=== PATIENT | female | born 1990 | race Caucasian/White ===

== ENCOUNTER 2023-12-26 17:11 | Emergency (ER) | payer MEDICAID, SELFPAY ==
[2023-12-26 17:19] VITALS: BP 150/82; PULSE 100; TEMP 36.8; O2SAT 99; BMI 43.2
[2023-12-26 17:49] VITALS: BP 153/97; PULSE 92; O2SAT 99
--- NOTE | 2023-12-26 18:03 | CT_ITS ---
The [address] [address] Patient Name: TRINY SAMUELS MRN: [id number] date: 1990 Sex: F Assigned Patient Location: ER Current Patient Location: ER Accession/Order Number: [id number] Exam Date: 12/26/2023 18:46 Report Date: 12/26/2023 20:22 At the request of: TISH FAIR Procedure: CT abdomen pelvis w con EXAM: CT abdomen pelvis w con HISTORY: Left flank/hip pain for 3 weeks. COMPARISON: 10/22/2012. TECHNIQUE: Enhanced helical acquisition obtained through the abdomen and the pelvis. FINDINGS: The visualized lung bases and the pleural spaces are clear. Prior cholecystectomy. No significant biliary ductal dilatation. The liver, spleen, pancreas, adrenal glands and the right kidney are unremarkable. 3 mm nonobstructing calculus within the superior left kidney. No enlarged lymph nodes within the abdomen or the pelvis. Small volume of free fluid within the pelvis. Normal appendix. Complex cystic structure within the left adnexa which maximally measures approximately 3.5 cm with configuration suggesting either fluid-filled dilated fallopian tube versus multiloculated cyst. CT/CT abdomen pelvis w con IMPRESSION: 1. A 3.5 cm complex left adnexal cystic structure is present. This may be secondary to multiloculated left ovarian cyst versus dilated fluid-filled fallopian tube. Follow-up assessment with ultrasonography of the pelvis is recommended. 2. Small volume of free fluid within the pelvis. 3. Subcentimeter nonobstructing left renal calculus. Electronically authenticated by: VAMSHI HUNG Date: 12/26/2023 20:22
--- NOTE | 2023-12-26 18:04 | ED_ITS ---
HPI HPI - General Adult General Chief complaint: Abdominal Pain Stated complaint: LEFT ABDOMINAL PAIN/SWELLING Time Seen by Provider: 12/26/23 17:55 Source: patient Mode of arrival: walk-in Limitations: no limitations History of Present Illness HPI narrative: This patient is a 33-year-old female who presents to the emergency department with 2 family members for evaluation of left hip and flank pain. She states symptoms have been present for the last 3 weeks. She has not been evaluated by her primary care provider. She states she has not sought care anywhere else. She denies any mechanism of injury or trauma. She initially reported abdominal pain to the triage nurse but on directly questioning, she points to pain over the left lateral hip and left posterior hip. Pain is significantly worse with movement. She has been using [id number] medications without improvement. She denies a possibility of . She has no abdominal pain, urinary symptoms, vomiting or diarrhea at this time. Related Data Previous Rx's ?Medication ?Instructions ?Recorded ciprofloxacin HCl 500 mg tablet 500 mg PO Q12H #14 tabs 12/26/23 ketorolac 10 mg tablet 10 mg PO TID PRN pain #10 tabs 12/26/23 ondansetron 4 mg disintegrating 4 mg PO Q6H PRN nausea and 12/26/23 tablet vomiting #12 tabs oxycodone-acetaminophen 5 mg-325 1 tab PO Q6H PRN pain 3 days #15 12/26/23 mg tablet (Percocet) tabs Allergies Allergy/AdvReac Type Severity Reaction Status Date / Time No Known Drug Allergies Allergy Verified 12/26/23 17:18 Opioid HPI Opioid Management Most Recent Opioid Data: Last Pain Scale 10 12/26/23 20:26 12/26/23 Review of Systems ROS Constitutional Denies: fever or chills Ears, nose, mouth, and throat Denies: throat pain or nasal congestion Cardiovascular Denies: chest pain Respiratory Denies: shortness of breath Gastrointestinal Denies: abdominal pain, nausea, vomiting or diarrhea Genitourinary Denies: painful urination Musculoskeletal Reports: joint pain; Denies: back pain, neck pain or extremity pain Integumentary/Breast Denies: rash Neurological Denies: numbness in extremities or weakness in extremities Hematologic/Lymphatic Denies: easy bruising or easy bleeding PFSH PFSH Social History (Reviewed 12/26/23 @ 18:06 by MELECIO Cabello Little interest or pleasure in doing things: not at all Feeling down, depressed, or hopeless: not at all Exam Narrative Exam Narrative: Gen.: Awake, alert, in no distress Head: Normocephalic, atraumatic ENT: Moist mucous membranes Respiratory: No respiratory distress Gastrointestinal: Abdomen is soft, nondistended and nontender to palpation; no guarding or rebound Back: No bony tenderness of the T-spine or L-spine with diffuse tenderness of the left lateral hip and left posterior hip. Pain with hip flexion of the left lower extremity. No bony point tenderness or obvious deformity. Pelvis is stable. Extremities: Moves extremities equally, pain with flexion and extension at the left lower extremity Psych: Normal mood and affect Neuro: No focal neuro deficit Skin: Warm, dry, intact Constitutional Vital Signs, click to edit/add: Last Vital Signs Temp 98.3 F 12/26/23 17:19 Pulse 86 12/26/23 20:32 Resp 18 12/26/23 20:32 BP 128/96 H 12/26/23 20:32 Pulse Ox 99 12/26/23 20:32 O2 Del Method Room Air 12/26/23 20:32 Course Vital Signs Vital signs: Vital Signs Temperature 98.3 F 12/26/23 17:19 Pulse Rate 100 H 12/26/23 17:19 Respiratory Rate 18 12/26/23 17:19 Blood Pressure 150/82 H 12/26/23 17:19 Pulse Oximetry 99 12/26/23 17:19 Oxygen Delivery Method Room Air 12/26/23 17:19 Temperature 98.3 F 12/26/23 17:19 Pulse Rate 86 12/26/23 20:32 Respiratory Rate 18 12/26/23 20:32 Blood Pressure 128/96 H 12/26/23 20:32 Pulse Oximetry 99 12/26/23 20:32 Oxygen Delivery Method Room Air 12/26/23 20:32 Medical Decision Making MDM Narrative Medical decision making narrative: Laboratory studies reviewed and noted showing the patient has a contaminated urinary tract infection, mild leukocytosis with no other acute process. CT of the abdomen and pelvis shows the patient has a 3.5 cm adnexal cystic mass, ultrasound was performed while we were waiting for the CT to result, this shows a 3.5 cm multiloculated ovarian cyst with no evidence of fluid in the fallopian tube. Patient has essentially no abdominal pain in the ER but does continue to complain of left hip pain and posterior pelvic pain. Cyst may be hemorrhagic. Although there is no evidence of active bleeding at this time. She was treated for pain, remedicated for pain and treated for urinary tract infection in the ER. She will be discharged home with pain medication, antibiotics, nausea medication and anti-inflammatories to follow-up with her [employer]. Return to the ER if symptoms change or worsen. Hemodynamically stable at time of discharge. SUPERVISED APC VISIT, PHYSICIAN ATTESTATION: Based on the medical record the care appears appropriate. ? Medical Records Medical records reviewed: Yes I reviewed the patient's medical records Lab Data Lab results reviewed: Yes I reviewed the patient's lab results Labs: Lab Results 12/26/23 12/26/23 Range/Units 18:11 18:12 WBC 13.5 H (4.0-11.0) 10^3/uL RBC 4.25 (4.20-5.40) 10^6/uL Hgb 12.9 (12.0-16.0) g/dL Hct 38.6 (36.0-48.0) % MCV 90.8 (81.0-99.0) fL MCH 30.4 (26.7-34.0) pg MCHC 33.4 (29.9-35.2) g/dL RDW 12.5 (11.0-15.0) % Plt Count 235 (150-450) 10^3/uL MPV 9.1 L (9.5-13.5) fL Neut % (Auto) 64.1 (43.0-75.0) % Lymph % (Auto) 27.4 (20.5-60.0) % [place] % (Auto) 6.2 (1.7-12.0) % Eos % (Auto) 1.4 (0.9-7.0) % Baso % (Auto) 0.4 (0.2-2.0) % Neut # (Auto) 8.7 H (1.4-6.5) 10^3/uL Lymph # (Auto) 3.7 (1.2-3.8) 10^3/uL [place] # (Auto) 0.8 (0.3-0.8) 10^3/uL Eos # (Auto) 0.2 (0.0-0.7) 10^3/uL Baso # (Auto) 0.1 (0.0-0.1) 10^3/uL Abs Immat Gran (auto) 0.07 H (0.00-0.03) 10^3/uL Imm/Tot Granulo (auto) 0.5 (0.0-0.5) % Sodium 140 (136-145) mmol/L Potassium 3.6 (3.5-5.1) mmol/L Chloride 102 (98-107) mmol/L Carbon Dioxide 24.2 (21.0-32.0) mmol/L Anion Gap 17.4 BUN 15.0 (7.0-18.0) mg/dL Creatinine 0.87 (0.55-1.02) mg/dL Est GFR ( Amer) >60 (>=60 mL/min/1.73m^2) Est GFR (Non-Af Amer) >60 (>=60 mL/min/1.73m^2) BUN/Creatinine Ratio 17.2 Glucose 112 H (74-106) mg/dL Lactate 0.8 (0.4-2.0) mmol/L Calcium 8.4 L (8.5-10.1) mg/dL Total Bilirubin 0.4 (0.2-1.0) mg/dL AST 19 (15-37) U/L ALT 27 (14-59) U/L Alkaline Phosphatase 142 H (46-116) U/L Total Protein 7.6 (6.4-8.2) g/dL Albumin 3.3 L (3.4-5.0) g/dL Globulin 4.3 g/dL Albumin/Globulin Ratio 0.8 Serum HCG, Qual Negative (NEGATIVE) Urine Color Lt. yellow (YELLOW) Urine Clarity Sl cloudy (CLEAR) Urine pH 6.5 (5.0-9.0) Ur Specific [place] 1.025 (1.005-1.025) Urine Protein Negative (NEG/TRACE) mg/dL Urine Glucose (UA) Negative (NEGATIVE) mg/dL Urine Ketones Negative (NEGATIVE) mg/dL Urine Occult Blood Small A (NEGATIVE) Urine Nitrite Negative (NEGATIVE) Urine Bilirubin Negative (NEGATIVE) Urine Urobilinogen 0.2 (0.2-1.0) EU/dL Ur Leukocyte Esterase Small A (NEGATIVE) Urine RBC 2-5 A (0-2) #/HPF Urine WBC 20-50 A (NONE SEEN) #/HPF Ur Squamous Epith Cells Many A (NONE/RARE) #/LPF Urine Crystals None seen (None Seen) #/HPF Urine Bacteria Moderate A (NONE SEEN) #/HPF Urine Casts None seen (NONE SEEN) #/LPF Urine Mucus Small A (NONE SEEN) Ur Culture Indicated? Yes Imaging Data CT scan - abdomen: Attestation: I have reviewed the pertinent imaging results. Radiologist's impression: ITS Impressions Abdomen/Pelvis CT 12/26/23 18:03 IMPRESSION: 1. A 3.5 cm complex left adnexal cystic structure is present. This may be secondary to multiloculated left ovarian cyst versus dilated fluid-filled fallopian tube. Follow-up assessment with ultrasonography of the pelvis is recommended. 2. Small volume of free fluid within the pelvis. 3. Subcentimeter nonobstructing left renal calculus. Electronically authenticated by: VAMHSI HUNG Date: 12/26/2023 20:22 Transvaginal US 12/26/23 19:31 IMPRESSION: 1. No acute sonographic abnormalities in the pelvis. 2. Left adnexal complex cyst. These may represent hemorrhagic cysts. Recommend follow-up ultrasound in 2-3 months to ensure resolution. Electronically authenticated by: DEVORAH LAZARO Date: 12/26/2023 21:24 Discharge Plan Discharge Chief Complaint: Abdominal Pain Clinical Impression: Complex cyst of left ovary, UTI (urinary tract infection) Patient Disposition: Home, Self-Care Time of Disposition Decision: 20:19 Condition: Good Prescriptions / Home Meds: New ciprofloxacin HCl 500 mg tablet 500 mg PO Q12H Qty: 14 0RF ketorolac 10 mg tablet 10 mg PO TID PRN (Reason: pain) Qty: 10 0RF oxycodone-acetaminophen [Percocet] 5-325 mg tablet 1 tab PO Q6H PRN (Reason: pain) 3 Days Qty: 15 0RF Rx Instructions: DX: N83.20 ondansetron 4 mg tablet,disintegrating 4 mg PO Q6H PRN (Reason: nausea and vomiting) Qty: 12 0RF Print Language: Lao Instructions: Ovarian Cyst (ED), Urinary Tract Infection in Women (ED) Referrals: Physician,Non-Staff, MD [Primary Care Provider] - 1 week Discharge Date/Time: 12/26/23 20:38
[2023-12-26 18:18] LABS: Basophils Absolute Auto 0.1 10^3/uL (0.0-0.1); Basophils Percent Auto 0.4 % (0.2-2.0); Eosinophils Absolute Auto 0.2 10^3/uL (0.0-0.7); Eosinophils Percent Auto 1.4 % (0.9-7.0); Hematocrit 38.6 % (36.0-48.0); Hemoglobin 12.9 g/dL (12.0-16.0); Immature Granulocytes Abs Auto 0.07 10^3/uL (0.00-0.03); Immature Granulocytes Pct Auto 0.5 % (0.0-0.5); Lymphocytes Absolute Auto 3.7 10^3/uL (1.2-3.8); Lymphocytes Percent Auto 27.4 % (20.5-60.0); Mean Corpuscular HGB Conc 33.4 g/dL (29.9-35.2); Mean Corpuscular Hemoglobin 30.4 pg (26.7-34.0); Mean Corpuscular Volume 90.8 fL (81.0-99.0); Mean Platelet Volume 9.1 fL (9.5-13.5); Monocytes Absolute Auto 0.8 10^3/uL (0.3-0.8); Monocytes Percent Auto 6.2 % (1.7-12.0); Neutrophils Absolute Auto 8.7 10^3/uL (1.4-6.5); Neutrophils Percent Auto 64.1 % (43.0-75.0); Platelet Count 235 10^3/uL (150-450); Red Blood Count 4.25 10^6/uL (4.20-5.40); Red Cell Distribution Width 12.5 % (11.0-15.0); White Blood Count 13.5 10^3/uL (4.0-11.0)
[2023-12-26 18:19] LABS: Bilirubin Urine NEGATIVE (NEGATIVE); Blood Urine SMALL (NEGATIVE); Clarity Urine SL CLOUDY (CLEAR); Color Urine LT. YELLOW (YELLOW); Glucose Urine UA NEGATIVE (NEGATIVE); Ketones Urine NEGATIVE (NEGATIVE); Leukocyte Esterase Urine SMALL (NEGATIVE); Nitrite Urine NEGATIVE (NEGATIVE); Protein Urine NEGATIVE (NEG/TRACE); Specific Gravity Urine 1.025 (1.005-1.025); Urobilinogen Urine 0.2 EU/dL (0.2-1.0); pH Urine 6.5 (5.0-9.0)
[2023-12-26 18:20] LABS: Urine Microscopic Indicated YES
[2023-12-26 18:26] LABS: Bacteria Urine MODERATE #/HPF (NONE SEEN); Cast Seen? NONE SEEN #/LPF (NONE SEEN); Crystals Seen? None Seen #/HPF (None Seen); Mucus Urine SMALL (NONE SEEN); Squamous Epithelial Cell Urine MANY #/LPF (NONE/RARE); Urine Culture Indicated YES; WBC Urine 20-50 #/HPF (NONE SEEN)
[2023-12-26 18:32] LABS: HCG Qualitative NEGATIVE (NEGATIVE); Internal Control Within Normal Limits
[2023-12-26 18:33] LABS: Alanine Aminotransferase 27 U/L (14-59); Albumin Globulin Ratio 0.8; Albumin Level 3.3 g/dL (3.4-5.0); Alkaline Phosphatase 142 U/L (46-116); Anion Gap 17.4; Aspartate Amino Transferase 19 U/L (15-37); BUN Creatinine Ratio 17.2; Bilirubin Total 0.4 mg/dL (0.2-1.0); Calcium 8.4 mg/dL (8.5-10.1); Carbon Dioxide 24.2 mmol/L (21.0-32.0); Chloride 102 mmol/L (98-107); Estimated GFR (African America >60 (>=60 mL/min/1.73m^2); Estimated GFR (Non-African Ame >60 (>=60 mL/min/1.73m^2); Globulin 4.3 g/dL; Glucose 112 mg/dL (74-106); Potassium 3.6 mmol/L (3.5-5.1); Sodium 140 mmol/L (136-145); Total Protein 7.6 g/dL (6.4-8.2)
[2023-12-26 18:38] LABS: Lactate/Lactic Acid 0.8 mmol/L (0.4-2.0)
[2023-12-26] MEDS: KETOROLAC TROMETHAMINE 30 MG/ML VIAL IVP (18:38)
[2023-12-26] MEDS: ORPHENADRINE 60 MG/ 2 ML VIAL IV (18:39)
[2023-12-26] MEDS: MORPHINE SULFATE 4 MG/ML VIAL IV (18:39)
--- NOTE | 2023-12-26 19:31 | US_ITS ---
The [address] [address] Patient Name: TRINY SAMUELS MRN: [id number] date: 1990 Sex: F Assigned Patient Location: ER Current Patient Location: Accession/Order Number: [id number] Exam Date: 12/26/2023 19:48 Report Date: 12/26/2023 21:24 At the request of: TISH FAIR Procedure: US pelvis transvaginal EXAM: Pelvic ultrasound ultrasound CLINICAL INDICATION: ovarian cyst/ left pelvic pain. COMPARISON: CT scan from today TECHNIQUE: Transvaginal pelvic ultrasound was performed with grayscale and color Doppler images were obtained. FINDINGS: Uterus: Uterus measures 8.2 x 4.1 x 4.4 cm. No abnormal uterine masses. Endometrium measures 12 mm thickness. Nabothian cysts. Right ovary was unable to be visualized due to overlying bowel gas. Left ovary: Measures 3.8 x 3.7 x 3.6 cm. Normal color flow and Doppler arterial and venous waveforms. No ovarian masses. Left ovarian cystic lesions, largest of these measures up to 3.1 x 2.0 x 3.0 cm and has heterogenous internal echoes. No internal vascularity evident within the cystic lesions on the provided images. Small amount of free fluid in the pelvis. US/US pelvis transvaginal IMPRESSION: 1. No acute sonographic abnormalities in the pelvis. 2. Left adnexal complex cyst. These may represent hemorrhagic cysts. Recommend follow-up ultrasound in 2-3 months to ensure resolution. Electronically authenticated by: DEVORAH LAZARO Date: 12/26/2023 21:24
[2023-12-26] MEDS: HYDROMORPHONE HCL 0.5 MG/0.5 ML SYRINGE IV (20:26)
[2023-12-26] MEDS: CIPROFLOXACIN HCL 500 MG TABLET PO (20:27)
[2023-12-26 20:32] VITALS: BP 128/96; PULSE 86; O2SAT 99
== END 2023-12-26 20:38 | disposition home or self-care (01) ==
PROVIDERS: Physician Assistant; Emergency Provider Emergency Medicine Emergency Medical Services
DX: N39.0 Urinary tract infection, site not specified (principal); N83.292 Other ovarian cyst, left side; M25.552 Pain in left hip
CPT/HCPCS: 36415; 74177; 76830; 80053; 81001; 83605; 84703; 85025; 87086; 96374; 96375; 99285; J1171; J1885; J2270; J2360; Q9967

== ENCOUNTER 2024-01-06 11:17 | Emergency (ER) | payer MEDICAID, MEDICARE, SELFPAY ==
[2024-01-06 11:23] VITALS: BP 161/90; PULSE 95; TEMP 36.8; O2SAT 99; BMI 38.8
--- OUTSIDE RECORDS SUMMARY | 2024-01-06 11:27 | XMS_ITS | CCD ---
Author Organization [facility] Care Team Providers Care Tree Trimming Supervisor Name Role Phone Katlin Fernandez Primary Care Provider [phone] KATLIN FERNANDEZ Primary Care Unavailable DALE MONTOYA Attending Unavailable Katlin Fernandez Primary Care Provider KATLIN FERNANDEZ Primary Care Physician Aleena Ryder Unavailable Katlin Fernandez Unavailable Claudia Rowe Unavailable DO Katlin Fernandez Primary Care Provider [phone] DO Katlin Fernandez Attending Provider [phone] DO Katlin Fernandez Primary Care Provider GINA Medina Emergency Provider DO Katlin Fernandez Primary Care Provider NELSON Raygoza-TAMIR Pricilla E Emergency Provider Katlin Fernandez MD Primary Care Provider [phone] DO Katlin Fernandez Primary Care Provider [phone] LIZET Raygoza Pricilla E Emergency Provider [phone] JANNET Myles Emergency Provider DO Tate Marcial Emergency Provider [phone] DO Anthony Huang Attending Provider [phone] DO Brianna Fernandeze Vida Primary Care Provider Idalmis CLEANER WALL-TAMIR Pricilla E Emergency Provider DO Jason Benton Emergency Provider [phone] Fernandez, DO Katlin B Primary Care Provider MD Roya German Emergency Provider NO FAMILY, PHYSICIAN Primary Care Provider Unava ilMD Kanu Yanez Emergency Provider [phone] MAE COLIN Attending Unavailable FERNANDEZ, KATLIN Primary Care Physician FERNANDEZ, KATLIN Primary Care Unavailable Jass Meek Attending Unavailable Juan Antonio Hooper Attending Unavailable FERNANDEZ, KATLIN Primary Care Unavailable FERNANDEZ, KATLIN Primary Care Unavailable Jass Meek. Attending Unavailable FERNANDEZ, KATLIN Primary Care Unavailable Jorge Oliva Attending Unavailable DokkenDO Patel A Attending Unavailable FERNANDEZ, KATLIN Primary Care Unavailable FERNANDEZ, KATLIN Primary Care Unavailable DO Jorge Oliva A Attending Unavailable DoDO Jorge florez A Attending Unavailable FERNANDEZ, KATLIN Primary Care Unavailable Fernandez, DO Katlin B Primary Care Provider DO Amaury Galindo Emergency Provider Unavai tiffany FERNANDEZ, KATLIN B Primary Care Unavailable JAELYN RENAE Attending Unavailable Kanu Brush Admitting Unavailable Kanu Brush Attending Unavailable NO FAMILY, PHYSICIAN Primary Care Unavailable Fernandez, Katlin B Primary Care Unavailable Amaury Galindo Admitting Unavailable Amaury Galindo Attending Unavailable Fernandez, Katlin B Primary Care Unavailable Amaury Galindo Admitting Unavailable Amaury Galindo Attending Unavailable Fernandez, Katlin B Primary Care Unavailable Carol, Ar Admitting Unavailable Carol, Ar Attending Unavailable Fernandez, Katlin B Primary Care Unavailable Bullimore, Pricilla E Admitting Unavailable Bullimore, Pricilla E Attending Unavailable Bullimore, Pricilla E Admitting Unavailable Bullimore, Pricilla E Attending Unavailable Fernandez, Katlin B Primary Care Unavailable Fernandez, Katlin B Primary Care Unavailable Elpidio Myles Admitting Unavailable Elpidio Myles Attending Unavailable Tate Marcial Admitting Unavailable Tate Marcial Attending Unavailable Fernandez, Katlin B Primary Care Unavailable Tate Marcial Attending Unavailable Katlin Fernandez Primary Care Unavailable Tate Marcial Admitting Unavailable Reina, Anthony Attending Unavailable Katlin Fernandez Primary Care Unavailable Reina, Anthony Admitting Unavailable Katlin Fernandez Primary Care Unavailable Jason Benton Admitting Unavailable Jason Benton Attending Unavailable Katlin Fernandez Primary Care Unavailable Roya German Admitting Unavailable Roya German Attending Unavailable Katlin Fernandez MD Primary Care Provider [phone] HILLS, KAYLEEN D Attending Unavailable HILLS, KAYLEEN D Referring Unavailable HILLS, KAYLEEN D Referring Unavailable HILLS, KAYLEEN D Referring Unavailable HILLS, KYALEEN D Attending Unavailable DAJOMAR MCGEE Attending Unavail able HILLS, KAYLEEN D Referring Unavailable DEPJEFF TREVINO Attending Unavailable HILLS, KAYLEEN D Referring Unavailable WENGERDYARIEL Attending Unavailable HILLS, KAYLEEN D Referring Unavailable HILLS, KAYLEEN D Attending Unavailable HILLS, KAYLEEN D Referring Unavailable HILLS, KAYLEEN D Referring Unavailable VISCI, ANTHONY A Attending Unavailable VISCI, ANTHONY A Referring Unavailable HILLS, KAYLEEN D Attending Unavailable HILLS, KAYLEEN D Referring Unavailable HILLS, KAYLEEN D Attending Unavailable VISCI, ANTHONY A Attending Unavailable VISCI, ANTHONY A Referring Unavailable VISCI, ANTHONY A Attending Unavailable Allergies Allergy Classification Reported Allergen(s) Allergy Type Date of Onset Reaction(s) Facility (20 sources) cyclobenzaprine; Translations: [cyclobenzaprine] Drug Allergy 02-03-20 15 Other, GI intolerance [place], [place] (8 sources) Naproxen Drug Allergy 03-07-19 16 [place] (20 sources) QUEtiapine; Translations: [quetiapine] Drug Allergy 11-25-19 11 anaphylaxis [place], [place] (20 sources) Valproate; Translations: [DIVALPROEX SODIUM] Drug Allergy 11-25-19 11 Swelling [place] (1 source) Acetaminophen / HYDROcodone Drug Allergy 03-09-19 21 Swelling [place] (20 sources) Acetaminophen; Translations: [acetaminophen] Drug Allergy 04-24-19 20 Pharyngeal swelling (finding) [facility] (20 sources) Acetaminophen / HYDROcodone; Translations: [acetaminophen-hyd rocodone] Drug Allergy [facility] (20 sources) Amoxicillin; Translations: [amoxicillin] Drug Allergy 04-24-19 20 Facial swelling (finding) [facility] Other (20 sources) Cephalexin; Translations: [cephalexin] Drug Allergy 07-27-19 23 hives, Other [facility] Other (20 sources) Doxycycline; Translations: [doxycycline] Drug Allergy hives [facility] (20 sources) drospirenone / Ethinyl Estradiol; Translations: [drospirenone-ethi nyl estradiol] Drug Allergy [facility] (20 sources) Egg; Translations: [Eggs] Drug allergy [facility] (20 sources) Fish - dietary; Translations: [Fish] Drug allergy [facility] (20 sources) Ketorolac; Translations: [ketorolac] Drug Allergy Eruption of skin (disorder) [facility] (20 sources) predniSONE; Translations: [prednisone] Drug Allergy 04-05-19 16 hives (medrol ok) [facility] Other Comment on above: Hives Hives (20 sources) Valproate; Translations: [divalproex sodium] Drug Allergy anaphylaxis [facility] Other (20 sources) Milk Products; Translations: [Milk Products] Drug allergy [facility] (20 sources) casein allergenic extract Drug Allergy anaphylaxis [facility] Other (20 sources) Codeine / guaiFENesin Drug Allergy itching [facility] Other (20 sources) cyclobenzaprine; Translations: [Flexeril] Drug Allergy hives [facility] (20 sources) gabapentin Drug Allergy 07-27-19 23 hives, Unknown [facility] (20 sources) Lactose; Translations: [lactose] Drug Allergy 04-06-19 24 vomiting [facility] (20 sources) shrimp allergenic extract Drug Allergy hives [facility] Other (20 sources) Bee Sting Drug allergy anaphylaxis [facility] Other (15 sources) Caseins; Translations: [CASEIN] Drug Allergy 02-03-20 Swelling of Lip/Tongue/Thr oat [facility] (17 sources) HYDROcodone; Translations: [hydrocodone] Drug Allergy 04-24-19 Vomiting [facility] (14 sources) Ibuprofen; Translations: [ibuprofen] Drug Allergy 04-24-19 Unknown Reaction [facility] (14 sources) QUEtiapine; Translations: [quetiapine] Drug Allergy 04-24-19 Swelling of Lip/Tongue/Thr oat, Swelling of Lip/Tongue/Thr oat, anaphylaxis, anaphylaxis [facility] (1 source) Caseins Drug Allergy 07-04-19 anaphylaxis [facility] (14 sources) Codeine; Translations: [codeine] Drug Allergy 04-06-19 itching, Swelling of Lip/Tongue/Thr oat [facility] (15 sources) guaiFENesin; Translations: [guaifenesin] Drug Allergy 04-06-19 itching [facility] (12 sources) Shrimp product; Translations: [shrimp] Allergy to substance 04-06-19 [facility] (12 sources) Valproate; Translations: [valproic acid] Drug Allergy 04-06-19 anaphylaxis [facility] (12 sources) bee venom protein (honey bee); Translations: [bee venom protein (honey bee)] Allergy to substance 04-06-19 anaphylaxis [facility] (3 sources) Acetaminophen / Codeine Drug Allergy 07-27-19 [facility] (7 sources) Penicillins; Translations: [PENICILLINS] Drug Intolerance 02-03-20 15 Other, GI intolerance [facility] (6 sources) Fish-Derived Products Drug Allergy 07-27-19 Other [facility] (6 sources) Milk-Related Compounds Drug Allergy 02-03-20 Swelling, Other [facility] (1 source) cyclobenzaprine; Translations: [CYCLOBENZAPRINE HCL] Drug Allergy 02-03-20 [facility] (1 source) Fish derivative; Translations: [FISH DERIVED] Propensity to adverse reactions to drug (disorder) 05-02-19 [facility] (1 source) Milk; Translations: [MILK] Propensity to adverse reactions to food (disorder) 05-02-19 [facility] (2 sources) QUEtiapine; Translations: [SEROquel] Drug Allergy [facility] (1 source) Acetaminophen Drug Allergy 10-03-19 [facility] (1 source) Amoxicillin Drug Allergy 10-03-19 [facility] (1 source) Cephalexin Drug Allergy 10-03-19 [facility] (1 source) cyclobenzaprine Drug Allergy 10-03-19 [facility] (1 source) gabapentin Drug Allergy 10-03-19 [facility] (1 source) predniSONE Drug Allergy 10-03-19 [facility] (1 source) Valproate Drug Allergy 10-03-19 [facility] (3 sources) Acetaminophen Drug Allergy 05-12-19 [facility] Medications Current Medications Medication Drug Class(es) Dates Sig (Normalized) Sig (Original) Acetaminophen (17 sources) Start: 12-14-2019 acetaminophen (TYLENOL) tablet 650 mg Start: 12-13-2019 End: 12-13-2019 acetaminophen (TYLENOL) tabl et 1,000 mg Start: 10-29-2019 End: 10-29-2019 acetaminophen (TYLENOL) tabl et 1,000 mg Start: 01-10-2019 acetaminophen (TYLENOL) tablet 650 mg Start: 07-10-2017 End: 07-17-2017 take 500-1000 mg by mouth three times daily Acetaminophen (Tylenol Extra Strength) 500 mg Tablet Discontinued 500 - 1000 MG PO Three times daily July 10, 2017 12:00am July 17, 2017 9:11pm acetaminophen 325 mg / oxyCODONE hydrochloride 5 mg oral tablet (20 sources) Opioid Agonist Start: 09-20-2023 take 1 tablet by mouth every four to six hours Oxycodone-Acetaminophen (Percocet) 5-325 mg tablet Active 1 TAB PO EVERY 4-6 HOURS 4 1 September 20, 2023 Start: 06-22-2022 End: 09-05-2023 take 1 tablet by mouth every six hours as needed for pain oxyCODONE-acetaminophen (Percocet) 5-325 MG tablet TAKE 1 TABLET BY MOUTH EVERY 6 HOURS NEEDED FOR PAIN FOR 3 DAYS 05/22/2023 Active Start: 09-13-2021 End: 09-16-2021 Percocet 5 mg-325 mg oral ta blet 1 tab(s), Oral, q6hr for 3 day(s), 12 tab(s), Refill(s) 0 Start Date: 09/13/21 Stop Date: 09/16/21 Status: Ordered Start: 12-14-2019 End: 12-17-2019 oxyCODONE-acetaminophen (PER COCET) 5-325 MG per tablet 1 tablet Start: 01-09-2019 End: 01-10-2019 take 1 tablet by mouth every four hours as needed for pain 1 tablet, Oral, EVERY 4 HOURS PRN, Pain Severe (7-10), Starting [facility] 01/09/19 at 0325 Maximum dose of acetaminophen is 4000 mg from all sources in 24 hours. Start: 01-09-2019 End: 01-09-2019 oxyCODONE-acetaminophen (PER COCET) 5-325 MG per tablet 1 tablet Start: 12-19-2018 End: 12-24-2018 take 1-2 tablets by mouth every six hours as needed for pain oxyCODONE-acetaminophen (PERCOCET) 5-325 MG per tablet Indications: Pyelonephritis , Cyst of left ovary Take 1-2 tablets by mouth every 6 hours as needed for Pain for up to 5 days. 6 tablet 0 12/19/2018 12/24/2018 Active Start: 01-21-2018 End: 01-25-2018 take 1 tablet by mouth every six hours Oxycodone-Acetaminophen (Percocet) 5-325 mg tablet Discontinued 1 TAB PO Q6H 15 4 January 21, 2018 January 25, 2018 1:02am [id number] 200 actuat albuterol 0.09 mg/actuat metered dose inhaler (20 sources) beta2-Adrenergic Agonist Start: 05-22-2023 Albut rayne Sulfate Active 2.5 MG INHALATION As Directed May 22, 2023 12:00am Start: 05-22-2023 Albuterol Sulf ate Active 2 PUFF INHALATION As Directed May 22, 2023 12:00am Start: 05-16-2023 End: 05-22-2023 Albuterol Sulfate Discontinu ed 2.5 MG INHALATION every 6 to 8 hours May 16, 2023 12:00am May 22, 2023 11:54am Start: 12-24-2020 take 2.5 mg by inhal ation every six hours albuterol 0.083% Inh Claire 3 mL UD 2.5 mg = 3 mL, Inhalation, q6hr, # 25 EA, Refills(s) 0, Pharmacy: [id number], 150, cm, 12/24/20 11:53:00 EDT, Height/Length Dosing, 74, kg, 12/24/20 11:53:00 EDT, Weight Dosing Start Date: 12/24/20 Status: Ordered Start: 04-24-2019 End: 05-22-2023 take 1 puff(s) by inhalation every six hours Albuterol Sulfate Discontinued 2 PUFF INHALATION Q6H 18 April 24, 2019 1:00am May 22, 2023 11:54am Start: 01-09-2019 albuterol sulf ate HFA 108 (90 Base) MCG/ACT inhaler 2 puff Start: 01-09-2019 2.5 mg, Nebuli zation, EVERY 4 HOURS PRN, Shortness of Breath, Starting Suzan 01/09/19 at 0325 Start: 10-27-2018 End: 05-22-2023 take 2.5 mg by inhalation every four to six hours Albuterol Sulfate Discontinued 2.5 MG INHALATION EVERY 4-6 HOURS 6 October 27, 2018 12:00am May 22, 2023 11:51am dispense 2 to go Start: 09-29-2018 End: 05-22-2023 Albuterol Sulfate (Ventolin Hfa) 90 mcg/actuation HFA aerosol inhaler Discontinued 2 INH INHALATION EVERY 4-6 HOURS 6.7 September 29, 2018 12:00am May 22, 2023 11:52am Start: 02-02-2017 take 2.5 mg by inhal ation every six hours albuterol 0.083% Inh Claire 3 mL 2.5 mg, 3 mL, NEB, q6hr Shortness of breath or wheezing, Refill(s) 0 Start Date: 02/02/17 Status: Ordered Start: 02-02-2017 take 2.5 mg by inhal ation every six hours albuterol 0.083% Inh Claire 3 mL 2.5 mg, 3 mL, NEB, q6hr Shortness of breath or wheezing, Refill(s) 0 Start Date: 02/02/17 Status: Ordered Start: 02-02-2017 take 2 puff(s) by in halation four times daily ProAir HFA 90 mcg/inh inhalation aerosol 2 puff(s), Inhalation, QID Shortness of breath or wheezing, Refill(s) 0 Start Date: 02/02/17 Status: Ordered Start: 11-26-2016 End: 03-25-2019 Albuterol Sulfate Discontinu ed 1 INH INHALATION Four times daily November 26, 2016 12:00am March 26, 2019 12:32am Start: 05-17-2015 Albuterol Sulf ate (2.5 MG/3ML) 0.083% 3 ml Inhalation Three times a day for 30 days Apr, Active Start: 05-17-2015 Albuterol Sulf ate (2.5 MG/3ML) 0.083% 3 ml Inhalation Three times a day for 30 days Apr, Active Start: 05-17-2015 albuterol (2.5 M G/3ML) 0.083% nebulizer solution Take 2.5 mg by nebulization as needed. Active albuterol HFA 90 mcg/act inhaler Inhale 2 puffs if needed Active take 2 puff(s) by in halation every four hours as needed Albuterol Sulfate HFA 2 puffs as needed Inhalation q4h PRN for 30 days Not-Taking take 2 puff(s) by in halation every four hours as needed Albuterol Sulfate HFA 2 puffs as needed Inhalation q4h PRN for 30 days Active albuterol (PROVE NTIL;VENTOLIN) 90 MCG/ACT inhaler Inhale 2 puffs into the lungs as needed. 0 Active albuterol sulfate HFA 108 (90 Base) MCG/ACT inhaler 2 puff (1 source) Start: 12-14-2019 2 puff, Inhala tion, PRN, Shortness of Breath, Starting 12/14/19 at 0331 azithromycin 250 mg oral tablet (20 sources) Macrolide Antimicrobial Start: 04-11-2022 Azithromycin 250 MG 2 tablets on the first day, then 1 tablet daily for 4 days Orally Once a day for 5 day(s) Mar, Active Start: 01-09-2022 End: 01-14-2022 Zithromax Z-Juan 250 mg oral tablet = 1 packet(s), Oral, As Directed, as directed on package labeling, X 5 day(s), # 6 tab(s), Refills(s) 0, Pharmacy: [facility] #[id number], 150, cm, 01/09/22 18:47:00 EST, Height/Length Dosing, 141, kg, 01/09/22 18:47:00 EST, Weight Dosing Start Date: 01/09/22 Stop Date: 01/14/22 Status: Ordered Start: 01-21-2018 End: 02-04-2018 take 1 tablet by mouth once daily Azithromycin (Zithromax) 250 mg tablet Discontinued 250 MG PO daily 4 January 21, 2018 1:00am February 04, 2018 12:19pm First dose given in ED Breo Ellipta 200-25 MCG/INH (20 sources) Start: 10-11-2018 take 1 puff(s) by inhalation once daily Breo Ellipta 200-25 MCG/INH 1 puff Inhalation Once a day for 30 days Sep, Not-Taking Start: 10-11-2018 take 1 puff(s) by in halation once daily Breo Ellipta 200-25 MCG/INH 1 puff Inhalation Once a day for 30 days Sep, Active cefTRIAXone (ROCEPHIN) 2 g I VPB in D5W 50ml minibag (2 sources) Start: 12-15-2019 cefTRIAXone (R OCEPHIN) 2 g IVPB in D5W 50ml minibag Start: 01-09-2019 End: 01-10-2019 cefTRIAXone (ROCEPHIN) 2 g I VPB in D5W 50ml minibag cephalexin 500 mg oral capsule (15 sources) Cephalosporin Antibacterial Start: 12-18-2019 End: 12-28-2019 take 1 capsule by mouth four times daily cephALEXin (KEFLEX) 500 MG capsule Take 1 capsule by mouth 4 times daily for 10 days 40 capsule 0 12/18/2019 12/28/2019 Active Start: 12-19-2018 End: 12-26-2018 take 1 capsule by mouth four times daily cephALEXin (KEFLEX) 500 MG capsule Take 1 capsule by mouth 4 times daily for 7 days 28 capsule 0 12/19/2018 12/26/2018 Active Start: 03-01-2018 End: 05-07-2018 take 1 capsule by mouth four times daily Cephalexin (Keflex) 500 mg capsule Discontinued 500 MG PO Four times daily 40 March 01, 2018 1:00am May 07, 2018 11:24pm cetirizine hydrochloride 10 mg chewable tablet (6 sources) Histamine-1 Receptor Antagonist cetirizine (ZyrTEC) 10 MG chewable tablet Chew Daily. Active ciprofloxacin 500 mg oral tablet (2 sources) Quinolone Antimicrobial Start: 10-04-19 take 1 tablet by mouth every two hours Ciprofloxacin Hcl (Cipro) 500 mg tablet Active 500 MG PO Twice daily 08 09October 04, 2023 12:00am administer dose at least 2 hrs before/6 hrs after dairy products, calcium, zinc, and/or iron-containing products Start: 01-09-2019 End: 01-10-2019 ciprofloxacin (CIPRO) IVPB 4 00 mg clindamycin 300 mg oral capsule (15 sources) Lincosamide Antibacterial Start: 07-21-2021 End: 07-31-2021 take 1 capsule by mouth every eight hours clindamycin 300 mg oral cap 300 mg = 1 cap(s), Oral, q8hr, X 10 day(s), # 30 cap(s), Refills(s) 0, [facility], 150, cm, 07/20/21 23:23:00 EDT, Height/Length Dosing, 70, kg, 07/20/21 23:23:00 EDT, Weight Dosing Start Date: 07/21/21 Stop Date: 07/31/21 Status: Ordered Start: 03-26-2019 End: 04-24-2019 take 300 mg by mouth four times daily Clindamycin Hcl Discontinued 300 MG PO Four times daily 40 March 26, 2019 1:00am April 24, 2019 12:24pm dicyclomine hydrochloride 10 mg oral capsule (20 sources) Anticholinergic Start: 08-27-2023 End: 09-03-2023 take 1 capsule by mouth four times daily Bentyl 10 mg Cap 10 mg = 1 cap(s), Oral, QID, X 7 day(s), # 28 cap(s), Refills(s) 0, Pharmacy: [facility] #[id number], 150, cm, 08/27/23 19:10:00 EDT, Height/Length Dosing, 95.7, kg, 08/27/23 19:10:00 EDT, Weight Dosing Start Date: 08/27/23 Stop Date: 09/03/23 Status: Ordered Start: 07-21-2023 End: 09-20-2023 take 20 mg by mouth twice daily Dicyclomine Discontinu ed 20 MG PO Twice daily 2 July 21, 2023 12:00am September 20, 2023 12:46am Start: 04-06-2021 take 2 capsules by m outh four times daily Bentyl 10 mg Cap 20 mg = 2 cap(s), Oral, QID, # 20 cap(s), Refills(s) 0, [facility], 149, cm, 04/06/21 9:58:00 EST, Height/Length Dosing, 85, kg, 04/06/21 9:58:00 EST, Weight Dosing Start Date: 04/06/21 Status: Ordered Start: 07-19-2017 End: 08-18-2017 take 20 mg by mouth four times daily Dicyclomine Discontinued 20 MG PO Four times daily 120 July 19, 2017 12:00am August 18, 2017 12:02am docusate sodium 100 mg oral capsule (1 source) Start: 01-10-2019 docusate sodiu m (COLACE) capsule 100 mg 0.4 ml enoxaparin sodium 100 mg/ml prefilled syringe (2 sources) Low Molecular Weight Heparin Start: 12-14-2019 inject 40 mg by subcutaneous injection once daily 40 mg, Subcutaneous, DAILY, First dose on 12/14/19 at 0900 Start: 01-09-2019 inject 40 mg by subc utaneous injection once daily 40 mg, Subcutaneous, DAILY, First dose on Suzan 01/09/19 at 0900 [id number] 0.3 ml EPINEPHrine 1 mg/ml auto-injector (20 sources) alpha-Adrenergic Agonist, beta-Adrenergic Agonist, Catecholamine Start: 11-24-2020 EpiPen 2-Juan 0.3 MG/0.3ML as directed Injection as needed for anaphylactic reaction for 30 days Oct, Active ergocalciferol 98303 unt oral capsule (4 sources) Provitamin D2 Compound Start: 12-22-2019 take 1 capsule by mouth every week vitamin D (ERGOCALCIFEROL) 1.25 MG (12881 UT) CAPS capsule Take 1 capsule by mouth once a week 8 capsule 0 12/22/2019 Active Start: 12-22-2019 take 1 capsule by mo uth every week vitamin D (ERGOCALCIFEROL) 1.25 MG (66188 UT) CAPS capsule Take 1 capsule by mouth once a week 8 capsule 0 12/22/2019 Active Start: 12-15-2019 vitamin D (ERG OCALCIFEROL) capsule 50,000 Units ethinyl estradiol 0.035 mg / norgestimate 0.25 mg oral tablet (2 sources) Progestin, Estrogen Start: 01-02-2024 End: 01-01-2025 take 1 tablet by mouth once daily norgestimate-ethinyl estradiol (Sprintec 28) 0.25-35 MG-MCG tablet Indications: Menometrorrhagia Take 1 tablet by mouth Daily Continuous active pills only 112 tablet 4 01/02/2024 01/01/2025 Active 30 actuat fluticasone furoate 0.2 mg/actuat / vilanterol 0.025 mg/actuat dry powder inhaler (15 sources) Corticosteroid, beta2-Adrenergi c Agonist Start: 10-11-2018 take 1 puff(s) by inhalation once daily Breo Ellipta 200-25 MCG/INH 1 puff Inhalation Once a day for 30 days Sep, Active Start: 10-11-2018 Indomethacin (20 sources) Nonsteroidal Anti-inflammatory Drug Start: 02-14-2019 indomethacin Refills(s) 0 Start Date: 02/14/19 Status: Ordered levocetirizine dihydrochloride 5 mg oral tablet (20 sources) Histamine-1 Receptor Antagonist Start: 03-02-2022 take 2 tablets by mouth every twenty-four hours Xyzal 5 MG 2 tablets Orally Once a day for 90 days Feb, Active meloxicam 15 mg oral tablet (20 sources) Nonsteroidal Anti-inflammatory Drug Start: 05-11-2021 take 1 tablet by mouth once daily meloxicam 15 mg oral tablet 15 mg = 1 tab(s), Oral, Daily, # 30 tab(s), Refills(s) 0 Start Date: 09/13/21 Status: Ordered metFORMIN hydrochloride 500 mg oral tablet (20 sources) Biguanide Start: 02-13-2019 metformin 500 mg oral tablet 500 mg = 1 tab(s), Oral, As Directed, Refills(s) 0 Start Date: 02/13/19 Status: Ordered METFORMIN HCL PO Take by mouth 0 Active methylPREDNISolone 4 mg oral tablet (8 sources) Corticosteroid Start: 04-11-2022 Medrol (Juan) 4 MG as directed Orally for 6 days Mar, Active Miralax 3350 17 gram packet (5 sources) Start: 07-26-2018 Miralax 3350 1 7 gram packet 17 gram, Oral, Daily, # 12 EA, Refills(s) 0 Start Date: 07/26/18 Status: Ordered mupirocin 0.02 mg/mg topical ointment (20 sources) RNA Synthetase Inhibitor Antibacterial Start: 05-23-2018 mupirocin Top 2% Oint 1 arely, Topical, TID, 15 gram, Refill(s) 0 Start Date: 05/23/18 Status: Ordered Start: 05-23-2018 mupirocin Top 2% Oint 1 arely, Topical, TID, 15 gram, Refill(s) 0 Start Date: 05/23/18 Status: Ordered naproxen 500 mg oral tablet (20 sources) Nonsteroidal Anti-inflammatory Drug Start: 06-22-2022 take 1 tablet by mouth every twelve hours naproxen 375 mg Tab 375 mg = 1 tab(s), Oral, q12hr, # 14 tab(s), Refills(s) 0, [facility]: [id number], 149, cm, 06/22/22 11:45:00 EDT, Height/Length Dosing, 70, kg, 06/22/22 11:45:00 EDT, Weight Dosing Start Date: 06/22/22 Status: Ordered Start: 03-26-2019 End: 04-06-2023 take 1 tablet by mouth twice daily Naproxen (Naprosyn) 500 mg tablet Discontinued 500 MG PO Twice daily April 24, 2019 1:21pm April 06, 2023 2:52pm Start: 07-21-2018 End: 09-29-2018 take 500 mg by mouth twice daily Naproxen Discontinued 500 MG PO Twice daily August 19, 2018 12:00am September 29, 2018 7:03am Start: 07-01-2018 End: 08-19-2018 take 1 tablet by mouth every twelve hours at mealtime Naproxen (Naprosyn) 500 mg Tablet Discontinued 500 MG PO Q12H July 01, 2018 12:00am August 19, 2018 9:41am administer with food or milk omeprazole 40 mg delayed release oral capsule (20 sources) Proton Pump Inhibitor Start: 07-03-2022 Omeprazole 40 MG 1 capsule 30 minutes before morning meal Orally each morning on empty stomach for 90 days Stop pantoprazole, start omeprazole June, Active Start: 11-03-2018 End: 12-15-2018 take 1 tablet by mouth once daily Omeprazole Magnesium (Prilosec Otc) 20 mg tablet,delayed release (DR/EC) Discontinued 20 MG PO Daily November 03, 2018 12:00am December 15, 2018 9:52am Start: 06-05-2017 End: 05-26-2018 take 40 mg by mouth twice daily Omeprazole Discontinued 40 MG PO Twice daily June 05, 2017 12:00am May 26, 2018 9:45pm Start: 12-21-2014 End: 01-09-2019 take 1 capsule by mouth twice daily omeprazole (PRILOSEC) 20 MG capsule Take 1 capsule by mouth 2 times daily 30 capsule 1 12/21/2014 01/09/2019 Discontinued (Therapy completed) omeprazole 40 mg Cap-DR (4 sources) Start: 06-15-2021 End: 09-13-2021 take 1 capsule by mouth once daily omeprazole 40 mg Cap-DR 40 mg = 1 cap(s), Oral, Daily, X 90 day(s), # 90 cap(s), Refills(s) 0, [facility], 149, cm, 06/15/21 12:17:00 EDT, Height/Length Dosing, 97.9, kg, 06/15/21 12:17:00 EDT, Weight Dosing Start Date: 06/15/21 Stop Date: 09/13/21 Status: Ordered pantoprazole 40 mg delayed release oral tablet (20 sources) Proton Pump Inhibitor Start: 09-01-2020 take 1 tablet by mouth once daily pantoprazole 40 mg Oral EC Tab 40 mg = 1 tab(s), Oral, Daily, # 30 tab(s), Refills(s) 0, [facility] [place] [id number] [facility], 149, cm, 08/31/20 23:13:00 EDT, Height/Length Dosing, 73.1, kg, 08/31/20 23:13:00 EDT, Weight Dosing Start Date: 09/01/20 Status: Ordered Start: 06-10-2020 [address]opraz[address] Tab Refills(s) 0 Start Date: 10/24/21 Status: Ordered Start: 06-10-2020 take 1 tablet by wes th every twenty-four hours Pantoprazole Sodium 40 MG 1 tablet Orally Once a day for 30 day(s) May, Active Start: 12-17-2019 End: 01-16-2020 take 1 tablet by mouth once daily before breakfast pantoprazole (PROTONIX) 40 MG tablet Take 1 tablet by mouth every morning (before breakfast) 30 tablet 0 12/17/2019 Active Start: 02-14-2019 Protonix Refil ls(s) 0 Start Date: 02/14/19 Status: Ordered pantoprazole (PROTONIX) injection 40 mg (1 source) Start: 12-15-2019 pantoprazole (PROTONIX) injection 40 mg phenazopyridine hydrochloride 200 mg oral tablet (2 sources) Start: 09-20-2023 take 1 tablet by mouth three times daily Phenazopyridine (Pyridium) 200 mg tablet Active 200 MG PO Three times daily September 20, 2023 12:00am administer with a full glass of water with each meal polyethylene glycol 3350 51536 mg powder for oral solution (20 sources) Osmotic Laxative Start: 07-26-2018 take 17 g by mouth once daily Miralax 3350 17 gram packet 17 gm, Oral, Daily, # 24 EA, Refills(s) 0 Start Date: 09/03/23 Status: Ordered polyethylene glycol 3350 with electrolytes Oral Pwdr for Claire 4000 mL (NuLytely) (20 sources) Start: 06-15-2021 take 1 dose by mouth once polyethylene glycol 3350 with electrolytes Oral Pwdr for Claire 4000 mL (NuLytely) See Instructions, 1 EA, Refill(s) 0, PER PHYSICIAN INSTRUCTIONS. PRIOR TO COLONOSCOPY., [facility], 149, cm, 06/15/21 12:17:00 EDT, Height/Length Dosing, 97.9, kg, 06/15/21 12:17:00 EDT, Weight Dosing Start Date: 06/15/21 Status: Ordered predniSONE 20 mg oral tablet (20 sources) Start: 01-25-2022 End: 01-30-2022 take 2 tablets by mouth once daily predniSONE 20 mg Tab 40 mg = 2 tab(s), Oral, Daily, X 5 day(s), # 10 tab(s), Refills(s) 0, [facility]: [facility] #[id number], 150, cm, 01/25/22 0:07:00 EST, Height/Length Dosing, 96, kg, 01/25/22 0:07:00 EST, Weight Dosing Start Date: 01/25/22 Stop Date: 01/30/22 Status: Ordered Start: 04-24-2019 End: 04-06-2023 take 60 mg by mouth once daily Prednisone Discontinued 60 MG PO Daily April 24, 2019 1:00am April 06, 2023 2:52pm Start: 10-27-2018 End: 12-15-2018 take 50 mg by mouth once daily Prednisone Discontinued 50 MG PO Daily 06 30October 27, 2018 12:00am December 15, 2018 9:51am Start: 08-19-2018 End: 09-29-2018 take 60 mg by mouth once daily Prednisone Discontinued 60 MG PO Daily August 19, 2018 12:00am September 29, 2018 7:03am Start: 01-21-2018 End: 02-04-2018 take 40 mg by mouth once daily in the morning Prednisone Discontinued 40 MG PO Every morning 11 30January 21, 2018 1:00am February 04, 2018 12:19pm administer with food or milk Start: 12-05-2015 End: 01-09-2019 take 3 tablets by mouth once daily predniSONE (DELTASONE) 20 MG tablet Take 3 tablets by mouth once daily for 5 days 15 tablet 0 12/05/2015 01/09/2019 Discontinued (Therapy completed) ProAir HFA 90 mcg/inh inhalation aerosol (17 sources) Start: 02-02-2017 take 2 puff(s) by inhalation four times daily ProAir HFA 90 mcg/inh inhalation aerosol 2 puff(s), Inhalation, QID Shortness of breath or wheezing, Refill(s) 0 Start Date: 02/02/17 Status: Ordered Propranolol (8 sources) beta-Adrenergic Chen Propranolol HCl (INDERAL PO) Take by mouth. Verify dosage. 0 Active sertraline 50 mg oral tablet (20 sources) Serotonin Reuptake Inhibitor Start: 03-17-2022 take 1 tablet by mouth every twenty-four hours Zoloft 50 MG 1 tablet Orally Once a day for 90 days Feb, Active sulfamethoxazole 800 mg / trimethoprim 160 mg oral tablet (20 sources) Dihydrofolate Reductase Inhibitor Antibacterial, Sulfonamide Antimicrobial Start: 09-20-2023 take 1 tablet by mouth twice daily Sulfamethoxazole -Trimethoprim (Bactrim Ds) 800-160 mg tablet Active 1 TAB PO Twice daily September 20, 2023 12:00am Start: 12-01-2021 take 1 tablet by wes th every twelve hours Bactrim DS 800-160 MG 1 tablet Orally Twice a day for 7 days Nov, Active Start: 11-08-2021 End: 11-13-2021 Bactrim 400 mg-80 mg Tab 2 t ab(s), Oral, BID for 5 day(s), 20 tab(s), Refill(s) 0, [facility] #[id number], 150, cm, 11/08/21 6:49:00 EDT, Height/Length Dosing, 75, kg, 11/08/21 6:49:00 EDT, Weight Dosing Start Date: 11/08/21 Stop Date: 11/13/21 Status: Ordered Start: 02-04-2018 End: 02-07-2018 take 1 tablet by mouth twice daily Sulfamethoxazole-Trimethoprim (Bactrim Ds) 800-160 mg tablet Discontinued 1 TAB PO Twice daily 6 3 February 04, 2018 1:00am February 07, 2018 1:02am Start: 01-01-2018 End: 01-08-2018 take 1 tablet by mouth twice daily Sulfamethoxazole-Trimethoprim (Bactrim Ds) 800-160 mg tablet Discontinued 1 TAB PO Twice daily 08 09January 01, 2018 1:00am January 08, 2018 1:01am Start: 06-17-2017 End: 06-27-2017 take 1 tablet by mouth twice daily Sulfamethoxazole-Trimethoprim (Bactrim Ds) 800-160 mg tablet Discontinued 1 TAB PO Twice daily 15 12June 17, 2017 12:00am June 27, 2017 12:01am tamsulosin hydrochloride 0.4 mg oral capsule (1 source) alpha-Adrenergic Chen Start: 09-03-2023 take 1 capsule by mouth once daily Flomax 0.4 mg Cap 0.4 mg = 1 cap(s), Oral, Daily, # 10 cap(s), Refills(s) 0 Start Date: 09/03/23 Status: Ordered tiZANidine 4 mg oral tablet (20 sources) Central alpha-2 Adrenergic Agonist Start: 04-17-2023 End: 05-22-2023 tiZANidine (Zanaflex) 4 MG tablet Three times daily 04/17/2023 Active Start: 04-06-2023 End: 06-13-2023 take 4 mg by mouth three times daily Tizanidine Discontinued 4 MG PO Three times daily April 06, 2023 1:00am June 13, 2023 11:35am traMADol hydrochloride 50 mg oral tablet (20 sources) Opioid Agonist Start: 12-17-2019 End: 12-20-2019 take 0.5 tablet by mouth every six hours as needed for pain traMADol (ULTRAM) 50 MG tablet Indications: Acute pyelonephritis Take 0.5 tablets by mouth every 6 hours as needed for Pain for up to 3 days. 6 tablet 0 12/17/2019 12/20/2019 Active Start: 07-30-2019 take 1 tablet by wes th every six hours as needed for pain traMADOL 50 mg Tab 50 mg = 1 tab(s), Oral, q6hr, PRN Pain, # 7 tab(s), Refills(s) 0, Pharmacy: [id number], 149, cm, 11/20/20 20:58:00 EDT, Height/Length Dosing, 76, kg, 11/20/20 20:58:00 EDT, Weight Dosing Start Date: 11/21/20 Status: Ordered Start: 07-30-2019 take 1 tablet by wes th once daily at bedtime as needed traMADol HCl 50 MG 1 tablet as needed Orally Once a day at bedtime for 10 days Jul, Not-Taking traZODone hydrochloride 100 mg oral tablet (20 sources) Serotonin Reuptake Inhibitor Start: 12-01-2021 traZODone (Desyrel) 100 MG tablet 07/19/2022 Active Start: 12-01-2021 take 1 tablet by wes th every twenty-four hours traZODone HCl 50 MG 1 tablet at bedtime as needed Orally Once a day for 30 day(s) Nov, Active Zofran ODT 4 mg Tab-Dis (20 sources) Start: 09-03-2023 take 1 tablet by mouth every eight hours Zofran ODT 4 mg Tab-Dis 4 mg = 1 tab(s), Oral, q8hr, # 12 tab(s), Refills(s) 0 Start Date: 09/03/23 Status: Ordered Start: 08-27-2023 take 1 tablet by wes th every eight hours as needed for nausea Zofran ODT 4 mg Tab-Dis 4 mg = 1 tab(s), Oral, q8hr, PRN Nausea/Vomiting, # 12 tab(s), Refills(s) 0, Pharmacy: [facility] #[id number], 150, cm, 08/27/23 19:10:00 EDT, Height/Length Dosing, 95.7, kg, 08/27/23 19:10:00 EDT, Weight Dosing Start Date: 08/27/23 Status: Ordered Start: 08-25-2022 take 1 tablet by wes th every eight hours as needed for nausea Zofran ODT 4 mg Tab-Dis 4 mg = 1 tab(s), Oral, q8hr, PRN Nausea/Vomiting, # 20 tab(s), Refills(s) 0, [facility]: [facility] #[id number], 149, cm, 08/25/22 17:36:00 EDT, Height/Length Dosing, 70, kg, 08/25/22 17:36:00 EDT, Weight Dosing Start Date: 08/25/22 Status: Ordered Start: 08-30-2020 take 1 tablet by wes th three times daily Zofran ODT 4 mg Tab-Dis 4 mg = 1 tab(s), Oral, TID, # 15 tab(s), Refills(s) 0, [facility]acy: [facility], 150, cm, 08/04/20 21:26:00 EDT, Height/Length Dosing, 72.3, kg, 08/04/20 21:26:00 EDT, Weight Dosing Start Date: 08/30/20 Status: Ordered Completed/Discontinued Medications Medication Drug Class(es) Dates Sig (Normalized) Sig (Original) acetaminophen 325 mg / HYDROcodone bitartrate 5 mg oral tablet (14 sources) Opioid Agonist Start: 06-13-2023 End: 07-14-2023 take 1 tablet by mouth every four to six hours Hydrocodone-Acetami nophen Discontinued 1 TAB PO EVERY 4-6 HOURS 10 June 13, 2023 July 14, 2023 4:15pm Start: 05-16-2023 End: 05-22-2023 take 1 tablet by mouth every four to six hours Hydrocodone-Acetaminophen Discontinued 1 TAB PO EVERY 4-6 HOURS 10 May 16, 2023 May 22, 2023 11:53am aluminum hydroxide 40 mg/ml / magnesium hydroxide 40 mg/ml / simethicone 4 mg/ml oral suspension (1 source) Start: 01-11-2019 End: 01-11-2019 aluminum & magnesium hydroxide-simethicone (MAALOX) 200-200-20 MG/5ML suspension 30 mL ARIPiprazole 30 mg oral tablet (2 sources) Atypical Antipsychotic End: 01-09-2019 take 1 tablet by mouth once daily aripiprazole (ABILIFY) 30 MG tablet Take 30 mg by mouth daily. 0 01/09/2019 Discontinued (Therapy completed) benzocaine 15 mg / menthol 3.6 mg oral lozenge (2 sources) Standardized Chemical Allergen Start: 01-06-2016 End: 01-09-2019 benzocaine-menthol (CEPACOL SORE THROAT) 15-3.6 MG lozenge Take 1 lozenge by mouth every 2 hours as needed for Sore Throat 20 lozenge 0 01/06/2016 01/09/2019 Discontinued (Therapy completed) benzonatate 100 mg oral capsule (2 sources) Non-narcotic Antitussive Start: 01-06-2016 End: 01-09-2019 take 1 capsule by mouth three times daily as needed for cough benzonatate (TESSALON PERLES) 100 MG capsule Take 1 capsule by mouth 3 times daily as needed for Cough 8 capsule 0 01/06/2016 01/09/2019 Discontinued (Therapy completed) calcium chloride 0.0014 meq/ml / potassium chloride 0.004 meq/ml / sodium chloride 0.103 meq/ml / sodium lactate 0.028 meq/ml injectable solution (1 source) Start: 12-15-2019 End: 12-17-2019 lactated ringers infusion cefTRIAXone (ROCEPHIN) 1 g IVPB in 50 mL D5W minibag (4 sources) Start: 12-14-2019 End: 12-15-2019 1 g, Intravenous, EVERY 24 HOURS, First dose on 12/14/19 at 2100, Until Discontinued Start: 12-13-2019 End: 12-13-2019 cefTRIAXone (ROCEPHIN) 1 g I VPB in 50 mL D5W minibag Start: 01-08-2019 End: 01-08-2019 cefTRIAXone (ROCEPHIN) 1 g I VPB in 50 mL D5W minibag Start: 12-19-2018 End: 12-19-2018 cefTRIAXone (ROCEPHIN) 1 g I VPB in 50 mL D5W minibag 1 ml diphenhydrAMINE hydrochloride 50 mg/ml cartridge (1 source) Histamine-1 Receptor Antagonist Start: 01-08-2019 End: 01-08-2019 diphenhydrAMINE (BENADRYL) injection 25 mg famotidine 20 mg oral tablet (20 sources) Histamine-2 Receptor Antagonist Start: 12-15-2018 End: 09-20-2023 take 1 tablet by mouth twice daily Famotidine (Pepcid) 20 mg Tablet Discontinued 20 MG PO Twice daily December 15, 2018 12:00am September 20, 2023 12:47am FLUoxetine (2 sources) Serotonin Reuptake Inhibitor End: 01-09-2019 FLUOXETINE HCL PO Take by mouth. Verify dosage. 0 01/09/2019 Discontinued (Therapy completed) FLUOXETINE HCL P O Take by mouth. Verify dosage. 0 Active Fluticasone Propion-Salmeterol (13 sources) Corticosteroid, beta2-Adrenergic Agonist Start: 11-26-2016 End: 10-27-2018 Fluticasone Propion-Salmeterol (Advair Diskus) 500-50 mcg/dose Blister With Device Discontinued 1 INH INHALATION Twice daily November 25, 2016 11:00pm October 27, 2018 9:17am Start: 11-26-2016 End: 10-27-2018 Fluticasone Propion-Salmeter ol (Advair Diskus) 500-50 mcg/dose Blister With Device Discontinued 1 INH INHALATION Twice daily November 26, 2016 12:00am October 27, 2018 10:17am Fluticasone Furoate-Vilanter ol (7 sources) Start: 05-22-2023 End: 06-13-2023 Fluticasone Furoate-Vilanter ol (Breo Ellipta) 50-25 mcg/dose blister with device Discontinued 1 INH INHALATION Daily May 22, 2023 12:00am June 13, 2023 11:35am Start: 05-22-2023 Fluticasone Fu roate-Vilanterol (Breo Ellipta) 50-25 mcg/dose blister with device Active 1 INH INHALATION Daily May 22, 2023 12:00am 1 ml HYDROmorphone hydrochloride 1 mg/ml cartridge (3 sources) Opioid Agonist Start: 12-17-2019 End: 12-17-2019 HYDROmorphone (DILAUDID) injection 0.5 mg Start: 12-14-2019 End: 12-17-2019 HYDROmorphone (DILAUDID) inj ection 1 mg Start: 12-19-2018 End: 12-19-2018 HYDROmorphone (DILAUDID) inj ection 1 mg ibuprofen 400 mg oral tablet (20 sources) Nonsteroidal Anti-inflammatory Drug Start: 10-29-2019 End: 10-29-2019 ibuprofen (ADVIL;MOTRIN) tablet 600 mg Start: 01-21-2018 End: 03-01-2018 take 800 mg by mouth three times daily Ibuprofen Discontinued 800 MG PO Three times daily January 21, 2018 1:00am March 01, 2018 11:30am Start: 03-07-2015 take 1 tablet by wes th every six hours as needed for pain ibuprofen (ADVIL;MOTRIN) 800 MG tablet Take 1 tablet by mouth every 6 hours as needed for Pain 50 tablet 0 03/07/2015 Active ibuprofen 200 MG tablet Take by mouth 0 Active Iohexol (2 sources) Radiographic Contrast Agent Start: 01-10-2019 End: 01-10-2019 iohexol (OMNIPAQUE 350) solution 75 mL Start: 12-19-2018 End: 12-19-2018 iohexol (OMNIPAQUE 350) solu tion 75 mL ketorolac tromethamine 10 mg oral tablet (20 sources) Nonsteroidal Anti-inflammatory Drug, Cyclooxygenase Inhibitor Start: 04-06-2023 End: 05-22-2023 take 10 mg by mouth every six hours Ketorolac Discontinued 10 MG PO Q6H April 17, 2023 1:00am May 22, 2023 11:53am Start: 11-06-2022 End: 04-06-2023 take 10 mg by mouth three times daily Ketorolac Discontinued 10 MG PO Three times daily 11 28November 06, 2022 12:00am April 06, 2023 2:52pm Start: 03-10-2020 take 1 tablet by wes th every six hours as needed for pain ketorolac (TORADOL) 10 MG tablet Take 1 tablet by mouth every 6 hours as needed for Pain 20 tablet 0 03/10/2020 Active Start: 03-10-2020 ketorolac (TOR ADOL) injection 15 mg Start: 12-13-2019 End: 12-13-2019 ketorolac (TORADOL) injectio n 30 mg Start: 01-14-2019 End: 01-14-2019 ketorolac (TORADOL) injectio n 15 mg Start: 12-19-2018 End: 12-19-2018 ketorolac (TORADOL) injectio n 15 mg Ketorolac Tromethamin (13 sources) Start: 05-30-2022 Ketorolac Tromethamin May, 60 mg levoFLOXacin 500 mg oral tablet (17 sources) Quinolone Antimicrobial Start: 01-13-2019 End: 01-12-2019 take 1 tablet by mouth once daily levofloxacin (LEVAQUIN) 500 MG tablet Take 1 tablet by mouth daily for 2 days 2 tablet 0 01/13/2019 01/12/2019 Discontinued Start: 01-11-2019 End: 01-15-2019 take 1 tablet by mouth once daily levofloxacin (LEVAQUIN) 500 MG tablet Take 1 tablet by mouth daily for 2 days 2 tablet 0 01/13/2019 01/15/2019 Active Start: 07-19-2018 End: 08-19-2018 take 1 tablet by mouth once daily Levofloxacin (Levaquin) 750 mg tablet Discontinued 750 MG PO Daily 6 July 19, 2018 12:00am August 19, 2018 9:41am lidocaine 0.05 mg/mg medicated patch (20 sources) Antiarrhythmic, Amide Local Anesthetic Start: 12-27-2021 End: 05-16-2023 apply 1 dose topically once daily Lidocaine Discontinued 1 PATCH TOPICAL Daily April 06, 2023 1:00am May 16, 2023 11:40am leave on most painful area for up to 12 hrs Start: 12-13-2019 lidocaine 4 % external patch 1 patch lurasidone hydrochloride 40 mg oral tablet (2 sources) Atypical Antipsychotic End: 01-09-2019 lurasidone (LATUDA) 40 MG TABS tablet Take 60 mg by mouth daily 0 01/09/2019 Discontinued (Therapy completed) metroNIDAZOLE 500 mg oral tablet (4 sources) Nitroimidazole Antimicrobial Start: 01-08-2019 End: 01-15-2019 take 1 tablet by mouth every twelve hours metroNIDAZOLE (FLAGYL) 500 MG tablet Take 1 tablet by mouth every 12 hours for 2 days 4 tablet 0 01/12/2019 01/12/2019 Discontinued 1 ml morphine sulfate 2 mg/ml injection (11 sources) Opioid Agonist Start: 12-14-2019 End: 12-14-2019 morphine 2 MG/ML injection Start: 12-14-2019 End: 12-14-2019 take 2 mg by mouth every four hours as needed for pain 2 mg, Intravenous, EVERY 4 HOURS PRN, Pain Moderate (4-6), Pain Severe (7-10), Starting 12/14/19 at 0331 If oral and IV narcotics ordered, use oral first and only use IV if oral is ineffective or cannot take oral. Do Not give oral and IV within 1 hour of each other unless specifically ordered. Start: 12-14-2019 End: 12-14-2019 morphine injection 2 mg Start: 12-13-2019 End: 12-13-2019 morphine injection 4 mg Start: 01-09-2019 End: 01-09-2019 morphine injection 2 mg Start: 01-09-2019 End: 01-09-2019 morphine injection 2 mg Start: 01-08-2019 End: 01-11-2019 morphine injection 4 mg Start: 12-19-2018 End: 12-19-2018 morphine injection 4 mg Start: 12-19-2018 End: 12-19-2018 morphine injection 4 mg ondansetron 8 mg disintegrating oral tablet (20 sources) Serotonin-3 Receptor Antagonist Start: 07-14-2023 End: 09-20-2023 take 8 mg by mouth once daily Ondansetron Discontinued 8 MG PO Daily 11 29July 14, 2023 12:00am September 20, 2023 12:47am Start: 05-12-2023 End: 06-13-2023 take 4 mg by mouth four times daily Ondansetron Discontinued 4 MG PO Four times daily May 12, 2023 12:00am June 13, 2023 11:35am Start: 04-29-2021 take 1 tablet by wes th three times daily as needed Ondansetron 4 MG 1 tablet on the tongue and allow to dissolve Orally TID PRN for 10 days Apr, Active Start: 09-01-2020 End: 09-20-2023 Ondansetron Hcl Discontinued 4 MG PO every 6 to 8 hours June 13, 2023 12:00am September 20, 2023 12:47am Start: 03-10-2020 End: 03-10-2020 ondansetron (ZOFRAN) injecti on 4 mg Start: 12-13-2019 End: 12-13-2019 ondansetron (ZOFRAN-ODT) disintegrating tablet 4 mg Start: 12-13-2019 End: 12-13-2019 ondansetron (ZOFRAN-ODT) disintegrating tablet 4 mg Start: 01-14-2019 End: 01-14-2019 ondansetron (ZOFRAN) injecti on 4 mg Start: 01-11-2019 End: 01-11-2019 ondansetron (ZOFRAN) injecti on 4 mg Start: 01-08-2019 End: 01-11-2019 ondansetron (ZOFRAN) injecti on 4 mg Start: 12-19-2018 End: 01-01-2020 take 1 tablet by mouth every eight hours as needed for nausea ondansetron (ZOFRAN ODT) 4 MG disintegrating tablet Take 1 tablet by mouth every 8 hours as needed for Nausea or Vomiting 45 tablet 0 12/17/2019 01/01/2020 Active Start: 12-19-2018 End: 12-19-2018 ondansetron (ZOFRAN) injecti on 8 mg Start: 11-03-2018 End: 12-15-2018 take 4 mg by mouth every six hours Ondansetron Discontinued 4 MG PO Q6H November 03, 2018 12:00am December 15, 2018 9:51am Start: 07-21-2018 End: 08-19-2018 take 4 mg by mouth three times daily Ondansetron Discontinued 4 MG PO Three times daily 10 July 21, 2018 12:00am August 19, 2018 9:41am Start: 05-08-2018 End: 05-12-2018 take 8 mg by mouth every eight hours Ondansetron Discontinued 8 MG PO Q8H 10 May 08, 2018 12:00am May 12, 2018 12:02am Start: 11-24-2017 End: 11-25-2017 take 1 tablet by mouth three times daily Ondansetron Hcl (Zofran) 4 mg tablet Discontinued 4 MG PO Three times daily 15 November 24, 2017 12:00am November 25, 2017 7:16pm Start: 08-06-2017 End: 11-22-2017 take 1 tablet by mouth every four hours Ondansetron (Zofran Odt) 4 mg Tablet,Disintegrating Discontinued 4 MG PO Q4H August 06, 2017 12:00am November 22, 2017 11:02am administer first dose 30 minutes before start of emetogenic chemotherapy 24 hr OXcarbazepine 300 mg extended release oral tablet (20 sources) Anti-epileptic Agent take 1 tablet by mouth once daily at bedtime Oxtellar XR 300 MG 1 Tablet Orally qhs for 30 day(s) Not-Taking/PRN oxyCODONE hydrochloride 5 mg oral tablet (2 sources) Opioid Agonist Start: 01-13-20 End: 01-13-20 take 1 tablet by mouth every six hours as needed for pain, then take 5 tablets by mouth as needed for pain oxyCODONE (ROXICODONE) 5 MG immediate release tablet Indications: Pyelonephritis Take 1 tablet by mouth every 6 hours as needed for Pain for up to 5 doses. Intended supply: 5 days. Take lowest dose possible to manage pain 5 tablet 0 01/12/2019 01/12/2019 Discontinued (Stop Taking at Discharge) Start: 01-10-2019 oxyCODONE (CARINA ICODONE) immediate release tablet 5 mg microencapsulated potassium chloride 20 meq extended release oral tablet (1 source) Start: 12-15-2019 End: 12-15-2019 potassium chloride (KLOR-CON M) extended release tablet 40 mEq promethazine hydrochloride 25 mg rectal suppository (20 sources) Phenothiazine Start: 07-06-2023 End: 09-20-2023 Promethazine Discontinued 25 MG MS Q6H July 06, 2023 12:00am September 20, 2023 12:47am Start: 07-22-2021 take 12.5 mg rectal route every eight hours as needed for nausea Phenergan 12.5 mg Supp 12.5 mg = 1 supp, Rectal, q8hr, PRN as needed for nausea/vomiting, second line, # 6 EA, Refills(s) 0, [facility]acy: [facility] #[id number], 149, cm, 08/25/22 17:36:00 EDT, Height/Length Dosing, 70, kg, 08/25/22 17:36:00 EDT, Weight Dosing Start Date: 08/25/22 Status: Ordered Start: 04-06-2021 take 1 tablet by wes th every six hours as needed for nausea promethazine 25 mg Tab 25 mg = 1 tab(s), Oral, q6hr, PRN as needed for nausea/vomiting, # 12 tab(s), Refills(s) 0, [facility]acy: [facility] #[id number], 150, cm, 01/25/22 0:07:00 EST, Height/Length Dosing, 96, kg, 01/25/22 0:07:00 EST, Weight Dosing Start Date: 01/25/22 Status: Ordered Start: 12-14-2019 promethazine ( PHENERGAN) tablet 12.5 mg Start: 03-31-2019 PROMETHAZINE ( Phenergan) up to 50 mg Mar, 25 mg Start: 11-25-2017 End: 03-01-2018 Promethazine Discontinued 50 MG MS Q6H November 25, 2017 12:00am March 01, 2018 11:30am Start: 09-20-2017 End: 11-24-2017 take 25 mg by mouth every six hours Promethazine Discontinued 25 MG PO Q6H September 20, 2017 12:00am November 24, 2017 8:47pm 50 ml sodium chloride 9 mg/m l injection (11 sources) Start: 03-10-2020 End: 03-10-2020 0.9 % sodium chloride bolus Start: 12-14-2019 10 mL, Intrave nous, EVERY 12 HOURS SCHEDULED (2 times per day), First dose on 12/14/19 at 0900 Start: 12-14-2019 take 10 mL intraveno us route once as needed 10 mL, Intravenous, PRN, Line Care, After every IV line use, Starting Parker 12/14/19 at 0331 Start: 12-14-2019 End: 12-15-2019 Intravenous, at 125 mL/hr, CONTINUOUS, Starting Parker 12/14/19 at 0345 Start: 12-13-2019 End: 12-14-2019 0.9 % sodium chloride bolus Start: 01-14-2019 End: 01-14-2019 0.9 % sodium chloride bolus Start: 01-10-2019 0.9 % sodium c hloride infusion Start: 01-09-2019 10 mL, Intrave nous, EVERY 12 HOURS SCHEDULED (2 times per day), First dose on Suzan 01/09/19 at 0900 Start: 01-09-2019 take 10 mL intraveno us route once as needed 10 mL, Intravenous, PRN, Line Care, After every IV line use, Starting [facility] 01/09/19 at 0325 Start: 12-19-2018 End: 12-19-2018 0.9 % sodium chloride bolus sucralfate 1000 mg oral tablet (20 sources) Aluminum Complex Start: 11-10-2018 End: 12-15-2018 take 1 tablet by mouth at bedtime Sucralfate (Carafate) 1 gram tablet Discontinued 1 GM PO Before meals and at bedtime 60 November 10, 2018 12:00am December 15, 2018 9:51am Start: 06-05-2017 End: 07-17-2017 take 1 g by mouth once daily Sucralfate Discontinued 1 GM PO Daily June 05, 2017 12:00am July 17, 2017 9:12pm Start: 01-15-2015 End: 01-09-2019 take 1 tablet by mouth four times daily 1 hour(s) before bedtime Sucralfate (Carafate) 1 gram tablet Discontinued 1 GM PO Four times daily 60 July 11, 2017 12:00am November 22, 2017 11:02am administer 1 hour before meals and at bedtime topiramate (2 sources) End: 01-09-2019 Topiramate (TOPAMAX PO) Take by mouth daily. Verify dosage. 0 01/09/2019 Discontinued (Therapy completed) Topiramate (TOPA MAX PO) Take by mouth daily. Verify dosage. 0 Active Problems Active Problems Problem Classification Problem Date Documented Da te Episodic/Chronic Abdominal pain (20 sources) Flank pain; Translations: [Abdominal pain] Onset: 2 05-11-2021 Episodic Acute bronchitis (1 source) Acute bronchitis, unspecified Episodic Allergic reactions (20 sources) Allergy to bee venom; Translations: [Bee allergy status] Episodic Anxiety disorders (20 sources) Mixed anxiety and depressive disorder; Translations: [Other specified anxiety disorders] Chronic Asthma (20 sources) Asthma; Translations: [Unspecified asthma, uncomplicated] Onset: 1 Resolved: 1 11-24-2010 Chronic Attention-deficit conduct and disruptive behavior disorders (8 sources) Adult attention deficit hyperactivity disorder ; Translations: [Adult ADHD] 11-24-2010 Chronic Attention-deficit, conduct, and disruptive behavior disorders (20 sources) Attention deficit hyperactivity disorder 01-04-2015 Chronic Calculus of urinary tract (17 sources) Kidney stone; Translations: [Calculus of kidney] Onset: 4 11-08-2021 Episodic Cardiac dysrhythmias (20 sources) Irregular heart beat; Translations: [Cardiac arrhythmia, unspecified] Chronic Chronic obstructive pulmonary disease and bronchiectasis (20 sources) Bronchitis; Translations: [Bronchitis, not specified as acute or chronic] 03-26-2019 Episodic Diabetes mellitus without complication (20 sources) Diabetes mellitus 02-14-2019 Chronic Diseases of white blood cells (13 sources) Leukocytosis; Translations: [Elevated white blood cell count, unspecified] 07-18-2017 Chronic Diseases of white blood cells (8 sources) Band neutrophil count above reference range; Translations: [Bandemia] 01-10-2019 Episodic Disorders of teeth and jaw (13 sources) Dental caries; Translations: [Dental caries, unspecified] 03-26-2019 Episodic E Codes: Fall (20 sources) Fall; Translations: [Unspecified fall, initial encounter] Onset: 2 Episodic Epilepsy; convulsions (20 sources) Seizure disorder; Translations: [Epilepsy, unspecified, not intractable, without status epilepticus] Chronic Epilepsy; convulsions (20 sources) Seizure; Translations: [Seizures] 11-24-2010 Episodic Esophageal disorders (20 sources) Gastroesophageal reflux disease; Translations: [Gastro-esophageal reflux disease without esophagitis] Chronic Fluid and electrolyte disorders (13 sources) Hyponatremia; Translations: [Hypo-osmolality and hyponatremia] 07-18-2017 Episodic Gastritis and duodenitis (20 sources) Chronic gastritis; Translations: [Unspecified chronic gastritis without bleeding] Onset: 2 Chronic Gastritis and duodenitis (13 sources) Gastritis; Translations: [Gastritis, unspecified, without bleeding] 12-15-2018 Episodic Gastroduodenal ulcer (except hemorrhage) (20 sources) Antral ulcer; Translations: [Gastric ulcer] 02-14-2019 Chronic Gastroduodenal ulcer (except hemorrhage) (13 sources) H/O: gastric ulcer; Translations: [Personal history of peptic ulcer disease] 07-18-2017 Episodic Gastrointestinal hemorrhage (13 sources) Hematemesis; Translations: [Hematemesis] 11-10-2018 Episodic Genitourinary symptoms and ill-defined conditions (2 sources) Blood in urine; Translations: [Hematuria, unspecified] Onset: 2 Episodic Headache; including migraine (20 sources) Migraine; Translations: [Migraine, unspecified, not intractable, without status migrainosus] Onset: 4 11-24-2010 Chronic Headache; including migraine (13 sources) Headache; Translations: [Headache] 09-29-2018 Episodic Inflammatory diseases of female pelvic organs (17 sources) Acute vaginitis; Translations: [Bacterial vaginosis] 01-10-2019 Episodic Malaise and fatigue (13 sources) Fatigue; Translations: [Other fatigue] 11-26-2016 Episodic Menstrual disorders (4 sources) Menometrorrhagia; Translations: [Excessive and frequent menstruation with irregular cycle] 01-02-2024 Chronic Mood disorders (20 sources) Bipolar disorder; Translations: [Affective psychosis] 11-24-2010 Chronic Nonspecific chest pain (13 sources) Atypical chest pain; Translations: [Other chest pain] 09-07-2018 Episodic Nutritional deficiencies (4 sources) Vitamin D deficiency; Translations: [Vitamin D deficiency] Onset: 0 12-15-2019 Chronic Other circulatory disease (13 sources) Pulmonary congestion ; Translations: [Other specified symptoms and signs involving the circulatory and respiratory systems] 09-29-2018 Episodic Other connective tissue disease (1 source) Pain in right arm; Translations: [Right arm pain] Episodic Other connective tissue disease (2 sources) Hand pain; Translations: [Pain in unspecified hand] Onset: 2 Episodic Other connective tissue disease (12 sources) Pain in lower limb; Translations: [Pain in left leg] 11-06-2022 Episodic Other diseases of kidney and ureters (20 sources) Kidney disease; Translations: [Other specified disorders of kidney and ureter] Chronic Other female genital disorders (2 sources) Pain in female genitalia on intercourse; Translations: [Unspecified dyspareunia] 01-02-2024 Chronic Other gastrointestinal disorders (2 sources) Abnormal feces; Translations: [Other fecal abnormalities] Onset: 2 Episodic Other gastrointestinal disorders (20 sources) Loose stool 06-15-2021 Episodic Other gastrointestinal disorders (1 source) Constipation, unspecified; Translations: [Constipation, unspecified] Onset: 4 Episodic Other nervous system disorders (20 sources) Carpal tunnel syndrome; Translations: [Carpal tunnel syndrome, unspecified upper limb] Chronic Other nervous system disorders (1 source) Carpal tunnel syndrome, unspecified upper limb; Translations: [Carpal tunnel syndrome G56.00] Onset: 1 Resolved: 1 Chronic Other nervous system disorders (1 source) Bilateral carpal tunnel syndrome; Translations: [Carpal tunnel syndrome, bilateral upper limbs] Onset: 2 Chronic Other nervous system disorders (13 sources) Paresthesia of right upper limb; Translations: [Paresthesia of skin] 06-17-2017 Episodic Other nervous system disorders (7 sources) Acute postoperative pain; Translations: [Other acute postprocedural pain] 05-22-2023 Episodic Other non-traumatic joint disorders (2 sources) Pain of right shoulder joint; Translations: [Pain in right shoulder] Onset: 3 Episodic Other nutritional; endocrine; and metabolic disorders (9 sources) Obesity; Translations: [Obesity] 11-24-2010 Chronic Other nutritional; endocrine; and metabolic disorders (20 sources) Morbid obesity 10-30-2013 Chronic Other nutritional; endocrine; and metabolic disorders (1 source) Obese class I; Translations: [Body mass index (BMI) 31.0-31.9, adult] Onset: 2 Chronic Other nutritional; endocrine; and metabolic disorders (1 source) Body mass index 40+ - severely obese; Translations: [Body mass index (BMI) 60.0-69.9, adult] Onset: 2 Chronic Other nutritional; endocrine; and metabolic disorders (20 sources) H/O: diabetes mellitus; Translations: [Personal history of other endocrine, nutritional and metabolic disease] Episodic Other nutritional; endocrine; and metabolic disorders (1 source) Personal history of other endocrine, nutritional and metabolic disease Episodic Other upper respiratory infections (1 source) Chronic sinusitis; Translations: [Chronic sinusitis, unspecified] Onset: 2 Chronic Other upper respiratory infections (16 sources) Streptococcal sore throat; Translations: [Streptococcal pharyngitis] Onset: 2 Episodic Ovarian cyst (20 sources) Hemorrhagic cyst of ovary; Translations: [Unspecified ovarian cyst, unspecified side] Onset: 4 05-12-2023 Episodic Ovarian cyst (1 source) Cyst of left ovary; Translations: [Cyst of left ovary] Residual codes; unclassified (20 sources) Edema of lower extremity; Translations: [Localized edema] Episodic Residual codes; unclassified (20 sources) Insomnia; Translations: [Insomnia, unspecified] Episodic Residual codes; unclassified (2 sources) Insomnia, unspecified Episodic Residual codes; unclassified (1 source) General finding of observation of patient; Translations: [Other general symptoms and signs] Onset: 2 Episodic Residual codes; unclassified (13 sources) Noncompliance with treatment; Translations: [Noncompliance] Episodic Septicemia (except in labor) (8 sources) Sepsis; Translations: [Sepsis] 01-10-2019 Episodic Spondylosis; intervertebral disc disorders; other back problems (6 sources) Displacement of lumbar intervertebral disc without myelopathy; Translations: [Other intervertebral disc displacement, lumbar region] Onset: 3 07-27-2022 Chronic Substance-related disorders (20 sources) Smoker 02-14-2019 Chronic Comment on above: Added secondary to d ocumentation in Social History. Added secondary to d ocumentation in Social History. Suicide and intentional self-inflicted injury (1 source) Suicidal thoughts; Translations: [Suicidal ideations] Onset: 3 Episodic Superficial injury; contusion (13 sources) Contusion of hip; Translations: [Contusion of left hip, initial encounter] Onset: 2 Episodic Unclassified (20 sources) Bipolar (qualifier value) 02-14-2019 Urinary tract infections (20 sources) Pyelonephritis; Translations: [Urinary tract infectious disease] Onset: 9 01-10-2019 Episodic Past or Other Problems Problem Classification Problem Date Documented Date Episodic/Chronic Fracture of lower limb (1 source) Unspecified fracture of left toe(s), initial encounter for closed fracture; Translations: [Toe fracture, left S92.912A] Onset: 11-24-2020 Resolved: 11-24-2020 Episodic Influenza (1 source) Influenza due to other identified influenza virus with other respiratory manifestations Onset: 06-15-2021 Resolved: 06-15-2021 Episodic Nausea and vomiting (20 sources) Intractable nausea and vomiting; Translations: [Uncontrollable vomiting] Onset: 01-14-2019 01-14-2019 Episodic Other connective tissue disease (7 sources) Radicular pain; Translations: [Neuralgia and neuritis, unspecified] Onset: 03-28-2023 03-28-2023 Episodic Other connective tissue disease (1 source) Pain in left lower leg; Translations: [Pain in left lower leg] Onset: 11-06-2022 Episodic Other injuries and conditions due to external causes (1 source) Unspecified injury of unspecified ankle, initial encounter; Translations: [Unspecified injury of unspecified ankle, initial encounter] Onset: 04-17-2023 Episodic Other nervous system disorders (1 source) Other acute postprocedural pain; Translations: [Other acute postprocedural pain] Onset: 06-13-2023 Episodic Other non-traumatic joint disorders (7 sources) Pain in right shoulder; Translations: [Pain in joint, shoulder region] Onset: 03-28-2023 03-28-2023 Episodic Poisoning by nonmedicinal substances (1 source) Toxic effect of venom of bees, accidental (unintentional), initial encounter; Translations: [Anaphylactic reaction to bee sting T63.441A] Onset: 11-24-2020 Resolved: 11-24-2020 Episodic Spondylosis; intervertebral disc disorders; other back problems (20 sources) Backache; Translations: [Dorsalgia, unspecified] Onset: 07-26-2022 08-19-2018 Episodic Sprains and strains (20 sources) Sprain of ligament of finger; Translations: [Unspecified sprain of unspecified finger, initial encounter] Onset: 09-20-2021 Episodic Unclassified (3 sources) Cough R05.9 Onset: 03-02-2021 Resolved: 06-15-2021 Unclassified (1 source) Exposure to 2019 novel coronavirus; Translations: [Contact with and (suspected) exposure to COVID19] Unclassified (1 source) Noncompliance Z91.199 Results Test Name Value Interpretation Reference Range Facility Cult,Urineon 10-28-2023 Cult,Urine Specimen Description .CLEAN CATCH URINE Special Requests Site: Urine Culture UROGENITAL ANNA 10 to 50,000 CFU/ML STREPTOCOCCI, BETA HEMOLYTIC GROUP B 10 to 50,000 CFU/ML INCLUDED IN THE ABOVE Report Status FINAL 10/28/2023 Normal [facility] Comment on above: Performed By: #### U RC #### [facility] [address] [place] [address] [id number] Blood Or Blood Bank Technician: Enrico Henry MD Basic Metabolic Profon 10-26 Anion gap [Moles/Vol] 10 mmol/L Normal 9-16 [facility] Comment on above: Performed By: #### C DP, HCG, BMP #### [facility] [address] [place] [address] Blood Or Blood Bank Technician: Enrico Henry MD Calcium [Mass/Vol] 8.8 mg/dL Normal 8.6-10.4 [facility] Comment on above: Performed By: #### C DP, HCG, BMP #### [facility] [address] [place] [id number] Blood Or Blood Bank Technician: Enrico Henry MD Chloride [Moles/Vol] 107 mmol/L Normal 98-107 [facility] Comment on above: Performed By: #### C DP, HCG, BMP #### [facility] [address] [place] [address] Blood Or Blood Bank Technician: Enrico Henry MD CO2 [Moles/Vol] 22 mmol/L Normal 20-31 [facility] Comment on above: Performed By: #### C DP, HCG, BMP #### [facility] [address] [place] [address] Blood Or Blood Bank Technician: Enrico Henry MD Creatinine [Mass/Vol] 0.8 mg/dL Normal 0.50-0.90 [facility] Comment on above: Performed By: #### C DP, HCG, BMP #### [address] [address] Blood Or Blood Bank Technician: Enrico Henry MD GFR/1.73 sq M.predicted among non-blacks MDRD (S/P/Bld) [Vol rate/Area] mL/min/{1.73_m2} Normal >60 [facility] Comment on above: Result Comment: These results are not intended for use in patients <18 years of age. eGFR results are calculated without a race factor using the 2020 CKD-EPI equation. Careful clinical correlation is recommended, particularly when comparing to results calculated using previous equations. The CKD-EPI equation is less accurate in patients with extremes of muscle mass, extra-renal metabolism of creatine, excessive creatine ingestion, or following therapy that affects renal tubular secretion. Performed By: #### C DP, HCG, BMP #### [facility] [address] [place] [phone] Blood Or Blood Bank Technician: Enrico Henry MD Glucose [Mass/Vol] 95 mg/dL Normal 74-99 [facility] Comment on above: Performed By: #### C DP, HCG, BMP #### [facility] [address] [place] [address] Blood Or Blood Bank Technician: Enrico Henry MD Potassium [Moles/Vol] 4.0 mmol/L Normal 3.7-5.3 [facility] Comment on above: Performed By: #### C DP, HCG, BMP #### [address] [address] Blood Or Blood Bank Technician: Enrico Henry MD Sodium [Moles/Vol] 139 mmol/L Normal 136-145 [facility] Comment on above: Performed By: #### C DP, HCG, BMP #### [facility] [address] [place] [address] Blood Or Blood Bank Technician: Enrioc Henry MD Urea nitrogen [Mass/Vol] 15 mg/dL Normal 6-20 [facility] Comment on above: Performed By: #### C DP, HCG, BMP #### [address] [address] Blood Or Blood Bank Technician: Enrico Henry MD CBC with Diffon 10-27-2023 Abs. Basophil 0.06 k/uL Normal 0.00-0.20 [facility] Comment on above: Performed By: #### C DP, HCG, BMP #### [facility] [address] [place] [address] Blood Or Blood Bank Technician: Enrico Henry MD Abs.Imm.Granulocyte 0.07 k/uL Normal 0.00-0.30 [facility] Comment on above: Performed By: #### C DP, HCG, BMP #### [facility] [address] [place] [address] Blood Or Blood Bank Technician: Enrico Henry MD Abs.Neutrophil (Seg) 8.46 k/uL High 1.50-8.10 [facility] Comment on above: Performed By: #### C DP, HCG, BMP #### [facility] [address] [place] [address] Blood Or Blood Bank Technician: Enrico Henry MD Basophils/100 WBC (Bld) 1 % Normal 0-2 [facility] Comment on above: Performed By: #### C DP, HCG, BMP #### [address] [address] Blood Or Blood Bank Technician: Enrico Henry MD Eosinophils (Bld) [#/Vol] 0.14 10*3/uL Normal 0.00-0.44 [facility] Comment on above: Performed By: #### C DP, HCG, BMP #### [address] [address] Blood Or Blood Bank Technician: Enrico Henry MD Eosinophils/100 WBC (Bld) 1 % Normal 1-4 [facility] Comment on above: Performed By: #### C DP, HCG, BMP #### [address] [address] Blood Or Blood Bank Technician: Enrico Henry MD Erythrocyte distribution width (RBC) [Ratio] 13.1 % Normal 11.8-14.4 [facility] Comment on above: Performed By: #### C DP, HCG, BMP #### [address] [address] Blood Or Blood Bank Technician: Enrico Henry MD Hematocrit (Bld) [Volume fraction] 40.6 % Normal 36.3-47.1 [facility] Comment on above: Performed By: #### C DP, HCG, BMP #### [address] [address] Blood Or Blood Bank Technician: Enrico Henry MD Hemoglobin (Bld) [Mass/Vol] 13.0 g/dL Normal 11.9-15.1 [facility] Comment on above: Performed By: #### C DP, HCG, BMP #### [facility] [address] [place] [address] Blood Or Blood Bank Technician: Enrico Henry MD Immature granulocytes/100 WBC (Bld) 1 % High 0 [facility] Comment on above: Performed By: #### C DP, HCG, BMP #### [address] [address] Blood Or Blood Bank Technician: Enrico Henry MD Lymphocytes (Bld) [#/Vol] 3.30 10*3/uL Normal 1.10-3.70 [facility] Comment on above: Performed By: #### C DP, HCG, BMP #### [place] [address] Blood Or Blood Bank Technician: Enrico Henry MD Lymphocytes/100 WBC (Bld) 26 % Normal 24-43 [facility] Comment on above: Performed By: #### C DP, HCG, BMP #### [place] [address] Blood Or Blood Bank Technician: Enrico Henry MD MCH (RBC) [Entitic mass] 29.7 pg Normal 25.2-33.5 [facility] Comment on above: Performed By: #### C DP, HCG, BMP #### [place] [address] Blood Or Blood Bank Technician: Enrico Henry MD MCHC (RBC) [Mass/Vol] 32.0 g/dL Normal 28.4-34.8 [facility] Comment on above: Performed By: #### C DP, HCG, BMP #### [place] [address] Blood Or Blood Bank Technician: Enrico Henry MD MCV (RBC) [Entitic vol] 92.7 fL Normal 82.6-102.9 [facility] Comment on above: Performed By: #### C DP, HCG, BMP #### [address] [address] Blood Or Blood Bank Technician: Enrico Henry MD Monocytes (Bld) [#/Vol] 0.73 10*3/uL Normal 0.10-1.20 [facility] Comment on above: Performed By: #### C DP, HCG, BMP #### [facility] [address] [place] [address] Blood Or Blood Bank Technician: Enrico Henry MD Monocytes/100 WBC (Bld) 6 % Normal 3-12 [facility] Comment on above: Performed By: #### C DP, HCG, BMP #### [facility] [address] [place] [address] Blood Or Blood Bank Technician: Enrico Henry MD Neutrophil (Seg) 65 % Normal 36-65 [facility] Comment on above: Performed By: #### C DP, HCG, BMP #### [facility] [address] [place] [address] Blood Or Blood Bank Technician: Enrico Henry MD NRBC Automated 0.0 per 100 WBC Normal 0.0 [facility] Comment on above: Performed By: #### C DP, HCG, BMP #### [facility] [address] [place] [address] Blood Or Blood Bank Technician: Enrico Henry MD Platelet mean volume (Bld) [Entitic vol] 9.0 fL Normal 8.1-13.5 [facility] Comment on above: Performed By: #### C DP, HCG, BMP #### [facility] [address] [place] [address] Blood Or Blood Bank Technician: Enrico Henry MD Platelets (Bld) [#/Vol] 251 10*3/uL Normal 138-453 [facility] Comment on above: Performed By: #### C DP, HCG, BMP #### [facility] [address] [place] [address] Blood Or Blood Bank Technician: Enrico Henry MD RBC (Bld) [#/Vol] 4.38 10*6/uL Normal 3.95-5.11 [facility] Comment on above: Performed By: #### C DP, HCG, BMP #### [facility] [address] [place] [address] Blood Or Blood Bank Technician: Enrico Henry MD WBC (Bld) [#/Vol] 12.8 10*3/uL High 3.5-11.3 [facility] Comment on above: Performed By: #### C DP, HCG, BMP #### [facility] [address] [place] [address] Blood Or Blood Bank Technician: Enrico Henry MD CT ABDOMEN PELVIS W IV CONTR Rajwinder 10-27-2023 CT ABDOMEN PELVIS W IV CONTRAST EXAMINATION: CT OF THE ABDOMEN AND PELVIS WITH CONTRAST 10/27/2023 1:40 pm TECHNIQUE: CT of the abdomen and pelvis was performed with the administration of intravenous contrast. Multiplanar reformatted images are provided for review. Automated exposure control, iterative reconstruction, and/or weight based adjustment of the mA/kV was utilized to reduce the radiation dose to as low as reasonably achievable. COMPARISON: 03/10/2020. HISTORY: ORDERING SYSTEM PROVIDED HISTORY: LLQ, Left flank pain TECHNOLOGIST PROVIDED HISTORY: LLQ, Left flank pain Decision Support Exception - unselect if not a suspected or confirmed emergency medical condition->Emergency Medical Condition (MA) Reason for Exam: LLQ, Left flank pain FINDINGS: Lower Chest: No acute infiltrate at the lung bases. Organs: The liver, spleen, pancreas and adrenal glands are unremarkable. Status post cholecystectomy with no biliary dilatation. Both kidneys enhance normally. No mass or significant hydronephrosis. GI/Bowel: The stomach and duodenal sweep are unremarkable. No small bowel distension. No evidence of appendicitis. No pericolonic inflammatory changes. Pelvis: Small quantity of free pelvic fluid. The uterus and adnexal structures are unremarkable. The bladder is contracted. Peritoneum/Retroperitoneu m: The abdominal aorta is normal in caliber. No pathologic retroperitoneal adenopathy or upper abdominal ascites. Bones/Soft Tissues: No acute osseous or soft tissue abnormality. IMPRESSION: 1. No acute findings within the abdomen or pelvis. No acute bowel pathology. 2. Small quantity of free pelvic fluid, likely physiologic. Interpreted by: Jaelyn Alejandra MD Signed by: Jaelyn Alejandra MD 10/27/23 Final result Normal [facility] HCG Screen, Bloodon 10-27-19 24 HCG Screen, Blood Negative Normal [facility] Comment on above: Result Comment: Spec imens with hCG levels near the threshold of the test (25 mIU/mL) may give a negative or indeterminate result. In such cases, another test should be performed with a new specimen in 48-72 hours. If early is suspected clinically in this setting, correlation with quantitative serum b-hCG level is suggested. [facility] has confirmed the use of plasma for this test. This has not been cleared or approved by the [place]. Food and Drug Administration. The FDA has determined that such clearance is not necessary. Performed By: #### C DP, HCG, BMP #### [facility] [address] [phone] Blood Or Blood Bank Technician: Enrico Henry MD DUP ABD PEL RETRO SCROT L IMITEDon 10-27-2023 US DUP ABD PEL RETRO SCROT LIMITED EXAMINATION: PELVIC ULTRASOUND 10/27/2023 TECHNIQUE: Transabdominal and transvaginal pelvic duplex ultrasound using B-mode/jiménez scaled imaging, Doppler spectral analysis and color flow Doppler was obtained. COMPARISON: None HISTORY: ORDERING SYSTEM PROVIDED HISTORY: L ovarian cyst TECHNOLOGIST PROVIDED HISTORY: L ovarian cyst FINDINGS: Measurements: Uterus: 8.2 x 3.2 x 4.0 cm. Endometrial stripe: 0.5 cm. Right Ovary: Not measured. Left Ovary: 3.1 x 1.9 x 2.6 cm. Ultrasound Findings: Uterus: Uterus demonstrates normal myometrial echotexture. Endometrial stripe: Endometrial stripe is within normal limits. Right Ovary: The right ovary is not visualized. No right adnexal mass. Left Ovary: Normal stroma and follicles are noted. Color Doppler flow was noted in the ovary with arterial and venous waveforms. Free Fluid: No free pelvic fluid. IMPRESSION: 1. Nonvisualization of the right ovary. No right adnexal mass. 2. Normal appearance of the uterus and left ovary. Interpreted by: Ar Velasco MD Signed by: Ar Velasco MD 10/27/23 Final result Normal [facility] US NON OB TRANSVAGINALon US NON OB TRANSVAGINAL EXAMINATION: PELVIC ULTRASOUND 10/27/2023 TECHNIQUE: Transabdominal and transvaginal pelvic duplex ultrasound using B-mode/jiménez scaled imaging, Doppler spectral analysis and color flow Doppler was obtained. COMPARISON: None HISTORY: ORDERING SYSTEM PROVIDED HISTORY: L ovarian cyst TECHNOLOGIST PROVIDED HISTORY: L ovarian cyst FINDINGS: Measurements: Uterus: 8.2 x 3.2 x 4.0 cm. Endometrial stripe: 0.5 cm. Right Ovary: Not measured. Left Ovary: 3.1 x 1.9 x 2.6 cm. Ultrasound Findings: Uterus: Uterus demonstrates normal myometrial echotexture. Endometrial stripe: Endometrial stripe is within normal limits. Right Ovary: The right ovary is not visualized. No right adnexal mass. Left Ovary: Normal stroma and follicles are noted. Color Doppler flow was noted in the ovary with arterial and venous waveforms. Free Fluid: No free pelvic fluid. IMPRESSION: 1. Nonvisualization of the right ovary. No right adnexal mass. 2. Normal appearance of the uterus and left ovary. Interpreted by: Ar Velasco MD Signed by: Ar Velasco MD 10/27/23 Final result Normal [facility] US PELVIS COMPLETEon 024 US PELVIS COMPLETE EXAMINATION: PELVIC ULTRASOUND 10/27/2023 TECHNIQUE: Transabdominal and transvaginal pelvic duplex ultrasound using B-mode/jiménez scaled imaging, Doppler spectral analysis and color flow Doppler was obtained. COMPARISON: None HISTORY: ORDERING SYSTEM PROVIDED HISTORY: L ovarian cyst TECHNOLOGIST PROVIDED HISTORY: L ovarian cyst FINDINGS: Measurements: Uterus: 8.2 x 3.2 x 4.0 cm. Endometrial stripe: 0.5 cm. Right Ovary:Not measured. Left Ovary: 3.1 x 1.9 x 2.6 cm. Ultrasound Findings: Uterus: Uterus demonstrates normal myometrial echotexture. Endometrial stripe: Endometrial stripe is within normal limits. Right Ovary: The right ovary is not visualized. No right adnexal mass. Left Ovary: Normal stroma and follicles are noted. Color Doppler flow was noted in the ovary with arterial and venous waveforms. Free Fluid: No free pelvic fluid. IMPRESSION: 1. Nonvisualization of the right ovary. No right adnexal mass. 2. Normal appearance of the uterus and left ovary. Interpreted by: Ar Velasco MD Signed by: Ar Velasco MD 10/27/23 Final result Normal [facility] Urinalysis w/ Microon 2023 Bacteria None Normal NONE [facility] Comment on above: Performed By: #### U AMIC #### [address] [address] Blood Or Blood Bank Technician: Enrico Henry MD Bilirubin, SemiQt,Ur Negative Normal NEG [facility] Comment on above: Performed By: #### U AMIC #### [address] [address] Blood Or Blood Bank Technician: Enrico Henry MD Blood, Urine MODERATE Abnormal NEG [facility] Comment on above: Performed By: #### U AMIC #### [address] [address] Blood Or Blood Bank Technician: Enrico Henry MD Casts 10 TO 20 HYALINE Normal 0-8 [facility] Comment on above: Result Comment: Refe rence range defined for non-centrifuged specimen. Performed By: #### U AMIC #### [address] [address] Blood Or Blood Bank Technician: Enrico Henry MD Clarity (U) Cloudy Abnormal CLEAR [facility] Comment on above: Performed By: #### U AMIC #### [address] [address] Blood Or Blood Bank Technician: Enrico Henry MD Color (U) Yellow Normal YEL [facility] Comment on above: Performed By: #### U AMIC #### [address] [address] Blood Or Blood Bank Technician: Enrico Henry MD Epithelial cells LM Ql (Urine sed) 5 TO 10 Normal 0-5 [facility] Comment on above: Performed By: #### U AMIC #### [address] [address] Blood Or Blood Bank Technician: Enrico Henry MD Glucose Ql (U) Negative Normal NEG [facility] Comment on above: Performed By: #### U AMIC #### [address] [address] Blood Or Blood Bank Technician: Enrico Henry MD Ketones Ql (U) Negative Normal NEG [facility] Comment on above: Performed By: #### U AMIC #### [address] [address] Blood Or Blood Bank Technician: Enrico Henry MD Leukocyte esterase Test strip Ql (U) SMALL Abnormal NEG [facility] Comment on above: Performed By: #### U AMIC #### [address] [address] Blood Or Blood Bank Technician: Enrico Henry MD Nitrite,Ur Negative Normal NEG [facility] Comment on above: Performed By: #### U AMIC #### [address] [address] Blood Or Blood Bank Technician: Enrico Henry MD PH,Ur 5.0 Normal 5.0-8.0 [facility] Comment on above: Performed By: #### U AMIC #### [address] [address] Blood Or Blood Bank Technician: Enrico Henry MD Protein Ql (U) Negative Normal NEG [facility] Comment on above: Performed By: #### U AMIC #### [address] [address] Blood Or Blood Bank Technician: Enrico Henry MD Spec. [place],Ur 1.033 High 1.005-1.03 0 [facility] Comment on above: Performed By: #### U AMIC #### [address] [address] Blood Or Blood Bank Technician: Enrico Henry MD Urine RBC's 2 TO 5 Normal 0-4 [facility] Comment on above: Result Comment: Refe rence range defined for non-centrifuged specimen. Performed By: #### U AMIC #### [facility] [place], [place] [address] Blood Or Blood Bank Technician: Enrico Henry MD Urine WBC's 20 TO 50 Normal 0-5 [facility] Comment on above: Performed By: #### U AMIC #### [address] [id number] Blood Or Blood Bank Technician: Enrico Henry MD Urobilinogen,Ur Normal Normal 0.0-1.0 [facility] Comment on above: Performed By: #### U AMIC #### [address] [id number] Blood Or Blood Bank Technician: Enrico Henry MD Automated basophil %Ordered By: Amaury Galindo on 10-04-2023 Basophils/100 WBC (Bld) 0.5 % Normal . [facility] Comment on above: Performed By: #### A DDONUALEEANN, [facility] #### [address] Automated basophil countOrde red By: Amaury Galindo on 10-04-2023 Basophils (Bld) [#/Vol] 0.1 10*3/uL Normal 0.0-0.2 [facility] Comment on above: Result Comment: PERF ORMED BY: [place] [address] PATHOLOGIST [employer] JL PERKINS M.D. Performed By: #### A DDONUAPLUS, [facility] #### [address] Automated blood monocyte cou ntOrdered By: Amaury Galindo on 10-04-2023 Monocytes (Bld) [#/Vol] 1.0 10*3/uL High 0.0-0.8 [facility] Comment on above: Performed By: #### A DDONUAPLUS, [facility] #### [address] Automated eosinophil %Ordere d By: Amaury Galindo on 10-04-2023 Eosinophils/100 WBC (Bld) 1.7 % Normal . [facility] Comment on above: Performed By: #### A ELAINE [facility] #### [address] Automated eosinophil countOr dered By: Amaury Galindo on 10-04-2023 Eosinophils (Bld) [#/Vol] 0.3 10*3/uL Normal 0.0-0.45 [facility] Comment on above: Performed By: #### A ELAINE [facility] #### [address] Automated monocyte %Ordered By: Amaury Galindo on 10-04-2023 Monocytes/100 WBC (Bld) 6.4 % Normal . [facility] Comment on above: Performed By: #### A ELAINE [facility] #### [address] Automated neutrophil %Ordere d By: Amaury Galindo on 10-04-2023 Neutrophils/100 WBC (Bld) 60.2 % Normal . [facility] Comment on above: Performed By: #### A ELAINE [facility] #### [address] Bacteria [Presence] in Urine by AutomatedOrdered By: Amaury Galindo on 10-04-2023 Bacteria Auto Ql (U) 2+ [HPF] High None Seen [facility] Basic Metabolic Panelon Creatinine Clr Calc Pharmacy 97.19 Normal [facility] Comment on above: Result Comment: PERF ORMED BY: [place] [address] PATHOLOGIST [employer] JL PERKINS M.D. Performed By: #### A ELAINE [facility] #### [address] GFR/1.73 sq M.predicted MDRD (S/P/Bld) [Vol rate/Area] mL/min/{1.73_m2} Normal [facility] Comment on above: Performed By: #### A ELAINE [facility] #### [address] [address] [facility] Bilirubin Test strip Ql (U)O rdered By: Amaury Galindo on 10-04-2023 Bilirubin Ql (U) Negative Negative [facility] CT abdomen pelvis wo conon 0 10-04-2023 CT abdomen pelvis wo con [facility] [address] [place] [address] [place] [address] CT Scan Report Signed Patient: Tracie Samuels MR#: [id number] : 1990 Acct:[id number] Age/Sex: 33 / F ADM Date: 10/03/23 Loc: ER Room: Type: [facility] ER Attending Dr: Copies to: Amaury Galindo DO Ordering Provider: Amaury Galindo DO Date of Service: 10/04/23 CT/CT abdomen pelvis wo con: r/o obstructing stone CT ABDOMEN AND PELVIS WITHOUT CONTRAST COMPARISON: 09/20/2023 CLINICAL DATA: Pain radiating from the left abdomen to the arm. Spiral images were obtained through the abdomen and pelvis without contrast. This CT exam was performed using one or more following dose reduction techniques: Automated exposure control, adjustment of the mA and/or kV according to patient size, or use of iterative reconstruction technique. Limited cuts through the lung bases show no contributory findings. Assessment of the intra-abdominal organs is slightly limited by the absence of contrast. The gallbladder is surgically absent. No common duct stones are noted. The liver, spleen, pancreas and adrenal glands show no acute findings. A small stone is again visualized at the upper pole of the left kidney. No hydronephrosis is seen. There is no ureteral dilatation or calculi. The abdominal aorta is normal caliber. Tiny abdominal lymph nodes are visualized. No ascites is seen. There is food debris within the stomach. There are nondistended small bowel loops. There is colonic stool, greater on the right. There is a tiny umbilical hernia containing fat. Slight levoscoliotic curvature is visualized at the spine. Images through the pelvis show no no dilated small bowel. No appendiceal inflammation is present though there are continued small surrounding lymph nodes. There is a small amount of distal colonic stool. No diverticular disease is seen. There is a left ovarian cyst cyst measuring approximately 2.5 cm in size. There is a small amount of free fluid at posterior cul-de-sac. This might be physiologic. There are no bladder abnormalities for the degree of distention. CT/CT abdomen pelvis wo con IMPRESSION: CONTINUED LEFT NEPHROLITHIASIS. NO BOWEL OR URINARY TRACT OBSTRUCTION. SMALL LEFT OVARIAN CYST. NO OTHER ACUTE FINDINGS. Impression dictated by: Taylor Wiley M.D.10/04/2023 9:37 AM Dictation Location: [place] [address] Transcribed By: [facility] 10/04/23936 Dictated By: Taylor Wiley MD 10/04/2330 Signed By: 10/04/23936 Normal [facility] Calcium [Mass/volume] in Ser um or PlasmaOrdered By: Amaury Galindo on 10-04-2023 Calcium [Mass/Vol] 8.9 mg/dL Normal 8.6-10.[address] [facility] Comment on above: Performed By: #### A ELAINE [facility] #### [facility] [address] Carbon dioxide, total [Moles /volume] in Serum or PlasmaOrdered By: Amaury Galindo on 10-04-2023 CO2 [Moles/Vol] 24.5 mmol/L Normal 21.0-31.0 [facility] Comment on above: Performed By: #### A ELAINE [facility] #### [facility] [address] [place] [id number] [place] Chloride [Moles/volume] in S phoebe or PlasmaOrdered By: Amaury Galindo on 10-04-2023 Chloride [Moles/Vol] 104 mmol/L Normal 98-107 [facility] Comment on above: Performed By: #### A ELAINE [facility] #### [facility] [address] [place] [id number] [place] Color of Urine by AutoOrdere d By: Amaury Galindo on 10-04-2023 Color (U) Light-yellow Normal Yellow [facility] Comment on above: Order Comment: Name Collection Type:: Clean-Voided Midstream Performed By: #### B MP, LIPASE, CBC, PT, PTT, HEPATIC #### [address] Complete Blood Count Auto Di ffon 10-04-2023 Mean Corpuscular HGB Conc 33.3 g/dL Normal 32.0-35.0 [facility] Comment on above: Performed By: #### A DDONUAPLUS [facility] #### [address] Monocytes/100 WBC (Bld) 18.44 % Normal 0.00-20.00 [facility] Comment on above: Performed By: #### A DDONUALEEANN [facility] #### [address] NRBC% 0.1 /100{WBC} Normal 0-0.5 [facility] Comment on above: Performed By: #### A DDONUALEEANN [facility] #### [address] Creatinine [Mass/volume] in Serum or PlasmaOrdered By: Amaury Galindo on 10-04-2023 Creatinine [Mass/Vol] 0.84 mg/dL Normal 0.60-1.20 [facility] Comment on above: Performed By: #### A DDONUAPLUS [facility] #### [place] [address] [place] Dipstick and Microscopicon 0 10-04-2023 Bacteria,Urine 2+ High None Seen [facility] Comment on above: Order Comment: Name Collection Type:: Clean-Voided Midstream Performed By: #### B MP, LIPASE, CBC, PT, PTT, HEPATIC #### [address] Bilirubin,Urine Negative Normal Negative [facility] Comment on above: Order Comment: Name Collection Type:: Clean-Voided Midstream Performed By: #### B MP, LIPASE, CBC, PT, PTT, HEPATIC #### [facility] [address] [place] [id number] [facility] Glucose Ql (U) Normal Normal Normal [facility] Comment on above: Order Comment: Name Collection Type:: Clean-Voided Midstream Performed By: #### B MP, LIPASE, CBC, PT, PTT, HEPATIC #### [facility] [address] Hyaline Casts,Urine None Normal 0-8 [facility] Comment on above: Order Comment: Name Collection Type:: Clean-Voided Midstream Performed By: #### B MP, LIPASE, CBC, PT, PTT, HEPATIC #### [facility] [address] Mucus,Urine 1+ Critically abnormal [facility] Comment on above: Order Comment: Name Collection Type:: Clean-Voided Midstream Performed By: #### B MP, LIPASE, CBC, PT, PTT, HEPATIC #### [facility] [address] Nitrite,Urine Negative Normal Negative [facility] Comment on above: Order Comment: Name Collection Type:: Clean-Voided Midstream Performed By: #### B MP, LIPASE, CBC, PT, PTT, HEPATIC #### [facility] [address] [place] [id number] [facility] Occult Blood,Urine 1+ High Negative [facility] Comment on above: Order Comment: Name Collection Type:: Clean-Voided Midstream Performed By: #### B MP, LIPASE, CBC, PT, PTT, HEPATIC #### [facility] [address] [place] [phone] [place] Protein,Urine Negative Normal Negative [facility] Comment on above: Order Comment: Name Collection Type:: Clean-Voided Midstream Performed By: #### B MP, LIPASE, CBC, PT, PTT, HEPATIC #### [facility] [address] [place] [phone] [place] RBC,Urine 5-9 High 0-4 [facility] Comment on above: Order Comment: Name Collection Type:: Clean-Voided Midstream Performed By: #### B MP, LIPASE, CBC, PT, PTT, HEPATIC #### [address] Specificy [place],Urine 1.026 Normal 1.001-1.03 0 [facility] Comment on above: Order Comment: Name Collection Type:: Clean-Voided Midstream Performed By: #### B MP, LIPASE, CBC, PT, PTT, HEPATIC #### [address] Squamous Epithelial Cell,Urine 20-49 High 0-2 [facility] Comment on above: Order Comment: Name Collection Type:: Clean-Voided Midstream Performed By: #### B MP, LIPASE, CBC, PT, PTT, HEPATIC #### [address] Urobilinogen,Urine Normal Normal Normal [facility] Comment on above: Order Comment: Name Collection Type:: Clean-Voided Midstream Performed By: #### B MP, LIPASE, CBC, PT, PTT, HEPATIC #### [address] WBC CLUMP, Urine Few High None Seen [facility] Comment on above: Order Comment: Name Collection Type:: Clean-Voided Midstream Performed By: #### B MP, LIPASE, CBC, PT, PTT, HEPATIC #### [address] WBC,Urine 20-49 High 0-4 [facility] Comment on above: Order Comment: Name Collection Type:: Clean-Voided Midstream Performed By: #### B MP, LIPASE, CBC, PT, PTT, HEPATIC #### [address] Epithelial cells.squamous [# /area] in Urine sediment by Automated countOrdered By: Amaury Galindo on 10-04-2023 Epithelial cells.squamous Auto (Urine sed) [#/Area] 20-49 [HPF] High 0-2 [facility] Erythrocyte distribution wid th [Ratio] by Automated countOrdered By: Amaury Galindo on 10-04-2023 Erythrocyte distribution width (RBC) [Ratio] 13.2 % Normal 11.9-15.3 [facility] Comment on above: Performed By: #### A ADANUALEEANN [facility] #### [facility] [address] [place] [id number] [facility] Erythrocytes [#/area] in Uri ne sediment by Automated countOrdered By: Amaury Galindo on 10-04-2023 RBC Auto (Urine sed) [#/Area] 5-9 [HPF] High 0-4 [facility] Erythrocytes [#/volume] in B lood by Automated countOrdered By: Amaury Galindo on 10-04-2023 RBC (Bld) [#/Vol] 4.40 10*6/uL Normal 3.60-5.00 [facility] Comment on above: Performed By: #### A DDONUALEEANN, [facility] #### [facility] [address] [place] [id number] [place] Glucose [Mass/volume] in Ser um or PlasmaOrdered By: Amaury Galindo on 10-04-2023 Glucose [Mass/Vol] 98 mg/dL Normal 70-[address] [facility] Comment on above: ADA recommended refe rence rangeRandom Glucose Reference Range is dependent on time and content of last meal. Glucose of more than 200 mg/dL in a nonstressed, ambulatory subject supports the diagnosis of Diabetes Mellitus. Result Comment: [place] om Glucose Reference Range is dependent on time and content of last meal. Glucose of more than 200 mg/dL in a nonstressed, ambulatory subject supports the diagnosis of Diabetes Mellitus. ADA recommended reference range Performed By: #### A DDONUAPLUS, [facility] #### [facility] [address] [place] [address] [place] Glucose [Mass/volume] in Uri ne by Test stripOrdered By: Amaury Galindo on 10-04-2023 Glucose Test strip (U) [Mass/Vol] Normal mg/dL Normal [facility] HCG ( test) IA.rapi d Ql (U)Ordered By: Amaury Galindo on 10-04-2023 HCG ( test) Ql (U) Negative [facility] HCG,Urineon 10-04-2023 Beta HCG ( test) Ql (U) Negative Normal [facility] Comment on above: Order Comment: Name Collection Type:: Clean-Voided Midstream Result Comment: PERF ORMED BY: [place] [address] PATHOLOGIST [employer] JL PERKINS M.D. Performed By: #### B MP, LIPASE, CBC, PT, PTT, HEPATIC #### [address] Hematocrit [Volume Fraction] of Blood by Automated countOrdered By: Amaury Galindo on 10-04-2023 Hematocrit (Bld) [Volume fraction] 39.0 % Normal 34.0-46.4 [facility] Comment on above: Performed By: #### A DDONUAPLUS, [facility] #### [address] Hemoglobin Test strip Ql (U) Ordered By: Amaury Galindo on 10-04-2023 Hemoglobin Ql (U) 1+ High Negative [facility] Hemoglobin [Mass/volume] in BloodOrdered By: Amaury Galindo on 10-04-2023 Hemoglobin (Bld) [Mass/Vol] 13.0 g/dL Normal 11.8-15.4 [facility] Comment on above: Performed By: #### A DDONUAPLUS, [facility] #### [address] Hyaline casts [#/area] in Ur ine sediment by Automated countOrdered By: Amaury Galindo on 10-04-2023 Hyaline casts Auto (Urine sed) [#/Area] None [LPF] 0-8 [facility] Ketones [Presence] in Urine by Test stripOrdered By: Amaury Galindo on 10-04-2023 Ketones Ql (U) Negative Normal Negative [facility] Comment on above: Order Comment: Name Collection Type:: Clean-Voided Midstream Performed By: #### B MP, LIPASE, CBC, PT, PTT, HEPATIC #### [address] Leukocyte clumps [Presence] in Urine by AutomatedOrdered By: Amaury Galindo on 10-04-2023 Leukocyte clumps Auto Ql (U) Few [LPF] High None Seen [facility] Leukocyte esterase [Presence ] in Urine by Test stripOrdered By: Amaury Galindo on 10-04-2023 Leukocyte esterase Test strip Ql (U) 2+ High Negative [facility] Comment on above: Order Comment: Name Collection Type:: Clean-Voided Midstream Performed By: #### B MP, LIPASE, CBC, PT, PTT, HEPATIC #### [facility] [address] [place] [address] [place] Leukocytes [#/area] in Urine sediment by Automated countOrdered By: Amaury Galindo on 10-04-2023 WBC Auto (Urine sed) [#/Area] 20-49 [HPF] High 0-4 [facility] Leukocytes [#/volume] correc rachelle for nucleated erythrocytes in Blood by Automated counOrdered By: Amaury Galindo on 10-04-2023 WBC corrected for nucl RBC Auto (Bld) [#/Vol] 15.4 10*3/uL High 3.8-11.6 [facility] Leukocytes [#/volume] in Blo od by Automated countOrdered By: Amaury Galindo on 10-04-2023 WBC (Bld) [#/Vol] 15.4 10*3/uL High 3.8-11.6 [facility] Comment on above: Performed By: #### A ELAINE [facility] #### [facility] [address] [place] [address] [place] Lymphocytes [#/volume] in Bl ood by Automated countOrdered By: Amaury Galindo on 10-04-2023 Lymphocytes (Bld) [#/Vol] 4.8 10*3/uL Normal 1.00-4.8 [facility] Comment on above: Performed By: #### A ELAINE [facility] #### [facility] [address] [place] [address] [place] Lymphocytes/100 leukocytes i n Blood by Automated countOrdered By: Amaury Galindo on 10-04-2023 Lymphocytes/100 WBC (Bld) 31.2 % Normal . [facility] Comment on above: Performed By: #### A JEFF HENRY #### [address] MCH [Entitic mass] by Automa rachelle countOrdered By: Amaury Galindo on 10-04-2023 MCH (RBC) [Entitic mass] 29.5 pg Normal 24.7-34.3 [facility] Comment on above: Performed By: #### A ELAINE MARIBEL #### [address] MCHC Auto (RBC) [Mass/Vol]Or dered By: Amaury Galindo on 10-04-2023 MCHC (RBC) [Mass/Vol] 33.3 g/dL 32.0-35.0 [facility] MCV [Entitic volume] by Auto mated countOrdered By: Amaury Galindo on 10-04-2023 MCV (RBC) [Entitic vol] 88.7 fL Normal 80-100 [facility] Comment on above: Performed By: #### A ELAINE [facility] #### [address] Monocyte distribution width [Entitic volume] in Blood by AutomatedOrdered By: Amaury Galindo on 10-04-2023 Monocyte distribution width Auto (Bld) [Entitic vol] 18.44 % 0.00-20.00 [facility] Mucus [Presence] in Urine by AutomatedOrdered By: Amaury Galindo on 10-04-2023 Mucus Auto Ql (U) 1+ [LPF] Abnormal [facility] Neutrophils [#/volume] in Bl ood by Automated countOrdered By: Amaury Galindo on 10-04-2023 Neutrophils (Bld) [#/Vol] 9.2 10*3/uL High 1.8-7.7 [facility] Comment on above: Performed By: #### A ELAINE MARIBEL #### [address] Nitrite Test strip Ql (U)Ord ered By: Amaury Galindo on 10-04-2023 Nitrite Ql (U) Negative Negative [facility] No Panel InformationOrdered By: Amaury Galindo on 10-04-2023 Estimated GFR (CKD-EPI) > 60.0 mL/Min [facility] Creatinine Clearance (Chem 97.19 [facility] Nucleated erythrocytes [Pres ence] in Blood by Automated countOrdered By: Amaury Galindo on 10-04-2023 Nucleated RBC Auto Ql (Bld) 0.1 /100{WBC} 0-0.5 [facility] Platelet mean volume [Entiti c volume] in Blood by Automated countOrdered By: Amaury Galindo on 10-04-2023 Platelet mean volume (Bld) [Entitic vol] 7.3 fL Normal 6.3-10.7 [facility] Comment on above: Performed By: #### A ELAINE [facility] #### [facility] [address] Platelets [#/volume] in Bloo d by Automated countOrdered By: Amaury Galindo on 10-04-2023 Platelets (Bld) [#/Vol] 260 10*3/uL Normal 150-450 [facility] Comment on above: Performed By: #### A ELAINE [facility] #### [facility] [address] [place] [address] Potassium [Moles/volume] in Serum or PlasmaOrdered By: Amaury Galindo on 10-04-2023 Potassium [Moles/Vol] 3.6 mmol/L Normal 3.5-5.1 [facility] Comment on above: Performed By: #### A ELAINE [facility] #### [facility] [address] Protein Test strip (U) [Mass /Vol]Ordered By: Amaury Galindo on 10-04-2023 Protein (U) [Mass/Vol] Negative Negative [facility] Serum or plasma anion gap de terminationOrdered By: Amaury Galindo on 10-04-2023 Anion gap [Moles/Vol] 10.1 mmol/L Normal 6.0-15.0 [facility] Comment on above: Performed By: #### A JEFF HENRY #### [address] Sodium [Moles/volume] in Ser um or PlasmaOrdered By: Amaury Galindo on 10-04-2023 Sodium [Moles/Vol] 135 mmol/L Low 136-[address] [facility] Comment on above: Performed By: #### A ELAINE [facility] #### [address] Specific gravity Test strip (U) [Rel density]Ordered By: Amaury Galindo on 10-04-2023 Specific gravity (U) [Rel density] 1.026 1.001-1.03 0 [facility] Urea nitrogen [Mass/volume] in Serum or PlasmaOrdered By: Amaury Galindo on 10-04-2023 Urea nitrogen [Mass/Vol] 14 mg/dL Normal 7-25 [facility] Comment on above: Performed By: #### A ELAINE [facility] #### [address] Urine Cultureon 10-04-2023 Bacteria identified Cx Nom (U) >100,000 colonies/ml mixed bacterial skin contaminants 2 Days PERFORMED BY: [place] [address] PATHOLOGIST [employer] JL PERKINS M.D. Normal [facility] Comment on above: Performed By: #### B MP, LIPASE, CBC, PT, PTT, HEPATIC #### [address] Urine appearanceOrdered By: Amaury Galindo on 10-04-2023 Appearance (U) Cloudy Critically abnormal Clear [facility] Comment on above: Order Comment: Name Collection Type:: Clean-Voided Midstream Performed By: #### B MP, LIPASE, CBC, PT, PTT, HEPATIC #### [address] Urobilinogen Test strip (U) [Mass/Vol]Ordered By: Amaury Galindo on 10-04-2023 Urobilinogen (U) [Mass/Vol] Normal mg/dL Normal [facility] pH of Urine by Test stripOrd ered By: Amaury Galindo on 10-04-2023 pH (U) 6.0 [pH] Normal 5.0-9.0 [facility] Comment on above: Order Comment: Name Collection Type:: Clean-Voided Midstream Performed By: #### B MP, LIPASE, CBC, PT, PTT, HEPATIC #### [address] Alanine aminotransferase [En zymatic activity/volume] in Serum or PlasmaOrdered By: Amaury Galindo on 09-20-2023 ALT [Catalytic activity/Vol] 13 U/L Normal 7-52 [facility] Comment on above: Performed By: #### A COLLEENONBELINDA [facility] #### [place] [address] [place] Albumin [Mass/volume] in Ser um or Plasma by Bromocresol green (BCG) dye binding methoOrdered By: Amaury Galindo on 09-20-2023 Albumin BCG dye [Mass/Vol] 4.1 g/dL 3.5-5.7 [facility] Alkaline phosphatase [Enzyma tic activity/volume] in Serum or PlasmaOrdered By: Amaury Galindo on 09-20-2023 ALP [Catalytic activity/Vol] 107 U/L High 34-104 [facility] Comment on above: Performed By: #### A [facility]INE [facility] #### [address] Aspartate aminotransferase [ Enzymatic activity/volume] in Serum or PlasmaOrdered By: Amaury Galindo on 09-20-2023 AST [Catalytic activity/Vol] 15 U/L Normal 13-39 [facility] Comment on above: Performed By: #### [facility] #### [address] Automated basophil %Ordered By: Amaury Galindo on 09-20-2023 Basophils/100 WBC (Bld) 0.6 % Normal . [facility] Comment on above: Performed By: #### A ELAINE [facility] #### [address] Automated basophil countOrde red By: Amaury Galindo on 09-20-2023 Basophils (Bld) [#/Vol] 0.1 10*3/uL Normal 0.0-0.2 [facility] Comment on above: Result Comment: PERF ORMED BY: [place] [address] PATHOLOGIST [employer] JL PERKINS M.D. Performed By: #### A ELAINE [facility] #### [address] Automated blood monocyte cou ntOrdered By: Amaury Galindo on 09-20-2023 Monocytes (Bld) [#/Vol] 0.5 10*3/uL Normal 0.0-0.8 [facility] Comment on above: Performed By: #### A ELAINE [facility] #### [address] Automated eosinophil %Ordere d By: Amaury Galindo on 09-20-2023 Eosinophils/100 WBC (Bld) 2.1 % Normal . [facility] Comment on above: Performed By: #### A ELAINE [facility] #### [address] Automated eosinophil countOr dered By: Amaury Galindo on 09-20-2023 Eosinophils (Bld) [#/Vol] 0.3 10*3/uL Normal 0.0-0.45 [facility] Comment on above: Performed By: #### A ELAINE [facility] #### [address] Automated monocyte %Ordered By: Amaury Galindo on 09-20-2023 Monocytes/100 WBC (Bld) 4.3 % Normal . [facility] Comment on above: Performed By: #### A ELAINE [facility] #### [address] Automated neutrophil %Ordere d By: Amaury Galindo on 09-20-2023 Neutrophils/100 WBC (Bld) 52.5 % Normal . [facility] Comment on above: Performed By: #### A ELAINE [facility] #### [address] Bacteria [Presence] in Urine by AutomatedOrdered By: Amaury Galindo on 09-20-2023 Bacteria Auto Ql (U) None seen [HPF] None Seen [facility] Basic Metabolic Panelon 08-27 Creatinine Clr Calc Pharmacy 92.60 Normal [facility] Comment on above: Performed By: #### A ELAINE [facility] #### [address] GFR/1.73 sq M.predicted MDRD (S/P/Bld) [Vol rate/Area] mL/min/{1.73_m2} Normal [facility] Comment on above: Performed By: #### A ELAINE [facility] #### [address] Bilirubin Test strip Ql (U)O rdered By: Amaury Galindo on 09-20-2023 Bilirubin Ql (U) Negative Negative [facility] Bilirubin.direct [Mass/volum e] in Serum or PlasmaOrdered By: Amaury Galindo on 09-20-2023 Bilirubin.direct [Mass/Vol] 0.00 mg/dL Low 0.03-0.18 [facility] Comment on above: If the DBIL is less than 0.1, IBIL is not able to becalculated. Bilirubin.total [Mass/volume ] in Serum or PlasmaOrdered By: Amaury Galindo on 09-20-2023 Bilirubin [Mass/Vol] 0.3 mg/dL Normal 0.3-1.0 [facility] Comment on above: Performed By: #### A DDHECTORUALEEANN [facility] #### [facility] [address] [place] [id number] [facility] CT abdomen pelvis wo conon 0 09-20-2023 CT abdomen pelvis wo con [facility] [place] [id number] Scan Report Signed Patient: Tracie Samuels MR#: [id number] : 1990 Acct:[id number] Age/Sex: 33 / F ADM Date: 09/20/23 Loc: ER Room: Type: [facility] ER Attending Dr: Copies to: Jose Miguel Soria DO, RES Matthew M McCarthy, DO Ordering Provider: Jose Miguel Soria DO, RES Date of Service: 09/20/23 CT/CT abdomen pelvis wo con: flank/abd pain CT ABDOMEN AND PELVIS WITHOUT INTRAVENOUS CONTRAST: CLINICAL HISTORY: Left flank pain radiating into left upper quadrant with nausea and urinary frequency for 2 days. COMPARISON: CT abdomen and pelvis 07/14/2023 TECHNIQUE: Spiral images were obtained through the abdomen and pelvis without intravenous contrast. This CT exam was performed using one or more following dose reduction techniques: Automated exposure control, adjustment of the mA and/or kV according to patient size, or use of iterative reconstruction technique. FINDINGS: Lung Bases: [No acute findings.] Organs:Suboptimal evaluation due to lack of IV contrast. Gallbladder has been removed. Liver spleen pancreas and adrenal glands all appear unremarkable. Kidneys demonstrate 3 mm stone left kidney. Right kidney appears unremarkable. Abdominal appears normal in caliber.[ GI: Stomach is grossly unremarkable. Small bowel appears nondilated. Appendix is normal. No acute colonic abnormality.[ Pelvis:[Urinary bladder is grossly unremarkable. Uterus is grossly unremarkable. No adnexal mass.] Peritoneum/Retroperitoneu m:No free air, free fluid or lymphadenopathy.[ Abd wall/Bones:Abdominal wall demonstrates no acute findings. Osseous structures demonstrate degenerative change.[ CT/CT abdomen pelvis wo con IMPRESSION: Left nephrolithiasis. No obstructive uropathy. Impression dictated by: Dale Huerta Jr., D.OCheryl09/20/2023 8:52 AM Dictation Location: RADIO-PC-12 Transcribed By: OCTAVIANO 09/20/2352 Dictated By: Dale Huerta Jr, DO 09/20/23 0846 Signed By: 09/20/23 08 Normal [facility] Calcium [Mass/volume] in Ser um or PlasmaOrdered By: Amaury Galindo on 09-20-2023 Calcium [Mass/Vol] 9.0 mg/dL Normal 8.6-10.[address] [facility] Comment on above: Performed By: #### A ELAINE CG #### [address] Carbon dioxide, total [Moles /volume] in Serum or PlasmaOrdered By: Amaury Galindo on 09-20-2023 CO2 [Moles/Vol] 23.3 mmol/L Normal 21.0-31.0 [facility] Comment on above: Performed By: #### A ELAINE AnnG #### [address] Chloride [Moles/volume] in S phoebe or PlasmaOrdered By: Amaury Galindo on 09-20-2023 Chloride [Moles/Vol] 106 mmol/L Normal 98-107 [facility] Comment on above: Performed By: #### A E[facility]INE [facility] #### [address] Color of Urine by AutoOrdere d By: Amaury Galindo on 09-20-2023 Color (U) Light-orange Critically abnormal Yellow [facility] Comment on above: Order Comment: Name Collection Type:: Clean-Voided Midstream Performed By: #### B MP, LIPASE, CBC, PT, PTT, HEPATIC #### [address] Complete Blood Count Auto Di ffon 09-20-2023 Mean Corpuscular HGB Conc 33.7 g/dL Normal 32.0-35.0 [facility] Comment on above: Performed By: #### A ELAINE CG #### [address] Monocytes/100 WBC (Bld) 17.54 % Normal 0.00-20.00 [facility] Comment on above: Performed By: #### A DDONUAPLUS [facility] #### [facility] [address] NRBC% 0.1 /100{WBC} Normal 0-0.5 [facility] Comment on above: Performed By: #### A DDONUAPLUS, [facility] #### [address] Creatinine [Mass/volume] in Serum or PlasmaOrdered By: Amaury Galindo on 09-20-2023 Creatinine [Mass/Vol] 0.88 mg/dL Normal 0.60-1.20 [facility] Comment on above: Performed By: #### A DDONUAPLUS [facility] #### [address] Dipstick and Microscopicon 0 09-20-2023 Bacteria,Urine None Seen Normal None Seen [facility] Comment on above: Order Comment: Name Collection Type:: Clean-Voided Midstream Performed By: #### B MP, LIPASE, CBC, PT, PTT, HEPATIC #### [address] Bilirubin,Urine Negative Normal Negative [facility] Comment on above: Order Comment: Name Collection Type:: Clean-Voided Midstream Performed By: #### B MP, LIPASE, CBC, PT, PTT, HEPATIC #### [address] Glucose Ql (U) Normal Normal Normal [facility] Comment on above: Order Comment: Name Collection Type:: Clean-Voided Midstream Performed By: #### B MP, LIPASE, CBC, PT, PTT, HEPATIC #### [address] Mucus,Urine 2+ Critically abnormal [facility] Comment on above: Order Comment: Name Collection Type:: Clean-Voided Midstream Performed By: #### B MP, LIPASE, CBC, PT, PTT, HEPATIC #### [facility] [address] [place] [address] [place] Nitrite,Urine Negative Normal Negative [facility] Comment on above: Order Comment: Name Collection Type:: Clean-Voided Midstream Performed By: #### B MP, LIPASE, CBC, PT, PTT, HEPATIC #### [address] Occult Blood,Urine Trace High Negative [facility] Comment on above: Order Comment: Name Collection Type:: Clean-Voided Midstream Performed By: #### B MP, LIPASE, CBC, PT, PTT, HEPATIC #### [place] [address] [place] RBC,Urine 5-9 High 0-4 [facility] Comment on above: Order Comment: Name Collection Type:: Clean-Voided Midstream Performed By: #### B MP, LIPASE, CBC, PT, PTT, HEPATIC #### [address] Specificy [place],Urine 1.033 High 1.001-1.03 0 [facility] Comment on above: Order Comment: Name Collection Type:: Clean-Voided Midstream Performed By: #### B MP, LIPASE, CBC, PT, PTT, HEPATIC #### [address] Squamous Epithelial Cell,Urine 3-4 High 0-2 [facility] Comment on above: Order Comment: Name Collection Type:: Clean-Voided Midstream Performed By: #### B MP, LIPASE, CBC, PT, PTT, HEPATIC #### [place] [address] [place] Urobilinogen,Urine Normal Normal Normal [facility] Comment on above: Order Comment: Name Collection Type:: Clean-Voided Midstream Performed By: #### B MP, LIPASE, CBC, PT, PTT, HEPATIC #### [place] [address] [place] WBC,Urine 5-9 High 0-4 [facility] Comment on above: Order Comment: Name Collection Type:: Clean-Voided Midstream Performed By: #### B MP, LIPASE, CBC, PT, PTT, HEPATIC #### [facility] [address] Epithelial cells.squamous [# /area] in Urine sediment by Automated countOrdered By: Amaury Galindo on 09-20-2023 Epithelial cells.squamous Auto (Urine sed) [#/Area] 3-4 [HPF] High 0-2 [facility] Erythrocyte distribution wid th [Ratio] by Automated countOrdered By: Amaury Galindo on 09-20-2023 Erythrocyte distribution width (RBC) [Ratio] 12.7 % Normal 11.9-15.3 [facility] Comment on above: Performed By: #### A ELAINE, [facility] #### [address] Erythrocytes [#/area] in Uri ne sediment by Automated countOrdered By: Amaury Galindo on 09-20-2023 RBC Auto (Urine sed) [#/Area] 5-9 [HPF] High 0-4 [facility] Erythrocytes [#/volume] in B lood by Automated countOrdered By: Amaury Galindo on 09-20-2023 RBC (Bld) [#/Vol] 4.28 10*6/uL Normal 3.60-5.00 [facility] Comment on above: Performed By: #### A DDONUALEEANN [facility] #### [address] Glucose [Mass/volume] in Ser um or PlasmaOrdered By: Amaury Galindo on 09-20-2023 Glucose [Mass/Vol] 115 mg/dL High 70-[address] [facility] Comment on above: ADA recommended refe rence rangeRandom Glucose Reference Range is dependent on time and content of last meal. Glucose of more than 200 mg/dL in a nonstressed, ambulatory subject supports the diagnosis of Diabetes Mellitus. Result Comment: [place] om Glucose Reference Range is dependent on time and content of last meal. Glucose of more than 200 mg/dL in a nonstressed, ambulatory subject supports the diagnosis of Diabetes Mellitus. ADA recommended reference range Performed By: #### A ADANUALAKHWINDER BRADSHAWCG #### [address] Glucose [Mass/volume] in Uri ne by Test stripOrdered By: Amaury Galindo on 09-20-2023 Glucose Test strip (U) [Mass/Vol] Normal mg/dL Normal [facility] HCG ( test) IA.rapi d Ql (U)Ordered By: Amaury Galindo on 09-20-2023 HCG ( test) Ql (U) Negative [facility] HCG,Urineon 09-20-2023 Beta HCG ( test) Ql (U) Negative Normal [facility] Comment on above: Order Comment: Name Collection Type:: Clean-Voided Midstream Result Comment: PERF ORMED BY: [place] [address] PATHOLOGIST [employer] JL PERKINS M.D. Performed By: #### B MP, LIPASE, CBC, PT, PTT, HEPATIC #### [address] Hematocrit [Volume Fraction] of Blood by Automated countOrdered By: Amaury Galindo on 09-20-2023 Hematocrit (Bld) [Volume fraction] 37.9 % Normal 34.0-46.4 [facility] Comment on above: Performed By: #### A ELAINE [facility] #### [address] Hemoglobin Test strip Ql (U) Ordered By: Amaury Galindo on 09-20-2023 Hemoglobin Ql (U) Trace High Negative [facility] Hemoglobin [Mass/volume] in BloodOrdered By: Amaury Galindo on 09-20-2023 Hemoglobin (Bld) [Mass/Vol] 12.8 g/dL Normal 11.8-15.4 [facility] Comment on above: Performed By: #### A COLLEENONUALEEANN U[facility]CG #### [address] Hepatic Panelon 09-20-2023 Albumin [Mass/Vol] 4.1 g/dL Normal 3.5-5.7 [facility] Comment on above: Performed By: #### A DDONUAPLUS, CG #### [address] Bilirubin,Indirect 0.3 mg/dL Normal [facility] Comment on above: Performed By: #### A DDONUAPLUS, CG #### [address] Bilirubin.indirect [Mass/Vol] 0.00 mg/dL Low 0.03-0.18 [facility] Comment on above: Result Comment: If t he DBIL is less than 0.1, IBIL is not able to be calculated. Performed By: #### A DDONUAPLUS CG #### [address] Ketones [Presence] in Urine by Test stripOrdered By: Amaury Galindo on 09-20-2023 Ketones Ql (U) Negative Normal Negative [facility] Comment on above: Order Comment: Name Collection Type:: Clean-Voided Midstream Performed By: #### B MP, LIPASE, CBC, PT, PTT, HEPATIC #### [address] Leukocyte esterase [Presence ] in Urine by Test stripOrdered By: Amaury Galindo on 09-20-2023 Leukocyte esterase Test strip Ql (U) 3+ High Negative [facility] Comment on above: Order Comment: Name Collection Type:: Clean-Voided Midstream Performed By: #### B MP, LIPASE, CBC, PT, PTT, HEPATIC #### [place] [address] [place] Leukocytes [#/area] in Urine sediment by Automated countOrdered By: Amaury Galindo on 09-20-2023 WBC Auto (Urine sed) [#/Area] 5-9 [HPF] High 0-4 [facility] Leukocytes [#/volume] correc rachelle for nucleated erythrocytes in Blood by Automated counOrdered By: Amaury Galindo on 07-25-2024 WBC corrected for nucl RBC Auto (Bld) [#/Vol] 12.4 10*3/uL High 3.8-11.6 [facility] Leukocytes [#/volume] in Blo od by Automated countOrdered By: Amaury Galindo on 09-20-2023 WBC (Bld) [#/Vol] 12.4 10*3/uL High 3.8-11.6 [facility] Comment on above: Performed By: #### A ELAINE [facility] #### [address] Lipase [Enzymatic activity/v olume] in Serum or PlasmaOrdered By: Amaury Galindo on 09-20-2023 Lipase [Catalytic activity/Vol] 36.0 U/L Normal 11.0-82.0 [facility] Comment on above: Result Comment: PERF ORMED BY: [address] [place] [address] PATHOLOGIST [employer] JL PERKINS M.D. Performed By: #### A ELAINE [facility] #### [place] [address] [place] Lymphocytes [#/volume] in Bl ood by Automated countOrdered By: Amaury Galindo on 09-20-2023 Lymphocytes (Bld) [#/Vol] 5.0 10*3/uL High 1.00-4.8 [facility] Comment on above: Performed By: #### A ELAINE [facility] #### [place] [address] [place] Lymphocytes/100 leukocytes i n Blood by Automated countOrdered By: Amaury Galindo on 09-20-2023 Lymphocytes/100 WBC (Bld) 40.5 % Normal . [facility] Comment on above: Performed By: #### A ELAINE [facility] #### [place] [address] [place] MCH [Entitic mass] by Automa rachelle countOrdered By: Amaury Galindo on 09-20-2023 MCH (RBC) [Entitic mass] 29.8 pg Normal 24.7-34.3 [facility] Comment on above: Performed By: #### A ELAINE [facility] #### [facility] [address] MCHC Auto (RBC) [Mass/Vol]Or dered By: Amaury Galindo on 09-20-2023 MCHC (RBC) [Mass/Vol] 33.7 g/dL 32.0-35.0 [facility] MCV [Entitic volume] by Auto mated countOrdered By: Amaury Galindo on 09-20-2023 MCV (RBC) [Entitic vol] 88.6 fL Normal 80-100 [facility] Comment on above: Performed By: #### A ELAINE [facility] #### [address] Monocyte distribution width [Entitic volume] in Blood by AutomatedOrdered By: Amaury Galindo on 09-20-2023 Monocyte distribution width Auto (Bld) [Entitic vol] 17.54 % 0.00-20.00 [facility] Mucus [Presence] in Urine by AutomatedOrdered By: Amaury Galindo on 09-20-2023 Mucus Auto Ql (U) 2+ [LPF] Abnormal [facility] Neutrophils [#/volume] in Bl ood by Automated countOrdered By: Amaury Galindo on 09-20-2023 Neutrophils (Bld) [#/Vol] 6.5 10*3/uL Normal 1.8-7.7 [facility] Comment on above: Performed By: #### A ELAINE [facility] #### [address] Nitrite Test strip Ql (U)Ord ered By: Amaury Galindo on 09-20-2023 Nitrite Ql (U) Negative Negative [facility] No Panel InformationOrdered By: Amaury Galindo on 09-20-2023 Estimated GFR (CKD-EPI) > 60.0 mL/Min [facility] Creatinine Clearance (Chem 92.60 [facility] Nucleated erythrocytes [Pres ence] in Blood by Automated countOrdered By: Amaury Galindo on 09-20-2023 Nucleated RBC Auto Ql (Bld) 0.1 /100{WBC} 0-0.5 [facility] Platelet mean volume [Entiti c volume] in Blood by Automated countOrdered By: Amaury Galindo on 09-20-2023 Platelet mean volume (Bld) [Entitic vol] 8.0 fL Normal 6.3-10.7 [facility] Comment on above: Performed By: #### A ELAINE [facility] #### [place] [address] [place] Platelets [#/volume] in Bloo d by Automated countOrdered By: Amaury Galindo on 09-20-2023 Platelets (Bld) [#/Vol] 241 10*3/uL Normal 150-450 [facility] Comment on above: Performed By: #### A ELAINE [facility] #### [place] [address] [place] Potassium [Moles/volume] in Serum or PlasmaOrdered By: Amaury Galindo on 09-20-2023 Potassium [Moles/Vol] 3.9 mmol/L Normal 3.5-5.1 [facility] Comment on above: Performed By: #### A ELAINE [facility] #### [place] [address] [place] Protein [Mass/volume] in Ser um or PlasmaOrdered By: Amaury Galindo on 09-20-2023 Protein [Mass/Vol] 7.6 g/dL Normal 6.4-8.[address] [facility] Comment on above: Performed By: #### A ELAINE [facility] #### [place] [id number] [place] Protein [Mass/volume] in Uri ne by Test stripOrdered By: Amaury Galindo on 09-20-2023 Protein (U) [Mass/Vol] 30 mg/dL High Negative [facility] Comment on above: Order Comment: Name Collection Type:: Clean-Voided Midstream Performed By: #### B MP, LIPASE, CBC, PT, PTT, HEPATIC #### [address] Serum globulin measurement b y calculation (mass/volume)Ordered By: Amaury Galindo on 09-20-2023 Globulin (S) [Mass/Vol] 3.5 g/dL [facility] Comment on above: Performed By: #### A ELAINE [facility] #### [address] Serum or plasma albumin/glob ulin mass ratioOrdered By: Amauyr Galindo on 09-20-2023 Albumin/Globulin [Mass ratio] 1.2 {ratio} [facility] Comment on above: Performed By: #### A ELAINE [facility] #### [address] Serum or plasma anion gap de terminationOrdered By: Amaury Galindo on 09-20-2023 Anion gap [Moles/Vol] 12.6 mmol/L Normal 6.0-15.0 [facility] Comment on above: Performed By: #### A [facility] [place] [facility] #### [address] Serum or plasma non-glucuron idated bilirubin measurement (mass/volume)Ordered By: Amaury Galindo on 09-20-2023 Bilirubin.indirect [Mass/Vol] 0.3 mg/dL [facility] Sodium [Moles/volume] in Ser um or PlasmaOrdered By: Amaury Galindo on 09-20-2023 Sodium [Moles/Vol] 138 mmol/L Normal 136-[address] [facility] Comment on above: Performed By: #### A [facility] [place] #### [address] Specific gravity Test strip (U) [Rel density]Ordered By: Amaury Galindo on 09-20-2023 Specific gravity (U) [Rel density] 1.033 High 1.001-1.03 0 [facility] Urea nitrogen [Mass/volume] in Serum or PlasmaOrdered By: Amaury Galindo on 09-20-2023 Urea nitrogen [Mass/Vol] 20 mg/dL Normal 09-19 [facility] Comment on above: Performed By: #### A DDONUAPLUS, UHCG #### [facility] [address] [place] [address] Urine Cultureon 09-20-2023 Bacteria identified Cx Nom (U) >100,000 colonies/ml mixed bacterial skin contaminants 2 Days PERFORMED BY: [place] [address] PATHOLOGIST [employer] JL PERKINS M.D. Normal [facility] Comment on above: Performed By: #### B MP, LIPASE, CBC, PT, PTT, HEPATIC #### [address] Urine appearanceOrdered By: Amaury Galindo on 09-20-2023 Appearance (U) Turbid Critically abnormal Clear [facility] Comment on above: Order Comment: Name Collection Type:: Clean-Voided Midstream Performed By: #### B MP, LIPASE, CBC, PT, PTT, HEPATIC #### [facility] [address] [place] [address] Urine culture routineOrdered By: Amaury Galindo on 09-20-2023 Bacteria identified Cx Nom (U) 2 Days [facility] Urobilinogen Test strip (U) [Mass/Vol]Ordered By: Amaury Galindo on 09-20-2023 Urobilinogen (U) [Mass/Vol] Normal mg/dL Normal [facility] pH of Urine by Test stripOrd ered By: Amaury Galindo on 09-20-2023 pH (U) 7.0 [pH] Normal 5.0-9.0 [facility] Comment on above: Order Comment: Name Collection Type:: Clean-Voided Midstream Performed By: #### B MP, LIPASE, CBC, PT, PTT, HEPATIC #### [facility] [address] [place] [address] XR Abdomen 1 Viewon 09-04-19 24 XR Abdomen 1 View Exam Date/Time: 09/03/2023 21:17 EDT Reason for Exam: Kidney stone Report IMPRESSION: NONOBSTRUCTIVE BOWEL GAS PATTERN. EXAMINATION: XR Abdomen 1 View HISTORY: Left-sided flank pain. Nausea and vomiting. TECHNIQUE: Supine frontal view of the abdomen and pelvis COMPARISON: CT abdomen pelvis 08/27/2023 FINDINGS: Tiny nonobstructing calculus of the left kidney seen on recent CT is not identified by radiography. Nonobstructive bowel gas pattern. No evidence of free air. No acute osseous abnormality. Ordering Provider: Jorge Oliva FINAL REPORT Dictated: 09/04/2023 9:29 am Harvey Francis DO Signed (Electronic Signature): 09/04/2023 9:29 am Signed by: Harvey Francis DO Transcribed by: FATIMAH Technologist: ADRIA Technical Comments Radiation Dose: Ka,r in mGy = n/a DAP = n/a Normal [facility] BMPon 09-03-2023 Anion gap [Moles/Vol] 12 mmol/L Normal 6-16 [facility] Comment on above: Performed By: #### 2 [id number] #### [facility] [address] [place] [address] Calcium [Mass/Vol] 8.9 mg/dL Normal 8.9-11.1 [facility] Comment on above: Performed By: #### 2 [id number] #### [facility] [address] [place] [address] Chloride [Moles/Vol] 105 mmol/L Normal 101-111 [facility] Comment on above: Performed By: #### 2 [id number] #### [facility] [address] [place] [address] CO2 [Moles/Vol] 25 mmol/L Normal 21-31 [facility] Comment on above: Performed By: #### 2 [id number] #### [facility] [address] [facility] [place] [address] Creatinine [Mass/Vol] 0.9 mg/dL Normal 0.5-1.3 [facility] Comment on above: Performed By: #### 2 [id number] #### [facility] [address] [place] [address] Glucose [Mass/Vol] 89 mg/dL Normal 55-199 [facility] Comment on above: Performed By: #### 2 [id number] #### [facility] [address] [place] [address] Potassium [Moles/Vol] 3.9 mmol/L Normal 3.5-5.3 [facility] Comment on above: Performed By: #### 2 [id number] #### [facility] [address] [place] [address] Sodium [Moles/Vol] 138 mmol/L Normal 135-145 [facility] Comment on above: Performed By: #### 2 [id number] #### [facility] [address] [place] [address] Urea nitrogen [Mass/Vol] 19 mg/dL Normal 5-21 [facility] Comment on above: Performed By: #### 2 [id number] #### [facility] [address] [place] [address] Urea nitrogen/Creatinine [Mass ratio] 21 No Units High 10-20 [facility] Comment on above: Performed By: #### 2 [id number] #### [facility] [address] [place] [address] BhCG Quanton 09-03-2023 HCG.beta subunit Qn m[IU]/mL Normal 1-3 [facility] Comment on above: Result Comment: 'F N ON < 1 - 3' ' 0.2 - 1 WEEK = 5 TO 50' ' 1 - 2 WEEKS = 50 - 500' ' 2 - 3 WEEKS = 100 - 5000' ' 3 - 4 WEEKS = 500 - 23681' ' 4 - 5 WEEKS = 1000 - 97846' ' 5 - 6 WEEKS = 32266 - 249006' ' 6 - 8 WEEKS = 42068 - 876282' ' 8 - 12 WEEKS = 58036 - 348719' Performed By: #### 2 [id number] #### [facility] [address] [place] [address] CBC w/ Auto Diffon 4 Basophils/100 WBC (Bld) 0.8 % Normal 0.0-2.0 [facility] Comment on above: Performed By: #### 2 [id number] #### [facility] [address] [place] [address] Basophils/Leukocytes Auto (Bld) [Pure # fraction] 0.1 E9/L Normal 0.0-0.2 [facility] Comment on above: Performed By: #### 2 [id number] #### [facility] [address] [place] [address] Eosinophils (Bld) [#/Vol] 0.2 E9/L Normal 0.0-0.5 [facility] Comment on above: Performed By: #### 2 [id number] #### [facility] [address] [place] [address] Eosinophils/100 WBC (Bld) 2.0 % Normal 0.0-8.0 [facility] Comment on above: Performed By: #### 2 191352 #### [facility] [address] [place] [address] Erythrocyte distribution width (RBC) [Ratio] 13.1 % Normal 10.9-14.2 [facility] Comment on above: Performed By: #### 2 [id number] #### [facility] [address] [place] [address] Hematocrit (Bld) [Volume fraction] 37.6 % Normal 34.0-46.0 [facility] Comment on above: Performed By: #### 2 185306 #### [facility] [address] [place] [address] Hemoglobin (Bld) [Mass/Vol] 12.5 g/dL Normal 12.0-16.0 [facility] Comment on above: Performed By: #### 2 [id number] #### [facility] [address] [place] [address] Lymphocytes (Bld) [#/Vol] 4.4 E9/L High 1.0-4.0 [facility] Comment on above: Performed By: #### 2 [id number] #### [facility] [address] [place] [address] Lymphocytes/100 WBC (Bld) 37.3 % Normal 14.0-50.0 [facility] Comment on above: Performed By: #### 2 [id number] #### [facility] [address] [place] [address] MCH (RBC) [Entitic mass] 29.7 pg Normal 27.0-34.0 [facility] Comment on above: Performed By: #### 2 [id number] #### [facility] [address] [place] [address] MCHC (RBC) [Mass/Vol] 33.2 g/dL Normal 31.4-36.0 [facility] Comment on above: Performed By: #### 2 029357 #### [facility] [address] [place] [address] MCV (RBC) [Entitic vol] 89.4 fL Normal 80.0-100.0 [facility] Comment on above: Performed By: #### 2 [id number] #### [facility] [address] [place] [address] Monocytes (Bld) [#/Vol] 0.7 E9/L Normal 0.2-1.0 [facility] Comment on above: Performed By: #### 2 195089 #### [facility] [address] [place] [address] Neutrophils (Bld) [#/Vol] 6.4 E9/L Normal 2.0-7.5 [facility] Comment on above: Performed By: #### 2 985138 #### [facility] [address] [place] [address] Neutrophils/100 WBC (Bld) 53.9 % Normal 36.0-75.0 [facility] Comment on above: Performed By: #### 2 [id number] #### [facility] [address] [place] [address] Platelet mean volume (Bld) [Entitic vol] 7.6 fL Normal 6.4-10.8 [facility] Comment on above: Performed By: #### 2 083144 #### [facility] [address] [place] [address] Platelets (Bld) [#/Vol] 233.0 E9/L Normal 150.0-500. 0 [facility] Comment on above: Performed By: #### 2 [id number] #### [facility] [address] [place] [address] RBC (Bld) [#/Vol] 4.2 E12/L Low 4.3-5.9 [facility] Comment on above: Performed By: #### 2 [id number] #### [facility] [address] [place] [address] WBC corrected for nucl RBC Auto (Bld) [#/Vol] 11.9 E9/L High 4.0-11.0 [facility] Comment on above: Performed By: #### 2 [id number] #### [facility] [address] [place] [address] CHEMISTRYOrdered By: SYSTEM SYSTEM on 09-03-2023 Anion gap [Moles/Vol] 12 mmol/L Normal 6 - 16 mEq/L [facility] Calcium [Mass/Vol] 8.9 mg/dL Normal 8.9 - 11. 1 mg/dL [facility] Chloride [Moles/Vol] 105 mmol/L Normal 101 - 1 11 mmol/L [facility] CO2 [Moles/Vol] 25 mmol/L Normal 21 - 31 mmol/L [facility] Creatinine [Mass/Vol] 0.9 mg/dL Normal 0.5 - 1.3 mg/dL [facility] eGFR 85 mL/min/1.73 m2 Normal >=59mL/min /1.73 m2 [facility] Glucose [Mass/Vol] 89 mg/dL Normal 55 - 199 mg/dL [facility] HCG.beta subunit Qn mIU/mL Normal 1 - 3 mIU/mL [facility] Comment on above: Result Comment: 'F N ON < 1 - 3' ' 0.2 - 1 WEEK = 5 TO 50' ' 1 - 2 WEEKS = 50 - 500' ' 2 - 3 WEEKS = 100 - 5000' ' 3 - 4 WEEKS = 500 - 77619' ' 4 - 5 WEEKS = 1000 - 20755' ' 5 - 6 WEEKS = 95948 - 202284' ' 6 - 8 WEEKS = 33557 - 086353' ' 8 - 12 WEEKS = 78143 - 671235' Potassium [Moles/Vol] 3.9 mmol/L Normal 3.5 - 5.3 mmol/L [facility] Sodium [Moles/Vol] 138 mmol/L Normal 135 - 145 mmol/L [facility] Urea nitrogen [Mass/Vol] 19 mg/dL Normal 5 - 21 mg/dL [facility] Urea nitrogen/Creatinine [Mass ratio] 21 mg/mg High 10 - 20 [facility] ED Clinical Summaryon 2023 ED Clinical Summary ED Clinical Summary [place] [address] ED Clinical Summary Person Information Name: TRACIE SAMUELS [facility] Age: 33 Years : 1990 Sex: Female Language: Swazi PCP: KATLIN FERNANDEZ DO Marital Status: Single Visit Id: Visit Reason: Urinary frequency; Vomiting; Nausea; Abdominal pain; Flank pain; POS. KIDNEY STONE Speciality: Acuity: 3 Enc Type: Emergency Med Service: Emergency Arrival: 09/03/2023 20:39:54 Discharge: 09/03/2023 22:12:30 LOS: 000 01:33 Checkin: 09/03/2023 20:39:54 Checkout: 09/03/2023 22:12:30 Dispo Type: Home (Routine DC) EVENTS: Event Name Event Status Request Date/Time Start Date/Time Complete Date/Time Arrive Complete 09/03/2023 20:39:54 09/03/2023 20:39:54 09/03/2023 20:39:54 Document Home Meds Request 09/03/2023 20:39:54 Triage Complete 09/03/2023 20:39:54 09/03/2023 20:48:04 09/03/2023 20:48:04 Bed Assign Complete 09/03/2023 20:42:44 09/03/2023 20:42:44 09/03/2023 20:42:44 Dr Exam Complete 09/03/2023 20:42:44 09/03/2023 20:43:41 09/03/2023 20:43:41 RN Exam Complete 09/03/2023 20:42:44 09/03/2023 21:09:34 09/03/2023 21:09:34 Registration Complete 09/03/2023 20:43:41 09/03/2023 20:44:34 09/03/2023 20:44:34 Reg Complete Request 09/03/2023 20:44:34 Reg Bed Request Complete 09/03/2023 20:44:34 09/03/2023 20:44:34 09/03/2023 20:44:34 Pending Labs Complete 09/03/2023 20:51:37 09/03/2023 21:45:56 Lab Complete 09/03/2023 20:51:37 09/03/2023 21:45:56 Pending Labs Complete 09/03/2023 20:51:56 09/03/2023 21:40:11 Lab Complete 09/03/2023 20:51:56 09/03/2023 21:40:11 Meds Admin Request 09/03/2023 20:56:08 X-Ray Complete 09/03/2023 21:00:48 09/03/2023 21:07:15 09/03/2023 21:17:57 Pending Labs Complete 09/03/2023 21:03:40 09/03/2023 21:03:40 09/03/2023 21:45:56 Lab Complete 09/03/2023 21:03:40 09/03/2023 21:03:40 09/03/2023 21:45:56 Wet Read Request 09/03/2023 21:17:57 Pending Labs Complete 09/03/2023 21:35:07 09/03/2023 21:35:07 09/03/2023 21:35:07 Meds Admin Complete 09/03/2023 21:54:05 09/03/2023 22:02:29 Discharge Complete 09/03/2023 21:57:34 09/03/2023 22:12:36 09/03/2023 22:12:36 Transfer Complete 09/03/2023 22:12:36 09/03/2023 22:12:36 09/03/2023 22:12:36 ADDRESS: [address] [place] [address] [address] [facility] [id number] PHYS DOC NOTES: MEDICAL INFORMATION: Prescriptions Given: New Medications Printed Prescriptions tamsulosin (Flomax 0.4 mg Cap) 1 Capsules By Mouth every day. Refills: 0. Medications to Continue Taking That Have Changed Printed Prescriptions START: acetaminophen-oxycodone (Percocet 5 mg-325 mg oral tablet) 1 Tablets By Mouth every 6 hours for 2 Days. Refills: 0. START: ondansetron (Zofran ODT 4 mg Tab-Dis) 1 Tablets By Mouth every 8 hours. Refills: 0. START: polyethylene glycol 3350 (Miralax 3350 17 gram packet) 17 Gram By Mouth every day. Refills: 0. Other Medications START: acetaminophen-oxycodone (Percocet 5 mg-325 mg oral tablet) 1 Tablets By Mouth every 6 hours as needed as needed for pain. Refills: 0. START: acetaminophen-oxycodone (Percocet 5 mg-325 mg oral tablet) 1 Tablets By Mouth every 6 hours. Refills: 0. START: ondansetron (Zofran ODT 4 mg Tab) 1 Tablets By Mouth every 6 hours as needed Nausea/Vomiting. Refills: 0. START: ondansetron (Zofran ODT 4 mg Tab) 1 Tablets By Mouth every 6 hours as needed Nausea/Vomiting. Refills: 0. START: ondansetron (Zofran ODT 4 mg Tab-Dis) 1 Tablets By Mouth 3 times a day. Refills: 0. START: ondansetron (Zofran ODT 4 mg Tab-Dis) 1 Tablets By Mouth every 8 hours as needed Nausea/Vomiting. Refills: 0. START: ondansetron (Zofran ODT 4 mg Tab-Dis) 1 Tablets By Mouth every 8 hours as needed Nausea/Vomiting. Refills: 0. START: polyethylene glycol 3350 (Miralax 3350 17 gram packet) 17 Gram By Mouth every day. Refills: 0. Medications to Continue with No Changes Other Medications albuterol (albuterol 0.083% Inh Claire 3 mL UD) 3 Milliliter Inhalation every 6 hours. Refills: 0. albuterol (albuterol 0.083% Inh Claire 3 mL) 3 Milliliter Nebulized inhalation (aerosol) every 6 hours as needed Shortness of breath or wheezing. albuterol (ProAir HFA 90 mcg/inh inhalation aerosol) 2 Puffs Inhalation 4 times a day as needed Shortness of breath or wheezing. dicyclomine (Bentyl 10 mg Cap) 2 Capsules By Mouth 4 times a day. Refills: 0. dicyclomine (Bentyl 10 mg Cap) 1 Capsules By Mouth 4 times a day for 7 Days. Refills: 0. famotidine (Pepcid 20 mg Tab) 1 Tablets By Mouth 2 times a day. Refills: 0. indomethacin lidocaine topical (lidocaine Top 5% film Patch) 1 Patches Topical every day. apply 12 hours on and 12 hours off daily. Refills: 0. meloxicam (meloxicam 15 mg oral tablet) By Mouth every day. meloxicam (meloxicam 15 mg oral tablet) 1 Tablets By Mouth every day. Refills: 0. metformin (metformin 500 mg oral tablet) 1 Tablets By Mouth As Directed. mupirocin topical (mupirocin Top 2% Oint) 1 Application Topical 3 times a day. Refills: 0. naproxen (Naprosyn 500 mg Tab) (more content not included)... Normal [facility] ED Note-Nursingon 09-03-2023 ED Note-Nursing ED Note-Nursing Physician at bedside to review results with pt. took x5 to arouse pt awake. Pt says pain is 8/10. Normal [facility] ED Note-Physicianon 09-03-19 ED Note-Physician ED Note-Physician Basic Information Time Seen: Jorge Oliva DO 09/03/2023 20:43 Chief Complaint Pt arrives to ed with c/o left sided flank pain,n/v, and urinary pain/frequency that started approx a week ago. Pt was seen here and dx with kidney stone and pain never resided. History of Present Illness Patient is a 33-year-old female with past medical history of bipolar disorder, diabetes, kidney stone, seizures presenting to the ED for evaluation of left flank pain nausea and vomiting. Patient states symptoms started approximately week ago was seen here was diagnosed with a kidney stone. Patient states the pain has been unresolved since that time. Patient denies any fevers, chills, dizziness or lightheadedness. Does note nausea and vomiting and inability to keep anything down. Has not scheduled an appointment with urology. Review of Systems A 10 point review of systems is negative except as noted above. Medical and Surgical History: Reviewed and noted Social history: Lives at home Tobacco: Denies Physical Exam Vitals & Measurements T: 36.6 ?C(Oral) HR: 89(Peripheral) RR: 20 BP: 134/89 SpO2: 98% HT: 149.86 cm WT: 97.7 kg BMI: 43.5 General: Well developed, non toxic appearing, no acute distress HEENT: Head atraumatic, Mucosa moist, hearing grossly normal Neck: No JVD, tracheal deviation Cardiac: Regular rate, rhythm, no murmurs, or gallops, 2+ radial pulses Respiratory: Lungs clear to auscultation B/L, normal respiratory effort Abdomen: Soft, left CVA tenderness on examination no rebound or guarding, no peritoneal signs Extremities: No edema noted in the LE B/L, no tenderness to palpation Neurologic: Alert and oriented, speech clear Skin: No rashes or lesions Psych: Appropriate mood and behavior Medical Decision Making MEDICAL DECISION MAKING Number and Complexity of Problems Differential Diagnosis: [] [facility] Data External documents reviewed: [] My EKG interpretation: [] My CT interpretation: [] My X-ray interpretation: [] My Ultrasound interpretation: [] Decision rules/scores evaluated: [] Discussed with: [] Treatment and Disposition ED Course: Patient is a 33-year-old female presenting to the ED for evaluation of left flank pain. Patient nontoxic and on arrival, no acute distress. Patient complaining of kidney stone pain. Was seen here on the first had a CAT scan showing a 2 mm stone in the kidney. Laboratory evaluation is obtained, abdominal x-ray is ordered. Patient's laboratory evaluation shows slight leukocytosis of 11.9 otherwise laboratory evaluations unremarkable. X-ray shows moderate stool burden no obvious kidney stone. On reevaluation patient is sleeping requires multiple attempts to wake her up however when she awakened she states that her pain is severe. Explained to the patient she was just sleeping. Patient is given a to go pack of pain medication. She is also started on Flomax, Zofran and MiraLAX. She is to follow-up with her primary care doctor for further evaluation management. She is to return to the ED for any new or worsening symptoms. Shared decision making: [] Code status: [] Assessment/Plan Constipation (K59.00: Constipation, unspecified) Flank pain (R10.9: Unspecified abdominal pain) Renal colic (N23: Unspecified renal colic) Orders: acetaminophen-oxycodone, 1 EA, Tab, Oral, Once, Stop date 09/03/23 21:53:00 EDT, STAT, Start date 09/03/23 21:53:00 EDT acetaminophen-oxycodone, 1 tab(s), Oral, q6hr for 2 day(s), 7 tab(s), Refill(s) 0 ketorolac, 30 mg = 1 mL, Injection, IV Push, Once, Stop date 09/03/23 20:55:00 EDT, STAT, Start date 09/03/23 20:55:00 EDT, 09/03/23 20:55:00 EDT ondansetron, 4 mg = 2 mL, Injection, IV Push, Once, Stop date 09/03/23 20:55:00 EDT, STAT, Start date 09/03/23 20:55:00 EDT, 09/03/23 20:55:00 EDT ondansetron, 4 mg = 1 tab(s), Oral, q8hr, # 12 tab(s), Refills(s) 0 ondansetron, 4 mg = 1 tab(s), Tab-Dis, Oral, Once, Stop date 09/03/23 21:53:00 EDT, STAT, Start date 09/03/23 21:53:00 EDT, 09/03/23 21:53:00 EDT polyethylene glycol 3350, 17 gm, Oral, Daily, # 24 EA, Refills(s) 0 Sodium Chloride 0.9% intravenous solution 1,000 mL, 1,000 mL, IV, 983.61 mL/hr, for 30 day(s), Stop date 10/03/23 20:54:00 EDT, STAT, Start date 09/03/23 20:55:00 EDT, 61 minute(s), Total volume (mL): 1,000, 97.7 kg, 2.02, m2 tamsulosin, 0.4 mg = 1 cap(s), Oral, Daily, # 10 cap(s), Refills(s) 0 Basic Metabolic Panel Beta hCG Quantitative CBC w/ Auto Diff eGFR Extra Blue Tube Extra SST Tube UA with Cult Rflx XR Abdomen 1 View Medications Administered Given Sodium Chloride 0.9% IV Claire 1000 mL 1,000 mL, 1000 mL, IV ketorolac 30 mg/mL Inj 1 mL, 30 mg, IV Push Zofran 4 mg/2 mL Injection, 4 mg, IV Push Disposition Plan Discharge Prescription List Prescriptions Flomax 0.4 mg Cap, 0.4 mg= 1 cap(s), Oral, Daily Miralax 3350 17 gram packet, 17 gm, Oral, Daily Percocet 5 mg-325 mg oral tablet, 1 tab(s), Oral, q6hr (more content not included)... Normal [facility] Comment on above: Result Comment: Elec tronically Signed By: Jorge Oliva DO\.br\Date and Time Signed: 09/03/23 22:28 EDT ED Patient Summaryon 024 ED Patient Summary ED Patient Summary [place] [id number] Patient Discharge Instructions Person Information Name: TRACIE SAMUELS Age: 33 Years Arrival Date: 09/03/2023 20:39:54 Discharge Diagnosis: Constipation; Flank pain; Renal colic Primary Care Physician: KATLIN FERNANDEZ DO Provider Information Primary Provider: Jorge Oliva DO Advanced Meter Reader Chief:None The exam and treatment you received in the Emergency Department were for an urgent problem and are not intended as complete care. It is important that you follow up with a doctor, nurse practitioner, or physician?s drug safety assistant for ongoing care. If your symptoms become worse or you do not improve as expected and you are unable to reach your usual health care provider, you should return to the Emergency Department. We are available 24 hours a day. TRACIE SAMUELS has been given the following list of patient education materials, prescriptions and follow-up instructions: Follow-up Instructions: With: Address: When: Yanick Bolivar [address] [place] [address] In 3 days 09/06/2023 With: Address: When: KATLIN FERNANDEZ [address] [place], [place] [id number] [facility] In 3 days 09/06/2023 Comments: Take the Flomax once daily until you have completed the course. Take the MiraLAX once daily until you are having regular bowel movements. You can use the pain medication, nausea medication as prescribed as needed for pain and nausea. Please follow-up with your primary care doctor next 2 to 3 days. Please return to the ED for any new or worsening symptoms. In the event that this physician does not participate in your insurance network, please consult with your insurance company to find a nearby participating provider. Patient Education Materials: Constipation, Adult, Upqb-bs-Jyrz A MESSAGE TO ALL PATIENTS REGARDING OPIOIDS PRESCRIPTION OPIOIDS: WHAT YOU NEED TO KNOW Prescription opioids can be used to help relieve kiobjniy-rx-spyicv pain and are often prescribed following a surgery or injury, or for certain health conditions. These medications can be an important part of the treatment but also come with serious risks. It is important to work with your healthcare provider to make sure you are getting the safest, most effective care. WHAT ARE THE RISKS AND SIDE EFFECTS OF OPIOID USE? Prescription opioids carry serious risks of addiction and overdose, especially with prolonged use. An opioid overdose, often marked by slowed breathing, can cause sudden . The use of prescription opioids can have a number of side effects as well, even when taken as directed: ? Tolerance?meaning you might need to take more of the medication for the same pain relief ? Physical dependence?meaning you have symptoms of withdrawal when a medication is stopped ? Increased sensitivity to pain ? Constipation ? Nausea, vomiting, and dry mouth ? Sleepiness and dizziness ? Confusion ? Depression ? Low levels of testosterone that can result in lower sex drive, energy, and strength ? Itching and sweating RISKS ARE GREATER WITH: ? History of drug misuse, substance use disorder, or overdose ? Mental health conditions (such as depression or anxiety) ? Sleep apnea ? Older age (65 years and older) ? Avoid alcohol while taking prescription opioids. Also, unless specifically advised by your health care provider, medications to avoid include: ? Benzodiazepines (such as Xanax or Valium) ? Muscle relaxants (such as Soma or Flexeril) ? Hypnotics (such as Ambien or Lunesta) ? Other prescription opioids KNOW YOUR OPTIONS Talk to your health care provider about ways to manage your pain that don?t involve prescription opioids. Some of these options may actually work better and have fewer risks and side effects. Options may include: ? Pain relievers such as acetaminophen, ibuprofen, and naproxen ? Some medication that are also used for depression or seizures ? Physical therapy and exercise ? Cognitive behavioral therapy, a psychological, goal-directed approach, in which patients learn how to modify physical, behavioral, and emotional triggers of pain and stress. IF YOU ARE PRESCRIBED OPIOIDS FOR PAIN: ? Never take opioids in greater amounts or more often than prescribed. ? Follow up with your primary health care provider. o Work together to create a plan on how to manage your pain. o Talk about ways to help manage your pain that don?t involve prescription opioids. o Talk about any and all concerns and side effects. ? Help prevent misuse and abuse o Never sell or share prescription opioids. o Never use another person?s prescription opioids. ? Store prescription opioids in a secure place and out of reach of others (this may include visitors, children, friends, and family). ? Safely dispose of unused presc (more content not included)... Normal [facility] HEMATOLOGYOrdered By: SYSTEM SYSTEM on 09-03-2023 Basophils/100 WBC (Bld) 0.8 % Normal 0.0 - 2.0 % Remisol Heme Basophils/Leukocytes Auto (Bld) [Pure # fraction] 0.1 E9/L Normal 0.0 - 0.2 E9/L Remisol Heme Eosinophils (Bld) [#/Vol] 0.2 E9/L Normal 0.0 - 0.5 E9/L Rem[facility] Heme Eosinophils/100 WBC (Bld) 2.0 % Normal 0.0 - 8.0 % Remisol Heme Erythrocyte distribution width (RBC) [Ratio] 13.1 % Normal 10.9 - 14.2 % Rem[facility]e Hematocrit (Bld) [Volume fraction] 37.6 % Normal 34.0 - 46.0 % Remisol Heme Hemoglobin (Bld) [Mass/Vol] 12.5 g/dL Normal 12.0 - 16.0 gm/dL [facility]e Lymphocytes (Bld) [#/Vol] 4.4 E9/L High 1.0 - 4.0 E9/L [facility]e Lymphocytes/100 WBC (Bld) 37.3 % Normal 14.0 - 50.0 % Rem[facility] Heme MCH (RBC) [Entitic mass] 29.7 pg Normal 27.0 - 34.0 pg Remisol Heme MCHC (RBC) [Mass/Vol] 33.2 g/dL Normal 31.4 - 36.0 gm/dL [facility]e MCV (RBC) [Entitic vol] 89.4 fL Normal 80.0 - 100.0 fL [facility] Heme Monocytes (Bld) [#/Vol] 0.7 E9/L Normal 0.2 - 1.0 E9/L [facility]e Monocytes/100 WBC (Bld) 6.0 % Normal 4.0 - 14.0 % Rem[facility] Heme Neutrophils (Bld) [#/Vol] 6.4 E9/L Normal 2.0 - 7.5 E9/L [facility]e Neutrophils/100 WBC (Bld) 53.9 % Normal 36.0 - 75.0 % [facility] Heme Platelet mean volume (Bld) [Entitic vol] 7.6 fL Normal 6.4 - 10.8 fL [facility]e Platelets (Bld) [#/Vol] 233.0 E9/L Normal 150.0 - 500.0 E9/L [facility]e RBC (Bld) [#/Vol] 4.2 E12/L Low 4.3 - 5.9 E12/L [facility] WBC corrected for nucl RBC Auto (Bld) [#/Vol] 11.9 E9/L High 4.0 - 11.0 E9/L [facility] UA with Cult Rflxon 09-03-19 24 Bilirubin Ql (U) Negative Normal Negative Herb Curiel [facility] Comment on above: Performed By: #### 4 [id number] #### Herb [facility] [address] [place] [address] Clarity (U) Clear Normal Clear [facility] Comment on above: Performed By: #### 4 [id number] #### [facility] [address] [place] [address] Color (U) Light-Yellow Normal Yellow [facility] Comment on above: Result Comment: Micr oscopic readings are only performed on those samples that meet specific criteria set forth by [facility]. Performed By: #### 4 [id number] #### [facility] [address] [place] [address] Epithelial cells.squamous Auto (Urine sed) [#/Area] 5-[address] [facility] Comment on above: Performed By: #### 4 [id number] #### [facility] [address] [place] [address] Glucose Ql (U) Negative Normal Negative [facility] Comment on above: Performed By: #### 4 [id number] #### [facility] [address] [place] [address] Hemoglobin Auto test strip (U) [Mass/Vol] 1+ mg/dL Abnormal Negative [facility] Comment on above: Performed By: #### 4 [id number] #### [facility] [address] [place] [address] Ketones Auto test strip Ql (U) Negative Normal Negative [facility] Comment on above: Performed By: #### 4 [id number] #### [facility] [address] [place] [address] Leukocyte esterase Auto test strip Ql (U) Negative Normal Negative [facility] Comment on above: Performed By: #### 4 [id number] #### [facility] [address] [place] [address] Mucus Auto Ql (U) Trace Normal Negative [facility] Comment on above: Performed By: #### 4 [id number] #### [facility] [address] [place] [address] Nitrite Auto test strip Ql (U) Negative Normal Negative [facility] Comment on above: Performed By: #### 4 [id number] #### [facility] [address] [place] [address] pH (U) 6.5 [pH] Invalid Interpretation Code 5.0-9.0 [facility] Comment on above: Performed By: #### 4 [id number] #### [facility] [address] [place] [address] Protein Ql (U) Negative Normal Negative [facility] Comment on above: Performed By: #### 4 [id number] #### [facility] [address] [place] [address] RBC Ql (U) 4-20 Abnormal 0-3 [facility] Comment on above: Performed By: #### 4 [id number] #### [facility] [address] [place] [address] Specific gravity (U) [Rel density] 1.028 Invalid Interpretation Code 1.005-1.[address] [facility] Comment on above: Performed By: #### 4 [id number] #### [facility] [address] [place] [address] Urobilinogen (U) [Mass/Vol] Negative Normal Negative [facility] Comment on above: Performed By: #### 4 [id number] #### [facility] [address] [place] [address] WBC Auto (Urine sed) [#/Area] 0-5 Normal 0-5 [facility] Comment on above: Performed By: #### 4 [id number] #### [facility] [address] [place] [address] Type of Urine collection method Clean Catch Normal [facility] Comment on above: Performed By: #### 4 [id number] #### [facility] [address] [place] [address] URINALYSISOrdered By: SYSTEM SYSTEM on 09-03-2023 Bilirubin Ql (U) Negative Normal Negativemg /dL [facility] UA Auto SS Clarity (U) Clear (09/03/23 9:06 PM) Normal Clear [facility] UA Auto SS Color (U) Light-Yellow 1 (09/03/23 9:06 PM) Normal Yellow [facility] Auto SS Comment on above: Interpretive Data: M icroscopic readings are only performed on those samples that meet specific criteria set forth by [facility]. Epithelial cells.squamous Auto (Urine sed) [#/Area] 5-8 graded/HPF Invalid Interpretation Code [facility] UA Auto SS Glucose Ql (U) Negative Normal Negativemg /dL [facility] Auto SS Hemoglobin Auto test strip (U) [Mass/Vol] 1+ mg/dL Invalid Interpretation Code Negativemg /dL [facility] UA Auto SS Ketones Auto test strip Ql (U) Negative Normal Negativemg /dL [facility] UA Auto SS Leukocyte esterase Auto test strip Ql (U) Negative Normal NegativeLe u/uL [facility] UA Auto SS Mucus Auto Ql (U) Trace graded/LPF Normal Negati vegr aded/LPF [facility] UA Auto SS Nitrite Auto test strip Ql (U) Negative Normal Negativemg /dL [facility] UA Auto SS pH (U) 6.5 *NA* (09/03/23 9:06 PM) Invalid Interpretation Code 5.0 - 9.0 [facility] UA Auto SS Protein Ql (U) Negative Normal Negativemg /dL [facility] Auto SS RBC Ql (U) 4-20 graded/HPF Invalid Interpretation Code 0-3graded/ HPF [facility] UA Auto SS Specific gravity (U) [Rel density] 1.028 *NA* (09/03/23 9:06 PM) Invalid Interpretation Code 1.005 - 1.030 [facility] UA Auto SS Urobilinogen (U) [Mass/Vol] Negative Normal Negativemg /dL [facility] UA Auto SS WBC Auto (Urine sed) [#/Area] 0-5 graded/HPF Normal 0-5graded/ HPF [facility] UA Auto SS URINALYSISOrdered By: Riddhi Oliva on 09-03-2023 UA Spec Desc Clean Catch (09/03/23 9:06 PM) Normal [facility] UA Auto SS eGFRon 09-03-2023 eGFR 85 mL/min/1.73 m2 Normal >=59 [facility] Comment on above: Order Comment: Order added by Discern Expert. Performed By: #### 1 [id number] #### [facility] [address] [place] [address] CT Abdomen/Pelvis w/o Garcia friedman 08-28-2023 CT Abdomen/Pelvis w/o Contrast Exam Date/Time: 08/27/2023 20:19 EDT Reason for Exam: ABDOMINAL PAIN, ACUTE, NONLOCALIZED;Other (please specify) Report IMPRESSION: NO EVIDENCE OF OBSTRUCTIVE UROPATHY. NO EVIDENCE OF ACUTE ABDOMINAL OR PELVIC PATHOLOGY. LEFT OVARIAN CYST. CLINICAL HISTORY: ABDOMINAL PAIN, ACUTE, NONLOCALIZED. Left-sided pain. COMPARISON: 12/27/2021. COMMENT: Unenhanced images were obtained. There is a 0.2 cm nonobstructing calculus in the left kidney superiorly. No calculus is noted in the right kidney. No calculus is noted in either ureter. The renal collecting systems are not dilated. The kidneys otherwise appear unremarkable, within the limits of this unenhanced study. There are surgical clips at the gallbladder fossa, from prior cholecystectomy. Extrahepatic bile ducts are within normal limits postcholecystectomy. The liver, spleen, pancreas, and adrenal glands are unremarkable. There are small nonspecific retroperitoneal and mesenteric lymph nodes. No prominently enlarged retroperitoneal or mesenteric lymph nodes are noted. The abdominal aorta is normal in diameter. No aneurysm is evident. Evaluation of bowel is limited on this study. The bowel loops are not dilated. There is no evidence of bowel obstruction. The appendix is normal. The colon is relatively collapsed. There is no evidence of diverticulitis. No abdominal inflammatory complex, no free air, nor free fluid is noted. The uterus is anteverted. There is a left ovarian cyst that measures 2.3 x 2.6 x 2.4 cm. Small right and left adnexal metallic densities that were present on the prior CT scan (presumably tubal ligation clips) are not delineated on the current study. No pelvic lymphadenopathy is evident. There is not much fluid in the lumen of the urinary bladder, and lack of full distention limits evaluation of the urinary bladder. No bladder calculus is evident. There are minimal hypertrophic degenerative changes of some of the lumbar and visualized lower thoracic vertebral bodies. No significant bony abnormality is evident. All CT scans at this facility use dose modulation, iterative reconstruction, and/or weight based dosing when appropriate to reduce radiation dose to as low as reasonably achievable. Unless otherwise stated, incidental findings identified in this report do not require routine follow-up imaging. Report Ordering Provider: Peter Lopez FINAL REPORT Dictated: 08/28/2023 9:43 am Osmel Marino M.D. Signed (Electronic Signature): 08/28/2023 9:43 am Signed by: Osmel Marino M.D. Transcribed by: FATIMAH Technologist: ENRIQUE Technical Comments Rectal Contrast Given? No Oral contrast amount in ml's: 0 Normal [facility] ED Note-Physicianon 08-28-19 ED Note-Physician ED Note-Physician Basic Information Time Seen: Peter Lopez PA-C 08/27/2023 19:29 Chief Complaint pt arrives for c/o left sided abd pain since sunday. pt states she was seen in the ed yesterday and dx with migraine. History of Present Illness 33-year-old female reports to the emerged part with chief complaint of left-sided abdominal pain. Reports been gone since Sunday. States that she was seen yesterday in ED and diagnosed with migraine. Reports pain in her entire left side of her upper chest down to her abdomen. Denies any fevers or chills. Denies any nausea or vomiting with this. States that she is in a lot of pain. Reports multiple allergies. Denies any cardiac history. Review of Systems No other aggravating or relieving factors no other associated symptoms no other prior treatments or complaints. Family: Reviewed and noncontributory Social: lives at home Review of systems negative unless otherwise specified in the HPI. Physical Exam Vitals & Measurements T: 36.5 ?C(Oral) HR: 76(Monitored) RR: 18 BP: 131/104 SpO2: 97% HT: 150 cm WT: 95.7 kg BMI: 42.53 General: The patient appears well and in no apparent distress. Patient is resting comfortably on bed. Afebrile Skin: Warm, dry, no pallor noted. Head: Normocephalic, atraumatic Neck: No JVD Eye: PERRLA, EOMI ENT: Moist mucus membranes Cardiovascular: Regular rate normal peripheral perfusion. Radial pulses +2 bilaterally Respiratory: No respiratory distress no accessory muscle use no obvious audible wheezing. Lung sounds clear Chest Wall: no deformity Musculoskeletal: normal ROM, no deformity, no swelling GI: No obvious distention soft, with tenderness noted in left flank. No rebound tenderness or guarding. Neurological: A&O moves all extremities equal strength and symmetry Psychiatric: Cooperative and appropriate Medical Decision Making MEDICAL DECISION MAKING Number and Complexity of Problems Differential Diagnosis: [] [facility] Data External documents reviewed: [] My EKG interpretation: Reviewed My CT interpretation: Reviewed My X-ray interpretation: reviewed My Ultrasound interpretation: [] Decision rules/scores evaluated: [] Discussed with: [] Treatment and Disposition ED Course: 33-year-old female reports to the emergency department with chief complaint of left-sided flank pain. Reports that is, extending anterior trunk as well. Denies any fevers or chills. Reports was here yesterday and diagnosed with migraine. Reports having pain in her left side of her body now. Exam the patient is rather benign. She does have left-sided flank pain, no other acute findings. Due to concerns we did give pain medicine as well as a full workup. Lab work reviewed noted. No acute changes seen. Negative troponin. Does not appear to be cardiac cause. No signs of UTI. We did do chest x-ray and EKG that was normal. We did do a CT that did show a 2 mm nonobstructing left renal calculus. There is also a benign dominant 2.5 x 1.8 cm left ovarian follicle. No other acute findings. Discussed could be more musculoskeletal pain. Discussed that she does have a stone in her kidney. She is nontoxic-appearing. No acute distress. Will be discharged home with pain medications and follow-up with PCP. Follow-up with your primary care provider in 3 to 5 days. If symptoms worsen, do not improve, or new symptoms arise please report back to emergency department for further evaluation. The patient was understanding and agreeable to plan moving forward. Shared decision making: [] Code status: [] Assessment/Plan Left flank pain (R10.9: Unspecified abdominal pain) Stone in kidney (N20.0: Calculus of kidney) Orders: acetaminophen-oxycodone, 1 EA, Tab, Oral, Once, Stop date 08/27/23 22:55:00 EDT, STAT, Start date 08/27/23 22:55:00 EDT dicyclomine, 10 mg = 1 cap(s), Oral, QID, X 7 day(s), # 28 cap(s), Refills(s) 0, Pharmacy: [id number], 150, cm, 08/27/23 19:10:00 EDT, Height/Length Dosing, 95.7, kg, 08/27/23 19:10:00 EDT, Weight Dosing ketorolac, 30 mg = 1 mL, Injection, IV Push, Once, Stop date 08/27/23 22:54:00 EDT, STAT, Start date 08/27/23 22:54:00 EDT, 08/27/23 22:54:00 EDT morphine, 4 mg = 1 mL, Injection, IV Push, Once, Stop date 08/27/23 19:45:00 EDT, STAT, Start date 08/27/23 19:45:00 EDT, 08/27/23 19:45:00 EDT ondansetron, 4 mg = 1 tab(s), Oral, q8hr, PRN Nausea/Vomiting, # 12 tab(s), Refills(s) 0, Pharmacy: [facility], 150, cm, 08/27/23 19:10:00 EDT, Height/Length Dosing, 95.7, kg, 08/27/23 19:10:00 EDT, Weight Dosing ondansetron, 12 mg = 3 tab(s), Tab-Dis, Oral, Once, Stop date 08/27/23 22:55:00 EDT, STAT, Start date 08/27/23 22:55:00 EDT, 08/27/23 22:55:00 EDT promethazine 25 mg + Sodium Chloride 0.9% intravenous solution 50 mL, Injection, IV Piggyback, Once, Stop date 08/27/23 19:45:00 EDT, STAT, Start date 08/27/23 19:45:00 EDT, 153 mL/hr, Infuse over 20 minute(s) Sodium Chloride 0.9% intravenous solution, 1,000 mL, (more content not included)... Normal [facility] Comment on above: Result Comment: Elec tronically Signed By: John POWER, Peter Gupta\.br\Date and Time Signed: 08/27/23 23:25 EDT\.br\Electronically Co-Signed By: Jorge Oliva DO\.br\Date and Time Co-Signed: 08/28/23 06:39 EDT XR Chest 2 Viewson XR Chest 2 Views Exam Date/Time: 08/27/2023 20:31 EDT Reason for Exam: Abdominal pain;Other (please specify) Report IMPRESSION: NO EVIDENCE OF ACTIVE CHEST DISEASE. CLINICAL HISTORY: Abdominal pain. Left-sided pain. COMPARISON: 05/02/2022. COMMENT: The heart is normal in size. The mediastinum is unremarkable. The lungs appear clear. No infiltration nor pleural effusion is evident. No significant change is noted when compared to the prior exam. Ordering Provider: Peter Lopez FINAL REPORT Dictated: 08/28/2023 7:44 am Osmel Marino M.D. Signed (Electronic Signature): 08/28/2023 7:44 am Signed by: Osmel Marino M.D. Transcribed by: FATIMAH Technologist: ADRIA Technical Comments Radiation Dose: Ka,r in mGy = n/a DAP = n/a Normal [facility] B hCG [place] 08-27-2023 Beta HCG ( test) Ql Negative Normal [facility] Comment on above: Performed By: #### 2 [id number] #### [facility] [address] [place] [address] BMPon 08-27-2023 Anion gap [Moles/Vol] 10 mmol/L Normal 6-16 [facility] Comment on above: Performed By: #### 2 [id number] #### [facility] [address] [place] [address] Calcium [Mass/Vol] 8.7 mg/dL Low 8.9-11.1 [facility] Comment on above: Performed By: #### 2 [id number] #### [facility] [address] [place] [address] Chloride [Moles/Vol] 106 mmol/L Normal 101-[address] [facility] Comment on above: Performed By: #### 2 [id number] #### [facility] [address] [place] [address] CO2 [Moles/Vol] 27 mmol/L Normal 21-31 [facility] Comment on above: Performed By: #### 2 [id number] #### [facility] [address] [place] [address] Creatinine [Mass/Vol] 0.7 mg/dL Normal 0.5-1.3 [facility] Comment on above: Performed By: #### 2 [id number] #### [facility] [address] [place] [address] Glucose [Mass/Vol] 88 mg/dL Normal 55-199 [facility] Comment on above: Performed By: #### 2 [id number] #### [facility] [address] [place] [address] Potassium [Moles/Vol] 3.9 mmol/L Normal 3.5-5.3 [facility] Comment on above: Performed By: #### 2 [id number] #### [facility] [address] [place] [address] Sodium [Moles/Vol] 139 mmol/L Normal 135-145 [facility] Comment on above: Performed By: #### 2 [id number] #### [facility] [address] [place] [address] Urea nitrogen [Mass/Vol] 9 mg/dL Normal 5-21 [facility] Comment on above: Performed By: #### 2 [id number] #### [facility] [address] [place] [address] Urea nitrogen/Creatinine [Mass ratio] 13 No Units Normal 10-20 [facility] Comment on above: Performed By: #### 2 [id number] #### [facility] [address] [place] [address] CBC w/ Auto Diffon 4 Basophils/100 WBC (Bld) 0.6 % Normal 0.0-2.0 [facility] Comment on above: Performed By: #### 2 [id number] #### [facility] [address] [place] [address] Basophils/Leukocytes Auto (Bld) [Pure # fraction] 0.1 E9/L Normal 0.0-0.2 [facility] Comment on above: Performed By: #### 2 [id number] #### [facility] [address] [place] [address] Eosinophils (Bld) [#/Vol] 0.1 E9/L Normal 0.0-0.5 [facility] Comment on above: Performed By: #### 2 [id number] #### [facility] [address] [place] [address] Eosinophils/100 WBC (Bld) 1.0 % Normal 0.0-8.0 [facility] Comment on above: Performed By: #### 2 [id number] #### [facility] [address] [place] [address] Erythrocyte distribution width (RBC) [Ratio] 13.4 % Normal 10.9-14.2 [facility] Comment on above: Performed By: #### 2 [id number] #### [facility] [address] [place] [address] Hematocrit (Bld) [Volume fraction] 38.4 % Normal 34.0-46.0 [facility] Comment on above: Performed By: #### 2 [id number] #### [facility] [address] [place] [address] Hemoglobin (Bld) [Mass/Vol] 12.6 g/dL Normal 12.0-16.0 [facility] Comment on above: Performed By: #### 2 [id number] #### [facility] [address] [place] [address] Lymphocytes (Bld) [#/Vol] 3.9 E9/L Normal 1.0-4.0 [facility] Comment on above: Performed By: #### 2 [id number] #### [facility] [address] [place] [address] Lymphocytes/100 WBC (Bld) 34.3 % Normal 14.0-50.0 [facility] Comment on above: Performed By: #### 2 [id number] #### [facility] [address] [place] [address] MCH (RBC) [Entitic mass] 29.4 pg Normal 27.0-34.0 [facility] Comment on above: Performed By: #### 2 [id number] #### [facility] [address] [place] [address] MCHC (RBC) [Mass/Vol] 32.9 g/dL Normal 31.4-36.0 [facility] Comment on above: Performed By: #### 2 [id number] #### [facility] [address] [place] [address] MCV (RBC) [Entitic vol] 89.4 fL Normal 80.0-100.0 [facility] Comment on above: Performed By: #### 2 [id number] #### [facility] [address] [place] [address] Monocytes (Bld) [#/Vol] 0.7 E9/L Normal 0.2-1.0 [facility] Comment on above: Performed By: #### 2 [id number] #### [facility] [address] [place] [address] Neutrophils (Bld) [#/Vol] 6.6 E9/L Normal 2.0-7.5 [facility] Comment on above: Performed By: #### 2 [id number] #### [facility] [address] [place] [address] Neutrophils/100 WBC (Bld) 57.9 % Normal 36.0-75.0 [facility] Comment on above: Performed By: #### 2 [id number] #### [facility] [address] [place] [address] Platelet mean volume (Bld) [Entitic vol] 7.5 fL Normal 6.4-10.8 [facility] Comment on above: Performed By: #### 2 [id number] #### [facility] [address] [place] [address] Platelets (Bld) [#/Vol] 241.0 E9/L Normal 150.0-500. 0 [facility] Comment on above: Performed By: #### 2 [id number] #### [facility] [address] [place] [address] RBC (Bld) [#/Vol] 4.3 E12/L Normal 4.3-5.9 [facility] Comment on above: Performed By: #### 2 [id number] #### [facility] [address] [place] [address] WBC corrected for nucl RBC Auto (Bld) [#/Vol] 11.5 E9/L High 4.0-11.0 [facility] Comment on above: Performed By: #### 2 [id number] #### [facility] [address] [place] [address] CHEMISTRYOrdered By: SYSTEM SYSTEM on 08-27-2023 Albumin [Mass/Vol] 4.0 g/dL Normal 3.3 - 5.0 gm/dL [facility] Albumin/Globulin [Mass ratio] 1.3 {ratio} Normal 1.1 - 2.2 [facility] ALP [Catalytic activity/Vol] 90 [iU]/d Normal 21 - 98 Int._Unit/ L [facility] ALT No additional P-5'-P [Catalytic activity/Vol] 13 [iU]/d Normal 6 - 46 Int._Unit/ L [facility] Anion gap [Moles/Vol] 10 mmol/L Normal 6 - 16 mEq/L [facility] AST [Catalytic activity/Vol] 16 [iU]/d Normal 5 - 43 Int._Unit/ L [facility] Bilirubin [Mass/Vol] 0.5 mg/dL Normal 0.0 - 1 .1 mg/dL [facility] Bilirubin.direct [Mass/Vol] 0.1 mg/dL Normal 0.0 - 0.4 mg/dL [facility] Bilirubin.indirect [Mass or moles/Vol] 0.4 mg/dL Normal 0.1 - 0.9 mg/dL [facility] Calcium [Mass/Vol] 8.7 mg/dL Low 8.9 - 11. 1 mg/dL [facility] Chloride [Moles/Vol] 106 mmol/L Normal 101 - 1 11 mmol/L [facility] CO2 [Moles/Vol] 27 mmol/L Normal 21 - 31 mmol/L [facility] Creatinine [Mass/Vol] 0.7 mg/dL Normal 0.5 - 1.3 mg/dL [facility] eGFR 115 mL/min/1.73 m2 Normal >=59mL/mi n /1.73 m2 [facility] Globulin (S) [Mass/Vol] 3.0 g/dL Normal 1.4 - 4.0 gm/dL [facility] Glucose [Mass/Vol] 88 mg/dL Normal 55 - 199 mg/dL [facility] Lipase [Catalytic activity/Vol] 11 U/L Low 13 - 58 unit/L [facility] Potassium [Moles/Vol] 3.9 mmol/L Normal 3.5 - 5.3 mmol/L [facility] Protein [Mass/Vol] 7.0 g/dL Normal 6.0 - 7.8 gm/dL [facility] Sodium [Moles/Vol] 139 mmol/L Normal 135 - 145 mmol/L Remisol Chem Troponin HS 2.90 pg/mL Low 10.10 - 27.10 pg/mL [facility] Comment on above: Interpretive Data: T he 95% CI (Confidence Interval) PPV (Positive Predictive Value) for myocardial infarction in females is 38 pg/mL, in males 51 pg/mL. The results should be used in conjunction with clinical conditions of myocardial infarction. (Access High Sensitivity Troponin I Instructions For Use, Sharon [place], September 2017) Urea nitrogen [Mass/Vol] 9 mg/dL Normal 5 - 21 mg/dL Rem[facility] Chem Urea nitrogen/Creatinine [Mass ratio] 13 mg/mg Normal 10 - 20 [facility] Chem COAGULATIONOrdered By: Rufino Gandhi on 08-27-2023 aPTT Coag (PPP) [Time] 28.5 s Normal 25.1 - 36.5 second(s) [facility] Auto Coag Comment on above: Interpretive Data: Catarina siegel 15 days - 4 weeks 1 - 5 months 6 - 11 months 1 - 5 years 6 - 10 years 11 - 17 years PTT Mean: 35.4 (27.6-45.6) Mean: 33.5 (24.8-40.7) Mean: 32.4 (25.1-40.7) Mean: 31.6 (24.0-39.2) Mean: 31.6 (26.9-38.7) Mean: 31.0 (24.6-38.4) Pediatric Reference ranges were obtained from a study by rickey Marshall alCheryl prepared from 1437 samples obtained at 7 different centers using the same coagulation reagent and instrumentation as [facility]. Currently there are no coagulation studies available worldwide for children to 14 days, and no normal ranges. Heparin therapeutic range (represented by Anti-Factor Xa activity of 0.2 - 0.4 U/mL) corresponds to PTT of 56.6 - 109.0 sec. INR Coag (PPP) [Relative time] 1.07 {INR} Invalid Interpretation Code [facility] Auto Coag Comment on above: Interpretive Data: I NR results are specifically intended to assess patients stabilized on long-term Anticoagulation therapy suggested INR s Less Intensive Anticoagulation 2.0 3.0 Conventional Range 3.0 4.5 PT Coag (PPP) [Time] 12.0 s Normal 9.4 - 1 2.5 second(s) [facility] Auto Coag Comment on above: Interpretive Data: 1 5 days - 4 weeks 1 - 5 months 6 -11 months 1 5 years 6 10 years 11 -17 years Mean: 11.2 (9.5 12.6) Mean: 11.0 (9.7 12.8) Mean: 11.0 (9.8 13.0) Mean: 11.3 (9.9 13.4) Mean: 11.7 (10.0 14.6) Mean: 11.8 (10.0 - 14.1) Pediatric Reference ranges were obtained from a study by rickey Marshall al. prepared from 1437 samples obtained at 7 different centers using the same coagulation reagent and instrumentation as [facility]. Currently there are no coagulation studies available worldwide for children to 14 days, and no normal ranges. ED Clinical Summaryon 2023 ED Clinical Summary ED Clinical Summary [address] [address] ED Clinical Summary Person Information Name: TRACIE SAMUELS [place] Age: 33 Years : 1990 Sex: Female Language: Swazi PCP: KATLIN FERNANDEZ DO Marital Status: Single Visit Id: Visit Reason: Nausea and vomiting; Abdominal pain; ABD PAIN, VOMITING Speciality: Acuity: 3 Enc Type: Emergency Med Service: Emergency Arrival: 08/27/2023 19:03:58 Discharge: 08/27/2023 23:21:58 LOS: 000 04:18 Checkin: 08/27/2023 19:03:58 Checkout: 08/27/2023 23:21:58 Dispo Type: Home (Routine DC) EVENTS: Event Name Event Status Request Date/Time Start Date/Time Complete Date/Time Arrive Complete 08/27/2023 19:03:58 08/27/2023 19:03:58 08/27/2023 19:03:58 Document Home Meds Request 08/27/2023 19:03:58 Triage Complete 08/27/2023 19:03:58 08/27/2023 19:10:39 08/27/2023 19:10:39 Registration Complete 08/27/2023 19:08:23 08/27/2023 19:08:23 08/27/2023 19:08:23 Reg Complete Request 08/27/2023 19:08:23 Reg Bed Request Complete 08/27/2023 19:08:23 08/27/2023 19:08:23 08/27/2023 19:08:23 Bed Assign Complete 08/27/2023 19:25:37 08/27/2023 19:25:37 08/27/2023 19:25:37 Dr Exam Complete 08/27/2023 19:25:37 08/27/2023 19:29:30 08/27/2023 19:29:30 RN Exam Complete 08/27/2023 19:25:37 08/27/2023 20:13:15 08/27/2023 20:13:15 Registration Request 08/27/2023 19:29:30 Dr Exam Complete 08/27/2023 19:30:20 08/27/2023 19:30:20 08/27/2023 19:30:20 EKG Complete 08/27/2023 19:45:20 08/27/2023 19:57:54 X-Ray Complete 08/27/2023 19:45:20 08/27/2023 20:09:29 08/27/2023 20:31:54 CT Complete 08/27/2023 19:45:20 08/27/2023 19:54:45 08/27/2023 20:19:01 Meds Admin Complete 08/27/2023 19:45:20 08/27/2023 20:01:16 Pending Labs Complete 08/27/2023 19:45:20 08/27/2023 21:15:25 Lab Complete 08/27/2023 19:45:20 08/27/2023 20:42:22 Pending Labs Complete 08/27/2023 20:18:49 08/27/2023 20:18:49 08/27/2023 20:42:22 Lab Complete 08/27/2023 20:18:49 08/27/2023 20:18:49 08/27/2023 20:42:22 Wet Read Request 08/27/2023 20:31:54 EKG Complete 08/27/2023 20:40:17 08/27/2023 20:44:24 Meds Admin Complete 08/27/2023 22:14:12 08/27/2023 22:24:29 Meds Admin Complete 08/27/2023 22:55:08 08/27/2023 23:17:51 Meds Admin Complete 08/27/2023 22:55:43 08/27/2023 23:17:52 Discharge Complete 08/27/2023 22:59:08 08/27/2023 23:24:04 08/27/2023 23:24:04 Transfer Complete 08/27/2023 23:24:04 08/27/2023 23:24:04 08/27/2023 23:24:04 ADDRESS: [address] [place] [address] [address] [facility] [id number] PHYS DOC NOTES: MEDICAL INFORMATION: Prescriptions Given: Medications to Continue Taking That Have Changed [facility], [address] [place], [place] [id number], [phone] START: dicyclomine (Bentyl 10 mg Cap) 1 Capsules By Mouth 4 times a day for 7 Days. Refills: 0. START: ondansetron (Zofran ODT 4 mg Tab-Dis) 1 Tablets By Mouth every 8 hours as needed Nausea/Vomiting. Refills: 0. Other Medications START: dicyclomine (Bentyl 10 mg Cap) 2 Capsules By Mouth 4 times a day. Refills: 0. START: ondansetron (Zofran ODT 4 mg Tab) 1 Tablets By Mouth every 6 hours as needed Nausea/Vomiting. Refills: 0. START: ondansetron (Zofran ODT 4 mg Tab) 1 Tablets By Mouth every 6 hours as needed Nausea/Vomiting. Refills: 0. START: ondansetron (Zofran ODT 4 mg Tab-Dis) 1 Tablets By Mouth 3 times a day. Refills: 0. START: ondansetron (Zofran ODT 4 mg Tab-Dis) 1 Tablets By Mouth every 8 hours as needed Nausea/Vomiting. Refills: 0. Medications to Continue with No Changes Other Medications acetaminophen-oxycodone (Percocet 5 mg-325 mg oral tablet) 1 Tablets By Mouth every 6 hours as needed as needed for pain. Refills: 0. acetaminophen-oxycodone (Percocet 5 mg-325 mg oral tablet) 1 Tablets By Mouth every 6 hours. Refills: 0. albuterol (albuterol 0.083% Inh Claire 3 mL UD) 3 Milliliter Inhalation every 6 hours. Refills: 0. albuterol (albuterol 0.083% Inh Claire 3 mL) 3 Milliliter Nebulized inhalation (aerosol) every 6 hours as needed Shortness of breath or wheezing. albuterol (ProAir HFA 90 mcg/inh inhalation aerosol) 2 Puffs Inhalation 4 times a day as needed Shortness of breath or wheezing. famotidine (Pepcid 20 mg Tab) 1 Tablets By Mouth 2 times a day. Refills: 0. indomethacin lidocaine topical (lidocaine Top 5% film Patch) 1 Patches Topical every day. apply 12 hours on and 12 hours off daily. Refills: 0. meloxicam (meloxicam 15 mg oral tablet) By Mouth every day. meloxicam (meloxicam 15 mg oral tablet) 1 Tablets By Mouth every day. Refills: 0. metformin (metformin 500 mg oral tablet) 1 Tablets By Mouth As Directed. mupirocin topical (mupirocin Top 2% Oint) 1 Application Topical 3 times a day. Refills: 0. naproxen (Naprosyn 500 mg Tab) 1 Tablets By Mouth 2 times a day as needed for pain. Refills: 0. naproxen (Naprosyn 500 mg Tab) 1 Tablets By Mouth 2 times a day. Refills: 0. naproxen (naproxen 375 mg Tab) 1 Tablets By Mouth every 12 hours. Refills: 0. pantoprazole (Pantoprazole [address] Tab) polyethy (more content not included)... Normal [facility] ED Note-Nursingon 08-27-2023 ED Note-Nursing ED Note-Nursing Patient sent home with a urine strainer and specimen cups. Patient given directions on how to strain her urine each time, states an understanding. Normal [facility] ED Patient Summaryon 024 ED Patient Summary ED Patient Summary [address] [address] Patient Discharge Instructions Person Information Name: TRACIE SAMUELS Age: 33 Years Arrival Date: 08/27/2023 19:03:58 Discharge Diagnosis: Left flank pain; Stone in kidney Primary Care Physician: KATLIN FERNANDEZ DO Provider Information Primary Provider: Jorge Oliva DO Advanced Meter Reader Chief:None The exam and treatment you received in the Emergency Department were for an urgent problem and are not intended as complete care. It is important that you follow up with a doctor, nurse practitioner, or physician?s drug safety assistant for ongoing care. If your symptoms become worse or you do not improve as expected and you are unable to reach your usual health care provider, you should return to the Emergency Department. We are available 24 hours a day. ARVIND TRACIE Brown has been given the following list of patient education materials, prescriptions and follow-up instructions: Follow-up Instructions: With: Address: When: KATLIN FERNANDEZ [address] [place] [id number] [facility] (1) In 3 days 08/30/2023 Comments: Call Dr for diagnosis based follow up In the event that this physician does not participate in your insurance network, please consult with your insurance company to find a nearby participating provider. Patient Education Materials: Flank Pain, Adult A MESSAGE TO ALL PATIENTS REGARDING OPIOIDS PRESCRIPTION OPIOIDS: WHAT YOU NEED TO KNOW Prescription opioids can be used to help relieve uiqivvix-nt-hovhyy pain and are often prescribed following a surgery or injury, or for certain health conditions. These medications can be an important part of the treatment but also come with serious risks. It is important to work with your healthcare provider to make sure you are getting the safest, most effective care. WHAT ARE THE RISKS AND SIDE EFFECTS OF OPIOID USE? Prescription opioids carry serious risks of addiction and overdose, especially with prolonged use. An opioid overdose, often marked by slowed breathing, can cause sudden . The use of prescription opioids can have a number of side effects as well, even when taken as directed: ? Tolerance?meaning you might need to take more of the medication for the same pain relief ? Physical dependence?meaning you have symptoms of withdrawal when a medication is stopped ? Increased sensitivity to pain ? Constipation ? Nausea, vomiting, and dry mouth ? Sleepiness and dizziness ? Confusion ? Depression ? Low levels of testosterone that can result in lower sex drive, energy, and strength ? Itching and sweating RISKS ARE GREATER WITH: ? History of drug misuse, substance use disorder, or overdose ? Mental health conditions (such as depression or anxiety) ? Sleep apnea ? Older age (65 years and older) ? Avoid alcohol while taking prescription opioids. Also, unless specifically advised by your health care provider, medications to avoid include: ? Benzodiazepines (such as Xanax or Valium) ? Muscle relaxants (such as Soma or Flexeril) ? Hypnotics (such as Ambien or Lunesta) ? Other prescription opioids KNOW YOUR OPTIONS Talk to your health care provider about ways to manage your pain that don?t involve prescription opioids. Some of these options may actually work better and have fewer risks and side effects. Options may include: ? Pain relievers such as acetaminophen, ibuprofen, and naproxen ? Some medication that are also used for depression or seizures ? Physical therapy and exercise ? Cognitive behavioral therapy, a psychological, goal-directed approach, in which patients learn how to modify physical, behavioral, and emotional triggers of pain and stress. IF YOU ARE PRESCRIBED OPIOIDS FOR PAIN: ? Never take opioids in greater amounts or more often than prescribed. ? Follow up with your primary health care provider. o Work together to create a plan on how to manage your pain. o Talk about ways to help manage your pain that don?t involve prescription opioids. o Talk about any and all concerns and side effects. ? Help prevent misuse and abuse o Never sell or share prescription opioids. o Never use another person?s prescription opioids. ? Store prescription opioids in a secure place and out of reach of others (this may include visitors, children, friends, and family). ? Safely dispose of unused prescription opioids: Find your community drug take-back program or your pharmacy mail-back program, or flush them down the toilet, following guidance from the Food and Drug Administration (www.fda.gov/Drugs/Resour cesForYou). ? Visit www.cdc.gov/drugoverdose to learn about the risks of opioids abuse and overdose. ? If you believe you may be struggling with addiction, tell your health technical healthcare consultant and ask for guidance or call [facility] (more content not included)... Normal [facility] HEMATOLOGYOrdered By: SYSTEM SYSTEM on 08-27-2023 Basophils/100 WBC (Bld) 0.6 % Normal 0.0 - 2.0 % Remisol Heme Basophils/Leukocytes Auto (Bld) [Pure # fraction] 0.1 E9/L Normal 0.0 - 0.2 E9/L Rem[facility] Heme Eosinophils (Bld) [#/Vol] 0.1 E9/L Normal 0.0 - 0.5 E9/L Rem[facility] Heme Eosinophils/100 WBC (Bld) 1.0 % Normal 0.0 - 8.0 % Rem[facility] Heme Erythrocyte distribution width (RBC) [Ratio] 13.4 % Normal 10.9 - 14.2 % Rem[facility] Heme Hematocrit (Bld) [Volume fraction] 38.4 % Normal 34.0 - 46.0 % Rem[facility] Heme Hemoglobin (Bld) [Mass/Vol] 12.6 g/dL Normal 12.0 - 16.0 gm/dL [facility] Heme Lymphocytes (Bld) [#/Vol] 3.9 E9/L Normal 1.0 - 4.0 E9/L [facility] Heme Lymphocytes/100 WBC (Bld) 34.3 % Normal 14.0 - 50.0 % Rem[facility] Heme MCH (RBC) [Entitic mass] 29.4 pg Normal 27.0 - 34.0 pg Remisol Heme MCHC (RBC) [Mass/Vol] 32.9 g/dL Normal 31.4 - 36.0 gm/dL [facility] Heme MCV (RBC) [Entitic vol] 89.4 fL Normal 80.0 - 100.0 fL [facility]e Monocytes (Bld) [#/Vol] 0.7 E9/L Normal 0.2 - 1.0 E9/L [facility] Heme Monocytes/100 WBC (Bld) 6.2 % Normal 4.0 - 14.0 % [facility] Heme Neutrophils (Bld) [#/Vol] 6.6 E9/L Normal 2.0 - 7.5 E9/L [facility]e Neutrophils/100 WBC (Bld) 57.9 % Normal 36.0 - 75.0 % [facility] Platelet mean volume (Bld) [Entitic vol] 7.5 fL Normal 6.4 - 10.8 fL [facility]e Platelets (Bld) [#/Vol] 241.0 E9/L Normal 150.0 - 500.0 E9/L [facility]e RBC (Bld) [#/Vol] 4.3 E12/L Normal 4.3 - 5.9 E12/L [facility] WBC corrected for nucl RBC Auto (Bld) [#/Vol] 11.5 E9/L High 4.0 - 11.0 E9/L [facility] Hep Func Panelon 08-27-2023 Albumin [Mass/Vol] 4.0 g/dL Normal 3.3-5.0 [facility] Comment on above: Performed By: #### 2 [id number] #### [facility] [address] [place] [address] Albumin/Globulin (S) [Mass conc ratio] 1.3 Normal 1.1-2.2 [facility] Comment on above: Performed By: #### 2 [id number] #### [facility] [address] [place] [address] ALP [Catalytic activity/Vol] 90 Int._Unit/L Normal 21-98 [facility] Comment on above: Performed By: #### 2 [id number] #### [facility] [address] [place] [address] ALT No additional P-5'-P [Catalytic activity/Vol] 13 Int._Unit/L Normal 6-46 [facility] Comment on above: Performed By: #### 2 [id number] #### [facility] [address] [place] [address] AST [Catalytic activity/Vol] 16 Int._Unit/L Normal 5-43 [facility] Comment on above: Performed By: #### 2 [id number] #### [facility] [address] [place] [address] Bilirubin [Mass/Vol] 0.5 mg/dL Normal 0.0-1.1 [facility] Comment on above: Performed By: #### 2 [id number] #### [facility] [address] [place] [address] Bilirubin.direct [Mass/Vol] 0.1 mg/dL Normal 0.0-0.4 [facility] Comment on above: Performed By: #### 2 [id number] #### [facility] [address] [place] [address] Bilirubin.indirect [Mass or moles/Vol] 0.4 mg/dL Normal 0.1-0.9 [facility] Comment on above: Performed By: #### 2 [id number] #### [facility] [address] [place] [address] Globulin (S) [Mass/Vol] 3.0 g/dL Normal 1.4-4.0 [facility] Comment on above: Performed By: #### 2 [id number] #### [facility] [address] [place] [address] Protein [Mass/Vol] 7.0 g/dL Normal 6.0-7.8 [facility] Comment on above: Performed By: #### 2 [id number] #### [facility] [address] [place] [address] Lipase Levelon 08-27-2023 Lipase [Catalytic activity/Vol] 11 U/L Low 13-58 [facility] Comment on above: Performed By: #### 2 [id number] #### [facility] [address] [place] [address] PT & PTTon 08-27-2023 aPTT Coag (PPP) [Time] 28.5 second(s) Normal 25.1-36.5 [facility] Comment on above: Result Comment: Para meter 15 days - 4 weeks 1 - 5 months 6 - 11 months 1 - 5 years 6 - 10 years 11 - 17 years PTT Mean: 35.4 (27.6-45.6) Mean: 33.5 (24.8-40.7) Mean: 32.4 (25.1-40.7) Mean: 31.6 (24.0-39.2) Mean: 31.6 (26.9-38.7) Mean: 31.0 (24.6-38.4) Pediatric Reference ranges were obtained from a study by Blaine Tolbert et al. prepared from 1437 samples obtained at 7 different centers using the same coagulation reagent and instrumentation as [facility]. Currently there are no coagulation studies available worldwide for children to 14 days, and no normal ranges. Heparin therapeutic range (represented by Anti-Factor Xa activity of 0.2 - 0.4 U/mL) corresponds to PTT of 56.6 - 109.0 sec. Performed By: #### 1 [id number] #### [facility] [address] [place] [address] INR Coag (PPP) [Relative time] 1.07 {INR} Invalid Interpretation Code [facility] Comment on above: Result Comment: INR results are specifically intended to assess patients stabilized on long-term Anticoagulation therapy suggested INR?s ?Less Intensive Anticoagulation? 2.0 ? 3.0 Conventional Range 3.0 ? 4.5 Performed By: #### 1 [id number] #### [facility] [address] [place] [address] PT Coag (PPP) [Time] 12.0 second(s) Normal 9.4-12.5 [facility] Comment on above: Result Comment: 15 d ays - 4 weeks 1 - 5 months 6 -11 months 1 ? 5 years 6 ? 10 years 11 -17 years Mean: 11.2 (9.5 ? 12.6) Mean: 11.0 (9.7 ? 12.8) Mean: 11.0 (9.8 ? 13.0) Mean: 11.3 (9.9 ? 13.4) Mean: 11.7 (10.0 ? 14.6) Mean: 11.8 (10.0 - 14.1) Pediatric Reference ranges were obtained from a study by Blaine Tolbert et al. prepared from 1437 samples obtained at 7 different centers using the same coagulation reagent and instrumentation as [facility]. Currently there are no coagulation studies available worldwide for children to 14 days, and no normal ranges. Performed By: #### 1 [id number] #### [facility] [address] [place] [address] SEROLOGYOrdered By: Tamica Chowdhury on 08-27-2023 Beta HCG ( test) Ql Negative (08/27/23 7:55 PM) Normal [facility] Man Sero Troponin 0 Hr.on 08-27-2023 Troponin HS 2.90 pg/mL Low 10.10-27.[address] [facility] Comment on above: Result Comment: The 95% CI (Confidence Interval) PPV (Positive Predictive Value) for myocardial infarction in females is 38 pg/mL, in males 51 pg/mL. The results should be used in conjunction with clinical conditions of myocardial infarction. (Access High Sensitivity Troponin I Instructions For Use, Sharon [employer], September 2017) Performed By: #### 1 [id number] #### [facility] [address] [place] [address] UA with Cult Rflxon 08-27-19 24 Bilirubin Ql (U) Negative Normal Negative [facility] Comment on above: Performed By: #### 4 [id number] #### [facility] [address] [place] [address] Clarity (U) Turbid Abnormal Clear [facility] Comment on above: Performed By: #### 4 [id number] #### [facility] [address] [place] [address] Color (U) Light-Yellow Normal Yellow [facility] Comment on above: Result Comment: Micr oscopic readings are only performed on those samples that meet specific criteria set forth by [facility]. Performed By: #### 4 [id number] #### [facility] [address] [place] [address] Epithelial cells.squamous Auto (Urine sed) [#/Area] 9-[address] [facility] Comment on above: Performed By: #### 4 [id number] #### [facility] [address] [place] [address] Glucose Ql (U) Negative Normal Negative [facility] Comment on above: Performed By: #### 4 [id number] #### [facility] [address] [place] [address] Hemoglobin Auto test strip (U) [Mass/Vol] 1+ mg/dL Abnormal Negative [facility] Comment on above: Performed By: #### 4 [id number] #### [facility] [address] [place] [address] Ketones Auto test strip Ql (U) Negative Normal Negative [facility] Comment on above: Performed By: #### 4 [id number] #### [facility] [address] [place] [address] Leukocyte esterase Auto test strip Ql (U) Negative Normal Negative [facility] Comment on above: Performed By: #### 4 [id number] #### [facility] [address] [place] [address] Mucus Auto Ql (U) Trace Normal Negative [facility] Comment on above: Performed By: #### 4 [id number] #### [facility] [address] [place] [address] Nitrite Auto test strip Ql (U) Negative Normal Negative [facility] Comment on above: Performed By: #### 4 [id number] #### [facility] [address] [place] [address] pH (U) 5.5 [pH] Invalid Interpretation Code 5.0-9.0 [facility] Comment on above: Performed By: #### 4 [id number] #### [facility] [address] [place] [address] Protein Ql (U) Negative Normal Negative [facility] Comment on above: Performed By: #### 4 [id number] #### [facility] [address] [place] [address] RBC Ql (U) 0-3 Normal 0-3 [facility] Comment on above: Performed By: #### 4 [id number] #### [facility] [address] [place] [address] Specific gravity (U) [Rel density] 1.018 Invalid Interpretation Code 1.005-1.[address] [facility] Comment on above: Performed By: #### 4 [id number] #### [facility] [address] [place] [address] Urobilinogen (U) [Mass/Vol] Negative Normal Negative [facility] Comment on above: Performed By: #### 4 [id number] #### [facility] [address] [place] [address] WBC Auto (Urine sed) [#/Area] 0-5 Normal 0-5 [facility] Comment on above: Performed By: #### 4 [id number] #### [facility] [address] [place] [address] Type of Urine collection method Clean Catch Normal [facility] Comment on above: Performed By: #### 4 [id number] #### [facility] [address] [place] [address] URINALYSISOrdered By: SYSTEM SYSTEM on 08-27-2023 Bilirubin Ql (U) Negative Normal Negativemg /dL [facility] UA Auto SS Clarity (U) Turbid *ABN* (08/27/23 8:52 PM) Invalid Interpretation Code Clear [facility] UA Auto SS Color (U) Light-Yellow 1 (08/27/23 8:52 PM) Normal Yellow [facility] UA Auto SS Comment on above: Interpretive Data: M icroscopic readings are only performed on those samples that meet specific criteria set forth by [facility]. Epithelial cells.squamous Auto (Urine sed) [#/Area] 9-10 graded/HPF Invalid Interpretation Code [facility] UA Auto SS Glucose Ql (U) Negative Normal Negativemg /dL [facility] UA Auto SS Hemoglobin Auto test strip (U) [Mass/Vol] 1+ mg/dL Invalid Interpretation Code Negativemg /dL [facility] UA Auto SS Ketones Auto test strip Ql (U) Negative Normal Negativemg /dL [facility] UA Auto SS Leukocyte esterase Auto test strip Ql (U) Negative Normal NegativeLe u/uL [facility] UA Auto SS Mucus Auto Ql (U) Trace graded/LPF Normal Negati vegr aded/LPF [facility] UA Auto SS Nitrite Auto test strip Ql (U) Negative Normal Negativemg /dL [facility] UA Auto SS pH (U) 5.5 *NA* (08/27/23 8:52 PM) Invalid Interpretation Code 5.0 - 9.0 [facility] UA Auto SS Protein Ql (U) Negative Normal Negativemg /dL [facility] UA Auto SS RBC Ql (U) 0-3 graded/HPF Normal 0-3graded/ HPF [facility] UA Auto SS Specific gravity (U) [Rel density] 1.018 *NA* (08/27/23 8:52 PM) Invalid Interpretation Code 1.005 - 1.030 [facility] UA Auto SS Urobilinogen (U) [Mass/Vol] Negative Normal Negativemg /dL [facility] UA Auto SS WBC Auto (Urine sed) [#/Area] 0-5 graded/HPF Normal 0-5graded/ HPF [facility] UA Auto SS URINALYSISOrdered By: Peter fierro on 08-27-2023 UA Spec Desc Clean Catch (08/27/23 8:52 PM) Normal [facility] UA Auto SS eGFRon 08-27-2023 eGFR 115 mL/min/1.73 m2 Normal >=59 [facility] Comment on above: Order Comment: Order added by Discern Expert. Performed By: #### 1 [id number] #### [facility] [address] [place] [address] ED Clinical Summaryon 2023 ED Clinical Summary ED Clinical Summary [address] [address] ED Clinical Summary Person Information Name: TRACIE SAMUELS [facility]ita/[facility] Age: 33 Years : 1990 Sex: Female Language: Swazi PCP: KATLIN FERNANDEZ DO Marital Status: Single Visit Id: Visit Reason: Vision changes; Flank pain; Headache; HEADACHE, NAUSEA, LEFT SIDE PAIN, DIZZINESS Speciality: Acuity: 3 Enc Type: Emergency Med Service: Emergency Arrival: 08/26/2023 09:11:14 Discharge: 08/26/2023 11:11:01 LOS: 000 02:00 Checkin: 08/26/2023 09:11:14 Checkout: 08/26/2023 11:11:01 Dispo Type: Home (Routine DC) EVENTS: Event Name Event Status Request Date/Time Start Date/Time Complete Date/Time Arrive Complete 08/26/2023 09:11:14 08/26/2023 09:11:14 08/26/2023 09:11:14 Document Home Meds Request 08/26/2023 09:11:14 Triage Complete 08/26/2023 09:11:14 08/26/2023 09:20:16 08/26/2023 09:20:16 Registration Complete 08/26/2023 09:15:19 08/26/2023 09:15:19 08/26/2023 09:15:19 Reg Complete Request 08/26/2023 09:15:19 Reg Bed Request Complete 08/26/2023 09:15:19 08/26/2023 09:15:19 08/26/2023 09:15:19 Bed Assign Complete 08/26/2023 09:15:53 08/26/2023 09:15:53 08/26/2023 09:15:53 Dr Exam Complete 08/26/2023 09:15:53 08/26/2023 09:18:00 08/26/2023 09:18:00 RN Exam Complete 08/26/2023 09:15:53 08/26/2023 10:36:23 08/26/2023 10:36:23 Registration Request 08/26/2023 09:18:00 Dr Exam Complete 08/26/2023 09:18:26 08/26/2023 09:18:26 08/26/2023 09:18:26 Meds Admin Complete 08/26/2023 09:29:15 08/26/2023 09:39:59 Discharge Complete 08/26/2023 11:03:54 08/26/2023 11:11:08 08/26/2023 11:11:08 Transfer Complete 08/26/2023 11:11:08 08/26/2023 11:11:08 08/26/2023 11:11:08 ADDRESS: [address] [place] [address] [address] [facility] [id number] PHYS DOC NOTES: MEDICAL INFORMATION: Prescriptions Given: Medications to Continue with No Changes Other Medications acetaminophen-oxycodone (Percocet 5 mg-325 mg oral tablet) 1 Tablets By Mouth every 6 hours as needed as needed for pain. Refills: 0. acetaminophen-oxycodone (Percocet 5 mg-325 mg oral tablet) 1 Tablets By Mouth every 6 hours. Refills: 0. albuterol (albuterol 0.083% Inh Claire 3 mL UD) 3 Milliliter Inhalation every 6 hours. Refills: 0. albuterol (albuterol 0.083% Inh Claire 3 mL) 3 Milliliter Nebulized inhalation (aerosol) every 6 hours as needed Shortness of breath or wheezing. albuterol (ProAir HFA 90 mcg/inh inhalation aerosol) 2 Puffs Inhalation 4 times a day as needed Shortness of breath or wheezing. dicyclomine (Bentyl 10 mg Cap) 2 Capsules By Mouth 4 times a day. Refills: 0. famotidine (Pepcid 20 mg Tab) 1 Tablets By Mouth 2 times a day. Refills: 0. indomethacin lidocaine topical (lidocaine Top 5% film Patch) 1 Patches Topical every day. apply 12 hours on and 12 hours off daily. Refills: 0. meloxicam (meloxicam 15 mg oral tablet) By Mouth every day. meloxicam (meloxicam 15 mg oral tablet) 1 Tablets By Mouth every day. Refills: 0. metformin (metformin 500 mg oral tablet) 1 Tablets By Mouth As Directed. mupirocin topical (mupirocin Top 2% Oint) 1 Application Topical 3 times a day. Refills: 0. naproxen (Naprosyn 500 mg Tab) 1 Tablets By Mouth 2 times a day as needed for pain. Refills: 0. naproxen (Naprosyn 500 mg Tab) 1 Tablets By Mouth 2 times a day. Refills: 0. naproxen (naproxen 375 mg Tab) 1 Tablets By Mouth every 12 hours. Refills: 0. ondansetron (Zofran ODT 4 mg Tab) 1 Tablets By Mouth every 6 hours as needed Nausea/Vomiting. Refills: 0. ondansetron (Zofran ODT 4 mg Tab) 1 Tablets By Mouth every 6 hours as needed Nausea/Vomiting. Refills: 0. ondansetron (Zofran ODT 4 mg Tab-Dis) 1 Tablets By Mouth 3 times a day. Refills: 0. ondansetron (Zofran ODT 4 mg Tab-Dis) 1 Tablets By Mouth every 8 hours as needed Nausea/Vomiting. Refills: 0. pantoprazole (Pantoprazole [address] Tab) polyethylene glycol 3350 (Miralax 3350 17 gram packet) 17 Gram By Mouth every day. Refills: 0. polyethylene glycol 3350 with electrolytes (polyethylene glycol 3350 with electrolytes Oral Pwdr for Claire 4000 mL (NuLytely)) PER PHYSICIAN INSTRUCTIONS. PRIOR TO COLONOSCOPY.. Refills: 0. promethazine (Phenergan 12.5 mg Supp) 1 Suppositories By rectum every 8 hours as needed as needed for nausea/vomiting. second line. Refills: 0. promethazine (Phenergan 12.5 mg Supp) 1 Suppositories By rectum every 8 hours. Refills: 0. promethazine (promethazine 25 mg Tab) 1 Tablets By Mouth every 6 hours as needed as needed for nausea/vomiting. Refills: 0. promethazine (promethazine 25 mg Tab) 1 Tablets By Mouth every 6 hours as needed as needed for nausea/vomiting. Refills: 0. tramadol (traMADOL 50 mg Tab) 1 Tablets By Mouth every 6 hours as needed Pain. Refills: 0. PATIENT EDUCATION INFORMATION: Instructions: Chronic Migraine Headache Follow up: With: Address: When: KATLIN FERNANDEZ [address] [place], [place] [id number] [employer] (more content not included)... Normal [facility] ED Note-Physicianon 08-26-19 ED Note-Physician ED Note-Physician Basic Information Time Seen: Jax Lassiter PA-C 08/26/2023 09:18 Chief Complaint left side pain. headache blurry vision for 2 days. nausea headache worse with light. hx of migraines History of Present Illness 33-year-old female comes to the ED for evaluation of headache. She is a history of migraines. Over the last few days she had a left-sided headache. Nausea but no vomiting. Does have photophobia. She been taking dcna-sng-cisahik Aleve without relief. No precipitating trauma. She is awake and alert. Headache has been progressive, not of sudden onset. Not the worst headache of her life. No concerns of . No other complaints or concerns. Review of Systems A 10 point review of systems is negative except as noted above. Medical and Surgical History: Reviewed and noted Social history: Lives at home Tobacco: Denies Physical Exam Vitals & Measurements T: 37 ?C(Oral) HR: 95(Peripheral) RR: 18 BP: 156/117 SpO2: 99% HT: 150 cm WT: 95.7 kg BMI: 42.53 Nurses notes and vital signs reviewed and patient is not hypoxic. General: The patient appears well and in no significant distress Patient is resting comfortably on the exam bed. Skin: Warm, dry, no pallor noted. Head: Atraumatic. No temporal tenderness. Neck: No JVD. Full range of motion with no evidence of meningismus. Eye: Normal conjunctiva. Pupils measure 4 mm bilaterally. Equal and briskly reactive. Extraocular motions are intact. No nystagmus. No evidence of papilledema. Ears, Nose, Mouth, and Throat: Moist mucous members. Cardiovascular: Strong distal pulses. Chest wall: Respiratory: Respirations are nonlabored. Back: Normal range of motion. Musculoskeletal: Normal ROM with no gross deformity. Gastrointestinal: Urological: Neurological: Awake and alert. No focal deficits. Follows commands. GCS 15. Psychiatric: Cooperative. Medical Decision Making Patient resents acute on chronic headache. She was medicated here with improvement. No history of trauma. No evidence of meningismus. No altered mentation. Discharged home with PCP follow-up. Patient was encouraged to return to the ED if symptoms worsen or change. Assessment/Plan Migraine headache (G43.909: Migraine, unspecified, not intractable, without status migrainosus) Orders: diphenhydrAMINE, 25 mg = 0.5 mL, Injection, IntraMuscular, Once, Stop date 08/26/23 9:28:00 EDT, STAT, Start date 08/26/23 9:28:00 EDT, 08/26/23 9:28:00 EDT ketorolac, 60 mg = 2 mL, Injection, IntraMuscular, Once, Stop date 08/26/23 9:28:00 EDT, STAT, Start date 08/26/23 9:28:00 EDT, 08/26/23 9:28:00 EDT metoclopramide, 10 mg = 2 mL, Injection, IntraMuscular, Once, Stop date 08/26/23 9:29:00 EDT, STAT, Start date 08/26/23 9:29:00 EDT, 08/26/23 9:29:00 EDT Medications Administered Given diphenhydrAMINE 50 mg/mL Inj, 25 mg, IntraMuscular ketorolac 60 mg/2 mL Injection, 60 mg, IntraMuscular metoclopramide 5 mg/mL Inj, 10 mg, IntraMuscular Disposition Plan Patient Discharge Condition Disposition: Discharged home Condition: Improved and stable Counseled: Patient and/or family were counseled to workup, results, treatment plan and follow-up recommendations Discharge Prescription List Prescriptions No active prescription medications Follow-up With When Contact Information KATLIN FERNANDEZ In 3 days 08/29/[address] [place], [place] [id number] Business (1) Additional Instructions: Patient Education Chronic Migraine Headache Attestation I performed a substantive part of the MDM during the patient?s E/M visit. I personally made or approved the documented management plan and acknowledge its risk of complications. (Independent Interpretation) My (EKG/X-Ray/US/CT) interpretation as above. (Discussion) Management/test interpretation discussed with APC. This report was transcribed using voice recognition software. Every effort was made to ensure accuracy, however, inadvertently computerized visitor services technician mistakes may be present. Appropriate healthcare PPE was used in evaluating this patient. Problem List/Past Medical History Ongoing Abdominal pain Bipolar Chronic gastritis Diabetes mellitus Extreme obesity 28-AUG-2013 12:48:08<$> Loose stools Lower abdominal pain Smoker Vomiting Historical ADHD (attention deficit hyperactivity disorder) Antral ulcer Asthma Kidney stone Seizure Procedure/Surgical History section, Cholecystectomy, EGD (esophagogastroduodenosco py) gastric outlet reduction, Tubal ligation. Medications Inpatient No active inpatient medications Home albuterol 0.083% Inh Claire 3 mL, 2.5 mg= 3 mL, NEB, q6hr, PRN albuterol 0.083% Inh Claire 3 mL UD, 2.5 mg= 3 mL, Inhalation, q6hr Bentyl 10 mg Cap, 20 mg= 2 cap(s), Oral, QID indomethacin lidocaine Top 5% film Patch, 1 patch(es), Topical, Daily meloxicam 15 mg oral tablet, 15 mg= 1 tab(s), Oral, Daily meloxicam 15 mg oral tablet, Oral, Daily metformin 500 mg (more content not included)... Normal [facility] Comment on above: Result Comment: Elec tronically Signed By: Jax Lassiter PA-C\.br\Date and Time Signed: 08/26/23 11:35 EDT\.br\Electronically Co-Signed By: Jass Meek DO\.br\Date and Time Co-Signed: 08/26/23 15:01 EDT ED Patient Summaryon 024 ED Patient Summary ED Patient Summary [place] [id number] Patient Discharge Instructions Person Information Name: TRACIE SAMUELS Age: 33 Years Arrival Date: 08/26/2023 09:11:14 Discharge Diagnosis: Migraine headache Primary Care Physician: KATLIN FERNANDEZ DO Provider Information Primary Provider: Jass Meek DO Advanced Meter Reader Chief:Jax Lassiter PA-C The exam and treatment you received in the Emergency Department were for an urgent problem and are not intended as complete care. It is important that you follow up with a doctor, nurse practitioner, or physician?s drug safety assistant for ongoing care. If your symptoms become worse or you do not improve as expected and you are unable to reach your usual health care provider, you should return to the Emergency Department. We are available 24 hours a day. TRACIE SAMUELS has been given the following list of patient education materials, prescriptions and follow-up instructions: Follow-up Instructions: With: Address: When: KATLIN FERNANDEZ [address] [place] [id number] Business (1) In 3 days 08/29/2023 In the event that this physician does not participate in your insurance network, please consult with your insurance company to find a nearby participating provider. Patient Education Materials: Chronic Migraine Headache A MESSAGE TO ALL PATIENTS REGARDING OPIOIDS PRESCRIPTION OPIOIDS: WHAT YOU NEED TO KNOW Prescription opioids can be used to help relieve fyynatnh-uy-dapnup pain and are often prescribed following a surgery or injury, or for certain health conditions. These medications can be an important part of the treatment but also come with serious risks. It is important to work with your healthcare provider to make sure you are getting the safest, most effective care. WHAT ARE THE RISKS AND SIDE EFFECTS OF OPIOID USE? Prescription opioids carry serious risks of addiction and overdose, especially with prolonged use. An opioid overdose, often marked by slowed breathing, can cause sudden . The use of prescription opioids can have a number of side effects as well, even when taken as directed: ? Tolerance?meaning you might need to take more of the medication for the same pain relief ? Physical dependence?meaning you have symptoms of withdrawal when a medication is stopped ? Increased sensitivity to pain ? Constipation ? Nausea, vomiting, and dry mouth ? Sleepiness and dizziness ? Confusion ? Depression ? Low levels of testosterone that can result in lower sex drive, energy, and strength ? Itching and sweating RISKS ARE GREATER WITH: ? History of drug misuse, substance use disorder, or overdose ? Mental health conditions (such as depression or anxiety) ? Sleep apnea ? Older age (65 years and older) ? Avoid alcohol while taking prescription opioids. Also, unless specifically advised by your health care provider, medications to avoid include: ? Benzodiazepines (such as Xanax or Valium) ? Muscle relaxants (such as Soma or Flexeril) ? Hypnotics (such as Ambien or Lunesta) ? Other prescription opioids KNOW YOUR OPTIONS Talk to your health care provider about ways to manage your pain that don?t involve prescription opioids. Some of these options may actually work better and have fewer risks and side effects. Options may include: ? Pain relievers such as acetaminophen, ibuprofen, and naproxen ? Some medication that are also used for depression or seizures ? Physical therapy and exercise ? Cognitive behavioral therapy, a psychological, goal-directed approach, in which patients learn how to modify physical, behavioral, and emotional triggers of pain and stress. IF YOU ARE PRESCRIBED OPIOIDS FOR PAIN: ? Never take opioids in greater amounts or more often than prescribed. ? Follow up with your primary health care provider. o Work together to create a plan on how to manage your pain. o Talk about ways to help manage your pain that don?t involve prescription opioids. o Talk about any and all concerns and side effects. ? Help prevent misuse and abuse o Never sell or share prescription opioids. o Never use another person?s prescription opioids. ? Store prescription opioids in a secure place and out of reach of others (this may include visitors, children, friends, and family). ? Safely dispose of unused prescription opioids: Find your community drug take-back program or your pharmacy mail-back program, or flush them down the toilet, following guidance from the Food and Drug Administration (www.fda.gov/Drugs/Resour cesForYou). ? Visit www.cdc.gov/drugoverdose to learn about the risks of opioids abuse and overdose. ? If you believe you may be struggling with addiction, tell your health technical healthcare consultant and ask for guidance or call [facility]?S National Helpline at 7-957-336-SGMD. (more content not included)... Normal [facility] Alanine aminotransferase [En zymatic activity/volume] in Serum or PlasmaOrdered By: Kanu Brush on 07-21-2023 ALT [Catalytic activity/Vol] 18 U/L Normal 7-52 [facility] Comment on above: Performed By: #### B MP, LIPASE, CBC, PT, PTT, HEPATIC #### [facility] [address] [place] [address] [place] Albumin [Mass/volume] in Ser um or Plasma by Bromocresol green (BCG) dye binding methoOrdered By: Kanu Brush on 07-21-2023 Albumin BCG dye [Mass/Vol] 3.9 g/dL 3.5-5.7 [facility] Alkaline phosphatase [Enzyma tic activity/volume] in Serum or PlasmaOrdered By: Kanu Brush on 07-21-2023 ALP [Catalytic activity/Vol] 109 U/L High 34-104 [facility] Comment on above: Performed By: #### B MP, LIPASE, CBC, PT, PTT, HEPATIC #### [facility] [address] [place] [id number] [place] Aspartate aminotransferase [ Enzymatic activity/volume] in Serum or PlasmaOrdered By: Kanu Brush on 07-21-2023 AST [Catalytic activity/Vol] 16 U/L Normal 13-39 [facility] Comment on above: Performed By: #### B MP, LIPASE, CBC, PT, PTT, HEPATIC #### [address] Automated basophil %Ordered By: Kanu Brush on 07-21-2023 Basophils/100 WBC (Bld) 0.7 % Normal . [facility] Comment on above: Performed By: #### [facility] #### [address] Automated basophil countOrde red By: Kanu Brush on 07-21-2023 Basophils (Bld) [#/Vol] 0.1 10*3/uL Normal 0.0-0.2 [facility] Comment on above: Result Comment: PERF ORMED BY: [place] [address] PATHOLOGIST GROUNDS FOREMAN JL PERKINS M.D. Performed By: #### A [facility] #### [address] Automated blood monocyte cou ntOrdered By: Kanu Brush on 07-21-2023 Monocytes (Bld) [#/Vol] 0.6 10*3/uL Normal 0.0-0.8 [facility] Comment on above: Performed By: #### A [facility] #### [address] Automated eosinophil %Ordere d By: Kanu Brush on 07-21-2023 Eosinophils/100 WBC (Bld) 2.4 % Normal . [facility] Comment on above: Performed By: #### A [facility] #### [address] Automated eosinophil countOr dered By: Kanu Brush on 07-21-2023 Eosinophils (Bld) [#/Vol] 0.2 10*3/uL Normal 0.0-0.45 [facility] Comment on above: Performed By: #### A [facility] #### [address] Automated epithelial cells c ount in urine sediment (number/area)Ordered By: Kanu Brush on 07-21-2023 Epithelial cells Auto (Urine sed) [#/Area] 1-2 [HPF] 0-2 [facility] Automated monocyte %Ordered By: Kanu Brush on 07-21-2023 Monocytes/100 WBC (Bld) 5.7 % Normal . [facility] Comment on above: Performed By: #### A [facility] #### [address] Automated neutrophil %Ordere d By: Kanu Brush on 07-21-2023 Neutrophils/100 WBC (Bld) 55.4 % Normal . [facility] Comment on above: Performed By: #### A [facility] #### [address] Bacteria [Presence] in Urine by AutomatedOrdered By: Kanu Brush on 07-21-2023 Bacteria Auto Ql (U) None seen [HPF] None Seen [facility] Basic Metabolic Panelon 06-27 Creatinine Clr Calc Pharmacy 89.28 Normal [facility] Comment on above: Performed By: #### B MP, LIPASE, CBC, PT, PTT, HEPATIC #### [address] GFR/1.73 sq M.predicted MDRD (S/P/Bld) [Vol rate/Area] mL/min/{1.73_m2} Normal [facility] Comment on above: Performed By: #### B MP, LIPASE, CBC, PT, PTT, HEPATIC #### [address] Bilirubin Test strip Ql (U)O rdered By: Kanu Brush on 07-21-2023 Bilirubin Ql (U) Negative Negative [facility] Bilirubin.direct [Mass/volum e] in Serum or PlasmaOrdered By: Kanu Brush on 07-21-2023 Bilirubin.direct [Mass/Vol] 0.10 mg/dL 0.03-0.18 [facility] Bilirubin.total [Mass/volume ] in Serum or PlasmaOrdered By: Kanu Bursh on 07-21-2023 Bilirubin [Mass/Vol] 0.3 mg/dL Normal 0.3-1.0 [facility] Comment on above: Performed By: #### B MP, LIPASE, CBC, PT, PTT, HEPATIC #### [facility] [address] Calcium [Mass/volume] in Ser um or PlasmaOrdered By: Kanu Brush on 07-21-2023 Calcium [Mass/Vol] 8.8 mg/dL Normal 8.6-10.[address] [facility] Comment on above: Performed By: #### B MP, LIPASE, CBC, PT, PTT, HEPATIC #### [address] Carbon dioxide, total [Moles /volume] in Serum or PlasmaOrdered By: Kanu Brush on 07-21-2023 CO2 [Moles/Vol] 25.4 mmol/L Normal 21.0-31.0 [facility] Comment on above: Performed By: #### B MP, LIPASE, CBC, PT, PTT, HEPATIC #### [address] Chloride [Moles/volume] in S phoebe or PlasmaOrdered By: Kanu Brush on 07-21-2023 Chloride [Moles/Vol] 107 mmol/L Normal 98-107 [facility] Comment on above: Performed By: #### B MP, LIPASE, CBC, PT, PTT, HEPATIC #### [facility] [address] [place] [address] [place] Color of Urine by AutoOrdere d By: Kanu Brush on 07-21-2023 Color (U) Yellow Normal Yellow [facility] Comment on above: Order Comment: Name Collection Type:: Straight Catheter Performed By: #### A DDONUAPLUS, UHCG #### [facility] [address] [place] [address] [place] Complete Blood Count Auto Di ffon 07-21-2023 Mean Corpuscular HGB Conc 33.8 g/dL Normal 32.0-35.0 [facility] Comment on above: Performed By: #### A JEFF HENRY #### [address] Monocytes/100 WBC (Bld) 19.26 % Normal 0.00-20.00 [facility] Comment on above: Performed By: #### A MARYBEL HENRYG #### [address] NRBC% 0.1 /100{WBC} Normal 0-0.5 [facility] Comment on above: Performed By: #### A JEFF HENRY #### [address] Creatinine [Mass/volume] in Serum or PlasmaOrdered By: Kanu Brush on 07-21-2023 Creatinine [Mass/Vol] 0.89 mg/dL Normal 0.60-1.20 [facility] Comment on above: Performed By: #### B MP, LIPASE, CBC, PT, PTT, HEPATIC #### [place] [address] [place] Dipstick and Microscopicon 0 07-21-2023 Appearance (U) Clear Normal Clear [facility] Comment on above: Order Comment: Name Collection Type:: Straight Catheter Performed By: #### A JEFF HENRY #### [place] [address] [place] Bacteria,Urine None Seen Normal None Seen [facility] Comment on above: Order Comment: Name Collection Type:: Straight Catheter Performed By: #### A MARYBEL HENRYG #### [place] [address] [place] Bilirubin,Urine Negative Normal Negative [facility] Comment on above: Order Comment: Name Collection Type:: Straight Catheter Performed By: #### A JEFF HENRY #### [address] Glucose Ql (U) Normal Normal Normal [facility] Comment on above: Order Comment: Name Collection Type:: Straight Catheter Performed By: #### A DDONUAPLUS, UHCG #### [facility] [address] [place] [id number] [place] Hyaline Casts,Urine 0-8 Normal 0-8 [facility] Comment on above: Order Comment: Name Collection Type:: Straight Catheter Performed By: #### A DDONUAPLUS, UHCG #### [address] Ketones Ql (U) Negative Normal Negative [facility] Comment on above: Order Comment: Name Collection Type:: Straight Catheter Performed By: #### A DDONUAPLUS, UHCG #### [address] Leukocyte esterase Test strip Ql (U) 2+ High Negative [facility] Comment on above: Order Comment: Name Collection Type:: Straight Catheter Performed By: #### A DDONUAPLUS, UHCG #### [place] [address] [place] Nitrite,Urine Negative Normal Negative [facility] Comment on above: Order Comment: Name Collection Type:: Straight Catheter Performed By: #### A DDONUAPLUS, UHCG #### [place] [id number] [place] Occult Blood,Urine Trace High Negative [facility] Comment on above: Order Comment: Name Collection Type:: Straight Catheter Performed By: #### A DDONUAPLUS, UHCG #### [place] [address] [place] Protein,Urine Negative Normal Negative [facility] Comment on above: Order Comment: Name Collection Type:: Straight Catheter Performed By: #### A DDONUAPLUS, UHCG #### [place] [id number] [place] RBC,Urine 5-9 High 0-4 [facility] Comment on above: Order Comment: Name Collection Type:: Straight Catheter Performed By: #### A DDONUAPLUS, UHCG #### [address] Specificy [place],Urine 1.015 Normal 1.001-1.03 0 [facility] Comment on above: Order Comment: Name Collection Type:: Straight Catheter Performed By: #### A DDONUAPLUS, UHCG #### [address] Squamous Epithelial Cell,Urine 1-2 Normal 0-2 [facility] Comment on above: Order Comment: Name Collection Type:: Straight Catheter Performed By: #### A DDONUAPLUS, UHCG #### [address] Urobilinogen,Urine Normal Normal Normal [facility] Comment on above: Order Comment: Name Collection Type:: Straight Catheter Performed By: #### A DDONUAPLUS, UHCG #### [address] WBC,Urine 3-4 Normal 0-4 [facility] Comment on above: Order Comment: Name Collection Type:: Straight Catheter Performed By: #### A DDONUAPLUS, UHCG #### [address] Erythrocyte distribution wid th [Ratio] by Automated countOrdered By: Kanu Brush on 07-21-2023 Erythrocyte distribution width (RBC) [Ratio] 13.3 % Normal 11.9-15.3 [facility] Comment on above: Performed By: #### A DDONUAPLUS, UHCG #### [address] Erythrocytes [#/area] in Uri ne sediment by Automated countOrdered By: Kanu Brush on 07-21-2023 RBC Auto (Urine sed) [#/Area] 5-9 [HPF] High 0-4 [facility] Erythrocytes [#/volume] in B lood by Automated countOrdered By: Kanu Brush on 07-21-2023 RBC (Bld) [#/Vol] 3.99 10*6/uL Normal 3.60-5.00 [facility] Comment on above: Performed By: #### A [facility] #### [address] Glucose [Mass/volume] in Ser um or PlasmaOrdered By: Kanu Brush on 07-21-2023 Glucose [Mass/Vol] 98 mg/dL Normal 70-[address] [facility] Comment on above: ADA recommended refe rence rangeRandom Glucose Reference Range is dependent on time and content of last meal. Glucose of more than 200 mg/dL in a nonstressed, ambulatory subject supports the diagnosis of Diabetes Mellitus. Result Comment: [place] Glucose Reference Range is dependent on time and content of last meal. Glucose of more than 200 mg/dL in a nonstressed, ambulatory subject supports the diagnosis of Diabetes Mellitus. ADA recommended reference range Performed By: #### B MP, LIPASE, CBC, PT, PTT, HEPATIC #### [address] HCG ( test) IA.rapi d Ql (U)Ordered By: Kanu Brush on 07-21-2023 HCG ( test) Ql (U) Negative [facility] HCG,Urineon 07-21-2023 Beta HCG ( test) Ql (U) Negative Normal [facility] Comment on above: Order Comment: Name Collection Type:: Straight Catheter Result Comment: PERF ORMED BY: [place] [address] PATHOLOGIST [employer] JL PERKISN M.D. Performed By: #### A [facility] #### [address] Hematocrit [Volume Fraction] of Blood by Automated countOrdered By: Kanu Brush on 07-21-2023 Hematocrit (Bld) [Volume fraction] 35.5 % Normal 34.0-46.4 [facility] Comment on above: Performed By: #### A [facility] #### [place] [id number] [facility] Hemoglobin [Mass/volume] in BloodOrdered By: Kanu Brush on 07-21-2023 Hemoglobin (Bld) [Mass/Vol] 12.0 g/dL Normal 11.8-15.4 [facility] Comment on above: Performed By: #### A DDONUALEEANN, CG #### [facility] [address] Hepatic Panelon 07-21-2023 Albumin [Mass/Vol] 3.9 g/dL Normal 3.5-5.7 [facility] Comment on above: Performed By: #### B MP, LIPASE, CBC, PT, PTT, HEPATIC #### [facility] [address] Bilirubin,Indirect 0.2 mg/dL Normal [facility] Comment on above: Performed By: #### B MP, LIPASE, CBC, PT, PTT, HEPATIC #### [facility] [address] Bilirubin.indirect [Mass/Vol] 0.10 mg/dL Normal 0.03-0.18 [facility] Comment on above: Performed By: #### B MP, LIPASE, CBC, PT, PTT, HEPATIC #### [facility] [address] Ketones Auto test strip (U) [Mass/Vol]Ordered By: Kanu Brush on 07-21-2023 Ketones (U) [Mass/Vol] Negative Negative [facility] - UrinalysisOrder ed By: Kanu Brush on 07-21-2023 Hyaline casts LM Ql (Urine sed) 0-8 [LPF] 0-8 [facility] Leukocytes [#/area] in Urine sediment by Automated countOrdered By: Kanu Brush on 07-21-2023 WBC Auto (Urine sed) [#/Area] 3-4 [HPF] 0-4 [facility] Leukocytes [#/volume] correc rachelle for nucleated erythrocytes in Blood by Automated counOrdered By: Kanu Brush on 07-21-2023 WBC corrected for nucl RBC Auto (Bld) [#/Vol] 10.2 10*3/uL 3.8-11.6 [facility] Leukocytes [#/volume] in Blo od by Automated countOrdered By: Kanu Brush on 07-21-2023 WBC (Bld) [#/Vol] 10.2 10*3/uL Normal 3.8-11.6 [facility] Comment on above: Performed By: #### A [facility] #### [address] Lipase [Enzymatic activity/v olume] in Serum or PlasmaOrdered By: Kanu Brush on 07-21-2023 Lipase [Catalytic activity/Vol] 20.0 U/L Normal 11.0-82.0 [facility] Comment on above: Result Comment: PERF ORMED BY: [place] [address] PATHOLOGIST [employer] JL PERKINS M.D. Performed By: #### B MP, LIPASE, CBC, PT, PTT, HEPATIC #### [address] Lymphocytes [#/volume] in Bl ood by Automated countOrdered By: Kanu Brush on 07-21-2023 Lymphocytes (Bld) [#/Vol] 3.6 10*3/uL Normal 1.00-4.8 [facility] Comment on above: Performed By: #### A [facility] #### [address] Lymphocytes/100 leukocytes i n Blood by Automated countOrdered By: Kanu Brush on 07-21-2023 Lymphocytes/100 WBC (Bld) 35.8 % Normal . [facility] Comment on above: Performed By: #### A [facility] #### [place] [address] [place] MCH [Entitic mass] by Automa rachelle countOrdered By: Kanu Brush on 07-21-2023 MCH (RBC) [Entitic mass] 30.0 pg Normal 24.7-34.3 [facility] Comment on above: Performed By: #### A [facility] #### [address] MCHC Auto (RBC) [Mass/Vol]Or dered By: Kanu Brush on 07-21-2023 MCHC (RBC) [Mass/Vol] 33.8 g/dL 32.0-35.0 [facility] MCV [Entitic volume] by Auto mated countOrdered By: Kanu Brush on 07-21-2023 MCV (RBC) [Entitic vol] 88.9 fL Normal 80-100 [facility] Comment on above: Performed By: #### A [facility] #### [facility] [address] Monocyte distribution width [Entitic volume] in Blood by AutomatedOrdered By: Kanu Brush on 07-21-2023 Monocyte distribution width Auto (Bld) [Entitic vol] 19.26 % 0.00-20.00 [facility] Neutrophils [#/volume] in Bl ood by Automated countOrdered By: Kanu Brush on 07-21-2023 Neutrophils (Bld) [#/Vol] 5.6 10*3/uL Normal 1.8-7.7 [facility] Comment on above: Performed By: #### A [facility] #### [facility] [address] [place] [address] Nitrite Test strip Ql (U)Ord ered By: Kanu Brush on 07-21-2023 Nitrite Ql (U) Negative Negative [facility] No Panel InformationOrdered By: Kanu Brush on 07-21-2023 Estimated GFR (CKD-EPI) > 60.0 mL/Min [facility] Creatinine Clearance (Chem 89.28 [facility] Nucleated erythrocytes [Pres ence] in Blood by Automated countOrdered By: Kanu Brush on 07-21-2023 Nucleated RBC Auto Ql (Bld) 0.1 /100{WBC} 0-0.5 [facility] Platelet mean volume [Entiti c volume] in Blood by Automated countOrdered By: Knau Brush on 07-21-2023 Platelet mean volume (Bld) [Entitic vol] 7.3 fL Normal 6.3-10.7 [facility] Comment on above: Performed By: #### A [facility] #### [address] Platelets [#/volume] in Bloo d by Automated countOrdered By: Kanu Brush on 07-21-2023 Platelets (Bld) [#/Vol] 262 10*3/uL Normal 150-450 [facility] Comment on above: Performed By: #### A DDONUAPLUS, [facility] #### [address] Potassium [Moles/volume] in Serum or PlasmaOrdered By: Kanu Brush on 07-21-2023 Potassium [Moles/Vol] 3.8 mmol/L Normal 3.5-5.1 [facility] Comment on above: Performed By: #### B MP, LIPASE, CBC, PT, PTT, HEPATIC #### [address] Protein Auto test strip (U) [Mass/Vol]Ordered By: Kanu Brush on 07-21-2023 Protein (U) [Mass/Vol] Negative Negative [facility] Protein [Mass/volume] in Ser um or PlasmaOrdered By: Kanu Brush on 07-21-2023 Protein [Mass/Vol] 7.3 g/dL Normal 6.4-8.[address] [facility] Comment on above: Performed By: #### B MP, LIPASE, CBC, PT, PTT, HEPATIC #### [address] Serum globulin measurement b y calculation (mass/volume)Ordered By: Kanu Brush on 07-21-2023 Globulin (S) [Mass/Vol] 3.4 g/dL Normal [facility] Comment on above: Performed By: #### B MP, LIPASE, CBC, PT, PTT, HEPATIC #### [address] Serum or plasma albumin/glob ulin mass ratioOrdered By: Kanu Brush on 07-21-2023 Albumin/Globulin [Mass ratio] 1.1 {ratio} [facility] Comment on above: Performed By: #### B MP, LIPASE, CBC, PT, PTT, HEPATIC #### [address] Serum or plasma anion gap de terminationOrdered By: Kanu Brush on 07-21-2023 Anion gap [Moles/Vol] 9.4 mmol/L Normal 6.0-15.0 [facility] Comment on above: Performed By: #### B MP, LIPASE, CBC, PT, PTT, HEPATIC #### [facility] [address] [place] [address] Serum or plasma non-glucuron idated bilirubin measurement (mass/volume)Ordered By: Kanu Brush on 07-21-2023 Bilirubin.indirect [Mass/Vol] 0.2 mg/dL [facility] Sodium [Moles/volume] in Ser um or PlasmaOrdered By: Kanu Brush on 07-21-2023 Sodium [Moles/Vol] 138 mmol/L Normal 136-[address] [facility] Comment on above: Performed By: #### B MP, LIPASE, CBC, PT, PTT, HEPATIC #### [address] Specific gravity Auto test s trip (U) [Rel density]Ordered By: Kanu Brush on 07-21-2023 Specific gravity (U) [Rel density] 1.015 1.001-1.03 0 [facility] Urea nitrogen [Mass/volume] in Serum or PlasmaOrdered By: Kanu Brush on 07-21-2023 Urea nitrogen [Mass/Vol] 11 mg/dL Normal 7-25 [facility] Comment on above: Performed By: #### B MP, LIPASE, CBC, PT, PTT, HEPATIC #### [address] Urine clarity by refractomet ry automatedOrdered By: Kanu Brush on 07-21-2023 Clarity Refractometry automated (U) Clear Clear [facility] Urine glucose measurement by automated test strip (mass/volume)Ordered By: Kanu Brush on 07-21-2023 Glucose Auto test strip (U) [Mass/Vol] Normal mg/dL Normal [facility] Urine hemoglobin detection b y automated test stripOrdered By: Kanu Brush on 07-21-2023 Hemoglobin Auto test strip Ql (U) Trace High Negative [facility] Urine leukocyte esterase det ection by automated test stripOrdered By: Kanu Brush on 07-21-2023 Leukocyte esterase Auto test strip Ql (U) 2+ High Negative [facility] Urine pH measurement by auto mated test stripOrdered By: Kanu Brush on 07-21-2023 pH (U) 6.5 [pH] Normal 5.0-9.0 [facility] Comment on above: Order Comment: Name Collection Type:: Straight Catheter Performed By: #### A DDONUAPLUS, [facility] #### [address] Urobilinogen Auto test strip (U) [Mass/Vol]Ordered By: Kanu Brush on 07-21-2023 Urobilinogen (U) [Mass/Vol] Normal mg/dL Normal [facility] XR acute abdomen serieson XR acute abdomen series [facility] Main [place] [address] [place] [address] XRay Report Signed Patient: Tracie Samuels MR#: [id number] 640 : 1990 Acct:[id number] Age/Sex: 33 / F ADM Date: 07/21/23 Loc: ER Room: Type: [facility] ER Attending Dr: Copies to: Kanu Brush MD Ordering Provider: Kanu Brush MD Date of Service: 07/21/23 XR/XR acute abdomen series: Abdominal Pain ACUTE ABDOMEN SERIES WITH PA CHEST: CLINICAL HISTORY: Abdominal pain for several weeks on the left. Vomiting today. COMPARISON: CT 07/14/2023 The chest film shows no acute cardiopulmonary findings. Supine and upright views of the abdomen and pelvis show air within both small and large bowel. There are no disproportionately dilated loops. There is mild to moderate colonic stool, greater on the right. No free air or significant air-fluid levels are seen. There are no suspect radiopaque renal calculi. No soft tissue masses are identified. The osseous structures are intact. XR/XR acute abdomen series IMPRESSION: NONSPECIFIC BOWEL GAS PATTERN. Impression dictated by: Taylor Wiley M.D.07/21/2023 5:13 PM Dictation Location: [place] [address] Transcribed By: OCTAVIANO 07/21/231712 Dictated By: Taylor Wiley MD 07/21/231710 Signed By: 07/21/23 171 Normal [facility] Alanine aminotransferase [En zymatic activity/volume] in Serum or PlasmaOrdered By: Roya German on 07-14-2023 ALT [Catalytic activity/Vol] 17 U/L Normal 7-52 [facility] Comment on above: Performed By: #### B MP, LIPASE, CBC, PT, PTT, HEPATIC #### [facility] [address] Albumin [Mass/volume] in Ser um or Plasma by Bromocresol green (BCG) dye binding methoOrdered By: Roya German on 07-14-2023 Albumin BCG dye [Mass/Vol] 3.9 g/dL 3.5-5.7 [facility] Alkaline phosphatase [Enzyma tic activity/volume] in Serum or PlasmaOrdered By: Roya German on 07-14-2023 ALP [Catalytic activity/Vol] 98 U/L Normal 34-104 [facility] Comment on above: Performed By: #### B MP, LIPASE, CBC, PT, PTT, HEPATIC #### [address] Aspartate aminotransferase [ Enzymatic activity/volume] in Serum or PlasmaOrdered By: Roya German on 07-14-2023 AST [Catalytic activity/Vol] 13 U/L Normal 13-39 [facility] Comment on above: Performed By: #### B MP, LIPASE, CBC, PT, PTT, HEPATIC #### [address] Automated basophil %Ordered By: Roya German on 07-14-2023 Basophils/100 WBC (Bld) 0.6 % Normal . [facility] Comment on above: Performed By: #### B MP, LIPASE, CBC, PT, PTT, HEPATIC #### [address] Automated basophil countOrde red By: Roya German on 07-14-2023 Basophils (Bld) [#/Vol] 0.1 10*3/uL Normal 0.0-0.2 [facility] Comment on above: Result Comment: PERF ORMED BY: [place] [address] PATHOLOGIST [employer] JL PERKINS M.D. Performed By: #### B MP, LIPASE, CBC, PT, PTT, HEPATIC #### [address] Automated blood monocyte cou ntOrdered By: Roya German on 07-14-2023 Monocytes (Bld) [#/Vol] 0.7 10*3/uL Normal 0.0-0.8 [facility] Comment on above: Performed By: #### B MP, LIPASE, CBC, PT, PTT, HEPATIC #### [address] Automated eosinophil %Ordere d By: Roya German on 07-14-2023 Eosinophils/100 WBC (Bld) 2.0 % Normal . [facility] Comment on above: Performed By: #### B MP, LIPASE, CBC, PT, PTT, HEPATIC #### [address] Automated eosinophil countOr dered By: Roya German on 07-14-2023 Eosinophils (Bld) [#/Vol] 0.2 10*3/uL Normal 0.0-0.45 [facility] Comment on above: Performed By: #### B MP, LIPASE, CBC, PT, PTT, HEPATIC #### [address] Automated monocyte %Ordered By: Roya German on 07-14-2023 Monocytes/100 WBC (Bld) 7.9 % Normal . [facility] Comment on above: Performed By: #### B MP, LIPASE, CBC, PT, PTT, HEPATIC #### [address] Automated neutrophil %Ordere d By: Roya German on 07-14-2023 Neutrophils/100 WBC (Bld) 53.6 % Normal . [facility] Comment on above: Performed By: #### B MP, LIPASE, CBC, PT, PTT, HEPATIC #### [address] [place] [address] [place] Basic Metabolic Panelon 06-26 Creatinine Clr Calc Pharmacy 115.34 Normal [facility] Comment on above: Performed By: #### B MP, LIPASE, CBC, PT, PTT, HEPATIC #### [address] GFR/1.73 sq M.predicted MDRD (S/P/Bld) [Vol rate/Area] mL/min/{1.73_m2} Normal [facility] Comment on above: Performed By: #### B MP, LIPASE, CBC, PT, PTT, HEPATIC #### [address] Bilirubin Test strip Ql (U)O rdered By: Roya German on 07-14-2023 Bilirubin Ql (U) Negative Negative [facility] Bilirubin.direct [Mass/volum e] in Serum or PlasmaOrdered By: Roya German on 07-14-2023 Bilirubin.direct [Mass/Vol] 0.10 mg/dL 0.03-0.18 [facility] Bilirubin.total [Mass/volume ] in Serum or PlasmaOrdered By: Roya German on 07-14-2023 Bilirubin [Mass/Vol] 0.4 mg/dL Normal 0.3-1.0 [facility] Comment on above: Performed By: #### B MP, LIPASE, CBC, PT, PTT, HEPATIC #### [address] abdomen pelvis w conon CT abdomen pelvis w con [place] [address] CT Scan Report Signed Patient: Tracie Samuels MR#: [id number] 640 : 1990 Acct:[id number] Age/Sex: 33 / F ADM Date: 07/14/23 Loc: ER Room: Type: [facility] ER Attending Dr: Copies to: Roya German MD Ordering Provider: Roya German MD Date of Service: 07/14/23 CT/CT abdomen pelvis w con: Abdominal Pain CT ABDOMEN AND PELVIS WITH INTRAVENOUS CONTRAST: CLINICAL HISTORY: Abdominal pain. COMPARISON: CT abdomen and pelvis 06/13/2023 TECHNIQUE: Spiral images were obtained through the abdomen and pelvis following the administration of intravenous contrast. This CT exam was performed using one or more following dose reduction techniques: Automated exposure control, adjustment of the mA and/or kV according to patient size, or use of iterative reconstruction technique. FINDINGS: Lung Bases: [No acute findings.] Organs:Liver gallbladder pancreas spleen and adrenal glands appear unremarkable. Punctate stone left kidney. Right kidney appears unremarkable. Abdominal aorta appears normal in caliber.[ GI: Stomach is grossly unremarkable. Small bowel appears nondilated. Appendix is normal. No acute colonic abnormality.[ Pelvis:[Urinary bladder is grossly unremarkable. Uterus is grossly unremarkable. No adnexal mass.] Peritoneum/Retroperitoneu m:Trace free fluid seen within the pelvis. No free air. No lymphadenopathy.[ Abd wall/Bones:Abdominal wall demonstrates no acute findings. Osseous structures demonstrate degenerative change.[ CT/CT abdomen pelvis w con IMPRESSION: No acute findings. Left nephrolithiasis. Impression dictated by: Dale Huerta Jr., D.OCheryl07/14/2023 5:40 PM Dictation Location: [place] [address] Transcribed By: [facility] 07/14/23 174 Dictated By: Dale Huerta Jr, DO 07/14/23 1737 Signed By: 07/14/23 174 Normal [facility] Calcium [Mass/volume] in Ser um or PlasmaOrdered By: Roya German on 07-14-2023 Calcium [Mass/Vol] 8.9 mg/dL Normal 8.6-10.[address] [facility] Comment on above: Performed By: #### B MP, LIPASE, CBC, PT, PTT, HEPATIC #### [facility] [address] [place] [address] [place] Carbon dioxide, total [Moles /volume] in Serum or PlasmaOrdered By: Roya German on 07-14-2023 CO2 [Moles/Vol] 23.7 mmol/L Normal 21.0-31.0 [facility] Comment on above: Performed By: #### B MP, LIPASE, CBC, PT, PTT, HEPATIC #### [facility] [address] [place] [address] [place] Chloride [Moles/volume] in S phoebe or PlasmaOrdered By: Roya German on 07-14-2023 Chloride [Moles/Vol] 109 mmol/L High 98-107 [facility] Comment on above: Performed By: #### B MP, LIPASE, CBC, PT, PTT, HEPATIC #### [address] Color of Urine by AutoOrdere d By: Roya German on 07-14-2023 Color (U) Yellow Normal Yellow [facility] Comment on above: Order Comment: Name Collection Type:: Clean-Voided Midstream Performed By: #### B MP, LIPASE, CBC, PT, PTT, HEPATIC #### [address] Complete Blood Count Auto Di ffon 07-14-2023 Mean Corpuscular HGB Conc 33.6 g/dL Normal 32.0-35.0 [facility] Comment on above: Performed By: #### B MP, LIPASE, CBC, PT, PTT, HEPATIC #### [address] Monocytes/100 WBC (Bld) 19.10 % Normal 0.00-20.00 [facility] Comment on above: Performed By: #### B MP, LIPASE, CBC, PT, PTT, HEPATIC #### [address] NRBC% 0.0 /100{WBC} Normal 0-0.5 [facility] Comment on above: Performed By: #### B MP, LIPASE, CBC, PT, PTT, HEPATIC #### [address] Creatinine [Mass/volume] in Serum or PlasmaOrdered By: Roya German on 07-14-2023 Creatinine [Mass/Vol] 0.69 mg/dL Normal 0.60-1.20 [facility] Comment on above: Performed By: #### B MP, LIPASE, CBC, PT, PTT, HEPATIC #### [address] Erythrocyte distribution wid th [Ratio] by Automated countOrdered By: Roya German on 07-14-2023 Erythrocyte distribution width (RBC) [Ratio] 13.4 % Normal 11.9-15.3 [facility] Comment on above: Performed By: #### B MP, LIPASE, CBC, PT, PTT, HEPATIC #### [facility] [address] Erythrocytes [#/volume] in B lood by Automated countOrdered By: Roya German on 07-14-2023 RBC (Bld) [#/Vol] 4.10 10*6/uL Normal 3.60-5.00 [facility] Comment on above: Performed By: #### B MP, LIPASE, CBC, PT, PTT, HEPATIC #### [facility] [address] Glucose [Mass/volume] in Ser um or PlasmaOrdered By: Roya German on 07-14-2023 Glucose [Mass/Vol] 99 mg/dL Normal 70-[address] [facility] Comment on above: ADA recommended refe rence rangeRandom Glucose Reference Range is dependent on time and content of last meal. Glucose of more than 200 mg/dL in a nonstressed, ambulatory subject supports the diagnosis of Diabetes Mellitus. Result Comment: [place] om Glucose Reference Range is dependent on time and content of last meal. Glucose of more than 200 mg/dL in a nonstressed, ambulatory subject supports the diagnosis of Diabetes Mellitus. ADA recommended reference range Performed By: #### B MP, LIPASE, CBC, PT, PTT, HEPATIC #### [facility] [address] HCG ( test) IA.rapi d Ql (U)Ordered By: Roya German on 07-14-2023 HCG ( test) Ql (U) Negative [facility] HCG,Urineon 07-14-2023 Beta HCG ( test) Ql (U) Negative Normal [facility] Comment on above: Order Comment: Name Collection Type:: Clean-Voided Midstream Result Comment: PERF ORMED BY: [place] [address] PATHOLOGIST [employer] JIANLAN SUN M.D. Performed By: #### B MP, LIPASE, CBC, PT, PTT, HEPATIC #### [address] Hematocrit [Volume Fraction] of Blood by Automated countOrdered By: Roya German on 07-14-2023 Hematocrit (Bld) [Volume fraction] 36.1 % Normal 34.0-46.4 [facility] Comment on above: Performed By: #### B MP, LIPASE, CBC, PT, PTT, HEPATIC #### [address] Hemoglobin [Mass/volume] in BloodOrdered By: Roya German on 07-14-2023 Hemoglobin (Bld) [Mass/Vol] 12.1 g/dL Normal 11.8-15.4 [facility] Comment on above: Performed By: #### B MP, LIPASE, CBC, PT, PTT, HEPATIC #### [address] Hepatic Panelon 07-14-2023 Albumin [Mass/Vol] 3.9 g/dL Normal 3.5-5.7 [facility] Comment on above: Performed By: #### B MP, LIPASE, CBC, PT, PTT, HEPATIC #### [address] Bilirubin,Indirect 0.3 mg/dL Normal [facility] Comment on above: Performed By: #### B MP, LIPASE, CBC, PT, PTT, HEPATIC #### [address] Bilirubin.indirect [Mass/Vol] 0.10 mg/dL Normal 0.03-0.18 [facility] Comment on above: Performed By: #### B MP, LIPASE, CBC, PT, PTT, HEPATIC #### [address] Ketones Auto test strip (U) [Mass/Vol]Ordered By: Roya German on 07-14-2023 Ketones (U) [Mass/Vol] Negative Negative [facility] Leukocytes [#/volume] correc rachelle for nucleated erythrocytes in Blood by Automated counOrdered By: Roya German on 07-14-2023 WBC corrected for nucl RBC Auto (Bld) [#/Vol] 8.8 10*3/uL 3.8-11.6 [facility] Leukocytes [#/volume] in Blo od by Automated countOrdered By: Roya German on 07-14-2023 WBC (Bld) [#/Vol] 8.8 10*3/uL Normal 3.8-11.[address] [facility] Comment on above: Performed By: #### B MP, LIPASE, CBC, PT, PTT, HEPATIC #### [address] Lipase [Enzymatic activity/v olume] in Serum or PlasmaOrdered By: Roya German on 07-14-2023 Lipase [Catalytic activity/Vol] 20.0 U/L Normal 11.0-82.0 [facility] Comment on above: Result Comment: PERF ORMED BY: [place] [address] PATHOLOGIST [employer] JL PERKINS M.D. Performed By: #### B MP, LIPASE, CBC, PT, PTT, HEPATIC #### [place] [address] [place] Lymphocytes [#/volume] in Bl ood by Automated countOrdered By: Roya German on 07-14-2023 Lymphocytes (Bld) [#/Vol] 3.2 10*3/uL Normal 1.00-4.8 [facility] Comment on above: Performed By: #### B MP, LIPASE, CBC, PT, PTT, HEPATIC #### [place] [address] [place] Lymphocytes/100 leukocytes i n Blood by Automated countOrdered By: Roya German on 07-14-2023 Lymphocytes/100 WBC (Bld) 35.9 % Normal . [facility] Comment on above: Performed By: #### B MP, LIPASE, CBC, PT, PTT, HEPATIC #### [place] [address] [place] MCH [Entitic mass] by Automa rachelle countOrdered By: Roya German on 07-14-2023 MCH (RBC) [Entitic mass] 29.7 pg Normal 24.7-34.3 [facility] Comment on above: Performed By: #### B MP, LIPASE, CBC, PT, PTT, HEPATIC #### [facility] [address] [place] [address] MCHC Auto (RBC) [Mass/Vol]Or dered By: Roya German on 07-14-2023 MCHC (RBC) [Mass/Vol] 33.6 g/dL 32.0-35.0 [facility] MCV [Entitic volume] by Auto mated countOrdered By: Roya German on 07-14-2023 MCV (RBC) [Entitic vol] 88.2 fL Normal 80-100 [facility] Comment on above: Performed By: #### B MP, LIPASE, CBC, PT, PTT, HEPATIC #### [facility] [address] [place] [address] Monocyte distribution width [Entitic volume] in Blood by AutomatedOrdered By: Roya German on 07-14-2023 Monocyte distribution width Auto (Bld) [Entitic vol] 19.10 % 0.00-20.00 [facility] Neutrophils [#/volume] in Bl ood by Automated countOrdered By: Roya German on 07-14-2023 Neutrophils (Bld) [#/Vol] 4.7 10*3/uL Normal 1.8-7.7 [facility] Comment on above: Performed By: #### B MP, LIPASE, CBC, PT, PTT, HEPATIC #### [facility] [address] [place] [address] Nitrite Test strip Ql (U)Ord ered By: Roya German on 07-14-2023 Nitrite Ql (U) Negative Negative [facility] No Panel InformationOrdered By: Roya German on 07-14-2023 Estimated GFR (CKD-EPI) > 60.0 mL/Min [facility] Creatinine Clearance (Chem 115.34 [facility] Nucleated erythrocytes [Pres ence] in Blood by Automated countOrdered By: Roya German on 07-14-2023 Nucleated RBC Auto Ql (Bld) 0.0 /100{WBC} 0-0.5 [facility] Platelet mean volume [Entiti c volume] in Blood by Automated countOrdered By: Roya German on 07-14-2023 Platelet mean volume (Bld) [Entitic vol] 7.2 fL Normal 6.3-10.7 [facility] Comment on above: Performed By: #### B MP, LIPASE, CBC, PT, PTT, HEPATIC #### [facility] [address] Platelets [#/volume] in Bloo d by Automated countOrdered By: Roya German on 07-14-2023 Platelets (Bld) [#/Vol] 231 10*3/uL Normal 150-450 [facility] Comment on above: Performed By: #### B MP, LIPASE, CBC, PT, PTT, HEPATIC #### [address] Potassium [Moles/volume] in Serum or PlasmaOrdered By: Roya German on 07-14-2023 Potassium [Moles/Vol] 3.9 mmol/L Normal 3.5-5.1 [facility] Comment on above: Performed By: #### B MP, LIPASE, CBC, PT, PTT, HEPATIC #### [address] Protein Auto test strip (U) [Mass/Vol]Ordered By: Roya German on 07-14-2023 Protein (U) [Mass/Vol] Negative Negative [facility] Protein [Mass/volume] in Ser um or PlasmaOrdered By: Roya German on 07-14-2023 Protein [Mass/Vol] 7.1 g/dL Normal 6.4-8.[address] [facility] Comment on above: Performed By: #### B MP, LIPASE, CBC, PT, PTT, HEPATIC #### [address] Serum globulin measurement b y calculation (mass/volume)Ordered By: Roya German on 07-14-2023 Globulin (S) [Mass/Vol] 3.2 g/dL Normal [facility] Comment on above: Performed By: #### B MP, LIPASE, CBC, PT, PTT, HEPATIC #### [address] Serum or plasma albumin/glob ulin mass ratioOrdered By: Roya German on 07-14-2023 Albumin/Globulin [Mass ratio] 1.2 {ratio} Normal [facility] Comment on above: Performed By: #### B MP, LIPASE, CBC, PT, PTT, HEPATIC #### [address] Serum or plasma anion gap de terminationOrdered By: Roya German on 07-14-2023 Anion gap [Moles/Vol] 8.2 mmol/L Normal 6.0-15.0 [facility] Comment on above: Performed By: #### B MP, LIPASE, CBC, PT, PTT, HEPATIC #### [address] Serum or plasma non-glucuron idated bilirubin measurement (mass/volume)Ordered By: Roya German on 07-14-2023 Bilirubin.indirect [Mass/Vol] 0.3 mg/dL [facility] Sodium [Moles/volume] in Ser um or PlasmaOrdered By: Roya German on 07-14-2023 Sodium [Moles/Vol] 137 mmol/L Normal 136-[address] [facility] Comment on above: Performed By: #### B MP, LIPASE, CBC, PT, PTT, HEPATIC #### [address] Specific gravity Auto test s trip (U) [Rel density]Ordered By: Roya German on 07-14-2023 Specific gravity (U) [Rel density] 1.023 1.001-1.03 0 [facility] Urea nitrogen [Mass/volume] in Serum or PlasmaOrdered By: Roya German on 07-14-2023 Urea nitrogen [Mass/Vol] 10 mg/dL Normal 7-25 [facility] Comment on above: Performed By: #### B MP, LIPASE, CBC, PT, PTT, HEPATIC #### [address] Urinalysison 07-14-2023 Appearance (U) Clear Normal Clear [facility] Comment on above: Order Comment: Name Collection Type:: Clean-Voided Midstream Performed By: #### B MP, LIPASE, CBC, PT, PTT, HEPATIC #### [facility] [address] [place] [address] [place] Bilirubin,Urine Negative Normal Negative [facility] Comment on above: Order Comment: Name Collection Type:: Clean-Voided Midstream Performed By: #### B MP, LIPASE, CBC, PT, PTT, HEPATIC #### [facility] [address] [place] [address] [place] Glucose Ql (U) Normal Normal Normal [facility] Comment on above: Order Comment: Name Collection Type:: Clean-Voided Midstream Performed By: #### B MP, LIPASE, CBC, PT, PTT, HEPATIC #### [facility] [address] [place] [address] [place] Ketones Ql (U) Negative Normal Negative [facility] Comment on above: Order Comment: Name Collection Type:: Clean-Voided Midstream Performed By: #### B MP, LIPASE, CBC, PT, PTT, HEPATIC #### [facility] [address] [place] [address] [place] Leukocyte esterase Test strip Ql (U) Negative Normal Negative [facility] Comment on above: Order Comment: Name Collection Type:: Clean-Voided Midstream Performed By: #### B MP, LIPASE, CBC, PT, PTT, HEPATIC #### [facility] [address] [place] [id number] [place] Nitrite,Urine Negative Normal Negative [facility] Comment on above: Order Comment: Name Collection Type:: Clean-Voided Midstream Performed By: #### B MP, LIPASE, CBC, PT, PTT, HEPATIC #### [facility] [address] [place] [id number] [place] Occult Blood,Urine Negative Normal Negative [facility] Comment on above: Order Comment: Name Collection Type:: Clean-Voided Midstream Performed By: #### B MP, LIPASE, CBC, PT, PTT, HEPATIC #### [facility] [address] [place] [id number] [place] Protein,Urine Negative Normal Negative [facility] Comment on above: Order Comment: Name Collection Type:: Clean-Voided Midstream Performed By: #### B MP, LIPASE, CBC, PT, PTT, HEPATIC #### [address] Specificy [place],Urine 1.023 Normal 1.001-1.03 0 [facility] Comment on above: Order Comment: Name Collection Type:: Clean-Voided Midstream Performed By: #### B MP, LIPASE, CBC, PT, PTT, HEPATIC #### [facility] [address] Urobilinogen,Urine Normal Normal Normal [facility] Comment on above: Order Comment: Name Collection Type:: Clean-Voided Midstream Performed By: #### B MP, LIPASE, CBC, PT, PTT, HEPATIC #### [address] Urine clarity by refractomet ry automatedOrdered By: Roya German on 07-14-2023 Clarity Refractometry automated (U) Clear Clear [facility] Urine glucose measurement by automated test strip (mass/volume)Ordered By: Roya German on 07-14-2023 Glucose Auto test strip (U) [Mass/Vol] Normal mg/dL Normal [facility] Urine hemoglobin detection b y automated test stripOrdered By: Roya German on 07-14-2023 Hemoglobin Auto test strip Ql (U) Negative Negative [facility] Urine leukocyte esterase det ection by automated test stripOrdered By: Roya German on 07-14-2023 Leukocyte esterase Auto test strip Ql (U) Negative Negative [facility] Urine pH measurement by auto mated test stripOrdered By: Roya German on 07-14-2023 pH (U) 7.0 [pH] Normal 5.0-9.0 [facility] Comment on above: Order Comment: Name Collection Type:: Clean-Voided Midstream Performed By: #### B MP, LIPASE, CBC, PT, PTT, HEPATIC #### [address] Urobilinogen Auto test strip (U) [Mass/Vol]Ordered By: Roya German on 07-14-2023 Urobilinogen (U) [Mass/Vol] Normal mg/dL Normal [facility] Alanine aminotransferase [En zymatic activity/volume] in Serum or PlasmaOrdered By: Jason Benton on 07-06-2023 ALT [Catalytic activity/Vol] 27 U/L Normal 7-52 [facility] Comment on above: Performed By: #### B MP, LIPASE, CBC, PT, PTT, HEPATIC #### [facility] [address] Albumin [Mass/volume] in Ser um or Plasma by Bromocresol green (BCG) dye binding methoOrdered By: Jason Benton on 07-06-2023 Albumin BCG dye [Mass/Vol] 4.1 g/dL 3.5-5.7 [facility] Alkaline phosphatase [Enzyma tic activity/volume] in Serum or PlasmaOrdered By: Jason Benton on 07-06-2023 ALP [Catalytic activity/Vol] 113 U/L High 34-104 [facility] Comment on above: Performed By: #### B MP, LIPASE, CBC, PT, PTT, HEPATIC #### [facility] [address] Aspartate aminotransferase [ Enzymatic activity/volume] in Serum or PlasmaOrdered By: Jason Benton on 07-06-2023 AST [Catalytic activity/Vol] 17 U/L Normal 13-39 [facility] Comment on above: Performed By: #### B MP, LIPASE, CBC, PT, PTT, HEPATIC #### [facility] [address] [place] [address] Automated basophil %Ordered By: Jason Benton on 07-06-2023 Basophils/100 WBC (Bld) 0.7 % Normal . [facility] Comment on above: Performed By: #### B MP, LIPASE, CBC, PT, PTT, HEPATIC #### [facility] [address] [place] [address] Automated basophil countOrde red By: Jason Benton on 07-06-2023 Basophils (Bld) [#/Vol] 0.1 10*3/uL Normal 0.0-0.2 [facility] Comment on above: Result Comment: PERF ORMED BY: [place] [address] PATHOLOGIST [employer] JL PERKINS M.D. Performed By: #### B MP, LIPASE, CBC, PT, PTT, HEPATIC #### [address] Automated blood monocyte cou ntOrdered By: Jason Benton on 07-06-2023 Monocytes (Bld) [#/Vol] 0.6 10*3/uL Normal 0.0-0.8 [facility] Comment on above: Performed By: #### B MP, LIPASE, CBC, PT, PTT, HEPATIC #### [address] Automated eosinophil %Ordere d By: Jason Benton on 07-06-2023 Eosinophils/100 WBC (Bld) 2.7 % Normal . [facility] Comment on above: Performed By: #### B MP, LIPASE, CBC, PT, PTT, HEPATIC #### [address] Automated eosinophil countOr dered By: Jason Benton on 07-06-2023 Eosinophils (Bld) [#/Vol] 0.3 10*3/uL Normal 0.0-0.45 [facility] Comment on above: Performed By: #### B MP, LIPASE, CBC, PT, PTT, HEPATIC #### [address] Automated monocyte %Ordered By: Jason Benton on 07-06-2023 Monocytes/100 WBC (Bld) 4.8 % Normal . [facility] Comment on above: Performed By: #### B MP, LIPASE, CBC, PT, PTT, HEPATIC #### [address] Automated neutrophil %Ordere d By: Jason Benton on 07-06-2023 Neutrophils/100 WBC (Bld) 75.2 % Normal . [facility] Comment on above: Performed By: #### B MP, LIPASE, CBC, PT, PTT, HEPATIC #### [address] Bilirubin.total [Mass/volume ] in Serum or PlasmaOrdered By: Jason Benton on 07-06-2023 Bilirubin [Mass/Vol] 0.3 mg/dL Normal 0.3-1.0 [facility] Comment on above: Performed By: #### B MP, LIPASE, CBC, PT, PTT, HEPATIC #### [facility] [address] head/brain wo conon 07-05 CT head/brain wo con [facility] [place] [address] [place] [address] CT Scan Report Signed Patient: Tracie Samuels MR#: [id number] : 1990 Acct:[id number] Age/Sex: 33 / F ADM Date: 07/06/23 Loc: ER Room: Type: [facility] ER Attending Dr: Copies to: Jason Benton DO Ordering Provider: Jason Benton DO Date of Service: 07/06/23 CT/CT head/brain wo con: head inj, nv Unenhanced head CT TECHNIQUE: Contiguous axial imaging of the head. The CT exam was performed using one or more the following dose reduction techniques: Automated exposure control, adjustment of the MA and/or Kv according to patient size, or use of the iterative reconstruction technique. COMPARISON: None HISTORY: Vomiting for 3 days. FL. VENTRICLES: Within normal limits ATROPHY: None BRAIN PARENCHYMA: Adequate jiménez-white matter differentiation identified. HEMORRHAGE: None HERNIATION: No mass effect or herniation INFARCTION: No recent vascular distribution infarction is seen. EXTRA-AXIAL FLUID COLLECTIONS None MIDBRAIN: Unremarkable JANELLE: Unremarkable MEDULLA: Unremarkable SINUSES: Unremarkable ORBITS: Grossly unremarkable MASTOIDS: Unremarkable BONY STRUCTURES Intact ADDITIONAL FINDINGS: CT/CT head/brain wo con IMPRESSION: No acute findings. Impression dictated by: Quique Lai M.D.07/06/2023 8:06 AM Dictation Location: [place] [address] Transcribed By: [facility] 07/06/23805 Dictated By: Quique Lai DO 07/06/23 08 Signed By: 07/06/23 08 Normal [facility] Calcium [Mass/volume] in Ser um or PlasmaOrdered By: Jason Benton on 07-06-2023 Calcium [Mass/Vol] 8.8 mg/dL Normal 8.6-10.[address] [facility] Comment on above: Performed By: #### B MP, LIPASE, CBC, PT, PTT, HEPATIC #### [address] Carbon dioxide, total [Moles /volume] in Serum or PlasmaOrdered By: Jason Benton on 07-06-2023 CO2 [Moles/Vol] 25.2 mmol/L Normal 21.0-31.0 [facility] Comment on above: Performed By: #### B MP, LIPASE, CBC, PT, PTT, HEPATIC #### [address] Chloride [Moles/volume] in S [place] or PlasmaOrdered By: Jason Benton on 07-06-2023 Chloride [Moles/Vol] 106 mmol/L Normal 98-107 [facility] Comment on above: Performed By: #### B MP, LIPASE, CBC, PT, PTT, HEPATIC #### [address] Complete Blood Count Auto Di ffon 07-06-2023 Mean Corpuscular HGB Conc 33.5 g/dL Normal 32.0-35.0 [facility] Comment on above: Performed By: #### B MP, LIPASE, CBC, PT, PTT, HEPATIC #### [address] Monocytes/100 WBC (Bld) 21.15 % High 0.00-20.00 [facility] Comment on above: Result Comment: For adults in ED, MDW > 20.0 may be associated with a higher risk of sepsis during the first 12 hrs of hospital admission Performed By: #### B MP, LIPASE, CBC, PT, PTT, HEPATIC #### [address] NRBC% 0.0 /100{WBC} Normal 0-0.5 [facility] Comment on above: Performed By: #### B MP, LIPASE, CBC, PT, PTT, HEPATIC #### [facility] [address] Comprehensive Metabolic Pane lamonte 07-06-2023 Albumin [Mass/Vol] 4.1 g/dL Normal 3.5-5.7 [facility] Comment on above: Performed By: #### B MP, LIPASE, CBC, PT, PTT, HEPATIC #### [facility] [address] Creatinine Clr Calc Pharmacy 108.38 Normal [facility] Comment on above: Performed By: #### B MP, LIPASE, CBC, PT, PTT, HEPATIC #### [address] GFR/1.73 sq M.predicted MDRD (S/P/Bld) [Vol rate/Area] mL/min/{1.73_m2} Normal [facility] Comment on above: Performed By: #### B MP, LIPASE, CBC, PT, PTT, HEPATIC #### [address] Creatinine [Mass/volume] in Serum or PlasmaOrdered By: Jason Benton on 07-06-2023 Creatinine [Mass/Vol] 0.74 mg/dL Normal 0.60-1.20 [facility] Comment on above: Performed By: #### B MP, LIPASE, CBC, PT, PTT, HEPATIC #### [address] Erythrocyte distribution wid th [Ratio] by Automated countOrdered By: Jason Benton on 07-06-2023 Erythrocyte distribution width (RBC) [Ratio] 13.2 % Normal 11.9-15.3 [facility] Comment on above: Performed By: #### B MP, LIPASE, CBC, PT, PTT, HEPATIC #### [address] Erythrocytes [#/volume] in B lood by Automated countOrdered By: Jason Benton on 07-06-2023 RBC (Bld) [#/Vol] 4.15 10*6/uL Normal 3.60-5.00 [facility] Comment on above: Performed By: #### B MP, LIPASE, CBC, PT, PTT, HEPATIC #### [facility] [address] Glucose [Mass/volume] in Ser um or PlasmaOrdered By: Jason Benton on 07-06-2023 Glucose [Mass/Vol] 96 mg/dL Normal 70-[address] [facility] Comment on above: ADA recommended refe rence rangeRandom Glucose Reference Range is dependent on time and content of last meal. Glucose of more than 200 mg/dL in a nonstressed, ambulatory subject supports the diagnosis of Diabetes Mellitus. Result Comment: [place] om Glucose Reference Range is dependent on time and content of last meal. Glucose of more than 200 mg/dL in a nonstressed, ambulatory subject supports the diagnosis of Diabetes Mellitus. ADA recommended reference range Performed By: #### B MP, LIPASE, CBC, PT, PTT, HEPATIC #### [facility] [address] Hematocrit [Volume Fraction] of Blood by Automated countOrdered By: Jason Benton on 07-06-2023 Hematocrit (Bld) [Volume fraction] 36.8 % Normal 34.0-46.4 [facility] Comment on above: Performed By: #### B MP, LIPASE, CBC, PT, PTT, HEPATIC #### [facility] [address] Hemoglobin [Mass/volume] in BloodOrdered By: Jason Benton on 07-06-2023 Hemoglobin (Bld) [Mass/Vol] 12.3 g/dL Normal 11.8-15.4 [facility] Comment on above: Performed By: #### B MP, LIPASE, CBC, PT, PTT, HEPATIC #### [facility] [address] Leukocytes [#/volume] correc rachelle for nucleated erythrocytes in Blood by Automated counOrdered By: Jason Benton on 07-06-2023 WBC corrected for nucl RBC Auto (Bld) [#/Vol] 12.9 10*3/uL High 3.8-11.6 [facility] Leukocytes [#/volume] in Blo od by Automated countOrdered By: Jason Benton on 07-06-2023 WBC (Bld) [#/Vol] 12.9 10*3/uL High 3.8-11.6 [facility] Comment on above: Performed By: #### B MP, LIPASE, CBC, PT, PTT, HEPATIC #### [address] Lipase [Enzymatic activity/v olume] in Serum or PlasmaOrdered By: Jason Benotn on 07-06-2023 Lipase [Catalytic activity/Vol] 25.0 U/L Normal 11.0-82.0 [facility] Comment on above: Result Comment: PERF ORMED BY: [place] [address] PATHOLOGIST [employer] JL PERKINS M.D. Performed By: #### B MP, LIPASE, CBC, PT, PTT, HEPATIC #### [place] [address] [place] Lymphocytes [#/volume] in Bl ood by Automated countOrdered By: Jason Benton on 07-06-2023 Lymphocytes (Bld) [#/Vol] 2.1 10*3/uL Normal 1.00-4.8 [facility] Comment on above: Performed By: #### B MP, LIPASE, CBC, PT, PTT, HEPATIC #### [place] [address] [place] Lymphocytes/100 leukocytes i n Blood by Automated countOrdered By: Jason Benton on 07-06-2023 Lymphocytes/100 WBC (Bld) 16.6 % Normal . [facility] Comment on above: Performed By: #### B MP, LIPASE, CBC, PT, PTT, HEPATIC #### [place] [address] [place] MCH [Entitic mass] by Automa rachelle countOrdered By: Jason Benton on 07-06-2023 MCH (RBC) [Entitic mass] 29.6 pg Normal 24.7-34.3 [facility] Comment on above: Performed By: #### B MP, LIPASE, CBC, PT, PTT, HEPATIC #### [facility] [address] MCHC Auto (RBC) [Mass/Vol]Or dered By: Jason Benton on 07-06-2023 MCHC (RBC) [Mass/Vol] 33.5 g/dL 32.0-35.0 [facility] MCV [Entitic volume] by Auto mated countOrdered By: Jason Benton on 07-06-2023 MCV (RBC) [Entitic vol] 88.6 fL Normal 80-100 [facility] Comment on above: Performed By: #### B MP, LIPASE, CBC, PT, PTT, HEPATIC #### [facility] [address] [place] [address] Monocyte distribution width [Entitic volume] in Blood by AutomatedOrdered By: Jason Benton on 07-06-2023 Monocyte distribution width Auto (Bld) [Entitic vol] 21.15 % High 0.00-20.00 [facility] Comment on above: For adults in ED, MD W > 20.0 may be associated with a higher risk of sepsis during the first 12 hrs of hospital admission Neutrophils [#/volume] in Bl ood by Automated countOrdered By: Jason Benton on 07-06-2023 Neutrophils (Bld) [#/Vol] 9.7 10*3/uL High 1.8-7.7 [facility] Comment on above: Performed By: #### B MP, LIPASE, CBC, PT, PTT, HEPATIC #### [facility] [address] [place] [address] No Panel InformationOrdered By: Jason Benton on 07-06-2023 Estimated GFR (CKD-EPI) > 60.0 mL/Min [facility] Creatinine Clearance (Chem 108.38 [facility] Nucleated erythrocytes [Pres ence] in Blood by Automated countOrdered By: Jason Benton on 07-06-2023 Nucleated RBC Auto Ql (Bld) 0.0 /100{WBC} 0-0.5 [facility] Platelet mean volume [Entiti c volume] in Blood by Automated countOrdered By: Jason Benton on 07-06-2023 Platelet mean volume (Bld) [Entitic vol] 7.2 fL Normal 6.3-10.7 [facility] Comment on above: Performed By: #### B MP, LIPASE, CBC, PT, PTT, HEPATIC #### [address] Platelets [#/volume] in Bloo d by Automated countOrdered By: Jason Benton on 07-06-2023 Platelets (Bld) [#/Vol] 241 10*3/uL Normal 150-450 [facility] Comment on above: Performed By: #### B MP, LIPASE, CBC, PT, PTT, HEPATIC #### [address] Potassium [Moles/volume] in Serum or PlasmaOrdered By: Jason Benton on 07-06-2023 Potassium [Moles/Vol] 3.7 mmol/L Normal 3.5-5.1 [facility] Comment on above: Performed By: #### B MP, LIPASE, CBC, PT, PTT, HEPATIC #### [address] Protein [Mass/volume] in Ser um or PlasmaOrdered By: Jason Benton on 07-06-2023 Protein [Mass/Vol] 7.6 g/dL Normal 6.4-8.[address] [facility] Comment on above: Performed By: #### B MP, LIPASE, CBC, PT, PTT, HEPATIC #### [facility] [address] [place] [address] Serum globulin measurement b y calculation (mass/volume)Ordered By: Jason Benton on 07-06-2023 Globulin (S) [Mass/Vol] 3.5 g/dL [facility] Comment on above: Performed By: #### B MP, LIPASE, CBC, PT, PTT, HEPATIC #### [address] Serum or plasma albumin/glob ulin mass ratioOrdered By: Jason Benton on 07-06-2023 Albumin/Globulin [Mass ratio] 1.2 {ratio} [facility] Comment on above: Performed By: #### B MP, LIPASE, CBC, PT, PTT, HEPATIC #### [facility] [address] Serum or plasma anion gap de terminationOrdered By: Jason Benton on 07-06-2023 Anion gap [Moles/Vol] 8.5 mmol/L Normal 6.0-15.0 [facility] Comment on above: Performed By: #### B MP, LIPASE, CBC, PT, PTT, HEPATIC #### [facility] [address] Sodium [Moles/volume] in Ser um or PlasmaOrdered By: Jason Benton on 07-06-2023 Sodium [Moles/Vol] 136 mmol/L Normal 136-[address] [facility] Comment on above: Performed By: #### B MP, LIPASE, CBC, PT, PTT, HEPATIC #### [facility] [address] Urea nitrogen [Mass/volume] in Serum or PlasmaOrdered By: Jason Benton on 07-06-2023 Urea nitrogen [Mass/Vol] 10 mg/dL Normal 7-25 [facility] Comment on above: Performed By: #### B MP, LIPASE, CBC, PT, PTT, HEPATIC #### [facility] [address] Activated partial thrombopla stin time (aPTT) in platelet poor plasma by coagulation aOrdered By: Tate Marcial on 06-13-2023 aPTT Coag (PPP) [Time] 28.3 s 25.1-36.5 [facility] Comment on above: A hematocrit value g reater than 55% may lead to inaccurate results in coagulation testing. Patients having hematocrit values >55% require a special collection tube for coagulation studies. Please contact the laboratory at [phone] for redraw instructions. Alanine aminotransferase [En zymatic activity/volume] in Serum or PlasmaOrdered By: Tate Marcial on 06-13-2023 ALT [Catalytic activity/Vol] 11 U/L Normal 7-52 [facility] Comment on above: Performed By: #### B MP, LIPASE, CBC, PT, PTT, HEPATIC #### [facility] [address] Albumin [Mass/volume] in Ser um or Plasma by Bromocresol green (BCG) dye binding methoOrdered By: Tate Marcial on 06-13-2023 Albumin BCG dye [Mass/Vol] 3.8 g/dL 3.5-5.7 [facility] Alkaline phosphatase [Enzyma tic activity/volume] in Serum or PlasmaOrdered By: Tate Marcial on 06-13-2023 ALP [Catalytic activity/Vol] 101 U/L Normal 34-104 [facility] Comment on above: Performed By: #### B MP, LIPASE, CBC, PT, PTT, HEPATIC #### [address] Aspartate aminotransferase [ Enzymatic activity/volume] in Serum or PlasmaOrdered By: Tate Marcial on 06-13-2023 AST [Catalytic activity/Vol] 15 U/L Normal 13-39 [facility] Comment on above: Order Comment: Name Collection Type:: Straight Catheter Result Comment: PERF ORMED BY: [place] [address] PATHOLOGIST [employer] JL PERKINS M.D. Performed By: #### A [place], [facility] [place] #### [address] Automated basophil %Ordered By: Tate Marcial on 06-13-2023 Basophils/100 WBC (Bld) 0.9 % Normal . [facility] Comment on above: Performed By: #### B MP, LIPASE, CBC, PT, PTT, HEPATIC #### [address] Automated basophil countOrde red By: Tate Marcial on 06-13-2023 Basophils (Bld) [#/Vol] 0.1 10*3/uL Normal 0.0-0.2 [facility] Comment on above: Result Comment: PERF ORMED BY: [place] [address] PATHOLOGIST [employer] JL PERKINS M.D. Performed By: #### B MP, LIPASE, CBC, PT, PTT, HEPATIC #### [address] Automated blood monocyte cou ntOrdered By: Tate Marcial on 06-13-2023 Monocytes (Bld) [#/Vol] 0.6 10*3/uL Normal 0.0-0.8 [facility] Comment on above: Performed By: #### B MP, LIPASE, CBC, PT, PTT, HEPATIC #### [address] Automated eosinophil %Ordere d By: Tate Marcial on 06-13-2023 Eosinophils/100 WBC (Bld) 2.5 % Normal . [facility] Comment on above: Performed By: #### B MP, LIPASE, CBC, PT, PTT, HEPATIC #### [address] Automated eosinophil countOr dered By: Tate Marcial on 06-13-2023 Eosinophils (Bld) [#/Vol] 0.2 10*3/uL Normal 0.0-0.45 [facility] Comment on above: Performed By: #### B MP, LIPASE, CBC, PT, PTT, HEPATIC #### [address] Automated erythrocytes count in urine sediment (number/area)Ordered By: Tate Marcial on 06-13-2023 RBC Auto (Urine sed) [#/Area] 0-1 [HPF] 0-4 [facility] Automated leukocytes count i n urine sediment (number/area)Ordered By: Tate Marcial on 06-13-2023 WBC Auto (Urine sed) [#/Area] 5-9 [HPF] 0-4 [facility] Automated monocyte %Ordered By: Tate Marcial on 06-13-2023 Monocytes/100 WBC (Bld) 7.2 % Normal . [facility] Comment on above: Performed By: #### B MP, LIPASE, CBC, PT, PTT, HEPATIC #### [address] Automated neutrophil %Ordere d By: Tate Marcial on 06-13-2023 Neutrophils/100 WBC (Bld) 56.4 % Normal . [facility] Comment on above: Performed By: #### B MP, LIPASE, CBC, PT, PTT, HEPATIC #### [address] Automated urine color determ inationOrdered By: Tate Marcial on 06-13-2023 Color (U) Yellow Normal Yellow [facility] Comment on above: Order Comment: Name Collection Type:: Clean-Voided Midstream Performed By: #### B MP, LIPASE, CBC, PT, PTT, HEPATIC #### [address] Basic Metabolic Panelon 05-27 Anion gap [Moles/Vol] Not performed Normal 6.0-15.0 [facility] Comment on above: Performed By: #### B MP, LIPASE, CBC, PT, PTT, HEPATIC #### [address] Creatinine Clr Calc Pharmacy 118.47 Normal [facility] Comment on above: Performed By: #### B MP, LIPASE, CBC, PT, PTT, HEPATIC #### [address] GFR/1.73 sq M.predicted MDRD (S/P/Bld) [Vol rate/Area] mL/min/{1.73_m2} Normal [facility] Comment on above: Performed By: #### B MP, LIPASE, CBC, PT, PTT, HEPATIC #### [address] Potassium Normal 3.5-5.1 [facility] Comment on above: Result Comment: Spec imen hemolyzed, redraw requested Performed By: #### B MP, LIPASE, CBC, PT, PTT, HEPATIC #### [address] Bilirubin Test strip Ql (U)O rdered By: Tate Marcial on 06-13-2023 Bilirubin Ql (U) Negative Negative [facility] Bilirubin.direct [Mass/volum e] in Serum or PlasmaOrdered By: Tate Marcial on 06-13-2023 Bilirubin.direct [Mass/Vol] 0.10 mg/dL 0.03-0.18 [facility] Bilirubin.total [Mass/volume ] in Serum or PlasmaOrdered By: Tate Marcial on 06-13-2023 Bilirubin [Mass/Vol] 0.2 mg/dL Low 0.3-1.0 [facility] Comment on above: Performed By: #### B MP, LIPASE, CBC, PT, PTT, HEPATIC #### [facility] [address] abdomen pelvis w conon CT abdomen pelvis w con [facility] Main [place] [address] [place] [address] CT Scan Report Signed Patient: Tracie Samuels MR#: [id number] : 1990 Acct:[id number] Age/Sex: 33 / F ADM Date: 06/13/23 Loc: ER Room: Type: [facility] ER Attending Dr: Copies to: Tate Marcial DO Ordering Provider: Tate Marcial DO Date of Service: 06/13/23 CT/CT abdomen pelvis w con: Abdominal Pain CT abdomen pelvis w con 06/13/2023 11:09 AM SIGNS AND SYMPTOMS: Abdominal pain TECHNIQUE: Multidetector ct axial images of the abdomen and pelvis were obtained with IV contrast. Multiplanar reformats were performed and reviewed to further define anatomy and possible pathology. CT was performed with one or more of the following dose reduction techniques: Automated exposure control, adjustment of the mA and/or kV according to patient size, or use of iterative reconstruction technique. COMPARISON: 06/13/2023 FINDINGS: Lower Chest: Within normal limits. ABDOMEN: Liver: The liver is mildly hypoattenuating in respect to the spleen suggesting hepatic steatosis. Bile Ducts: Normal caliber. Gallbladder: Previously removed Pancreas: Within normal limits. Spleen: Within normal limits. Adrenals: Within normal limits. Kidneys: Within normal limits. Pelvis: Reproductive Organs: There is an enhancing cystic structure in the left adnexa with an irregular- appearing wall presumably representing an involuting follicle or cyst. The previous right adnexal cyst has resolved. Ureters: Within normal limits. Bladder: Within normal limits. Bowel: Normal caliber. There is a normal appendix in the right lower quadrant. Mesenteric Lymph Nodes: No enlarged mesenteric lymph nodes. Peritoneum: There is a small amount of free fluid in the pelvis which may be physiologic. Vessels: within normal limits Retroperitoneum: Within normal limits. Abdominal Wall: Within normal limits. Bones: Within normal limits. CT/CT abdomen pelvis w con IMPRESSION: No acute intra-abdominal pathology. No bowel obstruction or obstructive uropathy. The liver is mildly hypoattenuating in respect to the spleen suggesting hepatic steatosis. There is a small amount of free fluid in the pelvis which may be physiologic. There is an enhancing cystic structure in the left adnexa with an irregular-appearing wall presumably representing an involuting follicle or cyst. The previous right adnexal cyst has resolved. Impression dictated by: Kristopher Sun M.D.06/13/2023 1:36 PM Dictation Location: [place] [address] Transcribed By: [facility] 06/13/23 1336 Dictated By: Kristopher Sun II, MD 06/13/23 1323 Signed By: 06/13/23 1336 Normal [facility] Calcium [Mass/volume] in Ser um or PlasmaOrdered By: Tate Marcial on 06-13-2023 Calcium [Mass/Vol] 8.7 mg/dL Normal 8.6-10.[address] [facility] Comment on above: Performed By: #### B MP, LIPASE, CBC, PT, PTT, HEPATIC #### [facility] [address] Carbon dioxide, total [Moles /volume] in Serum or PlasmaOrdered By: Tate Marcial on 06-13-2023 CO2 [Moles/Vol] 24.4 mmol/L Normal 21.0-31.0 [facility] Comment on above: Performed By: #### B MP, LIPASE, CBC, PT, PTT, HEPATIC #### [facility] [address] [place] [id number] [place] Chloride [Moles/volume] in S phoebe or PlasmaOrdered By: Tate Marcial on 06-13-2023 Chloride [Moles/Vol] 108 mmol/L High 98-107 [facility] Comment on above: Performed By: #### B MP, LIPASE, CBC, PT, PTT, HEPATIC #### [address] Complete Blood Count Auto Di ffon 06-13-2023 Mean Corpuscular HGB Conc 33.4 g/dL Normal 32.0-35.0 [facility] Comment on above: Performed By: #### B MP, LIPASE, CBC, PT, PTT, HEPATIC #### [address] Monocytes/100 WBC (Bld) 18.81 % Normal 0.00-20.00 [facility] Comment on above: Performed By: #### B MP, LIPASE, CBC, PT, PTT, HEPATIC #### [address] NRBC% 0.0 /100{WBC} Normal 0-0.5 [facility] Comment on above: Performed By: #### B MP, LIPASE, CBC, PT, PTT, HEPATIC #### [address] Creatinine [Mass/volume] in Serum or PlasmaOrdered By: Tate Marcial on 06-13-2023 Creatinine [Mass/Vol] 0.70 mg/dL Normal 0.60-1.20 [facility] Comment on above: Performed By: #### B MP, LIPASE, CBC, PT, PTT, HEPATIC #### [address] Dipstick and Microscopicon 0 06-13-2023 Appearance (U) Cloudy Critically abnormal Clear [facility] Comment on above: Order Comment: Name Collection Type:: Clean-Voided Midstream Performed By: #### B MP, LIPASE, CBC, PT, PTT, HEPATIC #### [address] Bacteria,Urine 1+ High None Seen [facility] Comment on above: Order Comment: Name Collection Type:: Clean-Voided Midstream Performed By: #### B MP, LIPASE, CBC, PT, PTT, HEPATIC #### [facility] [address] [place] [id number] [place] Bilirubin,Urine Negative Normal Negative [facility] Comment on above: Order Comment: Name Collection Type:: Clean-Voided Midstream Performed By: #### B MP, LIPASE, CBC, PT, PTT, HEPATIC #### [facility] [address] [place] [id number] [place] Glucose Ql (U) Normal Normal Normal [facility] Comment on above: Order Comment: Name Collection Type:: Clean-Voided Midstream Performed By: #### B MP, LIPASE, CBC, PT, PTT, HEPATIC #### [facility] [address] [place] [address] [place] Hyaline Casts,Urine None Seen Normal 0-8 [facility] Comment on above: Order Comment: Name Collection Type:: Clean-Voided Midstream Performed By: #### B MP, LIPASE, CBC, PT, PTT, HEPATIC #### [facility] [address] Ketones Ql (U) Negative Normal Negative [facility] Comment on above: Order Comment: Name Collection Type:: Clean-Voided Midstream Performed By: #### B MP, LIPASE, CBC, PT, PTT, HEPATIC #### [facility] [address] [place] [id number] [place] Leukocyte esterase Test strip Ql (U) 1+ High Negative [facility] Comment on above: Order Comment: Name Collection Type:: Clean-Voided Midstream Performed By: #### B MP, LIPASE, CBC, PT, PTT, HEPATIC #### [facility] [address] [place] [id number] [place] Nitrite,Urine Negative Normal Negative [facility] Comment on above: Order Comment: Name Collection Type:: Clean-Voided Midstream Performed By: #### B MP, LIPASE, CBC, PT, PTT, HEPATIC #### [facility] [address] [place] [id number] [place] Occult Blood,Urine 1+ High Negative [facility] Comment on above: Order Comment: Name Collection Type:: Clean-Voided Midstream Performed By: #### B MP, LIPASE, CBC, PT, PTT, HEPATIC #### [address] Protein,Urine Negative Normal Negative [facility] Comment on above: Order Comment: Name Collection Type:: Clean-Voided Midstream Performed By: #### B MP, LIPASE, CBC, PT, PTT, HEPATIC #### [address] RBC LM.HPF (Urine sed) [#/Area] 0 /[HPF] Normal 0-4 [facility] Comment on above: Order Comment: Name Collection Type:: Clean-Voided Midstream Performed By: #### B MP, LIPASE, CBC, PT, PTT, HEPATIC #### [address] Specificy [place],Urine 1.018 Normal 1.001-1.03 0 [facility] Comment on above: Order Comment: Name Collection Type:: Clean-Voided Midstream Performed By: #### B MP, LIPASE, CBC, PT, PTT, HEPATIC #### [address] Squamous Epithelial Cell,Urine 10-19 High 0-2 [facility] Comment on above: Order Comment: Name Collection Type:: Clean-Voided Midstream Performed By: #### B MP, LIPASE, CBC, PT, PTT, HEPATIC #### [address] Urobilinogen,Urine Normal Normal Normal [facility] Comment on above: Order Comment: Name Collection Type:: Clean-Voided Midstream Performed By: #### B MP, LIPASE, CBC, PT, PTT, HEPATIC #### [address] WBC,Urine 5-9 High 0-4 [facility] Comment on above: Order Comment: Name Collection Type:: Clean-Voided Midstream Performed By: #### B MP, LIPASE, CBC, PT, PTT, HEPATIC #### [address] Erythrocyte distribution wid th [Ratio] by Automated countOrdered By: Tate Marcial on 06-13-2023 Erythrocyte distribution width (RBC) [Ratio] 13.2 % Normal 11.9-15.3 [facility] Comment on above: Performed By: #### B MP, LIPASE, CBC, PT, PTT, HEPATIC #### [facility] [address] Erythrocytes [#/volume] in B lood by Automated countOrdered By: Tate Marcial on 06-13-2023 RBC (Bld) [#/Vol] 4.10 10*6/uL Normal 3.60-5.00 [facility] Comment on above: Performed By: #### B MP, LIPASE, CBC, PT, PTT, HEPATIC #### [facility] [address] Glucose [Mass/volume] in Ser um or PlasmaOrdered By: Tate Marcial on 06-13-2023 Glucose [Mass/Vol] 99 mg/dL Normal 70-[address] [facility] Comment on above: ADA recommended refe rence rangeRandom Glucose Reference Range is dependent on time and content of last meal. Glucose of more than 200 mg/dL in a nonstressed, ambulatory subject supports the diagnosis of Diabetes Mellitus. Result Comment: [place] om Glucose Reference Range is dependent on time and content of last meal. Glucose of more than 200 mg/dL in a nonstressed, ambulatory subject supports the diagnosis of Diabetes Mellitus. ADA recommended reference range Performed By: #### B MP, LIPASE, CBC, PT, PTT, HEPATIC #### [facility] [address] HCG ( test) IA.rapi d Ql (U)Ordered By: Tate Marcial on 06-13-2023 HCG ( test) Ql (U) Negative [facility] HCG,Urineon 06-13-2023 Beta HCG ( test) Ql (U) Negative Normal [facility] Comment on above: Order Comment: Name Collection Type:: Clean-Voided Midstream Result Comment: PERF ORMED BY: [facility] [address] [facility] [place] [address] PATHOLOGIST [employer] JL PERKINS M.D. Performed By: #### B MP, LIPASE, CBC, PT, PTT, HEPATIC #### [address] Hematocrit [Volume Fraction] of Blood by Automated countOrdered By: Tate Marcial on 06-13-2023 Hematocrit (Bld) [Volume fraction] 36.2 % Normal 34.0-46.4 [facility] Comment on above: Performed By: #### B MP, LIPASE, CBC, PT, PTT, HEPATIC #### [address] Hemoglobin [Mass/volume] in BloodOrdered By: Tate Marcial on 06-13-2023 Hemoglobin (Bld) [Mass/Vol] 12.1 g/dL Normal 11.8-15.4 [facility] Comment on above: Performed By: #### B MP, LIPASE, CBC, PT, PTT, HEPATIC #### [address] Hepatic Panelon 06-13-2023 Albumin [Mass/Vol] 3.8 g/dL Normal 3.5-5.7 [facility] Comment on above: Performed By: #### B MP, LIPASE, CBC, PT, PTT, HEPATIC #### [address] Aspartate Amino Transferase Normal 13-39 [facility] Comment on above: Result Comment: Spec imen hemolyzed, redraw requested Performed By: #### B MP, LIPASE, CBC, PT, PTT, HEPATIC #### [address] Bilirubin,Direct Normal 0.03-0.18 [facility] Comment on above: Result Comment: Spec imen hemolyzed, redraw requested Performed By: #### B MP, LIPASE, CBC, PT, PTT, HEPATIC #### [address] Bilirubin,Indirect Not performed Normal [facility] Comment on above: Performed By: #### B MP, LIPASE, CBC, PT, PTT, HEPATIC #### [facility] [address] [place] [address] [place] INR in Platelet poor plasma by Coagulation assayOrdered By: Tate Marcial on 06-13-2023 INR Coag (PPP) [Relative time] 0.9 {INR} Normal [facility] Comment on above: INR Therapeutic Rang e A) Pre- and Peroperative OAT started two weeks before surgery. NOT HIP SURGERY: 1.5 - 2.5 HIP SURGERY: 2 - 3B) Primary and secondary prevention of venous THROMBOSIS: 2 - 3C) Active venous thrombosis, pulmonary embolismand prevention of recurrent venous thrombosis: 2 - 3D) Prevention of arterial thromboembolismincluding patients with mechanical heart valves: 3 - 4.5 Result Comment: INR Therapeutic Range A) Pre- and Peroperative OAT started two weeks before surgery. NOT HIP SURGERY: 1.5 - 2.5 HIP SURGERY: 2 - 3 B) Primary and secondary prevention of venous THROMBOSIS: 2 - 3 C) Active venous thrombosis, pulmonary embolism and prevention of recurrent venous thrombosis: 2 - 3 D) Prevention of arterial thromboembolism including patients with mechanical heart valves: 3 - 4.5 Performed By: #### B MP, LIPASE, CBC, PT, PTT, HEPATIC #### [facility] [address] [place] [id number] [facility] Ketones Auto test strip (U) [Mass/Vol]Ordered By: Tate Marcial on 06-13-2023 Ketones (U) [Mass/Vol] Negative Negative [facility] - UrinalysisOrder ed By: Tate Marcial on 06-13-2023 Hyaline casts LM Ql (Urine sed) None seen [LPF] 0-8 [facility] Leukocytes [#/volume] correc rachelle for nucleated erythrocytes in Blood by Automated counOrdered By: Tate Marcial on 06-13-2023 WBC corrected for nucl RBC Auto (Bld) [#/Vol] 8.6 10*3/uL 3.8-11.6 [facility] Leukocytes [#/volume] in Blo od by Automated countOrdered By: Tate Marcial on 06-13-2023 WBC (Bld) [#/Vol] 8.6 10*3/uL Normal 3.8-11.[address] [facility] Comment on above: Performed By: #### B MP, LIPASE, CBC, PT, PTT, HEPATIC #### [facility] [address] [place] [address] Lipase [Enzymatic activity/v olume] in Serum or PlasmaOrdered By: Tate Marcial on 06-13-2023 Lipase [Catalytic activity/Vol] 24.0 U/L Normal 11.0-82.0 [facility] Comment on above: Result Comment: PERF ORMED BY: [place] [address] PATHOLOGIST [employer] JL PERKINS M.D. Performed By: #### B MP, LIPASE, CBC, PT, PTT, HEPATIC #### [address] Lymphocytes [#/volume] in Bl ood by Automated countOrdered By: Tate Marcial on 06-13-2023 Lymphocytes (Bld) [#/Vol] 2.8 10*3/uL Normal 1.00-4.8 [facility] Comment on above: Performed By: #### B MP, LIPASE, CBC, PT, PTT, HEPATIC #### [address] Lymphocytes/100 leukocytes i n Blood by Automated countOrdered By: Tate Marcial on 06-13-2023 Lymphocytes/100 WBC (Bld) 33.0 % Normal . [facility] Comment on above: Performed By: #### B MP, LIPASE, CBC, PT, PTT, HEPATIC #### [address] MCH [Entitic mass] by Automa rachelle countOrdered By: Tate Marcial on 06-13-2023 MCH (RBC) [Entitic mass] 29.5 pg Normal 24.7-34.3 [facility] Comment on above: Performed By: #### B MP, LIPASE, CBC, PT, PTT, HEPATIC #### [address] MCHC Auto (RBC) [Mass/Vol]Or dered By: Tate Marcial on 06-13-2023 MCHC (RBC) [Mass/Vol] 33.4 g/dL 32.0-35.0 [facility] MCV [Entitic volume] by Auto mated countOrdered By: Tate Marcial on 06-13-2023 MCV (RBC) [Entitic vol] 88.1 fL Normal 80-100 [facility] Comment on above: Performed By: #### B MP, LIPASE, CBC, PT, PTT, HEPATIC #### [facility] [address] Monocyte distribution width [Entitic volume] in Blood by AutomatedOrdered By: Tate Marcial on 06-13-2023 Monocyte distribution width Auto (Bld) [Entitic vol] 18.81 % 0.00-20.00 [facility] Neutrophils [#/volume] in Bl ood by Automated countOrdered By: Tate Marcial on 06-13-2023 Neutrophils (Bld) [#/Vol] 4.9 10*3/uL Normal 1.8-7.7 [facility] Comment on above: Performed By: #### B MP, LIPASE, CBC, PT, PTT, HEPATIC #### [facility] [address] Nitrite Test strip Ql (U)Ord ered By: Tate Marcial on 06-13-2023 Nitrite Ql (U) Negative Negative [facility] No Panel InformationOrdered By: Tate Marcial on 06-13-2023 Estimated GFR (CKD-EPI) > 60.0 mL/Min [facility] Creatinine Clearance (Chem 118.47 [facility] Nucleated erythrocytes [Pres ence] in Blood by Automated countOrdered By: Tate Marcial on 06-13-2023 Nucleated RBC Auto Ql (Bld) 0.0 /100{WBC} 0-0.5 [facility] Partial Thromboplastin Timeo n 06-13-2023 aPTT Coag (Bld) [Time] 28.3 s Normal 25.1-36.5 [facility] Comment on above: Result Comment: A he matocrit value greater than 55% may lead to inaccurate results in coagulation testing. Patients having hematocrit values >55% require a special collection tube for coagulation studies. Please contact the laboratory at [phone] for redraw instructions. PERFORMED BY: [place] [address] PATHOLOGIST [employer] JL PERKINS M.D. Performed By: #### B MP, LIPASE, CBC, PT, PTT, HEPATIC #### [address] Platelet mean volume [Entiti c volume] in Blood by Automated countOrdered By: Tate Marcial on 06-13-2023 Platelet mean volume (Bld) [Entitic vol] 7.2 fL Normal 6.3-10.7 [facility] Comment on above: Performed By: #### B MP, LIPASE, CBC, PT, PTT, HEPATIC #### [address] Platelets [#/volume] in Bloo d by Automated countOrdered By: Tate Marcial on 06-13-2023 Platelets (Bld) [#/Vol] 238 10*3/uL Normal 150-450 [facility] Comment on above: Performed By: #### B MP, LIPASE, CBC, PT, PTT, HEPATIC #### [facility] [address] [place] [address] Potassium [Moles/volume] in Serum or PlasmaOrdered By: Tate Marcial on 06-13-2023 Potassium [Moles/Vol] 4.4 mmol/L Normal 3.5-5.1 [facility] Comment on above: Order Comment: Pleas e send a phleb per Gill in ER. MLG Result Comment: PERF ORMED BY: [place] [address] PATHOLOGIST [employer] JL PERKINS M.D. Performed By: #### B MP, LIPASE, CBC, PT, PTT, HEPATIC #### [place] [address] [place] Potassium [Moles/Vol] See comment 3.5-5.1 [facility] Comment on above: Specimen hemolyzed, redraw requested Protein Auto test strip (U) [Mass/Vol]Ordered By: Tate Marcial on 06-13-2023 Protein (U) [Mass/Vol] Negative Negative [facility] Protein [Mass/volume] in Ser um or PlasmaOrdered By: Tate Marcial on 06-13-2023 Protein [Mass/Vol] 7.2 g/dL Normal 6.4-8.[address] [facility] Comment on above: Performed By: #### B MP, LIPASE, CBC, PT, PTT, HEPATIC #### [facility] [address] Prothrombin time (PT)Ordered By: Tate Marcial on 06-13-2023 PT Coag (PPP) [Time] 10.5 s Normal 9.0-12.9 [facility] Comment on above: A hematocrit value g reater than 55% may lead to inaccurate results in coagulation testing. Patients having hematocrit values >55% require a special collection tube for coagulation studies. Please contact the laboratory at [phone] for redraw instructions. Result Comment: A he matocrit value greater than 55% may lead to inaccurate results in coagulation testing. Patients having hematocrit values >55% require a special collection tube for coagulation studies. Please contact the laboratory at [phone] for redraw instructions. Performed By: #### B MP, LIPASE, CBC, PT, PTT, HEPATIC #### [address] Redraw Bilirubin,Directon Redraw Bilirubin,Direct 0.10 mg/dL Normal 0.03-0.18 [facility] Comment on above: Order Comment: BOTH TUBES HEMOLYZED. NOTIFIED VI Performed By: #### R EDRAW K, REDRAW DBILi, REDRAW AST #### [facility] [address] Redraw Potassiumon Redraw Potassium Normal 3.5-5.1 [facility] Comment on above: Order Comment: BOTH TUBES HEMOLYZED. NOTIFIED VI Result Comment: Spec imen hemolyzed, redraw requested Performed By: #### R EDRAW K, REDRAW DBILi, REDRAW AST #### [facility] [address] Serum globulin measurement b y calculation (mass/volume)Ordered By: Tate Marcial on 06-13-2023 Globulin (S) [Mass/Vol] 3.4 g/dL Normal [facility] Comment on above: Performed By: #### B MP, LIPASE, CBC, PT, PTT, HEPATIC #### [facility] [address] Serum or plasma albumin/glob ulin mass ratioOrdered By: Tate Marcial on 06-13-2023 Albumin/Globulin [Mass ratio] 1.1 {ratio} [facility] Comment on above: Performed By: #### B MP, LIPASE, CBC, PT, PTT, HEPATIC #### [address] Serum or plasma anion gap de terminationOrdered By: Tate Marcial on 06-13-2023 Anion gap [Moles/Vol] TNP [facility] Comment on above: Test not performed Serum or plasma non-glucuron idated bilirubin measurement (mass/volume)Ordered By: Tate Marcial on 06-13-2023 Bilirubin.indirect [Mass/Vol] [facility] on above: Test not performed Sodium [Moles/volume] in Ser um or PlasmaOrdered By: Tate Marcial on 06-13-2023 Sodium [Moles/Vol] 137 mmol/L Normal 136-[address] [facility] Comment on above: Performed By: #### B MP, LIPASE, CBC, PT, PTT, HEPATIC #### [facility] [address] Specific gravity Auto test s trip (U) [Rel density]Ordered By: Tate Marcial on 06-13-2023 Specific gravity (U) [Rel density] 1.018 1.001-1.03 0 [facility] Squamous epithelial cells de tection in urine sediment by light microscopyOrdered By: Tate Marcial on 06-13-2023 Epithelial cells.squamous LM Ql (Urine sed) 10-19 [HPF] 0-2 [facility] Urea nitrogen [Mass/volume] in Serum or PlasmaOrdered By: Tate Marcial on 06-13-2023 Urea nitrogen [Mass/Vol] 8 mg/dL Normal 7-25 [facility] Comment on above: Performed By: #### B MP, LIPASE, CBC, PT, PTT, HEPATIC #### [facility] [address] Urine Cultureon 06-13-2023 Bacteria identified Cx Nom (U) 30,000 colonies/ml mixed bacterial skin contaminants 2 Days PERFORMED BY: [place] [address] PATHOLOGIST [employer] JL PERKINS M.D. Normal [facility] Comment on above: Performed By: #### B MP, LIPASE, CBC, PT, PTT, HEPATIC #### [facility] [address] [place] [address] Urine bacteria detection by automated methodOrdered By: Tate Marcial on 06-13-2023 Bacteria Auto Ql (U) 1+ None Seen [facility] Urine clarity by refractomet ry automatedOrdered By: Tate Marcial on 06-13-2023 Clarity Refractometry automated (U) Cloudy Clear [facility] Urine culture routineOrdered By: Tate Marcial on 06-13-2023 Bacteria identified Cx Nom (U) 2 Days [facility] Urine glucose measurement by automated test strip (mass/volume)Ordered By: Tate Marcial on 06-13-2023 Glucose Auto test strip (U) [Mass/Vol] Normal mg/dL Normal [facility] Urine hemoglobin detection b y automated test stripOrdered By: Tate Marcial on 06-13-2023 Hemoglobin Auto test strip Ql (U) 1+ Negative [facility] Urine leukocyte esterase det ection by automated test stripOrdered By: Tate Marcial on 06-13-2023 Leukocyte esterase Auto test strip Ql (U) 1+ Negative [facility] Urine pH measurement by auto mated test stripOrdered By: Tate Marcial on 06-13-2023 pH (U) 6.0 [pH] Normal 5.0-9.0 [facility] Comment on above: Order Comment: Name Collection Type:: Clean-Voided Midstream Performed By: #### B MP, LIPASE, CBC, PT, PTT, HEPATIC #### [facility] [address] Urobilinogen Auto test strip (U) [Mass/Vol]Ordered By: Tate Marcial on 06-13-2023 Urobilinogen (U) [Mass/Vol] Normal mg/dL Normal [facility] HCG ( test) IA.rapi d Ql (U)Ordered By: JAELYN HARRINGTON on 05-22-2023 HCG ( test) Ql (U) Negative [facility] HCG,Urineon 05-22-2023 Beta HCG ( test) Ql (U) Negative Normal [facility] Comment on above: Result Comment: PERF ORMED BY: [place] [address] PATHOLOGIST [employer] JL PERKINS M.D. Performed By: #### B MP, LIPASE, CBC, PT, PTT, HEPATIC #### [address] [place] 05-22-2023 L Specimen: Received: 05/22/23 Status: RC Mcbride Num: [id number] Spec Type: Surgical Subm Dr: Anthony Huang DO Tissues: A Ovary W/ or W/O Fallopian Tube, Non-Neoplastic (LT/RT FT REMNANT/RT OVARY) Procedures: HE/4, Gross/Micro L4 Age/ Patient Sex Location Account Attending Physician Tracie Samuels 33/F [place] [id number] Anthony Huang DO SPEC NUM: [id number] RECD: 05/22/23 STATUS: RC MCBRIDE NUM: [id number] CHIO: 05/22/23- SUBM DR: Anthony Huang DO ENTERED: 05/22/[address]: SPEC TYPE: Surgical DEPT: S ORDERED: HE/4, Gross/Micro L4 ORDERED: HE/4, Gross/Micro L4 Pathological Diagnosis Left and right tubal remnants, right ovary, Resection: Hemorrhagic corpus luteal cyst. Clinical Information Right ovarian hemorrhagic cyst Gross Description Received in formalin labeled with the patient's name, date of and left and right tubal remnants, right ovary is a 1.1 x 0.6 x 0.4 cm jaquez-jiménez, rubbery tissue with an attached white plastic tubal ligation clip. Sectioning reveals a possible lumen. Additionally received is a 4.0 x 1.1 x 0.8 cm jaquez-red fimbriated fallopian tube with an attached white plastic tubal ligation clip. Sectioning reveals a patent lumen. Additionally received is a 5.8 x 3.8 x 2.4 cm rubbery, jaquez-pink to yellow-red, rubbery tissue with a rubbery, yellow-red cut surface. Certified Registered Nurse Anesthetist sections are submitted in 4 cassettes as follows: A1 - Smallest tissue in its entirety after removing ligation clip A2 - Sections of fimbriated fallopian tube A3-A4 - Certified Registered Nurse Anesthetist sections of third tissue Specimen: [id number] Received: 05/22/23 Status: RC Cali Num: [id number] Spec Type: Surgical Subm Dr: Anthony Huang DO Tissues: A Ovary W/ or W/O Fallopian Tube, Non-Neoplastic (LT/RT FT REMNANT/RT OVARY) Procedures: HE/4, Gross/Micro L4 Patient: Tracie Samuels [id number] (Continued) Specimen: Received: 05/22/23 (Continued) Signed (signature on file) Brenden Givens MD 05/23/23 1718 Specimen: Received: 05/22/23 Status: RC Mcbride Num: [id number] Spec Type: Surgical Subm Dr: Anthony Huang DO Tissues: A Ovary W/ or W/O Fallopian Tube, Non-Neoplastic (LT/RT FT REMNANT/RT OVARY) Procedures: HE/4, Gross/Micro L4 Patient: Tracie Samuels [id number] (Continued) Specimen: Received: 05/22/23 (Continued) CPT Codes 88604q2 Specimen: [id number] Received: 05/22/23 Status: RC Mcbride Num: [id number] Spec Type: Surgical Subm Dr: Anthony Huang DO Tissues: A Ovary W/ or W/O Fallopian Tube, Non-Neoplastic (LT/RT FT REMNANT/RT OVARY) Procedures: HE/Yamini, Gross/Micro L4 Patient: Tracie Samuels [id number] (Continued) Signed (signature on file) Brenden Givens MD 05/23/23 1718 Normal [facility] Alanine aminotransferase [En zymatic activity/volume] in Serum or PlasmaOrdered By: Tate Marcial on 05-16-2023 ALT [Catalytic activity/Vol] 11 U/L Normal 7-52 [facility] Comment on above: Performed By: #### B MP, LIPASE, CBC, PT, PTT, HEPATIC #### [facility] [address] [place] [address] [place] Albumin [Mass/volume] in Ser um or Plasma by Bromocresol green (BCG) dye binding methoOrdered By: Tate Marcial on 05-16-2023 Albumin BCG dye [Mass/Vol] 4.1 g/dL 3.5-5.7 [facility] Alkaline phosphatase [Enzyma tic activity/volume] in Serum or PlasmaOrdered By: Tate Marcial on 05-16-2023 ALP [Catalytic activity/Vol] 89 U/L Normal 34-104 [facility] Comment on above: Performed By: #### B MP, LIPASE, CBC, PT, PTT, HEPATIC #### [facility] [address] [place] [address] [place] Aspartate aminotransferase [ Enzymatic activity/volume] in Serum or PlasmaOrdered By: Tate Marcial on 05-16-2023 AST [Catalytic activity/Vol] 13 U/L Normal 13-39 [facility] Comment on above: Performed By: #### B MP, LIPASE, CBC, PT, PTT, HEPATIC #### [facility] [address] [place] [address] [place] Automated basophil %Ordered By: Tate Marcial on 05-16-2023 Basophils/100 WBC (Bld) 0.4 % Normal . [facility] Comment on above: Performed By: #### B MP, LIPASE, CBC, PT, PTT, HEPATIC #### [facility] [address] [place] [address] Automated basophil countOrde red By: Tate Marcial on 05-16-2023 Basophils (Bld) [#/Vol] 0.1 10*3/uL Normal 0.0-0.2 [facility] Comment on above: Result Comment: PERF ORMED BY: [place] [address] PATHOLOGIST [employer] JL PERKINS M.D. Performed By: #### B MP, LIPASE, CBC, PT, PTT, HEPATIC #### [address] Automated blood monocyte cou ntOrdered By: Tate Marcial on 05-16-2023 Monocytes (Bld) [#/Vol] 0.8 10*3/uL Normal 0.0-0.8 [facility] Comment on above: Performed By: #### B MP, LIPASE, CBC, PT, PTT, HEPATIC #### [address] Automated eosinophil %Ordere d By: Tate Marcial on 05-16-2023 Eosinophils/100 WBC (Bld) 3.3 % Normal . [facility] Comment on above: Performed By: #### B MP, LIPASE, CBC, PT, PTT, HEPATIC #### [address] Automated eosinophil countOr dered By: Tate Marcial on 05-16-2023 Eosinophils (Bld) [#/Vol] 0.4 10*3/uL Normal 0.0-0.45 [facility] Comment on above: Performed By: #### B MP, LIPASE, CBC, PT, PTT, HEPATIC #### [address] Automated erythrocytes count in urine sediment (number/area)Ordered By: Tate Marcial on 05-16-2023 RBC Auto (Urine sed) [#/Area] 5-9 [HPF] 0-4 [facility] Automated leukocytes count i n urine sediment (number/area)Ordered By: Tate Marcial on 05-16-2023 WBC Auto (Urine sed) [#/Area] 10-19 [HPF] 0-4 [facility] Automated monocyte %Ordered By: Tate Marcial on 05-16-2023 Monocytes/100 WBC (Bld) 6.0 % Normal . [facility] Comment on above: Performed By: #### B MP, LIPASE, CBC, PT, PTT, HEPATIC #### [facility] [address] Automated neutrophil %Ordere d By: Tate Marcial on 05-16-2023 Neutrophils/100 WBC (Bld) 76.2 % Normal . [facility] Comment on above: Performed By: #### B MP, LIPASE, CBC, PT, PTT, HEPATIC #### [address] Automated urine color determ inationOrdered By: Tate Marcial on 05-16-2023 Color (U) Yellow Normal Yellow [facility] Comment on above: Order Comment: Name Collection Type:: Straight Catheter Performed By: #### A DDONUAPLUS, CG #### [address] Basic Metabolic Panelon 04-27 Creatinine Clr Calc Pharmacy 119.04 Normal [facility] Comment on above: Performed By: #### B MP, LIPASE, CBC, PT, PTT, HEPATIC #### [address] GFR/1.73 sq M.predicted MDRD (S/P/Bld) [Vol rate/Area] mL/min/{1.73_m2} Normal [facility] Comment on above: Performed By: #### B MP, LIPASE, CBC, PT, PTT, HEPATIC #### [address] Bilirubin Test strip Ql (U)O rdered By: Tate Marcial on 05-16-2023 Bilirubin Ql (U) Negative Negative [facility] Bilirubin.direct [Mass/volum e] in Serum or PlasmaOrdered By: Tate Marcial on 05-16-2023 Bilirubin.direct [Mass/Vol] 0.10 mg/dL 0.03-0.18 [facility] Bilirubin.total [Mass/volume ] in Serum or PlasmaOrdered By: Tate Marcial on 05-16-2023 Bilirubin [Mass/Vol] 0.4 mg/dL Normal 0.3-1.0 [facility] Comment on above: Performed By: #### B MP, LIPASE, CBC, PT, PTT, HEPATIC #### [facility] [address] COVID CepheidOrdered By: Tevin Marcial on 05-16-2023 SARS-CoV-2 (COVID-19) Ab IA Ql Negative Negative [facility] Comment on above: This is a duplicate Cepheid Xpert Xpress CoV-2/Flu/RSV Plus RNA by RT-PCR result to be used for statistical tracking purpose only. SARS-CoV-2 (COVID-19) RNA JUANA+probe Ql (Unsp spec) [facility] COVID-19 / Flu A/B / RSV PCR on 05-16-2023 SARS-CoV-2 (COVID-19) RNA JUANA+probe Ql (Unsp spec) COVID-19 Cepheid Result Negative for SARS-CoV-2 RNA by RT-PCR Flu A Cepheid Result Negative for Flu A RNA by RT-PCR Flu B Cepheid Result Negative for Flu B RNA by RT-PCR RSV Cepheid Result Negative for RSV RNA by RT-PCR COVID19 Blank Space ---- Reference: Negative COVID19 Blank Space ---- Cepheid Disclaimer The Cepheid Xpert Xpress CoV-2/Flu/RSV Plus has Cepheid Disclaimer not been FDA cleared or approved; this test has Cepheid Disclaimer been authorized by FDA under an EUA for use by Cepheid Disclaimer authorized laboratories; this test has been Cepheid Disclaimer authorized only for the simultaneous qualitative Cepheid Disclaimer detection and differentiation of nucleic acids from Cepheid Disclaimer SARS-CoV-2, influenza A, influenza B, and Cepheid Disclaimer respiratory syncytial virus (RSV), and not for any Cepheid Disclaimer other viruses or pathogens; and this test is only Cepheid Disclaimer authorized for the duration of the declaration that Cepheid Disclaimer circumstances exist justifying the authorization of Cepheid Disclaimer emergency use of in vitro diagnostic tests for Cepheid Disclaimer detection and/or diagnosis of COVID-19 under Cepheid Disclaimer Section 564(b)(1) of the Act, 21 U.S.C. 360bbb- Cepheid Disclaimer 3(b)(1), unless the authorization is terminated or Cepheid Disclaimer revoked sooner. PERFORMED BY: [place] [address] PATHOLOGIST [employer] JL PERKINS M.D. Normal [facility] Comment on above: Performed By: #### B MP, LIPASE, CBC, PT, PTT, HEPATIC #### [address] abdomen pelvis w conon CT abdomen pelvis w con [facility] [place] [address] [place] [address] CT Scan Report Signed Patient: Tracie Samuels MR#: [id number] : 1990 Acct:[id number] Age/Sex: 33 / F ADM Date: 05/16/23 Loc: ER Room: Type: [facility] ER Attending Dr: Copies to: Tate Marcial DO Ordering Provider: Tate Marcial DO Date of Service: 05/16/23 CT/CT abdomen pelvis w con: Abdominal Pain CT abdomen pelvis w con 05/16/2023 12:07 PM SIGNS AND SYMPTOMS: History of ovarian cyst, worsening left lower quadrant pain with diarrhea TECHNIQUE: Multidetector ct axial images of the abdomen and pelvis were obtained with IV contrast. Multiplanar reformats were performed and reviewed to further define anatomy and possible pathology. CT was performed with one or more of the following dose reduction techniques: Automated exposure control, adjustment of the mA and/or kV according to patient size, or use of iterative reconstruction technique. COMPARISON: 05/12/2023 FINDINGS: Lower Chest: Within normal limits. ABDOMEN: Liver: Within normal limits. Bile Ducts: Normal caliber. Gallbladder: Previously removed Pancreas: Within normal limits. Spleen: Within normal limits. Adrenals: Within normal limits. Kidneys: Within normal limits. Pelvis: Reproductive Organs: There is a 4.8 cm cyst in the right adnexa with adjacent fat stranding. This was present on the prior exam and is only slightly larger. Ureters: Within normal limits. Bladder: Within normal limits. Bowel: There are uncomplicated colonic diverticula. There is a normal appendix in the right lower quadrant. There is no evidence of bowel obstruction. Mesenteric Lymph Nodes: No enlarged mesenteric lymph nodes. Peritoneum: There is a small amount of free fluid in the pelvis which may be physiologic. Vessels: within normal limits Retroperitoneum: Within normal limits. Abdominal Wall: Within normal limits. Bones: Within normal limits. CT/CT abdomen pelvis w con IMPRESSION: There is no bowel obstruction or obstructive uropathy. There is a 4.8 cm cyst in the right adnexa with adjacent fat stranding. This was present on the prior exam and is only slightly larger. There is a small amount of free fluid in the pelvis which may be physiologic. There are uncomplicated colonic diverticula. Impression dictated by: Kristopher Sun M.D.05/16/2023 12:26 PM Dictation Location: [place] [address] Transcribed By: [facility] 05/16/23 1226 Dictated By: Kristopher Sun II, MD 05/16/23 1209 Signed By: 05/16/23 1226 Normal [facility] Calcium [Mass/volume] in Ser um or PlasmaOrdered By: Tate Marcial on 05-16-2023 Calcium [Mass/Vol] 8.8 mg/dL Normal 8.6-10.[address] [facility] Comment on above: Performed By: #### B MP, LIPASE, CBC, PT, PTT, HEPATIC #### [facility] [address] Carbon dioxide, total [Moles /volume] in Serum or PlasmaOrdered By: Tate Marcial on 05-16-2023 CO2 [Moles/Vol] 23.7 mmol/L Normal 21.0-31.0 [facility] Comment on above: Performed By: #### B MP, LIPASE, CBC, PT, PTT, HEPATIC #### [address] Cepheid COVID PCR Negativeon 05-16-2023 SARS-CoV-2 (COVID-19) RNA JUANA+probe Ql (Unsp spec) Negative Normal Negative [facility] Comment on above: Result Comment: This is a duplicate Cepheid Xpert Xpress CoV-2/Flu/RSV Plus RNA by RT-PCR result to be used for statistical tracking purpose only. PERFORMED BY: [place] [address] PATHOLOGIST [employer] JL PERKINS M.D. Performed By: #### B MP, LIPASE, CBC, PT, PTT, HEPATIC #### [address] Chloride [Moles/volume] in S phoebe or PlasmaOrdered By: Tate Marcial on 05-16-2023 Chloride [Moles/Vol] 107 mmol/L Normal 98-107 [facility] Comment on above: Performed By: #### B MP, LIPASE, CBC, PT, PTT, HEPATIC #### [address] Complete Blood Count Auto Di ffon 05-16-2023 Mean Corpuscular HGB Conc 33.1 g/dL Normal 32.0-35.0 [facility] Comment on above: Performed By: #### B MP, LIPASE, CBC, PT, PTT, HEPATIC #### [address] Monocytes/100 WBC (Bld) 21.09 % High 0.00-20.00 [facility] Comment on above: Result Comment: For adults in ED, MDW > 20.0 may be associated with a higher risk of sepsis during the first 12 hrs of hospital admission Performed By: #### B MP, LIPASE, CBC, PT, PTT, HEPATIC #### [address] NRBC% 0.1 /100{WBC} Normal 0-0.5 [facility] Comment on above: Performed By: #### B MP, LIPASE, CBC, PT, PTT, HEPATIC #### [address] Creatinine [Mass/volume] in Serum or PlasmaOrdered By: Tate Marcial on 05-16-2023 Creatinine [Mass/Vol] 0.67 mg/dL Normal 0.60-1.20 [facility] Comment on above: Performed By: #### B MP, LIPASE, CBC, PT, PTT, HEPATIC #### [place] [address] [place] Dipstick and Microscopicon 0 05-16-2023 Appearance (U) Clear Normal Clear [facility] Comment on above: Order Comment: Name Collection Type:: Straight Catheter Performed By: #### A DDONUAPLUS UHCG #### [place] [address] [place] Bacteria,Urine None Seen Normal None Seen [facility] Comment on above: Order Comment: Name Collection Type:: Straight Catheter Performed By: #### A DDONUAPLUS, UHCG #### [place] [address] [place] Bilirubin,Urine Negative Normal Negative [facility] Comment on above: Order Comment: Name Collection Type:: Straight Catheter Performed By: #### A DDONUAPLUS UHCG #### [address] Glucose Ql (U) Normal Normal Normal [facility] Comment on above: Order Comment: Name Collection Type:: Straight Catheter Performed By: #### A DDONUAPLUS, UHCG #### [place] [address] [place] Hyaline Casts,Urine None Seen Normal 0-8 [facility] Comment on above: Order Comment: Name Collection Type:: Straight Catheter Performed By: #### A DDONUAPLUS, UHCG #### [place] [address] [place] Ketones Ql (U) Negative Normal Negative [facility] Comment on above: Order Comment: Name Collection Type:: Straight Catheter Performed By: #### A DDONUAPLUS, UHCG #### [address] Leukocyte esterase Test strip Ql (U) Negative Normal Negative [facility] Comment on above: Order Comment: Name Collection Type:: Straight Catheter Performed By: #### A DDONUAPLUS, UHCG #### [place] [address] [place] Nitrite,Urine Negative Normal Negative [facility] Comment on above: Order Comment: Name Collection Type:: Straight Catheter Performed By: #### A DDONUAPLUS, UHCG #### [address] Occult Blood,Urine 1+ High Negative [facility] Comment on above: Order Comment: Name Collection Type:: Straight Catheter Performed By: #### A DDONUAPLUS, UHCG #### [place] [address] [place] Protein,Urine Negative Normal Negative [facility] Comment on above: Order Comment: Name Collection Type:: Straight Catheter Performed By: #### A DDONUAPLUS, UHCG #### [place] [address] [place] RBC,Urine 5-9 High 0-4 [facility] Comment on above: Order Comment: Name Collection Type:: Straight Catheter Performed By: #### A DDONUAPLUS, UHCG #### [place] [address] [place] Specificy [place],Urine > 1.050 High 1.001-1.03 0 [facility] Comment on above: Order Comment: Name Collection Type:: Straight Catheter Performed By: #### A DDONUAPLUS, UHCG #### [place] [address] [place] Squamous Epithelial Cell,Urine 5-9 High 0-2 [facility] Comment on above: Order Comment: Name Collection Type:: Straight Catheter Performed By: #### A DDONUAPLUS, UHCG #### [address] Urobilinogen,Urine Normal Normal Normal [facility] Comment on above: Order Comment: Name Collection Type:: Straight Catheter Performed By: #### A DDONUAPLUS, CG #### [facility] [address] [address] WBC,Urine 10-19 High 0-4 [facility] Comment on above: Order Comment: Name Collection Type:: Straight Catheter Performed By: #### A DDONUAPLUS, CG #### [address] Erythrocyte distribution wid th [Ratio] by Automated countOrdered By: Tate Marcial on 05-16-2023 Erythrocyte distribution width (RBC) [Ratio] 12.4 % Normal 11.9-15.3 [facility] Comment on above: Performed By: #### B MP, LIPASE, CBC, PT, PTT, HEPATIC #### [address] Erythrocytes [#/volume] in B lood by Automated countOrdered By: Tate Marcial on 05-16-2023 RBC (Bld) [#/Vol] 4.24 10*6/uL Normal 3.60-5.00 [facility] Comment on above: Performed By: #### B MP, LIPASE, CBC, PT, PTT, HEPATIC #### [address] Glucose [Mass/volume] in Ser um or PlasmaOrdered By: Tate Marcial on 05-16-2023 Glucose [Mass/Vol] 114 mg/dL High 70-[address] [facility] Comment on above: ADA recommended refe rence rangeRandom Glucose Reference Range is dependent on time and content of last meal. Glucose of more than 200 mg/dL in a nonstressed, ambulatory subject supports the diagnosis of Diabetes Mellitus. Result Comment: [place] om Glucose Reference Range is dependent on time and content of last meal. Glucose of more than 200 mg/dL in a nonstressed, ambulatory subject supports the diagnosis of Diabetes Mellitus. ADA recommended reference range Performed By: #### B MP, LIPASE, CBC, PT, PTT, HEPATIC #### [address] HCG ( test) IA.rapi d Ql (U)Ordered By: Tate Marcial on 05-16-2023 HCG ( test) Ql (U) Negative [facility] HCG,Urineon 05-16-2023 Beta HCG ( test) Ql (U) Negative Normal [facility] Comment on above: Order Comment: Name Collection Type:: Straight Catheter Result Comment: PERF ORMED BY: [place] [address] PATHOLOGIST [employer] JL PERKINS M.D. Performed By: #### A DDONUAPLUS, [facility] #### [address] Hematocrit [Volume Fraction] of Blood by Automated countOrdered By: Tate Marcial on 05-16-2023 Hematocrit (Bld) [Volume fraction] 37.4 % Normal 34.0-46.4 [facility] Comment on above: Performed By: #### B MP, LIPASE, CBC, PT, PTT, HEPATIC #### [address] Hemoglobin [Mass/volume] in BloodOrdered By: Tate Marcial on 05-16-2023 Hemoglobin (Bld) [Mass/Vol] 12.4 g/dL Normal 11.8-15.4 [facility] Comment on above: Performed By: #### B MP, LIPASE, CBC, PT, PTT, HEPATIC #### [address] Hepatic Panelon 05-16-2023 Albumin [Mass/Vol] 4.1 g/dL Normal 3.5-5.7 [facility] Comment on above: Performed By: #### B MP, LIPASE, CBC, PT, PTT, HEPATIC #### [address] Bilirubin,Indirect 0.3 mg/dL Normal [facility] Comment on above: Performed By: #### B MP, LIPASE, CBC, PT, PTT, HEPATIC #### [address] Bilirubin.indirect [Mass/Vol] 0.10 mg/dL Normal 0.03-0.18 [facility] Comment on above: Performed By: #### B MP, LIPASE, CBC, PT, PTT, HEPATIC #### [address] Ketones Auto test strip (U) [Mass/Vol]Ordered By: Tate Marcial on 05-16-2023 Ketones (U) [Mass/Vol] Negative Negative [facility] - UrinalysisOrder ed By: Tate Marcial on 05-16-2023 Hyaline casts LM Ql (Urine sed) None seen [LPF] 0-8 [facility] Leukocytes [#/volume] correc rachelle for nucleated erythrocytes in Blood by Automated counOrdered By: Tate Marcial on 05-16-2023 WBC corrected for nucl RBC Auto (Bld) [#/Vol] 13.0 10*3/uL 3.8-11.6 [facility] Leukocytes [#/volume] in Blo od by Automated countOrdered By: Tate Marcial on 05-16-2023 WBC (Bld) [#/Vol] 13.0 10*3/uL High 3.8-11.6 [facility] Comment on above: Performed By: #### B MP, LIPASE, CBC, PT, PTT, HEPATIC #### [facility] [address] [place] [address] Lipase [Enzymatic activity/v olume] in Serum or PlasmaOrdered By: Tate Marcial on 05-16-2023 Lipase [Catalytic activity/Vol] 8.0 U/L Low 11.0-82.0 [facility] Comment on above: Result Comment: PERF ORMED BY: [place] [address] PATHOLOGIST [employer] JL PERKINS M.D. Performed By: #### B MP, LIPASE, CBC, PT, PTT, HEPATIC #### [address] Lymphocytes [#/volume] in Bl ood by Automated countOrdered By: Tate Marcial on 05-16-2023 Lymphocytes (Bld) [#/Vol] 1.8 10*3/uL Normal 1.00-4.8 [facility] Comment on above: Performed By: #### B MP, LIPASE, CBC, PT, PTT, HEPATIC #### [facility] [address] Lymphocytes/100 leukocytes i n Blood by Automated countOrdered By: Tate Marcial on 05-16-2023 Lymphocytes/100 WBC (Bld) 14.1 % Normal . [facility] Comment on above: Performed By: #### B MP, LIPASE, CBC, PT, PTT, HEPATIC #### [facility] [address] MCH [Entitic mass] by Automa rachelle countOrdered By: Tate Marcial on 05-16-2023 MCH (RBC) [Entitic mass] 29.2 pg Normal 24.7-34.3 [facility] Comment on above: Performed By: #### B MP, LIPASE, CBC, PT, PTT, HEPATIC #### [facility] [address] [place] [address] MCHC Auto (RBC) [Mass/Vol]Or dered By: Tate Marcial on 05-16-2023 MCHC (RBC) [Mass/Vol] 33.1 g/dL 32.0-35.0 [facility] MCV [Entitic volume] by Auto mated countOrdered By: Tate Marcial on 05-16-2023 MCV (RBC) [Entitic vol] 88.3 fL Normal 80-100 [facility] Comment on above: Performed By: #### B MP, LIPASE, CBC, PT, PTT, HEPATIC #### [facility] [address] [place] [address] Monocyte distribution width [Entitic volume] in Blood by AutomatedOrdered By: Tate Marcial on 05-16-2023 Monocyte distribution width Auto (Bld) [Entitic vol] 21.09 % 0.00-20.00 [facility] Comment on above: For adults in ED, MD W > 20.0 may be associated with a higher risk of sepsis during the first 12 hrs of hospital admission Neutrophils [#/volume] in Bl ood by Automated countOrdered By: Tate Marcial on 05-16-2023 Neutrophils (Bld) [#/Vol] 9.9 10*3/uL High 1.8-7.7 [facility] Comment on above: Performed By: #### B MP, LIPASE, CBC, PT, PTT, HEPATIC #### [facility] [address] Nitrite Test strip Ql (U)Ord ered By: Tate Marcial on 05-16-2023 Nitrite Ql (U) Negative Negative [facility] No Panel InformationOrdered By: Tate Marcial on 05-16-2023 Estimated GFR (CKD-EPI) > 60.0 mL/Min [facility] Creatinine Clearance (Chem 119.04 [facility] Nucleated erythrocytes [Pres ence] in Blood by Automated countOrdered By: Tate Marcial on 05-16-2023 Nucleated RBC Auto Ql (Bld) 0.1 /100{WBC} 0-0.5 [facility] Platelet mean volume [Entiti c volume] in Blood by Automated countOrdered By: Tate Marcial on 05-16-2023 Platelet mean volume (Bld) [Entitic vol] 7.3 fL Normal 6.3-10.7 [facility] Comment on above: Performed By: #### B MP, LIPASE, CBC, PT, PTT, HEPATIC #### [facility] [address] [place] [address] [place] Platelets [#/volume] in Bloo d by Automated countOrdered By: Tate Marcial on 05-16-2023 Platelets (Bld) [#/Vol] 249 10*3/uL Normal 150-450 [facility] Comment on above: Performed By: #### B MP, LIPASE, CBC, PT, PTT, HEPATIC #### [facility] [address] [place] [address] [place] Potassium [Moles/volume] in Serum or PlasmaOrdered By: Tate Marcial on 05-16-2023 Potassium [Moles/Vol] 3.7 mmol/L Normal 3.5-5.1 [facility] Comment on above: Performed By: #### B MP, LIPASE, CBC, PT, PTT, HEPATIC #### [address] Protein Auto test strip (U) [Mass/Vol]Ordered By: Tate Marcial on 05-16-2023 Protein (U) [Mass/Vol] Negative Negative [facility] Protein [Mass/volume] in Ser um or PlasmaOrdered By: Tate Marcial on 05-16-2023 Protein [Mass/Vol] 7.5 g/dL Normal 6.4-8.[address] [facility] Comment on above: Performed By: #### B MP, LIPASE, CBC, PT, PTT, HEPATIC #### [address] Serum globulin measurement b y calculation (mass/volume)Ordered By: Tate Marcial on 05-16-2023 Globulin (S) [Mass/Vol] 3.4 g/dL Normal [facility] Comment on above: Performed By: #### B MP, LIPASE, CBC, PT, PTT, HEPATIC #### [address] Serum or plasma albumin/glob ulin mass ratioOrdered By: Tate Marcial on 05-16-2023 Albumin/Globulin [Mass ratio] 1.2 {ratio} [facility] Comment on above: Performed By: #### B MP, LIPASE, CBC, PT, PTT, HEPATIC #### [address] Serum or plasma anion gap de terminationOrdered By: Tate Marcial on 05-16-2023 Anion gap [Moles/Vol] 12.0 mmol/L Normal 6.0-15.0 [facility] Comment on above: Performed By: #### B MP, LIPASE, CBC, PT, PTT, HEPATIC #### [address] Serum or plasma non-glucuron idated bilirubin measurement (mass/volume)Ordered By: Tate Marcial on 05-16-2023 Bilirubin.indirect [Mass/Vol] 0.3 mg/dL [facility] Sodium [Moles/volume] in Ser um or PlasmaOrdered By: Tate Marcial on 05-16-2023 Sodium [Moles/Vol] 139 mmol/L Normal 136-[address] [facility] Comment on above: Performed By: #### B MP, LIPASE, CBC, PT, PTT, HEPATIC #### [facility] [address] Specific gravity Auto test s trip (U) [Rel density]Ordered By: Tate Marcial on 05-16-2023 Specific gravity (U) [Rel density] > 1.050 1.001-1.03 0 [facility] Squamous epithelial cells de tection in urine sediment by light microscopyOrdered By: Tate Marcial on 05-16-2023 Epithelial cells.squamous LM Ql (Urine sed) 5-9 [HPF] 0-2 [facility] Urea nitrogen [Mass/volume] in Serum or PlasmaOrdered By: Tate Marcial on 05-16-2023 Urea nitrogen [Mass/Vol] 9 mg/dL Normal 7-25 [facility] Comment on above: Performed By: #### B MP, LIPASE, CBC, PT, PTT, HEPATIC #### [facility] [address] Urine bacteria detection by automated methodOrdered By: Tate Marcial on 05-16-2023 Bacteria Auto Ql (U) None seen None Seen [facility] Urine clarity by refractomet ry automatedOrdered By: Tate Marcial on 05-16-2023 Clarity Refractometry automated (U) Clear Clear [facility] Urine glucose measurement by automated test strip (mass/volume)Ordered By: Tate Marcial on 05-16-2023 Glucose Auto test strip (U) [Mass/Vol] Normal mg/dL Normal [facility] Urine hemoglobin detection b y automated test stripOrdered By: Tate Marcial on 05-16-2023 Hemoglobin Auto test strip Ql (U) 1+ Negative [facility] Urine leukocyte esterase det ection by automated test stripOrdered By: Tate Marcial on 05-16-2023 Leukocyte esterase Auto test strip Ql (U) Negative Negative [facility] Urine pH measurement by auto mated test stripOrdered By: Tate Marcial on 05-16-2023 pH (U) 6.5 [pH] Normal 5.0-9.0 [facility] Comment on above: Order Comment: Name Collection Type:: Straight Catheter Performed By: #### A DDHECTORBELINDA, [facility] #### [address] Urobilinogen Auto test strip (U) [Mass/Vol]Ordered By: Tate Marcial on 05-16-2023 Urobilinogen (U) [Mass/Vol] Normal mg/dL Normal [facility] Alanine aminotransferase [En zymatic activity/volume] in Serum or PlasmaOrdered By: Elpidio Myles on 05-12-2023 ALT [Catalytic activity/Vol] 11 U/L Normal 7-52 [facility] Comment on above: Performed By: #### B MP, LIPASE, CBC, PT, PTT, HEPATIC #### [place] [address] [place] Albumin [Mass/volume] in Ser um or Plasma by Bromocresol green (BCG) dye binding methoOrdered By: Elpidio Myles on 05-12-2023 Albumin BCG dye [Mass/Vol] 4.2 g/dL 3.5-5.7 [facility] Alkaline phosphatase [Enzyma tic activity/volume] in Serum or PlasmaOrdered By: Elpidio Myles on 05-12-2023 ALP [Catalytic activity/Vol] 99 U/L Normal 34-104 [facility] Comment on above: Performed By: #### B MP, LIPASE, CBC, PT, PTT, HEPATIC #### [facility] [address] [place] [address] Aspartate aminotransferase [ Enzymatic activity/volume] in Serum or PlasmaOrdered By: Elpidio Myles on 05-12-2023 AST [Catalytic activity/Vol] 12 U/L Low 13-39 [facility] Comment on above: Result Comment: PERF ORMED BY: [place] [address] PATHOLOGIST [employer] JL PERKINS M.D. Performed By: #### B MP, LIPASE, CBC, PT, PTT, HEPATIC #### [address] [place] [address] [place] Automated basophil %Ordered By: Elpidio Myles on 05-12-2023 Basophils/100 WBC (Bld) 0.6 % Normal . [facility] Comment on above: Performed By: #### B MP, LIPASE, CBC, PT, PTT, HEPATIC #### [address] Automated basophil countOrde red By: Elpidio Myles on 05-12-2023 Basophils (Bld) [#/Vol] 0.1 10*3/uL Normal 0.0-0.2 [facility] Comment on above: Result Comment: PERF ORMED BY: [place] [address] PATHOLOGIST [employer] JL PERKINS M.D. Performed By: #### B MP, LIPASE, CBC, PT, PTT, HEPATIC #### [address] Automated blood monocyte cou ntOrdered By: Elpidio Myles on 05-12-2023 Monocytes (Bld) [#/Vol] 0.8 10*3/uL Normal 0.0-0.8 [facility] Comment on above: Performed By: #### B MP, LIPASE, CBC, PT, PTT, HEPATIC #### [address] Automated eosinophil %Ordere d By: Elpidio Myles on 05-12-2023 Eosinophils/100 WBC (Bld) 1.7 % Normal . [facility] Comment on above: Performed By: #### B MP, LIPASE, CBC, PT, PTT, HEPATIC #### [address] Automated eosinophil countOr dered By: Elpidio Myles on 05-12-2023 Eosinophils (Bld) [#/Vol] 0.2 10*3/uL Normal 0.0-0.45 [facility] Comment on above: Performed By: #### B MP, LIPASE, CBC, PT, PTT, HEPATIC #### [address] Automated erythrocytes count in urine sediment (number/area)Ordered By: Elpidio Myles on 05-12-2023 RBC Auto (Urine sed) [#/Area] 5-9 [HPF] 0-4 [facility] Automated leukocytes count i n urine sediment (number/area)Ordered By: Elpidio Myles on 05-12-2023 WBC Auto (Urine sed) [#/Area] 5-9 [HPF] 0-4 [facility] Automated monocyte %Ordered By: Elpidio Myles on 05-12-2023 Monocytes/100 WBC (Bld) 6.1 % Normal . [facility] Comment on above: Performed By: #### B MP, LIPASE, CBC, PT, PTT, HEPATIC #### [facility] [address] Automated neutrophil %Ordere d By: Elpidio Myles on 05-12-2023 Neutrophils/100 WBC (Bld) 69.8 % Normal . [facility] Comment on above: Performed By: #### B MP, LIPASE, CBC, PT, PTT, HEPATIC #### [address] Automated urine color determ inationOrdered By: Elpidio Myles on 05-12-2023 Color (U) Yellow Normal Yellow [facility] Comment on above: Order Comment: Name Collection Type:: Clean-Voided Midstream Performed By: #### B MP, LIPASE, CBC, PT, PTT, HEPATIC #### [address] Basic Metabolic Panelon 04-26 Anion Gap Normal 6.0-15.0 [facility] Comment on above: Result Comment: Spec imen hemolyzed, redraw requested Performed By: #### B MP, LIPASE, CBC, PT, PTT, HEPATIC #### [facility] [address] [place] [address] [place] Creatinine Clr Calc Pharmacy 116.96 Normal [facility] Comment on above: Performed By: #### B MP, LIPASE, CBC, PT, PTT, HEPATIC #### [address] GFR/1.73 sq M.predicted MDRD (S/P/Bld) [Vol rate/Area] mL/min/{1.73_m2} Normal [facility] Comment on above: Performed By: #### B MP, LIPASE, CBC, PT, PTT, HEPATIC #### [facility] [address] [place] [address] Potassium Normal 3.5-5.1 [facility] Comment on above: Result Comment: Spec imen hemolyzed, redraw requested Performed By: #### B MP, LIPASE, CBC, PT, PTT, HEPATIC #### [address] Bilirubin Test strip Ql (U)O rdered By: Elpidio Myles on 05-12-2023 Bilirubin Ql (U) Negative Negative [facility] Bilirubin.direct [Mass/volum e] in Serum or PlasmaOrdered By: Elpidio Myles on 05-12-2023 Bilirubin.direct [Mass/Vol] 0.10 mg/dL 0.03-0.18 [facility] Bilirubin.total [Mass/volume ] in Serum or PlasmaOrdered By: Elpidio Myles on 05-12-2023 Bilirubin [Mass/Vol] 0.6 mg/dL Normal 0.3-1.0 [facility] Comment on above: Performed By: #### B MP, LIPASE, CBC, PT, PTT, HEPATIC #### [address] abdomen pelvis w conon CT abdomen pelvis w con [place] [address] CT Scan Report Signed Patient: Tracie Samuels MR#: [id number] : 1990 Acct:[id number] Age/Sex: 33 / F ADM Date: 05/12/23 Loc: ER Room: Type: [facility] ER Attending Dr: Copies to: Elpidio Myles PA-C Ordering Provider: Elpidio Myles PA-C Date of Service: 05/12/23 CT/CT abdomen pelvis w con: Abdominal Pain CT abdomen pelvis w con 05/12/2023 2:12 PM SIGNS AND SYMPTOMS: Nausea and vomiting, generalized abdominal pain TECHNIQUE: Multidetector ct axial images of the abdomen and pelvis were obtained with IV contrast. Multiplanar reformats were performed and reviewed to further define anatomy and possible pathology. CT was performed with one or more of the following dose reduction techniques: Automated exposure control, adjustment of the mA and/or kV according to patient size, or use of iterative reconstruction technique. COMPARISON: 07/19/2018 FINDINGS: Lower Chest: Within normal limits. ABDOMEN: Liver: Within normal limits. Bile Ducts: Normal caliber. Gallbladder: Previously removed Pancreas: Within normal limits. Spleen: Within normal limits. Adrenals: Within normal limits. Kidneys: There is a 1 to 2 mm nonobstructing stone in the left renal collecting system. No hydronephrosis. Pelvis: Reproductive Organs: There is a heterogeneous 4 cm presumably hemorrhagic cyst in the right adnexa. This is new compared to the prior exam. Ureters: Within normal limits. Bladder: Within normal limits. Bowel: Normal caliber. There is a normal appendix in the right lower quadrant. Mesenteric Lymph Nodes: No enlarged mesenteric lymph nodes. Peritoneum: No ascites or free air, no fluid collection. Vessels: within normal limits Retroperitoneum: Within normal limits. Abdominal Wall: Within normal limits. Bones: Within normal limits. CT/CT abdomen pelvis w con IMPRESSION: There is a heterogeneous 4 cm presumably hemorrhagic cyst in the right adnexa. This is new compared to the prior exam. There is a 1 to 2 mm nonobstructing stone in the left renal collecting system. No hydronephrosis. No bowel obstruction or obstructive uropathy. Impression dictated by: Kristopher Sun M.D.05/12/2023 5:44 PM Dictation Location: [place] [address] Transcribed By: [facility] 05/12/23 174 Dictated By: Kristopher Sun II, MD 05/12/23 1735 Signed By: 05/12/23 174 Normal [facility] Calcium [Mass/volume] in Ser um or PlasmaOrdered By: Elpidio Myles on 05-12-2023 Calcium [Mass/Vol] 9.0 mg/dL Normal 8.6-10.[address] [facility] Comment on above: Performed By: #### B MP, LIPASE, CBC, PT, PTT, HEPATIC #### [address] Carbon dioxide, total [Moles /volume] in Serum or PlasmaOrdered By: Elpidio Myles on 05-12-2023 CO2 [Moles/Vol] 26.7 mmol/L Normal 21.0-31.0 [facility] Comment on above: Performed By: #### B MP, LIPASE, CBC, PT, PTT, HEPATIC #### [address] Chloride [Moles/volume] in S phoebe or PlasmaOrdered By: Elpidio Myles on 05-12-2023 Chloride [Moles/Vol] 106 mmol/L Normal 98-107 [facility] Comment on above: Performed By: #### B MP, LIPASE, CBC, PT, PTT, HEPATIC #### [address] Complete Blood Count Auto Di ffon 05-12-2023 Mean Corpuscular HGB Conc 32.5 g/dL Normal 32.0-35.0 [facility] Comment on above: Performed By: #### B MP, LIPASE, CBC, PT, PTT, HEPATIC #### [address] Monocytes/100 WBC (Bld) 18.29 % Normal 0.00-20.00 [facility] Comment on above: Performed By: #### B MP, LIPASE, CBC, PT, PTT, HEPATIC #### [address] NRBC% 0.1 /100{WBC} Normal 0-0.5 [facility] Comment on above: Performed By: #### B MP, LIPASE, CBC, PT, PTT, HEPATIC #### [place] [address] [place] Creatinine [Mass/volume] in Serum or PlasmaOrdered By: Elpidio Myles on 05-12-2023 Creatinine [Mass/Vol] 0.68 mg/dL Normal 0.60-1.20 [facility] Comment on above: Performed By: #### B MP, LIPASE, CBC, PT, PTT, HEPATIC #### [facility] [address] [place] [address] [place] Dipstick and Microscopicon 0 05-12-2023 Appearance (U) Clear Normal Clear [facility] Comment on above: Order Comment: Name Collection Type:: Clean-Voided Midstream Performed By: #### B MP, LIPASE, CBC, PT, PTT, HEPATIC #### [facility] [address] Bacteria,Urine None Seen Normal None Seen [facility] Comment on above: Order Comment: Name Collection Type:: Clean-Voided Midstream Performed By: #### B MP, LIPASE, CBC, PT, PTT, HEPATIC #### [address] Bilirubin,Urine Negative Normal Negative [facility] Comment on above: Order Comment: Name Collection Type:: Clean-Voided Midstream Performed By: #### B MP, LIPASE, CBC, PT, PTT, HEPATIC #### [address] Glucose Ql (U) Normal Normal Normal [facility] Comment on above: Order Comment: Name Collection Type:: Clean-Voided Midstream Performed By: #### B MP, LIPASE, CBC, PT, PTT, HEPATIC #### [address] Hyaline Casts,Urine 0-8 Normal 0-8 [facility] Comment on above: Order Comment: Name Collection Type:: Clean-Voided Midstream Performed By: #### B MP, LIPASE, CBC, PT, PTT, HEPATIC #### [place] [id number] [facility] Ketones Ql (U) Negative Normal Negative [facility] Comment on above: Order Comment: Name Collection Type:: Clean-Voided Midstream Performed By: #### B MP, LIPASE, CBC, PT, PTT, HEPATIC #### [place] [id number] [facility] Leukocyte esterase Test strip Ql (U) 1+ High Negative [facility] Comment on above: Order Comment: Name Collection Type:: Clean-Voided Midstream Performed By: #### B MP, LIPASE, CBC, PT, PTT, HEPATIC #### [place] [address] [place] Nitrite,Urine Negative Normal Negative [facility] Comment on above: Order Comment: Name Collection Type:: Clean-Voided Midstream Performed By: #### B MP, LIPASE, CBC, PT, PTT, HEPATIC #### [place] [address] [place] Occult Blood,Urine Trace High Negative [facility] Comment on above: Order Comment: Name Collection Type:: Clean-Voided Midstream Performed By: #### B MP, LIPASE, CBC, PT, PTT, HEPATIC #### [place] [address] [place] Protein,Urine Negative Normal Negative [facility] Comment on above: Order Comment: Name Collection Type:: Clean-Voided Midstream Performed By: #### B MP, LIPASE, CBC, PT, PTT, HEPATIC #### [place] [address] [place] RBC,Urine 5-9 High 0-4 [facility] Comment on above: Order Comment: Name Collection Type:: Clean-Voided Midstream Performed By: #### B MP, LIPASE, CBC, PT, PTT, HEPATIC #### [address] Specificy [place],Urine 1.011 Normal 1.001-1.03 0 [facility] Comment on above: Order Comment: Name Collection Type:: Clean-Voided Midstream Performed By: #### B MP, LIPASE, CBC, PT, PTT, HEPATIC #### [place] [address] [place] Squamous Epithelial Cell,Urine 5-9 High 0-2 [facility] Comment on above: Order Comment: Name Collection Type:: Clean-Voided Midstream Performed By: #### B MP, LIPASE, CBC, PT, PTT, HEPATIC #### [place] [address] [place] Urobilinogen,Urine Normal Normal Normal [facility] Comment on above: Order Comment: Name Collection Type:: Clean-Voided Midstream Performed By: #### B MP, LIPASE, CBC, PT, PTT, HEPATIC #### [address] WBC,Urine 5-9 High 0-4 [facility] Comment on above: Order Comment: Name Collection Type:: Clean-Voided Midstream Performed By: #### B MP, LIPASE, CBC, PT, PTT, HEPATIC #### [address] Erythrocyte distribution wid th [Ratio] by Automated countOrdered By: Elpidio Myles on 05-12-2023 Erythrocyte distribution width (RBC) [Ratio] 12.5 % Normal 11.9-15.3 [facility] Comment on above: Performed By: #### B MP, LIPASE, CBC, PT, PTT, HEPATIC #### [address] Erythrocytes [#/volume] in B lood by Automated countOrdered By: Elpidio Myles on 05-12-2023 RBC (Bld) [#/Vol] 4.45 10*6/uL Normal 3.60-5.00 [facility] Comment on above: Performed By: #### B MP, LIPASE, CBC, PT, PTT, HEPATIC #### [address] Glucose [Mass/volume] in Ser um or PlasmaOrdered By: Elpidio Myles on 05-12-2023 Glucose [Mass/Vol] 86 mg/dL Normal 70-[address] [facility] Comment on above: ADA recommended refe rence rangeRandom Glucose Reference Range is dependent on time and content of last meal. Glucose of more than 200 mg/dL in a nonstressed, ambulatory subject supports the diagnosis of Diabetes Mellitus. Result Comment: [place] om Glucose Reference Range is dependent on time and content of last meal. Glucose of more than 200 mg/dL in a nonstressed, ambulatory subject supports the diagnosis of Diabetes Mellitus. ADA recommended reference range Performed By: #### B MP, LIPASE, CBC, PT, PTT, HEPATIC #### [address] HCG ( test) IA.rapi d Ql (U)Ordered By: Elpidio Myles on 05-12-2023 HCG ( test) Ql (U) Negative [facility] HCG,Urineon 05-12-2023 Beta HCG ( test) Ql (U) Negative Normal [facility] Comment on above: Order Comment: Name Collection Type:: Clean-Voided Midstream Result Comment: PERF ORMED BY: [place] [address] PATHOLOGIST [employer] JL PERKINS M.D. Performed By: #### B MP, LIPASE, CBC, PT, PTT, HEPATIC #### [address] Hematocrit [Volume Fraction] of Blood by Automated countOrdered By: Elpidio Myles on 05-12-2023 Hematocrit (Bld) [Volume fraction] 39.5 % Normal 34.0-46.4 [facility] Comment on above: Performed By: #### B MP, LIPASE, CBC, PT, PTT, HEPATIC #### [address] Hemoglobin [Mass/volume] in BloodOrdered By: Elpidio Myles on 05-12-2023 Hemoglobin (Bld) [Mass/Vol] 12.8 g/dL Normal 11.8-15.4 [facility] Comment on above: Performed By: #### B MP, LIPASE, CBC, PT, PTT, HEPATIC #### [address] Hepatic Panelon 05-12-2023 Albumin [Mass/Vol] 4.2 g/dL Normal 3.5-5.7 [facility] Comment on above: Performed By: #### B MP, LIPASE, CBC, PT, PTT, HEPATIC #### [address] Aspartate Amino Transferase Normal 13-39 [facility] Comment on above: Result Comment: Spec imen hemolyzed, redraw requested Performed By: #### B MP, LIPASE, CBC, PT, PTT, HEPATIC #### [facility] [address] Bilirubin,Direct Normal 0.03-0.18 [facility] Comment on above: Result Comment: Spec imen hemolyzed, redraw requested Performed By: #### B MP, LIPASE, CBC, PT, PTT, HEPATIC #### [facility] [address] Bilirubin,Indirect Normal [facility] Comment on above: Result Comment: Spec imen hemolyzed, redraw requested Performed By: #### B MP, LIPASE, CBC, PT, PTT, HEPATIC #### [facility] [address] Ketones Auto test strip (U) [Mass/Vol]Ordered By: Elpidio Myles on 05-12-2023 Ketones (U) [Mass/Vol] Negative Negative [facility] - UrinalysisOrder ed By: Elpidio Mylse on 05-12-2023 Hyaline casts LM Ql (Urine sed) 0-8 [LPF] 0-8 [facility] Leukocytes [#/volume] correc rachelle for nucleated erythrocytes in Blood by Automated counOrdered By: Elpidio Myles on 05-12-2023 WBC corrected for nucl RBC Auto (Bld) [#/Vol] 13.1 10*3/uL 3.8-11.6 [facility] Leukocytes [#/volume] in Blo od by Automated countOrdered By: Elpidio Myles on 05-12-2023 WBC (Bld) [#/Vol] 13.1 10*3/uL High 3.8-11.6 [facility] Comment on above: Performed By: #### B MP, LIPASE, CBC, PT, PTT, HEPATIC #### [facility] [address] [place] [address] [place] Lipase [Enzymatic activity/v olume] in Serum or PlasmaOrdered By: Elpidio Myles on 05-12-2023 Lipase [Catalytic activity/Vol] 10.0 U/L Low 11.0-82.0 [facility] Comment on above: Result Comment: PERF ORMED BY: [place] [address] PATHOLOGIST [employer] JL PERKINS M.D. Performed By: #### B MP, LIPASE, CBC, PT, PTT, HEPATIC #### [address] Lymphocytes [#/volume] in Bl ood by Automated countOrdered By: Elpidio Myles on 05-12-2023 Lymphocytes (Bld) [#/Vol] 2.9 10*3/uL Normal 1.00-4.8 [facility] Comment on above: Performed By: #### B MP, LIPASE, CBC, PT, PTT, HEPATIC #### [address] Lymphocytes/100 leukocytes i n Blood by Automated countOrdered By: Elpidio Myles on 05-12-2023 Lymphocytes/100 WBC (Bld) 21.8 % Normal . [facility] Comment on above: Performed By: #### B MP, LIPASE, CBC, PT, PTT, HEPATIC #### [address] MCH [Entitic mass] by Automa rachelle countOrdered By: Elpidio Myles on 05-12-2023 MCH (RBC) [Entitic mass] 28.9 pg Normal 24.7-34.3 [facility] Comment on above: Performed By: #### B MP, LIPASE, CBC, PT, PTT, HEPATIC #### [address] MCHC Auto (RBC) [Mass/Vol]Or dered By: Elpidio Myles on 05-12-2023 MCHC (RBC) [Mass/Vol] 32.5 g/dL 32.0-35.0 [facility] MCV [Entitic volume] by Auto mated countOrdered By: Elpidio Myles on 05-12-2023 MCV (RBC) [Entitic vol] 88.7 fL Normal 80-100 [facility] Comment on above: Performed By: #### B MP, LIPASE, CBC, PT, PTT, HEPATIC #### [address] Monocyte distribution width [Entitic volume] in Blood by AutomatedOrdered By: Elpidio Myles on 05-12-2023 Monocyte distribution width Auto (Bld) [Entitic vol] 18.29 % 0.00-20.00 [facility] Neutrophils [#/volume] in Bl ood by Automated countOrdered By: Elpidio Myles on 05-12-2023 Neutrophils (Bld) [#/Vol] 9.1 10*3/uL High 1.8-7.7 [facility] Comment on above: Performed By: #### B MP, LIPASE, CBC, PT, PTT, HEPATIC #### [facility] [address] Nitrite Test strip Ql (U)Ord ered By: Elpidio Myles on 05-12-2023 Nitrite Ql (U) Negative Negative [facility] No Panel InformationOrdered By: Elpidio Myles on 05-12-2023 Estimated GFR (CKD-EPI) > 60.0 mL/Min [facility] Creatinine Clearance (Chem 116.96 [facility] Nucleated erythrocytes [Pres ence] in Blood by Automated countOrdered By: Elpidio Myles on 05-12-2023 Nucleated RBC Auto Ql (Bld) 0.1 /100{WBC} 0-0.5 [facility] Platelet mean volume [Entiti c volume] in Blood by Automated countOrdered By: Elpidio Myles on 05-12-2023 Platelet mean volume (Bld) [Entitic vol] 7.4 fL Normal 6.3-10.7 [facility] Comment on above: Performed By: #### B MP, LIPASE, CBC, PT, PTT, HEPATIC #### [facility] [address] [place] [address] [place] Platelets [#/volume] in Bloo d by Automated countOrdered By: Elpidio Myles on 05-12-2023 Platelets (Bld) [#/Vol] 254 10*3/uL Normal 150-450 [facility] Comment on above: Performed By: #### B MP, LIPASE, CBC, PT, PTT, HEPATIC #### [facility] [address] [place] [address] [place] Potassium [Moles/volume] in Serum or PlasmaOrdered By: Elpidio Myles on 05-12-2023 Potassium [Moles/Vol] 4.2 mmol/L Normal 3.5-5.1 [facility] Comment on above: Performed By: #### B MP, LIPASE, CBC, PT, PTT, HEPATIC #### [facility] [address] [place] [address] Protein Auto test strip (U) [Mass/Vol]Ordered By: Elpidio Myles on 05-12-2023 Protein (U) [Mass/Vol] Negative Negative [facility] Protein [Mass/volume] in Ser um or PlasmaOrdered By: Elpidio Myles on 05-12-2023 Protein [Mass/Vol] 7.9 g/dL Normal 6.4-8.[address] [facility] Comment on above: Performed By: #### B MP, LIPASE, CBC, PT, PTT, HEPATIC #### [facility] [address] [place] [address] Redraw Bilirubin,Directon Redraw Bilirubin,Direct 0.10 mg/dL Normal 0.03-0.18 [facility] Comment on above: Performed By: #### B MP, LIPASE, CBC, PT, PTT, HEPATIC #### [facility] [address] [place] [address] Serum globulin measurement b y calculation (mass/volume)Ordered By: Elpidio Myles on 05-12-2023 Globulin (S) [Mass/Vol] 3.7 g/dL [facility] Comment on above: Performed By: #### B MP, LIPASE, CBC, PT, PTT, HEPATIC #### [facility] [address] [place] [address] Serum or plasma albumin/glob ulin mass ratioOrdered By: Elpidio Myles on 05-12-2023 Albumin/Globulin [Mass ratio] 1.1 {ratio} [facility] Comment on above: Performed By: #### B MP, LIPASE, CBC, PT, PTT, HEPATIC #### [facility] [address] [place] [address] Serum or plasma anion gap de terminationOrdered By: Elpidio Myles on 05-12-2023 Anion gap [Moles/Vol] See comment 6.0-15.0 [facility] Comment on above: Specimen hemolyzed, redraw requested Serum or plasma non-glucuron idated bilirubin measurement (mass/volume)Ordered By: Elpidio Myles on 05-12-2023 Bilirubin.indirect [Mass/Vol] See comment [facility] Comment on above: Specimen hemolyzed, redraw requested Sodium [Moles/volume] in Ser um or PlasmaOrdered By: Elpidio Myles on 05-12-2023 Sodium [Moles/Vol] 139 mmol/L Normal 136-[address] [facility] Comment on above: Performed By: #### B MP, LIPASE, CBC, PT, PTT, HEPATIC #### [address] Specific gravity Auto test s trip (U) [Rel density]Ordered By: Elpidio Myles on 05-12-2023 Specific gravity (U) [Rel density] 1.011 1.001-1.03 0 [facility] Squamous epithelial cells de tection in urine sediment by light microscopyOrdered By: Elpidio Myles on 05-12-2023 Epithelial cells.squamous LM Ql (Urine sed) 5-9 [HPF] 0-2 [facility] Urea nitrogen [Mass/volume] in Serum or PlasmaOrdered By: Elpidio Myles on 05-12-2023 Urea nitrogen [Mass/Vol] 12 mg/dL Normal 7-25 [facility] Comment on above: Performed By: #### B MP, LIPASE, CBC, PT, PTT, HEPATIC #### [facility] [address] [place] [address] Urine Cultureon 05-12-2023 Bacteria identified Cx Nom (U) >100,000 colonies/ml mixed bacterial skin contaminants 2 Days PERFORMED BY: [place] [address] PATHOLOGIST [employer] JL PERKINS M.D. Normal [facility] Comment on above: Performed By: #### B MP, LIPASE, CBC, PT, PTT, HEPATIC #### [address] Urine bacteria detection by automated methodOrdered By: Elpidio Myles on 05-12-2023 Bacteria Auto Ql (U) None seen None Seen [facility] Urine clarity by refractomet ry automatedOrdered By: Elpidio Myles on 05-12-2023 Clarity Refractometry automated (U) Clear Clear [facility] Urine culture routineOrdered By: Elpidio Myles on 05-12-2023 Bacteria identified Cx Nom (U) 2 Days [facility] Urine glucose measurement by automated test strip (mass/volume)Ordered By: Elpidio Myles on 05-12-2023 Glucose Auto test strip (U) [Mass/Vol] Normal mg/dL Normal [facility] Urine hemoglobin detection b y automated test stripOrdered By: Elpidio Myles on 05-12-2023 Hemoglobin Auto test strip Ql (U) Trace Negative [facility] Urine leukocyte esterase det ection by automated test stripOrdered By: Elpidio Myles on 05-12-2023 Leukocyte esterase Auto test strip Ql (U) 1+ Negative [facility] Urine pH measurement by auto mated test stripOrdered By: Elpidio Myles on 05-12-2023 pH (U) 7.5 [pH] Normal 5.0-9.0 [facility] Comment on above: Order Comment: Name Collection Type:: Clean-Voided Midstream Performed By: #### B MP, LIPASE, CBC, PT, PTT, HEPATIC #### [address] Urobilinogen Auto test strip (U) [Mass/Vol]Ordered By: Elpidio Myles on 05-12-2023 Urobilinogen (U) [Mass/Vol] Normal mg/dL Normal [facility] MR CERVICAL SPINE WO CONTRAS Ton 05-08-2023 MR CERVICAL SPINE WO CONTRAST EXAMINATION: MR CERVICAL SPINE WO CONTRAST HISTORY: Cervical radiculopathy. Continued neck and right shoulder pain. TECHNIQUE: Routine cervical spine MR protocol without gadolinium. COMPARISON: None. RESULT: Limitations from motion. Within these limits: CERVICAL: Counting reference: Craniocervical junction. Anatomic Variants: None. Alignment: Alignment is anatomic. Craniocervical junction: Craniocervical junction is normal. Cord: The cervical spinal cord is within normal limits of signal intensity and morphology. Bone marrow signal/fracture: No evidence for acute or chronic fracture. No pathologic marrow infiltration. Cervical soft tissues: The paraspinal soft tissues are unremarkable. C2-C3: No significant canal or foraminal narrowing. C3-C4: No significant canal or foraminal narrowing. C4-C5: No significant canal or foraminal narrowing. C5-C6: Broad-based disc bulge. Endplate osteophytes. Facet/uncovertebral degenerative changes. Mild canal narrowing with moderate bilateral foraminal narrowing. C6-C7: Tiny disc bulge. Endplate osteophytes. Facet degenerative changes. No significant canal or foraminal narrowing. C7-T1: No significant canal or foraminal narrowing. Upper thoracic spine: Visualized upper thoracic canal and foramina are without significant narrowing. IMPRESSION: Degenerative changes cervical spine especially involving C5-C6. ELECTRONICALLY SIGNED BY: Angel Nicholson MD Normal Not Available [facility] US LOWER EXTREMITY VENO US DUPLEX RIGHTon 05-01-2023 VASC US LOWER EXTREMITY VENOUS DUPLEX RIGHT EXAM: VASC US LOWER EXTREMITY VENOUS DUPLEX RIGHT TECHNIQUE: RIGHT lower extremity venous duplex exam was performed. HISTORY: Right leg swelling. FINDINGS: The common femoral, femoral, deep femoral, popliteal and calf veins were evaluated for deep venous thrombosis. The veins were evaluated with color Doppler imaging, compression and augmentation if possible. No sonographic evidence of deep venous thrombosis. IMPRESSION: No sonographic evidence of deep venous thrombosis of the right lower extremity. ELECTRONICALLY SIGNED BY: aHrvey Francis DO Normal Not Available XR ankle RT min 3V*on 2023 XR ankle RT min 3V* [facility] Main [place] [address] [place] [address] XRay Report Signed Patient: Tracie Samuels MR#: [id number] 640 : 1990 Acct:[id number] Age/Sex: 33 / F ADM Date: 04/17/23 Loc: ER Room: Type: [facility] ER Attending Dr: Copies to: CARLOS Sullivan Ordering Provider: CARLOS Sullivan Date of Service: 04/17/23 XR/XR ankle RT min 3V*: Extremity Injury, Lower XR ankle RT min 3V* 04/17/2023 11:22 AM SIGNS AND SYMPTOMS: Right ankle pain after fall PROTOCOL: Frontal, lateral, and oblique radiographs of the right ankle COMPARISON: 06/07/2016 FINDINGS: The ankle mortise is preserved. There is no acute displaced fracture. There is nonspecific diffuse soft tissue swelling. Mild plantar surface calcaneal spurring is noted. XR/XR ankle RT min 3V* IMPRESSION: No fracture or dislocation. Nonspecific diffuse soft tissue swelling is noted. Impression dictated by: Kristopher Sun M.D.04/17/2023 11:51 AM Dictation Location: [place] [address] Transcribed By: OCTAVIANO 04/17/23 1151 Dictated By: Kristopher Sun II, MD 04/17/23 1149 Signed By: 04/17/23 1151 Normal [facility] XR lumbar spine min 4V*on XR lumbar spine min 4V* [place] [address] XRay Report Signed Patient: Tracie Samuels MR#: [id number] 640 : 1990 Acct:[id number] Age/Sex: 33 / F ADM Date: 04/17/23 Loc: ER Room: Type: [facility] ER Attending Dr: Copies to: CARLOS Sullivan Ordering Provider: CARLOS Sullivan Date of Service: 04/17/23 XR/XR lumbar spine min 4V*: Extremity Injury, Lower XR lumbar spine min 4V* 04/17/2023 11:22 AM SIGNS AND SYMPTOMS: Fall, low back pain PROTOCOLS: Frontal, lateral, and oblique radiographs of the lumbar spine COMPARISON: 08/19/2018 FINDINGS: The alignment, development and bony structures are normal. There is no fracture or destructive lesion. The disk spaces are well-preserved. There is mild anterior osteophyte formation at L3-L4 and L4-L5. The sacrum and sacroiliac joints are normal. Surgical clips are noted in the right upper quadrant consistent with prior cholecystectomy. Calcifications are noted in the pelvis similar to the prior exam. XR/XR lumbar spine min 4V* IMPRESSION: No fracture or subluxation. Minimal degenerative changes are noted as above. Impression dictated by: Kristopher Sun M.D.04/17/2023 11:49 AM Dictation Location: [facility]-07 Transcribed By: OCTAVIANO 04/17/23 1149 Dictated By: Kristopher Sun II, MD 04/17/23 1146 Signed By: 04/17/23 1149 Normal [facility] XR shoulder RT min 2V*on XR shoulder RT min 2V* [facility] Main [address] [address] XRay Report Signed Patient: Tracie Samuels MR#: [id number] 640 : 1990 Acct:[id number] Age/Sex: 33 / F ADM Date: 04/17/23 Loc: ER Room: Type: [facility] ER Attending Dr: Copies to: CARLOS Sullivan Ordering Provider: CARLOS Sullivan Date of Service: 04/17/23 XR/XR shoulder RT min 2V*: Extremity Injury, Lower XR shoulder RT min 2V* 04/17/2023 11:22 AM SIGNS AND SYMPTOMS: Fall, right shoulder pain posteriorly PROTOCOL: Frontal, Grashey, and scapular Y views of the right shoulder COMPARISON: 04/06/2023 FINDINGS: There is mild narrowing of the glenohumeral joint. There is mild degenerative changes in the acromioclavicular joint. There is no fracture or dislocation. Visualized right hemithorax is grossly intact. XR/XR shoulder RT min 2V* IMPRESSION: No fracture or dislocation. Mild degenerative changes are noted, as above. This is similar to the prior exam. Impression dictated by: Kristopher Sun M.D.04/17/2023 11:51 AM Dictation Location: [facility]--07 Transcribed By: OCTAVIANO 04/17/23 1151 Dictated By: Kristopher Sun II, MD 04/17/23 1151 Signed By: 04/17/23 1151 Marleni [facility] XR thoracic spine 3V*on XR thoracic spine 3V* [address] [address] XRay Report Signed Patient: Tracie Samuels MR#: [id number] 640 : 1990 Acct:[id number] Age/Sex: 33 / F ADM Date: 04/06/23 Loc: ER Room: Type: [facility] ER Attending Dr: Copies to: CARLOS Sullivan Ordering Provider: CARLOS Sullivan Date of Service: 04/06/23 XR/XR thoracic spine 3V*: Fall ([id number]) XR/XR cervical spine 5V*: Fall ([id number]) XR/XR shoulder RT min 2V*: Fall CLINICAL DATA: Right-sided neck pain radiating to the shoulder and arm for the past 6 months. No reported injury. CERVICAL SPINE - 5 views: COMPARISON: CT 05/16/2018 TECHNIQUE: AP, lateral, both oblique and odontoid views were obtained. FINDINGS: There is continued reversal of the normal cervical lordosis. There is no evidence of compression fracture or displacement. The disc spaces are preserved. There is no significant degenerative change. The neuroforamen are patent. The atlantoaxial relationship is maintained. There is no prevertebral soft tissue swelling. XR/XR cervical spine 5V* IMPRESSION: LOSS OF NORMAL CERVICAL LORDOSIS. NO ACUTE BONY FINDINGS. THORACIC SPINE - 3 views: COMPARISON: 09/29/2018 AP, lateral and swimmer's views were obtained. There is subtle dextroscoliotic curvature. There is no evidence of compression fracture or displacement. The pedicles are intact. Tiny endplate spurs are seen. There are no paraspinal soft tissue abnormalities. IMPRESSION: NO ACUTE BONY FINDINGS. RIGHT SHOULDER - 3 views COMPARISON: None AP, Y and Grashey views were obtained. There is no evidence of fracture or dislocation. Minor degenerative change is present at the acromioclavicular joint and greater tuberosity. There are no significant soft tissue abnormalities. IMPRESSION: NO ACUTE BONY FINDINGS. Impression dictated by: Taylor Wiley M.D.04/06/2023 1:31 PM Dictation Location: [place] [address] Transcribed By: OCTAVIANO 04/06/23 1331 Dictated By: Taylor Wiley MD 04/06/23 1319 Signed By: 04/06/23 1331 Normal [facility] Consent for Treatmenton Consent for Treatment [id number] Normal [facility] Discharge Instructionson Discharge Instructions [id number] Normal [facility] ED Clinical Summaryon 2022 ED Clinical Summary (Inserted Image. Cristina ble to display) [address] [address] ED Clinical Summary Person Information Name: TRACIE SAMUELS [facility] Age: 32 Years : 1990 Sex: Female Language: Swazi PCP: KATLIN FERNANDEZ DO Marital Status: Single Visit Id: Visit Reason: Shoulder pain-swelling; SHOULDER PAIN Speciality: Acuity: 4 Enc Type: Emergency Med Service: Emergency Arrival: 01/26/2023 16:22:11 Discharge: 01/26/2023 17:23:08 LOS: 000 01:01 Checkin: 01/26/2023 16:22:11 Checkout: 01/26/2023 17:23:08 Dispo Type: Home (Routine DC) EVENTS: Event Name Event Status Request Date/Time Start Date/Time Complete Date/Time Arrive Complete 01/26/2023 16:22:11 01/26/2023 16:22:11 01/26/2023 16:22:11 Document Home Meds Request 01/26/2023 16:22:11 Triage Complete 01/26/2023 16:22:11 01/26/2023 16:27:51 01/26/2023 16:27:51 Bed Assign Complete 01/26/2023 16:23:58 01/26/2023 16:23:58 01/26/2023 16:23:58 Dr Exam Complete 01/26/2023 16:23:58 01/26/2023 16:25:58 01/26/2023 16:25:58 RN Exam Complete 01/26/2023 16:23:58 01/26/2023 16:29:08 01/26/2023 16:29:08 Registration Complete 01/26/2023 16:25:58 01/26/2023 16:33:35 01/26/2023 16:33:35 Dr Exam Complete 01/26/2023 16:27:32 01/26/2023 16:27:32 01/26/2023 16:27:32 Reg Complete Request 01/26/2023 16:33:35 Reg Bed Request Complete 01/26/2023 16:33:35 01/26/2023 16:33:35 01/26/2023 16:33:35 Meds Admin Complete 01/26/2023 16:43:17 01/26/2023 17:02:15 Discharge Complete 01/26/2023 16:50:05 01/26/2023 17:23:16 01/26/2023 17:23:16 Meds Admin Complete 01/26/2023 17:13:53 01/26/2023 17:19:04 Transfer Complete 01/26/2023 17:23:16 01/26/2023 17:23:16 01/26/2023 17:23:16 ADDRESS: [address] [place] [address] [address] [facility] [phone] PHYS DOC NOTES: MEDICAL INFORMATION: Prescriptions Given: Medications to Continue with No Changes Other Medications acetaminophen-oxycodone (Percocet 5 mg-325 mg oral tablet) 1 Tablets By Mouth every 6 hours as needed as needed for pain. Refills: 0. acetaminophen-oxycodone (Percocet 5 mg-325 mg oral tablet) 1 Tablets By Mouth every 6 hours. Refills: 0. albuterol (albuterol 0.083% Inh Claire 3 mL UD) 3 Milliliter Inhalation every 6 hours. Refills: 0. albuterol (albuterol 0.083% Inh Claire 3 mL) 3 Milliliter Nebulized inhalation (aerosol) every 6 hours as needed Shortness of breath or wheezing. albuterol (ProAir HFA 90 mcg/inh inhalation aerosol) 2 Puffs Inhalation 4 times a day as needed Shortness of breath or wheezing. dicyclomine (Bentyl 10 mg Cap) 2 Capsules By Mouth 4 times a day. Refills: 0. famotidine (Pepcid 20 mg Tab) 1 Tablets By Mouth 2 times a day. Refills: 0. indomethacin lidocaine topical (lidocaine Top 5% film Patch) 1 Patches Topical every day. apply 12 hours on and 12 hours off daily. Refills: 0. meloxicam (meloxicam 15 mg oral tablet) By Mouth every day. meloxicam (meloxicam 15 mg oral tablet) 1 Tablets By Mouth every day. Refills: 0. metformin (metformin 500 mg oral tablet) 1 Tablets By Mouth As Directed. mupirocin topical (mupirocin Top 2% Oint) 1 Application Topical 3 times a day. Refills: 0. naproxen (Naprosyn 500 mg Tab) 1 Tablets By Mouth 2 times a day as needed for pain. Refills: 0. naproxen (Naprosyn 500 mg Tab) 1 Tablets By Mouth 2 times a day. Refills: 0. naproxen (naproxen 375 mg Tab) 1 Tablets By Mouth every 12 hours. Refills: 0. ondansetron (Zofran ODT 4 mg Tab) 1 Tablets By Mouth every 6 hours as needed Nausea/Vomiting. Refills: 0. ondansetron (Zofran ODT 4 mg Tab) 1 Tablets By Mouth every 6 hours as needed Nausea/Vomiting. Refills: 0. ondansetron (Zofran ODT 4 mg Tab-Dis) 1 Tablets By Mouth 3 times a day. Refills: 0. ondansetron (Zofran ODT 4 mg Tab-Dis) 1 Tablets By Mouth every 8 hours as needed Nausea/Vomiting. Refills: 0. pantoprazole (Pantoprazole [address] Tab) polyethylene glycol 3350 (Miralax 3350 17 gram packet) 17 Gram By Mouth every day. Refills: 0. polyethylene glycol 3350 with electrolytes (polyethylene glycol 3350 with electrolytes Oral Pwdr for Claire 4000 mL (NuLytely)) PER PHYSICIAN INSTRUCTIONS. PRIOR TO COLONOSCOPY.. Refills: 0. promethazine (Phenergan 12.5 mg Supp) 1 Suppositories By rectum every 8 hours as needed as needed for nausea/vomiting. second line. Refills: 0. promethazine (Phenergan 12.5 mg Supp) 1 Suppositories By rectum every 8 hours. Refills: 0. promethazine (promethazine 25 mg Tab) 1 Tablets By Mouth every 6 hours as needed as needed for nausea/vomiting. Refills: 0. promethazine (promethazine 25 mg Tab) 1 Tablets By Mouth every 6 hours as needed as needed for nausea/vomiting. Refills: 0. tramadol (traMADOL 50 mg Tab) 1 Tablets By Mouth every 6 hours as needed Pain. Refills: 0. PATIENT EDUCATION INFORMATION: Instructions: Shoulder Pain Follow up: With: Address: When: [facility] [place] [employer] (1) In 3 days 01/29/2023 DIAGNOSIS: Right shoulder pain [facility] ED Note-Physicianon 01-27-20 ED Note-Physician Basic Information Time Seen: Jass Meek DO 01/26/2023 16:25 Chief Complaint Pt reports right shoulder pain for 2 weeks. unable to get into ortho. repots pain meds are not working. no new injury. History of Present Illness 32-year-old female comes to the ED for evaluation of right shoulder pain. Has been ongoing issue for last couple of weeks. She was seen in the ED and had negative x-rays. She was referred to orthopedics but does not have an appointment. She presents today requesting more pain medication. She was scribed Percocet previously. She states she has not taken lsfa-nvl-moteriv Motrin. No new injuries. No acute weakness or paresthesias. No chest pain or shortness of breath. Review of Systems A 10 point review of systems is negative except as noted above. Medical and Surgical History: Reviewed and noted Social history: Lives at home Tobacco: Denies Physical Exam Vitals & Measurements T: 36.5 ?C(Oral) HR: 74(Peripheral) RR: 16 BP: 130/83 SpO2: 99% HT: 150 cm WT: 91.7 kg BMI: 40.76 Nurses notes and vital signs reviewed and patient is not hypoxic. General: Cheerful Skin: Warm, dry. Head: Atraumatic. Neck: No JVD. Eye: Normal conjunctiva. Ears, Nose, Mouth, and Throat: Moist mucous membranes. Cardiovascular: Strong distal pulses. Chest wall: Respiratory: Respirations are nonlabored. Back: Normal range of motion. Musculoskeletal: Diffuse tenderness right shoulder with poor range of motion. Strong distal pulses Gastrointestinal: Urological: Neurological: Awake and alert. No focal deficits. Follows commands. Psychiatric: Cooperative. Medical Decision Making Patient presents with right shoulder pain but this has been ongoing issue for couple of weeks. She had negative x-rays. She is to follow-up with orthopedics. She is given Toradol and Percocet here. Educated rice therapy at home. Patient was encouraged to return to the ED if symptoms worsen or change. Assessment/Plan Right shoulder pain (M25.511: Pain in right shoulder) Orders: acetaminophen-oxycodone, 1 tab(s), Tab, Oral, Once, Stop date 01/26/23 17:13:00 EST, STAT, Start date 01/26/23 17:13:00 EST ketorolac, 60 mg = 2 mL, Injection, IntraMuscular, Once, Stop date 01/26/23 16:43:00 EST, STAT, Start date 01/26/23 16:43:00 EST, 01/26/23 16:43:00 EST Medications Administered Given ketorolac 60 mg/2 mL Injection, 60 mg, IntraMuscular Percocet 5 mg-325 mg oral tablet, 1 tab(s), Oral Disposition Plan Patient Discharge Condition Disposition: Discharged home Condition: Improved and stable Counseled: Patient and/or family were counseled to workup, results, treatment plan and follow-up recommendations Discharge Prescription List Prescriptions No active prescription medications Follow-up With When Contact Information KATLIN FERNANDEZ In 3 days 01/29/2023 [place], [place] Business (1) Additional Instructions: Patient Education Shoulder Pain Attestation Patient seen and evaluated by the physician drug safety assistant. Attending physician was present in the emergency department and supervised care. This visit was performed by both the physician and an APC. I performed all aspects of the MDM as documented. This report was transcribed using voice recognition software. Every effort was made to ensure accuracy, however, inadvertently computerized visitor services technician mistakes may be present. Appropriate healthcare PPE was used in evaluating this patient. The patient was placed in a mask. The healthcare provider was wearing mask, gloves, and utilizing proper hand hygiene. All equipment was properly cleansed. Problem List/Past Medical History Ongoing Abdominal pain Bipolar Chronic gastritis Diabetes mellitus Extreme obesity 28-AUG-2013 12:48:08<$> Loose stools Lower abdominal pain Smoker Vomiting Historical ADHD (attention deficit hyperactivity disorder) Antral ulcer Asthma Kidney stone Seizure Procedure/Surgical History section, Cholecystectomy, EGD (esophagogastroduodenosco py) gastric outlet reduction, Tubal ligation. Medications Inpatient No active inpatient medications Home albuterol 0.083% Inh Claire 3 mL, 2.5 mg= 3 mL, NEB, q6hr, PRN albuterol 0.083% Inh Claire 3 mL UD, 2.5 mg= 3 mL, Inhalation, q6hr Bentyl 10 mg Cap, 20 mg= 2 cap(s), Oral, QID indomethacin lidocaine Top 5% film Patch, 1 patch(es), Topical, Daily meloxicam 15 mg oral tablet, 15 mg= 1 tab(s), Oral, Daily meloxicam 15 mg oral tablet, Oral, Daily metformin 500 mg oral tablet, 500 mg= 1 tab(s), Oral, As Directed Miralax 3350 17 gram packet, 17 gm, Oral, Daily mupirocin Top 2% Oint, 1 arely, Topical, TID Naprosyn 500 mg Tab, 500 mg= 1 tab(s), Oral, BID, PRN Naprosyn 500 mg Tab, 500 mg= 1 tab(s), Oral, BID naproxen 375 mg Tab, 375 mg= 1 tab(s), Oral, q12hr Pantoprazole [address] Tab Pepcid 20 mg Tab, 20 mg= 1 tab(s), Oral, BID Percocet 5 mg-325 mg oral tablet, 1 tab(s), Oral, q6hr Percocet 5 mg-325 mg oral (more content not included)... [facility] Comment on above: Result Comment: Elec tronically Signed By: Jax Lassiter PA-C\.br\Date and Time Signed: 01/26/23 17:45 EST\.br\Electronically Co-Signed By: Jass Meek DO\.br\Date and Time Co-Signed: 01/26/23 18:19 EST ED Patient Education Noteon 01-26-2023 ED Patient Education Note Orthopedics Shoulder Pain Many things can cause shoulder pain, including: ? An injury to the shoulder. ? Overuse of the shoulder. ? Arthritis. The source of the pain can be: ? Inflammation. ? An injury to the shoulder joint. ? An injury to a tendon, ligament, or bone. Follow these instructions at home: Pay attention to changes in your symptoms. Let your health care provider know about them. Follow these instructions to relieve your pain. If you have a sling: ? Wear the sling as told by your health care provider. Remove it only as told by your health care provider. ? Loosen the sling if your fingers tingle, become numb, or turn cold and blue. ? Keep the sling clean. ? If the sling is not waterproof: ? Do not let it get wet. Remove it to shower or bathe. ? Move your arm as little as possible, but keep your hand moving to prevent swelling. Managing pain, stiffness, and swelling ? If directed, put ice on the painful area: ? Put ice in a plastic bag. ? Place a towel between your skin and the bag. ? Leave the ice on for 20 minutes, 2?3 times per day. Stop applying ice if it does not help with the pain. ? Squeeze a soft ball or a foam pad as much as possible. This helps to keep the shoulder from swelling. It also helps to strengthen the arm. General instructions ? Take nldo-fwx-priturp and prescription medicines only as told by your health care provider. ? Keep all follow-up visits as told by your health care provider. This is important. Contact a health care provider if: ? Your pain gets worse. ? Your pain is not relieved with medicines. ? New pain develops in your arm, hand, or fingers. Get help right away if: ? Your arm, hand, or fingers: ? Tingle. ? Become numb. ? Become swollen. ? Become painful. ? Turn white or blue. Summary ? Shoulder pain can be caused by an injury, overuse, or arthritis. ? Pay attention to changes in your symptoms. Let your health care provider know about them. ? This condition may be treated with a sling, ice, and pain medicines. ? Contact your health care provider if the pain gets worse or new pain develops. Get help right away if your arm, hand, or fingers tingle or become numb, swollen, or painful. ? Keep all follow-up visits as told by your health care provider. This is important. This information is not intended to replace advice given to you by your health care provider. Make sure you discuss any questions you have with your health care provider. Document Revised: 10/28/2021 Document Reviewed: 10/28/2021 Elsevier Patient Education ? 2022 [employer] [facility] ED Patient Summaryon 023 ED Patient Summary (Inserted Image. Cristina ble to display) [address] [address] Patient Discharge Instructions Person Information Name: TRACIE SAMUELS Age: 32 Years Arrival Date: 01/26/2023 16:22:11 Discharge Diagnosis: Right shoulder pain Primary Care Physician: KATLIN FERNANDEZ DO Provider Information Primary Provider: Jass Meek DO Advanced Meter Reader Chief:Jax Lassiter PA-C The exam and treatment you received in the Emergency Department were for an urgent problem and are not intended as complete care. It is important that you follow up with a doctor, nurse practitioner, or physician?s drug safety assistant for ongoing care. If your symptoms become worse or you do not improve as expected and you are unable to reach your usual health care provider, you should return to the Emergency Department. We are available 24 hours a day. TRACIE SAMUELS has been given the following list of patient education materials, prescriptions and follow-up instructions: Follow-up Instructions: With: Address: When: [facility] [place] [facility] (1) In 3 days 01/29/2023 In the event that this physician does not participate in your insurance network, please consult with your insurance company to find a nearby participating provider. Patient Education Materials: Shoulder Pain A MESSAGE TO ALL PATIENTS REGARDING OPIOIDS PRESCRIPTION OPIOIDS: WHAT YOU NEED TO KNOW Prescription opioids can be used to help relieve hvqekgxn-ch-fphgzq pain and are often prescribed following a surgery or injury, or for certain health conditions. These medications can be an important part of the treatment but also come with serious risks. It is important to work with your healthcare provider to make sure you are getting the safest, most effective care. WHAT ARE THE RISKS AND SIDE EFFECTS OF OPIOID USE? Prescription opioids carry serious risks of addiction and overdose, especially with prolonged use. An opioid overdose, often marked by slowed breathing, can cause sudden . The use of prescription opioids can have a number of side effects as well, even when taken as directed: ? Tolerance?meaning you might need to take more of the medication for the same pain relief ? Physical dependence?meaning you have symptoms of withdrawal when a medication is stopped ? Increased sensitivity to pain ? Constipation ? Nausea, vomiting, and dry mouth ? Sleepiness and dizziness ? Confusion ? Depression ? Low levels of testosterone that can result in lower sex drive, energy, and strength ? Itching and sweating RISKS ARE GREATER WITH: ? History of drug misuse, substance use disorder, or overdose ? Mental health conditions (such as depression or anxiety) ? Sleep apnea ? Older age (65 years and older) ? Avoid alcohol while taking prescription opioids. Also, unless specifically advised by your health care provider, medications to avoid include: ? Benzodiazepines (such as Xanax or Valium) ? Muscle relaxants (such as Soma or Flexeril) ? Hypnotics (such as Ambien or Lunesta) ? Other prescription opioids KNOW YOUR OPTIONS Talk to your health care provider about ways to manage your pain that don?t involve prescription opioids. Some of these options may actually work better and have fewer risks and side effects. Options may include: ? Pain relievers such as acetaminophen, ibuprofen, and naproxen ? Some medication that are also used for depression or seizures ? Physical therapy and exercise ? Cognitive behavioral therapy, a psychological, goal-directed approach, in which patients learn how to modify physical, behavioral, and emotional triggers of pain and stress. IF YOU ARE PRESCRIBED OPIOIDS FOR PAIN: ? Never take opioids in greater amounts or more often than prescribed. ? Follow up with your primary health care provider. o Work together to create a plan on how to manage your pain. o Talk about ways to help manage your pain that don?t involve prescription opioids. o Talk about any and all concerns and side effects. ? Help prevent misuse and abuse o Never sell or share prescription opioids. o Never use another person?s prescription opioids. ? Store prescription opioids in a secure place and out of reach of others (this may include visitors, children, friends, and family). ? Safely dispose of unused prescription opioids: Find your community drug take-back program or your pharmacy mail-back program, or flush them down the toilet, following guidance from the Food and Drug Administration (www.fda.gov/Drugs/Resour cesForYou). ? Visit www.cdc.gov/drugoverdose to learn about the risks of opioids abuse and overdose. ? If you believe you may be struggling with addiction, tell your health technical healthcare consultant and ask for guidance or call [facility] National Helpline at 1-725-845-AYHP. a Source: US Department of Health and Human Ser (more content not included)... [facility] ED Note-Physicianon 01-26-20 ED Note-Physician Basic Information Time Seen: Klaudia POWER, Sushila Mckenna 01/21/2023 15:49 Chief Complaint pt c\o R upper arm and shoulder pain x5 days after falling off step stool History of Present Illness Patient is a 32-year-old female with history of asthma, ADHD, T2DM, bipolar that presents to the ED with female family member for evaluation of right shoulder pain x5 days. Patient states that 5 days ago she was moving a TV and she stretched wrong causing right shoulder pain. She said 3 days ago she was trying to get chemicals off the top of her refrigerator and fell causing her to bump her right shoulder onto the corner of the counter. Since then pain is gotten progressively worse. She rates pain 10/10. It is aggravated by movement and touch. Localizes it to right shoulder over humeral head. She took 400 mg of ibuprofen at 10 AM. Took Tylenol last night. States nothing is helping. She denies any numbness or muscle weakness but does endorse tingling of the fingers. She denies any neck pain, head pain, chest pain, shortness of breath, heart racing. She is left-hand dominant. Review of Systems A 10 point review of systems is negative except as noted above. Medical and Surgical History: Reviewed and noted Social history: Lives at home with children. 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 Daily tobacco use. Physical Exam Vitals & Measurements T: 36.8 ?C(Oral) HR: 75(Peripheral) RR: 14 BP: 126/72 SpO2: 100% HT: 149 cm WT: 93.5 kg BMI: 42.12 R UE: Tenderness with palpation over humeral head. No ecchymosis, erythema nor edema. 5/5 trestle mechanic strength. No pain with isolated passive ROM of wrist or elbow. Will not allow me to attempt ROM of shoulder. Sensation intact. 2+ radial pulse. Normal cap refill. Appearance: Due to BMI. Appears uncomfortable. Alert and awake. Speaking in complete sentences. Calm. Cooperative. Vital signs reviewed, WNL Skin: Warm, dry, intact. NECK: Supple. Nml Inspection with good ROM Eyes: PERRL. Vision grossly intact. ENT: Buccal mucosa pink and moist. Hearing grossly normal Respiratory: LCTA b/l with normal bilateral excursion. No wheezes, rhonchi, rales. Cardiovascular: RRR, no murmurs. 2+ symmetrical radial and dorsalis pedis pulses. Normal cap refill. No LE edema. Neuro: Alert and awake, speech Clear, cranial nerves grossly intact. No focal neurological deficit observed. Normal sensation to light touch in all 4 extremities. Normal gait. Extremities: See RUE. Patient spontaneously moves all 4 extremities. Medical Decision Making Limitations to history: None Nursing Notes: Reviewed and utilized the nursing notes. Previous records reviewed: OARRS score 240 with no concerning findings. MDM: Patient is a 32-year-old female who presents to the ED for evaluation of right shoulder pain. Exam is limited by patient's pain and lack of allowing movement or range of motion testing. Imaging was obtained prior to the start of my shift and is negative for any acute pathology. I suspect rotator cuff pathology, sprain or strain, cervical radiculopathy. Patient to be given Percocet and ibuprofen in the ED. We will send her home with 1 day course of Percocet. Patient guarding her arm and requesting sling. Will place in sling but I have advised that she should move her shoulder every couple of hours to prevent adhesive capsulitis or further injury. She is agreeable. We will have patient follow-up with orthopedics. Encouraged her to return to nearest ER for any new or worsening symptoms Appropriate for: Patient management Assessment/Plan 1. Pain in right shoulder (M25.511: Pain in right shoulder) Ordered: acetaminophen-oxycodone, 1 tab(s), Oral, q6hr as needed for pain, 6 tab(s), Refill(s) 0, [employer] [facility], 149, cm, 01/21/23 13:50:00 EST, Height/Length Dosing, 93.5, kg, 01/21/23 13:50:00 EST, Weight Dosing Orders: acetaminophen-oxycodone, 1 EA, Oral, Once, Stop date 01/21/23 16:20:00 EST, STAT, Start date 01/21/23 16:20:00 EST ibuprofen, 600 mg = 1 tab(s), Tab, Oral, Once, Stop date 01/21/23 16:20:00 EST, STAT, Start date 01/21/23 16:20:00 EST, 01/21/23 16:20:00 EST Sling Apply Disposition Plan Patient Discharge Condition Stable Discharge Disposition Home Discharge Prescription List Prescriptions Percocet 5 mg-325 mg oral tablet, 1 tab(s), Oral, q6hr, PRN Follow-up With When Contact Information Roya Rosario DO, ORT In 3 days 01/24/2023 EST [address] [place] [address]- Additional Instructions: Additional Instructions: Call the office of your primary care doctor to arrange for follow-up within the above-stated timeframe. Follow-up with your primary care doctor about this ED visit. You should review your labs, imaging, and diagnoses from this ED visit with your primary care physician. If you were prescribed medications you should discuss possible side-effects and drug interactions with your pharmacist. Call 911 or go to the nearest Emergency Department if you develop (more content not included)... [facility] Comment on above: Result Comment: Elec tronically Signed By: Sushila Rudolph PA-C\.br\Date and Time Signed: 01/21/23 16:30 EST\.br\Electronically Co-Signed By: Juan Antonio Hooper MD\.br\Date and Time Co-Signed: 01/25/23 20:56 EST Consent for Treatmenton 12-28 Consent for Treatment [id number]#[id number] [facility] Discharge Instructionson Discharge Instructions [id number] [facility] ED Clinical Summaryon 2022 ED Clinical Summary (Inserted Image. Cristina ble to display) [facility] [address], [place] [address] ED Clinical Summary Person Information Name: TRACIE SAMUELS/[facility] Age: 32 Years : 1990 Sex: Female Language: Swazi PCP: KATLIN FERNANDEZ DO Marital Status: Single Visit Id: Visit Reason: Shoulder pain-swelling; Arm pain-swelling; RIGHT ARM PAIN Speciality: Acuity: 4 Enc Type: Emergency Med Service: Emergency Arrival: 01/21/2023 13:24:05 Discharge: 01/21/2023 16:41:12 LOS: 000 03:17 Checkin: 01/21/2023 13:24:05 Checkout: 01/21/2023 16:41:12 Dispo Type: Home (Routine DC) EVENTS: Event Name Event Status Request Date/Time Start Date/Time Complete Date/Time Arrive Complete 01/21/2023 13:24:05 01/21/2023 13:24:05 01/21/2023 13:24:05 Document Home Meds Request 01/21/2023 13:24:05 Triage Complete 01/21/2023 13:24:05 01/21/2023 13:50:42 01/21/2023 13:50:42 X-Ray Cancel 01/21/2023 13:51:17 01/21/2023 13:53:38 X-Ray Complete 01/21/2023 13:53:34 01/21/2023 13:57:13 01/21/2023 14:10:47 Wet Read Request 01/21/2023 14:10:47 Registration Complete 01/21/2023 14:29:08 01/21/2023 14:29:08 01/21/2023 14:29:08 Reg Complete Request 01/21/2023 14:29:08 Reg Bed Request Complete 01/21/2023 14:29:08 01/21/2023 14:29:08 01/21/2023 14:29:08 Bed Assign Complete 01/21/2023 15:20:31 01/21/2023 15:20:31 01/21/2023 15:20:31 Dr Exam Complete 01/21/2023 15:20:31 01/21/2023 15:49:26 01/21/2023 15:49:26 RN Exam Complete 01/21/2023 15:20:31 01/21/2023 15:26:43 01/21/2023 15:26:43 Registration Request 01/21/2023 15:49:26 Patient Care Request 01/21/2023 16:20:58 Meds Admin Complete 01/21/2023 16:20:58 01/21/2023 16:37:04 Discharge Complete 01/21/2023 16:30:50 01/21/2023 16:41:20 01/21/2023 16:41:20 Transfer Complete 01/21/2023 16:41:20 01/21/2023 16:41:20 01/21/2023 16:41:20 ADDRESS: [address] [place] [address] [address] [facility] [id number] PHYS DOC NOTES: MEDICAL INFORMATION: Prescriptions Given: Medications to Continue Taking That Have Changed [facility] [address], [address] [place], [place] [id number], [phone] START: acetaminophen-oxycodone (Percocet 5 mg-325 mg oral tablet) 1 Tablets By Mouth every 6 hours as needed as needed for pain. Refills: 0. Other Medications START: acetaminophen-oxycodone (Percocet 5 mg-325 mg oral tablet) 1 Tablets By Mouth every 6 hours. Refills: 0. Medications to Continue with No Changes Other Medications albuterol (albuterol 0.083% Inh Claire 3 mL UD) 3 Milliliter Inhalation every 6 hours. Refills: 0. albuterol (albuterol 0.083% Inh Claire 3 mL) 3 Milliliter Nebulized inhalation (aerosol) every 6 hours as needed Shortness of breath or wheezing. albuterol (ProAir HFA 90 mcg/inh inhalation aerosol) 2 Puffs Inhalation 4 times a day as needed Shortness of breath or wheezing. dicyclomine (Bentyl 10 mg Cap) 2 Capsules By Mouth 4 times a day. Refills: 0. famotidine (Pepcid 20 mg Tab) 1 Tablets By Mouth 2 times a day. Refills: 0. indomethacin lidocaine topical (lidocaine Top 5% film Patch) 1 Patches Topical every day. apply 12 hours on and 12 hours off daily. Refills: 0. meloxicam (meloxicam 15 mg oral tablet) By Mouth every day. meloxicam (meloxicam 15 mg oral tablet) 1 Tablets By Mouth every day. Refills: 0. metformin (metformin 500 mg oral tablet) 1 Tablets By Mouth As Directed. mupirocin topical (mupirocin Top 2% Oint) 1 Application Topical 3 times a day. Refills: 0. naproxen (Naprosyn 500 mg Tab) 1 Tablets By Mouth 2 times a day as needed for pain. Refills: 0. naproxen (Naprosyn 500 mg Tab) 1 Tablets By Mouth 2 times a day. Refills: 0. naproxen (naproxen 375 mg Tab) 1 Tablets By Mouth every 12 hours. Refills: 0. ondansetron (Zofran ODT 4 mg Tab) 1 Tablets By Mouth every 6 hours as needed Nausea/Vomiting. Refills: 0. ondansetron (Zofran ODT 4 mg Tab) 1 Tablets By Mouth every 6 hours as needed Nausea/Vomiting. Refills: 0. ondansetron (Zofran ODT 4 mg Tab-Dis) 1 Tablets By Mouth 3 times a day. Refills: 0. ondansetron (Zofran ODT 4 mg Tab-Dis) 1 Tablets By Mouth every 8 hours as needed Nausea/Vomiting. Refills: 0. pantoprazole (Pantoprazole [address] Tab) polyethylene glycol 3350 (Miralax 3350 17 gram packet) 17 Gram By Mouth every day. Refills: 0. polyethylene glycol 3350 with electrolytes (polyethylene glycol 3350 with electrolytes Oral Pwdr for Claire 4000 mL (NuLytely)) PER PHYSICIAN INSTRUCTIONS. PRIOR TO COLONOSCOPY.. Refills: 0. promethazine (Phenergan 12.5 mg Supp) 1 Suppositories By rectum every 8 hours as needed as needed for nausea/vomiting. second line. Refills: 0. promethazine (Phenergan 12.5 mg Supp) 1 Suppositories By rectum every 8 hours. Refills: 0. promethazine (promethazine 25 mg Tab) 1 Tablets By Mouth every 6 hours as needed as needed for nausea/vomiting. Refills: 0. promethazine (promethazine 25 mg Tab) 1 Tablets By Mouth every 6 hours as needed as needed for nausea/vomitin (more content not included)... Normal [facility] ED Patient Education Noteon 01-21-2023 ED Patient Education Note Orthopedics Shoulder Pain Many things can cause shoulder pain, including: ? An injury. ? Moving the shoulder in the same way again and again (overuse). ? Joint pain (arthritis). Pain can come from: ? Swelling and irritation (inflammation) of any part of the shoulder. ? An injury to the shoulder joint. ? An injury to: ? Tissues that connect muscle to bone (tendons). ? Tissues that connect bones to each other (ligaments). ? Bones. Follow these instructions at home: Watch for changes in your symptoms. Let your doctor know about them. Follow these instructions to help with your pain. If you have a sling: ? Wear the sling as told by your doctor. Remove it only as told by your doctor. ? Loosen the sling if your fingers: ? Tingle. ? Become numb. ? Turn cold and blue. ? Keep the sling clean. ? If the sling is not waterproof: ? Do not let it get wet. ? Take the sling off when you shower or bathe. Managing pain, stiffness, and swelling ? If told, put ice on the painful area: ? Put ice in a plastic bag. ? Place a towel between your skin and the bag. ? Leave the ice on for 20 minutes, 2?3 times a day. Stop putting ice on if it does not help with the pain. ? Squeeze a soft ball or a foam pad as much as possible. This prevents swelling in the shoulder. It also helps to strengthen the arm. General instructions ? Take qlvm-tjt-wzknbim and prescription medicines only as told by your doctor. ? Keep all follow-up visits as told by your doctor. This is important. Contact a doctor if: ? Your pain gets worse. ? Medicine does not help your pain. ? You have new pain in your arm, hand, or fingers. Get help right away if: ? Your arm, hand, or fingers: ? Tingle. ? Are numb. ? Are swollen. ? Are painful. ? Turn white or blue. Summary ? Shoulder pain can be caused by many things. These include injury, moving the shoulder in the same away again and again, and joint pain. ? Watch for changes in your symptoms. Let your doctor know about them. ? This condition may be treated with a sling, ice, and pain medicine. ? Contact your doctor if the pain gets worse or you have new pain. Get help right away if your arm, hand, or fingers tingle or get numb, swollen, or painful. ? Keep all follow-up visits as told by your doctor. This is important. This information is not intended to replace advice given to you by your health care provider. Make sure you discuss any questions you have with your health care provider. Document Revised: 10/28/2021 Document Reviewed: 10/28/2021 Elsevier Patient Education ? [address] [employer] [facility] ED Patient Summaryon 023 ED Patient Summary (Inserted Image. Cristina ble to display) [facility] [address], [place] [address] Patient Discharge Instructions Person Information Name: TRACIE SAMUELS Age: 32 Years Arrival Date: 01/21/2023 13:24:05 Discharge Diagnosis: 1:Pain in right shoulder Primary Care Physician: KATLIN FERNANDEZ DO Provider Information Primary Provider: Advanced Meter Reader Chief:Sushila Rudolph PA-C The exam and treatment you received in the Emergency Department were for an urgent problem and are not intended as complete care. It is important that you follow up with a doctor, nurse practitioner, or physician?s drug safety assistant for ongoing care. If your symptoms become worse or you do not improve as expected and you are unable to reach your usual health care provider, you should return to the Emergency Department. We are available 24 hours a day. TRACIE SAMUELS has been given the following list of patient education materials, prescriptions and follow-up instructions: Follow-up Instructions: With: Address: When: Roya Rosario DO, [address] [place] [address] In 3 days 01/24/2023 In the event that this physician does not participate in your insurance network, please consult with your insurance company to find a nearby participating provider. Patient Education Materials: Shoulder Pain, Miiz-ew-Dzfd A MESSAGE TO ALL PATIENTS REGARDING OPIOIDS PRESCRIPTION OPIOIDS: WHAT YOU NEED TO KNOW Prescription opioids can be used to help relieve tyfrcjnj-by-xvraqe pain and are often prescribed following a surgery or injury, or for certain health conditions. These medications can be an important part of the treatment but also come with serious risks. It is important to work with your healthcare provider to make sure you are getting the safest, most effective care. WHAT ARE THE RISKS AND SIDE EFFECTS OF OPIOID USE? Prescription opioids carry serious risks of addiction and overdose, especially with prolonged use. An opioid overdose, often marked by slowed breathing, can cause sudden . The use of prescription opioids can have a number of side effects as well, even when taken as directed: ? Tolerance?meaning you might need to take more of the medication for the same pain relief ? Physical dependence?meaning you have symptoms of withdrawal when a medication is stopped ? Increased sensitivity to pain ? Constipation ? Nausea, vomiting, and dry mouth ? Sleepiness and dizziness ? Confusion ? Depression ? Low levels of testosterone that can result in lower sex drive, energy, and strength ? Itching and sweating RISKS ARE GREATER WITH: ? History of drug misuse, substance use disorder, or overdose ? Mental health conditions (such as depression or anxiety) ? Sleep apnea ? Older age (65 years and older) ? Avoid alcohol while taking prescription opioids. Also, unless specifically advised by your health care provider, medications to avoid include: ? Benzodiazepines (such as Xanax or Valium) ? Muscle relaxants (such as Soma or Flexeril) ? Hypnotics (such as Ambien or Lunesta) ? Other prescription opioids KNOW YOUR OPTIONS Talk to your health care provider about ways to manage your pain that don?t involve prescription opioids. Some of these options may actually work better and have fewer risks and side effects. Options may include: ? Pain relievers such as acetaminophen, ibuprofen, and naproxen ? Some medication that are also used for depression or seizures ? Physical therapy and exercise ? Cognitive behavioral therapy, a psychological, goal-directed approach, in which patients learn how to modify physical, behavioral, and emotional triggers of pain and stress. IF YOU ARE PRESCRIBED OPIOIDS FOR PAIN: ? Never take opioids in greater amounts or more often than prescribed. ? Follow up with your primary health care provider. o Work together to create a plan on how to manage your pain. o Talk about ways to help manage your pain that don?t involve prescription opioids. o Talk about any and all concerns and side effects. ? Help prevent misuse and abuse o Never sell or share prescription opioids. o Never use another person?s prescription opioids. ? Store prescription opioids in a secure place and out of reach of others (this may include visitors, children, friends, and family). ? Safely dispose of unused prescription opioids: Find your community drug take-back program or your pharmacy mail-back program, or flush them down the toilet, following guidance from the Food and Drug Administration (www.fda.gov/Drugs/Resour cesForYou). ? Visit www.cdc.gov/drugoverdose to learn about the risks of opioids abuse and overdose. ? If you believe you may be struggling with addiction, tell your health technical healthcare consultant and ask for guidance or call [facility]?S National Helpline at 5-069-249-GKJB. d Source: [place] Department (more content not included)... [facility] Prescriptions/Work Noteson 1 03-23-2022 Prescriptions/Work Notes [id number] [facility] XR Shoulder Complete Righton 01-21-2023 XR Shoulder Complete Right Exam Date/Time: 01/21/2023 14:10 EST Reason for Exam: Joint pain Report IMPRESSION: NEGATIVE RIGHT SHOULDER. CLINICAL HISTORY: Joint pain COMPARISON: NONE FINDINGS: AP, internal, external rotation, Y and axillary views of the right shoulder demonstrate no evidence of a fracture, dislocation, bone or joint abnormality. Ordering Provider: Juan Antonio Hooper FINAL REPORT Dictated: 01/21/2023 2:39 pm Tong Worthington MD Signed (Electronic Signature): 01/21/2023 2:39 pm Signed by: Tong Worthington MD Transcribed by: FATIMAH Technologist: ISIDRA Technical Comments Radiation Dose: Ka,r in mGy = na DAP = na Normal [facility] US venous duplex LE LTon US venous duplex [facility] [place] [address] Ultrasound Report Signed Patient: Tracie Samuels MR#: [id number] : 1990 Acct:[id number] Age/Sex: 32 / F ADM Date: 11/06/22 Loc: ER Room: Type: [facility] ER Attending Dr: Ordering Provider: Ar Medina APRN Date of Service: 11/06/22 US/US venous duplex LE LT: swelling L lower extrem Copies to: Ar Medina APRN LEFT LOWER EXTREMITY VENOUS DUPLEX INDICATION: Left lower extremity edema, pain and tenderness. Unilateral left lower extremity venous duplex Doppler study was obtained utilizing B-mode, color- flow and spectral Doppler. FINDINGS: The left common femoral, femoral, and popliteal veins showed adequate compressibility, color-flow and augmentation. The left posterior tibial and peroneal veins were compressible, as well as proximal greater saphenous vein. The contralateral right common femoral vein was compressible with color-flow and augmentation. US/US venous duplex LE LT IMPRESSION: NO EVIDENCE OF DEEP VENOUS THROMBOSIS IN THE LEFT LOWER EXTREMITY. NO SUPERFICIAL THROMBOPHLEBITIS WAS NOTED. Impression dictated by: Amaury Wilder MD11/07/2022 9:14 AM Dictation Location: [place] [address] Tech: Margarita Valenzuela Transcribed By: OCTAVIANO 11/07/22913 Dictated By: Amaury Wilder MD 11/07/22913 Signed By: 11/07/22913 Normal [facility] CHEMISTRYOrdered By: SYSTEM SYSTEM on 08-25-2022 Albumin [Mass/Vol] 4.2 g/dL Normal 3.3 - 5.0 gm/dL [facility] Albumin/Globulin [Mass ratio] 1.0 {ratio} Low 1.1 - 2.2 [facility] ALP [Catalytic activity/Vol] 93 [iU]/d Normal 21 - 98 Int._Unit/ L [facility] ALT No additional P-5'-P [Catalytic activity/Vol] 25 [iU]/d Normal 6 - 46 Int._Unit/ L [facility] Anion gap [Moles/Vol] 16 mmol/L Normal 6 - 16 mEq/L [facility] AST [Catalytic activity/Vol] 24 [iU]/d Normal 5 - 43 Int._Unit/ L [facility] Bilirubin [Mass/Vol] 0.6 mg/dL Normal 0.0 - 1 .1 mg/dL [facility] Calcium [Mass/Vol] 9.2 mg/dL Normal 8.9 - 11. 1 mg/dL [facility] Chloride [Moles/Vol] 104 mmol/L Normal 101 - 1 11 mmol/L [facility] CO2 [Moles/Vol] 20 mmol/L Low 21 - 31 mmol/L [facility] Creatinine [Mass/Vol] 0.8 mg/dL Normal 0.5 - 1.3 mg/dL [facility] GFR/1.73 sq M.predicted among non-blacks MDRD (S/P/Bld) [Vol rate/Area] 99 mL/min/1.73 m2 Normal >=59mL/min /1.73 m2 [facility] S Globulin (S) [Mass/Vol] 4.2 g/dL High 1.4 - 4.0 gm/dL [facility] Glucose [Mass/Vol] 92 mg/dL Normal 55 - 199 mg/dL [facility] Lipase [Catalytic activity/Vol] 22 U/L Normal 13 - 58 unit/L [facility] Potassium [Moles/Vol] 3.4 mmol/L Low 3.5 - 5.3 mmol/L [facility] Protein [Mass/Vol] 8.4 g/dL High 6.0 - 7.8 gm/dL [facility] Sodium [Moles/Vol] 137 mmol/L Normal 135 - 145 mmol/L [facility] Urea nitrogen [Mass/Vol] 10 mg/dL Normal 5 - 21 mg/dL [facility] Urea nitrogen/Creatinine [Mass ratio] 12 mg/mg Normal 10 - 20 [facility] HEMATOLOGYOrdered By: SYSTEM SYSTEM on 08-25-2022 Basophils/100 WBC (Bld) 0.6 % Normal 0.0 - 2.0 % [facility] Basophils/Leukocytes Auto (Bld) [Pure # fraction] 0.0 E9/L Normal 0.0 - 0.2 E9/L [facility] Eosinophils/100 WBC (Bld) 0.3 % Normal 0.0 - 8.0 % [facility] Eosinophils/Leukocytes Auto (Bld) [Pure # fraction] 0.0 E9/L Normal 0.0 - 0.5 E9/L [facility] Lymphocytes/100 WBC (Bld) 24.7 % Normal 14.0 - 50.0 % [facility] Lymphocytes/Leukocytes Auto (Bld) [Pure # fraction] 1.5 E9/L Normal 1.0 - 4.0 E9/L [facility] Monocytes/100 WBC (Bld) 14.1 % High 4.0 - 14.0 % [facility] Monocytes/Leukocytes Auto (Bld) [Pure # fraction] 0.8 E9/L Normal 0.2 - 1.0 E9/L [facility] Neutrophils/100 WBC (Bld) 60.3 % Normal 36.0 - 75.0 % [facility] Neutrophils/Leukocytes Auto (Bld) [Pure # fraction] 3.6 E9/L Normal 2.0 - 7.5 E9/L [facility] HEMATOLOGYOrdered By: Sanju Escobedo on 08-25-2022 Erythrocyte distribution width (RBC) [Ratio] 13.0 % Normal 10.9 - 14.2 % [facility] Hematocrit (Bld) [Volume fraction] 39.5 % Normal 34.0 - 46.0 % [facility] Hemoglobin (Bld) [Mass/Vol] 13.3 g/dL Normal 12.0 - 16.0 gm/dL [facility] MCH (RBC) [Entitic mass] 29.2 pg Normal 27.0 - 34.0 pg [facility] MCHC (RBC) [Mass/Vol] 33.7 g/dL Normal 31.4 - 36.0 gm/dL [facility] MCV (RBC) [Entitic vol] 86.9 fL Normal 80.0 - 100.0 fL [facility] Platelet mean volume (Bld) [Entitic vol] 7.5 fL Normal 6.4 - 10.8 fL [facility] Platelets (Bld) [#/Vol] 229.0 E9/L Normal 150.0 - 500.0 E9/L [facility] RBC (Bld) [#/Vol] 4.6 E12/L Normal 4.3 - 5.9 E12/L [facility] WBC corrected for nucl RBC Auto (Bld) [#/Vol] 6.0 E9/L Normal 4.0 - 11.0 E9/L [facility] SEROLOGYOrdered By: Sanju rowe on 08-25-2022 Beta hCG Ql Negative (08/25/22 7:09 PM) Normal [facility] A1C HEMOGLOBINon 04-11-2022 HbA1c (Bld) [Mass fraction] 5.3 % [facility] Other COVID + FLU Quick Testingon 04-11-2022 SARS-CoV-2 (COVID-19) RNA JUANA+probe Ql (Unsp spec) Negative [facility] Other COVID + FLU Quick Testing Negative [facility] Other Quick Strepon 04-11-2022 S. pyogenes Org specific cx Ql (Throat) Negative [employer] Other Quick Strep [employer] Other CHEMISTRYOrdered By: SYSTEM SYSTEM on 03-10-2022 Acetaminophen [Mass/Vol] microgram/mL Low 15 - 30 mcg/mL [facility] Albumin [Mass/Vol] 4.2 g/dL Normal 3.3 - 5.0 gm/dL [facility] Albumin/Globulin [Mass ratio] 1.0 {ratio} Low 1.1 - 2.2 [facility] ALP [Catalytic activity/Vol] 111 [iU]/d High 21 - 98 Int._Unit/ L [facility] ALT No additional P-5'-P [Catalytic activity/Vol] 24 [iU]/d Normal 6 - 46 Int._Unit/ L [facility] Anion gap [Moles/Vol] 9 mmol/L Normal 6 - 16 mEq/L [facility] AST [Catalytic activity/Vol] 22 [iU]/d Normal 5 - 43 Int._Unit/ L [facility] Bilirubin [Mass/Vol] 0.6 mg/dL Normal 0.0 - 1 .1 mg/dL [facility] Calcium [Mass/Vol] 8.8 mg/dL Low 8.9 - 11. 1 mg/dL [facility] Chloride [Moles/Vol] 105 mmol/L Normal 101 - 1 11 mmol/L [facility] CO2 [Moles/Vol] 24 mmol/L Normal 21 - 31 mmol/L [facility] Creatinine [Mass/Vol] 0.8 mg/dL Normal 0.5 - 1.3 mg/dL [facility] Ethanol [Mass/Vol] mg/dL Normal <=7mg/dL [facility] em[facility] GFR/1.73 sq M.predicted among blacks MDRD (S/P/Bld) [Vol rate/Area] mL/min/1.73 m2 Normal >=59mL/min /1.73 m2 [facility] Chem S GFR/1.73 sq M.predicted among non-blacks MDRD (S/P/Bld) [Vol rate/Area] mL/min/1.73 m2 Normal >=59mL/min /1.73 m2 [facility] S Globulin (S) [Mass/Vol] 4.3 g/dL High 1.4 - 4.0 gm/dL [facility] Glucose [Mass/Vol] 106 mg/dL Normal 55 - 199 mg/dL [facility] Potassium [Moles/Vol] 3.6 mmol/L Normal 3.5 - 5.3 mmol/L [facility] Protein [Mass/Vol] 8.5 g/dL High 6.0 - 7.8 gm/dL [facility] Salicylates [Mass/Vol] mg/dL Low 6 - 2 9 mg/dL [facility] Sodium [Moles/Vol] 134 mmol/L Low 135 - 145 mmol/L [facility] Urea nitrogen [Mass/Vol] 12 mg/dL Normal 5 - 21 mg/dL [facility] Urea nitrogen/Creatinine [Mass ratio] 15 mg/mg Normal 10 - 20 [facility] Amphetamines Screen method >1000 ng/mL Ql (U) Negative (03/10/22 8:40 PM) Normal Negative [facility] Barbiturates Screen Ql (U) Negative (03/10/22 8:40 PM) Normal Negative [facility] Benzodiazepines Ql (U) Negative (03/10/22 8:40 PM) Normal Negative [facility] Cocaine Ql (U) Negative (03/10/22 8:40 PM) Normal Negative [facility] Opiates Screen Ql (U) Negative (03/10/22 8:40 PM) Normal Negative [facility] Phencyclidine Screen method >25 ng/mL Ql (U) Negative (03/10/22 8:40 PM) Normal Negative [facility] Tetrahydrocannabinol Screen method >50 ng/mL Ql (U) Positive 1 *ABN* (03/10/22 8:40 PM) Invalid Interpretation Code Negative [facility] Comment on above: Result Comment: Crit ical Result verified by repeat analysis\Critical Result UD_THC:POS Called to SAE MARTIN AT by ALETHEA ARANA And Read Back For Confirmation at: 03/10/2022 21:29:59 HEMATOLOGYOrdered By: SYSTEM SYSTEM on 03-10-2022 Basophils/100 WBC (Bld) 0.8 % Normal 0.0 - 2.0 % [facility] Basophils/Leukocytes Auto (Bld) [Pure # fraction] 0.1 E9/L Normal 0.0 - 0.2 E9/L [facility] Eosinophils/100 WBC (Bld) 0.6 % Normal 0.0 - 8.0 % [facility] Eosinophils/Leukocytes Auto (Bld) [Pure # fraction] 0.1 E9/L Normal 0.0 - 0.5 E9/L [facility] Lymphocytes/100 WBC (Bld) 16.0 % Normal 14.0 - 50.0 % [facility] Lymphocytes/Leukocytes Auto (Bld) [Pure # fraction] 2.2 E9/L Normal 1.0 - 4.0 E9/L [facility] Monocytes/100 WBC (Bld) 3.8 % Low 4.0 - 14.0 % [facility] Monocytes/Leukocytes Auto (Bld) [Pure # fraction] 0.5 E9/L Normal 0.2 - 1.0 E9/L [facility] Neutrophils/100 WBC (Bld) 78.8 % High 36.0 - 75.0 % [facility] Neutrophils/Leukocytes Auto (Bld) [Pure # fraction] 11.0 E9/L High 2.0 - 7.5 E9/L [facility] HEMATOLOGYOrdered By: Marjan Arana on 03-10-2022 Erythrocyte distribution width (RBC) [Ratio] 13.0 % Normal 10.9 - 14.2 % [facility] Hematocrit (Bld) [Volume fraction] 40.5 % Normal 34.0 - 46.0 % [facility] Hemoglobin (Bld) [Mass/Vol] 13.1 g/dL Normal 12.0 - 16.0 gm/dL [facility] MCH (RBC) [Entitic mass] 29.0 pg Normal 27.0 - 34.0 pg [facility] MCHC (RBC) [Mass/Vol] 32.4 g/dL Normal 31.4 - 36.0 gm/dL [facility] MCV (RBC) [Entitic vol] 89.6 fL Normal 80.0 - 100.0 fL [facility] Platelet mean volume (Bld) [Entitic vol] 7.2 fL Normal 6.4 - 10.8 fL [facility] Platelets (Bld) [#/Vol] 298.0 E9/L Normal 150.0 - 500.0 E9/L [facility] RBC (Bld) [#/Vol] 4.5 E12/L Normal 4.3 - 5.9 E12/L [facility] WBC corrected for nucl RBC Auto (Bld) [#/Vol] 13.9 E9/L High 4.0 - 11.0 E9/L [facility] SEROLOGYOrdered By: Pedro Pablo For ster on 03-10-2022 Beta hCG Ql Negative (03/10/22 9:06 PM) Normal [facility] CHEMISTRYOrdered By: SYSTEM SYSTEM on 01-25-2022 Albumin [Mass/Vol] 3.8 g/dL Normal 3.3 - 5.0 gm/dL [facility] Albumin/Globulin [Mass ratio] 1.1 {ratio} Normal 1.1 - 2.2 [facility] ALP [Catalytic activity/Vol] 101 [iU]/d High 21 - 98 Int._Unit/ L [facility] ALT No additional P-5'-P [Catalytic activity/Vol] 40 [iU]/d Normal 6 - 46 Int._Unit/ L [facility] Anion gap [Moles/Vol] 12 mmol/L Normal 6 - 16 mEq/L [facility] AST [Catalytic activity/Vol] 29 [iU]/d Normal 5 - 43 Int._Unit/ L [facility] Bilirubin [Mass/Vol] 0.3 mg/dL Normal 0.0 - 1 .1 mg/dL [facility] Bilirubin.direct [Mass/Vol] mg/dL Normal 0.1 - 0.4 mg/dL [facility] Bilirubin.indirect [Mass or moles/Vol] Unable to Calculate mg/dL Invalid Interpretation Code 0.1 - 0.9 mg/dL [facility] Calcium [Mass/Vol] 8.9 mg/dL Normal 8.9 - 11. 1 mg/dL [facility] Chloride [Moles/Vol] 105 mmol/L Normal 101 - 1 11 mmol/L [facility] CO2 [Moles/Vol] 24 mmol/L Normal 21 - 31 mmol/L [facility] Creatinine [Mass/Vol] 0.7 mg/dL Normal 0.5 - 1.3 mg/dL [facility] GFR/1.73 sq M.predicted among blacks MDRD (S/P/Bld) [Vol rate/Area] mL/min/1.73 m2 Normal >=59mL/min /1.73 m2 [facility] Chem S GFR/1.73 sq M.predicted among non-blacks MDRD (S/P/Bld) [Vol rate/Area] mL/min/1.73 m2 Normal >=59mL/min /1.73 m2 [facility] Chem S Globulin (S) [Mass/Vol] 3.6 g/dL Normal 1.4 - 4.0 gm/dL [facility] Glucose [Mass/Vol] 96 mg/dL Normal 55 - 199 mg/dL [facility] Lipase [Catalytic activity/Vol] 34 U/L Normal 13 - 58 unit/L [facility] Magnesium [Mass/Vol] 1.9 mg/dL Normal 1.3 - 2 .4 mg/dL [facility] Potassium [Moles/Vol] 3.6 mmol/L Normal 3.5 - 5.3 mmol/L [facility] Protein [Mass/Vol] 7.4 g/dL Normal 6.0 - 7.8 gm/dL [facility] Sodium [Moles/Vol] 137 mmol/L Normal 135 - 145 mmol/L [facility] Urea nitrogen [Mass/Vol] 13 mg/dL Normal 5 - 21 mg/dL [facility] Urea nitrogen/Creatinine [Mass ratio] 19 mg/mg Normal 10 - 20 [facility] HEMATOLOGYOrdered By: SYSTEM SYSTEM on 01-25-2022 Basophils/100 WBC (Bld) 1.0 % Normal 0.0 - 2.0 % [facility] Basophils/Leukocytes Auto (Bld) [Pure # fraction] 0.1 E9/L Normal 0.0 - 0.2 E9/L [facility] Eosinophils/100 WBC (Bld) 3.5 % Normal 0.0 - 8.0 % [facility] Eosinophils/Leukocytes Auto (Bld) [Pure # fraction] 0.3 E9/L Normal 0.0 - 0.5 E9/L [facility] Lymphocytes/100 WBC (Bld) 36.9 % Normal 14.0 - 50.0 % [facility] Lymphocytes/Leukocytes Auto (Bld) [Pure # fraction] 3.1 E9/L Normal 1.0 - 4.0 E9/L [facility] Monocytes/100 WBC (Bld) 8.1 % Normal 4.0 - 14.0 % [facility] Monocytes/Leukocytes Auto (Bld) [Pure # fraction] 0.7 E9/L Normal 0.2 - 1.0 E9/L [facility] Neutrophils/100 WBC (Bld) 50.5 % Normal 36.0 - 75.0 % [facility] Neutrophils/Leukocytes Auto (Bld) [Pure # fraction] 4.2 E9/L Normal 2.0 - 7.5 E9/L [facility] HEMATOLOGYOrdered By: Jada n Trenton on 01-25-2022 Erythrocyte distribution width (RBC) [Ratio] 12.8 % Normal 10.9 - 14.2 % [facility] Hematocrit (Bld) [Volume fraction] 36.0 % Normal 34.0 - 46.0 % [facility] Hemoglobin (Bld) [Mass/Vol] 12.4 g/dL Normal 12.0 - 16.0 gm/dL [facility] MCH (RBC) [Entitic mass] 29.5 pg Normal 27.0 - 34.0 pg [facility] MCHC (RBC) [Mass/Vol] 34.5 g/dL Normal 31.4 - 36.0 gm/dL [facility] MCV (RBC) [Entitic vol] 85.5 fL Normal 80.0 - 100.0 fL [facility] Platelet mean volume (Bld) [Entitic vol] 8.0 fL Normal 6.4 - 10.8 fL [facility] Platelets (Bld) [#/Vol] 225.0 E9/L Normal 150.0 - 500.0 E9/L [facility] RBC (Bld) [#/Vol] 4.2 E12/L Low 4.3 - 5.9 E12/L [facility] WBC corrected for nucl RBC Auto (Bld) [#/Vol] 8.3 E9/L Normal 4.0 - 11.0 E9/L [facility] SEROLOGYOrdered By: Tamica Chowdhury on 01-25-2022 Beta hCG Ql Negative (01/25/22 12:06 AM) Normal [facility] URINALYSISOrdered By: Jada Chowdhury on 01-25-2022 Bacteria LM Ql (Urine sed) Trace /HPF Normal Trace/HPF [facility] Auto SS Bilirubin Ql (U) Negative (01/25/22 12:54 AM) Normal Negative [facility] Auto SS Clarity (U) Cloudy *ABN* (01/25/22 12:54 AM) Invalid Interpretation Code Clear [facility] Color (U) Yellow (01/25/22 12:54 AM) Normal Yellow [facility] SS Crystals LM Ql (Urine sed) Present (01/25/22 12:54 AM) Normal [facility] Auto SS Epithelial cells.squamous LM.HPF (Urine sed) [#/Area] /[HPF] Normal 0-2/HPF [facility]A Aut o SS Glucose Test strip (U) [Mass/Vol] Negative (01/25/22 12:54 AM) Normal Negative [facility] Auto SS Hemoglobin Ql (U) 1+ *ABN* (01/25/22 12:54 AM) Invalid Interpretation Code Negative [facility] SS Ketones (U) [Mass/Vol] Negative (01/25/22 12:54 AM) Normal Negative [facility] UA Auto SS Abercrombie.plasma/Abercrombie .RBC (Bld) [Mass ratio] 4-20 /HPF Normal 0-3/HPF [facility] Nitrite Ql (U) Negative (01/25/22 12:54 AM) Normal Negative [facility] pH (U) 6.5 *NA* (01/25/22 12:54 AM) Invalid Interpretation Code 5.0 - 9.0 [facility] Protein (U) [Mass/Vol] Negative (01/25/22 12:54 AM) Normal Negative [facility] Auto SS Specific gravity (U) [Rel density] 1.025 *NA* (01/25/22 12:54 AM) Invalid Interpretation Code 1.005 - 1.030 [facility] UA Spec Desc Clean Catch (01/25/22 12:54 AM) Normal [facility] SS Urobilinogen Qn (U) [id number] {Ag'U}/dL Normal 0.0 - 1.0 EU/dL [facility] Auto SS WBC Auto Ql (U) Negative (01/25/22 12:54 AM) Normal Negative [facility]A Auto SS WBC LM.HPF (Urine sed) [#/Area] 0-5 /HPF Normal 0-5/HPF [facility] UA Auto SS CHEMISTRYOrdered By: SYSTEM SYSTEM on 12-27-2021 Albumin [Mass/Vol] 3.9 g/dL Normal 3.3 - 5.0 gm/dL [facility] Rem[facility] Albumin/Globulin [Mass ratio] 1.0 {ratio} Low 1.1 - 2.2 [facility] ALP [Catalytic activity/Vol] 123 [iU]/d High 21 - 98 Int._Unit/ L [facility] ALT No additional P-5'-P [Catalytic activity/Vol] 40 [iU]/d Normal 6 - 46 Int._Unit/ L [facility] Anion gap [Moles/Vol] 14 mmol/L Normal 6 - 16 mEq/L [facility] AST [Catalytic activity/Vol] 47 [iU]/d High 5 - 43 Int._Unit/ L [facility] Bilirubin [Mass/Vol] 0.5 mg/dL Normal 0.0 - 1 .1 mg/dL [facility] Bilirubin.direct [Mass/Vol] mg/dL Normal 0.1 - 0.4 mg/dL [facility] Bilirubin.indirect [Mass or moles/Vol] Unable to Calculate mg/dL Invalid Interpretation Code 0.1 - 0.9 mg/dL [facility] Calcium [Mass/Vol] 9.0 mg/dL Normal 8.9 - 11. 1 mg/dL [facility] Chloride [Moles/Vol] 103 mmol/L Normal 101 - 1 11 mmol/L [facility] CO2 [Moles/Vol] 23 mmol/L Normal 21 - 31 mmol/L [facility] Creatinine [Mass/Vol] 1.0 mg/dL Normal 0.5 - 1.3 mg/dL [facility] GFR/1.73 sq M.predicted among blacks MDRD (S/P/Bld) [Vol rate/Area] mL/min/1.73 m2 Normal >=59mL/min /1.73 m2 [facility] S GFR/1.73 sq M.predicted among non-blacks MDRD (S/P/Bld) [Vol rate/Area] mL/min/1.73 m2 Normal >=59mL/min /1.73 m2 [facility] Chem S Globulin (S) [Mass/Vol] 4.0 g/dL Normal 1.4 - 4.0 gm/dL [facility] Glucose [Mass/Vol] 110 mg/dL Normal 55 - 199 mg/dL [facility] Lipase [Catalytic activity/Vol] 31 U/L Normal 13 - 58 unit/L [facility] Potassium [Moles/Vol] 3.8 mmol/L Normal 3.5 - 5.3 mmol/L [facility] Protein [Mass/Vol] 7.9 g/dL High 6.0 - 7.8 gm/dL [facility] Sodium [Moles/Vol] 136 mmol/L Normal 135 - 145 mmol/L [facility] Urea nitrogen [Mass/Vol] 15 mg/dL Normal 5 - 21 mg/dL [facility] Urea nitrogen/Creatinine [Mass ratio] 15 mg/mg Normal 10 - 20 [facility] HEMATOLOGYOrdered By: SYSTEM SYSTEM on 12-27-2021 Basophils/100 WBC (Bld) 1.2 % Normal 0.0 - 2.0 % [facility]eAutoSS Basophils/Leukocytes Auto (Bld) [Pure # fraction] 0.1 E9/L Normal 0.0 - 0.2 E9/L [facility] Eosinophils/100 WBC (Bld) 1.8 % Normal 0.0 - 8.0 % [facility] Eosinophils/Leukocytes Auto (Bld) [Pure # fraction] 0.2 E9/L Normal 0.0 - 0.5 E9/L [facility] Lymphocytes/100 WBC (Bld) 31.5 % Normal 14.0 - 50.0 % [facility] Lymphocytes/Leukocytes Auto (Bld) [Pure # fraction] 3.9 E9/L Normal 1.0 - 4.0 E9/L [facility] Monocytes/100 WBC (Bld) 5.1 % Normal 4.0 - 14.0 % [facility] Monocytes/Leukocytes Auto (Bld) [Pure # fraction] 0.6 E9/L Normal 0.2 - 1.0 E9/L [facility] Neutrophils/100 WBC (Bld) 60.4 % Normal 36.0 - 75.0 % [facility] Neutrophils/Leukocytes Auto (Bld) [Pure # fraction] 7.5 E9/L Normal 2.0 - 7.5 E9/L [facility] HEMATOLOGYOrdered By: Marjan Arana on 12-27-2021 Erythrocyte distribution width (RBC) [Ratio] 12.3 % Normal 10.9 - 14.2 % [facility] Hematocrit (Bld) [Volume fraction] 37.9 % Normal 34.0 - 46.0 % [facility] Hemoglobin (Bld) [Mass/Vol] 12.6 g/dL Normal 12.0 - 16.0 gm/dL [facility] MCH (RBC) [Entitic mass] 29.1 pg Normal 27.0 - 34.0 pg [facility] MCHC (RBC) [Mass/Vol] 33.3 g/dL Normal 31.4 - 36.0 gm/dL [facility] MCV (RBC) [Entitic vol] 87.3 fL Normal 80.0 - 100.0 fL [facility] Platelet mean volume (Bld) [Entitic vol] 7.4 fL Normal 6.4 - 10.8 fL [facility] Platelets (Bld) [#/Vol] 241.0 E9/L Normal 150.0 - 500.0 E9/L [facility] RBC (Bld) [#/Vol] 4.3 E12/L Normal 4.3 - 5.9 E12/L [facility] WBC corrected for nucl RBC Auto (Bld) [#/Vol] 12.4 E9/L High 4.0 - 11.0 E9/L [facility] HemeAutoSS SEROLOGYOrdered By: Sanju rowe on 12-27-2021 HCG.beta subunit (U) [Moles/Vol] Negative Normal [facility] URINALYSISOrdered By: Sanju Escobedo on 12-27-2021 Bacteria LM Ql (Urine sed) Trace /HPF Normal Trace/HPF [facility] Auto SS Bilirubin Ql (U) Negative (12/27/21 8:55 PM) Normal Negative [facility] Auto SS Clarity (U) Clear (12/27/21 8:55 PM) Normal Clear [facility] Auto SS Color (U) Yellow (12/27/21 8:55 PM) Normal Yellow [facility] Auto SS Epithelial cells.squamous LM.HPF (Urine sed) [#/Area] 5-8 /HPF Normal 0-2/HPF [facility]A Aut o SS Glucose Test strip (U) [Mass/Vol] Negative (12/27/21 8:55 PM) Normal Negative [facility] Auto SS Hemoglobin Ql (U) 1+ *ABN* (12/27/21 8:55 PM) Invalid Interpretation Code Negative [facility] Auto SS Ketones (U) [Mass/Vol] Negative (12/27/21 8:55 PM) Normal Negative [facility]A Auto SS Abercrombie.plasma/Abercrombie .RBC (Bld) [Mass ratio] 0-3 /HPF Normal 0-3/HPF [facility] Auto SS Nitrite Ql (U) Negative (12/27/21 8:55 PM) Normal Negative [facility] Auto SS pH (U) 6.5 *NA* (12/27/21 8:55 PM) Invalid Interpretation Code 5.0 - 9.0 [facility] Auto SS Protein (U) [Mass/Vol] Negative (12/27/21 8:55 PM) Normal Negative [facility] Auto SS Specific gravity (U) [Rel density] 1.025 *NA* (12/27/21 8:55 PM) Invalid Interpretation Code 1.005 - 1.030 [facility] Auto SS UA Spec Desc Clean Catch (12/27/21 8:55 PM) Normal [facility] Auto SS Urobilinogen Qn (U) [id number] {Ag'U}/dL Normal 0.0 - 1.0 EU/dL [facility] UA Auto SS WBC Auto Ql (U) Negative (12/27/21 8:55 PM) Normal Negative [facility] UA Auto SS WBC LM.HPF (Urine sed) [#/Area] 0-5 /HPF Normal 0-5/HPF [facility] UA Auto SS Urinalysis - AUTOMATEDon Appearance (U) clear [employer] Other Bilirubin Ql (U) Negative [employer] Other Color (U) yellow [employer] Other Glucose Ql (U) Negative [employer] Other Hemoglobin Ql (U) 2+ [employer] Other Ketones Ql (U) Negative [employer] Other Leukocyte esterase Test strip Ql (U) trace [employer] Other Nitrite Ql (U) negtaive [employer] Other pH (U) 6.0 [pH] [employer] Other Protein Ql (U) Negative [employer] Other Specific gravity (U) [Rel density] >=1.030 [employer] Other Urobilinogen (U) [Mass/Vol] 0.2 mg/dL [employer] Other Urinalysis - AUTOMATED No rt [employer] Other CHEMISTRYOrdered By: SYSTEM SYSTEM on 11-08-2021 Anion gap [Moles/Vol] 10 mmol/L Normal 6 - 16 mEq/L [facility] Remisol Calcium [Mass/Vol] 8.5 mg/dL Low 8.9 - 11. 1 mg/dL [facility] Chloride [Moles/Vol] 108 mmol/L Normal 101 - 1 11 mmol/L [facility] CO2 [Moles/Vol] 24 mmol/L Normal 21 - 31 mmol/L [facility] Creatinine [Mass/Vol] 0.8 mg/dL Normal 0.5 - 1.3 mg/dL [facility] GFR/1.73 sq M.predicted among blacks MDRD (S/P/Bld) [Vol rate/Area] mL/min/1.73 m2 Normal >=59mL/min /1.73 m2 [facility] S GFR/1.73 sq M.predicted among non-blacks MDRD (S/P/Bld) [Vol rate/Area] mL/min/1.73 m2 Normal >=59mL/min /1.73 m2 [facility] Chem S Glucose [Mass/Vol] 106 mg/dL Normal 55 - 199 mg/dL [facility] Potassium [Moles/Vol] 3.8 mmol/L Normal 3.5 - 5.3 mmol/L [facility] Sodium [Moles/Vol] 138 mmol/L Normal 135 - 145 mmol/L [facility] Urea nitrogen [Mass/Vol] 13 mg/dL Normal 5 - 21 mg/dL [facility] Urea nitrogen/Creatinine [Mass ratio] 16 mg/mg Normal 10 - 20 [facility] HEMATOLOGYOrdered By: SYSTEM SYSTEM on 11-08-2021 Basophils/100 WBC (Bld) 0.3 % Normal 0.0 - 2.0 % [facility]eAutoSS Basophils/Leukocytes Auto (Bld) [Pure # fraction] 0.0 E9/L Normal 0.0 - 0.2 E9/L [facility] Eosinophils/100 WBC (Bld) 2.6 % Normal 0.0 - 8.0 % [facility] Eosinophils/Leukocytes Auto (Bld) [Pure # fraction] 0.3 E9/L Normal 0.0 - 0.5 E9/L [facility] Lymphocytes/100 WBC (Bld) 35.8 % Normal 14.0 - 50.0 % [facility] Lymphocytes/Leukocytes Auto (Bld) [Pure # fraction] 4.0 E9/L Normal 1.0 - 4.0 E9/L [facility] Monocytes/100 WBC (Bld) 6.2 % Normal 4.0 - 14.0 % [facility] Monocytes/Leukocytes Auto (Bld) [Pure # fraction] 0.7 E9/L Normal 0.2 - 1.0 E9/L [facility] Neutrophils/100 WBC (Bld) 55.1 % Normal 36.0 - 75.0 % [facility] Neutrophils/Leukocytes Auto (Bld) [Pure # fraction] 6.2 E9/L Normal 2.0 - 7.5 E9/L [facility] HEMATOLOGYOrdered By: Samina Mendes on 11-08-2021 Erythrocyte distribution width (RBC) [Ratio] 12.8 % Normal 10.9 - 14.2 % [facility] Hematocrit (Bld) [Volume fraction] 34.3 % Normal 34.0 - 46.0 % [facility] Hemoglobin (Bld) [Mass/Vol] 11.2 g/dL Low 12.0 - 16.0 gm/dL [facility] MCH (RBC) [Entitic mass] 28.9 pg Normal 27.0 - 34.0 pg [facility] MCHC (RBC) [Mass/Vol] 32.8 g/dL Normal 31.4 - 36.0 gm/dL [facility] MCV (RBC) [Entitic vol] 88.1 fL Normal 80.0 - 100.0 fL [facility] Platelet mean volume (Bld) [Entitic vol] 7.7 fL Normal 6.4 - 10.8 fL [facility] Platelets (Bld) [#/Vol] 250.0 E9/L Normal 150.0 - 500.0 E9/L [facility] RBC (Bld) [#/Vol] 3.9 E12/L Low 4.3 - 5.9 E12/L [facility] WBC corrected for nucl RBC Auto (Bld) [#/Vol] 11.2 E9/L High 4.0 - 11.0 E9/L [facility] SEROLOGYOrdered By: Sushila Jacobson on 11-08-2021 Beta hCG Ql Negative (11/08/21 6:40 AM) Normal [facility] Man [facility]ero URINALYSISOrdered By: Derick Jacobson on 11-08-2021 Bacteria LM Ql (Urine sed) Trace /HPF Normal Trace/HPF [facility] Auto SS Bilirubin Ql (U) Negative (11/08/21 7:34 AM) Normal Negative [facility]A Auto SS Clarity (U) Cloudy *ABN* (11/08/21 7:34 AM) Invalid Interpretation Code Clear [facility] Auto SS Color (U) Yellow (11/08/21 7:34 AM) Normal Yellow [facility]A Auto SS Epithelial cells.squamous LM.HPF (Urine sed) [#/Area] /[HPF] Normal 0-2/HPF [facility] UA Aut o SS Glucose Test strip (U) [Mass/Vol] Negative (11/08/21 7:34 AM) Normal Negative [facility]A Auto SS Hemoglobin Ql (U) 1+ *ABN* (11/08/21 7:34 AM) Invalid Interpretation Code Negative [facility] Auto SS Ketones (U) [Mass/Vol] Negative (11/08/21 7:34 AM) Normal Negative [facility] UA Auto SS Abercrombie.plasma/Abercrombie .RBC (Bld) [Mass ratio] 4-20 /HPF Normal 0-3/HPF [facility]A Auto SS Nitrite Ql (U) Negative (11/08/21 7:34 AM) Normal Negative [facility]A Auto SS pH (U) 6.0 *NA* (11/08/21 7:34 AM) Invalid Interpretation Code 5.0 - 9.0 [facility]A Auto SS Protein (U) [Mass/Vol] Negative (11/08/21 7:34 AM) Normal Negative [facility]A Auto SS Specific gravity (U) [Rel density] 1.025 *NA* (11/08/21 7:34 AM) Invalid Interpretation Code 1.005 - 1.030 [facility]A Auto SS Trichomonas sp LM.HPF (Urine sed) [#/Area] Present (11/08/21 7:34 AM) Normal [facility]A Auto SS UA Spec Desc Clean Catch (11/08/21 7:34 AM) Normal [facility]A Auto SS Urobilinogen Qn (U) 0.3545386 {Ag'U}/dL Normal 0.0 - 1.0 EU/dL [facility] Auto SS WBC Auto Ql (U) 1+ *ABN* (11/08/21 7:34 AM) Invalid Interpretation Code Negative [facility] Auto SS WBC LM.HPF (Urine sed) [#/Area] 6-15 /HPF Invalid Interpretation Code 0-5/HPF [facility] Auto SS SEROLOGYOrdered By: Tamica Chowdhury on 10-24-2021 HCG.beta subunit (U) [Moles/Vol] Negative Normal [facility] Man Sero URINALYSISOrdered By: Pedro Pablo ron on 10-24-2021 Bacteria LM Ql (Urine sed) 1+ /HPF Invalid Interpretation Code Trace/HPF [facility] Auto SS Bilirubin Ql (U) Negative (10/24/21 8:10 PM) Normal Negative [facility]A Auto SS Clarity (U) SL CLOUDY Invalid Interpretation Code [facility] Auto SS Color (U) Yellow (10/24/21 8:10 PM) Normal Yellow [facility]A Auto SS Crystals LM Ql (Urine sed) Present (10/24/21 8:10 PM) Normal [facility]A Auto SS Epithelial cells.squamous LM.HPF (Urine sed) [#/Area] /[HPF] Normal 0-2/HPF [facility] UA Aut o SS Glucose Test strip (U) [Mass/Vol] Negative (10/24/21 8:10 PM) Normal Negative [facility]A Auto SS Hemoglobin Ql (U) 1+ *ABN* (10/24/21 8:10 PM) Invalid Interpretation Code Negative [facility]A Auto SS Ketones (U) [Mass/Vol] Negative (10/24/21 8:10 PM) Normal Negative [facility] UA Auto SS Abercrombie.plasma/Abercrombie .RBC (Bld) [Mass ratio] 4-20 /HPF Normal 0-3/HPF [facility]A Auto SS Mucus Ql (Urine sed) 1+ (10/24/21 8:10 PM) Normal [facility]A Auto SS Nitrite Ql (U) Negative (10/24/21 8:10 PM) Normal Negative [facility]A Auto SS pH (U) 6.5 *NA* (10/24/21 8:10 PM) Invalid Interpretation Code 5.0 - 9.0 [facility]A Auto SS Protein (U) [Mass/Vol] Negative (10/24/21 8:10 PM) Normal Negative [facility] UA Auto SS Specific gravity (U) [Rel density] 1.025 *NA* (10/24/21 8:10 PM) Invalid Interpretation Code 1.005 - 1.030 [facility]A Auto SS Trichomonas sp LM.HPF (Urine sed) [#/Area] Present (10/24/21 8:10 PM) Normal [facility] UA Auto SS UA Spec Desc Clean Catch (10/24/21 8:10 PM) Normal [facility]A Auto SS Urobilinogen Qn (U) 0.6994636 {Ag'U}/dL Normal 0.0 - 1.0 EU/dL [facility] UA Auto SS WBC Auto Ql (U) Negative (10/24/21 8:10 PM) Normal Negative [facility] UA Auto SS WBC LM.HPF (Urine sed) [#/Area] 6-15 /HPF Invalid Interpretation Code 0-5/HPF [facility] UA Auto SS MICRO OTHER TESTSOrdered By: Eva Adames on 07-20-2021 Rapid COV Int NEG Ctl Pass (07/20/21 11:46 PM) Normal [facility] Man Sero Rapid COV Int POS Ctl Pass (07/20/21 11:46 PM) Normal [facility] Man Sero S. pyogenes Ag IA.rapid Ql (Throat) Positive *ABN* (07/20/21 11:46 PM) Invalid Interpretation Code Negative [facility] Man Sero SARS-CoV+SARS-CoV-2 (COVID-19) Ag IA.rapid Ql (Resp) Not Detected (07/20/21 11:46 PM) Normal Not Detected [facility] Man Sero COVID + FLU Quick Testingon 06-15-2021 SARS-CoV-2 (COVID-19) RNA JUANA+probe Ql (Unsp spec) Negative [employer] Other COVID + FLU Quick Testing Positive [employer] Other COVID + FLU Quick Testing Negative [employer] Other CBC Auto Differentialon 02-26 Basophils (Bld) [#/Vol] 0.04 10*3/uL [place] Basophils/100 WBC (Bld) 0 % 0 - 2 % [place] Differential Type NOT REPORTED [place] Eosinophils (Bld) [#/Vol] 0.29 10*3/uL [place] Eosinophils/100 WBC (Bld) 2 % 1 - 4 % [place] Erythrocyte distribution width (RBC) [Ratio] 12.7 % 11.8 - 14.4 % [place] Hematocrit (Bld) [Volume fraction] 38.0 % 36.3 - 47.1 % [place] Hemoglobin (Bld) [Mass/Vol] 12.7 g/dL 11.9 - 15.1 g/dL [place] Immature granulocytes (Bld) [#/Vol] 1 % High 0 [place] Immature granulocytes (Bld) [#/Vol] 0.07 10*3/uL [place] Interpretation and review of laboratory results Abnormal [place] Lymphocytes (Bld) [#/Vol] 4.16 10*3/uL [place] Lymphocytes/100 WBC (Bld) 35 % 24 - 43 % [place] MCH (RBC) [Entitic mass] 30.8 pg 25.2 - 33.5 pg [place] MCHC (RBC) [Mass/Vol] 33.4 g/dL 28.4 - 34.8 g/dL [place] MCV (RBC) [Entitic vol] 92.0 fL 82.6 - 102.9 fL [place] Monocytes (Bld) [#/Vol] 0.57 10*3/uL [place] Monocytes/100 WBC (Bld) 5 % 3 - 12 % [place] Platelet mean volume (Bld) [Entitic vol] 9.1 fL 8.1 - 13.5 fL [place] Platelets (Bld) [#/Vol] 262 10*3/uL [place] Platelets (Bld) [#/Vol] NOT REPORTED [place] RBC (Bld) [#/Vol] 4.13 10*6/uL 3.95 - 5.11 m/uL [place] RBC morphology finding Nom (Bld) NOT REPORTED [place] Segmented neutrophils/100 WBC (Bld) 57 % 36 - 65 % [place] Segs Absolute 6.80 [place], [place] WBC (Bld) [#/Vol] 11.9 10*3/uL [place] WBC (Bld) [#/Vol] 0.0 10*3/uL 0.0 per 100 WBC [place] WBC Morphology NOT REPORTED [facility], [place] CBC with Diffon 03-10-2020 Abs. Basophil 0.04 k/uL Normal 0.00-0.20 [facility] Comment on above: Performed By: #### L IP, CDP, CMPX #### [facility] [address] [facility] [place] [address] Blood Or Blood Bank Technician: Freedom Fong MD Abs.Imm.Granulocyte 0.07 k/uL Normal 0.00-0.30 [facility] Comment on above: Performed By: #### L IP, CDP, CMPX #### [facility] [address] [place] [address] Blood Or Blood Bank Technician: Freedom Fong MD Abs.Neutrophil (Seg) 6.80 k/uL Normal 1.50-8.10 [facility] Comment on above: Performed By: #### L IP, CDP, CMPX #### [facility] [address] [place] [address] Blood Or Blood Bank Technician: Freedom Fong MD Basophils/100 WBC (Bld) 0 % Normal 0-2 [facility] Comment on above: Performed By: #### L IP, CDP, CMPX #### [facility] [address] [place] [address] Blood Or Blood Bank Technician: Freedom Fong MD Eosinophils (Bld) [#/Vol] 0.29 10*3/uL Normal 0.00-0.44 [facility] Comment on above: Performed By: #### L IP, CDP, CMPX #### [facility] [address] [place] [phone] Blood Or Blood Bank Technician: Freedom Fong MD Eosinophils/100 WBC (Bld) 2 % Normal 1-4 [facility] Comment on above: Performed By: #### L IP, CDP, CMPX #### [facility] [address] [place] [address] Blood Or Blood Bank Technician: Freedom Fong MD Erythrocyte distribution width (RBC) [Ratio] 12.7 % Normal 11.8-14.4 [facility] Comment on above: Performed By: #### L IP, CDP, CMPX #### [facility] [address] [place] [phone] Blood Or Blood Bank Technician: Freedom Fong MD Hematocrit (Bld) [Volume fraction] 38.0 % Normal 36.3-47.1 [facility] Comment on above: Performed By: #### L IP, CDP, CMPX #### [facility] [address] [place] [address] Blood Or Blood Bank Technician: Freedom Fong MD Hemoglobin (Bld) [Mass/Vol] 12.7 g/dL Normal 11.9-15.1 [facility] Comment on above: Performed By: #### L IP, CDP, CMPX #### [facility] [address] [place] [address] Blood Or Blood Bank Technician: Freedom Fong MD Immature granulocytes (Bld) [#/Vol] 1 % High 0 [facility] Comment on above: Performed By: #### L IP, CDP, CMPX #### [facility] [address] [place] [address] Blood Or Blood Bank Technician: Freedom Fong MD Lymphocytes (Bld) [#/Vol] 4.16 10*3/uL High 1.10-3.70 [facility] Comment on above: Performed By: #### L IP, CDP, CMPX #### [facility] [address] [place] [address] Blood Or Blood Bank Technician: Freedom Fong MD Lymphocytes/100 WBC (Bld) 35 % Normal 24-43 [facility] Comment on above: Performed By: #### L IP, CDP, CMPX #### [facility] [address] [place] [address]. [place] [address] Blood Or Blood Bank Technician: Freedom Fong MD MCH (RBC) [Entitic mass] 30.8 pg Normal 25.2-33.5 [facility] Comment on above: Performed By: #### L IP, CDP, CMPX #### [facility] [address] [place] [address] Blood Or Blood Bank Technician: Freedom Fong MD MCHC (RBC) [Mass/Vol] 33.4 g/dL Normal 28.4-34.8 [facility] Comment on above: Performed By: #### L IP, CDP, CMPX #### [facility] [address] [place] [address] Blood Or Blood Bank Technician: Freedom Fong MD MCV (RBC) [Entitic vol] 92.0 fL Normal 82.6-102.9 [facility] Comment on above: Performed By: #### L IP, CDP, CMPX #### [facility] [address] [place] [address] Blood Or Blood Bank Technician: Freedom Fong MD Monocytes (Bld) [#/Vol] 0.57 10*3/uL Normal 0.10-1.20 [facility] Comment on above: Performed By: #### L IP, CDP, CMPX #### [facility] [address] [place] [address] Blood Or Blood Bank Technician: Freedom Fong MD Monocytes/100 WBC (Bld) 5 % Normal 3-12 [facility] Comment on above: Performed By: #### L IP, CDP, CMPX #### [facility] [address] [place] [address] Blood Or Blood Bank Technician: Freedom Fong MD Neutrophil (Seg) 57 % Normal 36-65 [facility] Comment on above: Performed By: #### L IP, CDP, CMPX #### [facility] [address] [place] [address] Blood Or Blood Bank Technician: Freedom Fong MD NRBC Automated 0.0 per 100 WBC Normal 0.0 [facility] Comment on above: Performed By: #### L IP, CDP, CMPX #### [facility] [address] [place] [address] Blood Or Blood Bank Technician: Freedom Fong MD Platelet mean volume (Bld) [Entitic vol] 9.1 fL Normal 8.1-13.5 [facility] Comment on above: Performed By: #### L IP, CDP, CMPX #### [facility] [address] [place] [address] Blood Or Blood Bank Technician: Freedom Fong MD Platelets (Bld) [#/Vol] 262 10*3/uL Normal 138-453 [facility] Comment on above: Performed By: #### L IP, CDP, CMPX #### [facility] [address] [place] [address] Blood Or Blood Bank Technician: Freedom Fong MD RBC (Bld) [#/Vol] 4.13 10*6/uL Normal 3.95-5.11 [facility] Comment on above: Performed By: #### L IP, CDP, CMPX #### [facility] [address] [place] [address] Blood Or Blood Bank Technician: Freedom Fong MD WBC (Bld) [#/Vol] 11.9 10*3/uL High 3.5-11.3 [facility] Comment on above: Performed By: #### L IP, CDP, CMPX #### [facility] [address] [place] [address] Blood Or Blood Bank Technician: Freedom Fong MD Auto Diff Performed NOT REPORTED Normal [facility] Comment on above: Performed By: #### L IP, CDP, CMPX #### [facility] [address] [place] [address] Blood Or Blood Bank Technician: Freedom Fong MD Platelets (Bld) [#/Vol] NOT REPORTED Normal [facility] Comment on above: Performed By: #### L IP, CDP, CMPX #### [facility] [address] [facility] [place] [address] Blood Or Blood Bank Technician: Freedom Fong MD RBC morphology finding Nom (Bld) NOT REPORTED Normal [facility] Comment on above: Performed By: #### L IP, CDP, CMPX #### [facility] [address] [facility] [address] Blood Or Blood Bank Technician: Freedom Fong MD WBC Morphology NOT REPORTED Normal [facility] Comment on above: Performed By: #### L IP, CDP, CMPX #### [facility] [address] [place] [address] Blood Or Blood Bank Technician: Freedom Fong MD CT ABDOMEN PELVIS WO CONTRAS Ton 03-10-2020 CT ABDOMEN PELVIS WO CONTRAST EXAMINATION: CT OF THE ABDOMEN AND PELVIS WITHOUT CONTRAST 03/10/2020 12:53 am TECHNIQUE: CT of the abdomen and pelvis was performed without the administration of intravenous contrast. Multiplanar reformatted images are provided for review. Dose modulation, iterative reconstruction, and/or weight based adjustment of the mA/kV was utilized to reduce the radiation dose to as low as reasonably achievable. COMPARISON: 12/13/2019 HISTORY: ORDERING SYSTEM PROVIDED HISTORY: left flank pain TECHNOLOGIST PROVIDED HISTORY: left flank pain Is the patient ?->No Reason for Exam: Left flank pain, vomiting, nausea, Hx: diabetes, htn, asthma, tubal ligation, cholecystectomy Acuity: Acute Type of Exam: Initial FINDINGS: Lower Chest: Lung bases are clear. Organs: Gallbladder is absent. Otherwise noncontrast of the liver, spleen, adrenal glands, kidneys, and pancreas are grossly no nephrolithiasis. No hydronephrosis. No ureteral calculi. GI/Bowel: Retained stool throughout colon. No bowel obstruction. Mild scattered colonic diverticulosis. Appendix unremarkable Pelvis: Uterus unremarkable. No adnexal mass. Bladder is unremarkable. Peritoneum/Retroperitoneu m: Trace free fluid within the dependent pelvis. No free air. The aorta is unremarkable caliber. Bones/Soft Tissues: No suspicious osseous lesion. IMPRESSION: Negative nephrolithiasis or obstructive uropathy. Mild scattered colonic diverticulosis. Interpreted by: Giorgio Lucas MD Signed by: Giorgio Lucas MD 03/10/20 Final result Normal [facility] CT ABDOMEN PELVIS WO CONTRAS T Additional Contrast? Noneon 03-10-2020 Negative nephrolithi asis or obstructive uropathy. Mild scattered colonic diverticulosis. [facility]- [place], [place] Michael, Mhpn Incoming Radiant Results From [employer] - 03/10/2020 1:55 AM EST EXAMINATION: CT OF THE ABDOMEN AND PELVIS WITHOUT CONTRAST 03/10/2020 12:53 am TECHNIQUE: CT of the abdomen and pelvis was performed without the administration of intravenous contrast. Multiplanar reformatted images are provided for review. Dose modulation, iterative reconstruction, and/or weight based adjustment of the mA/kV was utilized to reduce the radiation dose to as low as reasonably achievable. COMPARISON: 12/13/2019 HISTORY: ORDERING SYSTEM PROVIDED HISTORY: left flank pain TECHNOLOGIST PROVIDED HISTORY: left flank pain Is the patient ?->No Reason for Exam: Left flank pain, vomiting, nausea, Hx: diabetes, htn, asthma, tubal ligation, cholecystectomy Acuity: Acute Type of Exam: Initial FINDINGS: Lower Chest: Lung bases are clear. Organs: Gallbladder is absent. Otherwise noncontrast of the liver, spleen, adrenal glands, kidneys, and pancreas are grossly no nephrolithiasis. No hydronephrosis. No ureteral calculi. GI/Bowel: Retained stool throughout colon. No bowel obstruction. Mild scattered colonic diverticulosis. Appendix unremarkable Pelvis: Uterus unremarkable. No adnexal mass. Bladder is unremarkable. Peritoneum/Retroperitoneu m: Trace free fluid within the dependent pelvis. No free air. The aorta is unremarkable caliber. Bones/Soft Tissues: No suspicious osseous lesion. IMPRESSION: Negative nephrolithiasis or obstructive uropathy. Mild scattered colonic diverticulosis. [place], [place] EXAMINATION: CT OF T HE ABDOMEN AND PELVIS WITHOUT CONTRAST 03/10/2020 12:53 am TECHNIQUE: CT of the abdomen and pelvis was performed without the administration of intravenous contrast. Multiplanar reformatted images are provided for review. Dose modulation, iterative reconstruction, and/or weight based adjustment of the mA/kV was utilized to reduce the radiation dose to as low as reasonably achievable. COMPARISON: 12/13/2019 HISTORY: ORDERING SYSTEM PROVIDED HISTORY: left flank pain TECHNOLOGIST PROVIDED HISTORY: left flank pain Is the patient ?->No Reason for Exam: Left flank pain, vomiting, nausea, Hx: diabetes, htn, asthma, tubal ligation, cholecystectomy Acuity: Acute Type of Exam: Initial FINDINGS: Lower Chest: Lung bases are clear. Organs: Gallbladder is absent. Otherwise noncontrast of the liver, spleen, adrenal glands, kidneys, and pancreas are grossly no nephrolithiasis. No hydronephrosis. No ureteral calculi. GI/Bowel: Retained stool throughout colon. No bowel obstruction. Mild scattered colonic diverticulosis. Appendix unremarkable Pelvis: Uterus unremarkable. No adnexal mass. Bladder is unremarkable. Peritoneum/Retroperitoneu m: Trace free fluid within the dependent pelvis. No free air. The aorta is unremarkable caliber. Bones/Soft Tissues: No suspicious osseous lesion. [place] Comp Metabolic Pr/rfx MGon 0 03-10-2020 (cont.) Normal [facility] Comment on above: Result Comment: Aver age GFR for 30-39 years old: 107 mL/min/1.73sq m Chronic Kidney Disease: <60 mL/min/1.73sq m Kidney failure: <15 mL/min/1.73sq m eGFR calculated using average adult body mass. Additional eGFR calculator available at: http://www.[employer]/multiple_crcl_2012.htm Performed By: #### L IP, CDP, CMPX #### [facility] [address] [place] [address] Blood Or Blood Bank Technician: Freedom Fong MD Albumin [Mass/Vol] 3.6 g/dL Normal 3.5-5.2 [facility] Comment on above: Performed By: #### L IP, CDP, CMPX #### [facility] [address] [place] [address] Blood Or Blood Bank Technician: Freedom Fong MD Alkaline Phos 140 U/L High 35-104 [facility] Comment on above: Performed By: #### L IP, CDP, CMPX #### [facility] [address] [place] [address] Blood Or Blood Bank Technician: Freedom Fong MD ALT [Catalytic activity/Vol] U/L Low 5-33 [facility] Comment on above: Performed By: #### L IP, CDP, CMPX #### [facility] [address] [place] [address] Blood Or Blood Bank Technician: Freedom Fong MD Anion gap [Moles/Vol] 11 mmol/L Normal 9-17 [facility] Comment on above: Performed By: #### L IP, CDP, CMPX #### [facility] [address] [place] [address] Blood Or Blood Bank Technician: Freedom Fong MD AST [Catalytic activity/Vol] U/L Normal <32 [facility] Comment on above: Performed By: #### L IP, CDP, CMPX #### [facility] [address] [place] [address] Blood Or Blood Bank Technician: Freedom Fong MD Bilirubin Ql (U) 0.11 mg/dL Low 0.3-1.2 [facility] Comment on above: Performed By: #### L IP, CDP, CMPX #### [facility] [address] [place] [address] Blood Or Blood Bank Technician: Freedom Fong MD BUN/CRE Ratio 21 High 9-20 [facility] Comment on above: Performed By: #### L IP, CDP, CMPX #### [facility] [address] [place] [address] Blood Or Blood Bank Technician: Freedom Fong MD Calcium [Mass/Vol] 8.6 mg/dL Normal 8.6-10.4 [facility] Comment on above: Performed By: #### L IP, CDP, CMPX #### [facility] [address] [facility] [address] Blood Or Blood Bank Technician: Freedom Fong MD Chloride [Moles/Vol] 102 mmol/L Normal 98-107 [facility] Comment on above: Performed By: #### L IP, CDP, CMPX #### [facility] [address] [place], [place] [address]ia [facility] [address] Blood Or Blood Bank Technician: Freedom Fong MD CO2 [Moles/Vol] 21 mmol/L Normal 20-31 [facility] Comment on above: Performed By: #### L IP, CDP, CMPX #### [facility] [place] [address] Blood Or Blood Bank Technician: Freedom Fong MD Creatinine [Mass/Vol] 0.61 mg/dL Normal 0.50-0.90 [facility] Comment on above: Performed By: #### L IP, CDP, CMPX #### [facility] [address] [facility] [place] [address] Blood Or Blood Bank Technician: Freedom Fong MD GFR, Amer >60 Normal >60 [facility] Comment on above: Performed By: #### L IP, CDP, CMPX #### [facility] [place] [address] Blood Or Blood Bank Technician: Freedom Fong MD GFR,non Amer >60 Normal >60 [facility] Comment on above: Performed By: #### L IP, CDP, CMPX #### [facility] [address] [place] [address] Blood Or Blood Bank Technician: Freedom Fong MD Glucose [Mass/Vol] 102 mg/dL High 70-99 [facility] Comment on above: Performed By: #### L IP, CDP, CMPX #### [facility] [address] [place] [address] Blood Or Blood Bank Technician: Freedom Fong MD Potassium [Moles/Vol] 3.9 mmol/L Normal 3.7-5.3 [facility] Comment on above: Performed By: #### L IP, CDP, CMPX #### [facility] [address] [place] [address] Blood Or Blood Bank Technician: Freedom Fong MD Protein [Mass/Vol] 7.2 g/dL Normal 6.4-8.3 [facility] Comment on above: Performed By: #### L IP, CDP, CMPX #### [facility] [address] [place] [address] Blood Or Blood Bank Technician: Freedom Fong MD Sodium [Moles/Vol] 134 mmol/L Low 135-144 [facility] Comment on above: Performed By: #### L IP, CDP, CMPX #### [facility] [address] [place] [address] Blood Or Blood Bank Technician: Freedom Fong MD Urea nitrogen [Mass/Vol] 13 mg/dL Normal 6-20 [facility] Comment on above: Performed By: #### L IP, CDP, CMPX #### [facility] [address] [place] [address] Blood Or Blood Bank Technician: Freedom Fong MD Albumin/Globulin [Mass ratio] NOT REPORTED Normal 1.0-2.5 [facility] Comment on above: Performed By: #### L IP, CDP, CMPX #### [facility] [address] [place], [place] [id number] Blood Or Blood Bank Technician: Freedom Fong MD Staging: NOT REPORTED Normal [facility] Comment on above: Performed By: #### L IP, CDP, CMPX #### [facility] [address] [place] [address] Blood Or Blood Bank Technician: Freedom Fong MD Comprehensive Metabolic Pane l w/ Reflex to [facility] 03-10-2020 Albumin [Mass/Vol] 3.6 g/dL 3.5 - 5.2 g/dL [place] Albumin/Globulin [Mass ratio] NOT REPORTED [place] ALP [Catalytic activity/Vol] 140 U/L High 35 - 104 U/L [place] ALT [Catalytic activity/Vol] U/L Low 5 - 33 U/L [place] Anion gap [Moles/Vol] 11 mmol/L 9 - 17 mmol/L [place] AST [Catalytic activity/Vol] U/L <32 U/L [place] Bilirubin Ql (U) 0.11 mg/dL Low 0.3 - 1.2 mg/dL [place] Bun/Cre Ratio 21 High [place] Calcium [Mass/Vol] 8.6 mg/dL 8.6 - 10. 4 mg/dL [place] Chloride [Moles/Vol] 102 mmol/L 98 - 10 7 mmol/L [place] CO2 [Moles/Vol] 21 mmol/L 20 - 31 mmol/L [place] Creatinine [Mass/Vol] 0.61 mg/dL 0.5 - 0.9 mg/dL [place] GFR >60 >60 mL/min [place] GFR Non- >60 >60 mL/min [place] GFR/1.73 sq M predicted among non-blacks MDRD (S/P/Bld) [Vol rate/Area] [place] Comment on above: Average GFR for 30-3 9 years old: 107 mL/min/1.73sq m Chronic Kidney Disease: <60 mL/min/1.73sq m Kidney failure: <15 mL/min/1.73sq m eGFR calculated using average adult body mass. Additional eGFR calculator available at: http://www.[employer]/multiple_crcl_2012.htm GFR/1.73 sq M predicted among non-blacks MDRD (S/P/Bld) [Vol rate/Area] NOT REPORTED [place] Glucose [Mass/Vol] 102 mg/dL High 70 - 99 mg/dL [place] Interpretation and review of laboratory results Abnormal [place] Potassium [Moles/Vol] 3.9 mmol/L 3.7 - 5.3 mmol/L [place] Protein [Mass/Vol] 7.2 g/dL 6.4 - 8.3 g/dL [place] Sodium [Moles/Vol] 134 mmol/L Low 135 - 144 mmol/L [place] Urea nitrogen [Mass/Vol] 13 mg/dL 6 - 20 mg/dL [place] Lipaseon 03-10-2020 Lipase [Catalytic activity/Vol] 25 U/L Normal 13-60 [facility] Comment on above: Performed By: #### L IP, CDP, CMPX #### [facility] [address] [place] [address] Blood Or Blood Bank Technician: Freedom Fong MD Lipase [Catalytic activity/Vol] 25 U/L 13 - 60 U/L [place] Microscopic Urinalysison Amorphous, UA NOT REPORTED None [place] Bacteria, UA MODERATE Abnormal None [place] Casts UA NOT REPORTED /LPF [place] Crystals, UA NOT REPORTED None /HPF [place] Epithelial Cells UA 2 TO 5 [place] Interpretation and review of laboratory results Abnormal [place] Mucus, UA NOT REPORTED None [place] Other Observations UA NOT REPORTED NOT REQ. M [place] RBC (U) [#/Vol] TOO NUMEROUS TO COUNT [place] Renal Epithelial, UA NOT REPORTED 0 /HPF [place] Trichomonas, UA NOT REPORTED None [place], [place] WBC, UA 5 TO 10 [place] Yeast, UA NOT REPORTED None [place] - [place] POCT Urine Pregnancyon 03-10 Interpretation and review of laboratory results Normal [place] Preg Test, Ur Negative [place], [place] QC OK? ok [place] UA w/Reflex Cultureon 2020 Acetoacetic Acid,Ur Negative Normal NEG [facility] Comment on above: Performed By: #### U AX, UMICAO #### [facility] [address] [facility] [place] [address] Blood Or Blood Bank Technician: Freedom Fong MD Bilirubin, SemiQt,Ur Negative Normal NEG [facility] Comment on above: Performed By: #### U AX, UMICAO #### [facility] [address] [facility] [place] [address] Blood Or Blood Bank Technician: Freedom Fong MD Color (U) RED Abnormal YEL [facility] Comment on above: Performed By: #### U AX, UMICAO #### [facility] [address] [facility] [address] Blood Or Blood Bank Technician: Freedom Fong MD Glucose Ql (U) Negative Normal NEG [facility] Comment on above: Performed By: #### U AX, UMICAO #### [facility] [address] [place] [address] Blood Or Blood Bank Technician: Freedom Fong MD Hemoglobin, Ur 3+ Abnormal NEG [facility] Comment on above: Performed By: #### U AXDAVIDO #### [facility] [address] [place] [address] Blood Or Blood Bank Technician: Freedom Fong MD Leukocyte esterase Test strip Ql (U) TRACE Abnormal NEG [facility] Comment on above: Performed By: #### U AXMILAGRO #### [facility] [address] [facility] [place] [address] Blood Or Blood Bank Technician: Freedom Fong MD Nitrite,Ur Negative Normal NEG [facility] Comment on above: Performed By: #### U MILAGRO WHITE #### [facility] [address] [place] [address]. [place] [address] Blood Or Blood Bank Technician: Freedom Fong MD pH (U) 6.0 [pH] Normal 5.0-8.0 [facility] Comment on above: Performed By: #### U MILAGRO WHITE #### [facility] [place] [address] Blood Or Blood Bank Technician: Freedom Fong MD Protein Ql (U) 1+ Abnormal NEG [facility] Comment on above: Performed By: #### U MILAGRO WHITE #### [facility] [address] [facility] [place] [address] Blood Or Blood Bank Technician: Freedom Fong MD Specific gravity (U) [Rel density] 1.029 Normal 1.005-1.03 0 [facility] Comment on above: Performed By: #### U AXDAVIDO #### [facility] [address] [facility] [place] [address] Blood Or Blood Bank Technician: Freedom Fong MD Turbidity CLOUDY Abnormal CLEAR [facility] Comment on above: Performed By: #### U AX, UMICAO #### [facility] [address] [facility] [place] [address] Blood Or Blood Bank Technician: Freedom Fong MD Urobilinogen,Ur Normal Normal NORM [facility] Comment on above: Performed By: #### U AX, UMICAO #### [facility] [address] [facility] [place] [address] Blood Or Blood Bank Technician: Freedom Fong MD Comment NOT REPORTED Normal [facility] Comment on above: Performed By: #### U AX, UMICAO #### [facility] [address] [facility] [place] [address] Blood Or Blood Bank Technician: Freedom Fong MD Urinalysis Reflex to Culture on 03-10-2020 Bilirubin Urine Negative NEGATIVE [place] Color, UA RED Abnormal YELLOW [place] Glucose, Ur Negative NEGATIVE [place] Interpretation and review of laboratory results Abnormal [place] Ketones Ql (U) Negative NEGATIVE [place] Leukocyte esterase Test strip Ql (U) TRACE Abnormal NEGATIVE [place] Nitrite, Urine Negative NEGATIVE [place] pH, UA 6.0 [place] Protein (U) [Mass/Vol] 1+ Abnormal NEGATIVE [place] Specific [place], UA 1.029 [place] Turbidity UA CLOUDY Abnormal CLEAR [place] Urinalysis Comments NOT REPORTED [place], [place] Urine Hgb 3+ Abnormal NEGATIVE [place] Urobilinogen, Urine Normal Normal [place] Urinalysis,Microon 1 ----- Normal [facility] Comment on above: Performed By: #### U AX, UMICAO #### [facility] [address] [facility] [place] [address] Blood Or Blood Bank Technician: Freedom Fong MD Bacteria LM.HPF (Urine sed) [#/Area] MODERATE Abnormal NONE [facility] Comment on above: Performed By: #### U AX, UMICAO #### [facility] [address] [place] [address] Blood Or Blood Bank Technician: Freedom Fong MD Epithelial cells LM.HPF (Urine sed) [#/Area] 2 TO 5 Normal 0-5 [facility] Comment on above: Performed By: #### U AX, UMICAO #### [facility] [address] [place] [address]. [place] [address] Blood Or Blood Bank Technician: Freedom Fong MD RBC (U) [#/Vol] TOO NUMEROUS TO COUNT Normal 0-2 [facility] Comment on above: Performed By: #### U AX, UMICAO #### [facility] [address] [place] [address]. [place] [address] Blood Or Blood Bank Technician: Freedom Fong MD WBC (U) [#/Vol] 5 TO 10 Normal 05 [facility] Comment on above: Performed By: #### U AX, UMICAO #### [facility] [address] [place] [address]. [place] [address] Blood Or Blood Bank Technician: Freedom Fong MD Amorphous sediment LM Ql (Urine sed) NOT REPORTED Normal NONE [facility] Comment on above: Performed By: #### U AX, UMICAO #### [facility] [facility] [address] Blood Or Blood Bank Technician: Freedom Fong MD Casts LM.LPF (Urine sed) [#/Area] NOT REPORTED Normal [facility] Comment on above: Performed By: #### U AX, UMICAO #### [facility] [address] [place], [place] [address]ia [facility] [place] [address] Blood Or Blood Bank Technician: Freedom Fnog MD Crystals LM Nom (Urine sed) NOT REPORTED Normal NONE [facility] Comment on above: Performed By: #### U AX, UMICAO #### [facility] [address] [place] [address] Blood Or Blood Bank Technician: Freedom Fong MD Epithelial, Renal NOT REPORTED Normal 0 [facility] Comment on above: Performed By: #### U AX, UMICAO #### [facility] [address] [place] [address] Blood Or Blood Bank Technician: Freedom Fong MD Mucus Strands NOT REPORTED Normal NONE [facility] Comment on above: Performed By: #### U AX, UMICAO #### [facility] [address] [place] [address] Blood Or Blood Bank Technician: Freedom Fong MD Other Observations NOT REPORTED Normal NREQ [facility] Comment on above: Performed By: #### U AX, UMICAO #### [facility] [address] [place] [address] Blood Or Blood Bank Technician: Freedom Fong MD Trichomonas NOT REPORTED Normal NONE [facility] Comment on above: Performed By: #### U AX, UMICAO #### [facility] [address] [place] [address] Blood Or Blood Bank Technician: Freedom Fong MD Yeast LM Ql (Urine sed) NOT REPORTED Normal NONE [facility] Comment on above: Performed By: #### U AX, UMICAO #### [facility] [address] [place] [address] Blood Or Blood Bank Technician: Freedom Fong MD Basic Metabolic Panelon 11-0 Anion gap [Moles/Vol] 11 mmol/L 9 - 17 mmol/L [facility], [place] Bun/Cre Ratio NOT REPORTED [place] Calcium [Mass/Vol] 8.9 mg/dL 8.6 - 10. 4 mg/dL [place] Chloride [Moles/Vol] 105 mmol/L 98 - 10 7 mmol/L [place] CO2 [Moles/Vol] 24 mmol/L 20 - 31 mmol/L [place] Creatinine [Mass/Vol] 0.67 mg/dL 0.5 - 0.9 mg/dL [place] GFR >60 >60 mL/min [place] GFR Non- >60 >60 mL/min [place] GFR/1.73 sq M predicted among non-blacks MDRD (S/P/Bld) [Vol rate/Area] [place] Comment on above: Average GFR for 30-3 9 years old: 107 mL/min/1.73sq m Chronic Kidney Disease: <60 mL/min/1.73sq m Kidney failure: <15 mL/min/1.73sq m eGFR calculated using average adult body mass. Additional eGFR calculator available at: http://www.[employer]/multiple_crcl_2012.htm GFR/1.73 sq M predicted among non-blacks MDRD (S/P/Bld) [Vol rate/Area] NOT REPORTED [place] Glucose [Mass/Vol] 110 mg/dL High 70 - 99 mg/dL [place] Interpretation and review of laboratory results Abnormal [place] Potassium [Moles/Vol] 3.9 mmol/L 3.7 - 5.3 mmol/L [place] Sodium [Moles/Vol] 140 mmol/L 135 - 144 mmol/L [place] Urea nitrogen [Mass/Vol] 12 mg/dL 6 - 20 mg/dL [place] CBC With Auto Differentialon 12-31-2019 Basophils (Bld) [#/Vol] 0.05 10*3/uL [place] Basophils/100 WBC (Bld) 1 % 0 - 2 % [place] Differential Type NOT REPORTED [place] Eosinophils (Bld) [#/Vol] 0.27 10*3/uL [place] Eosinophils/100 WBC (Bld) 3 % 1 - 4 % [place] Erythrocyte distribution width (RBC) [Ratio] 12.6 % 11.8 - 14.4 % [place] Hematocrit (Bld) [Volume fraction] 40.9 % 36.3 - 47.1 % [place] Hemoglobin (Bld) [Mass/Vol] 12.8 g/dL 11.9 - 15.1 g/dL [place] Immature granulocytes (Bld) [#/Vol] 0.04 10*3/uL [place] Immature granulocytes (Bld) [#/Vol] 0 % 0 [place] Lymphocytes (Bld) [#/Vol] 2.84 10*3/uL [place] Lymphocytes/100 WBC (Bld) 27 % 24 - 43 % [place] MCH (RBC) [Entitic mass] 29.0 pg 25.2 - 33.5 pg [place] MCHC (RBC) [Mass/Vol] 31.3 g/dL 28.4 - 34.8 g/dL [place] MCV (RBC) [Entitic vol] 92.5 fL 82.6 - 102.9 fL [place] Monocytes (Bld) [#/Vol] 0.75 10*3/uL [place] Monocytes/100 WBC (Bld) 7 % 3 - 12 % [place] Platelet mean volume (Bld) [Entitic vol] 9.1 fL 8.1 - 13.5 fL [place] Platelets (Bld) [#/Vol] 262 10*3/uL [place] Platelets (Bld) [#/Vol] NOT REPORTED [place] RBC (Bld) [#/Vol] 4.42 10*6/uL 3.95 - 5.11 m/uL [place] RBC morphology finding Nom (Bld) NOT REPORTED [place] Segmented neutrophils/100 WBC (Bld) 62 % 36 - 65 % [place] Segs Absolute 6.55 [place] WBC (Bld) [#/Vol] 0.0 10*3/uL 0.0 per 100 WBC [place] WBC (Bld) [#/Vol] 10.5 10*3/uL [place] WBC Morphology NOT REPORTED [place], [place] Microscopic Urinalysison Amorphous, UA NOT REPORTED None [place] Bacteria, UA NOT REPORTED None [place], [place] Casts UA 10 TO 20 HYALINE Reference range defined for non-centrifuged specimen. [place] Crystals, UA NOT REPORTED None /HPF [place] Epithelial Cells UA 5 TO 10 [place] Mucus, UA NOT REPORTED None [place] Other Observations UA NOT REPORTED NOT REQ. M [place] RBC (U) [#/Vol] 2 TO 5 [place] Comment on above: Reference range defi balaji for non-centrifuged specimen. Renal Epithelial, UA NOT REPORTED 0 /HPF [place] Trichomonas, UA NOT REPORTED None [place], [place] WBC, UA 20 TO 50 [place] Yeast, UA NOT REPORTED None [place] - [place] Urinalysis Reflex to Culture on 12-31-2019 Bilirubin Urine Negative NEGATIVE [place] Color, UA YELLOW YELLOW [place] Glucose, Ur Negative NEGATIVE [place] Interpretation and review of laboratory results Abnormal [place] Ketones Ql (U) Negative NEGATIVE [place] Leukocyte esterase Test strip Ql (U) TRACE Abnormal NEGATIVE [place] Nitrite, Urine Negative NEGATIVE [place], [place] pH, UA 5.0 [place], [place] Protein (U) [Mass/Vol] Negative NEGATIVE [place], [place] Specific [place], UA 1.034 [place] Turbidity UA CLOUDY Abnormal CLEAR [place] Urinalysis Comments NOT REPORTED [place], [place] Urine Hgb Negative NEGATIVE [place] Urobilinogen, Urine Normal Normal [place] Basic Metabolic Panel w/ Ref cheikh to MGon 12-17-2019 Anion gap [Moles/Vol] 10 mmol/L 9 - 17 mmol/L [place], [place] Bun/Cre Ratio NOT REPORTED [place] Calcium [Mass/Vol] 8.7 mg/dL 8.6 - 10. 4 mg/dL [place] Chloride [Moles/Vol] 105 mmol/L 98 - 10 7 mmol/L [place] CO2 [Moles/Vol] 24 mmol/L 20 - 31 mmol/L [place] Creatinine [Mass/Vol] 0.54 mg/dL 0.5 - 0.9 mg/dL [place] GFR >60 >60 mL/min [place] GFR Non- >60 >60 mL/min [place] GFR/1.73 sq M predicted among non-blacks MDRD (S/P/Bld) [Vol rate/Area] NOT REPORTED [place] GFR/1.73 sq M predicted among non-blacks MDRD (S/P/Bld) [Vol rate/Area] [place], [place] Comment on above: Average GFR for 30-3 9 years old: 107 mL/min/1.73sq m Chronic Kidney Disease: <60 mL/min/1.73sq m Kidney failure: <15 mL/min/1.73sq m eGFR calculated using average adult body mass. Additional eGFR calculator available at: http://www.iFrat Wars.ApptheGame/multiple_crcl_2011.htm Glucose [Mass/Vol] 85 mg/dL 70 - 99 mg/dL [place] Potassium [Moles/Vol] 3.8 mmol/L 3.7 - 5.3 mmol/L [place] Sodium [Moles/Vol] 139 mmol/L 135 - 144 mmol/L [place] Urea nitrogen [Mass/Vol] 7 mg/dL 6 - 20 mg/dL [place] CBC auto differentialon 11-27 Basophils (Bld) [#/Vol] 0.03 10*3/uL [place] Basophils/100 WBC (Bld) 0 % 0 - 2 % [place] Differential Type NOT REPORTED [place] Eosinophils (Bld) [#/Vol] 0.20 10*3/uL [place] Eosinophils/100 WBC (Bld) 2 % 1 - 4 % [place] Erythrocyte distribution width (RBC) [Ratio] 11.9 % 11.8 - 14.4 % [place] Hematocrit (Bld) [Volume fraction] 33.1 % Low 36.3 - 47.1 % [place] Hemoglobin (Bld) [Mass/Vol] 10.5 g/dL Low 11.9 - 15.1 g/dL [place] Immature granulocytes (Bld) [#/Vol] 0.04 10*3/uL [place] Immature granulocytes (Bld) [#/Vol] 0 % 0 [place] Interpretation and review of laboratory results Abnormal [place] Lymphocytes (Bld) [#/Vol] 3.58 10*3/uL [place] Lymphocytes/100 WBC (Bld) 35 % 24 - 43 % [place] MCH (RBC) [Entitic mass] 29.6 pg 25.2 - 33.5 pg [place] MCHC (RBC) [Mass/Vol] 31.7 g/dL 28.4 - 34.8 g/dL [place] MCV (RBC) [Entitic vol] 93.2 fL 82.6 - 102.9 fL [place] Monocytes (Bld) [#/Vol] 0.64 10*3/uL [place] Monocytes/100 WBC (Bld) 6 % 3 - 12 % [place] Platelet mean volume (Bld) [Entitic vol] 9.4 fL 8.1 - 13.5 fL [place] Platelets (Bld) [#/Vol] 195 10*3/uL [place] Platelets (Bld) [#/Vol] NOT REPORTED [place] RBC (Bld) [#/Vol] 3.55 10*6/uL Low 3.95 - 5.11 m/uL [place], [place] RBC morphology finding Nom (Bld) NOT REPORTED [place], [place] Segmented neutrophils/100 WBC (Bld) 57 % 36 - 65 % [place] Segs Absolute 5.63 [place], [place] WBC (Bld) [#/Vol] 0.0 10*3/uL 0.0 per 100 WBC [place] WBC (Bld) [#/Vol] 10.1 10*3/uL [place] WBC Morphology NOT REPORTED [place], [place] Basic Metabolic Panel w/ Ref cheikh to MGon 12-16-2019 Anion gap [Moles/Vol] 9 mmol/L 9 - 17 mmol/L [place] Bun/Cre Ratio NOT REPORTED [place] Calcium [Mass/Vol] 8.7 mg/dL 8.6 - 10. 4 mg/dL [place], [place] Chloride [Moles/Vol] 105 mmol/L 98 - 10 7 mmol/L [place] CO2 [Moles/Vol] 22 mmol/L 20 - 31 mmol/L [place] Creatinine [Mass/Vol] 0.63 mg/dL 0.5 - 0.9 mg/dL [place] GFR >60 >60 mL/min [place] GFR Non- >60 >60 mL/min [place] GFR/1.73 sq M predicted among non-blacks MDRD (S/P/Bld) [Vol rate/Area] [place], [place] Comment on above: Average GFR for 30-3 9 years old: 107 mL/min/1.73sq m Chronic Kidney Disease: <60 mL/min/1.73sq m Kidney failure: <15 mL/min/1.73sq m eGFR calculated using average adult body mass. Additional eGFR calculator available at: http://www.iFrat Wars.ApptheGame/multiple_crcl_2012.htm GFR/1.73 sq M predicted among non-blacks MDRD (S/P/Bld) [Vol rate/Area] NOT REPORTED [place], [place] Glucose [Mass/Vol] 87 mg/dL 70 - 99 mg/dL [place] Potassium [Moles/Vol] 4.1 mmol/L 3.7 - 5.3 mmol/L [place] Sodium [Moles/Vol] 136 mmol/L 135 - 144 mmol/L [place], [place] Urea nitrogen [Mass/Vol] 7 mg/dL 6 - 20 mg/dL [place] CBC auto differentialon 10-2 0-2020 Basophils (Bld) [#/Vol] 0.05 10*3/uL [place] Basophils/100 WBC (Bld) 1 % 0 - 2 % [place] Differential Type NOT REPORTED [place] Eosinophils (Bld) [#/Vol] 0.19 10*3/uL [place] Eosinophils/100 WBC (Bld) 2 % 1 - 4 % [place] Erythrocyte distribution width (RBC) [Ratio] 12.1 % 11.8 - 14.4 % [place] Hematocrit (Bld) [Volume fraction] 34.6 % Low 36.3 - 47.1 % [place] Hemoglobin (Bld) [Mass/Vol] 10.6 g/dL Low 11.9 - 15.1 g/dL [place], [place] Immature granulocytes (Bld) [#/Vol] 0 % 0 [place] Immature granulocytes (Bld) [#/Vol] 0.04 10*3/uL [place] Interpretation and review of laboratory results Abnormal [place] Lymphocytes (Bld) [#/Vol] 3.78 10*3/uL [place] Lymphocytes/100 WBC (Bld) 39 % 24 - 43 % [place] MCH (RBC) [Entitic mass] 29.2 pg 25.2 - 33.5 pg [place] MCHC (RBC) [Mass/Vol] 30.6 g/dL 28.4 - 34.8 g/dL [place] MCV (RBC) [Entitic vol] 95.3 fL 82.6 - 102.9 fL [place] Monocytes (Bld) [#/Vol] 0.64 10*3/uL [place] Monocytes/100 WBC (Bld) 7 % 3 - 12 % [place] Platelet mean volume (Bld) [Entitic vol] 9.2 fL 8.1 - 13.5 fL [place] Platelets (Bld) [#/Vol] NOT REPORTED [place] Platelets (Bld) [#/Vol] 199 10*3/uL [place] RBC (Bld) [#/Vol] 3.63 10*6/uL Low 3.95 - 5.11 m/uL [place], [place] RBC morphology finding Nom (Bld) NOT REPORTED [place] Segmented neutrophils/100 WBC (Bld) 51 % 36 - 65 % [place] Segs Absolute 5.05 [place] WBC (Bld) [#/Vol] 9.8 10*3/uL [place] WBC (Bld) [#/Vol] 0.0 10*3/uL 0.0 per 100 WBC [place] WBC Morphology NOT REPORTED [place] Basic Metabolic Panel w/ Ref cheikh to MGon 12-15-2019 Anion gap [Moles/Vol] 10 mmol/L 9 - 17 mmol/L [place] Bun/Cre Ratio NOT REPORTED [place] Calcium [Mass/Vol] 8.2 mg/dL Low 8.6 - 10. 4 mg/dL [place] Chloride [Moles/Vol] 105 mmol/L 98 - 10 7 mmol/L [place] CO2 [Moles/Vol] 22 mmol/L 20 - 31 mmol/L [place] Creatinine [Mass/Vol] 0.63 mg/dL 0.5 - 0.9 mg/dL [place] GFR >60 >60 mL/min [place] GFR Non- >60 >60 mL/min [place] GFR/1.73 sq M predicted among non-blacks MDRD (S/P/Bld) [Vol rate/Area] [place], [place] Comment on above: Average GFR for 30-3 9 years old: 107 mL/min/1.73sq m Chronic Kidney Disease: <60 mL/min/1.73sq m Kidney failure: <15 mL/min/1.73sq m eGFR calculated using average adult body mass. Additional eGFR calculator available at: http://www.Novacem/multiple_crcl_2012.htm GFR/1.73 sq M predicted among non-blacks MDRD (S/P/Bld) [Vol rate/Area] NOT REPORTED [place], [place] Glucose [Mass/Vol] 102 mg/dL High 70 - 99 mg/dL [place] Interpretation and review of laboratory results Abnormal [place] Potassium [Moles/Vol] 3.6 mmol/L Low 3.7 - 5.3 mmol/L [place], [place] Sodium [Moles/Vol] 137 mmol/L 135 - 144 mmol/L [place], [place] Urea nitrogen [Mass/Vol] 10 mg/dL 6 - 20 mg/dL [place] CBC auto differentialon 11-26 Basophils (Bld) [#/Vol] 0.05 10*3/uL [place] Basophils/100 WBC (Bld) 1 % 0 - 2 % [place] Differential Type NOT REPORTED [place] Eosinophils (Bld) [#/Vol] 0.24 10*3/uL [place] Eosinophils/100 WBC (Bld) 2 % 1 - 4 % [place] Erythrocyte distribution width (RBC) [Ratio] 12.7 % 11.8 - 14.4 % [place] Hematocrit (Bld) [Volume fraction] 33.6 % Low 36.3 - 47.1 % [place] Hemoglobin (Bld) [Mass/Vol] 10.2 g/dL Low 11.9 - 15.1 g/dL [place] Immature granulocytes (Bld) [#/Vol] 0 % 0 [place] Immature granulocytes (Bld) [#/Vol] 0.03 10*3/uL [place] Interpretation and review of laboratory results Abnormal [place] Lymphocytes (Bld) [#/Vol] 3.59 10*3/uL [place] Lymphocytes/100 WBC (Bld) 34 % 24 - 43 % [place] MCH (RBC) [Entitic mass] 29.4 pg 25.2 - 33.5 pg [place] MCHC (RBC) [Mass/Vol] 30.4 g/dL 28.4 - 34.8 g/dL [place] MCV (RBC) [Entitic vol] 96.8 fL 82.6 - 102.9 fL [place] Monocytes (Bld) [#/Vol] 0.54 10*3/uL [place] Monocytes/100 WBC (Bld) 5 % 3 - 12 % [place] Platelet mean volume (Bld) [Entitic vol] 9.1 fL 8.1 - 13.5 fL [place] Platelets (Bld) [#/Vol] 213 10*3/uL [place] Platelets (Bld) [#/Vol] NOT REPORTED [place] RBC (Bld) [#/Vol] 3.47 10*6/uL Low 3.95 - 5.11 m/uL [place] RBC morphology finding Nom (Bld) NOT REPORTED [place] Segmented neutrophils/100 WBC (Bld) 58 % 36 - 65 % [place] Segs Absolute 6.11 [place] WBC (Bld) [#/Vol] 0.0 10*3/uL 0.0 per 100 WBC [place] WBC (Bld) [#/Vol] 10.6 10*3/uL [place] WBC Morphology NOT REPORTED [place] Calcium, Random Urineon 11-26 Calcium, Ur 22.2 mg/dL [place] Comment on above: No normal range esta blished. EKG 12 leadon 12-15-2019 [facility] [place] [facility]val [facility] Duration 92 ms [facility] QTc Calculation (Bazett) 450 ms [facility] SAUL R [place] 66 degrees [facility] [place] 51 degrees [facility] Ventricular Rate 76 BPM [facility] [place] Normal sinus rhythm Normal ECG When compared with ECG of 20-NOV-2014 00:15, No significant change was found [facility] Michael, Mhpn Incoming E kg Results From [employer] - 12/15/2019 1:33 PM EDT Normal sinus rhythm Normal ECG When compared with ECG of 20-NOV-2014 00:15, No significant change was found [facility] Other[facility] 12-15-2019 Negative pelvic ultrasound. Normal Doppler flow within the ovaries. [facility] [place] Michael, Mhpn Incoming Radiant Results From [employer] - 12/15/2019 12:35 PM EDT EXAMINATION: PELVIC ULTRASOUND; DOPPLER EVALUATION 12/15/2019 TECHNIQUE: Transvaginal pelvic ultrasound was performed.; DOPPLER ULTRASOUND OF THE PELVIS Color Doppler evaluation was performed. COMPARISON: None HISTORY: ORDERING SYSTEM PROVIDED HISTORY: R/O OVARIAN CYST/torsion Pain FINDINGS: Measurements: Uterus: 9.1 x 3.8 x 4.6 cm Endometrial stripe: 7 mm Right Ovary: 2.5 x 1.7 x 1.3 cm Left Ovary: 3.0 x 2.0 x 2.2 cm Ultrasound Findings: Uterus: Uterus demonstrates normal myometrial echotexture. Endometrial stripe: Endometrial stripe is normal thickness. Trace fluid in the lower uterine segment endocervical canal. Right Ovary: Right ovary is within normal limits. There is normal arterial and venous doppler flow. Left Ovary: Left ovary is within normal limits. There is normal arterial and venous doppler flow. Free Fluid: Small amount of free fluid cul-de-sac likely physiologic in nature. IMPRESSION: Negative pelvic ultrasound. Normal Doppler flow within the ovaries. [facility] EXAMINATION: PELVIC ULTRASOUND; DOPPLER EVALUATION 12/15/2019 TECHNIQUE: Transvaginal pelvic ultrasound was performed.; DOPPLER ULTRASOUND OF THE PELVIS Color Doppler evaluation was performed. COMPARISON: None HISTORY: ORDERING SYSTEM PROVIDED HISTORY: R/O OVARIAN CYST/torsion Pain FINDINGS: Measurements: Uterus: 9.1 x 3.8 x 4.6 cm Endometrial stripe: 7 mm Right Ovary: 2.5 x 1.7 x 1.3 cm Left Ovary: 3.0 x 2.0 x 2.2 cm Ultrasound Findings: Uterus: Uterus demonstrates normal myometrial echotexture. Endometrial stripe: Endometrial stripe is normal thickness. Trace fluid in the lower uterine segment endocervical canal. Right Ovary: Right ovary is within normal limits. There is normal arterial and venous doppler flow. Left Ovary: Left ovary is within normal limits. There is normal arterial and venous doppler flow. Free Fluid: Small amount of free fluid cul-de-sac likely physiologic in nature. [place] RENAL COMPLETEon 12-15-19 EXAMINATION: RETROPERITONEAL ULTRASOUND OF THE KIDNEYS AND URINARY BLADDER 12/15/2019 COMPARISON: 12/13/2019 CT HISTORY: ORDERING SYSTEM PROVIDED HISTORY: follow up TECHNOLOGIST PROVIDED HISTORY: follow up FINDINGS: Kidneys: The right kidney measures 10.6 cm in length and the left kidney measures 10.9 cm in length. Kidneys demonstrate normal cortical echogenicity. No evidence of hydronephrosis or intrarenal stones. Bladder: Unremarkable appearance of the bladder. [place] Michael, Mhpn Incoming Radiant Results From [employer] - 12/15/2019 12:33 PM EDT EXAMINATION: RETROPERITONEAL ULTRASOUND OF THE KIDNEYS AND URINARY BLADDER 12/15/2019 COMPARISON: 12/13/2019 CT HISTORY: ORDERING SYSTEM PROVIDED HISTORY: follow up TECHNOLOGIST PROVIDED HISTORY: follow up FINDINGS: Kidneys: The right kidney measures 10.6 cm in length and the left kidney measures 10.9 cm in length. Kidneys demonstrate normal cortical echogenicity. No evidence of hydronephrosis or intrarenal stones. Bladder: Unremarkable appearance of the bladder. IMPRESSION: Unremarkable ultrasound of the kidneys and urinary bladder. [place] Unremarkable ultraso und of the kidneys and urinary bladder. [place] Basic Metabolic Panel w/ Ref cheikh to MGon 12-14-2019 Anion gap [Moles/Vol] 8 mmol/L Low 9 - 17 mmol/L [place] Bun/Cre Ratio NOT REPORTED [place] Calcium [Mass/Vol] 8.4 mg/dL Low 8.6 - 10. 4 mg/dL [place] Chloride [Moles/Vol] 106 mmol/L 98 - 10 7 mmol/L [place] CO2 [Moles/Vol] 24 mmol/L 20 - 31 mmol/L [place] Creatinine [Mass/Vol] 0.74 mg/dL 0.5 - 0.9 mg/dL [place] GFR >60 >60 mL/min [place] GFR Non- >60 >60 mL/min [place] GFR/1.73 sq M predicted among non-blacks MDRD (S/P/Bld) [Vol rate/Area] NOT REPORTED [place] GFR/1.73 sq M predicted among non-blacks MDRD (S/P/Bld) [Vol rate/Area] [place] Comment on above: Average GFR for 30-3 9 years old: 107 mL/min/1.73sq m Chronic Kidney Disease: <60 mL/min/1.73sq m Kidney failure: <15 mL/min/1.73sq m eGFR calculated using average adult body mass. Additional eGFR calculator available at: http://www.Novacem/multiple_crcl_2012.htm Glucose [Mass/Vol] 96 mg/dL 70 - 99 mg/dL [place] Interpretation and review of laboratory results Abnormal [place] Potassium [Moles/Vol] 3.8 mmol/L 3.7 - 5.3 mmol/L [place] Sodium [Moles/Vol] 138 mmol/L 135 - 144 mmol/L [place] Urea nitrogen [Mass/Vol] 15 mg/dL 6 - 20 mg/dL [place] CBC auto differentialon 11-26 Basophils (Bld) [#/Vol] 0.23 10*3/uL [place] Basophils/100 WBC (Bld) 2 % 0 - 2 % [place] Differential Type NOT REPORTED [place] Eosinophils (Bld) [#/Vol] 0.57 10*3/uL [place] Eosinophils/100 WBC (Bld) 5 % High 1 - 4 % [place] Erythrocyte distribution width (RBC) [Ratio] 12.6 % 11.8 - 14.4 % [place] Hematocrit (Bld) [Volume fraction] 37.2 % 36.3 - 47.1 % [place] Hemoglobin (Bld) [Mass/Vol] 11.5 g/dL Low 11.9 - 15.1 g/dL [place] Immature granulocytes (Bld) [#/Vol] 0.00 10*3/uL [place] Immature granulocytes (Bld) [#/Vol] 0 % 0 [place] Interpretation and review of laboratory results Abnormal [place] Lymphocytes (Bld) [#/Vol] 4.10 10*3/uL [place] Lymphocytes/100 WBC (Bld) 36 % 24 - 44 % [place] MCH (RBC) [Entitic mass] 29.3 pg 25.2 - 33.5 pg [place] MCHC (RBC) [Mass/Vol] 30.9 g/dL 28.4 - 34.8 g/dL [place] MCV (RBC) [Entitic vol] 94.7 fL 82.6 - 102.9 fL [place] Monocytes (Bld) [#/Vol] 0.80 10*3/uL [place] Monocytes/100 WBC (Bld) 7 % 1 - 7 % [place] Morphology Rudy (Bld) [Interp] Normal [place] Platelet mean volume (Bld) [Entitic vol] 9.2 fL 8.1 - 13.5 fL [place] Platelets (Bld) [#/Vol] 238 10*3/uL [place] Platelets (Bld) [#/Vol] NOT REPORTED [place] RBC (Bld) [#/Vol] 3.93 10*6/uL Low 3.95 - 5.11 m/uL [place] RBC morphology finding Nom (Bld) NOT REPORTED [place] Segmented neutrophils/100 WBC (Bld) 50 % 36 - 66 % [place] Segs Absolute 5.70 [facility] [place] WBC (Bld) [#/Vol] 11.4 10*3/uL [place] WBC (Bld) [#/Vol] 0.0 10*3/uL 0.0 per 100 WBC [place] WBC Morphology NOT REPORTED [place] ABDOMEN PELVIS WO CONTRAS Ton 12-14-2019 Michael, pn Incoming Radiant Results From [employer] - 12/14/2019 12:08 AM EDT EXAMINATION: CT OF THE ABDOMEN AND PELVIS WITHOUT CONTRAST 12/13/2019 10:32 pm TECHNIQUE: CT of the abdomen and pelvis was performed without the administration of intravenous contrast. Multiplanar reformatted images are provided for review. Dose modulation, iterative reconstruction, and/or weight based adjustment of the mA/kV was utilized to reduce the radiation dose to as low as reasonably achievable. COMPARISON: January 10, 2019 HISTORY: ORDERING SYSTEM PROVIDED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 Non-preg premeno <=5 Postmeno <=8 Male <=3 If HCG results do not concur with clinical observations, additional testing to confirm results is recommended. Elevated results not associated with may be found in patients with other diseases such as tumors of the germ cells (testis, ovaries, etc.), bladder, pancreas, stomach, lungs, and liver. Otheron 01-08-2019 Direct Exam Negative [place] EXAMINATION: PELVIC ULTRASOUND; DOPPLER EVALUATION 01/08/2019 TECHNIQUE: Transvaginal pelvic ultrasound was performed.; DOPPLER ULTRASOUND OF THE PELVIS Color Doppler evaluation was performed. COMPARISON: CT abdomen pelvis 12/20/2018 Pelvic ultrasound 07/10/2010 HISTORY: ORDERING SYSTEM PROVIDED HISTORY: Flank pain history of left ovary mass, reevaluate/rule out ovarian torsion FINDINGS: Measurements: Uterus: 8.8 x 4.0 x 3.3 cm Endometrial stripe: 7 mm Right Ovary: 3.8 x 1.7 x 2.2 cm Left Ovary: 2.2 x 1.3 x 1.4 cm Ultrasound Findings: Uterus: Uterus demonstrates normal myometrial echotexture. Endometrial stripe: Endometrial stripe is within normal limits. Right Ovary: Right ovary is within normal limits. There is normal arterial and venous doppler flow. Left Ovary: Left ovary is within normal limits with 9 mm dominant follicle, no follow-up imaging recommended per guidelines below. There is normal arterial and venous doppler flow. Free Fluid: Mild amount of free fluid in the cul-de-sac and right pelvis likely physiologic in nature. [place] Negative pelvic ultrasound. Normal Doppler flow within the ovaries. RECOMMENDATIONS: Subcentimeter simple ovarian cyst. No follow-up imaging is recommended. Reference: Radiology 2009;256(3):632-54 [place], [place] Elidia Rodriguez Incoming Radiant Results From [facility] - 01/08/2019 8:21 PM EST EXAMINATION: PELVIC ULTRASOUND; DOPPLER EVALUATION 01/08/2019 TECHNIQUE: Transvaginal pelvic ultrasound was performed.; DOPPLER ULTRASOUND OF THE PELVIS Color Doppler evaluation was performed. COMPARISON: CT abdomen pelvis 12/20/2018 Pelvic ultrasound 07/10/2010 HISTORY: ORDERING SYSTEM PROVIDED HISTORY: Flank pain history of left ovary mass, reevaluate/rule out ovarian torsion FINDINGS: Measurements: Uterus: 8.8 x 4.0 x 3.3 cm Endometrial stripe: 7 mm Right Ovary: 3.8 x 1.7 x 2.2 cm Left Ovary: 2.2 x 1.3 x 1.4 cm Ultrasound Findings: Uterus: Uterus demonstrates normal myometrial echotexture. Endometrial stripe: Endometrial stripe is within normal limits. Right Ovary: Right ovary is within normal limits. There is normal arterial and venous doppler flow. Left Ovary: Left ovary is within normal limits with 9 mm dominant follicle, no follow-up imaging recommended per guidelines below. There is normal arterial and venous doppler flow. Free Fluid: Mild amount of free fluid in the cul-de-sac and right pelvis likely physiologic in nature. IMPRESSION: Negative pelvic ultrasound. Normal Doppler flow within the ovaries. RECOMMENDATIONS: Subcentimeter simple ovarian cyst. No follow-up imaging is recommended. Reference: Radiology 2009;256(3):173-58 [place] , Urineon 9 Beta HCG ( test) Ql (U) Negative NEGATIVE [place] Comment on above: Specimens with hCG l evels near the threshold of the test (25 mIU/mL) may give a negative or indeterminate result. In such cases, another test should be performed with a new specimen in 48-72 hours. If early is suspected clinically in this setting, correlation with quantitative serum b-hCG level is suggested. Urinalysis with Microscopico n 01-08-2019 Amorphous, UA NOT REPORTED None [place] Bacteria, UA MANY Abnormal None [place] Bilirubin Urine Negative NEGATIVE [place] Casts UA None Reference range defined for non-centrifuged specimen. [place] Color, UA YELLOW YELLOW [place] Crystals UA NOT REPORTED None /HPF [place] Epithelial Cells UA 50 TO 100 [place] Glucose, Ur Negative NEGATIVE [place] Interpretation and review of laboratory results Abnormal [place] Ketones Ql (U) TRACE Abnormal NEGATIVE [place] Leukocyte esterase Test strip Ql (U) MODERATE Abnormal NEGATIVE [place] Mucus, UA NOT REPORTED [place] Nitrite, Urine Negative NEGATIVE [place] Other Observations UA NOT REPORTED NOT REQ. M [place] pH, UA 6.5 [place] Protein (U) [Mass/Vol] TRACE Abnormal NEGATIVE [place] RBC (U) [#/Vol] 2 TO 5 [place], [place] Comment on above: Reference range defi balaji for non-centrifuged specimen. Renal Epithelial, Urine NOT REPORTED 0 /HPF [place] Specific [place], UA 1.028 [place], [place] Trichomonas, UA NOT REPORTED None [place], [place] Turbidity UA TURBID Abnormal CLEAR [place] Urine Hgb TRACE Abnormal NEGATIVE [place] Urobilinogen, Urine Normal Normal [place] WBC, UA 50 TO 100 [place] Yeast, UA NOT REPORTED None [place] VAGINITIS DNA PROBEon 2018 Direct Exam Method of testing is a DNA probe intended for detection and identification of Judi species, Gardnerella vaginalis, and Trichomonas vaginalis nucleic acid in vaginal fluid specimens from patients with symptoms of vaginitis/vaginosis. [place] Direct Exam Positive Abnormal [place] Interpretation and review of laboratory results Abnormal [place] Special Requests NOT REPORTED [place] Specimen Description .VAGINA [place] CBC WITH AUTO DIFFERENTIALon 12-19-2018 Basophils (Bld) [#/Vol] 0.06 10*3/uL [place] Basophils/100 WBC (Bld) 0 % 0 - 2 % [place] Differential Type NOT REPORTED [place] Eosinophils (Bld) [#/Vol] 0.15 10*3/uL [place] Eosinophils/100 WBC (Bld) 1 % 1 - 4 % [place] Erythrocyte distribution width (RBC) [Ratio] 12.7 % 11.8 - 14.4 % [place] Hematocrit (Bld) [Volume fraction] 41.6 % 36.3 - 47.1 % [place] Hemoglobin (Bld) [Mass/Vol] 13.6 g/dL 11.9 - 15.1 g/dL [place] Immature granulocytes (Bld) [#/Vol] 0 % 0 [place] Immature granulocytes (Bld) [#/Vol] 0.06 10*3/uL [place] Interpretation and review of laboratory results Abnormal [place] Lymphocytes (Bld) [#/Vol] 2.73 10*3/uL [place] Lymphocytes/100 WBC (Bld) 16 % Low 24 - 43 % [place] MCH (RBC) [Entitic mass] 29.9 pg 25.2 - 33.5 pg [place] MCHC (RBC) [Mass/Vol] 32.7 g/dL 28.4 - 34.8 g/dL [place] MCV (RBC) [Entitic vol] 91.4 fL 82.6 - 102.9 fL [place] Monocytes (Bld) [#/Vol] 0.95 10*3/uL [place] Monocytes/100 WBC (Bld) 6 % 3 - 12 % [place] Platelet mean volume (Bld) [Entitic vol] 9.3 fL 8.1 - 13.5 fL [place] Platelets (Bld) [#/Vol] 288 10*3/uL [place] Platelets (Bld) [#/Vol] NOT REPORTED [place] RBC (Bld) [#/Vol] 4.55 10*6/uL 3.95 - 5.11 m/uL [place] RBC morphology finding Nom (Bld) NOT REPORTED [place] Segmented neutrophils/100 WBC (Bld) 77 % High 36 - 65 % [place] Segs Absolute 13.04 High [place], [place] WBC (Bld) [#/Vol] 0.0 10*3/uL 0.0 per 100 WBC [place] WBC (Bld) [#/Vol] 17.0 10*3/uL High [place] WBC Morphology NOT REPORTED [place], [place] Comprehensive Metabolic Pane lamonte 12-19-2018 Albumin [Mass/Vol] 3.9 g/dL 3.5 - 5.2 g/dL [place] Albumin/Globulin [Mass ratio] 0.9 {ratio} Low [place] ALP [Catalytic activity/Vol] 123 U/L High 35 - 104 U/L [place] ALT [Catalytic activity/Vol] 13 U/L 5 - 33 U/L [place] Anion gap [Moles/Vol] 12 mmol/L 9 - 17 mmol/L [place] AST [Catalytic activity/Vol] 13 U/L <32 [place] Bilirubin Ql (U) 0.62 mg/dL 0.3 - 1.2 mg/dL [place] Bun/Cre Ratio NOT REPORTED [place] Calcium [Mass/Vol] 9.4 mg/dL 8.6 - 10. 4 mg/dL [place], [place] Chloride [Moles/Vol] 104 mmol/L 98 - 10 7 mmol/L [place] CO2 [Moles/Vol] 19 mmol/L Low 20 - 31 mmol/L [place] Creatinine [Mass/Vol] 0.63 mg/dL 0.5 - 0.9 mg/dL [place] GFR >60 >60 mL/min [place] GFR Non- >60 >60 mL/min [place] GFR/1.73 sq M predicted among non-blacks MDRD (S/P/Bld) [Vol rate/Area] NOT REPORTED [place] GFR/1.73 sq M predicted among non-blacks MDRD (S/P/Bld) [Vol rate/Area] [place] Comment on above: Average GFR for 30-3 9 years old: 107 mL/min/1.73sq m Chronic Kidney Disease: <60 mL/min/1.73sq m Kidney failure: <15 mL/min/1.73sq m eGFR calculated using average adult body mass. Additional eGFR calculator available at: http://www.[employer]/Yunzhisheng_crcl_2012.htm Glucose [Mass/Vol] 115 mg/dL High 70 - 99 mg/dL [place] Interpretation and review of laboratory results Abnormal [place] Potassium [Moles/Vol] 4.2 mmol/L 3.7 - 5.3 mmol/L [place] Protein [Mass/Vol] 8.4 g/dL High 6.4 - 8.3 g/dL [place], [place] Sodium [Moles/Vol] 135 mmol/L 135 - 144 mmol/L [place] Urea nitrogen [Mass/Vol] 9 mg/dL 6 - 20 mg/dL [place] HCG Qualitative, Serumon hCG Qual Negative NEGATIVE [place] Comment on above: Specimens with hCG l evels near the threshold of the test (25 mIU/mL) may give a negative or indeterminate result. In such cases, another test should be performed with a new specimen in 48-72 hours. If early is suspected clinically in this setting, correlation with quantitative serum b-hCG level is suggested. [facility] plasma for this test. This has not been cleared or approved by the U.S. Food and Drug Administration. The FDA has determined that such clearance is not necessary. Microscopic Urinalysison Amorphous, UA NOT REPORTED None [facility] [place] Bacteria, UA MODERATE Abnormal None [place] Casts UA [place] Crystals UA NOT REPORTED None /HPF [place] Epithelial Cells UA 2 TO 5 [place] Interpretation and review of laboratory results Abnormal [place] Mucus, UA NOT REPORTED None [place] Other Observations UA NOT REPORTED NOT REQ. M [place] RBC (U) [#/Vol] 5 TO 10 [place] Comment on above: Reference range defi balaji for non-centrifuged specimen. Renal Epithelial, Urine NOT REPORTED 0 /HPF [place] Trichomonas, UA NOT REPORTED None [place] WBC, UA TOO NUMEROUS TO COUNT [place], [place] Yeast, UA NOT REPORTED None [place] Urinalysis Reflex to Culture on 12-19-2018 Bilirubin Urine Negative NEGATIVE [place] Color, UA YELLOW YELLOW [place] Glucose, Ur Negative NEGATIVE [place] Interpretation and review of laboratory results Abnormal [place] Ketones Ql (U) Negative NEGATIVE [place], [place] Leukocyte esterase Test strip Ql (U) MODERATE Abnormal NEGATIVE [place] Nitrite, Urine Positive Abnormal NEGATIVE [place] pH, UA 5.5 [place] Protein (U) [Mass/Vol] 3+ Abnormal NEGATIVE [place], [place] Specific [place], UA 1.017 [place] Turbidity UA TURBID Abnormal CLEAR [place] Urinalysis Comments NOT REPORTED [place] Urine Hgb LARGE Abnormal NEGATIVE [place] Urobilinogen, Urine Normal Normal [place] Vital Signs Date Time Vital Sign Value Performing Clinician Facility 01-02-2024 08:31-0500 Body mass index (BMI) [Ratio] 43.42 kg/m2 Anthony Reina LEE Work Phone: [facility] 01-02-2024 08:31-0500 Body weight 97.52 kg Anthony Huang DO Work Phone: [facility] 01-02-2024 08:31-0500 Diastolic blood pressure 80 mm[Hg] Anthony Visci DO Work Phone: [facility] 01-02-2024 08:31-0500 Systolic blood pressure 128 mm[Hg] Anthony Visci DO Work Phone: [facility] 10-04-2023 02:51-0400 Diastolic blood pressure 91 mm[Hg] DO Katlin Fernandez Work Phone: [facility] 10-04-2023 02:51-0400 Heart rate 82 /min DO Katlin Fernandez Work Phone: [facility] 10-04-2023 02:51-0400 Respiratory rate 16 /min DO Katlin Fernandez Work Phone: [facility] 10-04-2023 02:51-0400 SaO2% (BldA) [Mass fraction] 98 % DO Katlin Fernandez Work Phone: [facility] 10-04-2023 02:51-0400 Systolic blood pressure 141 mm[Hg] DO Katlin Fernandez Work Phone: [facility] 10-03-2023 22:46-0400 Body height 149.86 cm DO Katlin Fernandez Work Phone: [facility] 10-03-2023 22:46-0400 Body temperature 98.7 [degF] DO Katlin Fernandez Work Phone: [facility] 10-03-2023 22:46-0400 Body weight 96.4 kg DO Katlin Fernandez Work Phone: [facility] 09-20-2023 03:00-0400 Diastolic blood pressure 75 mm[Hg] DO Katlin Fernandez Work Phone: [facility] 09-20-2023 03:00-0400 Heart rate 77 /min DO Katlin Fernandez Work Phone: [facility] 09-20-2023 03:00-0400 Respiratory rate 14 /min DO Katlin Fernandez Work Phone: [facility] 09-20-2023 03:00-0400 SaO2% (BldA) [Mass fraction] 97 % DO Katlin Fernandez Work Phone: [facility] 09-20-2023 03:00-0400 Systolic blood pressure 117 mm[Hg] DO Katlin Fernandez Work Phone: [facility] 09-20-2023 00:21-0400 Body height 149.86 cm DO Katlin Fernandez Work Phone: [facility] 09-20-2023 00:21-0400 Body temperature 98 [degF] DO Katlin Fernandez Work Phone: [facility] 09-20-2023 00:21-0400 Body weight 96.1 kg DO Katlin Fernandez Work Phone: [facility] 09-03-2023 22:00-0400 Diastolic blood pressure 90 mm[Hg] Kaylinn [facility] 09-03-2023 22:00-0400 Heart rate 76 /min Kaylinn Dokken [facility] 09-03-2023 22:00-0400 Mean blood pressure 109 mm[Hg] Kaylinn D[facility] 09-03-2023 22:00-0400 Respiratory rate 18 /min Kaylinn Dok[facility] 09-03-2023 22:00-0400 SaO2% (BldA) [Mass fraction] 99 % Kaylinn D[facility] 09-03-2023 22:00-0400 Systolic blood pressure 146 mm[Hg] Kaylinn D[facility]ken [facility] 09-03-2023 21:30-0400 Diastolic blood pressure 121 mm[Hg] Kaylinn D[facility]ken [facility] 09-03-2023 21:30-0400 Heart rate 77 /min Kaylinn Dokken [facility] 09-03-2023 21:30-0400 Mean blood pressure 127 mm[Hg] Kaylinn D[facility] 09-03-2023 21:30-0400 Respiratory rate 20 /min Kaylinn Dokken [facility] 09-03-2023 21:30-0400 SaO2% (BldA) [Mass fraction] 100 % Kaylinn Dok[facility] 09-03-2023 21:30-0400 Systolic blood pressure 138 mm[Hg] Kaylinn D[facility] 09-03-2023 21:00-0400 Heart rate 82 /min Kaylinn Dok[facility] 09-03-2023 20:43-0400 Body temperature 97.88 [degF] Kaylinn [facility] 09-03-2023 20:43-0400 Diastolic blood pressure 89 mm[Hg] Kaylinn [facility] 09-03-2023 20:43-0400 Heart rate 89 /min Kaylinn D[facility] 09-03-2023 20:43-0400 Systolic blood pressure 134 mm[Hg] Kaylinn D[facility] 08-27-2023 23:12-0400 Diastolic blood pressure 104 mm[Hg] Kaylinn [facility] 08-27-2023 23:12-0400 Heart rate 76 /min Kaylinn Dok[facility] 08-27-2023 23:12-0400 Respiratory rate 18 /min Kaylinn Dok[facility] 08-27-2023 23:12-0400 SaO2% (BldA) [Mass fraction] 97 % Kaylinn D[facility] 08-27-2023 23:12-0400 Systolic blood pressure 131 mm[Hg] Kaylinn [facility] 08-27-2023 22:24-0400 Diastolic blood pressure 127 mm[Hg] Kaylinn [facility] 08-27-2023 22:24-0400 Heart rate 69 /min Kaylinn Dokken [facility] 08-27-2023 22:24-0400 Mean blood pressure 131 mm[Hg] Kaylinn D[facility] 08-27-2023 22:24-0400 Respiratory rate 17 /min Kaylinn Dokken [facility] 08-27-2023 22:24-0400 SaO2% (BldA) [Mass fraction] 99 % Kaylinn Dokken [facility] 08-27-2023 22:24-0400 Systolic blood pressure 139 mm[Hg] Kaylinn Dokken [facility] 08-27-2023 20:30-0400 Diastolic blood pressure 79 mm[Hg] Kaylinn Dokken [facility] 08-27-2023 20:30-0400 Heart rate 73 /min Kaylinn Dokken [facility] 08-27-2023 20:30-0400 Mean blood pressure 93 mm[Hg] Jackelynylinn Dokken [facility] 08-27-2023 20:30-0400 Respiratory rate 18 /min Madhaviinn Dokken [facility] 08-27-2023 20:30-0400 SaO2% (BldA) [Mass fraction] 98 % Riddhin D[facility] 08-27-2023 20:30-0400 Systolic blood pressure 120 mm[Hg] Madhaviinn Dokken [facility] 08-27-2023 19:05-0400 Body temperature 97.7 [degF] Riddhin [facility] 08-27-2023 19:05-0400 Heart rate 95 /min Riddhin kken [facility] 08-26-2023 09:17-0400 Body temperature 98.6 [degF] Jass [facility] 08-26-2023 09:17-0400 Diastolic blood pressure 117 mm[Hg] Jass Fantasma [facility] 08-26-2023 09:17-0400 Heart rate 95 /min Jass Fantasma [facility] 08-26-2023 09:17-0400 Respiratory rate 18 /min Jass Fantasma [facility] 08-26-2023 09:17-0400 SaO2% (BldA) [Mass fraction] 99 % Jass Fantasma [facility] 08-26-2023 09:17-0400 Systolic blood pressure 156 mm[Hg] Jass Meek [facility] 07-21-2023 08:04-0400 Body height 153.67 cm DO Katlin Fernandez Work Phone: [facility] 07-21-2023 08:04-0400 Body weight 92 kg DO Katlin Fernandez Work Phone: [facility] 07-21-2023 08:02-0400 Body temperature 98 [degF] DO Katlin Fernandez Work Phone: [facility] 07-21-2023 08:02-0400 Diastolic blood pressure 85 mm[Hg] DO Katlin Fernandez Work Phone: [facility] 07-21-2023 08:02-0400 Heart rate 72 /min DO Katlin Fernandez Work Phone: [facility] 07-21-2023 08:02-0400 Respiratory rate 18 /min DO Katlin Fernandez Work Phone: [facility] 07-21-2023 08:02-0400 SaO2% (BldA) [Mass fraction] 99 % DO Katlin Fernandez Work Phone: [facility] 07-21-2023 08:02-0400 Systolic blood pressure 125 mm[Hg] DO Katlin Fernandez Work Phone: [facility] 07-14-2023 18:13-0400 Diastolic blood pressure 72 mm[Hg] DO Katlin Fernandez Work Phone: [facility] 07-14-2023 18:13-0400 Heart rate 82 /min DO Katlin Fernandez Work Phone: [facility] 07-14-2023 18:13-0400 Respiratory rate 20 /min DO Katlin Fernandez Work Phone: [facility] 07-14-2023 18:13-0400 SaO2% (BldA) [Mass fraction] 98 % DO Katlin Fernandez Work Phone: [facility] 07-14-2023 18:13-0400 Systolic blood pressure 118 mm[Hg] DO Katlin Fernandez Work Phone: [facility] 07-14-2023 15:40-0400 Body height 149.86 cm DO Katlin Fernandez Work Phone: [facility] 07-14-2023 15:40-0400 Body temperature 98 [degF] DO Katlin Fernandez Work Phone: [facility] 07-14-2023 15:40-0400 Body weight 92.25 kg DO Katlin Fernandez Work Phone: [facility] 07-06-2023 02:57-0400 Diastolic blood pressure 74 mm[Hg] DO Katlin Fernandez Work Phone: [facility] 07-06-2023 02:57-0400 Heart rate 88 /min DO Katlin Fernandez Work Phone: [facility] 07-06-2023 02:57-0400 Respiratory rate 16 /min DO Katlin Fernandez Work Phone: [facility] 07-06-2023 02:57-0400 SaO2% (BldA) [Mass fraction] 98 % DO Katlin Fernandez Work Phone: [facility] 07-06-2023 02:57-0400 Systolic blood pressure 131 mm[Hg] DO Katlin Fernandez Work Phone: [facility] 07-06-2023 00:47-0400 Body height 149.86 cm DO Katlin Fernandez Work Phone: [facility] 07-06-2023 00:47-0400 Body temperature 98.6 [degF] DO Katlin Fernandez Work Phone: [facility] 07-06-2023 00:47-0400 Body weight 93.5 kg DO Katlin Fernandez Work Phone: [facility] 06-13-2023 13:03-0400 Diastolic blood pressure 82 mm[Hg] DO Katlin Fernandez Work Phone: [facility] 06-13-2023 13:03-0400 Heart rate 64 /min DO Katlin Fernandez Work Phone: [facility] 06-13-2023 13:03-0400 Respiratory rate 12 /min DO Katlin Fernandez Work Phone: [facility] 06-13-2023 13:03-0400 SaO2% (BldA) [Mass fraction] 99 % DO Katlin Fernandez Work Phone: [facility] 06-13-2023 13:03-0400 Systolic blood pressure 135 mm[Hg] DO Katlin Fernandez Work Phone: [facility] 06-13-2023 10:55-0400 Body height 149.86 cm DO Katlin Fernandez Work Phone: [facility] 06-13-2023 10:55-0400 Body temperature 98 [degF] DO Katlin Fernandez Work Phone: [facility] 06-13-2023 10:55-0400 Body weight 99 kg DO Katlin Fernandez Work Phone: [facility] 05-22-2023 16:30-0400 Diastolic blood pressure 71 mm[Hg] DO Katlin Fernandez Work Phone: [facility] 05-22-2023 16:30-0400 Heart rate 83 /min DO Katlin Fernandez Work Phone: [facility] 05-22-2023 16:30-0400 Respiratory rate 16 /min DO Katlin Fernandez Work Phone: [facility] 05-22-2023 16:30-0400 SaO2% (BldA) [Mass fraction] 94 % DO Katlin Fernandez Work Phone: [facility] 05-22-2023 16:30-0400 Systolic blood pressure 121 mm[Hg] DO Katlin Fernandez Work Phone: [facility] 05-22-2023 15:39-0400 Body temperature 98.4 [degF] DO Katlin Fernandez Work Phone: [facility] 05-22-2023 15:04-0400 Inhaled oxygen flow rate 8 L/min DO Katlin Fernandez Work Phone: [facility] 05-22-2023 13:30-0400 Body height 149.86 cm DO Katlin Fernandez Work Phone: [facility] 05-22-2023 13:30-0400 Body mass index (BMI) [Ratio] 40.4 kg/m2 DO Katlin Fernandez Work Phone: [facility] 05-22-2023 13:30-0400 Body weight 90.71 kg DO Katlin Fernandez Work Phone: [facility] 05-16-2023 13:00-0400 Body temperature 98.2 [degF] DO Katlin Fernandez Work Phone: [facility] 05-16-2023 13:00-0400 Diastolic blood pressure 58 mm[Hg] DO Katlin Fernandez Work Phone: [facility] 05-16-2023 13:00-0400 Heart rate 91 /min DO Katlin Fernandez Work Phone: [facility] 05-16-2023 13:00-0400 Respiratory rate 20 /min DO Katlin Fernandez Work Phone: [facility] 05-16-2023 13:00-0400 SaO2% (BldA) [Mass fraction] 96 % DO Katlin Fernandez Work Phone: [facility] 05-16-2023 13:00-0400 Systolic blood pressure 133 mm[Hg] DO Katlin Fernandez Work Phone: [facility] 05-16-2023 11:05-0400 Body height 149.86 cm DO Katlin Fernandez Work Phone: [facility] 05-16-2023 11:05-0400 Body weight 92.6 kg DO Katlin Fernandez Work Phone: [facility] 05-12-2023 17:30-0400 Diastolic blood pressure 74 mm[Hg] DO Katlin Fernandez Work Phone: [facility] 05-12-2023 17:30-0400 Heart rate 79 /min DO Katlin Fernandez Work Phone: [facility] 05-12-2023 17:30-0400 Respiratory rate 18 /min DO Katlin Fernandez Work Phone: [facility] 05-12-2023 17:30-0400 SaO2% (BldA) [Mass fraction] 97 % DO Katlin Fernandez Work Phone: [facility] 05-12-2023 17:30-0400 Systolic blood pressure 111 mm[Hg] DO Katlin Fernandez Work Phone: [facility] 05-12-2023 12:55-0400 Body height 149.86 cm DO Katlin Fernandez Work Phone: [facility] 05-12-2023 12:55-0400 Body temperature 97.6 [degF] DO Katlin Fernandez Work Phone: [facility] 05-12-2023 12:55-0400 Body weight 92.15 kg DO Katlin Fernandez Work Phone: [facility] 04-17-2023 10:54-0500 Body height 149.86 cm DO Katlin Fernandez Work Phone: [facility] 04-17-2023 10:54-0500 Body temperature 98.5 [degF] DO Katlin Fernandez Work Phone: [facility] 04-17-2023 10:54-0500 Body weight 93.7 kg DO Katlin Fernandez Work Phone: [facility] 04-17-2023 10:54-0500 Diastolic blood pressure 87 mm[Hg] DO Katlin Fernandez Work Phone: [facility] 04-17-2023 10:54-0500 Heart rate 80 /min DO Katlin Fernandez Work Phone: [facility] 04-17-2023 10:54-0500 Respiratory rate 16 /min DO Katlin Fernandez Work Phone: [facility] 04-17-2023 10:54-0500 SaO2% (BldA) [Mass fraction] 99 % DO Katlin Fernandez Work Phone: [facility] 04-17-2023 10:54-0500 Systolic blood pressure 135 mm[Hg] DO Katlin Fernandez Work Phone: [facility] 04-06-2023 11:51-0500 Body height 149.86 cm DO Katlin Fernandez Work Phone: [facility] 04-06-2023 11:51-0500 Body temperature 98.6 [degF] DO Katlin Fernandez Work Phone: [facility] 04-06-2023 11:51-0500 Body weight 92.55 kg DO Katlin Fernandez Work Phone: [facility] 04-06-2023 11:51-0500 Diastolic blood pressure 87 mm[Hg] DO Katlin Fernandez Work Phone: [facility] 04-06-2023 11:51-0500 Heart rate 77 /min DO Katlin Fernandez Work Phone: [facility] 04-06-2023 11:51-0500 Respiratory rate 20 /min DO Katlin Fernandez Work Phone: [facility] 04-06-2023 11:51-0500 SaO2% (BldA) [Mass fraction] 95 % DO Katlin Fernandez Work Phone: [facility] 04-06-2023 11:51-0500 Systolic blood pressure 143 mm[Hg] DO Katlin Fernandez Work Phone: [facility] 01-26-2023 16:24-0500 Body temperature 97.7 [degF] Jass Meek [facility] 01-26-2023 16:24-0500 Diastolic blood pressure 83 mm[Hg] Jass Meek [facility] 01-26-2023 16:24-0500 Heart rate 74 /min Jassjoleen Meek [facility] 01-26-2023 16:24-0500 Respiratory rate 16 /min Jassjoleen Meek [facility] 01-26-2023 16:24-0500 SaO2% (BldA) [Mass fraction] 99 % Jass Meek [facility] 01-26-2023 16:24-0500 Systolic blood pressure 130 mm[Hg] Jass Meek [facility] 01-21-2023 13:48-0500 Body temperature 98.24 [degF] Juan Antonio Hooper [facility] 01-21-2023 13:48-0500 Diastolic blood pressure 72 mm[Hg] Juan Antonio Rufus [facility] 01-21-2023 13:48-0500 Heart rate 75 /min Juan Antonio Rufus [facility] 01-21-2023 13:48-0500 Respiratory rate 14 /min Juan Antonio Rufus [facility] 01-21-2023 13:48-0500 SaO2% (BldA) [Mass fraction] 100 % Juan Antonio Hooper [facility] 01-21-2023 13:48-0500 Systolic blood pressure 126 mm[Hg] Juan Antonio Hooper [facility] 11-06-2022 16:31-0400 Body height 149.86 cm DO Katlin Fernandez Work Phone: [facility] 11-06-2022 16:31-0400 Body temperature 98.8 [degF] DO Katlin Fernandez Work Phone: [facility] 11-06-2022 16:31-0400 Body weight 92.9 kg DO Katlin Fernandez Work Phone: [facility] 11-06-2022 16:31-0400 Diastolic blood pressure 67 mm[Hg] DO Katlin Fernandez Work Phone: [facility] 11-06-2022 16:31-0400 Heart rate 84 /min DO Katlin Fernandez Work Phone: [facility] 11-06-2022 16:31-0400 Respiratory rate 16 /min DO Katlin Fernandez Work Phone: [facility] 11-06-2022 16:31-0400 SaO2% (BldA) [Mass fraction] 97 % DO Katlin Fernandez Work Phone: [facility] 11-06-2022 16:31-0400 Systolic blood pressure 125 mm[Hg] DO Katlin Fernandez Work Phone: [facility] 08-25-2022 22:11-0400 Diastolic blood pressure 96 mm[Hg] [facility] 08-25-2022 22:11-0400 Heart rate 88 /min [facility] 08-25-2022 22:11-0400 Mean blood pressure 107 mm[Hg] [facility] 08-25-2022 22:11-0400 Respiratory rate 15 /min [facility] 08-25-2022 22:11-0400 SaO2% (BldA) [Mass fraction] 97 % [facility] 08-25-2022 22:11-0400 Systolic blood pressure 129 mm[Hg] [facility] 08-25-2022 21:00-0400 Diastolic blood pressure 73 mm[Hg] [facility] 08-25-2022 21:00-0400 Heart rate 89 /min [facility] 08-25-2022 21:00-0400 Mean blood pressure 85 mm[Hg] [facility] 08-25-2022 21:00-0400 Respiratory rate 16 /min [facility] 08-25-2022 21:00-0400 Systolic blood pressure 108 mm[Hg] [facility] 08-25-2022 17:35-0400 Body temperature 98.6 [degF] [facility] 08-25-2022 17:35-0400 Diastolic blood pressure 75 mm[Hg] [facility] 08-25-2022 17:35-0400 Heart rate 93 /min [facility] 08-25-2022 17:35-0400 Respiratory rate 18 /min [facility] 08-25-2022 17:35-0400 SaO2% (BldA) [Mass fraction] 97 % [facility] 08-25-2022 17:35-0400 Systolic blood pressure 124 mm[Hg] [facility] 07-03-2022 13:00-0400 Body height 154.94 cm Katlin Fernandez Other [facility] Other 07-03-2022 13:00-0400 Body mass index (BMI) [Ratio] 39.41 kg/m2 Katlinaleena Fernandez Other [facility] Other 07-03-2022 13:00-0400 Body temperature 98.6 [degF] Katlin Fernandez Other [facility] Other 07-03-2022 13:00-0400 Body weight 94.62 kg Katlinaleena Fernandez Other [facility] Other 07-03-2022 13:00-0400 Diastolic blood pressure 76 mm[Hg] Katlin Fernandez Other [facility] Other 07-03-2022 13:00-0400 Respiratory rate 18 /min Katlinaleena Porterers Other [facility] Other 07-03-2022 13:00-0400 SaO2% (BldA) [Mass fraction] 98 % Katlin Fernandez Other [facility] Other 07-03-2022 13:00-0400 Systolic blood pressure 122 mm[Hg] Katlin Fernandez Other [facility] Other 06-28-2022 17:48-0400 Body temperature 98.06 [degF] Jass [facility] 06-28-2022 17:48-0400 Diastolic blood pressure 83 mm[Hg] Jass [facility] 06-28-2022 17:48-0400 Heart rate 103 /min Jass Me[facility] 06-28-2022 17:48-0400 Respiratory rate 16 /min Jass Me[facility] 06-28-2022 17:48-0400 SaO2% (BldA) [Mass fraction] 99 % Jass Meek [facility] 06-28-2022 17:48-0400 Systolic blood pressure 131 mm[Hg] Jass Me[facility] 06-22-2022 16:05-0400 Diastolic blood pressure 78 mm[Hg] Juan Antonio [facility] 06-22-2022 16:05-0400 Heart rate 77 /min Juan Antonio [facility] 06-22-2022 16:05-0400 Mean blood pressure 100 mm[Hg] Juan Antonio [facility] 06-22-2022 16:05-0400 Respiratory rate 16 /min Juan Antonio [facility] 06-22-2022 16:05-0400 SaO2% (BldA) [Mass fraction] 97 % Juan Antonio [facility] 06-22-2022 16:05-0400 Systolic blood pressure 143 mm[Hg] Juan Antonio [facility] 06-22-2022 13:00-0400 Diastolic blood pressure 99 mm[Hg] Juan Antonio [facility] 06-22-2022 13:00-0400 Heart rate 78 /min Juan Antonio Hooper [facility] 06-22-2022 13:00-0400 Mean blood pressure 111 mm[Hg] Juan Antonio Hooper [facility] 06-22-2022 13:00-0400 Respiratory rate 18 /min Juan Antonio [facility] 06-22-2022 13:00-0400 SaO2% (BldA) [Mass fraction] 95 % Juan Antonio [facility] 06-22-2022 13:00-0400 Systolic blood pressure 135 mm[Hg] Juan Antonio [facility]oper [facility] 06-22-2022 11:43-0400 Body temperature 98.42 [degF] Juan Antonio [facility] 06-22-2022 11:43-0400 Diastolic blood pressure 82 mm[Hg] Juan Antonio Hooper [facility] 06-22-2022 11:43-0400 Heart rate 88 /min Juan Antonio Hooper [facility] 06-22-2022 11:43-0400 Respiratory rate 20 /min Juan Antonio [facility]oper [facility] 06-22-2022 11:43-0400 SaO2% (BldA) [Mass fraction] 94 % Juan Antonio [facility]oper [facility] 06-22-2022 11:43-0400 Systolic blood pressure 133 mm[Hg] Juan Antonio [facility] 05-30-2022 10:30-0400 Body height 154.94 cm Katlin Fernandez Other [facility] Other 05-30-2022 10:30-0400 Body mass index (BMI) [Ratio] 40.05 kg/m2 Katlin Fernandez Other [facility] Other 05-30-2022 10:30-0400 Body temperature 98.3 [degF] Katlin Fernandez Other [facility] Other 05-30-2022 10:30-0400 Body weight 96.16 kg Katlin Porterers Other [facility] Other 05-30-2022 10:30-0400 Diastolic blood pressure 70 mm[Hg] Katlin Fernandez Other [facility] Other 05-30-2022 10:30-0400 Respiratory rate 20 /min Katlin Fernandez Other [facility] Other 05-30-2022 10:30-0400 SaO2% (BldA) [Mass fraction] 98 % Katlin Fernandez Other [facility] Other 05-30-2022 10:30-0400 Systolic blood pressure 116 mm[Hg] Katlin Fernandez Other [facility] Other 05-02-2022 11:09-0500 Body temperature 97.88 [degF] Kanu [facility] 05-02-2022 11:09-0500 Diastolic blood pressure 94 mm[Hg] Kanu Robin [facility] 05-02-2022 11:09-0500 Heart rate 91 /min Kanu [facility] 05-02-2022 11:09-0500 Respiratory rate 20 /min Kanu [facility] 05-02-2022 11:09-0500 SaO2% (BldA) [Mass fraction] 99 % Kanu Kelly [facility] 05-02-2022 11:09-0500 Systolic blood pressure 138 mm[Hg] Kanu [facility] 04-11-2022 10:15-0500 Body height 154.94 cm Katlin Fernandez Other [facility] Other 04-11-2022 10:15-0500 Body mass index (BMI) [Ratio] 40.05 kg/m2 Katlin Fernandez Other [facility] Other 04-11-2022 10:15-0500 Body temperature 97.7 [degF] Katlin Fernandez Other [facility] Other 04-11-2022 10:15-0500 Body weight 96.16 kg Katlin Fernandez Other [facility] Other 04-11-2022 10:15-0500 Diastolic blood pressure 80 mm[Hg] Katlin Porterers Other [facility] Other 04-11-2022 10:15-0500 Respiratory rate 22 /min Katlin Fernandez Other [facility] Other 04-11-2022 10:15-0500 SaO2% (BldA) [Mass fraction] 97 % Katlin Porterers Other [facility] Other 04-11-2022 10:15-0500 Systolic blood pressure 110 mm[Hg] Katlin Fernandez Other [facility] Other 03-11-2022 00:01-0500 Nursing Progress Note Reason Other: medicated for headache. lights dim. [facility] 23:06-0500 Diastolic blood pressure 97 mm[Hg] [facility] 03-10-2022 23:06-0500 Heart rate 94 /min [facility] 03-10-2022 23:06-0500 Nursing Progress Note Reason Other: care assumed at this time. pt medicated for anxiety and agitation. repeat vitals done. family at bedisde. [facility] 03-10-2022 23:06-0500 Respiratory rate 16 /min [facility] 03-10-2022 23:06-0500 SaO2% (BldA) [Mass fraction] 98 % [facility] 03-10-2022 23:06-0500 Systolic blood pressure 122 mm[Hg] [facility] 03-10-2022 23:00-0500 Hourly Rounding [facility] 03-10-2022 23:00-0500 Promise to Return [facility] 03-10-2022 22:00-0500 Hourly Rounding [facility] 03-10-2022 22:00-0500 Promise to Return [facility] 03-10-2022 21:00-0500 Hourly Rounding [facility] 03-10-2022 21:00-0500 Promise to Return [facility] 03-10-2022 18:23-0500 Body temperature 97.88 [degF] [facility] 03-10-2022 18:23-0500 Heart rate 89 /min [facility] 03-10-2022 18:23-0500 Respiratory rate 21 /min [facility] 03-10-2022 18:23-0500 SaO2% (BldA) [Mass fraction] 95 % [facility] 01-25-2022 14:00-0500 Diastolic blood pressure 75 mm[Hg] [facility] 01-25-2022 14:00-0500 Heart rate 92 /min [facility] 01-25-2022 14:00-0500 Hourly Rounding [facility] 01-25-2022 14:00-0500 Promise to Return [facility] 01-25-2022 14:00-0500 Respiratory rate 18 /min [facility] 01-25-2022 14:00-0500 SaO2% (BldA) [Mass fraction] 99 % [facility] 01-25-2022 14:00-0500 Systolic blood pressure 131 mm[Hg] [facility] 01-25-2022 01:00-0500 Diastolic blood pressure 76 mm[Hg] [facility] 01-25-2022 01:00-0500 Heart rate 99 /min [facility] 01-25-2022 01:00-0500 Hourly Rounding [facility] 01-25-2022 01:00-0500 Promise to Return [facility] 01-25-2022 01:00-0500 SaO2% (BldA) [Mass fraction] 100 % [facility] 01-25-2022 01:00-0500 Systolic blood pressure 132 mm[Hg] [facility] 01-25-2022 00:55-0500 Heart rate 95 /min [facility] 01-25-2022 00:55-0500 Respiratory rate 20 /min [facility] 01-25-2022 00:55-0500 SaO2% (BldA) [Mass fraction] 98 % [facility] 01-25-2022 00:03-0500 Body temperature 98.96 [degF] [facility] 01-25-2022 00:03-0500 Diastolic blood pressure 74 mm[Hg] [facility] 01-25-2022 00:03-0500 Heart rate 106 /min [facility] 01-25-2022 00:03-0500 Systolic blood pressure 134 mm[Hg] [facility] 01-09-2022 18:45-0500 Blood Pressure Location Olivia Cogar [facility] 01-09-2022 18:45-0500 Body temperature 98.24 [degF] Olivia Cogar [facility] 01-09-2022 18:45-0500 Diastolic blood pressure 72 mm[Hg] Olivia Cogar [facility] 01-09-2022 18:45-0500 Heart rate 83 /min Olivia Cogar [facility] 01-09-2022 18:45-0500 SaO2% (BldA) [Mass fraction] 97 % Olivia Cogar [facility] 01-09-2022 18:45-0500 Systolic blood pressure 118 mm[Hg] Olivia Cogar [facility] 12-27-2021 23:40-0400 Diastolic blood pressure 86 mm[Hg] [facility] 12-27-2021 23:40-0400 Heart rate 86 /min [facility] 12-27-2021 23:40-0400 Mean blood pressure 104 mm[Hg] [facility] 12-27-2021 23:40-0400 Respiratory rate 17 /min [facility] 12-27-2021 23:40-0400 SaO2% (BldA) [Mass fraction] 95 % [facility] 12-27-2021 23:40-0400 Systolic blood pressure 141 mm[Hg] [facility] 12-27-2021 21:15-0400 Diastolic blood pressure 89 mm[Hg] [facility] 12-27-2021 21:15-0400 Heart rate 90 /min Curt [facility] 12-27-2021 21:15-0400 Mean blood pressure 104 mm[Hg] [facility] 12-27-2021 21:15-0400 Respiratory rate 19 /min [facility] 12-27-2021 21:15-0400 SaO2% (BldA) [Mass fraction] 93 % [facility] 12-27-2021 21:15-0400 Systolic blood pressure 133 mm[Hg] [facility] 12-27-2021 20:31-0400 Body temperature 98.42 [degF] Curt [facility] 12-27-2021 20:31-0400 Diastolic blood pressure 89 mm[Hg] [facility] 12-27-2021 20:31-0400 Heart rate 83 /min Curt [facility] 12-27-2021 20:31-0400 Respiratory rate 18 /min [facility] 12-27-2021 20:31-0400 SaO2% (BldA) [Mass fraction] 98 % [facility] 12-27-2021 20:31-0400 Systolic blood pressure 141 mm[Hg] Curt Yanes [facility] 12-01-2021 10:30-0400 Body height 154.94 cm Katlin Fernandez Other [facility] Other 12-01-2021 10:30-0400 Body mass index (BMI) [Ratio] 39.94 kg/m2 Katlin Fernandez Other [facility] Other 12-01-2021 10:30-0400 Body temperature 97.9 [degF] Katlin Fernandez Other [facility] Other 12-01-2021 10:30-0400 Body weight 95.89 kg Katlin Fernandez Other [facility] Other 12-01-2021 10:30-0400 Diastolic blood pressure 78 mm[Hg] Katlin Fernandez Other [facility] Other 12-01-2021 10:30-0400 Respiratory rate 18 /min Katlni Fernandez Other [facility] Other 12-01-2021 10:30-0400 SaO2% (BldA) [Mass fraction] 98 % Katlin Fernandez Other [facility] Other 12-01-2021 10:30-0400 Systolic blood pressure 104 mm[Hg] Katlin Fernandez Other [facility] Other 11-08-2021 10:15-0400 Diastolic blood pressure 82 mm[Hg] Kanu Robin [facility] 11-08-2021 10:15-0400 Heart rate 76 /min Kanu Robin [facility] 11-08-2021 10:15-0400 Mean blood pressure 99 mm[Hg] Kanu Robin [facility] 11-08-2021 10:15-0400 Respiratory rate 16 /min Kanu Robin [facility] 11-08-2021 10:15-0400 SaO2% (BldA) [Mass fraction] 98 % Kanu Robin [facility] 11-08-2021 10:15-0400 Systolic blood pressure 133 mm[Hg] Kanu Robin [facility] 11-08-2021 09:30-0400 Diastolic blood pressure 67 mm[Hg] Kanu Robin [facility] 11-08-2021 09:30-0400 Heart rate 75 /min Kanu Robin [facility] 11-08-2021 09:30-0400 Hourly Rounding Kanu Robe [facility] 11-08-2021 09:30-0400 Promise to Return Kanu Robe [facility] 11-08-2021 09:30-0400 Respiratory rate 18 /min Kanu Robin [facility] 11-08-2021 09:30-0400 SaO2% (BldA) [Mass fraction] 100 % Kanu Robin [facility] 11-08-2021 09:30-0400 Systolic blood pressure 112 mm[Hg] Kanu Robin [facility] 11-08-2021 08:45-0400 SaO2% (BldA) [Mass fraction] 98 % Kanu Rob[facility] 11-08-2021 08:30-0400 Diastolic blood pressure 60 mm[Hg] Kanu Robin [facility] 11-08-2021 08:30-0400 Heart rate 80 /min Kanu Rob[facility] 11-08-2021 08:30-0400 Hourly Rounding [facility]u Rob[facility] 11-08-2021 08:30-0400 Mean blood pressure 82 mm[Hg] Kanu Robin [facility] 11-08-2021 08:30-0400 Promise to Return Kanu Rob[facility] 11-08-2021 08:30-0400 Respiratory rate 16 /min Kanu Rob[facility] 11-08-2021 08:30-0400 Systolic blood pressure 127 mm[Hg] Kanu Robin [facility] 11-08-2021 07:45-0400 Mean blood pressure 83 mm[Hg] Kanu Robe [facility] 11-08-2021 07:30-0400 Hourly Rounding Kanu Robe [facility] 11-08-2021 07:30-0400 Promise to Return Kanu Robe [facility] 11-08-2021 06:44-0400 Body temperature 98.06 [degF] Kanu Robin [facility] 10-24-2021 21:12-0400 Diastolic blood pressure 77 mm[Hg] Curt Jo[facility] 10-24-2021 21:12-0400 Heart rate 75 /min Curt Joaqu[facility] 10-24-2021 21:12-0400 Respiratory rate 17 /min Curt Jo[facility] 10-24-2021 21:12-0400 SaO2% (BldA) [Mass fraction] 99 % Curt [facility] 10-24-2021 21:12-0400 Systolic blood pressure 121 mm[Hg] [facility] 10-24-2021 19:05-0400 Body temperature 98.6 [degF] Curt [facility] 10-24-2021 19:05-0400 Diastolic blood pressure 80 mm[Hg] Curt [facility] 10-24-2021 19:05-0400 Heart rate 79 /min Curt Jo[facility] 10-24-2021 19:05-0400 Respiratory rate 16 /min [facility] 10-24-2021 19:05-0400 SaO2% (BldA) [Mass fraction] 97 % [facility] 10-24-2021 19:05-0400 Systolic blood pressure 125 mm[Hg] Curt [facility] 10-24-2021 18:20-0400 Blood Pressure Location Olivia Cogar [facility] 10-24-2021 18:20-0400 Body temperature 98.42 [degF] Olivia Cogar [facility] 10-24-2021 18:20-0400 Diastolic blood pressure 84 mm[Hg] Olivia Cogar [facility] 10-24-2021 18:20-0400 Heart rate 83 /min Olivia Cogar [facility] 10-24-2021 18:20-0400 SaO2% (BldA) [Mass fraction] 98 % Olivia Cogar [facility] 10-24-2021 18:20-0400 Systolic blood pressure 128 mm[Hg] Olivia Cogar [facility] 09-20-2021 09:06-0400 Body temperature 98.6 [degF] Kanu Kelly [facility] 09-20-2021 09:06-0400 Diastolic blood pressure 84 mm[Hg] Kanu Robe [facility] 09-20-2021 09:06-0400 Heart rate 76 /min Kanu Robe [facility] 09-20-2021 09:06-0400 Respiratory rate 18 /min Kanu Robe [facility] 09-20-2021 09:06-0400 SaO2% (BldA) [Mass fraction] 99 % Kanu Robin [facility] 09-20-2021 09:06-0400 Systolic blood pressure 141 mm[Hg] Kanu Robin [facility] 09-13-2021 10:04-0400 Body temperature 98.42 [degF] Kanu Robin [facility] 09-13-2021 10:04-0400 Diastolic blood pressure 83 mm[Hg] Kanu Roibn [facility] 09-13-2021 10:04-0400 Heart rate 75 /min Kanu Robe [facility] 09-13-2021 10:04-0400 Respiratory rate 16 /min Kanu Kelly [facility] 09-13-2021 10:04-0400 SaO2% (BldA) [Mass fraction] 98 % Kanu Kelly [facility] 09-13-2021 10:04-0400 Systolic blood pressure 129 mm[Hg] Kanu Kelly [facility] 07-22-2021 23:29-0400 Nursing Progress Note Reason Other: discharge instructions given. pt verbalized understanding. Curt Jo[facility] 07-22-2021 23:29-0400 SaO2% (BldA) [Mass fraction] 98 % Curt Joaqu[facility] 07-22-2021 23:28-0400 Diastolic blood pressure 78 mm[Hg] Curt Joaqu[facility] 07-22-2021 23:28-0400 Heart rate 81 /min Curt Joaqu[facility] 07-22-2021 23:28-0400 Respiratory rate 16 /min Curt Joaqu[facility] 07-22-2021 23:28-0400 SaO2% (BldA) [Mass fraction] 98 % Curt Joaqu[facility] 07-22-2021 23:28-0400 Systolic blood pressure 106 mm[Hg] Curt Joaqu[facility] 07-22-2021 22:39-0400 Diastolic blood pressure 72 mm[Hg] Curt Joaqu[facility] 07-22-2021 22:39-0400 Heart rate 112 /min Curt Joaquín [facility] 07-22-2021 22:39-0400 Mean blood pressure 89 mm[Hg] Curt Joaqu[facility] 07-22-2021 22:39-0400 Respiratory rate 18 /min Curt Joaqu[facility] 07-22-2021 22:39-0400 SaO2% (BldA) [Mass fraction] 99 % Curt Jo[facility] 07-22-2021 22:39-0400 Systolic blood pressure 123 mm[Hg] Curt Joaqu[facility] 07-22-2021 21:30-0400 Diastolic blood pressure 74 mm[Hg] Curt Joaquín [facility] 07-22-2021 21:30-0400 Heart rate 97 /min Curt Joaquín [facility] 07-22-2021 21:30-0400 Mean blood pressure 95 mm[Hg] Curt Joaquín [facility] 07-22-2021 21:30-0400 Respiratory rate 19 /min Curt Joaquín [facility] 07-22-2021 21:30-0400 Systolic blood pressure 136 mm[Hg] Curt Joaquín [facility] 07-22-2021 20:21-0400 Body temperature 97.7 [degF] Curt Joaqu[facility] 07-22-2021 20:21-0400 Mean blood pressure 100 mm[Hg] Curt Joaquín [facility] 07-21-2021 00:00-0400 Diastolic blood pressure 71 mm[Hg] Curt Joaquín [facility] 07-21-2021 00:00-0400 Heart rate 78 /min Curt Joaquín [facility] 07-21-2021 00:00-0400 Mean blood pressure 87 mm[Hg] Curt Joaquín [facility] 07-21-2021 00:00-0400 Respiratory rate 16 /min Curt Joaquín [facility] 07-21-2021 00:00-0400 SaO2% (BldA) [Mass fraction] 96 % Curt Joaquín [facility] 07-21-2021 00:00-0400 Systolic blood pressure 119 mm[Hg] Curt Joaquín [facility] 07-20-2021 23:15-0400 Body temperature 98.6 [degF] Curt Joaquín [facility] 07-20-2021 23:15-0400 Diastolic blood pressure 78 mm[Hg] Curt Joaquín [facility] 07-20-2021 23:15-0400 Heart rate 81 /min Curt Joaquín [facility] 07-20-2021 23:15-0400 Respiratory rate 20 /min Curt Joaquín [facility] 07-20-2021 23:15-0400 SaO2% (BldA) [Mass fraction] 94 % Curt Joaquín [facility] 07-20-2021 23:15-0400 Systolic blood pressure 130 mm[Hg] Curt Joaquín [facility] 06-15-2021 12:12-0400 Blood Pressure Location Diandra Lacey [facility] 06-15-2021 12:12-0400 Body temperature 97.88 [degF] Diandra Rahman [facility] 06-15-2021 12:12-0400 Diastolic blood pressure 88 mm[Hg] Diandra Rahman [facility] 06-15-2021 12:12-0400 Heart rate 86 /min Diandra Rahman [facility] 06-15-2021 12:12-0400 SaO2% (BldA) [Mass fraction] 95 % Diandra Rahman [facility] 06-15-2021 12:12-0400 Systolic blood pressure 120 mm[Hg] Diandra Rahman [facility] 06-15-2021 10:00-0400 Body height 154.94 cm Claudiara Rwoe Other [facility] Other 06-15-2021 10:00-0400 Body mass index (BMI) [Ratio] 40.43 kg/m2 Claudia Soledad Other [facility] Other 06-15-2021 10:00-0400 Body temperature 97.7 [degF] Claudia Soledad Other [facility] Other 06-15-2021 10:00-0400 Body weight 97.07 kg Claudia Soledad Other [facility] Other 06-15-2021 10:00-0400 Diastolic blood pressure 70 mm[Hg] Claudia Soledad Other [facility] Other 06-15-2021 10:00-0400 Respiratory rate 18 /min Claudia Soledad Other [facility] Other 06-15-2021 10:00-0400 SaO2% (BldA) [Mass fraction] 98 % Claudia Soledad Other [facility] Other 06-15-2021 10:00-0400 Systolic blood pressure 130 mm[Hg] Claudiara Rowe Other [facility] Other 11-24-2020 09:30-0400 Body height 154.94 cm Aleena Ryder Other [facility] Other 11-24-2020 09:30-0400 Body mass index (BMI) [Ratio] 39.3 kg/m2 Aleena Ryder Other [facility] Other 11-24-2020 09:30-0400 Body temperature 96.9 [degF] Aleena Ryder Other [facility] Other 11-24-2020 09:30-0400 Body weight 94.35 kg Aleena Ryder Other [facility] Other 11-24-2020 09:30-0400 Diastolic blood pressure 74 mm[Hg] Aleena Ryder Other [facility] Other 11-24-2020 09:30-0400 Respiratory rate 18 /min Aleena Ryder Other [facility] Other 11-24-2020 09:30-0400 SaO2% (BldA) [Mass fraction] 98 % Aleena Ryder Other [facility] Other 11-24-2020 09:30-0400 Systolic blood pressure 122 mm[Hg] Aleena Landaverdehn Other [facility] Other 10-12-2020 16:00-0400 Body height 154.94 cm Katlin Fernandez Other [facility] Other 10-12-2020 16:00-0400 Body mass index (BMI) [Ratio] 39.86 kg/m2 Katlin Fernandez Other [facility] Other 10-12-2020 16:00-0400 Body temperature 98 [degF] Katlin Fernandez Other [facility] Other 10-12-2020 16:00-0400 Body weight 95.71 kg Katlin Fernandez Other [facility] Other 10-12-2020 16:00-0400 Diastolic blood pressure 80 mm[Hg] Katlinedgardo Fernandez Other [facility] Other 10-12-2020 16:00-0400 Respiratory rate 18 /min Katlin Fernandez Other [facility] Other 10-12-2020 16:00-0400 SaO2% (BldA) [Mass fraction] 98 % Katlin Fernandez Other [facility] Other 10-12-2020 16:00-0400 Systolic blood pressure 132 mm[Hg] Katlin Fernandez Other [facility] Other 03-09-2020 23:21-0500 BP Diastolic 64 mm[Hg] [place], [place] 03-09-2020 23:21-0500 BP Systolic 119 mm[Hg] Dale Montoya [facility] , [place] 03-09-2020 23:13-0500 BMI (Body Mass Index) 39.39 kg/m2 Dale Montoya [facility], [place] 03-09-2020 23:13-0500 Body Temperature 98.91 [degF] Dale Montoya [facility], [place] 03-09-2020 23:13-0500 Body weight 88.45 kg Dale [facility] , [place] 03-09-2020 23:13-0500 Height 149.9 cm Dale [facility] , [place] 03-09-2020 23:13-0500 Pulse (Heart Rate) 87 /min Dale [facility], [place] 03-09-2020 23:13-0500 Pulse Oximetry 94 % Dale [facility] , [place] 03-09-2020 23:13-0500 Respiratory Rate 20 /min Dale [facility], [place] 12-17-2019 08:27-0400 Body Temperature 98.4 [degF] Alan [facility], [place] 12-17-2019 08:27-0400 BP Diastolic 67 mm[Hg] [facility] , [place] 12-17-2019 08:27-0400 BP Systolic 110 mm[Hg] [facility] , [place] 12-17-2019 08:27-0400 Pulse (Heart Rate) 76 /min [facility], [place] 12-17-2019 08:27-0400 Pulse Oximetry 96 % [facility] , [place] 12-17-2019 08:27-0400 Respiratory Rate 18 /min [facility], [place] 12-15-2019 06:15-0400 BMI (Body Mass Index) 44.35 kg/m2 [facility], [place] 12-15-2019 06:15-0400 Body weight 99.61 kg [facility] , [place] 12-13-2019 17:30-0400 Height 149.9 cm [facility] [place] 10-29-2019 17:52-0400 Body Temperature 98.1 [degF] Maximo Bland [facility], [place] 10-29-2019 17:49-0400 BMI (Body Mass Index) 36.36 kg/m2 Maximo Bland [facility], [place] 10-29-2019 17:49-0400 Body weight 81.65 kg Maximo Bland [facility] , [place] 10-29-2019 17:49-0400 BP Diastolic 89 mm[Hg] Maximo Bland [facility] , [place] 10-29-2019 17:49-0400 BP Systolic 132 mm[Hg] Maximo Bland [facility] , [place] 10-29-2019 17:49-0400 Height 149.9 cm Maximo Bland [facility] , [place] 10-29-2019 17:49-0400 Pulse (Heart Rate) 79 /min Maximo Bland [facility], [place] 10-29-2019 17:49-0400 Pulse Oximetry 98 % Maximo Bland [facility] , [place] 10-29-2019 17:49-0400 Respiratory Rate 16 /min [facility] [place] 10-28-2019 21:03-0400 Body Temperature 98.8 [degF] [facility] [place] 01-14-2019 09:14-0500 BMI (Body Mass Index) 36.15 kg/m2 Roya Bland [facility], [place] 01-14-2019 09:14-0500 Body Temperature 98.6 [degF] [facility] [place] 01-14-2019 09:14-0500 Body weight 81.19 kg Roya Bland [facility] , [place] 01-14-2019 09:14-0500 BP Diastolic 82 mm[Hg] [facility] [place] 01-14-2019 09:14-0500 BP Systolic 136 mm[Hg] Roya Waddell [facility] , [place] 01-14-2019 09:14-0500 Height 149.9 cm [facility] [place] 01-14-2019 09:14-0500 Pulse (Heart Rate) 76 /min [facility] [place] 01-14-2019 09:14-0500 Pulse Oximetry 95 % [facility] [place] 01-14-2019 09:14-0500 Respiratory Rate 16 /min Roya Waddell [facility], [place] 01-12-2019 07:47-0500 Body Temperature 98.8 [degF] Roya [facility], [place] 01-12-2019 07:47-0500 BP Diastolic 47 mm[Hg] [facility] , [place] 01-12-2019 07:47-0500 BP Systolic 117 mm[Hg] [facility] , [place] 01-12-2019 07:47-0500 Pulse (Heart Rate) 61 /min [facility], [place] 01-12-2019 07:47-0500 Pulse Oximetry 98 % Roya [facility] , [place] 01-12-2019 07:47-0500 Respiratory Rate 16 /min Roya [facility], [place] 01-09-2019 12:45-0500 Height 152.4 cm [facility] , [place] 01-08-2019 18:20-0500 BMI (Body Mass Index) 35.15 kg/m2 [facility], [place] 01-08-2019 18:20-0500 Body weight 81.65 kg [facility] , [place] 12-19-2018 10:32-0400 Pulse (Heart Rate) 94 /min [facility], [place] 12-19-2018 09:39-0400 BP Diastolic 72 mm[Hg] [facility] , [place] 12-19-2018 09:39-0400 BP Systolic 128 mm[Hg] [facility] , [place] 12-19-2018 09:37-0400 Pulse Oximetry 96 % [facility] , [place] 12-19-2018 09:37-0400 Respiratory Rate 20 /min [facility], [place] 12-19-2018 09:36-0400 BMI (Body Mass Index) 40.4 kg/m2 [facility], [place] 12-19-2018 09:36-0400 Body Temperature 97.5 [degF] [facility] [place] 12-19-2018 09:36-0400 Body weight 90.72 kg [facility] , [place] Encounters Encounter Date Encounter Type Care Provider Facility Start: 01-02-2024 End: 01-02-2024 Office outpatient visit 25 minutes Anthony Blanton Visci DO Work Phone: [facility] Comment on above: Pelvic pain in femal e; Menometrorrhagia; Dysmenorrhea; Dyspareunia, female; Left ovarian cyst Start: 01-02-2024 End: 01-02-2024 ambulatory ANTHONY A VISCI Not Available Start: 12-28-2023 End: 12-28-2023 Telephone encounter Anthony A Visci DO Work Phone: [facility] Start: 10-27-2023 End: 10-27-2023 Emergency department patient visit KATLIN FERNANDEZ [facility] Start: 10-03-2023 End: 10-04-2023 Emergency department patient visit DO Katlin Fernandez Work Phone: [facility] Work Phone: Start: 09-21-2023 Non-patient / Non-visit DO Carina Fernandez Work Phone: [facility] Work Phone: Start: 09-20-2023 End: 09-20-2023 Emergency department patient visit DO Katlin Fernandez Work Phone: [facility] Work Phone: Start: 09-04-2023 Non-patient / Non-visit DO Carina Fernandez Work Phone: [facility] Work Phone: Start: 09-03-2023 End: 09-03-2023 Emergency department patient visit Jorge Oliva [facility] Start: 08-29-2023 Non-patient / Non-visit DO Carina Fernandez Work Phone: [facility] Work Phone: Start: 08-28-2023 Non-patient / Non-visit DO Carina Fernandez Work Phone: [facility] Work Phone: Start: 08-27-2023 End: 08-27-2023 Emergency department patient visit Jorge Oliva [facility] Start: 08-26-2023 End: 08-26-2023 Emergency department patient visit Jass Meek [facility] Start: 07-21-2023 End: 07-21-2023 Emergency department patient visit DO Katlin Fernandez Work Phone: [facility] Work Phone: Start: 07-14-2023 End: 07-14-2023 Emergency department patient visit DO Katlin Fernandez Work Phone: [facility] Work Phone: Start: 07-09-2023 Non-patient / Non-visit DO Carina Fernandez Work Phone: [facility] Work Phone: Start: 07-06-2023 End: 07-06-2023 Emergency department patient visit DO Katlin Fernandez Work Phone: [facility] Work Phone: Start: 06-20-2023 End: 06-20-2023 ambulatory ANTHONY A VISCI Not Available Start: 06-13-2023 End: 06-13-2023 Emergency department patient visit DO Katlin Fernandez Work Phone: [facility] Work Phone: Start: 06-05-2023 End: 06-05-2023 ambulatory KAYLEEN D HILLS Not Available Start: 05-22-2023 End: 05-22-2023 Admission to same day surgery center DO Katlin Fernandez Work Phone: [facility] [place] Start: 05-22-2023 End: 05-22-2023 ambulatory DO Katlin Fernandez Work Phone: [facility] Work Phone: Start: 05-17-2023 End: 05-17-2023 ambulatory ANTHONY Blanton VISCI Not Available Start: 05-16-2023 End: 05-16-2023 Emergency department patient visit DO Katlin Fernandez Work Phone: [facility] Work Phone: Start: 05-12-2023 End: 05-12-2023 Emergency department patient visit DO Katlin Fernandez Work Phone: [facility] Work Phone: Start: 05-08-2023 End: 05-08-2023 ambulatory KAYLEEN D HILLS Not Available Start: 05-01-2023 End: 05-01-2023 ambulatory KAYLEEN D HILLS Not Available Start: 05-01-2023 End: 05-01-2023 ambulatory KAYLEEN D HILLS Not Available Start: 04-17-2023 End: 04-17-2023 Emergency department patient visit DO Katlin Fernandez Work Phone: [facility] Work Phone: Start: 04-12-2023 Chart abstracting Jomar Bettencourt PT Work Phone: [facility] Start: 04-10-2023 Bamboo flowsheet Yariel Kimberly erd [employer] [facility] Start: 04-10-2023 Bamboo flowsheet Yariel Kimberly erd [employer] [facility] Start: 04-10-2023 End: 04-10-2023 ambulatory Yariel Harrisgiancarlo [employer] [facility] Comment on above: Radicular pain of ri ght upper extremity (Primary Dx); Acute pain of right shoulder Start: 04-09-2023 End: 04-09-2023 ambulatory Katlin Fernandez Other [facility] Other Start: 04-09-2023 Telephone encounter Katlin Pretty [facility] Start: 04-06-2023 End: 04-06-2023 Emergency department patient visit DO Katlin Fernandez Work Phone: [facility] Work Phone: Start: 04-03-2023 End: 04-03-2023 ambulatory JEFF KOHLER Not Available Start: 03-28-2023 Telephone encounter Katlin Pretty [facility] Start: 03-28-2023 End: 03-28-2023 ambulatory JOMAR KHANREY [facility] Other Start: 03-22-2023 Non-patient / Non-visit DO Carina Fernandez Work Phone: [facility] [employer] Work Phone: Start: 03-21-2023 End: 03-21-2023 ambulatory KAYLEEN D HILLS Not Available Start: 02-21-2023 End: 02-21-2023 ambulatory KAYLEEN D HILLS Not Available Start: 01-31-2023 End: 01-31-2023 ambulatory KAYLEEN D HILLS Not Available Start: 01-26-2023 End: 01-26-2023 Emergency department patient visit Jass Meek [facility] Start: 01-21-2023 End: 01-21-2023 Emergency department patient visit Juan Antonio Hooper [facility] Start: 12-19-2022 End: 12-19-2022 ambulatory Katlin Fernandez Other [employer] Other Start: 12-19-2022 Telephone encounter Katlin Pretty [facility] Start: 11-10-2022 End: 11-10-2022 ambulatory Katlin Fernandez Other [employer] Other Start: 11-10-2022 Telephone encounter Katlin Fernandez F [facility] Start: 11-07-2022 End: 11-07-2022 ambulatory Katlin Fernandez Other [employer] Other Start: 11-07-2022 Telephone encounter Katlin Fernandez F [facility] Start: 11-06-2022 End: 11-06-2022 Emergency department patient visit DO Katlin Fernandez Work Phone: [facility] Work Phone: Start: 08-28-2022 End: 08-31-2022 Pre-admission assessment Kayleen Pinedo [facility] Start: 08-25-2022 End: 08-25-2022 Emergency department patient visit Curt SCheryl Yanes [facility] Start: 08-09-2022 End: 08-09-2022 ambulatory Claudia Rowe Other [employer] Other Start: 08-09-2022 Telephone encounter Claudia Soledad [facility] Start: 07-03-2022 End: 07-03-2022 ambulatory Katlin Fernandez Other [employer] Other Start: 07-03-2022 Office outpatient vi sit 25 minutes Katlin Fernandez [facility] Start: 06-30-2022 End: 06-30-2022 ambulatory Katlinaleena Fernandez Other [employer] Other Start: 06-30-2022 Telephone encounter Katlin Fernandez F [facility] Start: 06-28-2022 End: 06-28-2022 Emergency department patient visit Jass Meek [facility] Start: 06-26-2022 End: 06-26-2022 ambulatory Katlin Fernandez Other [employer] Other Start: 06-26-2022 Telephone encounter Katlin Fernandez F [facility] Start: 06-22-2022 End: 06-22-2022 Emergency department patient visit Juan Antonio Rufus [facility] Start: 06-15-2022 End: 06-15-2022 ambulatory Katlin Fernandez Other [employer] Other Start: 06-15-2022 Telephone encounter Katlin Fernandez F [facility] Start: 05-30-2022 End: 05-30-2022 ambulatory Katlin Fernandez Other [employer] Other Start: 05-30-2022 Office outpatient vi sit 25 minutes Katlin Fernandez [facility] Start: 05-03-2022 End: 05-03-2022 ambulatory Katlin Fernandez Other [employer] Other Start: 05-03-2022 Telephone encounter Katlin Fernandez F [facility] Start: 05-02-2022 End: 05-02-2022 ambulatory Katlin Fernandez Other [employer] Other Start: 05-02-2022 Telephone encounter Katlin Fernandez F [facility] Start: 05-02-2022 End: 05-02-2022 Emergency department patient visit Kanu Kelly [facility] [employer] [facility] Start: 04-11-2022 End: 04-11-2022 ambulatory Katlinaleena Fernandez Other [employer] Other Start: 04-11-2022 Office outpatient vi sit 25 minutes Katlin Fernandez [facility] Start: 04-05-2022 End: 04-05-2022 ambulatory Katlin Fernandez Other [employer] Other Start: 04-05-2022 Telephone encounter Katlin Fernandez [facility] Start: 03-14-2022 End: 03-14-2022 ambulatory Katlin Fernandez Other [employer] Other Start: 03-14-2022 Telephone encounter Katlin Fernandez F [facility] Start: 03-10-2022 End: 03-11-2022 [facility] Start: 03-02-2022 End: 03-02-2022 ambulatory Katlinaleena Fernandez Other [employer] Other Start: 03-02-2022 Telephone encounter Katlin Fernandez [facility] Start: 02-14-2022 End: 02-14-2022 ambulatory Katlin Fernandez Other [employer] Other Start: 02-14-2022 Telephone encounter Katlin Fernandez [facility] Start: 01-25-2022 End: 01-25-2022 ambulatory Katlin Fernandez Other [employer] Other Start: 01-25-2022 Telephone encounter Katlin Fernandez F [facility] Start: 01-25-2022 End: 01-25-2022 Emergency department patient visit Astrit H Hajdari [facility] Start: 01-09-2022 End: 01-09-2022 Patient encounter procedure Olivia Whittaker [facility] Start: 12-27-2021 End: 12-27-2021 Emergency department patient visit Curt Yanes [facility] Start: 12-01-2021 Office outpatient vi sit 25 minutes Katlin Fernandez [facility] Start: 12-01-2021 End: 12-01-2021 ambulatory DO Katlin Fernandez Work Phone: [employer] Other Start: 12-01-2021 End: 12-01-2021 Patient encounter procedure DO Katlin Fernandez Work Phone: [facility] Start: 11-08-2021 End: 11-08-2021 Emergency department patient visit Kanu Kelly [facility] Start: 10-25-2021 End: 10-25-2021 ambulatory Katlin Fernandez Other [employer] Other Start: 10-25-2021 Telephone encounter Katlin Pretty [employer] Start: 10-24-2021 End: 10-24-2021 Emergency department patient visit Curt Yanes [facility] Start: 10-24-2021 End: 10-24-2021 Patient encounter procedure Olivia Whittaker [facility] Start: 09-21-2021 End: 09-21-2021 Patient encounter procedure Brayden POPE [facility] Start: 09-20-2021 End: 09-20-2021 Emergency department patient visit Kanu Kelly [facility] Start: 09-14-2021 End: 09-14-2021 ambulatory Katlin Fernandez Other [employer] Other Start: 09-14-2021 Telephone encounter [facility] Start: 09-13-2021 End: 09-13-2021 Emergency department patient visit Kanu Kelly [facility] Start: 07-27-2021 End: 07-27-2021 ambulatory Katlin Fernandez Other [employer] Other Start: 07-27-2021 Telephone encounter Katlin Pretty [facility] Start: 07-22-2021 End: 07-22-2021 Emergency department patient visit Curthuang Naranjo Joaquín [facility] Start: 07-20-2021 End: 07-21-2021 Emergency department patient visit Curt Ruizner [facility] Start: 07-05-2021 End: 07-05-2021 Lab Drop off Brayden POPE [facility] Start: 06-15-2021 End: 06-15-2021 ambulatory Claudia Rowe Other [employer] Other Start: 06-15-2021 Office outpatient vi sit 15 minutes Claudia Rwoe [facility] Start: 06-15-2021 End: 09-27-2021 Recurring Owenkervin OROAM [facility] Start: 06-15-2021 End: 06-15-2021 Patient encounter procedure Diandra Rahman [facility] Start: 06-14-2021 End: 06-14-2021 Patient encounter procedure Diandra Rahman [facility] Start: 05-12-2021 End: 05-12-2021 ambulatory Katlin Fernandez Other [employer] Other Start: 05-12-2021 Telephone encounter Katlin Fernandez [facility] Start: 04-20-2021 End: 04-20-2021 ambulatory Katlin Fernandez Other [employer] Other Start: 04-20-2021 Telephone encounter Katlin Fernandez [facility] Start: 03-28-2021 End: 03-28-2021 ambulatory Katlin Fernandez Other [employer] Other Start: 03-28-2021 Telephone encounter Katlin Fernandez [facility] Start: 03-02-2021 End: 03-02-2021 ambulatory Katlin Fernandez Other [employer] Other Start: 03-02-2021 Telephone encounter Katlin Fernandez [facility] Start: 12-27-2020 End: 12-27-2020 ambulatory Katlin Fernandez Other [employer] Other Start: 12-27-2020 Telephone encounter Katlin Fernandez [facility] Start: 12-24-2020 Telephone encounter Katlin Fernandez [facility] Start: 12-01-2020 Telephone encounter Katlin Pretty [facility] Start: 11-24-2020 Office outpatient vi sit 25 minutes Aleena Ryder [facility] Start: 10-12-2020 Office outpatient vi sit 15 minutes Katlin Fernandez [facility] Start: 03-10-2020 End: 03-10-2020 Emergency department patient visit KATLIN Vida RICH [facility] Start: 03-10-2020 End: 03-10-2020 Emergency department patient visit Dale Montoya Work Phone: [facility] ED Comment on above: Undifferentiated abd ominal pain (Primary Dx) Start: 12-31-2019 End: 12-31-2019 Subsequent hospital visit by physician Katlin [facility] Comment on above: Acute pyelonephritis ; Complicated UTI (urinary tract infection) Start: 12-13-2019 End: 12-17-2019 Evaluation and management of inpatient Alan Read Work Phone: [id number] Onc/Med Surg Comment on above: Complicated UTI (uri nary tract infection) (Primary Dx); Acute pyelonephritis Start: 10-29-2019 End: 10-29-2019 Emergency department patient visit [facility] ED Comment on above: Right arm pain (Prim makayla Dx) Start: 10-28-2019 End: 10-28-2019 Emergency department patient visit [facility] Start: 01-14-2019 End: 01-14-2019 Evaluation and management of inpatient Roya Waddell Work Phone: [facility] ED Comment on above: Flank pain (Primary Dx); Intractable nausea and vomiting Start: 01-08-2019 End: 01-12-2019 Evaluation and management of inpatient Roya Paulson Work Phone: [id number] Ortho/Med Surg Comment on above: Pyelonephritis (Prim makayla Dx); BV (bacterial vaginosis) Start: 12-19-2018 End: 12-19-2018 Emergency department patient visit Lupe Davila Work Phone: [facility] ED Comment on above: Pyelonephritis (Prim makayla Dx); Cyst of left ovary Start: 03-21-2017 End: 03-28-2017 ambulatory WILLIAMVAISHALI CRISTI [facility] Procedures Date Procedure Procedure Detail Performing Clinician Start: 09-20-2023 Urine culture DO Katlin Fernandez Work Phone: Start: 09-20-2023 CT of abdomen and pelvis without contrast DO Katlin Fernandez Work Phone: Start: 07-21-2023 Diagnostic radiography of abdomen DO Carina Fernandez Work Phone: Start: 07-14-2023 Computed tomography of abdomen and pelvis with contrast DO Katlin Fernandez Work Phone: Start: 07-06-2023 CT of head without contrast DO Katlin paige Work Phone: Start: 06-13-2023 Urine culture DO Katlin Fernandez Work Phone: Start: 06-13-2023 Computed tomography of abdomen and pelvis with contrast DO Katlin Fernandez Work Phone: Start: 05-22-2023 Laparoscopic procedure DO Katlin Fernandez Work Phone: Start: 05-22-2023 Surgical procedure DO Katlin Fernandez Work Phone: Start: 05-16-2023 SARS-CoV-2, Influenza & RSV (PCR) DO Carina Fernandez Work Phone: Start: 05-16-2023 Computed tomography of abdomen and pelvis with contrast DO Katlin Fernandez Work Phone: Start: 05-12-2023 Computed tomography of abdomen and pelvis with contrast DO Katlin Fernandez Work Phone: Start: 05-12-2023 Urine culture DO Katlin Fernandez Work Phone: Start: 04-17-2023 Plain X-ray of right shoulder DO Katlin Fernandez Work Phone: Start: 04-17-2023 X-ray of lumbar spine, four or more views DO Katlin Fernandez Work Phone: Start: 04-17-2023 X-ray of right ankle DO Katlin Fernandez Work Phone: Start: 04-06-2023 Plain X-ray of right shoulder DO Katlin Fernandez Work Phone: Start: 04-06-2023 Radiography of thoracic spine DO Katlin Fernandez Work Phone: Start: 04-06-2023 X-ray of cervical spine DO Katlin Mccall s Work Phone: Start: 03-10-2020 Urine test visual color cmprsn meths Dale Montoya Work Phone: Start: 03-10-2020 Urinalysis microscopic only Dale Barrett Pal e Work Phone: Start: 03-10-2020 Urnls dip stick/tablet rgnt auto w/o microscopy Dale Barrett Pale Work Phone: Start: 03-10-2020 Ct abdomen & pelvis w/o contrast material Dale Montoya Work Phone: Start: 03-10-2020 Assay of lipase Dale Montoya Work Phone: Start: 03-10-2020 Blood count complete auto&auto difrntl wbc Dale Montoya Work Phone: Start: 12-31-2019 Urinalysis microscopic only Phi Mcleod Work Phone: Start: 12-31-2019 Urnls dip stick/tablet rgnt auto w/o microscopy Phi Mcleod Work Phone: Start: 12-31-2019 Basic metabolic panel calcium total Diamond Mcleod Work Phone: Start: 12-31-2019 Blood count complete auto&auto difrntl wbc Phi Mcleod Work Phone: Start: 12-17-2019 BASIC METABOLIC PANEL W/ REFLEX TO MG FOR LOW K Matthew Spivey Work Phone: Start: 12-17-2019 Blood count complete auto&auto difrntl wbc Matthew Spivey Work Phone: Start: 12-16-2019 BASIC METABOLIC PANEL W/ REFLEX TO MG FOR LOW K Matthew Spivey Work Phone: Start: 12-16-2019 Blood count complete auto&auto difrntl wbc Matthew Spivey Work Phone: Start: 12-15-2019 Dup-scan artl monique abdl/pel/scrot&/rpr orgn lmt Nicolasa Zee Work Phone: Start: 12-15-2019 Us transvaginal Nicolasa Zee Work Phone: Start: 12-15-2019 Us retroperitoneal real time w/image complete Matthew Spivey Work Phone: Start: 12-15-2019 BASIC METABOLIC PANEL W/ REFLEX TO MG FOR LOW K Matthew Spivey Work Phone: Start: 12-15-2019 Blood count complete auto&auto difrntl wbc Matthew Spivey Work Phone: Start: 12-14-2019 Glucose blood reagent strip Howard Kelley Work Phone: Start: 12-14-2019 25 hydroxy includes fractions if performed Matthew Spivey Work Phone: Start: 12-14-2019 Assay of parathormone Matthew Spivey Work Phone: Start: 12-14-2019 BASIC METABOLIC PANEL W/ REFLEX TO MG FOR LOW K Matthew Spivey Work Phone: Start: 12-14-2019 Blood count complete auto&auto difrntl wbc Matthew Spivey Work Phone: Start: 12-14-2019 Ecg routine ecg w/least 12 lds i&r only Matthew Spivey Work Phone: Start: 12-14-2019 EKG REPORT Hpf Scanning Start: 12-13-2019 Ct abdomen & pelvis w/o contrast material E Chin [facility] Work Phone: Start: 12-13-2019 Basic metabolic panel calcium total E Ch in [facility] Work Phone: Start: 12-13-2019 Blood count complete auto&auto difrntl wbc E Hayden Mattson Work Phone: Start: 12-13-2019 Gonadotropin chorionic qualitative E Chi n Srinivasan Work Phone: Start: 12-13-2019 Procalcitonin (pct) E Hayden Mattson Work Phone: Start: 12-13-2019 Calcium urine quantitative timed specimen E Hayden Mattson Work Phone: Start: 12-13-2019 Culture bacterial quanttative colony count urine Alan Kaci Read Work Phone: Start: 12-13-2019 Urinalysis microscopic only E Hayden Mattson Work Phone: Start: 12-13-2019 Urine test visual color cmprsn meths E Hayden Mattson Work Phone: Start: 12-13-2019 Urnls dip stick/tablet rgnt auto w/o microscopy E Hayden Mattson Work Phone: Start: 10-29-2019 Radex forearm 2 views Darrion Hooper Work Phone: Start: 10-29-2019 Radex humerus minimum 2 views Darrion Hooper Work Phone: Start: 10-29-2019 Radex wrist complete minimum 3 views Darrion Hooper Work Phone: Start: 01-14-2019 Urnls dip stick/tablet reagent auto microscopy Demetri Judge Work Phone: Start: 01-14-2019 Basic metabolic panel calcium total Demetri Nu Work Phone: Start: 01-14-2019 Blood count complete auto&auto difrntl wbc Demetrijooj Judge Work Phone: Start: 01-12-2019 Basic metabolic panel calcium total Humberto Bishop Work Phone: Start: 01-12-2019 Blood count complete auto&auto difrntl wbc Humberto Bishop Work Phone: Start: 01-12-2019 C-reactive protein Humberto Bishop Work Phone: Start: 01-10-2019 Ct abdomen & pelvis w/contrast material Misa Jojo Aouad Work Phone (unformatted): [phone] Start: 01-10-2019 C-reactive protein Misa T Aouad Work Phone (unformatted): [phone] Start: 01-09-2019 INFECTIOUS DISEASE INTERVENTION Misa T Aouad Work Phone (unformatted): [phone] Start: 01-08-2019 Iadna judi species direct probe tq Roya Paulson Work Phone: Start: 01-08-2019 Iadna multiple organisms amplified probe tq Roya Paulson Work Phone: Start: 01-08-2019 Dup-scan artl monique abdl/pel/scrot&/rpr orgn lmt Osmel Yung Work Phone: Start: 01-08-2019 Us transvaginal Osmel Yung Work Phone: Start: 01-08-2019 Blood count complete automated Roya Juarez Lorene Work Phone: Start: 01-08-2019 C-reactive protein Roya Juarez Shanelskye Work Phone: Start: 01-08-2019 Gonadotropin chorionic quantitative Douglas aejuan alberto Paulson Work Phone: Start: 01-08-2019 Hemoglobin glycosylated a1c Roya Juarez Alen bree Work Phone: Start: 01-08-2019 Culture bacterial quanttative colony count urine Osmel Yung Work Phone: Start: 01-08-2019 Urine test visual color cmprsn meths Osmel Yung Work Phone: Start: 01-08-2019 Urnls dip stick/tablet reagent auto microscopy Osmel Yung Work Phone: Start: 12-19-2018 Ct abdomen & pelvis w/contrast material Harvey Palacio Work Phone: Start: 12-19-2018 Urinalysis microscopic only Harvey monterroso Work Phone: Start: 12-19-2018 Urnls dip stick/tablet rgnt auto w/o microscopy Harvey Palacio Work Phone: Start: 12-19-2018 Blood count complete auto&auto difrntl wbc Harvey Palacio Work Phone: Start: 12-19-2018 Comprehensive metabolic panel Harvey quick Work Phone: Start: 12-19-2018 Gonadotropin chorionic qualitative Marcellokervin Palacio Work Phone: section Diandra White etz Cholecystectomy Diandra Anderson tz Esophagogastroduoden oscopy gastric outlet reduction Diandra Rahman Ligation of fallopian tube Vida Rahman Plan of Treatment Date Care Activity Detail Author Start: 03-01-2028 DTaP/Tdap/Td vaccine (3 - Td) DTaP/Tdap/Td vaccine (3 - Td) [place] Start: 2024 End: 2024 Patient encounter procedure 2024 10:15 AM EST Office Visit [facility] [address] [place] [phone] Anthony Huang, DO [address] [place] [address] [facility] Start: 2024 End: 2024 Professional / ancillary services management 2024 9:30 AM EST Ancillary Procedure [facility] [address] [place] [address] [facility] Start: 01-02-2024 End: 01-02-2024 Patient encounter procedure 01/02/2024 8:45 AM EST Office Visit [facility] [address] [place] [phone] Anthony Huang, DO [address] [place] [address] [facility] Start: 10-04-2023 Bacteria identified in Urine by Culture Urine Culture [facility] Start: 10-04-2023 CT Abdomen and Pelvi s WO contrast [facility] Start: 10-04-2023 CT of abdomen and pelvis without contrast CT abdomen pelvis wo con [facility] Start: 09-20-2023 Bacteria identified in Urine by Culture Urine Culture [facility] Start: 09-20-2023 CT Abdomen and Pelvi s WO contrast [facility] Start: 09-20-2023 CT of abdomen and pelvis without contrast CT abdomen pelvis wo [facility] Start: 07-21-2023 Diagnostic radiograp hy of abdomen XR acute abdomen series [facility] Start: 07-21-2023 XR Abdomen Views [facility] Start: 06-13-2023 Bacteria identified in Urine by Culture [facility] Start: 06-13-2023 [facility] Start: 05-22-2023 [facility] Start: 05-22-2023 [facility] Start: 05-12-2023 Bacteria identified in Urine by Culture Urine Culture [facility] Start: 05-01-2023 End: 05-01-2023 Patient encounter procedure 05/01/2023 11:00 AM EST Office Visit [facility] [address] [place] [phone] Kayleen Pinedo PA [address] [place] [address] [facility] Start: 04-27-2023 End: 04-27-2023 ambulatory 04/27/2023 12:00 PM EST Treatment [facility] [address] [place] [phone] Jomar Bettencourt, PT [address] [place] [address] [facility] Start: 04-24-2023 End: 04-24-2023 ambulatory 04/24/2023 12:30 PM EST Treatment [facility] [address] [place] [address] Mini Jeff, [employer] [address] [place] [address] [facility] Start: 04-20-2023 End: 04-20-2023 ambulatory 04/20/2023 12:00 PM EST Treatment [facility] [address] [place] [address] Jeff Kohler, [employer] [address] [place] [address] [facility] Start: 04-17-2023 End: 04-17-2023 ambulatory 04/17/2023 1:00 PM EST Treatment [facility] [address] [place] [address] Jomar Bettecnourt, PT [address] [place] [address] [facility] Start: 04-13-2023 End: 04-13-2023 ambulatory 04/13/2023 12:00 PM EST Treatment [facility] [address] [place] [address] Jomar Bettencourt, PT [address] [place] [address] [facility] Start: 04-10-2023 End: 04-10-2023 ambulatory 04/10/2023 12:00 PM EST Treatment [facility] [address] [place] [address] Yariel Elam, SOURAV Arrived [facility] Comment on above: Arrived Start: 11-06-2022 Duplex scan of lower limb veins US venous duplex LE LT [facility] Start: 11-06-2022 US Lower extremity v ein - left [facility] Start: 12-24-2019 End: 12-16-2020 Basic metabolic 2000 panel Basic Metabolic Panel Lab Routine Acute pyelonephritis Complicated UTI (urinary tract infection) Expected: 12/24/2019, Expires: 12/16/2020 [place] Comment on above: Expected: 12/24/2019 , Expires: 12/16/2020 Start: 12-24-2019 End: 12-16-2020 CBC With Auto Differential CBC With Auto Differential Lab Routine Acute pyelonephritis Complicated UTI (urinary tract infection) Expected: 12/24/2019, Expires: 12/16/2020 [place] Comment on above: Expected: 12/24/2019 , Expires: 12/16/2020 Start: 12-24-2019 End: 12-16-2020 Urinalysis Reflex to Culture Urinalysis Reflex to Culture Lab Routine Acute pyelonephritis Complicated UTI (urinary tract infection) Expected: 12/24/2019, Expires: 12/16/2020 [place] Comment on above: Expected: 12/24/2019 , Expires: 12/16/2020 Start: 10-28-2019 Influenza vaccination Flu vaccine (# 1) [place] Start: 10-27-2018 Influenza vaccination Flu vaccine (# 1) [place] Start: 08-18-2018 Annual Wellness Visi t (AWV) Annual Wellness Visit (AWV) [place] Start: 02-24-2009 Cervical cancer screen Cervical canc er screen [place] Start: 02-24-2009 Screening for malign ant neoplasm of cervix Cervical cancer [place] Start: 02-24-2007 DTaP/Tdap/Td vaccine (1 - Tdap) DTaP/Tdap/Td vaccine (1 - Tdap) [place] Start: 02-24-2003 [facility] [place] [place] Start: 02-24-2003 HIV screening [facility] [place] Start: 09-04-2001 Hepatitis B vaccine (3 of 3 - 3-dose primary series) Hepatitis B vaccine (3 of 3 - 3-dose primary series) [place] Start: 02-24-2001 Varicella Vaccine (1 of 2 - 13+ 2-dose series) Varicella Vaccine (1 of 2 - 13+ 2-dose series) [place] Start: 02-24-1994 Pneumococcal 0-64 ye ars Vaccine (1 of 1 - PPSV23) Pneumococcal 0-64 years Vaccine (1 of 1 - PPSV23) [place] Start: 02-24-1989 Varicella Vaccine (1 of 2 - 2-dose childhood series) Varicella Vaccine (1 of 2 - 2-dose childhood series) [place] Start: 1988 Hepatitis C screening Hepatitis C sc reen [place] End: 12-19-2018 Bacteria identified Cx Nom (U) Urine Culture Microbiology Routine Once for 1 Occurrences starting 12/19/2018 until 12/19/2018 [place] Comment on above: Once for 1 Occurrenc es starting 12/19/2018 until 12/19/2018 Bacteria identified Cx Nom (U) [facility] Bacteria identified in Urine by Culture [facility] Bacteria identified in Urine by Culture [facility] Basic Metabolic Pane l w/ Reflex to MG Basic Metabolic Panel w/ Reflex to MG Lab Routine Daily until discontinued starting 12/14/2019, 4 completed [place] Comment on above: Daily until disconti nued starting 12/14/2019, 4 completed End: 12-14-2019 C.trachomatis N.gonorrhoeae DNA C.trachomatis N.gonorrhoeae DNA Microbiology Routine One Time for 1 Occurrences starting 12/14/2019 until 12/14/2019 [place] Comment on above: One Time for 1 Occur rences starting 12/14/2019 until 12/14/2019 End: 12-14-2019 CALCIUM, RANDOM URINE CALCIUM, RANDOM URINE Lab Routine One Time for 1 Occurrences starting 12/14/2019 until 12/14/2019 [place] Comment on above: One Time for 1 Occur rences starting 12/14/2019 until 12/14/2019 CBC auto differential CBC auto d ifferential Lab Routine Daily until discontinued starting 12/14/2019, 4 completed [place] Comment on above: Daily until disconti nued starting 12/14/2019, [address] ABDOMEN PELVIS W IV CONTRAST Additional Contrast? None CT ABDOMEN PELVIS W IV CONTRAST Additional Contrast? None Imaging STAT 12/19/2018 10:50 AM EDT [facility] [place] End: 12-14-2019 Culture, Blood 1 Culture, Blood 1 Microbiology STAT One Time for 1 Occurrences starting 12/14/2019 until 12/14/2019 [facility] [place] Comment on above: One Time for 1 Occur rences starting 12/14/2019 until 12/14/2019 End: 12-31-2019 Culture, Urine Culture, Urine Microbiology Routine Once for 1 Occurrences starting 12/31/2019 until 12/31/2019 [facility] [place] Comment on above: Once for 1 Occurrenc es starting 12/31/2019 until 12/31/2019 End: 01-10-2019 Infectious Disease Intervention Infectious Disease Intervention Microbiology Routine One Time for 1 Occurrences starting 01/10/2019 until 01/10/2019 [place] Comment on above: One Time for 1 Occur rences starting 01/10/2019 until 01/10/2019 End: 12-14-2019 OCCULT BLOOD SCREEN OCCULT BLOOD SCREEN Lab Routine One Time for 1 Occurrences starting 12/14/2019 until 12/14/2019 [facility] [place] Comment on above: One Time for 1 Occur rences starting 12/14/2019 until 12/14/2019 Oxygen therapy [[facility] Data Set] Initiate Oxygen Therapy Protocol Respiratory Care Routine Daily until discontinued starting 12/14/2019 [facility] [place] Comment on above: Daily until disconti nued starting 12/14/2019 Patient Education [facility] Work Phone: Patient referral [facility] Work Phone: Immunizations Immunization Date Immunization Notes Care Provider Fa jo ann 03-31-2019 PROMETHAZINE (Phenergan) up to 50 mg Aleena Ryder Other [facility] Other 03-01-2018 tetanus toxoid, reduced diphtheria toxoid, and acellular pertussis vaccine, adsorbed Olivia Cogar [facility] 03-08-2017 influenza, seasonal, injectable Aleena Ryder Other [facility] Other 12-01-2016 tetanus toxoid, reduced diphtheria toxoid, and acellular pertussis vaccine, adsorbed; Translations: [Adacel (Tdap)] Diandra Rahman [facility] 07-10-2001 hepatitis B vaccine, pediatric or pediatric/adolescent dosage Olivia Cogar [facility] 01-21-2001 hepatitis B vaccine, pediatric or pediatric/adolescent dosage Olivia Cogar [facility] 01-21-2001 measles, mumps and rubella virus vaccine Olivia Cogar [facility] NEGATED: Highlighted row has not occurred!03-08-2017 influenza, seasonal, injectable Katlin Fernandez Other [facility] Other Payers Date Payer Category Payer Self-pay [id number] 2019 Medicaid [id number] 2018 Medicaid MEDICAID [facility] DEPT OF JOB xxxxxxxxxxxx 2018-Present [phone] [address] [place] [address] xxxxxxxxxxxx [id number]. [id number] 2015 Medicaid [id number] [id number]. [id number] 2014 Medicare MEDICARE MEDICAR E PART A AND B xxxxxxxxxxx 2014-Present [phone] [place] [address] xxxxxxxxxxx [id number]. [id number] 2008 Medicare [id number] 1.13.693.2. [id number] 2008 Medicare [id number] 1.2.840.816123.1.13.239.2. 7.3.211051.315 1988 Unknown [id number] 2.16.840.1.414894.3.579.2. 177 1988 Unknown [id number] 2.16.840.1.552890.3.579.2. 727 1988 Unknown [id number] 2.16.840.1.416185.3.579.2. 727 1988 Unknown [id number] 2.16.840.1.960325.3.579.2. 727 1988 Unknown [id number] 2.16.840.1.360276.3.579.2. 727 1988 Unknown [id number] 2.16.840.1.907731.3.579.2. 727 1988 Unknown [id number] 2.16.840.1.268083.3.579.2. 727 1988 Unknown [id number] 2.16.840.1.999962.3.579.2. 727 1988 Unknown [id number] 2.16.840.1.149689.3.579.2. 175 1988 Unknown [id number] 2.16.840.1.056416.3.579.2. 1259 1988 Unknown [id number] 2.16.840.1.960053.3.579.2. 1259 1988 Unknown [id number] 2.16.840.1.911598.3.579.2. 1259 1988 Unknown [id number] 2.16.840.1.705543.3.579.2. 1259 1988 Unknown [id number] 2.16.840.1.028032.3.579.2. 1259 1988 Unknown [id number] 2.16.840.1.616294.3.579.2. 9 1988 Unknown [id number] 2.16.840.1.962383.3.579.2. 9 1988 Unknown [id number] 2.16.840.1.120413.3.579.2. 1258 1988 Unknown [id number] 2.16.840.1.738441.3.579.2. 1258 1988 Unknown [id number] 2.16.840.1.152518.3.579.2. 1258 1988 Unknown [id number] 2.16.840.1.556020.3.579.2. 1258 1988 Unknown [id number] 2.16840.1.188475.3.579.2. 1258 1988 Unknown [id number] 2.16.840.1.510258.3.579.2. 9 1988 Unknown [id number] 2.16.840.1.089816.3.579.2. 1258 1988 Unknown [id number] 2.16.840.1.642072.3.579.2. 1258 1988 Unknown [id number] 2.16840.1.863153.3.579.2. 1258 1988 Unknown [id number] 2.16.840.1.074156.3.579.2. 1259 Medicare Medicare Nonpatient [id number] Unknown [id number] 2.16.840.1.222210.3.579.2. 531 Unknown [id number] 2.16.840.1.035666.3.579.2. 531 Unknown [id number] 2.16.840.1.117839.3.579.2. 531 Unknown [id number] 2.16.840.1.971751.3.579.2. 531 Unknown [id number] 2.16.840.1.047671.3.579.2. 531 Unknown [id number] 2.16.840.1.249242.3.579.2. 531 Unknown [id number] 2.16.840.1.789851.3.579.2. 531 Unknown [id number] 2.16.840.1.191471.3.579.2. 531 Unknown [id number] 2.16.840.1.772723.3.579.2. 531 Unknown [id number] 2.16.840.1.363787.3.579.2. 531 Unknown [id number] 2.16.840.1.969076.3.579.2. 531 Unknown [id number] 2.16.840.1.555272.3.579.2. 531 Worker's Compensation [id number] Social History Date Type Detail Facility Start: 12-19-2018 End: 11-07-2022 Tobacco smoking status [facility] Current every day smoker [facility] End: 02-24-2019 History of tobacco use Cigar [place] Start: 12-19-2018 End: 05-17-2023 Alcohol intake No [place] Start: 1990 Sex Assigned At Not on file M [place] Start: 12-19-2018 End: 01-14-2019 Alcohol intake Current non-drinker of alcohol (finding) [place] Start: 10-29-2019 End: 05-17-2023 Tobacco smoking status MAIS Former sm[place] Start: 11-06-2022 End: 10-04-2023 History of tobacco use Current [place] Start: 10-29-2019 End: 05-17-2023 Tobacco use and exposure Never used [place] Exposure to SARS-CoV-2 (event) Not sure [place] Start: 03-09-2020 End: 02-24-2019 Tobacco smoking status NHIS Current some day smoker [place] Start: 03-09-2020 End: 03-21-2023 Alcohol intake Current drinker of alcohol (finding) [place] Start: 03-09-2020 Alcohol Comment occ [facility] [place] Start: 06-15-2021 End: 11-08-2021 Tobacco smoking status Light tobacco smoker (finding) [facility] Tobacco smoking status Never [facility] Start: 10-24-2021 Tobacco smoking status Heavy tobacco smoker (finding) [facility] Start: 1990 Sex Assigned At Female F [facility] Tobacco Current vaping o r e-cigarette use Smokeless Tobacco Use:. [facility] Tobacco smoking status No Smoking Status Entered [facility] History of tobacco use Cigarette Smoker [facility] Start: 03-21-2023 End: 05-17-2023 History of Social function [facility] Start: 11-07-2022 Tobacco Comment Smokes 1-/19 cigarettes/day [facility] Start: 11-07-2022 Alcohol Comment caffeine 1-2 cups/day [facility] Start: 04-17-2023 Tobacco smoking status NHIS Never smoked tobacco (finding) [facility] Start: 06-19-2023 End: 01-02-2024 Alcoholic beverage intake Lifetime non-drinker (finding) [facility] How often to you hav e a drink containing alcohol? Never [facility] NEGATED: Highlighted row [facility] Goals Date Patient Goal Desired Activity /State Functional Status Date Assessment Result Facility 09-03-2023 Functional Status N/A [facility] 08-27-2023 Functional Status N/A [facility] 08-26-2023 Functional Status N/A [facility] 01-26-2023 Functional Status N/A [facility] 01-21-2023 Functional Status N/A [facility] 08-25-2022 Functional Status N/A [facility] 06-28-2022 Functional Status N/A [facility] 06-22-2022 Functional Status N/A [facility] 05-02-2022 Functional Status N/A [facility] 03-10-2022 Functional Status N/A [facility] 01-25-2022 Functional Status N/A [facility] 01-09-2022 Functional Status N/A [facility] 12-27-2021 Functional Status N/A [facility] 11-08-2021 N/A [facility] 10-24-2021 Functional Status N/A [facility] 09-20-2021 Functional Status N/A [facility] 09-13-2021 Functional Status N/A [facility] Clinical Notes 10-12-2020 to 01-02-2024 Anthony Huang, - 01/02/2024 8:45 AM [facility]Tele[facility] - 12/28/2023 9:44 AM EDTTelephone Encounter - [facility] - 12/28/2023 9:44 AM EDT Note Date & Type Note Facility 01-02-2024 History of Presen t illness Narrative Images from the original note were not included. Subjective Tracie Samuels is a 33 y.o. female Chief Complaint Patient presents with Gynecologic Exam Pt presents for left ovary cyst. Patient states she went to [facility] as well as [facility] in [place] both telling her nothing was wrong. Patient states she was in too much pain and went to [place] [facility] and that's when she found out about the cyst being swollen. Patient states her pain level is a 10. She's hoping to just get the surgery History of Present Illness Current Outpatient Medications: albuterol (2.5 MG/3ML) 0.083% nebulizer solution, Take 2.5 mg by nebulization as needed., Disp: , Rfl: albuterol HFA 90 mcg/act inhaler, Inhale 2 puffs if needed, Disp: , Rfl: cetirizine (ZyrTEC) 10 MG chewable tablet, Chew Daily., Disp: , Rfl: oxyCODONE-acetaminophen (Percocet) 5-325 MG tablet, TAKE 1 TABLET BY MOUTH EVERY 6 HOURS NEEDED FOR PAIN FOR 3 DAYS, Disp: , Rfl: tiZANidine (Zanaflex) 4 MG tablet, Three times daily, Disp: , Rfl: traZODone (Desyrel) 100 MG tablet, , Disp: , Rfl: Past Medical History: Diagnosis Date Depression (CMS/HCC) Diabetes (CMS/HCC) Endometriosis determined by laparoscopy Hypertension (CMS/HCC) Ovarian cyst Past Surgical History: Procedure Laterality Date SECTION, LOW TRANSVERSE 2007, 2009 EGD with biopsy OTHER SURGICAL HISTORY Right laparotomy with partial, right salpingectomy- endometriosis OTHER SURGICAL HISTORY 2013 tubes tied PELVIC LAPAROSCOPY 05/22/2023 op lap with lysis of pelvic adhesions, R oophorectomy and bilateral salpingectomies TONSILLECTOMY Family History Problem Relation Name Age of Onset Anemia Sister Hyperlipidemia Sister Migraines Sister OB History Para Term AB Living 2 1 0 0 1 1 SAB IAB Ectopic Multiple Live Births 1 0 0 0 1 # Outcome Date GA Lbr Luis/2nd Weight Sex Type Anes PTL Lv 2 SAB 1 Para Review of Systems All negative unless documented in treatment Objective Visit Vitals BP 128/80 (BP Location: Right arm) Wt 215 lb LMP 12/10/2023 (Exact Date) BMI 43.42 kg/m OB Status Having periods Smoking Status Former BSA 2.01 m Allergies Allergen Reactions Codeine Other Reaction(s): itching, Swelling of Lip/Tongue/Throat Acetaminophen Other Reaction(s): Unknown Reaction Cephalexin Other Cyclobenzaprine Other and GI intolerance Fish-Derived Products Other Gabapentin Unknown Guaifenesin Other Reaction(s): itching Hydrocodone Other Reaction(s): Vomiting Lactose Other Reaction(s): vomiting Milk-Related Compounds Swelling and Other Penicillins Other and GI intolerance Physical Exam Constitutional: Appearance: Normal appearance. Genitourinary: Vulva, bladder, rectum and urethral meatus normal. Right Labia: No rash, tenderness, lesions, skin changes or Bartholin's cyst. Left Labia: No tenderness, lesions, skin changes, Bartholin's cyst or rash. No vaginal discharge, erythema, tenderness or bleeding. No vaginal atrophy present. Right Adnexa: not tender and no mass present. Left Adnexa: not tender and no mass present. No cervical motion tenderness, discharge or lesion. No parametrium nodularity or thickening present. Uterus is not enlarged, fixed or tender. Uterus is anteverted. HENT: Head: Normocephalic and atraumatic. Cardiovascular: Rate and Rhythm: Normal rate and regular rhythm. Heart sounds: Normal heart sounds. Pulmonary: Effort: Pulmonary effort is normal. Breath sounds: Normal breath sounds. Abdominal: General: There is no distension. Palpations: Abdomen is soft. There is no mass. Tenderness: There is abdominal tenderness (left-sided abdominal tenderness). There is guarding (voluntary guarding). There is no right CVA tenderness, left CVA tenderness or rebound. Hernia: No hernia is present. Musculoskeletal: Right lower leg: No edema. Left lower leg: No edema. Neurological: Mental Status: She is alert and oriented to person, place, and time. Skin: General: Skin is warm and dry. Findings: No rash. Procedures ICD-10-CM 1. Pelvic pain in female R10.2 2. Menometrorrhagia N92.1 3. Dysmenorrhea N94.6 4. Dyspareunia, female N94.10 U/S 10/27/23: uterus normal, endometrium 0.5cm, R ovary not visualized, L ovary normal, no free fluid U/S 12/26/23: endometrium 12mm, R ovary not visualized, LOC 3.1x2.0x3.0cm, small amount of free fluid Patient states she is in severe pain and has a hard time walking, sleeping. She went to [place] and was advised no cause found for pain. She then went to [place] and was dx with LOC. She states she has been in severe pain for 3 months. She is adamant she would like cyst removed. Discussed starting medication to resolve cyst. LMP 1014- admits to severe cramping with menses and heavy flow for 4-5 days. C/o dyspareunia. She is very adamant she wants surgery to correct problem. She is 100% positive she does desire any more children. She had surgery 05/22/23- lap with lysis of pelvic adhesions, R oophorectomy and bilateral salpingectomies. She states pain is similar to when she had surgery. Discussed trying continuous OCP to see if cyst resolves and also help with dysmenorrhea and menorrhagia. Will schedule repeat U/S in 8 weeks and start Sprintec continuous pills now. Entered by Lluvia Mccarty LPN acting as scribe for Dr. Anthony Huang. Signature: Lluvia Mccarty LPN The documentation recorded by the scribe accurately reflects the service(s) I personally performed and the decisions I made. Signature: Anthony Huang DO Assessment & Plan documented in this encounter [facility] 12-28-2023 Telephone encounter Note Patient called stating she was seen at [facility] this past Sunday. The patient said that they had found a cyst on the left ovary. She is in a lot of pain. The Er gave her 500 mg of citromloxicin, nausea pills and tramadol. The paitent was told she had a bacteria infection as well. She would like the soonest apt with . [facility] 12-28-2023 Miscellaneous Notes Patient called stating she was seen at [facility] this past Sunday. The patient said that they had found a cyst on the left ovary. She is in a lot of pain. The Er gave her 500 mg of citromloxicin, nausea pills and tramadol. The paitent was told she had a bacteria infection as well. She would like the soonest apt with . documented in this encounter [facility] 09-04-2023 Hospital Discharg e instructions Patient Education 09/03/2023 22:12:36 Constipation, Adult, Qlxb-jn-Clin Constipation, Adult Constipation is when a person has trouble pooping (having a bowel movement). When you have this condition, you may poop fewer than 3 times a week. Your poop (stool) may also be dry, hard, or bigger than normal. Follow these instructions at home: Eating and drinking Eat foods that have a lot of fiber, such as: ?Fresh fruits and vegetables. ?Whole grains. ?Beans. Eat less of foods that are low in fiber and high in fat and sugar, such as: ?Liberian fries. ?Hamburgers. ?Cookies. ?Candy. ?Soda. Drink enough fluid to keep your pee (urine) pale yellow. General instructions Exercise regularly or as told by your doctor. Try to do 150 minutes of exercise each week. Go to the restroom when you feel like you need to poop. Do not hold it in. Take gdbb-lkq-olmavhj and prescription medicines only as told by your doctor. These include any fiber supplements. When you poop: ?Do deep breathing while relaxing your lower belly (abdomen). ?Relax your pelvic floor. The pelvic floor is a group of muscles that support the rectum, bladder, and intestines (as well as the uterus in women). Watch your condition for any changes. Tell your doctor if you notice any. Keep all follow-up visits as told by your doctor. This is important. Contact a doctor if: You have pain that gets worse. You have a fever. You have not pooped for 4 days. You vomit. You are not hungry. You lose weight. You are bleeding from the opening of the butt (anus). You have thin, pencil-like poop. Get help right away if: You have a fever, and your symptoms suddenly get worse. You leak poop or have blood in your poop. Your belly feels hard or bigger than normal (bloated). You have very bad belly pain. You feel dizzy or you faint. Summary Constipation is when a person poops fewer than 3 times a week, has trouble pooping, or has poop that is dry, hard, or bigger than normal. Eat foods that have a lot of fiber. Drink enough fluid to keep your pee (urine) pale yellow. Take ystu-wiz-sicnepp and prescription medicines only as told by your doctor. These include any fiber supplements. This information is not intended to replace advice given to you by your health care provider. Make sure you discuss any questions you have with your health care provider. Document Revised: 12/31/2019 Document Reviewed: 12/31/2019 [employer] Patient Education 2022 [facility] [facility]. Follow Up Care 09/03/2023 20:40:38 With:Yanick Bolivar Address: [address] [place] [address]- When:09/06/2023 21:57:30 With:KATLIN FERNANDEZ Address: [address] [place] [id number] Business (1) When:09/06/2023 21:56:58 Comments:Take the Flomax once daily until you have completed the course. Take the MiraLAX once daily until you are having regular bowel movements. You can use the pain medication, nausea medication as prescribed as needed for pain and nausea. Please follow-up with your primary care doctor next 2 to 3 days. Please return to the ED for any new or worsening symptoms. [facility] 09-03-2023 Note ED Patient Education Note Gastroenterology Constipation, Adult Constipation is when a person has trouble pooping (having a bowel movement). When you have this condition, you may poop fewer than 3 times a week. Your poop (stool) may also be dry, hard, or bigger than normal. Follow these instructions at home: Eating and drinking ? Eat foods that have a lot of fiber, such as: ? Fresh fruits and vegetables. ? Whole grains. ? Beans. ? Eat less of foods that are low in fiber and high in fat and sugar, such as: ? Liberian fries. ? Hamburgers. ? Cookies. ? Candy. ? Soda. ? Drink enough fluid to keep your pee (urine) pale yellow. General instructions ? Exercise regularly or as told by your doctor. Try to do 150 minutes of exercise each week. ? Go to the restroom when you feel like you need to poop. Do not hold it in. ? Take rwbc-tau-vxuscts and prescription medicines only as told by your doctor. These include any fiber supplements. ? When you poop: ? Do deep breathing while relaxing your lower belly (abdomen). ? Relax your pelvic floor. The pelvic floor is a group of muscles that support the rectum, bladder, and intestines (as well as the uterus in women). ? Watch your condition for any changes. Tell your doctor if you notice any. ? Keep all follow-up visits as told by your doctor. This is important. Contact a doctor if: ? You have pain that gets worse. ? You have a fever. ? You have not pooped for 4 days. ? You vomit. ? You are not hungry. ? You lose weight. ? You are bleeding from the opening of the butt (anus). ? You have thin, pencil-like poop. Get help right away if: ? You have a fever, and your symptoms suddenly get worse. ? You leak poop or have blood in your poop. ? Your belly feels hard or bigger than normal (bloated). ? You have very bad belly pain. ? You feel dizzy or you faint. Summary ? Constipation is when a person poops fewer than 3 times a week, has trouble pooping, or has poop that is dry, hard, or bigger than normal. ? Eat foods that have a lot of fiber. ? Drink enough fluid to keep your pee (urine) pale yellow. ? Take trzc-juv-pgwrzeu and prescription medicines only as told by your doctor. These include any fiber supplements. This information is not intended to replace advice given to you by your health care provider. Make sure you discuss any questions you have with your health care provider. Document Revised: 12/31/2019 Document Reviewed: 12/31/2019 [employer] Patient Education ? [address] [facility] [facility] 09-03-2023 Evaluation + Plan note Extrac rachelle from: Title:ED Note Author:Jorge Oliva DO Date :09/03/23 Constipation (K59.00: Consti pation, unspecified) Flank pain (R10.9: Unspecified abdominal pain) Renal colic (N23: Unspecified renal colic) Orders: acetaminophen-oxycodone, 1 EA, Tab, Oral, Once, Stop date 09/03/23 21:53:00 EDT, STAT, Start date 09/03/23 21:53:00 EDT acetaminophen-oxycodone, 1 tab(s), Oral, q6hr for 2 day(s), 7 tab(s), Refill(s) 0 ketorolac, 30 mg = 1 mL, Injection, IV Push, Once, Stop date 09/03/23 20:55:00 EDT, STAT, Start date 09/03/23 20:55:00 EDT, 09/03/23 20:55:00 EDT ondansetron, 4 mg = 2 mL, Injection, IV Push, Once, Stop date 09/03/23 20:55:00 EDT, STAT, Start date 09/03/23 20:55:00 EDT, 09/03/23 20:55:00 EDT ondansetron, 4 mg = 1 tab(s), Oral, q8hr, # 12 tab(s), Refills(s) 0 ondansetron, 4 mg = 1 tab(s), Tab-Dis, Oral, Once, Stop date 09/03/23 21:53:00 EDT, STAT, Start date 09/03/23 21:53:00 EDT, 09/03/23 21:53:00 EDT polyethylene glycol 3350, 17 gm, Oral, Daily, # 24 EA, Refills(s) 0 Sodium Chloride 0.9% intravenous solution 1,000 mL, 1,000 mL, IV, 983.61 mL/hr, for 30 day(s), Stop date 10/03/23 20:54:00 EDT, STAT, Start date 09/03/23 20:55:00 EDT, 61 minute(s), Total volume (mL): 1,000, 97.7 kg, 2.02, m2 tamsulosin, 0.4 mg = 1 cap(s), Oral, Daily, # 10 cap(s), Refills(s) 0 Basic Metabolic Panel Beta hCG Quantitative CBC w/ Auto Diff eGFR Extra Blue Tube Extra SST Tube UA with Cult Rflx XR Abdomen 1 View [facility]07-02-2024 Hospital Discharge instructions Patient Education 08/27/2023 23:24:04 Flank Pain, Adult Flank Pain, Adult Flank pain is pain that is located on the side of the body between the upper abdomen and the spine.This area is called the flank. The pain may occur over a short period of time (acute), or it may belong-term or recurring (chronic). It may be mild or severe. Flank pain can be caused by many things, including: Muscle soreness or injury. Kidney infection, kidney stones, or kidney disease. Stress. A disease of the spine (vertebral disk disease). A lung infection (pneumonia). Fluid around the lungs (pulmonary edema). A skin rash caused by the chickenpox virus (shingles). Tumors that affect the back of the abdomen. Gallbladder disease. Follow these instructions at home: Drink enough fluid to keep your urine pale yellow. Rest as told by your health care provider. Take keyf-ajn-tqnftvb and prescription medicines only as told by your health care provider. Keep a journal to track what has caused your flank pain and what has made it feel better. Keep all follow-up visits. This is important. Contact a health care provider if: Your pain is not controlled with medicine. You have new symptoms. Your pain gets worse. Your symptoms last longer than 2 3 days. You have trouble urinating or you are urinating very frequently. Get help right away if: You have trouble breathing or you are short of breath. Your abdomen hurts or it is swollen or red. You have nausea or vomiting. You feel faint, or you faint. You have blood in your urine. You have flank pain and a fever. These symptoms may represent a serious problem that is an emergency. Do not wait to see if the symptoms will go away. Get medical help right away. Call your local emergency services (911 in the [place] Do not drive yourself to the hospital. Summary Flank pain is pain that is located on the side of the body between the upper abdomen and the spine. The pain may occur over a short period of time (acute), or it may be long-term or recurring (chronic). It may be mild or severe. Flank pain can be caused by many things. Contact your health care provider if your symptoms get worse or last longer than 2 3 days. This information is not intended to replace advice given to you by your health care provider. Make sure you discuss any questions you have with your health care provider. Document Revised: 04/25/2021 Document Reviewed: 04/25/2021 [employer] Patient Education 2022 [facility] [facility]. Follow Up Care 08/27/2023 19:05:02 With:KATLIN FERNANDEZ Address: [address] [place], [place] [id number] [facility] (1) When:08/30/2023 Comments:Call for diagnosis based follow up [facility]07-01-2024 NoteED Patient Education Note Orthopedics Flank Pain, Adult Flank pain is pain that is located on the side of the body between the upper abdomen and the spine.This area is called the flank. The pain may occur over a short period of time (acute), or it may belong-term or recurring (chronic). It may be mild or severe. Flank pain can be caused by many things, including: ? Muscle soreness or injury. ? Kidney infection, kidney stones, or kidney disease. ? Stress. ? A disease of the spine (vertebral disk disease). ? A lung infection (pneumonia). ? Fluid around the lungs (pulmonary edema). ? A skin rash caused by the chickenpox virus (shingles). ? Tumors that affect the back of the abdomen. ? Gallbladder disease. Follow these instructions at home: ? Drink enough fluid to keep your urine pale yellow. ? Rest as told by your health care provider. ? Take pors-ljd-irqrhzz and prescription medicines only as told by your health care provider. ? Keep a journal to track what has caused your flank pain and what has made it feel better. ? Keep all follow-up visits. This is important. Contact a health care provider if: ? Your pain is not controlled with medicine. ? You have new symptoms. ? Your pain gets worse. ? Your symptoms last longer than 2?3 days. ? You have trouble urinating or you are urinating very frequently. Get help right away if: ? You have trouble breathing or you are short of breath. ? Your abdomen hurts or it is swollen or red. ? You have nausea or vomiting. ? You feel faint, or you faint. ? You have blood in your urine. ? You have flank pain and a fever. These symptoms may represent a serious problem that is an emergency. Do not wait to see if the symptoms will go away. Get medical help right away. Call your local emergency services (911 in the [place] Do not drive yourself to the hospital. Summary ? Flank pain is pain that is located on the side of the body between the upper abdomen and the spine. ? The pain may occur over a short period of time (acute), or it may be long-term or recurring (chronic). It may be mild or severe. ? Flank pain can be caused by many things. ? Contact your health care provider if your symptoms get worse or last longer than 2?3 days. This information is not intended to replace advice given to you by your health care provider. Make sure you discuss any questions you have with your health care provider. Document Revised: 04/25/2021 Document Reviewed: 04/25/2021 [employer] Patient Education ? 2022 [facility] 08-26-2023 Evaluation + Plan noteExtracted from: Title:ED Note Author:Jax Lassiter PA-C te:08/26/23 Migraine headache (G43.909: Migraine, unspecified, not intractable, without status migrainosus) Orders: diphenhydrAMINE, 25 mg = 0.5 mL, Injection, IntraMuscular, Once, Stop date 08/26/23 9:28:00 EDT, STAT, Start date 08/26/23 9:28:00 EDT, 08/26/23 9:28:00 EDT ketorolac, 60 mg = 2 mL, Injection, IntraMuscular, Once, Stop date 08/26/23 9:28:00 EDT, STAT, Start date 08/26/23 9:28:00 EDT, 08/26/23 9:28:00 EDT metoclopramide, 10 mg = 2 mL, Injection, IntraMuscular, Once, Stop date 08/26/23 9:29:00 EDT, STAT, Start date 08/26/23 9:29:00 EDT, 08/26/23 9:29:00 EDT [facility]06-30-2024 Hospital Discharge instructions Patient Education 08/26/2023 11:11:09 Chronic Migraine Headache Chronic Migraine Headache A migraine is a type of headache that is usually stronger and more sudden than other headaches. Migraines are characterized by an intense pulsing, throbbing pain that is usually only present on one side of the head. Migraine pain usually gets worse with activity. Migraines can cause nausea, vomiting, sensitivity to light and sound, and vision changes. Migrainesthat keep coming back are called recurrent migraines. A migraine is called a chronic migraine if ithappens at least 15 days in a month for more than 3 months. Talk with your health care provider about what things may bring on (trigger) your migraines. What are the causes? The exact cause of this condition is not known. However, a migraine may be caused when nerves in the brain become irritated and release chemicals that cause inflammation of blood vessels. The inflammation of the blood vessels causes pain. Migraines may be triggered or caused by: Smoking. Certain foods and drinks, such as: ?Aged cheese. ?Chocolate. ?Alcohol. ?Caffeine. ?Foods or drinks that contain nitrates, glutamate, aspartame, MSG, or tyramine. Medicines, such as control pills or some blood pressure medicines. Other things that may trigger a migraine include: Menstruation. Emotional stress. Lack of sleep or too much sleep. Tiredness (fatigue). Bright lights or loud noises. Odors. Weather changes and high altitude. What increases the risk? The following factors may make you more likely to experience chronic migraine: Having migraines or a family history of migraines. Having a mental health condition, such as depression or anxiety. Having to take a lot of pain medicine. Having sleep problems. Having heart disease, diabetes, or obesity. What are the signs or symptoms? Symptoms of a migraine vary for each person and may include: Pulsating or throbbing pain. Pain that is usually only present on one side of the head. In some cases, the pain may be on both sides of the head or around the head or neck. Severe pain that prevents you from doing daily activities. Pain that gets worse with physical activity. Nausea, vomiting, or both. Pain with exposure to bright lights, loud noises, or activity. General sensitivity to bright lights, loud noises, or smells. Dizziness. A sign that a migraine is becoming chronic is an increasing number of migraine episodes. It is considered chronic if the migraine happens at least 15 days in a month for more than 3 months. How is this diagnosed? This condition is often diagnosed based on: Your symptoms and medical history. A physical exam. You may also have tests, including: A CT scan or an MRI of your brain. These imaging tests cannot diagnose migraines, but they can helpto rule out other causes of headaches. Taking fluid from the spine (lumbar puncture) and analyzing it (cerebrospinal fluid analysis, or CSF analysis). Blood tests. How is this treated? This condition is treated with: Medicines. These help to: ?Lessen pain and nausea. ?Prevent migraines. Lifestyle changes, such as changes to your diet or sleeping patterns. Behavior therapy. This may include: ?Relaxation training. ?Biofeedback. This is a treatment that teaches you to relax and use your brain to lower your heart rate and control your breathing. ?Cognitive behavioral therapy (CBT). This is a form of talk therapy. This therapy helps you set goals and follow up on the changes that you make. Acupuncture. Using a device that provides electrical stimulation to your nerves, which can relieve pain (neuromodulation therapy). Surgery, if the other treatments are not working. Follow these instructions at home: Medicines Take iygo-uqs-vmsiwqq and prescription medicines only as told by your health care provider. Ask your health care provider if the medicine prescribed to you requires you to avoid driving or using machinery. Lifestyle Do not use any products that contain nicotine or tobacco, such as cigarettes, e- cigarettes, and chewing tobacco. If you need help quitting, ask your health care provider. Do not drink alcohol. Get 7 9 hours of sleep each night, or the amount of sleep recommended by your health care provider. Find ways to manage stress, such as meditation, deep breathing, or yoga. Maintain a healthy weight. If you need help losing weight, ask your health care provider. Exercise regularly. Aim for 150 minutes of moderate-intensity exercise, such as walking, biking, oryoga, or 75 minutes of vigorous exercise each week. Vigorous exercise includes running, circuit training, and swimming. General instructions Keep a journal to find out what triggers your migraines so you can avoid these triggers. For example, write down: ?What you eat and drink. ?How much sleep you get. ?Any change to your diet or medicines. Lie down in a dark, quiet room when you have a migraine. Try placing a cool towel over your head when you have a migraine. Keep lights dim, if bright lights bother you or make your migraines worse. Keep all follow-up visits as told by your health care provider. This is important. Where to find more information Coalition for Headache and Migraine Patients (CHAMP): headachemigraine.org [place] [employer]: americanmigrainefoundation.org National Headache Foundation: headaches.org Contact a health care provider if: Your pain does not improve, even with medicine. Your migraines continue to return, even with medicine. Get help right away if: Your migraine becomes severe and medicine does not help. You have a stiff neck and fever. You have a loss of vision. You have muscle weakness or loss of muscle control. You start losing your balance, or you have trouble walking. You feel like you may faint, or you faint. You start having sudden and unexpected, severe headaches. You have a seizure. Summary Migraine headaches are usually stronger and more sudden than other headaches. Migraines are characterized by an intense pulsing, throbbing pain that is usually only present on one side of the head. Migraines that keep coming back are called recurrent migraines. A migraine is called a chronic migraine if it happens 15 days in a month for more than 3 months. Certain things may trigger migraines, such as lack of sleep or too much sleep, smoking, certain foods, alcohol, stress, and certain medicines. Your treatment plan may include medicines, lifestyle changes, and behavior therapy. This information is not intended to replace advice given to you by your health care provider. Make sure you discuss any questions you have with your health care provider. Document Revised: 03/31/2020 Document Reviewed: 03/31/2020 [employer] Patient Education 2022 [facility]. Follow Up Care 08/26/2023 09:12:23 With:KATLIN FERNANDEZ Address: [address] [place], [place] [id number] [facility] (1) When:08/29/2023 11:03:51 [facility]06-30-2024 NoteED Patient Education Note Neurology Chronic Migraine Headache A migraine is a type of headache that is usually stronger and more sudden than other headaches. Migraines are characterized by an intense pulsing, throbbing pain that is usually only present on one side of the head. Migraine pain usually gets worse with activity. Migraines can cause nausea, vomiting, sensitivity to light and sound, and vision changes. Migrainesthat keep coming back are called recurrent migraines. A migraine is called a chronic migraine if ithappens at least 15 days in a month for more than 3 months. Talk with your health care provider about what things may bring on (trigger) your migraines. What are the causes? The exact cause of this condition is not known. However, a migraine may be caused when nerves in the brain become irritated and release chemicals that cause inflammation of blood vessels. The inflammation of the blood vessels causes pain. Migraines may be triggered or caused by: ? Smoking. ? Certain foods and drinks, such as: ? Aged cheese. ? Chocolate. ? Alcohol. ? Caffeine. ? Foods or drinks that contain nitrates, glutamate, aspartame, MSG, or tyramine. ? Medicines, such as control pills or some blood pressure medicines. Other things that may trigger a migraine include: ? Menstruation. ? Emotional stress. ? Lack of sleep or too much sleep. ? Tiredness (fatigue). ? Bright lights or loud noises. ? Odors. ? Weather changes and high altitude. What increases the risk? The following factors may make you more likely to experience chronic migraine: ? Having migraines or a family history of migraines. ? Having a mental health condition, such as depression or anxiety. ? Having to take a lot of pain medicine. ? Having sleep problems. ? Having heart disease, diabetes, or obesity. What are the signs or symptoms? Symptoms of a migraine vary for each person and may include: ? Pulsating or throbbing pain. ? Pain that is usually only present on one side of the head. In some cases, the pain may be on bothsides of the head or around the head or neck. ? Severe pain that prevents you from doing daily activities. ? Pain that gets worse with physical activity. ? Nausea, vomiting, or both. ? Pain with exposure to bright lights, loud noises, or activity. ? General sensitivity to bright lights, loud noises, or smells. ? Dizziness. A sign that a migraine is becoming chronic is an increasing number of migraine episodes. It is considered chronic if the migraine happens at least 15 days in a month for more than 3 months. How is this diagnosed? This condition is often diagnosed based on: ? Your symptoms and medical history. ? A physical exam. You may also have tests, including: ? A CT scan or an MRI of your brain. These imaging tests cannot diagnose migraines, but they can help to rule out other causes of headaches. ? Taking fluid from the spine (lumbar puncture) and analyzing it (cerebrospinal fluid analysis, or CSF analysis). ? Blood tests. How is this treated? This condition is treated with: ? Medicines. These help to: ? Lessen pain and nausea. ? Prevent migraines. ? Lifestyle changes, such as changes to your diet or sleeping patterns. ? Behavior therapy. This may include: ? Relaxation training. ? Biofeedback. This is a treatment that teaches you to relax and use your brain to lower your heartrate and control your breathing. ? Cognitive behavioral therapy (CBT). This is a form of talk therapy. This therapy helps you set goals and follow up on the changes that you make. ? Acupuncture. ? Using a device that provides electrical stimulation to your nerves, which can relieve pain (neuromodulation therapy). ? Surgery, if the other treatments are not working. Follow these instructions at home: Medicines ? Take dflq-bzu-oalbnkx and prescription medicines only as told by your health care provider. ? Ask your health care provider if the medicine prescribed to you requires you to avoid driving or using machinery. Lifestyle ? Do not use any products that contain nicotine or tobacco, such as cigarettes, e-cigarettes, and chewing tobacco. If you need help quitting, ask your health care provider. ? Do not drink alcohol. ? Get 7?9 hours of sleep each night, or the amount of sleep recommended by your health care provider. ? Find ways to manage stress, such as meditation, deep breathing, or yoga. ? Maintain a healthy weight. If you need help losing weight, ask your health care provider. ? Exercise regularly. Aim for 150 minutes of moderate-intensity exercise, such as walking, biking, or yoga, or 75 minutes of vigorous exercise each week. Vigorous exercise includes running, circuit training, and swimming. General instructions ? Keep a journal to find out what triggers your migraines so you can avoid these triggers. For example, write d (more content not included)...[facility]02-09-2024 Hospital Discharge instructions Additional Instructions Ice to sore areas Take the ketorolac every 6 hours for pain take with food You can still take pbmw-dgj-irvtyff Tylenol every 4 hours Take tizanidine 3 times a day as needed May apply 1-2 lidocaine patches over sorest areas daily Follow-up with your family doctor Return to the ER for worsening pain additional injuries or any other concerns [facility] Work Phone: [phone]) 175-469712-01-2023 Hospital Discharge instructions Patient Education 01/26/2023 17:23:16 Shoulder Pain Shoulder Pain Many things can cause shoulder pain, including: An injury to the shoulder. Overuse of the shoulder. Arthritis. The source of the pain can be: Inflammation. An injury to the shoulder joint. An injury to a tendon, ligament, or bone. Follow these instructions at home: Pay attention to changes in your symptoms. Let your health care provider know about them. Follow these instructions to relieve your pain. If you have a sling: Wear the sling as told by your health care provider. Remove it only as told by your health care provider. Loosen the sling if your fingers tingle, become numb, or turn cold and blue. Keep the sling clean. If the sling is not waterproof: ?Do not let it get wet. Remove it to shower or bathe. Move your arm as little as possible, but keep your hand moving to prevent swelling. Managing pain, stiffness, and swelling If directed, put ice on the painful area: ?Put ice in a plastic bag. ?Place a towel between your skin and the bag. ?Leave the ice on for 20 minutes, 2 3 times per day. Stop applying ice if it does not help with thepain. Squeeze a soft ball or a foam pad as much as possible. This helps to keep the shoulder from swelling. It also helps to strengthen the arm. General instructions Take ozpv-kek-wuqbsyk and prescription medicines only as told by your health care provider. Keep all follow-up visits as told by your health care provider. This is important. Contact a health care provider if: Your pain gets worse. Your pain is not relieved with medicines. New pain develops in your arm, hand, or fingers. Get help right away if: Your arm, hand, or fingers: ?Tingle. ?Become numb. ?Become swollen. ?Become painful. ?Turn white or blue. Summary Shoulder pain can be caused by an injury, overuse, or arthritis. Pay attention to changes in your symptoms. Let your health care provider know about them. This condition may be treated with a sling, ice, and pain medicines. Contact your health care provider if the pain gets worse or new pain develops. Get help right away if your arm, hand, or fingers tingle or become numb, swollen, or painful. Keep all follow-up visits as told by your health care provider. This is important. This information is not intended to replace advice given to you by your health care provider. Make sure you discuss any questions you have with your health care provider. Document Revised: 10/28/2021 Document Reviewed: 10/28/2021 [employer] Patient Education 2022 [facility]. Follow Up Care 01/26/2023 16:23:01 With:KATLIN FERNANDEZ Address: [place], [place] Business (1) When:01/29/2023 16:50:01 [facility]12-01-2023 Evaluation + Plan noteExtracted from: Title:ED Note Author:Jax Lassiter PA-C te:01/26/23 Right shoulder pain (M25.511 : Pain in right shoulder) Orders: acetaminophen-oxycodone, 1 tab(s), Tab, Oral, Once, Stop date 01/26/23 17:13:00 EST, STAT, Start date 01/26/23 17:13:00 EST ketorolac, 60 mg = 2 mL, Injection, IntraMuscular, Once, Stop date 01/26/23 16:43:00 EST, STAT, Start date 01/26/23 16:43:00 EST, 01/26/23 16:43:00 EST [facility]11-26-2023 Hospital Discharge instructions Patient Education 01/21/2023 16:21:41 Shoulder Pain, Unmn-bx-Hkwh Shoulder Pain Many things can cause shoulder pain, including: An injury. Moving the shoulder in the same way again and again (overuse). Joint pain (arthritis). Pain can come from: Swelling and irritation (inflammation) of any part of the shoulder. An injury to the shoulder joint. An injury to: ?Tissues that connect muscle to bone (tendons). ?Tissues that connect bones to each other (ligaments). ?Bones. Follow these instructions at home: Watch for changes in your symptoms. Let your doctor know about them. Follow these instructions to help with your pain. If you have a sling: Wear the sling as told by your doctor. Remove it only as told by your doctor. Loosen the sling if your fingers: ?Tingle. ?Become numb. ?Turn cold and blue. Keep the sling clean. If the sling is not waterproof: ?Do not let it get wet. ?Take the sling off when you shower or bathe. Managing pain, stiffness, and swelling If told, put ice on the painful area: ? Put ice in a plastic bag. ?Place a towel between your skin and the bag. ?Leave the ice on for 20 minutes, 2 3 times a day. Stop putting ice on if it does not help with thepain. Squeeze a soft ball or a foam pad as much as possible. This prevents swelling in the shoulder. It also helps to strengthen the arm. General instructions Take aspy-ohx-mdhwaeu and prescription medicines only as told by your doctor. Keep all follow-up visits as told by your doctor. This is important. Contact a doctor if: Your pain gets worse. Medicine does not help your pain. You have new pain in your arm, hand, or fingers. Get help right away if: Your arm, hand, or fingers: ?Tingle. ?Are numb. ?Are swollen. ?Are painful. ?Turn white or blue. Summary Shoulder pain can be caused by many things. These include injury, moving the shoulder in the same away again and again, and joint pain. Watch for changes in your symptoms. Let your doctor know about them. This condition may be treated with a sling, ice, and pain medicine. Contact your doctor if the pain gets worse or you have new pain. Get help right away if your arm, hand, or fingers tingle or get numb, swollen, or painful. Keep all follow-up visits as told by your doctor. This is important. This information is not intended to replace advice given to you by your health care provider. Make sure you discuss any questions you have with your health care provider. Document Revised: 10/28/2021 Document Reviewed: 10/28/2021 [employer] Patient Education 2022 [facility]. Follow Up Care 01/21/2023 13:25:00 With:Roya Rosario DO, ORT Address: [address] [place], [place] [id number]- When:01/24/2023 [facility]09-15-2023 Evaluation note* Encounter Date Diagnosis Assessment Notes Treatment Notes Treatment Clinical Notes Oct, Asthma exacerbation (ICD-10 - J45.901) Oct, Asthma (ICD-10 - J45.909) [facility] Other 07-01-2023 Hospital Discharge instructions Patient Education 08/25/2022 22:12:31 Nausea and Vomiting, Adult Nausea and Vomiting, Adult Nausea is the feeling that you have an upset stomach or that you are about to vomit. As nausea getsworse, it can lead to vomiting. Vomiting is when stomach contents forcefully come out of your mouthas a result of nausea. Vomiting can make you feel weak and cause you to become dehydrated. Dehydration can make you feel tired and thirsty, cause you to have a dry mouth, and decrease how often you urinate. Older adults and people with other diseases or a weak disease-fighting system (immune system) are at higher risk for dehydration. It is important to treat your nausea and vomiting as told by your health care provider. Follow these instructions at home: Watch your symptoms for any changes. Tell your health care provider about them. Eating and drinking Take an oral rehydration solution (ORS). This is a drink that is sold at pharmacies and retail stores. Drink clear fluids slowly and in small amounts as you are able. Clear fluids include water, ice chips, low-calorie sports drinks, and fruit juice that has water added (diluted fruit juice). Eat bland, bkcb-hg-anbyjq foods in small amounts as you are able. These foods include bananas, applesauce, rice, lean meats, toast, and crackers. Avoid fluids that contain a lot of sugar or caffeine, such as energy drinks, sports drinks, and soda. Avoid alcohol. Avoid spicy or fatty foods. General instructions Take dese-irg-fsbsrsq and prescription medicines only as told by your health care provider. Drink enough fluid to keep your urine pale yellow. Wash your hands often using soap and water for at least 20 seconds. If soap and water are not available, use hand refinery operator coking. Make sure that everyone in your household washes their hands well and often. Rest at home while you recover. Watch your condition for any changes. Take slow and deep breaths when you feel nauseous. Keep all follow-up visits. This is important. Contact a health care provider if: Your symptoms get worse. You have new symptoms. You have a fever. You cannot drink fluids without vomiting. Your nausea does not go away after 2 days. You feel light-headed or dizzy. You have a headache. You have muscle cramps. You have a rash. You have pain while urinating. Get help right away if: You have pain in your chest, neck, arm, or jaw. You feel extremely weak or you faint. You have persistent vomiting. You have vomit that is bright red or looks like black coffee grounds. You have bloody or black stools (feces) or stools that look like tar. You have a severe headache, a stiff neck, or both. You have severe pain, cramping, or bloating in your abdomen. You have difficulty breathing, or you are breathing very quickly. Your heart is beating very quickly. Your skin feels cold and clammy. You feel confused. You have signs of dehydration, such as: ?Dark urine, very little urine, or no urine. ?Cracked lips. ?Dry mouth. ?Sunken eyes. ?Sleepiness. ?Weakness. These symptoms may be an emergency. Get help right away. Call 911. Do not wait to see if the symptoms will go away. Do not drive yourself to the hospital. Summary Nausea is the feeling that you have an upset stomach or that you are about to vomit. As nausea getsworse, it can lead to vomiting. Vomiting can make you feel weak and cause you to become dehydrated. Follow instructions from your health care provider about eating and drinking to prevent dehydration. Take uxqm-hgx-lxscyux and prescription medicines only as told by your health care provider. Contact your health care provider if your symptoms get worse, or you have new symptoms. Keep all follow-up visits. This is important. This information is not intended to replace advice given to you by your health care provider. Make sure you discuss any questions you have with your health care provider. Document Revised: 08/19/2021 Document Reviewed: 08/19/2021 [employer] Patient Education 2022 [facility]. Follow Up Care 08/25/2022 17:16:58 With:KATLIN FERNANDEZ Address: [place], [place] Business (1) When:08/28/2022 21:41:55 [facility]06-30-2023 Evaluation + Plan noteExtracted from: Title:ED Note Author:Curt Yanes DO Date :08/25/22 N&V (nausea and vomiting) (R 11.2: Nausea with vomiting, unspecified) Orders: ketorolac, 15 mg = 1 mL, Injection, IV Push, Once, Stop date 08/25/22 21:17:00 EDT, STAT, Start date 08/25/22 21:17:00 EDT, 08/25/22 21:17:00 EDT Lactated Ringers Injection, 1,000 mL, Soln-IV, IV, Once, Stop date 08/25/22 20:04:00 EDT, STAT, Start date 08/25/22 20:04:00 EDT, mL/hr, Infuse over 61, minute(s) ondansetron, 4 mg = 1 tab(s), Oral, q8hr, PRN Nausea/Vomiting, # 20 tab(s), Refills(s) 0, Pharmacy: [facility] #[id number], 149, cm, 08/25/22 17:36:00 EDT, Height/Length Dosing, 70, kg, 08/25/22 17:36:00 EDT, Weight Dosing ondansetron, 4 mg = 2 mL, Injection, IV Push, Once, Stop date 08/25/22 20:04:00 EDT, STAT, Start date 08/25/22 20:04:00 EDT, 08/25/22 20:04:00 EDT promethazine, 12.5 mg = 0.5 mL, Injection, IV Push, Once, Stop date 08/25/22 21:02:00 EDT, STAT, Start date 08/25/22 21:02:00 EDT, 08/25/22 21:02:00 EDT promethazine, 12.5 mg = 1 supp, Rectal, q8hr, PRN as needed for nausea/vomiting, second line, # 6 EA, Refills(s) 0, Pharmacy: [id number], 149, cm, 08/25/22 17:36:00 EDT, Height/Length Dosing, 70, kg, 08/25/22 17:36:00 EDT, Weight Dosing Future Scheduled Tests Radiology* XR Hand 3+ Views Left 10/24/21 [facility]06-14-2023 Evaluation note* Encounter Date Diagnosis Assessment Notes Treatment Notes Treatment Clinical Notes Jul, Depression with anxiety (ICD-10 - F41.8) [facility] Other 05-08-2023 Evaluation note* Encounter Date Diagnosis Assessment Notes Treatment Notes Treatment Clinical Notes June, Gastroesophageal reflux disease, esophagitis presence not specified (ICD-10 - K21.9) Will switch PPI as above, patient believes she does better with omeprazole. We again had a lengthy conversation about her symptoms and suspicion of cannabinoid hyperemesis syndrome. She has cut back on marijuana slightly but is still using pretty consistently so unable to tell if this would help. She is going to try again to stop. She has already had workup with GI and is established with dr ponce. June, Other Patient to foll ow up with ortho as noted in HPI for orthopedic concerns. [facility] Other 05-03-2023 Hospital Discharge instructions Patient Education 06/28/2022 19:16:33 Knee Sprain, Adult Knee Sprain, Adult A knee sprain is a stretch or tear in a knee ligament. Knee ligaments are tissues that connect bones in the knee to each other. What are the causes? This condition often results from: A fall. An injury to the knee. What are the signs or symptoms? Symptoms of this condition include: Trouble straightening or bending the leg. Swelling in the knee. Bruising around the knee. Tenderness or pain in the knee. Muscle spasms around the knee. How is this diagnosed? This condition may be diagnosed based on: A physical exam. A history of what happened just before you started to have symptoms. Tests, including: ?An X-ray. This may be done to make sure no bones are broken. ?An MRI. This may be done to check if the ligament is torn. ?Stress testing of the knee. This may be done to check ligament damage. How is this treated? Treatment for this condition may involve: Keeping the knee still (immobilized) with a cast, brace, or splint. Applying ice to the knee. This helps with pain and swelling. Raising (elevating) the knee above the level of your heart when you are resting. This helps with pain and swelling. Taking medicine for pain. Doing exercises to prevent or limit permanent weakness or stiffness in your knee. Having surgery to reconnect the ligament to the bone or to reconstruct it. This may be needed if the ligament is completely torn. Follow these instructions at home: If you have a splint or brace: Wear it as told by your health care provider. Remove it only as told by your health care provider. Check the skin around it every day. Tell your health care provider about any concerns. Loosen it if your toes tingle, become numb, or turn cold and blue. Keep it clean and dry. If you have a cast: Do not stick anything inside it to scratch your skin. Doing that increases your risk of infection. Check the skin around it every day. Tell your health care provider about any concerns. You may put lotion on dry skin around the edges of the cast. Do not put lotion on the skin underneath the cast. Keep it clean and dry. Bathing If you have a splint, brace, or cast that is not waterproof: Do not let it get wet. Cover it with a watertight covering when you take a bath or a shower. Managing pain, stiffness, and swelling If directed, put ice on the injured area. To do this: ?If you have a removable splint or brace, remove it as told by your health care provider. ?Put ice in a plastic bag. ?Place a towel between your skin and the bag or between your cast and the bag. ?Leave the ice on for 20 minutes, 2 3 times a day. Move your toes often to reduce stiffness and swelling. Elevate the injured area above the level of your heart while you are sitting or lying down. General instructions Take ljgi-taa-piefzii and prescription medicines only as told by your health care provider. Do not use any products that contain nicotine or tobacco, such as cigarettes, e- cigarettes, and chewing tobacco. These can delay healing. If you need help quitting, ask your health care provider. Do exercises as told by your health care provider. Keep all follow-up visits as told by your health care provider. This is important. Contact a health care provider if: You have pain that gets worse. The cast, brace, or splint does not fit right. The cast, brace, or splint gets damaged. Get help right away if: You cannot use your injured knee to support any of your body weight (cannot bear weight). You cannot move the injured joint. You cannot walk more than a few steps without pain or without your knee buckling. You have significant pain, swelling, or numbness in the leg below the cast, brace, or splint. Your foot or toes are numb, cold, or blue after loosening your splint or brace. Summary A knee sprain is a stretch or tear in a knee ligament that usually occurs as the result of a fall or injury. Treatment may involve immobilizing the knee with a cast, splint, or brace and then doing exercises. If the ligament is completely torn, it may require surgery to repair or replace the injured ligament. This information is not intended to replace advice given to you by your health care provider. Make sure you discuss any questions you have with your health care provider. Document Revised: 01/02/2020 Document Reviewed: 01/02/2020 [employer] Patient Education 2022 [facility]. Follow Up Care 06/28/2022 17:33:35 With:KATLIN FERNANDEZ Address: [place] Business (1) When:07/01/2022 19:16:17 Comments:Call the office of your primary care doctor to arrange for follow-up within the above-stated timeframe. Follow-up with your primary care doctor about this ED visit. You should review your labs, imaging, and diagnoses from this ED visit with your primary care physician. If you were prescribed medications you should discuss possible side-effects and drug interactions with your pharmacist. Call 911 or go to the nearest Emergency Department if you develop any new or worsening symptoms. [facility]04-27-2023 Hospital Discharge instructions Patient Education 06/22/2022 15:58:39 Crutch Use, Adult, Jgku-tj-Hhzp Crutch Use, Adult Crutches are used to take weight off of one of your legs or feet when you stand or walk. You may need crutches to help you heal after an injury or procedure. It is important to use crutches that fit right. Your crutches fit right if: You can fit two or three fingers between your armpit and the crutch. You use your hands, not your armpits, to hold yourself up. It is important that a doctor has seen you use crutches the right way before you use them at home. What are the risks? Using crutches the wrong way can hurt your shoulders, arms, back, armpits, wrists, and hands. To avoid this: Make sure your crutches fit right. Do not put pressure on your armpits when using the crutches. While using crutches, you also have a higher risk of falling. To avoid this: Move objects away from the floor or area where you walk when possible. Get help as needed. Keep walkways well lit. Use a backpack to carry items. How to use your crutches How you use your crutches will depend on why you need them. Your doctor may tell you not to supportyour body weight (bear weight) on your hurt leg. Or your doctor may let you put some, but not all, of your weight on the hurt leg. Follow instructions from your doctor about putting weight on your leg. Do not put weight on your leg in an amount that causes pain. Walking 1.Stand on your good leg and lift both crutches at the same time. 2.Place the crutches one step-length in front of you. Keep your weight over the hand horse trader. 3.Bring the good leg forward to meet the crutches or to land a little bit ahead of them. 4.Repeat. Going up steps If there is no handrail: 1.Walk up to steps and put weight on hand horse trader to step up. 2.Step up with your good leg. 3.Step up with the crutches and your hurt leg. 4.Repeat. If there is a handrail: 1.Hold both crutches in one hand. 2.Place your other hand on the handrail. 3.Put your weight on your arms and lift your good leg up to the step. 4.Bring the crutches and the hurt leg up to that step. 5.Repeat. If you do not feel steady on steps, you can go up steps on your butt. 1.Sit on the lowest step. Have your hurt leg out in front. Hold both crutches flat on the stairs in one hand. 2.Scoot your butt up to the next step. Use your free hand and your good leg to help you do this. Going down steps If there is no handrail: 1.Step down with your hurt leg and crutches. Keep the crutch tips in the center of the step. Do notput crutch tips close to the edge of the step. 2.Step down with your good leg. 3.Repeat. If there is a handrail: 1.Place one hand on the handrail. 2.Hold both crutches with your free hand. 3.Lower your hurt leg and crutches to the step below you. Keep the crutch tips in the center of thestep. Do not put the crutch tips close to the edge of the step. 4.Lower your good leg to the next step. 5.Repeat. If you do not feel steady on steps, you can go down steps on your butt. 1.Sit on the highest step. Have your hurt leg out in front. Use your other hand to hold both crutches flat on the stairs. 2.Scoot your butt down to the next step. Use the free hand and your good leg to help you do this. Standing up Move to the edge of the seat. If there is an armrest: 1.Hold the hurt leg forward. 2.Grab the armrest with one hand. Use the other hand to grab the top of the crutches. 3.Use the armrest and your crutches to pull yourself up to stand. If there is no armrest: 1.Hold the hurt leg forward. 2.Hold on to the seat with one hand. Use the other hand to hold the top of the crutches. 3.Use the seat and your crutches to bring yourself up to stand. Sitting down Move back until your leg touches the edge of the seat. If there is an armrest: 1.Hold the hurt leg forward. 2.Grab the armrest with one hand. Use the other hand to grab the top of the crutches. 3.Slowly lower yourself to sit. If there is no armrest: 1.Hold the hurt leg forward. 2.Reach for and hold on to the seat with one hand. Use the other hand to hold on to the top of the crutches. 3.Slowly lower yourself to sit. Get help if: You feel unsteady using crutches. You have any new pain. You lose feeling (feel numb) or you have a tingling feeling. Your crutches do not fit. Get help right away if: You fall. Summary Crutches are used to take weight off of a leg or foot when you stand or walk. Make sure your crutches fit right, and do not put pressure on your armpits when using the crutches. Follow instructions from your doctor about putting weight on your hurt leg. This information is not intended to replace advice given to you by your health care provider. Make sure you discuss any questions you have with your health care provider. Document Revised: 09/03/2019 Document Reviewed: 09/03/2019 [employer] Patient Education 2022 [employer]. 06/22/2022 15:58:39 Contusion, Rnpt-wi-Eezp Contusion A contusion is a deep bruise. This is a result of an injury that causes bleeding under the skin. Symptoms of bruising include pain, swelling, and discolored skin. The skin may turn blue, purple, or yellow. Follow these instructions at home: Managing pain, stiffness, and swelling You may use RICE. This stands for: Resting. Icing. Compression, or putting pressure. Elevating, or raising the injured area. To follow this method, do these actions: Rest the injured area. If told, put ice on the injured area. ?Put ice in a plastic bag. ?Place a towel between your skin and the bag. ?Leave the ice on for 20 minutes, 2 3 times per day. If told, put light pressure (compression) on the injured area using an elastic bandage. Make sure the bandage is not too tight. If the area tingles or becomes numb, remove it and put it back on as told by your doctor. If possible, raise (elevate) the injured area above the level of your heart while you are sitting or lying down. General instructions Take gchy-wjk-zacnjst and prescription medicines only as told by your doctor. Keep all follow-up visits as told by your doctor. This is important. Contact a doctor if: Your symptoms do not get better after several days of treatment. Your symptoms get worse. You have trouble moving the injured area. Get help right away if: You have very bad pain. You have a loss of feeling (numbness) in a hand or foot. Your hand or foot turns pale or cold. Summary A contusion is a deep bruise. This is a result of an injury that causes bleeding under the skin. Symptoms of bruising include pain, swelling, and discolored skin. The skin may turn blue, purple, or yellow. This condition is treated with rest, ice, compression, and elevation. This is also called RICE. Youmay be given hjjh-iht-adoaytd medicines for pain. Contact a doctor if you do not feel better, or you feel worse. Get help right away if you have verybad pain, have lost feeling in a hand or foot, or the area turns pale or cold. This information is not intended to replace advice given to you by your health care provider. Make sure you discuss any questions you have with your health care provider. Document Revised: 12/08/2021 Document Reviewed: 12/08/2021 [employer] Patient Education 2022 [employer]. Follow Up Care 06/22/2022 11:39:29 With:KATLIN FERNANDEZ Address: [address] Business ([address]) When:06/25/2022 15:58:10 only if needed [facility]04-27-2023 Evaluation + Plan noteExtracted from: Title:ED Note Author:Juan Antonio Hooper MD Date: 1. Contusion of left lower e xtremity (S80.12XA: Contusion of left lower leg, initial encounter) Orders: acetaminophen, 650 mg = 2 tab(s), Tab, Oral, Once, Stop date 06/22/22 12:45:00 EDT, STAT, Start date 06/22/22 12:45:00 EDT, 06/22/22 12:45:00 EDT acetaminophen-oxycodone, 1 tab(s), Oral, q6hr, 7 tab(s), Refill(s) 0 naproxen, Tab, Misc, Once, Stop date 06/22/22 12:50:59 EDT, Physician Stop, 06/22/22 12:50:59 EDT naproxen, 375 mg = 1 tab(s), Oral, q12hr, # 14 tab(s), Refills(s) 0, [facility]acy: [id number], 149, cm, 06/22/22 11:45:00 EDT, Height/Length Dosing, 70, kg, 06/22/22 11:45:00 EDT, Weight Dosing tramadol, 50 mg = 1 tab(s), Tab, Oral, Once, Stop date 06/22/22 14:46:00 EDT, STAT, Start date 06/22/22 14:46:00 EDT, 06/22/22 14:46:00 EDT XR Femur Min 2 Views Left XR Foot 3+ Views Left XR Tib/Fib Left 2 View Future Scheduled Tests Radiology* XR Hand 3+ Views Left 10/24/21 [facility]04-04-2023 Evaluation note* Encounter Date Diagnosis Assessment Notes Treatment Notes Treatment Clinical Notes May, Depression with anxiety (ICD-10 - F41.8) Patient states the zoloft helps but she only remembers to take it sometimes. May, Musculoskeletal back pain (ICD-10 - M54.9) Patient to cont tylenol PRN, will give toradol injection in office today for antiinflammatory. Rest, gentle stretching. Recheck/consider xrays if not improving. No bruising noted on exam. May, Gastroesophageal reflux disease, esophagitis presence not specified (ICD-10 - K21.9) Patient complains of frequent nausea. Of note, she has not been taking her PPI. She also smokes marijuana daily for long period of time so possibly could be cannabinoid hyperemesis syndrome. She is not interested in stopping marijuana. Advised to resume her PPI. May, Noncompliance (ICD-1 0 - Z91.199) Lengthy discussion with patient in office today. She told nursing staff she was taking all her meds but on closer questioning she is really not taking anything consistently at all. 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 Care coord Marry will reach out to patient regarding starting pill pack to help. May, Seizure disorder (ICD-10 - G40.909) Patient states she only takes her oxtellar when she feels a seizure coming on. She is aware this is not the correct way to take it [facility] Other 03-07-2023 Hospital Discharge instructions Patient Education 05/02/2022 12:39:00 Rib Contusion Rib Contusion A rib contusion is a deep bruise on your rib area. Contusions are the result of a blunt trauma thatcauses bleeding and injury to the tissues under the skin. A rib contusion may involve bruising of the ribs and of the skin and muscles in the area. The skin over the contusion may turn blue, purple, or yellow. Minor injuries will give you a painless contusion. More severe contusions may stay painful and swollen for a few weeks. What are the causes? This condition is usually caused by a blow, trauma, or direct force to an area of the body. This often occurs while playing contact sports. What are the signs or symptoms? Symptoms of this condition include: Swelling and redness of the injured area. Discoloration of the injured area. Tenderness and soreness of the injured area. Pain with or without movement. How is this diagnosed? This condition may be diagnosed based on: Your symptoms and medical history. A physical exam. Imaging tests such as an X-ray, CT scan, or MRI to determine if there were internal injuries or broken bones (fractures). How is this treated? This condition may be treated with: Rest. This is often the best treatment for a rib contusion. Icing. This reduces swelling and inflammation. Deep-breathing exercises. These may be recommended to reduce the risk for lung collapse and pneumonia. Medicines. Oxfs-ygk-dgawfsn or prescription medicines may be given to control pain. Injection of a numbing medicine around the nerve near your injury (nerve block). Follow these instructions at home: Medicines Take tehy-dez-ciqldeu and prescription medicines only as told by your health care provider. Do not drive or use heavy machinery while taking prescription pain medicine. If you are taking prescription pain medicine, take actions to prevent or treat constipation. Your health care provider may recommend that you: ?Drink enough fluid to keep your urine pale yellow. ?Eat foods that are high in fiber, such as fresh fruits and vegetables, whole grains, and beans. ?Limit foods that are high in fat and processed sugars, such as fried or sweet foods. ?Take an ygvx-jvx-zorosve or prescription medicine for constipation. Managing pain, stiffness, and swelling If directed, put ice on the injured area: ?Put ice in a plastic bag. ?Place a towel between your skin and the bag. ?Leave the ice on for 20 minutes, 2 3 times a day. Rest the injured area. Avoid strenuous activity and any activities or movements that cause pain. Becareful during activities and avoid bumping the injured area. Do not lift anything that is heavier than 5 lb (2.3 kg), or the limit that you are told, until yourhealth care provider says that it is safe. General instructions Do not use any products that contain nicotine or tobacco, such as cigarettes and e-cigarettes. These can delay healing. If you need help quitting, ask your health care provider. Do deep-breathing exercises as told by your health care provider. If you were given an incentive spirometer, use it every 1 2 hours while you are awake, or as recommended by your health care provider. This device measures how well you are filling your lungs with each breath. Keep all follow-up visits as told by your health care provider. This is important. Contact a health care provider if you have: Increased bruising or swelling. Pain that is not controlled with treatment. A fever. Get help right away if you: Have difficulty breathing or shortness of breath. Develop a continual cough or you cough up thick or bloody sputum. Feel nauseous or you vomit. Have pain in your abdomen. Summary A rib contusion is a deep bruise on your rib area. Contusions are the result of a blunt trauma thatcauses bleeding and injury to the tissues under the skin. The skin overlying the contusion may turn blue, purple, or yellow. Minor injuries may give you a painless contusion. More severe contusions may stay painful and swollen for a few weeks. Rest the injured area. Avoid strenuous activity and any activities or movements that cause pain. This information is not intended to replace advice given to you by your health care provider. Make sure you discuss any questions you have with your health care provider. Document Released: 11/07/2001 Document Revised: 03/13/2018 Document Reviewed: 03/13/2018 [employer] Patient Education 2020 [employer]. Follow Up Care 05/02/2022 11:08:23 With:KATLIN FERNANDEZ Address: [place], [place] Business (1) When:05/05/2022 12:11:05 [facility]03-07-2023 Evaluation + Plan noteExtracted from: Title:ED Note Author:Jax Lassiter PA-C te:05/02/22 Fall from standing (W19.XXXA : Unspecified fall, initial encounter) Rib contusion (S20.219A: Contusion of unspecified front wall of thorax, initial encounter) Orders: acetaminophen-oxycodone, 1 tab(s), Tab, Oral, Once, Stop date 05/02/22 11:28:00 EST, STAT, Start date 05/02/22 11:28:00 EST XR Ribs Unilat 3 Views Left w/ PA Chest Future Scheduled Tests Laboratory* Fecal WBC Lactoferrin 06/15/21 * Giardia lamblia, Direct Detection EIA 06/15/21 * O & P Exam, Routine 06/15/21 * Clostridium difficile by PCR 06/15/21 * Enteric Panel by PCR 06/15/21 Radiology* XR Hand 3+ Views Left 10/24/21 [facility]02-14-2023 Evaluation note* Encounter Date Diagnosis Assessment Notes Treatment Notes Treatment Clinical Notes Mar, Depression with anxiety (ICD-10 - F41.8) Patient was hospitalized for 1 week in [place], she was started on zoloft and trazodone. She feels these are helping and would like to continue. She declined their recommendation to see psychiatrist for follow up, is not seeing counselor, declines referral. Will cont zoloft and see back in 3 months. Mar, Acute bronchitis (ICD-10 - J20.9) Mar, Sore throat (ICD-10 - J02.9) Mar, Cough (ICD-10 - R05.9) Mar, Asthma (ICD-10 - J45.909) Again reiterated to patient that she is to stay on her breo continuously to avoid flare ups/bronchitis. Mar, Insomnia (ICD-10 - G47.00) Discussed healthy sleep habits. Mar, History of diabetes mellitus (ICD-10 - Z86.39) Discussed with patient that she does not have diabetes or prediabetes based on her lab results here both today and in recent past. will cont to monitor. [facility] Other 01-13-2023 Evaluation + Plan noteExtracted from: Title:ED Note Author:Urban Verdin PA-C Pete e:03/10/22 Suicidal ideation (R45.851: Suicidal ideations) Orders: Automated Diff CBC w/ Auto Diff Communication Order Comprehensive Metabolic Panel Consult to Mental Health Drug Screen Urine ECG 12 Lead Adult eGFR Ethanol Level Future Scheduled Tests Laboratory* Fecal WBC Lactoferrin 06/15/21 * Giardia lamblia, Direct Detection EIA 06/15/21 * O & P Exam, Routine 06/15/21 * Clostridium difficile by PCR 06/15/21 * Enteric Panel by PCR 06/15/21 Radiology* XR Hand 3+ Views Left 10/24/21 [facility]11-30-2022 Evaluation + Plan noteExtracted from: Title:ED Note Author:Bret Eckert te:01/25/22 1. Nausea and vomiting (R11. 2: Nausea with vomiting, unspecified) 2. Acute asthma exacerbation (J45.901: Unspecified asthma with (acute) exacerbation) Orders: albuterol-ipratropium, 3 mL, Soln-Inh, Inhalation, Once, Stop date 01/25/22 0:51:00 EST, STAT, Start date 01/25/22 0:51:00 EST predniSONE, 40 mg = 2 tab(s), Oral, Daily, X 5 day(s), # 10 tab(s), Refills(s) 0, [facility]acy: [facility] #[id number], 150, cm, 01/25/22 0:07:00 EST, Height/Length Dosing, 96, kg, 01/25/22 0:07:00 EST, Weight Dosing promethazine, 12.5 mg = 0.5 mL, Injection, IV Push, Once, Stop date 01/25/22 0:51:00 EST, STAT, Start date 01/25/22 0:51:00 EST, 01/25/22 0:51:00 EST promethazine, 25 mg = 1 tab(s), Oral, q6hr, PRN as needed for nausea/vomiting, # 12 tab(s), Refills(s) 0, Pharmacy: [facility][id number], 150, cm, 01/25/22 0:07:00 EST, Height/Length Dosing, 96, kg, 01/25/22 0:07:00 EST, Weight Dosing Sodium Chloride 0.9% intravenous solution, 1,000 mL, Soln-IV, IV, Once, Stop date 01/25/22 0:51:00 EST, STAT, Start date 01/25/22 0:51:00 EST, mL/hr, Infuse over 61, minute(s) Sodium Chloride 0.9% intravenous solution, Soln-IV, Misc, Once, Stop date 01/25/22 0:59:36 EST, Physician Stop, 01/25/22 0:59:36 EST Automated Diff Basic Metabolic Panel Beta hCG Qual CBC w/ Auto Diff eGFR Hepatic Function Panel Lipase Level Magnesium Level UA With Cult Reflex XR Chest 2 Views Future Scheduled Tests Laboratory* Fecal WBC Lactoferrin 06/15/21 * Giardia lamblia, Direct Detection EIA 06/15/21 * O & P Exam, Routine 06/15/21 * Clostridium difficile by PCR 06/15/21 * Enteric Panel by PCR 06/15/21 Radiology* XR Hand 3+ Views Left 10/24/21 [facility]11-30-2022 Hospital Discharge instructions Patient Education 01/25/2022 02:47:12 Nausea and Vomiting, Adult Nausea and Vomiting, Adult Nausea is the feeling that you have an upset stomach or that you are about to vomit. Vomiting is when stomach contents are thrown up and out of the mouth as a result of nausea. Vomiting can make you feel weak and cause you to become dehydrated. Dehydration can make you feel tired and thirsty, cause you to have a dry mouth, and decrease how often you urinate. Older adults and people with other diseases or a weak disease-fighting system (immune system) are at higher risk for dehydration. It is important to treat your nausea and vomiting as told by your health care provider. Follow these instructions at home: Watch your symptoms for any changes. Tell your health care provider about them. Follow these instructions to care for yourself at home. Eating and drinking Take an oral rehydration solution (ORS). This is a drink that is sold at pharmacies and retail stores. Drink clear fluids slowly and in small amounts as you are able. Clear fluids include water, ice chips, low-calorie sports drinks, and fruit juice that has water added (diluted fruit juice). Eat bland, lkjo-lw-umparf foods in small amounts as you are able. These foods include bananas, applesauce, rice, lean meats, toast, and crackers. Avoid fluids that contain a lot of sugar or caffeine, such as energy drinks, sports drinks, and soda. Avoid alcohol. Avoid spicy or fatty foods. General instructions Take aodx-qjv-asnyrtv and prescription medicines only as told by your health care provider. Drink enough fluid to keep your urine pale yellow. Wash your hands often using soap and water. If soap and water are not available, use hand refinery operator coking. Make sure that all people in your household wash their hands well and often. Rest at home while you recover. Watch your condition for any changes. Breathe slowly and deeply when you feel nauseated. Keep all follow-up visits as told by your health care provider. This is important. Contact a health care provider if: Your symptoms get worse. You have new symptoms. You have a fever. You cannot drink fluids without vomiting. Your nausea does not go away after 2 days. You feel light-headed or dizzy. You have a headache. You have muscle cramps. You have a rash. You have pain while urinating. Get help right away if: You have pain in your chest, neck, arm, or jaw. You feel extremely weak or you faint. You have persistent vomiting. You have vomit that is bright red or looks like black coffee grounds. You have bloody or black stools or stools that look like tar. You have a severe headache, a stiff neck, or both. You have severe pain, cramping, or bloating in your abdomen. You have difficulty breathing, or you are breathing very quickly. Your heart is beating very quickly. Your skin feels cold and clammy. You feel confused. You have signs of dehydration, such as: ?Dark urine, very little urine, or no urine. ?Cracked lips. ?Dry mouth. ?Sunken eyes. ?Sleepiness. ?Weakness. These symptoms may represent a serious problem that is an emergency. Do not wait to see if the symptoms will go away. Get medical help right away. Call your local emergency services (911 in the [place] Do not drive yourself to the hospital. Summary Nausea is the feeling that you have an upset stomach or that you are about to vomit. As nausea getsworse, it can lead to vomiting. Vomiting can make you feel weak and cause you to become dehydrated. Follow instructions from your health care provider about eating and drinking to prevent dehydration. Take raom-ctk-kesizvv and prescription medicines only as told by your health care provider. Contact your health care provider if your symptoms get worse, or you have new symptoms. Keep all follow-up visits as told by your health care provider. This is important. This information is not intended to replace advice given to you by your health care provider. Make sure you discuss any questions you have with your health care provider. Document Released: 02/12/2006 Document Revised: 06/06/2019 Document Reviewed: 07/23/2018 [employer] Patient Education 2020 [employer]. 01/25/2022 02:47:12 Asthma Attack Asthma Attack Acute bronchospasm caused by asthma is also referred to as an asthma attack. Bronchospasm means that the air passages become narrowed or tight, which limits the amount of oxygen that can get into the lungs. The narrowing is caused by inflammation and tightening of the muscles in the air tubes (bronchi) in the lungs. Excessive mucus is also produced, which narrows the airways more. This can cause trouble breathing, coughing, and loud breathing (wheezing). What are the causes? Possible triggers include: Animal dander from the skin, hair, or feathers of animals. Dust mites contained in house dust. Cockroaches. Pollen from trees or grass. Mold. Cigarette or tobacco smoke. Air pollutants such as dust, household rn compliance, hair sprays, aerosol sprays, paint fumes, strong chemicals, or strong odors. Cold air or weather changes. Cold air may trigger inflammation. Winds increase molds and pollens inthe air. Strong emotions such as crying or laughing hard. Stress. Certain medicines, such as aspirin or beta-blockers. Sulfites in foods and drinks, such as dried fruits and wine. Infections or inflammatory conditions, such as a flu, a cold, pneumonia, or inflammation of the nasal membranes (rhinitis). Gastroesophageal reflux disease (GERD). GERD is a condition in which stomach acid backs up into your esophagus, which can irritate nearby airway structures. Exercise or activity that requires a lot of energy. What are the signs or symptoms? Symptoms of this condition include: Wheezing. This may sound like whistling while breathing. This may be more noticeable at night. Excessive coughing, particularly at night. Chest tightness or pain. Shortness of breath. Feeling like you cannot get enough air no matter how hard you try (air hunger). How is this diagnosed? This condition may be diagnosed based on: Your medical history. Your symptoms. A physical exam. Tests to check for other causes of your symptoms or other conditions that may have triggered your asthma attack. These tests may include: ?Chest X-ray. ?Blood tests. ?Specialized tests to assess lung function, such as breathing into a device that measures how much air you inhale and exhale (spirometry). How is this treated? The goal of treatment is to open the airways in your lungs and reduce inflammation. Most asthma attacks are treated with medicines that you inhale through a hand-held inhaler (metered dose inhaler, MDI) or a device that turns liquid medicine into a mist that you inhale (nebulizer). Medicines may include: Quick relief or rescue medicines that relax the muscles of the bronchi. These medicines include bronchodilators, such as albuterol. Controller medicines, such as inhaled corticosteroids. These are long-acting medicines that are used for daily asthma maintenance. If you have a moderate or severe asthma attack, you may be treated with steroid medicines by mouth or through an IV injection at the hospital. Steroid medicines reduce inflammation in your lungs. Depending on the severity of your attack, you may need oxygen therapy to help you breathe. If your asthma attack was caused by a bacterial infection, such as pneumonia, you will be given antibiotic medicines. Follow these instructions at home: Medicines Take pvjb-qki-uffqvha and prescription medicines only as told by your health care provider. Keep your medicines up-to-date and available. If you are more than 24 weeks and you are prescribed any new medicines, tell your flavoring maker about those medicines. If you were prescribed an antibiotic medicine, take it as told by your health care provider. Do notstop taking the antibiotic even if you start to feel better. Avoiding triggers Keep track of things that trigger your asthma attacks or cause you to have breathing problems, and avoid exposure to these triggers. Do not use any products that contain nicotine or tobacco, such as cigarettes and e-cigarettes. If you need help quitting, ask your health care provider. Avoid secondhand smoke. Avoid strong smells, such as perfumes, aerosols, and cleaning solvents. When pollen or air pollution is bad, keep windows closed and use an air conditioner or go to placeswith air conditioning. Asthma action plan Work with your health care provider to make a written plan for managing and treating your asthma attacks (asthma action plan). This plan should include: ?A list of your asthma triggers and how to avoid them. ?Information about when your medicines should be taken and when their dosage should be changed. ?Instructions about using a device called a peak flow meter to monitor your condition. A peak flow meter measures how well your lungs are working and measures how severe your asthma is at a given time. Your personal best is the highest peak flow rate you can reach when you feel good and have no asthma symptoms. General instructions Avoid excessive exercise or activity until your asthma attack resolves. Ask your health care provider what activities are safe for you and when you can return to your normal activities. Stay up to date on all vaccinations recommended by your health care provider, such as flu and pneumonia vaccines. Drink enough fluid to keep your urine clear or pale yellow. Staying hydrated helps keep mucus in your lungs thin so it can be coughed up easily. If you drink caffeine, do so in moderation. Do not use alcohol until you have recovered. Keep all follow-up visits as told by your health care provider. This is important. Asthma requires careful medical care, and you and your health care provider can work together to reduce the likelihood of future attacks. Contact a health care provider if: Your peak flow reading is still at 50 79% of your personal best after you have followed your actionplan for 1 hour. This is in the yellow zone, which means caution. You need to use a reliever medicine more than 2 3 times a week. Your medicines are causing side effects, such as: ?Rash. ?Itching. ?Swelling. ?Trouble breathing. Your symptoms do not improve after 48 hours. You cough up mucus (sputum) that is thicker than usual. You have a fever. You need to use your medicines much more frequently than normal. Get help right away if: Your peak flow reading is less than 50% of your personal best. This is in the red zone, which means danger. You have severe trouble breathing. You develop chest pain or discomfort. Your medicines no longer seem to be helping. You vomit. You cannot eat or drink without vomiting. You are coughing up yellow, green, brown, or bloody mucus. You have a fever and your symptoms suddenly get worse. You have trouble swallowing. You feel very tired, and breathing becomes tiring. Summary Acute bronchospasm caused by asthma is also referred to as an asthma attack. Bronchospasm is caused by narrowing or tightness in air passages, which causes shortness of breath,coughing, and loud breathing (wheezing). Many things can trigger an asthma attack, such as allergens, weather changes, exercise, smoke, and other fumes. Treatment for an asthma attack may include inhaled rescue medicines for immediate relief, as well as the use of maintenance therapy. Get help right away if you have worsening shortness of breath, chest pain, or fever, or if your home medicines are no longer helping with your symptoms. This information is not intended to replace advice given to you by your health care provider. Make sure you discuss any questions you have with your health care provider. Document Released: 05/30/2007 Document Revised: 06/03/2019 Document Reviewed: 03/16/2017 [employer] Patient Education 2019 [employer]. Follow Up Care 01/25/2022 00:01:17 With:KATLIN FERNANDEZ Address: [address] ([address]) When:01/28/2022 Comments:Return to the emergency room if your vomiting recurs, shortness of breath recurs or any new symptoms. [facility]11-14-2022 Hospital Discharge instructions Patient Education 01/09/2022 19:06:04 BMI for Adults BMI for Adults Body mass index (BMI) is a number that is calculated from a person's weight and height. BMI may help to estimate how much of a person's weight is composed of fat. BMI can help identify those who may be at higher risk for certain medical problems. How is BMI used with adults? BMI is used as a screening tool to identify possible weight problems. It is used to check whether aperson is obese, overweight, healthy weight, or underweight. How is BMI calculated? BMI measures your weight and compares it to your height. This can be done either in [place] or metric measurements. Note that charts are available to help you find your BMI quickly and easily without having to do these calculations yourself. To calculate your BMI in [place] measurements, your health care provider will: 1.Measure your weight in pounds (lb). 2.Multiply the number of pounds by 703. For example, for a person who weighs 180 lb, multiply that number by 703, which equals 126,540. 3.Measure your height in inches (in). Then multiply that number by itself to get a measurement called inches squared. For example, for a person who is 70 in tall, the inches squared measurement is 70 in x 70 in, which equals 4900 inches squared. 4.Divide the total from Step 2 (number of lb x 703) by the total from Step 3 (inches squared): 126,540 4900 = 25.8. This is your BMI. To calculate your BMI in metric measurements, your health care provider will: 1.Measure your weight in kilograms (kg). 2.Measure your height in meters (m). Then multiply that number by itself to get a measurement called meters squared. For example, for a person who is 1.75 m tall, the meters squared measurement is 1.75 m x 1.75 m, which is equal to 3.1 meters squared. 3.Divide the number of kilograms (your weight) by the meters squared number. In this example: 70 3.1 = 22.6. This is your BMI. How is BMI interpreted? To interpret your results, your health care provider will use BMI charts to identify whether you are underweight, normal weight, overweight, or obese. The following guidelines will be used: Underweight: BMI less than 18.5. Normal weight: BMI between 18.5 and 24.9. Overweight: BMI between 25 and 29.9. Obese: BMI of 30 and above. Please note: Weight includes both fat and muscle, so someone with a muscular build, such as an athlete, may havea BMI that is higher than 24.9. In cases like these, BMI is not an accurate measure of body fat. To determine if excess body fat is the cause of a BMI of 25 or higher, further assessments may needto be done by a health care provider. BMI is usually interpreted in the same way for men and women. Why is BMI a useful tool? BMI is useful in two ways: Identifying a weight problem that may be related to a medical condition, or that may increase the risk for medical problems. Promoting lifestyle and diet changes in order to reach a healthy weight. Summary Body mass index (BMI) is a number that is calculated from a person's weight and height. BMI may help to estimate how much of a person's weight is composed of fat. BMI can help identify those who may be at higher risk for certain medical problems. BMI can be measured using [place] measurements or metric measurements. To interpret your results, your health care provider will use BMI charts to identify whether you are underweight, normal weight, overweight, or obese. This information is not intended to replace advice given to you by your health care provider. Make sure you discuss any questions you have with your health care provider. Document Released: 10/24/2004 Document Revised: 01/25/2018 Document Reviewed: 12/26/2017 [employer] Patient Education 2020 [employer]. 01/09/2022 19:06:01 Sinusitis, Adult Sinusitis, Adult Sinusitis is inflammation of your sinuses. Sinuses are hollow spaces in the bones around your face.Your sinuses are located: Around your eyes. In the middle of your forehead. Behind your nose. In your cheekbones. Mucus normally drains out of your sinuses. When your nasal tissues become inflamed or swollen, mucus can become trapped or blocked. This allows bacteria, viruses, and fungi to grow, which leads to infection. Most infections of the sinuses are caused by a virus. Sinusitis can develop quickly. It can last for up to 4 weeks (acute) or for more than 12 weeks (chronic). Sinusitis often develops after a cold. What are the causes? This condition is caused by anything that creates swelling in the sinuses or stops mucus from draining. This includes: Allergies. Asthma. Infection from bacteria or viruses. Deformities or blockages in your nose or sinuses. Abnormal growths in the nose (nasal polyps). Pollutants, such as chemicals or irritants in the air. Infection from fungi (rare). What increases the risk? You are more likely to develop this condition if you: Have a weak body defense system (immune system). Do a lot of swimming or diving. Overuse nasal sprays. Smoke. What are the signs or symptoms? The main symptoms of this condition are pain and a feeling of pressure around the affected sinuses.Other symptoms include: Stuffy nose or congestion. Thick drainage from your nose. Swelling and warmth over the affected sinuses. Headache. Upper toothache. A cough that may get worse at night. Extra mucus that collects in the throat or the back of the nose (postnasal drip). Decreased sense of smell and taste. Fatigue. A fever. Sore throat. Bad breath. How is this diagnosed? This condition is diagnosed based on: Your symptoms. Your medical history. A physical exam. Tests to find out if your condition is acute or chronic. This may include: ?Checking your nose for nasal polyps. ?Viewing your sinuses using a device that has a light (endoscope). ?Testing for allergies or bacteria. ?Imaging tests, such as an MRI or CT scan. In rare cases, a bone biopsy may be done to rule out more serious types of fungal sinus disease. How is this treated? Treatment for sinusitis depends on the cause and whether your condition is chronic or acute. If caused by a virus, your symptoms should go away on their own within 10 days. You may be given medicines to relieve symptoms. They include: ?Medicines that shrink swollen nasal passages (topical intranasal decongestants). ?Medicines that treat allergies (antihistamines). ?A spray that eases inflammation of the nostrils (topical intranasal corticosteroids). ?Rinses that help get rid of thick mucus in your nose (nasal saline washes). If caused by bacteria, your health care provider may recommend waiting to see if your symptoms improve. Most bacterial infections will get better without antibiotic medicine. You may be given antibiotics if you have: ?A severe infection. ?A weak immune system. If caused by narrow nasal passages or nasal polyps, you may need to have surgery. Follow these instructions at home: Medicines Take, use, or apply mzzm-jev-nqastmn and prescription medicines only as told by your health care provider. These may include nasal sprays. If you were prescribed an antibiotic medicine, take it as told by your health care provider. Do notstop taking the antibiotic even if you start to feel better. Hydrate and humidify Drink enough fluid to keep your urine pale yellow. Staying hydrated will help to thin your mucus. Use a cool mist humidifier to keep the humidity level in your home above 50%. Inhale steam for 10 15 minutes, 3 4 times a day, or as told by your health care provider. You can do this in the bathroom while a hot shower is running. Limit your exposure to cool or dry air. Rest Rest as much as possible. Sleep with your head raised (elevated). Make sure you get enough sleep each night. General instructions Apply a warm, moist washcloth to your face 3 4 times a day or as told by your health care provider.This will help with discomfort. Wash your hands often with soap and water to reduce your exposure to germs. If soap and water are not available, use hand refinery operator coking. Do not smoke. Avoid being around people who are smoking (secondhand smoke). Keep all follow-up visits as told by your health care provider. This is important. Contact a health care provider if: You have a fever. Your symptoms get worse. Your symptoms do not improve within 10 days. Get help right away if: You have a severe headache. You have persistent vomiting. You have severe pain or swelling around your face or eyes. You have vision problems. You develop confusion. Your neck is stiff. You have trouble breathing. Summary Sinusitis is soreness and inflammation of your sinuses. Sinuses are hollow spaces in the bones around your face. This condition is caused by nasal tissues that become inflamed or swollen. The swelling traps or blocks the flow of mucus. This allows bacteria, viruses, and fungi to grow, which leads to infection. If you were prescribed an antibiotic medicine, take it as told by your health care provider. Do notstop taking the antibiotic even if you start to feel better. Keep all follow-up visits as told by your health care provider. This is important. This information is not intended to replace advice given to you by your health care provider. Make sure you discuss any questions you have with your health care provider. Document Released: 02/12/2006 Document Revised: 07/15/2018 Document Reviewed: 07/15/2018 [employer] Patient Education 2020 [employer] Follow Up Care 01/09/2022 16:53:22 With:KATLIN FERNANDEZ DO Address: [place], [place] When: Unknown [facility] 11-02-2022 Hospital Discharge instructions Patient Education 12/27/2021 23:41:51 Flank Pain, Adult Flank Pain, Adult Flank pain is pain that is located on the side of the body between the upper abdomen and the back. This area is called the flank. The pain may occur over a short period of time (acute), or it may be long-term or recurring (chronic). It may be mild or severe. Flank pain can be caused by many things,including: Muscle soreness or injury. Kidney stones or kidney disease. Stress. A disease of the spine (vertebral disk disease). A lung infection (pneumonia). Fluid around the lungs (pulmonary edema). A skin rash caused by the chickenpox virus (shingles). Tumors that affect the back of the abdomen. Gallbladder disease. Follow these instructions at home: Drink enough fluid to keep your urine clear or pale yellow. Rest as told by your health care provider. Take svii-bnl-ajtlrpq and prescription medicines only as told by your health care provider. Keep a journal to track what has caused your flank pain and what has made it feel better. Keep all follow-up visits as told by your health care provider. This is important. Contact a health care provider if: Your pain is not controlled with medicine. You have new symptoms. Your pain gets worse. You have a fever. Your symptoms last longer than 2 3 days. You have trouble urinating or you are urinating very frequently. Get help right away if: You have trouble breathing or you are short of breath. Your abdomen hurts or it is swollen or red. You have nausea or vomiting. You feel faint or you pass out. You have blood in your urine. Summary Flank pain is pain that is located on the side of the body between the upper abdomen and the back. The pain may occur over a short period of time (acute), or it may be long-term or recurring (chronic). It may be mild or severe. Flank pain can be caused by many things. Contact your health care provider if your symptoms get worse or they last longer than 2 3 days. This information is not intended to replace advice given to you by your health care provider. Make sure you discuss any questions you have with your health care provider. Document Released: 04/05/2006 Document Revised: 01/25/2018 Document Reviewed: 04/27/2017 [employer] Patient Education 2020 [employer]. Follow Up Care 12/27/2021 20:30:57 With:KATLIN FERNANDEZ Address: [place], [place] Business (1) When:Within 3 Day(s) [facility]11-01-2022 Evaluation + Plan noteExtracted from: Title:ED Note Author:Curt Yanes DO Date :12/27/21 Flank pain (R10.9: Unspecifi ed abdominal pain) Orders: lidocaine topical, 1 patch(es), Patch, TransDermal, Once, Stop date 12/27/21 23:25:00 EDT, STAT, Start date 12/27/21 23:25:00 EDT lidocaine topical, 1 patch(es), Topical, Daily, 7 patch(es), Refill(s) 0, apply 12 hours on and 12 hours off daily, [id number], 150, cm, 12/27/21 20:34:00 EDT, Height/Length Dosing, 75, kg, 12/27/21 20:34:00 EDT, Weight Dosing Sodium Chloride 0.9% intravenous solution, Soln-IV, Misc, Once, Stop date 12/27/21 20:49:53 EDT, Physician Stop, 12/27/21 20:49:53 EDT Sodium Chloride 0.9% intravenous solution, 1,000 mL, Soln-IV, IV, Once, Stop date 12/27/21 20:48:00 EDT, STAT, Start date 12/27/21 20:48:00 EDT, mL/hr, Infuse over 61, minute(s) Automated Diff Basic Metabolic Panel CBC w/ Auto Diff CT Abdomen/Pelvis w/o Contrast eGFR Extra Blue Tube Extra SST Tube Hepatic Function Panel Lipase Level U Beta Hcg Qual UA With Cult Reflex Future Scheduled Tests Laboratory* Fecal WBC Lactoferrin 06/15/21 * Giardia lamblia, Direct Detection EIA 06/15/21 * O & P Exam, Routine 06/15/21 * Clostridium difficile by PCR 06/15/21 * Enteric Panel by PCR 06/15/21 Radiology* XR Hand 3+ Views Left 10/24/21 [facility]10-06-2022 Evaluation note* Encounter Date Diagnosis Assessment Notes Treatment Notes Treatment Clinical Notes Nov, Dysuria (ICD-10 - R30.0) Nov, UTI (urinary tract infection) (ICD-10 - N39.0) Increase water intake. Will call with culture results. Nov, Insomnia (ICD-10 - G47.00) Reviewed proper sleep habits/schedule. [employer] Other 09-13-2022 Evaluation + Plan noteExtracted from: Title:ED Note Author:Velvet [employer]OWER, Urban Juarez Pete e:11/08/21 Urinary tract infection (N39 .0: Urinary tract infection, site not specified) Diagnostic Tests Pending * Urine Culture 11/08/21 Future Scheduled Tests Laboratory* Fecal WBC Lactoferrin 06/15/21 * Giardia lamblia, Direct Detection EIA 06/15/21 * O & P Exam, Routine 06/15/21 * Clostridium difficile by PCR 06/15/21 * Enteric Panel by PCR 06/15/21 Radiology* XR Hand 3+ Views Left 10/24/21 [facility]09-13-2022 Hospital Discharge instructions Patient Education 11/08/2021 10:07:24 Urinary Tract Infection, Adult Urinary Tract Infection, Adult A urinary tract infection (UTI) is an infection of any part of the urinary tract. The urinary tractincludes the kidneys, ureters, bladder, and urethra. These organs make, store, and get rid of urinein the body. Your health care provider may use other names to describe the infection. An upper UTI affects the ureters and kidneys (pyelonephritis). A lower UTI affects the bladder (cystitis) and urethra (urethritis). What are the causes? Most urinary tract infections are caused by bacteria in your genital area, around the entrance to your urinary tract (urethra). These bacteria grow and cause inflammation of your urinary tract. What increases the risk? You are more likely to develop this condition if: You have a urinary catheter that stays in place (indwelling). You are not able to control when you urinate or have a bowel movement (you have incontinence). You are female and you: ?Use a spermicide or diaphragm for control. ?Have low estrogen levels. ?Are . You have certain genes that increase your risk (genetics). You are sexually active. You take antibiotic medicines. You have a condition that causes your flow of urine to slow down, such as: ?An enlarged prostate, if you are male. ?Blockage in your urethra (stricture). ?A kidney stone. ?A nerve condition that affects your bladder control (neurogenic bladder). ?Not getting enough to drink, or not urinating often. You have certain medical conditions, such as: ?Diabetes. ?A weak disease-fighting system (immunesystem). ?Sickle cell disease. ?Gout. ?Spinal cord injury. What are the signs or symptoms? Symptoms of this condition include: Needing to urinate right away (urgently). Frequent urination or passing small amounts of urine frequently. Pain or burning with urination. Blood in the urine. Urine that smells bad or unusual. Trouble urinating. Cloudy urine. Vaginal discharge, if you are female. Pain in the abdomen or the lower back. You may also have: Vomiting or a decreased appetite. Confusion. Irritability or tiredness. A fever. Diarrhea. The first symptom in older adults may be confusion. In some cases, they may not have any symptoms until the infection has worsened. How is this diagnosed? This condition is diagnosed based on your medical history and a physical exam. You may also have other tests, including: Urine tests. Blood tests. Tests for sexually transmitted infections (STIs). If you have had more than one UTI, a cystoscopy or imaging studies may be done to determine the cause of the infections. How is this treated? Treatment for this condition includes: Antibiotic medicine. Wkpd-exg-bojpcts medicines to treat discomfort. Drinking enough water to stay hydrated. If you have frequent infections or have other conditions such as a kidney stone, you may need to see a health care provider who specializes in the urinary tract (urologist). In rare cases, urinary tract infections can cause sepsis. Sepsis is a life- threatening condition that occurs when the body responds to an infection. Sepsis is treated in the hospital with IV antibiotics, fluids, and other medicines. Follow these instructions at home: Medicines Take tedn-ngy-asbqjnq and prescription medicines only as told by your health care provider. If you were prescribed an antibiotic medicine, take it as told by your health care provider. Do notstop using the antibiotic even if you start to feel better. General instructions Make sure you: ?Empty your bladder often and completely. Do not hold urine for long periods of time. ?Empty your bladder after sex. ?Wipe from front to back after a bowel movement if you are female. Use each tissue one time when you wipe. Drink enough fluid to keep your urine pale yellow. Keep all follow-up visits as told by your health care provider. This is important. Contact a health care provider if: Your symptoms do not get better after 1 2 days. Your symptoms go away and then return. Get help right away if you have: Severe pain in your back or your lower abdomen. A fever. Nausea or vomiting. Summary A urinary tract infection (UTI) is an infection of any part of the urinary tract, which includes the kidneys, ureters, bladder, and urethra. Most urinary tract infections are caused by bacteria in your genital area, around the entrance to your urinary tract (urethra). Treatment for this condition often includes antibiotic medicines. If you were prescribed an antibiotic medicine, take it as told by your health care provider. Do notstop using the antibiotic even if you start to feel better. Keep all follow-up visits as told by your health care provider. This is important. This information is not intended to replace advice given to you by your health care provider. Make sure you discuss any questions you have with your health care provider. Document Released: 11/22/2005 Document Revised: 01/30/2019 Document Reviewed: 08/22/2018 [employer] Patient Education 2020 [employer] Follow Up Care 11/08/2021 06:44:01 With:KATLIN FERNANDEZ Address: [place], [place] [employer] (1) When:11/11/2021 10:07:12 [facility]08-29-2022 Hospital Discharge instructions Patient Education 10/24/2021 21:13:31 Hand Pain Hand Pain Many things can cause hand pain. Some common causes are: An injury. Repeating the same movement with your hand over and over (overuse). Osteoporosis. Arthritis. Lumps in the tendons or joints of the hand and wrist (ganglion cysts). Nerve compression syndromes (carpal tunnel syndrome). Inflammation of the tendons (tendinitis). Infection. Follow these instructions at home: Pay attention to any changes in your symptoms. Take these actions to help with your discomfort: Managing pain, stiffness, and swelling Take sjjf-ger-dtwxykx and prescription medicines only as told by your health care provider. Wear a hand splint or support as told by your health care provider. If directed, put ice on the affected area: ?Put ice in a plastic bag. ?Place a towel between your skin and the bag. ?Leave the ice on for 20 minutes, 2 3 times a day. Activity Take breaks from repetitive activity often. Avoid activities that make your pain worse. Minimize stress on your hands and wrists as much as possible. Do stretches or exercises as told by your health care provider. Do not do activities that make your pain worse. Contact a health care provider if: Your pain does not get better after a few days of self-care. Your pain gets worse. Your pain affects your ability to do your daily activities. Get help right away if: Your hand becomes warm, red, or swollen. Your hand is numb or tingling. Your hand is extremely swollen or deformed. Your hand or fingers turn white or blue. You cannot move your hand, wrist, or fingers. Summary Many things can cause hand pain. Contact your health care provider if your pain does not get better after a few days of self care. Minimize stress on your hands and wrists as much as possible. Do not do activities that make your pain worse. This information is not intended to replace advice given to you by your health care provider. Make sure you discuss any questions you have with your health care provider. Document Released: 03/10/2016 Document Revised: 11/08/2018 Document Reviewed: 11/08/2018 [employer] Patient Education 2020 [employer]. Follow Up Care 10/24/2021 18:59:06 With:Roya Rosario Address: [address] [place], [place] [id number] [employer] (1) When:10/27/2021 21:03:45 With:KATLIN FERNANDEZ Address: [place], [place] Business (1) When:Within 3 Day(s) [facility]08-29-2022 Hospital Discharge instructions Patient Education 10/24/2021 18:39:24 BMI for Adults BMI for Adults Body mass index (BMI) is a number that is calculated from a person's weight and height. BMI may help to estimate how much of a person's weight is composed of fat. BMI can help identify those who may be at higher risk for certain medical problems. How is BMI used with adults? BMI is used as a screening tool to identify possible weight problems. It is used to check whether aperson is obese, overweight, healthy weight, or underweight. How is BMI calculated? BMI measures your weight and compares it to your height. This can be done either in [place] ([place] or metric measurements. Note that charts are available to help you find your BMI quickly and easily without having to do these calculations yourself. To calculate your BMI in [place] ([place] measurements, your health care provider will: 1.Measure your weight in pounds (lb). 2.Multiply the number of pounds by 703. For example, for a person who weighs 180 lb, multiply that number by 703, which equals 126,540. 3.Measure your height in inches (in). Then multiply that number by itself to get a measurement called inches squared. For example, for a person who is 70 in tall, the inches squared measurement is 70 in x 70 in, which equals 4900 inches squared. 4.Divide the total from Step 2 (number of lb x 703) by the total from Step 3 (inches squared): 126,540 4900 = 25.8. This is your BMI. To calculate your BMI in metric measurements, your health care provider will: 1.Measure your weight in kilograms (kg). 2.Measure your height in meters (m). Then multiply that number by itself to get a measurement called meters squared. For example, for a person who is 1.75 m tall, the meters squared measurement is 1.75 m x 1.75 m, which is equal to 3.1 meters squared. 3.Divide the number of kilograms (your weight) by the meters squared number. In this example: 70 3.1 = 22.6. This is your BMI. How is BMI interpreted? To interpret your results, your health care provider will use BMI charts to identify whether you are underweight, normal weight, overweight, or obese. The following guidelines will be used: Underweight: BMI less than 18.5. Normal weight: BMI between 18.5 and 24.9. Overweight: BMI between 25 and 29.9. Obese: BMI of 30 and above. Please note: Weight includes both fat and muscle, so someone with a muscular build, such as an athlete, may havea BMI that is higher than 24.9. In cases like these, BMI is not an accurate measure of body fat. To determine if excess body fat is the cause of a BMI of 25 or higher, further assessments may needto be done by a health care provider. BMI is usually interpreted in the same way for men and women. Why is BMI a useful tool? BMI is useful in two ways: Identifying a weight problem that may be related to a medical condition, or that may increase the risk for medical problems. Promoting lifestyle and diet changes in order to reach a healthy weight. Summary Body mass index (BMI) is a number that is calculated from a person's weight and height. BMI may help to estimate how much of a person's weight is composed of fat. BMI can help identify those who may be at higher risk for certain medical problems. BMI can be measured using Swazi measurements or metric measurements. To interpret your results, your health care provider will use BMI charts to identify whether you are underweight, normal weight, overweight, or obese. This information is not intended to replace advice given to you by your health care provider. Make sure you discuss any questions you have with your health care provider. Document Released: 10/24/2004 Document Revised: 01/25/2018 Document Reviewed: 12/26/2017 [employer] Patient Education 2020 [employer]. 10/24/2021 18:39:22 Hand Pain Hand Pain Many things can cause hand pain. Some common causes are: An injury. Repeating the same movement with your hand over and over (overuse). Osteoporosis. Arthritis. Lumps in the tendons or joints of the hand and wrist (ganglion cysts). Nerve compression syndromes (carpal tunnel syndrome). Inflammation of the tendons (tendinitis). Infection. Follow these instructions at home: Pay attention to any changes in your symptoms. Take these actions to help with your discomfort: Managing pain, stiffness, and swelling Take jqkz-qjd-cmenkfb and prescription medicines only as told by your health care provider. Wear a hand splint or support as told by your health care provider. If directed, put ice on the affected area: ?Put ice in a plastic bag. ?Place a towel between your skin and the bag. ?Leave the ice on for 20 minutes, 2 3 times a day. Activity Take breaks from repetitive activity often. Avoid activities that make your pain worse. Minimize stress on your hands and wrists as much as possible. Do stretches or exercises as told by your health care provider. Do not do activities that make your pain worse. Contact a health care provider if: Your pain does not get better after a few days of self-care. Your pain gets worse. Your pain affects your ability to do your daily activities. Get help right away if: Your hand becomes warm, red, or swollen. Your hand is numb or tingling. Your hand is extremely swollen or deformed. Your hand or fingers turn white or blue. You cannot move your hand, wrist, or fingers. Summary Many things can cause hand pain. Contact your health care provider if your pain does not get better after a few days of self care. Minimize stress on your hands and wrists as much as possible. Do not do activities that make your pain worse. This information is not intended to replace advice given to you by your health care provider. Make sure you discuss any questions you have with your health care provider. Document Released: 03/10/2016 Document Revised: 11/08/2018 Document Reviewed: 11/08/2018 [employer] Patient Education 2020 [employer]. Follow Up Care 10/24/2021 18:06:06 With:KATLIN FERNANDEZ DO Address: [place], [place] When: Unknown [facility] 08-29-2022 Evaluation + Plan noteExtracted from: Title:ED Note Author:Curt Yanes DO Date :10/24/21 Hand pain (M79.643: Pain in unspecified hand) Hematuria (R31.9: Hematuria, unspecified) Orders: U Beta Hcg Qual UA With Cult Reflex Urine Culture Diagnostic Tests Pending * Urine Culture 10/24/21 Future Scheduled Tests Laboratory* Fecal WBC Lactoferrin 06/15/21 * Giardia lamblia, Direct Detection EIA 06/15/21 * O & P Exam, Routine 06/15/21 * Clostridium difficile by PCR 06/15/21 * Enteric Panel by PCR 06/15/21 Radiology* XR Hand 3+ Views Left 10/24/21 [facility]08-29-2022 Evaluation + Plan note Future Scheduled Tests Radiology* XR Hand 3+ Views Left 10/24/21 [facility]07-26-2022 Evaluation + Plan noteExtracted from: Title:ED Note Author:Maikol POWER, Jax Palafox te:09/20/21 Fall (W19.XXXA: Unspecified fall, initial encounter) Finger sprain (S63.619A: Unspecified sprain of unspecified finger, initial encounter) Orders: Finger Splint Application XR Hand 3+ Views Left Future Appointments Appointment Date:09/21/2021 09:30:00 AM Scheduled Provider:Brayden POPE MD Location:[facility] Dig[facility]ive Health Appointment Type:[facility] Follow Up Future Scheduled Tests Laboratory* Fecal WBC Lactoferrin 06/15/21 * Giardia lamblia, Direct Detection EIA 06/15/21 * O & P Exam, Routine 06/15/21 * Clostridium difficile by PCR 06/15/21 * Enteric Panel by PCR 06/15/21 [facility]07-26-2022 Hospital Discharge instructions Patient Education 09/20/2021 10:15:30 Finger Sprain, Adult Finger Sprain, Adult A finger sprain is a tear or stretch in a ligament in a finger. Ligaments are tissues that connect bones to each other. What are the causes? Finger sprains happen when something makes the bones in the hand move in an abnormal way. They are often caused by a fall or accident. What increases the risk? This condition is more likely to develop in people who: Participate in sports in which it is easy to fall, such as skiing. Play sports that involve catching an object, such as basketball. Have poor strength and flexibility. What are the signs or symptoms? Symptoms of this condition include: Pain or tenderness in the finger. Swelling in the finger. Bluish appearance to the finger. Bruising. Difficulty bending and flexing the finger. How is this diagnosed? This condition is diagnosed with an exam of your finger. Your health care provider may do an X-ray to see if any bones are broken or dislocated. How is this treated? Treatment for this condition depends on how severe the sprain is. It may involve: Preventing the finger from moving for a period of time. Your finger may be wrapped in a bandage (dressing), splint, or cast, or your finger may be taped to the fingers beside it (aparna taping). Keeping the hand raised (elevated) above the level of the heart during rest and sleep. Medicines for pain. Exercises to strengthen the finger. These may be recommended when the finger has healed. Surgery to reconnect the ligament to a bone. This may be done if the ligament was torn all the way. Follow these instructions at home: If you have a splint: Do not put pressure on any part of the splint until it is fully hardened. This may take several hours. Wear the splint as told by your health care provider. Remove it only as told by your health care provider. Loosen the splint if your fingers tingle, become numb, or turn cold and blue. Keep the splint clean. If the splint is not waterproof: ?Do not let it get wet. ?Cover it with a watertight covering when you take a bath or a shower. If you have a cast: Do not put pressure on any part of the cast until it is fully hardened. This may take several hours. Do not stick anything inside the cast to scratch your skin. Doing that increases your risk of infection. Check the skin around the cast every day. Tell your health care provider about any concerns. You may put lotion on dry skin around the edges of the cast. Do not put lotion on the skin underneath the cast. Keep the cast clean. If the cast is not waterproof: ?Do not let it get wet. ?Cover it with a watertight covering when you take a bath or shower. Managing pain, stiffness, and swelling If directed, put ice on the injured area: ?If you have a removable splint, remove it as told by your health care provider. ?Put ice in a plastic bag. ?Place a towel between your skin and the bag or between your cast and the bag. ?Leave the ice on for 20 minutes, 2 3 times a day. Gently move your fingers often to avoid stiffness and to lessen swelling. Elevate the injured area above the level of your heart while you are sitting or lying down. Medicines Take odku-qlo-jgtukxl and prescription medicines only as told by your health care provider. Do not drive or use heavy machinery while taking prescription pain medicine. General instructions Keep any dressings dry until your health care provider says they can be removed. Do exercises as told by your health care provider or physical therapist. Do not wear rings on your injured finger. Keep all follow-up visits as told by your health care provider. This is important. Get help right away if: Your pain is not controlled with medicine. Your bruising or swelling gets worse. Your splint or cast is damaged. Your finger is numb or blue. Your finger feels colder to the touch than normal. You develop a fever. Summary A finger sprain is a tear or stretch in a ligament in a finger. Ligaments are tissues that connect bones to each other. Finger sprains happen when something makes the bones in the hand move in an abnormal way. They are often caused by a fall or accident. This condition is diagnosed with an exam of your finger. Your health care provider may do an X-ray to see if any bones are broken or dislocated. Treatment for this condition depends on how severe the sprain is. Treatment may involve wearing a splint or cast. Surgery to reconnect the ligament to a bone may be needed if the ligament was torn all the way. This information is not intended to replace advice given to you by your health care provider. Make sure you discuss any questions you have with your health care provider. Document Released: 03/22/2005 Document Revised: 01/25/2018 Document Reviewed: 05/04/2017 [employer] Patient Education 2020 [employer]. Follow Up Care 09/20/2021 09:04:52 With:KATLIN FERNANDEZ Address: [place], [place] Business (1) When:09/23/2021 10:02:19 [facility]07-19-2022 Evaluation + Plan noteExtracted from: Title:ED Note Author:Kanu Kelly DO Date:08/26 11/17 Carpal tunnel syndrome, bila teral (G56.03: Carpal tunnel syndrome, bilateral upper limbs) Contusion of left hip (S70.02XA: Contusion of left hip, initial encounter) Ordered: acetaminophen-oxycodone, 1 tab(s), Oral, q6hr for 3 day(s), 12 tab(s), Refill(s) 0 Orders: meloxicam, 15 mg = 1 tab(s), Oral, Daily, # 30 tab(s), Refills(s) 0 Splint Application Wrist Splint Application Wrist XR Hip 2-3 Views Left + Pelvis Future Appointments Appointment Date:09/21/2021 09:30:00 AM Scheduled Provider:Brayden POPE MD Location:[facility] Digestive Health Appointment Type:[facility] Follow Up Future Scheduled Tests Laboratory* Fecal WBC Lactoferrin 06/15/21 * Giardia lamblia, Direct Detection EIA 06/15/21 * O & P Exam, Routine 06/15/21 * Clostridium difficile by PCR 06/15/21 * Enteric Panel by PCR 06/15/21 [facility]07-19-2022 Hospital Discharge instructions Follow Up Care 09/13/2021 10:02:01 With:Roya Rosario Address: [address] [place] [phone]- Business (1) When:09/16/2021 10:53:07 With:Lars Maldonado Address: [facility] [address] [place] [address] 1 Business (1) When:09/16/2021 10:53:03 [facility]05-28-2022 Hospital Discharge instructions Patient Education 07/22/2021 23:31:05 Nausea and Vomiting, Adult Nausea and Vomiting, Adult Nausea is the feeling that you have an upset stomach or that you are about to vomit. Vomiting is when stomach contents are thrown up and out of the mouth as a result of nausea. Vomiting can make you feel weak and cause you to become dehydrated. Dehydration can make you feel tired and thirsty, cause you to have a dry mouth, and decrease how often you urinate. Older adults and people with other diseases or a weak disease-fighting system (immune system) are at higher risk for dehydration. It is important to treat your nausea and vomiting as told by your health care provider. Follow these instructions at home: Watch your symptoms for any changes. Tell your health care provider about them. Follow these instructions to care for yourself at home. Eating and drinking Take an oral rehydration solution (ORS). This is a drink that is sold at pharmacies and retail stores. Drink clear fluids slowly and in small amounts as you are able. Clear fluids include water, ice chips, low-calorie sports drinks, and fruit juice that has water added (diluted fruit juice). Eat bland, jisc-nb-ivotgb foods in small amounts as you are able. These foods include bananas, applesauce, rice, lean meats, toast, and crackers. Avoid fluids that contain a lot of sugar or caffeine, such as energy drinks, sports drinks, and soda. Avoid alcohol. Avoid spicy or fatty foods. General instructions Take zkuy-qxn-ibgxspx and prescription medicines only as told by your health care provider. Drink enough fluid to keep your urine pale yellow. Wash your hands often using soap and water. If soap and water are not available, use hand refinery operator coking. Make sure that all people in your household wash their hands well and often. Rest at home while you recover. Watch your condition for any changes. Breathe slowly and deeply when you feel nauseated. Keep all follow-up visits as told by your health care provider. This is important. Contact a health care provider if: Your symptoms get worse. You have new symptoms. You have a fever. You cannot drink fluids without vomiting. Your nausea does not go away after 2 days. You feel light-headed or dizzy. You have a headache. You have muscle cramps. You have a rash. You have pain while urinating. Get help right away if: You have pain in your chest, neck, arm, or jaw. You feel extremely weak or you faint. You have persistent vomiting. You have vomit that is bright red or looks like black coffee grounds. You have bloody or black stools or stools that look like tar. You have a severe headache, a stiff neck, or both. You have severe pain, cramping, or bloating in your abdomen. You have difficulty breathing, or you are breathing very quickly. Your heart is beating very quickly. Your skin feels cold and clammy. You feel confused. You have signs of dehydration, such as: ?Dark urine, very little urine, or no urine. ?Cracked lips. ?Dry mouth. ?Sunken eyes. ?Sleepiness. ?Weakness. These symptoms may represent a serious problem that is an emergency. Do not wait to see if the symptoms will go away. Get medical help right away. Call your local emergency services (911 in the [place] Do not drive yourself to the hospital. Summary Nausea is the feeling that you have an upset stomach or that you are about to vomit. As nausea getsworse, it can lead to vomiting. Vomiting can make you feel weak and cause you to become dehydrated. Follow instructions from your health care provider about eating and drinking to prevent dehydration. Take bmnw-ahc-qoekowr and prescription medicines only as told by your health care provider. Contact your health care provider if your symptoms get worse, or you have new symptoms. Keep all follow-up visits as told by your health care provider. This is important. This information is not intended to replace advice given to you by your health care provider. Make sure you discuss any questions you have with your health care provider. Document Released: 02/12/2006 Document Revised: 06/06/2019 Document Reviewed: 07/23/2018 [employer] Patient Education 2020 [employer] Follow Up Care 07/22/2021 20:11:40 With:KATLIN FERNANDEZ Address: [place], [place] Business (1) When:Within 3 Day(s) [facility]05-27-2022 Evaluation + Plan noteExtracted from: Title:ED Note Author:Curt Yanes DOCheryl Date :07/22/21 Nausea and vomiting (R11.2: Nausea with vomiting, unspecified) Orders: Al hydroxide/Mg hydroxide/simethicone, 30 mL, Susp-Oral, Oral, Once, Stop date 07/22/21 22:22:00 EDT, STAT, Start date 07/22/21 22:22:00 EDT atropine/hyoscyamine/PB/scopolamine, 10 mL, Elixir, Oral, Once, Stop date 07/22/21 22:22:00 EDT, STAT, Start date 07/22/21 22:22:00 EDT famotidine, 20 mg = 1 tab(s), Oral, BID, # 60 tab(s), Refills(s) 0, Pharmacy: [facility], 150, cm, 07/22/21 20:23:00 EDT, Height/Length Dosing, 70, kg, 07/22/21 20:23:00 EDT, Weight Dosing lidocaine topical, 200 mg, 10 mL, Soln-Oral, Oral, Once, Stop date 07/22/21 22:22:00 EDT, STAT, Start date 07/22/21 22:22:00 EDT promethazine, 12.5 mg = 1 supp, Rectal, q8hr, # 6 EA, Refills(s) 0, Pharmacy: [facility], 150, cm, 07/22/21 20:23:00 EDT, Height/Length Dosing, 70, kg, 07/22/21 20:23:00 EDT, Weight Dosing promethazine, 25 mg = 1 supp, Supp, Rectal, Once, Stop date 07/22/21 21:10:00 EDT, STAT, Start date 07/22/21 21:10:00 EDT, 07/22/21 21:10:00 EDT Future Appointments Appointment Date:09/21/2021 09:30:00 AM Scheduled Provider:Brayden POPE MD Location:[facility] Digestive Health Appointment Type:[facility] Follow Up Future Scheduled Tests Laboratory* Fecal WBC Lactoferrin 06/15/21 * Giardia lamblia, Direct Detection EIA 06/15/21 * O & P Exam, Routine 06/15/21 * Clostridium difficile by PCR 06/15/21 * Enteric Panel by PCR 06/15/21 [facility]05-26-2022 Evaluation + Plan noteExtracted from: Title:ED Note Author:Danette Marcial PA-C Date :07/21/21 1. Strep throat (J02.0: Stre ptococcal pharyngitis) Ordered: clindamycin, 300 mg = 1 cap(s), Oral, q8hr, X 10 day(s), # 30 cap(s), Refills(s) 0, Pharmacy: [facility], 150, cm, 07/20/21 23:23:00 EDT, Height/Length Dosing, 70, kg, 07/20/21 23:23:00 EDT, Weight Dosing Orders: clindamycin, 300 mg = 2 cap(s), Cap, Oral, Once, Stop date 07/21/21 0:26:00 EDT, STAT, Start date 07/21/21 0:26:00 EDT, 07/21/21 0:26:00 EDT ondansetron, 4 mg = 1 tab(s), Tab-Dis, Oral, Once, Stop date 07/20/21 23:57:00 EDT, STAT, Start date 07/20/21 23:57:00 EDT, 07/20/21 23:57:00 EDT Future Appointments Appointment Date:09/21/2021 09:30:00 AM Scheduled Provider:Brayden POPE MD Location:[facility] Dig[facility] Appointment Type:[facility] Follow Up Future Scheduled Tests Laboratory* Fecal WBC Lactoferrin 06/15/21 * Giardia lamblia, Direct Detection EIA 06/15/21 * O & P Exam, Routine 06/15/21 * Clostridium difficile by PCR 06/15/21 * Enteric Panel by PCR 06/15/21 [facility]05-26-2022 Hospital Discharge instructions Patient Education 07/21/2021 00:21:20 Strep Throat, Adult Strep Throat, Adult Strep throat is an infection in the throat that is caused by bacteria. It is common during the coldmonths of the year. It mostly affects children who are 5 15 years old. However, people of all ages can get it at any time of the year. This infection spreads from person to person (is contagious) through coughing, sneezing, or having close contact. Your health care provider may use other names to describe the infection. It can be called tonsillitis (if there is swelling of the tonsils), or pharyngitis (if there is swelling at the back of the throat). What are the causes? This condition is caused by the Streptococcus pyogenes bacteria. What increases the risk? You are more likely to develop this condition if: You care for school-age children, or are around school-age children. Children are more likely to get strep throat and may spread it to others. You spend time in crowded places where the infection can spread easily. You have close contact with someone who has strep throat. What are the signs or symptoms? Symptoms of this condition include: Fever or chills. Redness, swelling, or pain in the tonsils or throat. Pain or difficulty when swallowing. White or yellow spots on the tonsils or throat. Tender glands in the neck and under the jaw. Bad smelling breath. Red rash all over the body. This is rare. How is this diagnosed? This condition is diagnosed by tests that check for the presence and the amount of bacteria that cause strep throat. They are: Rapid strep test. Your throat is swabbed and checked for the presence of bacteria. Results are usually ready in minutes. Throat culture test. Your throat is swabbed. The sample is placed in a cup that allows infections to grow. Results are usually ready in 1 or 2 days. How is this treated? This condition may be treated with: Medicines that kill germs (antibiotics). Medicines that relieve pain or fever. These include: ?Ibuprofen or acetaminophen. ?Aspirin, only for patients who are over the age of 18. ?Throat lozenges. ?Throat sprays. Follow these instructions at home: Medicines Take hgci-mpz-gfpavlt and prescription medicines only as told by your health care provider. Take your antibiotic medicine as told by your health care provider. Do not stop taking the antibiotic even if you start to feel better. Eating and drinking If you have trouble swallowing, try eating soft foods until your sore throat feels better. Drink enough fluid to keep your urine pale yellow. To help relieve pain, you may have: ?Warm fluids, such as soup and tea. ?Cold fluids, such as frozen desserts or popsicles. General instructions Gargle with a salt-water mixture 3 4 times a day or as needed. To make a salt- water mixture, completely dissolve 1 tsp (3 6 g) of salt in 1 cup (237 mL) of warm water. Get plenty of rest. Stay home from work or school until you have been taking antibiotics for 24 hours. Avoid smoking or being around people who smoke. Keep all follow-up visits as told by your health care provider. This is important. How is this prevented? Do not share food, drinking cups, or personal items that could cause the infection to spread to other people. Wash your hands well with soap and water, and make sure that all people in your house wash their hands well. Have family members tested if they have a sore throat or fever. They may need an antibiotic if theyhave strep throat. Contact a health care provider if: The glands in your neck continue to get bigger. You develop a rash, cough, or earache. You cough up a thick mucus that is green, yellow-brown, or bloody. You have pain or discomfort that does not get better with medicine. Your symptoms seem to be getting worse and not better. You have a fever. Get help right away if: You have new symptoms, such as vomiting, severe headache, stiff or painful neck, chest pain, or shortness of breath. You have severe throat pain, drooling, or changes in your voice. You have swelling of the neck, or the skin on the neck becomes red and tender. You have signs of dehydration, such as tiredness (fatigue), dry mouth, and decreased urination. You become increasingly sleepy, or you cannot wake up completely. Your joints become red or painful. Summary Strep throat is an infection in the throat that is caused by the Streptococcus pyogenes bacteria. This infection is spread from person to person (is contagious) through coughing, sneezing, or having close contact. Take your medicines, including antibiotics, as told by your health care provider. Do not stop taking the antibiotic even if you start to feel better. To prevent the spread of germs, wash your hands well with soap and water. Have others do the same. Do not share food, drinking cups, or personal items. Get help right away if you have new symptoms, such as vomiting, severe headache, stiff or painful neck, chest pain, or shortness of breath. This information is not intended to replace advice given to you by your health care provider. Make sure you discuss any questions you have with your health care provider. Document Released: 02/09/2001 Document Revised: 05/02/2019 Document Reviewed: 05/02/2019 [employer] Patient Education 2019 [employer] Follow Up Care 07/20/2021 22:26:00 With:KATLIN FERNANDEZ DO [facility] When:07/24/2021 [facility]04-20-2022 Hospital Discharge instructions Patient Education 06/15/2021 12:37:10 Gastritis, Adult Gastritis, Adult Gastritis is inflammation of the stomach. There are two kinds of gastritis: Acute gastritis. This kind develops suddenly. Chronic gastritis. This kind is much more common and lasts for a long time. Gastritis happens when the lining of the stomach becomes weak or gets damaged. Without treatment, gastritis can lead to stomach bleeding and ulcers. What are the causes? This condition may be caused by: An infection. Drinking too much alcohol. Certain medicines. These include steroids, antibiotics, and some zcqv-qvi-hkqfpgg medicines, such as aspirin or ibuprofen. Having too much acid in the stomach. A disease of the intestines or stomach. Stress. An allergic reaction. Crohn's disease. Some cancer treatments (radiation). Sometimes the cause of this condition is not known. What are the signs or symptoms? Symptoms of this condition include: Pain or a burning sensation in the upper abdomen. Nausea. Vomiting. An uncomfortable feeling of fullness after eating. Weight loss. Bad breath. Blood in your vomit or stools. In some cases, there are no symptoms. How is this diagnosed? This condition may be diagnosed with: Your medical history and a description of your symptoms. A physical exam. Tests. These can include: ?Blood tests. ?Stool tests. ?A test in which a thin, flexible instrument with a light and a camera is passed down the esophagusand into the stomach (upper endoscopy). ?A test in which a sample of tissue is taken for testing (biopsy). How is this treated? This condition may be treated with medicines. The medicines that are used vary depending on the cause of the gastritis: If the condition is caused by a bacterial infection, you may be given antibiotic medicines. If the condition is caused by too much acid in the stomach, you may be given medicines called H2 blockers, proton pump inhibitors, or antacids. Treatment may also involve stopping the use of certain medicines, such as aspirin, ibuprofen, or other NSAIDs. Follow these instructions at home: Medicines Take ymgg-xxx-ksutmrv and prescription medicines only as told by your health care provider. If you were prescribed an antibiotic medicine, take it as told by your health care provider. Do notstop taking the antibiotic even if you start to feel better. Eating and drinking Eat small, frequent meals instead of large meals. Avoid foods and drinks that make your symptoms worse. Drink enough fluid to keep your urine pale yellow. Alcohol use Do not drink alcohol if: ?Your health care provider tells you not to drink. ?You are , may be , or are planning to become . If you drink alcohol: ?Limit your use to: ?0 1 drink a day for women. ?0 2 drinks a day for men. ?Be aware of how much alcohol is in your drink. In the [place] one drink equals one 12 oz bottle of beer (355 mL), one 5 oz glass of wine (148 mL), or one 1 oz glass of hard liquor (44 mL). General instructions Talk with your health care provider about ways to manage stress, such as getting regular exercise or practicing deep breathing, meditation, or yoga. Do not use any products that contain nicotine or tobacco, such as cigarettes and e-cigarettes. If you need help quitting, ask your health care provider. Keep all follow-up visits as told by your health care provider. This is important. Contact a health care provider if: Your symptoms get worse. Your symptoms return after treatment. Get help right away if: You vomit blood or material that looks like coffee grounds. You have black or dark red stools. You are unable to keep fluids down. Your abdominal pain gets worse. You have a fever. You do not feel better after one week. Summary Gastritis is inflammation of the lining of the stomach that can occur suddenly (acute) or develop slowly over time (chronic). This condition is diagnosed with a medical history, a physical exam, or tests. This condition may be treated with medicines to treat infection or medicines to reduce the amount of acid in your stomach. Follow your health care provider's instructions about taking medicines, making changes to your diet, and knowing when to call for help. This information is not intended to replace advice given to you by your health care provider. Make sure you discuss any questions you have with your health care provider. Document Released: 02/06/2002 Document Revised: 07/02/2018 Document Reviewed: 07/02/2018 [employer] Patient Education 2020 [employer]. Follow Up Care 06/14/2021 12:44:31 With:TOSHIA BENTON, LORAINE Owen, [facility] Address: [address] [place] [address]. [address] [place] [address] When:3 months Comments:Elevated liver enzyme. [facility] 04-20-2022 Evaluation + Plan note Future Scheduled Tests Laboratory* Fecal WBC Lactoferrin 06/15/21 * Giardia lamblia, Direct Detection EIA 06/15/21 * O & P Exam, Routine 06/15/21 * Clostridium difficile by PCR 06/15/21 * Enteric Panel by PCR 06/15/21 [facility]04-20-2022 Evaluation + Plan note Future Scheduled Tests Laboratory* Fecal WBC Lactoferrin 06/15/21 * Giardia lamblia, Direct Detection EIA 06/15/21 * O & P Exam, Routine 06/15/21 * Clostridium difficile by PCR 06/15/21 * Enteric Panel by PCR 06/15/21 [facility] 04-20-2022 Evaluation + Plan note Future Scheduled Tests Laboratory* Fecal WBC Lactoferrin 06/15/21 * Giardia lamblia, Direct Detection EIA 06/15/21 * O & P Exam, Routine 06/15/21 * Clostridium difficile by PCR 06/15/21 * Enteric Panel by PCR 06/15/21 Radiology* XR Hand 3+ Views Left 10/24/21 [facility] 04-20-2022 Evaluation note* Encounter Date Diagnosis Assessment Notes Treatment Notes Treatment Clinical Notes May, Cough (ICD-10 - R05.9) May, Influenza A (ICD-10 - J10.1) She is positive for flu but outside treatment window for Tamiflu. She was educated on supportive care such as rest, increasing fluids, advancing diet as tolerated, good handwashing, OTC medication for symptoms relief. She was advised to continue to use albuterol as needed. She was educated worsening symptoms such as fever shortness of breath, she was advised to be evaluated if the symptoms were to develop. She will follow-up in the office if symptoms do not resolve. [employer] Other 01-05-2022 Evaluation note* Encounter Date Diagnosis Assessment Notes Treatment Notes Treatment Clinical Notes Feb, Cough (ICD-10 - R05.9) [employer] Other 09-29-2021 Evaluation note* Encounter Date Diagnosis Assessment Notes Treatment Notes Treatment Clinical Notes Oct, Toe fracture, left (ICD-10 - S92.912A) Foot fracture home care material was printed OARRS report checked. Opioid risk, SE and adverse reactions were discussed in detail with patient, up to cardiac and respiratory distress and addiction. Patient to use tramadol only as directed as needed for severe pain. Otherwise alternate between Tylenol and naproxen as directed. RICE therapy discussed. Continue using post-op shoe, but as she is still having pain with ambulaiton I recommended she contact ortho office and ask for pneumo boot, she states that she cannot use crutches. She was provided with work note for sit down duties only. She will be following-up with ortho. Oct, Anaphylactic reaction to bee sting (ICD-10 - T63.441A) Hx of bee anaphylaxis. Area is localized, no systemic sx or infection at this time, airway patent, breahting normal. Advised patient to have epi on hand in case of future stings. Follow-up if any future reactions occur. Oct, Asthma (ICD-10 - J45.909) Patient requesting refill of breo. Asthma remains well controlled on current regimen. [employer] Other 08-17-2021 Evaluation note* Encounter Date Diagnosis Assessment Notes Treatment Notes Treatment Clinical Notes Sep, Carpal tunnel syndrome (ICD-10 - G56.00) Rx given for cock up wrist splints to wear at night. Advised if not improving over next 2-4 W and would send to ortho for possible injections. [employer] Other Evaluation + Plan note Future Appointments Appointment Date:06/15/2021 12:20:00 PM Scheduled Provider:Diandra Rahman CNP Location:[facility] Digestive Health Appointment Type:BADH Follow Up [facility] Evaluation + Plan note Future Appointments Appointment Date:06/28/2021 11:00:00 AM Scheduled Provider: Location:[facility] Appointment Type:Surgery PAT COVID Testing Future Scheduled Tests Laboratory* Fecal WBC Lactoferrin 06/15/21 * Giardia lamblia, Direct Detection EIA 06/15/21 * O & P Exam, Routine 06/15/21 * Clostridium difficile by PCR 06/15/21 * Enteric Panel by PCR 06/15/21 Radiology* US Abdomen Complete 06/15/21 [facility] evaluxwgdu noteNo InformationNort [employer] Other evaluation noteNo assessment information available [facility] Work Phone: evaluation note* Diagnosis Radicular pain of right upper extremity- Primary Acute pain of right shoulder documented in this encounter [facility]* Diagnosis Pelvic pain in female Unspecified symptom associated with female genital organs Menometrorrhagia Excessive or frequent menstruation Dysmenorrhea Dyspareunia, female Left ovarian cyst Other and unspecified ovarian cyst documented in this encounter [facility] HealthcareHistory general Narrative - Reported* Type Description Date Medical History Ectopic Medical History asthma Medical History abdominal adhesions Medical History chronic stomach pain Medical History ADHD Medical History Bi-polar Surgical History expl lap, salpingectomy for rt ectopic Surgical History GALLBLADDER Surgical History TONSILLECTOMY Hospitalization History 2008 Hospitalization History SEE ABOVE Hospitalization History asthma, bronchitis Hospitalization History asthma, bronchitis [employer] Other History general Narrative - ReportedNoSolidmation Other Hiscsrb general Narrative - Reported* Type Description Date Medical History Ectopic Medical History asthma Medical History abdominal adhesions Medical History chronic stomach pain Medical History ADHD Medical History Bi-polar Medical History Seizures Surgical History expl lap, salpingectomy for rt ectopic Surgical History GALLBLADDER Surgical History TONSILLECTOMY Hospitalization History 2008 Hospitalization History SEE ABOVE Hospitalization History asthma, bronchitis Hospitalization History asthma, bronchitis [facility] Other History general Narrative - Reported* Type Description Date Medical History Ectopic Medical History asthma Medical History abdominal adhesions Medical History chronic stomach pain Medical History ADHD Medical History Bi-polar Medical History Seizures Medical History Depression Surgical History expl lap, salpingectomy for rt ectopic Surgical History GALLBLADDER Surgical History TONSILLECTOMY Hospitalization History 2007 Hospitalization History SEE ABOVE Hospitalization History asthma, bronchitis Hospitalization History asthma, bronchitis Hospitalization History Psyciatric-depression, s uicidal 03/17/22 [facility] Other Hospital course Narrative No data available for this section [facility] Hospital Discharge instructions No data available for this section [facility] Hospital Discharge instructions Additional Instructions Ice to sore areas Rest ice elevate your ankle Wear the Aircast for support stability Take the ketorolac every 6 hours for pain You can take the tizanidine muscle relaxer 3 times a day for pain Follow-up with family doctor for recheck Return to the ER for worsening pain additional injuries or any other concerns [facility] Work Phone: Hospital Discharge instructions Additional Instructions Follow up with your primary care doctor and OB-COILER Return to the ED if you develop worsening symptoms or [facility] Work Phone: Hospital Discharge instructions Additional Instructions DISCHARGE INSTRUCTIONS FOR OUTPATIENT LAPAROSCOPY Take it easy the rest of the day. You have received a general anesthetic and injections to help you relax during the procedure. They will not wear off for several hours. Do not drive a car for at least 12 hours and be sure all medications have worn off before you do. Avoid all alcohol and beer the day of your surgery. ACTIVITIES -There are no restrictions on your normal activities. You will receive a prescription for pain pills that you may take at home if needed. Generally, you may expect to go back to work in 3 - 7 days unless you have received other instructions. You should shower daily and practice good personal habits to offset the chance of infection. Avoid intercourse for 1 week after your surgery. You may notice some neck and shoulder discomfort for 24-48 hours after surgery. BLEEDING -Bleeding should be minimal after a laparoscopy. You may require the use of a light pad for a few days. You may use Tampax if you wish but be sure to change often. If you have any heavy vaginal bleeding, call the office. ABDOMINAL DRESSINGS -The sutures that have been put into the abdominal incisions will dissolve. They do not need to be removed. Bandaids or glue may be applied after surgery. Glue may be peeled off in 1 week if it has not come off on its own. Be sure to keep those areas clean and dry in order to prevent infection. Notify the office of any bleeding, redness or swelling at the incision sites. You may experience some mild discomfort for a few days. FOLLOW UP -If within the first 2 weeks you notice any chills, fever, worsening pain or change in the odor, or character of your drainage, you may be developing an infection and you should call the office. Call or go to the Emergency Room for shortness of breath, pain in your calfs, or unusual swelling in your legs. You should be seen in the office 2 weeks after your surgery. Please call [phone] from 9 A.M. to 4 P.M. for an appointment. [ ][facility] Work Phone: Hospital Discharge instructions Additional Instructions Follow-up with your primary care doctor Return to ED if develop worsening symptoms or concernsGen[facility] Work Phone: Hospital Discharge instructions Additional Instructions Take Bactrim as prescribed for your Kidney infection. Increase your intake of fluids and rest. Take Zofran as prescribed for nausea vomiting. Follow-up with PCP for recheck next few days.[facility] Work Phone: Hospital Discharge instructions Additional Instructions Take ciprofloxacin as prescribed for your kidney infection. Follow-up with your PCP for recheck in the next few days. Take Motrin Tylenol as needed for painGen[facility] Work Phone: Progress note No data available for this section [facility] NarrativeER f/u [facility], med refills, [facility] Other Discharge Instructions * Instructions* Harvey Palacio MD - 12/19/2018 Please feel free return to the hospital if your symptoms worsen or any new concerning symptoms develop. Follow-up with your primary care physician as needed for all other the concerns. Please take Tylenol Motrin for pain as well as your Keflex for your urinary tract infection. Pleasefollow-up with your primary care physician and/or your TEST DESK OPERATOR with regards to your ovarian cyst. Zofran as needed for nausea. If you are unable to tolerate oral intake please return to the emergency department. * Attachments The following attachments cannot be sent through Care Everywhere. * Ovarian Cyst: Ruptured (Swazi) * Pyelonephritis (Swazi) documented in this encounter* Instructions* Demetri Judge, - 01/14/2019 You are offered admission however you declined stating that he wanted to go home. Please continue taking her home medications as prescribed. Return to ER anytime should you change your mind. Contact your PCP to schedule follow-up appointment. Continue taking your home medications as prescribed. Contact your PCP to schedule follow-up appointment. PLEASE RETURN TO THE EMERGENCY DEPARTMENT IMMEDIATELY for worsening symptoms, or if you develop anyconcerning symptoms such as: high fever not relieved by acetaminophen (Tylenol) and/or ibuprofen (Motrin), chills, shortness of breath, chest pain, persistent nausea and/or vomiting, vomiting any blood, blood in your stool, numbness, weakness or tingling in the arms or legs or change in color of the extremities, changes in mental status, persistent headache, blurry vision. * Attachments The following attachments cannot be sent through Care Everywhere. * Nausea and Vomiting (Swazi) documented in this encounter* Instructions* Darrion Hooper, - 10/29/2019 THANK YOU!!! From [facility] Emergency Department On behalf of the Emergency Department staff at [facility]'s Emergency Department, I would like to thank you for giving [facility] the opportunity to address your health care needs and concerns. We hope that during your visit, our service was delivered in a professional and caring manner. Please keep Edwina Santoyo in mind as we walk with you down the path to your own personal wellness. Please expect an automated phone call from so we can ask a few questions about your health and progress. Based on your answers, a clinician may call you back to offer help and instructions. If you notice any concerning symptoms please return to the ED immediately. These can include but are not limited to: fevers, chills, shortness of breath, vomiting, weakness of the extremities, changes in your mental status, numbness, pale extremities, or chest pain. Your seen and evaluated the emergency department for right arm pain. X-rays of the right arm, shoulder, elbow and wrist were unremarkable for fracture. Recommend rest, ice, compression and elevation.You are given a sling to wear for comfort. Do not wear this longer than 24 to 48 hours as this could result in frozen shoulder. Please follow-up with the PCP in the next 3 to 4 days. Please call to schedule this appointment. Recommend alternate doses of Tylenol and Motrin as needed for pain. You may also try [id number] lidocaine patch. * Attachments The following attachments cannot be sent through Care Everywhere. * RICE: General Info (Swazi) documented in this encounter* Instructions* Phi Mcleod MD - 12/15/2019 Take your antibiotics twice daily for 10 days Take Zofran for nausea/vomiting as needed. Get you blood work done in 2 weeks Take Vitamin D every week for 8 weeks Follow up with PCP in 2 weeks Urology: Please call the office for follow up if needed. Continue antibiotics as prescribed. * Attachments The following attachments cannot be sent through Care Everywhere. * Kidney Stone (Swazi) documented in this encounter* Instructions* Dale Montoya MD - 03/10/2020 Return to this emergency room immediately if your symptoms persist, worsen or if new ones form. Make sure you follow-up with your primary care doctor within the next 1-2 business days. * Attachments The following attachments cannot be sent through Care Everywhere. 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 * Discharge Instr - Other Orders* Andrade Fleming DO - 01/12/2019 2:10 PM EST Emergency Department [place] [id number] 01/12/2019 Patient: Tracie Samuels Date of : [birth year]2019 To Whom It May Concern: Tracie Samuels was seen and treated in the hospital from 01/08/2019-01/12/2019. She may return to work on 01/13/2019. Thank you for your understanding, Signature: Andrade Fleming Jr., DO, MS, RD PGY-1 * Additional Instructions* Darrion Hooper DO - 01/12/2019 Please feel free return to the hospital if your symptoms worsen or any new concerning symptoms develop. Follow-up with your primary care physician as needed for all other the concerns. Kidney Infection: Care Instructions Your Care Instructions A kidney infection (pyelonephritis) is a type of urinary tract infection, or UTI. Most UTIs are bladder infections. Kidney infections tend to make people much sicker than bladder infections do. A kidney infection is also more serious because it can cause lasting damage if it is not treated quickly. Follow-up care is a mendoza part of your treatment and safety. Be sure to make and go to all appointments, and call your doctor if you are having problems. It's also a good idea to know your test resultsand keep a list of the medicines you take. How can you care for yourself at home? Take your antibiotics as directed. Do not stop taking them just because you feel better. You need to take the full course of antibiotics. Drink plenty of water, enough so that your urine is light yellow or clear like water. This may helpwash out bacteria that are causing the infection. If you have kidney, heart, or liver disease and have to limit fluids, talk with your doctor before you increase the amount of fluids you drink. Urinate often. Try to empty your bladder each time. To relieve pain, take a hot shower or lay a heating pad (set on low) over your lower belly. Never go to sleep with a heating pad in place. Put a thin cloth between the heating pad and your skin. To help prevent kidney infections Drink plenty of water each day. This helps you urinate often, which clears bacteria from your system. If you have kidney, heart, or liver disease and have to limit fluids, talk with your doctor before you increase the amount of fluids you drink. Urinate when you have the urge. Do not hold your urine for a long time. Urinate before you go to sleep. If you have symptoms of a bladder infection, such as burning when you urinate or having to urinate often, call your doctor so you can treat the problem before it gets worse. If you do not treat a bladder infection quickly, it can spread to the kidney. Men should keep the tip of the penis clean. If you are a woman, keep these ideas in mind: Urinate right after you have sex. Change sanitary pads often. Avoid douches, feminine hygiene sprays, and other feminine hygiene products that have deodorants. After going to the bathroom, wipe from front to back. When should you call for help? Call your doctor now or seek immediate medical care if: You have symptoms that a kidney infection is getting worse. These may include: ? Pain or burning when you urinate. ? A frequent need to urinate without being able to pass much urine. ? Pain in the flank, which is just below the rib cage and above the waist on either side of the back. ? Blood in the urine. ? A fever. You are vomiting or nauseated. Watch closely for changes in your health, and be sure to contact your doctor if: You do not get better as expected. Where can you learn more? Go to [email or web address] and sign in to your [employer] account. Enter E877 in the Search Health Information box to learn more about Kidney Infection: Care Instructions. If you do not have an account, please click on the Sign Up Now link. Current as of: December 26, 2017 Content Version: 12.1 8617-2751 [employer]. Care instructions adapted under license by [employer]. If youhave questions about a medical condition or this instruction, always ask your healthcare professional. [employer] disclaims any warranty or liability for your use of this information. * Attachments The following attachments cannot be sent through Care Everywhere. * Pyelonephritis (Swazi) * levofloxacin (oral) (Swazi) * metronidazole (Swazi) * acetaminophen and oxycodone (Swazi) documented in this encounter Assessments Diagnosis Pyelonephritis- Primary Pyelonephritis, unspecified Cyst of left ovary Other and unspecified ovarian cyst Diagnosis Flank pain- Primary Abdominal pain, unspecified site Intractable nausea and vomiting Persistent vomiting Intractable vomiting Persistent vomiting Diagnosis Right arm pain Pain in limb Diagnosis Acute pyelonephritis Acute pyelonephritis without lesion of renal medullary necrosis Complicated UTI (urinary tract infection) Urinary tract infection, site not specified Acute cystitis without hematuria Acute cystitis Intractable vomiting Persistent vomiting Obesity Obesity, unspecified Vitamin D deficiency Unspecified vitamin D deficiency Diagnosis Acute pyelonephritis Acute pyelonephritis without lesion of renal medullary necrosis Complicated UTI (urinary tract infection) Urinary tract infection, site not specified Diagnosis Undifferentiated abdominal pain- Primary Diagnosis Pyelonephritis- Primary Pyelonephritis, unspecified BV (bacterial vaginosis) Vaginitis and vulvovaginitis, unspecified Bandemia Bacterial vaginosis Vaginitis and vulvovaginitis, unspecified Complicated UTI (urinary tract infection) Urinary tract infection, site not specified Sepsis (HCC) Acute vaginitis Vaginitis and vulvovaginitis, unspecified Advance Directives Documents on File Type Date Recorded Patient Certified Registered Nurse Anesthetist Expl anation Advance Directives and Living Will Power of Printing Film Stripper Latest Code Status on File Code Status Date Activated Date Inactivated Comments Full Code 12/19/2014 8:30 PM 12/22/2014 9:35 AM Latest Code Status on File Code Status Date Activated Date Inactivated Comments Full Code 01/09/2019 3:25 AM 01/12/2019 5:55 PM Full Code 12/19/2014 8:30 PM 12/22/2014 9:35 AM Documents on File Type Date Recorded Patient Certified Registered Nurse Anesthetist Expl anation ACP-Advance Directive ACP-Power of Printing Film Stripper Latest Code Status on File Code Status Date Activated Date Inactivated Comments Full Code 12/14/2019 3:31 AM Full Code 01/09/2019 3:25 AM 01/12/2019 5:55 PM Latest Code Status on File Code Status Date Activated Date Inactivated Comments Full Code 12/14/2019 3:31 AM 12/17/2019 3:42 PM Latest Code Status on File Code Status Date Activated Date Inactivated Comments Full Code 01/09/2019 3:25 AM Advance Directive Response Recorded Date/ Time Advance Directives No November 26, 2016 12:32pm Advance Directive Response Recorded Date/ Time Advance Directives No November 26, 2016 11:32am Summary Purpose Family History Relationship Condition Age at Onset Recorded Date/T emilie family member Malignant neoplasm Unknown History of ovarian cancer Unknown family member Heart disease Unknown Family history of lung cancer Unknown father Diabetes mellitus Unknown Heart disease Unknown Malignant neoplasm Unknown grandparent Heart disease Unknown Diabetes mellitus Unknown grandparent Malignant neoplasm Unknown Malignant neoplasm of stomach Unknown grandparent Unknown grandparent Diabetes mellitus Unknown Unknown Not Specified Malignant neoplasm Unknown sister Malignant neoplasm Unknown Relationship Condition Age at Onset Recorded Date/T emilie Not Specified Malignant neoplasm Unknown family member History of ovarian cancer Unknown family member Heart disease Unknown family member Family history of lung cancer Unknown father Diabetes mellitus Unknown Heart disease Unknown grandparent Diabetes mellitus Unknown grandparent Malignant neoplasm of stomach Unknown sister History of ovarian cancer Unknown Relationship Condition Age at Onset Recorded Date/T emilie Not Specified Malignant neoplasm Unknown aunt History of ovarian cancer Unknown aunt Heart disease Unknown aunt Family history of lung cancer Unknown father Diabetes mellitus Unknown Heart disease Unknown grandparent Diabetes mellitus Unknown grandparent Malignant neoplasm of stomach Unknown sister History of ovarian cancer Unknown History of Present Illness * Jennifer Gaston RN - 12/17/2019 1:33 PM EDT Discharge order received. IV removed. ANGELINA Gonzalez went over discharge instructions with pt including follow up appointments and medications. Pt verbalized understanding. Pt ambulated off unit with all belongings. * Lisa Milian RN - 12/17/2019 9:16 AM EDT Pt requesting to see a different doctor than the one she spoke with this morning. She requested . She also stated she had never taken ultram before, but when we offered it about 15 min later, she said it doesn't work. Physician economics department chair notified via perfect serve. * Tracie Rausch RN - 12/17/2019 12:34 AM EDT Pt refusing telemetry, states that the telemetry patches are making her chest all itchy . Pt education provided. Internal med on-call resident notified via perfect serve. * Ryan Nielson MD - 12/16/2019 12:22 PM EDT [facility] [place] Internal Medicine Teaching Residency Program Inpatient Daily Progress Note Patient: Tracie Samuels Date of : 1990 Acct: [id number] Room: [facility]0/0440-01 Admit date: 12/13/2019 Today's date: 12/16/19 Number of days in the hospital: 2 SUBJECTIVE Admitting Diagnosis: Acute cystitis without hematuria CC: flank pain Pt examined at bedside. Chart & results reviewed. Patient still in pain on the left flank, she is starting to eat, nausea is improved ROS: Constitutional: negative for chills, fevers, sweats Respiratory: negative for cough, dyspnea on exertion, hemoptysis, shortness of breath, wheezing Cardiovascular: negative for chest pain, chest pressure/discomfort, lower extremity edema, palpitations Gastrointestinal: negative for abdominal pain, constipation, diarrhea, nausea, vomiting Neurological: negative for dizziness, headache BRIEF HISTORY 29-year-old female with past medical history as given, came in because of left flank pain. Patient has been having symptoms for the last few days. She was admitted few months ago for pyelonephritis and was given antibiotics at that time. We will give the patient on IV Rocephin and follow-up with culture and sensitivities OBJECTIVE Vital Signs: BP (!) 103/58 Pulse 62 Temp 98.4 F (36.9 C) (Oral) Resp 18 Ht 4' 11 (1.499 m) Wt 219 lb 9.6 oz (99.6 kg) SpO2 98% BMI 44.35 kg/m Temp (24hrs), Av.2 F (36.8 C), Min:98 F (36.7 C), Max:98.4 F (36.9 C) In: 1288 Out: 655 [Urine:655] Physical Exam: Constitutional: This is a well developed, well nourished, Greater than 40 - Morbid Obesity / Extreme Obesity / Grade III 29 y.o. year old female who is alert, oriented, cooperative and in no apparentdistress. Head:normocephalic and atraumatic. Respiratory: Chest was symmetrical without dullness to percussion. Breath sounds bilaterally were clear to auscultation. There were no wheezes, rhonchi or rales. There is no intercostal retraction oruse of accessory muscles. No egophony noted. Cardiovascular: Regular without murmur, clicks, gallops or rubs. Abdomen: Slightly rounded and soft without organomegaly. No rebound, rigidity or guarding was appreciated. Lymphatic: No lymphadenopathy. Musculoskeletal: Normal curvature of the spine. No gross muscle weakness. Extremities: No lower extremity edema, ulcerations, tenderness, varicosities or erythema. Muscle size, tone and strength are normal. No involuntary movements are noted. Skin: Warm and dry. Good color, turgor and pigmentation. No lesions or scars. No cyanosis or clubbing Medications: Scheduled Medications: cefTRIAXone (ROCEPHIN) IV 2 g Intravenous Q24H vitamin D 50,000 Units Oral Weekly pantoprazole 40 mg Intravenous BID And sodium chloride (PF) 10 mL Intravenous BID sodium chloride flush 10 mL Intravenous 2 times per day enoxaparin 40 mg Subcutaneous Daily lidocaine 1 patch Transdermal Daily Continuous Infusions: lactated ringers 100 mL/hr at 12/15/192115 PRN Medicationsalbuterol sulfate HFA, 2 puff, PRN ondansetron, 4 mg, Q8H PRN sodium chloride flush, 10 mL, PRN acetaminophen, 650 mg, Q6H PRN Or acetaminophen, 650 mg, Q6H PRN polyethylene glycol, 17 g, Daily PRN promethazine, 12.5 mg, Q6H PRN Or ondansetron, 4 mg, Q6H PRN HYDROmorphone, 1 mg, Q3H PRN oxyCODONE-acetaminophen, 1 tablet, Q4H PRN Diagnostic Labs: CBC: Recent Labs 12/14/1952012/15/19 0554 12/16/19 0616 WBC 11.4* 10.6 9.8 RBC 3.93* 3.47* 3.63* HGB 11.5* 10.2* 10.6* HCT 37.2 33.6* 34.6* MCV 94.7 96.8 95.3 RDW 12.6 12.7 12.1 PLT 238 213 199 BMP: Recent Labs 12/14/19 0512/15/19 0554 12/16/19 0616 NA 138 137 136 K 3.8 3.6* 4.1 CL 106 105 105 CO2 24 22 22 BUN 15 10 7 CREATININE 0.74 0.63 0.63 ASSESSMENT & PLAN 1. Complicated UTI (urinary tract infection). Continue Rocephin 1 g IV every 24 hours, Patient started on Zofran 4 mg p.o. every 8 as needed for nausea, pain management 2. Morbid Obesity. Counseled 3. Chronic anemia, possibly due to iron deficiency. Outpatient work up 4. Discharge planning - home tomorrow Attending Physician Statement I have discussed the case, including pertinent history and exam findings with the resident and the team. I have seen and examined the patient and the mendoza elements of the encounter have been performedby me. I agree with the assessment, plan and orders as documented by the resident. Ryan Nielson MD Attending Physician, Internal Medicine Residency Program 12/16/2019, 12:23 PM * Isaac Espinal, PT - 12/15/2019 2:31 PM EDT Physical Therapy Facility/Department: [address] ONC/MED SURG Initial Assessment NAME: Tracie Samuels : 1990 Date of Service: 12/15/2019 Chief Complaint Patient presents with Flank Pain left Discharge Recommendations: Further therapy recommended at discharge. PT Equipment Recommendations Other: Continue to assess; pt reports having no AD at home available Assessment Body structures, Functions, Activity limitations: Decreased functional mobility ;Decreased balance;Decreased strength;Decreased endurance Assessment: Pt ambulated 45' x2 with RW and CGA with chair follow. Pt required ~2 minute seated rest break half way d/t L flank pain and decreased endurance. Continued acute physical therapy is necessary to address deficits. Prognosis: Good Decision Making: Medium Complexity PT Education: General Safety;Gait Training;PT Role;Equipment;Functional Mobility Training REQUIRES PT FOLLOW UP: Yes Activity Tolerance Activity Tolerance: Patient Tolerated treatment well;Patient limited by pain;Patient limited by endurance;Patient limited by fatigue Patient Diagnosis(es): The encounter diagnosis was Acute pyelonephritis. has a past medical history of Adult ADHD, Asthma,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 last month was seen in the emergency room, was given a dose of ceftriaxone and about 7 to 10 days of Keflex p.o. she seems to have done well during that antibiotic course but over the last 3 4 days when she is off antibiotic, she developed that above pain. Sexually active-vaginal swab showed positive Gardnerella 01/08 Pelvic ultrasound is benign for the COILER tract Recent CT AP end of November 2018 Peripherally enhancing left adnexal structure likely a corpus luteum with some associated free pelvic fluid suspicious for ruptured cyst, potentially a source of left lower quadrant pain. Collapsed urinary bladder with bladder wall thickening. Cystitis not excluded. Correlation with urinalysis is advised. Imaging of the kidney this admission. CURRENT EVALUATION : 01/12/2019 Afebrile VS stable The patient seen and evaluated at bedside. Patient is better with no new acute issues or concerns today.Lt flank pain better. Patient does not have any fevers, chills, cough, shortness of breath, chest pains or palpitations. ID castle patient ready for discharge on po meds. Summary of relevant labs:01/12/2019 Labs: w 17 - crp 6 Micro: Urine analysis shows Gardnerella vaginalis POS cervix PCR chlamydia trachomatis U cx GBS Imaging: CT AP 01/10/19 1. Free fluid again seen in the pelvis is not significantly changed in volume. Previously noted left ovarian cyst is no longer present and may have ruptured. 2. Status post cholecystectomy 3. The appendix is of normal caliber and no inflammatory changes are seen surrounding the appendix. There is some fluid in the right pericolic gutter in the region of the tip of the appendix. 4. 2 cm right ovarian cyst. 5. No obstructive uropathy. No inflammatory changes seen surrounding the kidneys. The kidneys enhance normally. Pelvic US neg I have personally reviewed the past medical history, past surgical history, medications, social history, and family history, and I haveupdated the database accordingly. Past Medical History: Past Medical History: Diagnosis Date Adult ADHD Asthma Bipolar disorder (HCC) Diabetes mellitus (HCC) Hypertension Migraine Obesity Seizures (HCC) Past Surgical History: Past Surgical History: Procedure Laterality Date CHOLECYSTECTOMY LAPAROSCOPY TUBAL LIGATION Medications: acetaminophen 650 mg Oral Q4H docusate sodium 100 mg Oral Daily levofloxacin 500 mg Oral Daily sodium chloride flush 10 mL Intravenous 2 times per day enoxaparin 40 mg Subcutaneous Daily oxyCODONE-acetaminophen 1 tablet Oral Once metroNIDAZOLE 500 mg Oral 2 times per day Social History: Social History Socioeconomic History Marital status: Single Spouse name: Not on file Number of children: Not on file Years of education: Not on file Highest education level: Not on file Occupational History Not on file Social Needs Financial resource strain: Not on file Food insecurity: Worry: Not on file Inability: Not on file Transportation needs: Medical: Not on file Non-medical: Not on file Tobacco Use Smoking status: Current Every Day Smoker Types: Cigars Smokeless tobacco: Never Used Substance and Sexual Activity Alcohol use: No Drug use: No Sexual activity: Not on file Lifestyle Physical activity: Days per week: Not on file Minutes per session: Not on file Stress: Not on file Relationships Social connections: Talks on phone: Not on file Gets together: Not on file Attends hoahaoism service: Not on file Active member of club or organization: Not on file Attends meetings of clubs or organizations: Not on file Relationship status: Not on file Intimate partner violence: Fear of current or ex partner: Not on file Emotionally abused: Not on file Physically abused: Not on file Forced sexual activity: Not on file Other Topics Concern Not on file Social History Narrative Not on file Family History: No family history on file. Allergies: Depakote [divalproex sodium]; Flexeril [cyclobenzaprine]; Naproxen; and Seroquel [quetiapine fumarate] Review of Systems: Review of Systems Constitutional: Positive for activity change. Negative for appetite change and chills. HENT: Negative for congestion. Eyes: Negative for pain. Respiratory: Negative for choking and shortness of breath. Cardiovascular: Negative for leg swelling. Gastrointestinal: Negative for abdominal pain. Endocrine: Negative for polydipsia and polyphagia. Genitourinary: Negative for dysuria and urgency. Musculoskeletal: Negative for arthralgias. Skin: Negative for color change. Allergic/Immunologic: Negative for food allergies. Neurological: Negative for dizziness and headaches. Hematological: Negative for adenopathy. Psychiatric/Behavioral: Negative for confusion. Physical Examination : Patient Vitals for the past 8 hrs: BP Temp Temp src Pulse Resp SpO2 01/12/19 0747 (!) 117/47 98.8 F (37.1 C) Oral 61 16 98 % Physical Exam Constitutional: General: She is not in acute distress. Appearance: Normal appearance. She is not ill-appearing or diaphoretic. HENT: Head: Normocephalic and atraumatic. Nose: Nose normal. No congestion. Mouth/Throat: Mouth: Mucous membranes are dry. Eyes: General: No scleral icterus. Conjunctiva/sclera: Conjunctivae normal. Pupils: Pupils are equal, round, and reactive to light. Neck: Musculoskeletal: Neck supple. No neck rigidity or muscular tenderness. Cardiovascular: Rate and Rhythm: Normal rate and regular rhythm. Heart sounds: Normal heart sounds. No murmur. Pulmonary: Effort: Pulmonary effort is normal. Breath sounds: Normal breath sounds. Abdominal: General: Abdomen is flat. Bowel sounds are normal. There is no distension. Palpations: Abdomen is soft. There is no mass. Tenderness: There is tenderness. Genitourinary: Comments: Left CVA tender and left ant lower abd tender Has been vomiting Musculoskeletal: General: No swelling or tenderness. Skin: General: Skin is warm and dry. Neurological: General: No focal deficit present. Mental Status: She is alert and oriented to person, place, and time. Psychiatric: Mood and Affect: Mood normal. Behavior: Behavior normal. Comments: Seems in pain Medical Decision Making: I have independently reviewed/ordered the following labs: CBC with Differential: Recent Labs 01/12/19 0731 WBC 9.4 HGB 10.9* HCT 34.9* PLT 184 LYMPHOPCT 41 MONOPCT 7 BMP: Recent Labs 01/12/19 0731 NA 139 K 3.9 CL 108* CO2 21 BUN 7 CREATININE 0.64 Hepatic Function Panel: No results for input(s): PROT, LABALBU, BILIDIR, IBILI, BILITOT, ALKPHOS, ALT, AST in the last 72 hours. No results for input(s): RPR in the last 72 hours. No results for input(s): HIV in the last 72 hours. No results for input(s): BC in the last 72 hours. Lab Results Component Value Date CREATININE 0.64 01/12/2019 GLUCOSE 77 01/12/2019 GLUCOSE 116 04/18/2011 Detailed results: C. trachomatis DNA C.trachomatis N.gonorrhoeae DNA Collected: 01/08/192111 Resulting lab: [email or web address] Reference range: NEGATIVE Value: POSITIVE: CHLAMYDIA TRACHOMATIS DNA detected by nucleic acid amplification.Abnormal Comment: This test is intended for medical purposes only and is not valid for the evaluation of suspected sexual abuse or for other forensic purposes. In certain contexts, culture may be required to meet applicable laws and regulations for diagnosis of C. trachomatis and N. gonorrhoeae infections. Per 2014 CDC recommendations, this test does not include confirmation of positive results by an alternative nucleic acid target. Results reported to the appropriate Health Department Thank you for allowing us to participate in the care of this patient.Please call with questions. This note is created with the assistance of a speech recognition program. While intending to generate adocument that actually reflects the content of the visit, the document can still have some errors including those of syntax and sound a like substitutions which may escape proof reading. It such instances, actual meaningcan be extrapolated by contextual diversion. Ignacio Ward MD Office: Perfect serve / office [phone] * Gill Gaines RN - 01/12/2019 12:20 PM EST Pt tolerated toast and tomatoe soup no increase in pain or no nausea, pt wants to go home perfect served Dr Chacko to see if ok for dc from ID standpoint * Gill Gaines RN - 01/12/2019 10:31 AM EST pt had 2 bites of pudding and yogart. pt states it causes her stomach to burn Pt tolerating clear liquids juice water broth. pt states she wants to go home Dr ANTONIO rounded today and stated ok to go iftolerating liquids RUKHSANAV resident notified * Gill Gaines RN - 01/12/2019 9:21 AM EST Tolerated liquids and pudding and yoguart * Humberto Bishop MD - 01/12/2019 5:13 AM EST CDU Daily Progress Note Attending Physician Pt Name: Tracie Samuels Birthdate 1990 Date of evaluation: 01/12/19 I performed a history and physical examination of the patient and discussed management with the resident. I reviewed the resident s note and agree with the documented findings and plan of care. Any areas of disagreement are noted on the chart. I was personally present for the mendoza portions of any procedures. I have documented in the chart those procedures where I was not present during the mendoza portions. I have reviewed the emergency nurses triage note. I agree with the chief complaint, past medical history, past surgical history, allergies, medications, social and family history as documented unless otherwise noted below. Documentation of the HPI, Physical Exam and Medical Decision Making per formed by medical students or scribes is based on my personal performance of the HPI, PE and MDM. For Physician Coil Placer/ Nurse Practitioner cases/documentation I have personally evaluated this patient and have completed at least one if not all mendoza elements of the E/M (history, physical exam, and MDM). Additional findings are as noted. The Family History, Social History and Review of Systems are unchanged from the previous day. No significant events overnight. Was unable to take PO yesterday without vomiting and vomited up streaks of blood. Will get CBC, BMPand CRP today. She is feeling better today, plan for discharge on Levoquin if able to take PO. HUMBERTO BISHOP MD Attending Physician Critical Decision Unit * Ignacio Ward MD - 01/11/2019 5:34 PM EST [facility] - Progress Note admission date 01/08/2019 reason for consultation: Recurrent pyelonephritis Impression : Current: Bacterial vaginosis Left flank pain Leukocytosis UTI - GBS Chlamydia vaginitis Chills rigors Sepsis Recent left ovarian ruptured cyst-December 19, 2018 Discussion / summary of stay / plan of care Recent history of left flank pain treated as UTI in the ER with 1 dose of ceftriaxone and Keflex for about 7 days. Back with left flank and left lower abdominal pain stabbing and radiating to the back. Rigors associated, needed 3 days. No dysuria associated, but pyuria Recent history of abdominal pain with a ruptured ovarian cyst on CT 12/19 Pelvic ultrasound this admission is negative ? pyelonephritis or noninfectious process related of the ovaries CT AP no active disease 01/10 Pos chlamydia and pos urine GBS UTI Recommendations Levaquin 500 mg po q day , till 01/15/19 Keep Flagyl for BV - finish 5 day course - till 01/14 Pain control Infection Control Recommendations [place] Precautions Antimicrobial Stewardship Recommendations Simplification of therapy Targeted therapy Coordination ofOutpatient Care: Estimated Length of IV antimicrobials: Patient will need Midline / picc Catheter Insertion: Patient will need SNF: Patient will need outpatient wound care: History of Present Illness: Initial history: Tracie Samuels is a 28 y.o.-year-old female with left flank pain and abdominal pain ongoing for about 4 days, getting worse, stabbing. Nausea -vomiting at any pain or p.o. intake. Very miserable from the pain. She has no burning with the urine but she has a increase in the left flank pain when she urinates. The urine seems make yes she says Urine analysis upon admission shows 50-100 WBCs. Recent urine culture showed E. coli multi-sensitive to culture this time is pending Upon admission WBC was 17 but CRP is 6 She states have an episode of complicated UTI last month was seen in the emergency room, was given a dose of ceftriaxone and about 7 to 10 days of Keflex p.o. she seems to have done well during that antibiotic course but over the last 3 4 days when she is off antibiotic, she developed that above pain. Sexually active-vaginal swab showed positive Gardnerella 01/08 Pelvic ultrasound is benign for the COILER tract Recent CT AP end of November 2018 Peripherally enhancing left adnexal structure likely a corpus luteum with some associated free pelvic fluid suspicious for ruptured cyst, potentially a source of left lower quadrant pain. Collapsed urinary bladder with bladder wall thickening. Cystitis not excluded. Correlation with urinalysis is advised. Imaging of the kidney this admission. CURRENT EVALUATION : 01/11/2019 Afebrile VS stable The patient seen and evaluated at bedside. Patient is better with no new acute issues or concerns today.Lt flank pain better. Patient does not have any fevers, chills, cough, shortness of breath, chest pains or palpitations. Summary of relevant labs:01/11/2019 Labs: w 17 - 11 crp 6 Micro: Urine analysis shows Gardnerella vaginalis POS cervix PCR chlamydia trachomatis U cx GBS Imaging: CT AP 01/10/19 1. Free fluid again seen in the pelvis is not significantly changed in volume. Previously noted left ovarian cyst is no longer present and may have ruptured. 2. Status post cholecystectomy 3. The appendix is of normal caliber and no inflammatory changes are seen surrounding the appendix. There is some fluid in the right pericolic gutter in the region of the tip of the appendix. 4. 2 cm right ovarian cyst. 5. No obstructive uropathy. No inflammatory changes seen surrounding the kidneys. The kidneys enhance normally. Pelvic US neg I have personally reviewed the past medical history, past surgical history, medications, social history, and family history, and I haveupdated the database accordingly. Past Medical History: Past Medical History: Diagnosis Date Adult ADHD Asthma Bipolar disorder (HCC) Diabetes mellitus (HCC) Hypertension Migraine Obesity Seizures (HCC) Past Surgical History: Past Surgical History: Procedure Laterality Date CHOLECYSTECTOMY LAPAROSCOPY TUBAL LIGATION Medications: acetaminophen 650 mg Oral Q4H docusate sodium 100 mg Oral Daily levofloxacin 500 mg Oral Daily sodium chloride flush 10 mL Intravenous 2 times per day enoxaparin 40 mg Subcutaneous Daily oxyCODONE-acetaminophen 1 tablet Oral Once metroNIDAZOLE 500 mg Oral 2 times per day Social History: Social History Socioeconomic History Marital status: Single Spouse name: Not on file Number of children: Not on file Years of education: Not on file Highest education level: Not on file Occupational History Not on file Social Needs Financial resource strain: Not on file Food insecurity: Worry: Not on file Inability: Not on file Transportation needs: Medical: Not on file Non-medical: Not on file Tobacco Use Smoking status: Current Every Day Smoker Types: Cigars Smokeless tobacco: Never Used Substance and Sexual Activity Alcohol use: No Drug use: No Sexual activity: Not on file Lifestyle Physical activity: Days per week: Not on file Minutes per session: Not on file Stress: Not on file Relationships Social connections: Talks on phone: Not on file Gets together: Not on file Attends hoahaoism service: Not on file Active member of club or organization: Not on file Attends meetings of clubs or organizations: Not on file Relationship status: Not on file Intimate partner violence: Fear of current or ex partner: Not on file Emotionally abused: Not on file Physically abused: Not on file Forced sexual activity: Not on file Other Topics Concern Not on file Social History Narrative Not on file Family History: No family history on file. Allergies: Depakote [divalproex sodium]; Flexeril [cyclobenzaprine]; Naproxen; and Seroquel [quetiapine fumarate] Review of Systems: Review of Systems Constitutional: Positive for activity change. Negative for appetite change and chills. HENT: Negative for congestion. Eyes: Negative for pain. Respiratory: Negative for choking and shortness of breath. Cardiovascular: Negative for leg swelling. Gastrointestinal: Negative for abdominal pain. Endocrine: Negative for polydipsia and polyphagia. Genitourinary: Negative for dysuria and urgency. Musculoskeletal: Negative for arthralgias. Skin: Negative for color change. Allergic/Immunologic: Negative for food allergies. Neurological: Negative for dizziness and headaches. Hematological: Negative for adenopathy. Psychiatric/Behavioral: Negative for confusion. Physical Examination : No data found. Physical Exam Constitutional: General: She is not in acute distress. Appearance: Normal appearance. She is not ill-appearing or diaphoretic. HENT: Head: Normocephalic and atraumatic. Nose: Nose normal. No congestion. Mouth/Throat: Mouth: Mucous membranes are dry. Eyes: General: No scleral icterus. Conjunctiva/sclera: Conjunctivae normal. Pupils: Pupils are equal, round, and reactive to light. Neck: Musculoskeletal: Neck supple. No neck rigidity or muscular tenderness. Cardiovascular: Rate and Rhythm: Normal rate and regular rhythm. Heart sounds: Normal heart sounds. No murmur. Pulmonary: Effort: Pulmonary effort is normal. Breath sounds: Normal breath sounds. Abdominal: General: Abdomen is flat. Bowel sounds are normal. There is no distension. Palpations: Abdomen is soft. There is no mass. Tenderness: There is tenderness. Genitourinary: Comments: Left CVA tender and left ant lower abd tender Has been vomiting Musculoskeletal: General: No swelling or tenderness. Skin: General: Skin is warm and dry. Neurological: General: No focal deficit present. Mental Status: She is alert and oriented to person, place, and time. Psychiatric: Mood and Affect: Mood normal. Behavior: Behavior normal. Comments: Seems in pain Medical Decision Making: I have independently reviewed/ordered the following labs: CBC with Differential: Recent Labs 01/08/191907 WBC 11.6* HGB 12.2 HCT 38.2 PLT 247 BMP:No results for input(s): NA, K, CL, CO2, BUN, CREATININE, MG in the last 72 hours. Invalid input(s): CA Hepatic Function Panel: No results for input(s): PROT, LABALBU, BILIDIR, IBILI, BILITOT, ALKPHOS, ALT, AST in the last 72 hours. No results for input(s): RPR in the last 72 hours. No results for input(s): HIV in the last 72 hours. No results for input(s): BC in the last 72 hours. Lab Results Component Value Date CREATININE 0.63 12/19/2018 GLUCOSE 115 12/19/2018 GLUCOSE 116 04/18/2011 Detailed results: C. trachomatis DNA C.trachomatis N.gonorrhoeae DNA Collected: 01/08/192111 Resulting lab: [email or web address] Reference range: NEGATIVE Value: POSITIVE: CHLAMYDIA TRACHOMATIS DNA detected by nucleic acid amplification.Abnormal Comment: This test is intended for medical purposes only and is not valid for the evaluation of suspected sexual abuse or for other forensic purposes. In certain contexts, culture may be required to meet applicable laws and regulations for diagnosis of C. trachomatis and N. gonorrhoeae infections. Per 2014 CDC recommendations, this test does not include confirmation of positive results by an alternative nucleic acid target. Results reported to the appropriate Health Department Thank you for allowing us to participate in the care of this patient.Please call with questions. This note is created with the assistance of a speech recognition program. While intending to generate adocument that actually reflects the content of the visit, the document can still have some errors including those of syntax and sound a like substitutions which may escape proof reading. It such instances, actual meaningcan be extrapolated by contextual diversion. Ignacio Ward MD Office: [facility] / office [phone] * Gill Gaines RN - 01/11/2019 11:55 AM EST Pt threw up a little bite of egg like food with streak of red blood, pt states her stomach is burning and her throat is burning . Perfect served the resident * Gill Gaines RN - 01/11/2019 10:16 AM EST Pt ate 4 bites of eggs and food like emesis perfect served resident above orders received zofran given pt informed of clear liquids * Gill Gaines RN - 01/11/2019 8:49 AM EST Pt not nauseated tolerated liquid breakfast Dr ANTONIO rounded dc'd IV zofran and Morphine hopefully Dcthis afternoon * Humberto Bishop MD - 01/11/2019 5:13 AM EST CDU Daily Progress Note Attending Physician Pt Name: Tracie Samuels Birthdate 1990 Date of evaluation: 01/11/19 I performed a history and physical examination of the patient and discussed management with the resident. I reviewed the resident s note and agree with the documented findings and plan of care. Any areas of disagreement are noted on the chart. I was personally present for the mendoza portions of any procedures. I have documented in the chart those procedures where I was not present during the mendoza portions. I have reviewed the emergency nurses triage note. I agree with the chief complaint, past medical history, past surgical history, allergies, medications, social and family history as documented unless otherwise noted below. Documentation of the HPI, Physical Exam and Medical Decision Making per formed by medical students or scribes is based on my personal performance of the HPI, PE and MDM. For Physician Coil Placer/ Nurse Practitioner cases/documentation I have personally evaluated this patient and have completed at least one if not all mendoza elements of the E/M (history, physical exam, and MDM). Additional findings are as noted. The Family History, Social History and Review of Systems are unchanged from the previous day. No significant events overnight. CT abdomen pelvic fluid unchanged, L cyst no longer there. Bladder normal. Switched to Levoquin. Continue flagyl. ID following. Will take her off all IV meds and change to PO. If able to handle oral plan is to discharge if OK with ID. HUMBERTO BISHOP MD Attending Physician Critical Decision Unit * Darrion Hooper, - 01/11/2019 5:09 AM EST OBS/CDU RESIDENT NOTE Patients PCP is: Katlin Fernandez, SUBJECTIVE No acute events overnight. Has been able to tolerate a full diet without nausea or vomiting. Attempted breakfast this morning but was only able to take a few bites prior to vomiting. Some epigastric and esophegeal pain after vomiting. Given maalox and pepcid. Will try clear liquid diet for now and slowly advance diet. The patient is urinating on her own, having bowel movment and is passing flatus. Denies fever, chills, chest pain, shortness of breath, focal weakness, numbness, tingling, urinary/bowel symptoms, vision changes, visual hallucinations, or headache. PHYSICAL EXAM General: NAD, AO X 3 Heent: EMOI, PERRL Neck: SUPPLE, NO JVD Cardiovascular: RRR, S1S2 Pulmonary: CTAB, NO SOB Abdomen: mild epigastric pain and left flank tenderness, SOFT, ND, +BS Extremities: +2/4 PULSES DISTAL, NO SWELLING Neuro / Psych: NO NUMBNESS OR TINGLING, MENTATION AT BASELINE PERTINENT TEST /EXAMS I have reviewed all available laboratory results. MEDICATIONS CURRENT ondansetron (ZOFRAN) injection 4 mg, Q6H PRN 0.9 % sodium chloride infusion, Continuous acetaminophen (TYLENOL) tablet 650 mg, Q4H oxyCODONE (ROXICODONE) immediate release tablet 5 mg, Q4H PRN Or oxyCODONE (ROXICODONE) immediate release tablet 10 mg, Q4H PRN docusate sodium (COLACE) capsule 100 mg, Daily levofloxacin (LEVAQUIN) tablet 500 mg, Daily albuterol (PROVENTIL) nebulizer solution 2.5 mg, Q4H PRN ondansetron (ZOFRAN-ODT) disintegrating tablet 4 mg, Q8H PRN sodium chloride flush 0.9 % injection 10 mL, 2 times per day sodium chloride flush 0.9 % injection 10 mL, PRN enoxaparin (LOVENOX) injection 40 mg, Daily albuterol sulfate HFA 108 (90 Base) MCG/ACT inhaler 2 puff, Q4H PRN morphine injection 4 mg, Q4H PRN ondansetron (ZOFRAN) injection 4 mg, Q6H PRN oxyCODONE-acetaminophen (PERCOCET) 5-325 MG per tablet 1 tablet, Once metroNIDAZOLE (FLAGYL) tablet 500 mg, 2 times per day All medication charted and reviewed. CONSULTS IP CONSULT TO INFECTIOUS DISEASES IP CONSULT TO HOME CARE NEEDS ASSESSMENT/PLAN Tracie Samuels is a 28 y.o. female who presents with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 Active Start: April 06, 2023 End: April 06, 2023 Pricilla Raygoza [facility]- Emergency Provider Active Start: April 06, 2023 End: April 06, 2023 Tree Trimming Supervisor Relationship Specialty Start Date End Date Katlin Fernandez MD [address] [place] [address] PCP - General Family Medicine 01/31/23 Tree Trimming Supervisor Relationship Specialty Start Date End Date Katlin Fernandez MD [address] [place] [address] PCP - General Family Medicine 01/31/23 Tree Trimming Supervisor Relationship Specialty Start Date End Date Katlin Fernandez MD [address] [place] [address] PCP - General Family Medicine 01/31/23 Team Status: Inactive Member Role Status Dates Katlin Fernandez DO Primary Care Provider Active Start: April 17, 2023 End: April 17, 2023 Pricilla Raygoza [facility] Emergency Provider Active Start: April 17, 2023 End: April 17, 2023 Team Status: Inactive Member Role Status Dates Katlin Fernandez DO Primary Care Provider Active Start: May 12, 2023 End: May 12, 2023 Elpidio Myles PA-C Emergency Provider Active Start: May 12, 2023 End: May 12, 2023 Team Status: Inactive Member Role Status Dates Katlin B Fernandez , DO Primary Care Provider Active Start: May 16, 2023 End: May 16, 2023 Tate Marcial DO Emergency Provider Active Sta rt: May 16, 2023 End: May 16, 2023 Team Status: Inactive Member Role Status Dates Katlin Fernandez DO Primary Care Provider Active Start: May 22, 2023 End: May 22, 2023 Anthony Huang DO Attending Provider Active Sta rt: May 22, 2023 End: May 22, 2023 Team Status: Inactive Member Role Status Dates Katlin Fernandez DO Primary Care Provider Active Start: June 13, 2023 End: June 13, 2023 Tate Marcial , DO Emergency Provider Active Sta rt: June 13, 2023 End: June 13, 2023 Team Status: Inactive Member Role Status Felice Fernandez DO Primary Care Provider Active Start: July 06, 2023 End: July 06, 2023 Jason Benton DO Emergency Provider Active St art: July 06, 2023 End: July 06, 2023 Team Status: Active Member Role Status Felice Fernandez DO Primary Care Provderek hartmann, Attending Provider Active Start: July 09, 2023 Team Status: Inactive Member Role Status Felice Fernandez DO Primary Care Provider Active Start: July 14, 2023 End: July 14, 2023 Roya German MD Emergency Provider Active St art: July 14, 2023 End: July 14, 2023 Team Status: Active Member Role Status Dates Marry Kraus Set Up Mechanic Stamping Machines Active PHYSICIAN NO FAMILY Primary Care Provider Active Team Status: Inactive Member Role Status Dates PHYSICIAN NO FAMILY Primary Care Provider Active Start: July 21, 2023 End: July 21, 2023 Kanu Brush MD Emergency Provider Active Star t: July 21, 2023 End: July 21, 2023 Team Status: Active Member Role Status Dates PHYSICIAN NO FAMILY Primary Care Provider Active Start: August 28, 2023 Marry Kraus Attending Provider Active Start: Ju ly 2023 Team Status: Active Member Role Status Dates PHYSICIAN NO FAMILY Primary Care Provider Active Start: August 29, 2023 Marry Kraus Attending Provider Active Start: Ju ly 2023 Team Status: Active Member Role Status Dates PHYSICIAN NO FAMILY Primary Care Provider Active Start: September 04, 2023 Marry Kraus Attending Provider Active Start: Ju ly 2023 Team Status: Inactive Member Role Status Dates Katlin Fernandez , Primary Care Provider Active Start: September 20, 2023 End: September 20, 2023 Jose Miguel Soria DO RES Active Start: September 20, 2023 End: September 20, 2023 Amaury Galindo DO Emergency Provider Active Start: September 20, 2023 End: September 20, 2023 Team Status: Active Member Role Status Dates Katlin Fernandez DO Primary Care Provider Active Start: September 21, 2023 Marry Nayana Attending Provider Active Start: Ju ly 2023 Team Status: Inactive Member Role Status Dates Katlin Fernandez , Primary Care Provider Active Start: October 03, 2023 End: October 04, 2023 Amaury Galindo , Emergency Provider Active Start: October 03, 2023 End: October 04, 2023 Rita Dukes DO RES Active Start: October 03, 2023 End: October 04, 2023 Tree Trimming Supervisor Relationship Specialty Start Date End Date Katlin Fernandez MD [address] [place] [id number] PCP - General Family Medicine 01/31/23 Tree Trimming Supervisor Relationship Specialty Start Date End Date Katlin Fernandez MD [address] [place] [id number] PCP - General Family Medicine 01/31/23 Goals (unrecognized section and content) Goals may be documented in a n alternate section FOR RECORDS PERTAINING TO PATIENTS WHO ARE OR HAVE BEEN ENROLLED IN A CHEMICAL DEPENDENCY/SUBSTANCEABUSE PROGRAM, SOME INFORMATION MAY BE OMITTED. This clinical summary was aggregated from multiple sources. Caution should be exercised in using it in the provision of clinical care. This summary normalizes information from multiple sources, and as a consequence, information in this document may materially change the coding, format and clinical context of patient data. In addition, data may be omitted in some cases. CLINICAL DECISIONS SHOULD BE BASED ON THE PRIMARY CLINICAL RECORDS. [facility] provides no warranty or guarantee of the accuracy or completeness of information in this document.
[2024-01-06 12:14] LABS: Basophils Absolute Auto 0.1 10^3/uL (0.0-0.1); Basophils Percent Auto 0.5 % (0.2-2.0); Eosinophils Absolute Auto 0.3 10^3/uL (0.0-0.7); Eosinophils Percent Auto 2.9 % (0.9-7.0); Hematocrit 38.5 % (36.0-48.0); Hemoglobin 12.6 g/dL (12.0-16.0); Immature Granulocytes Abs Auto 0.04 10^3/uL (0.00-0.03); Immature Granulocytes Pct Auto 0.4 % (0.0-0.5); Lymphocytes Absolute Auto 3.3 10^3/uL (1.2-3.8); Lymphocytes Percent Auto 32.1 % (20.5-60.0); Mean Corpuscular HGB Conc 32.7 g/dL (29.9-35.2); Mean Corpuscular Hemoglobin 30.5 pg (26.7-34.0); Mean Corpuscular Volume 93.2 fL (81.0-99.0); Mean Platelet Volume 9.3 fL (9.5-13.5); Monocytes Absolute Auto 0.5 10^3/uL (0.3-0.8); Neutrophils Percent Auto 59.1 % (43.0-75.0); Platelet Count 259 10^3/uL (150-450); Red Blood Count 4.13 10^6/uL (4.20-5.40); Red Cell Distribution Width 12.4 % (11.0-15.0); White Blood Count 10.2 10^3/uL (4.0-11.0)
[2024-01-06] MEDS: MORPHINE SULFATE 4 MG/ML VIAL 3 MG IV (12:14)
[2024-01-06] MEDS: DICYCLOMINE HCL 20 MG/2 ML VIAL IM (12:15)
[2024-01-06] MEDS: KETOROLAC TROMETHAMINE 30 MG/ML VIAL IVP (12:15)
[2024-01-06 12:17] LABS: HCG Qualitative NEGATIVE (NEGATIVE); Internal Control Within Normal Limits
[2024-01-06 12:24] LABS: Alanine Aminotransferase 40 U/L (14-59); Albumin Globulin Ratio 0.8; Albumin Level 3.3 g/dL (3.4-5.0); Alkaline Phosphatase 119 U/L (46-116); Anion Gap 16.2; Aspartate Amino Transferase 29 U/L (15-37); BUN Creatinine Ratio 10.5; Bilirubin Total 0.3 mg/dL (0.2-1.0); Chloride 103 mmol/L (98-107); Estimated GFR (African America >60 (>=60 mL/min/1.73m^2); Estimated GFR (Non-African Ame >60 (>=60 mL/min/1.73m^2); Globulin 4.3 g/dL; Glucose 130 mg/dL (74-106); Potassium 4.2 mmol/L (3.5-5.1); Sodium 141 mmol/L (136-145); Total Protein 7.6 g/dL (6.4-8.2)
[2024-01-06 12:24] LABS: Bilirubin Urine NEGATIVE (NEGATIVE); Blood Urine LARGE (NEGATIVE); Clarity Urine CLEAR (CLEAR); Color Urine RED (YELLOW); Glucose Urine UA NEGATIVE (NEGATIVE); Ketones Urine NEGATIVE (NEGATIVE); Leukocyte Esterase Urine SMALL (NEGATIVE); Nitrite Urine NEGATIVE (NEGATIVE); Protein Urine 100 mg/dL (NEG/TRACE); Urine Microscopic Indicated YES; pH Urine 8.5 (5.0-9.0)
[2024-01-06 12:35] LABS: Bacteria Urine TRACE #/HPF (NONE SEEN); Cast Seen? NONE SEEN #/LPF (NONE SEEN); Crystals Seen? None Seen #/HPF (None Seen); Mucus Urine NONE SEEN (NONE SEEN); RBC Urine 50-75 #/HPF (0-2); Squamous Epithelial Cell Urine FEW #/LPF (NONE/RARE); Urine Culture Indicated YES
[2024-01-06 13:54] VITALS: BP 148/62
--- NOTE | 2024-01-06 14:33 | ED.ABDPAIN1 ---
HPI - Abdominal Pain General Chief Complaint: Abdominal Pain Stated Complaint: LOWER ABDOMINAL PAIN Time Seen by Provider: 01/06/24 11:46 Source: patient and family Mode of arrival: walk-in Limitations: no limitations History of Present Illness HPI narrative: The patient is coming to be evaluated for the same complaint that she had almost 10 days ago, left lower quadrant pain not radiating not associated any fever chills or any other complaint of nausea or vomiting, the patient mentioned that she ran out of her pain medication and she also mentioned that she has her menstruation just started The patient denies any other complaint and she is distress and pain saying that the 10 out of 10 Related Data Home Medications ?Medication ?Instructions ?Recorded ?Confirmed norgestimate 0.25 mg-ethinyl 1 tab PO DAILY 01/06/24 01/06/24 estradiol 35 mcg tablet ([place]) ondansetron HCl 4 mg tablet 8 mg PO Q6H PRN nausea and vomiting 01/06/24 01/06/24 Previous Rx's ?Medication ?Instructions ?Recorded ciprofloxacin HCl 500 mg tablet 500 mg PO Q12H #14 tabs 12/26/23 ondansetron 4 mg disintegrating 4 mg PO Q6H PRN nausea and 12/26/23 tablet vomiting #12 tabs ketorolac 10 mg tablet 10 mg PO Q6H PRN pain 5 days #20 01/06/24 tabs oxycodone-acetaminophen 5 mg-325 1 tab PO Q8H PRN pain #9 tabs 01/06/24 mg tablet (Percocet) Allergies Allergy/AdvReac Type Severity Reaction Status Date / Time No Known Drug Allergies Allergy Verified 12/26/23 17:18 Review of Systems ROS Status of ROS 10 or more systems reviewed and unremarkable except as noted in history and below [facility] Social History Little interest or pleasure in doing things: not at all Feeling down, depressed, or hopeless: not at all Exam Narrative Exam Narrative: Nurses notes and vital signs reviewed and patient is not hypoxic. General: Well-appearing and in no apparent distress. Skin: Warm, dry, no pallor noted. No rash. Head: Normocephalic, atraumatic. Neck: Supple, non-tender. Eye: Pupils are equal, round and EOMI. No scleral icterus. Ears, Nose, Mouth, and Throat: TM are clear, no nasal mucosal hypertrophy. Oral mucosa is moist, no posterior oropharynx erythema, uvula is mid-line Cardiovascular: Regular Rate and Rhythm without murmur, gallop or rub. Respiratory: No accessory muscle use or respiratory distress. Lungs are clear to auscultation, no wheezing, rales or rhonchi Chest Wall: no tenderness Back: No midline thoracic or lumbar vertebral tenderness. No CVA tenderness Musculoskeletal: normal ROM, no calf or popliteal tenderness, no lower extremity edema/swelling GI: Abdomen is soft, non-distended. Normal bowel sounds. No masses appreciated. Tenderness upon palpation of the left lower quadrant Neurological: A&O x4. No cranial nerve dysfunction observed. No truncal ataxia. Moves all extremities. Sensation intact. Psychiatric: Cooperative and interactive. Normal mood and affect. Constitutional Vital Signs, click to edit/add: Last Vital Signs Temp 98.2 F 01/06/24 11:23 Pulse 95 H 01/06/24 11:23 Resp 18 01/06/24 11:23 BP 148/62 H 01/06/24 13:54 Pulse Ox 99 01/06/24 11:23 O2 Del Method Room Air 01/06/24 11:23 Course Vital Signs Vital signs: Vital Signs Temperature 98.2 F 01/06/24 11:23 Pulse Rate 95 H 01/06/24 11:23 Respiratory Rate 18 01/06/24 11:23 Blood Pressure 161/90 H 01/06/24 11:23 Pulse Oximetry 99 01/06/24 11:23 Oxygen Delivery Method Room Air 01/06/24 11:23 Temperature 98.2 F 01/06/24 11:23 Pulse Rate 95 H 01/06/24 11:23 Respiratory Rate 18 01/06/24 11:23 Blood Pressure 148/62 H 01/06/24 13:54 Pulse Oximetry 99 01/06/24 11:23 Oxygen Delivery Method Room Air 01/06/24 11:23 MDM - Abdominal Pain MDM Narrative Medical decision making narrative: Initially the patient was distressed with pain she was provided the ER with Toradol and morphine also the patient had a blood workup shows improvement of her leukocytosis that she had before and her chemistry was within normal She really had a workup almost 10 days ago that showed that she have a hemorrhagic left ovarian cyst in addition to possibly of fluid in the fallopian tube I did discuss this case with Dr. Granados in [employer] and she agreed that the patient will need evaluation within the week she was referred to Dr. Esqueda as outpatient I explained to the patient right now that she need to be evaluated within the week for this and for possible surgery in case of continuous pain. The patient was discharged home with only 3 days of Percocet in addition to Toradol for pain The patient is to follow up with primary care physician in next 2-3 days or to return to the emergency department should any of the signs or symptoms worsen or new symptoms develop. The patient agrees with the following Diagnosis and Treatment plan and the patient will be discharged home. Lab Data Labs: Lab Results 01/06/24 01/06/24 Range/Units 11:35 11:55 WBC 10.2 (4.0-11.0) 10^3/uL RBC 4.13 L (4.20-5.40) 10^6/uL Hgb 12.6 (12.0-16.0) g/dL Hct 38.5 (36.0-48.0) % MCV 93.2 (81.0-99.0) fL MCH 30.5 (26.7-34.0) pg MCHC 32.7 (29.9-35.2) g/dL RDW 12.4 (11.0-15.0) % Plt Count 259 (150-450) 10^3/uL MPV 9.3 L (9.5-13.5) fL Neut % (Auto) 59.1 (43.0-75.0) % Lymph % (Auto) 32.1 (20.5-60.0) % [place] % (Auto) 5.0 (1.7-12.0) % Eos % (Auto) 2.9 (0.9-7.0) % Baso % (Auto) 0.5 (0.2-2.0) % Neut # (Auto) 6.0 (1.4-6.5) 10^3/uL Lymph # (Auto) 3.3 (1.2-3.8) 10^3/uL [place] # (Auto) 0.5 (0.3-0.8) 10^3/uL Eos # (Auto) 0.3 (0.0-0.7) 10^3/uL Baso # (Auto) 0.1 (0.0-0.1) 10^3/uL Abs Immat Gran (auto) 0.04 H (0.00-0.03) 10^3/uL Imm/Tot Granulo (auto) 0.4 (0.0-0.5) % Sodium 141 (136-145) mmol/L Potassium 4.2 (3.5-5.1) mmol/L Chloride 103 (98-107) mmol/L Carbon Dioxide 26.0 (21.0-32.0) mmol/L Anion Gap 16.2 BUN 10.0 (7.0-18.0) mg/dL Creatinine 0.95 (0.55-1.02) mg/dL Est GFR ( Amer) >60 (>=60 mL/min/1.73m^2) Est GFR (Non-Af Amer) >60 (>=60 mL/min/1.73m^2) BUN/Creatinine Ratio 10.5 Glucose 130 H (74-106) mg/dL Calcium 9.0 (8.5-10.1) mg/dL Total Bilirubin 0.3 (0.2-1.0) mg/dL AST 29 (15-37) U/L ALT 40 (14-59) U/L Alkaline Phosphatase 119 H (46-116) U/L Total Protein 7.6 (6.4-8.2) g/dL Albumin 3.3 L (3.4-5.0) g/dL Globulin 4.3 g/dL Albumin/Globulin Ratio 0.8 Serum HCG, Qual Negative (NEGATIVE) Urine Color Red A (YELLOW) Urine Clarity Clear (CLEAR) Urine pH 8.5 (5.0-9.0) Ur Specific [place] 1.020 (1.005-1.025) Urine Protein 100 A (NEG/TRACE) mg/dL Urine Glucose (UA) Negative (NEGATIVE) mg/dL Urine Ketones Negative (NEGATIVE) mg/dL Urine Occult Blood Large A (NEGATIVE) Urine Nitrite Negative (NEGATIVE) Urine Bilirubin Negative (NEGATIVE) Urine Urobilinogen 1.0 (0.2-1.0) EU/dL Ur Leukocyte Esterase Small A (NEGATIVE) Urine RBC 50-75 A (0-2) #/HPF Urine WBC 2-5 A (NONE SEEN) #/HPF Ur Squamous Epith Cells Few A (NONE/RARE) #/LPF Urine Crystals None seen (None Seen) #/HPF Urine Bacteria Trace A (NONE SEEN) #/HPF Urine Casts None seen (NONE SEEN) #/LPF Urine Mucus None seen (NONE SEEN) Ur Culture Indicated? Yes Discharge Plan Discharge Chief Complaint: Abdominal Pain Clinical Impression: Complex cyst of left ovary Patient Disposition: Home, Self-Care Time of Disposition Decision: 13:38 Condition: Good Mode of Transportation: Private Vehicle Prescriptions / Home Meds: New oxycodone-acetaminophen [Percocet] 5-325 mg tablet 1 tab PO Q8H PRN (Reason: pain) Qty: 9 0RF ketorolac 10 mg tablet 10 mg PO Q6H PRN (Reason: pain) 5 Days Qty: 20 0RF No Action ciprofloxacin HCl 500 mg tablet 500 mg PO Q12H Qty: 14 0RF ondansetron 4 mg tablet,disintegrating 4 mg PO Q6H PRN (Reason: nausea and vomiting) Qty: 12 0RF norgestimate-ethinyl estradiol [[place]] 0.25-35 mg-mcg tablet 1 tab PO DAILY ondansetron HCl 4 mg tablet 8 mg PO Q6H PRN (Reason: nausea and vomiting) Print Language: [place] Instructions: Ovarian Cyst (ED), Ovarian Cyst Removal (DC) Referrals: Jagdish Esqueda DO [Physician] - 1 week Physician,Non-Staff, MD [Primary Care Provider] - 1 week Discharge Date/Time: 01/06/24 13:54
== END 2024-01-06 13:54 | disposition home or self-care (01) ==
PROVIDERS: Emergency Provider Emergency Medicine
DX: N83.202 Unspecified ovarian cyst, left side (principal)
CPT/HCPCS: 36415; 80053; 81001; 84703; 85025; 87086; 96372; 96374; 96375; 99284; J0500; J1885; J2270

== ENCOUNTER 2024-12-04 10:23 | Emergency (ER) | payer MEDICARE, MEDICAID, SELFPAY ==
[2024-12-04 10:30] VITALS: BP 137/80; PULSE 79; TEMP 37.1; O2SAT 98; BMI 42.2
--- OUTSIDE RECORDS SUMMARY | 2024-12-04 10:46 | XMS_ITS | CCD ---
Author Organization [facility] Care Team Providers Care [employer] Civil Engineer Name Role Phone Katlin Fernandez Primary Care Provider [phone] KATLIN FERNANDEZ Primary Care Unavailable DALE MONTOYA Attending Unavailable Katlin Fernandez Primary Care Provider KATLIN FERNANDEZ Primary Care Physician Aleena Ryder Unavailable Katlin Fernandez Unavailable Claudia Rowe Unavailable DO Katlin Fernandez Primary Care Provider DO Katlin Fernandez Attending Provider [phone] DO Katlin Fernandez Primary Care Provider GINA Medina Emergency Provider [phone] DO Katlin Fernandez Primary Care Provider [facility] Emergency Provider [phone] Katlin Fernandez MD Primary Care Provider DO Katlin Fernandez Primary Care Provider Idalmis [facility] E Emergency Provider JANNET Myles Emergency Provider [phone] DO Tate Marcial Emergency Provider DO Anthony Lanier Attending Provider DO Jim Katlin B Primary Care Provider [place], [facility]- Pricilla Breen Emergency Provider [phone] DO Jason Benton Emergency Provider DO Jim Katlin B Primary Care Provider [phone] MD Roya German Emergency Provider NO FAMILY, PHYSICIAN Primary Care Provider Unava ilable MD Kanu Brush Emergency Provider [phone] MAE COLIN Attending Unavailable KATLIN FERNANDEZ Primary Care Physician KATLIN FERNANDEZ Primary Care Unavailable Jass Meek Attending Unavailable Juan Antonio Hooper Attending Unavailable FERNANDEZ, KATLIN Primary Care Unavailable FERNANDEZ, KATLIN Primary Care Unavailable Jass Meek Attending Unavailable CARINA FERNANDEZANNE Primary Care Unavailable Jorge Oliva Attending Unavailable DO Jorge Oliva Attending Unavailable JIM KATLIN Primary Care Unavailable FERNANDEZ, KATLIN Primary Care Unavailable DoDO Jorge florez Attending Unavailable DO Jim Katlin B Primary Care Provider DO Amaury Galindo Emergency Provider Unavai KATLIN Zhang Primary Care Unavailable JAELYN RENAE Attending Unavailable Katlin Fernandez MD Primary Care Provider HILLS, KAYLEEN D Attending Unavailable HILLS, KAYLEEN D Referring Unavailable HILLS, KAYLEEN D Referring Unavailable HILLS, KAYLEEN D Referring Unavailable HILLS, KAYLEEN D Attending Unavailable JESSICA STEVENSON Attending Unavail able HILLS, KAYLEEN D Referring Unavailable LIN KOHLER Attending Unavailable HILLS, KAYLEEN D Referring Unavailable WENGYARIEL HENDERSON Attending Unavailable HILLS, KAYLEEN D Referring Unavailable HILLS, KAYLEEN D Attending Unavailable HILLS, KAYLEEN D Referring Unavailable HILLS, KAYLEEN D Referring Unavailable VISCI, ANTHONY Blanton Attending Unavailable VISCI, ANTHONY A Referring Unavailable HILLS, KAYLEEN D Attending Unavailable HILLS, KAYLEEN D Referring Unavailable VISCI, ANTHONY A Attending Unavailable VISCI, ANTHONY A Referring Unavailable VISCI, ANTHONY Blanton Attending Unavailable VISCI, ANTHONY Blanton Attending Unavailable VISCI, ANTHONY Blanton Attending Unavailable Carina Fernandez DOanne B Primary Care Provider Fernandez DO, Katlin B Primary Care Provider [phone] Rebecca DOSergee L Attending Provider [phone] Fernandez, Katlin B Primary Care Unavailable Amaury Galindo Admitting Unavailable Amaury Galindo Attending Unavailable Ly, Olga L Admitting Unavailable Ly, Olga L Attending Unavailable Fernandez, Katlin B Primary Care Unavailable Ly, Olga L Admitting Unavailable Ly, Olga L Attending Unavailable Fernandez, Katlin B Primary Care Unavailable Saffle, Flores N Attending Unavailable Fernandez, Katlin B Primary Care Unavailable Saffle, Flores N Admitting Unavailable TupaJason Admitting Unavailable TupaJason Attending Unavailable Fernandez, Katlin B Primary Care Unavailable Fernandez, Katlin B Primary Care Unavailable Roya German Admitting Unavailable Ryoa German Attending Unavailable NO FAMILY, PHYSICIAN Primary Care Unavailable Kanu Brush Admitting Unavailable Kanu Brush Attending Unavailable Fernandez, Katlin B Primary Care Unavailable Amaury Galindo Admitting Unavailable Amaury Galindo Attending Unavailable Robin, John Attending Unavailable FERNANDEZ, KATLIN Primary Care Unavailable FERNANDEZ, KATLIN Primary Care Unavailable Jorge Oliva Attending Unavailable FERNANDEZ, KATLIN Primary Care Unavailable Robin, John Attending Unavailable Lois Lucas Attending Unavailable FERNANDEZ, KATLIN Primary Care Unavailable Kanu Kelly Attending Unavailable FERNANDEZ, KATLIN Primary Care Unavailable Kanu Kelly Attending Unavailable FERNANDEZ, KATLIN Primary Care Unavailable Robin, Kanu Attending Unavailable FERNANDEZ, KATLIN Primary Care Unavailable Jass Meek Attending Unavailable FERNANDEZ, KATLIN Primary Care Unavailable Robin, John Attending Unavailable FERNANDEZ, KATLIN Primary Care Unavailable Robin, Knau Attending Unavailable FERNANDEZ, KATLIN Primary Care Unavailable Allergies Allergy Classification Reported Allergen(s) Allergy Type Date of Onset Reaction(s) Facility (20 sources) cyclobenzaprine; Translations: [cyclobenzaprine] Drug Allergy 02-03-20 15 Other, GI intolerance [place], [place] (9 sources) Naproxen Drug Allergy 03-07-19 16 [place], [place] (20 sources) QUEtiapine; Translations: [quetiapine] Drug Allergy 11-25-19 11 anaphylaxis [place], [place] (20 sources) Valproate; Translations: [DIVALPROEX SODIUM] Drug Allergy 11-25-19 11 Swelling [place], [place] (2 sources) Acetaminophen / HYDROcodone Drug Allergy 03-09-19 21 Swelling [place] (20 sources) Acetaminophen; Translations: [acetaminophen] Drug Allergy 04-24-19 20 Pharyngeal swelling (finding) [facility] Comment on above: Not able to take d/t GI Ulcer (20 sources) Acetaminophen / HYDROcodone; Translations: [acetaminophen-hyd rocodone] Drug Allergy [facility] (20 sources) Amoxicillin; Translations: [amoxicillin] Drug Allergy 04-24-19 Facial swelling (finding) [facility] Other (20 sources) Cephalexin; Translations: [cephalexin] Drug Allergy 07-27-19 23 hives, Other [facility] Other (20 sources) Doxycycline; Translations: [doxycycline] Drug Allergy [facility] (20 sources) drospirenone / Ethinyl Estradiol; Translations: [drospirenone-ethi nyl estradiol] Drug Allergy [facility] (20 sources) Egg; Translations: [Eggs] Drug allergy [facility] (20 sources) Fish - dietary; Translations: [Fish] Drug allergy [facility] (20 sources) Ketorolac; Translations: [ketorolac] Drug Allergy Eruption of skin (disorder) [facility] (20 sources) predniSONE; Translations: [prednisone] Drug Allergy 04-05-19 16 hives (medrol ok) [facility] Other Comment on above: Hives Hives (20 sources) Valproate; Translations: [divalproex sodium] Drug Allergy anaphylaxis [facility] Other (20 sources) Milk Products; Translations: [Milk Products] Drug allergy [facility] (20 sources) casein allergenic extract Drug Allergy anaphylaxis [facility] Other (20 sources) Codeine / guaiFENesin Drug Allergy itching [facility] Other (20 sources) cyclobenzaprine; Translations: [Flexeril] Drug Allergy [facility] (20 sources) gabapentin Drug Allergy 07-27-19 hives, Unknown [facility] (20 sources) Lactose; Translations: [lactose] Drug Allergy 04-06-19 24 vomiting [facility] (20 sources) shrimp allergenic extract Drug Allergy [facility] Other (20 sources) Bee Sting Drug allergy anaphylaxis [facility] Other (18 sources) Caseins; Translations: [CASEIN] Drug Allergy 02-03-20 15 Swelling of Lip/Tongue/Thr oat [facility] (20 sources) HYDROcodone; Translations: [hydrocodone] Drug Allergy 04-24-19 20 Vomiting [facility] (17 sources) Ibuprofen; Translations: [ibuprofen] Drug Allergy 04-24-19 Unknown Reaction [facility] Comment on above: Not able to take d/t GI Ulcer (17 sources) QUEtiapine; Translations: [quetiapine] Drug Allergy 04-24-19 20 Swelling of Lip/Tongue/Thr oat, Swelling of Lip/Tongue/Thr oat, anaphylaxis, anaphylaxis [facility] (1 source) Caseins Drug Allergy 07-04-19 23 anaphylaxis [facility] (20 sources) Codeine; Translations: [codeine] Drug Allergy 04-06-19 24 itching, Swelling of Lip/Tongue/Thr oat [facility] (20 sources) guaiFENesin; Translations: [guaifenesin] Drug Allergy 04-06-19 24 itching [facility] (15 sources) Shrimp product; Translations: [shrimp] Allergy to substance 04-06-19 [facility] (15 sources) Valproate; Translations: [valproic acid] Drug Allergy 04-06-19 anaphylaxis [facility] (15 sources) bee venom protein (honey bee); Translations: [bee venom protein (honey bee)] Allergy to substance 04-06-19 anaphylaxis [facility] (3 sources) Acetaminophen / Codeine Drug Allergy 07-27-19 [facility] (12 sources) Penicillins; Translations: [PENICILLINS] Drug Intolerance 02-03-20 15 Other, GI intolerance [facility] (11 sources) Fish-Derived Products Drug Allergy 07-27-19 Other [facility] (11 sources) Milk-Related Compounds Drug Allergy 02-03-20 15 Swelling, Other [facility] (1 source) cyclobenzaprine; Translations: [CYCLOBENZAPRINE HCL] Drug Allergy 02-03-20 15 [facility] (1 source) Fish derivative; Translations: [FISH DERIVED] Propensity to adverse reactions to drug (disorder) 05-02-19 13 [facility] (1 source) Milk; Translations: [MILK] Propensity to adverse reactions to food (disorder) 05-02-19 13 [facility] (8 sources) QUEtiapine; Translations: [SEROquel] Drug Allergy [facility] (8 sources) Acetaminophen Drug Allergy 05-12-19 [facility] (1 source) Acetaminophen Drug Allergy 05-13-19 [facility] (1 source) Amoxicillin Drug Allergy 05-13-19 [facility] (1 source) Cephalexin Drug Allergy 05-13-19 25 [facility] (1 source) cyclobenzaprine Drug Allergy 05-13-19 25 [facility] (1 source) gabapentin Drug Allergy 05-13-19 25 [facility] (1 source) predniSONE Drug Allergy 05-13-19 25 [facility] (1 source) Valproate Drug Allergy 05-13-19 [facility] Medications Current Medications Medication Drug Class(es) Dates Sig (Normalized) Sig (Original) Acetaminophen (20 sources) Start: 12-14-2019 acetaminophen (TYLENOL) tablet 650 mg Start: 12-13-2019 End: 12-13-2019 acetaminophen (TYLENOL) tabl et 1,000 mg Start: 10-29-2019 End: 10-29-2019 acetaminophen (TYLENOL) tabl et 1,000 mg Start: 01-10-2019 acetaminophen (TYLENOL) tablet 650 mg Start: 07-10-2017 End: 07-17-2017 take 500-1000 mg by mouth three times daily as needed for pain Acetaminophen (Tylenol Extra Strength) 500 mg Tablet Discontinued 500 - 1000 MG PO Three times daily as needed for Pain July 10, 2017 12:00am July 17, 2017 9:11pm [id number] 200 actuat albuterol 0.09 mg/actuat metered dose inhaler (20 sources) beta2-Adrenergic Agonist Start: 05-22-2023 Albut rayne Sulfate 2.5 mg/0.5 mL solution for nebulization Active 2.5 MG INHALATION As Directed as needed for shortness of breath or wheezing May 22, 2023 12:00am Start: 05-22-2023 Albuterol Sulf ate 90 mcg/actuation HFA aerosol inhaler Active 2 PUFF INHALATION As Directed as needed for shortness of breath or wheezing May 22, 2023 12:00am Start: 05-16-2023 End: 05-22-2023 Albuterol Sulfate 2.5 mg/0.5 mL solution for nebulization Discontinued 2.5 MG INHALATION every 6 to 8 hours as needed for shortness of breath or wheezing May 16, 2023 12:00am May 22, 2023 11:54am Start: 12-24-2020 take 2.5 mg by inhal ation every six hours albuterol 0.083% Inh Claire 3 mL UD 2.5 mg = 3 mL, Inhalation, q6hr, # 25 EA, Refills(s) 0, Pharmacy: [facility], 150, cm, 12/24/20 11:53:00 EDT, Height/Length Dosing, 74, kg, 12/24/20 11:53:00 EDT, Weight Dosing Start Date: 12/24/20 Status: Ordered Quantity: 25.0 Unit: EA Repeat number: 1 Start: 12-24-2020 take 2.5 mg by inhal ation every six hours albuterol 0.083% Inh Claire 3 mL UD 2.5 mg = 3 mL, Inhalation, q6hr, # 25 EA, Refills(s) 0, Pharmacy: [facility] #[facility], 150, cm, 12/24/20 11:53:00 EDT, Height/Length Dosing, 74, kg, 12/24/20 11:53:00 EDT, Weight Dosing Start Date: 12/24/20 Status: Ordered Start: 04-24-2019 End: 05-22-2023 take 1 puff(s) by inhalation every six hours as needed for wheezing Albuterol Sulfate 90 mcg/actuation HFA aerosol inhaler Discontinued 2 PUFF INHALATION Q6H as needed for shortness of breath or wheezing 18 April 24, 2019 1:00am May 22, 2023 11:54am Start: 01-09-2019 albuterol sulf ate HFA 108 (90 Base) MCG/ACT inhaler 2 puff Start: 01-09-2019 2.5 mg, Nebuli zation, EVERY 4 HOURS PRN, Shortness of Breath, Starting [facility] 01/09/19 at 0325 Start: 10-27-2018 End: 05-22-2023 take 2.5 mg by inhalation every four to six hours as needed for wheezing Albuterol Sulfate 2.5 mg /3 mL (0.083 %) solution for nebulization Discontinued 2.5 MG INHALATION EVERY 4-6 HOURS as needed for shortness of breath or wheezing 6 October 27, 2018 12:00am May 22, 2023 11:51am dispense 2 to go Start: 09-29-2018 End: 05-22-2023 Albuterol Sulfate (Ventolin Hfa) 90 mcg/actuation HFA aerosol inhaler Discontinued 2 INH INHALATION EVERY 4-6 HOURS as needed for wheezing 6.7 September 29, 2018 12:00am May 22, 2023 11:52am Start: 02-02-2017 take 2.5 mg by inhal ation every six hours albuterol 0.083% Inh Claire 3 mL 2.5 mg, 3 mL, NEB, q6hr Shortness of breath or wheezing, Refill(s) 0 Start Date: 02/02/17 Status: Ordered Repeat number: 1 Start: 02-02-2017 take 2.5 mg by inhal [...] Ordered Start: 11-26-2016 End: 03-25-2019 Albuterol Sulfate 2.5 mg /3 mL (0.083 %) Solution For Nebulization Discontinued 1 INH INHALATION Four times daily November [...] inhaler Inhale 2 puffs if needed Active albuterol (PROVE NTIL;VENTOLIN) 90 MCG/ACT inhaler Inhale 2 puffs into the lungs as needed. Active take 2 puff(s) by in halation every four hours as needed Albuterol Sulfate HFA 2 puffs as needed Inhalation q4h PRN for 30 days Not-Taking take 2 puff(s) by in halation every four hours as needed Albuterol Sulfate HFA 2 puffs as needed Inhalation q4h PRN for 30 days Active albuterol sulfate HFA 108 (90 Base) MCG/ACT inhaler 2 puff (1 source) Start: 12-14-2019 2 puff, Inhala tion, PRN, Shortness of Breath, Starting 12/14/19 at 0331 [id number] Med-Rael-Jhm-Asb-C (3 sources) Osmotic Laxative, Vitamin C Start: 04-23-2024 take 1 dose by mouth once in the evening [id number] Fof-Uses-Zuw-Asb-C (Plenvu) 140-9-5.2 gram powder in packet, sequential Active 140 ML PO Once 1 April 23, 2024 1:00am at 4:00 pm take first dose followed by 16 oz glass of liquid take second dose at 11:00 pm followed by a 16 oz glass of liquid Start: 04-23-2024 take 1 dose by mouth once in the evening [id number] Try-Qofu-Sag-Asb-C (Plenvu) 140-9-5.2 gram powder in packet, sequential Active 140 ML PO Once 1 April 23, 2024 12:00am at 4:00 pm take first dose followed by 16 oz glass of liquid take second dose at 11:00 pm followed by a 16 oz glass of liquid azithromycin 250 mg oral tablet (20 sources) [...] day(s), # 6 tab(s), Refills(s) 0, Pharmacy: [id number], 150, cm, 01/09/22 18:47:00 EST, Height/Length Dosing, [...] 50ml minibag cephalexin 500 mg oral capsule (18 sources) Cephalosporin Antibacterial Start: 12-18-2019 End: 12-28-2019 [...] 500 MG PO Four times daily 40 10 March 01, 2018 1:00am May 07, 2018 11:24pm cetirizine hydrochloride 10 mg chewable tablet (11 sources) Histamine-1 Receptor Antagonist cetirizine (ZyrTEC) 10 MG chewable tablet Chew Daily. Active clindamycin 300 mg oral capsule (18 sources) Lincosamide Antibacterial Start: 07-22-19 End: 08-01-19 take 1 capsule by mouth every eight hours clindamycin 300 mg oral cap 300 mg = 1 cap(s), Oral, q8hr, X 10 day(s), # 30 cap(s), Refills(s) 0, [facility]: [facility], 150, cm, 07/20/21 23:23:00 EDT, Height/Length Dosing, 70, kg, 07/20/21 23:23:00 EDT, Weight Dosing Start Date: 07/21/21 Stop Date: 07/31/21 Status: Ordered Start: 03-26-2019 End: 04-24-2019 take 1 capsule by mouth four times daily Clindamycin Hcl 300 mg Capsule Discontinued 300 MG PO Four times daily 40 March 26, 2019 1:00am April 24, 2019 12:24pm dicyclomine hydrochloride 10 mg oral capsule (20 sources) Anticholinergic Start: 08-27-2023 End: 09-03-2023 take 1 capsule by mouth four times daily Bentyl 10 mg Cap 10 mg = 1 cap(s), Oral, QID, X 7 day(s), # 28 cap(s), Refills(s) 0, Pharmacy: [id number], 150, cm, 08/27/23 19:10:00 EDT, Height/Length Dosing, 95.7, kg, 08/27/23 19:10:00 EDT, Weight Dosing Start Date: 08/27/23 Stop Date: 09/03/23 Status: Ordered Start: 07-21-2023 End: 09-20-2023 take 1 tablet by mouth twice daily Dicyclomine 20 mg Tablet Discontinued 20 MG PO Twice daily 2 July 21, 2023 12:00am September 20, 2023 12:46am Start: 04-06-2021 take 2 capsules by m out four times daily Bentyl 10 mg Cap 20 mg = 2 cap(s), Oral, QID, # 20 cap(s), Refills(s) 0, Pharmacy: [address], 149, cm, 04/06/21 9:58:00 EST, Height/Length Dosing, 85, kg, 04/06/21 9:58:00 EST, Weight Dosing Start Date: 04/06/21 Status: Ordered Quantity: 20.0 Unit: cap(s) Repeat number: 1 Start: 07-19-2017 End: 08-18-2017 take 1 tablet by mouth four times daily Dicyclomine 20 mg tablet Discontinued 20 MG PO Four times daily 120 July 19, 2017 12:00am August 17, 2017 12:00am August 18, 2017 12:02am docusate [...] First dose on Suzan 01/09/19 at 0900 [id number] 0.3 ml EPINEPHrine 1 mg/ml auto-injector (20 sources) alpha-Adrenergic Agonist, beta-Adrenergic Agonist, Catecholamine Start: 11-24-2020 EpiPen 2-Juan 0.3 MG/0.3ML as directed Injection as needed for anaphylactic reaction for 30 days Oct, Active ergocalciferol 1.25 mg oral capsule (5 sources) Provitamin D2 Compound Start: 12-22-2019 take 1 capsule by mouth every week vitamin D (ERGOCALCIFEROL) 1.25 MG (77661 UT) CAPS capsule Take 1 capsule by mouth once a week 8 capsule 12/22/2019 Active Start: 12-22-2019 take 1 capsule by mo uth every week vitamin D (ERGOCALCIFEROL) 1.25 MG (67411 UT) CAPS capsule Take 1 capsule by mouth once a week 8 capsule 0 12/22/2019 Active Start: 12-15-2019 vitamin D (ERG OCALCIFEROL) capsule 50,000 Units ethinyl estradiol 0.035 mg / norgestimate 0.25 mg oral tablet (7 sources) Progestin, Estrogen Start: 01-02-2024 End: 01-01-2025 take 1 tablet by mouth once daily norgestimate-ethinyl estradiol (Sprintec 28) 0.25-35 MG-MCG tablet Indications: Menometrorrhagia Take 1 tablet by mouth Daily Continuous active pills only 112 tablet 4 01/02/2024 01/01/2025 Active famotidine 20 mg oral tablet (20 sources) Histamine-2 Receptor Antagonist Start: 12-15-2018 End: 09-20-2023 take 1 tablet by mouth twice daily Pepcid 20 mg Tab 20 mg = 1 tab(s), Oral, BID, # 60 tab(s), Refills(s) 0, [facility]acy: [facility], 150, cm, 05/27/22 20:23:00 EDT, Height/Length Dosing, 70, kg, 07/22/21 20:23:00 EDT, Weight Dosing Start Date: 07/22/21 Status: Ordered Quantity: 60.0 Unit: tab(s) Repeat number: 1 30 actuat fluticasone furoate 0.2 mg/actuat / vilanterol 0.025 mg/actuat dry powder inhaler (15 sources) Corticosteroid, beta2-Adrenergi c Agonist Start: 10-11-2018 take 1 puff(s) by inhalation once daily Breo Ellipta 200-25 MCG/INH 1 puff Inhalation Once a day for 30 days Sep, Active Start: 10-11-2018 Indomethacin (20 sources) Nonsteroidal Anti-inflammatory Drug Start: 02-14-2019 indomethacin Refills(s) 0 Start Date: 02/14/19 Status: Ordered Repeat number: 1 Start: 02-14-2019 indomethacin R efills(s) 0 Start Date: 02/14/19 Status: Ordered ketorolac tromethamine 10 mg oral tablet (20 sources) Nonsteroidal Anti-inflammatory Drug, Cyclooxygenase Inhibitor Start: 01-06-2024 take 1 tablet by mouth every six hours as needed for pain and pain ketorolac (Toradol) 10 MG tablet Take 10 mg by mouth every 6 (six) hours if needed for mild pain or moderate pain 01/06/2024 Active Start: 10-27-2023 30 mg, IntraVE Nous, ONCE, 1 dose, On 10/27/23 at 1245 Start: 11-06-2022 End: 04-06-2023 take 1 tablet by mouth three times daily as needed for pain Ketorolac 10 mg tablet Discontinued 10 MG PO Three times daily as needed for pain 11 28November 06, 2022 12:00am April 06, 2023 2:52pm Start: 03-10-2020 End: 05-22-2023 take 1 tablet by mouth every six hours as needed for pain Ketorolac 10 mg tablet Discontinued 10 MG PO Q6H as needed for pain April 06, 2023 1:00am May 22, 2023 11:53am Start: 03-10-2020 ketorolac (TOR ADOL) injection 15 mg Start: 12-13-2019 End: 12-13-2019 ketorolac (TORADOL) injectio n 30 mg Start: 01-14-2019 End: 01-14-2019 ketorolac (TORADOL) injectio n 15 mg Start: 12-19-2018 End: 12-19-2018 ketorolac (TORADOL) injectio n 15 mg levocetirizine dihydrochloride 5 mg oral tablet (20 sources) Histamine-1 Receptor Antagonist Start: 03-02-2022 take 2 tablets by mouth every twenty-four hours Xyzal 5 MG 2 tablets Orally Once a day for 90 days Feb, Active lidocaine 0.04 mg/mg medicated patch (20 sources) Antiarrhythmic, Amide Local Anesthetic Start: 10-27-2023 End: 11-26-2023 apply 1 dose transdermal route once daily lidocaine 4 % external patch Place 1 patch onto the skin daily 30 patch 10/27/2023 11/26/2023 Active Start: 12-27-2021 End: 05-16-2023 lidocaine Top 5% film Patch 1 patch(es), Topical, Daily, 7 patch(es), Refill(s) 0, apply 12 hours on and 12 hours off daily, [facility] #[id number], 150, cm, 12/27/21 20:34:00 EDT, Height/Length Dosing, 75, kg, 12/27/21 20:34:00 EDT, Weight Dosing Start Date: 12/27/21 Status: Ordered Quantity: 7.0 Unit: patch(es) Repeat number: 1 Start: 12-13-2019 lidocaine 4 % external patch 1 patch meloxicam 15 mg oral tablet (20 sources) Nonsteroidal Anti-inflammatory Drug Start: 05-11-2021 take 1 tablet by mouth once daily meloxicam 15 mg oral tablet 15 mg = 1 tab(s), Oral, Daily, # 30 tab(s), Refills(s) 0 Start Date: 09/13/21 Status: Ordered Quantity: 30.0 Unit: tab(s) Repeat number: 1 metFORMIN hydrochloride 500 mg oral tablet (20 sources) Biguanide Start: 02-13-2019 metformin 500 mg oral tablet 500 mg = 1 tab(s), Oral, As Directed, Refills(s) 0 Start Date: 02/13/19 Status: Ordered Repeat number: 1 METFORMIN HCL PO Take by mouth 0 Active methocarbamol 750 mg oral tablet (1 source) Muscle Relaxant Start: 10-27-2023 End: 11-06-2023 take 1 tablet by mouth four times daily methocarbamol (ROBAXIN-750) 750 MG tablet Take 1 tablet by mouth 4 times daily for 10 days 40 tablet 10/27/2023 11/06/2023 Active methylPREDNISolone 4 mg oral tablet (8 sources) Corticosteroid Start: 04-11-2022 Medrol (Juan) 4 MG as directed Orally for 6 days 14 Mar, 2022 Active Miralax 3350 17 gram packet (5 sources) Start: 07-26-2018 Miralax 3350 17 gram packet 17 gram, Oral, Daily, # 12 EA, Refills(s) 0 Start Date: 07/26/18 Status: Ordered mupirocin 0.02 mg/mg topical ointment (20 sources) RNA Synthetase Inhibitor Antibacterial Start: 05-23-2018 mupirocin Top 2% Oint 1 arely, Topical, TID, 15 gram, Refill(s) 0 Start Date: 05/23/18 Status: Ordered Quantity: 15.0 Unit: g Repeat number: 1 Start: 05-23-2018 mupirocin Top 2% Oint 1 arely, Topical, TID, 15 gram, Refill(s) 0 Start Date: 05/23/18 Status: Ordered naproxen 500 mg oral tablet (20 sources) Nonsteroidal Anti-inflammatory Drug Start: 06-22-2022 take 1 tablet by mouth every twelve hours naproxen 375 mg Tab 375 mg = 1 tab(s), Oral, q12hr, # 14 tab(s), Refills(s) 0, Pharmacy: [id number], 149, cm, 06/22/22 11:45:00 EDT, Height/Length Dosing, 70, kg, 06/22/22 11:45:00 EDT, Weight Dosing Start Date: 06/22/22 Status: Ordered Quantity: 14.0 Unit: tab(s) Repeat number: 1 Start: 03-26-2019 End: 04-06-2023 take 1 tablet by mouth twice daily Naprosyn 500 mg Tab 500 mg = 1 tab(s), Oral, BID, # 20 tab(s), Refills(s) 0, [facility]acy: [facility] #[id number], 149, cm, 06/28/22 17:51:00 EDT, Height/Length Dosing, 70, kg, 06/28/22 17:51:00 EDT, Weight Dosing Start Date: 06/28/22 Status: Ordered Quantity: 20.0 Unit: tab(s) Repeat number: 1 Start: 07-21-2018 End: 09-29-2018 take 1 tablet by mouth twice daily Naproxen 500 mg tablet Discontinued 500 MG PO Twice daily August [...] 2018 9:52am Start: 06-05-2017 End: 05-26-2018 take 2 capsules by mouth twice daily Omeprazole 20 mg capsule,delayed release(DR/EC) Discontinued 40 MG PO Twice daily June 05, 2017 12:00am May 26, 2018 9:45pm Start: 06-05-2017 End: 05-26-2018 take 40 mg by mouth twice daily Omeprazole Discontinue d 40 MG PO Twice daily June 05, [...] # 90 cap(s), Refills(s) 0, [facility]acy: [facility], 149, cm, 06/15/21 12:17:00 EDT, Height/Length Dosing, 97.9, kg, 06/15/21 12:17:00 EDT, Weight Dosing Start Date: 06/15/21 Stop Date: 09/13/21 Status: Ordered oxybutynin chloride 5 mg oral tablet (1 source) Cholinergic Muscarinic Antagonist Start: 08-11-2024 take 1 tablet by mouth three times daily as needed oxybutynin 5 mg Tab 5 mg = 1 tab(s), Oral, TID, PRN for urinary discomfort, # 30 tab(s), Refills(s) 0, Pharmacy: [facility] #37, 149, cm, 08/11/24 18:04:00 EDT, Height/Length Dosing, 102.5, kg, 08/11/24 18:04:00 EDT, Weight Dosing Start Date: 08/11/24 Status: Ordered Quantity: 30.0 Unit: tab(s) Repeat number: 1 pantoprazole 40 mg delayed release oral tablet (20 sources) Proton Pump Inhibitor Start: 10-24-[address] Tab Refills(s) 0 Start Date: 10/24/21 Status: Ordered Repeat number: 1 Start: 09-01-2020 take 1 tablet by wes once daily pantoprazole 40 mg Oral EC Tab 40 mg = 1 tab(s), Oral, Daily, # 30 tab(s), Refills(s) 0, [facility]acy: [facility], 149, cm, 08/31/20 23:13:00 EDT, Height/Length Dosing, 73.1, kg, 08/31/20 23:13:00 EDT, Weight Dosing Start Date: 09/01/20 Status: Ordered Start: 06-10-2020 Pantoprazole [address] Tab Refills(s) 0 Start Date: 10/24/21 Status: Ordered Start: 12-17-2019 End: 01-16-2020 take 1 tablet by mouth every twenty-four hours Pantoprazole Sodium 40 MG 1 tablet Orally Once a day for 30 day(s) May, Active Start: 02-14-2019 Protonix Refil ls(s) 0 Start Date: 02/14/19 Status: Ordered pantoprazole (PROTONIX) injection 40 mg (1 source) Start: 12-15-2019 pantoprazole (PROTONIX) injection 40 mg phenazopyridine hydrochloride 100 mg oral tablet (9 sources) Start: 08-11-2024 End: 08-14-2024 take 1 tablet by mouth three times daily Pyridium 100 mg Tab 100 mg = 1 tab(s), Oral, TID, X 3 day(s), # 9 tab(s), Refills(s) 0, Pharmacy: [facility] #37, 149, cm, 08/11/24 18:04:00 EDT, Height/Length Dosing, 102.5, kg, 08/11/24 18:04:00 EDT, Weight Dosing Start Date: 08/11/24 Stop Date: 08/14/24 Status: Ordered Quantity: 9.0 Unit: tab(s) Repeat number: 1 Start: 01-19-2024 End: 04-23-2024 take 1 tablet by mouth three times daily as needed for pain Phenazopyridine (Pyridium) 100 mg tablet Discontinued 100 MG PO Three times daily as needed for pain January 19, 2024 1:00am April 23, 2024 10:45am Start: 09-20-2023 End: 04-23-2024 take 1 tablet by mouth three times daily as needed for pain Phenazopyridine (Pyridium) 200 mg tablet Discontinued 200 MG PO Three times daily as needed for pain September 20, 2023 12:00am April 23, 2024 10:45am administer with a full glass of water with each meal polyethylene glycol 3350 23525 mg powder for oral solution (20 sources) Osmotic Laxative Start: 07-26-2018 take 17 [IU] by mouth once daily Miralax 3350 17 gram packet 17 gram, Oral, Daily, # 12 EA, Refills(s) 0 Start Date: 07/26/18 Status: Ordered Quantity: 12.0 Unit: EA Repeat number: 1 Start: 07-26-2018 take 17 g by mouth once daily Miralax 3350 17 gram packet 17 gm, Oral, Daily, # 24 EA, Refills(s) 0 Start Date: 09/03/23 Status: Ordered Quantity: 24.0 Unit: EA Repeat number: 1 polyethylene glycol 3350 with electrolytes Oral Pwdr for Claire 4000 mL (NuLytely) (20 sources) Start: 06-15-2021 take 1 dose by mouth once polyethylene glycol 3350 with electrolytes Oral Pwdr for Claire 4000 mL (NuLytely) See Instructions, 1 EA, Refill(s) 0, PER PHYSICIAN INSTRUCTIONS. PRIOR TO COLONOSCOPY., [facility], 149, cm, 06/15/21 12:17:00 EDT, Height/Length Dosing, 97.9, kg, 06/15/21 12:17:00 EDT, Weight Dosing Start Date: 06/15/21 Status: Ordered Quantity: 1.0 Unit: EA Repeat number: 1 Start: 06-15-2021 take 1 dose by mouth once poly ethylene glycol 3350 with electrolytes Oral Pwdr for Claire 4000 mL (NuLytely) See Instructions, 1 EA, Refill(s) 0, PER PHYSICIAN INSTRUCTIONS. PRIOR TO COLONOSCOPY., [facility], 149, cm, 06/15/21 12:17:00 EDT, Height/Length Dosing, 97.9, kg, 06/15/21 12:17:00 EDT, Weight Dosing Start Date: 06/15/21 Status: Ordered predniSONE 20 mg oral tablet (20 sources) Start: 01-25-2022 End: 01-30-2022 take 2 tablets by mouth once daily predniSONE 20 mg Tab 40 mg = 2 tab(s), Oral, Daily, X 5 day(s), # 10 tab(s), Refills(s) 0, Pharmacy: [facility] #[id number], 150, cm, 01/25/22 0:07:00 EST, Height/Length Dosing, 96, kg, 01/25/22 0:07:00 EST, Weight Dosing Start Date: 01/25/22 Stop Date: 01/30/22 Status: Ordered Start: 04-24-2019 End: 04-06-2023 take 3 tablets by mouth once daily Prednisone 20 mg tablet Discontinued 60 MG PO Daily April 24, 2019 1:00am April 06, 2023 2:52pm Start: 04-24-2019 End: 04-06-2023 take 60 mg by mouth once daily Prednisone Discontinued 60 MG PO Daily April 24, 2019 1:00am April 06, 2023 2:52pm Start: 10-27-2018 End: 12-15-2018 take 1 tablet by mouth once daily Prednisone 50 mg tablet Discontinued 50 MG PO Daily 06 30October 27, 2018 12:00am December 15, 2018 9:51am Start: 08-19-2018 End: 09-29-2018 take 60 mg by mouth once daily Prednisone Discontinued 60 MG PO Daily August 19, 2018 12:00am September 29, 2018 7:03am Start: 01-21-2018 End: 02-04-2018 take 2 tablets by mouth once daily in the morning Prednisone 20 mg tablet Discontinued 40 MG PO Every morning 11 30January 21, 2018 1:00am February 04, 2018 12:19pm administer with food or milk Start: 01-21-2018 End: 02-04-2018 take 40 mg by mouth once daily in the morning Prednisone Discontinued 40 MG PO Every morning 11 30January 21, 2018 1:00am February 04, 2018 12:19pm administer with food or milk Start: 12-05-2015 End: 01-09-2019 take 3 tablets by mouth once daily Prednisone 20 mg tablet Discontinued 60 MG PO Daily August 19, 2018 12:00am September 29, 2018 7:03am ProAir HFA 90 mcg/inh inhalation aerosol (20 sources) Start: 02-02-2017 take 2 puff(s) by inhalation four times daily ProAir HFA 90 mcg/inh inhalation aerosol 2 puff(s), Inhalation, QID Shortness of breath or wheezing, Refill(s) 0 Start Date: 02/02/17 Status: Ordered Repeat number: 1 Start: 02-02-2017 take 2 puff(s) by in halation four times daily ProAir HFA 90 mcg/inh inhalation aerosol 2 puff(s), Inhalation, QID Shortness of breath or wheezing, Refill(s) 0 Start Date: 02/02/17 Status: Ordered Propranolol (9 sources) beta-Adrenergic Chen Proprano lol HCl (INDERAL PO) Take by mouth. Verify dosage. Active Propranolol HCl (INDERAL PO) Take by mouth. Verify dosage. 0 Active sertraline 50 mg oral tablet (20 sources) Serotonin Reuptake Inhibitor Start: 03-17-2022 take 1 tablet by mouth every twenty-four hours Zoloft 50 MG 1 tablet Orally Once a day for 90 days Feb, Active sulfamethoxazole 800 mg / trimethoprim 160 mg oral tablet (20 sources) Dihydrofolate Reductase Inhibitor Antibacterial, Sulfonamide Antimicrobial Start: 08-11-2024 End: 08-18-2024 Bactrim D.S. 800 mg-160 mg Tab 1 tab(s), Oral, BID for 7 day(s), 14 tab(s), Refill(s) 0, [facility] #[facility], 149, cm, 08/11/24 18:04:00 EDT, Height/Length Dosing, 102.5, kg, 08/11/24 18:04:00 EDT, Weight Dosing Start Date: 08/11/24 Stop Date: 08/18/24 Status: Ordered Quantity: 14.0 Unit: tab(s) Repeat number: 1 Start: 07-22-2024 End: 07-27-2024 Bactrim D.S. 800 mg-160 mg T ab 1 tab(s), Oral, BID for 5 day(s), 10 tab(s), Refill(s) 0, [facility] #37, 149, cm, 07/22/24 17:18:00 EDT, Height/Length Dosing, 94.4, kg, 07/22/24 18:10:00 EDT, Weight Dosing Start Date: 07/22/24 Stop Date: 07/27/24 Status: Ordered Quantity: 10.0 Unit: tab(s) Repeat number: 1 Start: 09-20-2023 End: 04-23-2024 take 1 tablet by mouth twice daily Sulfamethoxazole-Trimethoprim (Bactrim Ds) 800-160 mg tablet Discontinued 1 TAB PO Twice daily September 20, 2023 12:00am April 23, 2024 10:45am Start: 12-01-2021 take 1 tablet by wes th every twelve hours Bactrim DS 800-160 MG 1 tablet Orally Twice a day for 7 days Nov, Active Start: 11-08-2021 End: 11-13-2021 Bactrim 400 mg-80 mg Tab 2 t ab(s), Oral, BID for 5 day(s), 20 tab(s), Refill(s) 0, [facility] #[id number], 150, cm, 11/08/21 6:49:00 EDT, Height/Length Dosing, 75, kg, 11/08/21 6:49:00 EDT, Weight Dosing Start Date: 11/08/21 Stop Date: 11/13/21 Status: Ordered Start: 02-04-2018 End: 02-07-2018 take 1 tablet by mouth twice daily Sulfamethoxazole-Trimethoprim (Bactrim Ds) 800-160 mg tablet Discontinued 1 TAB PO Twice daily 6 February 04, 2018 1:00am February 06, 2018 1:00am February 07, 2018 1:02am Start: 01-01-2018 End: 01-08-2018 take 1 tablet by mouth twice daily Sulfamethoxazole-Trimethoprim (Bactrim Ds) 800-160 mg tablet Discontinued 1 TAB PO Twice daily 14 January 01, 2018 1:00am January 07, 2018 1:00am January 08, 2018 1:01am Start: 06-17-2017 End: 06-27-2017 take 1 tablet by mouth twice daily Sulfamethoxazole-Trimethoprim (Bactrim Ds) 800-160 mg tablet Discontinued 1 TAB PO Twice daily 20 June 17, 2017 12:00am June 26, 2017 12:00am June 27, 2017 12:01am tamsulosin hydrochloride 0.4 mg oral capsule (7 sources) alpha-Adrenergic Chen Start: 09-03-2023 take 1 capsule by mouth once daily Flomax 0.4 mg Cap 0.4 mg = 1 cap(s), Oral, Daily, # 10 cap(s), Refills(s) 0, Pharmacy: [facility] #37, 149, cm, 07/22/24 17:18:00 EDT, Height/Length Dosing, 94.4, kg, 07/22/24 18:10:00 EDT, Weight Dosing Start Date: 07/22/24 Status: Ordered Quantity: 10.0 Unit: cap(s) Repeat number: 1 traMADol hydrochloride 50 mg oral tablet (20 [...] Pain, # 7 tab(s), Refills(s) 0, Pharmacy: [facility] #37, 149, cm, 11/20/20 20:58:00 EDT, Height/Length Dosing, 76, kg, 11/20/20 20:58:00 EDT, Weight Dosing Start Date: 11/21/20 Status: Ordered Quantity: 7.0 Unit: tab(s) Repeat number: 1 Indications: Pain, unspecified; Crushing injury of unspecified foot, initial encounter; Start: 07-30-2019 take 1 tablet by wes th once daily at bedtime as needed traMADol HCl 50 MG 1 tablet as needed Orally Once a day at bedtime for 10 days Jul, Not-Taking Zofran ODT 4 mg Tab-Dis (20 sources) Start: 08-11-2024 take 1 tablet by mouth every eight hours as needed for nausea Zofran ODT 4 mg Tab-Dis 4 mg = 1 tab(s), Oral, q8hr, PRN Nausea/Vomiting, # 20 tab(s), Refills(s) 0, Pharmacy: [facility] #37, 149, cm, 08/11/24 18:04:00 EDT, Height/Length Dosing, 102.5, kg, 08/11/24 18:04:00 EDT, Weight Dosing Start Date: 08/11/24 Status: Ordered Quantity: 20.0 Unit: tab(s) Repeat number: 1 Start: 09-03-2023 take 1 tablet by wes th every eight hours Zofran ODT 4 mg Tab-Dis 4 mg = 1 tab(s), Oral, q8hr, # 12 tab(s), Refills(s) 0 Start Date: 09/03/23 Status: Ordered Quantity: 12.0 Unit: tab(s) Repeat number: 1 Start: 09-03-2023 take 1 tablet by wes th every eight hours Zofran ODT 4 mg Tab-Dis 4 mg = 1 tab(s), Oral, q8hr, # 12 tab(s), Refills(s) 0 Start Date: 09/03/23 Status: Ordered Start: 08-27-2023 take 1 tablet by wes th every eight hours as needed for nausea Zofran ODT 4 mg Tab-Dis 4 mg = 1 tab(s), Oral, q8hr, PRN Nausea/Vomiting, # 12 tab(s), Refills(s) 0, Pharmacy: [facility] #37, 150, cm, 08/27/23 19:10:00 EDT, Height/Length Dosing, 95.7, kg, 08/27/23 19:10:00 EDT, Weight Dosing Start Date: 08/27/23 Status: Ordered Quantity: 12.0 Unit: tab(s) Repeat number: 1 Start: 08-27-2023 take 1 tablet by wes th every eight hours as needed for nausea Zofran ODT 4 mg Tab-Dis 4 mg = 1 tab(s), Oral, q8hr, PRN Nausea/Vomiting, # 12 tab(s), Refills(s) 0, Pharmacy: [facility] #37, 150, cm, 08/27/23 19:10:00 EDT, Height/Length Dosing, 95.7, kg, 08/27/23 19:10:00 EDT, Weight Dosing Start Date: 08/27/23 Status: Ordered Start: 08-25-2022 take 1 tablet by wes th every eight hours as needed for nausea Zofran ODT 4 mg Tab-Dis 4 mg = 1 tab(s), Oral, q8hr, PRN Nausea/Vomiting, # 20 tab(s), Refills(s) 0, Pharmacy: [facility] #[id number], 149, cm, 08/25/22 17:36:00 EDT, Height/Length Dosing, 70, kg, 08/25/22 17:36:00 EDT, Weight Dosing Start Date: 08/25/22 Status: Ordered Quantity: 20.0 Unit: tab(s) Repeat number: 1 Start: 08-25-2022 take 1 tablet by wes th every eight hours as needed for nausea Zofran ODT 4 mg Tab-Dis 4 mg = 1 tab(s), Oral, q8hr, PRN Nausea/Vomiting, # 20 tab(s), Refills(s) 0, Pharmacy: [facility] #[id number], 149, cm, 08/25/22 17:36:00 EDT, Height/Length Dosing, 70, kg, 08/25/22 17:36:00 EDT, Weight Dosing Start Date: 08/25/22 Status: Ordered Start: 08-30-2020 take 1 tablet by [facility] three times daily Zofran ODT 4 mg Tab-Dis 4 mg = 1 tab(s), Oral, TID, # 15 tab(s), Refills(s) 0, Pharmacy: [facility], 150, cm, 08/04/20 21:26:00 EDT, Height/Length Dosing, 72.3, kg, 08/04/20 21:26:00 EDT, Weight Dosing Start Date: 08/30/20 Status: Ordered Quantity: 15.0 Unit: tab(s) Repeat number: 1 Start: 08-30-2020 take 1 tablet by [facility] three times daily Zofran ODT 4 mg Tab-Dis 4 mg = 1 tab(s), Oral, TID, # 15 tab(s), Refills(s) 0, Pharmacy: [facility], 150, cm, 08/04/20 21:26:00 EDT, Height/Length Dosing, 72.3, kg, 08/04/20 21:26:00 EDT, Weight Dosing Start Date: 08/30/20 Status: Ordered Completed/Discontinued Medications Medication Drug Class(es) Dates Sig (Normalized) Sig (Original) acetaminophen 325 mg / HYDROcodone bitartrate 5 mg oral tablet (20 sources) Opioid Agonist Start: 06-13-2023 End: 07-14-2023 take 1 tablet by mouth every four to six hours as needed for pain Hydrocodone-Acetami nophen 5-325 mg tablet Discontinued 1 TAB PO EVERY 4-6 HOURS as needed for pain 10 June 13, 2023 July 14, 2023 4:15pm Start: 05-16-2023 End: 05-22-2023 take 1 tablet by mouth every four to six hours as needed for pain Hydrocodone-Acetaminophen 5-325 mg table t Discontinued 1 TAB PO EVERY 4-6 HOURS as needed for pain 10 May 16, 2023 May 22, 2023 11:53am acetaminophen 325 mg / oxyCODONE hydrochloride 5 mg oral tablet (20 sources) Opioid Agonist Start: 09-20-2023 End: 04-23-2024 take 1 tablet by mouth every four to six hours as needed for pain Oxycodone-Acetaminophen (Percocet) 5-325 mg tablet Discontinued 1 TAB PO EVERY 4-6 HOURS as needed for severe pain (scale score 7-10) 4 September 20, 2023 April 23, 2024 10:45am Start: 06-22-2022 End: 09-05-2023 Percocet 5 mg-325 mg oral ta blet 1 tab(s), Oral, q6hr as needed for pain, 6 tab(s), Refill(s) 0, [facility] #[facility], 149, cm, 01/21/23 13:50:00 EST, Height/Length Dosing, 93.5, kg, 01/21/23 13:50:00 EST, Weight Dosing Start Date: 01/21/23 Status: Ordered Quantity: 6.0 Unit: tab(s) Repeat number: 1 Indications: Pain in right shoulder; Start: 09-13-2021 End: 09-16-2021 Percocet 5 mg-325 [...] 4 HOURS PRN, Pain Severe (7-10), Starting [facility] 01/09/19 at 0325 Maximum dose of [...] every six hours as needed for pain Oxycodone-Acetaminophen (Percocet) 5-325 mg tablet Discontinued 1 TAB PO Q6H as needed for pain 15 4 January 21, 2018 January 24, 2018 1:00am January 25, 2018 1:02am aluminum hydroxide 40 mg/ml / magnesium hydroxide [...] I VPB in 50 mL D5W minibag ciprofloxacin 500 mg oral tablet (5 sources) Quinolone Antimicrobial Start: 10-04-2023 End: 04-23-2024 take 1 tablet by mouth every two hours Ciprofloxacin Hcl (Cipro) 500 mg tablet Discontinued 500 MG PO Twice daily 08 09October 04, 2023 12:00am April 23, 2024 10:44am administer dose at least 2 hrs before/6 hrs after dairy products, calcium, zinc, and/or iron-containing products Start: 01-09-2019 End: 01-10-2019 ciprofloxacin (CIPRO) IVPB 4 00 mg 1 ml diphenhydrAMINE hydrochloride 50 mg/ml cartridge (1 source) Histamine-1 Receptor Antagonist Start: 01-08-2019 End: 01-08-2019 diphenhydrAMINE (BENADRYL) injection 25 mg FLUoxetine (2 sources) Serotonin Reuptake Inhibitor End: 01-09-2019 FLUOXETINE HCL PO Take by mouth. Verify dosage. 0 01/09/2019 Discontinued (Therapy completed) FLUOXETINE HCL P O Take by mouth. Verify dosage. 0 Active Fluticasone Propion-Salmeterol (16 sources) Corticosteroid, beta2-Adrenergic Agonist Start: 11-26-2016 End: 10-27-2018 Fluticasone Propion-Salmeterol (Advair Diskus) 500-50 mcg/dose Blister With Device Discontinued 1 INH INHALATION Twice daily November 25, 2016 11:00pm October 27, 2018 9:17am Start: 11-26-2016 End: 10-27-2018 Fluticasone Propion-Salmeter ol (Advair Diskus) 500-50 mcg/dose Blister With Device Discontinued 1 INH INHALATION Twice daily November 26, 2016 12:00am October 27, 2018 10:17am Fluticasone Furoate-Vilanter ol (10 sources) Start: 05-22-2023 End: 06-13-2023 Fluticasone Furoate-Vilanter ol (Breo Ellipta) 50-25 mcg/dose blister with device Discontinued 1 INH INHALATION Daily May 21, 2023 11:00pm June 13, 2023 10:35am Start: 05-22-2023 End: 06-13-2023 Fluticasone Furoate-Vilanter ol [...] 600 mg Start: 01-21-2018 End: 03-01-2018 take 1 tablet by mouth three times daily as needed for pain Ibuprofen 800 mg tablet Discontinued 800 MG PO Three times daily as needed for pain January 21, 2018 1:00am March 01, 2018 11:30am Start: 03-07-2015 take 1 tablet by wes every six hours as needed for pain [...] iohexol (OMNIPAQUE 350) solu tion 75 mL iopamidol (ISOVUE-370) 76 % injection 75 mL (1 source) Start: 10-27-2023 End: 10-27-2023 take 1 dose intravenously once 75 mL, IntraVENous, IMG ONCE PRN, 1 dose, Starting on 10/27/23 at 1328, Until 10/27/23 at 1346, Other Ketorolac Tromethamin (13 sources) Start: 05-30-2022 Ketorolac Tromethamin May, 60 mg levoFLOXacin 500 mg oral tablet (20 sources) Quinolone Antimicrobial Start: 01-13-2019 End: 01-12-2019 [...] 19, 2018 12:00am August 19, 2018 9:41am lurasidone hydrochloride 40 mg oral tablet (2 [...] 12-19-2018 End: 12-19-2018 morphine injection 4 mg nitrofurantoin, macrocrystals 25 mg / nitrofurantoin, monohydrate 75 mg oral capsule (3 sources) Nitrofuran Antibacterial Start: 01-19-2024 End: 04-23-2024 take 1 capsule by mouth twice daily at mealtime Nitrofurantoin Monohyd/M-Cryst (Macrobid) 100 mg capsule Discontinued 100 MG PO Twice daily 14 January 19, 2024 1:00am April 23, 2024 10:44am must administer with a meal/food ondansetron 4 mg disintegrating oral tablet (20 sources) Serotonin-3 Receptor Antagonist Start: 01-19-2024 End: 04-23-2024 take 1 tablet by mouth three times daily Ondansetron 4 mg tablet,disintegrati ng Discontinued 4 MG PO Three times daily 9 January 19, 2024 1:00am April 23, 2024 10:45am Start: 12-26-2023 take 1 tablet by wes every eight hours as needed for nausea and vomiting ondansetron ODT (Zofran-ODT) 4 MG disintegrating tablet Take 4 mg by mouth every 8 (eight) hours if needed for nausea or vomiting 12/26/2023 Active Start: 10-27-2023 End: 10-27-2023 4 mg, IntraVENous, ONCE, 1 d ose, On 10/27/23 at 1245 Start: 07-14-2023 End: 09-20-2023 take 1 tablet by mouth once daily as needed for nausea and vomiting Ondansetron 8 mg tablet,disintegrating Discontinued 8 MG PO Daily as needed for nausea and vomiting 11 29July 14, 2023 12:00am September 20, 2023 12:47am Start: 05-12-2023 End: 06-13-2023 take 1 tablet by mouth four times daily as needed for nausea and vomiting Ondansetron 4 mg tablet,disintegrating Discontinued 4 MG PO Four times daily as needed for nausea and vomiting May 12, 2023 12:00am June 13, 2023 11:35am Start: 04-29-2021 take 1 tablet by wes th three times daily as needed Ondansetron 4 MG 1 tablet on the tongue and allow to dissolve Orally TID PRN for 10 days Apr, Active Start: 09-01-2020 End: 09-20-2023 take 1 tablet by mouth every six hours as needed for nausea Zofran ODT 4 mg Tab 4 mg = 1 tab(s), Oral, q6hr, PRN Nausea/Vomiting, # 12 tab(s), Refills(s) 0, Pharmacy: [address] [facility], 146, cm, 04/18/21 14:27:00 EST, Height/Length Dosing, 85, kg, 04/18/21 14:27:00 EST, Weight Dosing Start Date: 04/18/21 Status: Ordered Quantity: 12.0 Unit: tab(s) Repeat number: 1 Start: 03-10-2020 End: 03-10-2020 ondansetron (ZOFRAN) injecti [...] 8 mg Start: 11-03-2018 End: 12-15-2018 take 1 tablet by mouth every six hours as needed for nausea and vomiting Ondansetron 4 mg tablet,disintegrating Discontinued 4 MG PO Q6H as needed for nausea and vomiting November 03, 2018 12:00am December 15, 2018 9:51am Start: 07-21-2018 End: 08-19-2018 take 1 tablet by mouth three times daily as needed for nausea and vomiting Ondansetron 4 mg tablet,disintegrating Discontinued 4 MG PO Three times daily as needed for nausea and vomiting 10 July 21, 2018 12:00am August 19, 2018 9:41am Start: 05-08-2018 End: 05-12-2018 take 1 tablet by mouth every eight hours as needed for nausea and vomiting Ondansetron 8 mg tablet,disintegrating Discontinued 8 MG PO Q8H as needed for nausea and vomiting 10 May 08, 2018 12:00am May 11, 2018 12:00am May 12, 2018 12:02am Start: 11-24-2017 End: 11-25-2017 take 1 tablet by mouth three times daily Ondansetron Hcl (Zofran) 4 mg tablet Discontinued 4 MG PO Three times daily 15 November 24, 2017 12:00am November 28, 2017 12:00am November 25, 2017 7:16pm Start: 08-06-2017 End: 11-22-2017 take 1 tablet by mouth every four hours for nausea Ondansetron (Zofran Odt) 4 mg Tablet,Disintegrating Discontinued 4 MG PO Q4H as needed for Nausea August 06, 2017 12:00am November 22, 2017 [...] sources) Phenothiazine Start: 07-06-2023 End: 09-20-2023 Promethazine 25 mg suppository Discontinued 25 MG MA Q6H as needed for Nausea July 06, 2023 12:00am September 20, 2023 12:47am Start: 07-22-2021 take 12.5 mg rectal route every eight hours as needed for nausea Phenergan 12.5 mg Supp 12.5 mg = 1 supp, Rectal, q8hr, PRN as needed for nausea/vomiting, second line, # 6 EA, Refills(s) 0, Pharmacy: [facility] #[id number], 149, cm, 08/25/22 17:36:00 EDT, Height/Length Dosing, 70, kg, 08/25/22 17:36:00 EDT, Weight Dosing Start Date: 08/25/22 Status: Ordered Quantity: 6.0 Unit: EA Repeat number: 1 Start: 04-06-2021 take 1 tablet by wes th every six hours as needed for nausea promethazine 25 mg Tab 25 mg = 1 tab(s), Oral, q6hr, PRN as needed for nausea/vomiting, # 12 tab(s), Refills(s) 0, Pharmacy: [facility] #[id number], 150, cm, 01/25/22 0:07:00 EST, Height/Length Dosing, 96, kg, 01/25/22 0:07:00 EST, Weight Dosing Start Date: 01/25/22 Status: Ordered Quantity: 12.0 Unit: tab(s) Repeat number: 1 Start: 12-14-2019 promethazine ( PHENERGAN) tablet 12.5 mg Start: 03-31-2019 PROMETHAZINE ( Phenergan) up to 50 mg Mar, 25 mg Start: 11-25-2017 End: 03-01-2018 Promethazine 50 mg supposito ry Discontinued 50 MG MA Q6H as needed for nausea and vomiting November 25, 2017 12:00am March 01, 2018 11:30am Start: 09-20-2017 End: 11-24-2017 take 1 tablet by mouth every six hours as needed for nausea and vomiting Promethazine 25 mg tablet Discontinued 25 MG PO Q6H as needed for nausea and vomiting September 20, 2017 12:00am November 24, 2017 [...] Care, After every IV line use, Starting 12/14/19 at 0331 Start: 12-14-2019 End: 12-15-2019 Intravenous, at 125 mL/hr, CONTINUOUS, Starting 12/14/19 at 0345 Start: 12-13-2019 End: 12-14-2019 [...] Care, After every IV line use, Starting Suzan 01/09/19 at 0325 Start: 12-19-2018 End: 12-19-2018 0.9 % sodium chloride bolus sucralfate 1000 mg oral tablet (20 sources) Aluminum Complex Start: 11-10-2018 End: 12-15-2018 take 1 tablet by mouth at bedtime Sucralfate (Carafate) 1 gram tablet Discontinued 1 GM PO Before meals and at bedtime 60 November 10, 2018 12:00am December 15, 2018 9:51am Start: 06-05-2017 End: 07-17-2017 take 1 tablet by mouth once daily Sucralfate 1 gram tablet Discontinued 1 GM PO Daily June 05, 2017 12:00am July 17, 2017 9:12pm Start: 01-15-2015 End: 01-09-2019 take 1 tablet by mouth four times daily 1 hour(s) before bedtime Sucralfate (Carafate) 1 gram tablet Discontinued 1 GM PO Four times daily 60 July 11, 2017 12:00am November 22, 2017 11:02am administer 1 hour before meals and at bedtime tiZANidine 4 mg oral tablet (20 sources) Central alpha-2 Adrenergic Agonist Start: 04-17-2023 End: 05-22-2023 take 1 tablet by mouth three times daily as needed for pain Tizanidine 4 mg tablet Discontinued 4 MG PO Three times daily as needed for muscle pain April 17, 2023 1:00am May 22, 2023 11:53am Start: 04-06-2023 End: 06-13-2023 take 1 capsule by mouth three times daily as needed Tizanidine 4 mg capsule Discontinued 4 MG PO Three times daily as needed for muscle spasticity April 06, 2023 1:00am June 13, 2023 11:35am topiramate (2 sources) End: 01-09-2019 Topiramate (TOPAMAX PO) Take by mouth daily. Verify dosage. 0 01/09/2019 Discontinued (Therapy completed) Topiramate (TOPA MAX PO) Take by mouth daily. Verify dosage. 0 Active traZODone hydrochloride 100 mg oral tablet (20 sources) Serotonin Reuptake Inhibitor Start: 12-01-2021 take 1 tablet by mouth every twenty-four hours traZODone HCl 50 MG 1 tablet at bedtime as needed Orally Once a day for 30 day(s) Nov, Active Start: 12-01-2021 End: 01-10-2024 traZODone (Desyrel) 100 MG t ablet 07/19/2022 01/10/2024 Discontinued Problems Active Problems Problem Classification Problem Date [...] Chronic Attention-deficit conduct and disruptive behavior disorders (9 sources) Adult attention deficit hyperactivity disorder ; Translations: [Attention-deficit hyperactivity disorder, unspecified type] 11-24-2010 Chronic Attention-deficit, conduct, and disruptive behavior disorders (20 sources) Attention deficit hyperactivity disorder 01-04-2015 Chronic Calculus of urinary tract (20 sources) Kidney stone; Translations: [Calculus of kidney] Onset: 4 11-08-2021 Episodic Cardiac dysrhythmias (20 sources) Irregular heart beat; Translations: [Cardiac arrhythmia, unspecified] Chronic Chronic obstructive pulmonary disease and bronchiectasis (20 sources) Bronchitis; Translations: [Bronchitis, not specified as acute or chronic] 03-26-2019 Episodic Diabetes mellitus without complication (20 sources) Diabetes mellitus 02-14-2019 Chronic Diseases of white blood cells (17 sources) Leukocytosis; Translations: [Elevated white blood cell count, unspecified] 07-18-2017 Chronic Diseases of white blood cells (8 sources) Band neutrophil count above reference range; Translations: [Bandemia] 01-10-2019 Episodic Disorders of teeth and jaw (16 sources) Dental caries; Translations: [Dental caries, unspecified] 03-26-2019 Episodic E Codes: Fall (20 sources) Fall; Translations: [Unspecified fall, initial encounter] Onset: 2 Episodic Endometriosis (2 sources) Uterine adenomyosis; Translations: [Adenomyosis] 02-06-2024 Chronic Epilepsy; convulsions (20 sources) Seizure disorder; Translations: [Epilepsy, unspecified, not intractable, without status epilepticus] Chronic Epilepsy; convulsions (20 sources) Seizure; Translations: [Unspecified convulsions] 11-24-2010 Episodic Esophageal disorders (20 sources) Gastroesophageal reflux disease; Translations: [Gastro-esophageal reflux disease without esophagitis] Chronic Fluid and electrolyte disorders (16 sources) Hyponatremia; Translations: [Hypo-osmolality and hyponatremia] 07-18-2017 Episodic Gastritis and duodenitis (20 sources) Chronic gastritis; Translations: [Unspecified chronic gastritis without bleeding] Onset: 2 Chronic Gastritis and duodenitis (16 sources) Gastritis; Translations: [Gastritis, unspecified, without bleeding] 12-15-2018 Episodic Gastroduodenal ulcer (except hemorrhage) (20 sources) Antral ulcer; Translations: [Gastric ulcer] 02-14-2019 Chronic Gastroduodenal ulcer (except hemorrhage) (16 sources) H/O: gastric ulcer; Translations: [Personal history of peptic ulcer disease] 07-18-2017 Episodic Gastrointestinal hemorrhage (20 sources) Hematemesis; Translations: [Hematemesis] Onset: 5 11-10-2018 Episodic Genitourinary symptoms and ill-defined conditions (2 sources) Blood in urine; Translations: [Hematuria, unspecified] Onset: 2 Episodic Headache; including migraine (20 sources) Migraine; Translations: [Migraine, unspecified, not intractable, without status migrainosus] Onset: 4 11-24-2010 Chronic Headache; including migraine (16 sources) Headache; Translations: [Headache] 09-29-2018 Episodic Immunizations and screening for infectious disease (2 sources) Patient encounter status; Translations: [Encounter for screening for human papillomavirus (HPV)] 01-10-2024 Episodic Malaise and fatigue (16 sources) Fatigue; Translations: [Other fatigue] 11-26-2016 Episodic Menstrual disorders (12 sources) Menometrorrhagia; Translations: [Excessive and frequent menstruation with irregular cycle] 01-02-2024 Chronic Mood disorders (20 sources) Bipolar disorder; Translations: [Affective psychosis] 11-24-2010 Chronic Nausea and vomiting (20 sources) Intractable nausea and vomiting; Translations: [Uncontrollable vomiting] Onset: 9 01-14-2019 Episodic Nonspecific chest pain (16 sources) Atypical chest pain; Translations: [Other chest pain] 09-07-2018 Episodic Nutritional deficiencies (5 sources) Vitamin D deficiency; Translations: [Vitamin D deficiency, unspecified] Onset: 0 12-15-2019 Chronic Other circulatory disease (16 sources) Pulmonary congestion ; Translations: [Other specified symptoms and signs involving the circulatory and respiratory systems] 09-29-2018 Episodic Other connective tissue disease (1 source) Pain in right arm; Translations: [Right arm pain] Episodic Other connective tissue disease (2 sources) Hand pain; Translations: [Pain in unspecified hand] Onset: 2 Episodic Other connective tissue disease (15 sources) Pain in lower limb; Translations: [Pain in left leg] 11-06-2022 Episodic Other diseases of kidney and ureters (20 sources) Kidney disease; Translations: [Other specified disorders of kidney and ureter] Chronic Other female genital disorders (4 sources) Pain in female genitalia on intercourse; Translations: [Unspecified dyspareunia] 01-02-2024 Chronic Other gastrointestinal disorders (2 sources) Abnormal feces; Translations: [Other fecal abnormalities] Onset: 2 Episodic Other gastrointestinal disorders (20 sources) Loose stool 06-15-2021 Episodic Other gastrointestinal disorders (1 source) Constipation, unspecified; Translations: [Constipation, unspecified] Onset: 4 Episodic Other gastrointestinal disorders (3 sources) Diarrhea; Translations: [Diarrhea, unspecified] 04-23-2024 Episodic Other gastrointestinal disorders (4 sources) Diarrhea, unspecified; Translations: [Diarrhea] Onset: 5 04-23-2024 Episodic Other nervous system disorders (20 sources) [...] Onset: 2 Chronic Other nervous system disorders (16 sources) Paresthesia of right upper limb; Translations: [Paresthesia of skin] 06-17-2017 Episodic Other nervous system disorders (10 sources) Acute postoperative pain; Translations: [Other acute postprocedural pain] 05-22-2023 Episodic Other non-traumatic joint disorders (2 sources) Pain of right shoulder joint; Translations: [Pain in right shoulder] Onset: 3 Episodic Other non-traumatic joint disorders (1 source) Pain in right knee; Translations: [Pain of right knee joint] Onset: 5 Episodic Other nutritional; endocrine; and metabolic disorders (10 sources) Obesity; Translations: [Obesity, unspecified] 11-24-2010 Chronic Other nutritional; endocrine; and metabolic [...] endocrine, nutritional and metabolic disease Episodic Other screening for suspected conditions (not mental disorders or infectious disease) (2 sources) Cancer cervix screening status; Translations: [Encounter for screening for malignant neoplasm of cervix] 01-10-2024 Episodic Other upper respiratory infections (1 source) Chronic sinusitis; Translations: [Chronic sinusitis, unspecified] Onset: 2 Chronic Other upper respiratory infections (19 sources) Streptococcal sore throat; Translations: [Streptococcal pharyngitis] Onset: 2 Episodic Ovarian cyst (20 sources) Hemorrhagic cyst of ovary; Translations: [Unspecified ovarian cyst, unspecified side] 05-12-2023 Episodic Ovarian cyst (1 source) Cyst [...] sources) Noncompliance with treatment; Translations: [Noncompliance] Episodic Spondylosis; intervertebral disc disorders; other back problems (11 sources) Displacement of lumbar intervertebral disc without myelopathy; Translations: [Other intervertebral disc displacement, lumbar region] Onset: 3 07-27-2022 Chronic Spondylosis; intervertebral disc disorders; other back problems (20 sources) Backache; Translations: [Dorsalgia, unspecified] Onset: 3 08-19-2018 Episodic Sprains and strains (20 sources) Sprain of ligament of finger; Translations: [Unspecified sprain of unspecified finger, initial encounter] Onset: 2 Episodic Substance-related disorders (20 sources) Smoker 02-14-2019 Chronic Comment on above: Added secondary to d ocumentation in Social History. Added secondary to d ocumentation in Social History. Suicide and intentional self-inflicted injury (1 source) Suicidal thoughts; Translations: [Suicidal ideations] Onset: 3 Episodic Superficial injury; contusion (16 sources) Contusion of hip; Translations: [Contusion of [...] left S92.912A] Onset: 11-24-2020 Resolved: 11-24-2020 Episodic Inflammatory diseases of female pelvic organs (19 sources) Acute vaginitis; Translations: [Bacterial vaginosis] 01-10-2019 Episodic Influenza (1 source) Influenza due to other identified influenza virus with other respiratory manifestations Onset: 06-15-2021 Resolved: 06-15-2021 Episodic Other connective tissue disease (12 sources) Radicular pain; Translations: [Neuralgia and neuritis, unspecified] Onset: 03-28-2023 03-28-2023 Episodic Other non-traumatic joint disorders (12 sources) Pain in right shoulder; Translations: [Pain in joint, shoulder region] Onset: 03-28-2023 03-28-2023 Episodic Poisoning by nonmedicinal substances (1 source) Toxic effect of venom of bees, accidental (unintentional), initial encounter; Translations: [Anaphylactic reaction to bee sting T63.441A] Onset: 11-24-2020 Resolved: 11-24-2020 Episodic Septicemia (except in labor) (9 sources) Sepsis; Translations: [Sepsis, unspecified organism] 01-10-2019 Episodic Unclassified (3 sources) Cough R05.9 Onset: 03-02-2021 Resolved: 06-15-2021 Unclassified (1 source) Exposure to 2019 novel coronavirus; Translations: [Contact with and (suspected) exposure to COVID19] Unclassified (1 source) Noncompliance Z91.199 Results Test Name Value Interpretation Reference Range Facility C Urineon 10-22-2024 Bacteria identified Cx Nom (U) Microbiology PROCEDURE: Urine Culture [R1] SOURCE: U CleanCatch BODY SITE: COLLECTED DATE/TIME: 10/20/2024 10:40 EDT RECEIVED DATE/TIME: 10/20/2024 12:28 EDT START DATE/TIME: 10/20/2024 12:28 EDT FREE TEXT SOURCE: John POWER, Peter Lopez PA-C, Peter Sauceda. FINAL REPORTS Final Report [] Verified Date/Time: 10/22/2024 06:59 EDT 75,000 cfu/ml Streptococcus agalactiae (Group B) Presumptive isolated. Penicillin is the drug of choice for Beta Hemolytic Streptococci Isolates. Routine susceptibility testing on Beta Hemolytic Streptococcus isolates is no longer performed. Susceptibilities will continue to be performed on Isolates from sterile body fluids and serious wound infections. <10,000 cfu/ml Mixed skin contaminants Performing Locations R1: This test was performed at: [facility], [address] [place] [address], [phone]- , [place], Normal [facility] Comment on above: Performed By: #### 2 [id number] #### [facility] [address] [place] [id number] ED Note-Physicianon 10-23-19 ED Note-Physician ED Note-Physician Basic Information Time Seen: John POWER, Peter Gupta 10/20/2024 09:48 Chief Complaint patient presents with cough, body aches, chills, wheezing, nausea and vomiting x 2 weeks History of Present Illness 34-year-old female reports to the ED with cough congestion chills wheezing and nausea and vomiting. Reports been gone for 2 weeks. States that she has bodyaches now. Denies any fevers. Reports just feels unwell. 34-year-old female reports to the ED with cough congestion chills wheezing and nausea and vomiting. Reports been on for 2 weeks. States that she has bodyaches now. Denies any fevers. Reports just feels unwell. States that she has tried medications recently, with no improvement. Nausea medicines are not giving things out of her. Reports history of nausea and vomiting. She denies any abdominal pain. No chest pain or shortness of breath. She reports history of smoking. No history of COPD. Review of Systems no other aggravating or relieving factors no other associated symptoms no other prior treatments or complaints. Family: Reviewed and noncontributory Social: lives at home Review of systems negative unless otherwise specified in the HPI. Physical Exam Vitals & Measurements T: 36.8 ???C(Oral) HR: 73(Monitored) RR: 16 BP: 115/88 SpO2: 98% HT: 149.86 cm WT: 95.5 kg BMI: 42.52 General: The patient appears well and in no apparent distress. Patient is resting comfortably on bed. Afebrile Skin: Warm, dry, no pallor noted. Head: Normocephalic, atraumatic Neck: No JVD Eye: PERRLA, EOMI ENT: Moist mucus membranes Cardiovascular: Regular rate. normal peripheral perfusion. Radial pulses +2 bilaterally Respiratory: No respiratory distress. no accessory muscle use. no obvious audible wheezing. Mild wheezing heard bilaterally Chest Wall: no deformity Musculoskeletal: normal ROM, no deformity, no swelling GI: No obvious distention. Abdomen soft. No rebound tenderness or guarding noted Neurological: A&O. moves all extremities equal strength and symmetry Psychiatric: Cooperative and appropriate Medical Decision Making 34-year-old female reports to the emergency department with concerns of cough congestion wheezing nausea vomiting. Symptoms been going on for 2 weeks now. Exam the patient here is concerning for wheezing. No abdominal tenderness. No chest pain or shortness of breath. Due to concerns. Do lab work as well as a chest x-ray. Lab work reviewed noted. No acute changes seen with her labs. She is not ill-appearing. Did give patient breathing treatment as well as Zofran. Did state improve her symptoms. The patient did feel comfortable discharge home. Chest x-ray was negative. Discussed likely bronchitis. Will treat with Medrol Dosepak and as well as azithromycin. Discussed return precautions. Follow-up with your primary care provider in 3 to 5 days. If symptoms worsen, do not improve, or new symptoms arise please report back to emergency department for further evaluation. The patient was understanding and agreeable to plan moving forward. []The patient has acute bronchitis/bronchiolitis and antibiotics were not prescribed or dispensed today.[SATISFIES MIPS PERFORMANCE] [x] The patient has acute bronchitis/bronchiolitis. Antibiotics were prescribed or dispensed because the patient meets one of the following: [MIPS PERFORMANCE EXCEPTION/EXCLUSION] [x] Patient has a medical reason for prescribing or dispensing an antibiotic. That reason is based on length of symptoms, likely bacterial source of infection. (ex. COPD, bacterial infection, acute sinusitis, etc.). [] Patient is currently on antibiotics or has been in the last 30 days. [] Patient's visit resulted in an inpatient admission. []The patient has acute bronchitis/bronchiolitisa nd antibiotics were prescribed or dispensed today. [DOES NOT SATISFY MIPS PERFORMANCE] I, Peter John, PA-C had a [id number] interaction with the patient. I personally performed a physical exam and medical decision making. I have verified the documentation by the student as accurately representing the information obtained. Assessment/Plan Bronchitis (J40: Bronchitis, not specified as acute or chronic) Orders: albuterol-ipratropium, 3 mL, Soln-Inh, Inhalation, Once, Stop date 10/20/24 9:59:00 EDT, STAT, Start date 10/20/24 9:59:00 EDT azithromycin, 250 mg, Oral, As Directed, # 6 tab(s), Refills(s) 0, Pharmacy: [facility], 149.9, cm, 10/20/24 9:52:00 EDT, Height/Length Dosing, 95.5, kg, 10/20/24 9:52:00 EDT, Weight Dosing methylPREDNISolone, = 1 tab(s), Oral, As Directed, Take as directed on pack, # 1 EA, Refills(s) 0, Pharmacy: [facility], 149.9, cm, 10/20/24 9:52:00 EDT, Height/Length Dosing, 95.5, kg, 10/20/24 9:52:00 EDT, Weight Dosing ondansetron, 4 mg = 2 mL, Injection, IV Push, Once, Stop date 10/20/24 9:58:00 EDT, STAT, Start date 10/20/24 9:58:00 EDT, 10/20/24 9:58:00 EDT ondansetron, 4 mg = 1 tab(s), Oral, q8hr, PRN Nausea/Vomiting, # 12 ta (more content not included)... Normal [facility] Comment on above: Result Comment: Elec tronically Signed By: Peter Lopez PA-C\.br\Date and Time Signed: 10/20/24 16:36 EDT\.br\Electronically Co-Signed By: Kanu Kelly DO\.br\Date and Time Co-Signed: 10/22/24 00:34 EDT B hCG [place] 10-20-2024 Beta hCG Ql Negative Normal [facility] Comment on above: Performed By: #### [id number] #### [facility] [address] [place] [address] BMPon 10-20-2024 Anion gap [Moles/Vol] 10 mmol/L Normal 6-16 [facility] Comment on above: Performed By: #### 2 [id number] #### [facility] [address] [place] [address] BUN/Creat Ratio 10 No Units Normal 10-20 [facility] Comment on above: Performed By: #### 2 [id number] #### [facility] [address] [place] [address] Calcium [Mass/Vol] 8.8 mg/dL Low 8.9-11.1 [facility] Comment on above: Performed By: #### 2 [id number] #### [facility] [address] [place] [address] Chloride [Moles/Vol] 107 mmol/L Normal 101-111 [facility] Comment on above: Performed By: #### 2 [id number] #### [facility] [address] [place] [address] CO2 [Moles/Vol] 27 mmol/L Normal 21-31 [facility] Comment on above: Performed By: #### 2 [id number] #### [facility] [address] [place] [address] Creatinine [Mass/Vol] 0.8 mg/dL Normal 0.5-1.3 [facility] Comment on above: Performed By: #### 2 [id number] #### [facility] [address] [place] [address] Glucose [Mass/Vol] 93 mg/dL Normal 55-199 [facility] Comment on above: Performed By: #### 2 [id number] #### [facility] [address] [place] [address] Potassium [Moles/Vol] 3.9 mmol/L Normal 3.5-5.3 [facility] Comment on above: Performed By: #### 2 [id number] #### [facility] [address] [place] [address] Sodium [Moles/Vol] 140 mmol/L Normal 135-145 [facility] Comment on above: Performed By: #### 2 [id number] #### [facility] [address] [place] [address] Urea nitrogen [Mass/Vol] 8 mg/dL Normal 5-21 [facility] Comment on above: Performed By: #### 2 [id number] #### [facility] [address] [place] [address] CBC w/ Auto Diffon 5 Basophil Absolute 0.1 E9/L Normal 0.0-0.2 [facility] Comment on above: Performed By: #### 2 [id number] #### [facility] [address] [place] [address] Basophils/100 WBC (Bld) 0.8 % Normal 0.0-2.0 [facility] Comment on above: Performed By: #### 2 [id number] #### [facility] [address] [place] [address] Eos Absolute 0.2 E9/L Normal 0.0-0.5 [facility] Comment on above: Performed By: #### 2 [id number] #### [facility] [address] [place] [address] Eosinophils/100 WBC (Bld) 1.9 % Normal 0.0-8.0 [facility] Comment on above: Performed By: #### 2 [id number] #### [facility] [address] [place] [address] Erythrocyte distribution width (RBC) [Ratio] 12.4 % Normal 10.9-14.2 [facility] Comment on above: Performed By: #### 2 [id number] #### [facility] [address] [place] [address] Hematocrit (Bld) [Volume fraction] 36.8 % Normal 34.0-46.0 [facility] Comment on above: Performed By: #### 2 [id number] #### [facility] [address] [place] [address] Hemoglobin (Bld) [Mass/Vol] 12.6 g/dL Normal 12.0-16.0 [facility] Comment on above: Performed By: #### 2 [id number] #### [facility] [address] [place] [address] Lymph Absolute 2.8 E9/L Normal 1.0-4.0 [facility] Comment on above: Performed By: #### 2 [id number] #### [facility] [address] [place] [address] Lymphocytes/100 WBC (Bld) 32.0 % Normal 14.0-50.0 [facility] Comment on above: Performed By: #### 2 [id number] #### [facility] [address] [place] [address] MCH (RBC) [Entitic mass] 29.8 pg Normal 27.0-34.0 [facility] Comment on above: Performed By: #### 2 [id number] #### [facility] [address] [place] [address] MCHC (RBC) [Mass/Vol] 34.1 g/dL Normal 31.4-36.0 [facility] Comment on above: Performed By: #### 2 [id number] #### [facility] [address] [place] [address] MCV (RBC) [Entitic vol] 87.4 fL Normal 80.0-100.0 [facility] Comment on above: Performed By: #### 2 [id number] #### [facility] [address] [place] [address] [place] Absolute 0.6 E9/L Normal 0.2-1.0 [facility] Comment on above: Performed By: #### 2 [id number] #### [facility] [address] [place] [address] Monocytes/100 WBC (Bld) 7.0 % Normal 4.0-14.0 [facility] Comment on above: Performed By: #### 2 [id number] #### [facility] [address] [place] [address] Neutro Absolute 5.2 E9/L Normal 2.0-7.5 [facility] Comment on above: Performed By: #### 2 [id number] #### [facility] [address] [place] [address] Neutro Auto 58.3 % Normal 36.0-75.0 [facility] Comment on above: Performed By: #### 2 [id number] #### [facility] [address] [place] [address] Platelet 249.0 E9/L Normal 150.0-500. 0 [facility] Comment on above: Performed By: #### 2 [id number] #### [facility] [address] [place] [address] Platelet mean volume (Bld) [Entitic vol] 7.2 fL Normal 6.4-10.8 [facility] Comment on above: Performed By: #### 2 [id number] #### [facility] [address] [place] [address] RBC 4.2 E12/L Low 4.3-5.9 [facility] Comment on above: Performed By: #### 2 [id number] #### [facility] [address] [place] [address] WBC 8.9 E9/L Normal 4.0-11.0 [facility] Comment on above: Performed By: #### 2 [id number] #### [facility] [address] [place] [address] ED Clinical Summaryon 2024 ED Clinical Summary ED Clinical Summary [address] [address] ED Clinical Summary Person Information Name: TRACIE SAMUELS [place] Age: 34 Years : 1990 Sex: Female Language: Tuvaluan PCP: KATLIN FERNANDEZ DO Marital Status: Single Visit Id: Visit Reason: Vomiting; Wheezing; Cough; NAUSEA, D, V Speciality: Acuity: 3 Enc Type: Emergency Med Service: Emergency Arrival: 10/20/2024 09:43:32 Discharge: 10/20/2024 12:24:15 LOS: 000 02:41 Checkin: 10/20/2024 09:43:32 Checkout: 10/20/2024 12:24:15 Dispo Type: Home (Routine DC) EVENTS: Event Name Event Status Request Date/Time Start Date/Time Complete Date/Time Arrive Complete 10/20/2024 09:43:32 10/20/2024 09:43:32 10/20/2024 09:43:32 Document Home Meds Request 10/20/2024 09:43:32 Triage Complete 10/20/2024 09:43:32 10/20/2024 09:52:55 10/20/2024 09:52:55 Bed Assign Complete 10/20/2024 09:47:33 10/20/2024 09:47:33 10/20/2024 09:47:33 Dr Exam Complete 10/20/2024 09:47:33 10/20/2024 09:48:29 10/20/2024 09:48:29 RN Exam Complete 10/20/2024 09:47:34 10/20/2024 09:55:12 10/20/2024 09:55:12 Registration Complete 10/20/2024 09:48:29 10/20/2024 10:10:25 10/20/2024 10:10:25 Dr Exam Complete 10/20/2024 09:49:03 10/20/2024 09:49:03 10/20/2024 09:49:03 Dr Exam Complete 10/20/2024 09:54:31 10/20/2024 09:54:31 10/20/2024 09:54:31 Meds Admin Complete 10/20/2024 09:59:32 10/20/2024 10:07:11 Pending Labs Complete 10/20/2024 09:59:32 10/20/2024 11:48:50 Lab Complete 10/20/2024 09:59:32 10/20/2024 10:43:41 Patient Care Request 10/20/2024 09:59:32 X-Ray Complete 10/20/2024 09:59:32 10/20/2024 10:47:40 10/20/2024 11:03:35 RT Tx/ABG Request 10/20/2024 09:59:33 RT Tx/ABG Request 10/20/2024 09:59:33 Reg Complete Request 10/20/2024 10:10:25 Reg Bed Request Complete 10/20/2024 10:10:25 10/20/2024 10:10:25 10/20/2024 10:10:25 Pending Labs Complete 10/20/2024 10:18:24 10/20/2024 10:18:24 10/20/2024 10:43:41 Lab Complete 10/20/2024 10:18:24 10/20/2024 10:18:24 10/20/2024 10:43:41 Pending Labs Collected 10/20/2024 10:57:27 10/20/2024 10:57:27 Lab Collected 10/20/2024 10:57:27 10/20/2024 10:57:27 Pending Labs Complete 10/20/2024 10:59:38 10/20/2024 10:59:38 10/20/2024 10:59:39 Wet Read Request 10/20/2024 11:03:35 Discharge Complete 10/20/2024 12:04:02 10/20/2024 12:24:20 10/20/2024 12:24:20 Transfer Complete 10/20/2024 12:24:20 10/20/2024 12:24:20 10/20/2024 12:24:20 ADDRESS: [address] [place] [address] [address] [facility] [id number] PHYS DOC NOTES: MEDICAL INFORMATION: Prescriptions Given: New Medications [facility], [address] [place], [place] [id number], [phone] azithromycin (azithromycin 250 mg Tab) 250 Milligram By Mouth As Directed. Refills: 0. methylPREDNISolone (Medrol Dosepack 4 mg Tab) 1 Tablets By Mouth As Directed. Take as directed on pack. Refills: 0. Medications to Continue Taking That Have Changed [facility], [address] [facility] [place], [place] [id number], [phone] START: ondansetron (Zofran ODT 4 mg Tab-Dis) 1 Tablets By Mouth every 8 hours as needed Nausea/Vomiting. Refills: 0. Other Medications START: ondansetron (Zofran ODT 4 mg Tab) [...] Mouth every 8 hours. Refills: 0. START: ondansetron (Zofran ODT 4 mg Tab-Dis) 1 Tablets By Mouth every 8 hours as needed Nausea/Vomiting. Refills: 0. START: ondansetron (Zofran ODT 4 mg Tab-Dis) 1 Tablets By Mouth every 8 hours as needed Nausea/Vomiting. Refills: 0. START: ondansetron (Zofran ODT 4 mg Tab-Dis) 1 Tablets By Mouth every 8 hours. Refills: 0. Medications to Continue with [...] Mouth 2 times a day. Refills: 0. ibuprofen (ibuprofen 600 mg Tab) 1 Tablets By Mouth every 8 hours as needed Pain/Fever. Refil (more content not included)... Normal [facility] ED Patient Summaryon 025 ED Patient Summary ED Patient Summary [address] [address] Patient Discharge Instructions Person Information Name: TRACIE SAMUELS Age: 34 Years Arrival Date: 10/20/2024 09:43:32 Discharge Diagnosis: Bronchitis Primary Care Physician: KATLIN FERNANDEZ DO Provider Information Primary Provider: Kanu Kelly DO Advanced Assistant Therapy Aide:Peter Lopez PA-C The exam and treatment you received in the Emergency Department were for an urgent problem and are not intended as complete care. It is important that you follow up with a doctor, nurse practitioner, or physician???s assistant therapy aide for ongoing care. If your symptoms become worse or you do not improve as expected and you are unable to reach your usual health care provider, you should return to the Emergency Department. We are available 24 hours a day. TRACIE SAMUELS has been given the following list of patient education materials, prescriptions and follow-up instructions: Follow-up Instructions: With: Address: When: KATLIN FERNANDEZ [address] [place] [id number] [facility] ([facility] In 3 days 10/23/2024 Comments: Call Dr for diagnosis based follow up In the event that this physician does not participate in your insurance network, please consult with your insurance company to find a nearby participating provider. Patient Education Materials: Nausea and Vomiting, Adult, [id number]; Acute Bronchitis, Adult A MESSAGE TO ALL PATIENTS REGARDING OPIOIDS PRESCRIPTION OPIOIDS: WHAT YOU NEED TO KNOW Prescription opioids can be used to help relieve xnxpbars-ie-xglwsu pain and are often prescribed following a [...] as well, even when taken as directed: ??? Tolerance???meaning you might need to take more of the medication for the same pain relief ??? Physical dependence???meaning you have symptoms of withdrawal when a medication is stopped ??? Increased sensitivity to pain ??? Constipation ??? Nausea, vomiting, and dry mouth ??? Sleepiness and dizziness ??? Confusion ??? Depression ??? Low levels of testosterone that can result in lower sex drive, energy, and strength ??? Itching and sweating RISKS ARE GREATER WITH: ??? History of drug misuse, substance use disorder, or overdose ??? Mental health conditions (such as depression or anxiety) ??? Sleep apnea ??? Older age (65 years and older) ??? Avoid alcohol while taking prescription opioids. Also, unless specifically advised by your health care provider, medications to avoid include: ??? Benzodiazepines (such as Xanax or Valium) ??? Muscle relaxants (such as Soma or Flexeril) ??? Hypnotics (such as Ambien or Lunesta) ??? Other prescription opioids KNOW YOUR OPTIONS Talk to your health care provider about ways to manage your pain that don???t involve prescription opioids. Some of these options may actually work better and have fewer risks and side effects. Options may include: ??? Pain relievers such as acetaminophen, ibuprofen, and naproxen ??? Some medication that are also used for depression or seizures ??? Physical therapy and exercise ??? Cognitive behavioral therapy, a psychological, goal-directed approach, in which patients learn how to modify physical, behavioral, and emotional triggers of pain and stress. IF YOU ARE PRESCRIBED OPIOIDS FOR PAIN: ??? Never take opioids in greater amounts or more often than prescribed. ??? Follow up with your primary health care provider. o Work together to create a plan on how to manage your pain. o Talk about ways to help manage your pain that don???t involve prescription opioids. o Talk about any and all concerns and side effects. ??? Help prevent misuse and abuse o Never sell or share prescription opioids. o Never use another person???s prescription opioids. ??? Store prescription opioids in a secure place and out of reach of others (this may include visitors, children, friends, and family). ??? Safely dispose of unused prescription opioids: Find your community drug take-back program or your pharmacy mail-back program, or flush them down the toilet, following guidance from the Food and Drug Administration (www.fda.gov/Drugs/Resour cesForYou). ??? Visit www.cdc.gov/drugoverdose to learn about the risks of opioids abuse and overdose. ??? If you b (more content not included)... Normal [facility] Extra Blueon 10-20-2024 Tube Collected Plasma Yes Invalid Interpretation Code [facility] Comment on above: Performed By: #### 1 [id number] #### [facility] [address] [place] [address] Hep Func Panelon 10-20-2024 Albumin [Mass/Vol] 4.1 g/dL Normal 3.3-5.0 [facility] Comment on above: Performed By: #### 2 [id number] #### [facility] [address] [place] [address] Albumin/Globulin [Mass ratio] 1.2 {ratio} Normal 1.1-2.2 [facility] Comment on above: Performed By: #### 2 [id number] #### [facility] [address] [place] [address] Alk Phos 97 Int._Unit/L Normal 21-98 [facility] Comment on above: Performed By: #### 2 [id number] #### [facility] [address] [place] [address] ALT 12 Int._Unit/L Normal 6-46 [facility] Comment on above: Performed By: #### 2 [id number] #### [facility] [address] [place] [address] AST 14 Int._Unit/L Normal 5-43 [facility] Comment on above: Performed By: #### 2 [id number] #### [facility] [address] [place] [address] Bili Direct 0.0 mg/dL Normal 0.0-0.4 [facility] Comment on above: Performed By: #### 2 [id number] #### [facility] [address] [place] [address] Bili Indirect 0.4 mg/dL Normal 0.1-0.9 [facility] Comment on above: Performed By: #### 2 [id number] #### [facility] [address] [place] [address] Bili Total 0.4 mg/dL Normal 0.0-1.1 [facility] Comment on above: Performed By: #### 2 [id number] #### [facility] [address] [place] [address] Globulin (S) [Mass/Vol] 3.3 g/dL Normal 1.4-4.0 [facility] Comment on above: Performed By: #### 2 [id number] #### [facility] [address] [place] [address] Protein [Mass/Vol] 7.4 g/dL Normal 6.0-7.8 [facility] Comment on above: Performed By: #### 2 [id number] #### [facility] [address] [place] [address] Lipase Levelon 10-20-2024 Lipase Lvl 14 unit/L Normal 13-58 [facility] Comment on above: Performed By: #### 2 [id number] #### [facility] [address] [place] [address] UA with Cult Rflxon 10-21-19 25 Color (U) Light-Yellow Normal Yellow [facility] Comment on above: Result Comment: Micr oscopic readings are only performed on those samples that meet specific criteria set forth by [facility]. Performed By: #### 4 [id number] #### [facility] [address] [place] [address] Glucose (U) [Mass/Vol] Negative Normal Negative [facility] Comment on above: Performed By: #### 4 [id number] #### [facility] [address] [place] [address] Ketones Ql (U) Negative Normal Negative [facility] Comment on above: Performed By: #### 4 [id number] #### [facility] [address] [place] [address] UA Blood 3+ mg/dL Abnormal Negative [facility] Comment on above: Performed By: #### 4 [id number] #### [facility] [address] [place] [address] UA Clarity Turbid Abnormal Clear [facility] Comment on above: Performed By: #### 4 [id number] #### [facility] [address] [place] [address] UA Leuk Est 75 Po/uL Abnormal Negative [facility] Comment on above: Performed By: #### 4 [id number] #### [facility] [address] [place] [address] UA Mucous Trace Normal Negative [facility] Comment on above: Performed By: #### 4 [id number] #### [facility] [address] [place] [address] UA Nitrite Negative Normal Negative [facility] Comment on above: Performed By: #### 4 [id number] #### [facility] [address] [place] [address] UA pH 8.0 Invalid Interpretation Code 5.0-9.0 [facility] Comment on above: Performed By: #### 4 [id number] #### [facility] [address] [place] [address] UA Protein Trace Abnormal Negative [facility] Comment on above: Performed By: #### 4 [id number] #### [facility] [address] [place] [address] UA RBC 4-20 Abnormal 0-3 [facility] Comment on above: Performed By: #### 4 [id number] #### [facility] [address] [place] [address] UA Spec Grav 1.020 Invalid Interpretation Code 1.005-1.03 0 [facility] Comment on above: Performed By: #### 4 [id number] #### [facility] [address] [place] [address] UA Squam Epithelial >10 Invalid Interpretation Code [facility] Comment on above: Performed By: #### 4 [id number] #### [facility] [address] [place] [address] UA Urobilinogen Negative Normal Negative [facility] Comment on above: Performed By: #### 4 [id number] #### [facility] [address] [place] [address] UA WBC 0-5 Normal 0-5 [facility] Comment on above: Performed By: #### 4 [id number] #### [facility] [address] [place] [address] Urobilinogen (U) [Mass/Vol] Negative Normal Negative [facility] Comment on above: Performed By: #### 4 [id number] #### [facility] [address] [place] [address] UA Spec Desc Clean Catch Normal [facility] Comment on above: Performed By: #### 4 [id number] #### [facility] [address] [place] [address] XR Chest 2 Viewson XR Chest 2 Views Exam Date/Time: 10/20/2024 11:03 EDT Reason for Exam: Cough Report IMPRESSION: NO EVIDENCE OF ACTIVE CHEST DISEASE. CLINICAL HISTORY: Cough. COMPARISON: 08/27/2023. COMMENT: The heart is normal in size. The mediastinum is unremarkable. The lungs appear clear. No infiltration nor pleural effusion is evident. No significant change is noted when compared to the prior exam. Ordering Provider: Peter Lopez FINAL REPORT Dictated: 10/20/2024 11:13 am Osmel Marino M.D. Signed (Electronic Signature): 10/20/2024 11:13 am Signed by: Osmel Marino M.D. Transcribed by: FATIMAH Technologist: [facility] eGFRon 10-20-2024 eGFR 97 mL/min/1.73 m2 Normal >=59 [facility] Comment on above: Performed By: #### 1 [id number] #### [facility] [address] [place] [address] C Urineon 10-09-2024 Bacteria identified Cx Nom (U) Microbiology PROCEDURE: Urine Culture [R1] SOURCE: U CleanCatch BODY SITE: COLLECTED DATE/TIME: 10/07/2024 18:55 EDT RECEIVED DATE/TIME: 10/07/2024 19:56 EDT START DATE/TIME: 10/07/2024 19:56 EDT FREE TEXT SOURCE: Kanu Kelly DO, DO, Kanu FINAL REPORTS Final Report [] Verified Date/Time: 10/09/2024 11:29 EDT <10,000 cfu/ml Mixed skin contaminants Performing Locations R1: This test was performed at: [facility], [address] [place] [address], [phone] , , [facility] Comment on above: Performed By: #### 2 [id number] #### [facility] [address] [place] [address] B hCG Qualon 10-07-2024 Beta hCG Ql Negative [facility] Comment on above: Performed By: #### 2 [id number] #### [facility] [address] [place] [address] BMPon 10-07-2024 Anion gap [Moles/Vol] 9 mmol/L Normal 6-16 [facility] Comment on above: Performed By: #### 2 [id number] #### [facility] [address] [place] [address] BUN/Creat Ratio 16 No Units Normal 10-20 [facility] Comment on above: Performed By: #### 2 [id number] #### [facility] [address] [place] [address] Calcium [Mass/Vol] 8.7 mg/dL Low 8.9-11.1 [facility] Comment on above: Performed By: #### 2 [id number] #### [facility] [address] [place] [address] Chloride [Moles/Vol] 107 mmol/L Normal 101-111 [facility] Comment on above: Performed By: #### 2 [id number] #### [facility] [address] [place] [address] CO2 [Moles/Vol] 26 mmol/L Normal 21-31 [facility] Comment on above: Performed By: #### 2 [id number] #### [facility] [address] [place] [address] Creatinine [Mass/Vol] 0.8 mg/dL Normal 0.5-1.3 [facility] Comment on above: Performed By: #### 2 [id number] #### [facility] [address] [place] [address] Glucose [Mass/Vol] 104 mg/dL Normal 55-199 [facility] Comment on above: Performed By: #### 2 [id number] #### [facility] [address] [place] [address] Potassium [Moles/Vol] 3.7 mmol/L Normal 3.5-5.3 [facility] Comment on above: Performed By: #### 2 [id number] #### [facility] [address] [place] [address] Sodium [Moles/Vol] 138 mmol/L Normal 135-145 [facility] Comment on above: Performed By: #### 2 [id number] #### [facility] [address] [place] [address] Urea nitrogen [Mass/Vol] 13 mg/dL Normal 5-21 [facility] Comment on above: Performed By: #### 2 [id number] #### [facility] [address] [place] [address] CBC w/ Auto Diffon 5 Basophil Absolute 0.1 E9/L Normal 0.0-0.2 [facility] Comment on above: Performed By: #### 2 [id number] #### [facility] [address] [place] [address] Basophils/100 WBC (Bld) 1.1 % Normal 0.0-2.0 [facility] Comment on above: Performed By: #### 2 [id number] #### [facility] [address] [place] [address] Eos Absolute 0.2 E9/L Normal 0.0-0.5 [facility] Comment on above: Performed By: #### 2 [id number] #### [facility] [address] [place] [address] Eosinophils/100 WBC (Bld) 1.7 % Normal 0.0-8.0 [facility] Comment on above: Performed By: #### 2 [id number] #### [facility] [address] [place] [address] Erythrocyte distribution width (RBC) [Ratio] 12.2 % Normal 10.9-14.2 [facility] Comment on above: Performed By: #### 2 [id number] #### [facility] [address] [place] [address] Hematocrit (Bld) [Volume fraction] 35.2 % Normal 34.0-46.0 [facility] Comment on above: Performed By: #### 2 [id number] #### [facility] [address] [place] [address] Hemoglobin (Bld) [Mass/Vol] 12.2 g/dL Normal 12.0-16.0 [facility] Comment on above: Performed By: #### 2 [id number] #### [facility] [address] [place] [address] Lymph Absolute 3.6 E9/L Normal 1.0-4.0 [facility] Comment on above: Performed By: #### 2 [id number] #### [facility] [address] [place] [address] Lymphocytes/100 WBC (Bld) 34.2 % Normal 14.0-50.0 [facility] Comment on above: Performed By: #### 2 [id number] #### [facility] [address] [place] [address] MCH (RBC) [Entitic mass] 30.8 pg Normal 27.0-34.0 [facility] Comment on above: Performed By: #### 2 [id number] #### [facility] [address] [place] [address] MCHC (RBC) [Mass/Vol] 34.7 g/dL Normal 31.4-36.0 [facility] Comment on above: Performed By: #### 2 [id number] #### [facility] [address] [place] [address] MCV (RBC) [Entitic vol] 88.7 fL Normal 80.0-100.0 [facility] Comment on above: Performed By: #### 2 [id number] #### [facility] [address] [place] [address] [place] Absolute 0.5 E9/L Normal 0.2-1.0 [facility] Comment on above: Performed By: #### 2 [id number] #### [facility] [address] [place] [address] Monocytes/100 WBC (Bld) 5.3 % Normal 4.0-14.0 [facility] Comment on above: Performed By: #### 2 [id number] #### [facility] [address] [place] [address] Neutro Absolute 6.0 E9/L Normal 2.0-7.5 [facility] Comment on above: Performed By: #### 2 [id number] #### [facility] [address] [place] [address] Neutro Auto 57.7 % Normal 36.0-75.0 [facility] Comment on above: Performed By: #### 2 [id number] #### [facility] [address] [place] [address] Platelet 245.0 E9/L Normal 150.0-500. 0 [facility] Comment on above: Performed By: #### 2 [id number] #### [facility] [address] [place] [address] Platelet mean volume (Bld) [Entitic vol] 7.2 fL Normal 6.4-10.8 [facility] Comment on above: Performed By: #### 2 [id number] #### [facility] [address] [place] [address] RBC 4.0 E12/L Low 4.3-5.9 [facility] Comment on above: Performed By: #### 2 [id number] #### [facility] [address] [place] [address] WBC 10.4 E9/L Normal 4.0-11.0 [facility] Comment on above: Performed By: #### 2 [id number] #### [facility] [address] [place] [address] ED Clinical Summaryon 2024 ED Clinical Summary ED Clinical Summary [address] [address] ED Clinical Summary Person Information Name: TRACIE SAMUELS [place] Age: 34 Years : 1990 Sex: Female Language: Tuvaluan PCP: KATLIN FERNANDEZ DO Marital Status: Single Visit Id: Visit Reason: Vomiting; Nausea; Abdominal pain; ABD PAIN, SIDE PAIN, N/V Speciality: Acuity: 3 Enc Type: Emergency Med Service: Emergency Arrival: 10/07/2024 18:14:40 Discharge: 10/07/2024 21:12:34 LOS: 000 02:58 Checkin: 10/07/2024 18:14:40 Checkout: 10/07/2024 21:12:34 Dispo Type: Home (Routine DC) EVENTS: Event Name Event Status Request Date/Time Start Date/Time Complete Date/Time Arrive Complete 10/07/2024 18:14:40 10/07/2024 18:14:40 10/07/2024 18:14:40 Document Home Meds Request 10/07/2024 18:14:40 Triage Complete 10/07/2024 18:14:40 10/07/2024 18:26:17 10/07/2024 18:26:17 Registration Complete 10/07/2024 18:22:00 10/07/2024 18:22:00 10/07/2024 18:22:00 Reg Complete Request 10/07/2024 18:22:00 Reg Bed Request Complete 10/07/2024 18:22:00 10/07/2024 18:22:00 10/07/2024 18:22:00 Bed Assign Complete 10/07/2024 18:31:31 10/07/2024 18:31:31 10/07/2024 18:31:31 Dr Exam Complete 10/07/2024 18:31:31 10/07/2024 18:37:36 10/07/2024 18:37:36 RN Exam Complete 10/07/2024 18:31:31 10/07/2024 19:11:05 10/07/2024 19:11:05 Registration Complete 10/07/2024 18:37:36 10/07/2024 20:40:45 10/07/2024 20:40:45 Pending Labs Complete 10/07/2024 18:43:20 10/07/2024 19:51:12 Lab Complete 10/07/2024 18:43:20 10/07/2024 19:39:55 Meds Admin Complete 10/07/2024 18:43:20 10/07/2024 18:59:06 Patient Care Request 10/07/2024 18:43:20 Pending Labs Complete 10/07/2024 19:02:17 10/07/2024 19:02:17 10/07/2024 19:39:55 Lab Complete 10/07/2024 19:02:17 10/07/2024 19:02:17 10/07/2024 19:39:55 Pending Labs Inlab 10/07/2024 19:13:05 10/07/2024 19:13:05 Lab Inlab 10/07/2024 19:13:05 10/07/2024 19:13:05 Dr Exam Complete 10/07/2024 19:15:06 10/07/2024 19:15:06 10/07/2024 19:15:06 Pending Labs Complete 10/07/2024 20:24:40 10/07/2024 20:24:40 10/07/2024 20:24:41 Meds Admin Complete 10/07/2024 21:00:25 10/07/2024 21:07:57 Discharge Complete 10/07/2024 21:01:04 10/07/2024 21:12:38 10/07/2024 21:12:38 Transfer Complete 10/07/2024 21:12:39 10/07/2024 21:12:39 10/07/2024 21:12:39 ADDRESS: [address] [place] [address] [address] [facility] [id number] PHYS DOC NOTES: Addendum by Jass Meek DO on October 07, 2024 21:02:52 EDT MEDICAL INFORMATION: Prescriptions Given: New Medications [facility], [address], [place] [id number], [phone] ibuprofen (ibuprofen 600 mg Tab) 1 Tablets By Mouth every 8 hours as needed Pain/Fever. Refills: 0. nitrofurantoin (nitrofurantoin macrocrystals-monohydrate 100 mg Cap) 1 Capsules By Mouth 2 times a day for 3 Days. Refills: 0. Medications to Continue Taking That Have Changed [facility], [address], [place] [id number], [phone] START: ondansetron (Zofran ODT 4 mg Tab-Dis) 1 Tablets By Mouth every 8 hours. Refills: 0. START: promethazine (Phenergan 25 mg Supp) 1 Suppositories By rectum every 6 hours as needed Nausea/Vomiting. Refills: 0. Other Medications START: ondansetron (Zofran ODT 4 mg Tab) [...] Mouth every 8 hours. Refills: 0. START: ondansetron (Zofran ODT 4 mg Tab-Dis) 1 Tablets By Mouth every 8 hours as needed Nausea/Vomiting. Refills: 0. START: promethazine (Phenergan 12.5 mg Supp) 1 Suppositories By rectum every 8 hours. Refills: 0. START: promethazine (Phenergan 12.5 mg Supp) 1 Suppositories By rectum every 8 hours as needed as needed for nausea/vomiting. second line. Refills: 0. START: promethazine (promethazine 25 mg Tab) 1 Tablets By Mouth every 6 hours as needed as needed for nausea/vomiting. Refills: 0. START: promethazine (promethazine 25 mg Tab) 1 Tablets By Mouth every 6 hours as needed as needed for nausea/vomiting. Refills: 0. Medications to Continue with No [...] 6 hours. Refills: 0. albuterol (albuterol 0.083% (more content not included)... Normal [facility] ED Note-Physicianon 10-08-19 ED Note-Physician ED Note-Physician Basic Information Time Seen: Kanu Kelly DO 10/07/2024 18:37 Chief Complaint Pt. presents to the ed [facility] c/o abominal pain , nausea and vomiting that started about 4 days ago History of Present Illness 34 female presents emergency department left flank pain. Patient states has been ongoing for the last 3 to 4 days. She describes left flank pain with associated intractable nausea and vomiting. Patient has had prior cholecystectomy has also had extensive history of kidney stones states this feels like a kidney stone that she has had previously. She reports no dysuria or hematuria denies any chance of as well. She took no medications prior to arrival. No other aggravating or relieving factors no other associated symptoms no other prior treatments or complaints. No fevers with this. Family: Reviewed and noncontributory Social: lives at home Review of systems negative unless otherwise specified in the HPI. Physical Exam Vitals & Measurements T: 37.1 ???C(Oral) HR: 76(Peripheral) RR: 18 BP: 123/85 SpO2: 100% HT: 149.86 cm WT: 95.7 kg BMI: 42.61 General: The patient appears well and in no apparent distress. Patient is resting comfortably on cart. Skin: Warm, dry, no pallor noted. Head: Normocephalic, atraumatic Neck: No JVD Eye: PERRLA, EOMI ENT: Moist mucus membranes Cardiovascular: Regular rate normal peripheral perfusion Respiratory: No respiratory distress no accessory muscle use no obvious audible wheezing Chest Wall: no deformity Musculoskeletal: normal ROM, no deformity, no swelling GI: Soft no obvious distention. No rebound or rigidity. No guarding. No tenderness. Left-sided CVA tenderness noted. Neurological: A&O moves all extremities equal strength and symmetry. Cranial nerves grossly intact as tested Psychiatric: Cooperative and appropriate Medical Decision Making Workup in the ER has been ordered results are pending patient signed out to the oncoming physician for final disposition and treatment plan. Assessment/Plan Flank pain (R10.9: Unspecified abdominal pain) Vomiting (R11.10: Vomiting, unspecified) Orders: ketorolac, 30 mg = 1 mL, Injection, IV Push, Once, Stop date 10/07/24 18:42:00 EDT, STAT, Start date 10/07/24 18:42:00 EDT, 10/07/24 18:42:00 EDT ondansetron, 4 mg = 2 mL, Injection, IV Push, Once, Stop date 10/07/24 18:42:00 EDT, STAT, Start date 10/07/24 18:42:00 EDT, 10/07/24 18:42:00 EDT Basic Metabolic Panel Beta hCG Qual CBC w/ Auto Diff Hepatic Function Panel Lipase Level Saline Lock Insert UA with Cult Rflx Disposition Plan Discharge Prescription List Prescriptions No active prescription medications Follow-up No qualifying data available Problem List/Past Medical History Ongoing Abdominal pain Bipolar Chronic gastritis Diabetes mellitus Extreme obesity 28-AUG-2013 12:48:08<$> Loose stools Lower abdominal pain Smoker Vomiting Historical ADHD (attention deficit hyperactivity disorder) Antral ulcer Asthma Kidney stone Seizure Procedure/Surgical History section, Cholecystectomy, EGD (esophagogastroduodenosco py) gastric outlet reduction, Tubal ligation. Medications Inpatient ketorolac 30 mg/mL Inj 1 mL, 30 mg= 1 mL, IV Push, Once ondansetron 4 mg/2 mL Inj, 4 mg= 2 mL, IV Push, Once Home albuterol 0.083% Inh Claire 3 mL, 2.5 mg= 3 mL, NEB, q6hr, PRN albuterol 0.083% Inh Claire 3 mL UD, 2.5 mg= 3 mL, Inhalation, q6hr Bentyl 10 mg Cap, 20 mg= 2 cap(s), Oral, QID Flomax 0.4 mg Cap, 0.4 mg= 1 cap(s), Oral, Daily Flomax 0.4 mg Cap, 0.4 mg= 1 cap(s), Oral, Daily indomethacin lidocaine Top 5% film Patch, 1 patch(es), Topical, Daily meloxicam 15 mg oral tablet, 15 mg= 1 tab(s), Oral, Daily meloxicam 15 mg oral tablet, Oral, Daily metformin 500 mg oral tablet, 500 mg= 1 tab(s), Oral, As Directed Miralax 3350 17 gram packet, 17 gm, Oral, Daily Miralax 3350 17 gram packet, 17 gm, Oral, Daily mupirocin Top 2% Oint, 1 arely, Topical, TID Naprosyn 500 mg Tab, 500 mg= 1 tab(s), Oral, BID, PRN Naprosyn 500 mg Tab, 500 mg= 1 tab(s), Oral, BID naproxen 375 mg Tab, 375 mg= 1 tab(s), Oral, q12hr naproxen 500 mg Tab, 500 mg= 1 tab(s), Oral, BID, PRN naproxen 500 mg Tab, 500 mg= 1 tab(s), Oral, BID, PRN oxybutynin 5 mg Tab, 5 mg= 1 tab(s), Oral, TID, PRN Pantoprazole [address] Tab Pepcid 20 mg Tab, 20 mg= 1 tab(s), Oral, BID Percocet 5 mg-325 mg oral tablet, 1 tab(s), Oral, q6hr Percocet 5 mg-325 mg oral tablet, 1 tab(s), Oral, q6hr, PRN Phenergan 12.5 mg Supp, 12.5 mg= 1 supp, Rectal, q8hr, PRN Phenergan 12.5 mg Supp, 12.5 mg= 1 supp, Rectal, q8hr polyethylene glycol 3350 with electrolytes Oral Pwdr for Claire 4000 mL (NuLytely), See Instructions ProAir HFA 90 mcg/inh inhalation aerosol, 2 puff(s), Inhalation, QID, PRN promethazine 25 mg Tab, 25 mg= 1 tab(s), Oral, q6hr, PRN promethazine 25 mg Tab, 25 mg= 1 tab(s), Oral, q6hr, PRN traMADOL 50 mg Tab, 50 mg= 1 tab(s), Oral, q6hr, PRN Zof (more content not included)... Normal [facility] Comment on above: Result Comment: Elec tronically Signed By: Jass Meek DO\.br\Date and Time Signed: 10/07/24 21:03 EDT ED Note-Physician ED Note-Physician Basic Information Time Seen: Kanu Kelly DO 10/07/2024 18:37 Chief Complaint Pt. presents to the ed [facility] c/o abominal pain , nausea and vomiting that started about 4 days ago History of Present Illness 34 female presents emergency department left flank pain. Patient states has been ongoing for the last 3 to 4 days. She describes left flank pain with associated intractable nausea and vomiting. Patient has had prior cholecystectomy has also had extensive history of kidney stones states this feels like a kidney stone that she has had previously. She reports no dysuria or hematuria denies any chance of as well. She took no medications prior to arrival. No other aggravating or relieving factors no other associated symptoms no other prior treatments or complaints. No fevers with this. Family: Reviewed and noncontributory Social: lives at home Review of systems negative unless otherwise specified in the HPI. Physical Exam Vitals & Measurements T: 37.1 ???C(Oral) HR: 76(Peripheral) RR: 18 BP: 123/85 SpO2: 100% HT: 149.86 cm WT: 95.7 kg BMI: 42.61 General: The patient appears well and in no apparent distress. Patient is resting comfortably on cart. Skin: Warm, dry, no pallor noted. Head: Normocephalic, atraumatic Neck: No JVD Eye: PERRLA, EOMI ENT: Moist mucus membranes Cardiovascular: Regular rate normal peripheral perfusion Respiratory: No respiratory distress no accessory muscle use no obvious audible wheezing Chest Wall: no deformity Musculoskeletal: normal ROM, no deformity, no swelling GI: Soft no obvious distention. No rebound or rigidity. No guarding. No tenderness. Left-sided CVA tenderness noted. Neurological: A&O moves all extremities equal strength and symmetry. Cranial nerves grossly intact as tested Psychiatric: Cooperative and appropriate Medical Decision Making Workup in the ER has been ordered results are pending patient signed out to the oncoming physician for final disposition and treatment plan. Assessment/Plan Flank pain (R10.9: Unspecified abdominal pain) Vomiting (R11.10: Vomiting, unspecified) Orders: ketorolac, 30 mg = 1 mL, Injection, IV Push, Once, Stop date 10/07/24 18:42:00 EDT, STAT, Start date 10/07/24 18:42:00 EDT, 10/07/24 18:42:00 EDT ondansetron, 4 mg = 2 mL, Injection, IV Push, Once, Stop date 10/07/24 18:42:00 EDT, STAT, Start date 10/07/24 18:42:00 EDT, 10/07/24 18:42:00 EDT Basic Metabolic Panel Beta hCG Qual CBC w/ Auto Diff Hepatic Function Panel Lipase Level Saline Lock Insert UA with Cult Rflx Disposition Plan Discharge Prescription List Prescriptions No active prescription medications Follow-up No qualifying data available Problem List/Past Medical History Ongoing Abdominal pain Bipolar Chronic gastritis Diabetes mellitus Extreme obesity 28-AUG-2013 12:48:08<$> Loose stools Lower abdominal pain Smoker Vomiting Historical ADHD (attention deficit hyperactivity disorder) Antral ulcer Asthma Kidney stone Seizure Procedure/Surgical History section, Cholecystectomy, EGD (esophagogastroduodenosco py) gastric outlet reduction, Tubal ligation. Medications Inpatient ketorolac 30 mg/mL Inj 1 mL, 30 mg= 1 mL, IV Push, Once ondansetron 4 mg/2 mL Inj, 4 mg= 2 mL, IV Push, Once Home albuterol 0.083% Inh Claire 3 mL, 2.5 mg= 3 mL, NEB, q6hr, PRN albuterol 0.083% Inh Claire 3 mL UD, 2.5 mg= 3 mL, Inhalation, q6hr Bentyl 10 mg Cap, 20 mg= 2 cap(s), Oral, QID Flomax 0.4 mg Cap, 0.4 mg= 1 cap(s), Oral, Daily Flomax 0.4 mg Cap, 0.4 mg= 1 cap(s), Oral, Daily indomethacin lidocaine Top 5% film Patch, 1 patch(es), Topical, Daily meloxicam 15 mg oral tablet, 15 mg= 1 tab(s), Oral, Daily meloxicam 15 mg oral tablet, Oral, Daily metformin 500 mg oral tablet, 500 mg= 1 tab(s), Oral, As Directed Miralax 3350 17 gram packet, 17 gm, Oral, Daily Miralax 3350 17 gram packet, 17 gm, Oral, Daily mupirocin Top 2% Oint, 1 aerly, Topical, TID Naprosyn 500 mg Tab, 500 mg= 1 tab(s), Oral, BID, PRN Naprosyn 500 mg Tab, 500 mg= 1 tab(s), Oral, BID naproxen 375 mg Tab, 375 mg= 1 tab(s), Oral, q12hr naproxen 500 mg Tab, 500 mg= 1 tab(s), Oral, BID, PRN naproxen 500 mg Tab, 500 mg= 1 tab(s), Oral, BID, PRN oxybutynin 5 mg Tab, 5 mg= 1 tab(s), Oral, TID, PRN Pantoprazole [address] Tab Pepcid 20 mg Tab, 20 mg= 1 tab(s), Oral, BID Percocet 5 mg-325 mg oral tablet, 1 tab(s), Oral, q6hr Percocet 5 mg-325 mg oral tablet, 1 tab(s), Oral, q6hr, PRN Phenergan 12.5 mg Supp, 12.5 mg= 1 supp, Rectal, q8hr, PRN Phenergan 12.5 mg Supp, 12.5 mg= 1 supp, Rectal, q8hr polyethylene glycol 3350 with electrolytes Oral Pwdr for Claire 4000 mL (NuLytely), See Instructions ProAir HFA 90 mcg/inh inhalation aerosol, 2 puff(s), Inhalation, QID, PRN promethazine 25 mg Tab, 25 mg= 1 tab(s), Oral, q6hr, PRN promethazine 25 mg Tab, 25 mg= 1 tab(s), Oral, q6hr, PRN traMADOL 50 mg Tab, 50 mg= 1 tab(s), Oral, q6hr, PRN Zof (more content not included)... Normal [facility] Comment on above: Result Comment: Elec tronically Signed By: Kanu Kelly DO\.br\Date and Time Signed: 10/07/24 18:44 EDT ED Patient Summaryon 025 ED Patient Summary ED Patient Summary [place] [id number] Patient Discharge Instructions Person Information Name: TRACIE SAMUELS Age: 34 Years Arrival Date: 10/07/2024 18:14:40 Discharge Diagnosis: Flank pain; Vomiting Primary Care Physician: KATLIN FERNANDEZ DO Provider Information Primary Provider: Kanu Kelly DO Advanced Assistant Therapy Aide:None The exam and treatment you received in the Emergency Department were for an urgent problem and are not intended as complete care. It is important that you follow up with a doctor, nurse practitioner, or physician???s assistant therapy aide for ongoing care. If your symptoms become worse or you do not improve as expected and you are unable to reach your usual health care provider, you should return to the Emergency Department. We are available 24 hours a day. TRACIE SAMUELS has been given the following list of patient education materials, prescriptions and follow-up instructions: Follow-up Instructions: With: Address: When: KATLIN FERNANDEZ [address] [place], [place] [id number] Business (1) In 3 days 10/10/2024 Comments: Call the office of your primary care doctor to arrange for follow-up within the above-stated timeframe. Follow-up with your primary care doctor about this ED visit. You should review your labs, imaging, and diagnoses from this ED visit with your primary care physician. There are occasionally non-emergent findings that require additional follow-up after your ED visit. If you were prescribed medications you should discuss possible side-effects and drug interactions with your pharmacist. Call 911 or go to the nearest Emergency Department if you develop any new or worsening symptoms. Seek immediate medical attention if you develop: worsening abdominal pain, new or worsening nausea, new or worsening vomiting, new or worsening diarrhea, chest pain, shortness of breath, pain with urination, problems urinating, fever, chills, weakness, or any new or worsening symptoms. In the event that this physician does not participate in your insurance network, please consult with your insurance company to find a nearby participating provider. Patient Education Materials: Abdominal Pain, Adult A MESSAGE TO ALL PATIENTS REGARDING OPIOIDS PRESCRIPTION OPIOIDS: WHAT YOU NEED TO KNOW Prescription opioids can be used to help relieve btjqfoxd-io-[id number] pain and are often prescribed following a [...] as well, even when taken as directed: ??? Tolerance???meaning you might need to take more of the medication for the same pain relief ??? Physical dependence???meaning you have symptoms of withdrawal when a medication is stopped ??? Increased sensitivity to pain ??? Constipation ??? Nausea, vomiting, and dry mouth ??? Sleepiness and dizziness ??? Confusion ??? Depression ??? Low levels of testosterone that can result in lower sex drive, energy, and strength ??? Itching and sweating RISKS ARE GREATER WITH: ??? History of drug misuse, substance use disorder, or overdose ??? Mental health conditions (such as depression or anxiety) ??? Sleep apnea ??? Older age (65 years and older) ??? Avoid alcohol while taking prescription opioids. Also, unless specifically advised by your health care provider, medications to avoid include: ??? Benzodiazepines (such as Xanax or Valium) ??? Muscle relaxants (such as Soma or Flexeril) ??? Hypnotics (such as Ambien or Lunesta) ??? Other prescription opioids KNOW YOUR OPTIONS Talk to your health care provider about ways to manage your pain that don???t involve prescription opioids. Some of these options may actually work better and have fewer risks and side effects. Options may include: ??? Pain relievers such as acetaminophen, ibuprofen, and naproxen ??? Some medication that are also used for depression or seizures ??? Physical therapy and exercise ??? Cognitive behavioral therapy, a psychological, goal-directed approach, in which patients learn how to modify physical, behavioral, and emotional triggers of pain and stress. IF YOU ARE PRESCRIBED OPIOIDS FOR PAIN: ??? Never take opioids in greater amounts or more often than prescribed. ??? Follow up with your primary health care provider. o Work together to create a plan on how to manage (more content not included)... Normal [facility] Extra Blueon 10-07-2024 Tube Collected Plasma Yes Invalid Interpretation Code [facility] Comment on above: Performed By: #### 1 [id number] #### [facility] [address] [place] [address] Hep Func Panelon 10-07-2024 Albumin [Mass/Vol] 3.9 g/dL Normal 3.3-5.0 [facility] Comment on above: Performed By: #### 2 [id number] #### [facility] [address] [place] [address] Albumin/Globulin [Mass ratio] 1.3 {ratio} Normal 1.1-2.2 [facility] Comment on above: Performed By: #### 2 [id number] #### [facility] [address] [place] [address] Alk Phos 108 Int._Unit/L High 21-98 [facility] Comment on above: Performed By: #### 2 [id number] #### [facility] [address] [place] [address] ALT 10 Int._Unit/L Normal 6-46 [facility] Comment on above: Performed By: #### 2 [id number] #### [facility] [address] [place] [address] AST 12 Int._Unit/L Normal 5-43 [facility] Comment on above: Performed By: #### 2 [id number] #### [facility] [address] [place] [address] Bili Direct 0.0 mg/dL Normal 0.0-0.4 [facility] Comment on above: Performed By: #### 2 [id number] #### [facility] [address] [place] [address] Bili Indirect 0.3 mg/dL Normal 0.1-0.9 [facility] Comment on above: Performed By: #### 2 [id number] #### [facility] [address] [place] [address] Bili Total 0.3 mg/dL Normal 0.0-1.1 [facility] Comment on above: Performed By: #### 2 [id number] #### [facility] [address] [place] [address] Globulin (S) [Mass/Vol] 3.1 g/dL Normal 1.4-4.0 [facility] Comment on above: Performed By: #### 2 [id number] #### [facility] [address] [place] [address] Protein [Mass/Vol] 7.0 g/dL Normal 6.0-7.8 [facility] Comment on above: Performed By: #### 2 [id number] #### [facility] [address] [place] [address] Lipase Levelon 10-07-2024 Lipase Lvl 24 unit/L Normal 13-58 [facility] Comment on above: Performed By: #### 2 [id number] #### [facility] [address] [place] [address] UA with Cult Rflxon 10-08-19 25 Color (U) Light-Yellow Normal Yellow [facility] Comment on above: Result Comment: Micr oscopic readings are only performed on those samples that meet specific criteria set forth by [facility]. Performed By: #### 4 [id number] #### [facility] [address] [place] [address] Glucose (U) [Mass/Vol] Negative Normal Negative [facility] Comment on above: Performed By: #### 4 [id number] #### [facility] [address] [place] [address] Ketones Ql (U) Negative Normal Negative [facility] Comment on above: Performed By: #### 4 [id number] #### [facility] [address] [place] [address] UA Blood Trace Abnormal Negative [facility] Comment on above: Performed By: #### 4 [id number] #### [facility] [address] [place] [address] UA Bacteria Trace Normal Trace [facility] Comment on above: Performed By: #### 4 [id number] #### [facility] [address] [place] [address] UA Clarity Turbid Abnormal Clear [facility] Comment on above: Performed By: #### 4 [id number] #### [facility] [address] [place] [address] UA Leuk Est 25 Po/uL Normal Negative [facility] Comment on above: Performed By: #### 4 [id number] #### [facility] [address] [place] [address] UA Mucous Negative Normal Negative [facility] Comment on above: Performed By: #### 4 [id number] #### [facility] [address] [place] [address] UA Nitrite Negative Normal Negative [facility] Comment on above: Performed By: #### 4 [id number] #### [facility] [address] [place] [address] UA pH 7.0 Invalid Interpretation Code 5.0-9.0 [facility] Comment on above: Performed By: #### 4 [id number] #### [facility] [address] [place] [address] UA Protein Negative Normal Negative [facility] Comment on above: Performed By: #### 4 [id number] #### [facility] [address] [place] [address] UA RBC 4-20 Abnormal 0-3 [facility] Comment on above: Performed By: #### 4 [id number] #### [facility] [address] [place] [address] UA Spec Grav 1.023 Invalid Interpretation Code 1.005-1.03 0 [facility] Comment on above: Performed By: #### 4 [id number] #### [facility] [address] [place] [address] UA Squam Epithelial >10 Invalid Interpretation Code [facility] Comment on above: Performed By: #### 4 [id number] #### [facility] [address] [place] [address] UA Urobilinogen Negative Normal Negative [facility] Comment on above: Performed By: #### 4 [id number] #### [facility] [address] [place] [address] UA WBC 16-25 Abnormal 0-5 [facility] Comment on above: Performed By: #### 4 [id number] #### [facility] [address] [place] [address] Urobilinogen (U) [Mass/Vol] Negative Normal Negative [facility] Comment on above: Performed By: #### 4 [id number] #### [facility] [address] [place] [address] UA Spec Desc Clean Catch Normal [facility] Comment on above: Performed By: #### [id number] #### [facility] [address] [place] [address] eGFRon 10-07-2024 eGFR 97 mL/min/1.73 m2 Normal >=59 [facility] Comment on above: Performed By: #### 1 [id number] #### [facility] [address] [place] [address] ED Note-Physicianon 08-16-19 ED Note-Physician ED Note-Physician Basic Information Time Seen: Peter Lopez PA-C 08/11/2024 18:00 Chief Complaint pt to ER c/o L flank pain. Pt states recently diagnosed with a kidney stone, pain worsening yesterday. Pt also reports nausea/vomiting, deneis fever/chills. Pt also states blood when she wipes after urinating. History of Present Illness a 34-year-old female reports emerged department with concerns of left-sided flank pain. Reports that she was recently Dx with kidney stones. Reports the pain is worsening yesterday. Reports that she also feels nausea and a couple episodes of vomiting. She reports blood when she wipes after she urinates. She denies any fevers or chills. She denies any chest pain or shortness of breath. Reports not any blood thinners. Has not followed up with urology. Review of Systems No other aggravating or relieving factors no other associated symptoms no other prior treatments or complaints. Family: Reviewed and noncontributory Social: lives at home Review of systems negative unless otherwise specified in the HPI. Physical Exam Vitals & Measurements T: 36.9 ???C(Oral) HR: 70(Monitored) RR: 18 BP: 111/75 SpO2: 99% HT: 149 cm WT: 102.5 kg BMI: 46.17 General: The patient appears well and in no apparent distress. Patient is resting comfortably on bed. Afebrile Skin: Warm, dry, no pallor noted. Head: Normocephalic, atraumatic Neck: No JVD Eye: PERRLA, EOMI ENT: Moist mucus membranes Cardiovascular: Regular rate. normal peripheral perfusion Respiratory: No respiratory distress. no accessory muscle use. no obvious audible wheezing Chest Wall: no deformity Musculoskeletal: normal ROM, no deformity, no swelling GI: No obvious distention. Abdomen soft. No rebound tenderness or guarding noted. Positive left-sided flank CVA tenderness. Neurological: A&O. moves all extremities equal strength and symmetry Psychiatric: Cooperative and appropriate Medical Decision Making 34-year-old female reports emergency department with concerns of possible kidney stone. Reports that symptoms were gone for the last couple of days. Worsening pain yesterday. Exam patient here does reveal left-sided CVA tenderness. No fevers or chills. D concerns we do lab work as well as CT. Lab reviewed noted. No acute changes seen. She does have what appears to be a UTI. CT shows no evidence of a current ureteral stone. Discussed that she may have passed 1 previously. She was understanding with this. Due to her UTI, patient started on Bactrim for antibiotic coverage. She was started on oxybutynin and Pyridium for symptoms. Discussed return precautions. Follow-up with your primary care provider in 3 to 5 days. If symptoms worsen, do not improve, or new symptoms arise please report back to emergency department for further evaluation. The patient was understanding and agreeable to plan moving forward. Assessment/Plan UTI (urinary tract infection) (N39.0: Urinary tract infection, site not specified) Orders: ketorolac, 30 mg = 1 mL, Injection, IV Push, Once, Stop date 08/11/24 18:19:00 EDT, STAT, Start date 08/11/24 18:19:00 EDT, 08/11/24 18:19:00 EDT morphine, 4 mg = 1 mL, Injection, IV Push, Once, Stop date 08/11/24 19:57:00 EDT, STAT, Start date 08/11/24 19:57:00 EDT, 08/11/24 19:57:00 EDT naproxen, 500 mg = 1 tab(s), Oral, BID, PRN Pain, with food, # 20 tab(s), Refills(s) 0, Pharmacy: [facility], 149, cm, 08/11/24 18:04:00 EDT, Height/Length Dosing, 102.5, kg, 08/11/24 18:04:00 EDT, Weight Dosing ondansetron, 4 mg = 1 tab(s), Oral, q8hr, PRN Nausea/Vomiting, # 20 tab(s), Refills(s) 0, Pharmacy: [facility], 149, cm, 08/11/24 18:04:00 EDT, Height/Length Dosing, 102.5, kg, 08/11/24 18:04:00 EDT, Weight Dosing ondansetron, 4 mg = 2 mL, Injection, IV Push, Once, Stop date 08/11/24 18:19:00 EDT, STAT, Start date 08/11/24 18:19:00 EDT, 08/11/24 18:19:00 EDT oxybutynin, 5 mg = 1 tab(s), Oral, TID, PRN for urinary discomfort, # 30 tab(s), Refills(s) 0, Pharmacy: [facility], 149, cm, 08/11/24 18:04:00 EDT, Height/Length Dosing, 102.5, kg, 08/11/24 18:04:00 EDT, Weight Dosing phenazopyridine, 100 mg = 1 tab(s), Oral, TID, X 3 day(s), # 9 tab(s), Refills(s) 0, Pharmacy: [facility], 149, cm, 08/11/24 18:04:00 EDT, Height/Length Dosing, 102.5, kg, 08/11/24 18:04:00 EDT, Weight Dosing Sodium Chloride 0.9% intravenous solution, 1,000 mL, Soln-IV, IV, Once, Stop date 08/11/24 18:19:00 EDT, STAT, Start date 08/11/24 18:19:00 EDT, Infuse over 61, minute(s) sulfamethoxazole-trimetho prim, 1 tab(s), Oral, BID for 7 day(s), 14 tab(s), Refill(s) 0, [facility], 149, cm, 08/11/24 18:04:00 EDT, Height/Length Dosing, 102.5, kg, 08/11/24 18:04:00 EDT, Weight Dosing sulfamethoxazole-trimetho prim, 1 tab(s), Tab, Oral, Once, Stop date 08/11/24 20:23:00 EDT, STAT, Start date 08/11/24 20:23:00 EDT Basic Metabolic Panel Beta hCG Qual CBC w/ Auto Diff CT Abdomen/Pelvis w/o Contrast eGFR Extra B (more content not included)... Normal [facility] Comment on above: Result Comment: Elec tronically Signed By: Peter Lopez PA-C\.br\Date and Time Signed: 08/11/24 21:26 EDT\.br\Electronically Co-Signed By: Kanu Kelly DO\.br\Date and Time Co-Signed: 08/15/24 08:12 EDT C Urineon 08-13-2024 Bacteria identified Cx Nom (U) Microbiology PROCEDURE: Urine Culture [R1] SOURCE: U CleanCatch BODY SITE: COLLECTED DATE/TIME: 08/11/2024 19:00 EDT RECEIVED DATE/TIME: 08/11/2024 21:10 EDT START DATE/TIME: 08/11/2024 21:10 EDT FREE TEXT SOURCE: Peter Lopez PA-C. Peter Lopez PA-C. FINAL REPORTS Final Report [] Verified Date/Time: 08/13/2024 09:29 EDT 2,000 cfu/ml Mixed skin contaminants Performing Locations R1: This test was performed at: [facility], [address] [place] [address], [id number] , [place], [facility] Comment on above: Performed By: #### 2 [id number] #### [facility] [address] [place] [id number] Abdomen/Pelvis w/o Contra ston 08-12-2024 CT Abdomen/Pelvis w/o Contrast Exam Date/Time: 08/11/2024 19:29 EDT Reason for Exam: ABDOMINAL PAIN, ACUTE, NONLOCALIZED;Other (please specify) Report IMPRESSION: NO ACUTE ABDOMINOPELVIC PROCESS. TINY NONOBSTRUCTING LEFT RENAL CALCULUS. EXAM: CT Abdomen/Pelvis w/o Contrast History: Left flank pain. Kidney stone. Nausea and vomiting. Technique: Multiple contiguous axial images were obtained of the abdomen and pelvis from the level of the lung bases through the ischial tuberosities without contrast. Multiplanar reformats were obtained. Unless otherwise stated, incidental findings identified in this report do not require routine follow-up imaging. Comparison: CT abdomen pelvis 07/22/2024 Findings: Lung bases are clear. Lack of intravenous contrast precludes optimal evaluation of the abdominal and pelvic viscera. Postsurgical changes of cholecystectomy. The unenhanced liver, spleen, stomach, pancreas, and adrenal glands appear within normal limits. No contour deforming mass of either kidney. Tiny nonobstructing left renal calculus. No obstructing urinary tract calculi or hydronephrosis. Urinary bladder is poorly distended but otherwise unremarkable. The uterus is present. Trace free fluid in the pelvis is likely physiologic. Abdominal aorta is nonaneurysmal. No retroperitoneal or abdominal/pelvic lymphadenopathy. No small bowel obstruction. No overt colonic mass or pericolonic inflammation. Appendix is within normal limits. No free fluid or free air. No acute osseous abnormality. All CT scans at this facility use dose modulation, iterative reconstruction, and/or weight based dosing when appropriate to reduce radiation dose to as low as reasonably achievable. Report Technical Comments: Rectal Contrast Given? No Ordering Provider: Peter Lopez FINAL REPORT Dictated: 08/12/2024 8:23 am Harvey Francis DO Signed (Electronic Signature): 08/12/2024 8:23 am Signed by: Harvey Francis DO Transcribed by: FATIMAH Technologist: CML Normal [facility] B hCG [place] 08-11-2024 Beta hCG Ql Negative Normal [facility] Comment on above: Performed By: #### 2 [id number] #### [facility] [address] [place] [address] BMPon 08-11-2024 Anion gap [Moles/Vol] 9 mmol/L Normal 6-16 [facility] Comment on above: Performed By: #### 2 [id number] #### [facility] [address] [place] [address] BUN/Creat Ratio 16 No Units Normal 10-20 [facility] Comment on above: Performed By: #### 2 [id number] #### [facility] [address] [place] [address] Calcium [Mass/Vol] 8.7 mg/dL Low 8.9-11.1 [facility] Comment on above: Performed By: #### 2 [id number] #### [facility] [address] [place] [address] Chloride [Moles/Vol] 107 mmol/L Normal 101-111 [facility] Comment on above: Performed By: #### 2 [id number] #### [facility] [address] [place] [address] CO2 [Moles/Vol] 26 mmol/L Normal 21-31 [facility] Comment on above: Performed By: #### 2 [id number] #### [facility] [address] [place] [address] Creatinine [Mass/Vol] 1.0 mg/dL Normal 0.5-1.3 [facility] Comment on above: Performed By: #### 2 [id number] #### [facility] [address] [place] [address] Glucose [Mass/Vol] 102 mg/dL Normal 55-199 [facility] Comment on above: Performed By: #### 2 [id number] #### [facility] [address] [place] [address] Potassium [Moles/Vol] 3.6 mmol/L Normal 3.5-5.3 [facility] Comment on above: Performed By: #### 2 [id number] #### [facility] [address] [place] [address] Sodium [Moles/Vol] 138 mmol/L Normal 135-145 [facility] Comment on above: Performed By: #### 2 [id number] #### [facility] [address] [place] [address] Urea nitrogen [Mass/Vol] 16 mg/dL Normal 5-21 [facility] Comment on above: Performed By: #### 2 [id number] #### [facility] [address] [place] [address] CBC w/ Auto Diffon 5 Basophil Absolute 0.1 E9/L Normal 0.0-0.2 [facility] Comment on above: Performed By: #### 2 [id number] #### [facility] [address] [place] [address] Basophils/100 WBC (Bld) 0.5 % Normal 0.0-2.0 [facility] Comment on above: Performed By: #### 2 [id number] #### [facility] [address] [place] [address] Eos Absolute 0.2 E9/L Normal 0.0-0.5 [facility] Comment on above: Performed By: #### 2 [id number] #### [facility] [address] [place] [address] Eosinophils/100 WBC (Bld) 2.0 % Normal 0.0-8.0 [facility] Comment on above: Performed By: #### 2 [id number] #### [facility] [address] [place] [address] Erythrocyte distribution width (RBC) [Ratio] 13.2 % Normal 10.9-14.2 [facility] Comment on above: Performed By: #### 2 [id number] #### [facility] [address] [place] [address] Hematocrit (Bld) [Volume fraction] 35.7 % Normal 34.0-46.0 [facility] Comment on above: Performed By: #### 2 [id number] #### [facility] [address] [place] [address] Hemoglobin (Bld) [Mass/Vol] 12.1 g/dL Normal 12.0-16.0 [facility] Comment on above: Performed By: #### 2 [id number] #### [facility] [address] [place] [address] Lymph Absolute 3.5 E9/L Normal 1.0-4.0 [facility] Comment on above: Performed By: #### 2 [id number] #### [facility] [address] [place] [address] Lymphocytes/100 WBC (Bld) 31.1 % Normal 14.0-50.0 [facility] Comment on above: Performed By: #### 2 [id number] #### [facility] [address] [place] [address] MCH (RBC) [Entitic mass] 30.0 pg Normal 27.0-34.0 [facility] Comment on above: Performed By: #### 2 [id number] #### [facility] [address] [place] [address] MCHC (RBC) [Mass/Vol] 33.9 g/dL Normal 31.4-36.0 [facility] Comment on above: Performed By: #### 2 [id number] #### [facility] [address] [place] [address] MCV (RBC) [Entitic vol] 88.6 fL Normal 80.0-100.0 [facility] Comment on above: Performed By: #### 2 [id number] #### [facility] [address] [place] [address] Kingfisher Absolute 0.7 E9/L Normal 0.2-1.0 [facility] Comment on above: Performed By: #### 2 [id number] #### [facility] [address] [place] [address] Monocytes/100 WBC (Bld) 6.0 % Normal 4.0-14.0 [facility] Comment on above: Performed By: #### 2 [id number] #### [facility] [address] [place] [address] Neutro Absolute 6.7 E9/L Normal 2.0-7.5 [facility] Comment on above: Performed By: #### 2 [id number] #### [facility] [address] [place] [address] Neutro Auto 60.4 % Normal 36.0-75.0 [facility] Comment on above: Performed By: #### 2 [id number] #### [facility] [address] [place] [address] Platelet 248.0 E9/L Normal 150.0-500. 0 [facility] Comment on above: Performed By: #### 2 [id number] #### [facility] [address] [place] [address] Platelet mean volume (Bld) [Entitic vol] 7.5 fL Normal 6.4-10.8 [facility] Comment on above: Performed By: #### 2 [id number] #### [facility] [address] [place] [address] RBC 4.0 E12/L Low 4.3-5.9 [facility] Comment on above: Performed By: #### 2 [id number] #### [facility] [address] [place] [address] WBC 11.2 E9/L High 4.0-11.0 [facility] Comment on above: Performed By: #### 2 [id number] #### [facility] [address] [place] [address] CHEMISTRYOrdered By: SYSTEM SYSTEM on 08-11-2024 Albumin [Mass/Vol] 4.0 g/dL Normal 3.3 - 5.0 gm/dL [facility] Albumin/Globulin [Mass ratio] 1.3 {ratio} Normal 1.1 - 2.2 [facility] ALP [Catalytic activity/Vol] 114 [iU]/d High 21 - 98 Int._Unit/ L [facility] ALT No additional P-5'-P [Catalytic activity/Vol] 13 [iU]/d Normal 6 - 46 Int._Unit/ L [facility] Anion gap [Moles/Vol] 9 mmol/L Normal 6 - 16 mEq/L [facility] AST [Catalytic activity/Vol] 14 [iU]/d Normal 5 - 43 Int._Unit/ L [facility] Bilirubin [Mass/Vol] 0.3 mg/dL Normal 0.0 - 1 .1 mg/dL [facility] Bilirubin.direct [Mass/Vol] 0.0 mg/dL Normal 0.0 - 0.4 mg/dL [facility] Bilirubin.indirect [Mass or moles/Vol] 0.3 mg/dL Normal 0.1 - 0.9 mg/dL [facility] Calcium [Mass/Vol] 8.7 mg/dL Low 8.9 - 11. 1 mg/dL [facility] Chloride [Moles/Vol] 107 mmol/L Normal 101 - 1 11 mmol/L [facility] CO2 [Moles/Vol] 26 mmol/L Normal 21 - 31 mmol/L [facility] Creatinine [Mass/Vol] 1.0 mg/dL Normal 0.5 - 1.3 mg/dL [facility] GFR/1.73 sq M.predicted MDRD (S/P/Bld) [Vol rate/Area] 75 mL/min/1.73 m2 Normal >=59mL/min /1.73 m2 [facility] Globulin (S) [Mass/Vol] 3.1 g/dL Normal 1.4 - 4.0 gm/dL [facility] Glucose [Mass/Vol] 102 mg/dL Normal 55 - 199 mg/dL [facility] Lipase [Catalytic activity/Vol] 31 U/L Normal 13 - 58 unit/L [facility] Potassium [Moles/Vol] 3.6 mmol/L Normal 3.5 - 5.3 mmol/L [facility] Protein [Mass/Vol] 7.1 g/dL Normal 6.0 - 7.8 gm/dL [facility] Sodium [Moles/Vol] 138 mmol/L Normal 135 - 145 mmol/L [facility] Urea nitrogen [Mass/Vol] 16 mg/dL Normal 5 - 21 mg/dL [facility] Urea nitrogen/Creatinine [Mass ratio] 16 mg/mg Normal 10 - 20 [facility] ED Clinical Summaryon 2024 ED Clinical Summary ED Clinical Summary [place] [id number] ED Clinical Summary Person Information Name: [facility]AC[facility]EL[facility] Age[facility] 34 Years : 1990 Sex: Female Language: Tuvaluan PCP: KATLIN FERNANDEZ DO Marital Status: Single Visit Id: Visit Reason: Vomiting; Nausea; Flank pain; KIDNEY STONES, PAIN, N/V Speciality: Acuity: 3 Enc Type: Emergency Med Service: Emergency Arrival: 08/11/2024 17:51:07 Discharge: 08/11/2024 20:40:24 LOS: 000 02:49 Checkin: 08/11/2024 17:51:07 Checkout: 08/11/2024 20:40:24 Dispo Type: Home (Routine DC) EVENTS: Event Name Event Status Request Date/Time Start Date/Time Complete Date/Time Arrive Complete 08/11/2024 17:51:07 08/11/2024 17:51:07 08/11/2024 17:51:07 Document Home Meds Request 08/11/2024 17:51:07 Triage Complete 08/11/2024 17:51:07 08/11/2024 18:04:13 08/11/2024 18:04:13 Bed Assign Complete 08/11/2024 17:59:11 08/11/2024 17:59:11 08/11/2024 17:59:11 Dr Exam Complete 08/11/2024 17:59:11 08/11/2024 18:00:09 08/11/2024 18:00:09 RN Exam Complete 08/11/2024 17:59:11 08/11/2024 19:05:16 08/11/2024 19:05:16 Registration Complete 08/11/2024 18:00:09 08/11/2024 18:12:16 08/11/2024 18:12:16 Dr Exam Complete 08/11/2024 18:01:24 08/11/2024 18:01:24 08/11/2024 18:01:24 Reg Complete Request 08/11/2024 18:12:16 Reg Bed Request Complete 08/11/2024 18:12:16 08/11/2024 18:12:16 08/11/2024 18:12:16 CT Complete 08/11/2024 18:20:24 08/11/2024 19:13:29 08/11/2024 19:29:26 Meds Admin Complete 08/11/2024 18:20:24 08/11/2024 18:44:18 Pending Labs Complete 08/11/2024 18:20:24 08/11/2024 19:22:34 Lab Complete 08/11/2024 18:20:24 08/11/2024 19:08:24 Pending Labs Complete 08/11/2024 18:41:21 08/11/2024 18:41:21 08/11/2024 19:08:24 Lab Complete 08/11/2024 18:41:21 08/11/2024 18:41:21 08/11/2024 19:08:24 Pending Labs Complete 08/11/2024 18:42:07 08/11/2024 18:42:07 08/11/2024 18:42:07 Pending Labs Collected 08/11/2024 19:22:34 08/11/2024 19:22:34 Lab Collected 08/11/2024 19:22:34 08/11/2024 19:22:34 Meds Admin Complete 08/11/2024 19:57:58 08/11/2024 20:18:01 Meds Admin Request 08/11/2024 20:25:09 Discharge Complete 08/11/2024 20:27:03 08/11/2024 20:40:32 08/11/2024 20:40:32 Transfer Complete 08/11/2024 20:40:32 08/11/2024 20:40:32 08/11/2024 20:40:32 ADDRESS: [address] [place] [address] [address] [facility] [id number] PHYS DOC NOTES: MEDICAL INFORMATION: Prescriptions Given: New Medications [facility], [address], [place] [id number], [phone] oxybutynin (oxybutynin 5 mg Tab) 1 Tablets By Mouth 3 times a day as needed for urinary discomfort. Refills: 0. phenazopyridine (Pyridium 100 mg Tab) 1 Tablets By Mouth 3 times a day for 3 Days. Refills: 0. sulfamethoxazole-trimetho prim (Bactrim D.S. 800 mg-160 mg Tab) 1 Tablets By Mouth 2 times a day for 7 Days. Refills: 0. Medications to Continue Taking That Have Changed [facility], [address], [place] [id number], [phone] START: naproxen (naproxen 500 mg Tab) 1 Tablets By Mouth 2 times a day as needed Pain. with food. Refills: 0. START: ondansetron (Zofran ODT 4 mg Tab-Dis) 1 Tablets By Mouth every 8 hours as needed Nausea/Vomiting. Refills: 0. Other Medications START: naproxen (Naprosyn 500 mg Tab) 1 Tablets By Mouth 2 times a day as needed for pain. Refills: 0. START: naproxen (Naprosyn 500 mg Tab) 1 Tablets By Mouth 2 times a day. Refills: 0. START: naproxen (naproxen 375 mg Tab) 1 Tablets By Mouth every 12 hours. Refills: 0. START: naproxen (naproxen 500 mg Tab) 1 Tablets By Mouth 2 times a day as needed Pain. Refills: 0. START: ondansetron (Zofran ODT 4 mg Tab) 1 Tablets By Mouth every 6 hours as needed Nausea/Vomiting. Refills: 0. START: ondansetron (Zofran ODT 4 mg Tab) 1 Tablets By Mouth every 6 hours as needed Nausea/Vomiting. Refills: 0. START: ondansetron (Zofran ODT 4 mg Tab-Dis) 1 Tablets By Mouth every 8 hours. Refills: 0. START: ondansetron (Zofran ODT [...] Inhalation 4 times a day as needed Lisa (more content not included)... Normal [facility] ED Patient Summaryon 025 ED Patient Summary ED Patient Summary [address] [address] Patient Discharge Instructions Person Information Name: TRACIE SAMUELS Age: 34 Years Arrival Date: 08/11/2024 17:51:07 Discharge Diagnosis: UTI (urinary tract infection) Primary Care Physician: KATLIN FERNANDEZ DO Provider Information Primary Provider: Kanu Kelly DO Advanced Assistant Therapy Aide:Peter Lopez PA-C The exam and treatment you received in the Emergency Department were for an urgent problem and are not intended as complete care. It is important that you follow up with a doctor, nurse practitioner, or physician???s assistant therapy aide for ongoing care. If your symptoms become worse or you do not improve as expected and you are unable to reach your usual health care provider, you should return to the Emergency Department. We are available 24 hours a day. TRACIE SAMUELS has been given the following list of patient education materials, prescriptions and follow-up instructions: Follow-up Instructions: With: Address: When: KATLIN FERNANDEZ [address] [place] [id number] [facility] () In 3 days 08/14/2024 Comments: Call Dr for diagnosis based follow up In the event that this physician does not participate in your insurance network, please consult with your insurance company to find a nearby participating provider. Patient Education Materials: Flank Pain, Adult, Pazy-oy-Vbyi; Urinary Tract Infection, Adult, Apyj-qc-Hsyq; Nausea and Vomiting, Adult, Mzqk-[id number] A MESSAGE TO ALL PATIENTS REGARDING OPIOIDS PRESCRIPTION OPIOIDS: WHAT YOU NEED TO KNOW Prescription opioids can be used to help relieve sccgqbdd-rb-uwqqdq pain and are often prescribed following a [...] as well, even when taken as directed: ??? Tolerance???meaning you might need to take more of the medication for the same pain relief ??? Physical dependence???meaning you have symptoms of withdrawal when a medication is stopped ??? Increased sensitivity to pain ??? Constipation ??? Nausea, vomiting, and dry mouth ??? Sleepiness and dizziness ??? Confusion ??? Depression ??? Low levels of testosterone that can result in lower sex drive, energy, and strength ??? Itching and sweating RISKS ARE GREATER WITH: ??? History of drug misuse, substance use disorder, or overdose ??? Mental health conditions (such as depression or anxiety) ??? Sleep apnea ??? Older age (65 years and older) ??? Avoid alcohol while taking prescription opioids. Also, unless specifically advised by your health care provider, medications to avoid include: ??? Benzodiazepines (such as Xanax or Valium) ??? Muscle relaxants (such as Soma or Flexeril) ??? Hypnotics (such as Ambien or Lunesta) ??? Other prescription opioids KNOW YOUR OPTIONS Talk to your health care provider about ways to manage your pain that don???t involve prescription opioids. Some of these options may actually work better and have fewer risks and side effects. Options may include: ??? Pain relievers such as acetaminophen, ibuprofen, and naproxen ??? Some medication that are also used for depression or seizures ??? Physical therapy and exercise ??? Cognitive behavioral therapy, a psychological, goal-directed approach, in which patients learn how to modify physical, behavioral, and emotional triggers of pain and stress. IF YOU ARE PRESCRIBED OPIOIDS FOR PAIN: ??? Never take opioids in greater amounts or more often than prescribed. ??? Follow up with your primary health care provider. o Work together to create a plan on how to manage your pain. o Talk about ways to help manage your pain that don???t involve prescription opioids. o Talk about any and all concerns and side effects. ??? Help prevent misuse and abuse o Never sell or share prescription opioids. o Never use another person???s prescription opioids. ??? Store prescription opioids in a secure place and out of reach of others (this may include visitors, children, friends, and family). ??? Safely dispose of unused prescription opioids: Find your community drug take-back program or your pharmacy mail-back program, or flush them down the toilet, following guidance from the Food and Drug Administration (www.fda.gov/Drugs/Resour cesForYou). ??? Visit www.cdc.gov/drugoverdo (more content not included)... Normal [facility] Extra Blueon 08-11-2024 Tube Collected Plasma Yes Invalid Interpretation Code [facility] Comment on above: Performed By: #### 1 [id number] #### [facility] [address] [place] [address] HEMATOLOGYOrdered By: SYSTEM SYSTEM on 08-11-2024 Basophils/100 WBC (Bld) 0.5 % Normal 0.0 - 2.0 % Remisol Heme Basophils/Leukocytes Auto (Bld) [Pure # fraction] 0.1 E9/L Normal 0.0 - 0.2 E9/L Remisol Heme Eosinophils (Bld) [#/Vol] 0.2 E9/L Normal 0.0 - 0.5 E9/L Rem[facility] Heme Eosinophils/100 WBC (Bld) 2.0 % Normal 0.0 - 8.0 % Remisol Heme Erythrocyte distribution width (RBC) [Ratio] 13.2 % Normal 10.9 - 14.2 % [facility] Heme Hematocrit (Bld) [Volume fraction] 35.7 % Normal 34.0 - 46.0 % [facility] Heme Hemoglobin (Bld) [Mass/Vol] 12.1 g/dL Normal 12.0 - 16.0 gm/dL [facility] Heme Lymphocytes (Bld) [#/Vol] 3.5 E9/L Normal 1.0 - 4.0 E9/L [facility] Heme Lymphocytes/100 WBC (Bld) 31.1 % Normal 14.0 - 50.0 % Remisol Heme MCH (RBC) [Entitic mass] 30.0 pg Normal 27.0 - 34.0 pg Remisol Heme MCHC (RBC) [Mass/Vol] 33.9 g/dL Normal 31.4 - 36.0 gm/dL [facility]e MCV (RBC) [Entitic vol] 88.6 fL Normal 80.0 - 100.0 fL [facility] Monocytes (Bld) [#/Vol] 0.7 E9/L Normal 0.2 - 1.0 E9/L [facility] Monocytes/100 WBC (Bld) 6.0 % Normal 4.0 - 14.0 % [facility] Heme Neutrophils (Bld) [#/Vol] 6.7 E9/L Normal 2.0 - 7.5 E9/L [facility] Neutrophils/100 WBC (Bld) 60.4 % Normal 36.0 - 75.0 % [facility] Platelet mean volume (Bld) [Entitic vol] 7.5 fL Normal 6.4 - 10.8 fL [facility] Platelets (Bld) [#/Vol] 248.0 E9/L Normal 150.0 - 500.0 E9/L [facility] Heme RBC (Bld) [#/Vol] 4.0 E12/L Low 4.3 - 5.9 E12/L [facility] WBC corrected for nucl RBC Auto (Bld) [#/Vol] 11.2 E9/L High 4.0 - 11.0 E9/L [facility] Hem[facility] Hep Func Panelon 08-11-2024 Albumin [Mass/Vol] 4.0 g/dL Normal 3.3-5.0 [facility] Comment on above: Performed By: #### 2 [id number] #### [facility] [address] [place] [address] Albumin/Globulin [Mass ratio] 1.3 {ratio} Normal 1.1-2.2 [facility] Comment on above: Performed By: #### 2 [id number] #### [facility] [address] [place] [address] Alk Phos 114 Int._Unit/L High 21-98 [facility] Comment on above: Performed By: #### 2 [id number] #### [facility] [address] [place] [address] ALT 13 Int._Unit/L Normal 6-46 [facility] Comment on above: Performed By: #### 2 [id number] #### [facility] [address] [place] [address] AST 14 Int._Unit/L Normal 5-43 [facility] Comment on above: Performed By: #### 2 [id number] #### [facility] [address] [place] [address] Bili Direct 0.0 mg/dL Normal 0.0-0.4 [facility] Comment on above: Performed By: #### 2 [id number] #### [facility] [address] [place] [address] Bili Indirect 0.3 mg/dL Normal 0.1-0.9 [facility] Comment on above: Performed By: #### 2 [id number] #### [facility] [address] [place] [address] Bili Total 0.3 mg/dL Normal 0.0-1.1 [facility] Comment on above: Performed By: #### 2 [id number] #### [facility] [address] [place] [address] Globulin (S) [Mass/Vol] 3.1 g/dL Normal 1.4-4.0 [facility] Comment on above: Performed By: #### 2 [id number] #### [facility] [address] [place] [address] Protein [Mass/Vol] 7.1 g/dL Normal 6.0-7.8 [facility] Comment on above: Performed By: #### 2 [id number] #### [facility] [address] [place] [address] Lipase Levelon 08-11-2024 Lipase Lvl 31 unit/L Normal 13-58 [facility] Comment on above: Performed By: #### 2 [id number] #### [facility] [address] [place] [address] SEROLOGYOrdered By: Keke Gillespie on 08-11-2024 Beta HCG ( test) Ql Negative (08/11/24 6:35 PM) Normal [facility] Man Sero UA with Cult Rflxon 08-12-19 25 Color (U) Light-Yellow Normal Yellow [facility] Comment on above: Result Comment: Micr oscopic readings are only performed on those samples that meet specific criteria set forth by [facility]. Performed By: #### 4 [id number] #### [facility] [address] [place] [address] Glucose (U) [Mass/Vol] Negative Normal Negative [facility] Comment on above: Performed By: #### 4 [id number] #### [facility] [address] [place] [address] Ketones Ql (U) Negative Normal Negative [facility] Comment on above: Performed By: #### 4 [id number] #### [facility] [address] [place] [address] UA Blood 2+ mg/dL Abnormal Negative [facility] Comment on above: Performed By: #### 4 [id number] #### [facility] [address] [place] [address] UA Amorph Bertha Present Abnormal [facility] Comment on above: Performed By: #### 4 [id number] #### [facility] [address] [place] [address] UA Bacteria Trace Normal Trace [facility] Comment on above: Performed By: #### 4 [id number] #### [facility] [address] [place] [address] UA Clarity Turbid Abnormal Clear [facility] Comment on above: Performed By: #### 4 [id number] #### [facility] [address] [place] [address] UA Leuk Est 250 Po/uL Abnormal Negative [facility] Comment on above: Performed By: #### 4 [id number] #### [facility] [address] [place] [address] UA Mucous Trace Normal Negative [facility] Comment on above: Performed By: #### 4 [id number] #### [facility] [address] [place] [address] UA Nitrite Negative Normal Negative [facility] Comment on above: Performed By: #### 4 [id number] #### [facility] [address] [place] [address] UA pH 6.5 Invalid Interpretation Code 5.0-9.0 [facility] Comment on above: Performed By: #### 4 [id number] #### [facility] [address] [place] [address] UA Protein Negative Normal Negative [facility] Comment on above: Performed By: #### 4 [id number] #### [facility] [address] [place] [address] UA RBC 31-75 Abnormal 0-3 [facility] Comment on above: Performed By: #### 4 [id number] #### [facility] [address] [place] [address] UA Spec Grav 1.024 Invalid Interpretation Code 1.005-1.03 0 [facility] Comment on above: Performed By: #### 4 [id number] #### [facility] [address] [place] [address] UA Squam Epithelial 9-10 Invalid Interpretation Code [facility] Comment on above: Performed By: #### 4 [id number] #### [facility] [address] [place] [address] UA Urobilinogen Negative Normal Negative [facility] Comment on above: Performed By: #### 4 [id number] #### [facility] [address] [place] [address] UA WBC 16-25 Abnormal 0-5 [facility] Comment on above: Performed By: #### 4 [id number] #### [facility] [address] [place] [address] UA Spec Desc Clean Catch Normal [facility] Comment on above: Performed By: #### 4 [id number] #### [facility] [address] [place] [address] UA with Cult RflxOrdered By: SYSTEM SYSTEM on 08-11-2024 Urobilinogen (U) [Mass/Vol] Negative Normal Negative [facility] UA Auto SS Comment on above: Performed By: #### 4 [id number] #### [facility] [address] [place] [address] URINALYSISOrdered By: SYSTEM SYSTEM on 08-11-2024 Bacteria Auto Ql (U) Trace /HPF Normal Trace/HPF [facility] UA Auto SS Bilirubin Ql (U) Negative Normal Negativemg /dL [facility] UA Auto SS Clarity (U) Turbid *ABN* (08/11/24 7:00 PM) Invalid Interpretation Code Clear [facility] UA Auto SS Color (U) Light-Yellow 1 (08/11/24 7:00 PM) Normal Yellow [facility] UA Auto SS Comment on above: Interpretive Data: M icroscopic readings are only performed on those samples that meet specific criteria set forth by [facility]. Crystals.amorphous Computer assisted Ql (U) Present graded/HPF Invalid Interpretation Code [facility] UA Auto SS Epithelial cells.squamous Auto (Urine sed) [#/Area] 9-10 graded/HPF Invalid Interpretation Code [facility] UA Auto SS Glucose Ql (U) Negative Normal Negativemg /dL [facility] UA Auto SS Hemoglobin Auto test strip (U) [Mass/Vol] 2+ mg/dL Invalid Interpretation Code Negativemg /dL [facility] UA Auto SS Ketones Auto test strip Ql (U) Negative Normal Negativemg /dL [facility] UA Auto SS Leukocyte esterase Auto test strip Ql (U) 250 Po/uL Po/uL Invalid Interpretation Code NegativeLe u/uL [facility] UA Auto SS Mucus Auto Ql (U) Trace graded/LPF Normal Negati vegr aded/LPF [facility] UA Auto SS Nitrite Auto test strip Ql (U) Negative Normal Negativemg /dL [facility] UA Auto SS pH (U) 6.5 *NA* (08/11/24 7:00 PM) Invalid Interpretation Code 5.0 - 9.0 [facility] UA Auto SS Protein Ql (U) Negative Normal Negativemg /dL [facility] UA Auto SS RBC Ql (U) 31-75 graded/HPF Invalid Interpretation Code 0-3graded/ HPF [facility] UA Auto SS Specific gravity (U) [Rel density] 1.024 *NA* (08/11/24 7:00 PM) Invalid Interpretation Code 1.005 - 1.030 [facility] UA Auto SS WBC Auto (Urine sed) [#/Area] graded/HPF Invalid Interpretation Code 0-5graded/ HPF [facility] UA Auto SS URINALYSISOrdered By: Peter fierro on 08-11-2024 UA Spec Desc Clean Catch (08/11/24 7:00 PM) Normal [facility] UA Auto SS eGFRon 08-11-2024 eGFR 75 mL/min/1.73 m2 Normal >=59 [facility] Comment on above: Performed By: #### 1 [id number] #### [facility] [address] [place] [address] ED Note-Physicianon 07-26-19 ED Note-Physician ED Note-Physician Basic Information Time Seen: Vasile POWER, Treasure Whitmore 07/22/2024 17:21 Chief Complaint pt reports l kidney pain and l knee pain after a fall yesterday. has some diarrhea. History of Present Illness Patient is a 34 year old female who presents to the ED with right knee pain and left flank pain. Patient states she was walking on the steps, when she missed the last step, falling onto her right knee on cement denys that occurred yesterday. She notes pain is worsened with relation and improved with rest. She has used heat and Tylenol with minimal improvement of pain. Denies head trauma or LOC. Patient also complains of left flank pain that has persisted for a week. The pain is sharp and radiates to her left groin area. Denies injury or trauma to the area. She does have a history of kidney stones. Patient notes urinary frequency but denies dysuria or hematuria. She denies any known fevers or nausea/vomiting. Patient states she is experiencing some diarrhea today as well, but notes she frequently has fluctuations in bowel movements. Review of Systems A 10 point review of systems is negative except as noted above. Medical and Surgical History: Reviewed and noted Social history: Lives at home Family History: Reviewed. Tobacco: Use Physical Exam Vitals & Measurements T: 37.1 ???C(Oral) HR: 66(Monitored) RR: 18 BP: 114/70 SpO2: 97% HT: 149 cm WT: 97 kg BMI: 43.69 General: The patient appears well and in no apparent distress. Patient is resting comfortably on cart. Skin: Warm, dry, no pallor noted. Head: Normocephalic, atraumatic Neck: No JVD, full range of motion of the cervical spine without midline spinal tenderness Eye: PERRLA, EOMI ENT: Moist mucus membranes Cardiovascular: Regular rate normal peripheral perfusion Respiratory: No respiratory distress no accessory muscle use no obvious audible wheezing Chest Wall: no deformity Musculoskeletal: normal ROM, no deformity, no swelling, no focal bony tenderness to palpation of the left knee. No overlying erythema. Pain is reproducible with knee extension. Neurovascular intact. Mild left CVA tenderness to palpation GI: Soft no obvious distention. No rebound or rigidity. No guarding. No tenderness. Neurological: A&O moves all extremities equal strength and symmetry Psychiatric: Cooperative and appropriate Procedure Treasure Reed PA-C had a [id number] interaction with the patient. I personally performed a physical exam and medical decision making. I have verified the documentation by the student as accurately representing the information obtained. Medical Decision Making Patient is a 34 year old female who presents to the ED with right knee pain and left flank pain. Patient is hemodynamically stable and afebrile. She is given Toradol and Zofran. Knee x-ray interpreted myself does not show any acute osseous abnormalities. Lab work is reviewed. Alk phos of 116, increased from 90. Kidney function is normal. Urinalysis is concerning for infection. CT abdomen/pelvis is showing a stable, nonobstructing left upper pole renal stone. Normal right kidney and appendix. Patient was updated on the results. She noted continued pain and is given IM morphine and dicyclomine. Patient is prescribed Bactrim for her UTI and given the first dose prior to discharge. She was educated on symptomatic management. Patient will follow-up with urology. She is advised to return to the ED with any new or worsening symptoms. Patient is agreeable to plan and all questions were answered. Assessment/Plan Acute UTI (urinary tract infection) (N39.0: Urinary tract infection, site not specified) Knee pain, right (M25.561: Pain in right knee) Renal colic (N23: Unspecified renal colic) Orders: dicyclomine, 20 mg = 2 mL, Injection, IntraMuscular, Once, Stop date 07/22/24 19:45:00 EDT, STAT, Start date 07/22/24 19:45:00 EDT, 07/22/24 19:45:00 EDT ketorolac, 30 mg = 1 mL, Injection, IntraMuscular, Once, Stop date 07/22/24 18:20:00 EDT, STAT, Start date 07/22/24 18:20:00 EDT, 07/22/24 18:20:00 EDT morphine, 4 mg = 1 mL, Injection, IntraMuscular, Once, Stop date 07/22/24 21:43:00 EDT, STAT, Start date 07/22/24 21:43:00 EDT, 07/22/24 21:43:00 EDT naproxen, 500 mg = 1 tab(s), Oral, BID, PRN Pain, # 30 tab(s), Refills(s) 0, Pharmacy: [facility], 149, cm, 07/22/24 17:18:00 EDT, Height/Length Dosing, 94.4, kg, 07/22/24 18:10:00 EDT, Weight Dosing ondansetron, 4 mg = 1 tab(s), Tab-Dis, Oral, Once, Stop date 07/22/24 18:20:00 EDT, STAT, Start date 07/22/24 18:20:00 EDT, 07/22/24 18:20:00 EDT sulfamethoxazole-trimetho prim, 1 tab(s), Tab, Oral, Once, Stop date 07/22/24 21:42:00 EDT, STAT, Start date 07/22/24 21:42:00 EDT sulfamethoxazole-trimetho prim, 1 tab(s), Oral, BID for 5 day(s), 10 tab(s), Refill(s) 0, [facility], 149, cm, 07/22/24 17:18:00 EDT, Height/Length Dosing, 94.4, kg, 07/22/24 18:10:00 EDT, Weight Dosing tamsulosin, 0.4 mg = 1 cap(s), Oral, Daily, # 10 cap(s), R (more content not included)... Normal [facility] Comment on above: Result Comment: Elec tronically Signed By: Treasure Burnette PA-C\.br\Date and Time Signed: 07/22/24 23:58 EDT\.br\Electronically Co-Signed By: Treasure Burnette PA-C\.br\Date and Time Co-Signed: 07/22/24 23:58 EDT\.br\Electronically Co-Signed By: Kanu Kelly DO\.br\Date and Time Co-Signed: 07/25/24 07:18 EDT C Urineon 07-24-2024 Bacteria identified Cx Nom (U) Microbiology PROCEDURE: Urine Culture [R1] SOURCE: U CleanCatch BODY SITE: COLLECTED DATE/TIME: 07/22/2024 18:06 EDT RECEIVED DATE/TIME: 07/22/2024 18:56 EDT START DATE/TIME: 07/22/2024 18:56 EDT FREE TEXT SOURCE: Treasure Burnette PA-C, PA-C, Rachel L. FINAL REPORTS Final Report [] Verified Date/Time: 07/24/2024 10:30 EDT <10,000 cfu/ml Mixed skin contaminants Performing Locations R1: This test was performed at: [facility], [address] [place] [address], [facility]- , [place], [facility] Comment on above: Performed By: #### 2 [id number] #### [facility] [address] [place] [address] CT Abdomen/Pelvis w/o Contra ston 07-23-2024 CT Abdomen/Pelvis w/o Contrast Exam Date/Time: 07/22/2024 18:50 EDT Reason for Exam: Pain Report IMPRESSION: NONOBSTRUCTING LEFT RENAL CALCULUS. CHOLECYSTECTOMY. 2.9 X 2.3 CM LEFT ADNEXAL CYST, MOST LIKELY OVARIAN IN ETIOLOGY. CT OF THE ABDOMEN AND PELVIS WITHOUT INTRAVENOUS CONTRAST MEDIUM. HISTORY: PAIN. .C/O LT. KIDNEY PAIN, STATES SHE FELL RECENTLY ONTO RT. SIDE. HX. OF GASTRITIS, CARLIN. GASTRIC OUTLET SYNDROME, TUBAL. TECHNICAL FACTORS: CT imaging of the abdomen and pelvis were obtained and formatted as 5 mm contiguous axial images from the domes of the diaphragm to the symphysis pubis. Sagittal and coronal reconstructions were also obtained. Comparison: 08/27/2023. Findings: Lower chest: Cardiac size normal. No pericardial effusion. No coronary artery calcification bases clear. Liver: Normal in size, shape, and attenuation. Bile Ducts: Normal in caliber. Gallbladder: Gallbladder surgically absent. Pancreas: Normal without masses, cysts, ductal dilatation or calcification. Spleen: Normal in size without masses or calcifications. No splenules. Kidneys: Normal in size. No hydronephrosis, or masses. 3.5 mm calculus upper pole left kidney. Adrenals: Normal. Small bowel: Normal in caliber. Appendix: Normal. Colon: Normal in caliber. Peritoneum: No ascites, free air, or fluid collections. Report Vessels: Aorta normal in course and caliber. Lymph nodes: Retroperitoneal: No enlarged retroperitoneal lymph nodes. Mesenteric: No enlarged mesenteric lymph nodes. Pelvic: No enlarged pelvic lymph nodes. Ureters: Normal in course and caliber. No calcifications. Bladder: Decompressed. Reproductive organs: 2.9 x 2.3 cm left adnexal cyst. Abdominal Wall: No hernia identified. No diastasis of rectus musculature. No edema or masses. Bones: No bone lesions. No degenerative changes. No post operative changes. All CT scans at this facility use dose modulation, iterative reconstruction, and/or weight based dosing when appropriate to reduce radiation dose to as low as reasonably achievable. Technical Comments: Rectal Contrast Given? No Ordering Provider: Treasure Burnette FINAL REPORT Dictated: 07/23/2024 8:34 am Tong Worthington MD Signed (Electronic Signature): 07/23/2024 8:34 am Signed by: Tong Worthington MD Transcribed by: FATIMAH Technologist: LY Estevez [facility] XR Knee Complete 4+ Views Jessie noemi 07-23-2024 XR Knee Complete 4+ Views Right Exam Date/Time: 07/22/2024 18:01 EDT Reason for Exam: Fall Report IMPRESSION: NO ACUTE OSSEOUS ABNORMALITY. EXAM: XR Knee Complete 4+ Views Right HISTORY: Knee pain TECHNIQUE: AP, lateral and oblique views of the knee obtained. COMPARISON: None available FINDINGS: No acute fracture or dislocation. Joint spaces of the knee are maintained. No knee joint effusion. Soft tissues are within normal limits. Ordering Provider: Treasure Burnette FINAL REPORT Dictated: 07/23/2024 9:04 am Harvey Francis DO Signed (Electronic Signature): 07/23/2024 9:04 am Signed by: Harvey Francis DO Transcribed by: FATIMAH Technologist: KARLENE Yepez [facility] BMPon 07-22-2024 Anion gap [Moles/Vol] 9 mmol/L Normal 6-16 [facility] Comment on above: Performed By: #### 2 [id number] #### [facility] [address] [place] [address] Calcium [Mass/Vol] 8.8 mg/dL Low 8.9-11.1 [facility] Comment on above: Performed By: #### 2 [id number] #### [facility] [address] [place] [address] Chloride [Moles/Vol] 106 mmol/L Normal 101-111 [facility] Comment on above: Performed By: #### 2 [id number] #### [facility] [address] [place] [address] CO2 [Moles/Vol] 26 mmol/L Normal 21-31 [facility] Comment on above: Performed By: #### 2 [id number] #### [facility] [address] [place] [address] Creatinine [Mass/Vol] 0.8 mg/dL Normal 0.5-1.3 [facility] Comment on above: Performed By: #### 2 [id number] #### [facility] [address] [place] [address] Glucose [Mass/Vol] 105 mg/dL Normal 55-199 [facility] Comment on above: Performed By: #### 2 [id number] #### [facility] [address] [place] [address] Potassium [Moles/Vol] 3.7 mmol/L Normal 3.5-5.3 [facility] Comment on above: Performed By: #### 2 [id number] #### [facility] [address] [place] [address] Sodium [Moles/Vol] 137 mmol/L Normal 135-145 [facility] Comment on above: Performed By: #### 2 [id number] #### [facility] [address] [place] [address] Urea nitrogen [Mass/Vol] 15 mg/dL Normal 5-21 [facility] Comment on above: Performed By: #### 2 [id number] #### [facility] [address] [place] [address] Urea nitrogen/Creatinine [Mass ratio] 19 No Units Normal 10-20 [facility] Comment on above: Performed By: #### 2 [id number] #### [facility] [address] [place] [address] CBC w/ Auto Diffon 5 Basophils/100 WBC (Bld) 0.4 % Normal 0.0-2.0 [facility] Comment on above: Performed By: #### 2 [id number] #### [facility] [address] [place] [address] Basophils/Leukocytes Auto (Bld) [Pure # fraction] 0.0 E9/L Normal 0.0-0.2 [facility] Comment on above: Performed By: #### 2 [id number] #### [facility] [facility] [address] [place] [address] Eosinophils (Bld) [#/Vol] 0.2 E9/L Normal 0.0-0.5 [facility] Comment on above: Performed By: #### 2 [id number] #### [facility] [address] [place] [address] Eosinophils/100 WBC (Bld) 1.9 % Normal 0.0-8.0 [facility] Comment on above: Performed By: #### 2 [id number] #### [facility] [address] [place] [address] Erythrocyte distribution width (RBC) [Ratio] 13.2 % Normal 10.9-14.2 [facility] Comment on above: Performed By: #### 2 [id number] #### [facility] [address] [place] [address] Hematocrit (Bld) [Volume fraction] 35.5 % Normal 34.0-46.0 [facility] Comment on above: Performed By: #### 2 [id number] #### [facility] [address] [place] [address] Hemoglobin (Bld) [Mass/Vol] 12.6 g/dL Normal 12.0-16.0 [facility] Comment on above: Performed By: #### 2 [id number] #### [facility] [address] [place] [address] Lymphocytes (Bld) [#/Vol] 3.3 E9/L Normal 1.0-4.0 [facility] Comment on above: Performed By: #### 2 [id number] #### [facility] [address] [place] [address] Lymphocytes/100 WBC (Bld) 30.9 % Normal 14.0-50.0 [facility] Comment on above: Performed By: #### 2 [id number] #### [facility] [address] [place] [address] MCH (RBC) [Entitic mass] 31.3 pg Normal 27.0-34.0 [facility] Comment on above: Performed By: #### 2 [id number] #### [facility] [address] [place] [address] MCHC (RBC) [Mass/Vol] 35.4 g/dL Normal 31.4-36.0 [facility] Comment on above: Performed By: #### 2 [id number] #### [facility] [address] [place] [address] MCV (RBC) [Entitic vol] 88.3 fL Normal 80.0-100.0 [facility] Comment on above: Performed By: #### 2 [id number] #### [facility] [address] [place] [address] Monocytes (Bld) [#/Vol] 0.8 E9/L Normal 0.2-1.0 [facility] Comment on above: Performed By: #### 2 [id number] #### [facility] [address] [place] [address] Neutrophils (Bld) [#/Vol] 6.4 E9/L Normal 2.0-7.5 [facility] Comment on above: Performed By: #### 2 [id number] #### [facility] [address] [place] [address] Neutrophils/100 WBC (Bld) 59.8 % Normal 36.0-75.0 [facility] Comment on above: Performed By: #### 2 [id number] #### [facility] [address] [place] [address] Platelet 264.0 E9/L Normal 150.0-500. 0 [facility] Comment on above: Performed By: #### 2 [id number] #### [facility] [address] [place] [address] Platelet mean volume (Bld) [Entitic vol] 6.8 fL Normal 6.4-10.8 [facility] Comment on above: Performed By: #### 2 [id number] #### [facility] [address] [place] [address] RBC (Bld) [#/Vol] 4.0 E12/L Low 4.3-5.9 [facility] Comment on above: Performed By: #### 2 [id number] #### [facility] [address] [place] [address] WBC corrected for nucl RBC Auto (Bld) [#/Vol] 10.8 E9/L Normal 4.0-11.0 [facility] Comment on above: Performed By: #### 2 [id number] #### [facility] [address] [place] [address] CHEMISTRYOrdered By: SYSTEM SYSTEM on 07-22-2024 Albumin [Mass/Vol] 3.9 g/dL Normal 3.3 - 5.0 gm/dL [facility] Albumin/Globulin [Mass ratio] 1.1 {ratio} Normal 1.1 - 2.2 [facility] ALP [Catalytic activity/Vol] 116 [iU]/d High 21 - 98 Int._Unit/ L [facility] Chem ALT No additional P-5'-P [Catalytic activity/Vol] 13 [iU]/d Normal 6 - 46 Int._Unit/ L [facility] Anion gap [Moles/Vol] 9 mmol/L Normal 6 - 16 mEq/L [facility] AST [Catalytic activity/Vol] 13 [iU]/d Normal 5 - 43 Int._Unit/ L [facility] Bilirubin [Mass/Vol] 0.3 mg/dL Normal 0.0 - 1 .1 mg/dL [facility] Bilirubin.direct [Mass/Vol] 0.1 mg/dL Normal 0.0 - 0.4 mg/dL [facility] Bilirubin.indirect [Mass or moles/Vol] 0.2 mg/dL Normal 0.1 - 0.9 mg/dL [facility] Calcium [Mass/Vol] 8.8 mg/dL Low 8.9 - 11. 1 mg/dL [facility] Chloride [Moles/Vol] 106 mmol/L Normal 101 - 1 11 mmol/L [facility] CO2 [Moles/Vol] 26 mmol/L Normal 21 - 31 mmol/L [facility] Creatinine [Mass/Vol] 0.8 mg/dL Normal 0.5 - 1.3 mg/dL [facility] GFR/1.73 sq M.predicted MDRD (S/P/Bld) [Vol rate/Area] 98 mL/min/1.73 m2 Normal >=59mL/min /1.73 m2 [facility] Globulin (S) [Mass/Vol] 3.4 g/dL Normal 1.4 - 4.0 gm/dL [facility] Glucose [Mass/Vol] 105 mg/dL Normal 55 - 199 mg/dL [facility] Lipase [Catalytic activity/Vol] 29 U/L Normal 13 - 58 unit/L [facility] Potassium [Moles/Vol] 3.7 mmol/L Normal 3.5 - 5.3 mmol/L [facility] Protein [Mass/Vol] 7.3 g/dL Normal 6.0 - 7.8 gm/dL [facility] Sodium [Moles/Vol] 137 mmol/L Normal 135 - 145 mmol/L [facility] Urea nitrogen [Mass/Vol] 15 mg/dL Normal 5 - 21 mg/dL [facility] Urea nitrogen/Creatinine [Mass ratio] 19 mg/mg Normal 10 - 20 [facility] ED Clinical Summaryon 2024 ED Clinical Summary ED Clinical Summary [place] [id number] ED Clinical Summary Person Information Name: TRACIE SAMUELS [facility] Age: 34 Years : 1990 Sex: Female Language: Tuvaluan PCP: KATLIN FERNANDEZ DO Marital Status: Single Visit Id: Visit Reason: Knee pain-swelling; Fall; Diarrhea; L KIDNEY PAIN, KNEE PAIN Speciality: Acuity: 3 Enc Type: Emergency Med Service: Emergency Arrival: 07/22/2024 17:07:05 Discharge: 07/22/2024 22:20:36 LOS: 000 05:13 Checkin: 07/22/2024 17:07:05 Checkout: 07/22/2024 22:20:36 Dispo Type: Home (Routine DC) EVENTS: Event Name Event Status Request Date/Time Start Date/Time Complete Date/Time Arrive Complete 07/22/2024 17:07:05 07/22/2024 17:07:05 07/22/2024 17:07:05 Document Home Meds Request 07/22/2024 17:07:05 Triage Complete 07/22/2024 17:07:05 07/22/2024 17:18:03 07/22/2024 17:18:03 Registration Complete 07/22/2024 17:13:19 07/22/2024 17:13:19 07/22/2024 17:13:19 Reg Complete Request 07/22/2024 17:13:19 Reg Bed Request Complete 07/22/2024 17:13:19 07/22/2024 17:13:19 07/22/2024 17:13:19 Bed Assign Complete 07/22/2024 17:14:35 07/22/2024 17:14:35 07/22/2024 17:14:35 Dr Exam Complete 07/22/2024 17:14:35 07/22/2024 17:21:02 07/22/2024 17:21:02 RN Exam Complete 07/22/2024 17:14:35 07/22/2024 18:08:27 07/22/2024 18:08:27 Registration Request 07/22/2024 17:21:02 Dr Exam Complete 07/22/2024 17:21:36 07/22/2024 17:21:36 07/22/2024 17:21:36 Dr Exam Complete 07/22/2024 17:22:26 07/22/2024 17:22:26 07/22/2024 17:22:26 Pending Labs Complete 07/22/2024 17:35:58 07/22/2024 18:43:28 Lab Complete 07/22/2024 17:35:58 07/22/2024 18:27:52 Urine Collect Complete 07/22/2024 17:35:59 07/22/2024 18:27:52 X-Ray Complete 07/22/2024 17:35:59 07/22/2024 17:37:05 07/22/2024 18:01:03 Pending Labs Complete 07/22/2024 17:49:45 07/22/2024 17:49:45 07/22/2024 18:13:16 Lab Complete 07/22/2024 17:49:45 07/22/2024 17:49:45 07/22/2024 18:13:16 Wet Read Request 07/22/2024 18:01:03 CT Complete 07/22/2024 18:18:27 07/22/2024 18:47:04 07/22/2024 18:50:55 Meds Admin Cancel 07/22/2024 18:18:27 07/22/2024 18:20:35 Meds Admin Complete 07/22/2024 18:21:07 07/22/2024 18:37:38 Pending Labs Inlab 07/22/2024 18:43:28 07/22/2024 18:43:28 Lab Inlab 07/22/2024 18:43:28 07/22/2024 18:43:28 Pending Labs Complete 07/22/2024 18:57:57 07/22/2024 18:57:57 07/22/2024 18:58:00 Meds Admin Complete 07/22/2024 19:45:54 07/22/2024 20:00:12 Meds Admin Complete 07/22/2024 21:43:05 07/22/2024 21:53:03 Meds Admin Complete 07/22/2024 21:43:44 07/22/2024 21:53:03 Discharge Complete 07/22/2024 21:46:37 07/22/2024 22:20:41 07/22/2024 22:20:41 Transfer Complete 07/22/2024 22:20:41 07/22/2024 22:20:41 07/22/2024 22:20:41 ADDRESS: [address] [place] [address] [address] [facility] [id number] PHYS DOC NOTES: MEDICAL INFORMATION: Prescriptions Given: New Medications [facility], [address], [place] [id number], [phone] sulfamethoxazole-trimetho prim (Bactrim D.S. 800 mg-160 mg Tab) 1 Tablets By Mouth 2 times a day for 5 Days. Refills: 0. Medications to Continue Taking That Have Changed [facility], [address], [place] [id number], [phone] START: naproxen (naproxen 500 mg Tab) 1 Tablets By Mouth 2 times a day as needed Pain. Refills: 0. START: tamsulosin (Flomax 0.4 mg Cap) 1 Capsules By Mouth every day. Refills: 0. Other Medications START: naproxen (Naprosyn 500 mg Tab) 1 Tablets By Mouth 2 times a day. Refills: 0. START: naproxen (Naprosyn 500 mg Tab) 1 Tablets By Mouth 2 times a day as needed for pain. Refills: 0. START: naproxen (naproxen 375 mg Tab) 1 Tablets By Mouth every 12 hours. Refills: 0. START: tamsulosin (Flomax 0.4 mg Cap) 1 Capsules [...] By Mouth every day. Refills: 0. metformin (metfor (more content not included)... Normal [facility] ED Patient Summaryon 025 ED Patient Summary ED Patient Summary [place] [id number] Patient Discharge Instructions Person Information Name: TRACIE SAMUELS Age: 34 Years Arrival Date: 07/22/2024 17:07:05 Discharge Diagnosis: Acute UTI (urinary tract infection); Knee pain, right; Renal colic Primary Care Physician: KATLIN FERNANDEZ DO Provider Information Primary Provider: Kanu Kelly DO Advanced Assistant Therapy Aide:Treasure Burnette PA-C The exam and treatment you received in the Emergency Department were for an urgent problem and are not intended as complete care. It is important that you follow up with a doctor, nurse practitioner, or physician???s assistant therapy aide for ongoing care. If your symptoms become worse or you do not improve as expected and you are unable to reach your usual health care provider, you should return to the Emergency Department. We are available 24 hours a day. TRACIE SAMUELS has been given the following list of patient education materials, prescriptions and follow-up instructions: Follow-up Instructions: With: Address: When: Troy BOLIVAR [address] [place] [address], [address], [employer] [address] [address] Business (1) In 3 days 07/25/2024 Comments: Call to schedule a follow-up appointment with urology. Use the medications as prescribed. Return to the ED with any new or worsening symptoms. With: Address: When: KATLIN FERNANDEZ [address] [place] [id number] Business (1) In 3 days In the event that this physician does not participate in your insurance network, please consult with your insurance company to find a nearby participating provider. Patient Education Materials: Colic, [id number] A MESSAGE TO ALL PATIENTS REGARDING OPIOIDS PRESCRIPTION OPIOIDS: WHAT YOU NEED TO KNOW Prescription opioids can be used to help relieve hogwhazy-sl-[id number] pain and are often prescribed following a [...] as well, even when taken as directed: ??? Tolerance???meaning you might need to take more of the medication for the same pain relief ??? Physical dependence???meaning you have symptoms of withdrawal when a medication is stopped ??? Increased sensitivity to pain ??? Constipation ??? Nausea, vomiting, and dry mouth ??? Sleepiness and dizziness ??? Confusion ??? Depression ??? Low levels of testosterone that can result in lower sex drive, energy, and strength ??? Itching and sweating RISKS ARE GREATER WITH: ??? History of drug misuse, substance use disorder, or overdose ??? Mental health conditions (such as depression or anxiety) ??? Sleep apnea ??? Older age (65 years and older) ??? Avoid alcohol while taking prescription opioids. Also, unless specifically advised by your health care provider, medications to avoid include: ??? Benzodiazepines (such as Xanax or Valium) ??? Muscle relaxants (such as Soma or Flexeril) ??? Hypnotics (such as Ambien or Lunesta) ??? Other prescription opioids KNOW YOUR OPTIONS Talk to your health care provider about ways to manage your pain that don???t involve prescription opioids. Some of these options may actually work better and have fewer risks and side effects. Options may include: ??? Pain relievers such as acetaminophen, ibuprofen, and naproxen ??? Some medication that are also used for depression or seizures ??? Physical therapy and exercise ??? Cognitive behavioral therapy, a psychological, goal-directed approach, in which patients learn how to modify physical, behavioral, and emotional triggers of pain and stress. IF YOU ARE PRESCRIBED OPIOIDS FOR PAIN: ??? Never take opioids in greater amounts or more often than prescribed. ??? Follow up with your primary health care provider. o Work together to create a plan on how to manage your pain. o Talk about ways to help manage your pain that don???t involve prescription opioids. o Talk about any and all concerns and side effects. ??? Help prevent misuse and abuse o Never sell or share prescription opioids. o Never use another person???s prescription opioids. ??? Store prescription opioids in a secure place and out of reach of others (this may include visitors, children, friends, and family). ??? Safely dispose of unused prescription opioids: Find your community drug take-back program or your pharmacy (more content not included)... Normal [facility] Extra Blueon 07-22-2024 Tube Collected Plasma Yes Invalid Interpretation Code [facility] Comment on above: Performed By: #### 1 [id number] #### [facility] [address] [place] [address] HEMATOLOGYOrdered By: SYSTEM SYSTEM on 07-22-2024 Basophils/100 WBC (Bld) 0.4 % Normal 0.0 - 2.0 % [facility] Basophils/Leukocytes Auto (Bld) [Pure # fraction] 0.0 E9/L Normal 0.0 - 0.2 E9/L [facility] Eosinophils (Bld) [#/Vol] 0.2 E9/L Normal 0.0 - 0.5 E9/L [facility] Eosinophils/100 WBC (Bld) 1.9 % Normal 0.0 - 8.0 % [facility] Erythrocyte distribution width (RBC) [Ratio] 13.2 % Normal 10.9 - 14.2 % [facility] Hematocrit (Bld) [Volume fraction] 35.5 % Normal 34.0 - 46.0 % [facility] Hemoglobin (Bld) [Mass/Vol] 12.6 g/dL Normal 12.0 - 16.0 gm/dL [facility] Lymphocytes (Bld) [#/Vol] 3.3 E9/L Normal 1.0 - 4.0 E9/L [facility] Lymphocytes/100 WBC (Bld) 30.9 % Normal 14.0 - 50.0 % [facility] MCH (RBC) [Entitic mass] 31.3 pg Normal 27.0 - 34.0 pg [facility] MCHC (RBC) [Mass/Vol] 35.4 g/dL Normal 31.4 - 36.0 gm/dL [facility] MCV (RBC) [Entitic vol] 88.3 fL Normal 80.0 - 100.0 fL [facility] Monocytes (Bld) [#/Vol] 0.8 E9/L Normal 0.2 - 1.0 E9/L [facility] Monocytes/100 WBC (Bld) 7.0 % Normal 4.0 - 14.0 % [facility] Neutrophils (Bld) [#/Vol] 6.4 E9/L Normal 2.0 - 7.5 E9/L [facility] Neutrophils/100 WBC (Bld) 59.8 % Normal 36.0 - 75.0 % [facility] Platelet 264.0 E9/L Normal 150.0 - 500.0 E9/L [facility] Platelet mean volume (Bld) [Entitic vol] 6.8 fL Normal 6.4 - 10.8 fL [facility] RBC (Bld) [#/Vol] 4.0 E12/L Low 4.3 - 5.9 E12/L [facility] WBC corrected for nucl RBC Auto (Bld) [#/Vol] 10.8 E9/L Normal 4.0 - 11.0 E9/L [facility] Hep Func Panelon 07-22-2024 Albumin [Mass/Vol] 3.9 g/dL Normal 3.3-5.0 [facility] Comment on above: Performed By: #### 2 [id number] #### [facility] [address] [place] [address] Albumin/Globulin (S) [Mass conc ratio] 1.1 Normal 1.1-2.2 [facility] Comment on above: Performed By: #### 2 [id number] #### [facility] [address] [place] [address] ALP [Catalytic activity/Vol] 116 Int._Unit/L High 21-98 [facility] Comment on above: Performed By: #### 2 [id number] #### [facility] [address] [place] [address] ALT No additional P-5'-P [Catalytic activity/Vol] 13 Int._Unit/L Normal 6-46 [facility] Comment on above: Performed By: #### 2 [id number] #### [facility] [address] [place] [address] AST [Catalytic activity/Vol] 13 Int._Unit/L Normal 5-43 [facility] Comment on above: Performed By: #### 2 [id number] #### [facility] [address] [place] [address] Bilirubin [Mass/Vol] 0.3 mg/dL Normal 0.0-1.1 [facility] Comment on above: Performed By: #### 2 [id number] #### [facility] [address] [place] [address] Bilirubin.direct [Mass/Vol] 0.1 mg/dL Normal 0.0-0.4 [facility] Comment on above: Performed By: #### 2 [id number] #### [facility] [address] [place] [address] Bilirubin.indirect [Mass or moles/Vol] 0.2 mg/dL Normal 0.1-0.9 [facility] Comment on above: Performed By: #### 2 [id number] #### [facility] [address] [place] [address] Globulin (S) [Mass/Vol] 3.4 g/dL Normal 1.4-4.0 [facility] Comment on above: Performed By: #### 2 [id number] #### [facility] [address] [place] [address] Protein [Mass/Vol] 7.3 g/dL Normal 6.0-7.8 [facility] Comment on above: Performed By: #### 2 [id number] #### [facility] [address] [place] [address] Lipase Levelon 07-22-2024 Lipase [Catalytic activity/Vol] 29 U/L Normal 13-58 [facility] Comment on above: Performed By: #### 2 [id number] #### [facility] [address] [place] [address] SEROLOGYOrdered By: Tamica Chowdhury on 07-22-2024 HCG.beta subunit (U) [Moles/Vol] Negative Normal [facility] Sero U BetaHcg Qualon 07-22-2024 HCG.beta subunit (U) [Moles/Vol] Negative Normal [facility] Comment on above: Performed By: #### 2 [id number] #### [facility] [address] [place] [address] UA with Cult Rflxon 07-23-19 25 Bacteria Auto Ql (U) 1+ /HPF Abnormal Trace Fish [facility] Comment on above: Performed By: #### 4 [id number] #### [facility] [address] [place] [address] Bilirubin Ql (U) Negative Normal Negative [facility] Comment on above: Performed By: #### 4 [id number] #### [facility] [address] [place] [address] Clarity (U) Turbid Abnormal Clear [facility] Comment on above: Performed By: #### 4 [id number] #### [facility] [address] [place] [address] Color (U) Light-Yellow Normal Yellow [facility] Comment on above: Result Comment: Micr oscopic readings are only performed on those samples that meet specific criteria set forth by [facility]. Performed By: #### 4 [id number] #### [facility] [address] [place] [address] Epithelial cells.squamous Auto (Urine sed) [#/Area] >10 Invalid Interpretation Code [facility] Comment on above: Performed By: #### 4 [id number] #### [facility] [address] [place] [address] Glucose Ql (U) Negative Normal Negative [facility] Comment on above: Performed By: #### 4 [id number] #### [facility] [address] [place] [address] Hemoglobin Auto test strip (U) [Mass/Vol] 2+ mg/dL Abnormal Negative [facility] Comment on above: Performed By: #### 4 [id number] #### [facility] [address] [place] [address] Ketones Auto test strip Ql (U) Negative Normal Negative [facility] Comment on above: Performed By: #### 4 [id number] #### [facility] [address] [place] [address] Leukocyte esterase Auto test strip Ql (U) 250 Po/uL Abnormal Negative [facility] Comment on above: Performed By: #### 4 [id number] #### [facility] [address] [place] [address] Mucus Auto Ql (U) Trace Normal Negative [facility] Comment on above: Performed By: #### 4 [id number] #### [facility] [address] [place] [address] Nitrite Auto test strip Ql (U) Negative Normal Negative [facility] Comment on above: Performed By: #### 4 [id number] #### [facility] [address] [place] [address] pH (U) 5.5 [pH] Invalid Interpretation Code 5.0-9.0 [facility] Comment on above: Performed By: #### 4 [id number] #### [facility] [address] [place] [address] Protein Ql (U) Negative Normal Negative [facility] Comment on above: Performed By: #### 4 [id number] #### [facility] [address] [place] [address] RBC Ql (U) 4-20 Abnormal 0-3 [facility] Comment on above: Performed By: #### 4 [id number] #### [facility] [address] [place] [address] Specific gravity (U) [Rel density] 1.027 Invalid Interpretation Code 1.005-1.03 0 [facility] Comment on above: Performed By: #### 4 [id number] #### [facility] [address] [place] [address] Urobilinogen (U) [Mass/Vol] Negative Normal Negative [facility] Comment on above: Performed By: #### 4 [id number] #### [facility] [address] [place] [address] WBC Auto (Urine sed) [#/Area] >75 Abnormal 0-5 [facility] Comment on above: Performed By: #### 4 [id number] #### [facility] [address] [place] [address] Type of Urine collection method Clean Catch Normal [facility] Comment on above: Performed By: #### 4 [id number] #### [facility] [address] [place] [address] URINALYSISOrdered By: SYSTEM SYSTEM on 07-22-2024 Bacteria Auto Ql (U) 1+ /HPF Invalid Interpretation Code Trace/HPF [facility] UA Auto SS Bilirubin Ql (U) Negative Normal Negativemg /dL [facility] UA Auto SS Clarity (U) Turbid *ABN* (07/22/24 6:06 PM) Invalid Interpretation Code Clear [facility] UA Auto SS Color (U) Light-Yellow 1 (07/22/24 6:06 PM) Normal Yellow [facility] UA Auto SS Comment on above: Interpretive Data: M icroscopic readings are only performed on those samples that meet specific criteria set forth by [facility]. Epithelial cells.squamous Auto (Urine sed) [#/Area] >10 graded/HPF Invalid Interpretation Code [facility] UA Auto SS Glucose Ql (U) Negative Normal Negativemg /dL [facility] UA Auto SS Hemoglobin Auto test strip (U) [Mass/Vol] 2+ mg/dL Invalid Interpretation Code Negativemg /dL [facility] UA Auto SS Ketones Auto test strip Ql (U) Negative Normal Negativemg /dL [facility] UA Auto SS Leukocyte esterase Auto test strip Ql (U) 250 Po/uL Po/uL Invalid Interpretation Code NegativeLe u/uL [facility] UA Auto SS Mucus Auto Ql (U) Trace graded/LPF Normal Negati vegr aded/LPF [facility] UA Auto SS Nitrite Auto test strip Ql (U) Negative Normal Negativemg /dL [facility] UA Auto SS pH (U) 5.5 *NA* (07/22/24 6:06 PM) Invalid Interpretation Code 5.0 - 9.0 [facility] UA Auto SS Protein Ql (U) Negative Normal Negativemg /dL [facility] UA Auto SS RBC Ql (U) 4-20 graded/HPF Invalid Interpretation Code 0-3graded/ HPF [facility] UA Auto SS Specific gravity (U) [Rel density] 1.027 *NA* (07/22/24 6:06 PM) Invalid Interpretation Code 1.005 - 1.030 [facility] UA Auto SS Urobilinogen (U) [Mass/Vol] Negative Normal Negativemg /dL [facility] UA Auto SS WBC Auto (Urine sed) [#/Area] >75 graded/HPF Invalid Interpretation Code 0-5graded/ HPF [facility] UA Auto SS URINALYSISOrdered By: Treasure Burnette on 07-22-2024 UA Spec Desc Clean Catch (07/22/24 6:06 PM) Normal [facility] UA Auto SS eGFRon 07-22-2024 GFR/1.73 sq M.predicted MDRD (S/P/Bld) [Vol rate/Area] 98 mL/min/1.73 m2 Normal >=59 [facility] Comment on above: Performed By: #### 1 [id number] #### [facility] [address] [place] [address] HCG ( test) IA.rickyi d Ql (U)Ordered By: Olga Fernandez on 05-22-2024 HCG ( test) Ql (U) Urine human chorionic gonadotropin (hCG) detection by immunoassay [facility] HCG,Urineon 05-22-2024 Beta HCG ( test) Ql (U) Negative Normal [facility] Comment on above: Result Comment: PERF ORMED BY: [place] [address] PATHOLOGIST LICENSED MASSAGE PRACTITIONER JOSE ALEJANDRO WEEMS M.D. Performed By: #### C JUAN, [facility] [place], ADDONUAPLUS #### [address] 05-22-2024 L ----- Specimen: [id number] Received: 05/22/24 Status: RC Mcbride Num: [id number] Spec Type: Surgical Subm Dr: Olga Fernandez, DO Tissues: A Small Intestine - Biopsy/Polyp (SMALL BOWEL BX) B Gastric Biopsy (GASTRIC BX) C Esophagus Biopsy (ESOPHAGUS BX) D Esophagus Biopsy (ESOPHAGUS LESION AT 25) E Colon Biopsy (RIGHT COLON BX) F Colon Biopsy (LEFT COLON BX) Procedures: , Gross/Micro L4/6 Age/ Patient Sex Location Account Attending Physician Tracie Samuels 34/F [id number] Olga Fernandez DO SPEC NUM: [id number] RECD: 05/22/24-1200 STATUS: RC MCBRIDE NUM: [id number] CHIO: 05/22/24-[address] [facility] [address]: Olga Fernandez DO ENTERED: 05/22/24-1201 DR: JUAN TYPE: Surgical DEPT: S ENTERED BY: [id number] RECV BY: [id number] ORDERED: HE/12, Gross/Micro L4/6 ORDERED: HE/12, Gross/Micro L4/6 Pathological Diagnosis A. Small bowel, biopsy: - Small bowel mucosa with no significant histopathology. - No evidence of celiac disease identified. B. Stomach, biopsy: - Antral and oxyntic-type gastric mucosa with reactive gastropathy. - No Helicobacter pylori microorganisms identified with routine H E stain. C. Esophagus, biopsy: - Gastroesophageal junctional mucosa consistent with reflux esophagitis (1 eosinophil/HPF). - No evidence of intestinal metaplasia/Elizabeth's type mucosa identified. - See Comment. D. Esophagus, lesion, biopsy: - Squamous papilloma. - No evidence of dysplasia or malignancy identified. E. Colon, right, random biopsy: - Benign colonic mucosa with lymphoid aggregates. Specimen: [id number] Received: 05/22/24 Status: RC Mcbride Num: [id number] Spec Type: Surgical Subm Dr: Olga Fernandez, DO Tissues: A Small Intestine - Biopsy/Polyp (SMALL BOWEL BX) B Gastric Biopsy (GASTRIC BX) C Esophagus Biopsy (ESOPHAGUS BX) D Esophagus Biopsy (ESOPHAGUS LESION AT 25) E Colon Biopsy (RIGHT COLON BX) F Colon Biopsy (LEFT COLON BX) Procedures: /, Gross/Micro L4/6 Patient: Tracie Samuels [id number] (Continued) Specimen: [id number] Received: 05/22/24 (Continued) Pathological Diagnosis (Continued) Signed (signature on file) Ant Macias MD 05/23/24 1256 Specimen: [id number] Received: 05/22/24-1199 Status: RC Mcbride Num: [id number] Spec Type: Surgical Subm Dr: Olga Fernandez, Tissues: A Small Intestine - Biopsy/Polyp (SMALL BOWEL BX) B Gastric Biopsy (GASTRIC BX) C Esophagus Biopsy (ESOPHAGUS BX) D Esophagus Biopsy (ESOPHAGUS LESION AT 25) E Colon Biopsy (RIGHT COLON BX) F Colon Biopsy (LEFT COLON BX) Procedures: , Gross/Micro L4/6 Patient: Tracie Samuels [id number] (Continued) Specimen: [id number] Received: 05/22/24-1199 (Continued) Pathological Diagnosis (Continued) - No evidence of chronic, active or microscopic colitis identified. F. Colon, left, random biopsy: - Benign colonic mucosa with lymphoid aggregates. - No evidence of chronic, active or microscopic colitis identified. Comment: Recommend clinical, endoscopic and pathologic correlation, and proximal esophagus biopsy if clinically indicated. Clinical Information Vomiting, diarrhea. Part A rule out celiac disease, Part B rule out H. pylori, Part C check for esophagitis, Part E and Part F rule out microscopic colitis Gross Description Part A is received in formalin labeled with the patients name, date of , and small bowel BX's are two jaquez-jiménez, focally erythematous, friable, 0.3 cm each in greatest dimension tissue bits. The specimen is entirely submitted in a single cassette. (1, ns, [id number] A) JG Part B is received in formalin labeled with the patients name, date of , and gastric BX's are two jaquez-jiménez, focally erythematous, friable, 0.2 and 0.4 cm in greatest dimension tissue bits. The specimen is entirely submitted in a single cassette. (1, ns, [id number] B) JG Part C is received in formalin labeled with the patients name, date of , and esophagus BX is a pale jiménez, focally (more content not included)... Normal [facility] VT gastric emptying studyon 05-21-2024 VT gastric emptying study [facility] [place] [address] Nuclear Medicine Report Signed Patient: Tracie Samuels MR#: [id number] 640 : 1990 Acct:[id number] Age/Sex: 34 / F ADM Date: 05/21/24 Loc: [place] Room: Type: [facility] Attending Dr: Olga Fernandez DO Copies to: DO [place] Jeffrey S DO Ordering Provider: Olga Fernandez DO Date of Service: 05/21/24 VT/VT gastric emptying study: K92.0 - Hematemesis Nuclear medicine gastric emptying study TECHNIQUE: Patient ingested eggs containing 1.1 mCi of technetium 99m labeled sulfur colloid HISTORY: Hematemesis. Diarrhea. Stomach pain. Cholecystectomy. COMPARISON: None The 30 minute percent retention is 78%. The one-hour percent retention at 62%. The 2 hour percent retention is 56%. The three-hour percent retention is 25%. The 4% retention is 1%. VT/VT gastric emptying study IMPRESSION: Adequate gastric emptying. Impression dictated by: Quique Lai M.D.05/21/2024 3:21 PM Dictation Location: [place] [address] Transcribed By: [facility] 05/21/24 1521 Dictated By: Quique Lai DO 05/21/24 1515 Signed By: 05/21/24 1521 Normal [facility] CT abdomen pelvis w conon CT abdomen pelvis w con [facility] [place] [address] [place], [place] [id number] CT Scan Report Signed Patient: Tracie Samuels MR#: [id number] 640 : 1990 Acct:[id number] Age/Sex: 33 / F ADM Date: 01/19/24 Loc: ER Room: Type: [facility] ER Attending Dr: Copies to: Flores Rogers APRN Ordering Provider: Flores Rogers APRN Date of Service: 01/19/24 CT/CT abdomen pelvis w con: pain CT ABDOMEN AND PELVIS WITH INTRAVENOUS CONTRAST: CLINICAL HISTORY: Vomiting abdominal pain COMPARISON: CT abdomen and pelvis 10/04/2023 TECHNIQUE: Spiral images were obtained through the abdomen and pelvis following the administration of intravenous contrast. This CT exam was performed using one or more following dose reduction techniques: Automated exposure control, adjustment of the mA and/or kV according to patient size, or use of iterative reconstruction technique. FINDINGS: Lung Bases: [No acute findings.] Organs:Gallbladder has been removed. Liver portal vein spleen pancreas adrenal glands aorta and right kidney appears unremarkable. Punctate stone left kidney. GI: Stomach is grossly unremarkable. Small bowel appears nondilated. Appendix is normal. No acute colonic abnormality.[ Pelvis:[No adnexal mass. Uterus and urinary bladder appear unremarkable.] Peritoneum/Retroperitoneu m:No free air or free fluid or lymphadenopathy.[ Abd wall/Bones:Abdominal wall demonstrates no acute findings. Osseous structures demonstrate degenerative change.[ CT/CT abdomen pelvis w con IMPRESSION: No acute process. Punctate left nephrolithiasis. Impression dictated by: Dale Huerta Jr., D.O.01/19/2024 6:09 PM Dictation Location: [facility] Transcribed By: [facility] 01/19/241808 Dictated By: Dale Huerta Jr, DO 01/19/241800 Signed By: 01/19/241808 Normal [facility] Complete Blood Count Auto Di ffon 01-19-2024 Basophils (Bld) [#/Vol] 0.1 10*3/uL Normal 0.0-0.2 [facility] Comment on above: Result Comment: PERF ORMED BY: [place] [address] PATHOLOGIST LICENSED MASSAGE PRACTITIONER JOSE ALEJANDRO WEEMS M.D. Performed By: #### L IPASE, CMP, CBC #### [address] Basophils/100 WBC (Bld) 0.9 % Normal . [facility] Comment on above: Performed By: #### L IPASE, CMP, CBC #### [address] Eosinophils (Bld) [#/Vol] 0.1 10*3/uL Normal 0.0-0.45 [facility] Comment on above: Performed By: #### L IPASE, CMP, CBC #### [address] Eosinophils/100 WBC (Bld) 0.5 % Normal . [facility] Comment on above: Performed By: #### L IPASE, CMP, CBC #### [address] Erythrocyte distribution width (RBC) [Ratio] 12.5 % Normal 11.9-15.3 [facility] Comment on above: Performed By: #### L IPASE, CMP, CBC #### [address] Hematocrit (Bld) [Volume fraction] 39.9 % Normal 34.0-46.4 [facility] Comment on above: Performed By: #### L IPASE, CMP, CBC #### [address] Hemoglobin (Bld) [Mass/Vol] 13.2 g/dL Normal 11.8-15.4 [facility] Comment on above: Performed By: #### L IPASE, CMP, CBC #### [place] [address] [place] Lymphocytes (Bld) [#/Vol] 3.5 10*3/uL Normal 1.00-4.8 [facility] Comment on above: Performed By: #### L IPASE, CMP, CBC #### [address] Lymphocytes/100 WBC (Bld) 23.1 % Normal . [facility] Comment on above: Performed By: #### L IPASE, CMP, CBC #### [address] MCH (RBC) [Entitic mass] 29.9 pg Normal 24.7-34.3 [facility] Comment on above: Performed By: #### L IPASE, CMP, CBC #### [address] MCV (RBC) [Entitic vol] 90.2 fL Normal 80-100 [facility] Comment on above: Performed By: #### L IPASE, CMP, CBC #### [address] Mean Corpuscular HGB Conc 33.1 g/dL Normal 32.0-35.0 [facility] Comment on above: Performed By: #### L IPASE, CMP, CBC #### [address] Monocytes (Bld) [#/Vol] 0.8 10*3/uL Normal 0.0-0.8 [facility] Comment on above: Performed By: #### L IPASE, CMP, CBC #### [address] Monocytes/100 WBC (Bld) 15.60 % Normal 0.00-20.00 [facility] Comment on above: Performed By: #### L IPASE, CMP, CBC #### [address] Monocytes/100 WBC (Bld) 5.3 % Normal . [facility] Comment on above: Performed By: #### L IPASE, CMP, CBC #### [address] Neutrophils (Bld) [#/Vol] 10.6 10*3/uL High 1.8-7.7 [facility] Comment on above: Performed By: #### L IPASE, CMP, CBC #### [address] Neutrophils/100 WBC (Bld) 70.2 % Normal . [facility] Comment on above: Performed By: #### L IPASE, CMP, CBC #### [address] NRBC% 0.1 /100{WBC} Normal 0-0.5 [facility] Comment on above: Performed By: #### L IPASE, CMP, CBC #### [address] Platelet mean volume (Bld) [Entitic vol] 7.3 fL Normal 6.3-10.7 [facility] Comment on above: Performed By: #### L IPASE, CMP, CBC #### [address] Platelets (Bld) [#/Vol] 289 10*3/uL Normal 150-450 [facility] Comment on above: Performed By: #### L IPASE, CMP, CBC #### [address] RBC (Bld) [#/Vol] 4.42 10*6/uL Normal 3.60-5.00 [facility] Comment on above: Performed By: #### L IPASE, CMP, CBC #### [address] WBC (Bld) [#/Vol] 15.2 10*3/uL High 3.8-11.6 [facility] Comment on above: Performed By: #### L IPASE, CMP, CBC #### [address] Comprehensive Metabolic Pane isrrael 01-19-2024 Albumin [Mass/Vol] 4.2 g/dL Normal 3.5-5.7 [facility] Comment on above: Performed By: #### C UU, UHCG, ADDONUAPLUS #### [address] Albumin/Globulin [Mass ratio] 1.2 {ratio} Normal [facility] Comment on above: Performed By: #### C UU, UHCG, ADDONUAPLUS #### [address] ALP [Catalytic activity/Vol] 104 U/L Normal 34-104 [facility] Comment on above: Performed By: #### C UU, UHCG, ADDONUAPLUS #### [address] ALT [Catalytic activity/Vol] 19 U/L Normal 7-52 [facility] Comment on above: Performed By: #### C UU, UHCG, ADDONUAPLUS #### [address] Anion gap [Moles/Vol] 12.0 mmol/L Normal 6.0-15.0 [facility] Comment on above: Performed By: #### C UU, UHCG, ADDONUAPLUS #### [address] AST [Catalytic activity/Vol] 16 U/L Normal 13-39 [facility] Comment on above: Performed By: #### C UU, UHCG, ADDONUAPLUS #### [address] Bilirubin [Mass/Vol] 0.5 mg/dL Normal 0.3-1.0 [facility] Comment on above: Performed By: #### C UU, UHCG, ADDONUAPLUS #### [address] Calcium [Mass/Vol] 8.9 mg/dL Normal 8.6-10.3 [facility] Comment on above: Performed By: #### C UU, UHCG, ADDONUAPLUS #### [facility] [address] Chloride [Moles/Vol] 103 mmol/L Normal 98-107 [facility] Comment on above: Performed By: #### C UU, UHCG, ADDONUAPLUS #### [facility] [address] CO2 [Moles/Vol] 26.9 mmol/L Normal 21.0-31.0 [facility] Comment on above: Performed By: #### C UU, UHCG, ADDONUAPLUS #### [address] Creatinine [Mass/Vol] 0.70 mg/dL Normal 0.60-1.20 [facility] Comment on above: Performed By: #### C UU, UHCG, ADDONUAPLUS #### [place] [address] [place] Creatinine Clr Calc Pharmacy 117.05 Normal [facility] Comment on above: Performed By: #### C UU, UHCG, ADDONUAPLUS #### [place] [address] [place] GFR/1.73 sq M.predicted MDRD (S/P/Bld) [Vol rate/Area] mL/min/{1.73_m2} Normal [facility] Comment on above: Performed By: #### C UU, UHCG, ADDONUAPLUS #### [place] [address] [place] Globulin (S) [Mass/Vol] 3.6 g/dL Normal [facility] Comment on above: Performed By: #### C UU, UHCG, ADDONUAPLUS #### [place] [address] [place] Glucose [Mass/Vol] 97 mg/dL Normal 70-100 [facility] Comment on above: Result Comment: [place] Glucose Reference Range is dependent on time and content of last meal. Glucose of more than 200 mg/dL in a nonstressed, ambulatory subject supports the diagnosis of Diabetes Mellitus. ADA recommended reference range Performed By: #### C UU, UHCG, ADDONUAPLUS #### [address] Potassium [Moles/Vol] 3.9 mmol/L Normal 3.5-5.1 [facility] Comment on above: Performed By: #### C UU, UHCG, ADDONUAPLUS #### [address] Protein [Mass/Vol] 7.8 g/dL Normal 6.4-8.9 [facility] Comment on above: Performed By: #### C UU, UHCG, ADDONUAPLUS #### [address] Sodium [Moles/Vol] 138 mmol/L Normal 136-145 [facility] Comment on above: Performed By: #### C UU, UHCG, ADDONUAPLUS #### [address] Urea nitrogen [Mass/Vol] 13 mg/dL Normal 7-25 [facility] Comment on above: Performed By: #### C UU, UHCG, ADDONUAPLUS #### [address] Dipstick and Microscopicon 1 03-20-2023 Appearance (U) Cloudy Critically abnormal Clear [facility] Comment on above: Order Comment: Name Collection Type:: Clean-Voided Midstream Performed By: #### C UU, UHCG, ADDONUAPLUS #### [address] Bacteria,Urine Rare Normal None Seen [facility] Comment on above: Order Comment: Name Collection Type:: Clean-Voided Midstream Performed By: #### C UU, UHCG, ADDONUAPLUS #### [address] Bilirubin,Urine Negative Normal Negative [facility] Comment on above: Order Comment: Name Collection Type:: Clean-Voided Midstream Performed By: #### C UU, UHCG, ADDONUAPLUS #### [address] Color (U) Yellow Normal Yellow [facility] Comment on above: Order Comment: Name Collection Type:: Clean-Voided Midstream Performed By: #### C UU, UHCG, ADDONUAPLUS #### [address] Glucose Ql (U) Normal Normal Normal [facility] Comment on above: Order Comment: Name Collection Type:: Clean-Voided Midstream Performed By: #### C UU, UHCG, ADDONUAPLUS #### [place] [address] [place] Hyaline Casts,Urine None Normal 0-8 [facility] Comment on above: Order Comment: Name Collection Type:: Clean-Voided Midstream Performed By: #### C UU, UHCG, ADDONUAPLUS #### [address] Ketones Ql (U) Negative Normal Negative [facility] Comment on above: Order Comment: Name Collection Type:: Clean-Voided Midstream Performed By: #### C UU, UHCG, ADDONUAPLUS #### [address] Leukocyte esterase Test strip Ql (U) 2+ High Negative [facility] Comment on above: Order Comment: Name Collection Type:: Clean-Voided Midstream Performed By: #### C UU, UHCG, ADDONUAPLUS #### [place] [address] [place] Mucus,Urine 1+ Critically abnormal [facility] Comment on above: Order Comment: Name Collection Type:: Clean-Voided Midstream Performed By: #### C UU, UHCG, ADDONUAPLUS #### [place] [address] [place] Nitrite,Urine Negative Normal Negative [facility] Comment on above: Order Comment: Name Collection Type:: Clean-Voided Midstream Performed By: #### C UU, UHCG, ADDONUAPLUS #### [address] Occult Blood,Urine 1+ High Negative [facility] Comment on above: Order Comment: Name Collection Type:: Clean-Voided Midstream Performed By: #### C UU, UHCG, ADDONUAPLUS #### [address] pH (U) 7.0 [pH] Normal 5.0-9.0 [facility] Comment on above: Order Comment: Name Collection Type:: Clean-Voided Midstream Performed By: #### C UU, UHCG, ADDONUAPLUS #### [address] Protein (U) [Mass/Vol] 20 mg/dL High Negative [facility] Comment on above: Order Comment: Name Collection Type:: Clean-Voided Midstream Performed By: #### C UU, UHCG, ADDONUAPLUS #### [address] RBC,Urine 10 [HPF] High 0-4 [facility] Comment on above: Order Comment: Name Collection Type:: Clean-Voided Midstream Performed By: #### C UU, UHCG, ADDONUAPLUS #### [address] Specificy [place],Urine 1.026 Normal 1.001-1.03 0 [facility] Comment on above: Order Comment: Name Collection Type:: Clean-Voided Midstream Performed By: #### C UU, UHCG, ADDONUAPLUS #### [place] [address] [place] Squamous Epithelial Cell,Urine 10 [HPF] High 0-2 [facility] Comment on above: Order Comment: Name Collection Type:: Clean-Voided Midstream Performed By: #### C UU, UHCG, ADDONUAPLUS #### [address] [place] [address] [place] Urobilinogen,Urine Normal Normal Normal [facility] Comment on above: Order Comment: Name Collection Type:: Clean-Voided Midstream Performed By: #### C UU, UHCG, ADDONUAPLUS #### [address] WBC,Urine 20 [HPF] High 0-4 [facility] Comment on above: Order Comment: Name Collection Type:: Clean-Voided Midstream Performed By: #### C UU, UHCG, ADDONUAPLUS #### [address] HCG,Urineon 01-19-2024 Beta HCG ( test) Ql (U) Negative Normal [facility] Comment on above: Order Comment: Name Collection Type:: Clean-Voided Midstream Result Comment: PERF ORMED BY: [place] [address] PATHOLOGIST LICENSED MASSAGE PRACTITIONER JOSE ALEJANDRO WEEMS M.D. Performed By: #### A DDONUAPLUS, CUU, UHCG #### [address] Lipaseon 01-19-2024 Lipase [Catalytic activity/Vol] 15.0 U/L Normal 11.0-82.0 [facility] Comment on above: Result Comment: PERF ORMED BY: [place] [address] PATHOLOGIST LICENSED MASSAGE PRACTITIONER JOSE ALEJANDRO WEEMS M.D. Performed By: #### C UU, UHCG, ADDONUAPLUS #### [address] Urine Cultureon 01-19-2024 Bacteria identified Cx Nom (U) ORGANISM: Strep agalactiae - (group b) (O:STRAGA) [place] Count 25,000 PERFORMED BY: [place] [address] PATHOLOGIST LICENSED MASSAGE PRACTITIONER JOSE ALEJANDRO WEEMS M.D. Normal [facility] Comment on above: Performed By: #### A ELAINE, EZEQUIEL, [facility] [place] #### [facility] [address] Laboratory - Cytologyon 12-28 Hand Profiler Cyto stain Nom (Cvx/Vag) [ID] Comment [facility] Comment on above: Ceci Rice, Cyto technologist (ASCP) Cytology report Cyto stain Doc (Cvx/Vag) Comment [facility] Comment on above: NEGATIVE FOR INTRAEP ITHELIAL LESION OR MALIGNANCY. Cytology report Cyto stain.thin prep Doc (Cvx/Vag) Comment [facility] Comment on above: This liquid based Th inPrep(R) pap test was screened with the use of an image guided system. Statement of adequacy Cyto stain (Cvx/Vag) [Interp] Comment [facility] Comment on above: Satisfactory for jimmie luation. No endocervical component is identified. Laboratory - Microbiology an d Antimicrobial susceptibilityon 01-17-2024 HPV 16+18+31+33+35+39+45+5 1+52+56+58+59+66+68 DNA Probe+sig amp Ql (Cvx) Negative Negative [facility] Comment on above: This nucleic acid am plification test detects fourteen high- risk HPV types (16,18,31,33,35,39,45,51,52,56,58,59,66,68) without differentiation. Microscopic observation Other stain Nom (Unsp spec) . [facility] No Panel Informationon 01-16 Diagnosis ICD code [Identifier] Comment [facility] Comment on above: Z12.4 Z11.51 Note: Comment [facility] Comment on above: The Pap smear is a s creening test designed to aid in the detection of premalignant and malignant conditions of the uterine cervix. It is not a diagnostic procedure and should not be used as the sole means of detecting cervical cancer. Both false-positive and false-negative reports do occur. Performed at: - [address] [id number] Recapper: Genny Stockton MD, Phone: [phone] Performed at: - [address] [id number] Recapper: Genny Stockton MD, Phone: [phone] Specimen Comment: No. of containers..01 ThinPrep Vial [facility] Cult,Urineon 10-28-2023 Cult,Urine Specimen Description .CLEAN CATCH URINE Special Requests Site: Urine Culture UROGENITAL ANNA 10 to 50,000 CFU/ML STREPTOCOCCI, BETA HEMOLYTIC GROUP B 10 to 50,000 CFU/ML INCLUDED IN THE ABOVE Report Status FINAL 10/28/2023 Normal [facility] Comment on above: Performed By: #### U #### [facility] [address] [place] [address] Recapper: Enrico Henry MD BMPon 10-27-2023 Anion gap [Moles/Vol] 10 mmol/L 9 - 16 mmol/L [facility] [employer] Calcium [Mass/Vol] 8.8 mg/dL 8.6 - 10. 4 mg/dL [facility] Digital H2O [facility] Chloride [Moles/Vol] 107 mmol/L 98 - 10 7 mmol/L [facility] [employer] CO2 [Moles/Vol] 22 mmol/L 20 - 31 mmol/L [facility] Creatinine [Mass/Vol] 0.8 mg/dL 0.50 - 0.90 mg/dL [facility] Jayla [place] Rate - [facility] Comment on above: These results are not intended for use [...] following therapy that affects renal tubular secretion. Glucose [Mass/Vol] 95 mg/dL 74 - 99 mg/dL [facility] Potassium [Moles/Vol] 4.0 mmol/L 3.7 - 5.3 mmol/L [facility] Sodium [Moles/Vol] 139 mmol/L 136 - 145 mmol/L [facility] Urea nitrogen [Mass/Vol] 15 mg/dL 6 - 20 mg/dL [facility] Digital H2O [facility] Basic Metabolic Profon 10-26 Anion gap [Moles/Vol] 10 mmol/L Normal 9-16 [facility] Comment on above: Performed By: #### C DP, HCG, BMP #### [facility] [employer] [address] [place] [address] Recapper: Enrico Henry MD Calcium [Mass/Vol] 8.8 mg/dL Normal 8.6-10.4 [facility] Comment on above: Performed By: #### C DP, HCG, BMP #### [facility] [employer] [address] [place] [address] Recapper: Enrico Henry MD Chloride [Moles/Vol] 107 mmol/L Normal 98-107 [facility] Comment on above: Performed By: #### C DP, HCG, BMP #### [facility] [employer] [address] [place] [address] Recapper: Enrico Henry MD CO2 [Moles/Vol] 22 mmol/L Normal 20-31 [facility] Comment on above: Performed By: #### C DP, HCG, BMP #### [facility] [employer] [address] [place] [address] Recapper: Enrico Henry MD Creatinine [Mass/Vol] 0.8 mg/dL Normal 0.50-0.90 [facility] Comment on above: Performed By: #### C DP, HCG, BMP #### [facility] [employer] [address] [place] [address] Recapper: Enrico Henry MD GFR/1.73 sq M.predicted among non-blacks MDRD (S/P/Bld) [Vol rate/Area] mL/min/{1.73_m2} Normal >60 [facility] Comment on above: Result Comment: These results [...] By: #### C DP, HCG, BMP #### [facility] [address] [place] [address] Recapper: Enrico Henry MD Glucose [Mass/Vol] 95 mg/dL Normal 74-99 [facility] Comment on above: Performed By: #### C DP, HCG, BMP #### [facility] [address] [place] [address] Recapper: Enrico Henry MD Potassium [Moles/Vol] 4.0 mmol/L Normal 3.7-5.3 [facility] Comment on above: Performed By: #### C DP, HCG, BMP #### [facility] [address] [place] [address] Recapper: Enrico Henry MD Sodium [Moles/Vol] 139 mmol/L Normal 136-145 [facility] Comment on above: Performed By: #### C DP, HCG, BMP #### [facility] [address] [place] [address] Recapper: Enrico Henry MD Urea nitrogen [Mass/Vol] 15 mg/dL Normal 6-20 [facility] Comment on above: Performed By: #### C DP, HCG, BMP #### [employer] [address] [place] [address] Recapper: Enrico Henry MD CBC with Auto Differentialon 10-27-2023 Basophils (Bld) [#/Vol] 0.06 10*3/uL [facility] [employer] Basophils/100 WBC (Bld) 1 % 0 - 2 % [facility] Eosinophils (Bld) [#/Vol] 0.14 10*3/uL [facility] [employer] Eosinophils/100 WBC (Bld) 1 % 1 - 4 % [facility] Erythrocyte distribution width (RBC) [Ratio] 13.1 % 11.8 - 14.4 % [facility] Hematocrit (Bld) [Volume fraction] 40.6 % 36.3 - 47.1 % [facility] Hemoglobin (Bld) [Mass/Vol] 13.0 g/dL 11.9 - 15.1 g/dL [facility] Immature granulocytes (Bld) [#/Vol] 0.07 10*3/uL [facility] Immature granulocytes/100 WBC (Bld) 1 % High [address] [facility] Interpretation and review of laboratory results Abnormal [facility] Lymphocytes/100 WBC (Bld) 26 % 24 - 43 % [facility] Lymphocytes/100 WBC (Bld) 3.30 % [facility] MCH (RBC) [Entitic mass] 29.7 pg 25.2 - 33.[address] [facility] MCHC (RBC) [Mass/Vol] 32.0 g/dL 28.4 - 34.8 g/dL [facility] MCV (RBC) [Entitic vol] 92.7 fL 82.6 - 102.[address] [facility] Monocytes/100 WBC (Bld) 6 % 3 - 12 % [facility] Monocytes/100 WBC (Bld) 0.73 % [facility] Neutrophils/100 WBC (Bld) 65 % 36 - 65 % [facility] Nucleated RBC/100 WBC (Bld) [Ratio] 0.0 % 0.0 per [address] [facility] Platelet mean volume (Bld) [Entitic vol] 9.0 fL 8.1 - 13.[address] [facility] Platelets (Bld) [#/Vol] 251 10*3/uL [facility] RBC (Bld) [#/Vol] 4.38 10*6/uL 3.95 - 5.11 m/uL [facility] Segmented neutrophils/100 WBC (Bld) 8.46 % High [facility] WBC other (Bld) [#/Vol] 12.8 High [facility] CBC with Diffon 10-27-2023 Abs. Basophil 0.06 k/uL Normal 0.00-0.20 [facility] Comment on above: Performed By: #### C DP, HCG, BMP #### [place] [address] Recapper: Enrico Henry MD Abs.Imm.Granulocyte 0.07 k/uL Normal 0.00-0.30 [facility] Comment on above: Performed By: #### C DP, HCG, BMP #### [place] [address] Recapper: Enrico Henry MD Abs.Neutrophil (Seg) 8.46 k/uL High 1.50-8.10 [facility] Comment on above: Performed By: #### C DP, HCG, BMP #### [place] [address] Recapper: Enrico Henry MD Basophils/100 WBC (Bld) 1 % Normal 0-2 [facility] Comment on above: Performed By: #### C DP, HCG, BMP #### [place] [address] Recapper: Enrico Henry MD Eosinophils (Bld) [#/Vol] 0.14 10*3/uL Normal 0.00-0.44 [facility] Comment on above: Performed By: #### C DP, HCG, BMP #### [place] [address] Recapper: Enrico Henry MD Eosinophils/100 WBC (Bld) 1 % Normal 1-4 [facility] Comment on above: Performed By: #### C DP, HCG, BMP #### [place] [address] Recapper: Enrico Henry MD Erythrocyte distribution width (RBC) [Ratio] 13.1 % Normal 11.8-14.4 [facility] Comment on above: Performed By: #### C DP, HCG, BMP #### [facility] [employer] [address] [place] [address] Recapper: Enrico Henry MD Hematocrit (Bld) [Volume fraction] 40.6 % Normal 36.3-47.1 [facility] Comment on above: Performed By: #### C DP, HCG, BMP #### [facility] [employer] [address] [place] [address] Recapper: Enrico Henry MD Hemoglobin (Bld) [Mass/Vol] 13.0 g/dL Normal 11.9-15.1 [facility] Comment on above: Performed By: #### C DP, HCG, BMP #### [facility] [employer] [address] [place] [address] Recapper: Enrico Henry MD Immature granulocytes/100 WBC (Bld) 1 % High 0 [facility] Comment on above: Performed By: #### C DP, HCG, BMP #### [facility] [employer] [address] [place] [address] Recapper: Enrico Henry MD Lymphocytes (Bld) [#/Vol] 3.30 10*3/uL Normal 1.10-3.70 [facility] Comment on above: Performed By: #### C DP, HCG, BMP #### [facility] [employer] [address] [place] [address] Recapper: Enrico Henry MD Lymphocytes/100 WBC (Bld) 26 % Normal 24-43 [facility] Comment on above: Performed By: #### C DP, HCG, BMP #### [facility] [address] [place] [address] Recapper: Enrico Henry MD MCH (RBC) [Entitic mass] 29.7 pg Normal 25.2-33.5 [facility] Comment on above: Performed By: #### C DP, HCG, BMP #### [address] [address] Recapper: Enrico Henry MD MCHC (RBC) [Mass/Vol] 32.0 g/dL Normal 28.4-34.8 [facility] Comment on above: Performed By: #### C DP, HCG, BMP #### [address] [address] Recapper: Enrico Henry MD MCV (RBC) [Entitic vol] 92.7 fL Normal 82.6-102.9 [facility] Comment on above: Performed By: #### C DP, HCG, BMP #### [address] [address] Recapper: Enrico Henry MD Monocytes (Bld) [#/Vol] 0.73 10*3/uL Normal 0.10-1.20 [facility] Comment on above: Performed By: #### C DP, HCG, BMP #### [address] [address] Recapper: Enrico Henry MD Monocytes/100 WBC (Bld) 6 % Normal 3-12 [facility] Comment on above: Performed By: #### C DP, HCG, BMP #### [address] [address] Recapper: Enrico Henry MD Neutrophil (Seg) 65 % Normal 36-65 [facility] Comment on above: Performed By: #### C DP, HCG, BMP #### [address] [address] Recapper: Enrico Henry MD NRBC Automated 0.0 per 100 WBC Normal 0.0 [facility] Comment on above: Performed By: #### C DP, HCG, BMP #### [facility] [employer] [address] [place] [address] Recapper: Enrico Henry MD Platelet mean volume (Bld) [Entitic vol] 9.0 fL Normal 8.1-13.5 [facility] Comment on above: Performed By: #### C DP, HCG, BMP #### [facility] [employer] [address] [place] [address] Recapper: Enrico Henry MD Platelets (Bld) [#/Vol] 251 10*3/uL Normal 138-453 [facility] Comment on above: Performed By: #### C DP, HCG, BMP #### [facility] [employer] [facility] [place] [address] Recapper: Enrico Henry MD RBC (Bld) [#/Vol] 4.38 10*6/uL Normal 3.95-5.11 [facility] Comment on above: Performed By: #### C DP, HCG, BMP #### [facility] [employer] [address] [place] [address] Recapper: Enrico Henry MD WBC (Bld) [#/Vol] 12.8 10*3/uL High 3.5-11.3 [facility] Comment on above: Performed By: #### C DP, HCG, BMP #### [address] [address] Recapper: Enrico Henry MD CT ABDOMEN PELVIS W [...] Jaelyn Alejandra MD 10/27/23 Final result Normal [facility] CT Abdomen and Pelvis W cont rast Jennifer 10-27-2023 1. No acute findings within the abdomen or pelvis. No acute bowel pathology. 2. Small quantity of free pelvic fluid, likely physiologic. [facility] RIS CONSOLIDATED EXAMINATION: CT OF THE ABDOMEN AND PELVIS [...] No acute osseous or soft tissue abnormality. [facility] RIS [facility] Jaelyn Alejandra MD - 10/27/2023 EXAMINATION: CT OF THE ABDOMEN AND PELVIS [...] quantity of free pelvic fluid, likely physiologic. [facility] [employer] Radiology Study observation (narrative) [facility] [employer] CT Abdomen and Pelvis W cont rast IVOrdered By: Jaelyn Alejandra on 10-27-2023 [facility] [employer] [facility] Work Phone: HCG Qualitative, Serumon HCG ( test) Ql Negative NEGATIVE [facility] [employer] [facility] Comment on above: Specimens with hCG l evels near the threshold of the test (25 mIU/mL) may give a negative or indeterminate result. In such cases, another test should be performed with a new specimen in 48-72 hours. If early is suspected clinically in this setting, correlation with quantitative serum b-hCG level is suggested. [employer] has confirmed the use of plasma for this test. This has not been cleared or approved by the U.S. Food and Drug Administration. The FDA has determined that such clearance is not necessary. [facility] HCG Screen, Bloodon 10-27-19 24 HCG Screen, Blood Negative Normal [facility]G [facility] Comment on above: Result Comment: Spec imens with hCG levels near the threshold of the test (25 mIU/mL) may give a negative or indeterminate result. In such cases, another test should be performed with a new specimen in 48-72 hours. If early is suspected clinically in this setting, correlation with quantitative serum b-hCG level is suggested. [employer] has confirmed the use of plasma for this test. This has not been cleared or approved by the U.S. Food and Drug Administration. The FDA has determined that such clearance is not necessary. Performed By: #### C DP, HCG, BMP #### [employer] [address] [place] [address] Recapper: Enrico Henry MD DUP ABD PEL RETRO SCROT L IMITEDon 10-27-2023 DUP ABD PEL RETRO SCROT LIMITED EXAMINATION: [...] Ar Velasco MD 10/27/23 Final result Normal [facility] US NON OB TRANSVAGINALon US NON OB [...] Ar Velasco MD 10/27/23 Final result Normal [facility] US PELVIS COMPLETEon 024 US PELVIS COMPLETE [...] Ar Velasco MD 10/27/23 Final result Normal [facility] Urinalysis w/ Microon 2023 Bacteria None Normal NONE [facility] Comment on above: Performed By: #### U AMIC #### [address] [address] Recapper: Enrico Henry MD Bilirubin, SemiQt,Ur Negative Normal NEG [facility] Comment on above: Performed By: #### U AMIC #### [address] [address] Recapper: Enrico Henry MD Blood, Urine MODERATE Abnormal NEG [facility] Comment on above: Performed By: #### U AMIC #### [address] [address] Recapper: Enrico Henry MD Casts 10 TO 20 HYALINE Normal 0-8 [facility] Comment on above: Result Comment: Refe rence range defined for non-centrifuged specimen. Performed By: #### U AMIC #### [address] [address] Recapper: Enrico Henry MD Clarity (U) Cloudy Abnormal CLEAR [facility] Comment on above: Performed By: #### U AMIC #### [address] [address] Recapper: Enrico Henry MD Color (U) Yellow Normal YEL [facility] Comment on above: Performed By: #### U AMIC #### [address] [address] Recapper: Enrico Henry MD Epithelial cells LM Ql (Urine sed) 5 TO 10 Normal 0-5 [facility] Comment on above: Performed By: #### U AMIC #### [address] [address] Recapper: Enrico Henry MD Glucose Ql (U) Negative Normal NEG [facility] Comment on above: Performed By: #### U AMIC #### [address] [address] Recapper: Enrico Henry MD Ketones Ql (U) Negative Normal NEG [facility] Comment on above: Performed By: #### U AMIC #### [address] [address] Recapper: Enrico Henry MD Leukocyte esterase Test strip Ql (U) SMALL Abnormal NEG [facility] Comment on above: Performed By: #### U AMIC #### [address] [address] Recapper: Enrico Henry MD Nitrite,Ur Negative Normal NEG [facility] Comment on above: Performed By: #### U AMIC #### [address] [address] Recapper: Enrico Henry MD PH,Ur 5.0 Normal 5.0-8.0 [facility] Comment on above: Performed By: #### U AMIC #### [address] [address] Recapper: Enrico Henry MD Protein Ql (U) Negative Normal NEG [facility] Comment on above: Performed By: #### U AMIC #### [address] [address] Recapper: Enrico Henry MD Spec. [place],Ur 1.033 High 1.005-1.03 0 [facility] Comment on above: Performed By: #### U AMIC #### [facility] [place] [address] Recapper: Enrico Henry MD Urine RBC's 2 TO 5 Normal 0-4 [facility] Comment on above: Result Comment: Refe rence range defined for non-centrifuged specimen. Performed By: #### U AMIC #### [address] [address] Recapper: Enrico Henry MD Urine WBC's 20 TO 50 Normal 0-5 [facility] Comment on above: Performed By: #### U AMIC #### [address] [address] Recapper: Enrico Henry MD Urobilinogen,Ur Normal Normal 0.0-1.0 [facility] Comment on above: Performed By: #### U AMIC #### [address] [address] Recapper: Enrico Henry MD Urinalysis with Microscopico n 10-27-2023 Bacteria LM Ql (Urine sed) None None [facility] Bilirubin Ql (U) Negative NEGATIVE [facility] [employer] Casts LM.LPF (Urine sed) [#/Area] 10 TO 20 HYALINE Reference range defined for non-centrifuged specimen. [employer] Clarity (U) Cloudy Abnormal Clear [facility] Color (U) Yellow Yellow [facility] Epithelial cells LM.HPF (Urine sed) [#/Area] 5 TO 10 [facility] Glucose Test strip (U) [Mass/Vol] Negative NEGATIVE mg/dL [facility] Hemoglobin Auto test strip Ql (U) MODERATE Abnormal NEGATIVE [facility] Interpretation and review of laboratory results Abnormal [facility] Ketones (U) [Mass/Vol] Negative NEGAT MCKENZIE mg/dL [facility] Leukocyte esterase Test strip Ql (U) SMALL Abnormal NEGATIVE [facility] Nitrite Ql (U) Negative NEGATIVE [facility] pH (U) 5.0 [pH] 5.0 - 8.[address] [facility] Protein (U) [Mass/Vol] Negative NEGAT [place]CKENZIE mg/dL [facility] RBC LM.HPF (Urine sed) [#/Area] 2 TO [address] [facility] Comment on above: Reference range defi balaji for non-centrifuged specimen. Specific gravity (U) [Rel density] 1.033 High 1.005 - 1.[address] [facility] Urobilinogen Qn (U) Normal 0.0 - 1. 0 EU/dL [facility] WBC LM.HPF (Urine sed) [#/Area] 20 TO 50 [facility] Automated basophil %Ordered By: Amaury Galindo on 10-04-2023 Basophils/100 WBC (Bld) 0.5 % Normal . [facility] Comment on above: Performed By: #### A EZEQUIEL HENRY UHCG #### [facility] [address] [place] [address] Automated basophil countOrde red By: Amaury Galindo on 10-04-2023 Basophils (Bld) [#/Vol] 0.1 10*3/uL Normal 0.0-0.2 [facility] Comment on above: Result Comment: PERF ORMED BY: [place] [address] PATHOLOGIST LICENSED MASSAGE PRACTITIONER JL PERKINS M.D. Performed By: #### A EZEQUIEL HENRY Ann #### [facility] [address] [place] [address] Automated blood monocyte cou ntOrdered By: Amaury Galindo on 10-04-2023 Monocytes (Bld) [#/Vol] 1.0 10*3/uL High 0.0-0.8 [facility] Comment on above: Performed By: #### A EZEQUIEL HENRY, [facility] #### [address] Automated eosinophil %Ordere d By: Amaury Galindo on 10-04-2023 Eosinophils/100 WBC (Bld) 1.7 % Normal . [facility] Comment on above: Performed By: #### A EZEQUIEL HENRY, [facility] #### [address] Automated eosinophil countOr dered By: Amaury Galindo on 10-04-2023 Eosinophils (Bld) [#/Vol] 0.3 10*3/uL Normal 0.0-0.45 [facility] Comment on above: Performed By: #### A EZEQUIEL HENRY, [facility] #### [address] Automated monocyte %Ordered By: Amaury Galindo on 10-04-2023 Monocytes/100 WBC (Bld) 6.4 % Normal . [facility] Comment on above: Performed By: #### A EZEQUIEL HENRY, [facility] #### [address] Automated neutrophil %Ordere d By: Amaury Galindo on 10-04-2023 Neutrophils/100 WBC (Bld) 60.2 % Normal . [facility] Comment on above: Performed By: #### A EZEQUIEL HENRY, [facility] #### [address] Bacteria [Presence] in Urine by AutomatedOrdered By: Amaury Galindo on 10-04-2023 Bacteria Auto Ql (U) 2+ [HPF] High None Seen [facility] Basic Metabolic Panelon Creatinine Clr Calc Pharmacy 97.19 Normal [facility] Comment on above: Result Comment: PERF ORMED BY: [place] [address] PATHOLOGIST LICENSED MASSAGE PRACTITIONER JL PERKINS M.D. Performed By: #### A EZEQUIEL HENRY, [facility] #### [facility] [address] GFR/1.73 sq M.predicted MDRD (S/P/Bld) [Vol rate/Area] mL/min/{1.73_m2} Normal [facility] Comment on above: Performed By: #### A ADANUALEEANN, SULEMAU, [facility] #### [address] Bilirubin Test strip Ql (U)O rdered By: Amaury Galindo on 10-04-2023 Bilirubin Ql (U) Negative Negative [facility] CT abdomen pelvis wo conon 0 10-04-2023 CT abdomen pelvis wo con [facility] [place] [address] [place] [address] CT Scan Report Signed Patient: Tracie Samuels MR#: [id number] : 1990 Acct:[id number] Age/Sex: 33 / F ADM Date: 10/03/23 Loc: ER Room: Type: [facility] ER Attending Dr: Copies to: Amaury Galindo DO Ordering Provider: Amuary Galindo DO Date of Service: 10/04/23 CT/CT [...] Taylor Wiley M.D.10/04/2023 9:37 AM Dictation Location: [place] [address] Transcribed By: [facility] 10/04/2337 Dictated By: Taylor Wiley MD 10/04/23 0930 Signed By: 10/04/2337 Normal [facility] Calcium [Mass/volume] in Ser um or PlasmaOrdered By: Amaury Galindo on 10-04-2023 Calcium [Mass/Vol] 8.9 mg/dL Normal 8.6-10.3 [facility] Comment on above: Performed By: #### A EZEQUIEL HENRY UHCG #### [facility] [address] Carbon dioxide, total [Moles /volume] in Serum or PlasmaOrdered By: Amaury Galindo on 10-04-2023 CO2 [Moles/Vol] 24.5 mmol/L Normal 21.0-31.0 [facility] Comment on above: Performed By: #### A EZEQUIEL HENRY UHCG #### [facility] [address] [place] [id number] [place] Chloride [Moles/volume] in S phoebe or PlasmaOrdered By: Amaury Galindo on 10-04-2023 Chloride [Moles/Vol] 104 mmol/L Normal 98-107 [facility] Comment on above: Performed By: #### A DDONUAPLUS, CUU, UHCG #### [address] Color of Urine by AutoOrdere d By: Amaury Galindo on 10-04-2023 Color (U) Light-yellow Normal Yellow [facility] Comment on above: Order Comment: Name Collection Type:: Clean-Voided Midstream Performed By: #### C UU, UHCG, ADDONUAPLUS #### [address] Complete Blood Count Auto Di ffon 10-04-2023 Mean Corpuscular HGB Conc 33.3 g/dL Normal 32.0-35.0 [facility] Comment on above: Performed By: #### A DDONUAPLUS, CUU, UHCG #### [address] Monocytes/100 WBC (Bld) 18.44 % Normal 0.00-20.00 [facility] Comment on above: Performed By: #### A DDONUAPLUS, CUU, UHCG #### [address] NRBC% 0.1 /100{WBC} Normal 0-0.5 [facility] Comment on above: Performed By: #### A DDONUAPLUS, CUU, UHCG #### [address] Creatinine [Mass/volume] in Serum or PlasmaOrdered By: Amaury Galindo on 10-04-2023 Creatinine [Mass/Vol] 0.84 mg/dL Normal 0.60-1.20 [facility] Comment on above: Performed By: #### A DDONUAPLUS, CUU, UHCG #### [address] Dipstick and Microscopicon 0 10-04-2023 Bacteria,Urine 2+ High None Seen [facility] Comment on above: Order Comment: Name Collection Type:: Clean-Voided Midstream Performed By: #### C UU, UHCG, ADDONUAPLUS #### [facility] [address] [place] [address] [place] Bilirubin,Urine Negative Normal Negative [facility] Comment on above: Order Comment: Name Collection Type:: Clean-Voided Midstream Performed By: #### C UU, UHCG, ADDONUAPLUS #### [facility] [address] [place] [address] [place] Glucose Ql (U) Normal Normal Normal [facility] Comment on above: Order Comment: Name Collection Type:: Clean-Voided Midstream Performed By: #### C UU, UHCG, ADDONUAPLUS #### [place] [address] [place] Hyaline Casts,Urine None Normal 0-8 [facility] Comment on above: Order Comment: Name Collection Type:: Clean-Voided Midstream Performed By: #### C UU, UHCG, ADDONUAPLUS #### [place] [address] [place] Mucus,Urine 1+ Critically abnormal [facility] Comment on above: Order Comment: Name Collection Type:: Clean-Voided Midstream Performed By: #### C UU, UHCG, ADDONUAPLUS #### [place] [address] [place] Nitrite,Urine Negative Normal Negative [facility] Comment on above: Order Comment: Name Collection Type:: Clean-Voided Midstream Performed By: #### C UU, UHCG, ADDONUAPLUS #### [place] [id number] [place] Occult Blood,Urine 1+ High Negative [facility] Comment on above: Order Comment: Name Collection Type:: Clean-Voided Midstream Performed By: #### C UU, UHCG, ADDONUAPLUS #### [place] [address] [place] Protein,Urine Negative Normal Negative [facility] Comment on above: Order Comment: Name Collection Type:: Clean-Voided Midstream Performed By: #### C UU, UHCG, ADDONUAPLUS #### [place] [address] [place] RBC,Urine 5-9 High 0-4 [facility] Comment on above: Order Comment: Name Collection Type:: Clean-Voided Midstream Performed By: #### C UU, UHCG, ADDONUAPLUS #### [address] Specificy [place],Urine 1.026 Normal 1.001-1.03 0 [facility] Comment on above: Order Comment: Name Collection Type:: Clean-Voided Midstream Performed By: #### C UU, UHCG, ADDONUAPLUS #### [address] Squamous Epithelial Cell,Urine 20-49 High 0-2 [facility] Comment on above: Order Comment: Name Collection Type:: Clean-Voided Midstream Performed By: #### C UU, UHCG, ADDONUAPLUS #### [address] Urobilinogen,Urine Normal Normal Normal [facility] Comment on above: Order Comment: Name Collection Type:: Clean-Voided Midstream Performed By: #### C UU, UHCG, ADDONUAPLUS #### [place] [address] [place] WBC CLUMP, Urine Few High None Seen [facility] Comment on above: Order Comment: Name Collection Type:: Clean-Voided Midstream Performed By: #### C UU, UHCG, ADDONUAPLUS #### [place] [address] [place] WBC,Urine 20-49 High 0-4 [facility] Comment on above: Order Comment: Name Collection Type:: Clean-Voided Midstream Performed By: #### C UU, UHCG, ADDONUAPLUS #### [place] [address] [place] Epithelial cells.squamous [# /area] in Urine sediment by Automated countOrdered By: Amaury Galindo on 10-04-2023 Epithelial cells.squamous Auto (Urine sed) [#/Area] 20-49 [HPF] High 0-2 [facility] Erythrocyte distribution wid th [Ratio] by Automated countOrdered By: Amaury Galindo on 10-04-2023 Erythrocyte distribution width (RBC) [Ratio] 13.2 % Normal 11.9-15.3 [facility] Comment on above: Performed By: #### A EZEQUIEL HENRY, UHCG #### [facility] [address] [place] [id number] [place] Erythrocytes [#/area] in Uri ne sediment by Automated countOrdered By: Amaury Galindo on 10-04-2023 RBC Auto (Urine sed) [#/Area] 5-9 [HPF] High 0-4 [facility] Erythrocytes [#/volume] in B lood by Automated countOrdered By: Amaury Galindo on 10-04-2023 RBC (Bld) [#/Vol] 4.40 10*6/uL Normal 3.60-5.00 [facility] Comment on above: Performed By: #### A EZEQUIEL HENRY, UHCG #### [facility] [address] [place] [id number] [place] Glucose [Mass/volume] in Ser um or PlasmaOrdered By: Amaury Galindo on 10-04-2023 Glucose [Mass/Vol] 98 mg/dL Normal 70-100 [facility] Comment on above: ADA recommended refe rence rangeRandom Glucose Reference Range is dependent on time and content of last meal. Glucose of more than 200 mg/dL in a nonstressed, ambulatory subject supports the diagnosis of Diabetes Mellitus. Result Comment: [place] om Glucose Reference Range is dependent on time and content of last meal. Glucose of more than 200 mg/dL in a nonstressed, ambulatory subject supports the diagnosis of Diabetes Mellitus. ADA recommended reference range Performed By: #### A DDONUAPLUS CUU, UHCG #### [facility] [address] [place] [id number] [place] Glucose [Mass/volume] in Uri ne by Test stripOrdered By: Amaury Galindo on 10-04-2023 Glucose Test strip (U) [Mass/Vol] Normal mg/dL Normal [facility] HCG ( test) [place].rapi d Ql (U)Ordered By: Amaury Galindo on 10-04-2023 HCG ( test) Ql (U) Negative [facility] HCG,Urineon 10-04-2023 Beta HCG ( test) Ql (U) Negative Normal [facility] Comment on above: Order Comment: Name Collection Type:: Clean-Voided Midstream Result Comment: PERF ORMED BY: [place] [address] PATHOLOGIST LICENSED MASSAGE PRACTITIONER JL PERKINS M.D. Performed By: #### C JEFF MARTINEZ, ADDONUAPLUS #### [address] Hematocrit [Volume Fraction] of Blood by Automated countOrdered By: Amaury Galindo on 10-04-2023 Hematocrit (Bld) [Volume fraction] 39.0 % Normal 34.0-46.4 [facility] Comment on above: Performed By: #### A EZEQUIEL HENRY UHCG #### [address] Hemoglobin Test strip Ql (U) Ordered By: Amauyr Galindo on 10-04-2023 Hemoglobin Ql (U) 1+ High Negative [facility] Hemoglobin [Mass/volume] in BloodOrdered By: Amaury Galindo on 10-04-2023 Hemoglobin (Bld) [Mass/Vol] 13.0 g/dL Normal 11.8-15.4 [facility] Comment on above: Performed By: #### A EZEQUIEL HENRY UHCG #### [address] Hyaline casts [#/area] in Ur ine sediment by Automated countOrdered By: Amaury Galindo on 10-04-2023 Hyaline casts Auto (Urine sed) [#/Area] None [LPF] 0-8 [facility] Ketones [Presence] in Urine by Test stripOrdered By: Amaury Galindo on 10-04-2023 Ketones Ql (U) Negative Normal Negative [facility] Comment on above: Order Comment: Name Collection Type:: Clean-Voided Midstream Performed By: #### C UU, UHCG, ADDONUAPLUS #### [facility] [address] [place] [address] [place] Leukocyte clumps [Presence] in Urine by AutomatedOrdered By: Amaury Galindo on 10-04-2023 Leukocyte clumps Auto Ql (U) Few [LPF] High None Seen [facility] Leukocyte esterase [Presence ] in Urine by Test stripOrdered By: Amaury Galindo on 10-04-2023 Leukocyte esterase Test strip Ql (U) 2+ High Negative [facility] Comment on above: Order Comment: Name Collection Type:: Clean-Voided Midstream Performed By: #### C UU, UHCG, ADDONUAPLUS #### [facility] [address] [place] [address] [place] Leukocytes [#/area] in Urine sediment by Automated countOrdered By: Amaury Galindo on 10-04-2023 WBC Auto (Urine sed) [#/Area] 20-49 [HPF] High 0-4 [facility] Leukocytes [#/volume] correc rachelle for nucleated erythrocytes in Blood by Automated counOrdered By: Amaury Galindo on 10-04-2023 WBC corrected for nucl RBC Auto (Bld) [#/Vol] 15.4 10*3/uL High 3.8-11.6 [facility] Leukocytes [#/volume] in Blo od by Automated countOrdered By: Amaury Galindo on 10-04-2023 WBC (Bld) [#/Vol] 15.4 10*3/uL High 3.8-11.6 [facility] Comment on above: Performed By: #### A DDONUAPLUS, CUU, UHCG #### [facility] [address] [place] [address] [place] Lymphocytes [#/volume] in Bl ood by Automated countOrdered By: Amaury Galindo on 10-04-2023 Lymphocytes (Bld) [#/Vol] 4.8 10*3/uL Normal 1.00-4.8 [facility] Comment on above: Performed By: #### A EZEQUIEL HENRY [facility] #### [facility] [address] Lymphocytes/100 leukocytes i n Blood by Automated countOrdered By: Amaury Galindo on 10-04-2023 Lymphocytes/100 WBC (Bld) 31.2 % Normal . [facility] Comment on above: Performed By: #### A EZEQUIEL HENRY [facility] #### [address] MCH [Entitic mass] by Automa rachelle countOrdered By: Amaury Galindo on 10-04-2023 MCH (RBC) [Entitic mass] 29.5 pg Normal 24.7-34.3 [facility] Comment on above: Performed By: #### A EZEQUIEL HENRY [facility] #### [address] MCHC Auto (RBC) [Mass/Vol]Or dered By: Amaury Galindo on 10-04-2023 MCHC (RBC) [Mass/Vol] 33.3 g/dL 32.0-35.0 [facility] MCV [Entitic volume] by Auto mated countOrdered By: Amaury Galindo on 10-04-2023 MCV (RBC) [Entitic vol] 88.7 fL Normal 80-100 [facility] Comment on above: Performed By: #### A SULEMA HENRY, [facility] #### [facility] [address] [place] [address] Monocyte distribution width [Entitic volume] in Blood by AutomatedOrdered By: Amaury Galindo on 10-04-2023 Monocyte distribution width Auto (Bld) [Entitic vol] 18.44 % 0.00-20.00 [facility] Mucus [Presence] in Urine by AutomatedOrdered By: Amaury Galindo on 10-04-2023 Mucus Auto Ql (U) 1+ [LPF] Abnormal [facility] Neutrophils [#/volume] in Bl ood by Automated countOrdered By: Amaury Galindo on 10-04-2023 Neutrophils (Bld) [#/Vol] 9.2 10*3/uL High 1.8-7.7 [facility] Comment on above: Performed By: #### A EZEQUIEL HENRY [facility] #### [facility] [address] Nitrite Test strip Ql (U)Ord ered By: Amaury Galindo on 10-04-2023 Nitrite Ql (U) Negative Negative [facility] No Panel InformationOrdered By: Amaury Galindo on 10-04-2023 Estimated GFR (CKD-EPI) > 60.0 mL/Min [facility] Creatinine Clearance (Chem 97.19 [facility] Nucleated erythrocytes [Pres ence] in Blood by Automated countOrdered By: Amaury Galindo on 10-04-2023 Nucleated RBC Auto Ql (Bld) 0.1 /100{WBC} 0-0.5 [facility] Platelet mean volume [Entiti c volume] in Blood by Automated countOrdered By: Amaury Galindo on 10-04-2023 Platelet mean volume (Bld) [Entitic vol] 7.3 fL Normal 6.3-10.7 [facility] Comment on above: Performed By: #### A EZEQUIEL HENRY [facility] #### [facility] [address] [place] [address] [place] Platelets [#/volume] in Bloo d by Automated countOrdered By: Amaury Galindo on 10-04-2023 Platelets (Bld) [#/Vol] 260 10*3/uL Normal 150-450 [facility] Comment on above: Performed By: #### [facility] #### [facility] [address] Potassium [Moles/volume] in Serum or PlasmaOrdered By: Amaury Galindo on 10-04-2023 Potassium [Moles/Vol] 3.6 mmol/L Normal 3.5-5.1 [facility] Comment on above: Performed By: #### A EZEQUIEL HENRY AnnG #### [address] Protein Test strip (U) [Mass /Vol]Ordered By: Amaury Galindo on 10-04-2023 Protein (U) [Mass/Vol] Negative Negative [facility] Serum or plasma anion gap de terminationOrdered By: Amaury Galindo on 10-04-2023 Anion gap [Moles/Vol] 10.1 mmol/L Normal 6.0-15.0 [facility] Comment on above: Performed By: #### A EZEQUIEL HENRY CG #### [address] Sodium [Moles/volume] in Ser um or PlasmaOrdered By: Amaury Galindo on 10-04-2023 Sodium [Moles/Vol] 135 mmol/L Low 136-145 [facility] Comment on above: Performed By: #### A EZEQUIEL HENRY AnnG #### [address] Specific gravity Test strip (U) [Rel density]Ordered By: Amaury Galindo on 10-04-2023 Specific gravity (U) [Rel density] 1.026 1.001-1.03 0 [facility] Urea nitrogen [Mass/volume] in Serum or PlasmaOrdered By: Amaury Galindo on 10-04-2023 Urea nitrogen [Mass/Vol] 14 mg/dL Normal 7-25 [facility] Comment on above: Performed By: #### A EZEQUIEL HENRY CG #### [address] Urine Cultureon 10-04-2023 Bacteria identified Cx Nom (U) >100,000 colonies/ml mixed bacterial skin contaminants 2 Days PERFORMED BY: [address] [place] [address] PATHOLOGIST LICENSED MASSAGE PRACTITIONER JL EPRKINS M.D. Normal [facility] Comment on above: Performed By: #### C UU, UHCG, ADDONUAPLUS #### [facility] [address] [place] [address] Urine appearanceOrdered By: Amaury Galindo on 10-04-2023 Appearance (U) Cloudy Critically abnormal Clear [facility] Comment on above: Order Comment: Name Collection Type:: Clean-Voided Midstream Performed By: #### C UU, UHCG, ADDONUAPLUS #### [address] Urobilinogen Test strip (U) [Mass/Vol]Ordered By: Amaury Galindo on 10-04-2023 Urobilinogen (U) [Mass/Vol] Normal mg/dL Normal [facility] pH of Urine by Test stripOrd ered By: Amaury Galindo on 10-04-2023 pH (U) 6.0 [pH] Normal 5.0-9.0 [facility] Comment on above: Order Comment: Name Collection Type:: Clean-Voided Midstream Performed By: #### C UU, UHCG, ADDONUAPLUS #### [facility] [address] [place] [address] Alanine aminotransferase [En zymatic activity/volume] in Serum or PlasmaOrdered By: Amaury Galindo on 09-20-2023 ALT [Catalytic activity/Vol] 13 U/L Normal 7-52 [facility] Comment on above: Performed By: #### C UU, UHCG, ADDONUAPLUS #### [address] Albumin [Mass/volume] in Ser um or Plasma by Bromocresol green (BCG) dye binding methoOrdered By: Amaury Galindo on 09-20-2023 Albumin BCG dye [Mass/Vol] 4.1 g/dL 3.5-5.7 [facility] Alkaline phosphatase [Enzyma tic activity/volume] in Serum or PlasmaOrdered By: Amaury Galindo on 09-20-2023 ALP [Catalytic activity/Vol] 107 U/L High 34-104 [facility] Comment on above: Performed By: #### C UU, UHCG, ADDONUAPLUS #### [address] Aspartate aminotransferase [ Enzymatic activity/volume] in Serum or PlasmaOrdered By: Amaury Galindo on 09-20-2023 AST [Catalytic activity/Vol] 15 U/L Normal 13-39 [facility] Comment on above: Performed By: #### C UU, UHCG, ADDONUAPLUS #### [address] Automated basophil %Ordered By: Amaury Galindo on 09-20-2023 Basophils/100 WBC (Bld) 0.6 % Normal . [facility] Comment on above: Performed By: #### C UU, UHCG, ADDONUAPLUS #### [address] Automated basophil countOrde red By: Amaury Galindo on 09-20-2023 Basophils (Bld) [#/Vol] 0.1 10*3/uL Normal 0.0-0.2 [facility] Comment on above: Result Comment: PERF ORMED BY: [place] [address] PATHOLOGIST LICENSED MASSAGE PRACTITIONER JL PERKINS M.D. Performed By: #### C UU, UHCG, ADDONUAPLUS #### [address] Automated blood monocyte cou ntOrdered By: Amaury Galindo on 09-20-2023 Monocytes (Bld) [#/Vol] 0.5 10*3/uL Normal 0.0-0.8 [facility] Comment on above: Performed By: #### C UU, UHCG, ADDONUAPLUS #### [address] Automated eosinophil %Ordere d By: Amaury Galindo on 09-20-2023 Eosinophils/100 WBC (Bld) 2.1 % Normal . [facility] Comment on above: Performed By: #### C UU, UHCG, ADDONUAPLUS #### [address] Automated eosinophil countOr dered By: Amaury Galindo on 09-20-2023 Eosinophils (Bld) [#/Vol] 0.3 10*3/uL Normal 0.0-0.45 [facility] Comment on above: Performed By: #### C UU, UHCG, ADDONUAPLUS #### [address] Automated monocyte %Ordered By: Amaury Galindo on 09-20-2023 Monocytes/100 WBC (Bld) 4.3 % Normal . [facility] Comment on above: Performed By: #### C UU, UHCG, ADDONUAPLUS #### [address] Automated neutrophil %Ordere d By: Amaury Galindo on 09-20-2023 Neutrophils/100 WBC (Bld) 52.5 % Normal . [facility] Comment on above: Performed By: #### C UU, UHCG, ADDONUAPLUS #### [address] Bacteria [Presence] in Urine by AutomatedOrdered By: Amaury Galindo on 09-20-2023 Bacteria Auto Ql (U) None seen [HPF] None Seen [facility] Basic Metabolic Panelon 08-27 Creatinine Clr Calc Pharmacy 92.60 Normal [facility] Comment on above: Performed By: #### C UU, UHCG, ADDONUAPLUS #### [address] GFR/1.73 sq M.predicted MDRD (S/P/Bld) [Vol rate/Area] mL/min/{1.73_m2} Normal [facility] Comment on above: Performed By: #### C UU, UHCG, ADDONUAPLUS #### [address] Bilirubin Test strip Ql (U)O rdered By: Amaury Galindo on 09-20-2023 Bilirubin Ql (U) Negative Negative [facility] Bilirubin.direct [Mass/volum e] in Serum or PlasmaOrdered By: Amaury Galindo on 09-20-2023 Bilirubin.direct [Mass/Vol] 0.00 mg/dL Low 0.03-0.18 [facility] Comment on above: If the DBIL is less than 0.1, IBIL is not able to becalculated. Bilirubin.total [Mass/volume ] in Serum or PlasmaOrdered By: Amaury Galindo on 09-20-2023 Bilirubin [Mass/Vol] 0.3 mg/dL Normal 0.3-1.0 [facility] Comment on above: Performed By: #### C UU, CG, ADDONUAPLUS #### [address] abdomen pelvis wo conon 0 09-20-2023 CT abdomen pelvis wo con [facility] [place] [address] [place] [address] CT Scan Report Signed Patient: Tracie Samuels MR#: [id number] : 1990 Acct:[id number] Age/Sex: 33 / F ADM Date: 09/20/23 Loc: ER Room: Type: [facility] ER Attending Dr: Copies to: Jose Miguel Soria DO, CLIF Galindo DO Ordering Provider: Jose Miguel Soria DO, [...] Huerta Jr., D.OCheryl09/20/2023 8:52 AM Dictation Location: [place] [address] Transcribed By: [facility] 09/20/2352 Dictated By: Dale Huerta Jr, DO 09/20/23 0846 Signed By: 09/20/23851 Normal [facility] Calcium [Mass/volume] in Ser um or PlasmaOrdered By: Amaury Galindo on 09-20-2023 Calcium [Mass/Vol] 9.0 mg/dL Normal 8.6-10.3 [facility] Comment on above: Performed By: #### C UU, UHCG, ADDONUAPLUS #### [facility] [address] [place] [address] Carbon dioxide, total [Moles /volume] in Serum or PlasmaOrdered By: Amaury Galindo on 09-20-2023 CO2 [Moles/Vol] 23.3 mmol/L Normal 21.0-31.0 [facility] Comment on above: Performed By: #### C UU, UHCG, ADDONUAPLUS #### [facility] [address] [place] [address] [place] Chloride [Moles/volume] in S phoebe or PlasmaOrdered By: Amaury Galindo on 09-20-2023 Chloride [Moles/Vol] 106 mmol/L Normal 98-107 [facility] Comment on above: Performed By: #### C UU, UHCG, ADDONUAPLUS #### [facility] [address] [place] [address] [place] Color of Urine by AutoOrdere d By: Amaury Galindo on 09-20-2023 Color (U) Light-orange Critically abnormal Yellow [facility] Comment on above: Order Comment: Name Collection Type:: Clean-Voided Midstream Performed By: #### A DDONUAPLUS, CUU, UHCG #### [address] Complete Blood Count Auto Di ffon 09-20-2023 Mean Corpuscular HGB Conc 33.7 g/dL Normal 32.0-35.0 [facility] Comment on above: Performed By: #### C UU, UHCG, ADDONUAPLUS #### [place] [address] [place] Monocytes/100 WBC (Bld) 17.54 % Normal 0.00-20.00 [facility] Comment on above: Performed By: #### C UU, UHCG, ADDONUAPLUS #### [address] NRBC% 0.1 /100{WBC} Normal 0-0.5 [facility] Comment on above: Performed By: #### C UU, UHCG, ADDONUAPLUS #### [place] [address] [place] Creatinine [Mass/volume] in Serum or PlasmaOrdered By: Amaury Galindo on 09-20-2023 Creatinine [Mass/Vol] 0.88 mg/dL Normal 0.60-1.20 [facility] Comment on above: Performed By: #### C UU, UHCG, ADDONUAPLUS #### [place] [address] [place] Dipstick and Microscopicon 0 09-20-2023 Bacteria,Urine None Seen Normal None Seen [facility] Comment on above: Order Comment: Name Collection Type:: Clean-Voided Midstream Performed By: #### A DDONUAPLUS, CUU, UHCG #### [place] [address] [place] Bilirubin,Urine Negative Normal Negative [facility] Comment on above: Order Comment: Name Collection Type:: Clean-Voided Midstream Performed By: #### A DDONUAPLUS, CUU, UHCG #### [address] Glucose Ql (U) Normal Normal Normal [facility] Comment on above: Order Comment: Name Collection Type:: Clean-Voided Midstream Performed By: #### A DDONUAPLUS, CUU, UHCG #### [address] Mucus,Urine 2+ Critically abnormal [facility] Comment on above: Order Comment: Name Collection Type:: Clean-Voided Midstream Performed By: #### A DDONUAPLUS, CUU, UHCG #### [address] Nitrite,Urine Negative Normal Negative [facility] Comment on above: Order Comment: Name Collection Type:: Clean-Voided Midstream Performed By: #### A DDONUAPLUS, CUU, UHCG #### [place] [address] [place] Occult Blood,Urine Trace High Negative [facility] Comment on above: Order Comment: Name Collection Type:: Clean-Voided Midstream Performed By: #### A DDONUAPLUS, CUU, UHCG #### [place] [address] [place] RBC,Urine 5-9 High 0-4 [facility] Comment on above: Order Comment: Name Collection Type:: Clean-Voided Midstream Performed By: #### A DDONUAPLUS, CUU, UHCG #### [place] [address] [place] Specificy [place],Urine 1.033 High 1.001-1.03 0 [facility] Comment on above: Order Comment: Name Collection Type:: Clean-Voided Midstream Performed By: #### A DDONUAPLUS, CUU, UHCG #### [address] [place] [address] [place] Squamous Epithelial Cell,Urine 3-4 High 0-2 [facility] Comment on above: Order Comment: Name Collection Type:: Clean-Voided Midstream Performed By: #### A DDONUAPLUS, CUU, UHCG #### [facility] [address] Urobilinogen,Urine Normal Normal Normal [facility] Comment on above: Order Comment: Name Collection Type:: Clean-Voided Midstream Performed By: #### A DDONUAPLUS, CUU, UHCG #### [address] WBC,Urine 5-9 High 0-4 [facility] Comment on above: Order Comment: Name Collection Type:: Clean-Voided Midstream Performed By: #### A DDONUAPLUS, CUU, UHCG #### [address] Epithelial cells.squamous [# /area] in Urine sediment by Automated countOrdered By: Amaury Galindo on 09-20-2023 Epithelial cells.squamous Auto (Urine sed) [#/Area] 3-4 [HPF] High 0-2 [facility] Erythrocyte distribution wid th [Ratio] by Automated countOrdered By: Amaury Galindo on 09-20-2023 Erythrocyte distribution width (RBC) [Ratio] 12.7 % Normal 11.9-15.3 [facility] Comment on above: Performed By: #### C UU, UHCG, ADDONUAPLUS #### [facility] [address] [place] [address] Erythrocytes [#/area] in Uri ne sediment by Automated countOrdered By: Amaury Galindo on 09-20-2023 RBC Auto (Urine sed) [#/Area] 5-9 [HPF] High 0-4 [facility] Erythrocytes [#/volume] in B lood by Automated countOrdered By: Amaury Galinod on 09-20-2023 RBC (Bld) [#/Vol] 4.28 10*6/uL Normal 3.60-5.00 [facility] Comment on above: Performed By: #### C UU, UHCG, ADDONUAPLUS #### [facility] [address] [place] [address] [place] Glucose [Mass/volume] in Ser um or PlasmaOrdered By: Amaury Galindo on 09-20-2023 Glucose [Mass/Vol] 115 mg/dL High 70-100 [facility] Comment on above: ADA recommended refe rence rangeRandom Glucose Reference Range is dependent on time and content of last meal. Glucose of more than 200 mg/dL in a nonstressed, ambulatory subject supports the diagnosis of Diabetes Mellitus. Result Comment: [place] om Glucose Reference Range is dependent on time and content of last meal. Glucose of more than 200 mg/dL in a nonstressed, ambulatory subject supports the diagnosis of Diabetes Mellitus. ADA recommended reference range Performed By: #### C UU, UHCG, ADDONUAPLUS #### [facility] [address] [place] [address] [place] Glucose [Mass/volume] in Uri ne by Test stripOrdered By: Amaury Galindo on 09-20-2023 Glucose Test strip (U) [Mass/Vol] Normal mg/dL Normal [facility] HCG ( test) IA.rapi d Ql (U)Ordered By: Amaury Galindo on 09-20-2023 HCG ( test) Ql (U) Negative [facility] HCG,Urineon 09-20-2023 Beta HCG ( test) Ql (U) Negative Normal [facility] Comment on above: Order Comment: Name Collection Type:: Clean-Voided Midstream Result Comment: PERF ORMED BY: [place] [address] PATHOLOGIST LICENSED MASSAGE PRACTITIONER JL PERKINS M.D. Performed By: #### A DDONUAPLUS, SULEMAU, UHCG #### [place] [id number] [place] Hematocrit [Volume Fraction] of Blood by Automated countOrdered By: Amaury Galindo on 09-20-2023 Hematocrit (Bld) [Volume fraction] 37.9 % Normal 34.0-46.4 [facility] Comment on above: Performed By: #### C UU, UHCG, ADDONUAPLUS #### [address] Hemoglobin Test strip Ql (U) Ordered By: Amaury Galindo on 09-20-2023 Hemoglobin Ql (U) Trace High Negative [facility] Hemoglobin [Mass/volume] in BloodOrdered By: Amaury Galindo on 09-20-2023 Hemoglobin (Bld) [Mass/Vol] 12.8 g/dL Normal 11.8-15.4 [facility] Comment on above: Performed By: #### C UU, UHCG, ADDONUAPLUS #### [address] Hepatic Panelon 09-20-2023 Albumin [Mass/Vol] 4.1 g/dL Normal 3.5-5.7 [facility] Comment on above: Performed By: #### C UU, UHCG, ADDONUAPLUS #### [address] Bilirubin,Indirect 0.3 mg/dL Normal [facility] Comment on above: Performed By: #### C UU, UHCG, ADDONUAPLUS #### [address] Bilirubin.indirect [Mass/Vol] 0.00 mg/dL Low 0.03-0.18 [facility] Comment on above: Result Comment: If t he DBIL is less than 0.1, IBIL is not able to be calculated. Performed By: #### C UU, UHCG, ADDONUAPLUS #### [address] Ketones [Presence] in Urine by Test stripOrdered By: Amaury Galindo on 09-20-2023 Ketones Ql (U) Negative Normal Negative [facility] Comment on above: Order Comment: Name Collection Type:: Clean-Voided Midstream Performed By: #### A DDONUAPLUS, CUU, UHCG #### [facility] [address] [place] [address] [place] Leukocyte esterase [Presence ] in Urine by Test stripOrdered By: Amaury Galindo on 09-20-2023 Leukocyte esterase Test strip Ql (U) 3+ High Negative [facility] Comment on above: Order Comment: Name Collection Type:: Clean-Voided Midstream Performed By: #### A DDONUALEEANN, CUU, UHCG #### [facility] [address] [place] [address] [place] Leukocytes [#/area] in Urine sediment by Automated countOrdered By: Amaury Galindo on 09-20-2023 WBC Auto (Urine sed) [#/Area] 5-9 [HPF] High 0-4 [facility] Leukocytes [#/volume] correc rachelle for nucleated erythrocytes in Blood by Automated counOrdered By: Aamury Galindo on 09-20-2023 WBC corrected for nucl RBC Auto (Bld) [#/Vol] 12.4 10*3/uL High 3.8-11.6 [facility] Leukocytes [#/volume] in Blo od by Automated countOrdered By: Amaury Galindo on 09-20-2023 WBC (Bld) [#/Vol] 12.4 10*3/uL High 3.8-11.6 [facility] Comment on above: Performed By: #### C UU, UHCG, ADDONUAPLUS #### [facility] [address] [place] [address] [place] Lipase [Enzymatic activity/v olume] in Serum or PlasmaOrdered By: Amaury Galindo on 09-20-2023 Lipase [Catalytic activity/Vol] 36.0 U/L Normal 11.0-82.0 [facility] Comment on above: Result Comment: PERF ORMED BY: [place] [address] PATHOLOGIST LICENSED MASSAGE PRACTITIONER JL PERKINS M.D. Performed By: #### C UU, UHCG, ADDONUAPLUS #### [facility] [address] [place] [address] [place] Lymphocytes [#/volume] in Bl ood by Automated countOrdered By: Amaury Galindo on 09-20-2023 Lymphocytes (Bld) [#/Vol] 5.0 10*3/uL High 1.00-4.8 [facility] Comment on above: Performed By: #### C UU, UHCG, ADDONUAPLUS #### [facility] [address] [place] [address] Lymphocytes/100 leukocytes i n Blood by Automated countOrdered By: Amaury Galindo on 09-20-2023 Lymphocytes/100 WBC (Bld) 40.5 % Normal . [facility] Comment on above: Performed By: #### C UU, UHCG, ADDONUAPLUS #### [address] MCH [Entitic mass] by Automa rachelle countOrdered By: Amaury Galindo on 09-20-2023 MCH (RBC) [Entitic mass] 29.8 pg Normal 24.7-34.3 [facility] Comment on above: Performed By: #### C UU, UHCG, ADDONUAPLUS #### [address] MCHC Auto (RBC) [Mass/Vol]Or dered By: Amaury Galindo on 09-20-2023 MCHC (RBC) [Mass/Vol] 33.7 g/dL 32.0-35.0 [facility] MCV [Entitic volume] by Auto mated countOrdered By: Amaury Galindo on 09-20-2023 MCV (RBC) [Entitic vol] 88.6 fL Normal 80-100 [facility] Comment on above: Performed By: #### C UU, UHCG, ADDONUAPLUS #### [facility] [address] [place] [address] Monocyte distribution width [Entitic volume] in Blood by AutomatedOrdered By: Amaury Galindo on 09-20-2023 Monocyte distribution width Auto (Bld) [Entitic vol] 17.54 % 0.00-20.00 [facility] Mucus [Presence] in Urine by AutomatedOrdered By: Amaury Galindo on 09-20-2023 Mucus Auto Ql (U) 2+ [LPF] Abnormal [facility] Neutrophils [#/volume] in Bl ood by Automated countOrdered By: Amaury Galindo on 09-20-2023 Neutrophils (Bld) [#/Vol] 6.5 10*3/uL Normal 1.8-7.7 [facility] Comment on above: Performed By: #### C UU, UHCG, ADDONUAPLUS #### [facility] [address] Nitrite Test strip Ql (U)Ord ered By: Amaury Galindo on 09-20-2023 Nitrite Ql (U) Negative Negative [facility] No Panel InformationOrdered By: Amaury Galindo on 09-20-2023 Estimated GFR (CKD-EPI) > 60.0 mL/Min [facility] Creatinine Clearance (Chem 92.60 [facility] Nucleated erythrocytes [Pres ence] in Blood by Automated countOrdered By: Amaury Galindo on 09-20-2023 Nucleated RBC Auto Ql (Bld) 0.1 /100{WBC} 0-0.5 [facility] Platelet mean volume [Entiti c volume] in Blood by Automated countOrdered By: Amaury Galindo on 09-20-2023 Platelet mean volume (Bld) [Entitic vol] 8.0 fL Normal 6.3-10.7 [facility] Comment on above: Performed By: #### C UU, UHCG, ADDONUAPLUS #### [facility] [address] [place] [address] [place] Platelets [#/volume] in Bloo d by Automated countOrdered By: Amaury Galindo on 09-20-2023 Platelets (Bld) [#/Vol] 241 10*3/uL Normal 150-450 [facility] Comment on above: Performed By: #### C UU, UHCG, ADDONUAPLUS #### [facility] [address] [place] [address] [place] Potassium [Moles/volume] in Serum or PlasmaOrdered By: Amaury Galindo on 09-20-2023 Potassium [Moles/Vol] 3.9 mmol/L Normal 3.5-5.1 [facility] Comment on above: Performed By: #### C UU, UHCG, ADDONUAPLUS #### [address] Protein [Mass/volume] in Ser um or PlasmaOrdered By: Amaury Galindo on 09-20-2023 Protein [Mass/Vol] 7.6 g/dL Normal 6.4-8.9 [facility] Comment on above: Performed By: #### C UU, UHCG, ADDONUAPLUS #### [address] Protein [Mass/volume] in Uri ne by Test stripOrdered By: Amaury Galindo on 09-20-2023 Protein (U) [Mass/Vol] 30 mg/dL High Negative [facility] Comment on above: Order Comment: Name Collection Type:: Clean-Voided Midstream Performed By: #### A DDONUAPLUS, CUU, UHCG #### [address] Serum globulin measurement b y calculation (mass/volume)Ordered By: Amaury Galindo on 09-20-2023 Globulin (S) [Mass/Vol] 3.5 g/dL [facility] Comment on above: Performed By: #### C UU, UHCG, ADDONUAPLUS #### [address] Serum or plasma albumin/glob ulin mass ratioOrdered By: Amaury Galindo on 09-20-2023 Albumin/Globulin [Mass ratio] 1.2 {ratio} [facility] Comment on above: Performed By: #### C UU, UHCG, ADDONUAPLUS #### [address] Serum or plasma anion gap de terminationOrdered By: Amaury Galindo on 09-20-2023 Anion gap [Moles/Vol] 12.6 mmol/L Normal 6.0-15.0 [facility] Comment on above: Performed By: #### C UU, UHCG, ADDONUAPLUS #### [facility] [address] [place] [address] Serum or plasma non-glucuron idated bilirubin measurement (mass/volume)Ordered By: Amaury Galindo on 09-20-2023 Bilirubin.indirect [Mass/Vol] 0.3 mg/dL [facility] Sodium [Moles/volume] in Ser um or PlasmaOrdered By: Amaury Galindo on 09-20-2023 Sodium [Moles/Vol] 138 mmol/L Normal 136-145 [facility] Comment on above: Performed By: #### C UU, UHCG, ADDONUAPLUS #### [address] Specific gravity Test strip (U) [Rel density]Ordered By: Amaury Galindo on 09-20-2023 Specific gravity (U) [Rel density] 1.033 High 1.001-1.03 0 [facility] Urea nitrogen [Mass/volume] in Serum or PlasmaOrdered By: Amaury Galindo on 09-20-2023 Urea nitrogen [Mass/Vol] 20 mg/dL Normal 7-25 [facility] Comment on above: Performed By: #### C UU, UHCG, ADDONUAPLUS #### [facility] [address] [place] [address] Urine Cultureon 09-20-2023 Bacteria identified Cx Nom (U) >100,000 colonies/ml mixed bacterial skin contaminants 2 Days PERFORMED BY: [place] [address] PATHOLOGIST LICENSED MASSAGE PRACTITIONER JL PERKINS M.D. Normal [facility] Comment on above: Performed By: #### A DDONUAPLUS, CUU, UHCG #### [address] Urine appearanceOrdered By: Amaury Galindo on 09-20-2023 Appearance (U) Turbid Critically abnormal Clear [facility] Comment on above: Order Comment: Name Collection Type:: Clean-Voided Midstream Performed By: #### A DDONUAPLUS, CUU, UHCG #### [facility] [address] [place] [id number] [facility] Urine culture routineOrdered By: Amaury Galindo on 09-20-2023 Bacteria identified Cx Nom (U) 2 Days [facility] Urobilinogen Test strip (U) [Mass/Vol]Ordered By: Amaury Galindo on 09-20-2023 Urobilinogen (U) [Mass/Vol] Normal mg/dL Normal [facility] pH of Urine by Test stripOrd ered By: Amaury Galindo on 09-20-2023 pH (U) 7.0 [pH] Normal 5.0-9.0 [facility] Comment on above: Order Comment: Name Collection Type:: Clean-Voided Midstream Performed By: #### A DDONUAPLUS, CUU, UHCG #### [facility] [address] [place] [id number] [facility] XR Abdomen 1 Viewon 09-04-19 24 XR [...] mGy = n/a DAP = n/a Normal [facility] BMPon 09-03-2023 Anion gap [Moles/Vol] 12 mmol/L Normal 6-16 [facility] Comment on above: Performed By: #### 2 [id number] #### [facility] [address] [place] [address] Calcium [Mass/Vol] 8.9 mg/dL Normal 8.9-11.1 [facility] Comment on above: Performed By: #### 2 [id number] #### [facility] [address] [place] [address] Chloride [Moles/Vol] 105 mmol/L Normal 101-111 [facility] Comment on above: Performed By: #### 2 [id number] #### [facility] [address] [place] [address] CO2 [Moles/Vol] 25 mmol/L Normal 21-31 [facility] Comment on above: Performed By: #### 2 [id number] #### [facility] [address] [place] [address] Creatinine [Mass/Vol] 0.9 mg/dL Normal 0.5-1.3 [facility] Comment on above: Performed By: #### 2 [id number] #### [facility] [address] [place] [address] Glucose [Mass/Vol] 89 mg/dL Normal 55-199 [facility] Comment on above: Performed By: #### 2 [id number] #### [facility] [address] [place] [address] Potassium [Moles/Vol] 3.9 mmol/L Normal 3.5-5.3 [facility] Comment on above: Performed By: #### 2 [id number] #### [facility] [address] [place] [address] Sodium [Moles/Vol] 138 mmol/L Normal 135-145 [facility] Comment on above: Performed By: #### 2 [id number] #### [facility] [address] [place] [address] Urea nitrogen [Mass/Vol] 19 mg/dL Normal 5-21 [facility] Comment on above: Performed By: #### 2 [id number] #### [facility] [address] [place] [address] Urea nitrogen/Creatinine [Mass ratio] 21 No Units High 10-20 [facility] Comment on above: Performed By: #### 2 [id number] #### [facility] [address] [place] [address] BhCG Quanton 09-03-2023 HCG.beta subunit Qn m[IU]/mL Normal 1-3 [facility] Comment on above: Result Comment: 'F N ON < 1 - 3' ' 0.2 - 1 WEEK = 5 TO 50' ' 1 - 2 WEEKS = 50 - 500' ' 2 - 3 WEEKS = 100 - 5000' ' 3 - 4 WEEKS = 500 - 94937' ' 4 - 5 WEEKS = 1000 - 95504' ' 5 - 6 WEEKS = 05851 - 306655' ' 6 - 8 WEEKS = 99754 - 556178' ' 8 - 12 WEEKS = 83467 - 285586' Performed By: #### 2 [id number] #### [facility] [address] [place] [address] CBC w/ Auto Diffon 4 Basophils/100 WBC (Bld) 0.8 % Normal 0.0-2.0 [facility] Comment on above: Performed By: #### 2 [id number] #### [facility] [address] [place] [address] Basophils/Leukocytes Auto (Bld) [Pure # fraction] 0.1 E9/L Normal 0.0-0.2 [facility] Comment on above: Performed By: #### 2 [id number] #### [facility] [address] [place] [address] Eosinophils (Bld) [#/Vol] 0.2 E9/L Normal 0.0-0.5 [facility] Comment on above: Performed By: #### 2 [id number] #### [facility] [address] [place] [address] Eosinophils/100 WBC (Bld) 2.0 % Normal 0.0-8.0 [facility] Comment on above: Performed By: #### 2 [id number] #### [facility] [address] [place] [address] Erythrocyte distribution width (RBC) [Ratio] 13.1 % Normal 10.9-14.2 [facility] Comment on above: Performed By: #### 2 [id number] #### [facility] [address] [place] [address] Hematocrit (Bld) [Volume fraction] 37.6 % Normal 34.0-46.0 [facility] Comment on above: Performed By: #### 2 [id number] #### [facility] [address] [place] [address] Hemoglobin (Bld) [Mass/Vol] 12.5 g/dL Normal 12.0-16.0 [facility] Comment on above: Performed By: #### 2 [id number] #### [facility] [address] [place] [address] Lymphocytes (Bld) [#/Vol] 4.4 E9/L High 1.0-4.0 [facility] Comment on above: Performed By: #### 2 [id number] #### [facility] [address] [place] [address] Lymphocytes/100 WBC (Bld) 37.3 % Normal 14.0-50.0 [facility] Comment on above: Performed By: #### 2 [id number] #### [facility] [address] [place] [address] MCH (RBC) [Entitic mass] 29.7 pg Normal 27.0-34.0 [facility] Comment on above: Performed By: #### 2 [id number] #### [facility] [address] [place] [address] MCHC (RBC) [Mass/Vol] 33.2 g/dL Normal 31.4-36.0 [facility] Comment on above: Performed By: #### 2 [id number] #### [facility] [address] [place] [address] MCV (RBC) [Entitic vol] 89.4 fL Normal 80.0-100.0 [facility] Comment on above: Performed By: #### 2 [id number] #### [facility] [address] [place] [address] Monocytes (Bld) [#/Vol] 0.7 E9/L Normal 0.2-1.0 [facility] Comment on above: Performed By: #### 2 [id number] #### [facility] [address] [place] [address] Neutrophils (Bld) [#/Vol] 6.4 E9/L Normal 2.0-7.5 [facility] Comment on above: Performed By: #### 2 [id number] #### [facility] [address] [place] [address] Neutrophils/100 WBC (Bld) 53.9 % Normal 36.0-75.0 [facility] Comment on above: Performed By: #### 2 [id number] #### [facility] [address] [place] [address] Platelet mean volume (Bld) [Entitic vol] 7.6 fL Normal 6.4-10.8 [facility] Comment on above: Performed By: #### 2 [id number] #### [facility] [address] [place] [address] Platelets (Bld) [#/Vol] 233.0 E9/L Normal 150.0-500. 0 [facility] Comment on above: Performed By: #### 2 [id number] #### [facility] [address] [place] [address] RBC (Bld) [#/Vol] 4.2 E12/L Low 4.3-5.9 [facility] Comment on above: Performed By: #### 2 [id number] #### [facility] [address] [place] [address] WBC corrected for nucl RBC Auto (Bld) [#/Vol] 11.9 E9/L High 4.0-11.0 [facility] Comment on above: Performed By: #### 2 [id number] #### [facility] [address] [place] [address] CHEMISTRYOrdered By: SYSTEM SYSTEM on 09-03-2023 Anion [...] 3 - 4 WEEKS = 500 - 58236' ' 4 - 5 WEEKS = 1000 - 07193' ' 5 - 6 WEEKS = 97406 - 657354' ' 6 - 8 WEEKS = 99572 - 460191' ' 8 - 12 WEEKS = 46127 - 325451' Potassium [Moles/Vol] 3.9 mmol/L Normal 3.5 - 5.3 mmol/L [facility] Sodium [Moles/Vol] 138 mmol/L Normal 135 - 145 mmol/L [facility] Urea nitrogen [Mass/Vol] 19 mg/dL Normal 5 - 21 mg/dL [facility] Urea nitrogen/Creatinine [Mass ratio] 21 mg/mg High 10 - 20 [facility] ED Clinical Summaryon 2023 ED Clinical Summary ED Clinical Summary [address] [address] ED Clinical Summary Person Information Name: TRACIE SAMUELS [facility] Age: 33 Years : 1990 Sex: Female Language: Tuvaluan PCP: KATLIN FRENANDEZ DO Marital Status: Single Visit Id: Visit [...] 09/03/2023 22:12:36 09/03/2023 22:12:36 09/03/2023 22:12:36 ADDRESS: [address] [place] [address] [address] [facility] [id number] [facility] DOC NOTES: MEDICAL INFORMATION: Prescriptions Given: New [...] mg Tab) (more content not included)... Normal [facility] ED Note-Nursingon 09-03-2023 ED Note-Nursing ED Note-Nursing Physician at bedside to review results with pt. took x5 to arouse pt awake. Pt says pain is 8/10. Normal [facility] ED Note-Physicianon 09-03-19 ED Note-Physician ED [...] and Complexity of Problems Differential Diagnosis: [] [facility] Data External documents reviewed: [] My EKG [...] Oral, q6hr (more content not included)... Normal [facility] Comment on above: Result Comment: Elec tronically Signed By: Jorge Oliva DO\.br\Date and Time Signed: 09/03/23 22:28 EDT ED Patient Summaryon 024 ED Patient Summary ED Patient Summary [address] [address] Patient Discharge Instructions Person Information Name: TRACIE SAMUELS Age: 33 Years Arrival Date: 09/03/2023 20:39:54 Discharge Diagnosis: Constipation; Flank pain; Renal colic Primary Care Physician: KATLIN FERNANDEZ DO Provider Information Primary Provider: Jorge Oliva DO Advanced Assistant Therapy Aide:None The exam and treatment you received in the Emergency Department were for an urgent problem and are not intended as complete care. It is important that you follow up with a doctor, nurse practitioner, or physician?s assistant therapy aide for ongoing care. If your symptoms become worse or you do not improve as expected and you are unable to reach your usual health care provider, you should return to the Emergency Department. We are available 24 hours a day. TRACIE SAMUELS has been given the following list of patient education materials, prescriptions and follow-up instructions: Follow-up Instructions: With: Address: When: Yanick Bolivar [address] [place] [address] In 3 days 09/06/2023 With: Address: When: KATLIN FERNANDEZ [address] [place] [address] [facility] () In 3 days 09/06/2023 Comments: Take the [...] participating provider. Patient Education Materials: Constipation, Adult, Wy[place]-ll-Kccs A MESSAGE TO ALL PATIENTS REGARDING OPIOIDS PRESCRIPTION OPIOIDS: WHAT YOU NEED TO KNOW Prescription opioids can be used to help relieve rtowfqtf-ak-gifcts pain and are often prescribed following a [...] unused presc (more content not included)... Normal [facility] HEMATOLOGYOrdered By: SYSTEM SYSTEM on 09-03-2023 [...] 24 Bilirubin Ql (U) Negative Normal Negative [facility] Comment on above: Performed By: #### 4 [id number] #### [facility] [address] [place] [address] Clarity (U) Clear Normal Clear [facility] Comment on above: Performed By: #### 4 [id number] #### [facility] [address] [place] [address] Color (U) Light-Yellow Normal Yellow [facility] Comment on above: Result Comment: Micr oscopic readings are only performed on those samples that meet specific criteria set forth by [facility]. Performed By: #### 4 [id number] #### [facility] [address] [place] [address] Epithelial cells.squamous Auto (Urine sed) [#/Area] 5-8 Invalid Interpretation Code [facility] Comment on above: Performed By: #### 4 [id number] #### [facility] [address] [place] [address] Glucose Ql (U) Negative Normal Negative [facility] Comment on above: Performed By: #### 4 [id number] #### [facility] [address] [place] [address] Hemoglobin Auto test strip (U) [Mass/Vol] 1+ mg/dL Abnormal Negative [facility] Comment on above: Performed By: #### 4 [id number] #### [facility] [address] [place] [address] Ketones Auto test strip Ql (U) Negative Normal Negative [facility] Comment on above: Performed By: #### 4 [id number] #### [facility] [address] [place] [address] Leukocyte esterase Auto test strip Ql (U) Negative Normal Negative [facility] Comment on above: Performed By: #### 4 [id number] #### [facility] [address] [place] [address] Mucus Auto Ql (U) Trace Normal Negative [facility] Comment on above: Performed By: #### 4 [id number] #### [facility] [address] [place] [address] Nitrite Auto test strip Ql (U) Negative Normal Negative [facility] Comment on above: Performed By: #### 4 [id number] #### [facility] [address] [place] [address] pH (U) 6.5 [pH] Invalid Interpretation Code 5.0-9.0 [facility] Comment on above: Performed By: #### 4 [id number] #### [facility] [address] [place] [address] Protein Ql (U) Negative Normal Negative [facility] Comment on above: Performed By: #### 4 [id number] #### [facility] [address] [place] [address] RBC Ql (U) 4-20 Abnormal 0-3 [facility] Comment on above: Performed By: #### 4 [id number] #### [facility] [address] [place] [address] Specific gravity (U) [Rel density] 1.028 Invalid Interpretation Code 1.005-1.03 0 [facility] Comment on above: Performed By: #### 4 [id number] #### [facility] [address] [place] [address] Urobilinogen (U) [Mass/Vol] Negative Normal Negative [facility] Comment on above: Performed By: #### 4 [id number] #### [facility] [address] [place] [address] WBC Auto (Urine sed) [#/Area] 0-5 Normal 0-5 [facility] Comment on above: Performed By: #### 4 [id number] #### [facility] [address] [place] [address] Type of Urine collection method Clean Catch Normal [facility] Comment on above: Performed By: #### 4 [id number] #### [facility] [address] [place] [address] URINALYSISOrdered By: SYSTEM SYSTEM on 09-03-2023 Bilirubin Ql (U) Negative Normal Negativemg /dL [facility] UA Auto SS Clarity (U) Clear (09/03/23 9:06 PM) Normal Clear [facility] UA Auto SS Color (U) Light-Yellow 1 (09/03/23 9:06 PM) Normal Yellow [facility] UA Auto SS Comment on above: Interpretive Data: M icroscopic readings are only performed on those samples that meet specific criteria set forth by [facility]. Epithelial cells.squamous Auto (Urine sed) [#/Area] 5-8 graded/HPF Invalid Interpretation Code [facility] UA Auto SS Glucose Ql (U) Negative Normal Negativemg /dL [facility] UA Auto SS Hemoglobin Auto test strip (U) [Mass/Vol] 1+ mg/dL Invalid Interpretation Code Negativemg /dL [facility]A Auto SS Ketones Auto test strip Ql (U) Negative Normal Negativemg /dL [facility] UA Auto SS Leukocyte esterase Auto test strip Ql (U) Negative Normal NegativeLe u/uL [facility] UA Auto SS Mucus Auto Ql (U) Trace graded/LPF Normal Negati vegr aded/LPF [facility] UA Auto SS Nitrite Auto test strip Ql (U) Negative Normal Negativemg /dL [facility] UA Auto SS pH (U) 6.5 *NA* (09/03/23 9:06 PM) Invalid Interpretation Code 5.0 - 9.0 [facility] UA Auto SS Protein Ql (U) Negative Normal Negativemg /dL [facility] UA Auto SS RBC Ql (U) 4-20 graded/HPF Invalid Interpretation Code 0-3graded/ HPF [facility] UA Auto SS Specific gravity (U) [Rel density] 1.028 *NA* (09/03/23 9:06 PM) Invalid Interpretation Code 1.005 - 1.030 [facility] UA Auto SS Urobilinogen (U) [Mass/Vol] Negative Normal Negativemg /dL [facility] UA Auto SS WBC Auto (Urine sed) [#/Area] 0-5 graded/HPF Normal 0-5graded/ HPF [facility] UA Auto SS URINALYSISOrdered By: Riddhi Oliva on 09-03-2023 UA Spec Desc Clean Catch (09/03/23 9:06 PM) Normal [facility] UA Auto SS eGFRon 09-03-2023 eGFR 85 mL/min/1.73 m2 Normal >=59 [facility] Comment on above: Order Comment: Order added by Discern Expert. Performed By: #### 1 [id number] #### [facility] [address] [place] [address] CT Abdomen/Pelvis w/o Contra ston 08-28-2023 CT Abdomen/Pelvis w/o Contrast Exam Date/Time: [...] Oral contrast amount in ml's: 0 Normal [facility] ED Note-Physicianon 08-28-19 ED Note-Physician ED Note-Physician [...] and Complexity of Problems Differential Diagnosis: [] [facility] Data External documents reviewed: [] My EKG [...] day(s), # 28 cap(s), Refills(s) 0, Pharmacy: [facility], 150, cm, 08/27/23 19:10:00 EDT, Height/Length [...] Nausea/Vomiting, # 12 tab(s), Refills(s) 0, Pharmacy: [facility], 150, cm, 08/27/23 19:10:00 EDT, Height/Length [...] 1,000 mL, (more content not included)... Normal [facility] Comment on above: Result Comment: Elec tronically Signed By: Peter Lopez PA-C\.br\Date and Time Signed: 08/27/23 23:25 EDT\.br\Electronically Co-Signed [...] FATIMAH Technologist: ADRIA Technical Comments Radiation Dose: julito Hayden in mGy = n/a DAP = n/a Normal [facility] B hCG [place] 08-27-2023 Beta HCG ( test) Ql Negative Normal [facility] Comment on above: Performed By: #### 2 [id number] #### [facility] [address] [place] [address] BMPon 08-27-2023 Anion gap [Moles/Vol] 10 mmol/L Normal 6-16 [facility] Comment on above: Performed By: #### 2 [id number] #### [facility] [address] [facility] [address] Calcium [Mass/Vol] 8.7 mg/dL Low 8.9-11.1 [facility] Comment on above: Performed By: #### 2 [id number] #### [facility] [address] [place] [address] Chloride [Moles/Vol] 106 mmol/L Normal 101-111 [facility] Comment on above: Performed By: #### 2 [id number] #### [facility] [address] [place] [address] CO2 [Moles/Vol] 27 mmol/L Normal 21-31 [facility] Comment on above: Performed By: #### 2 [id number] #### [facility] [address] [place] [address] Creatinine [Mass/Vol] 0.7 mg/dL Normal 0.5-1.3 [facility] Comment on above: Performed By: #### 2 [id number] #### [facility] [address] [place] [address] Glucose [Mass/Vol] 88 mg/dL Normal 55-199 [facility] Comment on above: Performed By: #### 2 [id number] #### [facility] [address] [place] [address] Potassium [Moles/Vol] 3.9 mmol/L Normal 3.5-5.3 [facility] Comment on above: Performed By: #### 2 [id number] #### [facility] [address] [place] [address] Sodium [Moles/Vol] 139 mmol/L Normal 135-145 [facility] Comment on above: Performed By: #### 2 [id number] #### [facility] [address] [place] [address] Urea nitrogen [Mass/Vol] 9 mg/dL Normal 5-21 [facility] Comment on above: Performed By: #### 2 [id number] #### [facility] [address] [place] [address] Urea nitrogen/Creatinine [Mass ratio] 13 No Units Normal 10-20 [facility] Comment on above: Performed By: #### 2 [id number] #### [facility] [address] [place] [address] CBC w/ Auto Diffon 4 Basophils/100 WBC (Bld) 0.6 % Normal 0.0-2.0 [facility] Comment on above: Performed By: #### 2 [id number] #### [facility] [address] [place] [address] Basophils/Leukocytes Auto (Bld) [Pure # fraction] 0.1 E9/L Normal 0.0-0.2 [facility] Comment on above: Performed By: #### 2 [id number] #### [facility] [address] [place] [address] Eosinophils (Bld) [#/Vol] 0.1 E9/L Normal 0.0-0.5 [facility] Comment on above: Performed By: #### 2 [id number] #### [facility] [address] [place] [address] Eosinophils/100 WBC (Bld) 1.0 % Normal 0.0-8.0 [facility] Comment on above: Performed By: #### 2 [id number] #### [facility] [address] [place] [address] Erythrocyte distribution width (RBC) [Ratio] 13.4 % Normal 10.9-14.2 [facility] Comment on above: Performed By: #### 2 [id number] #### [facility] [address] [place] [address] Hematocrit (Bld) [Volume fraction] 38.4 % Normal 34.0-46.0 [facility] Comment on above: Performed By: #### 2 [id number] #### [facility] [address] [place] [address] Hemoglobin (Bld) [Mass/Vol] 12.6 g/dL Normal 12.0-16.0 [facility] Comment on above: Performed By: #### 2 [id number] #### [facility] [address] [place] [address] Lymphocytes (Bld) [#/Vol] 3.9 E9/L Normal 1.0-4.0 [facility] Comment on above: Performed By: #### 2 [id number] #### [facility] [address] [place] [address] Lymphocytes/100 WBC (Bld) 34.3 % Normal 14.0-50.0 [facility] Comment on above: Performed By: #### 2 [id number] #### [facility] [address] [place] [address] MCH (RBC) [Entitic mass] 29.4 pg Normal 27.0-34.0 [facility] Comment on above: Performed By: #### 2 [id number] #### [facility] [address] [place] [address] MCHC (RBC) [Mass/Vol] 32.9 g/dL Normal 31.4-36.0 [facility] Comment on above: Performed By: #### 2 [id number] #### [facility] [address] [place] [address] MCV (RBC) [Entitic vol] 89.4 fL Normal 80.0-100.0 [facility] Comment on above: Performed By: #### 2 [id number] #### [facility] [address] [place] [address] Monocytes (Bld) [#/Vol] 0.7 E9/L Normal 0.2-1.0 [facility] Comment on above: Performed By: #### 2 [id number] #### [facility] [address] [place] [address] Neutrophils (Bld) [#/Vol] 6.6 E9/L Normal 2.0-7.5 [facility] Comment on above: Performed By: #### 2 [id number] #### [facility] [address] [place] [address] Neutrophils/100 WBC (Bld) 57.9 % Normal 36.0-75.0 [facility] Comment on above: Performed By: #### 2 [id number] #### [facility] [address] [place] [address] Platelet mean volume (Bld) [Entitic vol] 7.5 fL Normal 6.4-10.8 [facility] Comment on above: Performed By: #### 2 [id number] #### [facility] [address] [place] [address] Platelets (Bld) [#/Vol] 241.0 E9/L Normal 150.0-500. 0 [facility] Comment on above: Performed By: #### 2 [id number] #### [facility] [address] [place] [address] RBC (Bld) [#/Vol] 4.3 E12/L Normal 4.3-5.9 [facility] Comment on above: Performed By: #### 2 [id number] #### [facility] [address] [place] [address] WBC corrected for nucl RBC Auto (Bld) [#/Vol] 11.5 E9/L High 4.0-11.0 [facility] Comment on above: Performed By: #### 2 [id number] #### [facility] [address] [place] [address] CHEMISTRYOrdered By: SYSTEM SYSTEM on 08-27-2023 Albumin [...] Sensitivity Troponin I Instructions For Use, Sharon Catherine, September 2017) Urea nitrogen [Mass/Vol] 9 mg/dL Normal 5 - 21 mg/dL [facility] Urea nitrogen/Creatinine [Mass ratio] 13 mg/mg Normal 10 - 20 [facility] COAGULATIONOrdered By: Rufino Gandhi on 08-27-2023 aPTT Coag (PPP) [Time] 28.5 s Normal 25.1 - 36.5 second(s) [facility] Auto Coag Comment on above: Interpretive Data: P arameter 15 days - 4 weeks 1 - [...] the same coagulation reagent and instrumentation as [facility]. Currently there are no coagulation studies available worldwide for children to 14 days, and no normal ranges. Heparin therapeutic range (represented by Anti-Factor Xa activity of 0.2 - 0.4 U/mL) corresponds to PTT of 56.6 - 109.0 sec. INR Coag (PPP) [Relative time] 1.07 {INR} Invalid Interpretation Code [facility] Coag Comment on above: Interpretive Data: I NR results are specifically intended to assess patients stabilized on long-term Anticoagulation therapy suggested INR s Less Intensive Anticoagulation 2.0 3.0 Conventional Range 3.0 4.5 PT Coag (PPP) [Time] 12.0 s Normal 9.4 - 1 2.5 second(s) [facility] Auto Coag Comment on above: Interpretive Data: [...] the same coagulation reagent and instrumentation as [facility]. Currently there are no coagulation studies available worldwide for children to 14 days, and no normal ranges. ED Clinical Summaryon 2023 ED Clinical Summary ED Clinical Summary [place] [id number] ED Clinical Summary Person Information Name: TRACIE SAMUELS [facility] Age: 33 Years : 1990 Sex: Female Language: Tuvaluan PCP: KATLIN FERNANDEZ DO Marital Status: Single [...] 08/27/2023 23:24:04 08/27/2023 23:24:04 08/27/2023 23:24:04 ADDRESS: [address] [place] [address] [address] [facility] [id number] PHYS DOC NOTES: MEDICAL INFORMATION: Prescriptions Given: Medications to Continue Taking That Have Changed [facility], [address], [place] [id number], [phone] START: dicyclomine (Bentyl 10 mg Cap) 1 [...] Tab) polyethy (more content not included)... Normal [facility] ED Note-Nursingon 08-27-2023 ED Note-Nursing ED Note-Nursing Patient sent home with a urine strainer and specimen cups. Patient given directions on how to strain her urine each time, states an understanding. Normal [facility] ED Patient Summaryon 024 ED Patient Summary ED Patient Summary [place] [id number] Patient Discharge Instructions Person Information Name: TRACIE SAMUELS Age: 33 Years Arrival Date: 08/27/2023 19:03:58 Discharge Diagnosis: Left flank pain; Stone in kidney Primary Care Physician: KATLIN FERNANDEZ DO Provider Information Primary Provider: Jorge Oliva DO Advanced Assistant Therapy Aide:None The exam and treatment you received in the Emergency Department were for an urgent problem and are not intended as complete care. It is important that you follow up with a doctor, nurse practitioner, or physician?s assistant therapy aide for ongoing care. If your symptoms become worse or you do not improve as expected and you are unable to reach your usual health care provider, you should return to the Emergency Department. We are available 24 hours a day. TRACIE SAMUELS has been given the following list of patient education materials, prescriptions and follow-up instructions: Follow-up Instructions: With: Address: When: KATLIN FERNANDEZ [address] [place] [address] [facility] () In 3 days 08/30/2023 Comments: Call Dr [...] opioids can be used to help relieve [id number] pain and are often prescribed following a [...] be struggling with addiction, tell your health primary care sales representative and ask for guidance or call [facility] (more content not included)... Normal [facility] HEMATOLOGYOrdered By: SYSTEM SYSTEM on 08-27-2023 [...] 08-27-2023 Albumin [Mass/Vol] 4.0 g/dL Normal 3.3-5.0 [facility] Comment on above: Performed By: #### 2 [id number] #### [facility] [address] [place] [address] Albumin/Globulin (S) [Mass conc ratio] 1.3 Normal 1.1-2.2 [facility] Comment on above: Performed By: #### 2 [id number] #### [facility] [address] [place] [address] ALP [Catalytic activity/Vol] 90 Int._Unit/L Normal 21-98 [facility] Comment on above: Performed By: #### 2 [id number] #### [facility] [address] [place] [address] ALT No additional P-5'-P [Catalytic activity/Vol] 13 Int._Unit/L Normal 6-46 [facility] Comment on above: Performed By: #### 2 [id number] #### [facility] [address] [place] [address] AST [Catalytic activity/Vol] 16 Int._Unit/L Normal 5-43 [facility] Comment on above: Performed By: #### 2 [id number] #### [facility] [address] [place] [address] Bilirubin [Mass/Vol] 0.5 mg/dL Normal 0.0-1.1 [facility] Comment on above: Performed By: #### 2 [id number] #### [facility] [address] [place] [address] Bilirubin.direct [Mass/Vol] 0.1 mg/dL Normal 0.0-0.4 [facility] Comment on above: Performed By: #### 2 [id number] #### [facility] [address] [place] [address] Bilirubin.indirect [Mass or moles/Vol] 0.4 mg/dL Normal 0.1-0.9 [facility] Comment on above: Performed By: #### 2 [id number] #### [facility] [address] [place] [address] Globulin (S) [Mass/Vol] 3.0 g/dL Normal 1.4-4.0 [facility] Comment on above: Performed By: #### 2 [id number] #### [facility] [address] [place] [address] Protein [Mass/Vol] 7.0 g/dL Normal 6.0-7.8 [facility] Comment on above: Performed By: #### 2 [id number] #### [facility] [address] [place] [address] Lipase Levelon 08-27-2023 Lipase [Catalytic activity/Vol] 11 U/L Low 13-58 [facility] Comment on above: Performed By: #### 2 [id number] #### [facility] [address] [place] [address] PT & PTTon 08-27-2023 aPTT Coag (PPP) [Time] 28.5 second(s) Normal 25.1-36.5 [facility] Comment on above: Result Comment: Para [...] the same coagulation reagent and instrumentation as [facility]. Currently there are no coagulation studies available worldwide for children to 14 days, and no normal ranges. Heparin therapeutic range (represented by Anti-Factor Xa activity of 0.2 - 0.4 U/mL) corresponds to PTT of 56.6 - 109.0 sec. Performed By: #### 1 [id number] #### [facility] [address] [place] [address] INR Coag (PPP) [Relative time] 1.07 {INR} Invalid Interpretation Code [facility] Comment on above: Result Comment: INR results are specifically intended to assess patients stabilized on long-term Anticoagulation therapy suggested INR?s ?Less Intensive Anticoagulation? 2.0 ? 3.0 Conventional Range 3.0 ? 4.5 Performed By: #### 1 [id number] #### [facility] [address] [place] [address] PT Coag (PPP) [Time] 12.0 second(s) Normal 9.4-12.5 [facility] Comment on above: Result Comment: 15 [...] the same coagulation reagent and instrumentation as [facility]. Currently there are no coagulation studies available worldwide for children to 14 days, and no normal ranges. Performed By: #### 1 [id number] #### [facility] [address] [place] [address] SEROLOGYOrdered By: Tamica Chowdhury on 08-27-2023 Beta HCG ( test) Ql Negative (08/27/23 7:55 PM) Normal [facility] Man Sero Troponin 0 Hr.on 08-27-2023 Troponin HS 2.90 pg/mL Low 10.10-27.1 0 [facility] Comment on above: Result Comment: The 95% CI (Confidence Interval) PPV (Positive Predictive Value) for myocardial infarction in females is 38 pg/mL, in males 51 pg/mL. The results should be used in conjunction with clinical conditions of myocardial infarction. (Access High Sensitivity Troponin I Instructions For Use, Sharon [employer], September 2017) Performed By: #### 1 [id number] #### [facility] [address] [place] [address] UA with Cult Rflxon 08-27-19 24 Bilirubin Ql (U) Negative Normal Negative [facility] Comment on above: Performed By: #### 4 [id number] #### [facility] [address] [place] [address] Clarity (U) Turbid Abnormal Clear [facility] Comment on above: Performed By: #### 4 [id number] #### [facility] [address] [place] [address] Color (U) Light-Yellow Normal Yellow [facility] Comment on above: Result Comment: Micr oscopic readings are only performed on those samples that meet specific criteria set forth by [facility]. Performed By: #### 4 [id number] #### [facility] [address] [place] [address] Epithelial cells.squamous Auto (Urine sed) [#/Area] 9-10 Invalid Interpretation Code [facility] Comment on above: Performed By: #### 4 [id number] #### [facility] [address] [place] [address] Glucose Ql (U) Negative Normal Negative [facility] Comment on above: Performed By: #### 4 [id number] #### [facility] [facility] [address] [place] [address] Hemoglobin Auto test strip (U) [Mass/Vol] 1+ mg/dL Abnormal Negative [facility] Comment on above: Performed By: #### 4 [id number] #### [facility] [address] [place] [address] Ketones Auto test strip Ql (U) Negative Normal Negative [facility] Comment on above: Performed By: #### 4 [id number] #### [facility] [address] [place] [address] Leukocyte esterase Auto test strip Ql (U) Negative Normal Negative [facility] Comment on above: Performed By: #### 4 [id number] #### [facility] [address] [place] [address] Mucus Auto Ql (U) Trace Normal Negative [facility] Comment on above: Performed By: #### 4 [id number] #### [facility] [address] [place] [address] Nitrite Auto test strip Ql (U) Negative Normal Negative [facility] Comment on above: Performed By: #### 4 [id number] #### [facility] [address] [place] [address] pH (U) 5.5 [pH] Invalid Interpretation Code 5.0-9.0 [facility] Comment on above: Performed By: #### 4 [id number] #### [facility] [address] [place] [address] Protein Ql (U) Negative Normal Negative [facility] Comment on above: Performed By: #### 4 [id number] #### [facility] [address] [place] [address] RBC Ql (U) 0-3 Normal 0-3 [facility] Comment on above: Performed By: #### 4 [id number] #### [facility] [address] [place] [address] Specific gravity (U) [Rel density] 1.018 Invalid Interpretation Code 1.005-1.03 0 [facility] Comment on above: Performed By: #### 4 [id number] #### [facility] [address] [place] [address] Urobilinogen (U) [Mass/Vol] Negative Normal Negative [facility] Comment on above: Performed By: #### 4 [id number] #### [facility] [address] [place] [address] WBC Auto (Urine sed) [#/Area] 0-5 Normal 0-5 [facility] Comment on above: Performed By: #### 4 [id number] #### [facility] [address] [place] [address] Type of Urine collection method Clean Catch Normal [facility] Comment on above: Performed By: #### 4 [id number] #### [facility] [address] [place] [address] URINALYSISOrdered By: SYSTEM SYSTEM on 08-27-2023 Bilirubin Ql (U) Negative Normal Negativemg /dL [facility] UA Auto SS Clarity (U) Turbid *ABN* (08/27/23 8:52 PM) Invalid Interpretation Code Clear [facility] UA Auto SS Color (U) Light-Yellow 1 (08/27/23 8:52 PM) Normal Yellow [facility] UA Auto SS Comment on above: Interpretive Data: M icroscopic readings are only performed on those samples that meet specific criteria set forth by [facility]. Epithelial cells.squamous Auto (Urine sed) [...] Urobilinogen (U) [Mass/Vol] Negative Normal Negativemg /dL [facility] UA Auto SS WBC Auto (Urine sed) [#/Area] 0-5 graded/HPF Normal 0-5graded/ HPF [facility] UA Auto SS URINALYSISOrdered By: Peter fierro on 08-27-2023 UA Spec Desc Clean Catch (08/27/23 8:52 PM) Normal [facility] UA Auto SS eGFRon 08-27-2023 eGFR 115 mL/min/1.73 m2 Normal >=59 [facility] Comment on above: Order Comment: Order added by Discern Expert. Performed By: #### 1 [id number] #### [facility] [address] [place] [address] ED Clinical Summaryon 2023 ED Clinical Summary ED Clinical Summary [address] [address] ED Clinical Summary Person Information Name: TRACIE SAMUELS [facility] Age: 33 Years : 1990 Sex: Female Language: Tuvaluan PCP: KATLIN FERNANDEZ DO Marital Status: Single [...] 08/26/2023 11:11:08 08/26/2023 11:11:08 08/26/2023 11:11:08 ADDRESS: [address] [place] [address] [address] [facility] [id number] [facility] DOC NOTES: MEDICAL INFORMATION: Prescriptions Given: Medications [...] Follow up: With: Address: When: KATLIN FERNANDEZ [address] [place] [id number] Topmission (more content not included)... Normal [facility] ED Note-Physicianon 08-26-19 ED Note-Physician ED [...] vomiting. Does have photophobia. She been taking tgvh-[id number] Aleve without relief. No precipitating trauma. She [...] KATLIN FERNANDEZ In 3 days 08/29/2023 EDT [address] [id number] [facility] (1) Additional Instructions: Patient Education Chronic Migraine [...] made to ensure accuracy, however, inadvertently computerized pharmacy tech customer service mistakes may be present. Appropriate healthcare PPE [...] 500 mg (more content not included)... Normal [facility] Comment on above: Result Comment: Elec tronically Signed By: Jax Lassiter PA-C\.br\Date and Time Signed: 08/26/23 11:35 EDT\.br\Electronically Co-Signed By: Jass Meek DO\.br\Date and Time Co-Signed: 08/26/23 15:01 EDT ED Patient Summaryon 024 ED Patient Summary ED Patient Summary [address] [address] Patient Discharge Instructions Person Information Name: TRACIE SAMUELS Age: 33 Years Arrival Date: 08/26/2023 09:11:14 Discharge Diagnosis: Migraine headache Primary Care Physician: KATLIN FERNANDEZ DO Provider Information Primary Provider: Jass Meek DO Advanced Assistant Therapy Aide:Jax Lassiter PA-C The exam and treatment you received in the Emergency Department were for an urgent problem and are not intended as complete care. It is important that you follow up with a doctor, nurse practitioner, or physician?s assistant therapy aide for ongoing care. If your symptoms become worse or you do not improve as expected and you are unable to reach your usual health care provider, you should return to the Emergency Department. We are available 24 hours a day. TRACIE SAMUELS has been given the following list of patient education materials, prescriptions and follow-up instructions: Follow-up Instructions: With: Address: When: KATLIN FERNANDEZ [address] [place] [phone] [facility] () In 3 days 08/29/2023 In the event that this physician does not participate in your insurance network, please consult with your insurance company to find a nearby participating provider. Patient Education Materials: Chronic Migraine Headache A MESSAGE TO ALL PATIENTS REGARDING OPIOIDS PRESCRIPTION OPIOIDS: WHAT YOU NEED TO KNOW Prescription opioids can be used to help relieve tnurzaaa-wp-wjwmwt pain and are often prescribed following a [...] be struggling with addiction, tell your health primary care sales representative and ask for guidance or call [employer]?S National Helpline at 4-705-577-HELP. (more content not included)... Normal [facility] Alanine aminotransferase [En zymatic activity/volume] in Serum or PlasmaOrdered By: Kanu Brush on 07-21-2023 ALT [Catalytic activity/Vol] 18 U/L Normal 7-52 [facility] Comment on above: Performed By: #### C UU, UHCG, ADDONUAPLUS #### [facility] [address] [place] [address] Albumin [Mass/volume] in Ser um or Plasma by Bromocresol green (BCG) dye binding methoOrdered By: Kanu Brush on 07-21-2023 Albumin BCG dye [Mass/Vol] 3.9 g/dL 3.5-5.7 [facility] Alkaline phosphatase [Enzyma tic activity/volume] in Serum or PlasmaOrdered By: Kanu Brush on 07-21-2023 ALP [Catalytic activity/Vol] 109 U/L High 34-104 [facility] Comment on above: Performed By: #### C UU, UHCG, ADDONUAPLUS #### [address] Aspartate aminotransferase [ Enzymatic activity/volume] in Serum or PlasmaOrdered By: Kanu Brush on 07-21-2023 AST [Catalytic activity/Vol] 16 U/L Normal 13-39 [facility] Comment on above: Performed By: #### C UU, UHCG, ADDONUAPLUS #### [address] Automated basophil %Ordered By: Kanu Brush on 07-21-2023 Basophils/100 WBC (Bld) 0.7 % Normal . [facility] Comment on above: Performed By: #### C UU, UHCG, ADDONUAPLUS #### [address] Automated basophil countOrde red By: Kanu Brush on 07-21-2023 Basophils (Bld) [#/Vol] 0.1 10*3/uL Normal 0.0-0.2 [facility] Comment on above: Result Comment: PERF ORMED BY: [place] [address] PATHOLOGIST LICENSED MASSAGE PRACTITIONER JL PERKINS M.D. Performed By: #### C UU, UHCG, ADDONUAPLUS #### [address] Automated blood monocyte cou ntOrdered By: Kanu Brush on 07-21-2023 Monocytes (Bld) [#/Vol] 0.6 10*3/uL Normal 0.0-0.8 [facility] Comment on above: Performed By: #### C UU, UHCG, ADDONUAPLUS #### [address] Automated eosinophil %Ordere d By: Kanu Brush on 07-21-2023 Eosinophils/100 WBC (Bld) 2.4 % Normal . [facility] Comment on above: Performed By: #### C UU, UHCG, ADDONUAPLUS #### [address] Automated eosinophil countOr dered By: Kanu Brush on 07-21-2023 Eosinophils (Bld) [#/Vol] 0.2 10*3/uL Normal 0.0-0.45 [facility] Comment on above: Performed By: #### C UU, UHCG, ADDONUAPLUS #### [address] Automated epithelial cells c ount in urine sediment (number/area)Ordered By: Kanu Brsuh on 07-21-2023 Epithelial cells Auto (Urine sed) [#/Area] 1-2 [HPF] 0-2 [facility] Automated monocyte %Ordered By: Kanu Brush on 07-21-2023 Monocytes/100 WBC (Bld) 5.7 % Normal . [facility] Comment on above: Performed By: #### C UU, UHCG, ADDONUAPLUS #### [address] Automated neutrophil %Ordere d By: Kanu Brush on 07-21-2023 Neutrophils/100 WBC (Bld) 55.4 % Normal . [facility] Comment on above: Performed By: #### C UU, UHCG, ADDONUAPLUS #### [facility] [address] Bacteria [Presence] in Urine by AutomatedOrdered By: Kanu Brush on 07-21-2023 Bacteria Auto Ql (U) None seen [HPF] None Seen [facility] Basic Metabolic Panelon 06-27 Creatinine Clr Calc Pharmacy 89.28 Normal [facility] Comment on above: Performed By: #### C UU, UHCG, ADDONUAPLUS #### [facility] [address] GFR/1.73 sq M.predicted MDRD (S/P/Bld) [Vol rate/Area] mL/min/{1.73_m2} Normal [facility] Comment on above: Performed By: #### C UU, UHCG, ADDONUAPLUS #### [facility] [address] [place] [address] Bilirubin Test strip Ql (U)O rdered By: Kanu Brush on 07-21-2023 Bilirubin Ql (U) Negative Negative [facility] Bilirubin.direct [Mass/volum e] in Serum or PlasmaOrdered By: Kanu Brush on 07-21-2023 Bilirubin.direct [Mass/Vol] 0.10 mg/dL 0.03-0.18 [facility] Bilirubin.total [Mass/volume ] in Serum or PlasmaOrdered By: Kanu Brush on 07-21-2023 Bilirubin [Mass/Vol] 0.3 mg/dL Normal 0.3-1.0 [facility] Comment on above: Performed By: #### C UU, UHCG, ADDONUAPLUS #### [facility] [address] [place] [address] [place] Calcium [Mass/volume] in Ser um or PlasmaOrdered By: Kanu Brush on 07-21-2023 Calcium [Mass/Vol] 8.8 mg/dL Normal 8.6-10.3 [facility] Comment on above: Performed By: #### C UU, UHCG, ADDONUAPLUS #### [facility] [address] [place] [address] Carbon dioxide, total [Moles /volume] in Serum or PlasmaOrdered By: Kanu Brush on 07-21-2023 CO2 [Moles/Vol] 25.4 mmol/L Normal 21.0-31.0 [facility] Comment on above: Performed By: #### C UU, UHCG, ADDONUAPLUS #### [address] Chloride [Moles/volume] in S phoebe or PlasmaOrdered By: Kanu Brush on 07-21-2023 Chloride [Moles/Vol] 107 mmol/L Normal 98-107 [facility] Comment on above: Performed By: #### C UU, UHCG, ADDONUAPLUS #### [address] Color of Urine by AutoOrdere d By: Kanu Brush on 07-21-2023 Color (U) Yellow Normal Yellow [facility] Comment on above: Order Comment: Name Collection Type:: Clean-Voided Midstream Performed By: #### C UU, UHCG, ADDONUAPLUS #### [address] Complete Blood Count Auto Di ffon 07-21-2023 Mean Corpuscular HGB Conc 33.8 g/dL Normal 32.0-35.0 [facility] Comment on above: Performed By: #### C UU, UHCG, ADDONUAPLUS #### [place] [address] [place] Monocytes/100 WBC (Bld) 19.26 % Normal 0.00-20.00 [facility] Comment on above: Performed By: #### C UU, UHCG, ADDONUAPLUS #### [place] [address] [place] NRBC% 0.1 /100{WBC} Normal 0-0.5 [facility] Comment on above: Performed By: #### C UU, UHCG, ADDONUAPLUS #### [place] [address] [place] Creatinine [Mass/volume] in Serum or PlasmaOrdered By: Kanu Brush on 07-21-2023 Creatinine [Mass/Vol] 0.89 mg/dL Normal 0.60-1.20 [facility] Comment on above: Performed By: #### C UU, UHCG, ADDONUAPLUS #### [place] [address] [place] Dipstick and Microscopicon 0 07-21-2023 Appearance (U) Clear Normal Clear [facility] Comment on above: Order Comment: Name Collection Type:: Clean-Voided Midstream Performed By: #### C UU, UHCG, ADDONUAPLUS #### [place] [address] [place] Bacteria,Urine None Seen Normal None Seen [facility] Comment on above: Order Comment: Name Collection Type:: Clean-Voided Midstream Performed By: #### C UU, UHCG, ADDONUAPLUS #### [address] Bilirubin,Urine Negative Normal Negative [facility] Comment on above: Order Comment: Name Collection Type:: Clean-Voided Midstream Performed By: #### C UU, UHCG, ADDONUAPLUS #### [address] Glucose Ql (U) Normal Normal Normal [facility] Comment on above: Order Comment: Name Collection Type:: Clean-Voided Midstream Performed By: #### C UU, UHCG, ADDONUAPLUS #### [place] [address] [place] Hyaline Casts,Urine 0-8 Normal 0-8 [facility] Comment on above: Order Comment: Name Collection Type:: Clean-Voided Midstream Performed By: #### C UU, UHCG, ADDONUAPLUS #### [address] Ketones Ql (U) Negative Normal Negative [facility] Comment on above: Order Comment: Name Collection Type:: Clean-Voided Midstream Performed By: #### C UU, UHCG, ADDONUAPLUS #### [address] Leukocyte esterase Test strip Ql (U) 2+ High Negative [facility] Comment on above: Order Comment: Name Collection Type:: Clean-Voided Midstream Performed By: #### C UU, UHCG, ADDONUAPLUS #### [place] [address] [place] Nitrite,Urine Negative Normal Negative [facility] Comment on above: Order Comment: Name Collection Type:: Clean-Voided Midstream Performed By: #### C UU, UHCG, ADDONUAPLUS #### [address] Occult Blood,Urine Trace High Negative [facility] Comment on above: Order Comment: Name Collection Type:: Clean-Voided Midstream Performed By: #### C UU, UHCG, ADDONUAPLUS #### [place] [address] [place] Protein,Urine Negative Normal Negative [facility] Comment on above: Order Comment: Name Collection Type:: Clean-Voided Midstream Performed By: #### C UU, UHCG, ADDONUAPLUS #### [address] RBC,Urine 5-9 High 0-4 [facility] Comment on above: Order Comment: Name Collection Type:: Clean-Voided Midstream Performed By: #### C UU, UHCG, ADDONUAPLUS #### [address] Specificy [place],Urine 1.015 Normal 1.001-1.03 0 [facility] Comment on above: Order Comment: Name Collection Type:: Clean-Voided Midstream Performed By: #### C UU, UHCG, ADDONUAPLUS #### [place] [address] [place] Squamous Epithelial Cell,Urine 1-2 Normal 0-2 [facility] Comment on above: Order Comment: Name Collection Type:: Clean-Voided Midstream Performed By: #### C UU, UHCG, ADDONUAPLUS #### [address] Urobilinogen,Urine Normal Normal Normal [facility] Comment on above: Order Comment: Name Collection Type:: Clean-Voided Midstream Performed By: #### C UU, UHCG, ADDONUAPLUS #### [address] WBC,Urine 3-4 Normal 0-4 [facility] Comment on above: Order Comment: Name Collection Type:: Clean-Voided Midstream Performed By: #### C UU, UHCG, ADDONUAPLUS #### [address] Erythrocyte distribution wid th [Ratio] by Automated countOrdered By: Kanu Brush on 07-21-2023 Erythrocyte distribution width (RBC) [Ratio] 13.3 % Normal 11.9-15.3 [facility] Comment on above: Performed By: #### C UU, UHCG, ADDONUAPLUS #### [address] Erythrocytes [#/area] in Uri ne sediment by Automated countOrdered By: Kanu Brush on 07-21-2023 RBC Auto (Urine sed) [#/Area] 5-9 [HPF] High 0-4 [facility] Erythrocytes [#/volume] in B lood by Automated countOrdered By: Kanu Brush on 07-21-2023 RBC (Bld) [#/Vol] 3.99 10*6/uL Normal 3.60-5.00 [facility] Comment on above: Performed By: #### C UU, UHCG, ADDONUAPLUS #### [address] Glucose [Mass/volume] in Ser um or PlasmaOrdered By: Kanu Brush on 07-21-2023 Glucose [Mass/Vol] 98 mg/dL Normal 70-100 [facility] Comment on above: ADA recommended refe rence rangeRandom Glucose Reference Range is dependent on time and content of last meal. Glucose of more than 200 mg/dL in a nonstressed, ambulatory subject supports the diagnosis of Diabetes Mellitus. Result Comment: [place] om Glucose Reference Range is dependent on time and content of last meal. Glucose of more than 200 mg/dL in a nonstressed, ambulatory subject supports the diagnosis of Diabetes Mellitus. ADA recommended reference range Performed By: #### C UU, UHCG, ADDONUAPLUS #### [address] HCG ( test) IA.rapi d Ql (U)Ordered By: Kanu Brush on 07-21-2023 HCG ( test) Ql (U) Negative [facility] HCG,Urineon 07-21-2023 Beta HCG ( test) Ql (U) Negative Normal [facility] Comment on above: Order Comment: Name Collection Type:: Clean-Voided Midstream Result Comment: PERF ORMED BY: [place] [address] PATHOLOGIST LICENSED MASSAGE PRACTITIONER JL PERKINS M.D. Performed By: #### C UU, UHCG, ADDONUAPLUS #### [address] Hematocrit [Volume Fraction] of Blood by Automated countOrdered By: Kanu Brush on 07-21-2023 Hematocrit (Bld) [Volume fraction] 35.5 % Normal 34.0-46.4 [facility] Comment on above: Performed By: #### C UU, UHCG, ADDONUAPLUS #### [address] Hemoglobin [Mass/volume] in BloodOrdered By: Kanu Brush on 07-21-2023 Hemoglobin (Bld) [Mass/Vol] 12.0 g/dL Normal 11.8-15.4 [facility] Comment on above: Performed By: #### C UU, UHCG, ADDONUAPLUS #### [address] Hepatic Panelon 07-21-2023 Albumin [Mass/Vol] 3.9 g/dL Normal 3.5-5.7 [facility] Comment on above: Performed By: #### C UU, UHCG, ADDONUAPLUS #### [facility] [address] Bilirubin,Indirect 0.2 mg/dL Normal [facility] Comment on above: Performed By: #### C UU, UHCG, ADDONUAPLUS #### [facility] [address] Bilirubin.indirect [Mass/Vol] 0.10 mg/dL Normal 0.03-0.18 [facility] Comment on above: Performed By: #### C UU, UHCG, ADDONUAPLUS #### [address] Ketones Auto test strip (U) [Mass/Vol]Ordered By: Kanu Brush on 07-21-2023 Ketones (U) [Mass/Vol] Negative Negative [facility] - UrinalysisOrder ed By: Kanu Brush on 07-21-2023 Hyaline casts LM Ql (Urine sed) 0-8 [LPF] 0-8 [facility] Leukocytes [#/area] in Urine sediment by Automated countOrdered By: Kanu Brush on 07-21-2023 WBC Auto (Urine sed) [#/Area] 3-4 [HPF] 0-4 [facility] Leukocytes [#/volume] correc rachelle for nucleated erythrocytes in Blood by Automated counOrdered By: Kanu Brush on 07-21-2023 WBC corrected for nucl RBC Auto (Bld) [#/Vol] 10.2 10*3/uL 3.8-11.6 [facility] Leukocytes [#/volume] in Blo od by Automated countOrdered By: Kanu Brush on 07-21-2023 WBC (Bld) [#/Vol] 10.2 10*3/uL Normal 3.8-11.6 [facility] Comment on above: Performed By: #### C UU, UHCG, ADDONUAPLUS #### [address] Lipase [Enzymatic activity/v olume] in Serum or PlasmaOrdered By: Kanu Brush on 07-21-2023 Lipase [Catalytic activity/Vol] 20.0 U/L Normal 11.0-82.0 [facility] Comment on above: Result Comment: PERF ORMED BY: [place] [address] PATHOLOGIST LICENSED MASSAGE PRACTITIONER JL PERKINS M.D. Performed By: #### C UU, UHCG, ADDONUAPLUS #### [address] Lymphocytes [#/volume] in Bl ood by Automated countOrdered By: Kanu Brush on 07-21-2023 Lymphocytes (Bld) [#/Vol] 3.6 10*3/uL Normal 1.00-4.8 [facility] Comment on above: Performed By: #### C UU, UHCG, ADDONUAPLUS #### [address] Lymphocytes/100 leukocytes i n Blood by Automated countOrdered By: Kanu Brush on 07-21-2023 Lymphocytes/100 WBC (Bld) 35.8 % Normal . [facility] Comment on above: Performed By: #### C UU, UHCG, ADDONUAPLUS #### [address] MCH [Entitic mass] by Automa rachelle countOrdered By: Kanu Brush on 07-21-2023 MCH (RBC) [Entitic mass] 30.0 pg Normal 24.7-34.3 [facility] Comment on above: Performed By: #### C UU, UHCG, ADDONUAPLUS #### [address] MCHC Auto (RBC) [Mass/Vol]Or dered By: Kanu Brush on 07-21-2023 MCHC (RBC) [Mass/Vol] 33.8 g/dL 32.0-35.0 [facility] MCV [Entitic volume] by Auto mated countOrdered By: Kanu Brush on 07-21-2023 MCV (RBC) [Entitic vol] 88.9 fL Normal 80-100 [facility] Comment on above: Performed By: #### C UU, LAKHWINDERCG, ADDONUAPLUS #### [facility] [address] [place] [address] Monocyte distribution width [Entitic volume] in Blood by AutomatedOrdered By: Kanu Brush on 07-21-2023 Monocyte distribution width Auto (Bld) [Entitic vol] 19.26 % 0.00-20.00 [facility] Neutrophils [#/volume] in Bl ood by Automated countOrdered By: Kanu Brush on 07-21-2023 Neutrophils (Bld) [#/Vol] 5.6 10*3/uL Normal 1.8-7.7 [facility] Comment on above: Performed By: #### C UAnastasia, JEFF, ADDONUAPLUS #### [facility] [address] [place] [address] Nitrite Test strip Ql (U)Ord ered By: Kanu Brush on 07-21-2023 Nitrite Ql (U) Negative Negative [facility] No Panel InformationOrdered By: Kanu Brush on 07-21-2023 Estimated GFR (CKD-EPI) > 60.0 mL/Min [facility] Creatinine Clearance (Chem 89.28 [facility] Nucleated erythrocytes [Pres ence] in Blood by Automated countOrdered By: Kanu Brush on 07-21-2023 Nucleated RBC Auto Ql (Bld) 0.1 /100{WBC} 0-0.5 [facility] Platelet mean volume [Entiti c volume] in Blood by Automated countOrdered By: Kanu Brush on 07-21-2023 Platelet mean volume (Bld) [Entitic vol] 7.3 fL Normal 6.3-10.7 [facility] Comment on above: Performed By: #### C UU, UHCG, ADDONUAPLUS #### [facility] [address] [place] [address] [place] Platelets [#/volume] in Bloo d by Automated countOrdered By: Kanu Brush on 07-21-2023 Platelets (Bld) [#/Vol] 262 10*3/uL Normal 150-450 [facility] Comment on above: Performed By: #### C UU, UHCG, ADDONUAPLUS #### [facility] [address] [place] [address] Potassium [Moles/volume] in Serum or PlasmaOrdered By: Kanu Brush on 07-21-2023 Potassium [Moles/Vol] 3.8 mmol/L Normal 3.5-5.1 [facility] Comment on above: Performed By: #### C UU, UHCG, ADDONUAPLUS #### [facility] [address] [place] [address] Protein Auto test strip (U) [Mass/Vol]Ordered By: Kanu Brush on 07-21-2023 Protein (U) [Mass/Vol] Negative Negative [facility] Protein [Mass/volume] in Ser um or PlasmaOrdered By: Kanu Brush on 07-21-2023 Protein [Mass/Vol] 7.3 g/dL Normal 6.4-8.9 [facility] Comment on above: Performed By: #### C UU, UHCG, ADDONUAPLUS #### [address] Serum globulin measurement b y calculation (mass/volume)Ordered By: Kanu Brush on 07-21-2023 Globulin (S) [Mass/Vol] 3.4 g/dL [facility] Comment on above: Performed By: #### C UU, UHCG, ADDONUAPLUS #### [facility] [address] [place] [address] Serum or plasma albumin/glob ulin mass ratioOrdered By: Kanu Brush on 07-21-2023 Albumin/Globulin [Mass ratio] 1.1 {ratio} [facility] Comment on above: Performed By: #### C UU, UHCG, ADDONUAPLUS #### [facility] [address] [place] [address] Serum or plasma anion gap de terminationOrdered By: Kanu Brush on 07-21-2023 Anion gap [Moles/Vol] 9.4 mmol/L Normal 6.0-15.0 [facility] Comment on above: Performed By: #### C UU, UHCG, ADDONUAPLUS #### [facility] [address] [place] [address] Serum or plasma non-glucuron idated bilirubin measurement (mass/volume)Ordered By: Kanu Brush on 07-21-2023 Bilirubin.indirect [Mass/Vol] 0.2 mg/dL [facility] Sodium [Moles/volume] in Ser um or PlasmaOrdered By: Kanu Brush on 07-21-2023 Sodium [Moles/Vol] 138 mmol/L Normal 136-145 [facility] Comment on above: Performed By: #### C UU, UHCG, ADDONUAPLUS #### [facility] [address] [place] [address] Specific gravity Auto test s trip (U) [Rel density]Ordered By: Kanu Brush on 07-21-2023 Specific gravity (U) [Rel density] 1.015 1.001-1.03 0 [facility] Urea nitrogen [Mass/volume] in Serum or PlasmaOrdered By: Kanu Brush on 07-21-2023 Urea nitrogen [Mass/Vol] 11 mg/dL Normal 7-25 [facility] Comment on above: Performed By: #### C UU, UHCG, ADDONUAPLUS #### [facility] [address] [place] [address] Urine clarity by refractomet ry automatedOrdered By: Kanu Brush on 07-21-2023 Clarity Refractometry automated (U) Clear Clear [facility] Urine glucose measurement by automated test strip (mass/volume)Ordered By: Kanu Brush on 07-21-2023 Glucose Auto test strip (U) [Mass/Vol] Normal mg/dL Normal [facility] Urine hemoglobin detection b y automated test stripOrdered By: Kanu Brush on 07-21-2023 Hemoglobin Auto test strip Ql (U) Trace High Negative [facility] Urine leukocyte esterase det ection by automated test stripOrdered By: Kanu Brush on 07-21-2023 Leukocyte esterase Auto test strip Ql (U) 2+ High Negative [facility] Urine pH measurement by auto mated test stripOrdered By: Kanu Brush on 07-21-2023 pH (U) 6.5 [pH] Normal 5.0-9.0 [facility] Comment on above: Order Comment: Name Collection Type:: Clean-Voided Midstream Performed By: #### C UU, UHCG, ADDONUAPLUS #### [address] Urobilinogen Auto test strip (U) [Mass/Vol]Ordered By: Kanu Brush on 07-21-2023 Urobilinogen (U) [Mass/Vol] Normal mg/dL Normal [facility] XR acute abdomen serieson XR acute abdomen series [facility] [place] [address] [place] [address] XRay Report Signed Patient: Tracie Samuels MR#: [id number] 640 : 1990 Acct:[id number] Age/Sex: 33 / F ADM Date: 07/21/23 Loc: ER Room: Type: [facility] ER Attending Dr: Copies to: Kanu Brush [...] Taylor Wiley M.D.07/21/2023 5:13 PM Dictation Location: [place] [address] Transcribed By: [facility] 07/21/231712 Dictated By: Taylor Wiley MD 07/21/231710 Signed By: 07/21/231712 Normal [facility] Alanine aminotransferase [En zymatic activity/volume] in Serum or PlasmaOrdered By: Roya German on 07-14-2023 ALT [Catalytic activity/Vol] 17 U/L Normal 7-52 [facility] Comment on above: Performed By: #### C UJEFF Oconnor, ADDONUAPLUS #### [address] Albumin [Mass/volume] in Ser um or Plasma by Bromocresol green (BCG) dye binding methoOrdered By: Roya German on 07-14-2023 Albumin BCG dye [Mass/Vol] 3.9 g/dL 3.5-5.7 [facility] Alkaline phosphatase [Enzyma tic activity/volume] in Serum or PlasmaOrdered By: Roya German on 07-14-2023 ALP [Catalytic activity/Vol] 98 U/L Normal 34-104 [facility] Comment on above: Performed By: #### C UJEFF [place]connor, ADDONUAPLUS #### [address] Aspartate aminotransferase [ Enzymatic activity/volume] in Serum or PlasmaOrdered By: Roya German on 07-14-2023 AST [Catalytic activity/Vol] 13 U/L Normal 13-39 [facility] Comment on above: Performed By: #### C JEFF MARTINEZ, ADDONUAPLUS #### [address] Automated basophil %Ordered By: Roya German on 07-14-2023 Basophils/100 WBC (Bld) 0.6 % Normal . [facility] Comment on above: Performed By: #### C UU, LAKHWINDERCZachery, ADDONUAPLUS #### [address] Automated basophil countOrde red By: Roya German on 07-14-2023 Basophils (Bld) [#/Vol] 0.1 10*3/uL Normal 0.0-0.2 [facility] Comment on above: Result Comment: PERF ORMED BY: [place] [address] PATHOLOGIST LICENSED MASSAGE PRACTITIONER JL PERKINS M.D. Performed By: #### C UU, UHCG, ADDONUAPLUS #### [address] Automated blood monocyte cou ntOrdered By: Roya Maxi on 07-14-2023 Monocytes (Bld) [#/Vol] 0.7 10*3/uL Normal 0.0-0.8 [facility] Comment on above: Performed By: #### C UU, UHCG, ADDONUAPLUS #### [address] Automated eosinophil %Ordere d By: Roya German on 07-14-2023 Eosinophils/100 WBC (Bld) 2.0 % Normal . [facility] Comment on above: Performed By: #### C UU, UHCG, ADDONUAPLUS #### [address] Automated eosinophil countOr dered By: Roya German on 07-14-2023 Eosinophils (Bld) [#/Vol] 0.2 10*3/uL Normal 0.0-0.45 [facility] Comment on above: Performed By: #### C UU, UHCG, ADDONUAPLUS #### [address] Automated monocyte %Ordered By: Roya German on 07-14-2023 Monocytes/100 WBC (Bld) 7.9 % Normal . [facility] Comment on above: Performed By: #### C UU, UHCG, ADDONUAPLUS #### [address] Automated neutrophil %Ordere d By: Roya German on 07-14-2023 Neutrophils/100 WBC (Bld) 53.6 % Normal . [facility] Comment on above: Performed By: #### C UU, UHCG, ADDONUAPLUS #### [address] Basic Metabolic Panelon 06-26 Creatinine Clr Calc Pharmacy 115.34 Normal [facility] Comment on above: Performed By: #### C UU, UHCG, ADDONUAPLUS #### [address] GFR/1.73 sq M.predicted MDRD (S/P/Bld) [Vol rate/Area] mL/min/{1.73_m2} Normal [facility] Comment on above: Performed By: #### C UU, UHCG, ADDONUAPLUS #### [address] Bilirubin Test strip Ql (U)O rdered By: Roya German on 07-14-2023 Bilirubin Ql (U) Negative Negative [facility] Bilirubin.direct [Mass/volum e] in Serum or PlasmaOrdered By: Roya German on 07-14-2023 Bilirubin.direct [Mass/Vol] 0.10 mg/dL 0.03-0.18 [facility] Bilirubin.total [Mass/volume ] in Serum or PlasmaOrdered By: Roya German on 07-14-2023 Bilirubin [Mass/Vol] 0.4 mg/dL Normal 0.3-1.0 [facility] Comment on above: Performed By: #### C UU, UHCG, ADDONUAPLUS #### [address] abdomen pelvis w conon CT abdomen pelvis w con [facility] [place] [address] CT Scan Report Signed Patient: Tracie Samuels MR#: [id number] 640 : 1990 Acct:[id number] Age/Sex: 33 / F ADM Date: 07/14/23 Loc: ER Room: Type: [facility] ER Attending Dr: Copies to: Roya [...] nephrolithiasis. Impression dictated by: Dale Huerta Jr., D.O.07/14/2023 5:40 PM Dictation Location: [place] [address] Transcribed By: [facility] 07/14/23 174 Dictated By: Dale Huerta Jr, DO 07/14/23 173 Signed By: 07/14/23 174 Normal [facility] Calcium [Mass/volume] in Ser um or PlasmaOrdered By: Roya German on 07-14-2023 Calcium [Mass/Vol] 8.9 mg/dL Normal 8.6-10.3 [facility] Comment on above: Performed By: #### C JEFF MARTINEZ, ADDONUAPLUS #### [facility] [address] Carbon dioxide, total [Moles /volume] in Serum or PlasmaOrdered By: Roya German on 07-14-2023 CO2 [Moles/Vol] 23.7 mmol/L Normal 21.0-31.0 [facility] Comment on above: Performed By: #### C JEFF MARTINEZ, ADDONUAPLUS #### [facility] [address] [place] [address] [place] Chloride [Moles/volume] in S phoebe or PlasmaOrdered By: Roya German on 07-14-2023 Chloride [Moles/Vol] 109 mmol/L High 98-107 [facility] Comment on above: Performed By: #### C UU, UHCG, ADDONUAPLUS #### [address] Color of Urine by AutoOrdere d By: Roya German on 07-14-2023 Color (U) Yellow Normal Yellow [facility] Comment on above: Order Comment: Name Collection Type:: Clean-Voided Midstream Performed By: #### C UU, UHCG, ADDONUAPLUS #### [address] Complete Blood Count Auto Di ffon 07-14-2023 Mean Corpuscular HGB Conc 33.6 g/dL Normal 32.0-35.0 [facility] Comment on above: Performed By: #### C UU, UHCG, ADDONUAPLUS #### [address] Monocytes/100 WBC (Bld) 19.10 % Normal 0.00-20.00 [facility] Comment on above: Performed By: #### C UU, UHCG, ADDONUAPLUS #### [address] NRBC% 0.0 /100{WBC} Normal 0-0.5 [facility] Comment on above: Performed By: #### C UU, UHCG, ADDONUAPLUS #### [address] Creatinine [Mass/volume] in Serum or PlasmaOrdered By: Roya German on 07-14-2023 Creatinine [Mass/Vol] 0.69 mg/dL Normal 0.60-1.20 [facility] Comment on above: Performed By: #### C UU, UHCG, ADDONUAPLUS #### [address] Erythrocyte distribution wid th [Ratio] by Automated countOrdered By: Roya German on 07-14-2023 Erythrocyte distribution width (RBC) [Ratio] 13.4 % Normal 11.9-15.3 [facility] Comment on above: Performed By: #### C UU, UHCG, ADDONUAPLUS #### [facility] [address] Erythrocytes [#/volume] in B lood by Automated countOrdered By: Roya German on 07-14-2023 RBC (Bld) [#/Vol] 4.10 10*6/uL Normal 3.60-5.00 [facility] Comment on above: Performed By: #### C UU, UHCG, ADDONUAPLUS #### [facility] [address] [place] [address] [place] Glucose [Mass/volume] in Ser um or PlasmaOrdered By: Roya German on 07-14-2023 Glucose [Mass/Vol] 99 mg/dL Normal 70-100 [facility] Comment on above: ADA recommended refe rence rangeRandom Glucose Reference Range is dependent on time and content of last meal. Glucose of more than 200 mg/dL in a nonstressed, ambulatory subject supports the diagnosis of Diabetes Mellitus. Result Comment: [place] om Glucose Reference Range is dependent on time and content of last meal. Glucose of more than 200 mg/dL in a nonstressed, ambulatory subject supports the diagnosis of Diabetes Mellitus. ADA recommended reference range Performed By: #### C UU, UHCG, ADDONUAPLUS #### [address] HCG ( test) IA.rapi d Ql (U)Ordered By: Roya German on 07-14-2023 HCG ( test) Ql (U) Negative [facility] HCG,Urineon 07-14-2023 Beta HCG ( test) Ql (U) Negative Normal [facility] Comment on above: Order Comment: Name Collection Type:: Clean-Voided Midstream Result Comment: PERF ORMED BY: [place] [address] PATHOLOGIST LICENSED MASSAGE PRACTITIONER JL PERKINS M.D. Performed By: #### C UU, UHCG, ADDONUAPLUS #### [address] Hematocrit [Volume Fraction] of Blood by Automated countOrdered By: Roya German on 07-14-2023 Hematocrit (Bld) [Volume fraction] 36.1 % Normal 34.0-46.4 [facility] Comment on above: Performed By: #### C UU, UHCG, ADDONUAPLUS #### [address] Hemoglobin [Mass/volume] in BloodOrdered By: Roya German on 07-14-2023 Hemoglobin (Bld) [Mass/Vol] 12.1 g/dL Normal 11.8-15.4 [facility] Comment on above: Performed By: #### C UU, UHCG, ADDONUAPLUS #### [address] Hepatic Panelon 07-14-2023 Albumin [Mass/Vol] 3.9 g/dL Normal 3.5-5.7 [facility] Comment on above: Performed By: #### C UU, UHCG, ADDONUAPLUS #### [address] Bilirubin,Indirect 0.3 mg/dL Normal [facility] Comment on above: Performed By: #### C UU, UHCG, ADDONUAPLUS #### [address] Bilirubin.indirect [Mass/Vol] 0.10 mg/dL Normal 0.03-0.18 [facility] Comment on above: Performed By: #### C UU, UHCG, ADDONUAPLUS #### [address] Ketones Auto test strip (U) [Mass/Vol]Ordered By: Roya German on 07-14-2023 Ketones (U) [Mass/Vol] Negative Negative [facility] Leukocytes [#/volume] correc rachelle for nucleated erythrocytes in Blood by Automated counOrdered By: Roya German on 07-14-2023 WBC corrected for nucl RBC Auto (Bld) [#/Vol] 8.8 10*3/uL 3.8-11.6 [facility] Leukocytes [#/volume] in Blo od by Automated countOrdered By: Roya German on 07-14-2023 WBC (Bld) [#/Vol] 8.8 10*3/uL Normal 3.8-11.6 [facility] Comment on above: Performed By: #### C UU, UHCG, ADDONUAPLUS #### [facility] [address] [place] [address] Lipase [Enzymatic activity/v olume] in Serum or PlasmaOrdered By: Roya German on 07-14-2023 Lipase [Catalytic activity/Vol] 20.0 U/L Normal 11.0-82.0 [facility] Comment on above: Result Comment: PERF ORMED BY: [place] [address] PATHOLOGIST LICENSED MASSAGE PRACTITIONER JL PERKINS M.D. Performed By: #### C UU, UHCG, ADDONUAPLUS #### [facility] [address] [place] [address] [place] Lymphocytes [#/volume] in Bl ood by Automated countOrdered By: Roya German on 07-14-2023 Lymphocytes (Bld) [#/Vol] 3.2 10*3/uL Normal 1.00-4.8 [facility] Comment on above: Performed By: #### C UU, UHCG, ADDONUAPLUS #### [place] [address] [place] Lymphocytes/100 leukocytes i n Blood by Automated countOrdered By: Roya German on 07-14-2023 Lymphocytes/100 WBC (Bld) 35.9 % Normal . [facility] Comment on above: Performed By: #### C UU, UHCG, ADDONUAPLUS #### [facility] [address] [place] [address] [place] MCH [Entitic mass] by Automa rachelle countOrdered By: Roya German on 07-14-2023 MCH (RBC) [Entitic mass] 29.7 pg Normal 24.7-34.3 [facility] Comment on above: Performed By: #### C UU, UHCG, ADDONUAPLUS #### [facility] [address] [place] [address] MCHC Auto (RBC) [Mass/Vol]Or dered By: Roya German on 07-14-2023 MCHC (RBC) [Mass/Vol] 33.6 g/dL 32.0-35.0 [facility] MCV [Entitic volume] by Auto mated countOrdered By: Roya German on 07-14-2023 MCV (RBC) [Entitic vol] 88.2 fL Normal 80-100 [facility] Comment on above: Performed By: #### C UU, AnnG, ADDONUAPLUS #### [facility] [address] [place] [address] Monocyte distribution width [Entitic volume] in Blood by AutomatedOrdered By: Roya German on 07-14-2023 Monocyte distribution width Auto (Bld) [Entitic vol] 19.10 % 0.00-20.00 [facility] Neutrophils [#/volume] in Bl ood by Automated countOrdered By: Roya German on 07-14-2023 Neutrophils (Bld) [#/Vol] 4.7 10*3/uL Normal 1.8-7.7 [facility] Comment on above: Performed By: #### C JUAN, JEFF, ADDONUAPLUS #### [facility] [address] [place] [address] Nitrite Test strip Ql (U)Ord ered By: Roya German on 07-14-2023 Nitrite Ql (U) Negative Negative [facility] No Panel InformationOrdered By: Roya German on 07-14-2023 Estimated GFR (CKD-EPI) > 60.0 mL/Min [facility] Creatinine Clearance (Chem 115.34 [facility] Nucleated erythrocytes [Pres ence] in Blood by Automated countOrdered By: Roya German on 07-14-2023 Nucleated RBC Auto Ql (Bld) 0.0 /100{WBC} 0-0.5 [facility] Platelet mean volume [Entiti c volume] in Blood by Automated countOrdered By: Roya German on 07-14-2023 Platelet mean volume (Bld) [Entitic vol] 7.2 fL Normal 6.3-10.7 [facility] Comment on above: Performed By: #### C UU, UHCG, ADDONUAPLUS #### [facility] [address] [place] [address] Platelets [#/volume] in Bloo d by Automated countOrdered By: Roya German on 07-14-2023 Platelets (Bld) [#/Vol] 231 10*3/uL Normal 150-450 [facility] Comment on above: Performed By: #### C UU, UHCG, ADDONUAPLUS #### [address] Potassium [Moles/volume] in Serum or PlasmaOrdered By: Roya German on 07-14-2023 Potassium [Moles/Vol] 3.9 mmol/L Normal 3.5-5.1 [facility] Comment on above: Performed By: #### C UU, UHCG, ADDONUAPLUS #### [address] Protein Auto test strip (U) [Mass/Vol]Ordered By: Roya German on 07-14-2023 Protein (U) [Mass/Vol] Negative Negative [facility] Protein [Mass/volume] in Ser um or PlasmaOrdered By: Roya German on 07-14-2023 Protein [Mass/Vol] 7.1 g/dL Normal 6.4-8.9 [facility] Comment on above: Performed By: #### C UU, UHCG, ADDONUAPLUS #### [facility] [address] [place] [address] Serum globulin measurement b y calculation (mass/volume)Ordered By: Roya German on 07-14-2023 Globulin (S) [Mass/Vol] 3.2 g/dL [facility] Comment on above: Performed By: #### C UU, UHCG, ADDONUAPLUS #### [address] Serum or plasma albumin/glob ulin mass ratioOrdered By: Roya German on 07-14-2023 Albumin/Globulin [Mass ratio] 1.2 {ratio} Normal [facility] Comment on above: Performed By: #### C UU, UHCG, ADDONUAPLUS #### [address] Serum or plasma anion gap de terminationOrdered By: Roya German on 07-14-2023 Anion gap [Moles/Vol] 8.2 mmol/L Normal 6.0-15.0 [facility] Comment on above: Performed By: #### C UU, UHCG, ADDONUAPLUS #### [address] Serum or plasma non-glucuron idated bilirubin measurement (mass/volume)Ordered By: Roya German on 07-14-2023 Bilirubin.indirect [Mass/Vol] 0.3 mg/dL [facility] Sodium [Moles/volume] in Ser um or PlasmaOrdered By: Roya German on 07-14-2023 Sodium [Moles/Vol] 137 mmol/L Normal 136-145 [facility] Comment on above: Performed By: #### C UU, UHCG, ADDONUAPLUS #### [address] Specific gravity Auto test s trip (U) [Rel density]Ordered By: Roya German on 07-14-2023 Specific gravity (U) [Rel density] 1.023 1.001-1.03 0 [facility] Urea nitrogen [Mass/volume] in Serum or PlasmaOrdered By: Roya German on 07-14-2023 Urea nitrogen [Mass/Vol] 10 mg/dL Normal 7-25 [facility] Comment on above: Performed By: #### C UU, UHCG, ADDONUAPLUS #### [address] Urinalysison 07-14-2023 Appearance (U) Clear Normal Clear [facility] Comment on above: Order Comment: Name Collection Type:: Clean-Voided Midstream Performed By: #### C UU, UHCG, ADDONUAPLUS #### [address] Bilirubin,Urine Negative Normal Negative [facility] Comment on above: Order Comment: Name Collection Type:: Clean-Voided Midstream Performed By: #### C UU, UHCG, ADDONUAPLUS #### [address] Glucose Ql (U) Normal Normal Normal [facility] Comment on above: Order Comment: Name Collection Type:: Clean-Voided Midstream Performed By: #### C UU, UHCG, ADDONUAPLUS #### [address] Ketones Ql (U) Negative Normal Negative [facility] Comment on above: Order Comment: Name Collection Type:: Clean-Voided Midstream Performed By: #### C UU, UHCG, ADDONUAPLUS #### [address] Leukocyte esterase Test strip Ql (U) Negative Normal Negative [facility] Comment on above: Order Comment: Name Collection Type:: Clean-Voided Midstream Performed By: #### C UU, UHCG, ADDONUAPLUS #### [place] [address] [place] Nitrite,Urine Negative Normal Negative [facility] Comment on above: Order Comment: Name Collection Type:: Clean-Voided Midstream Performed By: #### C UU, UHCG, ADDONUAPLUS #### [place] [address] [place] Occult Blood,Urine Negative Normal Negative [facility] Comment on above: Order Comment: Name Collection Type:: Clean-Voided Midstream Performed By: #### C UU, UHCG, ADDONUAPLUS #### [place] [address] [place] Protein,Urine Negative Normal Negative [facility] Comment on above: Order Comment: Name Collection Type:: Clean-Voided Midstream Performed By: #### C UU, UHCG, ADDONUAPLUS #### [place] [address] [place] Specificy [place],Urine 1.023 Normal 1.001-1.03 0 [facility] Comment on above: Order Comment: Name Collection Type:: Clean-Voided Midstream Performed By: #### C UU, UHCG, ADDONUAPLUS #### [facility] [address] Urobilinogen,Urine Normal Normal Normal [facility] Comment on above: Order Comment: Name Collection Type:: Clean-Voided Midstream Performed By: #### C UU, UHCG, ADDONUAPLUS #### [facility] [address] Urine clarity by refractomet ry automatedOrdered By: Roya German on 07-14-2023 Clarity Refractometry automated (U) Clear Clear [facility] Urine glucose measurement by automated test strip (mass/volume)Ordered By: Roya German on 07-14-2023 Glucose Auto test strip (U) [Mass/Vol] Normal mg/dL Normal [facility] Urine hemoglobin detection b y automated test stripOrdered By: Roya German on 07-14-2023 Hemoglobin Auto test strip Ql (U) Negative Negative [facility] Urine leukocyte esterase det ection by automated test stripOrdered By: Roya German on 07-14-2023 Leukocyte esterase Auto test strip Ql (U) Negative Negative [facility] Urine pH measurement by auto mated test stripOrdered By: Roya German on 07-14-2023 pH (U) 7.0 [pH] Normal 5.0-9.0 [facility] Comment on above: Order Comment: Name Collection Type:: Clean-Voided Midstream Performed By: #### C UU, UHCG, ADDONUAPLUS #### [facility] [address] Urobilinogen Auto test strip (U) [Mass/Vol]Ordered By: Roya German on 07-14-2023 Urobilinogen (U) [Mass/Vol] Normal mg/dL Normal [facility] Alanine aminotransferase [En zymatic activity/volume] in Serum or PlasmaOrdered By: Jason Benton on 07-06-2023 ALT [Catalytic activity/Vol] 27 U/L Normal 7-52 [facility] Comment on above: Performed By: #### L IPASE, CMP, CBC #### [address] Albumin [Mass/volume] in Ser um or Plasma by Bromocresol green (BCG) dye binding methoOrdered By: Jason Benton on 07-06-2023 Albumin BCG dye [Mass/Vol] 4.1 g/dL 3.5-5.7 [facility] Alkaline phosphatase [Enzyma tic activity/volume] in Serum or PlasmaOrdered By: Jason Benton on 07-06-2023 ALP [Catalytic activity/Vol] 113 U/L High 34-104 [facility] Comment on above: Performed By: #### L IPASE, CMP, CBC #### [address] Aspartate aminotransferase [ Enzymatic activity/volume] in Serum or PlasmaOrdered By: Jason Benton on 07-06-2023 AST [Catalytic activity/Vol] 17 U/L Normal 13-39 [facility] Comment on above: Performed By: #### L IPASE, CMP, CBC #### [address] Automated basophil %Ordered By: Jason Benton on 07-06-2023 Basophils/100 WBC (Bld) 0.7 % Normal . [facility] Comment on above: Performed By: #### L IPASE, CMP, CBC #### [address] Automated basophil countOrde red By: Jason Benton on 07-06-2023 Basophils (Bld) [#/Vol] 0.1 10*3/uL Normal 0.0-0.2 [facility] Comment on above: Result Comment: PERF ORMED BY: [place] [address] PATHOLOGIST LICENSED MASSAGE PRACTITIONER JL PERKINS M.D. Performed By: #### L IPASE, CMP, CBC #### [address] Automated blood monocyte cou ntOrdered By: Jason Benton on 07-06-2023 Monocytes (Bld) [#/Vol] 0.6 10*3/uL Normal 0.0-0.8 [facility] Comment on above: Performed By: #### L IPASE, CMP, CBC #### [address] Automated eosinophil %Ordere d By: Jason Benton on 07-06-2023 Eosinophils/100 WBC (Bld) 2.7 % Normal . [facility] Comment on above: Performed By: #### L IPASE, CMP, CBC #### [address] Automated eosinophil countOr dered By: Jason Benton on 07-06-2023 Eosinophils (Bld) [#/Vol] 0.3 10*3/uL Normal 0.0-0.45 [facility] Comment on above: Performed By: #### L IPASE, CMP, CBC #### [address] Automated monocyte %Ordered By: Jason Benton on 07-06-2023 Monocytes/100 WBC (Bld) 4.8 % Normal . [facility] Comment on above: Performed By: #### L IPASE, CMP, CBC #### [address] Automated neutrophil %Ordere d By: Jason Benton on 07-06-2023 Neutrophils/100 WBC (Bld) 75.2 % Normal . [facility] Comment on above: Performed By: #### L IPASE, CMP, CBC #### [address] Bilirubin.total [Mass/volume ] in Serum or PlasmaOrdered By: Jason Benton on 07-06-2023 Bilirubin [Mass/Vol] 0.3 mg/dL Normal 0.3-1.0 [facility] Comment on above: Performed By: #### L IPASE, CMP, CBC #### [address] head/brain wo conon 07-05 CT head/brain wo con [facility] Main [place] [address] [place] [id number] Scan Report Signed Patient: Tracie Samuels MR#: [id number] : 1990 Acct:[id number] Age/Sex: 33 / F ADM Date: 07/06/23 Loc: ER Room: Type: [facility] ER Attending Dr: Copies to: Jason Benton [...] Quique Lai M.D.07/06/2023 8:06 AM Dictation Location: [place] [address] Transcribed By: [facility] 07/06/23 08 Dictated By: Quique Lai DO 07/06/23 0804 Signed By: 07/06/23 08 Normal [facility] Calcium [Mass/volume] in Ser um or PlasmaOrdered By: Jason Benton on 07-06-2023 Calcium [Mass/Vol] 8.8 mg/dL Normal 8.6-10.3 [facility] Comment on above: Performed By: #### L IPASE, CMP, CBC #### [place] [id number] [facility] Carbon dioxide, total [Moles /volume] in Serum or PlasmaOrdered By: Jason Benton on 07-06-2023 CO2 [Moles/Vol] 25.2 mmol/L Normal 21.0-31.0 [facility] Comment on above: Performed By: #### L IPASE, CMP, CBC #### [address] Chloride [Moles/volume] in S phoebe or PlasmaOrdered By: Jason Serenity on 07-06-2023 Chloride [Moles/Vol] 106 mmol/L Normal 98-107 [facility] Comment on above: Performed By: #### L IPASE, CMP, CBC #### [address] Complete Blood Count Auto Di ffon 07-06-2023 Mean Corpuscular HGB Conc 33.5 g/dL Normal 32.0-35.0 [facility] Comment on above: Performed By: #### L IPASE, CMP, CBC #### [address] Monocytes/100 WBC (Bld) 21.15 % High 0.00-20.00 [facility] Comment on above: Result Comment: For adults in ED, MDW > 20.0 may be associated with a higher risk of sepsis during the first 12 hrs of hospital admission Performed By: #### L IPASE, CMP, CBC #### [address] NRBC% 0.0 /100{WBC} Normal 0-0.5 [facility] Comment on above: Performed By: #### L IPASE, CMP, CBC #### [address] Comprehensive Metabolic Pane isrrael 07-06-2023 Albumin [Mass/Vol] 4.1 g/dL Normal 3.5-5.7 [facility] Comment on above: Performed By: #### L IPASE, CMP, CBC #### [address] Creatinine Clr Calc Pharmacy 108.38 Normal [facility] Comment on above: Performed By: #### L IPASE, CMP, CBC #### [facility] [address] [place] [address] [place] GFR/1.73 sq M.predicted MDRD (S/P/Bld) [Vol rate/Area] mL/min/{1.73_m2} Normal [facility] Comment on above: Performed By: #### L IPASE, CMP, CBC #### [facility] [address] Creatinine [Mass/volume] in Serum or PlasmaOrdered By: Jaosn Benton on 07-06-2023 Creatinine [Mass/Vol] 0.74 mg/dL Normal 0.60-1.20 [facility] Comment on above: Performed By: #### L IPASE, CMP, CBC #### [address] Erythrocyte distribution wid th [Ratio] by Automated countOrdered By: Jason Benton on 07-06-2023 Erythrocyte distribution width (RBC) [Ratio] 13.2 % Normal 11.9-15.3 [facility] Comment on above: Performed By: #### L IPASE, CMP, CBC #### [place] [address] [place] Erythrocytes [#/volume] in B lood by Automated countOrdered By: Jason Benton on 07-06-2023 RBC (Bld) [#/Vol] 4.15 10*6/uL Normal 3.60-5.00 [facility] Comment on above: Performed By: #### L IPASE, CMP, CBC #### [place] [address] [place] Glucose [Mass/volume] in Ser um or PlasmaOrdered By: Jason Benton on 07-06-2023 Glucose [Mass/Vol] 96 mg/dL Normal 70-100 [facility] Comment on above: ADA recommended refe rence rangeRandom Glucose Reference Range is dependent on time and content of last meal. Glucose of more than 200 mg/dL in a nonstressed, ambulatory subject supports the diagnosis of Diabetes Mellitus. Result Comment: [place] om Glucose Reference Range is dependent on time and content of last meal. Glucose of more than 200 mg/dL in a nonstressed, ambulatory subject supports the diagnosis of Diabetes Mellitus. ADA recommended reference range Performed By: #### L IPASE CMP, CBC #### [address] Hematocrit [Volume Fraction] of Blood by Automated countOrdered By: Jason Benton on 07-06-2023 Hematocrit (Bld) [Volume fraction] 36.8 % Normal 34.0-46.4 [facility] Comment on above: Performed By: #### L IPASE, CMP, CBC #### [address] Hemoglobin [Mass/volume] in BloodOrdered By: Jason Benton on 07-06-2023 Hemoglobin (Bld) [Mass/Vol] 12.3 g/dL Normal 11.8-15.4 [facility] Comment on above: Performed By: #### L IPASE CMP, CBC #### [address] Leukocytes [#/volume] correc rachelle for nucleated erythrocytes in Blood by Automated counOrdered By: Jason Benton on 07-06-2023 WBC corrected for nucl RBC Auto (Bld) [#/Vol] 12.9 10*3/uL High 3.8-11.6 [facility] Leukocytes [#/volume] in Blo od by Automated countOrdered By: Jason Benton on 07-06-2023 WBC (Bld) [#/Vol] 12.9 10*3/uL High 3.8-11.6 [facility] Comment on above: Performed By: #### L IPASE, CMP, CBC #### [address] Lipase [Enzymatic activity/v olume] in Serum or PlasmaOrdered By: Jason Benton on 07-06-2023 Lipase [Catalytic activity/Vol] 25.0 U/L Normal 11.0-82.0 [facility] Comment on above: Result Comment: PERF ORMED BY: [place] [address] PATHOLOGIST LICENSED MASSAGE PRACTITIONER JL PERKINS M.D. Performed By: #### L IPASE, CMP, CBC #### [address] Lymphocytes [#/volume] in Bl ood by Automated countOrdered By: Jason Benton on 07-06-2023 Lymphocytes (Bld) [#/Vol] 2.1 10*3/uL Normal 1.00-4.8 [facility] Comment on above: Performed By: #### L IPASE, CMP, CBC #### [address] Lymphocytes/100 leukocytes i n Blood by Automated countOrdered By: Jason Benton on 07-06-2023 Lymphocytes/100 WBC (Bld) 16.6 % Normal . [facility] Comment on above: Performed By: #### L IPASE, CMP, CBC #### [address] MCH [Entitic mass] by Automa rachelle countOrdered By: Jason Benton on 07-06-2023 MCH (RBC) [Entitic mass] 29.6 pg Normal 24.7-34.3 [facility] Comment on above: Performed By: #### L IPASE, CMP, CBC #### [address] MCHC Auto (RBC) [Mass/Vol]Or dered By: Jason Benton on 07-06-2023 MCHC (RBC) [Mass/Vol] 33.5 g/dL 32.0-35.0 [facility] MCV [Entitic volume] by Auto mated countOrdered By: Jason Benton on 07-06-2023 MCV (RBC) [Entitic vol] 88.6 fL Normal 80-100 [facility] Comment on above: Performed By: #### L IPASE, CMP, CBC #### [place] [address] [place] Monocyte distribution width [Entitic volume] in Blood by AutomatedOrdered By: Jason Benton on 07-06-2023 Monocyte distribution width Auto (Bld) [Entitic vol] 21.15 % High 0.00-20.00 [facility] Comment on above: For adults in ED, MD W > 20.0 may be associated with a higher risk of sepsis during the first 12 hrs of hospital admission Neutrophils [#/volume] in Bl ood by Automated countOrdered By: Jason Benton on 07-06-2023 Neutrophils (Bld) [#/Vol] 9.7 10*3/uL High 1.8-7.7 [facility] Comment on above: Performed By: #### L IPASE, CMP, CBC #### [facility] [address] [place] [address] No Panel InformationOrdered By: Jason Benton on 07-06-2023 Estimated GFR (CKD-EPI) > 60.0 mL/Min [facility] Creatinine Clearance (Chem 108.38 [facility] Nucleated erythrocytes [Pres ence] in Blood by Automated countOrdered By: Jason Benton on 07-06-2023 Nucleated RBC Auto Ql (Bld) 0.0 /100{WBC} 0-0.5 [facility] Platelet mean volume [Entiti c volume] in Blood by Automated countOrdered By: Jason Benton on 07-06-2023 Platelet mean volume (Bld) [Entitic vol] 7.2 fL Normal 6.3-10.7 [facility] Comment on above: Performed By: #### L IPASE, CMP, CBC #### [facility] [address] [place] [address] Platelets [#/volume] in Bloo d by Automated countOrdered By: Jason Benton on 07-06-2023 Platelets (Bld) [#/Vol] 241 10*3/uL Normal 150-450 [facility] Comment on above: Performed By: #### L IPASE, CMP, CBC #### [facility] [address] [place] [address] Potassium [Moles/volume] in Serum or PlasmaOrdered By: Jason Benton on 07-06-2023 Potassium [Moles/Vol] 3.7 mmol/L Normal 3.5-5.1 [facility] Comment on above: Performed By: #### L IPASE CMP, CBC #### [address] Protein [Mass/volume] in Ser um or PlasmaOrdered By: Jason Benton on 07-06-2023 Protein [Mass/Vol] 7.6 g/dL Normal 6.4-8.9 [facility] Comment on above: Performed By: #### L IPASE CMP, CBC #### [address] Serum globulin measurement b y calculation (mass/volume)Ordered By: Jason Benton on 07-06-2023 Globulin (S) [Mass/Vol] 3.5 g/dL [facility] Comment on above: Performed By: #### L IPASE CMP, CBC #### [address] Serum or plasma albumin/glob ulin mass ratioOrdered By: Jason Benton on 07-06-2023 Albumin/Globulin [Mass ratio] 1.2 {ratio} [facility] Comment on above: Performed By: #### L IPASE CMP, CBC #### [address] Serum or plasma anion gap de terminationOrdered By: Jason Benton on 07-06-2023 Anion gap [Moles/Vol] 8.5 mmol/L Normal 6.0-15.0 [facility] Comment on above: Performed By: #### L IPASE CMP, CBC #### [address] Sodium [Moles/volume] in Ser um or PlasmaOrdered By: Jason Benton on 07-06-2023 Sodium [Moles/Vol] 136 mmol/L Normal 136-145 [facility] Comment on above: Performed By: #### L IPASE, CMP, CBC #### [address] Urea nitrogen [Mass/volume] in Serum or PlasmaOrdered By: Jason Benton on 07-06-2023 Urea nitrogen [Mass/Vol] 10 mg/dL Normal 7-25 [facility] Comment on above: Performed By: #### L IPASE, CMP, CBC #### [facility] [address] Activated partial thrombopla stin time (aPTT) in platelet poor plasma by coagulation aOrdered By: Tate Marcial on 06-13-2023 aPTT Coag (PPP) [Time] 28.3 s 25.1-36.5 [facility] Comment on above: A hematocrit value g reater than 55% may lead to inaccurate results in coagulation testing. Patients having hematocrit values >55% require a special collection tube for coagulation studies. Please contact the laboratory at [phone] for redraw instructions. Alanine aminotransferase [En zymatic activity/volume] in Serum or PlasmaOrdered By: Tate Marcial on 06-13-2023 ALT [Catalytic activity/Vol] 11 U/L 7-52 [facility] Albumin [Mass/volume] in Ser um or Plasma by Bromocresol green (BCG) dye binding methoOrdered By: Tate Marcial on 06-13-2023 Albumin BCG dye [Mass/Vol] 3.8 g/dL 3.5-5.7 [facility] Alkaline phosphatase [Enzyma tic activity/volume] in Serum or PlasmaOrdered By: Tate Marcial on 06-13-2023 ALP [Catalytic activity/Vol] 101 U/L 34-104 [facility] Aspartate aminotransferase [ Enzymatic activity/volume] in Serum or PlasmaOrdered By: Tate Marcial on 06-13-2023 AST [Catalytic activity/Vol] 15 U/L 13-39 [facility] Automated erythrocytes count in urine sediment (number/area)Ordered By: Tate Marcial on 06-13-2023 RBC Auto (Urine sed) [#/Area] 0-1 [HPF] 0-4 [facility] Automated leukocytes count i n urine sediment (number/area)Ordered By: Tate Marcial on 06-13-2023 WBC Auto (Urine sed) [#/Area] 5-9 [HPF] 0-4 [facility] Basophils Auto (Bld) [#/Vol] Ordered By: Tate Marcial on 06-13-2023 Basophils (Bld) [#/Vol] 0.1 10*3/uL 0.0-0.2 [facility] Basophils/100 WBC Auto (Bld) Ordered By: Tate Marcial on 06-13-2023 Basophils/100 WBC (Bld) 0.9 % . [facility] Bilirubin Test strip Ql (U)O rdered By: Tate Marcial on 06-13-2023 Bilirubin Ql (U) Negative Negative [facility] Bilirubin.direct [Mass/volum e] in Serum or PlasmaOrdered By: Tate Marcial on 06-13-2023 Bilirubin.direct [Mass/Vol] 0.10 mg/dL 0.03-0.18 [facility] Bilirubin.total [Mass/volume ] in Serum or PlasmaOrdered By: Tate Marcial on 06-13-2023 Bilirubin [Mass/Vol] 0.2 mg/dL 0.3-1.0 [facility] Calcium [Mass/volume] in Ser um or PlasmaOrdered By: Tate Marcial on 06-13-2023 Calcium [Mass/Vol] 8.7 mg/dL 8.6-10.3 [facility] Carbon dioxide, total [Moles /volume] in Serum or PlasmaOrdered By: Tate Marcial on 06-13-2023 CO2 [Moles/Vol] 24.4 mmol/L 21.0-31.0 [facility] Chloride [Moles/volume] in S phoebe or PlasmaOrdered By: Tate Marcial on 06-13-2023 Chloride [Moles/Vol] 108 mmol/L 98-107 [facility] Color Auto (U)Ordered By: Chito red Aggie on 06-13-2023 Color (U) Yellow Yellow [facility] Creatinine [Mass/volume] in Serum or PlasmaOrdered By: Tate Marcail on 06-13-2023 Creatinine [Mass/Vol] 0.70 mg/dL 0.60-1.20 [facility] Eosinophils Auto (Bld) [#/Vo l]Ordered By: Tate Marcial on 06-13-2023 Eosinophils (Bld) [#/Vol] 0.2 10*3/uL 0.0-0.45 [facility] Eosinophils/100 WBC Auto (Bl d)Ordered By: Tate Marcial on 06-13-2023 Eosinophils/100 WBC (Bld) 2.5 % . [facility] Erythrocyte distribution wid th Auto (RBC) [Ratio]Ordered By: Tate Marcial on 06-13-2023 Erythrocyte distribution width (RBC) [Ratio] 13.2 % 11.9-15.3 [facility] Globulin Calc (S) [Mass/Vol] Ordered By: Tate Marcial on 06-13-2023 Globulin (S) [Mass/Vol] 3.4 g/dL [facility] Glucose [Mass/volume] in Ser um or PlasmaOrdered By: Tate Marcial on 06-13-2023 Glucose [Mass/Vol] 99 mg/dL 70-100 [facility] Comment on above: ADA recommended refe rence rangeRandom Glucose Reference Range is dependent on time and content of last meal. Glucose of more than 200 mg/dL in a nonstressed, ambulatory subject supports the diagnosis of Diabetes Mellitus. HCG ( test) IA.rapi d Ql (U)Ordered By: Tate Marcial on 06-13-2023 HCG ( test) Ql (U) Negative [facility] Hematocrit Auto (Bld) [Volum e fraction]Ordered By: Tate Marcial on 06-13-2023 Hematocrit (Bld) [Volume fraction] 36.2 % 34.0-46.4 [facility] Hemoglobin [Mass/volume] in BloodOrdered By: Tate Marcial 06-13-2023 Hemoglobin (Bld) [Mass/Vol] 12.1 g/dL 11.8-15.4 [facility] INR in Platelet poor plasma by Coagulation assayOrdered By: Tate Marcial on 06-13-2023 INR Coag (PPP) [Relative time] 0.9 {INR} [facility] Comment on above: INR Therapeutic Rang e A) Pre- and Peroperative OAT started two weeks before surgery. NOT HIP SURGERY: 1.5 - 2.5 HIP SURGERY: 2 - 3B) Primary and secondary prevention of venous THROMBOSIS: 2 - 3C) Active venous thrombosis, pulmonary embolismand prevention of recurrent venous thrombosis: 2 - 3D) Prevention of arterial thromboembolismincluding patients with mechanical heart valves: 3 - 4.5 Ketones Auto test strip (U) [Mass/Vol]Ordered By: Tate Marcial on 06-13-2023 Ketones (U) [Mass/Vol] Negative Negative [facility] - UrinalysisOrder ed By: Tate Marcial on 06-13-2023 Hyaline casts LM Ql (Urine sed) None seen [LPF] 0-8 [facility] Leukocytes [#/volume] correc rachelle for nucleated erythrocytes in Blood by Automated counOrdered By: Tate Marcial on 06-13-2023 WBC corrected for nucl RBC Auto (Bld) [#/Vol] 8.6 10*3/uL 3.8-11.6 [facility] Lipase [Enzymatic activity/v olume] in Serum or PlasmaOrdered By: Tate Marcial on 06-13-2023 Lipase [Catalytic activity/Vol] 24.0 U/L 11.0-82.0 [facility] Lymphocytes Auto (Bld) [#/Vo l]Ordered By: Tate Marcial on 06-13-2023 Lymphocytes (Bld) [#/Vol] 2.8 10*3/uL 1.00-4.8 [facility] Lymphocytes/100 WBC Auto (Bl d)Ordered By: Tate Marcial on 06-13-2023 Lymphocytes/100 WBC (Bld) 33.0 % . [facility] MCH Auto (RBC) [Entitic mass ]Ordered By: Tate Marcial on 06-13-2023 MCH (RBC) [Entitic mass] 29.5 pg 24.7-34.3 [facility] MCHC Auto (RBC) [Mass/Vol]Or dered By: Tate Marcial on 06-13-2023 MCHC (RBC) [Mass/Vol] 33.4 g/dL 32.0-35.0 [facility] MCV Auto (RBC) [Entitic vol] Ordered By: Tate Marcial on 06-13-2023 MCV (RBC) [Entitic vol] 88.1 fL 80-100 [facility] Monocyte distribution width [Entitic volume] in Blood by AutomatedOrdered By: Tate Marcial on 06-13-2023 Monocyte distribution width Auto (Bld) [Entitic vol] 18.81 % 0.00-20.00 [facility] Monocytes Auto (Bld) [#/Vol] Ordered By: Tate Marcial on 06-13-2023 Monocytes (Bld) [#/Vol] 0.6 10*3/uL 0.0-0.8 [facility] Monocytes/100 WBC Auto (Bld) Ordered By: Tate Marcial on 06-13-2023 Monocytes/100 WBC (Bld) 7.2 % . [facility] Neutrophils Auto (Bld) [#/Vo l]Ordered By: Tate Marcial on 06-13-2023 Neutrophils (Bld) [#/Vol] 4.9 10*3/uL 1.8-7.7 [facility] Neutrophils/100 WBC Auto (Bl d)Ordered By: Tate Marcial on 06-13-2023 Neutrophils/100 WBC (Bld) 56.4 % . [facility] Nitrite Test strip Ql (U)Ord ered By: Tate Marcial on 06-13-2023 Nitrite Ql (U) Negative Negative [facility] No Panel InformationOrdered By: Ttae Marcial on 06-13-2023 Estimated GFR (CKD-EPI) > 60.0 mL/Min [facility] Creatinine Clearance (Chem 118.47 [facility] Nucleated erythrocytes [Pres ence] in Blood by Automated countOrdered By: Tate Marcial on 06-13-2023 Nucleated RBC Auto Ql (Bld) 0.0 /100{WBC} 0-0.5 [facility] Platelet mean volume Auto (B ld) [Entitic vol]Ordered By: Tate Marcial on 06-13-2023 Platelet mean volume (Bld) [Entitic vol] 7.2 fL 6.3-10.7 [facility] Platelets Auto (Bld) [#/Vol] Ordered By: Tate Marcial on 06-13-2023 Platelets (Bld) [#/Vol] 238 10*3/uL 150-450 [facility] Potassium [Moles/volume] in Serum or PlasmaOrdered By: Tate Marcial on 06-13-2023 Potassium [Moles/Vol] 4.4 mmol/L 3.5-5.1 [facility] Potassium [Moles/Vol] See comment 3.5-5.1 [facility] Comment on above: Specimen hemolyzed, redraw requested Protein Auto test strip (U) [Mass/Vol]Ordered By: Tate Marcial on 06-13-2023 Protein (U) [Mass/Vol] Negative Negative [facility] Protein [Mass/volume] in Ser um or PlasmaOrdered By: Tate Marcial on 06-13-2023 Protein [Mass/Vol] 7.2 g/dL 6.4-8.9 [facility] Prothrombin time (PT)Ordered By: Tate Marcial on 06-13-2023 PT Coag (PPP) [Time] 10.5 s 9.0-12.9 [facility] Comment on above: A hematocrit value g reater than 55% may lead to inaccurate results in coagulation testing. Patients having hematocrit values >55% require a special collection tube for coagulation studies. Please contact the laboratory at [phone] for redraw instructions. RBC Auto (Bld) [#/Vol]Ordere d By: Tate Marcial on 06-13-2023 RBC (Bld) [#/Vol] 4.10 10*6/uL 3.60-5.00 [facility] Serum or plasma albumin/glob ulin mass ratioOrdered By: Tate Marcial on 06-13-2023 Albumin/Globulin [Mass ratio] 1.1 {ratio} [facility] Serum or plasma anion gap de terminationOrdered By: Tate Marcial on 06-13-2023 Anion gap [Moles/Vol] TNP [facility] Comment on above: Test not performed Serum or plasma non-glucuron idated bilirubin measurement (mass/volume)Ordered By: Tate Marcial on 06-13-2023 Bilirubin.indirect [Mass/Vol] TNP [facility] Comment on above: Test not performed Sodium [Moles/volume] in Ser um or PlasmaOrdered By: Tate Marcial on 06-13-2023 Sodium [Moles/Vol] 137 mmol/L 136-145 [facility] Specific gravity Auto test s trip (U) [Rel density]Ordered By: Tate Marcial on 06-13-2023 Specific gravity (U) [Rel density] 1.018 1.001-1.03 0 [facility] Squamous epithelial cells de tection in urine sediment by light microscopyOrdered By: Tate Marcial on 06-13-2023 Epithelial cells.squamous LM Ql (Urine sed) 10-19 [HPF] 0-2 [facility] Urea nitrogen [Mass/volume] in Serum or PlasmaOrdered By: Tate Marcial on 06-13-2023 Urea nitrogen [Mass/Vol] 8 mg/dL 7-25 [facility] Urine bacteria detection by automated methodOrdered By: Tate Marcial on 06-13-2023 Bacteria Auto Ql (U) 1+ None Seen [facility] Urine clarity by refractomet ry automatedOrdered By: Tate Marcial on 06-13-2023 Clarity Refractometry automated (U) Cloudy Clear [facility] Urine culture routineOrdered By: Tate Marcial on 06-13-2023 Bacteria identified Cx Nom (U) 2 Days [facility] Urine glucose measurement by automated test strip (mass/volume)Ordered By: Tate Marcial on 06-13-2023 Glucose Auto test strip (U) [Mass/Vol] Normal mg/dL Normal [facility] Urine hemoglobin detection b y automated test stripOrdered By: Tate Marcial on 06-13-2023 Hemoglobin Auto test strip Ql (U) 1+ Negative [facility] Urine leukocyte esterase det ection by automated test stripOrdered By: Tate Marcial on 06-13-2023 Leukocyte esterase Auto test strip Ql (U) 1+ Negative [facility] Urobilinogen Auto test strip (U) [Mass/Vol]Ordered By: Tate Marcial on 06-13-2023 Urobilinogen (U) [Mass/Vol] Normal mg/dL Normal [facility] WBC Auto (Bld) [#/Vol]Ordere d By: Tate Marcial on 06-13-2023 WBC (Bld) [#/Vol] 8.6 10*3/uL 3.8-11.6 [facility] pH Auto test strip (U)Ordere d By: Tate Marcial on 06-13-2023 pH (U) 6.0 [pH] 5.0-9.0 [facility] HCG ( test) IAmigdalia d Ql (U)Ordered By: JAELYN HARRINGTON on 05-22-2023 HCG ( test) Ql (U) Negative [facility] Alanine aminotransferase [En zymatic activity/volume] in Serum or PlasmaOrdered By: Tate Marcial on 05-16-2023 ALT [Catalytic activity/Vol] 11 U/L 7-52 [facility] Albumin [Mass/volume] in Ser um or Plasma by Bromocresol green (BCG) dye binding methoOrdered By: Tate Marcial on 05-16-2023 Albumin BCG dye [Mass/Vol] 4.1 g/dL 3.5-5.7 [facility] Alkaline phosphatase [Enzyma tic activity/volume] in Serum or PlasmaOrdered By: Tate Marcial on 05-16-2023 ALP [Catalytic activity/Vol] 89 U/L 34-104 [facility] Aspartate aminotransferase [ Enzymatic activity/volume] in Serum or PlasmaOrdered By: Tate Marcial on 05-16-2023 AST [Catalytic activity/Vol] 13 U/L 13-39 [facility] Automated erythrocytes count in urine sediment (number/area)Ordered By: Tate Marcial on 05-16-2023 RBC Auto (Urine sed) [#/Area] 5-9 [HPF] 0-4 [facility] Automated leukocytes count i n urine sediment (number/area)Ordered By: Tate Marcial on 05-16-2023 WBC Auto (Urine sed) [#/Area] 10-19 [HPF] 0-4 [facility] Basophils Auto (Bld) [#/Vol] Ordered By: Tate Marcial on 05-16-2023 Basophils (Bld) [#/Vol] 0.1 10*3/uL 0.0-0.2 [facility] Basophils/100 WBC Auto (Bld) Ordered By: Tate Marcial on 05-16-2023 Basophils/100 WBC (Bld) 0.4 % . [facility] Bilirubin Test strip Ql (U)O rdered By: Tate Marcial on 05-16-2023 Bilirubin Ql (U) Negative Negative [facility] Bilirubin.direct [Mass/volum e] in Serum or PlasmaOrdered By: Tate Marcial on 05-16-2023 Bilirubin.direct [Mass/Vol] 0.10 mg/dL 0.03-0.18 [facility] Bilirubin.total [Mass/volume ] in Serum or PlasmaOrdered By: Tate Marcial on 05-16-2023 Bilirubin [Mass/Vol] 0.4 mg/dL 0.3-1.0 [facility] COVID CepheidOrdered By: Tevin Marcial on 05-16-2023 SARS-CoV-2 (COVID-19) Ab IA Ql Negative Negative [facility] Comment on above: This is a duplicate [employer] [place] Xpert Xpress CoV-2/Flu/RSV Plus RNA by RT-PCR result to be used for statistical tracking purpose only. SARS-CoV-2 (COVID-19) RNA JUANA+probe Ql (Unsp spec) [facility] Calcium [Mass/volume] in Ser um or PlasmaOrdered By: Tate Marcial on 05-16-2023 Calcium [Mass/Vol] 8.8 mg/dL 8.6-10.3 [facility] Carbon dioxide, total [Moles /volume] in Serum or PlasmaOrdered By: Tate Marcial on 05-16-2023 CO2 [Moles/Vol] 23.7 mmol/L 21.0-31.0 [facility] Chloride [Moles/volume] in S phoebe or PlasmaOrdered By: Tate Marcial on 05-16-2023 Chloride [Moles/Vol] 107 mmol/L 98-107 [facility] Color Auto (U)Ordered By: Chito red Aggie on 05-16-2023 Color (U) Yellow Yellow [facility] Creatinine [Mass/volume] in Serum or PlasmaOrdered By: Tate Marcial on 05-16-2023 Creatinine [Mass/Vol] 0.67 mg/dL 0.60-1.20 [facility] Eosinophils Auto (Bld) [#/Vo l]Ordered By: Tate Marcial on 05-16-2023 Eosinophils (Bld) [#/Vol] 0.4 10*3/uL 0.0-0.45 [facility] Eosinophils/100 WBC Auto (Bl d)Ordered By: Tate Marcial on 05-16-2023 Eosinophils/100 WBC (Bld) 3.3 % . [facility] Erythrocyte distribution wid th Auto (RBC) [Ratio]Ordered By: Tate Marcial on 05-16-2023 Erythrocyte distribution width (RBC) [Ratio] 12.4 % 11.9-15.3 [facility] Globulin Calc (S) [Mass/Vol] Ordered By: Tate Marcial on 05-16-2023 Globulin (S) [Mass/Vol] 3.4 g/dL [facility] Glucose [Mass/volume] in Ser um or PlasmaOrdered By: Tate Marcial on 05-16-2023 Glucose [Mass/Vol] 114 mg/dL 70-100 [facility] Comment on above: ADA recommended refe rence rangeRandom Glucose Reference Range is dependent on time and content of last meal. Glucose of more than 200 mg/dL in a nonstressed, ambulatory subject supports the diagnosis of Diabetes Mellitus. HCG ( test) IA.rapi d Ql (U)Ordered By: Tate Marcial on 05-16-2023 HCG ( test) Ql (U) Negative [facility] Hematocrit Auto (Bld) [Volum e fraction]Ordered By: Tate Marcial on 05-16-2023 Hematocrit (Bld) [Volume fraction] 37.4 % 34.0-46.4 [facility] Hemoglobin [Mass/volume] in BloodOrdered By: Tate Marcial on 05-16-2023 Hemoglobin (Bld) [Mass/Vol] 12.4 g/dL 11.8-15.4 [facility] Ketones Auto test strip (U) [Mass/Vol]Ordered By: Tate Marcial on 05-16-2023 Ketones (U) [Mass/Vol] Negative [facility] - UrinalysisOrder ed By: Tate Marcial on 05-16-2023 Hyaline casts LM Ql (Urine sed) None seen [LPF] 0-8 [facility] Leukocytes [#/volume] correc rachelle for nucleated erythrocytes in Blood by Automated counOrdered By: Tate Marcial on 05-16-2023 WBC corrected for nucl RBC Auto (Bld) [#/Vol] 13.0 10*3/uL 3.8-11.6 [facility] Lipase [Enzymatic activity/v olume] in Serum or PlasmaOrdered By: Tate Marcial on 05-16-2023 Lipase [Catalytic activity/Vol] 8.0 U/L 11.0-82.0 [facility] Lymphocytes Auto (Bld) [#/Vo l]Ordered By: Tate Marcial on 05-16-2023 Lymphocytes (Bld) [#/Vol] 1.8 10*3/uL 1.00-4.8 [facility] Lymphocytes/100 WBC Auto (Bl d)Ordered By: Tate Marcial on 05-16-2023 Lymphocytes/100 WBC (Bld) 14.1 % . [facility] MCH Auto (RBC) [Entitic mass ]Ordered By: Tate Marcial on 05-16-2023 MCH (RBC) [Entitic mass] 29.2 pg 24.7-34.3 [facility] MCHC Auto (RBC) [Mass/Vol]Or dered By: Tate Marcial on 05-16-2023 MCHC (RBC) [Mass/Vol] 33.1 g/dL 32.0-35.0 [facility] MCV Auto (RBC) [Entitic vol] Ordered By: Tate Marcial on 05-16-2023 MCV (RBC) [Entitic vol] 88.3 fL 80-100 [facility] Monocyte distribution width [Entitic volume] in Blood by AutomatedOrdered By: Tate Marcial on 05-16-2023 Monocyte distribution width Auto (Bld) [Entitic vol] 21.09 % 0.00-20.00 [facility] Comment on above: For adults in ED, MD W > 20.0 may be associated with a higher risk of sepsis during the first 12 hrs of hospital admission Monocytes Auto (Bld) [#/Vol] Ordered By: Tate Marcial on 05-16-2023 Monocytes (Bld) [#/Vol] 0.8 10*3/uL 0.0-0.8 [facility] Monocytes/100 WBC Auto (Bld) Ordered By: Tate Marcial on 05-16-2023 Monocytes/100 WBC (Bld) 6.0 % . [facility] Neutrophils Auto (Bld) [#/Vo l]Ordered By: Tate Marcial on 05-16-2023 Neutrophils (Bld) [#/Vol] 9.9 10*3/uL 1.8-7.7 [facility] Neutrophils/100 WBC Auto (Bl d)Ordered By: Tate Marcial on 05-16-2023 Neutrophils/100 WBC (Bld) 76.2 % . [facility] Nitrite Test strip Ql (U)Ord ered By: Tate Marcial on 05-16-2023 Nitrite Ql (U) Negative Negative [facility] No Panel InformationOrdered By: Tate Marcial on 05-16-2023 Estimated GFR (CKD-EPI) > 60.0 mL/Min [facility] Creatinine Clearance (Chem 119.04 [facility] Nucleated erythrocytes [Pres ence] in Blood by Automated countOrdered By: Tate Marcial on 05-16-2023 Nucleated RBC Auto Ql (Bld) 0.1 /100{WBC} 0-0.5 [facility] Platelet mean volume Auto (B ld) [Entitic vol]Ordered By: Tate Marcial on 05-16-2023 Platelet mean volume (Bld) [Entitic vol] 7.3 fL 6.3-10.7 [facility] Platelets Auto (Bld) [#/Vol] Ordered By: Tate Marcial on 05-16-2023 Platelets (Bld) [#/Vol] 249 10*3/uL 150-450 [facility] Potassium [Moles/volume] in Serum or PlasmaOrdered By: Tate Marcial on 05-16-2023 Potassium [Moles/Vol] 3.7 mmol/L 3.5-5.1 [facility] Protein Auto test strip (U) [Mass/Vol]Ordered By: Tate Marcial on 05-16-2023 Protein (U) [Mass/Vol] Negative Negative [facility] Protein [Mass/volume] in Ser um or PlasmaOrdered By: Tate Marcial on 05-16-2023 Protein [Mass/Vol] 7.5 g/dL 6.4-8.9 [facility] RBC Auto (Bld) [#/Vol]Ordere d By: Tate Marcial on 05-16-2023 RBC (Bld) [#/Vol] 4.24 10*6/uL 3.60-5.00 [facility] Serum or plasma albumin/glob ulin mass ratioOrdered By: Tate Marcial on 05-16-2023 Albumin/Globulin [Mass ratio] 1.2 {ratio} [facility] Serum or plasma anion gap de terminationOrdered By: Tate Marcail on 05-16-2023 Anion gap [Moles/Vol] 12.0 mmol/L 6.0-15.0 [facility] Serum or plasma non-glucuron idated bilirubin measurement (mass/volume)Ordered By: Tate Marcial on 05-16-2023 Bilirubin.indirect [Mass/Vol] 0.3 mg/dL [facility] Sodium [Moles/volume] in Ser um or PlasmaOrdered By: Tate Marcial on 05-16-2023 Sodium [Moles/Vol] 139 mmol/L 136-145 [facility] Specific gravity Auto test s trip (U) [Rel density]Ordered By: Tate Marcial on 05-16-2023 Specific gravity (U) [Rel density] > 1.050 1.001-1.03 0 [facility] Squamous epithelial cells de tection in urine sediment by light microscopyOrdered By: Tate Marcial on 05-16-2023 Epithelial cells.squamous LM Ql (Urine sed) 5-9 [HPF] 0-2 [facility] Urea nitrogen [Mass/volume] in Serum or PlasmaOrdered By: Tate Marcial on 05-16-2023 Urea nitrogen [Mass/Vol] 9 mg/dL 7-25 [facility] Urine bacteria detection by automated methodOrdered By: Tate Marcial on 05-16-2023 Bacteria Auto Ql (U) None seen None Seen [facility] Urine clarity by refractomet ry automatedOrdered By: Tate Marcial on 05-16-2023 Clarity Refractometry automated (U) Clear Clear [facility] Urine glucose measurement by automated test strip (mass/volume)Ordered By: Tate Marcial on 05-16-2023 Glucose Auto test strip (U) [Mass/Vol] Normal mg/dL Normal [facility] Urine hemoglobin detection b y automated test stripOrdered By: Tate Marcial on 05-16-2023 Hemoglobin Auto test strip Ql (U) 1+ Negative [facility] Urine leukocyte esterase det ection by automated test stripOrdered By: Tate Marcial on 05-16-2023 Leukocyte esterase Auto test strip Ql (U) Negative Negative [facility] Urobilinogen Auto test strip (U) [Mass/Vol]Ordered By: Tate Marcial on 05-16-2023 Urobilinogen (U) [Mass/Vol] Normal mg/dL Normal [facility] WBC Auto (Bld) [#/Vol]Ordere d By: Tate Marcial on 05-16-2023 WBC (Bld) [#/Vol] 13.0 10*3/uL 3.8-11.6 [facility] pH Auto test strip (U)Ordere d By: Tate Marcial on 05-16-2023 pH (U) 6.5 [pH] 5.0-9.0 [facility] Alanine aminotransferase [En zymatic activity/volume] in Serum or PlasmaOrdered By: Elpidio Myles on 05-12-2023 ALT [Catalytic activity/Vol] 11 U/L 7-52 [facility] Albumin [Mass/volume] in Ser um or Plasma by Bromocresol green (BCG) dye binding methoOrdered By: Elpidio Myles on 05-12-2023 Albumin BCG dye [Mass/Vol] 4.2 g/dL 3.5-5.7 [facility] Alkaline phosphatase [Enzyma tic activity/volume] in Serum or PlasmaOrdered By: Elpidio Myles on 05-12-2023 ALP [Catalytic activity/Vol] 99 U/L 34-104 [facility] Aspartate aminotransferase [ Enzymatic activity/volume] in Serum or PlasmaOrdered By: Elpidio Myles on 05-12-2023 AST [Catalytic activity/Vol] 12 U/L 13-39 [facility] Automated erythrocytes count in urine sediment (number/area)Ordered By: Elpidio Myles on 05-12-2023 RBC Auto (Urine sed) [#/Area] 5-9 [HPF] 0-4 [facility] Automated leukocytes count i n urine sediment (number/area)Ordered By: Elpidio Myles on 05-12-2023 WBC Auto (Urine sed) [#/Area] 5-9 [HPF] 0-4 [facility] Basophils Auto (Bld) [#/Vol] Ordered By: Elpidio Myles on 05-12-2023 Basophils (Bld) [#/Vol] 0.1 10*3/uL 0.0-0.2 [facility] Basophils/100 WBC Auto (Bld) Ordered By: Elpidio Myles on 05-12-2023 Basophils/100 WBC (Bld) 0.6 % . [facility] Bilirubin Test strip Ql (U)O rdered By: Elpidio Myles on 05-12-2023 Bilirubin Ql (U) Negative Negative [facility] Bilirubin.direct [Mass/volum e] in Serum or PlasmaOrdered By: Elpidio Myles on 05-12-2023 Bilirubin.direct [Mass/Vol] 0.10 mg/dL 0.03-0.18 [facility] Bilirubin.total [Mass/volume ] in Serum or PlasmaOrdered By: Elpidio Myles on 05-12-2023 Bilirubin [Mass/Vol] 0.6 mg/dL 0.3-1.0 [facility] Calcium [Mass/volume] in Ser um or PlasmaOrdered By: Elpidio Myles on 05-12-2023 Calcium [Mass/Vol] 9.0 mg/dL 8.6-10.3 [facility] Carbon dioxide, total [Moles /volume] in Serum or PlasmaOrdered By: Elpidio Myles on 05-12-2023 CO2 [Moles/Vol] 26.7 mmol/L 21.0-31.0 [facility] Chloride [Moles/volume] in S phoebe or PlasmaOrdered By: Elpidio Myles on 05-12-2023 Chloride [Moles/Vol] 106 mmol/L 98-107 [facility] Color Auto (U)Ordered By: Juan F Myles on 05-12-2023 Color (U) Yellow Yellow [facility] Creatinine [Mass/volume] in Serum or PlasmaOrdered By: Elpidio Myles on 05-12-2023 Creatinine [Mass/Vol] 0.68 mg/dL 0.60-1.20 [facility] Eosinophils Auto (Bld) [#/Vo l]Ordered By: Elpidio Myles on 05-12-2023 Eosinophils (Bld) [#/Vol] 0.2 10*3/uL 0.0-0.45 [facility] Eosinophils/100 WBC Auto (Bl d)Ordered By: Elpidio Myles on 05-12-2023 Eosinophils/100 WBC (Bld) 1.7 % . [facility] Erythrocyte distribution wid th Auto (RBC) [Ratio]Ordered By: Elpidio Myles on 05-12-2023 Erythrocyte distribution width (RBC) [Ratio] 12.5 % 11.9-15.3 [facility] Globulin Calc (S) [Mass/Vol] Ordered By: Elpidio Myles on 05-12-2023 Globulin (S) [Mass/Vol] 3.7 g/dL [facility] Glucose [Mass/volume] in Ser um or PlasmaOrdered By: Elpidio Myles on 05-12-2023 Glucose [Mass/Vol] 86 mg/dL 70-100 [facility] Comment on above: ADA recommended refe rence rangeRandom Glucose Reference Range is dependent on time and content of last meal. Glucose of more than 200 mg/dL in a nonstressed, ambulatory subject supports the diagnosis of Diabetes Mellitus. HCG ( test) IA.rapi d Ql (U)Ordered By: Elpidio Myles on 05-12-2023 HCG ( test) Ql (U) Negative [facility] Hematocrit Auto (Bld) [Volum e fraction]Ordered By: Elpidio Myles on 05-12-2023 Hematocrit (Bld) [Volume fraction] 39.5 % 34.0-46.4 [facility] Hemoglobin [Mass/volume] in BloodOrdered By: Elpidio Myles on 05-12-2023 Hemoglobin (Bld) [Mass/Vol] 12.8 g/dL 11.8-15.4 [facility] Ketones Auto test strip (U) [Mass/Vol]Ordered By: Elpidio Myles on 05-12-2023 Ketones (U) [Mass/Vol] Negative Negative [facility] Laboratory - UrinalysisOrder ed By: Elpidio Myles on 05-12-2023 Hyaline casts LM Ql (Urine sed) 0-8 [LPF] 0-8 [facility] Leukocytes [#/volume] correc rachelle for nucleated erythrocytes in Blood by Automated counOrdered By: Elpidio Myles on 05-12-2023 WBC corrected for nucl RBC Auto (Bld) [#/Vol] 13.1 10*3/uL 3.8-11.6 [facility] Lipase [Enzymatic activity/v olume] in Serum or PlasmaOrdered By: Elpidio Myles on 05-12-2023 Lipase [Catalytic activity/Vol] 10.0 U/L 11.0-82.0 [facility] Lymphocytes Auto (Bld) [#/Vo l]Ordered By: Elpidio Myles on 05-12-2023 Lymphocytes (Bld) [#/Vol] 2.9 10*3/uL 1.00-4.8 [facility] Lymphocytes/100 WBC Auto (Bl d)Ordered By: Elpidio Myles on 05-12-2023 Lymphocytes/100 WBC (Bld) 21.8 % . [facility] MCH Auto (RBC) [Entitic mass ]Ordered By: Elpidio Myles on 05-12-2023 MCH (RBC) [Entitic mass] 28.9 pg 24.7-34.3 [facility] MCHC Auto (RBC) [Mass/Vol]Or dered By: Elpidio Myles on 05-12-2023 MCHC (RBC) [Mass/Vol] 32.5 g/dL 32.0-35.0 [facility] MCV Auto (RBC) [Entitic vol] Ordered By: Elpidio Myles on 05-12-2023 MCV (RBC) [Entitic vol] 88.7 fL 80-100 [facility] Monocyte distribution width [Entitic volume] in Blood by AutomatedOrdered By: Elpidio Myles on 05-12-2023 Monocyte distribution width Auto (Bld) [Entitic vol] 18.29 % 0.00-20.00 [facility] Monocytes Auto (Bld) [#/Vol] Ordered By: Elpidio Myles on 05-12-2023 Monocytes (Bld) [#/Vol] 0.8 10*3/uL 0.0-0.8 [facility] Monocytes/100 WBC Auto (Bld) Ordered By: Elpidio Myles on 05-12-2023 Monocytes/100 WBC (Bld) 6.1 % . [facility] Neutrophils Auto (Bld) [#/Vo l]Ordered By: Elpidio Myles on 05-12-2023 Neutrophils (Bld) [#/Vol] 9.1 10*3/uL 1.8-7.7 [facility] Neutrophils/100 WBC Auto (Bl d)Ordered By: Elpidio Myles on 05-12-2023 Neutrophils/100 WBC (Bld) 69.8 % . [facility] Nitrite Test strip Ql (U)Ord ered By: Elpidio Myles on 05-12-2023 Nitrite Ql (U) Negative Negative [facility] No Panel InformationOrdered By: Elpidio Myles on 05-12-2023 Estimated GFR (CKD-EPI) > 60.0 mL/Min [facility] Creatinine Clearance (Chem 116.96 [facility] Nucleated erythrocytes [Pres ence] in Blood by Automated countOrdered By: Elpidio Myles on 05-12-2023 Nucleated RBC Auto Ql (Bld) 0.1 /100{WBC} 0-0.5 [facility] Platelet mean volume Auto (B ld) [Entitic vol]Ordered By: Elpidio Myles on 05-12-2023 Platelet mean volume (Bld) [Entitic vol] 7.4 fL 6.3-10.7 [facility] Platelets Auto (Bld) [#/Vol] Ordered By: Elpidio Myles on 05-12-2023 Platelets (Bld) [#/Vol] 254 10*3/uL 150-450 [facility] Potassium [Moles/volume] in Serum or PlasmaOrdered By: Elpidio Myles on 05-12-2023 Potassium [Moles/Vol] 4.2 mmol/L 3.5-5.1 [facility] Protein Auto test strip (U) [Mass/Vol]Ordered By: Elpidio Myles on 05-12-2023 Protein (U) [Mass/Vol] Negative Negative [facility] Protein [Mass/volume] in Ser um or PlasmaOrdered By: Elpidio Myles on 05-12-2023 Protein [Mass/Vol] 7.9 g/dL 6.4-8.9 [facility] RBC Auto (Bld) [#/Vol]Ordere d By: Elpidio Myles on 05-12-2023 RBC (Bld) [#/Vol] 4.45 10*6/uL 3.60-5.00 [facility] Serum or plasma albumin/glob ulin mass ratioOrdered By: Elpidio Myles on 05-12-2023 Albumin/Globulin [Mass ratio] 1.1 {ratio} [facility] Serum or plasma anion gap de terminationOrdered By: Elpidio Myles on 05-12-2023 Anion gap [Moles/Vol] See comment 6.0-15.0 [facility] Comment on above: Specimen hemolyzed, redraw requested Serum or plasma non-glucuron idated bilirubin measurement (mass/volume)Ordered By: Elpidio Myles on 05-12-2023 Bilirubin.indirect [Mass/Vol] See comment [facility] Comment on above: Specimen hemolyzed, redraw requested Sodium [Moles/volume] in Ser um or PlasmaOrdered By: Elpidio Myles on 05-12-2023 Sodium [Moles/Vol] 139 mmol/L 136-145 [facility] Specific gravity Auto test s trip (U) [Rel density]Ordered By: Elpidio Myles on 05-12-2023 Specific gravity (U) [Rel density] 1.011 1.001-1.03 0 [facility] Squamous epithelial cells de tection in urine sediment by light microscopyOrdered By: Elpidio Myles on 05-12-2023 Epithelial cells.squamous LM Ql (Urine sed) 5-9 [HPF] 0-2 [facility] Urea nitrogen [Mass/volume] in Serum or PlasmaOrdered By: Elpidio Myles on 05-12-2023 Urea nitrogen [Mass/Vol] 12 mg/dL 7-25 [facility] Urine bacteria detection by automated methodOrdered By: Elpidio Myles on 05-12-2023 Bacteria Auto Ql (U) None seen None Seen [facility] Urine clarity by refractomet ry automatedOrdered By: Elpidio Myles on 05-12-2023 Clarity Refractometry automated (U) Clear Clear [facility] Urine culture routineOrdered By: Elpidio Myles on 05-12-2023 Bacteria identified Cx Nom (U) 2 Days [facility] Urine glucose measurement by automated test strip (mass/volume)Ordered By: Elpidio Myles on 05-12-2023 Glucose Auto test strip (U) [Mass/Vol] Normal mg/dL Normal [facility] Urine hemoglobin detection b y automated test stripOrdered By: Elpidio Myles on 05-12-2023 Hemoglobin Auto test strip Ql (U) Trace Negative [facility] Urine leukocyte esterase det ection by automated test stripOrdered By: Elpidio Myles on 05-12-2023 Leukocyte esterase Auto test strip Ql (U) 1+ Negative [facility] Urobilinogen Auto test strip (U) [Mass/Vol]Ordered By: Elpidio Myles on 05-12-2023 Urobilinogen (U) [Mass/Vol] Normal mg/dL Normal [facility] WBC Auto (Bld) [#/Vol]Ordere d By: Elpidio Myles on 05-12-2023 WBC (Bld) [#/Vol] 13.1 10*3/uL 3.8-11.6 [facility] pH Auto test strip (U)Ordere d By: Elpidio Myles on 05-12-2023 pH (U) 7.5 [pH] 5.0-9.0 [facility] MR CERVICAL SPINE WO CONTRAS Ton 05-08-2023 [...] BY: Angel Nicholson MD Normal Not Available [facility] US LOWER EXTREMITY VENO US DUPLEX RIGHTon 05-01-2023 [facility] US LOWER EXTREMITY VENOUS DUPLEX RIGHT EXAM: [facility] US LOWER EXTREMITY VENOUS DUPLEX RIGHT TECHNIQUE: [...] the right lower extremity. ELECTRONICALLY SIGNED BY: Harvey Francis DO Normal Not Available Consent for Treatmenton Consent for Treatment [id number] Normal [facility] Discharge Instructionson Discharge Instructions [id number] Normal [facility] ED Clinical Summaryon 2022 ED Clinical Summary (Inserted Image. Cristina ble to display) [place] [id number] ED Clinical Summary Person Information Name: TRACIE SAMUELS [place] Age: 32 Years : 1990 Sex: Female Language: Tuvaluan PCP: KATLIN FERNANDEZ DO Marital Status: Single [...] 01/26/2023 17:23:16 01/26/2023 17:23:16 01/26/2023 17:23:16 ADDRESS: [address] [place] [address] [address] [facility] [id number] PHYS DOC NOTES: MEDICAL INFORMATION: Prescriptions Given: [...] Follow up: With: Address: When: KATLIN FERNANDEZ [place], [place] [facility] ([facility] In 3 days 01/29/2023 DIAGNOSIS: Right shoulder pain Normal [facility] ED Note-Physicianon 01-27-20 ED Note-Physician Basic [...] previously. She states she has not taken [id number] Motrin. No new injuries. No acute weakness [...] Information KATLIN FERNANDEZ In 3 days 01/29/2023 [place], [place] Business (1) Additional Instructions: Patient Education Shoulder Pain Attestation Patient seen and evaluated by the physician assistant therapy aide. Attending physician was present in the emergency department and supervised care. This visit was performed by both the physician and an APC. I performed all aspects of the MDM as documented. This report was transcribed using voice recognition software. Every effort was made to ensure accuracy, however, inadvertently computerized pharmacy tech customer service mistakes may be present. Appropriate healthcare PPE [...] mg oral (more content not included)... Normal [facility] Comment on above: Result Comment: Elec tronically [...] strengthen the arm. General instructions ? Take ewoe-dfi-owdywym and prescription medicines only as told by [...] provider. Document Revised: 10/28/2021 Document Reviewed: 10/28/2021 Act[employer] Learn Patient Education ? 2022 [employer]. Normal [facility] ED Patient Summaryon 023 ED Patient Summary (Inserted Image. Cristina ble to display) [place] [address] Patient Discharge Instructions Person Information Name: TRACIE SAMUELS Age: 32 Years Arrival Date: 01/26/2023 16:22:11 Discharge Diagnosis: Right shoulder pain Primary Care Physician: KATLIN FERNANDEZ DO Provider Information Primary Provider: Jass Meek DO Advanced Assistant Therapy Aide:Jax Lassiter PA-C The exam and treatment you received in the Emergency Department were for an urgent problem and are not intended as complete care. It is important that you follow up with a doctor, nurse practitioner, or physician?s assistant therapy aide for ongoing care. If your symptoms become worse or you do not improve as expected and you are unable to reach your usual health care provider, you should return to the Emergency Department. We are available 24 hours a day. TRACIE SAMUELS has been given the following list of patient education materials, prescriptions and follow-up instructions: Follow-up Instructions: With: Address: When: KATLIN WICK ID Business (1) In 3 days 01/29/2023 In the event that this physician does not participate in your insurance network, please consult with your insurance company to find a nearby participating provider. Patient Education Materials: Shoulder Pain A MESSAGE TO ALL PATIENTS REGARDING OPIOIDS PRESCRIPTION OPIOIDS: WHAT YOU NEED TO KNOW Prescription opioids can be used to help relieve xoizypui-lk-bhgrkg pain and are often prescribed following a [...] be struggling with addiction, tell your health primary care sales representative and ask for guidance or call [facility] National Helpline at 6-923-877-IUPI. Source: [place] Department of Health and Human Ser (more content not included)... Normal [facility] ED Note-Physicianon 01-26-20 ED Note-Physician Basic Information Time Seen: Sushila Rudolph PA-C 01/21/2023 15:49 Chief Complaint pt c\o R [...] head. No ecchymosis, erythema nor edema. 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 No pain with isolated passive ROM [...] needed for pain, 6 tab(s), Refill(s) 0, [facility], 149, cm, 01/21/23 13:50:00 EST, Height/Length [...] ORT In 3 days 01/24/2023 EST [address] [place] [address]- Additional Instructions: Additional Instructions: Call [...] if you develop (more content not included)... Normal [facility] Comment on above: Result Comment: Elec tronically Signed By: Sushila Rudolph PA-C\.br\Date and Time Signed: 01/21/23 16:30 EST\.br\Electronically Co-Signed By: Juan Antonio Hooper MD\.br\Date and Time Co-Signed: 01/25/23 20:56 EST Consent for Treatmenton 12-28 Consent for Treatment [id number] Normal [facility] Discharge Instructionson Discharge Instructions [id number] Normal [facility] ED Clinical Summaryon 2022 ED Clinical Summary (Inserted Image. Cristina ble to display) [address] [address] ED Clinical Summary Person Information Name: TRACIE SAMUELS [facility] Age: 32 Years : 1990 Sex: Female Language: Tuvaluan PCP: KATLIN FERNANDEZ DO Marital Status: Single [...] 01/21/2023 16:41:20 01/21/2023 16:41:20 01/21/2023 16:41:20 ADDRESS: [address] [place] [address] [address] [facility] [id number] PHYS DOC NOTES: MEDICAL INFORMATION: Prescriptions Given: Medications to Continue Taking That Have Changed [employer] [address], [address] [place] [id number], [phone] START: acetaminophen-oxycodone (Percocet 5 mg-325 mg oral [...] for nausea/vomitin (more content not included)... Normal [facility] ED Patient Education Noteon 01-21-2023 ED Patient [...] strengthen the arm. General instructions ? Take xtta-zmj-youizla and prescription medicines only as told by [...] provider. Document Revised: 10/28/2021 Document Reviewed: 10/28/2021 Actively Learn Patient Education ? 2022 [employer]. Normal [facility] ED Patient Summaryon 023 ED Patient Summary (Inserted Image. Cristina ble to display) [address] [address] Patient Discharge Instructions Person Information Name: TRACIE SAMUELS Age: 32 Years Arrival Date: 01/21/2023 13:24:05 Discharge Diagnosis: 1:Pain in right shoulder Primary Care Physician: KATLIN FERNANDEZ DO Provider Information Primary Provider: Advanced Assistant Therapy Aide:Klaudia POWER, Sushila Mckenna The exam and treatment you received in the Emergency Department were for an urgent problem and are not intended as complete care. It is important that you follow up with a doctor, nurse practitioner, or physician?s assistant therapy aide for ongoing care. If your symptoms become worse or you do not improve as expected and you are unable to reach your usual health care provider, you should return to the Emergency Department. We are available 24 hours a day. TRACIE SAMUELS has been given the following list of patient education materials, prescriptions and follow-up instructions: Follow-up Instructions: With: Address: When: Abraham DO, AKASH Crain [address] [place], [place] [id number] In 3 days 01/24/2023 In the event that this physician does not participate in your insurance network, please consult with your insurance company to find a nearby participating provider. Patient Education Materials: Shoulder Pain, Gpbi-ot-Bliy A MESSAGE TO ALL PATIENTS REGARDING OPIOIDS PRESCRIPTION OPIOIDS: WHAT YOU NEED TO KNOW Prescription opioids can be used to help relieve xoyurbby-jv-ekgeiz pain and are often prescribed following a [...] be struggling with addiction, tell your health primary care sales representative and ask for guidance or call [facility] National Helpline at 7-995-024-HELP. v Source: [place] Department (more content not included)... Normal [facility] Prescriptions/Work Noteson 1 03-23-2022 Prescriptions/Work Notes [id number]#[id number] [facility] XR Shoulder Complete Righton 01-21-2023 XR Shoulder [...] mGy = na DAP = na Normal [facility] CHEMISTRYOrdered By: SYSTEM SYSTEM on 08-25-2022 Albumin [...] 99 mL/min/1.73 m2 Normal >=59mL/min /1.73 m2 [facility] Chem S Globulin (S) [Mass/Vol] 4.2 g/dL [...] 3.6 E9/L Normal 2.0 - 7.5 E9/L FT HemeAutoSS HEMATOLOGYOrdered By: Sanju Escobedo on 08-25-2022 Erythrocyte distribution width (RBC) [Ratio] 13.0 % Normal 10.9 - 14.2 % [facility]eAutoSS Hematocrit (Bld) [Volume fraction] 39.5 % Normal 34.0 - 46.0 % [facility] Hemoglobin (Bld) [Mass/Vol] 13.3 g/dL Normal 12.0 - 16.0 gm/dL [facility] MCH (RBC) [Entitic mass] 29.2 pg Normal 27.0 - 34.0 pg [facility] MCHC (RBC) [Mass/Vol] 33.7 g/dL Normal 31.4 - 36.0 gm/dL [facility] MCV (RBC) [Entitic vol] 86.9 fL Normal 80.0 - 100.0 fL [facility] Platelet mean volume (Bld) [Entitic vol] 7.5 fL Normal 6.4 - 10.8 fL [facility] Platelets (Bld) [#/Vol] 229.0 E9/L Normal 150.0 - 500.0 E9/L [facility] RBC (Bld) [#/Vol] 4.6 E12/L Normal 4.3 - 5.9 E12/L [facility] WBC corrected for nucl RBC Auto (Bld) [#/Vol] 6.0 E9/L Normal 4.0 - 11.0 E9/L [facility] SEROLOGYOrdered By: Sanju rowe on 08-25-2022 Beta hCG Ql Negative (08/25/22 7:09 PM) Normal [facility] Man Sero A1C HEMOGLOBINon 04-11-2022 HbA1c (Bld) [Mass fraction] 5.3 % [facility] Other COVID + FLU Quick Testingon 04-11-2022 SARS-CoV-2 (COVID-19) RNA JUANA+probe Ql (Unsp spec) Negative [facility] Other COVID + FLU Quick Testing Negative [facility] Other Quick Strepon 02-14-2023 S. pyogenes Org specific cx Ql (Throat) Negative [facility] Other Quick Strep [facility] Other CHEMISTRYOrdered By: SYSTEM SYSTEM on 03-10-2022 [...] [facility] Remisol Ethanol [Mass/Vol] mg/dL Normal <=7mg/dL [facility] R emisol GFR/1.73 sq M.predicted among blacks MDRD (S/P/Bld) [Vol rate/Area] mL/min/1.73 m2 Normal >=59mL/min /1.73 m2 [facility] Chem S GFR/1.73 sq M.predicted among non-blacks MDRD (S/P/Bld) [Vol rate/Area] mL/min/1.73 m2 Normal >=59mL/min /1.73 m2 [facility] Chem S Globulin (S) [Mass/Vol] 4.3 g/dL [...] Result UD_THC:POS Called to SAE MARTIN AT ER by ALETHEA ARANA And Read Back For [...] hCG Ql Negative (03/10/22 9:06 PM) Normal [facility] Man [facility]ero CHEMISTRYOrdered By: SYSTEM SYSTEM on [...] 0.7 mg/dL Normal 0.5 - 1.3 mg/dL [facility] Remisol GFR/1.73 sq M.predicted among blacks MDRD (S/P/Bld) [Vol rate/Area] mL/min/1.73 m2 Normal >=59mL/min /1.73 m2 [facility] Chem S GFR/1.73 sq M.predicted among non-blacks MDRD (S/P/Bld) [Vol rate/Area] mL/min/1.73 m2 Normal >=59mL/min /1.73 m2 [facility] Chem S Globulin (S) [Mass/Vol] 3.6 g/dL Normal 1.4 - 4.0 gm/dL [facility] Remisol Glucose [Mass/Vol] 96 mg/dL Normal 55 - 199 mg/dL [facility] Lipase [Catalytic activity/Vol] 34 U/L Normal 13 - 58 unit/L [facility] Magnesium [Mass/Vol] 1.9 mg/dL Normal 1.3 [...] 7.5 E9/L [facility] HEMATOLOGYOrdered By: Jada Chowdhury on 01-25-2022 Erythrocyte distribution width (RBC) [Ratio] [...] AM) Normal Negative [facility] UA Auto SS [place].plasma/[place] .RBC (Bld) [Mass ratio] 4-20 /HPF Normal [...] [facility] UA Auto SS Urobilinogen Qn (U) 0.7201631 {Ag'U}/dL Normal 0.0 - 1.0 EU/dL [facility] UA Auto SS WBC Auto Ql (U) [...] m2 [facility] Chem S Globulin (S) [Mass/Vol] 4.0 g/dL Normal 1.4 - 4.0 gm/dL [facility] Remisol Glucose [Mass/Vol] 110 mg/dL Normal 55 - 199 mg/dL [facility] Remisol Lipase [Catalytic activity/Vol] 31 U/L Normal 13 - 58 unit/L [facility] Remisol Potassium [Moles/Vol] 3.8 mmol/L Normal 3.5 [...] 12.4 E9/L High 4.0 - 11.0 E9/L [facility]eAutoSS SEROLOGYOrdered By: Sanju rowe on 12-27-2021 [...] PM) Normal Negative [facility] UA Auto SS [place].plasma/[place] .RBC (Bld) [Mass ratio] 0-3 /HPF Normal [...] 1.005 - 1.030 [facility] UA Auto SS UA Spec Desc Clean Catch (12/27/21 8:55 PM) Normal [facility] UA Auto SS Urobilinogen Qn (U) 0.5095989 {Ag'U}/dL Normal 0.0 - 1.0 EU/dL [facility] UA Auto SS WBC Auto Ql (U) Negative (12/27/21 8:55 PM) Normal Negative [facility] UA Auto SS WBC LM.HPF (Urine sed) [#/Area] 0-5 /HPF Normal 0-5/HPF [facility] UA Auto SS Urinalysis - AUTOMATEDon Appearance (U) clear [facility] Other Bilirubin Ql (U) Negative [facility] Other Color (U) yellow [facility] Other Glucose Ql (U) Negative [facility] Other Hemoglobin Ql (U) 2+ [place] Other Ketones Ql (U) Negative [facility] Other Leukocyte esterase Test strip Ql (U) trace [facility] Other Nitrite Ql (U) negtaive [facility] Other pH (U) 6.0 [pH] [facility] Other Protein Ql (U) Negative [facility] Other Specific gravity (U) [Rel density] >=1.030 [facility] Other Urobilinogen (U) [Mass/Vol] 0.2 mg/dL [facility] Other Urinalysis - AUTOMATED No rt 480 [employer] Other CHEMISTRYOrdered By: SYSTEM SYSTEM on 11-08-2021 Anion gap [Moles/Vol] 10 mmol/L Normal 6 - 16 mEq/L [facility] Remisol Calcium [Mass/Vol] 8.5 mg/dL Low 8.9 - 11. 1 mg/dL [facility] Remisol Chloride [Moles/Vol] 108 mmol/L Normal 101 - 1 11 mmol/L [facility] CO2 [Moles/Vol] 24 mmol/L Normal 21 - 31 mmol/L [facility] Remisol Creatinine [Mass/Vol] 0.8 mg/dL Normal 0.5 - 1.3 mg/dL [facility] Remisol GFR/1.73 sq M.predicted among blacks MDRD (S/P/Bld) [Vol rate/Area] mL/min/1.73 m2 Normal >=59mL/min /1.73 m2 [facility] Chem S GFR/1.73 sq M.predicted among non-blacks MDRD (S/P/Bld) [Vol rate/Area] mL/min/1.73 m2 Normal >=59mL/min /1.73 m2 [facility] Chem S Glucose [Mass/Vol] 106 mg/dL Normal 55 - 199 mg/dL [facility] Remisol Potassium [Moles/Vol] 3.8 mmol/L Normal 3.5 - 5.3 mmol/L [facility] Remisol Sodium [Moles/Vol] 138 mmol/L Normal 135 - 145 mmol/L [facility] Remisol Urea nitrogen [Mass/Vol] 13 mg/dL Normal 5 - 21 mg/dL [facility] Remisol Urea nitrogen/Creatinine [Mass ratio] 16 mg/mg [...] hCG Ql Negative (11/08/21 6:40 AM) Normal [facility] URINALYSISOrdered By: Derick Jacobson on [...] AM) Normal Negative [facility] UA Auto SS [place].plasma/[place] .RBC (Bld) [Mass ratio] 4-20 /HPF Normal [...] [facility] UA Auto SS Urobilinogen Qn (U) 0.8348578 {Ag'U}/dL Normal 0.0 - 1.0 EU/dL [facility] UA Auto SS WBC Auto Ql (U) 1+ *ABN* (11/08/21 7:34 AM) Invalid Interpretation Code Negative [facility] UA Auto SS WBC LM.HPF (Urine sed) [#/Area] 6-15 /HPF Invalid Interpretation Code 0-5/HPF [facility] UA Auto SS SEROLOGYOrdered By: Tamica Chowdhury on 10-24-2021 HCG.beta subunit (U) [Moles/Vol] Negative Normal [facility] Man Sero URINALYSISOrdered By: Pedro Pablo ron [...] PM) Normal Negative [facility] UA Auto SS [place].plasma/[place] .RBC (Bld) [Mass ratio] 4-20 /HPF Normal [...] [facility] UA Auto SS Urobilinogen Qn (U) 0.7924770 {Ag'U}/dL Normal 0.0 - 1.0 EU/dL [facility] UA Auto SS WBC Auto Ql (U) Negative (10/24/21 8:10 PM) Normal Negative [facility] UA Auto SS WBC LM.HPF (Urine sed) [#/Area] 6-15 /HPF Invalid Interpretation Code 0-5/HPF [facility] UA Auto SS MICRO OTHER TESTSOrdered By: Eva Adames on 07-20-2021 Rapid COV Int NEG Ctl Pass (07/20/21 11:46 PM) Normal [facility] Man Sero Rapid COV Int POS Ctl Pass (07/20/21 11:46 PM) Normal [facility] Man Sero S. pyogenes Ag IA.rapid Ql (Throat) Positive *ABN* (07/20/21 11:46 PM) Invalid Interpretation Code Negative [facility] Man Sero SARS-CoV+SARS-CoV-2 (COVID-19) Ag IA.rapid Ql (Resp) Not Detected (07/20/21 11:46 PM) Normal Not Detected [facility] Man [facility]ero COVID + FLU Quick Testingon 06-15-2021 SARS-CoV-2 (COVID-19) RNA JUANA+probe Ql (Unsp spec) Negative [facility] Other COVID + FLU Quick Testing Positive [facility] Other COVID + FLU Quick Testing Negative [facility] Other CBC Auto Differentialon 02-26 Basophils (Bld) [#/Vol] 0.04 10*3/uL [place] Basophils/100 WBC (Bld) 0 % 0 - 2 % [place] Differential Type NOT REPORTED [place] Eosinophils (Bld) [#/Vol] 0.29 10*3/uL [place] Eosinophils/100 WBC (Bld) 2 % 1 - 4 % [place] Erythrocyte distribution width (RBC) [Ratio] 12.7 % 11.8 - 14.4 % [place] Hematocrit (Bld) [Volume fraction] 38.0 % 36.3 - 47.1 % [place] Hemoglobin (Bld) [Mass/Vol] 12.7 g/dL 11.9 - 15.1 g/dL [place] Immature granulocytes (Bld) [#/Vol] 1 % High 0 [place] Immature granulocytes (Bld) [#/Vol] 0.07 10*3/uL [place] Interpretation and review of laboratory results Abnormal [place] Lymphocytes (Bld) [#/Vol] 4.16 10*3/uL [place] Lymphocytes/100 WBC (Bld) 35 % 24 - 43 % [place] MCH (RBC) [Entitic mass] 30.8 pg 25.2 - 33.5 pg [place] MCHC (RBC) [Mass/Vol] 33.4 g/dL 28.4 - 34.8 g/dL [place] MCV (RBC) [Entitic vol] 92.0 fL 82.6 - 102.9 fL [place] Monocytes (Bld) [#/Vol] 0.57 10*3/uL [place] Monocytes/100 WBC (Bld) 5 % 3 - 12 % [place] Platelet mean volume (Bld) [Entitic vol] 9.1 fL 8.1 - 13.5 fL [place] Platelets (Bld) [#/Vol] 262 10*3/uL [place] Platelets (Bld) [#/Vol] NOT REPORTED [place] RBC (Bld) [#/Vol] 4.13 10*6/uL 3.95 - 5.11 m/uL [place] RBC morphology finding Nom (Bld) NOT REPORTED [place] Segmented neutrophils/100 WBC (Bld) 57 % 36 - 65 % [place] Segs Absolute 6.80 [place] WBC (Bld) [#/Vol] 11.9 10*3/uL [place] WBC (Bld) [#/Vol] 0.0 10*3/uL 0.0 per 100 WBC [place] WBC Morphology NOT REPORTED [place], [place] CBC with Diffon 03-10-2020 Abs. Basophil 0.04 k/uL Normal 0.00-0.20 [facility] Comment on above: Performed By: #### L IP, CDP, CMPX #### [facility] [address] [place] [address] Recapper: Freedom Fong MD Abs.Imm.Granulocyte 0.07 k/uL Normal 0.00-0.30 [facility] Comment on above: Performed By: #### L IP, CDP, CMPX #### [facility] [address] [place] [address]. [place] [address] Recapper: Freedom Fong MD Abs.Neutrophil (Seg) 6.80 k/uL Normal 1.50-8.10 [facility] Comment on above: Performed By: #### L IP, CDP, CMPX #### [facility] [address] [place] [address]. [place] [address] Recapper: Freedom Fong MD Basophils/100 WBC (Bld) 0 % Normal 0-2 [facility] Comment on above: Performed By: #### L IP, CDP, CMPX #### [facility] [address] [place] [address]. [place] [address] Recapper: Freedom Fong MD Eosinophils (Bld) [#/Vol] 0.29 10*3/uL Normal 0.00-0.44 [facility] Comment on above: Performed By: #### L IP, CDP, CMPX #### [facility] [address] [place] [address] Recapper: Freedom Fong MD Eosinophils/100 WBC (Bld) 2 % Normal 1-4 [facility] Comment on above: Performed By: #### L IP, CDP, CMPX #### [facility] [address] [place] [address]. [place] [address] Recapper: Freedom Fong MD Erythrocyte distribution width (RBC) [Ratio] 12.7 % Normal 11.8-14.4 [facility] Comment on above: Performed By: #### L IP, CDP, CMPX #### [facility] [address] [place] [address]. [place] [address] Recapper: Freedom Fong MD Hematocrit (Bld) [Volume fraction] 38.0 % Normal 36.3-47.1 [facility] Comment on above: Performed By: #### L IP, CDP, CMPX #### [facility] [place] [address] Recapper: Freedom Fong MD Hemoglobin (Bld) [Mass/Vol] 12.7 g/dL Normal 11.9-15.1 [facility] Comment on above: Performed By: #### L IP, CDP, CMPX #### [facility] [address] [place] [address]. [place] [address] Recapper: Freedom Fong MD Immature granulocytes (Bld) [#/Vol] 1 % High 0 [facility] Comment on above: Performed By: #### L IP, CDP, CMPX #### [facility] [address] [place] [address]. [place] [address] Recapper: Freedom Fong MD Lymphocytes (Bld) [#/Vol] 4.16 10*3/uL High 1.10-3.70 [facility] Comment on above: Performed By: #### L IP, CDP, CMPX #### [facility] [address] [place] [address]. [place] [address] Recapper: Freedom Fong MD Lymphocytes/100 WBC (Bld) 35 % Normal 24-43 [facility] Comment on above: Performed By: #### L IP, CDP, CMPX #### [facility] [address] [place] [address]. [place] [address] Recapper: Freedom Fong MD MCH (RBC) [Entitic mass] 30.8 pg Normal 25.2-33.5 [facility] Comment on above: Performed By: #### L IP, CDP, CMPX #### [facility] [address] [place] [address]. [place] [address] Recapper: Freedom Fong MD MCHC (RBC) [Mass/Vol] 33.4 g/dL Normal 28.4-34.8 [facility] Comment on above: Performed By: #### L IP, CDP, CMPX #### [facility] [address] [place] [address] Recapper: Freedom Fnog MD MCV (RBC) [Entitic vol] 92.0 fL Normal 82.6-102.9 [facility] Comment on above: Performed By: #### L IP, CDP, CMPX #### [facility] [address] [place] [address]. [place] [address] Recapper: Freedom Fong MD Monocytes (Bld) [#/Vol] 0.57 10*3/uL Normal 0.10-1.20 [facility] Comment on above: Performed By: #### L IP, CDP, CMPX #### [facility] [address] [place] [address]. [place] [address] Recapper: Freedom Fong MD Monocytes/100 WBC (Bld) 5 % Normal 3-12 [facility] Comment on above: Performed By: #### L IP, CDP, CMPX #### [facility] [address] [place] [address]. [place] [address] Recapper: Freedom Fong MD Neutrophil (Seg) 57 % Normal 36-65 [facility] Comment on above: Performed By: #### L IP, CDP, CMPX #### [facility] [address] [place] [address]. [place] [address] Recapper: Freedom Fong MD NRBC Automated 0.0 per 100 WBC Normal 0.0 [facility] Comment on above: Performed By: #### L IP, CDP, CMPX #### [facility] [address] [place] [address] Recapper: Freedom Fong MD Platelet mean volume (Bld) [Entitic vol] 9.1 fL Normal 8.1-13.5 [facility] Comment on above: Performed By: #### L IP, CDP, CMPX #### [facility] [place] [address] Recapper: Freedom Fong MD Platelets (Bld) [#/Vol] 262 10*3/uL Normal 138-453 [facility] Comment on above: Performed By: #### L IP, CDP, CMPX #### [facility] [place] [address] Recapper: Freedom Fong MD RBC (Bld) [#/Vol] 4.13 10*6/uL Normal 3.95-5.11 [facility] Comment on above: Performed By: #### L IP, CDP, CMPX #### [facility] [address] [place] [address]. [place] [address] Recapper: Freedom Fong MD WBC (Bld) [#/Vol] 11.9 10*3/uL High 3.5-11.3 [facility] Comment on above: Performed By: #### L IP, CDP, CMPX #### [facility] [address] [place] [address]. [place] [address] Recapper: Freedom Fong MD Auto Diff Performed NOT REPORTED Normal [facility] Comment on above: Performed By: #### L IP, CDP, CMPX #### [facility] [address] [place] [address]. [place] [address] Recapper: Freedom Fong MD Platelets (Bld) [#/Vol] NOT REPORTED Normal [facility] Comment on above: Performed By: #### L IP, CDP, CMPX #### [facility] [address] [place] [address] Recapper: Freedom Fong MD RBC morphology finding Nom (Bld) NOT REPORTED Normal [facility] Comment on above: Performed By: #### L IP, CDP, CMPX #### [facility] [address] [facility] [place] [address] Recapper: Freedom Fong MD WBC Morphology NOT REPORTED Normal [facility] Comment on above: Performed By: #### L IP, CDP, CMPX #### [facility] [address] [facility] [place] [address] Recapper: Freedom Fong MD CT ABDOMEN PELVIS WO [...] Giorgio Lucas MD 03/10/20 Final result Normal [facility] CT ABDOMEN PELVIS WO CONTRAS T Additional Contrast? Noneon 03-10-2020 Negative nephrolithi asis or obstructive uropathy. Mild scattered colonic diverticulosis. [facility] [place] Michael, [facility] Incoming Radiant Results From [employer] - 03/10/2020 1:55 AM EST EXAMINATION: CT [...] or obstructive uropathy. Mild scattered [facility]iculosis. [facility] OF T HE ABDOMEN AND [...] caliber. Bones/Soft Tissues: No suspicious osseous lesion. [facility] [place] Comp Metabolic Pr/rfx MGon 0 03-10-2020 (cont.) Normal [facility] Comment on above: Result Comment: Aver age GFR for 30-39 years old: 107 mL/min/1.73sq m Chronic Kidney Disease: <60 mL/min/1.73sq m Kidney failure: <15 mL/min/1.73sq m eGFR calculated using average adult body mass. Additional eGFR calculator available at: http://www.Envoimoinscher/multiple_crcl_2012.htm Performed By: #### L IP, CDP, CMPX #### [facility] [address] [place], [place] [id number] Recapper: Freedom Fong MD Albumin [Mass/Vol] 3.6 g/dL Normal 3.5-5.2 [facility] Comment on above: Performed By: #### L IP, CDP, CMPX #### [facility] [address] [place] [address] Recapper: Freedom Fong MD Alkaline Phos 140 U/L High 35-104 [facility] Comment on above: Performed By: #### L IP, CDP, CMPX #### [facility] [address] [place] [address] Recapper: Freedom Fong MD ALT [Catalytic activity/Vol] U/L Low 5-33 [facility] Comment on above: Performed By: #### L IP, CDP, CMPX #### [facility] [address] [place] [address] Recapper: Freedom Fong MD Anion gap [Moles/Vol] 11 mmol/L Normal 9-17 [facility] Comment on above: Performed By: #### L IP, CDP, CMPX #### [facility] [address] [place] [address]. [place] [address] Recapper: Freedom Fong MD AST [Catalytic activity/Vol] U/L Normal <32 [facility] Comment on above: Performed By: #### L IP, CDP, CMPX #### [facility] [address] [place] [address]. [place] [address] Recapper: Freedom Fong MD Bilirubin Ql (U) 0.11 mg/dL Low 0.3-1.2 [facility] Comment on above: Performed By: #### L IP, CDP, CMPX #### [facility] [address] [place] [address]. [place] [address] Recapper: Freedom Fong MD BUN/CRE Ratio 21 High 9-20 [facility] Comment on above: Performed By: #### L IP, CDP, CMPX #### [facility] [address] [place] [address]. [place] [address] Recapper: Freedom Fong MD Calcium [Mass/Vol] 8.6 mg/dL Normal 8.6-10.4 [facility] Comment on above: Performed By: #### L IP, CDP, CMPX #### [facility] [address] [place] [address] Recapper: Freedom Fong MD Chloride [Moles/Vol] 102 mmol/L Normal 98-107 [facility] Comment on above: Performed By: #### L IP, CDP, CMPX #### [facility] [address] [facility] [place] [address] Recapper: Freedom Fong MD CO2 [Moles/Vol] 21 mmol/L Normal 20-31 [facility] Comment on above: Performed By: #### L IP, CDP, CMPX #### [facility] [address] [place] [address]. [place] [address] Recapper: Freedom Fong MD Creatinine [Mass/Vol] 0.61 mg/dL Normal 0.50-0.90 [facility] Comment on above: Performed By: #### L IP, CDP, CMPX #### [facility] [address] [place] [address]. [place] [address] Recapper: Freedom Fong MD GFR, Amer >60 Normal >60 [facility] Comment on above: Performed By: #### L IP, CDP, CMPX #### [facility] [address] [place] [address]. [place] [address] Recapper: Freedom Fong MD GFR,non Amer >60 Normal >60 [facility] Comment on above: Performed By: #### L IP, CDP, CMPX #### [facility] [address] [place] [address]. [place] [address] Recapper: Freedom Fong MD Glucose [Mass/Vol] 102 mg/dL High 70-99 [facility] Comment on above: Performed By: #### L IP, CDP, CMPX #### [facility] [address] [place] [address] Recapper: Freedom Fong MD Potassium [Moles/Vol] 3.9 mmol/L Normal 3.7-5.3 [facility] Comment on above: Performed By: #### L IP, CDP, CMPX #### [facility] [place] [address] Recapper: Freedom Fong MD Protein [Mass/Vol] 7.2 g/dL Normal 6.4-8.3 [facility] Comment on above: Performed By: #### L IP, CDP, CMPX #### [facility] [address] [place] [address]. [place] [address] Recapper: Freedom Fong MD Sodium [Moles/Vol] 134 mmol/L Low 135-144 [facility] Comment on above: Performed By: #### L IP, CDP, CMPX #### [facility] [address] [place] [address]. [place] [address] Recapper: Freedom Fong MD Urea nitrogen [Mass/Vol] 13 mg/dL Normal 6-20 [facility] Comment on above: Performed By: #### L IP, CDP, CMPX #### [facility] [address] [place] [address]. [place] [address] Recapper: Freedom Fong MD Albumin/Globulin [Mass ratio] NOT REPORTED Normal 1.0-2.5 [facility] Comment on above: Performed By: #### L IP, CDP, CMPX #### [facility] [address] [place] [address]. [place] [address] Recapper: Freedom Fong MD Staging: NOT REPORTED Normal [facility] Comment on above: Performed By: #### L IP, CDP, CMPX #### [facility] [address] [place] [address] Recapper: Freedom Fong MD Comprehensive Metabolic Pane l w/ Reflex to [facility] 03-10-2020 Albumin [Mass/Vol] 3.6 g/dL 3.5 - 5.2 g/dL [place] Albumin/Globulin [Mass ratio] NOT REPORTED [place] ALP [Catalytic activity/Vol] 140 U/L High 35 - 104 U/L [place] ALT [Catalytic activity/Vol] U/L Low 5 - 33 U/L [place] Anion gap [Moles/Vol] 11 mmol/L 9 - 17 mmol/L [place] AST [Catalytic activity/Vol] U/L <32 U/L [place] Bilirubin Ql (U) 0.11 mg/dL Low 0.3 - 1.2 mg/dL [place] Bun/Cre Ratio 21 [place] Calcium [Mass/Vol] 8.6 mg/dL 8.6 - 10. 4 mg/dL [place] Chloride [Moles/Vol] 102 mmol/L 98 - 10 7 mmol/L [place] CO2 [Moles/Vol] 21 mmol/L 20 - 31 mmol/L [place] Creatinine [Mass/Vol] 0.61 mg/dL 0.5 - 0.9 mg/dL [place] GFR >60 >60 mL/min [place] GFR Non- >60 >60 mL/min [place] GFR/1.73 sq M predicted among non-blacks MDRD (S/P/Bld) [Vol rate/Area] [place], [place] Comment on above: Average GFR for 30-3 9 years old: 107 mL/min/1.73sq m Chronic Kidney Disease: <60 mL/min/1.73sq m Kidney failure: <15 mL/min/1.73sq m eGFR calculated using average adult body mass. Additional eGFR calculator available at: http://www.Capton.Asantae/multiple_crcl_2012.htm GFR/1.73 sq M predicted among non-blacks MDRD (S/P/Bld) [Vol rate/Area] NOT REPORTED [place], [place] Glucose [Mass/Vol] 102 mg/dL High 70 - 99 mg/dL [place] Interpretation and review of laboratory results Abnormal [place] Potassium [Moles/Vol] 3.9 mmol/L 3.7 - 5.3 mmol/L [place] Protein [Mass/Vol] 7.2 g/dL 6.4 - 8.3 g/dL [place] Sodium [Moles/Vol] 134 mmol/L Low 135 - 144 mmol/L [place] Urea nitrogen [Mass/Vol] 13 mg/dL 6 - 20 mg/dL [place] Lipaseon 03-10-2020 Lipase [Catalytic activity/Vol] 25 U/L Normal 13-60 [facility] Comment on above: Performed By: #### L IP, CDP, CMPX #### [facility] [address] [place], [place] [id number] Recapper: Freedom Fong MD Lipase [Catalytic activity/Vol] 25 U/L 13 - 60 U/L [place] Microscopic Urinalysison Amorphous, UA NOT REPORTED None [place], [place] Bacteria, UA MODERATE Abnormal None [place], [place] Casts UA NOT REPORTED /LPF [place] Crystals, UA NOT REPORTED None /HPF [place] Epithelial Cells UA 2 TO 5 [place] Interpretation and review of laboratory results Abnormal [place] Mucus, UA NOT REPORTED None [place] Other Observations UA NOT REPORTED NOT REQ. [place] RBC (U) [#/Vol] TOO NUMEROUS TO COUNT [place] Renal Epithelial, UA NOT REPORTED 0 /HPF [place] Trichomonas, UA NOT REPORTED None [facility] [place] WBC, UA 5 TO 10 [facility] [place] Yeast, UA NOT REPORTED None [facility], [place] - [facility] POCT Urine Pregnancyon 03-10 Interpretation and review of laboratory results Normal [facility], [place] Preg Test, Ur Negative [facility] h- [place] QC OK? ok [facility], [place] UA w/Reflex Cultureon 2020 Acetoacetic Acid,Ur Negative Normal NEG [facility] Comment on above: Performed By: #### U AX, UMICAO #### [facility] [address] [place] [address] Recapper: Freedom Fong MD Bilirubin, SemiQt,Ur Negative Normal NEG [facility] Comment on above: Performed By: #### U AX, UMICAO #### [facility] [address] [place] [address]. [place] [address] Recapper: Freedom Fong MD Color (U) RED Abnormal YEL [facility] Comment on above: Performed By: #### U AX, UMICAO #### [facility] [address] [place] [address] Recapper: Freedom Fong MD Glucose Ql (U) Negative Normal NEG [facility] Comment on above: Performed By: #### U AX, UMICAO #### [facility] [address] [place] [address]. [place] [address] Recapper: Freedom Fong MD Hemoglobin, Ur 3+ Abnormal NEG [facility] Comment on above: Performed By: #### U AX, UMICAO #### [facility] [address] [place] [address]. [place] [address] Recapper: Freedom Fong MD Leukocyte esterase Test strip Ql (U) TRACE Abnormal NEG [facility] Comment on above: Performed By: #### U AX, UMICAO #### [facility] [address] [place] [address] Recapper: Freedom Fong MD Nitrite,Ur Negative Normal NEG [facility] Comment on above: Performed By: #### U AX, UMICAO #### [facility] [address] [place] [address] Recapper: Freedom Fong MD pH (U) 6.0 [pH] Normal 5.0-8.0 [facility] Comment on above: Performed By: #### U AX, UMICAO #### [facility] [address] [place] [address] Recapper: Freedom Fong MD Protein Ql (U) 1+ Abnormal NEG [facility] Comment on above: Performed By: #### U AX, UMICAO #### [facility] [address] [place] [address] Recapper: Freedom Fong MD Specific gravity (U) [Rel density] 1.029 Normal 1.005-1.03 0 [facility] Comment on above: Performed By: #### U AX, UMICAO #### [facility] [place] [address] Recapper: Freedom Fong MD Turbidity CLOUDY Abnormal CLEAR [facility] Comment on above: Performed By: #### U AX UMICAO #### [facility] [address] [place] [address] Recapper: Freedom Fong MD Urobilinogen,Ur Normal Normal NORM [facility] Comment on above: Performed By: #### U AX, UMICAO #### [facility] [address] [place] [address] Recapper: Freedom Fong MD Comment NOT REPORTED Normal [facility] Comment on above: Performed By: #### U MILAGRO WHITE #### [facility] [address] [place] [address] Recapper: Freedom Fong MD Urinalysis Reflex to Culture on 03-10-2020 Bilirubin Urine Negative NEGATIVE [place], [place] Color, UA RED Abnormal YELLOW [place], [place] Glucose, Ur Negative NEGATIVE [place] Interpretation and review of laboratory results Abnormal [place] Ketones Ql (U) Negative NEGATIVE [place] Leukocyte esterase Test strip Ql (U) TRACE Abnormal NEGATIVE [place] Nitrite, Urine Negative NEGATIVE [place] pH, UA 6.0 [place], [place] Protein (U) [Mass/Vol] 1+ Abnormal NEGATIVE [place] Specific [place], UA 1.029 [place], [place] Turbidity UA CLOUDY Abnormal CLEAR [place], [place] Urinalysis Comments NOT REPORTED [place], [place] Urine Hgb 3+ Abnormal NEGATIVE [place] Urobilinogen, Urine Normal Normal [place] Urinalysis,Microon 1 ----- Normal [facility] Comment on above: Performed By: #### U MILAGRO WHITE #### [facility] [address] [place] [address] Recapper: Freedom Fong MD Bacteria LM.HPF (Urine sed) [#/Area] MODERATE Abnormal NONE [facility] Comment on above: Performed By: #### U MILAGRO WHITE #### [facility] [address] [place] [address] Recapper: Freedom Fong MD Epithelial cells LM.HPF (Urine sed) [#/Area] 2 TO 5 Normal 0-5 [facility] Comment on above: Performed By: #### U MILAGRO WHITE #### [facility] [address] [place] [address] Recapper: Freedom Fong MD RBC (U) [#/Vol] TOO NUMEROUS TO COUNT Normal 0-2 [facility] Comment on above: Performed By: #### U AX, UMICAO #### [facility] [address] [place] [address]. [place] [address] Recapper: Freedom Fong MD WBC (U) [#/Vol] 5 TO 10 Normal 0-5 [facility] Comment on above: Performed By: #### U AX, UMICAO #### [facility] [address] [place] [address]. [place] [address] Recapper: Freedom Fong MD Amorphous sediment LM Ql (Urine sed) NOT REPORTED Normal NONE [facility] Comment on above: Performed By: #### U AX, UMICAO #### [facility] [address] [place] [address]. [place] [address] Recapper: Freedom Fong MD Casts LM.LPF (Urine sed) [#/Area] NOT REPORTED Normal [facility] Comment on above: Performed By: #### U AX, UMICAO #### [facility] [address] [place] [address]. [place] [address] Recapper: Freedom Fong MD Crystals LM Nom (Urine sed) NOT REPORTED Normal NONE [facility] Comment on above: Performed By: #### U AX, UMICAO #### [facility] [address] [place] [address]. [place] [address] Recapper: Freedom Fong MD Epithelial, Renal NOT REPORTED Normal 0 [facility] Comment on above: Performed By: #### U AX, UMICAO #### [facility] [address] [place] [address] Recapper: Freedom Fong MD Mucus Strands NOT REPORTED Normal NONE [facility] Comment on above: Performed By: #### U AX, UMICAO #### [facility] [address] [place] [address] Recapper: Freedom Fong MD Other Observations NOT REPORTED Normal NREQ [facility] Comment on above: Performed By: #### U AX, UMICAO #### [facility] [facility] [place] [address] Recapper: Freedom Fong MD Trichomonas NOT REPORTED Normal [facility] Comment on above: Performed By: #### U AX, UMICAO #### [facility] [place] [address] Recapper: Freedom Fong MD Yeast LM Ql (Urine sed) NOT REPORTED Normal NONE [facility] Comment on above: Performed By: #### U AX, UMICAO #### [facility] [place] [address] Recapper: Freedom Fong MD Basic Metabolic Panelon 11-0 Anion gap [Moles/Vol] 11 mmol/L 9 - 17 mmol/L [place] Bun/Cre Ratio NOT REPORTED [place], [place] Calcium [Mass/Vol] 8.9 mg/dL 8.6 - 10. 4 mg/dL [place] Chloride [Moles/Vol] 105 mmol/L 98 - 10 7 mmol/L [place] CO2 [Moles/Vol] 24 mmol/L 20 - 31 mmol/L [place] Creatinine [Mass/Vol] 0.67 mg/dL 0.5 - 0.9 mg/dL [place] GFR >60 >60 mL/min [place] GFR Non- >60 >60 mL/min [place] GFR/1.73 sq M predicted among non-blacks MDRD (S/P/Bld) [Vol rate/Area] [place] Comment on above: Average GFR for 30-3 9 years old: 107 mL/min/1.73sq m Chronic Kidney Disease: <60 mL/min/1.73sq m Kidney failure: <15 mL/min/1.73sq m eGFR calculated using average adult body mass. Additional eGFR calculator available at: http://www.Envoimoinscher/multiple_crcl_2012.htm GFR/1.73 sq M predicted among non-blacks MDRD (S/P/Bld) [Vol rate/Area] NOT REPORTED [place], [place] Glucose [Mass/Vol] 110 mg/dL High 70 - 99 mg/dL [place] Interpretation and review of laboratory results Abnormal [place] Potassium [Moles/Vol] 3.9 mmol/L 3.7 - 5.3 mmol/L [place] Sodium [Moles/Vol] 140 mmol/L 135 - 144 mmol/L [place] Urea nitrogen [Mass/Vol] 12 mg/dL 6 - 20 mg/dL [place] CBC With Auto Differentialon 12-31-2019 Basophils (Bld) [#/Vol] 0.05 10*3/uL [place], [place] Basophils/100 WBC (Bld) 1 % 0 - 2 % [place] Differential Type NOT REPORTED [place] Eosinophils (Bld) [#/Vol] 0.27 10*3/uL [place] Eosinophils/100 WBC (Bld) 3 % 1 - 4 % [place] Erythrocyte distribution width (RBC) [Ratio] 12.6 % 11.8 - 14.4 % [place] Hematocrit (Bld) [Volume fraction] 40.9 % 36.3 - 47.1 % [place] Hemoglobin (Bld) [Mass/Vol] 12.8 g/dL 11.9 - 15.1 g/dL [place] Immature granulocytes (Bld) [#/Vol] 0.04 10*3/uL [place] Immature granulocytes (Bld) [#/Vol] 0 % 0 [place] Lymphocytes (Bld) [#/Vol] 2.84 10*3/uL [place] Lymphocytes/100 WBC (Bld) 27 % 24 - 43 % [place] MCH (RBC) [Entitic mass] 29.0 pg 25.2 - 33.5 pg [place] MCHC (RBC) [Mass/Vol] 31.3 g/dL 28.4 - 34.8 g/dL [place] MCV (RBC) [Entitic vol] 92.5 fL 82.6 - 102.9 fL [place], [place] Monocytes (Bld) [#/Vol] 0.75 10*3/uL [place] Monocytes/100 WBC (Bld) 7 % 3 - 12 % [place] Platelet mean volume (Bld) [Entitic vol] 9.1 fL 8.1 - 13.5 fL [place] Platelets (Bld) [#/Vol] 262 10*3/uL [place] Platelets (Bld) [#/Vol] NOT REPORTED [place] RBC (Bld) [#/Vol] 4.42 10*6/uL 3.95 - 5.11 m/uL [place], [place] RBC morphology finding Nom (Bld) NOT REPORTED [place], [place] Segmented neutrophils/100 WBC (Bld) 62 % 36 - 65 % [place] Segs Absolute 6.55 [place], [place] WBC (Bld) [#/Vol] 0.0 10*3/uL 0.0 per 100 WBC [place] WBC (Bld) [#/Vol] 10.5 10*3/uL [place] WBC Morphology NOT REPORTED [place], [place] Microscopic Urinalysison Amorphous, UA NOT REPORTED None [place], [place] Bacteria, UA NOT REPORTED None [place] Casts UA 10 TO 20 HYALINE Reference range defined for non-centrifuged specimen. [place] Crystals, UA NOT REPORTED None /HPF [place] Epithelial Cells UA 5 TO 10 [place] Mucus, UA NOT REPORTED None [place], [place] Other Observations UA NOT REPORTED NOT REQ. [place] RBC (U) [#/Vol] 2 TO 5 [place], [place] Comment on above: Reference range defi balaji for non-centrifuged specimen. Renal Epithelial, UA NOT REPORTED 0 /HPF [place] Trichomonas, UA NOT REPORTED None [place], [place] WBC, UA 20 TO 50 [place], [place] Yeast, UA NOT REPORTED None [place], [place] - [place] Urinalysis Reflex to Culture on 12-31-2019 Bilirubin Urine Negative NEGATIVE [place], [place] Color, UA YELLOW YELLOW [place], [place] Glucose, Ur Negative NEGATIVE [place] Interpretation and review of laboratory results Abnormal [place], [place] Ketones Ql (U) Negative NEGATIVE [place] Leukocyte esterase Test strip Ql (U) TRACE Abnormal NEGATIVE [place], [place] Nitrite, Urine Negative NEGATIVE [place] pH, UA 5.0 [place], [place] Protein (U) [Mass/Vol] Negative NEGATIVE [place] Specific [place], UA 1.034 [place], [place] Turbidity UA CLOUDY Abnormal CLEAR [place], [place] Urinalysis Comments NOT REPORTED [place], [place] Urine Hgb Negative NEGATIVE [place], [place] Urobilinogen, Urine Normal Normal [place] Basic Metabolic Panel w/ Ref cheikh to MGon 12-17-2019 Anion gap [Moles/Vol] 10 mmol/L 9 - 17 mmol/L [place], [place] Bun/Cre Ratio NOT REPORTED [place] Calcium [Mass/Vol] 8.7 mg/dL 8.6 - 10. 4 mg/dL [place] Chloride [Moles/Vol] 105 mmol/L 98 - 10 7 mmol/L [place] CO2 [Moles/Vol] 24 mmol/L 20 - 31 mmol/L [place] Creatinine [Mass/Vol] 0.54 mg/dL 0.5 - 0.9 mg/dL [place] GFR >60 >60 mL/min [place] GFR Non- >60 >60 mL/min [place] GFR/1.73 sq M predicted among non-blacks MDRD (S/P/Bld) [Vol rate/Area] NOT REPORTED [place] GFR/1.73 sq M predicted among non-blacks MDRD (S/P/Bld) [Vol rate/Area] [place], [place] Comment on above: Average GFR for 30-3 9 years old: 107 mL/min/1.73sq m Chronic Kidney Disease: <60 mL/min/1.73sq m Kidney failure: <15 mL/min/1.73sq m eGFR calculated using average adult body mass. Additional eGFR calculator available at: http://www.Envoimoinscher/multiple_crcl_2012.htm Glucose [Mass/Vol] 85 mg/dL 70 - 99 mg/dL [place] Potassium [Moles/Vol] 3.8 mmol/L 3.7 - 5.3 mmol/L [place] Sodium [Moles/Vol] 139 mmol/L 135 - 144 mmol/L [place] Urea nitrogen [Mass/Vol] 7 mg/dL 6 - 20 mg/dL [place] CBC auto differentialon -2 Basophils (Bld) [#/Vol] 0.03 10*3/uL [place] Basophils/100 WBC (Bld) 0 % 0 - 2 % [place] Differential Type NOT REPORTED [place] Eosinophils (Bld) [#/Vol] 0.20 10*3/uL [place] Eosinophils/100 WBC (Bld) 2 % 1 - 4 % [place] Erythrocyte distribution width (RBC) [Ratio] 11.9 % 11.8 - 14.4 % [place] Hematocrit (Bld) [Volume fraction] 33.1 % Low 36.3 - 47.1 % [place] Hemoglobin (Bld) [Mass/Vol] 10.5 g/dL Low 11.9 - 15.1 g/dL [place] Immature granulocytes (Bld) [#/Vol] 0.04 10*3/uL [place] Immature granulocytes (Bld) [#/Vol] 0 % 0 [place] Interpretation and review of laboratory results Abnormal [place] Lymphocytes (Bld) [#/Vol] 3.58 10*3/uL [place] Lymphocytes/100 WBC (Bld) 35 % 24 - 43 % [place] MCH (RBC) [Entitic mass] 29.6 pg 25.2 - 33.5 pg [place] MCHC (RBC) [Mass/Vol] 31.7 g/dL 28.4 - 34.8 g/dL [place] MCV (RBC) [Entitic vol] 93.2 fL 82.6 - 102.9 fL [place] Monocytes (Bld) [#/Vol] 0.64 10*3/uL [place] Monocytes/100 WBC (Bld) 6 % 3 - 12 % [place] Platelet mean volume (Bld) [Entitic vol] 9.4 fL 8.1 - 13.5 fL [place] Platelets (Bld) [#/Vol] 195 10*3/uL [place] Platelets (Bld) [#/Vol] NOT REPORTED [place] RBC (Bld) [#/Vol] 3.55 10*6/uL Low 3.95 - 5.11 m/uL [place] RBC morphology finding Nom (Bld) NOT REPORTED [place] Segmented neutrophils/100 WBC (Bld) 57 % 36 - 65 % [place] Segs Absolute 5.63 [place] WBC (Bld) [#/Vol] 0.0 10*3/uL 0.0 per 100 WBC [place] WBC (Bld) [#/Vol] 10.1 10*3/uL [place], [place] WBC Morphology NOT REPORTED [place] Basic Metabolic Panel w/ Ref cheikh to MGon 12-16-2019 Anion gap [Moles/Vol] 9 mmol/L 9 - 17 mmol/L [place] Bun/Cre Ratio NOT REPORTED [place] Calcium [Mass/Vol] 8.7 mg/dL 8.6 - 10. 4 mg/dL [place] Chloride [Moles/Vol] 105 mmol/L 98 - 10 7 mmol/L [place] CO2 [Moles/Vol] 22 mmol/L 20 - 31 mmol/L [place] Creatinine [Mass/Vol] 0.63 mg/dL 0.5 - 0.9 mg/dL [place] GFR >60 >60 mL/min [place] GFR Non- >60 >60 mL/min [place] GFR/1.73 sq M predicted among non-blacks MDRD (S/P/Bld) [Vol rate/Area] [place] Comment on above: Average GFR for 30-3 9 years old: 107 mL/min/1.73sq m Chronic Kidney Disease: <60 mL/min/1.73sq m Kidney failure: <15 mL/min/1.73sq m eGFR calculated using average adult body mass. Additional eGFR calculator available at: http://www.Capton.Asantae/multiple_crcl_2012.htm GFR/1.73 sq M predicted among non-blacks MDRD (S/P/Bld) [Vol rate/Area] NOT REPORTED [place] Glucose [Mass/Vol] 87 mg/dL 70 - 99 mg/dL [place] Potassium [Moles/Vol] 4.1 mmol/L 3.7 - 5.3 mmol/L [place] Sodium [Moles/Vol] 136 mmol/L 135 - 144 mmol/L [place] Urea nitrogen [Mass/Vol] 7 mg/dL 6 - 20 mg/dL [place] CBC auto differentialon 10-2 0-2020 Basophils (Bld) [#/Vol] 0.05 10*3/uL [place] Basophils/100 WBC (Bld) 1 % 0 - 2 % [place] Differential Type NOT REPORTED [place] Eosinophils (Bld) [#/Vol] 0.19 10*3/uL [place] Eosinophils/100 WBC (Bld) 2 % 1 - 4 % [place] Erythrocyte distribution width (RBC) [Ratio] 12.1 % 11.8 - 14.4 % [place] Hematocrit (Bld) [Volume fraction] 34.6 % Low 36.3 - 47.1 % [place] Hemoglobin (Bld) [Mass/Vol] 10.6 g/dL Low 11.9 - 15.1 g/dL [place] Immature granulocytes (Bld) [#/Vol] 0 % 0 [place] Immature granulocytes (Bld) [#/Vol] 0.04 10*3/uL [place] Interpretation and review of laboratory results Abnormal [place] Lymphocytes (Bld) [#/Vol] 3.78 10*3/uL [place] Lymphocytes/100 WBC (Bld) 39 % 24 - 43 % [place] MCH (RBC) [Entitic mass] 29.2 pg 25.2 - 33.5 pg [place] MCHC (RBC) [Mass/Vol] 30.6 g/dL 28.4 - 34.8 g/dL [place] MCV (RBC) [Entitic vol] 95.3 fL 82.6 - 102.9 fL [place] Monocytes (Bld) [#/Vol] 0.64 10*3/uL [place] Monocytes/100 WBC (Bld) 7 % 3 - 12 % [place] Platelet mean volume (Bld) [Entitic vol] 9.2 fL 8.1 - 13.5 fL [place] Platelets (Bld) [#/Vol] NOT REPORTED [place] Platelets (Bld) [#/Vol] 199 10*3/uL [place] RBC (Bld) [#/Vol] 3.63 10*6/uL Low 3.95 - 5.11 m/uL [place] RBC morphology finding Nom (Bld) NOT REPORTED [place] Segmented neutrophils/100 WBC (Bld) 51 % 36 - 65 % [place] Segs Absolute 5.05 [place] WBC (Bld) [#/Vol] 9.8 10*3/uL [place] WBC (Bld) [#/Vol] 0.0 10*3/uL 0.0 per 100 WBC [place] WBC Morphology NOT REPORTED [place] Basic Metabolic Panel w/ Ref cheikh to MGon 12-15-2019 Anion gap [Moles/Vol] 10 mmol/L 9 - 17 mmol/L [place] Bun/Cre Ratio NOT REPORTED [place], [place] Calcium [Mass/Vol] 8.2 mg/dL Low 8.6 - 10. 4 mg/dL [place] Chloride [Moles/Vol] 105 mmol/L 98 - 10 7 mmol/L [place] CO2 [Moles/Vol] 22 mmol/L 20 - 31 mmol/L [place] Creatinine [Mass/Vol] 0.63 mg/dL 0.5 - 0.9 mg/dL [place] GFR >60 >60 mL/min [place] GFR Non- >60 >60 mL/min [place] GFR/1.73 sq M predicted among non-blacks MDRD (S/P/Bld) [Vol rate/Area] [place], [place] Comment on above: Average GFR for 30-3 9 years old: 107 mL/min/1.73sq m Chronic Kidney Disease: <60 mL/min/1.73sq m Kidney failure: <15 mL/min/1.73sq m eGFR calculated using average adult body mass. Additional eGFR calculator available at: http://www.Capton.com/multiple_crcl_2012.htm GFR/1.73 sq M predicted among non-blacks MDRD (S/P/Bld) [Vol rate/Area] NOT REPORTED [place] Glucose [Mass/Vol] 102 mg/dL High 70 - 99 mg/dL [place] Interpretation and review of laboratory results Abnormal [place] Potassium [Moles/Vol] 3.6 mmol/L Low 3.7 - 5.3 mmol/L [place] Sodium [Moles/Vol] 137 mmol/L 135 - 144 mmol/L [place] Urea nitrogen [Mass/Vol] 10 mg/dL 6 - 20 mg/dL [place] CBC auto differentialon 11-26 Basophils (Bld) [#/Vol] 0.05 10*3/uL [place] Basophils/100 WBC (Bld) 1 % 0 - 2 % [place] Differential Type NOT REPORTED [place] Eosinophils (Bld) [#/Vol] 0.24 10*3/uL [place] Eosinophils/100 WBC (Bld) 2 % 1 - 4 % [place] Erythrocyte distribution width (RBC) [Ratio] 12.7 % 11.8 - 14.4 % [place] Hematocrit (Bld) [Volume fraction] 33.6 % Low 36.3 - 47.1 % [place] Hemoglobin (Bld) [Mass/Vol] 10.2 g/dL Low 11.9 - 15.1 g/dL [place] Immature granulocytes (Bld) [#/Vol] 0 % 0 [place] Immature granulocytes (Bld) [#/Vol] 0.03 10*3/uL [place] Interpretation and review of laboratory results Abnormal [place] Lymphocytes (Bld) [#/Vol] 3.59 10*3/uL [place] Lymphocytes/100 WBC (Bld) 34 % 24 - 43 % [place] MCH (RBC) [Entitic mass] 29.4 pg 25.2 - 33.5 pg [place] MCHC (RBC) [Mass/Vol] 30.4 g/dL 28.4 - 34.8 g/dL [place] MCV (RBC) [Entitic vol] 96.8 fL 82.6 - 102.9 fL [place] Monocytes (Bld) [#/Vol] 0.54 10*3/uL [place], [place] Monocytes/100 WBC (Bld) 5 % 3 - 12 % [place] Platelet mean volume (Bld) [Entitic vol] 9.1 fL 8.1 - 13.5 fL [place] Platelets (Bld) [#/Vol] 213 10*3/uL [place] Platelets (Bld) [#/Vol] NOT REPORTED [place] RBC (Bld) [#/Vol] 3.47 10*6/uL Low 3.95 - 5.11 m/uL [place], [place] RBC morphology finding Nom (Bld) NOT REPORTED [place] Segmented neutrophils/100 WBC (Bld) 58 % 36 - 65 % [place] Segs Absolute 6.11 [place] WBC (Bld) [#/Vol] 0.0 10*3/uL 0.0 per 100 WBC [place] WBC (Bld) [#/Vol] 10.6 10*3/uL [place] WBC Morphology NOT REPORTED [place] Calcium, Random Urineon 11-26 Calcium, Ur 22.2 mg/dL [place], [place] Comment on above: No normal range esta blished. EKG 12 leadon 12-15-2019 Atrial Rate 76 BPM [place], [place] P [place] 39 degrees [place], [place] P-R Interval 150 ms [place] Q-T Interval 400 ms [place] QRS Duration 92 ms [place] QTc Calculation (Bazett) 450 ms [place] R [place] 66 degrees [place], [place] T [place] 51 degrees [place] Ventricular Rate 76 BPM [place] Normal sinus rhythm Normal ECG When compared with ECG of 20-NOV-2014 00:15, No significant change was found [place], [place] Michael, Mhpn Incoming E kg Results From [facility] [employer] [employer] - 12/15/2019 1:33 PM EDT Normal sinus rhythm Normal ECG When compared with ECG of 20-NOV-2014 00:15, No significant change was found [place] Otheron 12-15-2019 Negative pelvic ultrasound. Normal Doppler flow within the ovaries. [place] Michael, Mhpn Incoming Radiant Results From [facility] - 12/15/2019 12:35 PM EDT EXAMINATION: PELVIC [...] ultrasound. Normal Doppler flow within the ovaries. [place] EXAMINATION: PELVIC ULTRASOUND; DOPPLER EVALUATION 12/15/2019 TECHNIQUE: [...] free fluid cul-de-sac likely physiologic in nature. [place] US RENAL COMPLETEon 12-15-19 EXAMINATION: RETROPERITONEAL [...] stones. Bladder: Unremarkable appearance of the bladder. [place] Michael, Mhpn Incoming Radiant Results From [facility] - 12/15/2019 12:33 PM EDT EXAMINATION: RETROPERITONEAL [...] ultrasound of the kidneys and urinary bladder. [place] Unremarkable ultraso und of the kidneys and urinary bladder. [place] Basic Metabolic Panel w/ Ref cheikh to MGon 12-14-2019 Anion gap [Moles/Vol] 8 mmol/L Low 9 - 17 mmol/L [place] Bun/Cre Ratio NOT REPORTED [place], [place] Calcium [Mass/Vol] 8.4 mg/dL Low 8.6 - 10. 4 mg/dL [place] Chloride [Moles/Vol] 106 mmol/L 98 - 10 7 mmol/L [place] CO2 [Moles/Vol] 24 mmol/L 20 - 31 mmol/L [place] Creatinine [Mass/Vol] 0.74 mg/dL 0.5 - 0.9 mg/dL [place] GFR >60 >60 mL/min [place] GFR Non- >60 >60 mL/min [place] GFR/1.73 sq M predicted among non-blacks MDRD (S/P/Bld) [Vol rate/Area] NOT REPORTED [place] GFR/1.73 sq M predicted among non-blacks MDRD (S/P/Bld) [Vol rate/Area] [place] Comment on above: Average GFR for 30-3 9 years old: 107 mL/min/1.73sq m Chronic Kidney Disease: <60 mL/min/1.73sq m Kidney failure: <15 mL/min/1.73sq m eGFR calculated using average adult body mass. Additional eGFR calculator available at: http://www.Envoimoinscher/multiple_crcl_2011.htm Glucose [Mass/Vol] 96 mg/dL 70 - 99 mg/dL [place] Interpretation and review of laboratory results Abnormal [place] Potassium [Moles/Vol] 3.8 mmol/L 3.7 - 5.3 mmol/L [place] Sodium [Moles/Vol] 138 mmol/L 135 - 144 mmol/L [place] Urea nitrogen [Mass/Vol] 15 mg/dL 6 - 20 mg/dL [place] CBC auto differentialon 11-26 Basophils (Bld) [#/Vol] 0.23 10*3/uL High [place] Basophils/100 WBC (Bld) 2 % 0 - 2 % [place] Differential Type NOT REPORTED [place] Eosinophils (Bld) [#/Vol] 0.57 10*3/uL [place] Eosinophils/100 WBC (Bld) 5 % High 1 - 4 % [place] Erythrocyte distribution width (RBC) [Ratio] 12.6 % 11.8 - 14.4 % [place] Hematocrit (Bld) [Volume fraction] 37.2 % 36.3 - 47.1 % [place] Hemoglobin (Bld) [Mass/Vol] 11.5 g/dL Low 11.9 - 15.1 g/dL [place] Immature granulocytes (Bld) [#/Vol] 0.00 10*3/uL [place] Immature granulocytes (Bld) [#/Vol] 0 % 0 [place] Interpretation and review of laboratory results Abnormal [place] Lymphocytes (Bld) [#/Vol] 4.10 10*3/uL [place] Lymphocytes/100 WBC (Bld) 36 % 24 - 44 % [place] MCH (RBC) [Entitic mass] 29.3 pg 25.2 - 33.5 pg [place] MCHC (RBC) [Mass/Vol] 30.9 g/dL 28.4 - 34.8 g/dL [place] MCV (RBC) [Entitic vol] 94.7 fL 82.6 - 102.9 fL [place] Monocytes (Bld) [#/Vol] 0.80 10*3/uL [place] Monocytes/100 WBC (Bld) 7 % 1 - 7 % [place] Morphology Rudy (Bld) [Interp] Normal [place] Platelet mean volume (Bld) [Entitic vol] 9.2 fL 8.1 - 13.5 fL [place] Platelets (Bld) [#/Vol] 238 10*3/uL [place] Platelets (Bld) [#/Vol] NOT REPORTED [place] RBC (Bld) [#/Vol] 3.93 10*6/uL Low 3.95 - 5.11 m/uL [place] RBC morphology finding Nom (Bld) NOT REPORTED [place] Segmented neutrophils/100 WBC (Bld) 50 % 36 - 66 % [place] Segs Absolute 5.70 [place], [place] WBC (Bld) [#/Vol] 11.4 10*3/uL [place] WBC (Bld) [#/Vol] 0.0 10*3/uL 0.0 per 100 WBC [place] WBC Morphology NOT REPORTED [place] CT ABDOMEN PELVIS WO MICHELE Ton 12-14-2019 Michael, Mhpn Incoming Radiant Results From [facility] - 12/14/2019 12:08 AM EDT EXAMINATION: CT [...] the cul-de-sac, likely physiologic 4. Normal appendix [place], [place] EXAMINATION: CT OF LOCATED WITHIN [facility] ABDOMEN AND PELVIS WITHOUT CONTRAST 12/13/2019 10:32 [...] Tissues: No acute osseous abnormality is present. [place] 1. Faint medullary calcinosis noted bilaterally, without discrete calculi or hydronephrosis 2. Prior cholecystectomy 3. Trace amount of free fluid seen within the cul-de-sac, likely physiologic 4. Normal appendix [place] Culture, Urineon 12-14-2019 Culture NO SIGNIFICANT GROWTH [place] Special Requests NOT REPORTED [place] Specimen Description .Random Urine [place] POC Glucose Fingerstickon Glucose [Mass/Vol] 110 mg/dL High 65 - 105 mg/dL [place] Interpretation and review of laboratory results Abnormal [place] PTH, Intacton 12-14-2019 Pth Intact 43.28 pg/mL 15 - 65 pg/mL [place] Comment on above: SAMPLES FROM PATIENT S ROUTINELY RECEIVING HIGH DOSE BIOTIN THERAPY MAY SHOW FALSELY DEPRESSED RESULTS. ADDITIONAL INFORMATION MAY BE REQUIRED FOR DIAGNOSIS. Procalcitoninon 12-14-2019 Procalcitonin 0.03 ng/mL <0.09 [place] Comment on above: Suspected Sepsis: <0.50 [...] entered into the Change in Procalcitonin Calculator (www.snqxhr-yix-rvdfhefkyr.Asantae) to determine the patient's Mortality Risk Prognosis In healthy neonates, plasma Procalcitonin (PCT) concentrations increase gradually after , reaching peak values at about 24 hours of age then decrease to normal values below 0.5 ng/mL by 48-72 hours of age. Vitamin D 25 Hydroxyon 12-13 Interpretation and review of laboratory results Abnormal [place] Vit D, 25-Hydroxy 10.7 ng/mL Low 30 - 100 ng/mL [place] Comment on above: Reference Range: Vitamin D status Range Deficiency <20 ng/mL Mild Deficiency 20-30 ng/mL Sufficiency 30-100 ng/mL Toxicity >100 ng/mL BASIC METABOLIC PANEL 11-26 Anion gap [Moles/Vol] 8 mmol/L Low 9 - 17 mmol/L [place] Bun/Cre Ratio NOT REPORTED [place], [place] Calcium [Mass/Vol] 8.7 mg/dL 8.6 - 10. 4 mg/dL [place] Chloride [Moles/Vol] 104 mmol/L 98 - 10 7 mmol/L [place] CO2 [Moles/Vol] 25 mmol/L 20 - 31 mmol/L [place] Creatinine [Mass/Vol] 0.62 mg/dL 0.5 - 0.9 mg/dL [place] GFR >60 >60 mL/min [place] GFR Non- >60 >60 mL/min [place] GFR/1.73 sq M predicted among non-blacks MDRD (S/P/Bld) [Vol rate/Area] NOT REPORTED [place] GFR/1.73 sq M predicted among non-blacks MDRD (S/P/Bld) [Vol rate/Area] [place], [place] Comment on above: Average GFR for 30-3 9 years old: 107 mL/min/1.73sq m Chronic Kidney Disease: <60 mL/min/1.73sq m Kidney failure: <15 mL/min/1.73sq m eGFR calculated using average adult body mass. Additional eGFR calculator available at: http://www.Envoimoinscher/multiple_crcl_2012.htm Glucose [Mass/Vol] 95 mg/dL 70 - 99 mg/dL [place] Interpretation and review of laboratory results Abnormal [place] Potassium [Moles/Vol] 4.0 mmol/L 3.7 - 5.3 mmol/L [place] Sodium [Moles/Vol] 137 mmol/L 135 - 144 mmol/L [place] Urea nitrogen [Mass/Vol] 13 mg/dL 6 - 20 mg/dL [place] CBC WITH AUTO DIFFERENTIALon 12-13-2019 Basophils (Bld) [#/Vol] 0.04 10*3/uL [place] Basophils/100 WBC (Bld) 0 % 0 - 2 % [place] Differential Type NOT REPORTED [place] Eosinophils (Bld) [#/Vol] 0.24 10*3/uL [place] Eosinophils/100 WBC (Bld) 2 % 1 - 4 % [place] Erythrocyte distribution width (RBC) [Ratio] 12.6 % 11.8 - 14.4 % [place] Hematocrit (Bld) [Volume fraction] 37.7 % 36.3 - 47.1 % [place] Hemoglobin (Bld) [Mass/Vol] 12.1 g/dL 11.9 - 15.1 g/dL [place] Immature granulocytes (Bld) [#/Vol] 0.05 10*3/uL [place] Immature granulocytes (Bld) [#/Vol] 0 % 0 [place] Interpretation and review of laboratory results Abnormal [place] Lymphocytes (Bld) [#/Vol] 4.14 10*3/uL High [place] Lymphocytes/100 WBC (Bld) 36 % 24 - 43 % [place] MCH (RBC) [Entitic mass] 29.7 pg 25.2 - 33.5 pg [place] MCHC (RBC) [Mass/Vol] 32.1 g/dL 28.4 - 34.8 g/dL [place] MCV (RBC) [Entitic vol] 92.6 fL 82.6 - 102.9 fL [place] Monocytes (Bld) [#/Vol] 0.70 10*3/uL [place] Monocytes/100 WBC (Bld) 6 % 3 - 12 % [place] Platelet mean volume (Bld) [Entitic vol] 9.1 fL 8.1 - 13.5 fL [place] Platelets (Bld) [#/Vol] NOT REPORTED [place] Platelets (Bld) [#/Vol] 261 10*3/uL [place] RBC (Bld) [#/Vol] 4.07 10*6/uL 3.95 - 5.11 m/uL [place] RBC morphology finding Nom (Bld) NOT REPORTED [place] Segmented neutrophils/100 WBC (Bld) 56 % 36 - 65 % [place] Segs Absolute 6.48 [place] WBC (Bld) [#/Vol] 11.7 10*3/uL [place] WBC (Bld) [#/Vol] 0.0 10*3/uL 0.0 per 100 WBC [place] WBC Morphology NOT REPORTED [place] HCG Qualitative, Serumon hCG Qual Negative NEGATIVE [place] Comment on above: Specimens with hCG l evels near the threshold of the test (25 mIU/mL) may give a negative or indeterminate result. In such cases, another test should be performed with a new specimen in 48-72 hours. If early is suspected clinically in this setting, correlation with quantitative serum b-hCG level is suggested. [facility] has confirmed the use of plasma for this test. This has not been cleared or approved by the U.S. Food and Drug Administration. The FDA has determined that such clearance is not necessary. Microscopic Urinalysison Amorphous, UA NOT REPORTED None [facility], [place] Bacteria, UA NOT REPORTED None [place] Casts UA NOT REPORTED [place] Crystals, UA FEW Abnormal None /HPF [place] Crystals, UA CALCIUM OXALATE Abnormal None /HPF [place] Epithelial Cells UA None [place] Interpretation and review of laboratory results Abnormal [place] Mucus, UA 1+ Abnormal None [place] Other Observations UA NOT REPORTED NOT REQ. [place] RBC (U) [#/Vol] 0 TO 2 [place], [place] Renal Epithelial, UA NOT REPORTED 0 /HPF [place] Trichomonas, UA NOT REPORTED None [place], [place] WBC, UA 10 TO 20 [place] Yeast, UA NOT REPORTED None [place], [place] - [place] , URINEon 0 Beta HCG ( test) Ql (U) Negative NEGATIVE [place] Comment on above: Specimens with hCG [...] Culture on 12-13-2019 Bilirubin Urine Negative NEGATIVE [place] Color, UA YELLOW YELLOW [place] Glucose, Ur Negative NEGATIVE [place] Interpretation and review of laboratory results Abnormal [place] Ketones Ql (U) Negative NEGATIVE [place] Leukocyte esterase Test strip Ql (U) TRACE Abnormal NEGATIVE [place] Nitrite, Urine Negative NEGATIVE [place] pH, UA 5.5 [place] Protein (U) [Mass/Vol] TRACE Abnormal NEGATIVE [place] Specific [place], UA 1.040 High [facility] [place] Turbidity UA CLOUDY Abnormal CLEAR [facility] Comments NOT RE[facility]ED [facility] Urine Hgb SMALL Abnormal NEGATIVE [facility] SAUL Urobilinogen, Urine Normal Normal [facility] Otheron 10-29-2019 No acute osseous abnormality of the right humerus. No acute osseous abnormality of the right forearm. [facility] SAUL EXAMINATION: TWO XRA Y VIEWS OF THE [...] as visualized. No focal soft tissue abnormality. [facility] Michael, Mhpn Incoming Radiant Results From [facility] - 10/29/2019 7:01 PM EDT EXAMINATION: TWO [...] acute osseous abnormality of the right forearm. [facility] X[facility] WRIST RIGHT (MIN 3 VIEWS) on 10-29-2019 No acute osseus abnormality of the wrist. [facility] EXAMINATION: 3 XRAY VIEWS OF THE RIGHT [...] unremarkable. No radiopaque foreign bodies are identified. [facility] Michael, Mhpn Incoming Radiant Results From [facility] - 10/29/2019 7:02 PM EDT EXAMINATION: 3 [...] No acute osseus abnormality of the wrist. [facility] HNO ID: [id number] Author: Uzair Bryan (Rt) Service: Radiology Author Type: Heel Molder Type: Allied Health Filed: 07/17/2019 12:23 AM [...] PERIPHERAL IV DATA: Inpatient - refer to [facility] documentation RADIOLOGY DEPARTMENT: CT; Exam(s) Completed: Brain and Spine SIGNATURE: RT Randi PATIENT NAME: Tracie Samuels DATE: July 17, 2019 TIME: 12:[address] [facility] Basic Metabolic Panlon 07-16 Anion gap [Moles/Vol] 14 mmol/L Normal 9-18 [facility] Calcium [Mass/Vol] 8.8 mg/dL Normal 8.5-10.2 [facility] Chloride [Moles/Vol] 102 mmol/L Normal 97-105 [facility] CO2 [Moles/Vol] 23 mmol/L Normal 22-30 [facility] Creatinine [Mass/Vol] 0.69 mg/dL Normal 0.58-0.96 [facility] eGFR- Amer. >60 Normal [facility] GFR/1.73 sq M predicted among non-blacks MDRD (S/P/Bld) [Vol rate/Area] mL/min/{1.73_m2} Normal [facility] Comment on above: Result Comment: eGFR [...] GFR. Glucose [Mass/Vol] 107 mg/dL High 74-99 [facility] Comment on above: Result Comment: The [place] Diabetes Association (ADA) provides guidance for cutoff [...] Standards of Medical Care in Diabetes 2016, [place] [employer] Association. Diabetes Care. 2016.39(Suppl 1). Potassium [Moles/Vol] 3.9 mmol/L Normal 3.7-5.1 [facility] Sodium [Moles/Vol] 139 mmol/L Normal 136-144 [facility]ital Urea nitrogen [Mass/Vol] 10 mg/dL Normal 7-21 [facility] CBCon 07-17-2019 Absolute nRBC <0.01 Normal <0.01 [facility]th[facility] distribution width (RBC) [Ratio] 12.1 % Normal 11.5-15.0 [facility] Hematocrit (Bld) [Volume fraction] 41.4 % Normal 36.0-46.0 [facility] Hemoglobin (Bld) [Mass/Vol] 13.4 g/dL Normal 11.5-15.5 [facility] MCH (RBC) [Entitic mass] 29.5 pG Normal 26.0-34.0 [facility] MCHC (RBC) [Mass/Vol] 32.4 g/dL Normal 30.5-36.0 [facility] MCV (RBC) [Entitic vol] 91.2 fL Normal 80.0-100.0 [facility] Platelet mean volume (Bld) [Entitic vol] 9.1 fL Normal 9.0-12.7 [facility] l Platelets (Bld) [#/Vol] 284 10*3/uL Normal 150-400 [facility] RBC (Bld) [#/Vol] 4.54 10*6/uL Normal 3.90-5.20 [facility] WBC (Bld) [#/Vol] 13.21 10*3/uL High 3.70-11.00 [facility] CKon 07-17-2019 CK [Catalytic activity/Vol] 92 U/L Normal 42-196 [facility] CT BRAIN WO IVCONon 07-17-[address] BRAIN WO IVCON * * *Final Report* * * DATE OF EXAM: Jul 17 2019 12:21AM [facility] 0504 - CT BRAIN WO IVCON [...] tissues are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 Body mass index (BMI) [Ratio] 43.42 kg/m2 Anthony Visci DO Work Phone: [facility] 01-10-2024 12:17-0500 Body weight 97.52 kg Anthony Visci DO Work Phone: [facility] 01-10-2024 12:17-0500 Diastolic blood pressure 80 mm[Hg] Anthony Visci DO Work Phone: [facility] 01-10-2024 12:17-0500 Systolic blood pressure 138 mm[Hg] Anthony Visci DO Work Phone: [facility] 01-02-2024 08:31-0500 Body mass index (BMI) [Ratio] 43.42 kg/m2 Anthony Visci DO Work Phone: [facility] 01-02-2024 08:31-0500 Body weight 97.52 kg Anthony Visci DO Work Phone: [facility] 01-02-2024 08:31-0500 Diastolic blood pressure 80 mm[Hg] Anthony Visci DO Work Phone: [facility] 01-02-2024 08:31-0500 Systolic blood pressure 128 mm[Hg] Anthony Visci DO Work Phone: [facility] 10-27-2023 12:00-0400 Body temperature 97.9 [degF] [facility] 10-27-2023 12:00-0400 Diastolic blood pressure 89 mm[Hg] [facility]ae MD [facility] 10-27-2023 12:00-0400 Heart rate 77 /min Jaelyn Renae MD [facility] 10-27-2023 12:00-0400 Respiratory rate 18 /min Jaelyn Renae MD [facility] 10-27-2023 12:00-0400 SaO2% (BldA) [Mass fraction] 96 % Jaelyn Renae MD Work Phone: [facility] [employer] 10-27-2023 12:00-0400 Systolic blood pressure 156 mm[Hg] Jaelyn Renae MD Work Phone: [facility] 10-04-2023 02:51-0400 Diastolic blood pressure 91 mm[Hg] DO Katlin Fernandez Work Phone: [facility] 10-04-2023 02:51-0400 Heart rate 82 /min DO Katlin Fernandez Work Phone: [facility] 10-04-2023 02:51-0400 Respiratory rate 16 /min DO Katlin Fernandez Work Phone: [facility] 10-04-2023 02:51-0400 SaO2% (BldA) [Mass fraction] 98 % DO Katlin Fernandez Work Phone: [facility] 10-04-2023 02:51-0400 Systolic blood pressure 141 mm[Hg] DO Katlin Fernandez Work Phone: [facility] 10-03-2023 22:46-0400 Body height 149.86 cm DO Katlin Fernandez Work Phone: [facility] 10-03-2023 22:46-0400 Body temperature 98.7 [degF] DO Katlin Fernandez Work Phone: [facility] 10-03-2023 22:46-0400 Body weight 96.4 kg DO Katlin Fernandez Work Phone: [facility] 09-20-2023 03:00-0400 Diastolic blood pressure 75 mm[Hg] DO Katlin Fernandez Work Phone: [facility] 09-20-2023 03:00-0400 Heart rate 77 /min DO Katlin Fernandez Work Phone: [facility] 09-20-2023 03:00-0400 Respiratory rate 14 /min DO Katlin Fernandez Work Phone: [facility] 09-20-2023 03:00-0400 SaO2% (BldA) [Mass fraction] 97 % DO Katlin Fernandez Work Phone: [facility] 09-20-2023 03:00-0400 Systolic blood pressure 117 mm[Hg] DO Katlin Fernandez Work Phone: [facility] 09-20-2023 00:21-0400 Body height 149.86 cm DO Katlin Fernandez Work Phone: [facility] 09-20-2023 00:21-0400 Body temperature 98 [degF] DO Katlin Fernandez Work Phone: [facility] 09-20-2023 00:21-0400 Body weight 96.1 kg DO Katlin Fernandez Work Phone: [facility] 09-03-2023 22:00-0400 Diastolic blood pressure 90 mm[Hg] Kaylinn Dokken [facility] 09-03-2023 22:00-0400 Heart rate 76 /min Kaylinn Dokken [facility] 09-03-2023 22:00-0400 Mean blood pressure 109 mm[Hg] Kaylinn Dokken [facility] 09-03-2023 22:00-0400 Respiratory rate 18 /min Kaylinn Dokken [facility] 09-03-2023 22:00-0400 SaO2% (BldA) [Mass fraction] 99 % Kaylinn Dokken [facility] 09-03-2023 22:00-0400 Systolic blood pressure 146 mm[Hg] Kaylinn Dokken [facility] 09-03-2023 21:30-0400 Diastolic blood pressure 121 mm[Hg] Kaylinn Dokken [facility] 09-03-2023 21:30-0400 Heart rate 77 /min Kaylinn Dokken [facility] 09-03-2023 21:30-0400 Mean blood pressure 127 mm[Hg] Kaylinn Dokken [facility] 09-03-2023 21:30-0400 Respiratory rate 20 /min Kaylinn Dokken [facility] 09-03-2023 21:30-0400 SaO2% (BldA) [Mass fraction] 100 % Kaylinn Dokken [facility] 09-03-2023 21:30-0400 Systolic blood pressure 138 mm[Hg] Kaylinn Dokken [facility] 09-03-2023 21:00-0400 Heart rate 82 /min Kaylinn Dokken [facility] 09-03-2023 20:43-0400 Body temperature 97.88 [degF] Kaylinn Dokken [facility] 09-03-2023 20:43-0400 Diastolic blood pressure 89 mm[Hg] Kaylinn Dokken [facility] 09-03-2023 20:43-0400 Heart rate 89 /min Kaylinn Dokken [facility] 09-03-2023 20:43-0400 Systolic blood pressure 134 mm[Hg] Kaylinn Dokken [facility] 08-27-2023 23:12-0400 Diastolic blood pressure 104 mm[Hg] Kaylinn Dokken [facility] 08-27-2023 23:12-0400 Heart rate 76 /min Kaylinn Dokken [facility] 08-27-2023 23:12-0400 Respiratory rate 18 /min Kaylinn Dokken [facility] 08-27-2023 23:12-0400 SaO2% (BldA) [Mass fraction] 97 % Kaylinn Dokken [facility] 08-27-2023 23:12-0400 Systolic blood pressure 131 mm[Hg] Kaylinn Dokken [facility] 08-27-2023 22:24-0400 Diastolic blood pressure 127 mm[Hg] Kaylinn Dokken [facility] 08-27-2023 22:24-0400 Heart rate 69 /min Kaylinn Dokken [facility] 08-27-2023 22:24-0400 Mean blood pressure 131 mm[Hg] Kaylinn Dokken [facility] 08-27-2023 22:24-0400 Respiratory rate 17 /min Kaylinn Dokken [facility] 08-27-2023 22:24-0400 SaO2% (BldA) [Mass fraction] 99 % Kaylinn Dokken [facility] 08-27-2023 22:24-0400 Systolic blood pressure 139 mm[Hg] Kaylinn Dokken [facility] 08-27-2023 20:30-0400 Diastolic blood pressure 79 mm[Hg] Kaylinn Dokken [facility] 08-27-2023 20:30-0400 Heart rate 73 /min Kaylinn Dokken [facility] 08-27-2023 20:30-0400 Mean blood pressure 93 mm[Hg] Madhaviinn Dokken [facility] 08-27-2023 20:30-0400 Respiratory rate 18 /min Jackelynylinn Dokken [facility] 08-27-2023 20:30-0400 SaO2% (BldA) [Mass fraction] 98 % Jackelynylinn Dokken [facility] 08-27-2023 20:30-0400 Systolic blood pressure 120 mm[Hg] Madhaviinn Dokken [facility] 08-27-2023 19:05-0400 Body temperature 97.7 [degF] Madhaviinn Dokken [facility] 08-27-2023 19:05-0400 Heart rate 95 /min Madhaviinn Dokken [facility] 08-26-2023 09:17-0400 Body temperature 98.6 [degF] Jass Fantasma [facility] 08-26-2023 09:17-0400 Diastolic blood pressure 117 mm[Hg] Jass Fantasma [facility] 08-26-2023 09:17-0400 Heart rate 95 /min Jass Fantasma [facility] 08-26-2023 09:17-0400 Respiratory rate 18 /min Jass Fantasma [facility] 08-26-2023 09:17-0400 SaO2% (BldA) [Mass fraction] 99 % Jass Fantasma [facility] 08-26-2023 09:17-0400 Systolic blood pressure 156 mm[Hg] Jass Fantasma [facility] 07-21-2023 08:04-0400 Body height 153.67 cm DO Katlin Fernandez Work Phone: [facility] 07-21-2023 08:04-0400 Body weight 92 kg DO Katlin Fernandez Work Phone: [facility] 07-21-2023 08:02-0400 Body temperature 98 [degF] DO Katlin Fernandez Work Phone: [facility] 07-21-2023 08:02-0400 Diastolic blood pressure 85 mm[Hg] DO Katlin Fernandez Work Phone: [facility] 07-21-2023 08:02-0400 Heart rate 72 /min DO Katlin Fernandez Work Phone: [facility] 07-21-2023 08:02-0400 Respiratory rate 18 /min DO Katlin Fernandez Work Phone: [facility] 07-21-2023 08:02-0400 SaO2% (BldA) [Mass fraction] 99 % DO Katlin Fernandez Work Phone: [facility] 07-21-2023 08:02-0400 Systolic blood pressure 125 mm[Hg] DO Katlin Fernandez Work Phone: [facility] 07-14-2023 18:13-0400 Diastolic blood pressure 72 mm[Hg] DO Katlin Fernandez Work Phone: [facility] 07-14-2023 18:13-0400 Heart rate 82 /min DO Katlin Fernandez Work Phone: [facility] 07-14-2023 18:13-0400 Respiratory rate 20 /min DO Katlin Fernandez Work Phone: [facility] 07-14-2023 18:13-0400 SaO2% (BldA) [Mass fraction] 98 % DO Katlin Fernandez Work Phone: [facility] 07-14-2023 18:13-0400 Systolic blood pressure 118 mm[Hg] DO Katlin Fernandez Work Phone: [facility] 07-14-2023 15:40-0400 Body height 149.86 cm DO Katlin Fernandez Work Phone: [facility] 07-14-2023 15:40-0400 Body temperature 98 [degF] DO Katlin Fernandez Work Phone: [facility] 07-14-2023 15:40-0400 Body weight 92.25 kg DO Katlin Fernandez Work Phone: [facility] 07-06-2023 02:57-0400 Diastolic blood pressure 74 mm[Hg] DO Katlin Fernandez Work Phone: [facility] 07-06-2023 02:57-0400 Heart rate 88 /min DO Katlin Fernanedz Work Phone: [facility] 07-06-2023 02:57-0400 Respiratory rate 16 /min DO Katlin Fernandez Work Phone: [facility] 07-06-2023 02:57-0400 SaO2% (BldA) [Mass fraction] 98 % DO Katlin Fernandez Work Phone: [facility] 07-06-2023 02:57-0400 Systolic blood pressure 131 mm[Hg] DO Katlin Fernandez Work Phone: [facility] 07-06-2023 00:47-0400 Body height 149.86 cm DO Katlin Fernandez Work Phone: [facility] 07-06-2023 00:47-0400 Body temperature 98.6 [degF] DO Katlin Fernandez Work Phone: [facility] 07-06-2023 00:47-0400 Body weight 93.5 kg DO Katlin Fernandez Work Phone: [facility] 06-13-2023 13:03-0400 Diastolic blood pressure 82 mm[Hg] DO Katlin Fernandez Work Phone: [facility] 06-13-2023 13:03-0400 Heart rate 64 /min DO Katlin Fernandez Work Phone: [facility] 06-13-2023 13:03-0400 Respiratory rate 12 /min DO Katlin Fernandez Work Phone: [facility] 06-13-2023 13:03-0400 SaO2% (BldA) [Mass fraction] 99 % DO Katlin Fernandez Work Phone: [facility] 06-13-2023 13:03-0400 Systolic blood pressure 135 mm[Hg] DO Katlin Fernandez Work Phone: [facility] 06-13-2023 10:55-0400 Body height 149.86 cm DO Katlin Fernandez Work Phone: [facility] 06-13-2023 10:55-0400 Body temperature 98 [degF] DO Katlin Fernandez Work Phone: [facility] 06-13-2023 10:55-0400 Body weight 99 kg DO Katlin Fernandez Work Phone: [facility] 05-22-2023 16:30-0400 Diastolic blood pressure 71 mm[Hg] DO Katlin Fernandez Work Phone: [facility] 05-22-2023 16:30-0400 Heart rate 83 /min DO Katlin Fernandez Work Phone: [facility] 05-22-2023 16:30-0400 Respiratory rate 16 /min DO Katlin Fernandez Work Phone: [facility] 05-22-2023 16:30-0400 SaO2% (BldA) [Mass fraction] 94 % DO Katlin Fernandez Work Phone: [facility] 05-22-2023 16:30-0400 Systolic blood pressure 121 mm[Hg] DO Katlin Fernandez Work Phone: [facility] 05-22-2023 15:39-0400 Body temperature 98.4 [degF] DO Katlin Fernandez Work Phone: [facility] 05-22-2023 15:04-0400 Inhaled oxygen flow rate 8 L/min DO Katlin Fernandez Work Phone: [facility] 05-22-2023 13:30-0400 Body height 149.86 cm DO Katlin Fernandez Work Phone: [facility] 05-22-2023 13:30-0400 Body mass index (BMI) [Ratio] 40.4 kg/m2 DO Katlin Fernandez Work Phone: [facility] 05-22-2023 13:30-0400 Body weight 90.71 kg DO Katlin Fernandez Work Phone: [facility] 05-16-2023 13:00-0400 Body temperature 98.2 [degF] DO Katlin Fernandez Work Phone: [facility] 05-16-2023 13:00-0400 Diastolic blood pressure 58 mm[Hg] DO Katlin Fernandez Work Phone: [facility] 05-16-2023 13:00-0400 Heart rate 91 /min DO Katlin Fernandez Work Phone: [facility] 05-16-2023 13:00-0400 Respiratory rate 20 /min DO Katlin Fernandez Work Phone: [facility] 05-16-2023 13:00-0400 SaO2% (BldA) [Mass fraction] 96 % DO Katlin Fernandez Work Phone: [facility] 05-16-2023 13:00-0400 Systolic blood pressure 133 mm[Hg] DO Katlin Fernandez Work Phone: [facility] 05-16-2023 11:05-0400 Body height 149.86 cm DO Katlin Fernandez Work Phone: [facility] 05-16-2023 11:05-0400 Body weight 92.6 kg DO Katlin Fernandez Work Phone: [facility] 05-12-2023 17:30-0400 Diastolic blood pressure 74 mm[Hg] DO Katlin Fernandez Work Phone: [facility] 05-12-2023 17:30-0400 Heart rate 79 /min DO Katlin Fernandez Work Phone: [facility] 05-12-2023 17:30-0400 Respiratory rate 18 /min DO Katlin Fernandez Work Phone: [facility] 05-12-2023 17:30-0400 SaO2% (BldA) [Mass fraction] 97 % DO Katlin Fernandez Work Phone: [facility] 05-12-2023 17:30-0400 Systolic blood pressure 111 mm[Hg] DO Katlin Fernandez Work Phone: [facility] 05-12-2023 12:55-0400 Body height 149.86 cm DO Katlin Fernandez Work Phone: [facility] 05-12-2023 12:55-0400 Body temperature 97.6 [degF] DO Katlin Fernandez Work Phone: [facility] 05-12-2023 12:55-0400 Body weight 92.15 kg DO Katlin Fernandez Work Phone: [facility] 04-17-2023 10:54-0500 Body height 149.86 cm DO Katlin Fernandez Work Phone: [facility] 04-17-2023 10:54-0500 Body temperature 98.5 [degF] DO Katlin Fernandez Work Phone: [facility] 04-17-2023 10:54-0500 Body weight 93.7 kg DO Katlin Fernandez Work Phone: [facility] 04-17-2023 10:54-0500 Diastolic blood pressure 87 mm[Hg] DO Katlin Fernandez Work Phone: [facility] 04-17-2023 10:54-0500 Heart rate 80 /min DO Katlin Fernandez Work Phone: [facility] 04-17-2023 10:54-0500 Respiratory rate 16 /min DO Katlin Fernandez Work Phone: [facility] 04-17-2023 10:54-0500 SaO2% (BldA) [Mass fraction] 99 % DO Katlin Fernandez Work Phone: [facility] 04-17-2023 10:54-0500 Systolic blood pressure 135 mm[Hg] DO Katlin Fernandez Work Phone: [facility] 04-06-2023 11:51-0500 Body height 149.86 cm DO Katlin Fernandez Work Phone: [facility] 04-06-2023 11:51-0500 Body temperature 98.6 [degF] DO Katlin Fernandez Work Phone: [facility] 04-06-2023 11:51-0500 Body weight 92.55 kg DO Katlin Fernandez Work Phone: [facility] 04-06-2023 11:51-0500 Diastolic blood pressure 87 mm[Hg] DO Katlin Fernandez Work Phone: [facility] 04-06-2023 11:51-0500 Heart rate 77 /min DO Katlin Fernandez Work Phone: [facility] 04-06-2023 11:51-0500 Respiratory rate 20 /min DO Katlin Fernandez Work Phone: [facility] 04-06-2023 11:51-0500 SaO2% (BldA) [Mass fraction] 95 % DO Katlin Fernandez Work Phone: [facility] 04-06-2023 11:51-0500 Systolic blood pressure 143 mm[Hg] DO Katlin Fernandez Work Phone: [facility] 01-26-2023 16:24-0500 Body temperature 97.7 [degF] Jass Meek [facility] 01-26-2023 16:24-0500 Diastolic blood pressure 83 mm[Hg] Jass Meek [facility] 01-26-2023 16:24-0500 Heart rate 74 /min Jass Meek [facility] 01-26-2023 16:24-0500 Respiratory rate 16 /min Jass Meek [facility] 01-26-2023 16:24-0500 SaO2% (BldA) [Mass fraction] 99 % Jass Meek [facility] 01-26-2023 16:24-0500 Systolic blood pressure 130 mm[Hg] Jass Meek [facility] 01-21-2023 13:48-0500 Body temperature 98.24 [degF] Juan Antonio Rufus [facility] 01-21-2023 13:48-0500 Diastolic blood pressure 72 mm[Hg] Juan Antonio Rufus [facility] 01-21-2023 13:48-0500 Heart rate 75 /min Juan Antonio Rufus [facility] 01-21-2023 13:48-0500 Respiratory rate 14 /min Juan Antonio Rufus [facility] 01-21-2023 13:48-0500 SaO2% (BldA) [Mass fraction] 100 % Juan Antonio Rufus [facility] 01-21-2023 13:48-0500 Systolic blood pressure 126 mm[Hg] Juan Antonio Rufus [facility] 11-06-2022 16:31-0400 Body height 149.86 cm DO Katlin Fernandez Work Phone: [facility] 11-06-2022 16:31-0400 Body temperature 98.8 [degF] DO Katlin Fernandez Work Phone: [facility] 11-06-2022 16:31-0400 Body weight 92.9 kg DO Katlin Fernandez Work Phone: [facility] 11-06-2022 16:31-0400 Diastolic blood pressure 67 mm[Hg] DO Katlin Fernandez Work Phone: [facility] 11-06-2022 16:31-0400 Heart rate 84 /min DO Katlin Fernandez Work Phone: [facility] 11-06-2022 16:31-0400 Respiratory rate 16 /min DO Katlin Fernandez Work Phone: [facility] 11-06-2022 16:31-0400 SaO2% (BldA) [Mass fraction] 97 % DO Katlin Fernandez Work Phone: [facility] 11-06-2022 16:31-0400 Systolic blood pressure 125 mm[Hg] DO Katlin Fernandez Work Phone: [facility] 08-25-2022 22:11-0400 Diastolic blood pressure 96 mm[Hg] Curt Joaquín [facility] 08-25-2022 22:11-0400 Heart rate 88 /min Curt Joauqín [facility] 08-25-2022 22:11-0400 Mean blood pressure 107 mm[Hg] Curt Joaquín [facility] 08-25-2022 22:11-0400 Respiratory rate 15 /min Curt Joaquín [facility] 08-25-2022 22:11-0400 SaO2% (BldA) [Mass fraction] 97 % Curt Joaquín [facility] 08-25-2022 22:11-0400 Systolic blood pressure 129 mm[Hg] Curt Joaquín [facility] 08-25-2022 21:00-0400 Diastolic blood pressure 73 mm[Hg] Curt Joaquín [facility] 08-25-2022 21:00-0400 Heart rate 89 /min Curt Joaquín [facility] 08-25-2022 21:00-0400 Mean blood pressure 85 mm[Hg] Curt Joaquín [facility] 08-25-2022 21:00-0400 Respiratory rate 16 /min Curt Joaquín [facility] 08-25-2022 21:00-0400 Systolic blood pressure 108 mm[Hg] Curt Joaquín [facility] 08-25-2022 17:35-0400 Body temperature 98.6 [degF] Curt Joaquín [facility] 08-25-2022 17:35-0400 Diastolic blood pressure 75 mm[Hg] Curt Joaquín [facility] 08-25-2022 17:35-0400 Heart rate 93 /min Curt Joaquín [facility] 08-25-2022 17:35-0400 Respiratory rate 18 /min Curt Joaquín [facility] 08-25-2022 17:35-0400 SaO2% (BldA) [Mass fraction] 97 % Curt Joaquín [facility] 08-25-2022 17:35-0400 Systolic blood pressure 124 mm[Hg] Curt Joaquín [facility] 07-03-2022 13:00-0400 Body height 154.94 cm Katlin Fernandez Other [facility] Other 07-03-2022 13:00-0400 Body mass index (BMI) [Ratio] 39.41 kg/m2 Katlin Fernandez Other [facility] Other 07-03-2022 13:00-0400 Body temperature 98.6 [degF] Katlin Fernandez Other [facility] 07-03-2022 13:00-0400 Body weight 94.62 kg Katlin Fernandez Other [facility] Other 07-03-2022 13:00-0400 Diastolic blood pressure 76 mm[Hg] Katlin Fernandez Other [facility] 07-03-2022 13:00-0400 Respiratory rate 18 /min Katlin Porterers Other [facility] Other 07-03-2022 13:00-0400 SaO2% (BldA) [Mass fraction] 98 % Katlin Fernandez Other [facility] Other 07-03-2022 13:00-0400 Systolic blood pressure 122 mm[Hg] Katlin Fernandez Other [facility] Other 06-28-2022 17:48-0400 Body temperature 98.06 [degF] Jassjoleen Meek [facility] 06-28-2022 17:48-0400 Diastolic blood pressure 83 mm[Hg] Jass Meek [facility] 06-28-2022 17:48-0400 Heart rate 103 /min Jass Meek [facility] 06-28-2022 17:48-0400 Respiratory rate 16 /min Jass Meek [facility] 06-28-2022 17:48-0400 SaO2% (BldA) [Mass fraction] 99 % Jass Meek [facility] 06-28-2022 17:48-0400 Systolic blood pressure 131 mm[Hg] Jass Meek [facility] 06-22-2022 16:05-0400 Diastolic blood pressure 78 mm[Hg] Juan Antonio Rufus [facility] 06-22-2022 16:05-0400 Heart rate 77 /min Juan Antonio Rufus [facility] 06-22-2022 16:05-0400 Mean blood pressure 100 mm[Hg] Juan Antonio Rufus [facility] 06-22-2022 16:05-0400 Respiratory rate 16 /min Juan Antonio Rufus [facility] 06-22-2022 16:05-0400 SaO2% (BldA) [Mass fraction] 97 % Juan Antonio Rufus [facility] 06-22-2022 16:05-0400 Systolic blood pressure 143 mm[Hg] Juan Antonio Rufus [facility] 06-22-2022 13:00-0400 Diastolic blood pressure 99 mm[Hg] Juan Antonio Rufus [facility] 06-22-2022 13:00-0400 Heart rate 78 /min Juan Antonio Rufus [facility] 06-22-2022 13:00-0400 Mean blood pressure 111 mm[Hg] Juan Antonio Hooper [facility] 06-22-2022 13:00-0400 Respiratory rate 18 /min Juan Antonio Rufus [facility] 06-22-2022 13:00-0400 SaO2% (BldA) [Mass fraction] 95 % Juan Antonio Rufus [facility] 06-22-2022 13:00-0400 Systolic blood pressure 135 mm[Hg] Juan Antonio Hooper [facility] 06-22-2022 11:43-0400 Body temperature 98.42 [degF] Juan Antonio Hooper [facility] 06-22-2022 11:43-0400 Diastolic blood pressure 82 mm[Hg] Juan Antonio Hooper [facility] 06-22-2022 11:43-0400 Heart rate 88 /min Juan Antonoi Hooper [facility] 06-22-2022 11:43-0400 Respiratory rate 20 /min Juan Antonio Hooper [facility] 06-22-2022 11:43-0400 SaO2% (BldA) [Mass fraction] 94 % Juan Antonio Rufus [facility] 06-22-2022 11:43-0400 Systolic blood pressure 133 mm[Hg] Juan Antonio Hooper [facility] 05-30-2022 10:30-0400 Body height 154.94 cm Katlin Fernandez Other [facility] 05-30-2022 10:30-0400 Body mass index (BMI) [Ratio] 40.05 kg/m2 Katlin Fernandez Other [facility] 05-30-2022 10:30-0400 Body temperature 98.3 [degF] Katlin Fernandez Other [facility] 05-30-2022 10:30-0400 Body weight 96.16 kg Katlin Fernandez Other [facility] 05-30-2022 10:30-0400 Diastolic blood pressure 70 mm[Hg] Katlin Fernandez Other [facility] 05-30-2022 10:30-0400 Respiratory rate 20 /min Katlin Fernandez Other [facility] 05-30-2022 10:30-0400 SaO2% (BldA) [Mass fraction] 98 % Katlin Fernandez Other [facility] 05-30-2022 10:30-0400 Systolic blood pressure 116 mm[Hg] Katlin Fernandez Other [facility] 05-02-2022 11:09-0500 Body temperature 97.88 [degF] Kanu Robe [facility] 05-02-2022 11:09-0500 Diastolic blood pressure 94 mm[Hg] Kanu Robin [facility] 05-02-2022 11:09-0500 Heart rate 91 /min Kanu Robin [facility] 05-02-2022 11:09-0500 Respiratory rate 20 /min Kanu Robin [facility] 05-02-2022 11:09-0500 SaO2% (BldA) [Mass fraction] 99 % Kanu Robin [facility] 05-02-2022 11:09-0500 Systolic blood pressure 138 mm[Hg] Kanu Kelly [facility] 04-11-2022 10:15-0500 Body height 154.94 cm Katlin Fernandez Other [facility] 04-11-2022 10:15-0500 Body mass index (BMI) [Ratio] 40.05 kg/m2 Katlin Fernandez Other [facility] 04-11-2022 10:15-0500 Body temperature 97.7 [degF] Katlin Fernandez Other [facility] 04-11-2022 10:15-0500 Body weight 96.16 kg Katlin Fernandez Other [facility] 04-11-2022 10:15-0500 Diastolic blood pressure 80 mm[Hg] Katlni Fernandez Other [facility] 04-11-2022 10:15-0500 Respiratory rate 22 /min Katlin Fernandez Other [facility] 04-11-2022 10:15-0500 SaO2% (BldA) [Mass fraction] 97 % Katlin Fernandez Other [facility] 04-11-2022 10:15-0500 Systolic blood pressure 110 mm[Hg] Katlin Fernandez Other [facility] 03-11-2022 00:01-0500 Nursing Progress Note Reason Other: medicated for headache. lights dim. in view of nurses Cande Wise [facility] 03-10-2022 23:06-0500 Diastolic blood pressure 97 mm[Hg] [facility] 03-10-2022 23:06-0500 Heart rate 94 /min [facility] 03-10-2022 23:06-0500 Nursing Progress Note Reason Other: care assumed at this time. pt medicated for anxiety and agitation. [facility] 03-10-2022 23:06-0500 Respiratory rate 16 /min [facility] 03-10-2022 23:06-0500 SaO2% (BldA) [Mass fraction] 98 % [facility] 03-10-2022 23:06-0500 Systolic blood pressure 122 mm[Hg] [facility] 03-10-2022 23:00-0500 Hourly Rounding [facility] 03-10-2022 23:00-0500 Promise to Return [facility] 03-10-2022 22:00-0500 Hourly Rounding [facility] 03-10-2022 22:00-0500 Promise to Return [facility] 03-10-2022 21:00-0500 Hourly Rounding [facility] 03-10-2022 21:00-0500 Promise to Return [facility] 03-10-2022 18:23-0500 Body temperature 97.88 [degF] [facility] 03-10-2022 18:23-0500 Heart rate 89 /min [facility] 03-10-2022 18:23-0500 Respiratory rate 21 /min [facility] 03-10-2022 18:23-0500 SaO2% (BldA) [Mass fraction] 95 % [facility] 01-25-2022 14:00-0500 Diastolic blood pressure 75 mm[Hg] [facility] 01-25-2022 14:00-0500 Heart rate 92 /min [facility] 01-25-2022 14:00-0500 Hourly Rounding [facility] 01-25-2022 14:00-0500 Promise to Return [facility] 01-25-2022 14:00-0500 Respiratory rate 18 /min [facility] 01-25-2022 14:00-0500 SaO2% (BldA) [Mass fraction] 99 % [facility] 01-25-2022 14:00-0500 Systolic blood pressure 131 mm[Hg] [facility] 01-25-2022 01:00-0500 Diastolic blood pressure 76 mm[Hg] [facility] 01-25-2022 01:00-0500 Heart rate 99 /min [facility] 01-25-2022 01:00-0500 Hourly Rounding [facility] 01-25-2022 01:00-0500 Promise to Return [facility] 01-25-2022 01:00-0500 SaO2% (BldA) [Mass fraction] 100 % [facility] 01-25-2022 01:00-0500 Systolic blood pressure 132 mm[Hg] [facility] 01-25-2022 00:55-0500 Heart rate 95 /min [facility] 01-25-2022 00:55-0500 Respiratory rate 20 /min [facility] 01-25-2022 00:55-0500 SaO2% (BldA) [Mass fraction] 98 % [facility] 01-25-2022 00:03-0500 Body temperature 98.96 [degF] [facility] 01-25-2022 00:03-0500 Diastolic blood pressure 74 mm[Hg] [facility] 01-25-2022 00:03-0500 Heart rate 106 /min [facility] 01-25-2022 00:03-0500 Systolic blood pressure 134 mm[Hg] [facility] 01-09-2022 18:45-0500 Blood Pressure Location Olivia Cogar [facility] 01-09-2022 18:45-0500 Body temperature 98.24 [degF] Olivia Cogar [facility] 01-09-2022 18:45-0500 Diastolic blood pressure 72 mm[Hg] Olivia Cogar [facility] 01-09-2022 18:45-0500 Heart rate 83 /min Olivia Cogar [facility] 01-09-2022 18:45-0500 SaO2% (BldA) [Mass fraction] 97 % Olivia Cogar [facility] 01-09-2022 18:45-0500 Systolic blood pressure 118 mm[Hg] Olivia Cogar [facility] 12-27-2021 23:40-0400 Diastolic blood pressure 86 mm[Hg] [facility] 12-27-2021 23:40-0400 Heart rate 86 /min [facility] 12-27-2021 23:40-0400 Mean blood pressure 104 mm[Hg] [facility] 12-27-2021 23:40-0400 Respiratory rate 17 /min Curt [facility] 12-27-2021 23:40-0400 SaO2% (BldA) [Mass fraction] 95 % [facility] 12-27-2021 23:40-0400 Systolic blood pressure 141 mm[Hg] [facility] 12-27-2021 21:15-0400 Diastolic blood pressure 89 mm[Hg] [facility] 12-27-2021 21:15-0400 Heart rate 90 /min [facility] 12-27-2021 21:15-0400 Mean blood pressure 104 mm[Hg] [facility] 12-27-2021 21:15-0400 Respiratory rate 19 /min [facility] 12-27-2021 21:15-0400 SaO2% (BldA) [Mass fraction] 93 % [facility] 12-27-2021 21:15-0400 Systolic blood pressure 133 mm[Hg] [facility] 12-27-2021 20:31-0400 Body temperature 98.42 [degF] [facility] 12-27-2021 20:31-0400 Diastolic blood pressure 89 mm[Hg] [facility] 12-27-2021 20:31-0400 Heart rate 83 /min [facility] 12-27-2021 20:31-0400 Respiratory rate 18 /min [facility] 12-27-2021 20:31-0400 SaO2% (BldA) [Mass fraction] 98 % [facility] 12-27-2021 20:31-0400 Systolic blood pressure 141 mm[Hg] [facility] 12-01-2021 10:30-0400 Body height 154.94 cm Katlin Fernandez Other [facility] Other 12-01-2021 10:30-0400 Body mass index (BMI) [Ratio] 39.94 kg/m2 Katlin Fernandez Other [facility] Other 12-01-2021 10:30-0400 Body temperature 97.9 [degF] Katlin Fernandez Other [facility] Other 12-01-2021 10:30-0400 Body weight 95.89 kg Katlin Fernandez Other [facility] Other 12-01-2021 10:30-0400 Diastolic blood pressure 78 mm[Hg] Katlinnuha Fernandez Other [facility] Other 12-01-2021 10:30-0400 Respiratory rate 18 /min Katlin Fernandez Other [facility] Other 12-01-2021 10:30-0400 SaO2% (BldA) [Mass fraction] 98 % Katlinaleena Fernandez Other [facility] Other 12-01-2021 10:30-0400 Systolic blood pressure 104 mm[Hg] Katlin Fernandez Other [facility] Other 11-08-2021 10:15-0400 Diastolic blood pressure 82 mm[Hg] Kanu Kelly [facility] 11-08-2021 10:15-0400 Heart rate 76 /min Kanu Robin [facility] 11-08-2021 10:15-0400 Mean blood pressure 99 mm[Hg] Kanu Robin [facility] 11-08-2021 10:15-0400 Respiratory rate 16 /min Kanu Robin [facility] 11-08-2021 10:15-0400 SaO2% (BldA) [Mass fraction] 98 % Kanu Robin [facility] 11-08-2021 10:15-0400 Systolic blood pressure 133 mm[Hg] Kanu Robin [facility] 11-08-2021 09:30-0400 Diastolic blood pressure 67 mm[Hg] Kanu Robin [facility] 11-08-2021 09:30-0400 Heart rate 75 /min Kanu Robin [facility] 11-08-2021 09:30-0400 Hourly Rounding Kanu Robe [facility] 11-08-2021 09:30-0400 Promise to Return Kanu Robin [facility] 11-08-2021 09:30-0400 Respiratory rate 18 /min Kanu Robin [facility] 11-08-2021 09:30-0400 SaO2% (BldA) [Mass fraction] 100 % Kanu Robin [facility] 11-08-2021 09:30-0400 Systolic blood pressure 112 mm[Hg] Kanu Robin [facility] 11-08-2021 08:45-0400 SaO2% (BldA) [Mass fraction] 98 % Kanu Robin [facility] 11-08-2021 08:30-0400 Diastolic blood pressure 60 mm[Hg] Kanu Robin [facility] 11-08-2021 08:30-0400 Heart rate 80 /min Kanu Robin [facility] 11-08-2021 08:30-0400 Hourly Rounding Kanu Robe [facility] 11-08-2021 08:30-0400 Mean blood pressure 82 mm[Hg] Kanu Robin [facility] 11-08-2021 08:30-0400 Promise to Return Kanu Robin [facility] 11-08-2021 08:30-0400 Respiratory rate 16 /min Kanu Robin [facility] 11-08-2021 08:30-0400 Systolic blood pressure 127 mm[Hg] Kanu Robin [facility] 11-08-2021 07:45-0400 Mean blood pressure 83 mm[Hg] Kanu Robin [facility] 11-08-2021 07:30-0400 Hourly Rounding Kanu Robe [facility] 11-08-2021 07:30-0400 Promise to Return Kanu Robe [facility] 11-08-2021 06:44-0400 Body temperature 98.06 [degF] Kanu Robin [facility] 10-24-2021 21:12-0400 Diastolic blood pressure 77 mm[Hg] Curt [facility] 10-24-2021 21:12-0400 Heart rate 75 /min Curt Jo[facility] 10-24-2021 21:12-0400 Respiratory rate 17 /min Curt Jo[facility] 10-24-2021 21:12-0400 SaO2% (BldA) [Mass fraction] 99 % Curt [facility] 10-24-2021 21:12-0400 Systolic blood pressure 121 mm[Hg] Curt [facility] 10-24-2021 19:05-0400 Body temperature 98.6 [degF] [facility] 10-24-2021 19:05-0400 Diastolic blood pressure 80 mm[Hg] Curt [facility] 10-24-2021 19:05-0400 Heart rate 79 /min Curt Joaqu[facility] 10-24-2021 19:05-0400 Respiratory rate 16 /min Curt Jo[facility] 10-24-2021 19:05-0400 SaO2% (BldA) [Mass fraction] 97 % Curt [facility] 10-24-2021 19:05-0400 Systolic blood pressure 125 mm[Hg] Curt [facility] 10-24-2021 18:20-0400 Blood Pressure Location Olivia Cogar [facility] 10-24-2021 18:20-0400 Body temperature 98.42 [degF] Olivia Cogar [facility] 10-24-2021 18:20-0400 Diastolic blood pressure 84 mm[Hg] Olivia Cogar [facility] 10-24-2021 18:20-0400 Heart rate 83 /min Olivia Chongar [facility] 10-24-2021 18:20-0400 SaO2% (BldA) [Mass fraction] 98 % Olivia Chongar [facility] 10-24-2021 18:20-0400 Systolic blood pressure 128 mm[Hg] Olivia Chongar [facility] 09-20-2021 09:06-0400 Body temperature 98.6 [degF] Kanu Robe [facility] 09-20-2021 09:06-0400 Diastolic blood pressure 84 mm[Hg] Kanu Robin [facility] 09-20-2021 09:06-0400 Heart rate 76 /min Kanu Robe [facility] 09-20-2021 09:06-0400 Respiratory rate 18 /min Kanu Robin [facility] 09-20-2021 09:06-0400 SaO2% (BldA) [Mass fraction] 99 % Kanu Robin [facility] 09-20-2021 09:06-0400 Systolic blood pressure 141 mm[Hg] Kanu Robin [facility] 09-13-2021 10:04-0400 Body temperature 98.42 [degF] Kanu Robin [facility] 09-13-2021 10:04-0400 Diastolic blood pressure 83 mm[Hg] Kanu Robin [facility] 09-13-2021 10:04-0400 Heart rate 75 /min Kanu Robin [facility] 09-13-2021 10:04-0400 Respiratory rate 16 /min Kanu Kelly [facility] 09-13-2021 10:04-0400 SaO2% (BldA) [Mass fraction] 98 % Kanu Kelly [facility] 09-13-2021 10:04-0400 Systolic blood pressure 129 mm[Hg] Kanu Kelly [facility] 07-22-2021 23:29-0400 Nursing Progress Note Reason Other: discharge instructions given. pt verbalized understanding. Curt Joaqu[facility] 07-22-2021 23:29-0400 SaO2% (BldA) [Mass fraction] 98 % Curt [facility] 07-22-2021 23:28-0400 Diastolic blood pressure 78 mm[Hg] Curt [facility] 07-22-2021 23:28-0400 Heart rate 81 /min Curt Joaqu[facility] 07-22-2021 23:28-0400 Respiratory rate 16 /min Curt Joaqu[facility] 07-22-2021 23:28-0400 SaO2% (BldA) [Mass fraction] 98 % Curt Joqau[facility] 07-22-2021 23:28-0400 Systolic blood pressure 106 mm[Hg] Curt [facility] 07-22-2021 22:39-0400 Diastolic blood pressure 72 mm[Hg] Curt [facility] 07-22-2021 22:39-0400 Heart rate 112 /min Curt Joaqu[facility] 07-22-2021 22:39-0400 Mean blood pressure 89 mm[Hg] Curt [facility] 07-22-2021 22:39-0400 Respiratory rate 18 /min Curt Jo[facility] 07-22-2021 22:39-0400 SaO2% (BldA) [Mass fraction] 99 % Curt Jo[facility] 07-22-2021 22:39-0400 Systolic blood pressure 123 mm[Hg] Curt Jo[facility] 07-22-2021 21:30-0400 Diastolic blood pressure 74 mm[Hg] Curt Jo[facility] 07-22-2021 21:30-0400 Heart rate 97 /min Curt Joaqu[facility] 07-22-2021 21:30-0400 Mean blood pressure 95 mm[Hg] Curt Jo[facility] 07-22-2021 21:30-0400 Respiratory rate 19 /min Curt Jo[facility] 07-22-2021 21:30-0400 Systolic blood pressure 136 mm[Hg] Curt Jo[facility] 07-22-2021 20:21-0400 Body temperature 97.7 [degF] Curt [facility] 07-22-2021 20:21-0400 Mean blood pressure 100 mm[Hg] Curt [facility] 07-21-2021 00:00-0400 Diastolic blood pressure 71 mm[Hg] [facility] 07-21-2021 00:00-0400 Heart rate 78 /min Curt [facility] 07-21-2021 00:00-0400 Mean blood pressure 87 mm[Hg] Curt [facility] 07-21-2021 00:00-0400 Respiratory rate 16 /min Curt Jo[facility] 07-21-2021 00:00-0400 SaO2% (BldA) [Mass fraction] 96 % Curt [facility] 07-21-2021 00:00-0400 Systolic blood pressure 119 mm[Hg] Curt [facility] 07-20-2021 23:15-0400 Body temperature 98.6 [degF] Curt [facility] 07-20-2021 23:15-0400 Diastolic blood pressure 78 mm[Hg] Curt [facility] 07-20-2021 23:15-0400 Heart rate 81 /min Curt Jo[facility] 07-20-2021 23:15-0400 Respiratory rate 20 /min Curt Jo[facility] 07-20-2021 23:15-0400 SaO2% (BldA) [Mass fraction] 94 % Curt [facility] 07-20-2021 23:15-0400 Systolic blood pressure 130 mm[Hg] Curt Jo[facility] 06-15-2021 12:12-0400 Blood Pressure Location Diandra Lundymetz [facility] 06-15-2021 12:12-0400 Body temperature 97.88 [degF] Diandra Rahman [facility] 06-15-2021 12:12-0400 Diastolic blood pressure 88 mm[Hg] Diandra Rahman [facility] 06-15-2021 12:12-0400 Heart rate 86 /min Diandra Rahman [facility] 06-15-2021 12:12-0400 SaO2% (BldA) [Mass fraction] 95 % Diandra Rahman [facility] 06-15-2021 12:12-0400 Systolic blood pressure 120 mm[Hg] Diandra Rahman [facility] 06-15-2021 10:00-0400 Body height 154.94 cm Claudia Soledad Other [facility] Other 06-15-2021 10:00-0400 Body mass index (BMI) [Ratio] 40.43 kg/m2 Claudia Soledad Other [facility] Other 06-15-2021 10:00-0400 Body temperature 97.7 [degF] Claudia Soledad Other [facility] Other 06-15-2021 10:00-0400 Body weight 97.07 kg Claudia Soledad Other [facility] Other 06-15-2021 10:00-0400 Diastolic blood pressure 70 mm[Hg] Claudia Soledad Other [facility] Other 06-15-2021 10:00-0400 Respiratory rate 18 /min Claudiara Krishnamurthyz Other [facility] Other 06-15-2021 10:00-0400 SaO2% (BldA) [Mass fraction] 98 % Claudia Soledad Other [facility] Other 06-15-2021 10:00-0400 Systolic blood pressure 130 mm[Hg] Claudia Soledad Other [facility] Other 11-24-2020 09:30-0400 Body height 154.94 cm Aleena Ryder Other [facility] Other 11-24-2020 09:30-0400 Body mass index (BMI) [Ratio] 39.3 kg/m2 Aleena Ryder Other [facility] Other 11-24-2020 09:30-0400 Body temperature 96.9 [degF] Aleena Ryder Other [facility] Other 11-24-2020 09:30-0400 Body weight 94.35 kg Aleena Ryder Other [facility] Other 11-24-2020 09:30-0400 Diastolic blood pressure 74 mm[Hg] Aleena Ryder Other [facility] Other 11-24-2020 09:30-0400 Respiratory rate 18 /min Aleena Ryder Other [facility] Other 11-24-2020 09:30-0400 SaO2% (BldA) [Mass fraction] 98 % Aleena Ryder Other [facility] Other 11-24-2020 09:30-0400 Systolic blood pressure 122 mm[Hg] Aleena Ryder Other [facility] Other 10-12-2020 16:00-0400 Body height 154.94 cm Katlin Fernandez Other [facility] Other 10-12-2020 16:00-0400 Body mass index (BMI) [Ratio] 39.86 kg/m2 Katlin Fernandez Other [facility] Other 10-12-2020 16:00-0400 Body temperature 98 [degF] Katlin Fernandez Other [facility] Other 10-12-2020 16:00-0400 Body weight 95.71 kg Katlin Fernandez Other [facility] Other 10-12-2020 16:00-0400 Diastolic blood pressure 80 mm[Hg] Katlin Fernandez Other [facility] Other 10-12-2020 16:00-0400 Respiratory rate 18 /min Katlin Fernandez Other [facility] Other 10-12-2020 16:00-0400 SaO2% (BldA) [Mass fraction] 98 % Katlin Fernandez Other [facility] Other 10-12-2020 16:00-0400 Systolic blood pressure 132 mm[Hg] Katlin Fernandez Other [facility] Other 03-09-2020 23:21-0500 BP Diastolic 64 mm[Hg] [facility] [place] 03-09-2020 23:21-0500 BP Systolic 119 mm[Hg] [facility] [place] 03-09-2020 23:13-0500 BMI (Body Mass Index) 39.39 kg/m2 Dale Montoya [facility], [place] 03-09-2020 23:13-0500 Body Temperature 98.91 [degF] Dale Montoya [facility], [place] 03-09-2020 23:13-0500 Body weight 88.45 kg Dale [facility] , [place] 03-09-2020 23:13-0500 Height 149.9 cm Dale [facility] , [place] 03-09-2020 23:13-0500 Pulse (Heart Rate) 87 /min [facility] 03-09-2020 23:13-0500 Pulse Oximetry 94 % Dale [facility] , [place] 03-09-2020 23:13-0500 Respiratory Rate 20 /min Dale [facility], [place] 12-17-2019 08:27-0400 Body Temperature 98.4 [degF] Alan [facility], [place] 12-17-2019 08:27-0400 BP Diastolic 67 mm[Hg] [facility] , [place] 12-17-2019 08:27-0400 BP Systolic 110 mm[Hg] [facility] [place] 12-17-2019 08:27-0400 Pulse (Heart Rate) 76 /min [facility] 12-17-2019 08:27-0400 Pulse Oximetry 96 % [facility] [place] 12-17-2019 08:27-0400 Respiratory Rate 18 /min [facility] 12-15-2019 06:15-0400 BMI (Body Mass Index) 44.35 kg/m2 [facility] 12-15-2019 06:15-0400 Body weight 99.61 kg [facility] [place] 12-13-2019 17:30-0400 Height 149.9 cm [facility] , [place] 10-29-2019 17:52-0400 Body Temperature 98.1 [degF] Maximo Winters [facility] 10-29-2019 17:49-0400 BMI (Body Mass Index) 36.36 kg/m2 Maximo Mccall [facility], [place] 10-29-2019 17:49-0400 Body weight 81.65 kg Maximo Mccall [facility] , [place] 10-29-2019 17:49-0400 BP Diastolic 89 mm[Hg] Maximo Mccall [facility] , [place] 10-29-2019 17:49-0400 BP Systolic 132 mm[Hg] [facility] [place] 10-29-2019 17:49-0400 Height 149.9 cm Maximo Winters [facility] , [place] 10-29-2019 17:49-0400 Pulse (Heart Rate) 79 /min Maximo Mccall [facility], [place] 10-29-2019 17:49-0400 Pulse Oximetry 98 % [facility] , [place] 10-29-2019 17:49-0400 Respiratory Rate 16 /min Maximo Mccall [facility], [place] 10-28-2019 21:03-0400 Body Temperature 98.8 [degF] Maximo Winters [facility] 01-14-2019 09:14-0500 BMI (Body Mass Index) 36.15 kg/m2 Roya Waddell [facility], [place] 01-14-2019 09:14-0500 Body Temperature 98.6 [degF] [facility] [place] 01-14-2019 09:14-0500 Body weight 81.19 kg [facility] [place] 01-14-2019 09:14-0500 BP Diastolic 82 mm[Hg] [facility] [place] 01-14-2019 09:14-0500 BP Systolic 136 mm[Hg] [facility] [place] 01-14-2019 09:14-0500 Height 149.9 cm Roya Waddell [facility] , [place] 01-14-2019 09:14-0500 Pulse (Heart Rate) 76 /min [facility] [place] 01-14-2019 09:14-0500 Pulse Oximetry 95 % Roya [facility] , [place] 01-14-2019 09:14-0500 Respiratory Rate 16 /min Roya Waddell [facility] 01-12-2019 07:47-0500 Body Temperature 98.8 [degF] Roya [facility] 01-12-2019 07:47-0500 BP Diastolic 47 mm[Hg] [facility] [place] 01-12-2019 07:47-0500 BP Systolic 117 mm[Hg] [facility] [place] 01-12-2019 07:47-0500 Pulse (Heart Rate) 61 /min [facility] 01-12-2019 07:47-0500 Pulse Oximetry 98 % Roya [facility] , [place] 01-12-2019 07:47-0500 Respiratory Rate 16 /min [facility] 01-09-2019 12:45-0500 Height 152.4 cm [facility] [place] 01-08-2019 18:20-0500 BMI (Body Mass Index) 35.15 kg/m2 [facility] 01-08-2019 18:20-0500 Body weight 81.65 kg [facility] [place] 12-19-2018 10:32-0400 Pulse (Heart Rate) 94 /min [facility] 12-19-2018 09:39-0400 BP Diastolic 72 mm[Hg] [facility] [place] 12-19-2018 09:39-0400 BP Systolic 128 mm[Hg] [facility] [place] 12-19-2018 09:37-0400 Pulse Oximetry 96 % [facility] [place] 12-19-2018 09:37-0400 Respiratory Rate 20 /min [facility] 12-19-2018 09:36-0400 BMI (Body Mass Index) 40.4 kg/m2 [facility] 12-19-2018 09:36-0400 Body Temperature 97.5 [degF] [facility] 12-19-2018 09:36-0400 Body weight 90.72 kg Lupefranny Davila [facility] , [place] Encounters Encounter Date Encounter Type Care Provider Facility Start: 10-20-2024 End: 10-20-2024 Emergency department patient visit Kanu Kelly Facility[facility] Start: 10-07-2024 End: 10-07-2024 Emergency department patient visit Kanu Kelly Facility:[facility] Start: 08-11-2024 End: 08-11-2024 Emergency department patient visit Kanu Kelly [facility] Start: 07-28-2024 End: 07-28-2024 ambulatory Lois Darbynuha Facility:[facility] Start: 07-28-2024 End: 07-28-2024 Patient encounter procedure Lois HusseinCheryl Darbynuha [facility] Start: 07-22-2024 End: 07-22-2024 Emergency department patient visit Kanu Kelly [facility] Start: 05-22-2024 Non-patient / Non-visit Brianna Fernandez DO Work Phone: [facility] Work Phone: Start: 05-22-2024 End: 05-22-2024 Admission to same day surgery center Katlin Fernandez DO Work Phone: [facility] Work Phone: Start: 05-22-2024 End: 05-22-2024 ambulatory Katlin Fernandez DO Work Phone: [facility] Work Phone: Start: 05-21-2024 End: 05-21-2024 Patient encounter procedure Katlin Fernandez DO Work Phone: [facility] [place] Work Phone: Start: 05-21-2024 End: 05-21-2024 ambulatory Katlin Fernandez DO Work Phone: [facility] Work Phone: Start: 04-23-2024 End: 04-23-[address] [facility] Work Phone: Start: 04-23-2024 End: 04-23-2024 Patient encounter procedure [facility] Work Phone: Start: 02-06-2024 End: 02-06-2024 Office outpatient visit 25 minutes Anthony A Visci DO Work Phone: [facility] Comment on above: Pelvic pain in femal e; Left ovarian cyst; Menometrorrhagia; Dysmenorrhea; Adenomyosis Start: 02-06-2024 End: 02-06-2024 ambulatory ANTHONY A VISCI Not Available Start: 01-29-2024 End: 01-29-2024 Patient encounter procedure [facility] Work Phone: Start: 01-19-2024 End: 01-19-2024 Emergency department patient visit Flores Rogers Facility:[facility] Start: 01-10-2024 End: 01-10-2024 Bamboo flowsheet Anthony A Visci DO Work Phone: [facility] Start: 01-10-2024 End: 01-10-2024 Bamboo flowsheet Anthony A Visci DO Work Phone: [facility] Start: 01-10-2024 End: 01-10-2024 Office outpatient visit 25 minutes Anthony A Visci DO Work Phone: [facility] Comment on above: Pelvic pain in femal e; Left ovarian cyst; Menometrorrhagia; Dysmenorrhea; Dyspareunia, female; Screening for malignant neoplasm of cervix; Screening for HPV (human papillomavirus) Start: 01-10-2024 End: 01-10-2024 ambulatory ANTHONY A VISCI Not Available Start: 01-02-2024 End: 01-02-2024 Office outpatient visit 25 minutes Anthony Lanier DO Work Phone: [facility] Comment on above: Pelvic pain in femal e; Menometrorrhagia; Dysmenorrhea; Dyspareunia, female; Left ovarian cyst Start: 01-02-2024 End: 01-02-2024 ambulatory ANTHONY LANIER Not Available Start: 12-28-2023 End: 12-28-2023 Telephone encounter Anthony Lanier DO Work Phone: [facility] Start: 10-27-2023 End: 10-27-2023 Emergency department patient visit KATLIN FERNANDEZ [facility] Comment on above: Left flank pain (Isabelle luciano Dx) Start: 10-03-2023 End: 10-04-2023 Emergency department patient visit DO Katiln Fernandez Work Phone: [facility] Work Phone: Start: 09-21-2023 Non-patient / Non-visit DO Carina Fernandez Work Phone: [facility]ly [facility] Work Phone: Start: 09-20-2023 End: 09-20-2023 Emergency department patient visit DO Katlin Fernandez Work Phone: [facility] Work Phone: Start: 09-04-2023 Non-patient / Non-visit DO Carina Fernandez Work Phone: [facility]ly [facility] Work Phone: Start: 09-03-2023 End: 09-03-2023 Emergency department patient visit Jorge Oliva [facility] Start: 08-29-2023 Non-patient / Non-visit DO Carina Fernandez Work Phone: [facility]ly [facility] Work Phone: Start: 08-28-2023 Non-patient / Non-visit DO Carina Fernandez Work Phone: [facility]ly [facility] Work Phone: Start: 08-27-2023 End: 08-27-2023 Emergency department patient visit Jorge Oliva [facility] Start: 08-26-2023 End: 08-26-2023 Emergency department patient visit Jass SavageCheryl Meek [facility] Start: 07-21-2023 End: 07-21-2023 Emergency department patient visit DO Katlin Fernandez Work Phone: [facility] Work Phone: Start: 07-14-2023 End: 07-14-2023 Emergency department patient visit DO Katlin Fernandez Work Phone: [facility] Work Phone: Start: 07-09-2023 Non-patient / Non-visit DO Carina Fernandez Work Phone: [facility]ly [facility] Work Phone: Start: 07-06-2023 End: 07-06-2023 Emergency department patient visit DO Katlin Fernandez Work Phone: [facility] Work Phone: Start: 06-20-2023 End: 06-20-2023 ambulatory ANTHONY A VISCI Not Available Start: 06-13-2023 End: 06-13-2023 Emergency department patient visit DO Katlin Fernandez Work Phone: [facility] Work Phone: Start: 06-05-2023 End: 06-05-2023 ambulatory KAYLEEN PINEDO Not Available Start: 05-22-2023 End: 05-22-2023 Admission to same day surgery center DO Katlin Fernandez Work Phone: [facility] [place] Start: 05-22-2023 End: 05-22-2023 ambulatory DO Katlin Fernandez Work Phone: [facility] Work Phone: Start: 05-17-2023 End: 05-17-2023 ambulatory ANTHONY Blanton VISCI Not Available Start: 05-16-2023 End: 05-16-2023 Emergency department patient visit DO Katlin Fernandez Work Phone: [facility] Work Phone: Start: 05-12-2023 End: 05-12-2023 Emergency department patient visit DO Katlin Fernandez Work Phone: [facility] Work Phone: Start: 05-08-2023 End: 05-08-2023 ambulatory KAYLEEN D HILLS Not Available Start: 05-01-2023 End: 05-01-2023 ambulatory KAYLEEN D HILLS Not Available Start: 05-01-2023 End: 05-01-2023 ambulatory KAYLEEN D HILLS Not Available Start: 04-17-2023 End: 04-17-2023 Emergency department patient visit DO Katlin Fernandez Work Phone: [facility] Work Phone: Start: 04-12-2023 Chart abstracting Jessica Stevenson PT Work Phone: [facility] Start: 04-10-2023 Bamboo flowsheet Yariel Kimberly erd ERP DEVELOPER [facility] Start: 04-10-2023 Bamboo flowsheet Yariel Kimberly erd ERP DEVELOPER [facility] Start: 04-10-2023 End: 04-10-2023 ambulatory Yariel Wengerd ERP DEVELOPER [facility] Comment on above: Radicular pain of ri ght upper extremity (Primary Dx); Acute pain of right shoulder Start: 04-09-2023 End: 04-09-2023 ambulatory Katlin Fernandez Other [facility] [employer] Other Start: 04-09-2023 Telephone encounter Katlin Pretty [facility] Start: 04-06-2023 End: 04-06-2023 Emergency department patient visit DO Katlin Fernandez Work Phone: [facility] Work Phone: Start: 04-03-2023 End: 04-03-2023 ambulatory LIN KOHLER Not Available Start: 03-28-2023 Telephone encounter Katlin Pretty [facility] Start: 03-28-2023 End: 03-28-2023 ambulatory JESSICA KHAN[facility] [employer] Other Start: 03-22-2023 Non-patient / Non-visit DO Carina Fernandez Work Phone: [facility] Work Phone: Start: 03-21-2023 End: 03-21-2023 ambulatory KAYLEEN D HILLS Not Available Start: 02-21-2023 End: 02-21-2023 ambulatory KAYLEEN D HILLS Not Available Start: 01-26-2023 End: 01-26-2023 Emergency department patient visit Jass Meek [facility] Start: 01-21-2023 End: 01-21-2023 Emergency department patient visit Juan Antonio Rufus [facility] Start: 12-19-2022 End: 12-19-2022 ambulatory Katlin Fernandez Other [employer] [employer] Other Start: 12-19-2022 Telephone encounter Katlin Pretty [facility] Start: 11-10-2022 End: 11-10-2022 ambulatory Katlin Fernandez Other [place] [employer] Other Start: 11-10-2022 Telephone encounter Katlin Fernandez F PG [facility] Start: 11-07-2022 End: 11-07-2022 ambulatory Katlin Fernandez Other [employer] Other Start: 11-07-2022 Telephone encounter Katlin Fernandez F PG [facility] Start: 11-06-2022 End: 11-06-2022 Emergency department patient visit DO Katlin Fernandez Work Phone: [facility] Work Phone: Start: 08-28-2022 End: 08-31-2022 Pre-admission assessment Kayleen Pinedo [facility] Start: 08-25-2022 End: 08-25-2022 Emergency department patient visit Curt Yanes [facility] Start: 08-09-2022 End: 08-09-2022 ambulatory Claudia Rowe Other [employer] Other Start: 08-09-2022 Telephone encounter Claudia Soledad [facility] Start: 07-03-2022 End: 07-03-2022 ambulatory Katlin Fernandez Other [employer] Other Start: 07-03-2022 Office outpatient vi sit 25 minutes Katlinaleena Fernandez [facility] Start: 06-30-2022 End: 06-30-2022 ambulatory Katlin Fernandez Other [employer] Other Start: 06-30-2022 Telephone encounter Katlin Fernandez F [facility] Start: 06-28-2022 End: 06-28-2022 Emergency department patient visit Jass Meek [facility] Start: 06-26-2022 End: 06-26-2022 ambulatory Katlin Fernandez Other [employer] Other Start: 06-26-2022 Telephone encounter Katlin Fernandez F PG [facility] Start: 06-22-2022 End: 06-22-2022 Emergency department patient visit Juan Antonio Hooper [facility] Start: 06-15-2022 End: 06-15-2022 ambulatory Katlin Fernandez Other [employer] Other Start: 06-15-2022 Telephone encounter Katlin Fernandez F PG [facility] Start: 05-30-2022 End: 05-30-2022 ambulatory Katlin Fernandez Other [employer] Other Start: 05-30-2022 Office outpatient vi sit 25 minutes Katlin Fernandez [facility] Start: 05-03-2022 End: 05-03-2022 ambulatory Katlin Fernandez Other [employer] Other Start: 05-03-2022 Telephone encounter Katlin Fernandez F [facility] Start: 05-02-2022 End: 05-02-2022 ambulatory Katlin Fernandez Other [employer] Other Start: 05-02-2022 Telephone encounter Katlin Fernandez F [facility] Start: 05-02-2022 End: 05-02-2022 Emergency department patient visit Kanu Kelly [facility] Start: 04-11-2022 End: 04-11-2022 ambulatory Katlin Fernandez Other [employer] Other Start: 04-11-2022 Office outpatient vi sit 25 minutes Katlin Fernandez [facility] Start: 04-05-2022 End: 04-05-2022 ambulatory Katlin Fernandez Other [employer] Other Start: 04-05-2022 Telephone encounter Katlinaleena Fernandez F [facility] Start: 03-14-2022 End: 03-14-2022 ambulatory Katlin Fernandez Other [employer] Other Start: 03-14-2022 Telephone encounter Katlinaleena Fernandez F PG [facility] Start: 03-10-2022 End: 03-11-2022 Emergency department patient visit [facility] Start: 03-02-2022 End: 03-02-2022 ambulatory Katlin Fernandez Other [employer] Other Start: 03-02-2022 Telephone encounter Katlin Fernandez F [facility] Start: 02-14-2022 End: 02-14-2022 ambulatory Katlinaleena Fernandez Other [employer] Other Start: 02-14-2022 Telephone encounter Katlinaleena Fernandez F [facility] Start: 01-25-2022 End: 01-25-2022 ambulatory Katlin Fernandez Other [employer] Other Start: 01-25-2022 Telephone encounter Katlin Jim F [facility] Start: 01-25-2022 End: 01-25-2022 Emergency department [facility] Start: 01-09-2022 End: 01-09-2022 Patient encounter procedure Olivia Whittaker [facility] Start: 12-27-2021 End: 12-27-2021 Emergency department patient visit Curt Yanes [facility] Start: 12-01-2021 Office outpatient vi sit 25 minutes Katlinaleena Fernandez [facility] Start: 12-01-2021 End: 12-01-2021 ambulatory DO Katlin Fernandez Work Phone: [employer] Other Start: 12-01-2021 End: 12-01-2021 Patient encounter procedure DO Katlin Fernandez Work Phone: [facility] [place] Start: 11-08-2021 End: 11-08-2021 Emergency department patient visit Kanu Kelly [facility] Start: 10-25-2021 End: 10-25-2021 ambulatory Katlin Fernandez Other [employer] Other Start: 10-25-2021 Telephone encounter Katlin Fernandez [facility] Start: 10-24-2021 End: 10-24-2021 Emergency department patient visit Curt Yanes [facility] Start: 10-24-2021 End: 10-24-2021 Patient encounter procedure Olivia Whittaker [facility] Start: 09-21-2021 End: 09-21-2021 Patient encounter procedure Brayden POPE [facility] Start: 09-20-2021 End: 09-20-2021 Emergency department patient visit Kanu Kelly [facility] Start: 09-14-2021 End: 09-14-2021 ambulatory Katlin Fernandez Other [employer] Other Start: 09-14-2021 Telephone encounter [facility] Start: 09-13-2021 End: 09-13-2021 Emergency department patient visit Kanu Kelly [facility] Start: 07-27-2021 End: 07-27-2021 ambulatory Katlin Fernandez Other [employer] Other Start: 07-27-2021 Telephone encounter [facility] Start: 07-22-2021 End: 07-22-2021 Emergency department patient visit Curt AnnaCheryl Yanes [facility] Start: 07-20-2021 End: 07-21-2021 Emergency department patient visit Curt AnnaCheryl Yanes [facility] Start: 07-05-2021 End: 07-05-2021 Lab Drop off Owen TOSHIA [facility] Start: 06-15-2021 End: 06-15-2021 ambulatory Claudia Rowe Other [employer] Other Start: 06-15-2021 Office outpatient vi sit 15 minutes Claudia Rowe [facility] Start: 06-15-2021 End: 09-27-2021 Recurring Brayden POPE [facility] Start: 06-15-2021 End: 06-15-2021 Patient encounter procedure Diandra Rahman [facility] Start: 06-14-2021 End: 06-14-2021 Patient encounter procedure Diandra Rahman [facility] Start: 05-12-2021 End: 05-12-2021 ambulatory Katlin Fernandez Other [employer] Other Start: 05-12-2021 Telephone encounter Katlin Fernandez [facility] Start: 04-20-2021 End: 04-20-2021 ambulatory Katlin Fernandez Other [employer] Other Start: 04-20-2021 Telephone encounter Katlin Fernandez F [facility] Start: 03-28-2021 End: 03-28-2021 ambulatory Katlin Fernandez Other [employer] Other Start: 03-28-2021 Telephone encounter Katlin Fernandez F [facility] Start: 03-02-2021 End: 03-02-2021 ambulatory Katlin Fernandez Other [employer] Other Start: 03-02-2021 Telephone encounter Katlin Fernandez [facility] Start: 12-27-2020 End: 12-27-2020 ambulatory Katlin Fernandez Other [employer] Other Start: 12-27-2020 Telephone encounter Katlin Fernandez F [facility] Start: 12-24-2020 Telephone encounter Katlin Fernandez F [facility] Start: 12-01-2020 Telephone encounter Katlin Fernandez [facility] Start: 11-24-2020 Office outpatient vi sit 25 minutes Aleena Ryder [facility] Start: 10-12-2020 Office outpatient vi sit 15 minutes Katlin Fernandez [facility] Start: 03-10-2020 End: 03-10-2020 Emergency department patient visit AKTLIN B FERNANDEZ [facility] Start: 03-10-2020 End: 03-10-2020 Emergency department patient visit Dale Montoya Work Phone: [facility] ED Comment on above: Undifferentiated abd ominal pain (Primary Dx) Start: 12-31-2019 End: 12-31-2019 Subsequent hospital visit by physician [facility]lin [facility] Comment on above: Acute pyelonephritis ; Complicated UTI (urinary tract infection) Start: 12-13-2019 End: 12-17-2019 Evaluation and management of inpatient Alan Read Work Phone: [id number] Onc/Med Surg Comment on above: Complicated UTI (uri nary tract infection) (Primary Dx); Acute pyelonephritis Start: 10-29-2019 End: 10-29-2019 Emergency department patient visit [facility] ED Comment on above: Right arm pain (Prim makayla Dx) Start: 10-28-2019 End: 10-28-2019 Emergency department patient visit [facility] ED Start: 01-14-2019 End: 01-14-2019 Evaluation and management of inpatient Roya Waddell Work Phone: [facility] ED Comment on above: Flank pain (Primary Dx); Intractable nausea and vomiting Start: 01-08-2019 End: 01-12-2019 Evaluation and management of inpatient Roya Paulson Work Phone: [facility] Ortho/Med Surg Comment on above: Pyelonephritis (Prim makayla Dx); BV (bacterial vaginosis) Start: 12-19-2018 End: 12-19-2018 Emergency department patient visit Lupe Davila Work Phone: [facility] ED Comment on above: Pyelonephritis (Prim makayla Dx); Cyst of left ovary Start: 03-21-2017 End: 03-28-2017 ambulatory MAE COLIN [facility] Procedures Date Procedure Procedure Detail Performing Clinician Start: 05-22-2024 Esophagogastroduodenoscopy Katlin michael DO Work Phone: Start: 05-21-2024 Radionuclide gastric emptying study Asad Fernandze DO Work Phone: Start: 01-10-2024 IGP, APT HPV,RFX 16/18,45 Anthony A Visc i DO Work Phone: Start: 10-27-2023 Ct abdomen & pelvis w/contrast material Sera Turner MD Work Phone: Start: 10-27-2023 Dup-scan artl monique abdl/pel/scrot&/rpr orgn lmt Sera Turner MD Work Phone: Start: 10-27-2023 Us transvaginal Sera Turner MD Work Phone: Start: 10-27-2023 Urnls dip stick/tablet reagent auto microscopy Sera Turner MD Work Phone: Start: 10-27-2023 Basic metabolic panel calcium total Tonya Turner MD Work Phone: Start: 09-20-2023 Urine culture DO Katlin Fernandez [...] 04-06-2023 X-ray of cervical spine DO Katlin michael Work Phone: Start: 03-10-2020 Urine test visual color cmprsn meths Dale Montoya Work Phone: Start: 03-10-2020 Urinalysis microscopic only Dale Barrett Pal e Work Phone: Start: 03-10-2020 Urnls dip stick/tablet rgnt auto w/o microscopy Dale Montoya Work Phone: Start: 03-10-2020 Ct abdomen & [...] Start: 12-31-2019 Basic metabolic panel calcium total Willyb jerry Mcleod Work Phone: Start: 12-31-2019 Blood count [...] Work Phone: Start: 12-15-2019 Us transvaginal Nicolasa Yayo Work Phone: Start: 12-15-2019 Us retroperitoneal real [...] abdomen & pelvis w/o contrast material E Hayden Mattson Work Phone: Start: 12-13-2019 Basic metabolic panel calcium total E Ch in Srinivasan Work Phone: Start: 12-13-2019 Blood count complete auto&auto difrntl wbc E Hayden Mattson Work Phone: Start: 12-13-2019 Gonadotropin chorionic qualitative E Chi n Srinivasan Work Phone: Start: 12-13-2019 Procalcitonin (pct) E Hayden Mattson Work Phone: Start: 12-13-2019 Calcium urine quantitative timed specimen Nuha Mattson Work Phone: Start: 12-13-2019 Culture bacterial quanttative colony count urine Alan H Jacek Work Phone: Start: 12-13-2019 Urinalysis microscopic only [...] 01-14-2019 Basic metabolic panel calcium total Demetri Judge Work Phone: Start: 01-14-2019 Blood count complete auto&auto difrntl wbc Demetri Judge Work Phone: Start: 01-12-2019 Basic metabolic panel calcium total Negro Bishop Work Phone: Start: 01-12-2019 Blood count complete auto&auto difrntl wbc Negro Bishop Work Phone: Start: 01-12-2019 C-reactive protein Negro Bishop Work Phone: Start: 01-10-2019 Ct abdomen & pelvis w/contrast material Misa T Aouad Work Phone (unformatted): [phone] Start: 01-10-2019 C-reactive protein Misa T Aouad Work Phone (unformatted): [phone] Start: 01-09-2019 INFECTIOUS DISEASE INTERVENTION Misa T Aouad Work Phone (unformatted): [phone] Start: 01-08-2019 Iadna judi species direct probe tq Roya Paulson Work Phone: Start: 01-08-2019 Iadna multiple organisms amplified probe tq Roya Paulson Work Phone: Start: 01-08-2019 Dup-scan artl monique abdl/pel/scrot&/rpr orgn lmt Osmel Yung Work Phone: Start: 01-08-2019 Us transvaginal Osmel Yung Work Phone: Start: 01-08-2019 Blood count complete automated Roya Paulson Work Phone: Start: 01-08-2019 C-reactive protein Roya Paulson Work Phone: Start: 01-08-2019 Gonadotropin chorionic quantitative Douglas ael Ann Pleskye Work Phone: Start: 01-08-2019 Hemoglobin glycosylated a1c Roya Lowry bree Work Phone: Start: 01-08-2019 Culture bacterial quanttative colony count urine Osmel Yung Work Phone: Start: 01-08-2019 Urine test visual color cmprsn meths Osmel Yung Work Phone: Start: 01-08-2019 Urnls dip stick/tablet reagent auto microscopy Osmel Yung Work Phone: Start: 12-19-2018 Ct abdomen & pelvis w/contrast material Harvey Palacio Work Phone: Start: 12-19-2018 Urinalysis microscopic only Harvey Moy kriss Work Phone: Start: 12-19-2018 Urnls dip stick/tablet rgnt auto w/o microscopy Harvey Pia Work Phone: Start: 12-19-2018 Blood count complete auto&auto difrntl wbc Harvey Palacio Work Phone: Start: 12-19-2018 Comprehensive metabolic panel Harvey Franklyn quick Work Phone: Start: 12-19-2018 Gonadotropin chorionic qualitative Marecllo Palacio Work Phone: section Diandra phelan Cholecystectomy Diandra kim Esophagogastroduoden oscopy gastric outlet reduction Diandra Rahman Ligation of fallopian tube Vida Rahman Plan of Treatment Date Care Activity Detail Author Start: 03-01-2028 DTaP/Tdap/Td vaccine (3 - Td or Tdap) DTaP/Tdap/Td vaccine (3 - Td or Tdap) [facility] Start: 03-01-2028 DTaP/Tdap/Td vaccine (3 - Td) DTaP/Tdap/Td vaccine (3 - Td) [facility] [place] Start: 05-22-2024 [facility] Start: 2024 End: 2024 Patient encounter procedure 2024 10:15 AM EST Office Visit [facility] [address] [place] [phone] ReinaAnthony, DO [address] [place] [address] [facility] Start: 2024 End: 2024 Professional / ancillary services management 2024 9:30 AM EST Ancillary Procedure [facility] [address] [place] [phone] [facility] Start: 02-06-2024 End: 02-06-2024 Patient encounter procedure 02/06/2024 1:15 PM EST Office Visit [facility] [address] [place] [phone] Anthony Lanier Franny, DO [address] [place] [address] [facility] Start: 02-06-2024 End: 02-06-2024 Professional / ancillary services management 02/06/2024 12:30 PM EST Ancillary Procedure [facility] [address] [place] [phone] [facility] Start: 01-30-[address] [facility] Work Phone: Start: 01-02-2024 End: 01-02-2024 Patient encounter procedure 01/02/2024 8:45 AM EST Office Visit [facility] [address] [place] [address] MontrellAnthony reed, DO [address] [place] [address] [facility] Start: 10-27-2023 Annual Wellness Visi t (Medicare) Annual Wellness Visit (Medicare) [facility] Start: 10-04-2023 Bacteria identified in Urine by Culture Urine Culture [facility] Start: 10-04-2023 CT Abdomen and Pelvi s WO contrast [facility] Start: 10-04-2023 CT of abdomen and pelvis without contrast CT abdomen pelvis wo con [facility] Start: 09-27-2023 Influenza vaccination Flu vaccine (# 1) [facility] Start: 09-20-2023 Bacteria identified in Urine by Culture Urine Culture [facility] Start: 09-20-2023 CT Abdomen and Pelvi s WO contrast [facility] Start: 09-20-2023 CT of abdomen and pelvis without contrast CT abdomen pelvis wo con [facility] Start: 07-21-2023 Diagnostic radiograp hy of abdomen XR acute abdomen series [facility] Start: 07-21-2023 XR Abdomen Views [facility] Start: 06-13-2023 Bacteria identified in Urine by Culture [facility] Start: 06-13-2023 [facility] Start: 05-22-2023 [facility] Start: 05-22-2023 [facility] Start: 05-12-2023 Bacteria identified in Urine by Culture Urine Culture [facility] Start: 05-01-2023 End: 05-01-2023 Patient encounter procedure 05/01/2023 11:00 AM EST Office Visit [facility] [address] [place] [phone] Kayleen Pinedo PA [address] [place] [address] [facility] Start: 04-27-2023 End: 04-27-2023 ambulatory 04/27/2023 12:00 PM EST Treatment [facility] [address] [place] [phone] Jessica Stevenson, PT [address] [place] [address] [facility] Start: 04-24-2023 End: 04-24-2023 ambulatory 04/24/2023 12:30 PM EST Treatment [facility] [address] [place] [address] Lin Kohler, ERP DEVELOPER [address] [place] [address] [facility] Start: 04-20-2023 End: 04-20-2023 ambulatory 04/20/2023 12:00 PM EST Treatment [facility] [address] [place] [address] Lin Kohler, ERP DEVELOPER [address] [place] [address] [facility] Start: 04-17-2023 End: 04-17-2023 ambulatory 04/17/2023 1:00 PM EST Treatment [facility] [address] [place] [address] Jessica Stevenson, PT [address] [place] [address] [facility] Start: 04-13-2023 End: 04-13-2023 ambulatory 04/13/2023 12:00 PM EST Treatment [facility] [address] [place] [address] Jessica Setvenson, PT [address] [place] [address] [facility] Start: 04-10-2023 End: 04-10-2023 ambulatory 04/10/2023 12:00 PM EST Treatment [facility] [address] [place] [phone] Yariel Elam, SOURAV Arrived [facility] Comment on above: Arrived Start: 11-06-2022 Duplex scan of lower limb veins US venous duplex LE LT [facility] Start: 11-06-2022 US Lower extremity v ein - left [facility] Start: 10-27-2022 COVID-19 Vaccine ( season) COVID-19 Vaccine ( season) [facility] Start: 12-24-2019 End: 12-16-2020 Basic metabolic 2000 panel Basic Metabolic Panel Lab Routine Acute pyelonephritis Complicated UTI (urinary tract infection) Expected: 12/24/2019, Expires: 12/16/2020 [place], [place] Comment on above: Expected: 12/24/2019 , Expires: 12/16/2020 Start: 12-24-2019 End: 12-16-2020 CBC With Auto Differential CBC With Auto Differential Lab Routine Acute pyelonephritis Complicated UTI (urinary tract infection) Expected: 12/24/2019, Expires: 12/16/2020 [place], [place] Comment on above: Expected: 12/24/2019 , Expires: 12/16/2020 Start: 12-24-2019 End: 12-16-2020 Urinalysis Reflex to Culture Urinalysis Reflex to Culture Lab Routine Acute pyelonephritis Complicated UTI (urinary tract infection) Expected: 12/24/2019, Expires: 12/16/2020 [place], [place] Comment on above: Expected: 12/24/2019 , Expires: 12/16/2020 Start: 10-28-2019 Influenza vaccination Flu vaccine (# 1) [place], [place] Start: 10-27-2018 Influenza vaccination Flu vaccine (# 1) [place] Start: 08-18-2018 Annual Wellness Visi t (AWV) Annual Wellness Visit (AWV) [place] Start: 02-24-2018 Screening for malign ant neoplasm of cervix [facility] Start: 02-24-2009 Cervical cancer screen Cervical canc er screen [place], [place] Start: 02-24-2009 Screening for malign ant neoplasm of cervix [facility] Start: 02-24-2007 DTaP/Tdap/Td vaccine (1 - Tdap) DTaP/Tdap/Td vaccine ( - Tdap) [place] Start: 02-24-2006 Hepatitis C screening Hepatitis C sc reen [facility] Start: 02-24-2003 HIV screen HIV screen [place], [place] Start: 02-24-2003 HIV screening HIV screen [facility] Start: 09-04-2001 Hepatitis B vaccine (3 of 3 - 3-dose primary series) Hepatitis B vaccine (3 of 3 - 3-dose primary series) [place] Start: 09-04-2001 Hepatitis B vaccine (3 of 3 - 3-dose series) Hepatitis B vaccine (3 of 3 - 3-dose series) [facility] Start: 02-24-2001 Varicella Vaccine (1 of 2 - 13+ 2-dose series) Varicella Vaccine (1 of 2 - 13+ 2-dose series) [facility] Start: 2000 Depression Monitoring Depression Mon itoring [facility] Start: 02-24-1994 Pneumococcal 0-64 ye ars Vaccine (1 of 1 - PPSV23) Pneumococcal 0-64 years Vaccine (1 of 1 - PPSV23) [place] Start: 02-24-1994 Pneumococcal 0-64 ye ars Vaccine (1 of 2 - PCV) Pneumococcal 0-64 years Vaccine (1 of 2 - PCV) [facility] Start: 02-24-1989 Varicella Vaccine (1 of 2 - 2-dose childhood series) Varicella Vaccine (1 of 2 - 2-dose childhood series) [place], [place] Start: 1988 Hepatitis C screening Hepatitis C sc [place]en [place] End: 12-19-2018 Bacteria identified Cx Nom (U) Urine Culture Microbiology Routine Once for 1 Occurrences starting 12/19/2018 until 12/19/2018 [place] Comment on above: Once for 1 Occurrenc es starting 12/19/2018 until 12/19/2018 Bacteria identified Cx Nom (U) [facility] Bacteria identified in Urine by Culture [facility] Bacteria identified in Urine by Culture [facility] Basic Metabolic Pane l w/ Reflex to MG Basic Metabolic Panel w/ Reflex to MG Lab Routine Daily until discontinued starting 12/14/2019, 4 completed [place] Comment on above: Daily until disconti nued starting 12/14/2019, 4 completed End: 12-14-2019 C.trachomatis N.gonorrhoeae DNA C.trachomatis N.gonorrhoeae DNA Microbiology Routine One Time for 1 Occurrences starting 12/14/2019 until 12/14/2019 [place] Comment on above: One Time for 1 Occur rences starting 12/14/2019 until 12/14/2019 End: 12-14-2019 CALCIUM, RANDOM URINE CALCIUM, RANDOM URINE Lab Routine One Time for 1 Occurrences starting 12/14/2019 until 12/14/[address] [facility] above: One Time for 1 Occur rences starting 12/14/2019 until 12/14/2019 CBC auto differential CBC auto d ifferential Lab Routine Daily until discontinued starting 12/14/2019, [address] [facility] Comment on above: Daily until disconti nued starting 12/14/2019, [address] ABDOMEN PELVIS W IV CONTRAST Additional Contrast? None CT ABDOMEN PELVIS W IV CONTRAST Additional Contrast? None Imaging STAT 12/19/2018 10:50 AM EDT [facility] [place] End: 12-14-2019 Culture, Blood 1 Culture, Blood 1 Microbiology STAT One Time for 1 Occurrences starting 12/14/2019 until 12/14/[address] [facility] Comment on above: One Time for 1 Occur rences starting 12/14/2019 until 12/14/2019 End: 12-31-2019 Culture, Urine Culture, Urine Microbiology Routine Once for 1 Occurrences starting 12/31/2019 until 12/31/[address] [facility] Comment on above: Once for 1 Occurrenc es starting 12/31/2019 until 12/31/2019 End: 10-27-2023 Culture, Urine [facility] Comment on above: One Time for 1 Occur rences starting 10/27/2023 until 10/27/2023 Dup-scan artl monique abdl/pel/scrot&/rpr orgn lmt US DUP ABD PEL RETRO SCROT LIMITED Imaging STAT 10/27/2023 1:17 PM EDT [facility] End: 01-10-2019 Infectious Disease Intervention Infectious Disease Intervention Microbiology Routine One Time for 1 Occurrences starting 01/10/2019 until 01/10/[address] [facility] Comment on above: One Time for 1 Occur rences starting 01/10/2019 until 01/10/2019 End: 12-14-2019 OCCULT BLOOD SCREEN OCCULT BLOOD SCREEN Lab Routine One Time for 1 Occurrences starting 12/14/2019 until 12/14/[address] [facility] Comment on above: One Time for 1 Occur rences starting 12/14/2019 until 12/14/2019 Oxygen therapy [[facility] Data Set] Initiate Oxygen Therapy Protocol Respiratory Care Routine Daily until discontinued starting 12/14/[address] [facility] Comment on above: Daily until disconti nued starting 12/14/2019 Patient Education [facility] Work Phone: Patient referral [facility] Work Phone: Radionuclide gastric emptying study [facility] US Pelvis US PELVIS COMPLE TE Imaging STAT 10/27/2023 1:17 PM EDT [facility] US Pelvis transvaginal US NON OB TRANSVAGINAL Imaging STAT 10/27/2023 1:17 PM EDT [facility] Immunizations Immunization Date Immunization Notes Care Provider Fa jo ann 03-31-2019 PROMETHAZINE (Phenergan) up to 50 mg Aleena Ryder Other [facility] Other 03-01-2018 tetanus toxoid, reduced diphtheria toxoid, and acellular pertussis vaccine, adsorbed Olivia Cogar [facility] 03-08-2017 influenza, seasonal, injectable Aleena Ryder Other [facility] Other 12-01-2016 tetanus toxoid, reduced diphtheria toxoid, and acellular pertussis vaccine, adsorbed [facility] 12-01-2016 tetanus toxoid, reduced diphtheria toxoid, and acellular pertussis vaccine, adsorbed; Translations: [Adacel (Tdap)] Diandra Rahman [facility] 07-10-2001 hepatitis B vaccine, pediatric or pediatric/adolescent dosage Olivia Cogar [facility] 01-21-2001 hepatitis B vaccine, pediatric or pediatric/adolescent dosage Olivia Cogar [facility] 01-21-2001 measles, mumps and rubella virus vaccine Olivia Whittaker [facility] NEGATED: Highlighted row has not occurred!03-08-2017 influenza, seasonal, injectable Katlin Fernandez Other [facility] Other Payers Date Payer Category Payer Self-pay [id number] 2019 Medicaid [id number] 2018 Medicaid MEDICAID [facility] DEPT OF JOB xxxxxxxxxxxx 2018-Present [phone] [address] [place] [address] xxxxxxxxxxxx [id number]. [id number] 2015 Medicaid [id number]. [id number] 2014 Medicare MEDICARE MEDICAR E PART A AND B xxxxxxxxxxx 2014-Present [phone] [place] [address] xxxxxxxxxxx [id number]. [id number] 2008 Medicare [id number]. [id number]. [id number] 2008 Medicare [id number] 1.2.840.241407.1.13.239.2. 7.3.844078.315 1988 Unknown [id number] 2.16.840.1.033079.3.579.2. 177 1988 Unknown [id number] 2.16.840.1.889370.3.579.2. 727 1988 Unknown [id number] 2.16.840.1.642430.3.579.2. 727 1988 Unknown [id number] 2.16.840.1.332683.3.579.2. 727 1988 Unknown [id number] 2.16.840.1.351499.3.579.2. 727 1988 Unknown [id number] 2.16.840.1.028440.3.579.2. 727 1988 Unknown [id number] 2.16.840.1.807083.3.579.2. 727 1988 Unknown [id number] 2.16.840.1.573813.3.579.2. 175 1988 Unknown [id number] 2.16.840.1.536763.3.579.2. 1259 1988 Unknown [id number] 2.16.840.1.942119.3.579.2. 9 1988 Unknown [id number] 2.16.840.1.024457.3.579.2. 1259 1988 Unknown [id number] 2.16.840.1.687763.3.579.2. 9 1988 Unknown [id number] 2.16.840.1.523622.3.579.2. 1259 1988 Unknown [id number] 2.16.840.1.435185.3.579.2. 1259 1988 Unknown [id number] 2.16.840.1.063002.3.579.2. 1259 1988 Unknown [id number] 2.16.840.1.764204.3.579.2. 9 1988 Unknown [id number] 2.16.840.1.168016.3.579.2. 1259 1988 Unknown [id number] 2.16.840.1.506165.3.579.2. 1259 1988 Unknown [id number] 2.16.840.1.417758.3.579.2. 1259 1988 Unknown [id number] 2.16.840.1.917781.3.579.2. 9 1988 Unknown [id number] 2.16.840.1.619088.3.579.2. 1259 1988 Unknown [id number] 2.16.840.1.116926.3.579.2. 9 1988 Unknown [id number] 2.16.840.1.327285.3.579.2. 9 1988 Unknown [id number] 2.16.840.1.479183.3.579.2. 1258 1988 Unknown [id number] 2.16.840.1.759665.3.579.2. 9 1988 Unknown [id number] 2.16.840.1.538292.3.579.2. 1258 1988 Unknown [id number] 2.16.840.1.749138.3.579.2. 1258 1988 Unknown [id number] 2.16.840.1.092363.3.579.2. 1988 Unknown [id number] 2.16.840.1.186897.3.579.2. 1988 Unknown [id number] 2.16.840.1.866498.3.579.2. 1988 Unknown [id number] 2.16.840.1.519124.3.579.2. 72 1988 Unknown [id number] 2.16.840.1.259308.3.579.2. 1988 Unknown [id number] 2.16.840.1.405571.3.579.2. 727 1988 Unknown [id number] 2.16.840.1.028602.3.579.2. 1988 Unknown [id number] 2.16.840.1.422353.3.579.2. 727 1988 Unknown [id number] 2.16.840.1.869878.3.579.2. 727 1988 Unknown [id number] 2.16.840.1.206029.3.579.2. 727 Medicare Medicare Nonpatient [id number] Unknown [id number] 2.16.840.1.086758.3.579.2. 531 Unknown [id number] 2.16.840.1.512484.3.579.2. 531 Unknown [id number] 2.16.840.1.190497.3.579.2. 531 Unknown [id number] 2.16.840.1.866787.3.579.2. 531 Unknown [id number] 2.16.840.1.959913.3.579.2. 531 Unknown [id number] 2.16.840.1.410516.3.579.2. 531 Unknown [id number] 2.16.840.1.224965.3.579.2. 531 Unknown [id number] 2.16.840.1.127496.3.579.2. 531 Worker's Compensation [id number] Social History Date Type Detail Facility Start: 12-19-2018 End: 11-07-2022 Tobacco smoking status MIIS Current every day smoker [facility] End: 02-24-2019 History of tobacco use Cigar [place] Start: 12-19-2018 End: 10-27-2023 Alcohol intake No [place], [place] Start: 1990 Sex Assigned At Not on file [place] Start: 12-19-2018 End: 01-14-2019 Alcohol intake Current non-drinker of alcohol (finding) [place] Start: 10-29-2019 End: 05-17-2023 Tobacco smoking status NHIS Former [place] Start: 11-06-2022 End: 05-22-2024 History of tobacco use Current [place] Start: 10-29-2019 End: 03-09-2020 Tobacco use and exposure Never used [place] Exposure to SARS-CoV-2 (event) Not sure [place] Start: 03-09-2020 End: 02-24-2019 Tobacco smoking status NHIS Current some day smoker [place] Start: 03-09-2020 End: 10-27-2023 Alcohol intake Current drinker of alcohol (finding) [place] Start: 03-09-2020 Alcohol Comment occ [place] Start: 06-15-2021 End: 11-08-2021 Tobacco smoking status Light tobacco smoker (finding) [facility] Tobacco smoking status Never [facility] Start: 10-24-2021 Tobacco smoking status Heavy tobacco smoker (finding) [facility] Start: 1990 Sex Assigned At Female F [facility] Tobacco Current vaping o r e-cigarette use Smokeless Tobacco Use:. [facility] Tobacco smoking status [facility] History of tobacco use Cigarette Smoker [facility] Start: 03-21-2023 End: 10-27-2023 History of Social function [facility] Start: 11-07-2022 Tobacco Comment Smokes 1-/19 cigarettes/day [facility] Start: 11-07-2022 Alcohol Comment caffeine 1-2 cups/day [facility] Start: 04-17-2023 Tobacco smoking status MIIS Never smoked tobacco (finding) [facility] Start: 06-19-2023 End: 02-06-2024 Alcoholic beverage intake Lifetime non-drinker (finding) [facility] How often to you hav e a drink containing alcohol? Never [facility] Start: 05-16-2018 End: 04-23-2024 Sex Female (finding) [facility] NEGATED: Highlighted row [facility] Goals Date Patient Goal Desired Activity /State Functional Status Date Assessment Result Facility 09-03-2023 Functional Status N/A [facility] 08-27-2023 Functional Status N/A [facility] 08-26-2023 Functional Status N/A [facility] 01-26-2023 Functional Status N/A [facility] 01-21-2023 Functional Status N/A [facility] 08-25-2022 Functional Status N/A [facility] 06-28-2022 Functional Status N/A [facility] 06-22-2022 Functional Status N/A [facility] 05-02-2022 Functional Status N/A [facility] 03-10-2022 Functional Status N/A [facility] 01-25-2022 Functional Status N/A [facility] 01-09-2022 Functional Status N/A [facility] 12-27-2021 Functional Status N/A [facility] 11-08-2021 N/A [facility] 10-24-2021 Functional Status N/A [facility] 09-20-2021 Functional Status N/A [facility] 09-13-2021 Functional Status N/A [facility] Clinical Notes 10-12-2020 to 10-20-2024 Note Date & Type Note Facility 10-20-2024 Note ED Patient Education Note Gastroenterology Nausea and Vomiting, Adult Nausea is feeling that you have an upset stomach and that you are about to vomit. Vomiting is when food in your stomach forcefully comes out of your mouth. Vomiting can make you feel weak. If you vomit, or if you are not able to drink enough fluids, you may not have enough water in your body (get dehydrated). If you do not have enough water in your body, you may: ??? Feel tired. ??? Feel thirsty. ??? Have a dry mouth. ??? Have cracked lips. ??? Pee (urinate) less often. Older adults and people with other diseases or a weak body defense system (immune system) are at higher risk for not having enough water in the body. If you feel like you may vomit or you vomit, it is important to follow instructions from your doctor about how to take care of yourself. Follow these instructions at home: Watch your symptoms for any changes. Tell your doctor about them. Eating and drinking ??? Take an ORS (oral rehydration solution). This is a drink that is sold at pharmacies and stores. ??? Drink clear fluids in small amounts as you are able, such as: ? Water. ? Ice chips. ? Fruit juice that has water added (diluted fruit juice). ? Low-calorie sports drinks. ??? Eat bland, scbs-sk-akrfin foods in small amounts as you are able, such as: ? Bananas. ? Applesauce. ? Rice. ? Low-fat (lean) meats. ? [place]. ? Crackers. ??? Avoid drinking fluids that have a lot of sugar or caffeine in them. This includes energy drinks, sports drinks, and soda. ??? Avoid alcohol. ??? Avoid spicy or fatty foods. General instructions ??? Take ojmh-dze-hdagguf and prescription medicines only as told by your doctor. ??? Drink enough fluid to keep your pee (urine) pale yellow. ??? Wash your hands often with soap and water for at least 20 seconds. If you cannot use soap and water, use hand tipple tender. ??? Make sure that everyone in your home washes their hands well and often. ??? Rest at home until you feel better. ??? Watch your condition for any changes. ??? Take slow and deep breaths when you feel like you may vomit. ??? Keep all follow-up visits. Contact a doctor if: ??? Your symptoms get worse. ??? You have new symptoms. ??? You have a fever. ??? You cannot drink fluids without vomiting. ??? You feel like you may vomit for more than 2 days. ??? You feel light-headed or dizzy. ??? You have a headache. ??? You have muscle cramps. ??? You have a rash. ??? You have pain while peeing. Get help right away if: ??? You have pain in your chest, neck, arm, or jaw. ??? You feel very weak or you faint. ??? You vomit again and again. ??? You have vomit that is bright red or looks like black coffee grounds. ??? You have bloody or black poop (stools) or poop that looks like tar. ??? You have a very bad headache, a stiff neck, or both. ??? You have very bad pain, cramping, or bloating in your belly (abdomen). ??? You have trouble breathing. ??? You are breathing very quickly. ??? Your heart is beating very quickly. ??? Your skin feels cold and clammy. ??? You feel confused. ??? You have signs of losing too much water in your body, such as: ? Dark pee, very little pee, or no pee. ? Cracked lips. ? Dry mouth. ? Sunken eyes. ? Sleepiness. ? Weakness. These symptoms may be an emergency. Get help right away. Call 911. ??? Do not wait to see if the symptoms will go away. ??? Do not drive yourself to the hospital. Summary ??? Nausea is feeling that you have an upset stomach and that you are about to vomit. Vomiting is when food in your stomach comes out of your mouth. ??? Follow instructions from your doctor about eating and drinking. ??? Take yona-kfe-pymxctr and prescription medicines only as told by your doctor. ??? Contact your doctor if your symptoms get worse or you have new symptoms. ??? Keep all follow-up visits. This information is not intended to replace advice given to you by your health care provider. Make sure you discuss any questions you have with your health care provider. Document Revised: 08/19/2021 Document Reviewed: 08/19/2021 [employer] Patient Education ? 2023 [employer] Pulmonary Medicine Acute Bronchitis, Adult Acute bronchitis is sudden inflammation of the main airways (bronchi) that come off the windpipe (trachea) in the lungs. The swelling causes the airways to get smaller and make more mucus than normal. This can make it hard to breathe and can cause coughing or noisy breathing (wheezing). Acute bronchitis may last several weeks. The cough may last longer. Allergies, asthma, and exposure to smoke may make the condition worse. What are the causes? This condition can be caused by germs and by substances that irritate the lungs, including: ??? Cold and flu viruses. The most common cause of this condit (more content not included)... [facility] 10-07-2024 Note ED Patient Education Note Gastroenterology Abdominal Pain, Adult Pain in the abdomen (abdominal pain) can be caused by many things. In most cases, it gets better with no treatment or by being treated at home. But in some cases, it can be serious. Your health care provider will ask questions about your medical history and do a physical exam to try to figure out what is causing your pain. Follow these instructions at home: Medicines ??? Take uvdp-rzt-sgbvygs and prescription medicines only as told by your provider. ??? Do not take medicines that help you poop (laxatives) unless told by your provider. General instructions ??? Watch your condition for any changes. ??? Drink enough fluid to keep your pee (urine) pale yellow. Contact a health care provider if: ??? Your pain changes, gets worse, or lasts longer than expected. ??? You have severe cramping or bloating in your abdomen, or you vomit. ??? Your pain gets worse with meals, after eating, or with certain foods. ??? You are constipated or have diarrhea for more than 2?3 days. ??? You are not hungry, or you lose weight without trying. ??? You have signs of dehydration. These may include: ? Dark pee, very little pee, or no pee. ? Cracked lips or dry mouth. ? Sleepiness or weakness. ??? You have pain when you pee (urinate) or poop. ??? Your abdominal pain wakes you up at night. ??? You have blood in your pee. ??? You have a fever. Get help right away if: ??? You cannot stop vomiting. ??? Your pain is only in one part of the abdomen. Pain on the right side could be caused by appendicitis. ??? You have bloody or black poop (stool), or poop that looks like tar. ??? You have trouble breathing. ??? You have chest pain. These symptoms may be an emergency. Get help right away. Call 911. ??? Do not wait to see if the symptoms will go away. ??? Do not drive yourself to the hospital. This information is not intended to replace advice given to you by your health care provider. Make sure you discuss any questions you have with your health care provider. Document Revised: 11/29/2022 Document Reviewed: 11/29/2022 [employer] Patient Education ? 2023 [employer]. [facility] 08-11-2024 Hospital Discharg e instructions Patient Education 08/11/2024 20:40:33 Flank Pain, Adult, Hubo-pc-Wkhs Flank Pain, Adult Flank pain is pain in your side. The flank is the area on your side between your upper belly (abdomen) and your spine. The pain may occur over a short time (acute), or it may be long-term or come back often (chronic). It may be mild or very bad. Pain in this area can be caused by many different things. Follow these instructions at home: Drink enough fluid to keep your pee (urine) pale yellow. Rest as told by your doctor. Take vigt-yyr-gxgkfxt and prescription medicines only as told by your doctor. Keep a journal to keep track of: ?What has caused your flank pain. ?What has made your flank pain feel better. Keep all follow-up visits. Contact a doctor if: Medicine does not help your pain. You have new symptoms. Your pain gets worse. Your symptoms last longer than 2 3 days. You have trouble peeing. You are peeing more often than normal. Get help right away if: You have trouble breathing. You are short of breath. Your belly hurts, or it is swollen or red. You feel like you may vomit (nauseous). You vomit. You feel faint, or you faint. You have blood in your pee. You have flank pain and a fever. These symptoms may be an emergency. Get help right away. Call your local emergency services (911 in the [place] Do not wait to see if the symptoms will go away. Do not drive yourself to the hospital. Summary Flank pain is pain in your side. The flank is the area of your side between your upper belly (abdomen) and your spine. Flank pain may occur over a short time (acute), or it may be long-term or come back often (chronic). It may be mild or very bad. Pain in this area can be caused by many different things. Contact your doctor if your symptoms get worse or last longer than 2 3 days. This information is not intended to replace advice given to you by your health care provider. Make sure you discuss any questions you have with your health care provider. Document Revised: 04/25/2021 Document Reviewed: 04/25/2021 [employer] Patient Education 2023 [employer]. 08/11/2024 20:40:33 Urinary Tract Infection, Adult, Imhl-ht-Kcpy Urinary Tract Infection, Adult A urinary tract infection (UTI) is an infection of any part of the urinary tract. The urinary tract includes: The kidneys. The ureters. The bladder. The urethra. These organs make, store, and get rid of pee (urine) in the body. What are the causes? This infection is caused by germs (bacteria) in your genital area. These germs grow and cause swelling (inflammation) of your urinary tract. What increases the risk? The following factors may make you more likely to develop this condition: Using a small, thin tube (catheter) to drain pee. Not being able to control when you pee or poop (incontinence). Being female. If you are female, these things can increase the risk: ?Using these methods to prevent : ?A medicine that kills sperm (spermicide). ?A device that blocks sperm (diaphragm). ?Having low levels of a female hormone (estrogen). ?Being . You are more likely to develop this condition if: You have genes that add to your risk. You are sexually active. You take antibiotic medicines. You have trouble peeing because of: ?A prostate that is bigger than normal, if you are male. ?A blockage in the part of your body that drains pee from the bladder. ?A kidney stone. ?A nerve condition that affects your bladder. ?Not getting enough to drink. ?Not peeing often enough. You have other conditions, such as: ?Diabetes. ?A weak disease-fighting system (immune system). ?Sickle cell disease. ?Gout. ?Injury of the spine. What are the signs or symptoms? Symptoms of this condition include: Needing to pee right away. Peeing small amounts often. Pain or burning when peeing. Blood in the pee. Pee that smells bad or not like normal. Trouble peeing. Pee that is cloudy. Fluid coming from the vagina, if you are female. Pain in the belly or lower back. Other symptoms include: Vomiting. Not feeling hungry. Feeling mixed up (confused). This may be the first symptom in older adults. Being tired and grouchy (irritable). A fever. Watery poop (diarrhea). How is this treated? Taking antibiotic medicine. Taking other medicines. Drinking enough water. In some cases, you may need to see a specialist. Follow these instructions at home: Medicines Take nicl-uju-egrprdv and prescription medicines only as told by your doctor. If you were prescribed an antibiotic medicine, take it as told by your doctor. Do not stop taking it even if you start to feel better. General instructions Make sure you: ?Pee until your bladder is empty. ?Do not hold pee for a long time. ?Empty your bladder after sex. ?Wipe from front to back after peeing or pooping if you are a female. Use each tissue one time when you wipe. Drink enough fluid to keep your pee pale yellow. Keep all follow-up visits. Contact a doctor if: You do not get better after 1 2 days. Your symptoms go away and then come back. Get help right away if: You have very bad back pain. You have very bad pain in your lower belly. You have a fever. You have chills. You feeling like you will vomit or you vomit. Summary A urinary tract infection (UTI) is an infection of any part of the urinary tract. This condition is caused by germs in your genital area. There are many risk factors for a UTI. Treatment includes antibiotic medicines. Drink enough fluid to keep your pee pale yellow. This information is not intended to replace advice given to you by your health care provider. Make sure you discuss any questions you have with your health care provider. Document Revised: 09/19/2020 Document Reviewed: 09/24/2020 [employer] Patient Education 2023 [employer]. 08/11/2024 20:40:33 Nausea and Vomiting, Adult, Xlhc-xo-Cysi Nausea and Vomiting, Adult Nausea is feeling that you have an upset stomach and that you are about to vomit. Vomiting is when food in your stomach forcefully comes out of your mouth. Vomiting can make you feel weak. If you vomit, or if you are not able to drink enough fluids, you may not have enough water in your body (get dehydrated). If you do not have enough water in your body, you may: Feel tired. Feel thirsty. Have a dry mouth. Have cracked lips. Pee (urinate) less often. Older adults and people with other diseases or a weak body defense system (immune system) are at higher risk for not having enough water in the body. If you feel like you may vomit or you vomit, it is important to follow instructions from your doctor about how to take care of yourself. Follow these instructions at home: Watch your symptoms for any changes. Tell your doctor about them. Eating and drinking Take an ORS (oral rehydration solution). This is a drink that is sold at pharmacies and stores. Drink clear fluids in small amounts as you are able, such as: ?Water. ?Ice chips. ?Fruit juice that has water added (diluted fruit juice). ?Low-calorie sports drinks. Eat bland, sqnz-fi-gvlilq foods in small amounts as you are able, such as: ?Bananas. ?Applesauce. ?Rice. ?Low-fat (lean) meats. ?Klamath. ?Crackers. Avoid drinking fluids that have a lot of sugar or caffeine in them. This includes energy drinks, sports drinks, and soda. Avoid alcohol. Avoid spicy or fatty foods. General instructions Take gfxo-cze-zowcdpr and prescription medicines only as told by your doctor. Drink enough fluid to keep your pee (urine) pale yellow. Wash your hands often with soap and water for at least 20 seconds. If you cannot use soap and water, use hand tipple tender. Make sure that everyone in your home washes their hands well and often. Rest at home until you feel better. Watch your condition for any changes. Take slow and deep breaths when you feel like you may vomit. Keep all follow-up visits. Contact a doctor if: Your symptoms get worse. You have new symptoms. You have a fever. You cannot drink fluids without vomiting. You feel like you may vomit for more than 2 days. You feel light-headed or dizzy. You have a headache. You have muscle cramps. You have a rash. You have pain while peeing. Get help right away if: You have pain in your chest, neck, arm, or jaw. You feel very weak or you faint. You vomit again and again. You have vomit that is bright red or looks like black coffee grounds. You have bloody or black poop (stools) or poop that looks like tar. You have a very bad headache, a stiff neck, or both. You have very bad pain, cramping, or bloating in your belly (abdomen). You have trouble breathing. You are breathing very quickly. Your heart is beating very quickly. Your skin feels cold and clammy. You feel confused. You have signs of losing too much water in your body, such as: ?Dark pee, very little pee, or no pee. ?Cracked lips. ?Dry mouth. ?Sunken eyes. ?Sleepiness. ?Weakness. These symptoms may be an emergency. Get help right away. Call 911. Do not wait to see if the symptoms will go away. Do not drive yourself to the hospital. Summary Nausea is feeling that you have an upset stomach and that you are about to vomit. Vomiting is when food in your stomach comes out of your mouth. Follow instructions from your doctor about eating and drinking. Take zhfq-kzq-qzjnyls and prescription medicines only as told by your doctor. Contact your doctor if your symptoms get worse or you have new symptoms. Keep all follow-up visits. This information is not intended to replace advice given to you by your health care provider. Make sure you discuss any questions you have with your health care provider. Document Revised: 08/19/2021 Document Reviewed: 08/19/2021 [employer] Patient Education 2023 [employer]. Follow Up Care 08/11/2024 17:52:32 With:KATLIN FERNANDEZ Address: [address] [place] [phone]- Business (1) When:08/14/2024 20:26:58 Comments:Call Dr for diagnosis based follow up [facility] 08-11-2024 Note ED Patient Education Note Gastroenterology Nausea and Vomiting, Adult Nausea is feeling that you have an upset stomach and that you are about to vomit. Vomiting is when food in your stomach forcefully comes out of your mouth. Vomiting can make you feel weak. If you vomit, or if you are not able to drink enough fluids, you may not have enough water in your body (get dehydrated). If you do not have enough water in your body, you may: ??? Feel tired. ??? Feel thirsty. ??? Have a dry mouth. ??? Have cracked lips. ??? Pee (urinate) less often. Older adults and people with other diseases or a weak body defense system (immune system) are at higher risk for not having enough water in the body. If you feel like you may vomit or you vomit, it is important to follow instructions from your doctor about how to take care of yourself. Follow these instructions at home: Watch your symptoms for any changes. Tell your doctor about them. Eating and drinking ??? Take an ORS (oral rehydration solution). This is a drink that is sold at pharmacies and stores. ??? Drink clear fluids in small amounts as you are able, such as: ? Water. ? Ice chips. ? Fruit juice that has water added (diluted fruit juice). ? Low-calorie sports drinks. ??? Eat bland, twey-gj-rwbjgq foods in small amounts as you are able, such as: ? Bananas. ? Applesauce. ? Rice. ? Low-fat (lean) meats. ? [place]. ? Crackers. ??? Avoid drinking fluids that have a lot of sugar or caffeine in them. This includes energy drinks, sports drinks, and soda. ??? Avoid alcohol. ??? Avoid spicy or fatty foods. General instructions ??? Take zrpd-dax-iotzzqb and prescription medicines only as told by your doctor. ??? Drink enough fluid to keep your pee (urine) pale yellow. ??? Wash your hands often with soap and water for at least 20 seconds. If you cannot use soap and water, use hand tipple tender. ??? Make sure that everyone in your home washes their hands well and often. ??? Rest at home until you feel better. ??? Watch your condition for any changes. ??? Take slow and deep breaths when you feel like you may vomit. ??? Keep all follow-up visits. Contact a doctor if: ??? Your symptoms get worse. ??? You have new symptoms. ??? You have a fever. ??? You cannot drink fluids without vomiting. ??? You feel like you may vomit for more than 2 days. ??? You feel light-headed or dizzy. ??? You have a headache. ??? You have muscle cramps. ??? You have a rash. ??? You have pain while peeing. Get help right away if: ??? You have pain in your chest, neck, arm, or jaw. ??? You feel very weak or you faint. ??? You vomit again and again. ??? You have vomit that is bright red or looks like black coffee grounds. ??? You have bloody or black poop (stools) or poop that looks like tar. ??? You have a very bad headache, a stiff neck, or both. ??? You have very bad pain, cramping, or bloating in your belly (abdomen). ??? You have trouble breathing. ??? You are breathing very quickly. ??? Your heart is beating very quickly. ??? Your skin feels cold and clammy. ??? You feel confused. ??? You have signs of losing too much water in your body, such as: ? Dark pee, very little pee, or no pee. ? Cracked lips. ? Dry mouth. ? Sunken eyes. ? Sleepiness. ? Weakness. These symptoms may be an emergency. Get help right away. Call 911. ??? Do not wait to see if the symptoms will go away. ??? Do not drive yourself to the hospital. Summary ??? Nausea is feeling that you have an upset stomach and that you are about to vomit. Vomiting is when food in your stomach comes out of your mouth. ??? Follow instructions from your doctor about eating and drinking. ??? Take xsbz-cnf-btsqzzk and prescription medicines only as told by your doctor. ??? Contact your doctor if your symptoms get worse or you have new symptoms. ??? Keep all follow-up visits. This information is not intended to replace advice given to you by your health care provider. Make sure you discuss any questions you have with your health care provider. Document Revised: 08/19/2021 Document Reviewed: 08/19/2021 [employer] Patient Education ? 2023 [employer]. Obstetrics and Gynecology Urinary Tract Infection, Adult A urinary tract infection (UTI) is an infection of any part of the urinary tract. The urinary tract includes: ??? The kidneys. ??? The ureters. ??? The bladder. ??? The urethra. These organs make, store, and get rid of pee (urine) in the body. What are the causes? This infection is caused by germs (bacteria) in your genital area. These germs grow and cause swelling (inflammation) of your urinary tract. What increases the risk? The following factors may make you more likely to develop this condition: ??? Using a small, thin tube (catheter) to drain pee. ??? Not being a (more content not included)... [facility] 08-11-2024 Evaluation + Plan note Diagnostic Tests PendingUrine Culture 08/11/24 [facility] 07-23-2024 [facility] Discharg e instructions Follow Up Care 07/23/2024 10:48:50 With:Lance BENTON, ZOEY Leyva, URO Address: When: Unknown [facility] 07-22-2024 Hospital Discharg e instructions Patient Education 07/22/2024 21:46:42 Colic, Tfuv-iy-Wmph Colic Colic refers to times when a baby cries for long periods of time for no reason. The crying usually starts in the afternoon or evening. Your baby may become fussy. He or she may also scream. Colic can last until your baby is 3 or 4 months old. What are the causes? The cause of colic is not known. What are the signs or symptoms? The baby cries a lot. The cry can be high-pitched and louder than normal crying. The baby makes faces that show pain. The baby draws his or her legs up to the belly. The baby makes his or her muscles stiff. The baby is very hard to comfort. How is this treated? This condition may be treated by: Trying different ways to soothe the baby. Try to understand what makes your baby calm. Changing the mother's food and drink, if the mother is . Changing your baby's formula. Preventing the baby from swallowing air during feeding. Ask your baby's doctor how to do this. Follow these instructions at home: Feeding your baby If you are , do not drink caffeine. Drinks that have caffeine include coffee, tea, and certain sodas. If you formula feed or bottle feed, burp your baby after every ounce of formula or breast milk. If you are , burp your baby every 5 minutes. Hold your baby upright during feeding. Keep your baby sitting up for at least 30 minutes after a feeding. Let your baby feed for at least 20 minutes. Always hold your baby while feeding. Do not feed your baby every time he or she cries. Wait at least 2 hours between feedings. If you bottle feed, change to a fast-flow bottle nipple. Comforting your baby When your baby fusses or cries, check to see if your baby: ?Is in an uncomfortable position. ?Is too hot or too cold. ?Has a wet or soiled diaper. ?Needs to be cuddled. Do a soothing, rhythmic activity with your baby. This could be rocking, putting him or her in a swing, or taking him or her for a car or stroller ride. ?Do not place a baby who is in a car seat on top of any rocking or moving surface. For example, do not place the baby on top of a washing machine that is running. ?If your baby is still crying after 20 minutes, let your baby cry until he or she falls asleep. If your baby is young, swaddle him or her as told by your baby's doctor. Play a sound that repeats over and over again. The sound could be from an electric fan, washing machine, or vacuum industrial cleaner. Think about giving your baby a pacifier. Managing stress If you feel stressed: Ask for help. Try to find time to leave the house for a little while. An adult you trust should watch your baby so you can do this. Put your baby in the crib where he or she will be safe. Then leave the room to take a break. General instructions Do not let your baby sleep for more than 3 hours at a time during the day. This helps your baby sleep better at night. Always put your baby on his or her back to sleep. Do not put your baby face down or on his or her stomach to sleep. Do not shake or hit your baby. Talk to your baby's doctor before giving your baby czbp-ixg-uuabnqn colic drops. If you are asked to change your diet, follow your doctor's instructions about what to eat and drink. Do not give your baby herbal tea. Keep all follow-up visits. Contact a doctor if: Your baby seems to be in pain. Your baby seems to be sick. Your baby has been crying for more than 3 hours. Get help right away if: You are scared that your stress will cause you to hurt your baby. You or someone else shook your baby. Your baby who is younger than 3 months has a temperature of 100.4 F (38 C) or higher. Your baby who is older than 3 months has a fever and other problems that do not go away. Your baby who is older than 3 months has a fever and problems that suddenly get worse. These symptoms may be an emergency. Do not wait to see if the symptoms will go away. Get help right away. Call your local emergency services (911 in the [place] Summary Colic is when a baby cries for a long time for no reason. If you formula feed or bottle feed, burp your baby after every ounce of formula or breast milk. If you are , burp your baby every 5 minutes. Do a soothing, rhythmic activity with your baby. This could be rocking, putting him or her in a swing, or taking him or her for a car or stroller ride. If you feel stressed, ask for help. Ask an adult you trust to watch your baby so you can leave the house for a little while. This information is not intended to replace advice given to you by your health care provider. Make sure you discuss any questions you have with your health care provider. Document Revised: 12/27/2020 Document Reviewed: 12/27/2020 [employer] Learn Patient Education 2023 [employer]. Follow Up Care 07/22/2024 17:09:14 With:Troy BOLIVAR Address: [address] [phone]- Business (1) When:07/25/2024 21:46:25 Comments:Call to schedule a follow-up appointment with urology. Use the medications as prescribed. Return to the ED with any new or worsening symptoms. With:KATLIN FERNANDEZ Address: [address] [place] [phone]- Business (1) When:Within 3 Day(s) [facility] 07-22-2024 Note ED Patient Education Note Pediatrics Colic Colic refers to times when a baby cries for long periods of time for no reason. The crying usually starts in the afternoon or evening. Your baby may become fussy. He or she may also scream. Colic can last until your baby is 3 or 4 months old. What are the causes? The cause of colic is not known. What are the signs or symptoms? The baby cries a lot. The cry can be high-pitched and louder than normal crying. ??? The baby makes faces that show pain. ??? The baby draws his or her legs up to the belly. ??? The baby makes his or her muscles stiff. ??? The baby is very hard to comfort. How is this treated? This condition may be treated by: ??? Trying different ways to soothe the baby. Try to understand what makes your baby calm. ??? Changing the mother's food and drink, if the mother is . ??? Changing your baby's formula. ??? Preventing the baby from swallowing air during feeding. Ask your baby's doctor how to do this. Follow these instructions at home: Feeding your baby ??? If you are , do not drink caffeine. Drinks that have caffeine include coffee, tea, and certain sodas. ??? If you formula feed or bottle feed, burp your baby after every ounce of formula or breast milk. If you are , burp your baby every 5 minutes. ??? Hold your baby upright during feeding. ??? Keep your baby sitting up for at least 30 minutes after a feeding. ??? Let your baby feed for at least 20 minutes. Always hold your baby while feeding. ??? Do not feed your baby every time he or she cries. Wait at least 2 hours between feedings. ??? If you bottle feed, change to a fast-flow bottle nipple. Comforting your baby ??? When your baby fusses or cries, check to see if your baby: ? Is in an uncomfortable position. ? Is too hot or too cold. ? Has a wet or soiled diaper. ? Needs to be cuddled. ??? Do a soothing, rhythmic activity with your baby. This could be rocking, putting him or her in a swing, or taking him or her for a car or stroller ride. ? Do not place a baby who is in a car seat on top of any rocking or moving surface. For example, do not place the baby on top of a washing machine that is running. ? If your baby is still crying after 20 minutes, let your baby cry until he or she falls asleep. ??? If your baby is young, swaddle him or her as told by your baby's doctor. ??? Play a sound that repeats over and over again. The sound could be from an electric fan, washing machine, or vacuum industrial cleaner. ??? Think about giving your baby a pacifier. Managing stress If you feel stressed: ??? Ask for help. ??? Try to find time to leave the house for a little while. An adult you trust should watch your baby so you can do this. ??? Put your baby in the crib where he or she will be safe. Then leave the room to take a break. General instructions ??? Do not let your baby sleep for more than 3 hours at a time during the day. This helps your baby sleep better at night. ??? Always put your baby on his or her back to sleep. Do not put your baby face down or on his or her stomach to sleep. ??? Do not shake or hit your baby. ??? Talk to your baby's doctor before giving your baby ihat-kur-jyvmsyj colic drops. ??? If you are asked to change your diet, follow your doctor's instructions about what to eat and drink. ??? Do not give your baby herbal tea. ??? Keep all follow-up visits. Contact a doctor if: ??? Your baby seems to be in pain. ??? Your baby seems to be sick. ??? Your baby has been crying for more than 3 hours. Get help right away if: ??? You are scared that your stress will cause you to hurt your baby. ??? You or someone else shook your baby. ??? Your baby who is younger than 3 months has a temperature of 100.4?F (38?C) or higher. ??? Your baby who is older than 3 months has a fever and other problems that do not go away. ??? Your baby who is older than 3 months has a fever and problems that suddenly get worse. These symptoms may be an emergency. Do not wait to see if the symptoms will go away. Get help right away. Call your local emergency services (911 in the [place] Summary ??? Colic is when a baby cries for a long time for no reason. ??? If you formula feed or bottle feed, burp your baby after every ounce of formula or breast milk. If you are , burp your baby every 5 minutes. ??? Do a soothing, rhythmic activity with your baby. This could be rocking, putting him or her in a swing, or taking him or her for a car or stroller ride. ??? If you feel stressed, ask for help. Ask an adult you trust to watch your baby so you can leave the house for a little while. This information is not intended to replace advice given to you by your health care provider. Make sure you discuss any questions you have with your health care provider. Document Revised: 12/27/2020 Document Reviewed: 12/27/2020 E (more content not included)... [facility] 07-22-2024 Evaluation + Plan note Diagnostic Tests PendingUrine Culture 07/22/24 [facility] 05-22-2024 Procedure note [facility] enter 05-22-2024 Procedure note [facility] enter 05-22-2024 History and physi sahil note [facility] enter 05-21-2024 Nuclear medicine Diagnostic study note [facility] [place] [address] Nuclear Medicine Report Signed Patient: Tracie Samuels MR#: [id number] : 1990 Acct:[id number] Age/Sex: 34 / F ADM Date: 5 Loc: [place] Room: Type: [facility] Attending Dr: Olga Fernandez DO Copies to: DO [place] Jeffrey S DO~ Ordering Provider: Olga Fernandez DO Date of Service: 05/21/24 NM/NM gastric emptying study: K92.0 - Hematemesis Nuclear medicine gastric emptying study TECHNIQUE: Patient ingested eggs containing 1.1 mCi of technetium 99m labeled sulfur colloid HISTORY: Hematemesis. Diarrhea. Stomach pain. Cholecystectomy. COMPARISON: None The 30 minute percent retention is 78%. The one-hour percent retention at 62%. The 2 hour percent retention is 56%. The three-hour percent retention is 25%. The 4% retention is 1%. [place]/NM gastric emptying study IMPRESSION: Adequate gastric emptying. Impression dictated by: Quique Lai M.D.05/21/2024 3:21 PM Dictation Location: [place] [address] Transcribed By: [facility] 05/21/24 1521 Dictated By: Quique Lai DO 05/21/24 1515 Signed By: 05/21/24 [facility] 04-23-2024 Evaluation note Diagnosis Onset Date Resolution Diarrhea acute April 23, 2024 9:40am Hematemesis acute March 9:40am Vomiting inactive April 23, 2024 9:40am [facility] Work Phone: [phone] 950-786312-11-2024 History of Present illness Narrative* Lluvia Mccarty LPN - 02/06/2024 1:15 PM EST Images from the original note were not included. Subjective Tracie Samuels is a 33 y.o. female Chief Complaint Patient presents with Pelvic Pain Pt presents for OV after US today. History of Present Illness Current Outpatient Medications: albuterol (2.5 MG/3ML) 0.083% nebulizer solution, Take 2.5 mg by nebulization as needed., Disp: , Rfl: albuterol HFA 90 mcg/act inhaler, Inhale 2 puffs if needed, Disp: , Rfl: cetirizine (ZyrTEC) 10 MG chewable tablet, Chew Daily., Disp: , Rfl: ketorolac (Toradol) 10 MG tablet, Take 10 mg by mouth every 6 (six) hours if needed for mild pain or moderate pain, Disp: , Rfl: norgestimate-ethinyl estradiol (Sprintec 28) 0.25-35 MG-MCG tablet, Take 1 tablet by mouth Daily Continuous active pills only, Disp: 112 tablet, Rfl: 4 ondansetron ODT (Zofran-ODT) 4 MG disintegrating tablet, Take 4 mg by mouth every 8 (eight) hours if needed for nausea or vomiting, Disp: , Rfl: oxyCODONE-acetaminophen (Percocet) 5-325 MG tablet, TAKE 1 TABLET BY MOUTH EVERY 6 HOURS NEEDED FOR PAIN FOR 3 DAYS, Disp: , Rfl: tiZANidine (Zanaflex) 4 MG tablet, Three times daily, Disp: , Rfl: Past Medical History: Diagnosis [...] 1 SAB IAB Ectopic Multiple Live Births 0 0 1 0 1 # Outcome Date GA Lbr Luis/2nd Weight Sex Type Anes PTL Lv 2 Ectopic 1 Para CS-LTranv CHRYSTAL Obstetric Comments Pap 01/10/24- Neg, HPV Neg Review of Systems All negative unless documented in treatment Objective Visit Vitals BP 124/84 Wt 215 lb LMP 02/05/2024 (Exact Date) BMI 43.42 kg/m OB Status [...] intolerance Physical Exam Constitutional: Appearance: Normal appearance. HENT: Head: Normocephalic and atraumatic. Cardiovascular: Rate and Rhythm: Normal rate and regular rhythm. Heart sounds: Normal heart sounds. Pulmonary: Effort: Pulmonary effort is normal. Breath sounds: Normal breath sounds. Musculoskeletal: Right lower leg: No edema. Left lower leg: No edema. Neurological: Mental Status: She is alert and oriented to person, place, and time. Skin: General: Skin is warm and dry. Findings: No rash. Exam conducted with a production floater present. Procedures ICD-10-CM 1. Pelvic pain in female R10.2 2. Left ovarian cyst N83.202 3. Menometrorrhagia N92.1 4. Dysmenorrhea N94.6 5. Adenomyosis N80.03 She was originally scheduled to return in January for repeat U/S and re- evaluate symptoms but her pain is persistent and she has gone back to [place] ER due to severity of pain. U/S 10/27/23: uterus normal, endometrium 0.5cm, R ovary not visualized, L ovary normal, no free fluid U/S 12/26/23: endometrium 12mm, R ovary not visualized, LOC 3.1x2.0x3.0cm, small amount of free fluid U/S 02/06/24- adenomyosis, endometrium 5.5mm, no polyps or fibroids, R ovary surgically absent, L ovary normal, no free fluid Reviewed U/S results- adenomyosis. She is adamant she would like ovary removed. Discussed starting BCPs to prevent cyst formation. LMP 10- admits to severe cramping with menses and heavy flow for 4-5 days. C/o pain after IC. She is very adamant she wants surgery to correct problem. She is 100% positive she does desire any more children. She had surgery 05/22/23- lap with lysis of pelvic adhesions, R oophorectomy and bilateral salpingectomies. Discussed hysterectomy vs L oophorectomy and HRT options. Due to severity of pain and adenomyosis she would like to proceed with hysterectomy. She will return for EMB when she is ready to proceed with hysterectomy. Entered by Lluvia Mccarty LPN acting as scribe for Dr. Anthony Lanier. Signature: Lluvia Mccarty LPN The documentation recorded by the scribe accurately reflects the service(s) I personally performed and the decisions I made. Signature: Anthony Lanier DO Assessment & Plan documented in this encounterSoutheast Missouri [id number] Evaluation note* Diagnosis Onset Date Resolution Status Admit Date Abdominal pain acute January 282023 2:43pm UTI (urinary tract infection) acute January 28 2:43pm GERD (gastroesophageal reflux disease) noneactive January 28 2:43pm Diarrhea acute April 23, 2024 9:40am Hematemesis acute March 9:40am Vomiting inactive April 23, 2024 9:40am [facility] Work Phone: 1(974) 925-972011-14-2024 History of Present illness Narrative* Anthony Lanier DO - 01/10/2024 12:00 PM EST Images from the original note were not included. Subjective Tracie Samuels is a 33 y.o. female Chief Complaint Patient presents with Gynecologic Exam Pt presents for cyst. patient stated she was seen @ the ER ([facility]). She was advised by the ER Doc to call our office [facility] to get seen, to possibly get cyst removed as he feels that's where her pain is coming from. Patient stated she started her Menses on 1110 and lasted one day. Started bc that same day her period started. Admits to nausea and vomiting. Left side pain. Pain is constant and going to her lower back area. Denies pain/burning with urinating. History of Present Illness Current Outpatient Medications: ketorolac (Toradol) 10 MG tablet, Take 10 mg by mouth every 6 (six) hours if needed for mild pain or moderate pain, Disp: , Rfl: ondansetron ODT (Zofran-ODT) 4 MG disintegrating tablet, Take 4 mg by mouth every 8 (eight) hours if needed for nausea or vomiting, Disp: , Rfl: albuterol (2.5 MG/3ML) 0.083% nebulizer solution, Take 2.5 mg by nebulization as needed., Disp: , Rfl: albuterol HFA 90 mcg/act inhaler, Inhale 2 puffs if needed, Disp: , Rfl: cetirizine (ZyrTEC) 10 MG chewable tablet, Chew Daily., Disp: , Rfl: norgestimate-ethinyl estradiol (Sprintec 28) 0.25-35 MG-MCG tablet, Take 1 tablet by mouth Daily Continuous active pills only, Disp: 112 tablet, Rfl: 4 oxyCODONE-acetaminophen (Percocet) 5-325 MG tablet, TAKE 1 TABLET BY MOUTH EVERY 6 HOURS NEEDED FOR PAIN FOR 3 DAYS, Disp: , Rfl: tiZANidine (Zanaflex) 4 MG tablet, Three times daily, Disp: , Rfl: Past Medical History: Diagnosis [...] documented in treatment Objective Visit Vitals BP 138/80 Wt 215 lb LMP 12/10/2023 (Exact Date) [...] 1. Pelvic pain in female R10.2 2. Left ovarian cyst N83.202 3. Menometrorrhagia N92.1 4. Dysmenorrhea N94.6 5. Dyspareunia, female N94.10 She was originally scheduled to return in January for repeat U/S and re- evaluate symptoms but her pain is persistent and she has gone back to [facility] due to severity of pain. Revisited U/S results. U/S 10/27/23: uterus normal, endometrium 0.5cm, R ovary not visualized, L ovary normal, no free fluid U/S 12/26/23: endometrium 12mm, R ovary not visualized, LOC 3.1x2.0x3.0cm, small amount of free fluid She is adamant she would like ovary removed. Discussed starting BCPs to prevent cyst formation. LMP10/14- admits to severe cramping with menses and heavy flow for 4-5 days. C/o pain after IC. She isvery adamant she wants surgery to correct problem. She is 100% positive she does desire any more children. She had surgery 05/22/23- lap with lysis of pelvic adhesions, R oophorectomy and bilateral teo pingectomies. Discussed hysterectomy vs L oophorectomy and HRT options. Will plan U/S in office to rule out adenomyosis- she will return after U/S to discuss results and decide on surgery. Entered by Lluvia Mccarty LPN acting as scribe for Dr. Anthony Lanier. Signature: Lluvia Mccarty LPN The documentation recorded by the scribe accurately reflects the service(s) I personally performed and the decisions I made. Signature: Anthony Lanier DO Assessment & Plan documented in this encounterSoutheast Missouri [id number] History of Present illness Narrative* Anthony Lanier DO - 01/02/2024 8:45 AM EST Images from the original note were not included. Subjective Tracie Samuels is a 33 y.o. female Chief Complaint Patient presents with Gynecologic Exam Pt presents for left ovary cyst. Patient states she went to [facility] as well as [facility] in [place] both telling her nothing was wrong. Patient states she was in too much pain and went to [place] ER and that's when she found out [...] hard time walking, sleeping. She went to [place] and was advised no cause found for pain. She then went to [place] and was dx with LOC. She states she has been in severe pain for 3 months. She is adamant she would like cyst removed. Discussed starting m edication to resolve cyst. LMP 1014- admits to [...] resolves and also help with dysmenorrhea and menorrhagia.Will schedule repeat U/S in 8 weeks and start Sprintec continuous pills now. Entered by Lluvia Mccarty LPN acting as scribe for Dr. Anthony Lanier. Signature: Lluvia Mccarty LPN The documentation recorded by the scribe accurately reflects the service(s) I personally performed and the decisions I made. Signature: Anthony Lanier DO Assessment & Plan documented in this [facility]11-01-2024 Telephone encounter Note* Telephone Encounter - Carey Steve - 12/28/2023 9:44 AM EDT Patient called stating she was seen at [facility] this past Sunday. The patient said that they had found a cyst on the left ovary. She is in a lot of pain. The Er gave her 500 mg of citromloxicin, nausea pills and tramadol. The paitent was told she had a bacteria infection as well. She would like the soonest apt with . [facility] [place] [id number] Miscellaneous Notes* Telephone Encounter - Carey Steve - 12/28/2023 9:44 AM EDT Patient called stating she was seen at [facility] this past Sunday. The patient said that they had found a cyst on the left ovary. She is in a lot of pain. The Er gave her 500 mg of citromloxicin, nausea pills and tramadol. The paitent was told she had a bacteria infection as well. She would like the soonest apt with . documented in this [facility]08-31-2024 Hospital Discharge instructions* Discharge Instructions* Sera Turner MD - 10/27/2023 2:55 PM EDT If given narcotics (opiates) during this Emergency Department visit, please do not drink, drive or operate any machinery for at least 4 - 6 hours. Avoid eating any spicy food, milk type products or drinks that have caffeine in it. Take all medications as prescribed. For pain use ibuprofen (Motrin) or acetaminophen (Tylenol), unless prescribed medications that have acetaminophen in it. You can take over the counter acetaminophen tablets (1 - 2tablets of the 500-mg strength every 6 hours) or ibuprofen tablets (2 tablets every 4 hours). PLEASE RETURN TO THE EMERGENCY DEPARTMENT IMMEDIATELY for worsening symptoms, or if you develop anyconcerning symptoms such as: high fever not relieved by acetaminophen (Tylenol) and/or ibuprofen (Motrin), chills, shortness of breath, chest pain, persistent nausea and/or vomiting, numbness, weakness or tingling in the arms or legs or change in color of the extremities, changes in mental status, persistent headache, blurry vision. Return within 8 - 12 hours if you have any of the following: worsening of pain in your abdomen, no food sounds good to you, you continue to vomit, pain goes to your back, have pain in the abdomen when going over a bump in the car or when you jump up and down, develop vaginal bleeding or discharge, inability to urinate, unable to follow up with your physician, or other any other care or concern. documented in [facility] Hospital Discharge instructions Patient Education 09/03/2023 22:12:36 Constipation, Adult, Xjip-zw-Xktp Constipation, Adult Constipation is when a person [...] high in fat and sugar, such as: ?Tajik fries. ?Hamburgers. ?Cookies. ?Candy. ?Soda. Drink enough fluid to keep your pee (urine) pale yellow. General instructions Exercise regularly or as told by your doctor. Try to do 150 minutes of exercise each week. Go to the restroom when you feel like you need to poop. Do not hold it in. Take vuqi-qmd-pwrzsks and prescription medicines only as told by [...] keep your pee (urine) pale yellow. Take jldq-hoh-beoujza and prescription medicines only as told by your doctor. These include any fiber supplements. This information is not intended to replace advice given to you by your health care provider. Make sure you discuss any questions you have with your health care provider. Document Revised: 12/31/2019 Document Reviewed: 12/31/2019 [employer] Learn Patient Education 2022 [employer]. Follow Up Care 09/03/2023 20:40:38 With:Yanick Bolivar Address: [address] [place] [address]- When:09/06/2023 21:57:30 With:KATLIN FERNANDEZ Address: [address] [place] [id number] [facility] (1) When:09/06/2023 21:56:58 Comments:Take the Flomax once [...] ED for any new or worsening symptoms. [facility]07-08-2024 NoteED Patient Education Note Gastroenterology Constipation, Adult Constipation [...] in fat and sugar, such as: ? Tajik fries. ? Hamburgers. ? Cookies. ? Candy. ? Soda. ? Drink enough fluid to keep your pee (urine) pale yellow. General instructions ? Exercise regularly or as told by your doctor. Try to do 150 minutes of exercise each week. ? Go to the restroom when you feel like you need to poop. Do not hold it in. ? Take crxv-qry-khxzdcd and prescription medicines only as told by your doctor. These include any fiber supplements. ? When you poop: ? Do deep breathing while relaxing your lower belly (abdomen). ? Relax your pelvic floor. The pelvic floor is a group of muscles that support the rectum, bladder,and intestines (as well as the uterus in [...] your pee (urine) pale yellow. ? Take fkmq-tqb-flsprnl and prescription medicines only as told by your doctor. These include any fiber supplements. This information is not intended to replace advice given to you by your health care provider. Make sure you discuss any questions you have with your health care provider. Document Revised: 12/31/2019 Document Reviewed: 12/31/2019 [employer] Learn Patient Education ? 2022 [employer].[facility] 09-03-2023 Evaluation + Plan noteExtracted from: Title:ED Note Author:Jorge Oliva DO Date [...] with Cult Rflx XR Abdomen 1 View [facility]07-02-2024 Hospital Discharge instructions Patient Education 08/27/2023 [...] told by your health care provider. Take ergr-oxh-besjspx and prescription medicines only as told by [...] provider. Document Revised: 04/25/2021 Document Reviewed: 04/25/2021 [employer] Learn Patient Education 2022 [employer]. Follow Up Care 08/27/2023 19:05:02 With:KATLIN FERNANDEZ Address: [address] [place] [address] [facility] (1) When:08/30/2023 Comments:Call Dr for diagnosis based follow up [facility]07-01-2024 NoteED Patient Education Note Orthopedics Flank [...] by your health care provider. ? Take emdh-dxq-xdzylsk and prescription medicines only as told by [...] provider. Document Revised: 04/25/2021 Document Reviewed: 04/25/2021 [employer] Learn Patient Education ? 2022 [employer].[facility] 08-26-2023 Evaluation + Plan noteExtracted from: Title:ED Note Author:Maikol POWER, Jax Palafox te:6/30/24 Migraine headache (G43.909: Migraine, unspecified, not intractable, [...] date 08/26/23 9:29:00 EDT, 08/26/23 9:29:00 EDT [facility]06-30-2024 Hospital Discharge instructions Patient Education 08/26/2023 [...] Follow these instructions at home: Medicines Take rxxp-rtv-eyyuwhb and prescription medicines only as told by [...] for Headache and Migraine Patients (CHAMP): headachemigraine.org [employer]: americanmigrainefoundation.org National Headache Foundation: headaches.org [...] provider. Document Revised: 03/31/2020 Document Reviewed: 03/31/2020 [employer] Learn Patient Education 2022 [employer]. Follow Up Care 08/26/2023 09:12:23 With:KATLIN FERNANDEZ Address: [address] [place], [place] [id number]- [facility] (1) When:08/29/2023 11:03:51 [facility]06-30-2024 NoteED Patient Education Note Neurology Chronic [...] these instructions at home: Medicines ? Take erfv-ufo-wququnp and prescription medicines only as told by [...] For example, write d (more content not included)...[facility]02-09-2024 Hospital Discharge instructions Additional Instructions Ice to sore areas Take the ketorolac every 6 hours for pain take with food You can still take jaxu-xjs-tieccag Tylenol every 4 hours Take tizanidine 3 times a day as needed May apply 1-2 lidocaine patches over sorest areas daily Follow-up with your family doctor Return to the ER for worsening pain additional injuries or any other concerns [facility] Work Phone: 1(687) 868-913712-01-2023 Hospital Discharge instructions Patient Education 01/26/2023 17:23:16 [...] to strengthen the arm. General instructions Take wjxb-ibw-kbkdvea and prescription medicines only as told by [...] provider. Document Revised: 10/28/2021 Document Reviewed: 10/28/2021 [employer] Learn Patient Education 2022 [employer]. Follow Up Care 01/26/2023 16:23:01 With:KATLIN FERNANDEZ Address: [place], [place] Business (1) When:01/29/2023 16:50:01 [facility]12-01-2023 Evaluation + Plan noteExtracted from: Title:ED Note Author:Jax Lassiter PA-C te:01/26/23 Right shoulder pain (M25.511 : Pain in right shoulder) Orders: acetaminophen-oxycodone, 1 tab(s), Tab, Oral, Once, Stop date 01/26/23 17:13:00 EST, STAT, Start date 01/26/23 17:13:00 EST ketorolac, 60 mg = 2 mL, Injection, IntraMuscular, Once, Stop date 01/26/23 16:43:00 EST, STAT, Start date 01/26/23 16:43:00 EST, 01/26/23 16:43:00 EST [facility]11-26-2023 Hospital Discharge instructions Patient Education 01/21/2023 16:21:41 Shoulder Pain, Hkpe-ur-Brgd Shoulder Pain Many things can cause shoulder [...] to strengthen the arm. General instructions Take deig-war-gatzlje and prescription medicines only as told by [...] provider. Document Revised: 10/28/2021 Document Reviewed: 10/28/2021 Actively Learn Patient Education 2022 [employer]. Follow Up Care 01/21/2023 13:25:00 With:Abraham LEE, AKASH Crain Address: [address] [place] [address] When:01/24/2023 [facility]09-15-2023 Evaluation note* Encounter Date Diagnosis Assessment Notes Treatment Notes Treatment Clinical Notes Oct, Asthma exacerbation (ICD-10 - J45.901) Oct, Asthma (ICD-10 - J45.909) [facility] Other 07-01-2023 Hospital Discharge instructions Patient Education [...] water added (diluted fruit juice). Eat bland, sggr-ae-cczxlz foods in small amounts as you are able. These foods include bananas, applesauce, rice, lean meats, toast, and crackers. Avoid fluids that contain a lot of sugar or caffeine, such as energy drinks, sports drinks, and soda. Avoid alcohol. Avoid spicy or fatty foods. General instructions Take mqtv-fuu-npsuegd and prescription medicines only as told by your health care provider. Drink enough fluid to keep your urine pale yellow. Wash your hands often using soap and water for at least 20 seconds. If soap and water are not available, use hand tipple tender. Make sure that everyone in your household [...] eating and drinking to prevent dehydration. Take xvdi-sge-wgicixo and prescription medicines only as told by [...] provider. Document Revised: 08/19/2021 Document Reviewed: 08/19/2021 [employer] Learn Patient Education 2022 [employer]. Follow Up Care 08/25/2022 17:16:58 With:KATLIN FERNANDEZ Address: [place], [place] Business (1) When:08/28/2022 21:41:55 [facility]06-30-2023 Evaluation + Plan noteExtracted from: Title:ED [...] 20 tab(s), Refills(s) 0, Pharmacy: [facility] #[id number], 149, cm, 08/25/22 17:36:00 EDT, Height/Length Dosing, [...] line, # 6 EA, Refills(s) 0, Pharmacy: [facility] #[id number], 149, cm, 08/25/22 17:36:00 EDT, Height/Length Dosing, 70, kg, 08/25/22 17:36:00 EDT, Weight Dosing Future Scheduled Tests Radiology* XR Hand 3+ Views Left 10/24/21 [facility]06-14-2023 Evaluation note* Encounter Date Diagnosis Assessment Notes Treatment Notes Treatment Clinical Notes Jul, Depression with anxiety (ICD-10 - F41.8) [facility] Other 05-08-2023 Evaluation note* Encounter Date Diagnosis [...] as noted in HPI for orthopedic concerns. [facility] Other 05-03-2023 Hospital Discharge instructions Patient Education [...] sitting or lying down. General instructions Take pdwn-xaj-vwnynwn and prescription medicines only as told by [...] provider. Document Revised: 01/02/2020 Document Reviewed: 01/02/2020 Actively Learn Patient Education 2022 [employer]. Follow Up Care 06/28/2022 17:33:35 With:KATLIN FERNANDEZ Address: [place], [place] [facility] (1) When:07/01/2022 19:16:17 Comments:Call the office of [...] you develop any new or worsening symptoms. [facility]04-27-2023 Hospital Discharge instructions Patient Education 06/22/2022 15:58:39 Crutch Use, Adult, Uant-kb-Ehmc Crutch Use, Adult Crutches are used to [...] you. Keep your weight over the hand grease press helper. 3.Bring the good leg forward to meet the crutches or to land a little bit ahead of them. 4.Repeat. Going up steps If there is no handrail: 1.Walk up to steps and put weight on hand grease press helper to step up. 2.Step up with your [...] provider. Document Revised: 09/03/2019 Document Reviewed: 09/03/2019 Actively Learn Patient Education 2022 [employer]. 06/22/2022 15:58:39 Contusion, Dosq-xo-Xyrk Contusion A contusion is a deep bruise. [...] sitting or lying down. General instructions Take kblf-iqw-gfnycbo and prescription medicines only as told by [...] is also called RICE. Youmay be given rpny-iwm-ulssgtm medicines for pain. Contact a doctor if [...] provider. Document Revised: 12/08/2021 Document Reviewed: 12/08/2021 Elsevier Patient Education 2022 [employer] Follow Up Care 06/22/2022 11:39:29 With:KATLIN FERNANDEZ Address: [place] Business (1) When:06/25/2022 15:58:10 only if needed [facility]04-27-2023 Evaluation + Plan noteExtracted from: Title:ED [...] q12hr, # 14 tab(s), Refills(s) 0, Pharmacy: [facility] 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 Care coord Marry will reach out to patient regarding starting pill pack to help. May, Seizure disorder (ICD-10 - G40.909) Patient states she only takes her oxtellar when she feels a seizure coming on. She is aware this is not the correct way to take it [facility] Other 03-07-2023 Hospital Discharge instructions Patient Education [...] risk for lung collapse and pneumonia. Medicines. Lbnt-kcf-yoixvps or prescription medicines may be given to control pain. Injection of a numbing medicine around the nerve near your injury (nerve block). Follow these instructions at home: Medicines Take viwm-iiu-eeauxlf and prescription medicines only as told by [...] as fried or sweet foods. ?Take an pnvb-bei-yhtdomh or prescription medicine for constipation. Managing pain, [...] 11/07/2001 Document Revised: 03/13/2018 Document Reviewed: 03/13/2018 Actively Learn Patient Education 2020 [employer]. Follow Up Care 05/02/2022 11:08:23 With:KATLIN FERNANDEZ Address: [place], [place] Business (1) When:05/05/2022 12:11:05 [facility]03-07-2023 Evaluation + Plan noteExtracted from: Title:ED [...] Radiology* XR Hand 3+ Views Left 10/24/21 [facility]02-14-2023 Evaluation note* Encounter Date Diagnosis Assessment Notes Treatment Notes Treatment Clinical Notes Mar, Depression with anxiety (ICD-10 - F41.8) Patient was hospitalized for 1 week in [place], she was started on zoloft and trazodone. She feels these are helping and would like to continue. She declined their recommendation to see psychiatrist for follow up, is not seeing counselor, declines referral. Will cont zoloft and see back in 3 months. 14 Mar, 2022 Acute bronchitis (ICD-10 - J20.9) Mar, Sore [...] in recent past. will cont to monitor. [facility] 01-13-2023 Evaluation + Plan noteExtracted from: [...] Radiology* XR Hand 3+ Views Left 10/24/21 [facility]11-30-2022 Evaluation + Plan noteExtracted from: Title:ED [...] day(s), # 10 tab(s), Refills(s) 0, Pharmacy: [facility] #[id number], 150, cm, 01/25/22 0:07:00 EST, Height/Length Dosing, 96, kg, 01/25/22 0:07:00 EST, Weight Dosing promethazine, 12.5 mg = 0.5 mL, Injection, IV Push, Once, Stop date 01/25/22 0:51:00 EST, STAT, Start date 01/25/22 0:51:00 EST, 01/25/22 0:51:00 EST promethazine, 25 mg = 1 tab(s), Oral, q6hr, PRN as needed for nausea/vomiting, # 12 tab(s), Refills(s) 0, Pharmacy: [facility] #[id number], 150, cm, 01/25/22 0:07:00 EST, Height/Length Dosing, [...] Radiology* XR Hand 3+ Views Left 10/24/21 [facility]11-30-2022 Hospital Discharge instructions Patient Education 01/25/2022 [...] water added (diluted fruit juice). Eat bland, gigs-mx-wujyrh foods in small amounts as you are able. These foods include bananas, applesauce, rice, lean meats, toast, and crackers. Avoid fluids that contain a lot of sugar or caffeine, such as energy drinks, sports drinks, and soda. Avoid alcohol. Avoid spicy or fatty foods. General instructions Take avrg-fog-covpyng and prescription medicines only as told by your health care provider. Drink enough fluid to keep your urine pale yellow. Wash your hands often using soap and water. If soap and water are not available, use hand tipple tender. Make sure that all people in your [...] eating and drinking to prevent dehydration. Take yltz-nrp-lywaimp and prescription medicines only as told by [...] 02/12/2006 Document Revised: 06/06/2019 Document Reviewed: 07/23/2018 [employer] Patient Education 2020 [employer]. 01/25/2022 02:47:12 Asthma Attack Asthma Attack Acute [...] smoke. Air pollutants such as dust, household supervisor wound, hair sprays, aerosol sprays, paint fumes, strong [...] Follow these instructions at home: Medicines Take gkeo-eju-cxchvza and prescription medicines only as told by your health care provider. Keep your medicines up-to-date and available. If you are more than 24 weeks and you are prescribed any new medicines, tell your risk control manager about those medicines. If you were prescribed [...] 05/30/2007 Document Revised: 06/03/2019 Document Reviewed: 03/16/2017 [employer] Learn Patient Education 2019 [employer]. Follow Up Care 01/25/2022 00:01:17 With:KATLIN FERNANDEZ Address: [address] [facility] (1) When:01/28/2022 Comments:Return to the emergency room if your vomiting recurs, shortness of breath recurs or any new symptoms. [facility]11-14-2022 Hospital Discharge instructions Patient Education 01/09/2022 [...] height. This can be done either in [place] or metric measurements. Note that charts are available to help you find your BMI quickly and easily without having to do these calculations yourself. To calculate your BMI in [place] measurements, your health care provider will: [...] medical problems. BMI can be measured using Tu[place] measurements or metric measurements. To interpret your [...] 10/24/2004 Document Revised: 01/25/2018 Document Reviewed: 12/26/2017 [employer] Patient Education 2020 [employer]. 01/09/2022 19:06:01 Sinusitis, Adult Sinusitis, Adult Sinusitis [...] at home: Medicines Take, use, or apply pzjr-qau-xwvjchy and prescription medicines only as told by [...] and water are not available, use hand tipple tender. Do not smoke. Avoid being around people [...] 02/12/2006 Document Revised: 07/15/2018 Document Reviewed: 07/15/2018 [employer] Patient Education 2020 [employer]. Follow Up Care 01/09/2022 16:53:22 With:KATLIN FERNANDEZ DO Address: [place], [place] When: Unknown [facility] 11-02-2022 Hospital Discharge instructions Patient [...] told by your health care provider. Take ttkb-wgg-elovxjp and prescription medicines only as told by [...] 04/05/2006 Document Revised: 01/25/2018 Document Reviewed: 04/27/2017 [employer] Patient Education [employer]. Follow Up Care 12/27/2021 20:30:57 With:KATLIN FERNANDEZ Address: [place], [place] Business (1) When:Within 3 Day(s) [facility]11-01-2022 Evaluation + Plan noteExtracted from: Title:ED Note Author:Curt Yanes DO Date :12/27/21 Flank pain (R10.9: Unspecifi ed abdominal pain) Orders: lidocaine topical, 1 patch(es), Patch, TransDermal, Once, Stop date 12/27/21 23:25:00 EDT, STAT, Start date 12/27/21 23:25:00 EDT lidocaine topical, 1 patch(es), Topical, Daily, 7 patch(es), Refill(s) 0, apply 12 hours on and 12 hours off daily, [id number], 150, cm, 12/27/21 20:34:00 EDT, Height/Length Dosing, [...] Radiology* XR Hand 3+ Views Left 10/24/21 [facility]10-06-2022 Evaluation note* Encounter Date Diagnosis Assessment Notes Treatment Notes Treatment Clinical Notes Nov, Dysuria (ICD-10 - R30.0) Nov, UTI (urinary tract infection) (ICD-10 - N39.0) Increase water intake. Will call with culture results. Nov, Insomnia (ICD-10 - G47.00) Reviewed proper sleep habits/schedule. [facility] Other 09-13-2022 Evaluation + Plan noteExtracted from: [...] Radiology* XR Hand 3+ Views Left 10/24/21 [facility]09-13-2022 Hospital Discharge instructions Patient Education 11/08/2021 [...] Treatment for this condition includes: Antibiotic medicine. Qsop-php-nbyyxnd medicines to treat discomfort. Drinking enough water [...] Follow these instructions at home: Medicines Take puwu-sut-pcuttou and prescription medicines only as told by [...] 11/22/2005 Document Revised: 01/30/2019 Document Reviewed: 08/22/2018 [employer] Learn Patient Education 2019 [employer]. Follow Up Care 11/08/2021 06:44:01 With:KATLIN FERNANDEZ Address: [place] [employer] [facility] When:11/11/2021 10:07:12 [facility]08-29-2022 Hospital Discharge instructions Patient Education 10/24/2021 [...] discomfort: Managing pain, stiffness, and swelling Take cwjk-mau-jhxxyjl and prescription medicines only as told by [...] 03/10/2016 Document Revised: 11/08/2018 Document Reviewed: 11/08/2018 [employer] Learn Patient Education 2020 [employer]. Follow Up Care 10/24/2021 18:59:06 With:Roya Rosario Address: [address] [place] [id number] Business (1) When:10/27/2021 21:03:45 With:KATLIN PORTERERS Address: [place], [place] Business (1) When:Within 3 Day(s) [facility]08-29-2022 Hospital Discharge instructions Patient Education 10/24/2021 [...] height. This can be done either in [place] ([place] or metric measurements. Note that charts are available to help you find your BMI quickly and easily without having to do these calculations yourself. To calculate your BMI in [place] ([place] measurements, your health care provider will: [...] medical problems. BMI can be measured using Tuvaluan measurements or metric measurements. To interpret your [...] 10/24/2004 Document Revised: 01/25/2018 Document Reviewed: 12/26/2017 Act[employer] Learn Patient Education 2020 [employer]. 10/24/2021 18:39:22 Hand Pain Hand Pain Many [...] discomfort: Managing pain, stiffness, and swelling Take utkk-tcy-tydvjbd and prescription medicines only as told by [...] 03/10/2016 Document Revised: 11/08/2018 Document Reviewed: 11/08/2018 [employer] Learn Patient Education 2020 [employer] Follow Up Care 10/24/2021 18:06:06 With:KATLIN FERNANDEZ DO Address: [place], [place] When: Unknown [facility] 08-29-2022 Evaluation + Plan noteExtracted [...] Radiology* XR Hand 3+ Views Left 10/24/21 [facility]08-29-2022 Evaluation + Plan note Future Scheduled Tests Radiology* XR Hand 3+ Views Left 10/24/21 [facility]07-26-2022 Evaluation + Plan noteExtracted from: Title:ED Note Author:Jax Lassiter PA-C te:09/20/21 Fall (W19.XXXA: Unspecified fall, initial encounter) Finger sprain (S63.619A: Unspecified sprain of unspecified finger, initial encounter) Orders: Finger Splint Application XR Hand 3+ Views Left Future Appointments Appointment Date:09/21/2021 09:30:00 AM Scheduled Provider:Brayden POPE MD Location:[facility] App[facility] Type:[facility] Follow Up Future Scheduled Tests Laboratory* Fecal WBC Lactoferrin 06/15/21 * Giardia lamblia, Direct Detection EIA 06/15/21 * O & P Exam, Routine 06/15/21 * Clostridium difficile by PCR 06/15/21 * Enteric Panel by PCR 06/15/21 [facility]07-26-2022 Hospital Discharge instructions Patient Education 09/20/2021 [...] are sitting or lying down. Medicines Take tdyl-eyi-uyqywyk and prescription medicines only as told by [...] 03/22/2005 Document Revised: 01/25/2018 Document Reviewed: 05/04/2017 Actively Learn Patient Education 2020 [employer]. Follow Up Care 09/20/2021 09:04:52 With:KATLIN FERNANDEZ Address: [place], [place] Business (1) When:09/23/2021 10:02:19 [facility]07-19-2022 Evaluation + Plan noteExtracted from: Title:ED Note Author:Robin LEE Kanu Date:08/26 11/17 Carpal tunnel syndrome, karia jessicaal (G56.03: Carpal tunnel syndrome, bilateral upper limbs) [...] Date:09/21/2021 09:30:00 AM Scheduled Provider:Brayden POPE MD Location:[facility] App[facility] Type:[facility] Follow Up Future Scheduled Tests Laboratory* Fecal WBC Lactoferrin 06/15/21 * Giardia lamblia, Direct Detection EIA 06/15/21 * O & P Exam, Routine 06/15/21 * Clostridium difficile by PCR 06/15/21 * Enteric Panel by PCR 06/15/21 [facility]07-19-2022 Hospital Discharge instructions Follow Up Care 09/13/2021 10:02:01 With:Roya Rosario Address: [address] [place] [id number]- Business (1) When:09/16/2021 10:53:07 With:Lars Maldonado Address: [facility] [address] [place] [address]- 0 Business (1) When:09/16/2021 10:53:03 [facility]05-28-2022 Hospital Discharge instructions Patient Education 07/22/2021 [...] water added (diluted fruit juice). Eat bland, biom-pk-wgdbak foods in small amounts as you are able. These foods include bananas, applesauce, rice, lean meats, toast, and crackers. Avoid fluids that contain a lot of sugar or caffeine, such as energy drinks, sports drinks, and soda. Avoid alcohol. Avoid spicy or fatty foods. General instructions Take zsjb-qdt-ovyewpu and prescription medicines only as told by your health care provider. Drink enough fluid to keep your urine pale yellow. Wash your hands often using soap and water. If soap and water are not available, use hand tipple tender. Make sure that all people in your [...] eating and drinking to prevent dehydration. Take gnqy-dgc-lkhwzzp and prescription medicines only as told by [...] 02/12/2006 Document Revised: 06/06/2019 Document Reviewed: 07/23/2018 Actively Learn Patient Education 2020 [employer]. Follow Up Care 07/22/2021 20:11:40 With:KATLIN FERNANDEZ Address: [place], [place] Business (1) When:Within 3 Day(s) [facility]05-27-2022 Evaluation + Plan noteExtracted from: Title:ED Note Author:Curt Yanes DO Date :07/22/21 Nausea and vomiting (R11.2: Nausea with vomiting, unspecified) Orders: Al hydroxide/Mg hydroxide/simethicone, 30 mL, Susp-Oral, Oral, Once, Stop date 07/22/21 22:22:00 EDT, STAT, Start date 07/22/21 22:22:00 EDT atropine/hyoscyamine/PB/scopolamine, 10 mL, Elixir, Oral, Once, Stop date 07/22/21 22:22:00 EDT, STAT, Start date 07/22/21 22:22:00 EDT famotidine, 20 mg = 1 tab(s), Oral, BID, # 60 tab(s), Refills(s) 0, Pharmacy: [facility], 150, cm, 07/22/21 20:23:00 EDT, Height/Length Dosing, 70, kg, 07/22/21 20:23:00 EDT, Weight Dosing lidocaine topical, 200 mg, 10 mL, Soln-Oral, Oral, Once, Stop date 07/22/21 22:22:00 EDT, STAT, Start date 07/22/21 22:22:00 EDT promethazine, 12.5 mg = 1 supp, Rectal, q8hr, # 6 EA, Refills(s) 0, Pharmacy: [facility], 150, cm, 07/22/21 20:23:00 EDT, Height/Length Dosing, 70, kg, 07/22/21 20:23:00 EDT, Weight Dosing promethazine, 25 mg = 1 supp, Supp, Rectal, Once, Stop date 07/22/21 21:10:00 EDT, STAT, Start date 07/22/21 21:10:00 EDT, 07/22/21 21:10:00 EDT Future Appointments Appointment Date:09/21/2021 09:30:00 AM Scheduled Provider:Brayden POPE MD Location:[facility] App[facility] Type:[facility] Follow Up Future Scheduled Tests Laboratory* Fecal WBC Lactoferrin 06/15/21 * Giardia lamblia, Direct Detection EIA 06/15/21 * O & P Exam, Routine 06/15/21 * Clostridium difficile by PCR 06/15/21 * Enteric Panel by PCR 06/15/21 [facility]05-26-2022 Evaluation + Plan noteExtracted from: Title:ED Note Author:Danette Marcial PA-C Date :07/21/21 1. Strep throat (J02.0: Stre ptococcal pharyngitis) Ordered: clindamycin, 300 mg = 1 cap(s), Oral, q8hr, X 10 day(s), # 30 cap(s), Refills(s) 0, [facility]: [facility], 150, cm, 07/20/21 23:23:00 EDT, Height/Length [...] Date:09/21/2021 09:30:00 AM Scheduled Provider:Brayden POPE MD Location:[facility] App[facility] Type:[facility] Follow Up Future Scheduled Tests Laboratory* Fecal WBC Lactoferrin 06/15/21 * Giardia lamblia, Direct Detection EIA 06/15/21 * O & P Exam, Routine 06/15/21 * Clostridium difficile by PCR 06/15/21 * Enteric Panel by PCR 06/15/21 [facility]05-26-2022 Hospital Discharge instructions Patient Education 07/21/2021 [...] Follow these instructions at home: Medicines Take jnzi-pmc-scttcci and prescription medicines only as told by [...] 02/09/2001 Document Revised: 05/02/2019 Document Reviewed: 05/02/2019 Actively Learn Patient Education 2020 [employer]. Follow Up Care 07/20/2021 22:26:00 With:KATLIN FERNANDEZ DO Address: [place], [place] When:07/24/2021 [facility]04-20-2022 Hospital Discharge instructions Patient Education 06/15/2021 [...] medicines. These include steroids, antibiotics, and some bnev-ysh-nldckkm medicines, such as aspirin or ibuprofen. Having [...] Follow these instructions at home: Medicines Take jrdx-uoj-ztqiwcg and prescription medicines only as told by [...] 02/06/2002 Document Revised: 07/02/2018 Document Reviewed: 07/02/2018 Actively Learn Patient Education 2020 [employer]. Follow Up Care 06/14/2021 12:44:31 With:TOSHIA BENTON, LORAINE Owen, [facility] Address: [address] [place] [address] When:3 months Comments:Elevated liver enzyme. [facility] 04-20-2022 Evaluation + Plan note Future Scheduled Tests Laboratory* Fecal WBC Lactoferrin 06/15/21 * Giardia lamblia, Direct Detection EIA 06/15/21 * O & P Exam, Routine 06/15/21 * Clostridium difficile by PCR 06/15/21 * Enteric Panel by PCR 06/15/21 [facility]04-20-2022 Evaluation + Plan note Future Scheduled Tests Laboratory* Fecal WBC Lactoferrin 06/15/21 * Giardia lamblia, Direct Detection EIA 06/15/21 * O & P Exam, Routine 06/15/21 * Clostridium difficile by PCR 06/15/21 * Enteric Panel by PCR 06/15/21 [facility] 04-20-2022 Evaluation + Plan note Future Scheduled Tests Laboratory* Fecal WBC Lactoferrin 06/15/21 * Giardia lamblia, Direct Detection EIA 06/15/21 * O & P Exam, Routine 06/15/21 * Clostridium difficile by PCR 06/15/21 * Enteric Panel by PCR 06/15/21 Radiology* XR Hand 3+ Views Left 10/24/21 [facility] 04-20-2022 Evaluation note* Encounter Date [...] the office if symptoms do not resolve. [facility] Other 01-05-2022 Evaluation note* Encounter Date Diagnosis Assessment Notes Treatment Notes Treatment Clinical Notes Feb, Cough (ICD-10 - R05.9) [facility] Other 09-29-2021 Evaluation note* Encounter Date Diagnosis [...] Asthma remains well controlled on current regimen. [facility] Other 08-17-2021 Evaluation note* Encounter Date Diagnosis Assessment Notes Treatment Notes Treatment Clinical Notes Sep, Carpal tunnel syndrome (ICD-10 - G56.00) Rx given for cock up wrist splints to wear at night. Advised if not improving over next 2-4 W and would send to ortho for possible injections. [facility] Other Evaluation + Plan note Future Appointments Appointment Date:06/15/2021 12:20:00 PM Scheduled Provider:Diandra Rahman CNP Location:[facility] App[facility]ment Type:[facility] Follow Up [facility] Evaluation + Plan note Future Appointments Appointment Date:06/28/2021 11:00:00 AM Scheduled Provider: Location:[facility] Appointment Type:Surgery PAT COVID Testing Future Scheduled Tests Laboratory* Fecal WBC Lactoferrin 06/15/21 * Giardia lamblia, Direct Detection EIA 06/15/21 * O & P Exam, Routine 06/15/21 * Clostridium difficile by PCR 06/15/21 * Enteric Panel by PCR 06/15/21 Radiology* US Abdomen Complete 06/15/21 [facility] evaluation noteNo InformationNort [employer] Other evaluation noteNo assessment information available [facility] Work Phone: evaluation note* Diagnosis Radicular pain of right upper extremity- Primary Acute pain of right shoulder documented in this encounter [facility]* Diagnosis Pelvic pain in female Unspecified symptom associated with female genital organs Menometrorrhagia Excessive or frequent menstruation Dysmenorrhea Dyspareunia, female Left ovarian cyst Other and unspecified ovarian cyst documented in this encounter [facility]* Diagnosis Pelvic pain in female Unspecified symptom associated with female genital organs Left ovarian cyst Other and unspecified ovarian cyst Menometrorrhagia Excessive or frequent menstruation Dysmenorrhea Dyspareunia, female Screening for malignant neoplasm of cervix Screening for malignant neoplasm of the cervix Screening for HPV (human papillomavirus) Special screening examination for human papillomavirus (HPV) documented in this encounter [facility] Healthcare[facility] note* Diagnosis Pelvic pain in female Unspecified symptom associated with female genital organs Left ovarian cyst Other and unspecified ovarian cyst Menometrorrhagia Excessive or frequent menstruation Dysmenorrhea Adenomyosis Endometriosis of uterus documented in this encounter [facility]* Diagnosis Left flank pain- Primary Abdominal pain, unspecified site documented in this encounter [facility] Author Olga Fernandez [facility] Note Date/Time May 22, 2024 10: 13am [facility] [address] [place] [address] Gastroenterology H&P Signed Patient: Tracie Samuels MR#: [id number] : 1990 Acct:[id number] Age/Sex: 34 / F Adm Date: 5 Loc: Room: Type: [facility] Attending Dr: Olga Fernandez DO Copies to: DO [place] DO~ Date of Service: 05/22/2024 HISTORY & PHYSICAL: Patient's history with special attention to the cardiovascular, pulmonary systems and the current problem was reviewed with the patient immediately prior to the procedure. Present medications and doses reviewed in the EMR. Allergies and pertinent laboratory tests were also reviewedat this time in the EMR. The physical examination, as below, was then performed. Indication, assessment and HPI: 34-year-old female who presents for EGD and colonoscopy for nausea, vomiting, hematemesis, history of peptic ulcer disease, diarrhea, abdominal pain. Last EGD in 2017 and last colonoscopy 5 years ago. Family history of GI malignancy? Gastric cancer in her maternal grandmother PHYSICAL EXAMINATION General appearance: cooperative, NAD Skin: No jaundice, no rash or lesions Head: NCAT Eyes: Anicteric Neck: Supple Lungs: Normal respiratory effort, no use of accessory muscles Abdomen: Soft, nondistended Neuro: No focal deficits, Ox3. REVIEW OF SYSTEMS Constitutional: Denies malaise, fevers Cardiovascular: Denies chest pain, palpitations Respiratory: Denies shortness of breath, wheezing Gastrointestinal: As per HPI Genitourinary: Denies dysuria, polyuria Musculoskeletal: Denies joint swelling, joint stiffness Neurological: Denies confusion, numbness, tingling Endocrine: Denies fatigue Written informed consent obtained from the patient. Risks (including but not limited to perforation, infection, bloating, bleeding, need for emergent surgeryand loss of life), benefits and alternatives explained and questions answered. The patient verbalized understanding. Based on history patient is an appropriate candidate for the procedure. Olga Fernandez DO Present medication and doses reviewed in the EMR Documented By: Olga Fernandez DO 05/22/24 1012 Signed By: <Electronically signed by Olga Fernandez DO> 05/22/[address] [facility] Work Phone: Hisdszl general Narrative - Reported* Type Description Date Medical History Ectopic Medical History asthma Medical History abdominal adhesions Medical History chronic stomach pain Medical History ADHD Medical History Bi-polar Surgical History expl lap, salpingectomy for rt ectopic Surgical History GALLBLADDER Surgical History TONSILLECTOMY Hospitalization History 2008 Hospitalization History SEE ABOVE Hospitalization History asthma, bronchitis 16 Hospitalization History asthma, bronchitis [facility] Other Hisxp[facility] general Narrative - ReportedNort [employer] Other Hisvkck general Narrative - Reported* Type Description Date Medical History Ectopic Medical History asthma Medical History abdominal adhesions Medical History chronic stomach pain Medical History ADHD Medical History Bi-polar Medical History Seizures Surgical History expl lap, salpingectomy for rt ectopic Surgical History GALLBLADDER Surgical History TONSILLECTOMY Hospitalization History 2008 Hospitalization History SEE ABOVE Hospitalization History asthma, bronchitis Hospitalization History asthma, bronchitis [facility] Other Hisywik general Narrative - Reported* Type Description Date [...] bronchitis Hospitalization History Psyciatric-depression, s uicidal 03/17/22 [facility] Other Hospital course Narrative No data available for this section [facility] Hospital Discharge instructions No data available for this section [facility] Hospital Discharge instructions Additional Instructions Ice to sore areas Rest ice elevate your ankle Wear the Aircast for support stability Take the ketorolac every 6 hours for pain You can take the tizanidine muscle relaxer 3 times a day for pain Follow-up with family doctor for recheck Return to the ER for worsening pain additional injuries or any other concerns [facility] Work Phone: Hospital Discharge instructions Additional Instructions Follow up with your primary care doctor and OB-PRODUCT SUPPORT CONSULTANT Return to the ED if you develop worsening symptoms [facility]: Hospital Discharge instructions Additional Instructions [...] 2 weeks after your surgery. Please call [phone] from 9 A.M. to 4 P.M. for an appointment. [ ][facility] Work Phone: Hospital Discharge instructions Additional Instructions Follow-up with your primary care doctor Return to ED if develop worsening symptoms or [facility]St[facility] Work Phone: Hospital Discharge instructions Additional Instructions Take Bactrim as prescribed for your Kidney infection. Increase your intake of fluids and rest. Take Zofran as prescribed for nausea vomiting. Follow-up with PCP for recheck next few days.[facility] Work Phone: Hospital Discharge instructions Additional Instructions Take ciprofloxacin as prescribed for your kidney infection. Follow-up with your PCP for recheck in the next few days. Take Motrin [facility]ylenol [facility] Work Phone: Hospital Discharge instructions Additional Instructions DISCHARGE INSTRUCTIONS FOR UPPER ENDOSCOPY WHAT TO EXPECT: - You may feel full, gassy or cramping after your procedure. In some cases, this may be from a few hours to a day. Walking may help relieve the discomfort. - Your throat may feel sore today from the scope that the doctor passed through your throat to visualize your stomach. Take a throat lozenge or suck on ice to ease the discomfort. - You may notice some streaks of blood in your sputum if the doctor has taken a biopsy. - You should begin to recover from anesthesia within 1 hour of the procedure, however may feel groggy for the next 24 hours. DO's AND DON'Ts: - Call your doctor right away if you have a hard abdomen, severe pain, vomiting or if you cough up large amounts of blood. - Call your doctor if you develop any rashes, hives or difficulty breathing. - If you take 81 mg aspirin for your heart it is safe to resume this medication. - If you take other blood thinner medications your doctor will instruct you when these can safely be resumed. - Do NOT drive for 24 hours. - Do NOT operate machinery such as power tools, Kaptan mowers, snow blowers, sewing machines, etc. for 24 hours. - Avoid alcoholic beverages and drugs for allergies, nerves, or sleep. - Do NOT stay alone. Do NOT leave your child unattended. - Do NOT make important personal or business decisions or sign any legal documents. - Eat solid foods and drink liquids in smaller amounts than usual until normal appetite returns. If you should experience an upset stomach, liquids high in sugar content (soda, Link-Aid, non-acid juices) are recommended. - Do NOT smoke. - Do take it easy today. You need not stay in bed, but avoid strenuous activities such as jogging or working out. DISCHARGE INSTRUCTIONS FOR COLONOSCOPY WHAT TO EXPECT: - You may feel full, gassy or cramping after your procedure. In some cases, this may be from a few hours to a day. Walking may help relieve the discomfort. - If you have polyp(s) removed you may note some minor bloody discharge after your first bowel movements. - You should begin to recover from anesthesia within 1 hour of the procedure, however may feel groggy for the next 24 hours. DO's AND DON'Ts: - Call your doctor right away if you have a hard abdomen, sever pain, are passing lots of bright red blood or clots. - Call your doctor if you develop any rashes, hives or difficulty breathing. - Let your doctor know if you have not had a bowel movement by 3 days after your procedure. - If you take 81 mg aspirin for your heart it is safe to resume this medication. - If you take other blood thinner medications your doctor will instruct you when these can safely be resumed. - Do NOT drive for 24 hours. - Do NOT operate machinery such as power tools, lawn mowers, snow blowers, sewing machines, etc. for 24 hours. - Avoid alcoholic beverages and drugs for allergies, nerves, or sleep. - Do NOT stay alone. Do NOT leave your child unattended. - Do NOT make important personal or business decisions or sign any legal documents. - Eat solid foods and drink liquids in smaller amounts than usual until normal appetite returns. If you should experience an upset stomach, liquids high in sugar content (soda, Link-Aid, non-acid juices) are recommended. - You can resume normal activities tomorrow. FOLLOW UP & RECOMMENDATIONS: -Please call the office and make a follow up appointment to see me in 3-4 months if you do not have an appointment scheduled. -Notify the doctor if you have any problems. -Repeat colonoscopy at 43 years for screening. -Follow up with PCP. - Office number [phone]. [facility] Work Phone: Progress note No data available for this section [facility] NarrativeER f/u [facility], med [place]ills, [place] [address] [facility] Other Discharge Instructions * Instructions* Harvey Palacio [...] with your primary care physician and/or your PATIENT ACCOUNTING REPRESENTATIVE with regards to your ovarian cyst. Zofran as needed for nausea. If you are unable to tolerate oral intake please return to the emergency department. * Attachments The following attachments cannot be sent through Care Everywhere. * Ovarian Cyst: Ruptured ([place]) * Pyelonephritis ([place]) documented in this encounter* Instructions* Demetri Judge, [...] through Care Everywhere. * Nausea and Vomiting ([place]) documented in this encounter* Instructions* Darrion Hooper, - 10/29/2019 THANK YOU!!! From [facility] Emergency Department On behalf of the Emergency Department staff at [facility]'s Emergency Department, I would like to thank you for giving [facility] the opportunity to address your health care needs and concerns. We hope that during your visit, our service was delivered in a professional and caring manner. Please keep [facility] in mind as we walk with you [...] needed for pain. You may also try [id number]-cspppsi lidocaine patch. * Attachments The following attachments cannot be sent through Care Everywhere. * RICE: General Info ([place]) documented in this encounter* Instructions* Phi Mcleod [...] sent through Care Everywhere. * Kidney Stone ([place]) documented in this encounter* Instructions* Dale Montoya MD - 03/10/2020 Return to this emergency room immediately if your symptoms persist, worsen or if new ones form. Make sure you follow-up with your primary care doctor within the next 1-2 business days. * Attachments The following attachments cannot be sent through Care Everywhere. * Abdominal Pain ([place]) documented in this encounter* Discharge Instr - Activity* Andrade Fleming DO - 01/12/2019 2:06 PM EST Dear Tracie Beltran Dionicio was excused from work secondary to hospitalization from 01/08/2019 through 01/12/2019. * Discharge Instr - Other Orders* Andrade Fleming DO - 01/12/2019 2:10 PM EST Emergency Department [place] [id number] [place] [id number] 01/12/2019 Patient: Tracie Samuels Date of : [...] Where can you learn more? Go to [email or web address] and sign in to your WakingApp account. Enter E877 in the Search Health Information box to learn more about Kidney Infection: Care Instructions. If you do not have an account, please click on the Sign Up Now link. Current as of: December 26, 2017 Content Version: [id number] [employer]. Care instructions adapted under license by [employer]. If youhave questions about a medical condition or this instruction, always ask your healthcare professional. [place] [place] disclaims any warranty or liability for your use of this information. * Attachments The following attachments cannot be sent through Care Everywhere. 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 Advance Directives and Living Will Power of Research Nurse Practitioner Latest Code Status on File Code Status Date Activated Date Inactivated Comments Full Code 12/19/2014 8:30 PM 12/22/2014 9:35 AM Latest Code Status on File Code Status Date Activated Date Inactivated Comments Full Code 01/09/2019 3:25 AM 01/12/2019 5:55 PM Full Code 12/19/2014 8:30 PM 12/22/2014 9:35 AM Documents on File Type Date Recorded Patient D[employer] Operator Expl anation ACP-Advance Directive ACP-Power of Research Nurse Practitioner Latest Code Status on File Code Status [...] Advance Directives No November 26, 2016 11:32am Date Activated Date Inactivated Comments 12/14/2019 3:31 AM 12/17/2019 3:42 PM Date Activated Date Inactivated Comments 01/09/2019 3:25 AM 01/12/2019 5:55 PM Date Activated Date Inactivated Comments 12/19/2014 8:30 PM 12/22/2014 9:35 AM Summary Purpose Family History No Family History Records Found Relationship Condition Age at Onset Recorded Date/T [...] Condition Age at Onset Recorded Date/T emilie aunt History of ovarian cancer Unknown aunt Heart disease Unknown aunt Family history of lung cancer Unknown father Diabetes mellitus Unknown Heart disease Unknown grandparent Diabetes mellitus Unknown grandparent Malignant neoplasm of stomach Unknown Diabetes mellitus Unknown sister History of ovarian cancer Unknown [...] later, she said it doesn't work. Physician information scientist notified via perfect serve. * Tracie Rausch RN - 12/17/2019 12:34 AM EDT Pt refusing telemetry, states that the telemetry patches are making her chest all itchy . Pt education provided. Internal med on-call resident notified via perfect serve. * Ryan Nielson MD - 12/16/2019 12:22 PM EDT [facility] Internal Medicine Teaching Residency Program Inpatient Daily Progress Note Patient: Tracie Samuels Date of : 1990 Acct: [id number] Room: 0440/0440-01 Admit date: 12/13/2019 Today's date: 12/16/19 Number [...] Continuous Infusions: lactated ringers 100 mL/hr at 12/15/196 PRN Medicationsalbuterol sulfate HFA, 2 puff, PRN [...] 238 213 199 BMP: Recent Labs 12/14/19 0521 12/15/19 0554 12/16/19 0616 NA 138 137 136 [...] 12/15/2019 2:31 PM EDT Physical Therapy Facility/Department: [address] ONC/MED SURG Initial Assessment NAME: Tracie [...] Assistance: Independent(no AD) Transfer Assistance: Independent Active Marine Steam Fitter: No Patient's Marine Steam Fitter Info: walk, bus Mode of Transportation: Car, Bus(pt reprots taking the bus to work and pts boss will drive pt home) 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 Son is being cared for by pts aunt. Pt visits son in [place] every other weekend Cognition Cognition Overall Cognitive [...] Standing - Dynamic: Fair;- Comments: Assessed at RW Plan Plan Times per week: 5-6x/week Current [...] Timed Code Treatment Minutes: 23 Minutes Suzan Loza This treatment/evaluation completed by signing SPT. Signing PT agrees with treatment and documentation. * Matthew Spivey MD - 12/15/2019 12:40 PM EDT [facility] Internal Medicine Teaching Residency Program Inpatient Daily Progress Note Patient: Tracie Samuels Date of : 1990 Acct: [id number] Room: [address] [place] [address] Admit date: 12/13/2019 Today's date: 12/15/19 Number [...] Matthew Spivey MD Internal Medicine Resident, PGY-2 [facility]; [place], [place] 12/15/2019, 1:41 PM Associated attestation - [...] Residency Program 12/15/2019, 2:13 PM * Rj Velazquez OT - 12/15/2019 12:00 PM EDT oOccupational [...] in reach. All needs met upon exit. CT SCAN TECHNICIAN in room upon exit. Performance deficits / Impairments: Decreased functional mobility ;Decreased endurance;Decreased ADL status;Decreased high-level IADLs Treatment Diagnosis: Pyelonephritis Prognosis: Good Decision Making: Low Complexity OT Education: OT Role;Plan of Care REQUIRES OT FOLLOW UP: Yes Safety Devices Safety Devices in place: Yes Type of devices: Call light within reach;Left in bed(CT SCAN TECHNICIAN in room upon exit) Restraints Initially in [...] Assistance: Independent(no AD) Transfer Assistance: Independent Active Marine Steam Fitter: No Patient's Marine Steam Fitter Info: walk, bus Mode of Transportation: Car, Bus(pt reprots taking the bus to work and pts boss will drive pt home) 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 Son is being cared for by pts aunt. Pt visits son in [place] every other weekend Objective Vision: Impaired(pt reports [...] Education & Training, Self-Care /ADL AM-PAC Score [facility] Inpatient Daily Activity Raw Score: 22 (12/15/191426) [facility] Inpatient ADL T-Scale Score : 47.1 (12/15/191426) ADL Inpatient [facility] 0-100% Score: 25.8 (12/15/191426) ADL Inpatient [facility] G-Code Modifier : CJ (12/15/191426) Goals Short [...] MD - 12/15/2019 8:42 AM EDT Xavi Al, Allie Kamara, Owen Kimball [facility] Progress Note Subjective: No acute events overnight. Currently on Rocephin. Urine culture 12/14/19 no growth. Patient Vitals for the past 24 hrs: BP Temp Temp src Pulse Resp SpO2 Weight 12/15/19 0615 219 lb 9.6 oz (99.6 kg) 12/14/19 1955 (!) 115/47 98.3 F (36.8 C) Oral [...] 96.8 PLT 261 238 213 Recent Labs 12/13/19211012/14/19 0521 12/15/19 0554 NA [...] EST CLINICAL PHARMACY NOTE: MEDS TO BEDS [facility] Select Patient?: No Total # [...] 1:54 PM EST [facility] - Progress Note admission date 01/08/2019 reason [...] till 01/14 Pain control Infection Control Recommendations [place] Precautions Antimicrobial Stewardship Recommendations Simplification of therapy [...] 01/08 Pelvic ultrasound is benign for the PRODUCT SUPPORT CONSULTANT tract Recent CT AP end of November [...] of relevant labs:01/12/2019 Labs: w 17 - 11 crp 6 [...] file Gets together: Not on file Attends orthodoxy service: Not on file Active member of [...] C.trachomatis N.gonorrhoeae DNA Collected: 01/08/192111 [facility] Reference range: NEGATIVE Value: POSITIVE: CHLAMYDIA TRACHOMATIS [...] Ward MD Office: Perfect serve / office [phone] * Gill Gaines RN - 01/12/2019 12:20 [...] Tolerated liquids and pudding and yoguart * Negro Bishop MD - 01/12/2019 5:13 AM EST [...] the HPI, PE and MDM. For Physician Entry Level Civil Engineer/ Nurse Practitioner cases/documentation I have personally evaluated [...] on Levoquin if able to take PO. NEGRO BISHOP MD Attending Physician Critical Decision Unit * Ignacio Ward MD - 01/11/2019 5:34 PM EST [facility] - Progress Note admission date 01/08/2019 reason [...] till 01/14 Pain control Infection Control Recommendations [place] Precautions Antimicrobial Stewardship Recommendations Simplification of therapy [...] 01/08 Pelvic ultrasound is benign for the PRODUCT SUPPORT CONSULTANT tract Recent CT AP end of November [...] file Gets together: Not on file Attends orthodoxy service: Not on file Active member of [...] C.trachomatis N.gonorrhoeae DNA Collected: 01/08/192111 [facility]ing [facility] Reference range: NEGATIVE Value: POSITIVE: CHLAMYDIA TRACHOMATIS [...] Ward MD Office: Perfect serve / office [phone] Gill Jamil RN - 01/11/2019 11:55 AM EST Pt threw up a little bite of egg like food with streak of red blood, pt states her stomach is burning and her throat is burning . Perfect served the resident Gill Jamil RN - 01/11/2019 10:16 AM EST Pt ate 4 bites of eggs and food like emesis perfect served resident above orders received zofran given pt informed of clear liquids Gill Jamil RN - 01/11/2019 8:49 AM EST Pt not nauseated tolerated liquid breakfast Dr ANTONIO rounded dc'd IV zofran and Morphine hopefully Dcthis afternoon * Negro Bishop MD - 01/11/2019 5:13 AM EST [...] the HPI, PE and MDM. For Physician Entry Level Civil Engineer/ Nurse Practitioner cases/documentation I have personally evaluated [...] is to discharge if OK with ID. NEGRO BISHOP MD Attending Physician Critical Decision Unit * Darrion Hooper DO - 01/11/2019 5:09 AM EST OBS/CDU RESIDENT NOTE Patients PCP is: Katlin Fernandez DO SUBJECTIVE No acute events overnight. Has been [...] accuracy, there may be errors in the pharmacy tech customer service that are not intended. * Misa Bach MD - 01/10/2019 5:39 PM EST [facility] - Infectious diseases evaluation admission date 01/08/2019 [...] control Follow with you Infection Control Recommendations [place] Precautions Antimicrobial Stewardship Recommendations Simplification of therapy [...] 01/08 Pelvic ultrasound is benign for the PRODUCT SUPPORT CONSULTANT tract Recent CT AP end of November [...] file Gets together: Not on file Attends orthodoxy service: Not on file Active member of [...] Bach MD Office: Perfect serve / office [phone] * Gill Gaines, ANGELINA - 01/10/2019 2:37 PM EST Pt requesting broth and chrystal mist pt informed she is NPO . Perfect Kitty chiang for clear liquid diet order * Gisselle [...] 5. Fluid Accumulation-No significant fluid accumulation, 6. Fruit Washer Strength-Not measured Nutrition Risk Level: Moderate Nutrient Needs: Estimated Daily Total Kcal: 30 kcal/wm=8547 kcal Estimated Daily Protein (g): 1.3g/kg=60 g protein Nutrition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
--- NOTE | 2024-12-04 11:12 | XR_ITS ---
The [address] [address] Patient Name: TRINY SAMUELS MRN: [id number] date: 1990 Sex: F Assigned Patient Location: ER Current Patient Location: ER Accession/Order Number: [id number] Exam Date: 12/04/2024 11:25 Report Date: 12/04/2024 12:06 At the request of: NATASHA GARCIA DO Procedure: XR ankle LT min 3V LEFT ANKLE - 3 views CLINICAL HISTORY: Fall 2 days ago. COMPARISON: None FINDINGS: Soft tissue swelling is noted. Ankle mortise appears intact. No acute bony process. XR/XR ankle LT min 3V IMPRESSION: NO ACUTE BONY PROCESS. Impression dictated by: Dale Huerta Jr. DCherylOCheryl 12/04/2024 12:06 PM Dictation Location: [place] [address] Electronically authenticated by: [id number] Y Date: 12/04/2024 12:06
[2024-12-04] MEDS: HYDROCODONE/ACET 5-325 MG TABLET 2 TAB PO (11:37)
[2024-12-04 11:41] VITALS: BP 118/78; PULSE 78; O2SAT 96
--- NOTE | 2024-12-04 18:37 | ED.GENADUL1 ---
HPI HPI - General Adult General Chief complaint: Dental/Oral Stated complaint: FACIAL SWELLING, ANKLE PAIN Time Seen by Provider: 12/04/24 10:30 Source: patient Mode of arrival: walk-in Limitations: no limitations History of Present Illness HPI narrative: Patient is a 34-year-old female presenting to the emergency department for evaluation of left ankle injury. Patient states that 3 days ago she tripped and fell into a hole . Since then, she has had worsening pain over the lateral aspect of the left ankle. Additionally, she think she may have chipped the left upper part of her tooth as her face/teeth have been painful and swollen. Otherwise, she denies any other injuries. She has been able to ambulate with a limp. She has been wearing an ankle brace. She denies hitting her head or losing consciousness. She is not on blood thinners. No prior surgeries to the lower extremity. Related Data Home Medications ?Medication ?Instructions ?Recorded ?Confirmed norgestimate 0.25 mg-ethinyl 1 tab PO DAILY 01/06/24 01/06/24 estradiol 0.035 mg tablet (Goshen-Linyah) ondansetron HCl 4 mg tablet 8 mg PO Q6H PRN nausea and vomiting 01/06/24 01/06/24 Previous Rx's ?Medication ?Instructions ?Recorded ciprofloxacin HCl 500 mg tablet 500 mg PO Q12H #14 tabs 12/26/23 ondansetron 4 mg disintegrating 4 mg PO Q6H PRN nausea and 12/26/23 tablet vomiting #12 tabs ketorolac 10 mg tablet 10 mg PO Q6H PRN pain 5 days #20 01/06/24 tabs oxycodone-acetaminophen 5 mg-325 1 tab PO Q8H PRN pain #9 tabs 01/06/24 mg tablet (Percocet) amoxicillin 500 mg capsule 500 mg PO Q8H 7 days #21 caps 12/04/24 oxycodone-acetaminophen 5 mg-325 1 tab PO Q8H PRN pain 3 days #7 12/04/24 mg tablet tabs Allergies Allergy/AdvReac Type Severity Reaction Status Date / Time No Known Drug Allergies Allergy Verified 12/04/24 10:29 Opioid HPI Opioid Management Most Recent Opioid Data: Last Pain Scale 10 Today, 11:37 Last MAR Pain Assessment Today, 11:37 Review of Systems ROS Status of ROS 10 or more systems reviewed and unremarkable except as noted in history and below [facility] Social History Little interest or pleasure in doing things: not at all Feeling down, depressed, or hopeless: not at all Exam Narrative Exam Narrative: CONSTITUTIONAL: Well-appearing, speaking with normal voice, answering questions and following commands appropriately SKIN: Was warm and dry, no abrasions or lacerations. EYES: Sclerae white. EARS, NOSE, THROAT: There are multiple missing and chipped teeth. In the left upper molar there is mild tenderness to percussion and multiple dental caries. There is no facial swelling. No lip swelling. No trismus. Moist oral mucosa. RESPIRATORY: Nonlabored respirations. CARDIOVASCULAR: Normal rate and regular rhythm. 2+ DP and PT pulses in the left foot GASTROINTESTINAL: Abdomen is nondistended. MUSCULOSKELETAL: There is tenderness to palpation over the left lateral malleoli. No significant soft tissue swelling. Limited range of motion with dorsi/plantarflexion secondary to pain. No tenderness at the knee joint. No tenderness about the foot. NEUROLOGIC: Patient is awake and alert. Good strength and sensation light touch in the left foot/ankle. Constitutional Vital Signs, click to edit/add: Last Vital Signs Temp 98.8 F 12/04/24 10:30 Pulse 78 12/04/24 11:41 Resp 18 12/04/24 11:41 BP 118/78 12/04/24 11:41 Pulse Ox 96 12/04/24 11:41 O2 Del Method Room Air 12/04/24 11:41 Course Vital Signs Vital signs: Vital Signs Temperature 98.8 F 12/04/24 10:30 Pulse Rate 79 12/04/24 10:30 Respiratory Rate 16 12/04/24 10:30 Blood Pressure 137/80 12/04/24 10:30 Pulse Oximetry 98 12/04/24 10:30 Oxygen Delivery Method Room Air 12/04/24 10:30 Temperature 98.8 F 12/04/24 10:30 Pulse Rate 78 12/04/24 11:41 Respiratory Rate 18 12/04/24 11:41 Blood Pressure 118/78 12/04/24 11:41 Pulse Oximetry 96 12/04/24 11:41 Oxygen Delivery Method Room Air 12/04/24 11:41 Medical Decision Making MDM Narrative Medical decision making narrative: Patient is a 34-year-old female presenting to the emergency department for evaluation of left ankle injury and left upper molar pain that began 3 days ago after she had a mechanical fall from a standing height. Vital signs arrival are within normal limits. She is afebrile and hemodynamically stable. Examination as noted above. Differential diagnose includes ankle sprain, fibular fracture, bernard-apical abscess, dental trauma. She was given oral [place] for pain. X-rays of the left ankle independently viewed interpreted by myself and radiology demonstrate no acute osseous abnormalities. I do believe the patient is stable for discharge. They were instructed to follow up with her dentist and her PCP for further care. She was placed in an ankle brace for support. Return precautions were given including any new or worsening symptoms. They were given a prescription for [place] and amoxicillin. Patient understands and agrees to the plan. FINAL IMPRESSION: #Acute left ankle sprain #Acute left upper molar pain, secondary to dental trauma versus dental infection DISPOSITION: Discharged home CONDITION: Good Imaging Data ankle xray: Attestation: I personally reviewed and interpreted this imaging study as follows: Radiologist's impression: ITS Impressions Ankle X-Ray 12/04/24 11:12 IMPRESSION: NO ACUTE BONY PROCESS. Impression dictated by: Carloz Jenkins Jr.OCheryl 12/04/2024 12:06 PM Dictation Location: [place] [address] Electronically authenticated by: [id number] Y Date: 12/04/2024 12:06 Discharge Plan Discharge Chief Complaint: Dental/Oral Clinical Impression: Ankle sprain Patient Disposition: Home, Self-Care Time of Disposition Decision: 12:13 Condition: Good Mode of Transportation: Private Vehicle Prescriptions / Home Meds: New oxycodone-acetaminophen 5-325 mg tablet 1 tab PO Q8H PRN (Reason: pain) 3 Days Qty: 7 0RF amoxicillin 500 mg capsule 500 mg PO Q8H 7 Days Qty: 21 0RF No Action ciprofloxacin HCl 500 mg tablet 500 mg PO Q12H Qty: 14 0RF ondansetron 4 mg tablet,disintegrating 4 mg PO Q6H PRN (Reason: nausea and vomiting) Qty: 12 0RF norgestimate-ethinyl estradiol [Goshen-Linyah] 0.25-35 mg-mcg tablet 1 tab PO DAILY ondansetron HCl 4 mg tablet 8 mg PO Q6H PRN (Reason: nausea and vomiting) oxycodone-acetaminophen [Percocet] 5-325 mg tablet 1 tab PO Q8H PRN (Reason: pain) Qty: 9 0RF ketorolac 10 mg tablet 10 mg PO Q6H PRN (Reason: pain) 5 Days Qty: 20 0RF Print Language: Icelandic Instructions: Ankle Sprain (ED) Referrals: Physician,Non-Staff, MD [Primary Care Provider] - 1 week Discharge Date/Time: 12/04/24 12:33
== END 2024-12-04 12:33 | disposition home or self-care (01) ==
PROVIDERS: Emergency Provider Student in an Organized Health Care Education/Training Program
DX: S93.402A Sprain of unspecified ligament of left ankle, initial encounter (principal); W01.0XXA Fall on same level from slipping, tripping and stumbling without subsequent striking against object, initial encounter; K08.89 Other specified disorders of teeth and supporting structures; K02.9 Dental caries, unspecified
CPT/HCPCS: 73610; 99283

== ENCOUNTER 2025-02-05 16:36 | Emergency (ER) | payer MEDICARE, MEDICAID, SELFPAY ==
[2025-02-05 17:28] VITALS: BP 131/100; PULSE 77; TEMP 37; O2SAT 98; BMI 42.0
--- NOTE | 2025-02-05 17:48 | XR_ITS ---
The [place] [id number] Patient Name: TRINY SAMUELS MRN: [facility]:[id number] date: 1990 Sex: F Assigned Patient Location: ED.MAIN Current Patient Location: ED.MAIN Accession/Order Number: [id number] Exam Date: 02/05/2025 18:30 Report Date: 02/05/2025 19:01 At the request of: FRANKLIN VANCE MD Procedure: XR lumbar spine 2-3V 2 views lumbar spine INDICATION: Fall COMPARISON: None FINDINGS: Lumbar vertebral heights and alignment preserved. Minimal disc space narrowing L5-S1. Mild facet arthropathy L5-S1. XR/XR lumbar spine 2-3V IMPRESSION: Mild lumbosacral degenerative changes. Negative for acute osseous abnormality identified. Impression dictated by: Giorgio Lucas M.D. 02/05/2025 7:01 PM Dictation Location: [place] [address] Electronically authenticated by: [id number] Y Date: 02/05/2025 19:01
--- NOTE | 2025-02-05 17:50 | ED_ITS ---
HPI HPI - General Adult General Chief complaint: Fall Stated complaint: FALL Time Seen by Provider: 02/05/25 17:45 Mode of arrival: walk-in Limitations: no limitations History of Present Illness HPI narrative: 34-year-old female presents for midline lower back pain. She slipped on ice and fell and landed on her lower back yesterday. Its been hurting since then. She did not sustain any other injuries, she did not hit her head. No dysuria or hematuria. The pain is moderate to severe. Related Data Previous Rx's ?Medication ?Instructions ?Recorded cephalexin 500 mg capsule 500 mg PO Q8H 7 days #21 cap s 02/05/25 ibuprofen 800 mg tablet 800 mg PO Q8H PRN pain #20 t abs 02/05/25 Allergies Allergy/AdvReac Type Severity Reaction Status Date / Time No Known Drug Allergies Allergy Verified 02/05/25 17:26 Opioid HPI Opioid Management Most Recent Opioid Data: Last Pain Scale 10 Today, 18:56 Last ED Pain Assessment Today, 18:56 Last MAR Pain Assessment Today, 18:11 Review of Systems ROS Narrative A ten point review of systems is negative except as noted above. PFSH PFSH Social History Little interest or pleasure in doing things: not at all Feeling down, depressed, or hopeless: not at all Exam Narrative Exam Narrative: Nurses note and vital signs reviewed General:The patient appears well and in no apparent distress.Patient is standing next to the cart. Skin:Warm, dry, no pallor noted.There is no rash noted. Head:Normocephalic, atraumatic Eye: Normal conjunctiva, no drainage Ears, Nose, Mouth, and Throat: oral mucosa is moist. Nares patent. Cardiovascular:Regular Rate and Rhythm, not tachycardic Respiratory:Patient is in no distress, no accessory muscle use, lungs are clear to auscultation, no wheezing, rales or rhonchi Back: There is tenderness present at the midline lower back. No abrasion or bruise present. Thoracic spine nontender GI: Soft and nontender Musculoskeletal: The knees are nontender Neurological:A&O, normal speech Psychiatric:Cooperative Constitutional Vital Signs, click to edit/add: Last Vital Signs Temp 98.6 F 02/05/25 17:28 Pulse 77 02/05/25 17:28 Resp 16 02/05/25 17:28 BP 131/100 H 02/05/25 17:28 Pulse Ox 98 02/05/25 17:28 O2 Del Method Room Air 02/05/25 17:28 Course Vital Signs Vital signs: Vital Signs Temperature 98.6 F 02/05/25 17:28 Pulse Rate 77 02/05/25 17:28 Respiratory Rate 16 02/05/25 17:28 Blood Pressure 131/100 H 02/05/25 17:28 Pulse Oximetry 98 02/05/25 17:28 Oxygen Delivery Method Room Air 02/05/25 17:28 Temperature 98.6 F 02/05/25 17:28 Pulse Rate 77 02/05/25 17:28 Respiratory Rate 16 02/05/25 17:28 Blood Pressure 131/100 H 02/05/25 17:28 Pulse Oximetry 98 02/05/25 17:28 Oxygen Delivery Method Room Air 02/05/25 17:28 Medical Decision Making MDM Narrative Medical decision making narrative: X-rays are negative. She has UTI and was prescribed Keflex and ibuprofen. Here she was given Tylenol 3 and Toradol. Treatment diagnosis and follow-up were discussed with the patient. Differential Diagnosis Differential Diagnosis: UTI, fracture, contusion Lab Data Lab results reviewed: Yes I reviewed the patient's lab results Labs: Lab Results 02/05/25 Range/Units 18:19 Urine Color Lt. yellow (YELLOW) Urine Clarity Cloudy A (CLEAR) Urine pH 6.0 (5.0-9.0) Ur Specific [place] >=1.030 A (1.005-1.025) Urine Protein Negative (NEG/TRACE) mg/dL Urine Glucose (UA) Negative (NEGATIVE) mg/dL Urine Ketones Negative (NEGATIVE) mg/dL Urine Occult Blood Moderate A (NEGATIVE) Urine Nitrite Negative (NEGATIVE) Urine Bilirubin Negative (NEGATIVE) Urine Urobilinogen 0.2 (0.2-1.0) EU/dL Ur Leukocyte Esterase Small A (NEGATIVE) Urine RBC 10-20 A (0-2) #/HPF Urine WBC 5-10 A (NONE SEEN) #/HPF Ur Squamous Epith Cells Many A (NONE/RARE) #/LPF Urine Crystals None seen (None Seen) #/HPF Urine Bacteria Large A (NONE SEEN) #/HPF Urine Casts None seen (NONE SEEN) #/LPF Urine Mucus Small A (NONE SEEN) Ur Culture Indicated? Yes-[facility] Imaging Data Lumbar x-rays: Radiologist's impression: ITS Impressions Lumbar Spine X-Ray 02/05/25 17:48 IMPRESSION: Mild lumbosacral degenerative changes. Negative for acute osseous abnormality identified. Impression dictated by: Giorgio Lucas M.D. 02/05/2025 7:01 PM Dictation Location: [place] [address] Electronically authenticated by: [id number] Y Date: 02/05/2025 19:01 Discharge Plan Discharge Chief Complaint: Fall Clinical Impression: Lumbar contusion, Urinary tract infection Patient Disposition: Home, Self-Care Time of Disposition Decision: 19:08 Condition: Good Mode of Transportation: Private Vehicle Prescriptions / Home Meds: New cephalexin 500 mg capsule 500 mg PO Q8H 7 Days Qty: 21 0RF ibuprofen 800 mg tablet 800 mg PO Q8H PRN (Reason: pain) Qty: 20 0RF Print Language: Belgian Instructions: Urinary Tract Infection in Women (ED), Contusion in Adults (ED) Referrals: Physician,Non-Staff, MD [Physician] - 1 week
--- OUTSIDE RECORDS SUMMARY | 2025-02-05 18:10 | XMS_ITS | CCD ---
Author Organization [facility] Care Team Providers Care Financial Systems Manager Name Role Phone Katlin Fernandez Primary Care Provider [phone] KATLIN FERNANDEZ Primary Care Unavailable DALE MONTOYA Attending Unavailable Katlin Fernandez Primary Care Provider KATLIN FERNANDEZ Primary Care Physician Aleena Ryder Unavailable Katlin Fernandez Unavailable Claudia Rowe Unavailable DO Katlin Fernandez Primary Care Provider DO Katlin Fernandez Attending Provider [phone] DO Katlin Fernandez Primary Care Provider GINA Medina Emergency Provider DO Katlin Fernandez Primary Care Provider [facility] Emergency Provider Katlin Fernandez MD Primary Care Provider DO Katlin Fernandez Primary Care Provider [phone] Idalmis [employer] Pleitez E Emergency Provider JANNET Myles Emergency Provider [phone] DO Tate Marcial Emergency Provider [phone] DO Anthony Huang Attending Provider [phone] Fernandez, DO Katlin B Primary Care Provider Idalmis, [facility]- Pricilla Nuha Emergency Provider [phone] DO Jason Benton Emergency Provider [phone] DO Carina Fernandezanne B Primary Care Provider MD Roya German Emergency Provider [phone] NO FAMILY, PHYSICIAN Primary Care Provider Unava ilable MD Kanu Brush Emergency Provider [phone] MAE COLIN Attending Unavailable KATLIN FERNANDEZ Primary Care Physician KATLIN FERNANDEZ Primary Care Unavailable Jass Meek. Attending Unavailable Juan Antonio Hooper Attending Unavailable FERNANDEZCARINA PADRONANNE Primary Care Unavailable FERNANDEZCARINA PADRONANNE Primary Care Unavailable Jass Meek Attending Unavailable CARINA FERNANDEZANNE Primary Care Unavailable Jorge Oliva Attending Unavailable DO Jorge Oliva Attending Unavailable FERNANDEZ, KATLIN Primary [...] Unavail able HILLS, KAYLEEN D Referring Unavailable DEPLIN TREVINO Attending Unavailable HILLS, KAYLEEN D Referring Unavailable WEYARIEL GREENE Attending Unavailable HILLS, KAYLEEN D Referring Unavailable HILLS, KAYLEEN D Attending Unavailable HILLS, KAYLEEN D Referring Unavailable HILLS, KAYLEEN D Referring Unavailable VISCI, ANTHONY A Attending Unavailable VISCI, ANTHONY A Referring Unavailable HILLS, KAYLEEN D Attending Unavailable HILLS, KAYLEEN D Referring Unavailable VISCI, ANTHONY A Attending Unavailable VISCI, ANTHONY A Referring Unavailable VISCI, ANTHONY A Attending Unavailable VISCI, ANTHONY Blanton Attending Unavailable VISCI, ANTHONY Blanton Attending Unavailable Carina Fernandez DOanne B Primary Care Provider [phone] Fernandez DO, Katlin B Primary Care Provider Ly DO, Olga L Attending Provider Fernandez, Katlin B Primary Care Unavailable Amaury [...] Flores N Admitting Unavailable TupaJason Admitting Unavailable Jason Benton Attending Unavailable Fernandez, Katlin B Primary Care Unavailable Fernandez, Katlin B Primary Care Unavailable Roya German Admitting Unavailable Roya German Attending Unavailable NO FAMILY, PHYSICIAN Primary Care Unavailable Kanu Brush Admitting Unavailable Kanu Brush Attending Unavailable Fernandez, Katlin B Primary Care Unavailable Amaury Galindo Admitting Unavailable Amaury Galindo Attending Unavailable Kanu Kelly Attending Unavailable FERNANDEZ, KATLIN Primary Care Unavailable FERNANDEZ, KATLIN Primary Care Unavailable Jorge Oliva Attending Unavailable FERNANDEZ, KATLIN Primary Care Unavailable Kanu Kelly Attending Unavailable Lois Lucas Attending Unavailable FERNANDEZ, [...] Care Unavailable FERNANDEZ, KATLIN Primary Care Unavailable Juan Antonio Hooper Attending Unavailable FERNANDEZ, KATLIN Primary Care Unavailable Amaury Galindo. Attending Unavailable Juan Antonio Hooper Attending Unavailable FERNANDEZ, KATLIN Primary Care Unavailable Amaury Galindo. Attending Unavailable FERNANDEZ, KATLIN Primary Care Unavailable FERNANDEZ, KATLIN Primary Care Unavailable Amaury Galindo Attending Unavailable Allergies Allergy ClassificationReported Allergen(s)Allergy TypeDate of OnsetReaction(s) Facility (20 sources)cyclobenzaprine; Translations: [cyclobenzaprine]Drug Allergy 90-58-9492Olizq, GI intoleranceHouse, [place] (9 sources)NaproxenDrug Hipqrqf80-87-0374[facility]- [place], [place] (20 sources)QUEtiapine; Translations: [quetiapine]Drug Gfhczwt73-07-6158 anaphylaxisHouse, [place] (20 sources)Valproate; Translations: [DIVALPROEX SODIUM]Drug Dbhvxux67-33-1376 SwellingHouse, [place] (2 sources)Acetaminophen / HYDROcodoneDrug Umqfrpg08-37-3562TcxtsjprSlrzr Health- [place], [place] (20 sources)Acetaminophen; Translations: [acetaminophen]Drug Dcsgrwt89-79-8541 Pharyngeal swelling (finding)[facility] Comment on above:Not able to take d/t GI Ulcer (20 sources)Acetaminophen / HYDROcodone; Translations: [acetaminophen-hydrocodone]Drug [facility]ergyB[facility] (20 sources)Amoxicillin; Translations: [amoxicillin]Drug Mzfysrk25-33-5434Lbjime swelling (finding)[facility] Other (20 sources)Cephalexin; Translations: [cephalexin]Drug Wjwnmnz71-83-4980czolr, [facility] Other (20 sources)Doxycycline; Translations: [doxycycline][facility]rug [facility] (20 sources)drospirenone / Ethinyl Estradiol; Translations: [drospirenone- ethinyl estradiol]Drug [facility] (20 sources)Egg; Translations: [Eggs]Drug [facility] (20 sources)Fish - dietary; Translations: [Fish]Drug [facility] (20 sources)Ketorolac; Translations: [ketorolac]Drug AllergyEruption of skin (disorder)[facility] (20 sources)predniSONE; Translations: [prednisone]Drug Lcregru42-89-0266eogvm (medrol ok)[facility] Other Comment on above:HivesHives (20 sources)Valproate; Translations: [divalproex sodium]Drug Allergyparrish medical centerxis [facility] Other (20 sources)Milk Products; Translations: [Milk Products]Drug allergyB[facility] (20 sources)casein allergenic extractDrug AllergyGainesville VA Medical Center [facility] Other (20 sources)Codeine / guaiFENesinDrug AllergyJohnson County Community Hospital [facility] Other (20 sources)cyclobenzaprine; Translations: [Flexeril]Drug [facility] (20 sources)gabapentinDrug Jsxvkip23-45-8920aogqbMercy Memorial Hospital (20 sources)Lactose; Translations: [lactose]Drug Lmpucic58-54-1108xigsveilKettering Health [facility]al [facility] Center (20 sources)shrimp allergenic extractDrug AllergyMagruder Hospital [facility] Other (20 sources)Bee StingDrug allergyGainesville VA Medical Center [facility] Other (18 sources)Caseins; Translations: [CASEIN]Drug Qddjjuz53-02-5783Iqdhizkd of Lip/Tongue/ThroatMemorial Health System (20 sources)HYDROcodone; Translations: [hydrocodone]Drug Etbdqoe16-44-9021 VomitingMemorial Health System (17 sources)Ibuprofen; Translations: [ibuprofen]Drug Fuedjyo80-54-8967Xoyvsdx ReactionMemorial Health SystemComment on above:Not able to take d/t GI Ulcer (17 sources)QUEtiapine; Translations: [quetiapine]Drug Lejwdid02-79-6834Kpeyszlv of Lip/Tongue/Throat, Swelling of Lip/Tongue/Throat, anaphylaxis, anaphylaxis [facility] (1 source)CaseinsDrug Uwdbyxk00-72-4316mfmpexixjijPkhnnvbdk [facility] (20 sources)Codeine; Translations: [codeine]Drug Aujiiwo00-33-5096luvnhia, Swelling of Lip/Tongue/ThroatMemorial Health System (20 sources)guaiFENesin; Translations: [guaifenesin]Drug Opjginy84-40-7309 itchingMemorial Health System (15 sources)Shrimp product; Translations: [shrimp]Allergy to hwxyfccmy98-08-8123 hivesMemorial Health System (15 sources)Valproate; Translations: [valproic acid]Drug Euoromv04-58-3932 anaphylaxisMemorial Health System (15 sources)bee venom protein (honey bee); Translations: [bee venom protein (honey bee)]Allergy to jzwzguvla87-57-5005vdqwtelkqxaFjwdyhitv [facility] (3 sources)Acetaminophen / CodeineDrug Hxdstvm64-01-5674OsuexFZGK Healthcare (12 sources)Penicillins; Translations: [PENICILLINS]Drug Byqsnkvjwxt04-06-8121 Other, GI intoleranceNOThree Rivers Healthcare (11 sources)Fish-Derived ProductsDrug Qtyrsdv47-65-0093NratdLKFG Healthcare (11 sources)Milk-Related CompoundsDrug Mzvzmfg26-34-1303Tpnrtjyn, OtherNOSD Healthcare (1 source)cyclobenzaprine; Translations: [CYCLOBENZAPRINE HCL]Drug Allergy 52-87-3511CobgmxnfkDoctors Hospital [facility] (1 source)Fish derivative; Translations: [FISH DERIVED]Propensity to adverse reactions to drug (disorder)37-69-6343BbzcypokmDoctors Hospital Repository (1 source)Milk; Translations: [MILK]Propensity to adverse reactions to food (disorder)58-44-5169MxjsmvblzDoctors Hospital Repository (10 sources)QUEtiapine; Translations: [SEROquel]Drug AllergyMagruder Hospital [facility] (8 sources)AcetaminophenDrug Mxhhxyr55-89-8942EZYA Healthcare (1 source)AcetaminophenDrug Hvisdtg81-75-3064MpvfpdzfmMemorial Health System Repository (1 source)AmoxicillinDrug Iscfspr28-31-1952VhavnepvtMemorial Health System Repository (1 source)CephalexinDrug Hswrbbr18-67-0332YtjmgeebqMemorial Health System Repository (1 source)cyclobenzaprineDrug Pxnfqyv98-93-2115LdbtgvdcoMemorial Health System Repository (1 source)gabapentinDrug Nkuwhhz31-34-1589SsuvllkytMemorial Health System Repository (1 source)predniSONEDrug Zdlvrey22-90-5040MxeeysnyjMemorial Health System Repository (1 source)ValproateDrug Xuzsusa54-10-8627HtbujleajMemorial Health System Repository Medications Current Medications MedicationDrug Class(es)DatesSig (Normalized)Sig (Original)Acetaminophen (20 sources)Start: 33-83-2757biqfvrposztco (TYLENOL) tablet 650 mgStart: 12-13-2019 End: 20-43-2672jsdphvgprbfwu (TYLENOL) tablet 1,000 mgStart: 10-29-2019 End: 65-18-7762exdwwmzjbfjba (TYLENOL) tablet 1,000 mgStart: 01-10-2019 acetaminophen (TYLENOL) tablet 650 mgStart: 07-10-2017 End: 41-03-1355terk 500-1000 mg by mouth three times daily as needed for pain Acetaminophen (Tylenol Extra Strength) 500 mg Tablet Discontinued 500 - 1000 MG PO Three times daily as needed for Pain July 10, 2017 12:00am July 17, 2017 9:[id number] 200 actuat albuterol 0.09 mg/actuat metered dose inhaler (20 sources)beta2-Adrenergic AgonistStart: 37-22-6301Rxnnqcmdx Sulfate 2.5 mg/0.5 mL solution for nebulization Active 2.5 MG INHALATION As Directed as ne eded for shortness of breath or wheezing May 22, 2023 12:00amStart: 56-88-9932Zwdraidzp Sulfate 90 mcg/actuation HFA aerosol inhaler Active 2 PUFF INHALATION As Directed as needed for shortness of breath or wheezing May 22, 2023 12:00amStart: 05-16-2023 End: 56-79-8312Esuiknpnw Sulfate 2.5 mg/0.5 mL solution for nebulization Discontinued 2.5 MG INHALATION every 6 to8 hours as needed for shortness of breath or wheezing May 16, 2023 12:00am May 22, 2023 11:54amStart: 78-06-0986rymt 2.5 mg by inhalation every six hoursalbuterol 0.083% Inh Claire 3 mL UD 2.5 mg = 3 mL, Inhalation, q6hr, # 25 EA, Refills(s) 0, Pharmacy: [id number], 150, cm, 12/24/20 11:53:00 EDT, Height/Length Dosing, 74, kg, 12/24/20 11:53:00 EDT, Weight Dosing Start Date: 12/24/20 Status: Ordered Quantity: 25.0 Unit: EA Repeat number: 1Start: 21-35-3735zqxk 2.5 mg by inhalation every six hoursalbuterol 0.083% Inh Claire 3 mL UD 2.5 mg = 3 mL, Inhalation, q6hr, # 25 EA, Refills(s) 0, Pharmacy: [id number], 150, cm, 12/24/20 11:53:00 EDT, Height/Length Dosing, 74, kg, 12/24/20 11:53:00 EDT, Weight Dosing Start Date: 12/24/20 Status: OrderedStart: 04-24-2019 End: 76-10-6724cmsl 1 puff(s) by inhalation every six hours as needed for wheezingAlbuterol Sulfate 90 mcg/actuation HFA aerosol inhaler Discontinued 2 PUFF INHALATION Q6H as neededfor shortness of breath or wheezing April 24, 2019 1:00am May 22, 2023 11:54amStart: 05-37-2028gvlzksgju sulfate HFA 108 (90 Base) MCG/ACT inhaler 2 puffStart: 01-09-20192.5 mg, Nebulization, EVERY 4 HOURS PRN, Shortness of Breath, Starting Suzan 01/09/19 at 0325Start: 10-27-2018 End: 84-25-6207nnvi 2.5 mg by inhalation every four to six hours as needed for wheezingAlbuterol Sulfate 2.5 mg /3 mL (0.083 %) solution for nebulization Discontinued 2.5 MG INHALATION EVERY 4-6 HOURS as needed for shortness of breath or wheezing October 27, 2018 12:00am May 22, 2023 11:51am dispense 2 to goStart: 09-29-2018 End: 80-01-1713Cytodnimu Sulfate (Ventolin Hfa) 90 mcg/actuation HFA aerosol inhaler Discontinued 2 INH INHALATIONEVERY 4-6 HOURS as needed for wheezing 6.7 September 29, 2018 12:00am May 22, 2023 11:52amStart: 89-32-1386knqg 2.5 mg by inhalation every six hoursalbuterol 0.083% Inh Claire 3 mL 2.5 mg, 3 mL, NEB, q6hr Shortness of breath or wheezing, Refill(s) 0 Start Date: 02/02/17 Status: Ordered Repeat number: 1Start: 56-31-8828aeoq 2.5 mg by inhalation every six hoursalbuterol 0.083% Inh Claire 3 mL 2.5 mg, 3 mL, NEB, q6hr Shortness of breath or wheezing, Refill(s) 0 Start Date: 02/02/17 Status: OrderedStart: 02-02-2017 take 2 puff(s) by inhalation four times dailyProAir HFA 90 mcg/inh inhalation aerosol 2 puff(s), Inhalation, QID Shortness of breath or wheezing, Refill(s) 0 Start Date: 02/02/17 Status: OrderedStart: 11-26-2016 End: 25-93-8203Karuirkuu Sulfate 2.5 mg /3 mL (0.083 %) Solution For Nebulization Discontinued 1 INH INHALATION Four times daily November 26, 2016 12:00am March 26, 2019 12:32amStart: 40-67-3120Ndozzjntk Sulfate (2.5 MG/3ML) 0.083% 3 ml Inhalation Three times a day for 30 days Apr, Active Start: 13-80-2543Jndsztdqy Sulfate (2.5 MG/3ML) 0.083% 3 ml Inhalation Three times a day for 30 days Apr, ActiveStart: 85-04-9652mzlsxvxyz (2.5 MG/3ML) 0.083% nebulizer solution Take 2.5 mg by nebulization as needed. Active albuterol HFA 90 mcg/act inhaler Inhale 2 puffs if needed Activealbuterol (PROVENTIL;VENTOLIN) 90 MCG/ACT inhaler Inhale 2 puffs into the lungs as needed. Activetake 2 puff(s) by inhalation every four hours as neededAlbuterol Sulfate HFA 2 puffs as needed Inhalation q4h PRN for 30 days Not-Takingtake 2 puff(s) by inhalation every four hours as neededAlbuterol Sulfate HFA 2 puffs as needed Inhalation q4h PRN for 30 days Activealbuterol sulfate HFA 108 (90 Base) MCG/ACT inhaler 2 puff (1 source)Start: puff, Inhalation, PRN, Shortness of Breath, Starting 12/14/19 at 2459Zdj7093-Cbi Wif-Yuzb-Foo-Asb-C (3 sources)Osmotic Laxative, Vitamin CStart: 62-53-4097mnmd 1 dose by mouth once in the ubblvenIlw9098-Bau Xvn-Qirh-Zbu-Asb-C (Plenvu) 140-9-5.2 gram powder in packet, sequential Active 140 ML PO Once 1 April 23, 2024 1:00am at 4:00 pm take first dose followed by 16 oz glass of liquid take second dose at 11:00 pm followed by a 16 oz glass of liquidStart: 05-52-3654bepu 1 dose by mouth once in the nifxgbhSbd8150-Dwi Fmb-Hzqe-Stj-Asb-C (Plenvu) 140-9-5.2 gram powder in packet, sequential Active 140 ML PO Once 1 April 23, 2024 12:00am at 4:00 pm take first dose followed by 16 oz glass of liquid take second dose at 11:00 pm followed by a 16 oz glass of liquidazithromycin 250 mg oral tablet (20 sources)Macrolide AntimicrobialStart: 43-75-7082Edmvcukqzryt 250 MG 2 tablets on the first day, then 1 tablet daily for 4 days Orally Once a day for 5 day(s) Mar, ActiveStart: 01-09-2022 End: 22-61-9555Drwpkovpm Z-Juan 250 mg oral tablet = 1 packet(s), Oral, As Directed, as directed on package labeling, X 5 day(s), # 6 tab(s), Refills(s) 0, [id number], 150, cm, 01/09/22 18:47:00 EST, Height/Length Dosing, 141, kg, 01/09/22 18:47:00 EST, Weight Dosing Start Date: 01/09/22 Stop Date: 01/14/22 Status: OrderedStart: 01-21-2018 End: 53-76-5045zurj 1 tablet by mouth once dailyAzithromycin (Zithromax) 250 mg tablet Discontinued 250 MG PO daily 4 January 21, 2018 1:00am February 04, 2018 12:19pm First dose given in EDBreo Ellipta 200-25 MCG/INH (20 sources)Start: 31-60-0057phdv 1 puff(s) by inhalation once dailyBreo Ellipta 200-25 MCG/INH 1 puff Inhalation Once a day for 30 days Sep, Not-Taking Start: 46-99-4756lmfp 1 puff(s) by inhalation once dailyBreo Ellipta 200-25 MCG/INH 1 puff Inhalation Once a day for 30 days Sep, ActivecefTRIAXone (ROCEPHIN) 2 g IVPB in D5W 50ml minibag (2 sources)Start: 05-86-0182ukvWDVNWpck (ROCEPHIN) 2 g IVPB in D5W 50ml minibag Start: 01-09-2019 End: 95-74-9662vvfLVOIUtuw (ROCEPHIN) 2 g IVPB in D5W 50ml minibagcephalexin 500 mg oral capsule (18 sources)Cephalosporin AntibacterialStart: 12-18-2019 End: 06-10-2452inqa 1 capsule by mouth four times dailycephALEXin (KEFLEX) 500 MG capsule Take 1 capsule by mouth 4 times daily for 10 days 40 capsule 0 12/28/2019 ActiveStart: 12-19-2018 End: 12-27-2802zhcj 1 capsule by mouth four times dailycephALEXin (KEFLEX) 500 MG capsule Take 1 capsule by mouth 4 times daily for 7 days 28 capsule 0 12/26/2018 ActiveStart: 03-01-2018 End: 37-05-6380wvkp 1 capsule by mouth four times dailyCephalexin (Keflex) 500 mg capsule Discontinued 500 MG PO Four times daily 40 March 01, 2018 1 :00am May 07, 2018 11:24pmcetirizine hydrochloride 10 mg chewable tablet (11 sources)Histamine-1 Receptor Antagonistcetirizine (ZyrTEC) 10 MG chewable tablet Chew Daily. Activeclindamycin 300 mg oral capsule (18 sources)Lincosamide AntibacterialStart: 07-21-2021 End: 41-00-6971pvfi 1 capsule by mouth every eight hoursclindamycin 300 mg oral cap 300 mg = 1 cap(s), Oral, q8hr, X 10 day(s), # 30 cap(s), Refills(s) 0, [facility], 150, cm, 07/20/21 23:23:00 EDT, Height/Length Dosing, 70, kg, 07/20/21 23:23:00 EDT, Weight Dosing Start Date: 07/21/21 Stop Date: 07/31/21 Status: OrderedStart: 03-26-2019 End: 91-16-6336pjfr 1 capsule by mouth four times dailyClindamycin Hcl 300 mg Capsule Discontinued 300 MG PO Four times daily 40 March 26, 2019 1:00am April 24, 2019 12:24pmdicyclomine hydrochloride 10 mg oral capsule (20 sources)AnticholinergicStart: 08-27-2023 End: 15-84-0092phih 1 capsule by mouth four times dailyBentyl 10 mg Cap 10 mg = 1 cap(s), Oral, QID, X 7 day(s), # 28 cap(s), Refills(s) 0, Pharmacy: [id number], 150, cm, 08/27/23 19:10:00 EDT, Height/Length Dosing, 95.7, kg, 08/27/23 19:10:00 EDT, Weight Dosing Start Date: 08/27/23 Stop Date: 09/03/23 Status: OrderedStart: 07-21-2023 End: 53-03-1413dflf 1 tablet by mouth twice dailyDicyclomine 20 mg Tablet Discontinued 20 MG PO Twice daily 2 July 21, 2023 12:00am September 20, 2023 12:46amStart: 51-21-2753ieio 2 capsules by mouth four times dailyBentyl 10 mg Cap 20 mg = 2 cap(s), Oral, QID, # 20 cap(s), Refills(s) 0, [facility], 149, cm, 04/06/21 9:58:00 EST, Height/Length Dosing, 85, kg, 04/06/21 9:58:00 EST, Weight Dosing Start Date: 04/06/21 Status: Ordered Quantity: 20.0 Unit: cap(s) Repeat number: 1Start: 07-19-2017 End: 27-53-0106xmug 1 tablet by mouth four times dailyDicyclomine 20 mg tablet Discontinued 20 MG PO Four times daily 120 30 July 19, 2017 12:00am August 17, 2017 12:00am August 18, 2017 12:02amdocusate sodium 100 mg oral capsule (1 source)Start: 41-92-1406wblstovf sodium (COLACE) capsule 100 mg0.4 ml enoxaparin sodium 100 mg/ml prefilled syringe (2 sources)Low Molecular Weight HeparinStart: 78-64-6452vfnome 40 mg by subcutaneous injection once daily40 mg, Subcutaneous, DAILY, First dose on 12/14/19 at 0900Start: 44-78-0956uwrrcu 40 mg by subcutaneous injection once daily40 mg, Subcutaneous, DAILY, First dose on Suzan 01/09/19 at [id number] 0.3 ml EPINEPHrine 1 mg/ml auto-injector (20 sources)alpha-Adrenergic Agonist, beta-Adrenergic Agonist, Catecholamine Start: 42-10-7535ArwWwl 2-Juan 0.3 MG/0.3ML as directed Injection as needed for anaphylactic reaction for 30 days Oct, Activeergocalciferol 1.25 mg oral capsule (5 sources)Provitamin D2 CompoundStart: 45-26-2908zgdh 1 capsule by mouth every weekvitamin D (ERGOCALCIFEROL) 1.25 MG (70576 UT) CAPS capsule Take 1 capsule by mouth once a week 8 capsule 12/22/2019 ActiveStart: 69-53-4101njpv 1 capsule by mouth every weekvitamin D (ERGOCALCIFEROL) 1.25 MG (50771 UT) CAPS capsule Take 1 capsule by mouth once a week 8 capsule 0 12/22/2019 ActiveStart: 12-15-2019 vitamin D (ERGOCALCIFEROL) capsule 50,000 Unitsethinyl estradiol 0.035 mg / norgestimate 0.25 mg oral tablet (7 sources)Progestin, EstrogenStart: 01-02-2024 End: 24-51-7627ndre 1 tablet by mouth once dailynorgestimate-ethinyl estradiol (Sprintec 28) 0.25-35 MG-MCG tablet Indications: Menometrorrhagia Take 1 tablet by mouth Daily Continuous active pills only 112 tablet 4 01/02/2024 01/01/2025 Activefamotidine 20 mg oral tablet (20 sources)Histamine-2 Receptor AntagonistStart: 12-15-2018 End: 95-89-6072hoad 1 tablet by mouth twice dailyPepcid 20 mg Tab 20 mg = 1 tab(s), Oral, BID, # 60 tab(s), Refills(s) 0, [facility], 150, cm, 07/22/21 20:23:00 EDT, Height/Length Dosing, 70, kg, 07/22/21 20:23:00 EDT, Weight Dosing Start Date: 07/22/21 Status: Ordered Quantity: 60.0 Unit: tab(s) Repeat number: 130 actuat fluticasone furoate 0.2 mg/actuat / vilanterol 0.025 mg/actuat dry powder inhaler (15 sources)Corticosteroid, beta2-Adrenergic AgonistStart: 51-37-2681icwn 1 puff(s) by inhalation once dailyBreo Ellipta 200-25 MCG/INH 1 puff Inhalation Once a day for 30 days Sep, ActiveStart: 66-95-5397Yogtvepqqbfs (20 sources)Nonsteroidal Anti-inflammatory DrugStart: 79-50-3920gsqqdtbnansr Refills(s) 0 Start Date: 02/14/19 Status: Ordered Repeat number: 1Start: 79-47-4641jvleojpmeodd Refills(s) 0 Start Date: 02/14/19 Status: Ordered ketorolac tromethamine 10 mg oral tablet (20 sources)Nonsteroidal Anti-inflammatory Drug, Cyclooxygenase InhibitorStart: 26-70-2763xgzc 1 tablet by mouth every six hours as needed for pain and pain ketorolac (Toradol) 10 MG tablet Take 10 mg by mouth every 6 (six) hours if needed for mild pain ormoderate pain 01/06/2024 ActiveStart: 44-06-639748 mg, IntraVENous, ONCE, 1 dose, On 10/27/23 at 1245Start: 11-06-2022 End: 82-64-3105ysua 1 tablet by mouth three times daily as needed for pain Ketorolac 10 mg tablet Discontinued 10 MG PO Three times daily as needed for pain 10 November 06, 2022 12:00am April 06, 2023 2:52pmStart: 03-10-2020 End: 83-03-3612xqzc 1 tablet by mouth every six hours as needed for pain Ketorolac 10 mg tablet Discontinued 10 MG PO Q6H as needed for pain April 06, 2023 1:00am May 22, 2023 11:53amStart: 57-31-6996aveogixxo (TORADOL) injection 15 mgStart: 12-13-2019 End: 94-65-6959cjhjikwqj (TORADOL) injection 30 mgStart: 01-14-2019 End: 99-83-7472rcdfaflim (TORADOL) injection 15 mgStart: 12-19-2018 End: 36-05-3598qyajgbidn (TORADOL) injection 15 mglevocetirizine dihydrochloride 5 mg oral tablet (20 sources)Histamine-1 Receptor AntagonistStart: 59-78-5644hflj 2 tablets by mouth every twenty-four hoursXyzal 5 MG 2 tablets Orally Once a day for 90 days Feb, Activelidocaine 0.04 mg/mg medicated patch (20 sources)Antiarrhythmic, Amide Local AnestheticStart: 10-27-2023 End: 58-22-6539vsigw 1 dose transdermal route once dailylidocaine 4 % external patch Place 1 patch onto the skin daily 30 patch 10/27/2023 11/26/2023 Active Start: 12-27-2021 End: 00-85-9325khtkemqbv Top 5% film Patch 1 patch(es), Topical, Daily, 7 patch(es), Refill(s) 0, apply 12 hours on and 12 hours off daily, [id number], 150, cm, 12/27/21 20:34:00 EDT, Height/Length Dosing, 75,kg, 12/27/21 20:34:00 EDT, Weight Dosing Start Date: 12/27/21 Status: Ordered Quantity: 7.0 Unit: patch(es) Repeat number: 1Start: 66-70-3342kxowgfcbv 4 % external patch 1 patchmeloxicam 15 mg oral tablet (20 sources)Nonsteroidal Anti-inflammatory DrugStart: 42-03-0747wnqq 1 tablet by mouth once dailymeloxicam 15 mg oral tablet 15 mg = 1 tab(s), Oral, Daily, # 30 tab(s), Refills(s) 0 Start Date: 09/13/21 Status: Ordered Quantity: 30.0 Unit: tab(s) Repeat number: 1metFORMIN hydrochloride 500 mg oral tablet (20 sources)BiguanideStart: 01-32-8523iucmmcjcg 500 mg oral tablet 500 mg = 1 tab(s), Oral, As Directed, Refills(s) 0 Start Date: 02/13/19 Status: Ordered Repeat number: 1METFORMIN HCL PO Take by mouth 0 Activemethocarbamol 750 mg oral tablet (1 source)Muscle RelaxantStart: 10-27-2023 End: 68-93-1927faks 1 tablet by mouth four times dailymethocarbamol (ROBAXIN- 750) 750 MG tablet Take 1 tablet by mouth 4 times daily for 10 days 40 tablet 10/27/2023 11/06/2023 ActivemethylPREDNISolone 4 mg oral tablet (8 sources)CorticosteroidStart: 35-89-3658Pusknx (Juan) 4 MG as directed Orally for 6 days 14 Mar, 2022 ActiveMiralax 3350 17 gram packet (5 sources)Start: 31-08-5500Bkwdgkd 3350 17 gram packet 17 gram, Oral, Daily, # 12 EA, Refills(s) 0 Start Date: 07/26/18 Status:Orderedmupirocin 0.02 mg/mg topical ointment (20 sources)RNA Synthetase Inhibitor AntibacterialStart: 60-80-9737zutpmufzb Top 2% Oint 1 arely, Topical, TID, 15 gram, Refill(s) 0 Start Date: 05/23/18 Status: OrderedQuantity: 15.0 Unit: g Repeat number: 1Start: 99-84-8001dufrjlebu Top 2% Oint 1 arely, Topical, TID, 15 gram, Refill(s) 0 Start Date: 05/23/18 Status: Orderednaproxen 500 mg oral tablet (20 sources)Nonsteroidal Anti-inflammatory DrugStart: 89-67-9024ralj 1 tablet by mouth every twelve hoursnaproxen 375 mg Tab 375 mg = 1 tab(s), Oral, q12hr, # 14 tab(s), Refills(s) 0, Pharmacy: [facility] #[id number], 149, cm, 06/22/22 11:45:00 EDT, Height/Length Dosing, 70, kg, 06/22/22 11:45:00 EDT, Weight Dosing Start Date: 06/22/22 Status: Ordered Quantity: 14.0 Unit: tab(s) Repeat number: 1Start: 03-26-2019 End: 00-26-7558zeut 1 tablet by mouth twice dailyNaprosyn 500 mg Tab 500 mg = 1 tab(s), Oral, BID, # 20 tab(s), Refills(s) 0, Pharmacy: [facility] #[id number], 149, cm, 06/28/22 17:51:00 EDT, Height/Length Dosing, 70, kg, 06/28/22 17:51:00 EDT, Weight Dosing Start Date: 06/28/22 Status: Ordered Quantity: 20.0 Unit: tab(s) Repeat number: 1Start: 07-21-2018 End: 79-84-6795nyei 1 tablet by mouth twice dailyNaproxen 500 mg tablet Discontinued 500 MG PO Twice daily August 19, 2018 12:00am September 29, 2018 7:03amStart: 07-01-2018 End: 37-65-7961xzdz 1 tablet by mouth every twelve hours at mealtimeNaproxen (Naprosyn) 500 mg Tablet Discontinued 500 MG PO Q12H July 01, 2018 12:00am August 19, 2018 9:41am administer with food or milkomeprazole 40 mg delayed release oral capsule (20 sources)Proton Pump InhibitorStart: 86-94-5352Nliqvnfqmb 40 MG 1 capsule 30 minutes before morning meal Orally each morning on empty stomach for 90 days Stop pantoprazole, start omeprazole June, ActiveStart: 11-03-2018 End: 39-98-9644jjmh 1 tablet by mouth once dailyOmeprazole Magnesium (Prilosec Otc) 20 mg tablet,delayed release (DR/EC) Discontinued 20 MG PO Daily November 03, 2018 12:00am December 15, 2018 9:52amStart: 06-05-2017 End: 79-10-5252lcpr 2 capsules by mouth twice dailyOmeprazole 20 mg capsule,delayed release(DR/EC) Discontinued 40 MG PO Twice daily June 05, 2017 12:00am May 26, 2018 9:45pmStart: 06-05-2017 End: 89-07-7156ufcr 40 mg by mouth twice dailyOmeprazole Discontinued 40 MG PO Twice daily June 05, 2017 12:00am May 26, 2018 9:45pmStart: 12-21-2014 End: 12-19-7884jgnk 1 capsule by mouth twice dailyomeprazole (PRILOSEC) 20 MG capsule Take 1 capsule by mouth 2 times daily 30 capsule 1 12/21/2014 01/09/2019 Discontinued (Therapy completed)omeprazole 40 mg Cap-DR (4 sources)Start: 06-15-2021 End: 33-45-7990kdlw 1 capsule by mouth once dailyomeprazole 40 mg Cap-DR 40 mg = 1 cap(s), Oral, Daily, X 90 day(s), # 90 cap(s), Refills(s) 0, [facility], 149, cm, 06/15/21 12:17:00 EDT, Height/Length Dosing, 97.9, kg, 06/15/21 12:17:00 EDT, Weight Dosing Start Date: 06/15/21 Stop Date: 09/13/21 Status: Orderedoxybutynin chloride 5 mg oral tablet (1 source)Cholinergic Muscarinic AntagonistStart: 41-66-4233kyoz 1 tablet by mouth three times daily as neededoxybutynin 5 mg Tab 5 mg = 1 tab(s), Oral, TID, PRN for urinary discomfort, # 30 tab(s), Refills(s)0, Pharmacy: [facility] #[id number], 149, cm, 08/11/24 18:04:00 EDT, Height/Length Dosing, 102.5, kg, 08/11/24 18:04:00 EDT, Weight Dosing Start Date: 08/11/24 Status: Ordered Quantity: 30.0 Unit:tab(s) Repeat number: 1pantoprazole 40 mg delayed release oral tablet (20 sources)Proton Pump InhibitorStart: 29-36-3564Vpwgjykopwwl [address] Tab Refills(s) 0 Start Date: 10/24/21 Status: Ordered Repeat number: 1Start: 40-52-9895qqpa 1 tablet by mouth once dailypantoprazole 40 mg Oral EC Tab 40 mg = 1 tab(s), Oral, Daily, # 30 tab(s), Refills(s) 0, [facility]: [facility], 149, cm, 08/31/20 23:13:00 EDT, Height/Length Dosing, 73.1, kg, 08/31/2122:13:00 EDT, Weight Dosing Start Date: 09/01/20 Status: OrderedStart: 75-83-8915Ufpyeitmktlo [address] Tab Refills(s) 0 Start Date: 10/24/21 Status: OrderedStart: 12-17-2019 End: 83-39-4110ogep 1 tablet by mouth every twenty-four hoursPantoprazole Sodium 40 MG 1 tablet Orally Once a day for 30 day(s) May, ActiveStart: 74-78-4240Bzpvolql Refills(s) 0 Start Date: 02/14/19 Status: Orderedpantoprazole (PROTONIX) injection 40 mg (1 source)Start: 17-35-8672uqnqtkssbqvi (PROTONIX) injection 40 mg phenazopyridine hydrochloride 100 mg oral tablet (9 sources)Start: 08-11-2024 End: 25-77-6536nkgx 1 tablet by mouth three times dailyPyridium 100 mg Tab 100 mg = 1 tab(s), Oral, TID, X 3 day(s), # 9 tab(s), Refills(s) 0, [id number], 149, cm, 08/11/24 18:04:00 EDT, Height/Length Dosing, 102.5, kg, 08/11/2517:04:00 EDT, Weight Dosing Start Date: 08/11/24 Stop Date: 08/14/24 Status: Ordered Quantity: 9.0 Unit: tab(s) Repeat number: 1Start: 01-19-2024 End: 55-29-0007cbvn 1 tablet by mouth three times daily as needed for pain Phenazopyridine (Pyridium) 100 mg tablet Discontinued 100 MG PO Three times daily as needed for pain January 19, 2024 1:00am April 23, 2024 10:45amStart: 09-20-2023 End: 72-63-1794acsu 1 tablet by mouth three times daily as needed for pain Phenazopyridine (Pyridium) 200 mg tablet Discontinued 200 MG PO Three times daily as needed for pain September 20, 2023 12:00am April 23, 2024 10:45am administer with a full glass of water with each mealpolyethylene glycol 3350 57153 mg powder for oral solution (20 sources)Osmotic LaxativeStart: 90-34-9087hlvk 17 [IU] by mouth once daily Miralax 3350 17 gram packet 17 gram, Oral, Daily, # 12 EA, Refills(s) 0 Start Date: 07/26/18 Status:Ordered Quantity: 12.0 Unit: EA Repeat number: 1Start: 59-45-2074futn 17 g by mouth once dailyMiralax 3350 17 gram packet 17 gm, Oral, Daily, # 24 EA, Refills(s) 0 Start Date: 09/03/23 Status: Ordered Quantity: 24.0 Unit: EA Repeat number: 1polyethylene glycol 3350 with electrolytes Oral Pwdr for Claire 4000 mL (NuLytely) (20 sources)Start: 54-09-9154fthq 1 dose by mouth oncepolyethylene glycol 3350 with electrolytes Oral Pwdr for Claire 4000 mL (NuLytely) See Instructions, 1EA, Refill(s) 0, PER PHYSICIAN INSTRUCTIONS. PRIOR TO COLONOSCOPY., [facility], 149, cm, 06/15/21 12:17:00 EDT, Height/Length Dosing, 97.9, kg, 06/15/21 12:17:00 EDT, Weight Dosing Start Date: 06/15/21 Status: Ordered Quantity: 1.0 Unit: EA Repeat number: 1Start: 76-28-5275dhlh 1 dose by mouth oncepolyethylene glycol 3350 with electrolytes Oral Pwdr for Claire 4000 mL (NuLytely) See Instructions, 1EA, Refill(s) 0, PER PHYSICIAN INSTRUCTIONS. PRIOR TO COLONOSCOPY., [facility], 149, cm, 06/15/21 12:17:00 EDT, Height/Length Dosing, 97.9, kg, 06/15/21 12:17:00 EDT, Weight Dosing Start Date: 06/15/21 Status: OrderedpredniSONE 20 mg oral tablet (20 sources)Start: 01-25-2022 End: 92-26-9828jvpn 2 tablets by mouth once dailypredniSONE 20 mg Tab 40 mg = 2 tab(s), Oral, Daily, X 5 day(s), # 10 tab(s), Refills(s) 0, [facility] #[id number], 150, cm, 01/25/22 0:07:00 EST, Height/Length Dosing, 96, kg, 01/25/22 0:07:00 EST, Weight Dosing Start Date: 01/25/22 Stop Date: 01/30/22 Status: OrderedStart: 04-24-2019 End: 60-56-5421nsfn 3 tablets by mouth once dailyPrednisone 20 mg tablet Discontinued 60 MG PO Daily April 24, 2019 1:00am April 06, 2023 2:52pmStart: 04-24-2019 End: 82-03-9831ljiu 60 mg by mouth once dailyPrednisone Discontinued 60 MG PO Daily April 24, 2019 1:00am April 06, 2023 2:52pmStart: 10-27-2018 End: 20-63-9471ncoi 1 tablet by mouth once dailyPrednisone 50 mg tablet Discontinued 50 MG PO Daily 06 30October 27, 2018 12:00am December 15, 2018 9:51amStart: 08-19-2018 End: 44-92-8452gtfd 60 mg by mouth once dailyPrednisone Discontinued 60 MG PO Daily August 19, 2018 12:00am September 29, 2018 7:03amStart: 01-21-2018 End: 73-62-0923xgdp 2 tablets by mouth once daily in the morningPrednisone 20 mg tablet Discontinued 40 MG PO Every morning 11 30January 21, 2018 1:00am February 04, 2018 12:19pm administer with food or milkStart: 01-21-2018 End: 45-34-4367rohc 40 mg by mouth once daily in the morningPrednisone Discontinued 40 MG PO Every morning 11 30January 21, 2018 1:00am February 04, 2018 12:19pm administer with food or milkStart: 12-05-2015 End: 09-80-9664wspt 3 tablets by mouth once dailyPrednisone 20 mg tablet Discontinued 60 MG PO Daily August 19, 2018 12:00am September 29, 2018 7:03am ProAir HFA 90 mcg/inh inhalation aerosol (20 sources)Start: 67-17-7121hqoh 2 puff(s) by inhalation four times dailyProAir HFA 90 mcg/inh inhalation aerosol 2 puff(s), Inhalation, QID Shortness of breath or wheezing, Refill(s) 0 Start Date: 02/02/17 Status: Ordered Repeat number: 1Start: 79-79-3935ipfz 2 puff(s) by inhalation four times dailyProAir HFA 90 mcg/inh inhalation aerosol 2 puff(s), Inhalation, QID Shortness of breath or wheezing, Refill(s) 0 Start Date: 02/02/17 Status: OrderedPropranolol (9 sources)beta-Adrenergic BlockerPropranolol HCl (INDERAL PO) Take by mouth. Verify dosage. ActivePropranolol HCl (INDERAL PO) Take by mouth. Verify dosage. 0 Activesertraline 50 mg oral tablet (20 sources)Serotonin Reuptake InhibitorStart: 24-59-1356cawz 1 tablet by mouth every twenty-four hoursZoloft 50 MG 1 tablet Orally Once a day for 90 days Feb, Activesulfamethoxazole 800 mg / trimethoprim 160 mg oral tablet (20 sources)Dihydrofolate Reductase Inhibitor Antibacterial, Sulfonamide AntimicrobialStart: 08-11-2024 End: 35-97-9964Ezdxhud D.S. 800 mg-160 mg Tab 1 tab(s), Oral, BID for 7 day(s), 14 tab(s), Refill(s) 0, [facility] #37, 149, cm, 08/11/24 18:04:00 EDT, Height/Length Dosing, 102.5, kg, 08/11/24 18:04:00EDT, Weight Dosing Start Date: 08/11/24 Stop Date: 08/18/24 Status: Ordered Quantity: 14.0 Unit: tab(s) Repeat number: 1Start: 07-22-2024 End: 57-57-2261Xwuhmaz D.S. 800 mg-160 mg Tab 1 tab(s), Oral, BID for 5 day(s), 10 tab(s), Refill(s) 0, [facility] #37, 149, cm, 07/22/24 17:18:00 EDT, Height/Length Dosing, 94.4, kg, 07/22/24 18:10:00 EDT, Weight Dosing Start Date: 07/22/24 Stop Date: 07/27/24 Status: Ordered Quantity: 10.0 Unit: tab(s) Repeat number: 1Start: 09-20-2023 End: 99-40-8867rqov 1 tablet by mouth twice dailySulfamethoxazole-Trimethoprim (Bactrim Ds) 800-160 mg tablet Discontinued 1 TAB PO Twice daily September 20, 2023 12:00am April 23, 2024 10:45amStart: 45-03-9749ddrp 1 tablet by mouth every twelve hoursBactrim DS 800-160 MG 1 tablet Orally Twice a day for 7 days Nov, ActiveStart: 11-08-2021 End: 75-67-8801Uqccheg 400 mg-80 mg Tab 2 tab(s), Oral, BID for 5 day(s), 20 tab(s), Refill(s) 0, [facility] #[id number],150, cm, 11/08/21 6:49:00 EDT, Height/Length Dosing, 75, kg, 11/08/21 6:49:00 EDT, Weight Dosing Start Date: 11/08/21 Stop Date: 11/13/21 Status: OrderedStart: 02-04-2018 End: 91-78-6731fwxv 1 tablet by mouth twice dailySulfamethoxazole-Trimethoprim (Bactrim Ds) 800-160 mg tablet Discontinued 1 TAB PO Twice daily 6 February 04, 2018 1:00am February 06, 2018 1:00am February 07, 2018 1:02amStart: 01-01-2018 End: 00-07-3014nkqb 1 tablet by mouth twice dailySulfamethoxazole-Trimethoprim (Bactrim Ds) 800-160 mg tablet Discontinued 1 TAB PO Twice daily 14 2017 1:00am January 07, 2018 1:00am January 08, 2018 1:01amStart: 06-17-2017 End: 09-77-4531xyzc 1 tablet by mouth twice dailySulfamethoxazole-Trimethoprim (Bactrim Ds) 800-160 mg tablet Discontinued 1 TAB PO Twice daily 20 June 17, 2017 12:00am June 26, 2017 12:00am June 27, 2017 12:01amtamsulosin hydrochloride 0.4 mg oral capsule (7 sources)alpha-Adrenergic BlockerStart: 97-38-3504aiec 1 capsule by mouth once dailyFlomax 0.4 mg Cap 0.4 mg = 1 cap(s), Oral, Daily, # 10 cap(s), Refills(s) 0, Pharmacy: [facility] #37, 149, cm, 07/22/24 17:18:00 EDT, Height/Length Dosing, 94.4, kg, 07/22/24 18:10:00 EDT, Weight Dosing Start Date: 07/22/24 Status: Ordered Quantity: 10.0 Unit: cap(s) Repeat number: 1traMADol hydrochloride 50 mg oral tablet (20 sources)Opioid AgonistStart: 12-17-2019 End: 37-20-6881wjqj 0.5 tablet by mouth every six hours as needed for pain traMADol (ULTRAM) 50 MG tablet Indications: Acute pyelonephritis Take 0.5 tablets by mouth every 6 hours as needed for Pain for up to 3 days. 6 tablet 0 12/17/2019 12/20/2019 ActiveStart: 77-11-2301qubi 1 tablet by mouth every six hours as needed for paintraMADOL 50 mg Tab 50 mg = 1 tab(s), Oral, q6hr, PRN Pain, # 7 tab(s), Refills(s) 0, Pharmacy: [facility] #37, 149, cm, 11/20/20 20:58:00 EDT, Height/Length Dosing, 76, kg, 11/20/20 20:58:00 EDT, Weight Dosing Start Date: 11/21/20 Status: Ordered Quantity: 7.0 Unit: tab(s) Repeat number:1 Indications: Pain, unspecified; Crushing injury of unspecified foot, initial encounter;Start: 01-27-4856qvma 1 tablet by mouth once daily at bedtime as neededtraMADol HCl 50 MG 1 tablet as needed Orally Once a day at bedtime for 10 days Jul, Not-TakingZofran ODT 4 mg Tab-Dis (20 sources)Start: 22-84-7177xmfw 1 tablet by mouth every eight hours as needed for nauseaZofran ODT 4 mg Tab-Dis 4 mg = 1 tab(s), Oral, q8hr, PRN Nausea/Vomiting, # 20 tab(s), Refills(s) 0, Pharmacy: [facility] #37, 149, cm, 08/11/24 18:04:00 EDT, Height/Length Dosing, 102.5,kg, 08/11/24 18:04:00 EDT, Weight Dosing Start Date: 08/11/24 Status: Ordered Quantity: 20.0 Unit: tab(s) Repeat number: 1Start: 57-51-9409pznl 1 tablet by mouth every eight hoursZofran ODT 4 mg Tab-Dis 4 mg = 1 tab(s), Oral, q8hr, # 12 tab(s), Refills(s) 0 Start Date: 09/03/23 Status: Ordered Quantity: 12.0 Unit: tab(s) Repeat number: 1Start: 61-45-1964xvqc 1 tablet by mouth every eight hoursZofran ODT 4 mg Tab-Dis 4 mg = 1 tab(s), Oral, q8hr, # 12 tab(s), Refills(s) 0 Start Date: 09/03/23 Status: OrderedStart: 51-62-8995vigi 1 tablet by mouth every eight hours as needed for nauseaZofran ODT 4 mg Tab-Dis 4 mg = 1 tab(s), Oral, q8hr, PRN Nausea/Vomiting, # 12 tab(s), Refills(s) 0, Pharmacy: [facility] #37, 150, cm, 08/27/23 19:10:00 EDT, Height/Length Dosing, 95.7, kg, 08/27/23 19:10:00 EDT, Weight Dosing Start Date: 08/27/23 Status: Ordered Quantity: 12.0 Unit: tab(s) Repeat number: 1Start: 58-20-6943dmla 1 tablet by mouth every eight hours as needed for nauseaZofran ODT 4 mg Tab-Dis 4 mg = 1 tab(s), Oral, q8hr, PRN Nausea/Vomiting, # 12 tab(s), Refills(s) 0, Pharmacy: [facility] #37, 150, cm, 08/27/23 19:10:00 EDT, Height/Length Dosing, 95.7, kg, 08/27/23 19:10:00 EDT, Weight Dosing Start Date: 08/27/23 Status: OrderedStart: 08-25-2022 take 1 tablet by mouth every eight hours as needed for nauseaZofran ODT 4 mg Tab-Dis 4 mg = 1 tab(s), Oral, q8hr, PRN Nausea/Vomiting, # 20 tab(s), Refills(s) 0, [facility]: [id number], 149, cm, 08/25/22 17:36:00 EDT, Height/Length Dosing, 70, kg, 08/25/22 17:36:00 EDT, Weight Dosing Start Date: 08/25/22 Status: Ordered Quantity: 20.0 Unit: tab(s) Repeat number: 1Start: 79-20-4400zhvr 1 tablet by mouth every eight hours as needed for nauseaZofran ODT 4 mg Tab-Dis 4 mg = 1 tab(s), Oral, q8hr, PRN Nausea/Vomiting, # 20 tab(s), Refills(s) 0, [facility]: [id number], 149, cm, 08/25/22 17:36:00 EDT, Height/Length Dosing, 70, kg, 08/25/22 17:36:00 EDT, Weight Dosing Start Date: 08/25/22 Status: OrderedStart: 69-07-7782ddgg 1 tablet by mouth three times daily Zofran ODT 4 mg Tab-Dis 4 mg = 1 tab(s), Oral, TID, # 15 tab(s), Refills(s) 0, Pharmacy: [facility] [address], 150, cm, 08/04/20 21:26:00 EDT, Height/Length Dosing, 72.3, kg, 08/04/20 21:26:00 EDT, Weight Dosing Start Date: 08/30/20 Status: Ordered Quantity: 15.0 Unit: tab(s) Repeat number: 1Start: 34-48-2062iiws 1 tablet by mouth three times dailyZofran ODT 4 mg Tab-Dis 4 mg = 1 tab(s), Oral, TID, # 15 tab(s), Refills(s) 0, [facility]: [facility], 150, cm, 08/04/20 21:26:00 EDT, Height/Length Dosing, 72.3, kg, 08/04/20 21:26:00 EDT, Weight Dosing Start Date: 08/30/20 Status: Ordered Completed/Discontinued Medications MedicationDrug Class(es)DatesSig (Normalized)Sig (Original)acetaminophen 325 mg / HYDROcodone bitartrate 5 mg oral tablet (20 sources)Opioid AgonistStart: 06-13-2023 End: 50-21-9870negj 1 tablet by mouth every four to six hours as needed for pain Hydrocodone-Acetaminophen 5-325 mg tablet Discontinued 1 TAB PO EVERY 4-6 HOURS as needed for pain 10 June 13, 2023 July 14, 2023 4:15pmStart: 05-16-2023 End: 18-29-1663isuv 1 tablet by mouth every four to six hours as needed for pain Hydrocodone-Acetaminophen 5-325 mg tablet Discontinued 1 TAB PO EVERY 4-6 HOURS as needed for pain 10 May 16, 2023 May 22, 2023 11:53amacetaminophen 325 mg / oxyCODONE hydrochloride 5 mg oral tablet (20 sources)Opioid AgonistStart: 09-20-2023 End: 52-29-9398lvzc 1 tablet by mouth every four to six hours as needed for pain Oxycodone-Acetaminophen (Percocet) 5-325 mg tablet Discontinued 1 TAB PO EVERY 4-6 HOURS as needed for severe pain (scale score 7-10) 4 September 20, 2023 April 23, 2024 10:45amStart: 06-22-2022 End: 11-26-2444Hxyxmauk 5 mg-325 mg oral tablet 1 tab(s), Oral, q6hr as needed for pain, 6 tab(s), Refill(s) 0, [facility] #37, 149, cm, 01/21/23 13:50:00 EST, Height/Length Dosing, 93.5, kg, 11/26/23 13:50:00 EST, Weight Dosing Start Date: 01/21/23 Status: Ordered Quantity: 6.0 Unit: tab(s) Repeat number: 1 Indications: Pain in right shoulder;Start: 09-13-2021 End: 25-83-2630Zeadjtxq 5 mg-325 mg oral tablet 1 tab(s), Oral, q6hr for 3 day(s), 12 tab(s), Refill(s) 0 Start Date: 09/13/21 Stop Date: 09/16/21 Status: OrderedStart: 12-14-2019 End: 57-31-7876sukKWCMBP-acetaminophen (PERCOCET) 5-325 MG per tablet 1 tablet Start: 01-09-2019 End: 08-22-7067klwh 1 tablet by mouth every four hours as needed for pain1 tablet, Oral, EVERY 4 HOURS PRN, Pain Severe (7-10), Starting Suzan 01/09/19 at 0325 Maximum dose of acetaminophen is 4000 mg from all sources in 24 hours. Start: 01-09-2019 End: 98-62-1500mszGGQXTG-acetaminophen (PERCOCET) 5-325 MG per tablet 1 tablet Start: 12-19-2018 End: 28-97-9576vnaf 1-2 tablets by mouth every six hours as needed for pain oxyCODONE-acetaminophen (PERCOCET) 5-325 MG per tablet Indications: Pyelonephritis , Cyst of left ovary Take 1-2 tablets by mouth every 6 hours as needed for Pain for up to 5 days. 6 tablet 0 12/19/2018 12/24/2018 ActiveStart: 01-21-2018 End: 55-69-3194ayby 1 tablet by mouth every six hours as needed for pain Oxycodone-Acetaminophen (Percocet) 5-325 mg tablet Discontinued 1 TAB PO Q6H as needed for pain 15 4 January 21, 2018 January 24, 2018 1:00am January 25, 2018 1:02amaluminum hydroxide 40 mg/ml / magnesium hydroxide 40 mg/ml / simethicone 4 mg/ml oral suspension (1 source)Start: 01-11-2019 End: 33-61-1763tftjxocf & magnesium hydroxide-simethicone (MAALOX) 200-200-20 MG/5ML suspension 30 mLARIPiprazole 30 mg oral tablet (2 sources)Atypical Antipsychotic End: 33-87-6340tozy 1 tablet by mouth once dailyaripiprazole (ABILIFY) 30 MG tablet Take 30 mg by mouth daily. 0 01/09/2019 Discontinued (Therapy completed) benzocaine 15 mg / menthol 3.6 mg oral lozenge (2 sources)Standardized Chemical AllergenStart: 01-06-2016 End: 98-67-1835fqktydfcvs-menthol (CEPACOL SORE THROAT) 15-3.6 MG lozenge Take 1 lozenge by mouth every 2 hours asneeded for Sore Throat 20 lozenge 0 01/06/2016 01/09/2019 Discontinued (Therapy completed)benzonatate 100 mg oral capsule (2 sources)Non-narcotic AntitussiveStart: 01-06-2016 End: 08-66-8909qufs 1 capsule by mouth three times daily as needed for cough benzonatate (TESSALON PERLES) 100 MG capsule Take 1 capsule by mouth 3 times daily as needed for Cough 8 capsule 0 01/06/2016 01/09/2019 Discontinued (Therapy completed)calcium chloride 0.0014 meq/ml / potassium chloride 0.004 meq/ml / sodium chloride 0.103 meq/ml / sodium lactate 0.028 meq/ml injectable solution (1 source)Start: 12-15-2019 End: 68-74-5254evwbifln ringers infusioncefTRIAXone (ROCEPHIN) 1 g IVPB in 50 mL D5W minibag (4 sources)Start: 12-14-2019 End: 12-15-20191 g, Intravenous, EVERY 24 HOURS, First dose on 12/14/19 at 2100, Until DiscontinuedStart: 12-13-2019 End: 47-42-4188zeeJFCLPkkz (ROCEPHIN) 1 g IVPB in 50 mL D5W minibagStart: 01-08-2019 End: 74-68-0224sfsLSGWBuxd (ROCEPHIN) 1 g IVPB in 50 mL D5W minibagStart: 12-19-2018 End: 73-72-7601eqbRARBAgtl (ROCEPHIN) 1 g IVPB in 50 mL D5W minibagciprofloxacin 500 mg oral tablet (5 sources)Quinolone AntimicrobialStart: 10-04-2023 End: 09-88-9186xkca 1 tablet by mouth every two hoursCiprofloxacin Hcl (Cipro) 500 mg tablet Discontinued 500 MG PO Twice daily 14 October 04, 2023 12:00am April 23, 2024 10:44am administer dose at least 2 hrs before/6 hrs after dairy products, calcium, zinc, and/or iron-containing productsStart: 01-09-2019 End: 04-59-9238kyttxmtjyeixn (CIPRO) IVPB 400 mg1 ml diphenhydrAMINE hydrochloride 50 mg/ml cartridge (1 source)Histamine-1 Receptor AntagonistStart: 01-08-2019 End: 92-56-0333dnsttestctPSERK (BENADRYL) injection 25 mgFLUoxetine (2 sources)Serotonin Reuptake Inhibitor End: 98-15-4603OVIITGKHRE HCL PO Take by mouth. Verify dosage. 0 01/09/2019 Discontinued (Therapy completed)FLUOXETINE HCL PO Take by mouth. Verify dosage. 0 ActiveFluticasone Propion-Salmeterol (16 sources)Corticosteroid, beta2-Adrenergic AgonistStart: 11-26-2016 End: 23-21-3417Jseripjnghu Propion-Salmeterol (Advair Diskus) 500-50 mcg/dose Blister With Device Discontinued 1 INH INHALATION Twice daily November 25, 2016 11:00pm October 27, 2018 9:17amStart: 11-26-2016 End: 76-15-4123Vxiozmihsmy Propion-Salmeterol (Advair Diskus) 500-50 mcg/dose Blister With Device Discontinued 1 INH INHALATION Twice daily November 26, 2016 12:00am October 27, 2018 10:17amFluticasone Furoate-Vilanterol (10 sources)Start: 05-22-2023 End: 33-61-9371Cvzsaywffmq Furoate-Vilanterol (Breo Ellipta) 50-25 mcg/dose blister with device Discontinued 1 INHINHALATION Daily May 21, 2023 11:00pm June 13, 2023 10:35amStart: 05-22-2023 End: 85-90-6252Xpwllomxgtn Furoate-Vilanterol (Breo Ellipta) 50-25 mcg/dose blister with device Discontinued 1 INHINHALATION Daily May 22, 2023 12:00am June 13, 2023 11:35amStart: 37-41-0224Fjwavzjovau Furoate-Vilanterol (Breo Ellipta) 50-25 mcg/dose blister with device Active 1 INH INHALATION Daily May 22, 2023 12:00am1 ml HYDROmorphone hydrochloride 1 mg/ml cartridge (3 sources)Opioid AgonistStart: 12-17-2019 End: 51-88-1247DUAWPowhyypbn (DILAUDID) injection 0.5 mgStart: 12-14-2019 End: 52-24-1086UABZDuyubedbm (DILAUDID) injection 1 mgStart: 12-19-2018 End: 66-70-9843MBONLkuhrxrxq (DILAUDID) injection 1 mgibuprofen 400 mg oral tablet (20 sources)Nonsteroidal Anti-inflammatory DrugStart: 10-29-2019 End: 63-00-3497khpmacpqd (ADVIL;MOTRIN) tablet 600 mgStart: 01-21-2018 End: 19-74-8702cfpu 1 tablet by mouth three times daily as needed for pain Ibuprofen 800 mg tablet Discontinued 800 MG PO Three times daily as needed for pain January 21, 2018 1:00am March 01, 2018 11:30amStart: 03-07-2015 take 1 tablet by mouth every six hours as needed for painibuprofen (ADVIL;MOTRIN) 800 MG tablet Take 1 tablet by mouth every 6 hours as needed for Pain 50 tablet 0 03/07/2015 Activeibuprofen 200 MG tablet Take by mouth 0 Active Iohexol (2 sources)Radiographic Contrast AgentStart: 01-10-2019 End: 89-31-8316uvqjhhg (OMNIPAQUE 350) solution 75 mLStart: 12-19-2018 End: 43-22-7619ehfcoed (OMNIPAQUE 350) solution 75 mLiopamidol (ISOVUE-370) 76 % injection 75 mL (1 source)Start: 10-27-2023 End: 93-35-0260sfhi 1 dose intravenously once75 mL, IntraVENous, IMG ONCE PRN, 1 dose, Starting on 10/27/23 at 1328, Until 10/27/23 at 1346, Other Ketorolac Tromethamin (13 sources)Start: 43-47-8992Gfbfosqdl Tromethamin May, 60 mg levoFLOXacin 500 mg oral tablet (20 sources)Quinolone AntimicrobialStart: 01-13-2019 End: 15-98-4050tqpo 1 tablet by mouth once dailylevofloxacin (LEVAQUIN) 500 MG tablet Take 1 tablet by mouth daily for 2 days 2 tablet 0 DiscontinuedStart: 01-11-2019 End: 97-54-8157bqij 1 tablet by mouth once dailylevofloxacin (LEVAQUIN) 500 MG tablet Take 1 tablet by mouth daily for 2 days 2 tablet 0 ActiveStart: 07-19-2018 End: 70-99-8603ihcq 1 tablet by mouth once dailyLevofloxacin (Levaquin) 750 mg tablet Discontinued 750 MG PO Daily 08 01July 19, 2018 12:00am August 19, 2018 9:41amlurasidone hydrochloride 40 mg oral tablet (2 sources)Atypical Antipsychotic End: 71-06-8759ufcoxvmoju (LATUDA) 40 MG TABS tablet Take 60 mg by mouth daily 0 01/09/2019 Discontinued (Therapy completed)metroNIDAZOLE 500 mg oral tablet (4 sources)Nitroimidazole AntimicrobialStart: 01-08-2019 End: 46-88-3509lnyw 1 tablet by mouth every twelve hoursmetroNIDAZOLE (FLAGYL) 500 MG tablet Take 1 tablet by mouth every 12 hours for 2 days 4 tablet 0 01/12/2019 Discontinued1 ml morphine sulfate 2 mg/ml injection (11 sources)Opioid AgonistStart: 12-14-2019 End: 68-94-7136uqzkjifl 2 MG/ML injectionStart: 12-14-2019 End: 83-78-2429jqkn 2 mg by mouth every four hours as needed for pain2 mg, Intravenous, EVERY 4 HOURS PRN, Pain Moderate (4-6), Pain Severe (7-10), Starting 12/14/19 at 0331 If oral and IV narcotics ordered, use oral first and only use IV if oral is ineffective orcannot take oral. Do Not give oral and IV within 1 hour of each other unless specifically ordered.Start: 12-14-2019 End: 89-53-4645gtzrkyyi injection 2 mgStart: 12-13-2019 End: 40-35-6957nyrdlptf injection 4 mgStart: 01-09-2019 End: 22-16-3277pehcmsmb injection 2 mgStart: 01-09-2019 End: 96-49-4283jwrkhepm injection 2 mgStart: 01-08-2019 End: 36-84-0416wtsmkbhw injection 4 mgStart: 12-19-2018 End: 66-83-1899doklbqjb injection 4 mgStart: 12-19-2018 End: 29-55-2284jwhshmta injection 4 mgnitrofurantoin, macrocrystals 25 mg / nitrofurantoin, monohydrate 75 mg oral capsule (3 sources)Nitrofuran AntibacterialStart: 01-19-2024 End: 16-67-6999pxvc 1 capsule by mouth twice daily at mealtimeNitrofurantoin Monohyd/M-Cryst (Macrobid) 100 mg capsule Discontinued 100 MG PO Twice daily 14 January 19, 2024 1:00am April 23, 2024 10:44am must administer with a meal/foodondansetron 4 mg disintegrating oral tablet (20 sources)Serotonin-3 Receptor AntagonistStart: 01-19-2024 End: 69-96-5348prbi 1 tablet by mouth three times dailyOndansetron 4 mg tablet,disintegrating Discontinued 4 MG PO Three times daily 9 January 19, 2024 1:00am April 23, 2024 10:45amStart: 01-44-6186efvu 1 tablet by mouth every eight hours as needed for nausea and vomitingondansetron ODT (Zofran-ODT) 4 MG disintegrating tablet Take 4 mg by mouth every 8 (eight) hours ifneeded for nausea or vomiting 12/26/2023 ActiveStart: 10-27-2023 End: mg, IntraVENous, ONCE, 1 dose, On 10/27/23 at 1245Start: 07-14-2023 End: 33-74-9268vsyp 1 tablet by mouth once daily as needed for nausea and vomitingOndansetron 8 mg tablet,disintegrating Discontinued 8 MG PO Daily as needed for nausea and ysdpjazt07 4 July 14, 2023 12:00am September 20, 2023 12:47amStart: 05-12-2023 End: 38-01-4317pqmd 1 tablet by mouth four times daily as needed for nausea and vomitingOndansetron 4 mg tablet,disintegrating Discontinued 4 MG PO Four times daily as needed for nausea and vomiting May 12, 2023 12:00am June 13, 2023 11:35amStart: 60-17-9645oevw 1 tablet by mouth three times daily as needed Ondansetron 4 MG 1 tablet on the tongue and allow to dissolve Orally TID PRN for 10 days Apr, ActiveStart: 09-01-2020 End: 32-47-3245sszr 1 tablet by mouth every six hours as needed for nauseaZofran ODT 4 mg Tab 4 mg = 1 tab(s), Oral, q6hr, PRN Nausea/Vomiting, # 12 tab(s), Refills(s) 0, [facility], 146, cm, 04/18/21 14:27:00 EST, Height/Length Dosing, 85, kg, 04/18/21 14:27:00 EST, Weight Dosing Start Date: 04/18/21 Status: Ordered Quantity: 12.0 Unit: tab(s) Repeat number: 1Start: 03-10-2020 End: 48-45-9472lbehhdgaytq (ZOFRAN) injection 4 mgStart: 12-13-2019 End: 47-27-5823tplhehjsgef (ZOFRAN-ODT) disintegrating tablet 4 mgStart: 12-13-2019 End: 85-57-6868oasrrpiakth (ZOFRAN-ODT) disintegrating tablet 4 mgStart: 01-14-2019 End: 24-89-0091retjqgidspt (ZOFRAN) injection 4 mgStart: 01-11-2019 End: 69-44-9313stuliomctvx (ZOFRAN) injection 4 mgStart: 01-08-2019 End: 53-99-0806fermrynpxig (ZOFRAN) injection 4 mgStart: 12-19-2018 End: 63-27-8392mreq 1 tablet by mouth every eight hours as needed for nausea ondansetron (ZOFRAN ODT) 4 MG disintegrating tablet Take 1 tablet by mouth every 8 hours as needed for Nausea or Vomiting 45 tablet 0 12/17/2019 01/01/2020 ActiveStart: 12-19-2018 End: 76-48-6241tyglkjqjdaj (ZOFRAN) injection 8 mgStart: 11-03-2018 End: 57-45-6408omqk 1 tablet by mouth every six hours as needed for nausea and vomitingOndansetron 4 mg tablet,disintegrating Discontinued 4 MG PO Q6H as needed for nausea and vomiting 7Sept2018 12:00am December 15, 2018 9:51amStart: 07-21-2018 End: 44-85-3668mmmx 1 tablet by mouth three times daily as needed for nausea and vomitingOndansetron 4 mg tablet,disintegrating Discontinued 4 MG PO Three times daily as needed for nausea and vomiting 10 July 21, 2018 12:00am August 19, 2018 9:41amStart: 05-08-2018 End: 91-41-3357vxrq 1 tablet by mouth every eight hours as needed for nausea and vomitingOndansetron 8 mg tablet,disintegrating Discontinued 8 MG PO Q8H as needed for nausea and vomiting 10 May 08, 2018 12:00am May 11, 2018 12:00am May 12, 2018 12:02amStart: 11-24-2017 End: 62-46-2391wqcc 1 tablet by mouth three times dailyOndansetron Hcl (Zofran) 4 mg tablet Discontinued 4 MG PO Three times daily 15 November 24, 2017 12:00am November 28, 2017 12:00am November 25, 2017 7:16pmStart: 08-06-2017 End: 11-36-3680ygdy 1 tablet by mouth every four hours for nauseaOndansetron (Zofran Odt) 4 mg Tablet,Disintegrating Discontinued 4 MG PO Q4H as needed for Nausea August 06, 2017 12:00am November 22, 2017 11:02am administer first dose 30 minutes before startof emetogenic umejgehfpjik20 hr OXcarbazepine 300 mg extended release oral tablet (20 sources)Anti-epileptic Agenttake 1 tablet by mouth once daily at bedtime Oxtellar XR 300 MG 1 Tablet Orally qhs for 30 day(s) Not-Taking/PRNoxyCODONE hydrochloride 5 mg oral tablet (2 sources)Opioid AgonistStart: 01-12-2019 End: 27-46-7621sjfo 1 tablet by mouth every six hours as needed for pain, then take 5 tablets by mouth as needed for painoxyCODONE (ROXICODONE) 5 MG immediate release tablet Indications: Pyelonephritis Take 1 tablet by mouth every 6 hours as needed for Pain for up to 5 doses. Intended supply: 5 days. Take lowest dose possible to manage pain 5 tablet 0 01/12/2019 01/12/2019 Discontinued (Stop Taking at Discharge)Start: 47-13-2655xcfPDZKFD (ROXICODONE) immediate release tablet 5 mgmicroencapsulated potassium chloride 20 meq extended release oral tablet (1 source)Start: 12-15-2019 End: 56-14-4089unkeoxton chloride (KLOR-CON M) extended release tablet 40 mEq promethazine hydrochloride 25 mg rectal suppository (20 sources)PhenothiazineStart: 07-06-2023 End: 97-38-1975Whslemwhnljq 25 mg suppository Discontinued 25 MG UT Q6H as needed for Nausea July 06, 2023 12:00am September 20, 2023 12:47amStart: 37-47-0135tafd 12.5 mg rectal route every eight hours as needed for nausea Phenergan 12.5 mg Supp 12.5 mg = 1 supp, Rectal, q8hr, PRN as needed for nausea/vomiting, second line, # 6 EA, Refills(s) 0, Pharmacy: [facility] #[id number], 149, cm, 08/25/22 17:36:00 EDT, Height/Length Dosing, 70, kg, 08/25/22 17:36:00 EDT, Weight Dosing Start Date: 08/25/22 Status: Ordered Quantity: 6.0 Unit: EA Repeat number: 1Start: 64-89-6559jdfh 1 tablet by mouth every six hours as needed for nauseapromethazine 25 mg Tab 25 mg = 1 tab(s), Oral, q6hr, PRN as needed for nausea/vomiting, # 12 tab(s), Refills(s) 0, Pharmacy: [facility] #[id number], 150, cm, 01/25/22 0:07:00 EST, Height/Length Dosing, 96, kg, 01/25/22 0:07:00 EST, Weight Dosing Start Date: 01/25/22 Status: Ordered Quantity: 12.0 Unit: tab(s) Repeat number: 1Start: 94-72-1101jaseqzoaczvo (PHENERGAN) tablet 12.5 mgStart: 61-80-5093YXYAQBXZNSBX (Phenergan) up to 50 mg Mar, 25 mg Start: 11-25-2017 End: 41-42-5378Lvdlfycqjhrp 50 mg suppository Discontinued 50 MG UT Q6H as needed for nausea and vomiting November 25, 2017 12:00am March 01, 2018 11:30amStart: 09-20-2017 End: 32-96-0171kwrw 1 tablet by mouth every six hours as needed for nausea and vomitingPromethazine 25 mg tablet Discontinued 25 MG PO Q6H as needed for nausea and vomiting August 12:00am November 24, 2017 8:47pm50 ml sodium chloride 9 mg/ml injection (11 sources)Start: 03-10-2020 End: .9 % sodium chloride bolusStart: 58-86-440362 mL, Intravenous, EVERY 12 HOURS SCHEDULED (2 times per day), First dose on [place] 12/14/19 at 0900 Start: 90-01-2858oymw 10 mL intravenous route once as abwqnd60 mL, Intravenous, PRN, Line Care, After every IV line use, Starting [place] 12/14/19 at 0331Start: 12-14-2019 End: 20-71-6399Rrjivpdlaaa, at 125 mL/hr, CONTINUOUS, Starting [place] 12/14/19 at 0345Start: 12-13-2019 End: 12-14-20190.9 % sodium chloride bolusStart: 01-14-2019 End: .9 % sodium chloride bolusStart: .9 % sodium chloride infusionStart: 03-87-795714 mL, Intravenous, EVERY 12 HOURS SCHEDULED (2 times per day), First dose on [place] 01/09/19 at 0900Start: 76-26-2254vsky 10 mL intravenous route once as mL, Intravenous, PRN, Line Care, After every IV line use, Starting [facility] 01/09/19 at 0325Start: 12-19-2018 End: .9 % sodium chloride bolussucralfate 1000 mg oral tablet (20 sources)Aluminum ComplexStart: 11-10-2018 End: 95-00-7262fdng 1 tablet by mouth at bedtimeSucralfate (Carafate) 1 gram tablet Discontinued 1 GM PO Before meals and at bedtime 60 November 10, 2018 12:00am December 15, 2018 9:51amStart: 06-05-2017 End: 60-56-8942rylz 1 tablet by mouth once dailySucralfate 1 gram tablet Discontinued 1 GM PO Daily June 05, 2017 12:00am July 17, 2017 9:12pmStart: 01-15-2015 End: 98-38-5731yzbz 1 tablet by mouth four times daily 1 hour(s) before bedtime Sucralfate (Carafate) 1 gram tablet Discontinued 1 GM PO Four times daily 60 July 11, 2017 12:00amSept2017 11:02am administer 1 hour before meals and at bedtimetiZANidine 4 mg oral tablet (20 sources)Central alpha-2 Adrenergic AgonistStart: 04-17-2023 End: 78-54-6744mygg 1 tablet by mouth three times daily as needed for pain Tizanidine 4 mg tablet Discontinued 4 MG PO Three times daily as needed for muscle pain 2023 1:00am May 22, 2023 11:53amStart: 04-06-2023 End: 85-20-5611vcfm 1 capsule by mouth three times daily as neededTizanidine 4 mg capsule Discontinued 4 MG PO Three times daily as needed for muscle spasticity April 06, 2023 1:00am June 13, 2023 11:35amtopiramate (2 sources) End: 31-14-3224Qltbytbnvf (TOPAMAX PO) Take by mouth daily. Verify dosage. 0 01/09/2019 Discontinued (Therapy completed)Topiramate (TOPAMAX PO) Take by mouth daily. Verify dosage. 0 ActivetraZODone hydrochloride 100 mg oral tablet (20 sources)Serotonin Reuptake InhibitorStart: 38-61-7476abru 1 tablet by mouth every twenty-four hourstraZODone HCl 50 MG 1 tablet at bedtime as needed Orally Once a day for 30 day(s) Nov, ActiveStart: 12-01-2021 End: 10-23-1740aatJZYtrc (Desyrel) 100 MG tablet 07/19/2022 01/10/2024 Discontinued Problems Active Problems Problem ClassificationProblemDateDocumented DateEpisodic/ChronicAbdominal pain (20 sources)Flank pain; Translations: [Abdominal pain]Onset: 06-15-2021 27-09-9260GwzirjhbZwxlq bronchitis (1 source)Acute bronchitis, unspecifiedEpisodicAllergic reactions (20 sources)Allergy to bee venom; Translations: [Bee allergy status]Episodic Anxiety disorders (20 sources)Mixed anxiety and depressive disorder; Translations: [Other specified anxiety disorders]ChronicAsthma (20 sources)Asthma; Translations: [Unspecified asthma, uncomplicated]Onset: 11-24-2020 Resolved: 031725-03-9804VwwvzheGoskpfzzi-yrjovmp conduct and disruptive behavior disorders (9 sources)Adult attention deficit hyperactivity disorder ; Translations: [Attention-deficit hyperactivity disorder, unspecified type]06-73-0446Pxyndtz Attention-deficit, conduct, and disruptive behavior disorders (20 sources)Attention deficit hyperactivity afkqjrpa30-74-6311PfxevmaKvwmjbtt of urinary tract (20 sources)Kidney stone; Translations: [Calculus of kidney]Onset: 08-27-2023 09-33-8801VwalojmmUqeohpx dysrhythmias (20 sources)Irregular heart beat; Translations: [Cardiac arrhythmia, unspecified]ChronicChronic obstructive pulmonary disease and bronchiectasis (20 sources)Bronchitis; Translations: [Bronchitis, not specified as acute or chronic]28-16-1906JagsnlqoAkznisjt mellitus without complication (20 sources)Diabetes cqybcjyq54-66-7415QdgyycyGunxiqad of white blood cells (17 sources)Leukocytosis; Translations: [Elevated white blood cell count, unspecified]19-43-5809CdkctqxPywrxgde of white blood cells (8 sources)Band neutrophil count above reference range; Translations: [Bandemia] 63-02-2229WhxgzkkrMtobtvyne of teeth and jaw (16 sources)Dental caries; Translations: [Dental caries, unspecified]03-26-2019 EpisodicE Codes: Fall (20 sources)Fall; Translations: [Unspecified fall, initial encounter]Onset: 22-57-7900YvmxcfemAeubdskiachuv (2 sources)Uterine adenomyosis; Translations: [Adenomyosis]00-59-7214Sgpvwaz Epilepsy; convulsions (20 sources)Seizure disorder; Translations: [Epilepsy, unspecified, not intractable, without status epilepticus]ChronicEpilepsy; convulsions (20 sources)Seizure; Translations: [Unspecified convulsions]18-98-6642Rdtusfnb Esophageal disorders (20 sources)Gastroesophageal reflux disease; Translations: [Gastro-esophageal reflux disease without esophagitis]ChronicFluid and electrolyte disorders (16 sources)Hyponatremia; Translations: [Hypo-osmolality and hyponatremia] 88-88-5644QnjwhmdwLbrtvmwma and duodenitis (20 sources)Chronic gastritis; Translations: [Unspecified chronic gastritis without bleeding]Onset: 46-68-1934UwkxgrsRppkpisbo and duodenitis (16 sources)Gastritis; Translations: [Gastritis, unspecified, without bleeding] 81-75-6264OqtujknlHusdjbroocfhyu ulcer (except hemorrhage) (20 sources)Antral ulcer; Translations: [Gastric ulcer]14-62-7818Nwycrlt Gastroduodenal ulcer (except hemorrhage) (16 sources)H/O: gastric ulcer; Translations: [Personal history of peptic ulcer disease]40-61-7410QyrzrqhsOwzfdygatrvrttco hemorrhage (20 sources)Hematemesis; Translations: [Hematemesis]Onset: EpisodicGenitourinary symptoms and ill-defined conditions (2 sources)Blood in urine; Translations: [Hematuria, unspecified]Onset: 59-54-2738KgyjliipKcemdkqm; including migraine (20 sources)Migraine; Translations: [Migraine, unspecified, not intractable, without status migrainosus]Onset: 078134-50-6812MorgvjjZuxsgics; including migraine (16 sources)Headache; Translations: [Headache]87-57-5525XoqayjloXjadnzdqpxiig and screening for infectious disease (2 sources)Patient encounter status; Translations: [Encounter for screening for human papillomavirus (HPV)]55-10-5578MkylfnbbEalpnjd and fatigue (16 sources)Fatigue; Translations: [Other fatigue]09-79-2927EmymerqhVyqfetjxt disorders (12 sources)Menometrorrhagia; Translations: [Excessive and frequent menstruation with irregular cycle]72-10-3247KvztceoUyfa disorders (20 sources)Bipolar disorder; Translations: [Affective psychosis]11-24-2010 ChronicNausea and vomiting (20 sources)Intractable nausea and vomiting; Translations: [Uncontrollable vomiting]Onset: 417394-68-2322PiauonslPcecvnytqsz chest pain (16 sources)Atypical chest pain; Translations: [Other chest pain]09-07-2018 EpisodicNutritional deficiencies (5 sources)Vitamin D deficiency; Translations: [Vitamin D deficiency, unspecified]Onset: 599336-75-8336BysscdeLcuqw circulatory disease (16 sources)Pulmonary congestion ; Translations: [Other specified symptoms and signs involving the circulatory and respiratory systems]41-72-1580UbovzljxUqlzy connective tissue disease (1 source)Pain in right arm; Translations: [Right arm pain]EpisodicOther connective tissue disease (2 sources)Hand pain; Translations: [Pain in unspecified hand]Onset: 10-24-2021 EpisodicOther connective tissue disease (15 sources)Pain in lower limb; Translations: [Pain in left leg]11-06-2022 EpisodicOther diseases of kidney and ureters (20 sources)Kidney disease; Translations: [Other specified disorders of kidney and ureter]ChronicOther female genital disorders (4 sources)Pain in female genitalia on intercourse; Translations: [Unspecified dyspareunia]86-23-9715FoulktvYkijz gastrointestinal disorders (2 sources)Abnormal feces; Translations: [Other fecal abnormalities]Onset: 54-82-8098FdwvztjiXqsiv gastrointestinal disorders (20 sources)Loose -85-1936EtrmonqlGdtyw gastrointestinal disorders (1 source)Constipation, unspecified; Translations: [Constipation, unspecified] Onset: 54-13-4303VykufciqCfkix gastrointestinal disorders (3 sources)Diarrhea; Translations: [Diarrhea, unspecified]26-81-0516Iedgkqfn Other gastrointestinal disorders (4 sources)Diarrhea, unspecified; Translations: [Diarrhea]Onset: 05-21-2024 55-46-0538LekmtvhmKrytf nervous system disorders (20 sources)Carpal tunnel syndrome; Translations: [Carpal tunnel syndrome, unspecified upper limb]ChronicOther nervous system disorders (1 source)Carpal tunnel syndrome, unspecified upper limb; Translations: [Carpal tunnel syndrome G56.00]Onset: 10-12-2020 Resolved: 69-16-7970VworzluAtvqx nervous system disorders (1 source)Bilateral carpal tunnel syndrome; Translations: [Carpal tunnel syndrome, bilateral upper limbs]Onset: 27-14-9347HrxicazBjkto nervous system disorders (16 sources)Paresthesia of right upper limb; Translations: [Paresthesia of skin] 73-25-6522UukbdkeoJepxc nervous system disorders (10 sources)Acute postoperative pain; Translations: [Other acute postprocedural pain]62-13-1252FkmvwpavOvyzd non-traumatic joint disorders (2 sources)Pain of right shoulder joint; Translations: [Pain in right shoulder] Onset: 76-46-5638GgmiclmfQamtw non-traumatic joint disorders (1 source)Pain in right knee; Translations: [Pain of right knee joint]Onset: 17-48-5772CvabhsuxDuzqy nutritional; endocrine; and metabolic disorders (10 sources)Obesity; Translations: [Obesity, unspecified]40-31-9795ZucnlthVnuih nutritional; endocrine; and metabolic disorders (20 sources)Morbid zetfsxf50-67-0767UapgimnZdcsn nutritional; endocrine; and metabolic disorders (1 source)Obese class I; Translations: [Body mass index (BMI) 31.0-31.9, adult] Onset: 28-78-1991FeqawacFpydw nutritional; endocrine; and metabolic disorders (1 source)Body mass index 40+ - severely obese; Translations: [Body mass index (BMI) 60.0-69.9, adult]Onset: 38-33-7704WeriydnXelax nutritional; endocrine; and metabolic disorders (20 sources)H/O: diabetes mellitus; Translations: [Personal history of other endocrine, nutritional and metabolic disease]EpisodicOther nutritional; endocrine; and metabolic disorders (1 source)Personal history of other endocrine, nutritional and metabolic disease EpisodicOther screening for suspected conditions (not mental disorders or infectious disease) (2 sources)Cancer cervix screening status; Translations: [Encounter for screening for malignant neoplasm of cervix]80-64-4808QycdbnqiZxzwm upper respiratory infections (1 source)Chronic sinusitis; Translations: [Chronic sinusitis, unspecified] Onset: 91-49-2627BltembtBongg upper respiratory infections (19 sources)Streptococcal sore throat; Translations: [Streptococcal pharyngitis] Onset: 64-06-4431YqbimkolAafhlyo cyst (20 sources)Hemorrhagic cyst of ovary; Translations: [Unspecified ovarian cyst, unspecified side]98-23-2469EgllherkKxfchok cyst (1 source)Cyst of left ovary; Translations: [Cyst of left ovary]Residual codes; unclassified (20 sources)Edema of lower extremity; Translations: [Localized edema]Episodic Residual codes; unclassified (20 sources)Insomnia; Translations: [Insomnia, unspecified]EpisodicResidual codes; unclassified (2 sources)Insomnia, unspecifiedEpisodicResidual codes; unclassified (1 source)General finding of observation of patient; Translations: [Other general symptoms and signs]Onset: 80-96-5820BcrfpuzkNtfevdua codes; unclassified (13 sources)Noncompliance with treatment; Translations: [Noncompliance]Episodic Spondylosis; intervertebral disc disorders; other back problems (11 sources)Displacement of lumbar intervertebral disc without myelopathy; Translations: [Other intervertebral disc displacement, lumbar region]Onset: 357408-74-6472JfbyxhpQagdjxzaned; intervertebral disc disorders; other back problems (20 sources)Backache; Translations: [Dorsalgia, unspecified]Onset: 07-26-2022 54-49-3065HoudhirmTopebvh and strains (20 sources)Sprain of ligament of finger; Translations: [Unspecified sprain of unspecified finger, initial encounter]Onset: 13-77-9554HcjwawmkTrssoihiu-related disorders (20 sources)Lmnpcp82-64-3996MthfhhmOwrcxss on above:Added secondary to documentation in Social History.Added secondary to documentation in Social History.Suicide and intentional self-inflicted injury (1 source)Suicidal thoughts; Translations: [Suicidal ideations]Onset: 03-10-2022 EpisodicSuperficial injury; contusion (16 sources)Contusion of hip; Translations: [Contusion of left hip, initial encounter]Onset: 98-17-6195JydfjunuRlaogelvhmmn (20 sources)Bipolar (qualifier value)43-24-6343Lxtlnyg tract infections (20 sources)Pyelonephritis; Translations: [Urinary tract infectious disease] Onset: 950378-83-7680Gsshwzkb Past or Other Problems Problem ClassificationProblemDateDocumented DateEpisodic/ChronicFracture of lower limb (1 source)Unspecified fracture of left toe(s), initial encounter for closed fracture; Translations: [Toe fracture, left S92.532A]Onset: 11-24-2020 Resolved: 35-64-9050DaqcpllbTdgutuqbmrsy diseases of female pelvic organs (19 sources)Acute vaginitis; Translations: [Bacterial vaginosis]01-10-2019 EpisodicInfluenza (1 source)Influenza due to other identified influenza virus with other respiratory manifestationsOnset: 06-15-2021 Resolved: 80-85-2851DjjdoqxoXwsky connective tissue disease (12 sources)Radicular pain; Translations: [Neuralgia and neuritis, unspecified] Onset: 116693-91-9200DpgjhgqtTuwnr non-traumatic joint disorders (12 sources)Pain in right shoulder; Translations: [Pain in joint, shoulder region]Onset: 473426-52-9265VucsmlozGtquuvofg by nonmedicinal substances (1 source)Toxic effect of venom of bees, accidental (unintentional), initial encounter; Translations: [Anaphylactic reaction to bee sting T63.441A]Onset: 11-24-2020 Resolved: 76-74-3676PkmlvabzHhntxmsyni (except in labor) (9 sources)Sepsis; Translations: [Sepsis, unspecified organism]01-10-2019 EpisodicUnclassified (3 sources)Cough R05.9Onset: 03-02-2021 Resolved: 43-40-8318Yzowbxkhvhjo (1 source)Exposure to 2019 novel coronavirus; Translations: [Contact with and (suspected) exposure to COVID19]Unclassified (1 source)Noncompliance Z91.199 Results Test NameValueInterpretationReference RangeFacilityED Note-Physicianon 23-52-2230DE Note-PhysicianED Note-Physician Basic Information Time Seen: Treasure Burnette PA-C 12/26/2024 14:47 Chief Complaint Pt presents to ED with complaints of cough xweeks History of Present Illness Patient is a 34-year-old female with a history of asthma and smoking who presents to the ED with cough that has been ongoing for the past 2 weeks. Patient denies any known sick contacts. She describes the cough as being dry. She notes it is mild during the day but worsened at night. Patient notes as sociated laryngitis but denies a sore throat. She notes she has been using her breathing treatmentsat home approximately 1-2 doses more than normal with improvement in symptoms. She has also been using cough drops. Patient denies a sore throat, difficulty swallowing, chest pain, shortness of breath, or fever/chills. Review of Systems A 10 point review of systems is negative except as noted above. Medical and Surgical History: Reviewed and noted Social history: Lives at home Family History: Reviewed. Tobacco: Use Physical Exam Vitals & Measurements T: 36.8 ???C(Oral) HR: 94(Peripheral) RR: 20 BP: 120/69 SpO2: 98% HT: 149 cm WT: 94.5 kg BMI: 42.57 General: The patient appears well and in no apparent distress. Patient is resting comfortably on cart. Skin: Warm, dry, no pallor noted. Head: Normocephalic, atraumatic Neck: No JVD Eye: PERRLA, EOMI ENT: Moist mucous membranes. Mild posterior pharyngeal erythema, no exudate, no tonsillar swelling or mass, no uvula shift. No trismus no stridor. Tympanic membranes without erythema, bulging, perforation, or pus. No otorrhea. Respiratory: Lungs clear to auscultation bilaterally. No respiratory distress no accessory muscle use no obvious audible wheezing Chest Wall: no deformity Musculoskeletal: normal ROM, no deformity, no swelling GI: Soft no obvious distention. No rebound or rigidity. No guarding. No tenderness. Neurological: A&O moves all extremities equal strength and symmetry Psychiatric: Cooperative and appropriate Procedure []The patient has acute bronchitis/bronchiolitis and antibiotics were not prescribed or dispensed today.[SATISFIES MIPS PERFORMANCE] [X] The patient has acute bronchitis/bronchiolitis. Antibiotics were prescribed or dispensed because the patient meets one of the following: [MIPS PERFORMANCE EXCEPTION/EXCLUSION] [X] Patient has a medical reason for prescribing or dispensing an antibiotic. That reason is asthma(ex. COPD, bacterial infection, acute sinusitis, etc.). [] Patient is currently on antibiotics or has been in the last 30 days. [] Patient's visit resulted in an inpatient admission. []The patient has acute bronchitis/bronchiolitis and antibiotics were prescribed or dispensed today. [DOES NOT SATISFY MIPS PERFORMANCE] Medical Decision Making Patient is a 34-year-old female with a history of asthma and smoking who presents to the ED with cough that has been ongoing for the past 2 weeks. Patient is hemodynamically stable and afebrile. She is nontoxic-appearing. Rapid strep swab is negative. Chest x-ray is without any acute cardiopulmonary abnormalities. Symptoms consistent with bronchitis. As patient has been experiencing symptoms for greater than 10 days and does have underlying history of asthma, I do feel antibiotic treatment is appropriate at this time. Patient is prescribed azithromycin and Solu-Medrol. She notes adequate amounts of breathing treatments at home and was educated on symptomatic care. Patient will follow-up with her primary care provider and was advised to return to the ED with any new or worsening symptoms. She is agreeable with the plan and all questions were answered. It should be noted that the Medrol Dosepak does not show up in the prescribed medications from today's visit, however the nurse did call the pharmacy and confirmed this was sent appropriately. Assessment/Plan Asthmatic bronchitis (J45.909: Unspecified asthma, uncomplicated) Orders: azithromycin, = 1 packet(s), Oral, As Directed, as directed on package labeling, X 5 day(s), # 6 tab(s), Refills(s) 0, Pharmacy: [facility], 149, cm, 12/26/24 14:36:00 EDT, Height/Length Dosing, 94.5, kg, 12/26/24 14:36:00 EDT, Weight Dosing methylPREDNISolone, = 1 packet(s), Oral, Once, as directed on package labeling, # 21 tab(s), Refills(s) 0, Pharmacy: [facility], 149, cm, 12/26/24 14:36:00 EDT, Height/Length Dosing, 94.5, kg, 12/26/24 14:36:00 EDT, Weight Dosing Group A Strep by PCR Rapid Strep w/rfx XR Chest 2 Views Disposition Plan Patient Discharge Condition Stable Discharge Disposition Home Discharge Prescription List Prescriptions azithromycin 250 mg Tab 5-day Dose Pack (Z-Juan), 1 packet(s), Oral, As Directed Follow-up With When Contact Information KATLIN FERNANDEZ In 3 days 12/29/2024 EST [address] [place] [address]- Business (1) Additional Instructions: Call to schedule a follow-up appointment with your primary care provide (more content not included)...Premier HealthComment on above:Result Comment: Electronically Signed By: Treasure Burnette PA-C\.br\Date and Time Signed: 12/26/2517:19 EDT\.br\Electronically Co- Signed By: Treasure Burnette PA-C\.br\Date and Time Co-Signed: 12/26/24 18:20 EDT\.br\Electronically Co-Signed By: Juan Antonio Hooper MD\.br\Date and Time Co-Signed: 01/04/2521:48 ESTC Urineon [id number] identified Cx Nom (U)Microbiology PROCEDURE: Urine Culture [R1] SOURCE: U CleanCatch BODY SITE: COLLECTED DATE/TIME: 12/29/2024 01:32 EST RECEIVED DATE/TIME: 12/29/2024 01:50 EST START DATE/TIME: 12/29/2024 03:35 EST FREE TEXT SOURCE: Amaury Galindo DO, DO, Matthew M. FINAL REPORTS Final Report [] Verified Date/Time: 12/31/2024 06:26 EST <10,000 cfu/ml Mixed skin contaminants Performing Locations R1: This test was performed at: [facility], [address] [place] [address], [address] , , CxrtjaOlblbyAccess Hospital DaytonComment on above:Performed By: #### [id number] #### [facility] [address] [place] [address]JQBcd 30-86-4334Vwcdy gap [Moles/Vol]14 mmol/LNormal6-16Magruder HospitalComment on above:Performed By: #### [id number] #### [facility] [address] [place] [address] 41965JBS/Creat Ratio21 No SgurkZfbl66-78CqngnfMagruder Hospital Comment on above:Performed By: #### [id number] #### [facility] [address], [place] [address]Esyhdfe [Mass/Vol]8.8 mg/dLLow8.9-11.1FGood Samaritan HospitalComment on above:Performed By: #### [id number] #### [facility] [address], [place] [address]Jsmfsnqh [Moles/Vol]104 mmol/XQllclh603-671MgllahMagruder HospitalComment on above:Performed By: #### [id number] #### [facility] [address], [place] [address]FH7 [Moles/Vol]22 mmol/ZMtzwbv01-89ZardbcMagruder Hospital Comment on above:Performed By: #### [id number] #### [facility] [address], [place] [address]Ebfzwxtlrv [Mass/Vol]0.7 mg/dLNormal0.5-1.3FGood Samaritan HospitalComment on above:Performed By: #### [id number] #### [facility] [address], [place] [address]Gkzvxwk [Mass/Vol]111 mg/eICtthrm28-095LeoahfMagruder HospitalComment on above:Performed By: #### [id number] #### [facility] [address], [place] [address]Gksgserqk [Moles/Vol]3.5 mmol/LNormal3.5-5.3FGood Samaritan HospitalComment on above:Performed By: #### [id number] #### [facility] [address], [place] [address]Sojsmg [Moles/Vol]136 mmol/FKybpqk589-058QhcadgMagruder HospitalComment on above:Performed By: #### [id number] #### [facility] [address], [place] [address]Hrqc nitrogen [Mass/Vol]15 mg/dLNormal5-21Magruder HospitalComment on above:Performed By: #### [id number] #### [facility] [address] [place] [address] 199[address]BVF w/ Auto Diffon 30-11-3653Qodaoydx Absolute0.1 E9/LNormal 0.0-0.2FGood Samaritan HospitalComment on above:Performed By: #### [id number] #### [facility] [address] [place] [address]Rfpnvupqy/100 WBC (Bld)0.5 %Normal0.0-2.0Magruder HospitalComment on above:Performed By: #### [id number] #### [facility] [address] [place] [address] 24[address]Kkc Absolute0.1 E9/LNormal0.0-0.5FGood Samaritan Hospital Comment on above:Performed By: #### [id number] #### [facility] [address] [place] [address]Rhhgltungec/100 WBC (Bld)0.6 %Normal0.0-8.0Magruder HospitalComment on above:Performed By: #### [id number] #### [facility] [address] [place] [address]Auvfjpnpjho distribution width (RBC) [Ratio]12.4 %Normal 10.9-14.2FGood Samaritan HospitalComment on above:Performed By: #### [id number] #### [facility] [address] [place] [address]Aicfqydlwn (Bld) [Volume fraction]37.8 %Xdpfyc85.0-46.0Magruder HospitalComment on above:Performed By: #### [id number] #### [facility] [address] [place] [address]Nyeygyvxlw (Bld) [Mass/Vol]12.8 g/xNYftmnj39.0-16.0Mag[facility]uder HospitalComment on above:Performed By: #### [id number] #### [facility] [address] [place] [address]29[address]Mlwjw Absolute1.2 E9/LNormal1.0-4.0[facility] Comment on above:Performed By: #### [id number] #### [facility] [address] [place] [address] 186[address]Tqguejhbqic/100 WBC (Bld)8.3 %Low14.0-50.0Magruder HospitalComment on above:Performed By: #### [id number] #### [facility] [address] [place] [address] 51162SSF (RBC) [Entitic mass]29.9 hiGlorzv41.0-34.0[facility]uder HospitalComment on above:Performed By: #### [id number] #### [facility] [address] [place] [address] 36[address]GZVL (RBC) [Mass/Vol]34.0 g/yPYmmuox13.4-36.0Mag[facility]uder HospitalComment on above:Performed By: #### [id number] #### [facility] [address] [place] [address] 100[address]JRD (RBC) [Entitic vol]87.8 iSWlwamz42.0-100.0Mag[facility]uder HospitalComment on above:Performed By: #### [id number] #### [facility] [address] [place] [address] 269[address]Nhfq Absolute0.5 E9/LNormal0.2-1.0[facility] Comment on above:Performed By: #### [id number] #### [facility] [address] [place] [address] 398[address]Pxassxkye/100 WBC (Bld)3.8 %Low4.0-14.0Magruder HospitalComment on above:Performed By: #### [id number] #### [facility] [address] [place] [address]Ehezku Psycepfz78.3 E9/LHigh2.0-7.5FGood Samaritan Hospital Comment on above:Performed By: #### [id number] #### [facility] [address] [place] [address] 085[address]Tyjkcy Auto86.8 %High36.0-75.0[facility] Comment on above:Performed By: #### [id number] #### [facility] [address], [place] [address]Xwbzbbjq987.0 E9/QChwonl693.0-500.0[facility] Comment on above:Performed By: #### [id number] #### [facility] [address] [place] [address] 19[address]Rdplxond mean volume (Bld) [Entitic vol]7.5 fLNormal6.4-10.8 [facility]uder HospitalComment on above:Performed By: #### [id number] #### [facility] [address] [place] [address] 63761DYB4.3 E12/LNormal4.3-5.9Mag[facility]uder HospitalComment on above:Performed By: #### [id number] #### [facility] [address] [place] [address] 68048IZV93.1 E9/LHigh4.0-11.0Magruder HospitalComment on above:Performed By: #### [id number] #### [facility] [address] [place] [address]48[address]QE Clinical Summaryon [id number] Clinical SummaryED Clinical Summary [address] [address] ED Clinical Summary Person Information Name: TRACIE SAMUELS Floresita/[facility] Age: 34 Years : 1990 Sex: Female Language: Bangladeshi PCP: KATLIN FERNANDEZ DO Marital Status: Single Visit Id: Visit Reason: Cough; Vomiting; Nausea; n/v diarrhea Speciality: Acuity: 3 Enc Type: Emergency Med Service: Emergency Arrival: 12/28/2024 23:10:14 Discharge: 12/29/2024 04:11:28 LOS: 000 05:01 Checkin: 12/28/2024 23:10:14 Checkout: 12/29/2024 04:11:28 Dispo Type: Home (Routine DC) EVENTS: Event Name Event Status Request Date/Time Start Date/Time Complete Date/Time Arrive Complete 12/28/2024 23:10:14 12/28/2024 23:10:14 12/28/2024 23:10:14 Document Home Meds Request 12/28/2024 23:10:14 Triage Complete 12/28/2024 23:10:14 12/28/2024 23:29:57 12/28/2024 23:29:57 Registration Complete 12/28/2024 23:14:15 12/28/2024 23:14:15 12/28/2024 23:14:15 Reg Complete Request 12/28/2024 23:14:15 Reg Bed Request Complete 12/28/2024 23:14:15 12/28/2024 23:14:15 12/28/2024 23:14:15 Bed Assign Complete 12/28/2024 23:23:16 12/28/2024 23:23:16 12/28/2024 23:23:16 Dr Exam Complete 12/28/2024 23:23:16 12/28/2024 23:25:12 12/28/2024 23:25:12 RN Exam Complete 12/28/2024 23:23:16 12/29/2024 00:34:47 12/29/2024 00:34:47 Registration Request 12/28/2024 23:25:12 Dr Exam Complete 12/28/2024 23:31:13 12/28/2024 23:31:13 12/28/2024 23:31:13 Pending Labs Complete 12/28/2024 23:32:32 12/29/2024 01:32:03 Lab Complete 12/28/2024 23:32:32 12/29/2024 01:32:03 Urine Collect Complete 12/28/2024 23:32:32 12/29/2024 01:32:03 Meds Admin Request 12/28/2024 23:32:32 Pending Labs Complete 12/28/2024 23:35:57 12/29/2024 01:50:36 Lab Complete 12/28/2024 23:35:57 12/29/2024 01:50:36 Urine Collect Complete 12/28/2024 23:35:57 12/29/2024 01:50:36 Pending Labs Complete 12/29/2024 00:32:34 12/29/2024 00:32:34 12/29/2024 00:46:38 Lab Complete 12/29/2024 00:32:34 12/29/2024 00:32:34 12/29/2024 00:46:38 Pending Labs Complete 12/29/2024 01:38:02 12/29/2024 01:38:02 12/29/2024 02:07:00 Lab Complete 12/29/2024 01:38:02 12/29/2024 01:38:02 12/29/2024 02:07:00 Urine Collect Complete 12/29/2024 01:38:02 12/29/2024 01:38:02 12/29/2024 02:07:00 Meds Admin Complete 12/29/2024 01:57:39 12/29/2024 02:06:58 Pending Labs Inlab 12/29/2024 02:07:00 12/29/2024 02:07:00 Lab Inlab 12/29/2024 02:07:00 12/29/2024 02:07:00 Discharge Complete 12/29/2024 04:03:41 12/29/2024 04:11:32 12/29/2024 04:11:32 Transfer Complete 12/29/2024 04:11:32 12/29/2024 04:11:32 12/29/2024 04:11:32 ADDRESS: [address] [place] [address] [address] [facility] [id number] PHYS DOC NOTES: MEDICAL INFORMATION: Prescriptions Given: New Medications Printed Prescriptions nitrofurantoin (Macrobid 100 mg Cap) 1 Capsules By Mouth 2 times a day for 7 Days. Refills: 0. prochlorperazine (Compazine 10 mg oral tablet) 1 Tablets By Mouth 3 times a day for 7 Days. Refills: 0. Medications to Continue with No [...] 3 Milliliter Nebulized inhalation (aerosol) every 6 hoursas needed Shortness of breath or wheezing. albuterol (ProAir HFA 90 mcg/inh inhalation aerosol) 2 Puffs Inhalation 4 times a day as needed Shortness of breath or wheezing. azithromycin (azithromycin 250 mg Tab 5-day Dose Pack (Z-Juan)) 1 Packets By Mouth As Directed for 5Days. as directed on package labeling. Refills: 0. azithromycin (azithromycin 250 mg Tab) 250 Milligram By Mouth As Directed. Refills: 0. baclofen (baclofen 10 mg Tab) 0.5 Tablets By Mouth 3 times a day as needed Pain. Refills: 0. dicyclomine (Bentyl 10 mg Cap) 2 Capsules By Mouth 4 times a day. Refills: 0. famotidine (Pepcid 20 mg Tab) 1 Tablets By Mouth 2 times a day. Refills: 0. ibuprofen (ibuprofen 600 mg Tab) 1 Tablets By Mouth every 8 hours as needed Pain/Fever. Refills: 0. indomethacin lidocaine topical (lidocaine Top 5% film Patch) 1 Patches Topical every day. apply 12 hours on and 12 hours off daily. Refills: 0. meloxicam (meloxicam 15 mg oral tablet) By Mouth every day. meloxicam (meloxicam 15 mg oral tablet) 1 Tablets By Mouth every day. Refills: 0. metformin (metformin 500 mg oral tablet) 1 Tablets By Mouth As Directed. methylPREDNISolone (Medrol Dosepack 4 mg Tab) 1 Tablets By Mouth As Directed. Take as directed on pack. Refills: 0. mupirocin topical (mupirocin Top 2% Oint) 1 Application Topical 3 times a day. Refills: 0. naproxen (Naprosyn 500 mg Tab) 1 Tablets By Mouth 2 times a day as needed for pain. Refills: 0. naproxen (Naprosyn 500 mg Tab (more content not included)...NormalFisher Wyatt Medical CenterED Note-Physicianon [id number] Note-PhysicianED Note-Physician Basic Information Time Seen: Amaury Galindo DO 12/28/2024 23:31 Chief Complaint Pt to ED for c/o N/V/D and cough starting this morning. States unable to keep anything down. History of Present Illness 34-year-old female presenting for evaluation of nausea and vomiting diarrhea started today. She smells heavily of marijuana and admits to using earlier today. She admits to upper abdominal pain with this. She denies any history of abdominal surgeries. Review of Systems Constitutional: no fever, no chills, no sweats, no weakness HEENT: no sore throat, ear pain, sinus congestion Respiratory: no SOB, no cough, no orthopnea, no wheezing Cardiovascular: no chest pain, no palpitations, no edema Abdomen: Positive abdominal pain nausea vomiting diarrhea Extremities: no swelling Neurological: no dizziness, confusion, headache Additional ROS info: Except as noted above in the above review of systems and in the history of present illness all other systems have been reviewed and are negative or noncontributory Physical Exam Vitals & Measurements T: 36.8 ???C(Oral) HR: 98(Peripheral) RR: 18 BP: 144/98 SpO2: 100% HT: 150 cm WT: 93 kg BMI: 41.33 Constitutional: Moderate acute distress nontoxic, non ill appearing Heart: Regular rate and rhythm without murmurs, gallops or rubs Lungs: clear to auscultation bilaterally without wheezes, rales or rhonchi Abdomen: soft, nontender, nondistended abdomen Extremities: warm and dry bilaterally without pitting edema Neurological: awake, alert answers questions appropriately Medical Decision Making Patient given Zofran for nausea and IV fluid bolus. Obtain lab work to evaluate further. Labs showing leukocytosis likely stress-induced, alkaline phosphatase is elevated at 107 otherwise LFTs unremarkable. Urinalysis shows signs of urinary tract infection with bacteria hematuria pyuria.Patient had multiple episodes of nausea and vomiting did require Compazine here and then was able to pass p.o. challenge and was feeling better. Prescribed Compazine for her nitrofurantoin for urinary tract infection. She can avoid marijuana increase her intake of fluids and rest follow-up with PCPfor recheck next few days. She was discharged home. Assessment/Plan 1. Cannabinoid hyperemesis syndrome (R11.16: Cannabis hyperemesis syndrome) 2. UTI (urinary tract infection) (N39.0: Urinary tract infection, site not specified) Orders: nitrofurantoin, 100 mg = 1 cap(s), Oral, BID, X 7 day(s), # 14 cap(s), Refills(s) 0 ondansetron, 4 mg = 2 mL, Injection, IV Push, Once, Stop date 12/28/24 23:31:00 EST, STAT, Start date 12/28/24 23:31:00 EST, 12/28/24 23:31:00 EST prochlorperazine, 5 mg = 1 mL, Injection, IV Push, Once, Stop date 12/29/24 1:57:00 EST, STAT, Start date 12/29/24 1:57:00 EST, 12/29/24 1:57:00 EST prochlorperazine, = 1 tab(s), Oral, TID, X 7 day(s), # 21 tab(s), Refills(s) 0 Sodium Chloride 0.9% intravenous solution 1,000 mL, 1,000 mL, IV, 1,000 mL/hr, STAT, Start date 12/28/24 23:32:00 EST, 1 hour(s), Total volume (mL): 1,000, 93 kg, 1.97, m2 Basic Metabolic Panel CBC w/ Auto Diff eGFR Hepatic Function Panel Lipase Level U Beta Hcg Qual UA with Cult Rflx UA with Cult Rflx SP Urine Culture Disposition Plan Discharge Prescription List Prescriptions No active prescription medications Follow-up No qualifying data available Problem List/Past Medical History Ongoing Abdominal pain Bipolar Chronic gastritis Diabetes mellitus Extreme obesity 28-AUG-2013 12:48:08<$> Loose stools Lower abdominal pain Smoker Vomiting Historical ADHD (attention deficit hyperactivity disorder) Antral ulcer Asthma Kidney stone Seizure Procedure/Surgical History section, Cholecystectomy, EGD (esophagogastroduodenoscopy) gastric outlet reduction, Tuballigation. Medications Inpatient ondansetron 4 mg/2 mL Inj, 4 mg= 2 mL, IV Push, Once Sodium Chloride 0.9% IV Claire 1000 mL 1,000 mL, 1000 mL, IV Home albuterol 0.083% Inh Claire 3 mL, 2.5 mg= 3 mL, NEB, q6hr, PRN albuterol 0.083% Inh Claire 3 mL UD, 2.5 mg= 3 mL, Inhalation, q6hr azithromycin 250 mg Tab, 250 mg, Oral, As Directed azithromycin 250 mg Tab 5-day Dose Pack (Z-Juan), 1 packet(s), Oral, As Directed baclofen 10 mg Tab, 5 mg= 0.5 tab(s), Oral, TID, PRN Bentyl 10 mg Cap, 20 mg= 2 cap(s), Oral, QID Flomax 0.4 mg Cap, 0.4 mg= 1 cap(s), Oral, Daily Flomax 0.4 mg Cap, 0.4 mg= 1 cap(s), Oral, Daily ibuprofen 600 mg Tab, 600 mg= 1 tab(s), Oral, q8hr, PRN indomethacin lidocaine Top 5% film Patch, 1 patch(es), Topical, Daily Medrol Dosepack 4 mg Tab, 1 tab(s), Oral, As Directed meloxicam 15 mg oral tablet, 15 mg= 1 tab(s), Oral, Daily meloxicam 15 mg oral tablet, Oral, Daily metformin 500 mg oral tablet, 500 mg= 1 tab(s), Oral, As Directed Miralax 3350 17 gram packet, 17 gm, Oral, Daily Miralax 3350 17 gram packet, 17 gm, Oral, Daily mupirocin Top 2% Oint, 1 arely, Topical, TID (more content not included)...Premier HealthComment on above: Result Comment: Electronically Signed By: Amaury Galindo DO.br\Date and Time Signed: 12/29/24 04:05 ESTED Patient Summaryon [id number] Patient Summary ED Patient Summary [place] [id number] Patient Discharge Instructions Person Information Name: TRACIE SAMUELS Age: 34 Years Arrival Date: 12/28/2024 23:10:14 Discharge Diagnosis: 1:Cannabinoid hyperemesis syndrome; 2:UTI (urinary tract infection) Primary Care Physician: KATLIN FERNANDEZ DO Provider Information Primary Provider: Amaury Galindo DO Advanced Sanding Line Operator:None The exam and treatment you received in the Emergency Department were for an urgent problem and are not intended as complete care. It is important that you follow up with a doctor, nurse practitioner,or physician???s religious assistant for ongoing care. If your symptoms become worse or you do not improve asexpected and you are unable to reach your usual health care provider, you should return to the Emergency Department. We are available 24 hours a day. TRACIE SAMUELS has been given the following list of patient education materials, prescriptions and follow-up instructions: Follow-up Instructions: With: Address: When: KATLIN FERNANDEZ [address] [place], [place] [id number] [facility] (1) In 3 days In the event that this physician does not participate in your insurance network, please consult with your insurance company to find a nearby participating provider. Patient Education Materials: Cannabinoid Hyperemesis Syndrome; Urinary Tract Infection, Adult; Abdominal Pain During A MESSAGE TO ALL PATIENTS REGARDING OPIOIDS PRESCRIPTION OPIOIDS: WHAT YOU NEED TO KNOW Prescription opioids can be used to help relieve ljwufoff-cz-ykeuad pain and are often prescribed following a [...] guidance from the Food and Drug Administration (www.fda.gov/Drugs/ResourcesForYou). ??? Visit www.cdc.gov/drugoverdose to learn about the risks of opioids abuse and overdose (more content not included)...[facility] Panelon [id number] [Mass/Vol]4.2 g/dLNormal3.3-5.0[facility]uder HospitalComment on above:Performed By: #### [id number] #### [facility] [address], [place] [address]Kvkaekd/Globulin [Mass ratio]1.2 {ratio}Normal1.1-2.2FGood Samaritan HospitalComment on above:Performed By: #### [id number] #### [facility] [address], [place] [address]Zsj Nymf515 Int._Unit/CXenk46-57JpaotoMagruder Hospital Comment on above:Performed By: #### [id number] #### [facility] [address], [place] [address]DTY96 Int._Unit/LNormal6-46[facility] HospitalComment on above:Performed By: #### [id number] #### [facility] [address], [place] [address]XGO94 Int._Unit/LNormal5-43[facility] HospitalComment on above:Performed By: #### [id number] #### [facility] [address], [place] [address]Vrwp Direct0.2 mg/dLNormal0.0-0.4FGood Samaritan Hospital Comment on above:Performed By: #### [id number] #### [facility] [address], [place] [address]Srwj Indirect0.8 mg/dLNormal0.1-0.9[facility] Comment on above:Performed By: #### [id number] #### [facility] [address], [place] [address]Dfee Total1.0 mg/dLNormal0.0-1.1FGood Samaritan Hospital Comment on above:Performed By: #### [id number] #### [facility] [address], [place] [address]Nkvaawaf (S) [Mass/Vol]3.4 g/dLNormal1.4-4.0[facility]uder HospitalComment on above:Performed By: #### [id number] #### [facility] [address], [place] [address]Qvdfbwk [Mass/Vol]7.6 g/dLNormal6.0-7.8[facility]uder HospitalComment on above:Performed By: #### [id number] #### [facility] [address], [place] [address]Laalmv Levelon 69-30-4479Abusbu Lvl9 unit/CRlu44-86AlqijcMagruder HospitalComment on above:Performed By: #### [id number] #### [facility] [address], [place] [address]L BetaHcg Qualon 12-29-2024U beta hCG QlNegativePremier HealthComment on above:Performed By: #### [id number] #### [facility] [address], [place] [address]DH with Cult Rflxon 12-06-5591Yritg (U)YellowNormalYellowMagruder HospitalComment on above:Order Comment: Added by Discern Expert Result Comment: Microscopic readings are only performed on those samples that meet specific criteria set forth by [facility]. Performed By: #### [id number] #### [facility] [address], [place] [address]Zqfuoet (U) [Mass/Vol]NegativeNormalNegativeMagruder HospitalComment on above:Order Comment: Added by Discern ExpertPerformed By: #### [id number] #### [facility] [address], [place] [address]Mwytklp Ql (U)NegativeNormalNegKettering Health Greene Memorial Comment on above:Order Comment: Added by Discern ExpertPerformed By: #### [id number] #### [facility] [address], [place] [address]DT Blood2+ mg/dLAbnormalNegKettering Health Greene Memorial Comment on above:Order Comment: Added by Niurka ExpertPerformed By: #### [id number] #### [facility] [address], [place] [address]OR Bacteria3+ /HPFAbnormalTraceMagruder Hospital Comment on above:Order Comment: Added by Discern ExpertPerformed By: #### [id number] #### [facility] [address], [place] [address]GO ClarityTurbidAbnormalClearFGood Samaritan HospitalComment on above:Order Comment: Added by Discern ExpertPerformed By: #### [id number] #### [facility] [address], [place] [address]UY Leuk Aly319 Po/uLAbnormalNegativeMagruder HospitalComment on above:Order Comment: Added by Niurka ExpertPerformed By: #### [id number] #### [facility] [address], [place] [address]UH Mucous3+ CD:[id number] [facility]itus Medical CenterComment on above:Order Comment: Added by Niurka ExpertPerformed By: #### [id number] #### [facility] [address], [place] [address]RX NitriteNegativeNormalNegKettering Health Greene Memorial Comment on above:Order Comment: Added by Niurka ExpertPerformed By: #### [id number] #### [facility] [address], [place] [address]WS pH6.0Invalid Interpretation Code5.0-9.0[facility] HospitalComment on above:Order Comment: Added by Niurka ExpertPerformed By: #### [id number] #### [facility] [address], [place] [address]ZM Protein1+ mg/dLAbnormalNegKettering Health [facility] Memorial Comment on above:Order Comment: Added by Niurka ExpertPerformed By: #### [id number] #### Estevez [facility] [address], [place] [address]EA JVZ89-71Wfvucrjx6-5RvhvpcGood Samaritan HospitalComment on above:Order Comment: Added by Discern ExpertPerformed By: #### [id number] #### [facility] [address], [place] [address]RG Spec Grav1.039Invalid Interpretation Code1.005-1.030[facility] HospitalComment on above:Order Comment: Added by Discern Expert Performed By: #### [id number] #### [facility] [address] [place], [place] [address]UA Squam Epithelial>10Invalid Interpretation CodeMagruder HospitalComment on above:Order Comment: Added by Discern ExpertPerformed By: #### [id number] #### [facility] [address] [place], [place] [address]UA UrobilinogenNegativeNormalNegativeMagruder HospitalComment on above:Order Comment: Added by Discern ExpertPerformed By: #### [id number] #### [facility] [address] [place] [address]DZ RKG2-43Fkgfsuix8-6MvmkgiGood Samaritan HospitalComment on above:Order Comment: Added by Discern ExpertPerformed By: #### [id number] #### [facility] [address] [place] [address]Avzuwcvjpkjs (U) [Mass/Vol]NegativeNormalNegativeMagruder HospitalComment on above:Order Comment: Added by Discern ExpertPerformed By: #### [id number] #### [facility] [address] [place] [address]uYHZwe [id number] mL/min/1.73 c4Adhzvl>=59Mag[facility] HospitalComment on above:Performed By: #### [id number] #### [facility] [address] [place], [place] [id number] with Cult Rflx SPon [id number] Spec DescClean CatchNormal [facility]ons Medical CenterComment on above:Performed By: #### [id number] #### [facility] [address], [place] [address]VO Clinical Summaryon [id number] Clinical SummaryED Clinical Summary [address] [address] ED Clinical Summary Person Information Name: TRACIE SAMUELS [place] Age: 34 Years : 1990 Sex: Female Language: Bangladeshi PCP: KATLIN FERNANDEZ DO Marital Status: Single Visit Id: Visit Reason: Cough; COUGH, WHEEZING Speciality: Acuity: 4 Enc Type: Emergency Med Service: Emergency Arrival: 12/26/2024 14:30:31 Discharge: 12/26/2024 16:31:37 LOS: 000 02:01 Checkin: 12/26/2024 14:30:31 Checkout: 12/26/2024 16:31:37 Dispo Type: Home (Routine DC) EVENTS: Event Name Event Status Request Date/Time Start Date/Time Complete Date/Time Arrive Complete 12/26/2024 14:30:31 12/26/2024 14:30:31 12/26/2024 14:30:31 Document Home Meds Request 12/26/2024 14:30:31 Triage Complete 12/26/2024 14:30:31 12/26/2024 14:36:28 12/26/2024 14:36:28 Registration Complete 12/26/2024 14:32:57 12/26/2024 14:32:57 12/26/2024 14:32:57 Reg Complete Request 12/26/2024 14:32:57 Reg Bed Request Complete 12/26/2024 14:32:57 12/26/2024 14:32:57 12/26/2024 14:32:57 Bed Assign Complete 12/26/2024 14:46:43 12/26/2024 14:46:43 12/26/2024 14:46:43 Dr Exam Complete 12/26/2024 14:46:43 12/26/2024 14:47:26 12/26/2024 14:47:26 RN Exam Complete 12/26/2024 14:46:43 12/26/2024 15:31:41 12/26/2024 15:31:41 Registration Request 12/26/2024 14:47:26 X-Ray Complete 12/26/2024 15:00:43 12/26/2024 15:04:12 12/26/2024 15:12:52 Pending Labs Complete 12/26/2024 15:00:43 12/26/2024 15:38:45 Wet Read Request 12/26/2024 15:12:52 Pending Labs Inlab 12/26/2024 15:38:45 12/26/2024 15:38:45 Discharge Complete 12/26/2024 16:16:44 12/26/2024 16:31:43 12/26/2024 16:31:43 Transfer Complete 12/26/2024 16:31:43 12/26/2024 16:31:43 12/26/2024 16:31:43 ADDRESS: [address] [place] [address] [address] [facility] [id number] PHYS DOC NOTES: MEDICAL INFORMATION: Prescriptions Given: Medications to Continue Taking That Have Changed [facility] [address], [place] [id number], [phone] START: azithromycin (azithromycin 250 mg Tab 5-day Dose Pack (Z-Juan)) 1 Packets By Mouth As Directed for 5 Days. as directed on package labeling. Refills: 0. Other Medications START: azithromycin (azithromycin 250 mg Tab) 250 Milligram By Mouth As Directed. Refills: 0. Medications to Continue with No [...] 3 Milliliter Nebulized inhalation (aerosol) every 6 hoursas needed Shortness of breath or wheezing. albuterol (ProAir HFA 90 mcg/inh inhalation aerosol) 2 Puffs Inhalation 4 times a day as needed Shortness of breath or wheezing. baclofen (baclofen 10 mg Tab) 0.5 Tablets By Mouth 3 times a day as needed Pain. Refills: 0. dicyclomine (Bentyl 10 mg Cap) 2 Capsules By Mouth 4 times a day. Refills: 0. famotidine (Pepcid 20 mg Tab) 1 Tablets By Mouth 2 times a day. Refills: 0. ibuprofen (ibuprofen 600 mg Tab) 1 Tablets By Mouth every 8 hours as needed Pain/Fever. Refills: 0. indomethacin lidocaine topical (lidocaine Top 5% film Patch) 1 Patches Topical every day. apply 12 hours on and 12 hours off daily. Refills: 0. meloxicam (meloxicam 15 mg oral tablet) By Mouth every day. meloxicam (meloxicam 15 mg oral tablet) 1 Tablets By Mouth every day. Refills: 0. metformin (metformin 500 mg oral tablet) 1 Tablets By Mouth As Directed. methylPREDNISolone (Medrol Dosepack 4 mg Tab) 1 Tablets By Mouth As Directed. Take as directed on pack. Refills: 0. mupirocin topical (mupirocin Top 2% Oint) 1 Application Topical 3 times a day. Refills: 0. naproxen (Naprosyn 500 mg Tab) 1 Tablets By Mouth 2 times a day as needed for pain. Refills: 0. naproxen (Naprosyn 500 mg Tab) 1 Tablets By Mouth 2 times a day. Refills: 0. naproxen (naproxen 375 mg Tab) 1 Tablets By Mouth every 12 hours. Refills: 0. naproxen (naproxen 500 mg Tab) 1 Tablets By Mouth 2 times a day as needed Pain. with food. Refills:0. naproxen (naproxen 500 mg Tab) 1 Tablets By Mouth 2 times a day as needed Pain. Refills: 0. naproxen (naproxen 500 mg Tab) 1 Tablets By Mouth 2 times a day as needed Pain. Refills: 0. ondansetron (Zofran ODT 4 mg Tab) 1 Tablets By Mouth every 6 hours as needed Nausea/Vomiting. Refills: 0. ondansetron (Zofran ODT 4 mg Tab) 1 Tablets By Mouth every 6 hours as needed Nausea/Vomiting. Refills: 0. ondansetron (Zofran ODT 4 mg Tab-Dis) 1 Tablets By Mouth every 8 hours as needed Nausea/Vomiting. Refills: 0. ondansetron (Zofran ODT 4 mg Tab-Dis) 1 Tablets By Mouth every 8 hours. Refills: 0. onda (more content not included)...[facility] Patient Summaryon [id number] Patient SummaryED Patient Summary [address] [address] Patient Discharge Instructions Person Information Name: TRACIE SAMUELS Age: 34 Years Arrival Date: 12/26/2024 14:30:31 Discharge Diagnosis: Asthmatic bronchitis Primary Care Physician: KATLIN FERNANDEZ DO Provider Information Primary Provider: Advanced Sanding Line Operator:Treasure Burnette PA-C. The exam and treatment you received in the Emergency Department were for an urgent problem and are not intended as complete care. It is important that you follow up with a doctor, nurse practitioner,or physician???s religious assistant for ongoing care. If your symptoms become worse or you do not improve asexpected and you are unable to reach your usual health care provider, you should return to the Emergency Department. We are available 24 hours a day. TRACIE SAMUELS has been given the following list of patient education materials, prescriptions and follow-up instructions: Follow-up Instructions: With: Address: When: KATLIN FERNANDEZ [address] [place], [place] [id number] [facility] (1Uploadcare In 3 days 12/29/2024 Comments: Call to schedule a follow-up appointment with your primary care provider. Take the Z-Juan and MedrolDosepak as prescribed. Continue to use your breathing treatments as needed. You may use a cool-misthumidifier and honey to help with coughing. Return to the ED with any new or worsening symptoms. In the event that this physician does not participate in your insurance network, please consult with your insurance company to find a nearby participating provider. Patient Education Materials: Bronchospasm, Adult, Woag-gq-Xdai A MESSAGE TO ALL PATIENTS REGARDING OPIOIDS PRESCRIPTION OPIOIDS: WHAT YOU NEED TO KNOW Prescription opioids can be used to help relieve vveqmfvf-py-vickmj pain and are often prescribed following a [...] your pharmacy mail-back program, or flush them (more content not included)...NormalMagruder HospitalGrp A Strp PCRon [id number] A StrepNegativeNoalNegKettering Health Greene MemorialComment on above:Order Comment: Order Added on by Discern Rule.Result Comment: Testing performed using DNA amplification.Performed By: #### [id number] #### [facility] [address], [place] [address]Nlf A Strp Intrl CtrlPassPremier Health Comment on above:Order Comment: Order Added on by Discern Rule.Performed By: #### [id number] #### [facility] [address], [place] [address]Ujwlz Strep w/rfxon 12-26-2024S. pyogenes Ag IA Ql (Unsp spec) NegativeNormalUK HealthcareComment on above:Performed By: #### [id number] #### [facility] [address], [place] [address]EM Chest 2 Viewson [id number] Chest 2 ViewsExam Date/Time: 12/26/2024 15:12 EDT Reason for Exam: Cough Report IMPRESSION: NO RADIOGRAPHIC EVIDENCE OF ACTIVE DISEASE IN THE CHEST. CLINICAL INFORMATION: Cough COMPARISON: 10/20/2024 FINDINGS: Two views of the chest were obtained. Heart and mediastinum appear normal. The lungs appear clear. Visualized bony thorax and remainder of the chest appears unremarkable. Ordering Provider: Treasure Burnette FINAL REPORT Dictated: 12/26/2024 3:22 pm Tong Worthington MD Signed (Electronic Signature): 12/26/2024 3:22 pm Signed by: Tong Worthington MD Transcribed by: FATIMAH Technologist: [facility] Clinical Summaryon [id number] Clinical SummaryED Clinical Summary [place] [id number] ED Clinical Summary Person Information Name: TRACIE SAMUELS Flores[place]/[facility] Age: 34 Years : 1990 Sex: Female Language: Bangladeshi PCP: KATLIN FERNANDEZ DO Marital Status: Single Visit Id: Visit Reason: Buttock Injury; Fall; Back pain; BACK PAIN, FALL Speciality: Acuity: 4 Enc Type: Emergency Med Service: Emergency Arrival: 12/14/2024 22:39:14 Discharge: 12/15/2024 01:23:05 LOS: 000 02:44 Checkin: 12/14/2024 22:39:14 Checkout: 12/15/2024 01:23:05 Dispo Type: Home (Routine DC) EVENTS: Event Name Event Status Request Date/Time Start Date/Time Complete Date/Time Arrive Complete 12/14/2024 22:39:14 12/14/2024 22:39:14 12/14/2024 22:39:14 Document Home Meds Request 12/14/2024 22:39:14 Triage Complete 12/14/2024 22:39:14 12/14/2024 22:54:12 12/14/2024 22:54:12 Registration Complete 12/14/2024 22:41:45 12/14/2024 22:41:45 12/14/2024 22:41:45 Reg Complete Request 12/14/2024 22:41:45 Reg Bed Request Complete 12/14/2024 22:41:45 12/14/2024 22:41:45 12/14/2024 22:41:45 Bed Assign Complete 12/14/2024 22:55:35 12/14/2024 22:55:35 12/14/2024 22:55:35 Dr Exam Complete 12/14/2024 22:55:35 12/14/2024 23:12:56 12/14/2024 23:12:56 RN Exam Request 12/14/2024 22:55:35 Registration Request 12/14/2024 23:12:56 X-Ray Complete 12/14/2024 23:33:19 12/14/2024 23:34:56 12/14/2024 23:57:45 Meds Admin Complete 12/14/2024 23:35:11 12/15/2024 00:06:21 Wet Read Request 12/14/2024 23:57:45 Meds Admin Complete 12/15/2024 00:48:20 12/15/2024 01:20:49 Discharge Complete 12/15/2024 01:12:35 12/15/2024 01:23:12 12/15/2024 01:23:12 Transfer Complete 12/15/2024 01:23:12 12/15/2024 01:23:12 12/15/2024 01:23:12 ADDRESS: [address] [place] [address] [address] [facility] [id number] PHYS DOC NOTES: MEDICAL INFORMATION: Prescriptions Given: New Medications [facility] [address], [place] [id number], [phone] baclofen (baclofen 10 mg Tab) 0.5 Tablets By Mouth 3 times a day as needed Pain. Refills: 0. Medications to Continue Taking That Have Changed [facility] [address], [place] [id number], [phone] START: naproxen (naproxen 500 mg Tab) 1 Tablets By Mouth 2 times a day as needed Pain. Refills: 0. Other Medications START: naproxen (Naprosyn 500 mg Tab) 1 Tablets By Mouth 2 times a day as needed for pain. Refills:0. START: naproxen (Naprosyn 500 mg Tab) 1 Tablets By Mouth 2 times a day. Refills: 0. START: naproxen (naproxen 375 mg Tab) 1 Tablets By Mouth every 12 hours. Refills: 0. START: naproxen (naproxen 500 mg Tab) 1 Tablets By Mouth 2 times a day as needed Pain. with food. Refills: 0. START: naproxen (naproxen 500 mg Tab) 1 Tablets By Mouth 2 times a day as needed Pain. Refills: 0. Medications to Continue with No [...] 3 Milliliter Nebulized inhalation (aerosol) every 6 hoursas needed Shortness of breath or wheezing. albuterol (ProAir HFA 90 mcg/inh inhalation aerosol) 2 Puffs Inhalation 4 times a day as needed Shortness of breath or wheezing. azithromycin (azithromycin 250 mg Tab) 250 Milligram By Mouth As Directed. Refills: 0. dicyclomine (Bentyl 10 mg Cap) 2 Capsules By Mouth 4 times a day. Refills: 0. famotidine (Pepcid 20 mg Tab) 1 Tablets By Mouth 2 times a day. Refills: 0. ibuprofen (ibuprofen 600 mg Tab) 1 Tablets By Mouth every 8 hours as needed Pain/Fever. Refills: 0. indomethacin lidocaine topical (lidocaine Top 5% film Patch) 1 Patches Topical every day. apply 12 hours on and 12 hours off daily. Refills: 0. meloxicam (meloxicam 15 mg oral tablet) By Mouth every day. meloxicam (meloxicam 15 mg oral tablet) 1 Tablets By Mouth every day. Refills: 0. metformin (metformin 500 mg oral tablet) 1 Tablets By Mouth As Directed. methylPREDNISolone (Medrol Dosepack 4 mg Tab) 1 Tablets By Mouth As Directed. Take as directed on pack. Refills: 0. mupirocin topical (mupirocin Top 2% Oint) 1 Application Topical 3 times a day. Refills: 0. ondansetron (Zofran ODT 4 mg Tab) 1 Tablets By Mouth every 6 hours as needed Nausea/Vomiting. Refills: 0. ondansetron (Zofran ODT 4 mg Tab) 1 Tablets By Mouth every 6 hours as needed Nausea/Vomiting. Refills: 0. ondansetron (Zofran ODT 4 mg Tab-Dis) 1 Tablets By Mouth every 8 hours as needed Nausea/Vomiting. Refills: 0. ondansetron (Zofran ODT 4 mg Tab-Dis) 1 Tablets By Mouth every 8 hours. Refills: 0. ondansetron (Zofran ODT 4 mg Tab-Dis) 1 (more content not included)...Normal [facility] Medical CenterED Note-Physicianon [id number] Note-PhysicianED Note-Physician Basic Information Time Seen: Vasile POWER, Treasure Whitmore 12/14/2024 23:12 Chief Complaint states fell yesterday at work. states fell on tailbone and back. no otc meds at home History of Present Illness Patient is a 34-year-old female who presents to the ED with coccyx pain following a mechanical fallyesterday. Patient states she was at work when she was stepping out of a cooler and slipped, landing on her coccyx. Patient denies hitting her head or loss of consciousness. She notes since then she has had increased pain to her lower back and coccyx. She notes pain is worsened with sitting and improved with standing. Patient denies any numbness/tingling, saddle anesthesia, change urination, or loss of bowel control. She denies use of any pain medication prior to arrival. Review of Systems A 10 point review of systems is negative except as noted above. Medical and Surgical History: Reviewed and noted Social history: Lives at home Family History: Reviewed. Tobacco: Use Physical Exam Vitals & Measurements T: 36.8 ???C(Oral) HR: 78(Peripheral) RR: 16 BP: 152/65 SpO2: 96% HT: 149 cm WT: 94.5 kg BMI: 42.57 Nurses note and vital signs reviewed and noted. General: The patient appears in no apparent distress. Patient is pacing around room.. GCS = 15. Skin: Warm, dry, no pallor noted. Head: Normocephalic, atraumatic Neck: Supple, trachea mid-line, No cervical spinal tenderness. The patient has no step-offs or crepitus noted Eyes: PERRLA, EOMI ENT: No hess sign, no raccoon eyes Cardiovascular: Regular Rate and Rhythm, normal peripheral perfusion Respiratory: no distress, no accessory muscle use, no obvious wheezing Chest Wall: no tenderness, no flail chest Back: Tenderness to palpation diffusely over the sacrum. No cervical, thoracic, or lumbar tenderness to palpation. No evidence of step-offs or crepitus noted. Musculoskeletal: normal ROM, no tenderness, no swelling. Neurovascular intact. GI: Soft, no tenderness to palpation, no masses appreciated. No rebound, guarding, or rigidity noted. Neurological: A&Ox4, Moves all four extremities in all modalities with 5/5 strength. Normal speech, normal coordination, normal motor, normal sensory. Psychiatric: Cooperative Medical Decision Making Patient is a 34-year-old female who presents to the ED with coccyx pain following a mechanical fallyesterday. Patient is hemodynamically stable and afebrile. No evidence of cauda equina syndrome. Patient is given Toradol. Preliminary lumbar x-ray is without evidence for fracture or malalignment. Pr eliminary sacrum/coccyx x-ray is without evidence of sacral fracture or SI joint diastasis. Patientis updated on the results. She noted continued pain and is given Norflex. Patient was prescribed baclofen and naproxen. She will follow-up with her primary care provider. Patient was advised to return to the ED with any new or worsening symptoms. She is agreeable with the plan and all questions were answered. Assessment/Plan Accidental fall (W19.XXXA: Unspecified fall, initial encounter) Lumbosacral pain (M54.50: Low back pain, unspecified) Orders: ketorolac, 30 mg = 1 mL, Injection, IntraMuscular, Once, Stop date 12/14/24 23:34:00 EDT, STAT, Start date 12/14/24 23:34:00 EDT, 12/14/24 23:34:00 EDT orphenadrine, 60 mg = 2 mL, Injection, IntraMuscular, Once, Stop date 12/15/24 0:48:00 EDT, STAT, Start date 12/15/24 0:48:00 EDT, 12/15/24 0:48:00 EDT XR Sacrum and Coccyx Min 2 Views XR Spine Lumbosacral 2 or 3 Views Medications Administered Given ketorolac 30 mg/mL Inj 1 mL, 30 mg, IntraMuscular Disposition Plan Patient Discharge Condition stable Discharge Disposition home Discharge Prescription List Prescriptions baclofen 10 mg Tab, 5 mg= 0.5 tab(s), Oral, TID, PRN naproxen 500 mg Tab, 500 mg= 1 tab(s), Oral, BID, PRN Follow-up With When Contact Information KATLIN FERNANDEZ In 3 days 12/18/2024 EDT [address] [place] [address] [facility] (1) Additional Instructions: Call to schedule a follow-up appointment with your primary care provider. Use baclofen as prescribed for pain management. Baclofen is a muscle relaxer and can make you tired,therefore do not drive or operate heavy machinery with use. Return to the ED with any new or worsening symptoms. Patient Education Nausea and Vomiting, Adult, Ztdp-bw-Nbep Attestation Patient seen and evaluated by the physician religious assistant. Attending physician was present in the emergency department and supervised care. This visit was performed by both the physician and an APC. I performed all aspects of the MDM as documented. This report was transcribed using voice recognition software. Every effort was made to ensure accuracy, however, inadvertently computerized veterinarian mistakes may be present. I performed a substantive part of the MDM during the patient???s E/M visit. I personally made or approved the documented management plan and acknowledge i (more content not included)...Premier HealthComment on above: Result Comment: Electronically Signed By: Treasure Burnette PA-C\.br\Date and Time Signed: 12/15/2500:13 EDT\.br\Electronically Co-Signed By: Amaury Galindo DO\.br\Date and Time Co-Signed: 12/15/24 02:47 EDTED Patient Summaryon [id number] Patient SummaryED Patient Summary [place] [id number] Patient Discharge Instructions Person Information Name: TRACIE SAMUELS Age: 34 Years Arrival Date: 12/14/2024 22:39:14 Discharge Diagnosis: Accidental fall; Lumbosacral pain Primary Care Physician: KATLIN FERNANDEZ DO Provider Information Primary Provider: Advanced Sanding Line Operator:Treasure Burnette PA-C The exam and treatment you received in the Emergency Department were for an urgent problem and are not intended as complete care. It is important that you follow up with a doctor, nurse practitioner,or physician???s religious assistant for ongoing care. If your symptoms become worse or you do not improve asexpected and you are unable to reach your usual health care provider, you should return to the Emergency Department. We are available 24 hours a day. TRACIE SAMUELS has been given the following list of patient education materials, prescriptions and follow-up instructions: Follow-up Instructions: With: Address: When: KATLIN FERNANDEZ [address] [place], [place] [phone] [facility] (1) In 3 days 12/18/2024 Comments: Call to schedule a follow-up appointment with your primary care provider. Use baclofen as prescribed for pain management. Baclofen is a muscle relaxer and can make you tired, therefore do not drive or operate heavy machinery with use. Return to the ED with any new or worsening symptoms. In the event that this physician does not participate in your insurance network, please consult with your insurance company to find a nearby participating provider. Patient Education Materials: Nausea and Vomiting, Adult, Abnz-km-Jlfe A MESSAGE TO ALL PATIENTS REGARDING OPIOIDS PRESCRIPTION OPIOIDS: WHAT YOU NEED TO KNOW Prescription opioids can be used to help relieve axrjdlvf-nm-fyymwx pain and are often prescribed following a [...] take-back program or your pharmacy mail-back program, o (more content not included)...Premier HealthXR Sacrum and Coccyx Min 2 Viewson [id number] Sacrum and Coccyx Min 2 ViewsExam Date/Time: 12/14/2024 23:57 EDT Reason for Exam: Fall Report IMPRESSION: NEGATIVE SACRUM AND COCCYX. CLINICAL HISTORY: Fall. COMMENT: 4 views. The sacrum and coccyx appear normal without evidence of fracture or other bony abnormality. The sacroiliac joints and symphysis pubis appear unremarkable. Ordering Provider: Treasure Burnette FINAL REPORT Dictated: 12/15/2024 7:07 am Osmel Marino M.D. Signed (Electronic Signature): 12/15/2024 7:07 am Signed by: Osmel Marino M.D. Transcribed by: FATIMAH Technologist: [facility] HospitalXR Spine Lumbosacral 2 or 3 Viewson [id number] Spine Lumbosacral 2 or 3 ViewsExam Date/Time: 12/14/2024 23:57 EDT Reason for Exam: Fall Report IMPRESSION: NO EVIDENCE OF LUMBOSACRAL SPINE FRACTURE. CLINICAL HISTORY: Fall. COMMENT: 3 views. No interspace narrowing is evident. There is mild anterior hypertrophic spurring of the L4 and L5 vertebral bodies. The lumbosacral spine is otherwise unremarkable. No fracture or subluxation is noted. There are surgical clips in the right upper quadrant. Ordering Provider: Treasure Burnette FINAL REPORT Dictated: 12/15/2024 7:06 am Osmel Marino M.D. Signed (Electronic Signature): 12/15/2024 7:06 am Signed by: Osmel Marino M.D. Transcribed by: FATIMAH Technologist: [facility]C Urineon [id number] identified Cx Nom (U)Microbiology PROCEDURE: Urine Culture [R1] SOURCE: U CleanCatch BODY SITE: COLLECTED DATE/TIME: 10/20/2024 10:40 EDT RECEIVED DATE/TIME: 10/20/2024 12:28 EDT START DATE/TIME: 10/20/2024 12:28 EDT FREE TEXT SOURCE: John OPWER, Peter Sauceda. John POWER, Peter Sauceda. FINAL REPORTS Final Report [] [...] Locations R1: This test was performed at: [facility], [address] [place] [address], [address] , [place], CedwmmLqnquwPremier HealthComment on above:Performed By: #### [id number] #### [facility] [address] [place] [address] [id number] Note-Physicianon [id number] Note-PhysicianED Note-Physician Basic Information Time Seen: Peter Lopez PA-C. 10/20/2024 09:48 Chief Complaint patient presents with cough, body aches, chills, wheezing, nausea and vomiting x 2 weeks History of Present Illness 34-year-old female reports to the ED with cough congestion chills wheezing and nausea and vomiting.Reports been gone for 2 weeks. States that [...] other associated symptoms no other prior treatments orcomplaints. Family: Reviewed and noncontributory Social: lives at [...] breath. Due to concerns. Do lab work aswell as a chest x-ray. Lab work reviewed [...] an inpatient admission. []The patient has acute bronchitis/bronchiolitisand antibiotics were prescribed or dispensed today.[DOES NOT SATISFY MIPS PERFORMANCE] I, Peter Lopez PA-C had a jknr-nv-shxn interaction with the patient. I personally performed [...] Directed, # 6 tab(s), Refills(s) 0, Pharmacy: [facility], 149.9, cm, 10/20/24 9:52:00 EDT, Height/Length Dosing, 95.5, kg, 10/20/24 9:52:00 EDT, Weight Dosing methylPREDNISolone, = 1 tab(s), Oral, As Directed, Take as directed on pack, # 1 EA, Refills(s) 0, Pharmacy: [facility], 149.9, cm, 10/20/24 9:52:00 EDT, Height/Length Dosing, 95.5, kg, 10/20/24 9:52:00 EDT, Weight Dosing ondansetron, 4 mg = 2 mL, Injection, IV Push, Once, Stop date 10/20/24 9:58:00 EDT, STAT, Start date 10/20/24 9:58:00 EDT, 10/20/24 9:58:00 EDT ondansetron, 4 mg = 1 tab(s), Oral, q8hr, PRN Nausea/Vomiting, # 12 ta (more content not included)...Premier HealthComment on above:Result Comment: Electronically Signed By: John POWER, Peter Gupta\.br\Date and Time Signed: 10/21/2515:36 EDT\.br\Electronically Co-Signed By: Kanu Kelly DO\.br\Date and Time Co-Signed: 10/22/24 00:34 EDTB hCG Qualon 34-83-2982Uiem hCG QlNegativeNormalMagruder HospitalComment on above:Performed By: #### [id number] #### [facility] [address], [place] [address]ZRUso 65-74-3179Wkblv gap [Moles/Vol]10 mmol/LNormal6-16Magruder HospitalComment on above:Performed By: #### [id number] #### [facility] [address], [place] [address]BLR/Creat Ratio10 No AydkpYssbdd47-14WsbbrbMagruder HospitalComment on above:Performed By: #### [id number] #### [facility] [address], [place] [address]Eusvqxf [Mass/Vol]8.8 mg/dLLow8.9-11.1FGood Samaritan HospitalComment on above:Performed By: #### [id number] #### [facility] [address], [place] [address]Vkabuphb [Moles/Vol]107 mmol/XBzcokv391-439DctsmsMagruder HospitalComment on above:Performed By: #### [id number] #### [facility] [address], [place] [address]SD7 [Moles/Vol]27 mmol/FOhsxyy48-68ZuxmqfMagruder Hospital Comment on above:Performed By: #### [id number] #### [facility] [address], [place] [address]Tdwdwhpvjk [Mass/Vol]0.8 mg/dLNormal0.5-1.3FGood Samaritan HospitalComment on above:Performed By: #### [id number] #### [facility] [address], [place] [address]Psggfzs [Mass/Vol]93 mg/aQKydkyu31-744WpedaoMagruder HospitalComment on above:Performed By: #### [id number] #### [facility] [address], [place] [address]Liknmdvfn [Moles/Vol]3.9 mmol/LNormal3.5-5.3FGood Samaritan HospitalComment on above:Performed By: #### [id number] #### [facility] [address], [place] [address]Hgsnfz [Moles/Vol]140 mmol/FFhrubx984-675ZdaswwMagruder HospitalComment on above:Performed By: #### [id number] #### [facility] [address] [place] [address]Xbpp nitrogen [Mass/Vol]8 mg/dLNormal5-21Magruder HospitalComment on above:Performed By: #### [id number] #### [facility] [address] [place] [address]CKB w/ Auto Diffon 71-90-9126Kvjklxsf Absolute0.1 E9/LNormal 0.0-0.2FGood Samaritan HospitalComment on above:Performed By: #### [id number] #### [facility] [address] [place] [address]Tebcvzofs/100 WBC (Bld)0.8 %Normal0.0-2.0Magruder HospitalComment on above:Performed By: #### [id number] #### [facility] [address] [place] [address]Ana Absolute0.2 E9/LNormal0.0-0.5FGood Samaritan Hospital Comment on above:Performed By: #### [id number] #### [facility] [address] [place] [address]Mdwessfrvev/100 WBC (Bld)1.9 %Normal0.0-8.0Magruder HospitalComment on above:Performed By: #### [id number] #### [facility] [address] [place] [address]Grgvbwhtgej distribution width (RBC) [Ratio]12.4 %Normal 10.9-14.2FGood Samaritan HospitalComment on above:Performed By: #### [id number] #### [facility] [address] [place] [address]Pknapheybf (Bld) [Volume fraction]36.8 %Gtcntv81.0-46.0Magruder HospitalComment on above:Performed By: #### [id number] #### [facility] [address], [place] [address]Cmflegcwnz (Bld) [Mass/Vol]12.6 g/tAZwiylo11.0-16.0Magruder HospitalComment on above:Performed By: #### [id number] #### [facility] [address], [place] [address]Gsbbv Absolute2.8 E9/LNormal1.0-4.0[facility] Comment on above:Performed By: #### [id number] #### [facility] [address], [place] [address]Slgogppwdsi/100 WBC (Bld)32.0 %Vunvss95.0-50.0Magruder HospitalComment on above:Performed By: #### [id number] #### [facility] [address], [place] [address]DAH (RBC) [Entitic mass]29.8 yuQdhuzb59.0-34.0Magruder HospitalComment on above:Performed By: #### [id number] #### [facility] [address] [place] [address]NTGZ (RBC) [Mass/Vol]34.1 g/jGIkujcw66.4-36.0Magruder HospitalComment on above:Performed By: #### [id number] #### [facility] [address], [place] [address]NWR (RBC) [Entitic vol]87.4 cVEnqmbp70.0-100.0Mag[facility]uder HospitalComment on above:Performed By: #### [id number] #### [facility] [address], [place] [address]Yvpd Absolute0.6 E9/LNormal0.2-1.0[facility] Comment on above:Performed By: #### [id number] #### [facility] [address], [place] [address]Obthqtfda/100 WBC (Bld)7.0 %Normal4.0-14.0Magruder HospitalComment on above:Performed By: #### [id number] #### [facility] [address], [place] [address]Nochyr Absolute5.2 E9/LNormal2.0-7.5FGood Samaritan Hospital Comment on above:Performed By: #### [id number] #### [facility] [address], [place] [address]Pcdcjk Auto58.3 %Fersxo24.0-75.0[facility] Comment on above:Performed By: #### [id number] #### [facility] [address], [place] [address]Sovcdomo335.0 E9/ETdjlyc179.0-500.0[facility] Comment on above:Performed By: #### [id number] #### [facility] [address], [place] [address]Pgvcbziq mean volume (Bld) [Entitic vol]7.2 fLNormal6.4-10.8 [facility] HospitalComment on above:Performed By: #### [id number] #### [facility] [address], [place] [address]MOH5.2 E12/LLow4.3-5.9Mag[facility]uder HospitalComment on above:Performed By: #### [id number] #### [facility] [address], [place] [address]AUM9.9 E9/LNormal4.0-11.0Mag[facility]uder HospitalComment on above:Performed By: #### [id number] #### [facility] [address], [place] [address]SM Clinical Summaryon [id number] Clinical SummaryED Clinical Summary [address], [place] [address] ED Clinical Summary Person Information Name: TRACIE SAMUELS [place] Age: 34 Years : 1990 Sex: Female Language: Bangladeshi PCP: KATLIN FERNANDEZ DO Marital Status: Single [...] 10/20/2024 12:24:20 10/20/2024 12:24:20 10/20/2024 12:24:20 ADDRESS: [address] [place] [address] [address] [facility] [id number] PHYS DOC NOTES: MEDICAL INFORMATION: Prescriptions Given: New Medications [facility], [address] [facility] [place], [place] [id number], [phone] azithromycin (azithromycin 250 mg Tab) 250 Milligram By Mouth As Directed. Refills: 0. methylPREDNISolone (Medrol Dosepack 4 mg Tab) 1 Tablets By Mouth As Directed. Take as directed on pack. Refills: 0. Medications to Continue Taking That Have [facility]anged [facility], [address] [place], [place] [id number], [phone] START: ondansetron (Zofran ODT 4 mg Tab-Dis) [...] 3 Milliliter Nebulized inhalation (aerosol) every 6 hoursas needed Shortness of breath or wheezing. albuterol [...] every 8 hours as needed Pain/Fever. Refil (morecontent not included)...[facility] ED Patient Summaryon [id number] Patient SummaryED Patient Summary [address] [address] Patient Discharge Instructions Person Information Name: TRACIE SAMUELS Age: 34 Years Arrival Date: 10/20/2024 09:43:32 Discharge Diagnosis: Bronchitis Primary Care Physician: AKTLIN FERNANDEZ DO Provider Information Primary Provider: Kanu Kelly DO Advanced Sanding Line Operator:Peter Lopez PA-C The exam and treatment you received in the Emergency Department were for an urgent problem and are not intended as complete care. It is important that you follow up with a doctor, nurse practitioner,or physician???s religious assistant for ongoing care. If your symptoms become worse or you do not improve asexpected and you are unable to reach your usual health care provider, you should return to the Emergency Department. We are available 24 hours a day. TRACIE SAMUELS has been given the following list of patient education materials, prescriptions and follow-up instructions: Follow-up Instructions: With: Address: When: KATLIN FERNANDEZ [address] [place] [address] [facility] (1) In 3 days 10/23/2024 Comments: Call Dr for diagnosis based follow up In the event that this physician does not participate in your insurance network, please consult with your insurance company to find a nearby participating provider. Patient Education Materials: Nausea and Vomiting, Adult, Wmqr-fk-Tsxq; Acute Bronchitis, Adult A MESSAGE TO ALL PATIENTS REGARDING OPIOIDS PRESCRIPTION OPIOIDS: WHAT YOU NEED TO KNOW Prescription opioids can be used to help relieve fymxlvtu-oj-hjusqu pain and are often prescribed following a [...] guidance from the Food and Drug Administration (www.fda.gov/Drugs/ResourcesForYou). ??? Visit www.cdc.gov/drugoverdose to learn about the risks of opioids abuse and overdose. ??? If you b (more content not included)...NormalMagruder Hospital Extra Blueon 83-98-8074Qfec Collected PlasmaYesInvalid Interpretation CodeMagruder HospitalComment on above:Performed By: #### [id number] #### [facility] [address], [place] [address]Nix Func Panelon 05-76-6968Bynvuxi [Mass/Vol]4.1 g/dLNormal 3.3-5.0Mag[facility]uder HospitalComment on above:Performed By: #### [id number] #### [facility] [address], [place] [address]Gnsqxmm/Globulin [Mass ratio]1.2 {ratio}Normal1.1-2.2FGood Samaritan HospitalComment on above:Performed By: #### [id number] #### [facility] [address], [place] [address]Aav Phos97 Int._Unit/XOmacak84-72MfakrcMagruder Hospital Comment on above:Performed By: #### [id number] #### [facility] [address], [place] [address]PQH55 Int._Unit/LNormal6-46[facility]uder HospitalComment on above:Performed By: #### [id number] #### [facility] [address], [place] [address]HKF49 Int._Unit/LNormal5-43[facility] HospitalComment on above:Performed By: #### [id number] #### [facility] [address], [place] [address]Sdsf Direct0.0 mg/dLNormal0.0-0.4FGood Samaritan Hospital Comment on above:Performed By: #### [id number] #### [facility] [address], [place] [address]Tydw Indirect0.4 mg/dLNormal0.1-0.9[facility] Comment on above:Performed By: #### [id number] #### [facility] [address], [place] [address]Ioyu Total0.4 mg/dLNormal0.0-1.1FGood Samaritan Hospital Comment on above:Performed By: #### [id number] #### [facility] [address], [place] [address]Qgzswwkq (S) [Mass/Vol]3.3 g/dLNormal1.4-4.0Mag[facility]uder HospitalComment on above:Performed By: #### [id number] #### [facility] [address], [place] [address]Aesnurv [Mass/Vol]7.4 g/dLNormal6.0-7.8[facility]uder HospitalComment on above:Performed By: #### [id number] #### [facility] [address], [place] [address]Pbjvjm Levelon 38-73-0704Hbtmfh Lvl14 unit/BHfsdwv04-05DkgmbzMagruder HospitalComment on above:Performed By: #### [id number] #### [facility] [address], [place] [address]KT with Cult Rflxon 99-75-6844Fmclz (U)Light-YellowNormalYellow [facility] HospitalComment on above:Result Comment: Microscopic readings are only performed on those samples that meet specific criteria set forth by [facility].Performed By: #### [id number] #### [facility] [address], [place] [address]Haqprub (U) [Mass/Vol]NegativeNormalNegativeMagruder HospitalComment on above:Performed By: #### [id number] #### [facility] [address], [place] [address]Xiezhpo Ql (U)NegativeNormalNegativeMagruder Hospital Comment on above:Performed By: #### [id number] #### [facility] [address], [place] [address]OL Blood3+ mg/dLAbnormalNegKettering Health Greene Memorial Comment on above:Performed By: #### [id number] #### [facility] [address], [place] [address]XP ClarityTurbidAbnormalClearFisher [facility] Samaritan HospitalComment on above:Performed By: #### [id number] #### [facility] [address], [place] [address]VU Leuk Est75 Po/uLAbnormalNegativeMagruder Hospital Comment on above:Performed By: #### [id number] #### [facility] [address], [place] [address]PZ MucousTraceNormalNegKettering Health Greene MemorialComment on above:Performed By: #### [id number] #### [facility] [address], [place] [address]FI NitriteNegativeNormalNegKettering Health Greene Memorial Comment on above:Performed By: #### [id number] #### [facility] [address] [place] [address]ZA pH8.0Invalid Interpretation Code5.0-9.0[facility] HospitalComment on above:Performed By: #### [id number] #### [facility] [address] [place] [address]AZ ProteinTraceAbnormalNegKettering Health Greene Memorial Comment on above:Performed By: #### [id number] #### [facility] [address] [place], [place] [id number] PFC4-29Iuquumiv7-3Qmtghg [facility]itan HospitalComment on above:Performed By: #### [id number] #### [facility] [address] [place] [address]PB Spec Grav1.020Invalid Interpretation Code1.005-1.030[facility] HospitalComment on above:Performed By: #### [id number] #### [facility] [address] [place] [address]UC Squam Epithelial>10Invalid Interpretation CodeMagruder HospitalComment on above:Performed By: #### [id number] #### [facility] [address] [place] [address]MN UrobilinogenNegativeNoyadkin valley community hospitalNegKettering Health Greene MemorialComment on above:Performed By: #### [id number] #### [facility] [address] [place] [address]IR TMA1-7Ojwcak9-5HrvsavGood Samaritan HospitalComment on above: Performed By: #### [id number] #### [facility] [address] [place] [address]Tqgarggmeelt (U) [Mass/Vol]NegativeNormalNegKettering Health Greene MemorialComment on above:Performed By: #### [id number] #### [facility] [address] [place] [address]AI Spec DescClean CatchNormAccess Hospital DaytonComment on above:Performed By: #### [id number] #### [facility] [address] [place] [address] 314[address]CY Chest 2 Viewson [id number] Chest 2 ViewsExam Date/Time: 10/20/2024 11:03 EDT Reason for Exam: [...] Osmel Marino M.D. Transcribed by: FATIMAH Technologist: [facility] HospitaleGFRon 37-48-1019wNPI71 mL/min/1.73 m3Ikvlhv>=59Magruder HospitalComment on above:Performed By: #### [id number] #### [facility] [address] [place] [address]C Urineon 71-28-2312Dsmbvsah identified Cx Nom (U)Microbiology PROCEDURE: Urine Culture [R1] SOURCE: U CleanCatch BODY SITE: COLLECTED DATE/TIME: 10/07/2024 18:55 EDT RECEIVED DATE/TIME: 10/07/2024 19:56 EDT START DATE/TIME: 10/07/2024 19:56 EDT FREE TEXT SOURCE: Kanu Kelly DO, DO, Kanu FINAL REPORTS Final Report [] Verified Date/Time: 10/09/2024 11:29 EDT <10,000 cfu/ml Mixed skin contaminants Performing Locations R1: This test was performed at: [facility], [address] [place] [address], [address] , , BuoledFmexfqPremier HealthComment on above:Performed By: #### [id number] #### [facility] [address], [place] [address]L hCG Qualon 89-74-1649Cbor hCG QlNegativeNormalMagruder HospitalComment on above:Performed By: #### [id number] #### [facility] [address], [place] [address]PSMxn 93-91-3394Uhrvs gap [Moles/Vol]9 mmol/LNormal6-16[facility] HospitalComment on above:Performed By: #### [id number] #### [facility] [address], [place] [address]FFV/Creat Ratio16 No QniphJegstm88-46JnfdvlMagruder HospitalComment on above:Performed By: #### [id number] #### [facility] [address], [place] [address]Hysizuf [Mass/Vol]8.7 mg/dLLow8.9-11.1FGood Samaritan HospitalComment on above:Performed By: #### [id number] #### [facility] [address], [place] [address]Dhiqsaur [Moles/Vol]107 mmol/YYrrvxj069-977DdfwuwMagruder HospitalComment on above:Performed By: #### [id number] #### [facility] [address], [place] [address]YT9 [Moles/Vol]26 mmol/BFgxvqu62-80MwvpnhMagruder Hospital Comment on above:Performed By: #### [id number] #### [facility] [address], [place] [address]Uovruecijt [Mass/Vol]0.8 mg/dLNormal0.5-1.3FGood Samaritan HospitalComment on above:Performed By: #### [id number] #### [facility] [address], [place] [address]Whwvgjm [Mass/Vol]104 mg/cIZgxksf69-416CposhtMagruder HospitalComment on above:Performed By: #### [id number] #### [facility] [address], [place] [address]Cflrcgthp [Moles/Vol]3.7 mmol/LNormal3.5-5.3FGood Samaritan HospitalComment on above:Performed By: #### [id number] #### [facility] [address], [place] [address]Aowocn [Moles/Vol]138 mmol/OHzicuj643-366MlnuajMagruder HospitalComment on above:Performed By: #### [id number] #### [facility] [address], [place] [address]Hhwm nitrogen [Mass/Vol]13 mg/dLNormal5-21Mag[facility] HospitalComment on above:Performed By: #### [id number] #### [facility] [address], [place] [address]ZLC w/ Auto Diffon 85-89-8314Bqxbdeoi Absolute0.1 E9/LNormal 0.0-0.2FGood Samaritan HospitalComment on above:Performed By: #### [id number] #### [facility] [address], [place] [address]Yiujxftjv/100 WBC (Bld)1.1 %Normal0.0-2.0[facility] HospitalComment on above:Performed By: #### [id number] #### [facility] [address], [place] [address]Haw Absolute0.2 E9/LNormal0.0-0.5FGood Samaritan Hospital Comment on above:Performed By: #### [id number] #### [facility] [address], [place] [address]Voozudbktsr/100 WBC (Bld)1.7 %Normal0.0-8.0[facility] HospitalComment on above:Performed By: #### [id number] #### [facility] [address], [place] [address]Pdqzdkfifmf distribution width (RBC) [Ratio]12.2 %Normal 10.9-14.2FGood Samaritan HospitalComment on above:Performed By: #### [id number] #### [facility] [address] [place] [address]Kxowbtznxt (Bld) [Volume fraction]35.2 %Bwrcxp36.0-46.0[facility] HospitalComment on above:Performed By: #### [id number] #### [facility] [address] [place] [address]Wcouzflgey (Bld) [Mass/Vol]12.2 g/zKRrujoh99.0-16.0[facility] HospitalComment on above:Performed By: #### [id number] #### [facility] [address] [place] [address]Rjsff Absolute3.6 E9/LNormal1.0-4.0[facility] Comment on above:Performed By: #### [id number] #### [facility] [address] [place] [address]Hbuqwdvgmcn/100 WBC (Bld)34.2 %Parkkf70.0-50.0[facility] HospitalComment on above:Performed By: #### [id number] #### [facility] [address] [place] [address]KMT (RBC) [Entitic mass]30.8 swDpgzft13.0-34.0[facility] HospitalComment on above:Performed By: #### [id number] #### [facility] [address] [place] [address]UDNQ (RBC) [Mass/Vol]34.7 g/fMLqehzj11.4-36.0[facility] HospitalComment on above:Performed By: #### [id number] #### [facility] [address] [place] [address]REZ (RBC) [Entitic vol]88.7 hSVqfcun64.0-100.0[facility] HospitalComment on above:Performed By: #### [id number] #### [facility] [address], [place] [address]Naqs Absolute0.5 E9/LNormal0.2-1.0[facility] Comment on above:Performed By: #### [id number] #### [facility] [address], [place] [address]Wdksdxwmp/100 WBC (Bld)5.3 %Normal4.0-14.0[facility] HospitalComment on above:Performed By: #### [id number] #### [facility] [address], [place] [address]Uwgpfh Absolute6.0 E9/LNormal2.0-7.5FGood Samaritan Hospital Comment on above:Performed By: #### [id number] #### [facility] [address], [place] [address]Mlhzgb Auto57.7 %Ivguml91.0-75.0[facility] Comment on above:Performed By: #### [id number] #### [facility] [address], [place] [address]Lffqzsxs263.0 E9/JCbmkcf078.0-500.0[facility] Comment on above:Performed By: #### [id number] #### [facility] [address], [place] [address]Mxqhxamo mean volume (Bld) [Entitic vol]7.2 fLNormal6.4-10.8 [facility] HospitalComment on above:Performed By: #### [id number] #### [facility] [address], [place] [address]CMM5.0 E12/LLow4.3-5.9[facility] HospitalComment on above:Performed By: #### [id number] #### [facility] [address] [place] [address]APW11.4 E9/LNormal4.0-11.0[facility] HospitalComment on above:Performed By: #### [id number] #### [facility] [address], [place] [address]PB Clinical Summaryon [id number] Clinical SummaryED Clinical Summary [address] [address] ED Clinical Summary Person Information Name: TRACIE SAMUELS [place] Age: 34 Years : 1990 Sex: Female Language: Bangladeshi PCP: KATLIN FERNANDEZ DO Marital Status: Single [...] 10/07/2024 21:12:39 10/07/2024 21:12:39 10/07/2024 21:12:39 ADDRESS: [address] [place] [address] [address] [facility] [id number] PHYS DOC NOTES: Addendum by Jass Meek DO on October 07, 2024 21:02:52 EDT MEDICAL INFORMATION: Prescriptions Given: New Medications [facility], [address] [place], [place] [id number], [phone] ibuprofen (ibuprofen 600 mg Tab) 1 Tablets By Mouth every 8 hours as needed Pain/Fever. Refills: 0. nitrofurantoin (nitrofurantoin macrocrystals-monohydrate 100 mg Cap) 1 Capsules By Mouth 2 times a day for 3 Days. Refills: 0. Medications to Continue Taking That Have Changed [facility], [address] [place], [place] [id number], [phone] START: ondansetron (Zofran ODT 4 mg Tab-Dis) [...] 0. albuterol (albuterol 0.083% (more content not included)...[facility] CenterED Note-Physicianon [id number] Note-PhysicianED Note-Physician Basic Information Time Seen: Kanu Kelly DO 10/07/2024 18:37 Chief Complaint Pt. presents to the ed wt c/o abominal pain , nausea and vomiting [...] stone Seizure Procedure/Surgical History section, Cholecystectomy, EGD (esophagogastroduodenoscopy) gastric outlet reduction, Tuballigation. Medications Inpatient ketorolac 30 mg/mL Inj 1 [...] Oral, q6hr, PRN Zof (more content not included)...Premier HealthComment on above:Result Comment: Electronically Signed By: Jass Meek DO\.br\Date and Time Signed: 10/07/24 21:03 EDTED Note-PhysicianED Note-Physician Basic Information Time Seen: Kanu Kelly DO 10/07/2024 18:37 Chief Complaint Pt. presents to the ed wt c/o abominal pain , nausea and vomiting [...] stone Seizure Procedure/Surgical History section, Cholecystectomy, EGD (esophagogastroduodenoscopy) gastric outlet reduction, Tuballigation. Medications Inpatient ketorolac 30 mg/mL Inj 1 [...] Oral, q6hr, PRN Zof (more content not included)...NormalFisher Emmons Medical CenterComment on above:Result Comment: Electronically Signed By: Kanu Kelly DO\.br\Date and Time Signed: 10/07/24 18:44EDTED Patient Summaryon [id number] Patient Summary ED Patient Summary [address] [address] Patient Discharge Instructions Person Information Name: TRACIE SAMUELS Age: 34 Years Arrival Date: 10/07/2024 18:14:40 Discharge Diagnosis: Flank pain; Vomiting Primary Care Physician: KATLIN FERNANDEZ DO Provider Information Primary Provider: Kanu Kelly DO Advanced Sanding Line Operator:None The exam and treatment you received in the Emergency Department were for an urgent problem and are not intended as complete care. It is important that you follow up with a doctor, nurse practitioner,or physician???s religious assistant for ongoing care. If your symptoms become worse or you do not improve asexpected and you are unable to reach your usual health care provider, you should return to the Emergency Department. We are available 24 hours a day. TRACIE SAMUELS has been given the following list of patient education materials, prescriptions and follow-up instructions: Follow-up Instructions: With: Address: When: KATLIN FERNANDEZ [address] [place] [address] [facility] ([facility] In 3 days 10/10/2024 Comments: Call the [...] opioids can be used to help relieve juyoumpn-xk-boruzs pain and are often prescribed following a [...] how to manage (more content not included)... NormalMagruder HospitalExtra Blueon 85-28-7551Mwti Collected PlasmaYes Invalid Interpretation CodeMagruder HospitalComment on above:Performed By: #### [id number] #### [facility] [address], [place] [address]Lrl Func Panelon 47-67-9562Obvyfqk [Mass/Vol]3.9 g/dLNormal 3.3-5.0Magruder HospitalComment on above:Performed By: #### [id number] #### [facility] [address], [place] [address]Aeildch/Globulin [Mass ratio]1.3 {ratio}Normal1.1-2.2FGood Samaritan HospitalComment on above:Performed By: #### [id number] #### [facility] [address], [place] [address]Mre Vjkk657 Int._Unit/ZOhca24-13JwhcruMagruder Hospital Comment on above:Performed By: #### [id number] #### [facility] [address], [place] [address]EEL67 Int._Unit/LNormal6-46Magruder HospitalComment on above:Performed By: #### [id number] #### [facility] [address], [place] [address]TQI62 Int._Unit/LNormal5-43Mag[facility]uder HospitalComment on above:Performed By: #### [id number] #### [facility] [address], [place] [address]Toub Direct0.0 mg/dLNormal0.0-0.4FGood Samaritan Hospital Comment on above:Performed By: #### [id number] #### [facility] [address], [place] [address]Lbau Indirect0.3 mg/dLNormal0.1-0.9[facility] Comment on above:Performed By: #### [id number] #### [facility] [address], [place] [address]Xlxj Total0.3 mg/dLNormal0.0-1.1FGood Samaritan Hospital Comment on above:Performed By: #### [id number] #### [facility] [address], [place] [address]Nkoihmlk (S) [Mass/Vol]3.1 g/dLNormal1.4-4.0Magruder HospitalComment on above:Performed By: #### [id number] #### [facility] [address] [place] [address]Joomvku [Mass/Vol]7.0 g/dLNormal6.0-7.8Magruder HospitalComment on above:Performed By: #### [id number] #### [facility] [address], [place] [address]Guzika Levelon 19-72-7032Nctflp Lvl24 unit/CMuieea12-55LbglesMagruder HospitalComment on above:Performed By: #### [id number] #### [facility] [address], [place] [address]EN with Cult Rflxon 49-71-0750Ergon (U)Light-YellowNormalYellow [facility]uder HospitalComment on above:Result Comment: Microscopic readings are only performed on those samples that meet specific criteria set forth by [facility].Performed By: #### [id number] #### [facility] [address], [place] [address]Szuhtsd (U) [Mass/Vol]NegativeNormalNegativeMagruder HospitalComment on above:Performed By: #### [id number] #### [facility] [address], [place] [address]Ueukrqr Ql (U)NegativeNormalNegativeMagruder Hospital Comment on above:Performed By: #### [id number] #### [facility] [address], [place] [address]OU BloodTraceAbnormalNegativeMagruder HospitalComment on above:Performed By: #### [id number] #### [facility] [address], [place] [address]TP BacteriaTraceNormalTraceMagruder HospitalComment on above:Performed By: #### [id number] #### [facility] [address], [place] [address]TC ClarityTurbidAbnormalClearFGood Samaritan HospitalComment on above:Performed By: #### [id number] #### [facility] [address] [facility], [place] [address]WG Leuk Est25 Po/uLNormalNegKettering Health Greene Memorial Comment on above:Performed By: #### [id number] #### [facility] [address], [place] [address]QM MucousNegativeNormalNegKettering Health Greene Memorial Comment on above:Performed By: #### [id number] #### [facility] [address] [facility], [place] [address]CM NitriteNegativeNormalNegKettering Health Greene Memorial Comment on above:Performed By: #### [id number] #### [facility] [address], [place] [address]ER pH7.0Invalid Interpretation Code5.0-9.0Magruder HospitalComment on above:Performed By: #### [id number] #### [facility] [address], [place] [address]YF ProteinNegativeNormalNegKettering Health Greene Memorial Comment on above:Performed By: #### [id number] #### [facility] [address] [facility], [place] [address]EA DGM0-99Qzntwwxd7-9RpwqypGood Samaritan HospitalComment on above:Performed By: #### [id number] #### [facility] [address], [place] [address]YZ Spec Grav1.023Invalid Interpretation Code1.005-1.030Magruder HospitalComment on above:Performed By: #### [id number] #### [facility] [address], [place] [address]CS Squam Epithelial>10Invalid Interpretation CodeMagruder HospitalComment on above:Performed By: #### [id number] #### [facility] [address], [place] [address]RW UrobilinogenNegativeNormalNegativeMagruder HospitalComment on above:Performed By: #### [id number] #### [facility] [address], [place] [address]TP GAH15-18Fgqzhpdn9-3HjbrefGood Samaritan HospitalComment on above:Performed By: #### [id number] #### [facility] [address], [place] [address]Iyxdvuilrkip (U) [Mass/Vol]NegativeNormalNegativeMagruder HospitalComment on above:Performed By: #### [id number] #### [facility] [address], [place] [address]BY Spec DescClean CatchNormalMagruder HospitalComment on above:Performed By: #### [id number] #### [facility] [address], [place] [address]hFZUvt 85-67-9478hADV32 mL/min/1.73 x1Voiimf>=59Magruder HospitalComment on above:Performed By: #### [id number] #### [facility] [address] [place] [address]BK Note-Physicianon 87-29-4026UH Note-PhysicianED Note-Physician Basic Information Time Seen: Peter Lopez [...] chest pain or shortness of breath. Reports notany blood thinners. Has not followed up with urology. Review of Systems No other aggravating or relieving factors no other associated symptoms no other prior treatments orcomplaints. Family: Reviewed and noncontributory Social: lives at [...] return precautions. Follow-up with your primary care pro vider in 3 to 5 days. If symptoms [...] food, # 20 tab(s), Refills(s) 0, Pharmacy: [facility], 149, cm, 08/11/24 18:04:00 EDT, Height/Length Dosing, 102.5, kg, 08/11/2517:04:00 EDT, Weight Dosing ondansetron, 4 mg = 1 tab(s), Oral, q8hr, PRN Nausea/Vomiting, # 20 tab(s), Refills(s) 0, Pharmacy:[facility], 149, cm, 08/11/24 18:04:00 EDT, Height/Length Dosing, 102.5, kg, 08/11/24 18:04:00 EDT, Weight Dosing ondansetron, 4 mg = 2 mL, Injection, IV Push, Once, Stop date 08/11/24 18:19:00 EDT, STAT, Start date 08/11/24 18:19:00 EDT, 08/11/24 18:19:00 EDT oxybutynin, 5 mg = 1 tab(s), Oral, TID, PRN for urinary discomfort, # 30 tab(s), Refills(s) 0, Pharmacy: [facility], 149, cm, 08/11/24 18:04:00 EDT, Height/Length Dosing, 102.5, kg, 08/11/24 18:04:00 EDT, Weight Dosing phenazopyridine, 100 mg = 1 tab(s), Oral, TID, X 3 day(s), # 9 tab(s), Refills(s) 0, Pharmacy: [facility], 149, cm, 08/11/24 18:04:00 EDT, Height/Length Dosing, 102.5, kg, 08/11/24 18:04:00 EDT, Weight Dosing Sodium Chloride 0.9% intravenous solution, 1,000 mL, Soln-IV, IV, Once, Stop date 08/11/24 18:19:00EDT, STAT, Start date 08/11/24 18:19:00 EDT, Infuse over 61, minute(s) sulfamethoxazole-trimethoprim, 1 tab(s), Oral, BID for 7 day(s), 14 tab(s), Refill(s) 0, [facility], 149, cm, 08/11/24 18:04:00 EDT, Height/Length Dosing, 102.5, kg, 08/11/24 18:04:00EDT, Weight Dosing sulfamethoxazole-trimethoprim, 1 tab(s), Tab, Oral, Once, Stop date 08/11/24 20:23:00 EDT, STAT, Start date 08/11/24 20:23:00 EDT Basic Metabolic Panel Beta hCG Qual CBC w/ Auto Diff CT Abdomen/Pelvis w/o Contrast eGFR Extra B (more content not included)...Premier HealthComment on above:Result Comment: Electronically Signed By: Peter Lopez PA-C\.br\Date and Time Signed: 08/11/2520:26 EDT\.br\Electronically Co-Signed By: Kanu Kelly DO\.br\Date and Time Co-Signed: 08/15/24 08:12 EDTC Urineon [id number] identified Cx Nom (U)Microbiology PROCEDURE: Urine Culture [R1] SOURCE: U CleanCatch BODY SITE: COLLECTED DATE/TIME: 08/11/2024 19:00 EDT RECEIVED DATE/TIME: 08/11/2024 21:10 EDT START DATE/TIME: 08/11/2024 21:10 EDT FREE TEXT SOURCE: Jhon POWER, Peter Sauceda. John POWER, Peter Sauceda. FINAL REPORTS Final Report [] Verified Date/Time: 08/13/2024 09:29 EDT 2,000 cfu/ml Mixed skin contaminants Performing Locations R1: This test was performed at: [facility], [address] [place] [address], [facility] , , OcpmvoJzulwmPremier HealthComment on above:Performed By: #### [id number] #### [facility] [address] [place] [id number] Abdomen/Pelvis w/o Contraston 80-12-7061LC Abdomen/Pelvis w/o ContrastExam Date/Time: 08/11/2024 19:29 EDT Reason for Exam: [...] Harvey Francis DO Transcribed by: FATIMAH Technologist: [facility] HospitalB hCG Qual on 60-24-3323Rtit hCG QlNegativePremier HealthComment on above:Performed By: #### [id number] #### [facility] [address], [place] [address]TALtx 47-01-8794Kihxx gap [Moles/Vol]9 mmol/LNormal6-16Magruder HospitalComment on above:Performed By: #### [id number] #### [facility] [address], [place] [address]HCD/Creat Ratio16 No WwgtfWoziik38-90VjpsbdMagruder HospitalComment on above:Performed By: #### [id number] #### [facility] [address], [place] [address]Hsntbbw [Mass/Vol]8.7 mg/dLLow8.9-11.1Fisher [facility] Samaritan HospitalComment on above:Performed By: #### [id number] #### [facility] [address], [place] [address]Ilnxchhv [Moles/Vol]107 mmol/TBnwibr857-796BzxfarMagruder HospitalComment on above:Performed By: #### [id number] #### [facility] [address], [place] [address]CE2 [Moles/Vol]26 mmol/XLwjwru92-27NuibxeMagruder Hospital Comment on above:Performed By: #### [id number] #### [facility] [address], [place] [address]Mdnqcjhmlf [Mass/Vol]1.0 mg/dLNormal0.5-1.3FGood Samaritan HospitalComment on above:Performed By: #### [id number] #### [facility] [address], [place] [address]Xjqllpa [Mass/Vol]102 mg/cQBuxjwx83-920BfzuceMagruder HospitalComment on above:Performed By: #### [id number] #### [facility] [address], [place] [address]Ethqoyqzi [Moles/Vol]3.6 mmol/LNormal3.5-5.3FGood Samaritan HospitalComment on above:Performed By: #### [id number] #### [facility] [address] [place] [address]Vqmghz [Moles/Vol]138 mmol/BAmzlfk835-594YexfeeMagruder HospitalComment on above:Performed By: #### [id number] #### [facility] [address] [place] [address]Nlfh nitrogen [Mass/Vol]16 mg/dLNormal5-21Magruder HospitalComment on above:Performed By: #### [id number] #### [facility] [address], [place] [address]IJN w/ Auto Diffon 46-31-9339Jusqpcgt Absolute0.1 E9/LNormal 0.0-0.2FGood Samaritan HospitalComment on above:Performed By: #### [id number] #### [facility] [address], [place] [address]Ikvviivsy/100 WBC (Bld)0.5 %Normal0.0-2.0Magruder HospitalComment on above:Performed By: #### [id number] #### [facility] [address], [place] [address]Ulo Absolute0.2 E9/LNormal0.0-0.5FGood Samaritan Hospital Comment on above:Performed By: #### [id number] #### [facility] [address], [place] [address]Jpvnpczueje/100 WBC (Bld)2.0 %Normal0.0-8.0Magruder HospitalComment on above:Performed By: #### [id number] #### [facility] [address], [place] [address]Ofuvumuqouc distribution width (RBC) [Ratio]13.2 %Normal 10.9-14.2FGood Samaritan HospitalComment on above:Performed By: #### [id number] #### [facility] [address], [place] [address]Zwazcgsfhu (Bld) [Volume fraction]35.7 %Rshiry32.0-46.0Mag[facility]uder HospitalComment on above:Performed By: #### [id number] #### [facility] [address], [place] [address]Ogctpnfqgq (Bld) [Mass/Vol]12.1 g/nJXnczxa11.0-16.0Mag[facility]uder HospitalComment on above:Performed By: #### [id number] #### [facility] [address] [place] [address]Ahwyb Absolute3.5 E9/LNormal1.0-4.0[facility] Comment on above:Performed By: #### [id number] #### [facility] [address], [place] [address]Aketrhuqpyc/100 WBC (Bld)31.1 %Juuzhw93.0-50.0[facility]uder HospitalComment on above:Performed By: #### [id number] #### [facility] [address], [place] [address]ISU (RBC) [Entitic mass]30.0 fmNphzph24.0-34.0Mag[facility]uder HospitalComment on above:Performed By: #### [id number] #### [facility] [address] [place] [address]VOAW (RBC) [Mass/Vol]33.9 g/lHGaoplh77.4-36.0[facility]uder HospitalComment on above:Performed By: #### [id number] #### [facility] [address] [place] [address]VZO (RBC) [Entitic vol]88.6 oXJtvwft25.0-100.0[facility]uder HospitalComment on above:Performed By: #### [id number] #### [facility] [address] [place] [address]Rabb Absolute0.7 E9/LNormal0.2-1.0[facility] Comment on above:Performed By: #### [id number] #### [facility] [address] [place] [address]Hfxnnzlrh/100 WBC (Bld)6.0 %Normal4.0-14.0Magruder HospitalComment on above:Performed By: #### [id number] #### [facility] [address] [place] [address]Zirene Absolute6.7 E9/LNormal2.0-7.5FGood Samaritan Hospital Comment on above:Performed By: #### [id number] #### [facility] [address] [place] [address]Rqkjvx Auto60.4 %Gqeafc64.0-75.0[facility] Comment on above:Performed By: #### [id number] #### [facility] [address] [place] [address]Abpleqoj319.0 E9/DJlqwna852.0-500.0[facility] Comment on above:Performed By: #### [id number] #### [facility] [address] [place] [address]Sdbddrhk mean volume (Bld) [Entitic vol]7.5 fLNormal6.4-10.8 [facility] HospitalComment on above:Performed By: #### [id number] #### [facility] [address], [place] [address]PAW2.0 E12/LLow4.3-5.9Magruder HospitalComment on above:Performed By: #### [id number] #### [facility] [address], [place] [address]AJL87.2 E9/LHigh4.0-11.0[facility]uder HospitalComment on above:Performed By: #### [id number] #### [facility] [address], [place] [address]AKCMRTTPHXyyyikd By: SYSTEM SYSTEM on 81-13-6946Okgsxfg [Mass/Vol]4.0 g/dLNormal3.3 - 5.0 gm/dLRemisol ChemAlbumin/Globulin [Mass ratio] 1.3 {ratio}Normal1.1 - 2.2Remisol ChemALP [Catalytic activity/Vol]114 [iU]/dHigh 21 - 98 Int._Unit/LRemisol ChemALT No additional P-5'-P [Catalytic activity/Vol] 13 [iU]/dNormal6 - 46 Int._Unit/LRemisol ChemAnion gap [Moles/Vol]9 mmol/LNormal 6 - 16 mEq/LRemisol ChemAST [Catalytic activity/Vol]14 [iU]/dNormal5 - 43 Int._Unit/LRemisol ChemBilirubin [Mass/Vol]0.3 mg/dLNormal0.0 - 1.1 mg/dLRemisol ChemBilirubin.direct [Mass/Vol]0.0 mg/dLNormal0.0 - 0.4 mg/dLRemisol Chem Bilirubin.indirect [Mass or moles/Vol]0.3 mg/dLNormal0.1 - 0.9 mg/dLRemisol Chem Calcium [Mass/Vol]8.7 mg/dLLow8.9 - 11.1 mg/dLRemisol ChemChloride [Moles/Vol] 107 mmol/QWoxozp573 - 111 mmol/LRemisol ChemCO2 [Moles/Vol]26 mmol/JJvrmzg74 - 31 mmol/LRemisol ChemCreatinine [Mass/Vol]1.0 mg/dLNormal0.5 - 1.3 mg/dLRemisol ChemGFR/1.73 sq M.predicted MDRD (S/P/Bld) [Vol rate/Area]75 mL/min/1.73 m2 Normal>=59mL/min/1.73 b3Nemgvgn ChemGlobulin (S) [Mass/Vol]3.1 g/dLNormal1.4 - 4.0 gm/dLRemisol ChemGlucose [Mass/Vol]102 mg/iYJafmze25 - 199 mg/dLRemisol Chem Lipase [Catalytic activity/Vol]31 U/YIzladp78 - 58 unit/LRemisol ChemPotassium [Moles/Vol]3.6 mmol/LNormal3.5 - 5.3 mmol/LRemisol ChemProtein [Mass/Vol]7.1 g/dLNormal6.0 - 7.8 gm/dLRemisol ChemSodium [Moles/Vol]138 mmol/HZudgpa598 - 145 mmol/LRemisol ChemUrea nitrogen [Mass/Vol]16 mg/dLNormal5 - 21 mg/dLRemisol ChemUrea nitrogen/Creatinine [Mass ratio]16 mg/guRkkfvw78 - 20Remisol ChemED Clinical Summaryon [id number] Clinical SummaryED Clinical Summary [place] [id number] ED Clinical Summary Person Information Name: TRACIE SAMUELS [facility] Age: 34 Years : 1990 Sex: Female Language: Bangladeshi PCP: KATLIN FERNANDEZ DO Marital Status: Single [...] 08/11/2024 20:40:32 08/11/2024 20:40:32 08/11/2024 20:40:32 ADDRESS: [address] [place] [address] [address] [facility] [id number] PHYS DOC NOTES: MEDICAL INFORMATION: Prescriptions Given: New Medications [facility], [address] [place], [place] [id number], [phone] oxybutynin (oxybutynin 5 mg Tab) 1 Tablets By Mouth 3 times a day as needed for urinary discomfort.Refills: 0. phenazopyridine (Pyridium 100 mg Tab) 1 Tablets By Mouth 3 times a day for 3 Days. Refills: 0. sulfamethoxazole-trimethoprim (Bactrim D.S. 800 mg-160 mg Tab) 1 Tablets By Mouth 2 times a day for7 Days. Refills: 0. Medications to Continue Taking That Have Changed [facility], [address] [place], [place] [id number], [phone] START: naproxen (naproxen 500 mg Tab) 1 Tablets By Mouth 2 times a day as needed Pain. with food. Refills: 0. START: ondansetron (Zofran ODT 4 mg Tab-Dis) 1 Tablets By Mouth every 8 hours as needed Nausea/Vomiting. Refills: 0. Other Medications START: naproxen (Naprosyn 500 mg Tab) 1 Tablets By Mouth 2 times a day as needed for pain. Refills:0. START: naproxen (Naprosyn 500 mg Tab) 1 [...] 3 Milliliter Nebulized inhalation (aerosol) every 6 hoursas needed Shortness of breath or wheezing. albuterol (ProAir HFA 90 mcg/inh inhalation aerosol) 2 Puffs Inhalation 4 times a day as needed Lisa(more content not included)...[facility] CenterED Patient Summaryon [id number] Patient SummaryED Patient Summary [address] [address] Patient Discharge Instructions Person Information Name: TRACIE SAMUELS Age: 34 Years Arrival Date: 08/11/2024 17:51:07 Discharge Diagnosis: UTI (urinary tract infection) Primary Care Physician: KATLIN FERNANDEZ DO Provider Information Primary Provider: Kanu Kelly DO Advanced Sanding Line Operator:Peter Lopez PA-C The exam and treatment you received in the Emergency Department were for an urgent problem and are not intended as complete care. It is important that you follow up with a doctor, nurse practitioner,or physician???s religious assistant for ongoing care. If your symptoms become worse or you do not improve asexpected and you are unable to reach your usual health care provider, you should return to the Emergency Department. We are available 24 hours a day. TRACIE SAMUELS has been given the following list of patient education materials, prescriptions and follow-up instructions: Follow-up Instructions: With: Address: When: KATLIN FERNANDEZ [address] [place], [place] [id number] [facility] () In 3 days 08/14/2024 Comments: Call Dr for diagnosis based follow up In the event that this physician does not participate in your insurance network, please consult with your insurance company to find a nearby participating provider. Patient Education Materials: Flank Pain, Adult, Yovf-dd-Ecpx; Urinary Tract Infection, Adult, Rdeq-so-Dlmq; Nausea and Vomiting,Adult, Famk-sp-Ukrg A MESSAGE TO ALL PATIENTS REGARDING OPIOIDS PRESCRIPTION OPIOIDS: WHAT YOU NEED TO KNOW Prescription opioids can be used to help relieve ewoopzyz-jl-mjsgct pain and are often prescribed following a [...] guidance from the Food and Drug Administration (www.fda.gov/Drugs/ResourcesForYou). ??? Visit www.cdc.gov/drugoverdo (more content not included)...Premier HealthExtra Blueon 76-45-3865Cpry Collected PlasmaYesInvalid Interpretation [facility] HospitalComment on above:Performed By: #### [id number] #### [facility] [address], [place] [address]FPPCCPWAFLIdtklmb By: SYSTEM SYSTEM on 49-71-7970Akmewcfjl/100 WBC (Bld)0.5 %Normal0.0 - 2.0 %Remisol HemeBasophils/Leukocytes Auto (Bld) [Pure # fraction]0.1 E9/LNormal0.0 - 0.2 E9/LRemisol HemeEosinophils (Bld) [#/Vol]0.2 E9/LNormal0.0 - 0.5 E9/LRemisol HemeEosinophils/100 WBC (Bld)2.0 %Normal0.0 - 8.0 %Remisol HemeErythrocyte distribution width (RBC) [Ratio]13.2 %Lzvnsc39.9 - 14.2 %Remisol HemeHematocrit (Bld) [Volume fraction]35.7 %Dahctl11.0 - 46.0 % Remisol HemeHemoglobin (Bld) [Mass/Vol]12.1 g/iMLloidp69.0 - 16.0 gm/dLRemisol HemeLymphocytes (Bld) [#/Vol]3.5 E9/LNormal1.0 - 4.0 E9/LRemisol Heme Lymphocytes/100 WBC (Bld)31.1 %Kkzxdu06.0 - 50.0 %Remisol HemeMCH (RBC) [Entitic mass]30.0 bkEasjbd37.0 - 34.0 pgRemisol HemeMCHC (RBC) [Mass/Vol]33.9 g/dL Qwgwhn24.4 - 36.0 gm/dLRemisol HemeMCV (RBC) [Entitic vol]88.6 cXTriiyp96.0 - 100.0 fLRemisol HemeMonocytes (Bld) [#/Vol]0.7 E9/LNormal0.2 - 1.0 E9/LRemisol HemeMonocytes/100 WBC (Bld)6.0 %Normal4.0 - 14.0 %Remisol HemeNeutrophils (Bld) [#/Vol]6.7 E9/LNormal2.0 - 7.5 E9/LRemisol HemeNeutrophils/100 WBC (Bld)60.4 % Rmprft68.0 - 75.0 %Remisol HemePlatelet mean volume (Bld) [Entitic vol]7.5 fL Normal6.4 - 10.8 fLRemisol HemePlatelets (Bld) [#/Vol]248.0 E9/WFcsrrm351.0 - 500.0 E9/LRemisol HemeRBC (Bld) [#/Vol]4.0 E12/LLow4.3 - 5.9 E12/LRemisol Heme WBC corrected for nucl RBC Auto (Bld) [#/Vol]11.2 E9/LHigh4.0 - 11.0 E9/LRemisol HemeHep Func Panelon 97-86-8366Eixjffz [Mass/Vol]4.0 g/dLNormal3.3-5.0Magruder HospitalComment on above:Performed By: #### [id number] #### [facility] [address], [place] [address]Lwdlpjf/Globulin [Mass ratio]1.3 {ratio}Normal1.1-2.2FGood Samaritan HospitalComment on above:Performed By: #### [id number] #### [facility] [address], [place] [address]Ppg Fhbh652 Int._Unit/WMzlb72-42ZomboqMagruder Hospital Comment on above:Performed By: #### [id number] #### [facility] [address], [place] [address]GUJ86 Int._Unit/LNormal6-46[facility] HospitalComment on above:Performed By: #### [id number] #### [facility] [address], [place] [address]GRY00 Int._Unit/LNormal5-43[facility]uder HospitalComment on above:Performed By: #### [id number] #### [facility] [address], [place] [address]Rbnm Direct0.0 mg/dLNormal0.0-0.4FGood Samaritan Hospital Comment on above:Performed By: #### [id number] #### [facility] [address], [place] [address]Hdsf Indirect0.3 mg/dLNormal0.1-0.9[facility] Comment on above:Performed By: #### [id number] #### [facility] [address], [place] [address]Sicl Total0.3 mg/dLNormal0.0-1.1FGood Samaritan Hospital Comment on above:Performed By: #### [id number] #### [facility] [address], [place] [address]Zrpwhbrl (S) [Mass/Vol]3.1 g/dLNormal1.4-4.0[facility]uder HospitalComment on above:Performed By: #### [id number] #### [facility] [address], [place] [address]Lowaigw [Mass/Vol]7.1 g/dLNormal6.0-7.8[facility]uder HospitalComment on above:Performed By: #### [id number] #### [facility] [address], [place] [address]Srkrtf Levelon 92-04-5205Ifyhug Lvl31 unit/UQrpuqf37-17UrshylMagruder HospitalComment on above:Performed By: #### [id number] #### [facility] [address], [place] [address]DJFLNMSBTxekjkj By: Keke Gillespie on 41-10-0752Zhmf HCG ( test) QlNegative (08/11/24 6:35 PM)NormalWEATHERFORD [facility] [place] Man SeroUA with Cult Rflxon 10-04-3355Ufqwn (U) Light-YellowNormalYellowMagruder HospitalComment on above:Result Comment: Microscopic readings are only performed on those samples that meet specific criteria set forth by [facility].Performed By: #### [id number] #### [facility] [address], [place] [address]Vdtczwf (U) [Mass/Vol]NegativeNormalNegativeMagruder HospitalComment on above:Performed By: #### [id number] #### [facility] [address], [place] [address]Tiolaak Ql (U)NegativeNormalNegKettering Health Greene Memorial Comment on above:Performed By: #### [id number] #### [facility] [address], [place] [address]UV Blood2+ mg/dLAbnormalNegKettering Health Greene Memorial Comment on above:Performed By: #### [id number] #### [facility] [address], [place] [address]XV Amorph CrysPresentAbnormalMagruder HospitalComment on above:Performed By: #### [id number] #### [facility] [address], [place] [address]CU BacteriaTraceNormalTraceMagruder HospitalComment on above:Performed By: #### [id number] #### [facility] [address], [place] [address]XP ClarityTurbidAbnormalClearFisher [facility] Samaritan HospitalComment on above:Performed By: #### [id number] #### [facility] [address], [place] [address]ZV Leuk Cai150 Po/uLAbnormalNegKettering Health Greene MemorialComment on above:Performed By: #### [id number] #### [facility] [address], [place] [address]VF MucousTraceNormalNegativeMagruder HospitalComment on above:Performed By: #### [id number] #### [facility] [address] [place] [address]PG NitriteNegativeNormalNegativeMag[facility] Hospital Comment on above:Performed By: #### [id number] #### [facility] [address], [place] [address]IZ pH6.5Invalid Interpretation Code5.0-9.0[facility]uder HospitalComment on above:Performed By: #### [id number] #### [facility] [address], [place] [address]GG ProteinNegativeNormalNegKettering Health Greene Memorial Comment on above:Performed By: #### [id number] #### [facility] [address] [place] [address]VN AWU01-44Xcochvzf4-5SqisoqGood Samaritan HospitalComment on above:Performed By: #### [id number] #### [facility] [address] [place] [address]WH Spec Grav1.024Invalid Interpretation Code1.005-1.030[facility] HospitalComment on above:Performed By: #### [id number] #### [facility] [address] [place] [address]NM Squam Epithelial9-10Invalid Interpretation CodeMagruder HospitalComment on above:Performed By: #### [id number] #### [facility] [address], [place] [address]CY UrobilinogenNegativeNormalNegativeMagruder HospitalComment on above:Performed By: #### [id number] #### [facility] [address] [place] [address]LN WHY04-72Scyafhbr0-5UykpzaGood Samaritan HospitalComment on above:Performed By: #### [id number] #### [facility] [address], [place] [address]RQ Spec DescClean CatchNormalFisher [facility] Samaritan HospitalComment on above:Performed By: #### [id number] #### [facility] [address], [place] [address]BE with Cult RflxOrdered By: SYSTEM SYSTEM on 08-11-2024 Urobilinogen (U) [Mass/Vol]NegativeNormalNegativeWEATHERFORD [facility] UA Auto SSComment on above:Performed By: #### [id number] #### [facility] [address], [place] [address]ZOTAOSTWZZFihxsnr By: SYSTEM SYSTEM on 35-10-2648Mryevsxx Auto Ql (U)Trace /HPFNormalTrace/HPFFTMC UA Auto SSBilirubin Ql (U)NegativeNormal Negativemg/dLFT UA Auto SSClarity (U)Turbid *ABN* (08/11/24 7:00 PM)Invalid Interpretation CodeClearFC UA Auto SSColor (U)Light- Yellow 1 (08/11/24 7:00 PM)NormalYellowWEATHERFORD REGIONAL [facility] UA Auto SSComment on above:Interpretive Data: Microscopic readings are only performed on those samples that meet specific criteria set forth by [facility].Crystals.amorphous Computer assisted Ql (U)Present graded/HPFInvalid Interpretation CodeWEATHERFORD REGIONAL [facility] [place] UA Auto SSEpithelial cells.squamous Auto (Urine sed) [#/Area]9-10 graded/HPFInvalid Interpretation CodeFT UA Auto SSGlucose Ql (U)NegativeNormalNegativemg/dLFT UA Auto SSHemoglobin Auto test strip (U) [Mass/Vol]2+ mg/dLInvalid Interpretation CodeNegativemg/dLFTMC UA Auto SSKetones Auto test strip Ql (U) NegativeNormalNegativemg/dLFT UA Auto SSLeukocyte esterase Auto test strip Ql (U)250 Po/uL Po/uLInvalid Interpretation CodeNegativeLeu/uLFT UA Auto SS Mucus Auto Ql (U)Trace graded/LPFNormalNegativegraded/LPFFTMC UA Auto SSNitrite Auto test strip Ql (U)NegativeNormalNegativemg/dLWEATHERFORD REGIONAL [facility] [place] UA Auto SSpH (U)6.5 *NA* (08/11/24 7:00 PM)Invalid Interpretation Code5.0 - 9.0[facility] UA Auto SSProtein Ql (U)NegativeNormalNegativemg/dLWEATHERFORD REGIONAL [facility] [place] UA Auto SSRBC Ql (U)31-75 graded/HPFInvalid Interpretation Code0-3graded/HPFWEATHERFORD REGIONAL [facility]PITAL [facility] [place] UA Auto SSSpecific gravity (U) [Rel density]1.024 *NA* (08/11/24 7:00 PM)Invalid Interpretation Code1.005 - 1.030[facility] UA Auto SSWBC Auto (Urine sed) [#/Area]16-25 graded/HPFInvalid Interpretation Code0-5graded/[facility] UA Auto SSURINALYSISOrdered By: Peter Lopez on 53-21-9943JF Spec DescClean Catch (08/11/24 7:00 PM)NormalWEATHERFORD [facility] UA Auto SS eGFRon 95-48-2788dSHJ00 mL/min/1.73 a8Medfki>=59Fisher [facility]aritan HospitalComment on above:Performed By: #### [id number] #### [facility] [address], [place] [address]HC Note-Physicianon 65-99-6475KR Note-PhysicianED Note-Physician Basic Information Time Seen: Treasure Burnette PA-C 07/22/2024 17:21 Chief Complaint pt reports l [...] area. She does have a history of kidneystones. Patient notes urinary frequency but denies dysuria [...] symmetry Psychiatric: Cooperative and appropriate Procedure Treasure Guevara PA-C had a bsld-ti-mdpx interaction with the patient. I personally performed [...] pain and is given IM morphine and dicyclomine.Patient is prescribed Bactrim for her UTI and given the first dose prior to discharge. She was jean paul bush on symptomatic management. Patient will follow-up with urology. She is advised to return to theED with any new or worsening symptoms. Patient [...] Once, Stop date 07/22/24 21:43:00 EDT, STAT, Startdate 07/22/24 21:43:00 EDT, 07/22/24 21:43:00 EDT naproxen, 500 mg = 1 tab(s), Oral, BID, PRN Pain, # 30 tab(s), Refills(s) 0, Pharmacy: [facility], 149, cm, 07/22/24 17:18:00 EDT, Height/Length Dosing, 94.4, kg, 07/22/24 18:10:00 EDT, Weight Dosing ondansetron, 4 mg = 1 tab(s), Tab-Dis, Oral, Once, Stop date 07/22/24 18:20:00 EDT, STAT, Start date 07/22/24 18:20:00 EDT, 07/22/24 18:20:00 EDT sulfamethoxazole-trimethoprim, 1 tab(s), Tab, Oral, Once, Stop date 07/22/24 21:42:00 EDT, STAT, Start date 07/22/24 21:42:00 EDT sulfamethoxazole-trimethoprim, 1 tab(s), Oral, BID for 5 day(s), 10 tab(s), Refill(s) 0, [facility], 149, cm, 07/22/24 17:18:00 EDT, Height/Length Dosing, 94.4, kg, 07/22/24 18:10:00 EDT, Weight Dosing tamsulosin, 0.4 mg = 1 cap(s), Oral, Daily, # 10 cap(s), R (more content not included)...Premier HealthComment on above:Result Comment: Electronically Signed By: Treasure Burnette PA-C\.br\Date and Time Signed: 07/22/2522:58 EDT\.br\Electronically Co-Signed By: Treasure Burnette PA-C\.br\Date and Time Co-Signed: 07/22/24 23:58 EDT\.br\Electronically Co-Signed By: Kanu Kelly DO\.br\Date and Time Co-Signed: 07/25/24 07:18 EDTC Urineon 95-43-8161Wmtzfuri identified Cx Nom (U)Microbiology PROCEDURE: Urine Culture [R1] SOURCE: U CleanCatch BODY SITE: COLLECTED DATE/TIME: 07/22/2024 18:06 EDT RECEIVED DATE/TIME: 07/22/2024 18:56 EDT START DATE/TIME: 07/22/2024 18:56 EDT FREE TEXT SOURCE: Treasure Burnette PA-C, PA-C, Rachel L. FINAL REPORTS Final Report [] Verified Date/Time: 07/24/2024 10:30 EDT <10,000 cfu/ml Mixed skin contaminants Performing Locations R1: This test was performed at: [facility], [address] [place] [address], [address] , , OxqxezYigwhzGalion Community HospitalComment on above:Performed By: #### [id number] #### [facility] [address] [place] [id number] Abdomen/Pelvis w/o Contraston 76-03-9573QY Abdomen/Pelvis w/o ContrastExam Date/Time: 07/22/2024 18:50 EDT Reason for Exam: [...] Burnette FINAL REPORT Dictated: 07/23/2024 8:34 am Signer Tong BENTON Signed (Electronic Signature): 07/23/2024 8:34 am Signed by: Tong Worthington MD Transcribed by: FATIMAH Technologist: UrsulaMagruder HospitalXR Knee Complete 4+ Views Righton 04-98-4563SJ Knee Complete 4+ Views RightExam Date/Time: 07/22/2024 18:01 EDT Reason for Exam: [...] Harvey Francis DO Transcribed by: FATIMAH Technologist: SULEMAThe University of Toledo Medical CenterBMPon 89-67-9901Ywkbe gap [Moles/Vol]9 mmol/LNormal6-16[facility] Comment on above:Performed By: #### [id number] #### [facility] [address], [place] [address]Qvbojwe [Mass/Vol]8.8 mg/dLLow8.9-11.1FGood Samaritan HospitalComment on above:Performed By: #### [id number] #### [facility] [address], [place] [address]Cfwfapkx [Moles/Vol]106 mmol/ITeqses953-022OanutgMagruder HospitalComment on above:Performed By: #### [id number] #### [facility] [address], [place] [address]FI8 [Moles/Vol]26 mmol/WYboxah56-61TaupbkMagruder Hospital Comment on above:Performed By: #### [id number] #### [facility] [address], [place] [address]Nobjsavvgj [Mass/Vol]0.8 mg/dLNormal0.5-1.3FGood Samaritan HospitalComment on above:Performed By: #### [id number] #### [facility] [address], [place] [address]Rwesqzs [Mass/Vol]105 mg/pGOvjxzw29-554VqkcgdMagruder HospitalComment on above:Performed By: #### [id number] #### [facility] [address], [place] [address]Kcfmgumii [Moles/Vol]3.7 mmol/LNormal3.5-5.3FGood Samaritan HospitalComment on above:Performed By: #### [id number] #### [facility] [address], [place] [address]Gqjhsu [Moles/Vol]137 mmol/WSysdop360-160JnhizsMagruder HospitalComment on above:Performed By: #### [id number] #### [facility] [address], [place] [address]Qcle nitrogen [Mass/Vol]15 mg/dLNormal5-21[facility] HospitalComment on above:Performed By: #### [id number] #### [facility] [address], [place] [address]Jopj nitrogen/Creatinine [Mass ratio]19 No VycofAnapdr31-97 [facility] HospitalComment on above:Performed By: #### [id number] #### [facility] [address] [place] [address]GWU w/ Auto Diffon 86-33-6195Szrbbxgyq/100 WBC (Bld)0.4 %Normal 0.0-2.0[facility] HospitalComment on above:Performed By: #### [id number] #### [facility] [address], [place] [address]Mjzbxfcxk/Leukocytes Auto (Bld) [Pure # fraction]0.0 E9/LNormal 0.0-0.2FGood Samaritan HospitalComment on above:Performed By: #### [id number] #### [facility] [address], [place] [address]Thvbcokzfva (Bld) [#/Vol]0.2 E9/LNormal0.0-0.5FGood Samaritan HospitalComment on above:Performed By: #### [id number] #### [facility] [address] [place] [address]Rpfiurgtavt/100 WBC (Bld)1.9 %Normal0.0-8.0[facility] HospitalComment on above:Performed By: #### [id number] #### [facility] [address] [place] [address]Yzafydpxiki distribution width (RBC) [Ratio]13.2 %Normal 10.9-14.2FGood Samaritan HospitalComment on above:Performed By: #### [id number] #### [facility] [address] [place] [address]Vptkitjhgm (Bld) [Volume fraction]35.5 %Zudeho25.0-46.0[facility] HospitalComment on above:Performed By: #### [id number] #### [facility] [address] [place] [address]Cqswtthxsm (Bld) [Mass/Vol]12.6 g/bKWosvge26.0-16.0[facility] HospitalComment on above:Performed By: #### [id number] #### [facility] [address] [place] [address]Fwhlqlmfyvf (Bld) [#/Vol]3.3 E9/LNormal1.0-4.0[facility] HospitalComment on above:Performed By: #### [id number] #### [facility] [address] [place] [address]Qafmtjbhbvy/100 WBC (Bld)30.9 %Nafnzh16.0-50.0[facility] HospitalComment on above:Performed By: #### [id number] #### [facility] [address] [place] [address]SPJ (RBC) [Entitic mass]31.3 tuYmokad86.0-34.0[facility] HospitalComment on above:Performed By: #### [id number] #### [facility] [address] [place] [address]NNMV (RBC) [Mass/Vol]35.4 g/tJYyjndp53.4-36.0[facility] HospitalComment on above:Performed By: #### [id number] #### [facility] [address] [place] [address]SEA (RBC) [Entitic vol]88.3 aXDohbfg34.0-100.0[facility] HospitalComment on above:Performed By: #### [id number] #### [facility] [address] [place] [address]Uqlfacphj (Bld) [#/Vol]0.8 E9/LNormal0.2-1.0[facility] HospitalComment on above:Performed By: #### [id number] #### [facility] [address] [place] [address]Ynprvmeibys (Bld) [#/Vol]6.4 E9/LNormal2.0-7.5FGood Samaritan HospitalComment on above:Performed By: #### [id number] #### [facility] [address] [place] [address]Thgoktijmkg/100 WBC (Bld)59.8 %Rglrif36.0-75.0[facility] HospitalComment on above:Performed By: #### [id number] #### [facility] [address] [place] [address]Kopksbir725.0 E9/QIodniz692.0-500.0[facility] Comment on above:Performed By: #### [id number] #### [facility] [address] [place] [address]Dprfwazq mean volume (Bld) [Entitic vol]6.8 fLNormal6.4-10.8 [facility] HospitalComment on above:Performed By: #### [id number] #### [facility] [address], [place] [address]KDP (Bld) [#/Vol]4.0 E12/LLow4.3-5.9[facility] Comment on above:Performed By: #### [id number] #### [facility] [address], [place] [address]BFO corrected for nucl RBC Auto (Bld) [#/Vol]10.8 E9/LNormal 4.0-11.0[facility] HospitalComment on above:Performed By: #### [id number] #### [facility] [address], [place] [address]CWFAWMKEKAakymcw By: SYSTEM SYSTEM on 82-52-0755Vtpzxbl [Mass/Vol]3.9 g/dLNormal3.3 - 5.0 gm/dLRemisol ChemAlbumin/Globulin [Mass ratio] 1.1 {ratio}Normal1.1 - 2.2Remisol ChemALP [Catalytic activity/Vol]116 [iU]/dHigh 21 - 98 Int._Unit/LRemisol ChemALT No additional P-5'-P [Catalytic activity/Vol] 13 [iU]/dNormal6 - 46 Int._Unit/LRemisol ChemAnion gap [Moles/Vol]9 mmol/LNormal 6 - 16 mEq/LRemisol ChemAST [Catalytic activity/Vol]13 [iU]/dNormal5 - 43 Int._Unit/LRemisol ChemBilirubin [Mass/Vol]0.3 mg/dLNormal0.0 - 1.1 mg/dLRemisol ChemBilirubin.direct [Mass/Vol]0.1 mg/dLNormal0.0 - 0.4 mg/dLRemisol Chem Bilirubin.indirect [Mass or moles/Vol]0.2 mg/dLNormal0.1 - 0.9 mg/dLRemisol Chem Calcium [Mass/Vol]8.8 mg/dLLow8.9 - 11.1 mg/dLRemisol ChemChloride [Moles/Vol] 106 mmol/RFgqtwh639 - 111 mmol/LRemisol ChemCO2 [Moles/Vol]26 mmol/JPghvvk24 - 31 mmol/LRemisol ChemCreatinine [Mass/Vol]0.8 mg/dLNormal0.5 - 1.3 mg/dLRemisol ChemGFR/1.73 sq M.predicted MDRD (S/P/Bld) [Vol rate/Area]98 mL/min/1.73 m2 Normal>=59mL/min/1.73 e9Mijdntq ChemGlobulin (S) [Mass/Vol]3.4 g/dLNormal1.4 - 4.0 gm/dLRemisol ChemGlucose [Mass/Vol]105 mg/zBPycrfv48 - 199 mg/dLRemisol Chem Lipase [Catalytic activity/Vol]29 U/WRvqbcn97 - 58 unit/LRemisol ChemPotassium [Moles/Vol]3.7 mmol/LNormal3.5 - 5.3 mmol/LRemisol ChemProtein [Mass/Vol]7.3 g/dLNormal6.0 - 7.8 gm/dLRemisol ChemSodium [Moles/Vol]137 mmol/FXenere717 - 145 mmol/LRemisol ChemUrea nitrogen [Mass/Vol]15 mg/dLNormal5 - 21 mg/dLRemisol ChemUrea nitrogen/Creatinine [Mass ratio]19 mg/avEvhked18 - 20Remisol ChemED Clinical Summaryon [id number] Clinical SummaryED Clinical Summary [place] [address] ED Clinical Summary Person Information Name: TRACIE SAMUELS Floresita/[facility] Age: 34 Years : 1990 Sex: Female Language: Bangladeshi PCP: KATLIN FERNANDEZ DO Marital Status: Single [...] 07/22/2024 22:20:41 07/22/2024 22:20:41 07/22/2024 22:20:41 ADDRESS: [address] [place] [address] [address] [facility] [phone] PHYS DOC NOTES: MEDICAL INFORMATION: Prescriptions Given: New Medications [facility], [address] [place], [place] [id number], [phone] sulfamethoxazole-trimethoprim (Bactrim D.S. 800 mg-160 mg Tab) 1 Tablets By Mouth 2 times a day for5 Days. Refills: 0. Medications to Continue Taking That Have Changed [facility], [address] [place], [place] [id number], [phone] START: naproxen (naproxen 500 mg Tab) 1 [...] times a day as needed for pain. Refills:0. START: naproxen (naproxen 375 mg Tab) 1 [...] 3 Milliliter Nebulized inhalation (aerosol) every 6 hoursas needed Shortness of breath or wheezing. albuterol [...] Refills: 0. metformin (metfor (more content not included)...[facility] Patient Summaryon [id number] Patient SummaryED Patient Summary [address] [address] Patient Discharge Instructions Person Information Name: TRACIE SAMUELS Age: 34 Years Arrival Date: 07/22/2024 17:07:05 Discharge Diagnosis: Acute UTI (urinary tract infection); Knee pain, right; Renal colic Primary Care Physician: KATLIN FERNANDEZ DO Provider Information Primary Provider: Kanu Kelly DO Advanced Sanding Line Operator:Treasure Burnette PA-C The exam and treatment you received in the Emergency Department were for an urgent problem and are not intended as complete care. It is important that you follow up with a doctor, nurse practitioner,or physician???s religious assistant for ongoing care. If your symptoms become worse or you do not improve asexpected and you are unable to reach your usual health care provider, you should return to the Emergency Department. We are available 24 hours a day. TRACIE SAMUELS has been given the following list of patient education materials, prescriptions and follow-up instructions: Follow-up Instructions: With: Address: When: Troy BOLIVAR [address] [place] [address], [address], [place] [id number] Business (1) In 3 days 07/25/2024 Comments: Call to schedule a follow-up appointment with urology. Use the medications as prescribed. Return tot ED with any new or worsening symptoms. With: Address: When: KATLIN FERNANDEZ [address] [place] [address] [facility] (1) In 3 days In the event that this physician does not participate in your insurance network, please consult with your insurance company to find a nearby participating provider. Patient Education Materials: Colic, Jftr-tj-Odme A MESSAGE TO ALL PATIENTS REGARDING OPIOIDS PRESCRIPTION OPIOIDS: WHAT YOU NEED TO KNOW Prescription opioids can be used to help relieve adfxwcua-pt-qdakqa pain and are often prescribed following a [...] program or your pharmacy (more content not included)...[facility] HealthExtra Blueon 40-58-7225Fdcf Collected PlasmaYesInvalid Interpretation [facility] HospitalComment on above:Performed By: #### [id number] #### [facility] [address], [place] [address]ZCIAIJFCDUPkoygjq By: SYSTEM SYSTEM on 49-54-7373Cfsjeeshy/100 WBC (Bld)0.4 %Normal0.0 - 2.0 %Remisol HemeBasophils/Leukocytes Auto (Bld) [Pure # fraction]0.0 E9/LNormal0.0 - 0.2 E9/LRemisol HemeEosinophils (Bld) [#/Vol]0.2 E9/LNormal0.0 - 0.5 E9/LRemisol HemeEosinophils/100 WBC (Bld)1.9 %Normal0.0 - 8.0 %Remisol HemeErythrocyte distribution width (RBC) [Ratio]13.2 %Ineidl98.9 - 14.2 %Remisol HemeHematocrit (Bld) [Volume fraction]35.5 %Zgniiq11.0 - 46.0 % Remisol HemeHemoglobin (Bld) [Mass/Vol]12.6 g/fEWlxjqh41.0 - 16.0 gm/dLRemisol HemeLymphocytes (Bld) [#/Vol]3.3 E9/LNormal1.0 - 4.0 E9/LRemisol Heme Lymphocytes/100 WBC (Bld)30.9 %Gsbfiv90.0 - 50.0 %Remisol HemeMCH (RBC) [Entitic mass]31.3 hlVnwwcw03.0 - 34.0 pgRemisol HemeMCHC (RBC) [Mass/Vol]35.4 g/dL Asjapb24.4 - 36.0 gm/dLRemisol HemeMCV (RBC) [Entitic vol]88.3 lOTvtraw85.0 - 100.0 fLRemisol HemeMonocytes (Bld) [#/Vol]0.8 E9/LNormal0.2 - 1.0 E9/LRemisol HemeMonocytes/100 WBC (Bld)7.0 %Normal4.0 - 14.0 %Remisol HemeNeutrophils (Bld) [#/Vol]6.4 E9/LNormal2.0 - 7.5 E9/LRemisol HemeNeutrophils/100 WBC (Bld)59.8 % Ckxijq31.0 - 75.0 %Remisol YoldVjuiskzc447.0 E9/HIsisxw666.0 - 500.0 E9/LRemisol HemePlatelet mean volume (Bld) [Entitic vol]6.8 fLNormal6.4 - 10.8 fLRemisol HemeRBC (Bld) [#/Vol]4.0 E12/LLow4.3 - 5.9 E12/LRemisol HemeWBC corrected for nucl RBC Auto (Bld) [#/Vol]10.8 E9/LNormal4.0 - 11.0 E9/LRemisol HemeHep Func Panelon 23-16-3307Ynwfivh [Mass/Vol]3.9 g/dLNormal3.3-5.0[facility] HospitalComment on above:Performed By: #### [id number] #### [facility] [address], [place] [address]Aanjsxm/Globulin (S) [Mass conc ratio]1.4Kfaqoa2.1-2.2FGood Samaritan HospitalComment on above:Performed By: #### [id number] #### [facility] [address], [place] [address]UFR [Catalytic activity/Vol]116 Int._Unit/SVbvp88-88KqdvzaMagruder HospitalComment on above:Performed By: #### [id number] #### [facility] [address], [place] [address]JTU No additional P-5'-P [Catalytic activity/Vol]13 Int._Unit/L Normal6-46Magruder HospitalComment on above:Performed By: #### [id number] #### [facility] [address], [place] [address]ZIK [Catalytic activity/Vol]13 Int._Unit/LNormal5-43[facility] HospitalComment on above:Performed By: #### [id number] #### [facility] [address], [place] [address]Telveqomb [Mass/Vol]0.3 mg/dLNormal0.0-1.1FGood Samaritan HospitalComment on above:Performed By: #### [id number] #### [facility] [address] [place] [address]Xoibivlmv.direct [Mass/Vol]0.1 mg/dLNormal0.0-0.4FGood Samaritan HospitalComment on above:Performed By: #### [id number] #### [facility] [address] [place] [address]Rywuykalm.indirect [Mass or moles/Vol]0.2 mg/dLNormal0.1-0.9 [facility] HospitalComment on above:Performed By: #### [id number] #### [facility] [address], [place] [address]Myzhrtga (S) [Mass/Vol]3.4 g/dLNormal1.4-4.0[facility] HospitalComment on above:Performed By: #### [id number] #### [facility] [address], [place] [address]Nzuzcrr [Mass/Vol]7.3 g/dLNormal6.0-7.8[facility] HospitalComment on above:Performed By: #### [id number] #### [facility] [address] [place] [address]Zlkclo Levelon 90-70-8573Wigcxs [Catalytic activity/Vol]29 U/L Ayrgpk49-16OmqglyMagruder HospitalComment on above:Performed By: #### [id number] #### [facility] [address] [place] [address]XRUKTSIWQlogpko By: Tamica Chowdhury on 64-30-3660QAV.beta subunit (U) [Moles/Vol]NegativeNormalWEATHERFORD [facility] Man SeroU BetaHcg Qualon 07-22-2024 HCG.beta subunit (U) [Moles/Vol]NegativeNormalMagruder HospitalComment on above:Performed By: #### [id number] #### [facility] [address] [place] [address]KE with Cult Rflxon 61-42-4474Yaqracfy Auto Ql (U)1+ /HPF AbnormalTraceMagruder HospitalComment on above:Performed By: #### [id number] #### [facility] [address], [place] [address]Obspbpkzh Ql (U)NegativeNormalNegativeMagruder HospitalComment on above:Performed By: #### [id number] #### [facility] [facility] [address] [place] [address] 44257Etbifns (U)TurbidAbnormalCleAvita Health System [facility] Comment on above:Performed By: #### [id number] #### [facility] [address] [place] [address] 66837Fuezh (U)Light-YellowNormalYellowMagruder Hospital Comment on above:Result Comment: Microscopic readings are only performed on those samples that meet specific criteria set forth by [facility].Performed By: #### [id number] #### [facility] [address] [place] [address] 19293Kmzvqykkql cells.squamous Auto (Urine sed) [#/Area]>10Invalid Interpretation CodeMagruder HospitalComment on above:Performed By: #### [id number] #### [facility] [address], [place] [address]Ofwkgwy Ql (U)NegativeNormalNegativeMagruder Hospital Comment on above:Performed By: #### [id number] #### [facility] [address] [place] [address] 73796Nleohnsnpv Auto test strip (U) [Mass/Vol]2+ mg/dLAbnormal NegativeMagruder HospitalComment on above:Performed By: #### [id number] #### [facility] [address], [place] [address]Zztbzzc Auto test strip Ql (U)NegativeNormalNegativeMagruder HospitalComment on above:Performed By: #### [id number] #### [facility] [address] [place] [address] 79262Kkagkcytb esterase Auto test strip Ql (U)250 Po/uLAbnormal UK HealthcareComment on above:Performed By: #### [id number] #### [facility] [address] [place] [address] 51302Imoxq Auto Ql (U)TraceNormalNegKettering Health [facility] Memorial Comment on above:Performed By: #### [id number] #### [facility] [address] [place] [address] 95603Cbkihrk Auto test strip Ql (U)NegativeNormalNegativeMagruder HospitalComment on above:Performed By: #### [id number] #### [facility] [address] [place] [address] 56157bB (U)5.5 [pH]Invalid Interpretation Code5.0-9.0Magruder HospitalComment on above:Performed By: #### [id number] #### [facility] [address] [place] [address] 41368Tllxdtt Ql (U)NegativeNormalNegKettering Health Greene Memorial Comment on above:Performed By: #### [id number] #### [facility] [address] [place] [address] 56392LMF Ql (U)0-61Blfgotjh4-6UggpwfGood Samaritan HospitalComment on above:Performed By: #### [id number] #### [facility] [address], [place] [address]Jyrdxojq gravity (U) [Rel density]1.027Invalid Interpretation Code1.005-1.030Mag[facility]uder HospitalComment on above:Performed By: #### [id number] #### [facility] [address] [place] [address] 45284Bhbunziinfrt (U) [Mass/Vol]NegativeNormalNegativeMagruder HospitalComment on above:Performed By: #### [id number] #### [facility] [address] [place] [address] 78816OEG Auto (Urine sed) [#/Area]>55Gjxgnymi4-3SuhqttGood Samaritan HospitalComment on above:Performed By: #### [id number] #### [facility] [address] [place] [address] 81659Wfla of Urine collection methodClean CatchNoalMagruder HospitalComment on above:Performed By: #### [id number] #### [facility] [address] [place] [address] 36792QBHFCVBBZZWmlneax By: SYSTEM SYSTEM on 14-29-8887Sfgltrwc Auto Ql (U)1+ /HPFInvalid Interpretation CodeTrace/HPFWEATHERF[facility] UA Auto SSBilirubin Ql (U) NegativeNormalNegativemg/dLWEATHERFORD REGIONAL [facility] UA Auto SSClarity (U)Turbid *ABN* (07/22/24 6:06 PM)Invalid Interpretation CodeClearFST. MARY[facility] UA Auto SSColor (U)Light- Yellow 1 (07/22/24 6:06 PM)NormalYellowWEATHERFORD REGIONAL [facility]OSP[facility] UA Auto SSComment on above:Interpretive Data: Microscopic readings are only performed on those samples that meet specific criteria set forth by [facility].Epithelial cells.squamous Auto (Urine sed) [#/Area]>10 graded/HPFInvalid Interpretation CodeWEATHERFORD REGIONAL [facility] UA Auto SSGlucose Ql (U)NegativeNormalNegativemg/dLFT UA Auto SS Hemoglobin Auto test strip (U) [Mass/Vol]2+ mg/dLInvalid Interpretation Code Negativemg/dLFTMC UA Auto SSKetones Auto test strip Ql (U)NegativeNormal Negativemg/dLFT UA Auto SSLeukocyte esterase Auto test strip Ql (U)250 Po/uL Po/uLInvalid Interpretation CodeNegativeLeu/uLWEATHERFORD REGIONAL [facility] UA Auto SSMucus Auto Ql (U) Trace graded/LPFNormalNegativegraded/LPFFTMC UA Auto SSNitrite Auto test strip Ql (U)NegativeNormalNegativemg/dLFT UA Auto SSpH (U)5.5 *NA* (07/22/24 6:06 PM)Invalid Interpretation Code5.0 - 9.0WE[facility] UA Auto SSProtein Ql (U)NegativeNormalNegativemg/dLFT UA Auto SSRBC Ql (U)4-20 graded/HPFInvalid Interpretation Code0-3graded/HPFWEATHERFORD REGIONAL [facility] UA Auto SSSpecific gravity (U) [Rel density]1.027 *NA* (07/22/24 6:06 PM)Invalid Interpretation Code1.005 - 1.030[facility] UA Auto SS Urobilinogen (U) [Mass/Vol]NegativeNormalNegativemg/dLWEATHERFORD REGIONAL [facility]OS[facility] UA Auto SSWBC Auto (Urine sed) [#/Area]>75 graded/HPFInvalid Interpretation Code0-5graded/HPFWEATHERFORD [facility]AL [facility] UA Auto SSURINALYSISOrdered By: Treasure Burnette on 80-24-1528PD Spec DescClean Catch (07/22/24 6:06 PM)NormalWEATHERFORD REGIONAL [facility]OSP[facility] UA Auto SS eGFRon 65-28-5765BAS/1.73 sq M.predicted MDRD (S/P/Bld) [Vol rate/Area]98 mL/min/1.73 i7Vctyko>=59Fisher [facility] Samaritan HospitalComment on above:Performed By: #### [id number] #### [facility] [address], [place] [address]SAJ ( test) IA.rapid Ql (U)Ordered By: Olga Fernandez on 12-01-5710EAF ( test) Ql (U)Urine human chorionic gonadotropin (hCG) detection by immunoassayMemorial Health SystemHCG,Urineon 05-22-2024 Beta HCG ( test) Ql (U)NegativeNormMedical Center Clinic [facility] Comment on above:Result Comment: PERFORMED BY: [facility] [address] [place] [address] PATHOLOGIST PHYSICIAN SPECIALIST JOSE ALEJANDRO WEEMS M.D.Performed By: #### EZEQUIEL, MERCY HEALTH DEFIANCE HOSPITALZachery, ADDSARA #### [facility] [address] [place] [address] USALon 05-22-2024L Specimen: [id number] Received: 05/22/24 Status: RC Cali Num: [id number] Spec Type: Surgical Subm Dr: Olga Fernandez, DO Tissues: A Small Intestine - Biopsy/Polyp (SMALL BOWEL BX) B Gastric Biopsy (GASTRIC BX) C Esophagus Biopsy (ESOPHAGUS BX) D Esophagus Biopsy (ESOPHAGUS LESION AT 25) E Colon Biopsy (RIGHT COLON BX) F Colon Biopsy (LEFT COLON BX) Procedures: /12, Gross/Micro L4/6 Age/ Patient Sex Location Account Attending Physician Tracie Samuels 34/F [id number] Olga Fernandez, SPEC NUM: [id number] RECD: 05/22/24 STATUS: RC CALI NUM: [id number] CHIO: 05/22/24-1021 [facility] DR: Olga Fernandez DO ENTERED: 05/22/24-[address]: JUAN TYPE: Surgical DEPT: S ENTERED BY: [id number] RECV BY: [id number] ORDERED: HE/12, Gross/Micro L4/6 ORDERED: HE/12, Gross/Micro [...] Benign colonic mucosa with lymphoid aggregates. Specimen: Received: 05/22/24 Status: RC Leiva Num: [id number] Spec Type: Surgical Subm Dr: Olga Fernandez DO Tissues: A Small Intestine - Biopsy/Polyp (SMALL BOWEL BX) B Gastric Biopsy (GASTRIC BX) C Esophagus Biopsy (ESOPHAGUS BX) D Esophagus Biopsy (ESOPHAGUS LESION AT 25) E Colon Biopsy (RIGHT COLON BX) F Colon Biopsy (LEFT COLON BX) Procedures: /, Gross/Micro L4/6 Patient: Tracie Samuels [id number] (Continued) Specimen: Received: 05/22/24 (Continued) Pathological Diagnosis (Continued) Signed (signature on file) Ant Macias MD 05/23/24 1256 Specimen: Received: 05/22/24 Status: RC Leiva Num: [id number] Spec Type: Surgical Subm Dr: Olga Fernandez DO Tissues: A Small Intestine - Biopsy/Polyp (SMALL BOWEL BX) B Gastric Biopsy (GASTRIC BX) C Esophagus Biopsy (ESOPHAGUS BX) D Esophagus Biopsy (ESOPHAGUS LESION AT 25) E Colon Biopsy (RIGHT COLON BX) F Colon Biopsy (LEFT COLON BX) Procedures: , Gross/Micro L4/6 Patient: Tracie Samuels [id number] (Continued) Specimen: [id number] Received: 05/22/24-1200 (Continued) Pathological Diagnosis (Continued) - No evidence [...] , and small bowel BX's are two jauqez-jiménez, focally erythematous, friable, 0.3 cm each in greatest dimension tissue bits. The specimen is entirely submitted in a single cassette. (1, ns, [id number] A) J Part B is received in formalin labeled with the patients name, date of , and gastric BX's are two jaquez-jiménez, focally erythematous, friable, 0.2 and 0.4 cm in greatest dimension tissue bits. The specimen is entirely submitted in a single cassette. (1, ns, [id number] B) JG Part C is received in formalin labeled with the patients name, date of , and esophagus BX is a pale jiménez, focally (more content not included)...NormalThe [facility] gastric emptying studyon [id number] gastric emptying study [facility] [place] [address] Nuclear Medicine Report Signed Patient: Tracie Samuels MR#: [id number] 640 : 1990 Acct:[id number] Age/Sex: 34 / F ADM Date: 05/21/24 Loc: [place] Room: Type: [facility] Attending Dr: Olga Fernandez DO Copies to: DO [place] Jeffrey S DO Ordering Provider: Olga Fernandez DO Date of Service: 05/21/24 [place] gastric emptying study: K92.0 - Hematemesis Nuclear medicine gastric emptying study TECHNIQUE: Patient ingested eggs containing 1.1 mCi of technetium 99m labeled sulfur colloid HISTORY: Hematemesis. Diarrhea. Stomach pain. Cholecystectomy. COMPARISON: None The 30 minute percent retention is 78%. The one-hour percent retention at 62%. The 2 hour percent retention is 56%. The three-hour percent retention is 25%. The 4% retention is 1%. [place] gastric emptying study IMPRESSION: Adequate gastric emptying. Impression dictated by: Quique Lai M.D.05/21/2024 3:21 PM Dictation Location: [place] [address] Transcribed By: [facility] 05/21/24 1521 Dictated By: Quique Lai DO 05/21/24 1515 Signed By: 05/21/24 1521NoCone Health [facility] Physician GroupCT abdomen pelvis w conon [id number] abdomen pelvis w [facility] [address] [address] [address] Scan Report Signed Patient: Tracie Samuels MR#: [id number] 640 : 1990 Acct:[id number] Age/Sex: 33 / F ADM Date: 01/19/24 Loc: ER Room: Type: [facility] ER Attending Dr: Copies to: Flores [...] mass. Uterus and urinary bladder appear unremarkable.] Peritoneum/Retroperitoneum:No free air or free fluid or lymphadenopathy.[ Abd wall/Bones:Abdominal wall demonstrates no acute findings. Osseous structures demonstrate degenerative change.[ CT/CT abdomen pelvis w con IMPRESSION: No acute process. Punctate left nephrolithiasis. Impression dictated by: Dale Huerta Jr., D.OCheryl01/19/2024 6:09 PM Dictation Location: [place] [address] Transcribed By: [facility] 01/19/241808 Dictated By: Dale Huerta Jr, DO 01/19/241800 Signed By: 01/19/24 180NormMedical Center Clinic Physician GroupComplete Blood Count Auto Diffon [id number] (Bld) [#/Vol]0.1 10*3/uLNormal0.0-0.2The [facility] Physician GroupComment on above:Result Comment: PERFORMED BY: [address] [address] PATHOLOGIST PHYSICIAN SPECIALIST JOSE ALEJANDRO WEEMS M.D.Performed By: #### LIPASE, CMP, CBC #### [address] [place] [address] USABasophils/100 WBC (Bld)0.9 %Normal.The [facility] Physician GroupComment on above:Performed By: #### LIPASE, CMP, CBC #### [place] [address] USAEosinophils (Bld) [#/Vol]0.1 10*3/uLNormal0.0-0.45The [facility] Physician GroupComment on above:Performed By: #### LIPASE, CMP, CBC #### [place] [address] USAEosinophils/100 WBC (Bld)0.5 %Normal.The [facility] Physician GroupComment on above:Performed By: #### LIPASE, CMP, CBC #### [place] [address] USAErythrocyte distribution width (RBC) [Ratio]12.5 %Normal 11.9-15.3The [facility] Physician GroupComment on above:Performed By: #### LIPASE, CMP, CBC #### [place] [address] USAHematocrit (Bld) [Volume fraction]39.9 %Vdofud38.0-46.4The [facility] Physician GroupComment on above:Performed By: #### LIPASE, CMP, CBC #### [place] [address] USAHemoglobin (Bld) [Mass/Vol]13.2 g/zAMwhvug98.8-15.4The [facility] Physician GroupComment on above:Performed By: #### LIPASE, CMP, CBC #### [place] [address] USALymphocytes (Bld) [#/Vol]3.5 10*3/uLNormal1.00-4.8The [facility] Physician GroupComment on above:Performed By: #### LIPASE, CMP, CBC #### [place] [address] USALymphocytes/100 WBC (Bld)23.1 %Normal.The [facility] Physician GroupComment on above:Performed By: #### LIPASE, CMP, CBC #### [address] StreetH (RBC) [Entitic mass]29.9 ncOffkkf19.7-34.3The [facility] Physician GroupComment on above:Performed By: #### LIPASE, CMP, CBC #### [address]V (RBC) [Entitic vol]90.2 kGHlgbmn05-129Nne [facility] Physician GroupComment on above:Performed By: #### LIPASE, CMP, CBC #### [place] [address] USAMean Corpuscular HGB Conc33.1 g/tULewrml40.0-35.0The [facility] Physician GroupComment on above:Performed By: #### LIPASE, CMP, CBC #### [place] [address] USAMonocytes (Bld) [#/Vol]0.8 10*3/uLNormal0.0-0.8The [facility] Physician GroupComment on above:Performed By: #### LIPASE, CMP, CBC #### [place] [address] USAMonocytes/100 WBC (Bld)15.60 %Normal0.00-20.00The [facility] Physician GroupComment on above:Performed By: #### LIPASE, CMP, CBC #### [place] [address] USAMonocytes/100 WBC (Bld)5.3 %Normal.The [facility] Physician GroupComment on above:Performed By: #### LIPASE, CMP, CBC #### [place] [address] USANeutrophils (Bld) [#/Vol]10.6 10*3/uLHigh1.8-7.7The [facility] Physician GroupComment on above:Performed By: #### LIPASE, CMP, CBC #### [place] [address] USANeutrophils/100 WBC (Bld)70.2 %Normal.The [facility] Physician GroupComment on above:Performed By: #### LIPASE, CMP, CBC #### [place] [address] USANRBC%0.1 /100{WBC}Normal0-0.5The [facility] Comment on above:Performed By: #### LIPASE, CMP, CBC #### [place] [address] USAPlatelet mean volume (Bld) [Entitic vol]7.3 fLNormal 6.3-10.7The [facility] Physician GroupComment on above:Performed By: #### LIPASE, CMP, CBC #### [place] [address] USAPlatelets (Bld) [#/Vol]289 10*3/cERqpmlh917-975Qcz [facility] Physician GroupComment on above:Performed By: #### LIPASE, CMP, CBC #### [place] [address] USARBC (Bld) [#/Vol]4.42 10*6/uLNormal3.60-5.00The [facility] Physician GroupComment on above:Performed By: #### LIPASE, CMP, CBC #### [place] [address] USAWBC (Bld) [#/Vol]15.2 10*3/uLHigh3.8-11.6The [facility] Physician GroupComment on above:Performed By: #### LIPASE, CMP, CBC #### [place] [address] USAComprehensive Metabolic Panelon 56-99-0315Ajimokv [Mass/Vol]4.2 g/dLNormal3.5-5.7The [facility] Physician GroupComment on above: Performed By: #### CUU, UHCG, ADDONUAPLUS #### [place] [address] USAAlbumin/Globulin [Mass ratio]1.2 {ratio}NormalThe [facility] Physician GroupComment on above:Performed By: #### CUU, UHCG, ADDONUAPLUS #### [facility] [address] [place] [address] USAALP [Catalytic activity/Vol]104 U/DNwjsvt38-375Yah [facility] Physician GroupComment on above:Performed By: #### CUU, UHCG, ADDONUAPLUS #### [facility] [address] [place] [address] USAALT [Catalytic activity/Vol]19 U/LNormal7-52The [facility] Physician GroupComment on above:Performed By: #### CUU, UHCG, ADDONUAPLUS #### [facility] [address] [place] [address] USAAnion gap [Moles/Vol]12.0 mmol/LNormal6.0-15.0The [facility] Physician GroupComment on above:Performed By: #### CUU, UHCG, ADDONUAPLUS #### [facility] [address] [place] [address] USAAST [Catalytic activity/Vol]16 U/JTqwpde54-39Dvf [facility] Physician GroupComment on above:Performed By: #### CUU, UHCG, ADDONUAPLUS #### [facility] [address] [place] [address] USABilirubin [Mass/Vol]0.5 mg/dLNormal0.3-1.0The [facility] Physician GroupComment on above:Performed By: #### CUU, UHCG, ADDONUAPLUS #### [facility] [address] [place] [address] USACalcium [Mass/Vol]8.9 mg/dLNormal8.6-10.3The [facility] Physician GroupComment on above:Performed By: #### CUU, UHCG, ADDONUAPLUS #### [facility] [address] [place] [address] USAChloride [Moles/Vol]103 mmol/GJgooqo00-749Bbc [facility] Physician GroupComment on above:Performed By: #### CUU, UHCG, ADDONUAPLUS #### [facility] [address] [place] [address] USACO2 [Moles/Vol]26.9 mmol/RJczduz75.0-31.0The [facility] Physician GroupComment on above:Performed By: #### CUU, UHCG, ADDONUAPLUS #### [place] [address] USACreatinine [Mass/Vol]0.70 mg/dLNormal0.60-1.20The [facility] Physician GroupComment on above:Performed By: #### CUU, UHCG, ADDONUAPLUS #### [place] [address] USACreatinine Clr Calc Bnvimlil080.05NormMedical Center Clinic Physician GroupComment on above:Performed By: #### CUU, UHCG, ADDONUAPLUS #### [place] [address] USAGFR/1.73 sq M.predicted MDRD (S/P/Bld) [Vol rate/Area] mL/min/{1.73_m2}NormalThe [facility] Physician GroupComment on above:Performed By: #### CUU, UHCG, ADDONUAPLUS #### [place] [address] USAGlobulin (S) [Mass/Vol]3.6 g/dLNoCone Health [facility] Long Hospital Physician GroupComment on above:Performed By: #### CUU, UHCG, ADDONUAPLUS #### [place] [address] USAGlucose [Mass/Vol]97 mg/cCUukfgc58-039Scl [facility] Physician GroupComment on above:Result Comment: Random Glucose Reference Range is dependent on time and content of last meal. Glucose of more than 200 mg/dL in a nonstressed, ambulatory subject supports the diagnosis of Diabetes Mellitus. ADA recommended reference rangePerformed By: #### CUU, UHCG, ADDONUAPLUS #### [place] [address] USAPotassium [Moles/Vol]3.9 mmol/LNormal3.5-5.1The [facility] Physician GroupComment on above:Performed By: #### CUU, UHCG, ADDONUAPLUS #### [place] [address] USAProtein [Mass/Vol]7.8 g/dLNormal6.4-8.9The [facility] Physician GroupComment on above:Performed By: #### CUU, UHCG, ADDONUAPLUS #### [place] [address] USASodium [Moles/Vol]138 mmol/IMtboun088-553Wrl [facility] Physician GroupComment on above:Performed By: #### CUU, UHCG, ADDONUAPLUS #### [place] [address] USAUrea nitrogen [Mass/Vol]13 mg/dLNormal7-25The [facility] Physician GroupComment on above:Performed By: #### CUU, UHCG, ADDONUAPLUS #### [place] [address] USADipstick and Microscopicon 74-69-1201Ritctrmjup (U)Cloudy Critically abnormalClearThe [facility] Physician GroupComment on above:Order Comment: Name Collection Type:: Clean-Voided MidstreamPerformed By: #### CUU, UHCG, ADDONUAPLUS #### [facility] [address] [place] [address] USABacteria,UrineRareNormalNone SeenThe [facility] Physician GroupComment on above:Order Comment: Name Collection Type:: Clean-Voided MidstreamPerformed By: #### CUU, UHCG, ADDONUAPLUS #### [place] [address] USABilirubin,UrineNegativeNormalNegativeThe [facility] Physician GroupComment on above:Order Comment: Name Collection Type:: Clean- Voided MidstreamPerformed By: #### CUU, UHCG, ADDONUAPLUS #### [address] [address] USAColor (U)YellowNormalYellowThe [facility] Comment on above:Order Comment: Name Collection Type:: Clean-Voided Midstream Performed By: #### CUU, UHCG, ADDONUAPLUS #### [facility] [address] [place] [address] USAGlucose Ql (U)NormalNormalNormalThe [facility] Physician GroupComment on above:Order Comment: Name Collection Type:: Clean-Voided MidstreamPerformed By: #### CUU, UHCG, ADDONUAPLUS #### [facility] [address] [place] [address] USAHyaline Casts,UrineNoneNormal0-8The [facility] Physician GroupComment on above:Order Comment: Name Collection Type:: Clean-Voided MidstreamPerformed By: #### CUU, UHCG, ADDONUAPLUS #### [facility] [address] [place] [address] USAKetones Ql (U)NegativeNormalNegativeJackson [facility] Center Physician GroupComment on above:Order Comment: Name Collection Type:: Clean- Voided MidstreamPerformed By: #### CUU, UHCG, ADDONUAPLUS #### [facility] [address] [place] [address] USALeukocyte esterase Test strip Ql (U)2+HighNegativeJackson West Medical Center Physician GroupComment on above:Order Comment: Name Collection Type:: Clean-Voided MidstreamPerformed By: #### CUU, UHCG, ADDONUAPLUS #### [facility] [address] [place] [address] USAMucus,Urine1+Critically abnormalThe [facility] Physician GroupComment on above:Order Comment: Name Collection Type:: Clean-Voided MidstreamPerformed By: #### CUU, UHCG, ADDONUAPLUS #### [facility] [address] [place] [address] USANitrite,UrineNegativeNormalNegativeJackson West Medical Center Physician GroupComment on above:Order Comment: Name Collection Type:: Clean-Voided MidstreamPerformed By: #### CUU, UHCG, ADDONUAPLUS #### [place] [address] USAOccult Blood,Urine1+HighNegativeThe [facility] Physician GroupComment on above:Order Comment: Name Collection Type:: Clean-Voided MidstreamPerformed By: #### CUU, UHCG, ADDONUAPLUS #### [place] [address] USApH (U)7.0 [pH]Normal5.0-9.0The [facility] Comment on above:Order Comment: Name Collection Type:: Clean-Voided Midstream Performed By: #### CUU, UHCG, ADDONUAPLUS #### [place] [address] USAProtein (U) [Mass/Vol]20 mg/dLHighNegativeThe [facility] Physician GroupComment on above:Order Comment: Name Collection Type:: Clean- Voided MidstreamPerformed By: #### CUU, UHCG, ADDONUAPLUS #### [place] [address] USARBC,Urine10 [HPF]High0-4The [facility] Comment on above:Order Comment: Name Collection Type:: Clean-Voided Midstream Performed By: #### CUU, UHCG, ADDONUAPLUS #### [place] [address] USASpecificy [place],Urine1.768Uubvjc9.001-1.030The [facility], [facility] Physician GroupComment on above:Order Comment: Name Collection Type:: Clean- Voided MidstreamPerformed By: #### CUU, UHCG, ADDONUAPLUS #### [place] [address] USASquamous Epithelial Cell,Urine10 [HPF]High0-2The [facility] Physician GroupComment on above:Order Comment: Name Collection Type:: Clean- Voided MidstreamPerformed By: #### CUU, UHCG, ADDONUAPLUS #### [place] [address] USAUrobilinogen,UrineNormalNormalNormMedical Center Clinic Physician GroupComment on above:Order Comment: Name Collection Type:: Clean- Voided MidstreamPerformed By: #### CUU, UHCG, ADDONUAPLUS #### [facility] [address] [place] [address] USAWBC,Urine20 [HPF]High0-4The [facility] Comment on above:Order Comment: Name Collection Type:: Clean-Voided Midstream Performed By: #### CUU, UHCG, ADDONUAPLUS #### [facility] [address] [place] [address] USAHCG,Urineon 63-29-6092Secu HCG ( test) Ql (U) NegativeNormMedical Center Clinic Physician GroupComment on above:Order Comment: Name Collection Type:: Clean-Voided MidstreamResult Comment: PERFORMED BY: [place] [address] PATHOLOGIST PHYSICIAN SPECIALIST JOSE ALEJANDRO WEEMS M.D.Performed By: #### ADDONUAPLUS, CUU, UHCG #### [place] [address] USALipaseon [id number] [Catalytic activity/Vol]15.0 U/L Uofsal87.0-82.0The [facility], [facility] CenterComment on above:Result Comment: PERFORMED BY: [place] [address] PATHOLOGIST PHYSICIAN SPECIALIST JOSE ALEJANDRO WEEMS M.D.Performed By: #### CUU, UHCG, ADDONUAPLUS #### [place] [address] USAUrine Cultureon [id number] identified Cx Nom (U) ORGANISM: Strep agalactiae - (group b) (O:STRAGA) Waka Count 25,000 PERFORMED BY: [place] [address] PATHOLOGIST PHYSICIAN SPECIALIST JOSE ALEJANDRO WEEMS M.D.[facility] Physician GroupComment on above: Performed By: #### JARETTVERITOEZEQUIEL BRADSHAW, [facility] #### [facility] [address] [place] [address] USALaboratory - Cytologyon [id number] Cyto stain Nom (Cvx/Vag) [ID]CommentJohn J. Pershing VA Medical CenterComment on above:Ceci Rice, Woodworker (ASCP)Cytology report Cyto stain Doc (Cvx/Vag)CommentJohn J. Pershing VA Medical CenterComment on above:NEGATIVE FOR INTRAEPITHELIAL LESION OR MALIGNANCY. Cytology report Cyto stain.thin prep Doc (Cvx/Vag)CommentJohn J. Pershing VA Medical CenterComment on above:This liquid based ThinPrep(R) pap test was screened with the use of an image guided system. Statement of adequacy Cyto stain (Cvx/Vag) [Interp]CommentJohn J. Pershing VA Medical CenterComment on above:Satisfactory for evaluation. No endocervical component is identified. Laboratory - Microbiology and Antimicrobial susceptibilityon [id number] 16+18+31+33+35+39+45+51+52+56+58+59+66+68 DNA Probe+sig amp Ql (Cvx)Negative NegativeNOThree Rivers HealthcareComment on above:This nucleic acid amplification test detects fourteen high-risk HPV types (16,18,31,33,35,39,45,51,52,56,58,59,66,68) without differentiation. Microscopic observation Other stain Nom (Unsp spec).NOMS HealthcareNo Panel Informationon [id number] ICD code [Identifier]CommentJohn J. Pershing VA Medical Center Comment on above:Z12.4 Z11.51 Note:CommentJohn J. Pershing VA Medical CenterComment on above:The Pap smear is a screening test designed to aid in the detection of premalignant and malignant conditions of the uterine cervix. It is not a diagnostic procedure and should not be used as the sole means of detecting cervical cancer. Both false-positive and false-negative reports do occur. Performed at: 01 - [address] [id number] Physical Therapist Aide: Genny Stockton MD, Phone: [phone] Performed at: - [address] [id number] Physical Therapist Aide: Genny Stockton MD, Phone: [phone] Specimen Comment: No. of containers..01 ThinPrep [facility] HospitalLABFormerly [facility] Cult,Urineon [id number],UrineSpecimen Description .CLEAN CATCH URINE Special Requests Site: Urine Culture UROGENITAL ANNA 10 to 50,000 CFU/ML STREPTOCOCCI, BETA HEMOLYTIC GROUP B 10 to 50,000 CFU/ML INCLUDED IN THE ABOVE Report Status FINAL 10/28/2023Wyandot Memorial HospitalComment on above:Performed By: #### URC #### [facility] [address] [place] [address] Physical Therapist Aide: Bakari Lazo 79-35-3179Fvedn gap [Moles/Vol]10 mmol/L9 - 16 mmol/LBON SECTasteSpace HEALTHCalcium [Mass/Vol]8.8 mg/dL8.6 - 10.4 mg/dL BON SECTasteSpace HEALTHChloride [Moles/Vol]107 mmol/L98 - 107 mmol/LBON SECTasteSpace HEALTHCO2 [Moles/Vol]22 mmol/L20 - 31 mmol/LBON SECTasteSpace HEALTH Creatinine [Mass/Vol]0.8 mg/dL0.50 - 0.90 mg/dLBON Off Track PlanetEst, Glonahed Filt Rate- PINFBON CLEARSKY [facility]ABILITATION [facility]OSPITAL OF AVONDALEChesapeake PERL HOL[facility] HEALTH SYSTEMGaltney Group [facility] MEDICAL CENTERComment on above: These results are not intended [...] therapy that affects renal tubular secretion. Glucose [Mass/Vol]95 mg/dL74 - 99 mg/dLBON SECOURS BenchlingY HEALTHPotassium [Moles/Vol]4.0 mmol/L3.7 - 5.3 mmol/LBON SECTasteSpace HEALTHSodium [Moles/Vol] 139 mmol/L136 - 145 mmol/LBON SECTasteSpace HEALTHUrea nitrogen [Mass/Vol]15 mg/dL6 - 20 mg/dLBON SECOURS [facility] Metabolic Profon 51-25-3798Zbrze gap [Moles/Vol]10 mmol/LNormal9-16A[facility]ayette Medical CenterComment on above:Performed By: #### CDP, HCG, BMP #### [facility] [address] [place] [address] Physical Therapist Aide: GURPREET Lazoalcium [Mass/Vol]8.8 mg/dLNormal8.6-10.4Adena Fayette Medical CenterComment on above:Performed By: #### CDP, HCG, BMP #### [facility] [address] [place] [address] Physical Therapist Aide: Enrico Henry MDChloride [Moles/Vol]107 mmol/TEndelx87-687ZvnxxAdena Fayette Medical CenterComment on above:Performed By: #### JO, HCG, BMP #### [facility] [address] [place] [address] Physical Therapist Aide: Enrico Henry MDCO2 [Moles/Vol]22 mmol/IJvrjax00-71UuzeeAdena Fayette Medical CenterComment on above:Performed By: #### CDP, HCG, BMP #### [facility] [address] [place] [address] Physical Therapist Aide: GURPREET Lazoreatinine [Mass/Vol]0.8 mg/dLNormal0.50-0.90 [facility] Medical CenterComment on above:Performed By: #### CDP, HCG, BMP #### [facility] [address] [place] [address] Physical Therapist Aide: Enrico Henry MDGFR/1.73 sq M.predicted among non-blacks MDRD (S/P/Bld) [Vol rate/Area]mL/min/{1.73_m2}Normal>60MerSt. Rose HospitalComment on above:Result Comment: These results are not intended for [...] or following therapy that affects renal tubular secretion.Performed By: #### CDP HCG, BMP #### [facility] HospitalRent[facility] [address] [place] [address] Physical Therapist Aide: Enrico Henry MDGlucose [Mass/Vol]95 mg/yEMurppu22-08JlglqU.S. Naval HospitalComment on above:Performed By: #### CDP, HCG, BMP #### [facility] HospitalR[facility] [address] [place] [address] Physical Therapist Aide: TAMICA Lazootassium [Moles/Vol]4.0 mmol/LNormal3.7-5.3 [facility] Medical CenterComment on above:Performed By: #### CDP, HCG, BMP #### [facility] [address] [place] [address] Physical Therapist Aide: Enrico Henry MDSodium [Moles/Vol]139 mmol/SMhdana219-864XsbrkAdena Fayette Medical CenterComment on above:Performed By: #### CDP, HCG, BMP #### [facility] [address] [place] [address] Physical Therapist Aide: Enrico Henry MDUrea nitrogen [Mass/Vol]15 mg/dLNormal6-20A[facility] Medical CenterComment on above:Performed By: #### CDP, HCG, BMP #### [facility] [address] [place] [address] Physical Therapist Aide: Enrico Henry [facility] with Auto Differentialon 88-57-1291Lcxwbvakp (Bld) [#/Vol]0.06 10*3/uLBON SECOURS [facility] HEALTHBasophils/100 WBC (Bld)1 %0 - 2 %[facility] HEALTHEosinophils (Bld) [#/Vol]0.14 10*3/uLBON CLEARSKY [facility]HABILITATION HOSPITAL OF AVONDALEOURS OHIOHEALTH GRANT MEDICAL CENTEREosinophils/100 WBC (Bld)1 %1 - 4 %[facility] Erythrocyte distribution width (RBC) [Ratio]13.1 %11.8 - 14.4 %[facility] HOSPITALHematocrit (Bld) [Volume fraction]40.6 %36.3 - 47.1 %[facility] HOSPITALHemoglobin (Bld) [Mass/Vol]13.0 g/dL11.9 - 15.1 g/dLBON SECOHIOHEALTH PICKERINGTON METHODIST HOSPITALImmature granulocytes (Bld) [#/Vol]0.07 10*3/uLBON [facility] Immature granulocytes/100 WBC (Bld)1 %Kcgv6DBSSENTARA OBICI HOSPITAL Interpretation and review of laboratory resultsAbnormalSENTARA OBICI HOSPITAL Lymphocytes/100 WBC (Bld)26 %24 - 43 %[facility]I HOSPITALLymphocytes/100 WBC (Bld)3.30 %[facility]ENTERH (RBC) [Entitic mass]29.7 pg25.2 - 33.5 pgVIRGINIA HOSPITAL CENTERHC (RBC) [Mass/Vol]32.0 g/dL28.4 - 34.8 g/dLBON THE JEWISH HOSPITALV (RBC) [Entitic vol]92.7 fL82.6 - 102.9 fLSENTARA OBICI HOSPITALMonocytes/100 WBC (Bld)6 %3 - 12 %[facility] Monocytes/100 WBC (Bld)0.73 %[facility] HOSPITALNeutrophils/100 WBC (Bld)65 %36 - 65 %[facility] HOSPITALNucleated RBC/100 WBC (Bld) [Ratio]0.0 %0.0 per 100 WBCSENTARA OBICI HOSPITALPlatelet mean volume (Bld) [Entitic vol]9.0 fL8.1 - 13.5 fLSENTARA OBICI HOSPITALPlatelets (Bld) [#/Vol]251 10*3/uLBON [facility] HOSPITALRBC (Bld) [#/Vol]4.38 10*6/uL3.95 - 5.11 m/uLBON [facility] KINGS MILLS HOSPITALSegmented neutrophils/100 WBC (Bld)8.46 %Inova Health SystemWBC other (Bld) [#/Vol]12.8HInova Women's Hospital with Diffon 90-50-0059Aaj. Basophil0.06 k/uLNormal0.00-0.20A[facility] Medical CenterComment on above:Performed By: #### CDP, HCG, BMP #### [facility] [address] [place] [address] Physical Therapist Aide: Kylie Lazo.Imm.Granulocyte0.07 k/uLNormal0.00-0.30A[facility]ayette Medical CenterComment on above:Performed By: #### CDP, HCG, BMP #### [facility] [address] [place] [address] Physical Therapist Aide: Kylie Lazo.Neutrophil (Seg)8.46 k/uLHigh1.50-8.10A[facility]ayette Medical CenterComment on above:Performed By: #### CDP, HCG, BMP #### [facility] [address] [place] [address] Physical Therapist Aide: Enrico Henry MDBasophils/100 WBC (Bld)1 %Normal0-2MercHoag Memorial Hospital PresbyterianComment on above:Performed By: #### CDP, HCG, BMP #### [facility] [address] [place] [address] Physical Therapist Aide: Enrico Henry MDEosinophils (Bld) [#/Vol]0.14 10*3/uLNormal 0.00-0.44A[facility] Medical CenterComment on above:Performed By: #### CDP, HCG, BMP #### [facility] [address] [place] [address] Physical Therapist Aide: HEMALATHA Lazoosinophils/100 WBC (Bld)1 %Normal1-4A[facility]ayette Medical CenterComment on above:Performed By: #### CDP, HCG, BMP #### [facility] [address] [place] [address] Physical Therapist Aide: Enrico Henry MDErythrocyte distribution width (RBC) [Ratio]13.1 %Dacjra33.8-14.4A[facility] Medical CenterComment on above:Performed By: #### CDP, HCG, BMP #### [facility] [address] [place] [address] Physical Therapist Aide: Enrico Henry MDHematocrit (Bld) [Volume fraction]40.6 %Normal 36.3-47.1MU.S. Naval HospitalComment on above:Performed By: #### CDP, HCG, BMP #### [facility] [address] [place] [address] Physical Therapist Aide: Enrico Henry MDHemoglobin (Bld) [Mass/Vol]13.0 g/dLNormal 11.9-15.1MU.S. Naval HospitalComment on above:Performed By: #### CDP, HCG, BMP #### [facility] [address] [place] [address] Physical Therapist Aide: Enrico Henry MDImmature granulocytes/100 WBC (Bld)1 %Kfou8HsnfwAdena Fayette Medical CenterComment on above:Performed By: #### CDP, HCG, BMP #### [facility] Hospitaly [address] [address] Physical Therapist Aide: Enrico Henry MDLymphocytes (Bld) [#/Vol]3.30 10*3/uLNormal 1.10-3.70A[facility] Medical CenterComment on above:Performed By: #### CDP, HCG, BMP #### [facility] [address] [place] [address] Physical Therapist Aide: Alden Lazomphocytes/100 WBC (Bld)26 %Mwvunb08-57ZzngiAdena Fayette Medical CenterComment on above:Performed By: #### CDP, HCG, BMP #### [address] [address] Physical Therapist Aide: YEIMY LazoCH (RBC) [Entitic mass]29.7 rdYwuuzd35.2-33.5 [facility] Medical CenterComment on above:Performed By: #### CDP, HCG, BMP #### [address] [address] Physical Therapist Aide: YEIMY LazoCHC (RBC) [Mass/Vol]32.0 g/vPWpsakj44.4-34.8 [facility] Medical CenterComment on above:Performed By: #### CDP, HCG, BMP #### [address] [address] Physical Therapist Aide: YEIMY LazoCV (RBC) [Entitic vol]92.7 lPFpvwdy28.6-102.9 [facility] Medical CenterComment on above:Performed By: #### CDP, HCG, BMP #### [address] [address] Physical Therapist Aide: YEIMY Lazoonocytes (Bld) [#/Vol]0.73 10*3/uLNormal 0.10-1.20A[facility] Medical CenterComment on above:Performed By: #### CDP, HCG, BMP #### [address] [address] Physical Therapist Aide: YEIMY Lazoonocytes/100 WBC (Bld)6 %Normal3-12A[facility] Medical CenterComment on above:Performed By: #### CDP, HCG, BMP #### [address] [address] Physical Therapist Aide: Enrico Henry MDNeutrophil (Seg)65 %Bhqmlu53-26ThmokAdena Fayette Medical CenterComment on above:Performed By: #### CDP, HCG, BMP #### [facility] [address] [place] [address] Physical Therapist Aide: BRANDO Lazo Automated0.0 per 100 WBCNormal0.0A[facility]ayette Medical CenterComment on above:Performed By: #### CDP, HCG, BMP #### [address] [address] Physical Therapist Aide: Alessia Lazotelet mean volume (Bld) [Entitic vol]9.0 fL Normal8.1-13.5A[facility]ayette Medical CenterComment on above:Performed By: #### CDP, HCG, BMP #### [facility] [address] [place] [address] Physical Therapist Aide: Alessia Lazotelets (Bld) [#/Vol]251 10*3/rQNkkotg461-247 [facility] Medical CenterComment on above:Performed By: #### CDP, HCG, BMP #### [address] [address] Physical Therapist Aide: WALI Lazo (Bld) [#/Vol]4.38 10*6/uLNormal3.95-5.11 [facility] Medical CenterComment on above:Performed By: #### CDP, HCG, BMP #### [address] [address] Physical Therapist Aide: RAE Lazo (Bld) [#/Vol]12.8 10*3/uLHigh3.5-11.3MU.S. Naval HospitalComment on above:Performed By: #### CDP, HCG, BMP #### [facility] [address] [place] [address] Physical Therapist Aide: Enrico Henry, MDCT ABDOMEN PELVIS W IV CONTRASTon [id number] ABDOMEN PELVIS W IV CONTRASTEXAMINATION: CT OF THE ABDOMEN AND PELVIS WITH [...] structures are unremarkable. The bladder is contracted. Peritoneum/Retroperitoneum: The abdominal aorta is normal in caliber. No pathologic retroperitoneal adenopathy or upper abdominal ascites. Bones/Soft Tissues: No acute osseous or soft tissue abnormality. IMPRESSION: 1. No acute findings within the abdomen or pelvis. No acute bowel pathology. 2. Small quantity of free pelvic fluid, likely physiologic. Interpreted by: Jaelyn Alejandra MD Signed by: Jaelyn Alejandra MD 10/27/23 Final resultNormalMercy Glenn Medical CenterCT Abdomen and Pelvis W contrast Jennifer . No acute findings within the abdomen or pelvis. No acute bowel pathology. 2. Small quantity of free pelvic fluid, likely physiologic. MHPN RIS CONSOLIDATEDEXAMINATION: CT OF THE ABDOMEN AND PELVIS WITH [...] COMPARISON: 03/10/2020. HISTORY: ORDERING SYSTEM PROVIDED HISTORY: PRAVEEN, Left flank pain TECHNOLOGIST PROVIDED HISTORY: LLQ, [...] structures are unremarkable. The bladder is contracted. Peritoneum/Retroperitoneum: The abdominal aorta is normal in caliber. No pathologic retroperitoneal adenopathy or upper abdominal ascites. Bones/Soft Tissues: No acute osseous or soft tissue abnormality. [facility] Jaelyn Ibrahim MD - 10/27/2023 EXAMINATION: CT OF THE [...] structures are unremarkable. The bladder is contracted. Peritoneum/Retroperitoneum: The abdominal aorta is normal in caliber. No pathologic retroperitoneal adenopathy or upper abdominal ascites. Bones/Soft Tissues: No acute osseous or soft tissue abnormality. IMPRESSION: 1. No acute findings within the abdomen or pelvis. No acute bowel pathology. 2. Small quantity of free pelvic fluid, likely physiologic. [facility] HOSPITALRadiology Study observation (narrative)[facility] rSmartID Abdomen and Pelvis W contrast IVOrdered By: Jaelyn Alejandra on 10-27-2023 [facility] rSmart Work Phone: HCQ Qualitative, Serumon [id number] ( test) QlNegativeNEGATIVESENTARA OBICI HOSPITALComment on above:Specimens with hCG levels near the threshold of the test (25 mIU/mL) may give a negative or indeterminate result. In such cases, another test should be performed with a new specimen in 48-72 hours. If early is suspected clinically in this setting, correlation with quantitative serum b-hCG level is suggested. [facility] has confirmed the use of plasma for this test. This has not been cleared or approved by the U.S. Food and Drug Administration. The FDA has determined that such clearance is not necessary. [facility] BL[facility] BABIESTasteSpace [facility] MEDICAL CENTERHCG Screen, Bloodon 16-10-8784JGA Screen, BloodNegative NormalNEGMercy Glenn Medical CenterComment on above:Result Comment: Specimens with hCG levels near the threshold of the test (25 mIU/mL) may give a negative or indeterminate result. In such cases, another test should be performed with a new specimen in 48-72 hours. If early is suspected clinically in this setting, correlation with quantitative serum b-hCG level is suggested. [facility] has confirmed the use of plasma for this test. This has not been cleared or approved by the U.S. Food and Drug Administration. The FDA has determined that such clearance is not necessary.Performed By: #### CDP, HCG, BMP #### [facility] [place] [address] Physical Therapist Aide: KINZA Lazo DUP ABD PEL RETRO SCROT LIMITEDon 10-27-2023 DUP ABD PEL RETRO SCROT LIMITEDEXAMINATION: PELVIC ULTRASOUND 10/27/2023 TECHNIQUE: Transabdominal and transvaginal [...] Signed by: Ar Velasco MD 10/27/23 Final resultNormalAdena Fayette Medical CenterUS NON OB TRANSVAGINALon [id number] NON OB TRANSVAGINALEXAMINATION: PELVIC ULTRASOUND 10/27/2023 TECHNIQUE: Transabdominal and transvaginal [...] Signed by: Ar Velasco MD 10/27/23 Final resultNormTriHealth Good Samaritan HospitalUS PELVIS COMPLETEon [id number] PELVIS COMPLETEEXAMINATION: PELVIC ULTRASOUND 10/27/2023 TECHNIQUE: Transabdominal and transvaginal [...] Signed by: Ar Velasco MD 10/27/23 Final resultNormalAdena Fayette Medical CenterUrinalysis w/ Microon 49-73-1120ZmhpyuqvMsxeMmizjoLGYQQurmk Glenn Medical CenterComment on above:Performed By: #### UAMIC #### [facility] [address] [place] [address] Physical Therapist Aide: Enrico Henry MDBilirubin, SemiQt,UrNegativeNormalNEGAdena Fayette Medical CenterComment on above:Performed By: #### UAMIC #### [facility] [address] [place], [place] [id number] Physical Therapist Aide: Enrico Henry MDBlood, UrineMODERATEAbnormalNEGAdena Fayette Medical CenterComment on above:Performed By: #### UAMIC #### [facility] [address] [place] [address] Physical Therapist Aide: GURPREET Lazoasts10 TO 20 HYALINENormal0-8Adena Fayette Medical CenterComment on above:Result Comment: Reference range defined for non- centrifuged specimen.Performed By: #### UAMIC #### [address] [address] Physical Therapist Aide: GURPREET Lazolarity (U)CloudyAbnormalCLEARMercy Glenn Medical CenterComment on above:Performed By: #### UAMIC #### [address] [address] Physical Therapist Aide: GURPREET Lazoolor (U)YellowNormalYELMerSt. Rose HospitalComment on above:Performed By: #### UAMIC #### [address] [address] Physical Therapist Aide: Enrico Henry MDEpithelial cells LM Ql (Urine sed)5 TO 10Normal 0-5MerSt. Rose HospitalComment on above:Performed By: #### UAMIC #### [address] [address] Physical Therapist Aide: Enrico Henry MDGlucose Ql (U)NegativeNormalNEGMerSt. Rose HospitalComment on above:Performed By: #### UAMIC #### [address] [address] Physical Therapist Aide: Enrico Henry MDKetones Ql (U)NegativeNormalNEGMerSt. Rose HospitalComment on above:Performed By: #### UAMIC #### [address] [address] Physical Therapist Aide: Enrico Henry MDLeukocyte esterase Test strip Ql (U)SMALL AbnormalNEGMerSt. Rose HospitalComment on above:Performed By: #### UAMIC #### [address] [address] Physical Therapist Aide: Enrico Henry MDNitrite,UrNegativeNormalNEGAdena Fayette Medical CenterComment on above:Performed By: #### UAMIC #### [address] [address] Physical Therapist Aide: TAMICA Lazo,Ur5.7Erjscp0.0-8.0Adena Fayette Medical CenterComment on above:Performed By: #### UAMIC #### [address] [address] Physical Therapist Aide: TAMICA Lazorotein Ql (U)NegativeNormalNEGAdena Fayette Medical CenterComment on above:Performed By: #### UAMIC #### [address] [address] Physical Therapist Aide: MARGARITA Lazopec. [place],Ur1.389Wmhs3.005-1.030Adena Fayette Medical CenterComment on above:Performed By: #### UAMIC #### [address] [address] Physical Therapist Aide: Ash Lazo RBC's2 TO 7Wwmydd7-8DvnmvAdena Fayette Medical CenterComment on above:Result Comment: Reference range defined for non- centrifuged specimen.Performed By: #### UAMIC #### [address] [address] Physical Therapist Aide: Ash Lazo WBC's20 TO 65Jcwlsy2-6DzcotAdena Fayette Medical CenterComment on above:Performed By: #### UAMIC #### [address] [address] Physical Therapist Aide: Enrico Henry MDUrobilinogen,UrNormalNormal0.0-1.0A[facility] Fayette Medical CenterComment on above:Performed By: #### UAMIC #### [address] [address] Physical Therapist Aide: Enrico Henry MDUrinalysis with Microscopicon 39-80-3116Fbxtqfmk LM Ql (Urine sed)NoneNoneBON SECOURS MERCY HEALTHBilirubin Ql (U)Negative NEGATIVEBON SECOURS MERCY HEALTHCasts LM.LPF (Urine sed) [#/Area]10 TO 20 HYALINE Reference range defined for non-centrifuged specimen.[facility]CY HEALTHClarity (U)CloudyAbnormalClearBON SECOURS MERCY HEALTHColor (U)Yellow YellowBON SECOURS MERCY HEALTHEpithelial cells LM.HPF (Urine sed) [#/Area]5 TO 10B[facility] MERCY HEALTHGlucose Test strip (U) [Mass/Vol]NegativeNEGATIVE mg/dLBON SECOURS MERCY HEALTHHemoglobin Auto test strip Ql (U)MODERATEAbnormal NEGATIVEBON SECOURS MERCY HEALTHInterpretation and review of laboratory results AbnormalBON SECOURS MERCY HEALTHKetones (U) [Mass/Vol]NegativeNEGATIVE mg/dLBON SECOURS MERCY HEALTHLeukocyte esterase Test strip Ql (U)SMALLAbnormalNEGATIVEBON SECOURS MERCY HEALTHNitrite Ql (U)NegativeNEGATIVEBON SECOURS MERCY HEALTHpH (U)5.0 [pH]5.0 - 8.0B[facility] MERCY HEALTHProtein (U) [Mass/Vol]Negative NEGATIVE mg/dLBON SECOURS MERCY HEALTHRBC LM.HPF (Urine sed) [#/Area]2 TO 5B[facility]RS MERCY HEALTHComment on above:Reference range defined for non-centrifuged specimen.Specific gravity (U) [Rel density]1.642Uuuw8.005 - 1.030B[facility] SEC[facility]RS MERCY HEALTHUrobilinogen Qn (U)Normal0.0 - 1.0 EU/dLBON SECOURS MERCY HEALTHWBC LM.HPF (Urine sed) [#/Area]20 TO 50B[facility] SEC[facility]RS MERCY HEALTHBON SECOURS MERCY HEALTHAutomated basophil %Ordered By: Amaury Galindo on 10-04-2023 Basophils/100 WBC (Bld)0.5 %Normal.Memorial Health SystemComment on above:Performed By: #### EZEQUIEL BARAJAS UHCG #### [place] [address] USAAutomated basophil countOrdered By: Amaury Galindo on 67-68-9717Tlvgckfpd (Bld) [#/Vol]0.1 10*3/uLNormal0.0-0.2FAvita Health System Galion HospitalComment on above:Result Comment: PERFORMED BY: [place] [address] PATHOLOGIST PHYSICIAN SPECIALIST JL PERKINS M.D.Performed By: #### EZEQUIEL BARAJAS, CG #### [facility] [address] [place] [address] USAAutomated blood monocyte countOrdered By: Amaury Galindo on 11-69-7271Wplmfzfwc (Bld) [#/Vol]1.0 10*3/uLHigh0.0-0.8Memorial Health SystemComment on above:Performed By: #### EZEQUIEL BARAJAS, UHCG #### [facility] [address] [place] [address] USAAutomated eosinophil %Ordered By: Amaury Galindo on 14-25-0066Rllbxltldqk/100 WBC (Bld)1.7 %Normal.[facility] Comment on above:Performed By: #### EZEQUIEL BARAJAS, CG #### [facility] [address] [place] [address] USAAutomated eosinophil countOrdered By: Amaury Galindo on 88-94-0617Eifrqtwrjgj (Bld) [#/Vol]0.3 10*3/uLNormal0.0-0.45Memorial Health SystemComment on above:Performed By: #### SULEMA BARAJASU, UHCG #### [facility] [address] [place] [address] USAAutomated monocyte %Ordered By: Amaury Galindo on 99-00-9435Cvthoutlp/100 WBC (Bld)6.4 %Normal.[facility] Comment on above:Performed By: #### KARL CUU, UHCG #### [facility] [address] [place] [address] USAAutomated neutrophil %Ordered By: Amaury Galindo on 99-96-5983Wceenkiizwq/100 WBC (Bld)60.2 %Normal.[facility] Health SystemComment on above:Performed By: #### EZEQUIEL BARAJAS AnnG #### [place] [id number] USABacteria [Presence] in Urine by AutomatedOrdered By: Amaury Galindo on 99-63-7568Efajaokc Auto Ql (U)2+ [HPF]HighNone SeenMemorial Health SystemBasic Metabolic Panelon 37-58-9205Hawxspiiyp Clr Calc Ytmyyrzz62.19NoCone Health Wesley Long Hospital Physician GroupComment on above:Result Comment: PERFORMED BY: [place] [address] PATHOLOGIST PHYSICIAN SPECIALIST JL PERKINS M.D.Performed By: #### EZEQUIEL BARAJAS AnnG #### [place] [address] USAGFR/1.73 sq M.predicted MDRD (S/P/Bld) [Vol rate/Area] mL/min/{1.73_m2}NormalThe [facility]ly [facility] Physician [facility] Medical CenterComment on above:Performed By: #### EZEQUIEL BARAJAS, [facility] #### [place] [id number] USABilirubin Test strip Ql (U)Ordered By: Amaury Galindo on 28-21-8638Aflsubdfo Ql (U)NegativeNegativeMemorial Health SystemCT abdomen pelvis wo conon 85-31-9481VS abdomen pelvis wo [facility] [address] [place] [address] CT Scan Report Signed Patient: Tracie Samuels MR#: [id number] : 1990 Acct:[id number] Age/Sex: 33 / F ADM Date: 10/03/23 Loc: ER Room: Type: [facility] ER Attending Dr: Copies to: Amaury [...] Taylor Wiley M.D.10/04/2023 9:37 AM Dictation Location: [place] [address] Transcribed By: OCTAVIANO 10/04/2337 Dictated By: Taylor Wiley MD 10/04/23 0930 Signed By: 10/04/23 0937[facility] Physician GroupCalcium [Mass/volume] in Serum or PlasmaOrdered By: Amaury Galindo on 22-40-7665Fdqskog [Mass/Vol]8.9 mg/dL Normal8.6-10.3FAvita Health System Galion HospitalComment on above:Performed By: #### ADDONUAPLUS, CUU, UHCG #### [facility] [address] [place] [address] USACarbon dioxide, total [Moles/volume] in Serum or Plasma Ordered By: Amaury Galindo on 51-23-1374TK6 [Moles/Vol]24.5 mmol/LNormal 21.0-31.0Mem[facility] Health SystemComment on above:Performed By: #### ADDONUAPLUS, CUU, UHCG #### [place] [address] USAChloride [Moles/volume] in Serum or PlasmaOrdered By: Amaury Galindo on 57-39-7253Jnnjqrff [Moles/Vol]104 mmol/SGgqagv78-037 [facility] Health SystemComment on above:Performed By: #### ADDONUAPLUS, CUU, UHCG #### [place] [address] USAColor of Urine by AutoOrdered By: Amaury Galindo on 23-02-5390Hzpyj (U)Light-yellowNormalYellowMemorial Health System Comment on above:Order Comment: Name Collection Type:: Clean-Voided Midstream Performed By: #### CUU, UHCG, ADDONUAPLUS #### [place] [address] USAComplete Blood Count Auto Diffon 49-86-6286Zqsp Corpuscular HGB Conc33.3 g/zNYltiaa72.0-35.0The [facility] Physician GroupComment on above:Performed By: #### ADDONUAPLUS, CUU, UHCG #### [place] [address] USAMonocytes/100 WBC (Bld)18.44 %Normal0.00-20.00The [facility] Physician GroupComment on above:Performed By: #### ADDONUAPLUS, CUU, UHCG #### [place] [address] USANRBC%0.1 /100{WBC}Normal0-0.5The [facility] Physician Group Comment on above:Performed By: #### ADDONUAPLUS, CUU, UHCG #### [facility] [address] [place] [address] USACreatinine [Mass/volume] in Serum or PlasmaOrdered By: Amaury Galindo on 15-51-8289Iqfprdzfkq [Mass/Vol]0.84 mg/dLNormal0.60-1.20 [facility] Health SystemComment on above:Performed By: #### ADDONUAPLUS, CUU, UHCG #### [facility] [address] [place] [address] USADipstick and Microscopicon 52-67-6510Nyrvesja,Urine2+High None SeenThe [facility] Physician GroupComment on above:Order Comment: Name Collection Type:: Clean-Voided MidstreamPerformed By: #### CUU, UHCG, ADDONUAPLUS #### [facility] [address] [place] [address] USABilirubin,UrineNegativeNormalNegativeThe [facility] Physician GroupComment on above:Order Comment: Name Collection Type:: Clean- Voided MidstreamPerformed By: #### CUU, UHCG, ADDONUAPLUS #### [facility] [address] [place] [address] USAGlucose Ql (U)NormalNormalNormalThe [facility] Physician GroupComment on above:Order Comment: Name Collection Type:: Clean-Voided MidstreamPerformed By: #### CUU, UHCG, ADDONUAPLUS #### [facility] [address] [place] [address] USAHyaline Casts,UrineNoneNormal0-8The [facility] Physician GroupComment on above:Order Comment: Name Collection Type:: Clean-Voided MidstreamPerformed By: #### CUU, UHCG, ADDONUAPLUS #### [facility] [address] [place] [address] USAMucus,Urine1+Critically abnormalThe [facility] Physician GroupComment on above:Order Comment: Name Collection Type:: Clean-Voided MidstreamPerformed By: #### CUU, UHCG, ADDONUAPLUS #### [facility] [address] [place] [address] USANitrite,UrineNegativeNormalNegativeThe [facility] Physician GroupComment on above:Order Comment: Name Collection Type:: Clean-Voided MidstreamPerformed By: #### CUU, UHCG, ADDONUAPLUS #### [facility] [address] [place] [address] USAOccult Blood,Urine1+HighNegativeThe [facility] Physician GroupComment on above:Order Comment: Name Collection Type:: Clean-Voided MidstreamPerformed By: #### CUU, UHCG, ADDONUAPLUS #### [place] [address] USAProtein,UrineNegativeNormalNegativeThe [facility] Physician GroupComment on above:Order Comment: Name Collection Type:: Clean-Voided MidstreamPerformed By: #### CUU, UHCG, ADDONUAPLUS #### [facility] [address] [place] [address] USARBC,Aeswz9-5Izws9-9Ynj [facility] Physician GroupComment on above:Order Comment: Name Collection Type:: Clean-Voided MidstreamPerformed By: #### CUU, UHCG, ADDONUAPLUS #### [facility] [address] [place] [address] USASpecificy [place],Urine1.608Vzszdd9.001-1.030The [facility] Physician GroupComment on above:Order Comment: Name Collection Type:: Clean- Voided MidstreamPerformed By: #### CUU, UHCG, ADDONUAPLUS #### [facility] [address] [place] [address] USASquamous Epithelial Cell,Iubyu27-15Sdxm2-6Stq [facility] Physician GroupComment on above:Order Comment: Name Collection Type:: Clean- Voided MidstreamPerformed By: #### CUU, UHCG, ADDONUAPLUS #### [address] [place] [address] USAUrobilinogen,UrineNormalNormalNormalThe [facility] Physician GroupComment on above:Order Comment: Name Collection Type:: Clean- Voided MidstreamPerformed By: #### CUU, UHCG, ADDONUAPLUS #### [facility] [address] [place] [address] USAWBC CLUMP, UrineFewHighNone SeenThe [facility] Physician GroupComment on above:Order Comment: Name Collection Type:: Clean-Voided MidstreamPerformed By: #### CUU, UHCG, ADDONUAPLUS #### [facility] [address] [place] [address] USAWBC,Itlav83-58Hbpr1-9Sst [facility] Physician GroupComment on above:Order Comment: Name Collection Type:: Clean-Voided MidstreamPerformed By: #### CUU, UHCG, ADDONUAPLUS #### [place] [address] USAEpithelial cells.squamous [#/area] in Urine sediment by Automated countOrdered By: Amaury Galindo on 21-74-6389Hxuhchlrcb cells.squamous Auto (Urine sed) [#/Area]20-49 [HPF]High0-2FAvita Health System Galion HospitalErythrocyte distribution width [Ratio] by Automated countOrdered By: Amaury Galindo on 77-04-5701Ffagiedhxpd distribution width (RBC) [Ratio] 13.2 %Esrsuv38.9-15.3FAvita Health System Galion HospitalComment on above:Performed By: #### ADDONUAPLUS, CUU, UHCG #### [facility] [address] [place] [address] USAErythrocytes [#/area] in Urine sediment by Automated count Ordered By: Amaury Galindo on 47-13-0712SIU Auto (Urine sed) [#/Area]5-9 [HPF] High0-4FAvita Health System Galion HospitalErythrocytes [#/volume] in Blood by Automated countOrdered By: Amaury Galindo on 92-45-6525TED (Bld) [#/Vol]4.40 10*6/uLNormal3.60-5.00Mem[facility] Health SystemComment on above: Performed By: #### EZEQUIEL BARAJAS UHCG #### [facility] [address] [place] [address] USAGlucose [Mass/volume] in Serum or PlasmaOrdered By: Amaury Galindo on 79-80-0428Hqxshkn [Mass/Vol]98 mg/iMJolbwv16-890WziiktepnMemorial Health SystemComment on above:ADA recommended reference rangeRandom Glucose Reference Range is dependent on time and content of last meal. Glucose of more than 200 mg/dL in a nonstressed, ambulatory subject supports the diagnosisof Diabetes Mellitus.Result Comment: Random Glucose Reference Range is dependent on time and content of last meal. Glucose of more than 200 mg/dL in a nonstressed, ambulatory subject supports the diagnosis of Diabetes Mellitus. ADA recommended reference rangePerformed By: #### EZEQUIEL BARAJAS UHCG #### [facility] [address] [place] [address] USAGlucose [Mass/volume] in Urine by Test stripOrdered By: Amaury Galindo on 15-05-6092Libhlto Test strip (U) [Mass/Vol]Normal mg/dL NormalMemorial Health SystemHCG ( test) IA.rapid Ql (U) Ordered By: Amaury Galindo on 79-92-9376SLO ( test) Ql (U)Negative [facility] Health SystemHCG,Urineon 09-80-9124Oxto HCG ( test) Ql (U)NegativeTGH Brooksville Physician GroupComment on above:Order Comment: Name Collection Type:: Clean-Voided MidstreamResult Comment: PERFORMED BY: [facility] [address] [place] [address] PATHOLOGIST PHYSICIAN SPECIALIST JL PERKINS M.D.Performed By: #### JEFF NIEVES, KARL #### [facility] [address] [place] [address] USAHematocrit [Volume Fraction] of Blood by Automated count Ordered By: Amaury Galindo on 93-45-2008Olcnptcolo (Bld) [Volume fraction]39.0 %Eexern27.0-46.4FAvita Health System Galion HospitalComment on above:Performed By: #### EZEQUIEL BARAJAS UHCG #### [facility] [address] [place] [id number] USAHemoglobin Test strip Ql (U)Ordered By: Amaury Galindo on 03-68-6309Swiefsyktt Ql (U)1+[facility] Hemoglobin [Mass/volume] in BloodOrdered By: Amaury Galindo on 10-04-2023 Hemoglobin (Bld) [Mass/Vol]13.0 g/sVVoeuju69.8-15.4FAvita Health System Galion HospitalComment on above:Performed By: #### EZEQUIEL BARAJAS UHCG #### [facility] [address] [place] [address] USAHyaline casts [#/area] in Urine sediment by Automated countOrdered By: Amaury Galindo on 76-57-6551Ztcfxal casts Auto (Urine sed) [#/Area]None [LPF]0-8Memorial Health SystemKetones [Presence] in Urine by Test stripOrdered By: Amaury Galindo on 53-23-5874Ktzjhqc Ql (U) NegativeNormalNegSelect Medical Specialty Hospital - YoungstownComment on above:Order Comment: Name Collection Type:: Clean-Voided MidstreamPerformed By: #### JEFF NIEVES, JARETTONBELINDA #### [facility] [address] [place] [address] USALeukocyte clumps [Presence] in Urine by AutomatedOrdered By: Amaury Galindo on 98-89-6279Pgsvhjcla clumps Auto Ql (U)Few [LPF]HighNone SeenMemorial Health SystemLeukocyte esterase [Presence] in Urine by Test stripOrdered By: Amaury Galindo on 06-59-9696Znlmunqyn esterase Test strip Ql (U)2+HighNegSelect Medical Specialty Hospital - YoungstownComment on above: Order Comment: Name Collection Type:: Clean-Voided MidstreamPerformed By: #### EZEQUIEL, JEFF, ADDONUAPLUS #### [facility] [address] [place] [address] USALeukocytes [#/area] in Urine sediment by Automated count Ordered By: Amaury Galindo on 50-23-0003SSE Auto (Urine sed) [#/Area]20-49 [HPF]High0-4FAvita Health System Galion HospitalLeukocytes [#/volume] corrected for nucleated erythrocytes in Blood by Automated counOrdered By: Amaury Galindo on 26-84-3873LSW corrected for nucl RBC Auto (Bld) [#/Vol]15.4 10*3/uLHigh 3.8-11.6FAvita Health System Galion HospitalLeukocytes [#/volume] in Blood by Automated countOrdered By: Amaury Galindo on 70-79-9983NTN (Bld) [#/Vol]15.4 10*3/uLHigh3.8-11.6FAvita Health System Galion HospitalComment on above:Performed By: #### EZEQUIEL BARAJAS CG #### [facility] [address] [place] [id number] USALymphocytes [#/volume] in Blood by Automated countOrdered By: Amaury Galindo on 35-84-2848Iwlndbqudgt (Bld) [#/Vol]4.8 10*3/uLNormal 1.00-4.8Mem[facility] Health SystemComment on above:Performed By: #### EZEQUIEL BARAJAS UHCG #### [facility] [address] [place] [id number] USALymphocytes/100 leukocytes in Blood by Automated count Ordered By: Amaury Galindo on 61-02-5709Fgwrttimyep/100 WBC (Bld)31.2 %Normal. [facility] Health SystemComment on above:Performed By: #### EZEQUIEL BARAJAS UHCG #### [facility] [address] [place] [id number] USAMCH [Entitic mass] by Automated countOrdered By: Amaury Galindo on 96-26-3967ZHK (RBC) [Entitic mass]29.5 xrDtawqx14.7-34.3FAvita Health System Galion HospitalComment on above:Performed By: #### EZEQUIEL BARAJAS [facility]G #### [facility] [address] [place] [address] USAMCHC Auto (RBC) [Mass/Vol]Ordered By: Amaury Galindo on 62-28-8079QQTC (RBC) [Mass/Vol]33.3 g/dL32.0-35.0Mem[facility] Health SystemMCV [Entitic volume] by Automated countOrdered By: Amaury Galindo on 48-45-5497GTS (RBC) [Entitic vol]88.7 bARpvhgi07-660JzwqqnnhgMemorial Health SystemComment on above:Performed By: #### EZEQUIEL BARAJAS, AnnG #### [facility] [address] [place] [address] USAMonocyte distribution width [Entitic volume] in Blood by AutomatedOrdered By: Amaury Galindo on 07-78-8894Woicyyjq distribution width Auto (Bld) [Entitic vol]18.44 %0.00-20.00Mem[facility] Health SystemMucus [Presence] in Urine by AutomatedOrdered By: Amaury Galindo on 50-47-2218Oujdp Auto Ql (U)1+ [LPF]AbnormalMemorial Health SystemNeutrophils [#/volume] in Blood by Automated countOrdered By: Amaury Galindo on 10-04-2023 Neutrophils (Bld) [#/Vol]9.2 10*3/uLHigh1.8-7.7FAvita Health System Galion Hospital Comment on above:Performed By: #### EZEQUIEL BARAJAS, [facility] #### [facility] [address] [place] [address] USANitrite Test strip Ql (U)Ordered By: Amaury Galindo on 25-47-8081Yhvsbzg Ql (U)NegativeNegativeMemorial Health SystemNo Panel InformationOrdered By: Amaury Galindo on 28-37-2318Miyvmbenf GFR (CKD-EPI)> 60.0 mL/MinMemorial Health SystemPharmacy Creatinine Clearance (Chem97.19Memorial Health SystemNucleated erythrocytes [Presence] in Blood by Automated countOrdered By: Amaury Galindo on 10-04-2023 Nucleated RBC Auto Ql (Bld)0.1 /100{WBC}0-0.5FAvita Health System Galion Hospital Platelet mean volume [Entitic volume] in Blood by Automated countOrdered By: Amaury Galindo on 93-32-2994Hwdewdda mean volume (Bld) [Entitic vol]7.3 fL Normal6.3-10.7FAvita Health System Galion HospitalComment on above:Performed By: #### EZEQUIEL BARAJAS CG #### [facility] [address] [place] [address] USAPlatelets [#/volume] in Blood by Automated countOrdered By: Amaury Galindo on 91-28-8164Hvscdtvdx (Bld) [#/Vol]260 10*3/uLNormal 150-450Mem[facility] Health SystemComment on above:Performed By: #### EZEQUIEL BARAJAS CG #### [facility] [address] [place] [address] USAPotassium [Moles/volume] in Serum or PlasmaOrdered By: Amaury Galindo on 40-62-4690Oghmaggqq [Moles/Vol]3.6 mmol/LNormal3.5-5.1 [facility] SystemComment on above:Performed By: #### EZEQUIEL BARAJAS UHCG #### [facility] [address] [place] [address] USAProtein Test strip (U) [Mass/Vol]Ordered By: Amaury Galindo on 77-86-4743Xxanula (U) [Mass/Vol]NegativeNegativeKettering Health Prebleerum or plasma anion gap determinationOrdered By: Amaury Galindo on 11-76-9357Feyxu gap [Moles/Vol]10.1 mmol/LNormal6.0-15.0Mem[facility] Health SystemComment on above:Performed By: #### EZEQUIEL BARAJAS UHCG #### [place] [address] USASodium [Moles/volume] in Serum or PlasmaOrdered By: Amaury Galindo on 77-25-8777Cthpab [Moles/Vol]135 mmol/XRvp326-876UugrrdkcmMemorial Health SystemComment on above:Performed By: #### EZEQUIEL BARAJAS UHCG #### [place] [address] USASpecific gravity Test strip (U) [Rel density]Ordered By: Amaury Galindo on 87-46-0944Artrvyed gravity (U) [Rel density]1.0261.001-1.030 [facility] Health SystemUrea nitrogen [Mass/volume] in Serum or Plasma Ordered By: Amaury Galindo on 83-93-0988Jzac nitrogen [Mass/Vol]14 mg/dLNormal 7-[facility] Health SystemComment on above:Performed By: #### EZEQUIEL BARAJAS UHCG #### [place] [address] USAUrine Cultureon 18-86-2754Dfjbobbg identified Cx Nom (U) >100,000 colonies/ml mixed bacterial skin contaminants 2 Days PERFORMED BY: [place] [address] PATHOLOGIST PHYSICIAN SPECIALIST JL PERKINS M.D.[facility] Physician GroupComment on above:Performed By: #### JEFF NIEVES, JARETTONUAPLUS #### [place] [address] USAUrine appearanceOrdered By: Amaury Galindo on 10-04-2023 Appearance (U)CloudyCritically abnormalCleOhioHealth Dublin Methodist Hospital Comment on above:Order Comment: Name Collection Type:: Clean-Voided Midstream Performed By: #### JEFF NIEVES, JARETTONUAPLUS #### [place] [address] USAUrobilinogen Test strip (U) [Mass/Vol]Ordered By: Amaury Galindo on 02-27-9428Uctoiewrnooo (U) [Mass/Vol]Normal mg/dLNormalMemorial Health SystempH of Urine by Test stripOrdered By: Amaury Galindo on 88-24-0689aV (U)6.0 [pH]Normal5.0-9.0Mem[facility] Health SystemComment on above:Order Comment: Name Collection Type:: Clean-Voided MidstreamPerformed By: #### EZEQUIEL, MARYBELG, ADDONUAPLUS #### [facility] [address] [place] [address] USAAlanine aminotransferase [Enzymatic activity/volume] in Serum or PlasmaOrdered By: Amaury Galindo on 67-76-7828ROX [Catalytic activity/Vol]13 U/LNormal7-52Mem[facility] Health SystemComment on above: Performed By: #### EZEQUIEL, JEFF, ADDONUAPLUS #### [facility] [address] [place] [address] USAAlbumin [Mass/volume] in Serum or Plasma by Bromocresol green (BCG) dye binding methoOrdered By: Amaury Galindo on 97-06-1424Eyrrndp BCG dye [Mass/Vol]4.1 g/dL3.5-5.7FAvita Health System Galion HospitalAlkaline phosphatase [Enzymatic activity/volume] in Serum or PlasmaOrdered By: Amaury Galindo on 32-94-1235FGN [Catalytic activity/Vol]107 U/CAvic29-983VcjmisjhuMemorial Health SystemComment on above:Performed By: #### JEFF NIEVES, ADDONUAPLUS #### [facility] [address] [place] [id number] USAAspartate aminotransferase [Enzymatic activity/volume] in Serum or PlasmaOrdered By: Amaury Galindo on 13-96-2207EIX [Catalytic activity/Vol]15 U/MTszhgg52-70QrkhgydnyMemorial Health SystemComment on above: Performed By: #### EZEQUIEL, LAKHWINDERCG, ADDONUAPLUS #### [facility] [address] [place] [address] USAAutomated basophil %Ordered By: Amaury Galindo on 09-92-6368Dcpiykgqd/100 WBC (Bld)0.6 %Normal.[facility] Comment on above:Performed By: #### CUU, UHCG, ADDONUAPLUS #### [place] [address] USAAutomated basophil countOrdered By: Amaury Galidno on 57-21-1389Fxnlkalce (Bld) [#/Vol]0.1 10*3/uLNormal0.0-0.2FAvita Health System Galion HospitalComment on above:Result Comment: PERFORMED BY: [place] [address] PATHOLOGIST PHYSICIAN SPECIALIST JL PERKINS M.D.Performed By: #### CUU, UHCG, ADDONUAPLUS #### [place] [address] USAAutomated blood monocyte countOrdered By: Amaury Galindo on 56-00-6061Dlmfbrdyu (Bld) [#/Vol]0.5 10*3/uLNormal0.0-0.8Mem[facility] Health SystemComment on above:Performed By: #### CUU, UHCG, ADDONUAPLUS #### [place] [address] USAAutomated eosinophil %Ordered By: Amaury Galindo on 32-71-1605Afrndbhcfbf/100 WBC (Bld)2.1 %Normal.[facility] Comment on above:Performed By: #### CUU, UHCG, ADDONUAPLUS #### [place] [address] USAAutomated eosinophil countOrdered By: Amaury Galnido on 63-04-5860Owcnjvcuxmp (Bld) [#/Vol]0.3 10*3/uLNormal0.0-0.45Mem[facility] Health SystemComment on above:Performed By: #### CUU, UHCG, ADDONUAPLUS #### [place] [address] USAAutomated monocyte %Ordered By: Amaury Galindo on 62-88-5042Mvbhxkfiz/100 WBC (Bld)4.3 %Normal.[facility] Comment on above:Performed By: #### CUU, LAKHWINDERCG, ADDONUAPLUS #### [facility] [address] [place] [id number] USAAutomated neutrophil %Ordered By: Amaury Galindo on 81-96-3593Tnwwoywcupr/100 WBC (Bld)52.5 %Normal.[facility] Health SystemComment on above:Performed By: #### CUU, UHCG, ADDONUAPLUS #### [facility] [address] [place] [address] USABacteria [Presence] in Urine by AutomatedOrdered By: Amaury Galindo on 02-08-0260Hzxlkcft Auto Ql (U)None seen [HPF]None Seen Memorial Health SystemBasic Metabolic Panelon 46-04-1063Howbadpszu Clr Calc Bmobzjno16.60NormalThe [facility] Physician GroupComment on above: Performed By: #### CUU, UHCG, ADDONUAPLUS #### [facility] [address] [place] [address] USAGFR/1.73 sq M.predicted MDRD (S/P/Bld) [Vol rate/Area] mL/min/{1.73_m2}NormalThe [facility] Physician [facility] Medical CenterComment on above:Performed By: #### CUU, UHCG, ADDONUAPLUS #### [facility] [address] [place] [address] USABilirubin Test strip Ql (U)Ordered By: Amaury Galindo on 51-15-5393Cflgfznym Ql (U)NegativeNegativeMemorial Health System Bilirubin.direct [Mass/volume] in Serum or PlasmaOrdered By: Amaury Galindo on 98-24-5579Dtsukglen.direct [Mass/Vol]0.00 mg/dLLow0.03-0.18FAvita Health System Galion HospitalComment on above:If the DBIL is less than 0.1, IBIL is not able to becalculated.Bilirubin.total [Mass/volume] in Serum or PlasmaOrdered By: Amaury Galindo on 22-60-3756Hbsjlxtno [Mass/Vol]0.3 mg/dLNormal0.3-1.0 [facility] Health SystemComment on above:Performed By: #### SULEMAU, UHCG, KARL #### [facility] [address] [place] [address] USACT abdomen pelvis wo conon 44-13-7475IH abdomen pelvis wo [facility] [address] [place] [address] CT Scan Report Signed Patient: Tracie Samuels MR#: [id number] : 1990 Acct:[id number] Age/Sex: 33 / F ADM Date: 09/20/23 Loc: ER Room: Type: [facility] ER Attending Dr: Copies to: Jose [...] Uterus is grossly unremarkable. No adnexal mass.] Peritoneum/Retroperitoneum:No free air, free fluid or lymphadenopathy.[ Abd wall/Bones:Abdominal wall demonstrates no acute findings. Osseous structures demonstrate degenerative change.[ CT/CT abdomen pelvis wo con IMPRESSION: Left nephrolithiasis. No obstructive uropathy. Impression dictated by: Dale Huerta Jr., D.O.09/20/2023 8:52 AM Dictation Location: [place] [address] Transcribed By: [facility] 09/20/23 0852 Dictated By: Dale Huerta Jr, DO 09/20/23 0846 Signed By: 09/20/23 0852[facility] Physician GroupCalcium [Mass/volume] in Serum or PlasmaOrdered By: Amaury Galindo on 38-01-8317Uijyoke [Mass/Vol]9.0 mg/dL Normal8.6-10.3FAvita Health System Galion HospitalComment on above:Performed By: #### CUU, UHCG, ADDONUAPLUS #### [facility] [address] [place] [address] USACarbon dioxide, total [Moles/volume] in Serum or Plasma Ordered By: Amaury Galindo on 69-68-8228TL4 [Moles/Vol]23.3 mmol/LNormal 21.0-31.0Memorial Health SystemComment on above:Performed By: #### CUU, UHCG, ADDONUAPLUS #### [facility] [address] [place] [address] USAChloride [Moles/volume] in Serum or PlasmaOrdered By: Amaury Galindo on 51-50-5645Rrqmkzfn [Moles/Vol]106 mmol/NCvjpba04-327 Memorial Health SystemComment on above:Performed By: #### CUU, UHCG, ADDONUAPLUS #### [facility] [address] [place] [id number] USAColor of Urine by AutoOrdered By: Amaury Galindo on 71-49-6829Xqjac (U)Light-orangeCritically abnormalYellowMemorial Health SystemComment on above:Order Comment: Name Collection Type:: Clean- Voided MidstreamPerformed By: #### ADDONUAPLUS, CUU, UHCG #### [facility] [address] [id number] USAComplete Blood Count Auto Diffon 22-84-0329Blyf Corpuscular HGB Conc33.7 g/lFNutfig79.0-35.0The [facility], [facility] Physician GroupComment on above:Performed By: #### CUU, UHCG, ADDONUAPLUS #### [facility] [address] [place] [address] USAMonocytes/100 WBC (Bld)17.54 %Normal0.00-20.00The [facility], [facility] Physician GroupComment on above:Performed By: #### CUU, UHCG, ADDONUAPLUS #### [place] [address] USANRBC%0.1 /100{WBC}Normal0-0.5The [facility], [facility] Comment on above:Performed By: #### CUU, UHCG, ADDONUAPLUS #### [place] [address] USACreatinine [Mass/volume] in Serum or PlasmaOrdered By: Amaury Galindo on 73-35-6032Usitcdlsgy [Mass/Vol]0.88 mg/dLNormal0.60-1.20 [facility] Health SystemComment on above:Performed By: #### CUU, UHCG, ADDONUAPLUS #### [place] [address] USADipstick and Microscopicon 21-20-9146Mskbyhda,UrineNone SeenNormalNone SeenThe [facility], [facility] Physician GroupComment on above:Order Comment: Name Collection Type:: Clean-Voided MidstreamPerformed By: #### ADDONUAPLUS, CUU, UHCG #### [place] [address] USABilirubin,UrineNegativeNormalNegativeThe [facility], [facility] Physician GroupComment on above:Order Comment: Name Collection Type:: Clean- Voided MidstreamPerformed By: #### ADDONUAPLUS, CUU, UHCG #### [place] [address] USAGlucose Ql (U)NormalNormalNormalThe [facility], [facility] Physician GroupComment on above:Order Comment: Name Collection Type:: Clean-Voided MidstreamPerformed By: #### ADDONUAPLUS, CUU, UHCG #### [place] [address] USAMucus,Urine2+Critically abnormalThe [facility], [facility] Physician GroupComment on above:Order Comment: Name Collection Type:: Clean-Voided MidstreamPerformed By: #### ADDONUAPLUS, CUU, UHCG #### [place] [address] USANitrite,UrineNegativeNormalNegativeThe [facility], [facility] Physician GroupComment on above:Order Comment: Name Collection Type:: Clean-Voided MidstreamPerformed By: #### ADDONUAPLUS, CUU, UHCG #### [place] [address] USAOccult Blood,UrineTraceHighNegativeThe [facility], [facility] Physician GroupComment on above:Order Comment: Name Collection Type:: Clean-Voided MidstreamPerformed By: #### ADDONUAPLUS, CUU, UHCG #### [place] [address] USARBC,Prjln1-6Dfhy4-7Ara [facility], [facility] Physician GroupComment on above:Order Comment: Name Collection Type:: Clean-Voided MidstreamPerformed By: #### ADDONUAPLUS, CUU, UHCG #### [place] [address] USASpecificy [place],Urine1.232Gvfz2.001-1.030The [facility], [facility] Physician GroupComment on above:Order Comment: Name Collection Type:: Clean- Voided MidstreamPerformed By: #### ADDONUAPLUS, CUU, UHCG #### [place] [address] USASquamous Epithelial Cell,Xhdgq6-9Szfx0-2Meq [facility], [facility] Physician GroupComment on above:Order Comment: Name Collection Type:: Clean- Voided MidstreamPerformed By: #### ADDONUAPLUS, CUU, UHCG #### [place] [address] USAUrobilinogen,UrineNormalNormalNormalThe [facility], [facility] Physician GroupComment on above:Order Comment: Name Collection Type:: Clean- Voided MidstreamPerformed By: #### EZEQUIEL BARAJAS, UHCG #### [facility] [address] [place] [address] USAWBC,Abmun4-0Seil6-9Fgt [facility], [facility] Physician GroupComment on above:Order Comment: Name Collection Type:: Clean-Voided MidstreamPerformed By: #### KARL, CUU, UHCG #### [place] [address] USAEpithelial cells.squamous [#/area] in Urine sediment by Automated countOrdered By: Amaury Galindo on 83-46-6313Gmyguynwql cells.squamous Auto (Urine sed) [#/Area]3-4 [HPF]High0-2FAvita Health System Galion HospitalErythrocyte distribution width [Ratio] by Automated countOrdered By: Amaury Galindo on 00-43-8339Dzqadfchsem distribution width (RBC) [Ratio] 12.7 %Hfzqby56.9-15.3FAvita Health System Galion HospitalComment on above:Performed By: #### EZEQUIEL, LAKHWINDERCG, ADDONUAPLUS #### [place] [address] USAErythrocytes [#/area] in Urine sediment by Automated count Ordered By: Amaury Galindo on 82-98-7092MKF Auto (Urine sed) [#/Area]5-9 [HPF] High04FAvita Health System Galion HospitalErythrocytes [#/volume] in Blood by Automated countOrdered By: Amaury Galindo on 48-03-1073PWU (Bld) [#/Vol]4.28 10*6/uLNormal3.60-5.00Memorial Health SystemComment on above: Performed By: #### CUU, UHCG, ADDONUAPLUS #### [place] [address] USAGlucose [Mass/volume] in Serum or PlasmaOrdered By: Amaury Galindo on 78-54-0475Emuujwn [Mass/Vol]115 mg/jGEgdz04-979FliuhkmjsMemorial Health SystemComment on above:ADA recommended reference rangeRandom Glucose Reference Range is dependent on time and content of last meal. Glucose of more than 200 mg/dL in a nonstressed, ambulatory subject supports the diagnosisof Diabetes Mellitus.Result Comment: Random Glucose Reference Range is dependent on time and content of last meal. Glucose of more than 200 mg/dL in a nonstressed, ambulatory subject supports the diagnosis of Diabetes Mellitus. ADA recommended reference rangePerformed By: #### CUU, UHCG, ADDONUAPLUS #### [facility] [address] [place] [address] USAGlucose [Mass/volume] in Urine by Test stripOrdered By: Amaury Galindo on 54-27-8214Gqodejl Test strip (U) [Mass/Vol]Normal mg/dL NormalMemorial Health SystemHCG ( test) IA.rapid Ql (U) Ordered By: Amaury Galindo on 61-46-7174FCY ( test) Ql (U)Negative Memorial Health SystemHCG,Urineon 14-83-6147Dxcz HCG ( test) Ql (U)NegativeTGH Brooksville Physician GroupComment on above:Order Comment: Name Collection Type:: Clean-Voided MidstreamResult Comment: PERFORMED BY: [place] [address] PATHOLOGIST PHYSICIAN SPECIALIST JL PERKINS M.D.Performed By: #### KARL, EZEQUIEL UHCG #### [facility] [address] [place] [address] USAHematocrit [Volume Fraction] of Blood by Automated count Ordered By: Amaury Galindo on 29-17-2046Vnfbucqnfc (Bld) [Volume fraction]37.9 %Yhsxys10.0-46.4FAvita Health System Galion HospitalComment on above:Performed By: #### CUU, UHCG, ADDONUAPLUS #### [facility] [address] [place] [address] USAHemoglobin Test strip Ql (U)Ordered By: Amaury Galindo on 32-17-3622Sretnbzivr Ql (U)TraceHighNegSelect Medical Specialty [facility] Hemoglobin [Mass/volume] in BloodOrdered By: Amaury Galindo on 09-20-2023 Hemoglobin (Bld) [Mass/Vol]12.8 g/cCYonwsh57.8-15.4FAvita Health System Galion HospitalComment on above:Performed By: #### CUU, UHCG, ADDONUAPLUS #### [facility] [address] [place] [address] USAHepatic Panelon 41-37-9372Rlgmnfj [Mass/Vol]4.1 g/dLNormal 3.5-5.7The [facility] Physician GroupComment on above:Performed By: #### CUU, LAKHWINDERCG, ADDONUAPLUS #### [place] [address] USABilirubin,Indirect0.3 mg/dLNormalThe [facility] Physician [facility] Medical CenterComment on above:Performed By: #### CUU, UHCG, ADDONUAPLUS #### [facility] [address] [place] [address] USABilirubin.indirect [Mass/Vol]0.00 mg/dLLow0.03-0.18The [facility], [facility] Physician GroupComment on above:Result Comment: If the DBIL is less than 0.1, IBIL is not able to be calculated.Performed By: #### CUU, UHCG, ADDONUAPLUS #### [place] [address] USAKetones [Presence] in Urine by Test stripOrdered By: Amaury Galindo on 20-32-8755Egojbnn Ql (U)NegativeNormalNegSelect Medical Specialty Hospital - YoungstownComment on above:Order Comment: Name Collection Type:: Clean-Voided MidstreamPerformed By: #### ADDONUAPLUS, CUU, UHCG #### [place] [address] USALeukocyte esterase [Presence] in Urine by Test strip Ordered By: Amaury Galindo on 35-87-3550Wnwpvonro esterase Test strip Ql (U)3+ HighNegSelect Medical Specialty Hospital - YoungstownComment on above:Order Comment: Name Collection Type:: Clean-Voided MidstreamPerformed By: #### ADDONUAPLUS, CUU, UHCG #### [facility] [address] [place], [place] [address] USALeukocytes [#/area] in Urine sediment by Automated count Ordered By: Amaury Galindo on 02-89-4636AZE Auto (Urine sed) [#/Area]5-9 [HPF] High0-4FAvita Health System Galion HospitalLeukocytes [#/volume] corrected for nucleated erythrocytes in Blood by Automated counOrdered By: Amaury Galindo on 76-15-5253UTI corrected for nucl RBC Auto (Bld) [#/Vol]12.4 10*3/uLHigh3.8-11.6 [facility] SystemLeukocytes [#/volume] in Blood by Automated countOrdered By: Amaury Galindo on 28-92-7009LRJ (Bld) [#/Vol]12.4 10*3/uLHigh 3.8-11.6FAvita Health System Galion HospitalComment on above:Performed By: #### CUU, UHCG, ADDONUAPLUS #### [facility] [address] [place], [place] [address] USALipase [Enzymatic activity/volume] in Serum or Plasma Ordered By: Amaury Galindo on 22-37-8367Jmwqfw [Catalytic activity/Vol]36.0 U/EPmozsp83.0-82.0Memorial Health SystemComment on above:Result Comment: PERFORMED BY: [place] [id number] PATHOLOGIST PHYSICIAN SPECIALIST JL PERKINS M.D.Performed By: #### CUU, UHCG, ADDONUAPLUS #### [facility] [address] [place], [place] [address] USALymphocytes [#/volume] in Blood by Automated countOrdered By: Amaury Galindo on 74-16-0667Jvbycnrzjpy (Bld) [#/Vol]5.0 10*3/uLHigh 1.00-4.8Memorial Health SystemComment on above:Performed By: #### CUU, UHCG, ADDONUAPLUS #### [facility] [address] [place] [address] USALymphocytes/100 leukocytes in Blood by Automated count Ordered By: Amaury Galindo on 45-55-9618Llookaybvbv/100 WBC (Bld)40.5 %Normal. [facility] Health SystemComment on above:Performed By: #### CUU, UHCG, ADDONUAPLUS #### [facility] [address] [place] [address] [Entitic mass] by Automated countOrdered By: Amaury Galindo on 79-12-8724XID (RBC) [Entitic mass]29.8 koTijvgg62.7-34.3FAvita Health System Galion HospitalComment on above:Performed By: #### CUU, UHCG, ADDONUAPLUS #### [facility] [address] [place], [place] [address]HC Auto (RBC) [Mass/Vol]Ordered By: Amaury Galindo on 42-36-0270CQNG (RBC) [Mass/Vol]33.7 g/dL32.0-35.0Memorial Health SystemMCV [Entitic volume] by Automated countOrdered By: Amaury Galindo on 27-80-5099OZL (RBC) [Entitic vol]88.6 mGXzsqdb35-635WeagiqzsqMemorial Health SystemComment on above:Performed By: #### CUU, UHCG, ADDONUAPLUS #### [facility] [address] [place] [address] USAMonocyte distribution width [Entitic volume] in Blood by AutomatedOrdered By: Amaury Galindo on 43-86-0338Omeuderg distribution width Auto (Bld) [Entitic vol]17.54 %0.00-20.00Memorial Health SystemMucus [Presence] in Urine by AutomatedOrdered By: Amaury Galindo on 74-86-5633Deuuj Auto Ql (U)2+ [LPF]AbnormalMemorial Health SystemNeutrophils [#/volume] in Blood by Automated countOrdered By: Amaury Galindo on 09-20-2023 Neutrophils (Bld) [#/Vol]6.5 10*3/uLNormal1.8-7.7FAvita Health System Galion HospitalComment on above:Performed By: #### JEFF NIEVES, JARETTONUAPLUS #### [facility] [address] [place] [address] USANitrite Test strip Ql (U)Ordered By: Amaury Galindo on 43-53-5788Vjgvdiv Ql (U)NegativeNegativeMemorial Health SystemNo Panel InformationOrdered By: Amaury Galindo on 87-25-3272Jwjqkwvtm GFR (CKD-EPI)> 60.0 mL/MinMemorial Health SystemPharmacy Creatinine Clearance (Chem92.60Memorial Health SystemNucleated erythrocytes [Presence] in Blood by Automated countOrdered By: Amaury Galindo on 09-20-2023 Nucleated RBC Auto Ql (Bld)0.1 /100{WBC}0-0.5FAvita Health System Galion Hospital Platelet mean volume [Entitic volume] in Blood by Automated countOrdered By: Amaury Galindo on 22-88-6290Hycrmyqh mean volume (Bld) [Entitic vol]8.0 fL Normal6.3-10.7FAvita Health System Galion HospitalComment on above:Performed By: #### JEFF NIEVES, JARETTONUAPLUS #### [facility] [address] [place] [address] USAPlatelets [#/volume] in Blood by Automated countOrdered By: Amaury Galindo on 04-60-1005Agqyuobvh (Bld) [#/Vol]241 10*3/uLNormal 150-450Memorial Health SystemComment on above:Performed By: #### JEFF NIEVES, JARETTONUAPLUS #### [facility] [address] [place] [address] USAPotassium [Moles/volume] in Serum or PlasmaOrdered By: Amaury Galindo on 32-03-5701Soobwuopd [Moles/Vol]3.9 mmol/LNormal3.5-5.1 [facility] SystemComment on above:Performed By: #### CUU, UHCG, ADDONUAPLUS #### [place] [address] USAProtein [Mass/volume] in Serum or PlasmaOrdered By: Amaury Galindo on 91-15-0652Jwjymec [Mass/Vol]7.6 g/dLNormal6.4-8.9Mem[facility] Health SystemComment on above:Performed By: #### CUU, UHCG, ADDONUAPLUS #### [place] [address] USAProtein [Mass/volume] in Urine by Test stripOrdered By: Amaury Galindo on 89-86-3550Oewvvyx (U) [Mass/Vol]30 mg/dLHighNegative [facility] SystemComment on above:Order Comment: Name Collection Type:: Clean-Voided MidstreamPerformed By: #### JARETTONUALEEANN, CUU, UHCG #### [place] [address] USASerum globulin measurement by calculation (mass/volume) Ordered By: Amaury Galindo on 30-80-6216Qgwzmmad (S) [Mass/Vol]3.5 g/dLNormal [facility] SystemComment on above:Performed By: #### CUU, UHCG, ADDONUAPLUS #### [place] [address] USASerum or plasma albumin/globulin mass ratioOrdered By: Amaury Galindo on 70-95-1627Rmoscnw/Globulin [Mass ratio]1.2 {ratio}Normal [facility] SystemComment on above:Performed By: #### CUU, UHCG, ADDONUAPLUS #### [place] [address] USASerum or plasma anion gap determinationOrdered By: Amaury Galindo on 54-24-0856Ueuhc gap [Moles/Vol]12.6 mmol/LNormal6.0-15.0Mem[facility] Health SystemComment on above:Performed By: #### CUU, UHCG, JARETTONUAPLUS #### [facility] [address] [place] [address] USASerum or plasma non-glucuronidated bilirubin measurement (mass/volume)Ordered By: Amaury Galindo on 21-11-7716Dfubclgwn.indirect [Mass/Vol]0.3 mg/dLKettering Health Prebleodium [Moles/volume] in Serum or PlasmaOrdered By: Amaury Galindo on 23-93-0628Vzjlpr [Moles/Vol]138 mmol/MRagkbq098-013IznzlibjsMemorial Health SystemComment on above:Performed By: #### JEFF NIEVES, JARETTONUAPLUS #### [place] [address] USASpecific gravity Test strip (U) [Rel density]Ordered By: Amaury Galindo on 24-80-8735Nzefcqjg gravity (U) [Rel density]1.033High 1.001-1.030Memorial Health SystemUrea nitrogen [Mass/volume] in Serum or PlasmaOrdered By: Amaury Galindo on 67-95-1744Leud nitrogen [Mass/Vol]20 mg/dLNormal09-19Mem[facility] Health SystemComment on above:Performed By: #### EZEQUIEL, JEFF, NORMANPLUS #### [facility] [address] [place] [address] USAUrine Cultureon 86-97-0048Obzabowz identified Cx Nom (U) >100,000 colonies/ml mixed bacterial skin contaminants 2 Days PERFORMED BY: [place] [address] PATHOLOGIST PHYSICIAN SPECIALIST JL PERKINS M.D.[facility] Physician GroupComment on above:Performed By: #### KARL, EZEQUIEL, MARYBELG #### [facility] [address] [place] [address] USAUrine appearanceOrdered By: Amaury Galindo on 09-20-2023 Appearance (U)TurbidCritically abnormalCleOhioHealth Dublin Methodist Hospital Comment on above:Order Comment: Name Collection Type:: Clean-Voided Midstream Performed By: #### NORMANPLUS, CUU, UHCG #### [facility] [address] [place] [address] USAUrine culture routineOrdered By: Amaury Galindo on 00-19-2810Mrmxrumv identified Cx Nom (U)2 DaysMemorial Health System Urobilinogen Test strip (U) [Mass/Vol]Ordered By: Amaury Galindo on 09-20-2023 Urobilinogen (U) [Mass/Vol]Normal mg/dLNormalMemorial Health SystempH of Urine by Test stripOrdered By: Amaury Galindo on 32-65-3142eQ (U)7.0 [pH] Normal5.0-9.0Memorial Health SystemComment on above:Order Comment: Name Collection Type:: Clean-Voided MidstreamPerformed By: #### KARL, CUU, UHCG #### [facility] [address] [place] [address] USAXR Abdomen 1 Viewon 21-30-3836NZ Abdomen 1 ViewExam Date/Time: 09/03/2023 21:17 EDT Reason for Exam: [...] Ka,r in mGy = n/a DAP = n/aNormalMagruder HospitalBMPon 14-89-2881Ygehp gap [Moles/Vol] 12 mmol/LNormal6-16Magruder HospitalComment on above:Performed By: #### [id number] #### [facility] [address], [place] [address]Fkhrxyf [Mass/Vol]8.9 mg/dLNormal8.9-11.1FGood Samaritan HospitalComment on above:Performed By: #### [id number] #### [facility] [address], [place] [address]Dkhnuedn [Moles/Vol]105 mmol/HJuiqas604-900WzaqcmMagruder HospitalComment on above:Performed By: #### [id number] #### [facility] [address], [place] [address]FV6 [Moles/Vol]25 mmol/JJaxyid95-60YediinMagruder Hospital Comment on above:Performed By: #### [id number] #### [facility] [address], [place] [address]Ckkjbirgks [Mass/Vol]0.9 mg/dLNormal0.5-1.3FGood Samaritan HospitalComment on above:Performed By: #### [id number] #### [facility] [address], [place] [address]Ezfjwhd [Mass/Vol]89 mg/jNUcpdgc70-644QpdjxjMagruder HospitalComment on above:Performed By: #### [id number] #### [facility] [address], [place] [address]Xcejwphsr [Moles/Vol]3.9 mmol/LNormal3.5-5.3FGood Samaritan HospitalComment on above:Performed By: #### [id number] #### [facility] [address], [place] [address]Iyqfbf [Moles/Vol]138 mmol/KPrxxfz142-883UjylgxMagruder HospitalComment on above:Performed By: #### [id number] #### [facility] [address], [place] [address]Skpl nitrogen [Mass/Vol]19 mg/dLNormal5-21Magruder HospitalComment on above:Performed By: #### [id number] #### [facility] [address], [place] [address]Hrlt nitrogen/Creatinine [Mass ratio]21 No StplkDyvq52-96QepzjkMagruder HospitalComment on above:Performed By: #### [id number] #### [facility] [address] [place] [address]BfFU Quanton 33-22-5319LST.beta subunit Qnm[IU]/mLNormal1-3 Magruder HospitalComment on above:Result Comment: 'F NON < 1 - 3' ' 0.2 - 1 WEEK = 5 TO 50' ' 1 - 2 WEEKS = 50 - 500' ' 2 - 3 WEEKS = 100 - 5000' ' 3 - 4 WEEKS = 500 - 84823' ' 4 - 5 WEEKS = 1000 - 23785' ' 5 - 6 WEEKS = 03382 - 435441' ' 6 - 8 WEEKS = 12002 - 290928' ' 8 - 12 WEEKS = 34275 - 679356'Performed By: #### [id number] #### [facility] [address] [place] [address]OFI w/ Auto Diffon 12-57-6985Fwqjigppo/100 WBC (Bld)0.8 %Normal 0.0-2.0Magruder HospitalComment on above:Performed By: #### [id number] #### [facility] [address] [place] [address]Gtdhmklci/Leukocytes Auto (Bld) [Pure # fraction]0.1 E9/LNormal 0.0-0.2FGood Samaritan HospitalComment on above:Performed By: #### [id number] #### [facility] [address] [place] [address]Rtbcbbcuikr (Bld) [#/Vol]0.2 E9/LNormal0.0-0.5Fisher [facility] HospitalComment on above:Performed By: #### [id number] #### [facility] [address], [place] [address]Pnytxzywhjb/100 WBC (Bld)2.0 %Normal0.0-8.0Magruder HospitalComment on above:Performed By: #### [id number] #### [facility] [address], [place] [address]Octdrtqiwmn distribution width (RBC) [Ratio]13.1 %Normal 10.9-14.2FGood Samaritan HospitalComment on above:Performed By: #### [id number] #### [facility] [address] [place] [address]Wolhjuhgic (Bld) [Volume fraction]37.6 %Zmjrtk44.0-46.0Magruder HospitalComment on above:Performed By: #### [id number] #### [facility] [address] [place] [address]Kgypiixduc (Bld) [Mass/Vol]12.5 g/lHRavpgk96.0-16.0Magruder HospitalComment on above:Performed By: #### [id number] #### [facility] [address] [place] [address]Pbpfagqjajp (Bld) [#/Vol]4.4 E9/LHigh1.0-4.0Magruder HospitalComment on above:Performed By: #### [id number] #### [facility] [address] [place] [address]Selxjnhwodv/100 WBC (Bld)37.3 %Autvis30.0-50.0Magruder HospitalComment on above:Performed By: #### [id number] #### [facility] [address] [place] [address]CHL (RBC) [Entitic mass]29.7 yrIszuxn69.0-34.0Magruder HospitalComment on above:Performed By: #### [id number] #### [facility] [address] [place] [address]ENRK (RBC) [Mass/Vol]33.2 g/jRNrqcea67.4-36.0Magruder HospitalComment on above:Performed By: #### [id number] #### [facility] [address] [place] [address]TQA (RBC) [Entitic vol]89.4 hHBnyzgt88.0-100.0Magruder HospitalComment on above:Performed By: #### [id number] #### [facility] [address] [place] [address]Jsuqljbvg (Bld) [#/Vol]0.7 E9/LNormal0.2-1.0Magruder HospitalComment on above:Performed By: #### [id number] #### [facility] [address] [place] [address]Eggtyowlnad (Bld) [#/Vol]6.4 E9/LNormal2.0-7.5FGood Samaritan HospitalComment on above:Performed By: #### [id number] #### [facility] [address] [place] [address]Rbxonivbbap/100 WBC (Bld)53.9 %Tejczg24.0-75.0Magruder HospitalComment on above:Performed By: #### [id number] #### [facility] [address] [place] [address]Adpukyer mean volume (Bld) [Entitic vol]7.6 fLNormal6.4-10.8 [facility]ruder HospitalComment on above:Performed By: #### [id number] #### [facility] [address] [place] [address]Sgymuarrq (Bld) [#/Vol]233.0 E9/SAxmkax023.0-500.0Magruder HospitalComment on above:Performed By: #### [id number] #### [facility] [address] [place] [address]XCG (Bld) [#/Vol]4.2 E12/LLow4.3-5.9[facility] Comment on above:Performed By: #### [id number] #### Herb [facility] [address], [place] [address]OIF corrected for nucl RBC Auto (Bld) [#/Vol]11.9 E9/LHigh 4.0-11.0Magruder HospitalComment on above:Performed By: #### [id number] #### [facility] Laboratory [address], [place] [address]MLGYZWULXNggllea By: SYSTEM SYSTEM on 89-39-8755Whgga gap [Moles/Vol]12 mmol/LNormal6 - 16 mEq/LRemisol ChemCalcium [Mass/Vol]8.9 mg/dL Normal8.9 - 11.1 mg/dLRemisol ChemChloride [Moles/Vol]105 mmol/EQfwpis048 - 111 mmol/LRemisol ChemCO2 [Moles/Vol]25 mmol/UTwltik21 - 31 mmol/LRemisol Chem Creatinine [Mass/Vol]0.9 mg/dLNormal0.5 - 1.3 mg/dLRemisol ZxtfuRPL66 mL/min/1.73 q0Urwctz>=59mL/min/1.73 k3Tpoabfw ChemGlucose [Mass/Vol]89 mg/dL Qxsdmw91 - 199 mg/dLRemisol ChemHCG.beta subunit QnmIU/mLNormal1 - 3 mIU/mL Remisol ChemComment on above:Result Comment: 'F NON < 1 - 3' ' 0.2 - 1 WEEK = 5 TO 50' ' 1 - 2 WEEKS = 50 - 500' ' 2 - 3 WEEKS = 100 - 5000' ' 3 - 4 WEEKS = 500 - 64634' ' 4 - 5 WEEKS = 1000 - 56965' ' 5 - 6 WEEKS = 26004 - 217922' ' 6 - 8 WEEKS = 56315 - 813041' ' 8 - 12 WEEKS = 53821 - 125853'Potassium [Moles/Vol]3.9 mmol/LNormal3.5 - 5.3 mmol/LRemisol ChemSodium [Moles/Vol]138 mmol/RFffzvo090 - 145 mmol/L Remisol ChemUrea nitrogen [Mass/Vol]19 mg/dLNormal5 - 21 mg/dLRemisol ChemUrea nitrogen/Creatinine [Mass ratio]21 mg/snGsws18 - 20Remisol ChemED Clinical Summaryon [id number] Clinical SummaryED Clinical Summary [address] [address] ED Clinical Summary Person Information Name: TRACIE SAMUELS [place] Age: 33 Years : 1990 Sex: Female Language: Bangladeshi PCP: KATLIN FERNANDEZ DO Marital Status: Single [...] 09/03/2023 22:12:36 09/03/2023 22:12:36 09/03/2023 22:12:36 ADDRESS: [address] [place] [address] [address] [facility] [phone] PHYS DOC NOTES: MEDICAL INFORMATION: Prescriptions Given: [...] tablet) 1 Tablets By Mouth every 6 hours.Refills: 0. START: ondansetron (Zofran ODT 4 mg [...] 3 Milliliter Nebulized inhalation (aerosol) every 6 hoursas needed Shortness of breath or wheezing. albuterol [...] (Naprosyn 500 mg Tab) (more content not included)...[facility] CenterED Note-Nursingon [id number] Note-NursingED Note-Nursing Physician at bedside to review results with pt. took x5 to arouse pt awake. Pt says pain is 8/10.[facility] CenterED [facility]-Physicianon [id number] Note-PhysicianED Note-Physician Basic Information Time Seen: Jorge Oliva DO 09/03/2023 20:43 Chief Complaint Pt arrives to ed with c/o left sided flank pain,n/v, and urinary pain/frequency that started approxa week ago. Pt was seen here and [...] here was diagnosed with a kidney stone. Patientstates the pain has been unresolved since that [...] and Complexity of Problems Differential Diagnosis: [] [facility] Data External documents reviewed: [] My [...] Patient's laboratory evaluation shows slight leukocytosis of 11.9otherwise laboratory evaluations unremarkable. X-ray shows moderate stool [...] mL, IV, 983.61 mL/hr, for 30 day(s), Stopdate 10/03/23 20:54:00 EDT, STAT, Start date 09/03/23 [...] 1 tab(s), Oral, q6hr (more content not included)...Premier HealthComment on above: Result Comment: Electronically Signed By: Jorge Oliva DO\.br\Date and Time Signed: 09/03/23 22:28 EDTED Patient Summaryon [id number] Patient SummaryED Patient Summary [address] [address] Patient Discharge Instructions Person Information Name: TRACIE SAMUELS Age: 33 Years Arrival Date: 09/03/2023 20:39:54 Discharge Diagnosis: Constipation; Flank pain; Renal colic Primary Care Physician: KATLIN FERNANDEZ DO Provider Information Primary Provider: Jorge Oliva DO Advanced Sanding Line Operator:None The exam and treatment you received in the Emergency Department were for an urgent problem and are not intended as complete care. It is important that you follow up with a doctor, nurse practitioner,or physician?s religious assistant for ongoing care. If your symptoms [...] Instructions: With: Address: When: Yanick Bolivar [address] [place] [address] In 3 days 09/06/2023 With: Address: When: KATLIN FERNANDEZ [address] [place] [address] [facility] () In 3 days 09/06/2023 Comments: Take [...] participating provider. Patient Education Materials: Constipation, Adult, Argt-ef-Zszl A MESSAGE TO ALL PATIENTS REGARDING OPIOIDS PRESCRIPTION OPIOIDS: WHAT YOU NEED TO KNOW Prescription opioids can be used to help relieve pdnhwwbs-lv-ytfhfj pain and are often prescribed following a [...] and have fewer risks and side effects. Optionsmay include: ? Pain relievers such as acetaminophen, [...] dispose of unused presc (more content not included)...Premier HealthHEMATOLOGYOrdered By: SYSTEM SYSTEM on 09-03-2023 Basophils/100 WBC (Bld)0.8 %Normal0.0 - 2.0 %Remisol HemeBasophils/Leukocytes Auto (Bld) [Pure # fraction]0.1 E9/LNormal0.0 - 0.2 E9/LRemisol HemeEosinophils (Bld) [#/Vol]0.2 E9/LNormal0.0 - 0.5 E9/LRemisol HemeEosinophils/100 WBC (Bld) 2.0 %Normal0.0 - 8.0 %Remisol HemeErythrocyte distribution width (RBC) [Ratio] 13.1 %Ktilkt39.9 - 14.2 %Remisol HemeHematocrit (Bld) [Volume fraction]37.6 % Pkjxnj52.0 - 46.0 %Remisol HemeHemoglobin (Bld) [Mass/Vol]12.5 g/wSUaaqjm94.0 - 16.0 gm/dLRemisol HemeLymphocytes (Bld) [#/Vol]4.4 E9/LHigh1.0 - 4.0 E9/LRemisol HemeLymphocytes/100 WBC (Bld)37.3 %Fdfrrx07.0 - 50.0 %Remisol HemeMCH (RBC) [Entitic mass]29.7 ylEwrzjr28.0 - 34.0 pgRemisol HemeMCHC (RBC) [Mass/Vol]33.2 g/uYNobinb98.4 - 36.0 gm/dLRemisol HemeMCV (RBC) [Entitic vol]89.4 zTYlqpnp33.0 - 100.0 fLRemisol HemeMonocytes (Bld) [#/Vol]0.7 E9/LNormal0.2 - 1.0 E9/LRemisol HemeMonocytes/100 WBC (Bld)6.0 %Normal4.0 - 14.0 %Remisol HemeNeutrophils (Bld) [#/Vol]6.4 E9/LNormal2.0 - 7.5 E9/LRemisol HemeNeutrophils/100 WBC (Bld)53.9 % Qanxts02.0 - 75.0 %Remisol HemePlatelet mean volume (Bld) [Entitic vol]7.6 fL Normal6.4 - 10.8 fLRemisol HemePlatelets (Bld) [#/Vol]233.0 E9/ZIvwrjk142.0 - 500.0 E9/LRemisol HemeRBC (Bld) [#/Vol]4.2 E12/LLow4.3 - 5.9 E12/LRemisol Heme WBC corrected for nucl RBC Auto (Bld) [#/Vol]11.9 E9/LHigh4.0 - 11.0 E9/LRemisol HemeUA with Cult Rflxon 65-56-2497Zkkntjrzi Ql (U)NegativeNormalNegativeMagruder HospitalComment on above:Performed By: #### [id number] #### [facility] [address], [place] [address]Nhxifbt (U)ClearNormalClearMagruder HospitalComment on above:Performed By: #### [id number] #### [facility] [address], [place] [address]Zkita (U)Light-YellowNormalYellowMagruder Hospital Comment on above:Result Comment: Microscopic readings are only performed on those samples that meet specific criteria set forth by [facility].Performed By: #### [id number] #### [facility] [address], [place] [address]Plirvlrvnf cells.squamous Auto (Urine sed) [#/Area]5-8Invalid Interpretation CodeMagruder HospitalComment on above:Performed By: #### [id number] #### [facility] [address], [place] [address]Gjaybuk Ql (U)NegativeNormalNegativeMagruder Hospital Comment on above:Performed By: #### [id number] #### [facility] [address], [place] [address]Dimtiwygub Auto test strip (U) [Mass/Vol]1+ mg/dLAbnormal NegativeMagruder HospitalComment on above:Performed By: #### [id number] #### [facility] [address], [place] [address]Apcqzki Auto test strip Ql (U)NegativeNormalNegativeMagruder HospitalComment on above:Performed By: #### [id number] #### [facility] [address], [place] [address]Chlmcyktu esterase Auto test strip Ql (U)NegativeNormalNegative Magruder HospitalComment on above:Performed By: #### [id number] #### [facility] [address], [place] [address]Jjzir Auto Ql (U)TraceNormalNegativeMagruder Hospital Comment on above:Performed By: #### [id number] #### [facility] [address], [place] [address]Tdingvp Auto test strip Ql (U)NegativeNormalNegativeMagruder HospitalComment on above:Performed By: #### [id number] #### [facility] [address], [place] [address]iF (U)6.5 [pH]Invalid Interpretation Code5.0-9.0Magruder HospitalComment on above:Performed By: #### [id number] #### [facility] [address] [place] [address]Yguzdzs Ql (U)NegativeNormalNegativeMagruder Hospital Comment on above:Performed By: #### [id number] #### [facility] [address] [place] [address]MOP Ql (U)0-77Dvmwmcgg7-2TrlrqnGood Samaritan HospitalComment on above:Performed By: #### [id number] #### [facility] [address] [place] [address]Wkoiiooo gravity (U) [Rel density]1.028Invalid Interpretation Code1.005-1.030Magruder HospitalComment on above:Performed By: #### [id number] #### [facility] [address] [place] [address]Quwtedjtxyha (U) [Mass/Vol]NegativeNormalNegativeMagruder HospitalComment on above:Performed By: #### [id number] #### [facility] [address] [place] [address]MMA Auto (Urine sed) [#/Area]3-1Kumjgj1-6YppizhGood Samaritan HospitalComment on above:Performed By: #### [id number] #### [facility] [address] [place] [address]Dbax of Urine collection methodClean CatchPremier HealthComment on above:Performed By: #### [id number] #### [facility] [address] [place] [address]HDNSRJFGURTzznjyr By: SYSTEM SYSTEM on 93-76-4405Grdeadsnq Ql (U)NegativeNormalNegativemg/dLFTMC UA Auto SSClarity (U)Clear (09/03/23 9:06 PM)NormalClearFTMC UA Auto SSColor (U)Light-Yellow 1 (09/03/23 9:06 PM)NormalYellowFT UA Auto SSComment on above:Interpretive Data: Microscopic readings are only performed on those samples that meet specific criteria set forth by [facility].Epithelial cells.squamous Auto (Urine sed) [#/Area]5-8 graded/HPFInvalid Interpretation CodeWEATHERFORD [facility] UA Auto SSGlucose Ql (U)NegativeNormalNegativemg/dLFT UA Auto SS Hemoglobin Auto test strip (U) [Mass/Vol]1+ mg/dLInvalid Interpretation Code Negativemg/dLFT UA Auto SSKetones Auto test strip Ql (U)NegativeNormal Negativemg/dLFT UA Auto SSLeukocyte esterase Auto test strip Ql (U)Negative NormalNegativeLeu/uLFT UA Auto SSMucus Auto Ql (U)Trace graded/LPFNormal Negativegraded/LPFFTMC UA Auto SSNitrite Auto test strip Ql (U)NegativeNormal Negativemg/dLFT UA Auto SSpH (U)6.5 *NA* (09/03/23 9:06 PM)Invalid Interpretation Code5.0 - 9.0[facility] UA Auto SSProtein Ql (U)NegativeNormalNegativemg/dLFT UA Auto SSRBC Ql (U)4-20 graded/HPFInvalid Interpretation Code0-3graded/HPFFTMC UA Auto SSSpecific gravity (U) [Rel density]1.028 *NA* (09/03/23 9:06 PM)Invalid Interpretation Code1.005 - 1.030FT UA Auto SS Urobilinogen (U) [Mass/Vol]NegativeNormalNegativemg/dLWEATHERFORD REGIONAL [facility]OSP[facility] UA Auto SSWBC Auto (Urine sed) [#/Area]0-5 graded/HPFNormal0-5graded/HPFFT UA Auto SSURINALYSIS Ordered By: Jorge Oliva on 38-84-9576DF Spec DescClean Catch (09/03/23 9:06 PM)NormalWEATHERFORD REGIONAL [facility]OSPITAL [facility] UA Auto SS eGFRon 31-66-9895rBOS84 mL/min/1.73 y3Goisgz>=59Fisher [facility] Good Samaritan HospitalComment on above:Order Comment: Order added by Discern Expert.Performed By: #### [id number] #### [facility] [address] [place], [place] [address]BB Abdomen/Pelvis w/o Contraston 97-34-8524UM Abdomen/Pelvis w/o ContrastExam Date/Time: 08/27/2023 20:19 EDT Reason for Exam: [...] Given? No Oral contrast amount in ml's: 0NormalFisher [facility]att Medical CenterED Note-Physicianon 73-72-8688PT Note-PhysicianED Note-Physician Basic Information Time Seen: John POWER, Peter Gupta 08/27/2023 19:29 Chief Complaint pt arrives for c/o left sided abd pain since sunday. pt states she was seen in the ed yesterday anddx with migraine. History of Present Illness 33-year-old female reports to the emerged part with chief complaint of left- sided abdominal pain. Reports been gone since Sunday. States that she was seen yesterday in ED and diagnosed with migraine.Reports pain in her entire left side of her upper chest down to her abdomen. Denies any fevers or chills. Denies any nausea or vomiting with this. States that she is in a lot of pain. Reports multiple allergies. Denies any cardiac history. Review of Systems No other aggravating or relieving factors no other associated symptoms no other prior treatments orcomplaints. Family: Reviewed and noncontributory Social: lives at [...] and Complexity of Problems Differential Diagnosis: [] [facility] Data External documents reviewed: [] My [...] have left-sided flank pain, no other acute findings.Due to concerns we did give pain medicine [...] day(s), # 28 cap(s), Refills(s) 0, Pharmacy: [facility], 150, cm, 08/27/23 19:10:00 EDT, Height/Length [...] PRN Nausea/Vomiting, # 12 tab(s), Refills(s) 0, Pharmacy:[facility], 150, cm, 08/27/23 19:10:00 EDT, Height/Length [...] 08/27/23 19:45:00 EDT, 153 mL/hr, Infuse over 20minute(s) Sodium Chloride 0.9% intravenous solution, 1,000 mL, (more content not included)...Premier HealthComment on above:Result Comment: Electronically Signed By: Peter Lopez PA-C\.br\Date and Time Signed: 08/26/2422:25 EDT\.br\Electronically Co-Signed By: Jorge Oliva DO\.br\Date and Time Co-Signed: 08/28/23 06:39 EDTXR Chest 2 Viewson [id number] Chest 2 ViewsExam Date/Time: 08/27/2023 20:31 EDT Reason for Exam: [...] Hayden in mGy = n/a DAP = n/aNormalMagruder HospitalB hCG Qualon 27-18-9104Ogip HCG ( test) QlNegativeNormAccess Hospital DaytonComment on above: Performed By: #### [id number] #### [facility] [address] [place] [address]KLYcl 67-43-0306Omhli gap [Moles/Vol]10 mmol/LNormal6-16Magruder HospitalComment on above:Performed By: #### [id number] #### [facility] [address], [place] [address]Lqfuwco [Mass/Vol]8.7 mg/dLLow8.9-11.1Fisher [facility] Good Samaritan HospitalComment on above:Performed By: #### [id number] #### [facility] [address], [place] [address]Jddrfvkh [Moles/Vol]106 mmol/JEfqpos187-972VwsvcvMagruder HospitalComment on above:Performed By: #### [id number] #### [facility] [address], [place] [address]NH3 [Moles/Vol]27 mmol/TJkyzll40-84ZuyfxmMagruder Hospital Comment on above:Performed By: #### [id number] #### [facility] [address], [place] [address]Esoocxciel [Mass/Vol]0.7 mg/dLNormal0.5-1.3FGood Samaritan HospitalComment on above:Performed By: #### [id number] #### [facility] [address], [place] [address]Lwjkjyn [Mass/Vol]88 mg/yPWiteod28-902MpjflcMagruder HospitalComment on above:Performed By: #### [id number] #### [facility] [address], [place] [address]Iozzdlbuh [Moles/Vol]3.9 mmol/LNormal3.5-5.3FGood Samaritan HospitalComment on above:Performed By: #### [id number] #### [facility] [address], [place] [address]Atdowl [Moles/Vol]139 mmol/OPygwve788-516BrgpnzMagruder HospitalComment on above:Performed By: #### [id number] #### [facility] [address] [place] [address]Jbzq nitrogen [Mass/Vol]9 mg/dLNormal5-21Magruder HospitalComment on above:Performed By: #### [id number] #### [facility] [address], [place] [address]Wgfx nitrogen/Creatinine [Mass ratio]13 No DbsoyFkvbqx71-55 Magruder HospitalComment on above:Performed By: #### [id number] #### [facility] [address], [place] [address]DFI w/ Auto Diffon 99-64-9355Fdfagyfzr/100 WBC (Bld)0.6 %Normal 0.0-2.0Magruder HospitalComment on above:Performed By: #### [id number] #### [facility] [address] [place] [address]Jgknllmtf/Leukocytes Auto (Bld) [Pure # fraction]0.1 E9/LNormal 0.0-0.2FGood Samaritan HospitalComment on above:Performed By: #### [id number] #### [facility] [address] [place] [address]Ninahmbvfmz (Bld) [#/Vol]0.1 E9/LNormal0.0-0.5FGood Samaritan HospitalComment on above:Performed By: #### [id number] #### [facility] [address] [place] [address]Slhjhcowueo/100 WBC (Bld)1.0 %Normal0.0-8.0Magruder HospitalComment on above:Performed By: #### [id number] #### [facility] [address] [place] [address]Zwfzxevljxf distribution width (RBC) [Ratio]13.4 %Normal 10.9-14.2FGood Samaritan HospitalComment on above:Performed By: #### [id number] #### [facility] [address] [place] [address]Rjjvdrhswu (Bld) [Volume fraction]38.4 %Rsbnup49.0-46.0Magruder HospitalComment on above:Performed By: #### [id number] #### [facility] [address] [place] [address]Eirwwtpffb (Bld) [Mass/Vol]12.6 g/uKJsqvfi29.0-16.0Magruder HospitalComment on above:Performed By: #### [id number] #### [facility] [address] [place] [address]Oijcnuyhhtp (Bld) [#/Vol]3.9 E9/LNormal1.0-4.0Magruder HospitalComment on above:Performed By: #### [id number] #### [facility] [address] [place] [address]Fwlewbatoho/100 WBC (Bld)34.3 %Knibgz39.0-50.0Magruder HospitalComment on above:Performed By: #### [id number] #### [facility] [address] [place] [address]29[address]KSH (RBC) [Entitic mass]29.4 moVihrha02.0-34.0Magruder HospitalComment on above:Performed By: #### [id number] #### [facility] [address] [place] [address]26[address]QAME (RBC) [Mass/Vol]32.9 g/xRUtwdoa50.4-36.0Magruder HospitalComment on above:Performed By: #### [id number] #### [facility] [address] [place] [address]DDV (RBC) [Entitic vol]89.4 oUGhyjmn90.0-100.0Magruder HospitalComment on above:Performed By: #### [id number] #### [facility] [address] [place] [address] 907[address]Gxbutayxo (Bld) [#/Vol]0.7 E9/LNormal0.2-1.0Magruder HospitalComment on above:Performed By: #### [id number] #### [facility] [address] [place] [address]Jcbpeeqclqj (Bld) [#/Vol]6.6 E9/LNormal2.0-7.5FGood Samaritan HospitalComment on above:Performed By: #### [id number] #### [facility] [address] [place] [address] 30[address]Xjhvysfpudy/100 WBC (Bld)57.9 %Dspmns57.0-75.0Magruder HospitalComment on above:Performed By: #### [id number] #### [facility] [address] [place] [address] 79[address]Ugvuofbv mean volume (Bld) [Entitic vol]7.5 fLNormal6.4-10.8 Magruder HospitalComment on above:Performed By: #### [id number] #### [facility] [address], [place] [address]Omjrvohhl (Bld) [#/Vol]241.0 E9/BQllnyi614.0-500.0Magruder HospitalComment on above:Performed By: #### [id number] #### [facility] [address], [place] [address]YHG (Bld) [#/Vol]4.3 E12/LNormal4.3-5.9Magruder HospitalComment on above:Performed By: #### [id number] #### [facility] [address] [place] [address] 99[address]CGU corrected for nucl RBC Auto (Bld) [#/Vol]11.5 E9/LHigh 4.0-11.0Magruder HospitalComment on above:Performed By: #### [id number] #### [facility] [address] [place] [address]UTQAISGXVQprfyql By: SYSTEM SYSTEM on 93-63-7027Drvorrn [Mass/Vol]4.0 g/dLNormal3.3 - 5.0 gm/dLRemisol ChemAlbumin/Globulin [Mass ratio] 1.3 {ratio}Normal1.1 - 2.2Remisol ChemALP [Catalytic activity/Vol]90 [iU]/d Zchkyo91 - 98 Int._Unit/LRemisol ChemALT No additional P-5'-P [Catalytic activity/Vol]13 [iU]/dNormal6 - 46 Int._Unit/LRemisol ChemAnion gap [Moles/Vol] 10 mmol/LNormal6 - 16 mEq/LRemisol ChemAST [Catalytic activity/Vol]16 [iU]/d Normal5 - 43 Int._Unit/LRemisol ChemBilirubin [Mass/Vol]0.5 mg/dLNormal0.0 - 1.1 mg/dLRemisol ChemBilirubin.direct [Mass/Vol]0.1 mg/dLNormal0.0 - 0.4 mg/dL Remisol ChemBilirubin.indirect [Mass or moles/Vol]0.4 mg/dLNormal0.1 - 0.9 mg/dL Remisol ChemCalcium [Mass/Vol]8.7 mg/dLLow8.9 - 11.1 mg/dLRemisol ChemChloride [Moles/Vol]106 mmol/PWedxni438 - 111 mmol/LRemisol ChemCO2 [Moles/Vol]27 mmol/L Uyptey51 - 31 mmol/LRemisol ChemCreatinine [Mass/Vol]0.7 mg/dLNormal0.5 - 1.3 mg/dLRemisol HkogmKNN856 mL/min/1.73 v4Nnyhte>=59mL/min/1.73 f2Bxfixhc Chem Globulin (S) [Mass/Vol]3.0 g/dLNormal1.4 - 4.0 gm/dLRemisol ChemGlucose [Mass/Vol]88 mg/cVKqpstr03 - 199 mg/dLRemisol ChemLipase [Catalytic activity/Vol]11 U/LLow13 - 58 unit/LRemisol ChemPotassium [Moles/Vol]3.9 mmol/L Normal3.5 - 5.3 mmol/LRemisol ChemProtein [Mass/Vol]7.0 g/dLNormal6.0 - 7.8 gm/dLRemisol ChemSodium [Moles/Vol]139 mmol/HEizebt628 - 145 mmol/LRemisol Chem Troponin HS2.90 pg/mLLow10.10 - 27.10 pg/mLRemisol ChemComment on above: Interpretive Data: The 95% CI (Confidence Interval) PPV (Positive Predictive Value) for myocardial infarction in females is 38 pg/mL, in males 51 pg/mL. The results should be used in conjunction withclinical conditions of myocardial infarction. (Access High Sensitivity Troponin I Instructions For Use, Sharon Wataga, September 2017)Urea nitrogen [Mass/Vol]9 mg/dLNormal5 - 21 mg/dLRemisol ChemUrea nitrogen/Creatinine [Mass ratio]13 mg/jwCcxwcl37 - 20Remisol ChemCOAGULATION Ordered By: Ian Gandhi on 22-54-0481xQCH Coag (PPP) [Time]28.5 cAyhxzo93.1 - 36.5 second(s)[facility] Auto CoagComment on above:Interpretive Data: Parameter 15 days - 4 weeks 1 - [...] the same coagulation reagent and instrumentation as [facility]. Currently there are no coagulation studies available worldwide for children to 14 days, andno normal ranges. Heparin therapeutic range (represented by Anti-Factor Xa activity of 0.2 - 0.4 U/mL) corresponds to PTT of 56.6 - 109.0 sec.INR Coag (PPP) [Relative time]1.07 {INR}Invalid Interpretation CodeWEATHERFORD REGIONAL [facility]OSPITAL [facility] Auto CoagComment on above:Interpretive Data: INR results are specifically intended to assess patients stabilized on long-term Anticoagulation therapy suggested INR s Less Intensive Anticoagulation 2.0 3.0 Conventional Range 3.0 4.5PT Coag (PPP) [Time]12.0 sNormal9.4 - 12.5 second(s) [facility] Auto CoagComment on above:Interpretive Data: 15 days - 4 weeks 1 - 5 months 6 -11 months 1 5 years 6 10 years 11 -17 years Mean: 11.2 (9.5 12.6) Mean: 11.0 (9.7 12.8) Mean: 11.0 (9.8 13.0) Mean: 11.3 (9.9 13.4) Mean: 11.7 (10.0 14.6) Mean: 11.8 (10.0 - 14.1) Pediatric Reference ranges were obtained from a study by sheldon Marshall prepared from 1437 samples obtained at 7 different centers using the same coagulation reagent and instrumentation as [facility]. Currently there are no coagulation studies available worldwide for children to 14 days, andno normal ranges.ED Clinical Summaryon [id number] Clinical SummaryED Clinical Summary [address] [address] ED Clinical Summary Person Information Name: TRACIE SAMUELS [place]/[facility] Age: 33 Years : 1990 Sex: Female Language: Bangladeshi PCP: KATLIN FERNANDEZ DO Marital Status: Single [...] 08/27/2023 23:24:04 08/27/2023 23:24:04 08/27/2023 23:24:04 ADDRESS: [address] [place] [address] [address] [place] [id number] PHYS DOC NOTES: MEDICAL INFORMATION: Prescriptions Given: Medications to Continue Taking That Have Changed [facility], [address] [place], [place] [id number], [phone] START: dicyclomine (Bentyl 10 mg Cap) 1 [...] 3 Milliliter Nebulized inhalation (aerosol) every 6 hoursas needed Shortness of breath or wheezing. albuterol [...] mg DR Tab) polyethy (more content not included)...NormalTrihealth CenterED Note-Nursingon 93-22-6559UQ Note-NursingED Note-Nursing Patient sent home with a urine strainer and specimen cups. Patient given directions on how to strain her urine each time, states an understanding.Normal [facility] Patient Summaryon [id number] Patient SummaryED Patient Summary [place] [address] Patient Discharge Instructions Person Information Name: TRACIE SAMUELS Age: 33 Years Arrival Date: 08/27/2023 19:03:58 Discharge Diagnosis: Left flank pain; Stone in kidney Primary Care Physician: KATLIN FERNANDEZ DO Provider Information Primary Provider: Jorge Oliva DO Advanced Sanding Line Operator:None The exam and treatment you received in the Emergency Department were for an urgent problem and are not intended as complete care. It is important that you follow up with a doctor, nurse practitioner,or physician?s religious assistant for ongoing care. If your symptoms [...] Follow-up Instructions: With: Address: When: KATLIN FERNANDEZ [address] [place], [place] [id number] Business (1) In 3 days 08/30/2023 Comments: Call [...] opioids can be used to help relieve psgtjxbm-gj-fpujnh pain and are often prescribed following a [...] and have fewer risks and side effects. Optionsmay include: ? Pain relievers such as acetaminophen, [...] unused prescription opioids: Find your community drug take- back program or [employer] mail-back program, or flush them down the toilet, following guidance from the Food and Drug Administration (www.fda.gov/Drugs/ResourcesForYou). ? Visit www.cdc.gov/drugoverdose to learn about the risks of opioids abuse and overdose. ? If you believe you may be struggling with addiction, tell your health respiratory care assistant and ask for guidance or call [facility] (more content not included)... Premier HealthHEMATOLOGYOrdered By: SYSTEM SYSTEM on 99-45-8469Azbdomupn/100 WBC (Bld)0.6 %Normal0.0 - 2.0 %Remisol Heme Basophils/Leukocytes Auto (Bld) [Pure # fraction]0.1 E9/LNormal0.0 - 0.2 E9/L Remisol HemeEosinophils (Bld) [#/Vol]0.1 E9/LNormal0.0 - 0.5 E9/LRemisol Heme Eosinophils/100 WBC (Bld)1.0 %Normal0.0 - 8.0 %Remisol HemeErythrocyte distribution width (RBC) [Ratio]13.4 %Cfsfyr05.9 - 14.2 %Remisol HemeHematocrit (Bld) [Volume fraction]38.4 %Yucuqg80.0 - 46.0 %Remisol HemeHemoglobin (Bld) [Mass/Vol]12.6 g/kFTacfvk25.0 - 16.0 gm/dLRemisol HemeLymphocytes (Bld) [#/Vol] 3.9 E9/LNormal1.0 - 4.0 E9/LRemisol HemeLymphocytes/100 WBC (Bld)34.3 %Normal 14.0 - 50.0 %Remisol HemeMCH (RBC) [Entitic mass]29.4 dtTrrhlb05.0 - 34.0 pg Remisol HemeMCHC (RBC) [Mass/Vol]32.9 g/lCFjvlxr35.4 - 36.0 gm/dLRemisol HemeMCV (RBC) [Entitic vol]89.4 dTHqqxzo00.0 - 100.0 fLRemisol HemeMonocytes (Bld) [#/Vol]0.7 E9/LNormal0.2 - 1.0 E9/LRemisol HemeMonocytes/100 WBC (Bld)6.2 % Normal4.0 - 14.0 %Remisol HemeNeutrophils (Bld) [#/Vol]6.6 E9/LNormal2.0 - 7.5 E9/LRemisol HemeNeutrophils/100 WBC (Bld)57.9 %Xdbcbi06.0 - 75.0 %Remisol Heme Platelet mean volume (Bld) [Entitic vol]7.5 fLNormal6.4 - 10.8 fLRemisol Heme Platelets (Bld) [#/Vol]241.0 E9/RZsdykl333.0 - 500.0 E9/LRemisol HemeRBC (Bld) [#/Vol]4.3 E12/LNormal4.3 - 5.9 E12/LRemisol HemeWBC corrected for nucl RBC Auto (Bld) [#/Vol]11.5 E9/LHigh4.0 - 11.0 E9/LRemisol HemeHep Func Panelon 35-93-3462Llkqswd [Mass/Vol]4.0 g/dLNormal3.3-5.0[facility] Comment on above:Performed By: #### [id number] #### Herb [facility] [address], [place] [address]Zgzfzed/Globulin (S) [Mass conc ratio]1.4Uczedl0.1-2.2FGood Samaritan HospitalComment on above:Performed By: #### [id number] #### [facility] [address] [place] [address] 150[address]KIU [Catalytic activity/Vol]90 Int._Unit/DIfudvm69-45NdxjxkMagruder HospitalComment on above:Performed By: #### [id number] #### [facility] [address], [place] [address]PGN No additional P-5'-P [Catalytic activity/Vol]13 Int._Unit/L Normal6-46[facility] HospitalComment on above:Performed By: #### [id number] #### [facility] [address] [place] [address] 70667EXN [Catalytic activity/Vol]16 Int._Unit/LNormal5-43[facility] HospitalComment on above:Performed By: #### [id number] #### [facility] [address] [place] [address]Wnuoxwswa [Mass/Vol]0.5 mg/dLNormal0.0-1.1FGood Samaritan HospitalComment on above:Performed By: #### [id number] #### [facility] [address] [place] [address]Csibwtirp.direct [Mass/Vol]0.1 mg/dLNormal0.0-0.4FGood Samaritan HospitalComment on above:Performed By: #### [id number] #### [facility] [address] [place] [address]Vzcbrswcw.indirect [Mass or moles/Vol]0.4 mg/dLNormal0.1-0.9 [facility] HospitalComment on above:Performed By: #### [id number] #### [facility] [address] [place] [address] 383[address]Gxdotebl (S) [Mass/Vol]3.0 g/dLNormal1.4-4.0[facility] HospitalComment on above:Performed By: #### [id number] #### Herb [facility] [address], [place] [address]Uyrgozq [Mass/Vol]7.0 g/dLNormal6.0-7.8[facility] HospitalComment on above:Performed By: #### [id number] #### Herb [facility] [address], [place] [address]Uavcuy Levelon 25-77-8071Tfsvvz [Catalytic activity/Vol]11 U/L Ohj34-90AzvhmoMagruder HospitalComment on above:Performed By: #### [id number] #### Herb [facility] [address], [place] [address]QJ & PTTon 86-61-7020yAWK Coag (PPP) [Time]28.5 second(s)Normal 25.1-36.5FGood Samaritan HospitalComment on above:Result Comment: Parameter 15 days - 4 weeks 1 - [...] the same coagulation reagent and instrumentation as [facility]. Currently there are no coagulation studies available worldwide for children to 14 days, andno normal ranges. Heparin therapeutic range (represented by Anti-Factor Xa activity of 0.2 - 0.4 U/mL) corresponds to PTT of 56.6 - 109.0 sec.Performed By: #### [id number] #### Estevez [facility] [address], [place] [address]LJH Coag (PPP) [Relative time]1.07 {INR}Invalid Interpretation CodeMagruder HospitalComment on above:Result Comment: INR results are specifically intended to assess patients stabilized on long-term Anticoagulation therapy suggested INR?s ?Less Intensive Anticoagulation? 2.0 ? 3.0 Conventional Range 3.0 ? 4.5Performed By: #### [id number] #### Herb [facility] [address], [place] [address]SP Coag (PPP) [Time]12.0 second(s)Normal9.4-12.5Fisher [facility]itan HospitalComment on above:Result Comment: 15 days - 4 weeks 1 - [...] the same coagulation reagent and instrumentation as [facility]. Currently there are no coagulation studies available worldwide for children to 14 days, andno normal ranges.Performed By: #### [id number] #### Herb [facility] [address], [place] [address]ZCAPRIPZUrlooef By: Tamica Chowdhury on 15-84-1582Jroo HCG ( test) QlNegative (08/27/23 7:55 PM)NormalWEATHERFORD [facility] Man SeroTroponin 0 Hr.on 10-78-1737Zmmdzxiy HS2.90 pg/mLLow10.10-27.10Fisher [facility] HospitalComment on above:Result Comment: The 95% CI (Confidence Interval) PPV (Positive Predictive Value) for myocardial infarction in females is 38 pg/mL, in males 51 pg/mL. The results should be used in conjunction with clinical conditions of myocardial infarction. (Access High Sensitivity Troponin I Instructions For Use, Sharon Catherine, September 2017)Performed By: #### [id number] #### Herb [facility] [address], [place] [address]BA with Cult Rflxon 69-32-3506Pbmxeoklm Ql (U)NegativeNormal NegativeMagruder HospitalComment on above:Performed By: #### [id number] #### [facility] [address], [place] [address]Lpbbppi (U)TurbidAbnormalClearFGood Samaritan Hospital Comment on above:Performed By: #### [id number] #### [facility] [address], [place] [address]Cbarv (U)Light-YellowNormalYellowMagr[facility] Hospital Comment on above:Result Comment: Microscopic readings are only performed on those samples that meet specific criteria set forth by [facility].Performed By: #### [id number] #### [facility] [address] [place] [address] 209[address]Rimxgyvjiy cells.squamous Auto (Urine sed) [#/Area]9-10Invalid Interpretation CodeMagruder HospitalComment on above:Performed By: #### [id number] #### [facility] [address], [place] [address]Ljxwdnn Ql (U)NegativeNormalNegativeMag[facility] Comment on above:Performed By: #### [id number] #### [facility] [address] [place] [address] 05[address]Xbrbmaxgws Auto test strip (U) [Mass/Vol]1+ mg/dLAbnormal NegativeMagruder HospitalComment on above:Performed By: #### [id number] #### [facility] [address], [place] [address]Faxszxq Auto test strip Ql (U)NegativeNormalNegativeMagruder HospitalComment on above:Performed By: #### [id number] #### [facility] [address] [place] [address]25[address]Tormlcelb esterase Auto test strip Ql (U)NegativeNormalNegative [facility] HospitalComment on above:Performed By: #### [id number] #### [facility] [address] [place] [address]34[address]Ilalw Auto Ql (U)TraceNormalNegativeMag[facility] Comment on above:Performed By: #### [id number] #### [facility] [address] [place] [address] 52[address]Ivboymz Auto test strip Ql (U)NegativeNormalNegativeMagruder HospitalComment on above:Performed By: #### [id number] #### [facility] [address] [place] [address] 10831xM (U)5.5 [pH]Invalid Interpretation Code5.0-9.0[facility] HospitalComment on above:Performed By: #### [id number] #### [facility] [address] [place] [address] 23438Qmwxklv Ql (U)NegativeNormalNegKettering Health [facility] Memorial Comment on above:Performed By: #### [id number] #### [facility] [address] [place] [address] 85[address]XLB Ql (U)6-1Lybcxo5-8GzokhrGood Samaritan HospitalComment on above:Performed By: #### [id number] #### [facility] [address] [place] [address] 44524Zkycetdi gravity (U) [Rel density]1.018Invalid Interpretation Code1.005-1.030[facility] HospitalComment on above:Performed By: #### [id number] #### [facility] [address] [place] [address] 44341Ujggbgludwdo (U) [Mass/Vol]NegativeNormalNegativeMagruder HospitalComment on above:Performed By: #### [id number] #### [facility] [address] [place] [address] 05[address]ARH Auto (Urine sed) [#/Area]0-5Mljcly8-9XulxmtGood Samaritan HospitalComment on above:Performed By: #### [id number] #### [facility] [address] [place] [address]Kmuk of Urine collection methodClean CatchNormalFishWestern Maryland Hospital CenterComment on above:Performed By: #### [id number] #### [facility] [address] [place], [place] [address]SWWSYBTXDPWrptotq By: SYSTEM SYSTEM on 23-50-6096Gmpcqmqds Ql (U)NegativeNormalNegativemg/dLFT UA Auto SSClarity (U)Turbid *ABN* (08/27/23 8:52 PM)Invalid Interpretation CodeClearFST. MARY[facility] UA Auto SSColor (U)Light- Yellow 1 (08/27/23 8:52 PM)NormalYellowWEATHERFORD [facility]IONAL [facility] UA Auto SSComment on above:Interpretive Data: Microscopic readings are only performed on those samples that meet specific criteria set forth by [facility].Epithelial cells.squamous Auto (Urine sed) [#/Area]9-10 graded/HPFInvalid Interpretation CodeFT UA Auto SSGlucose Ql (U)NegativeNormalNegativemg/dLWEATHERFORD [facility]IONAL [facility] UA Auto SS Hemoglobin Auto test strip (U) [Mass/Vol]1+ mg/dLInvalid Interpretation Code Negativemg/dLFT UA Auto SSKetones Auto test strip Ql (U)NegativeNormal Negativemg/dLFT UA Auto SSLeukocyte esterase Auto test strip Ql (U)Negative NormalNegativeLeu/uLFT UA Auto SSMucus Auto Ql (U)Trace graded/LPFNormal Negativegraded/LPFFTMC UA Auto SSNitrite Auto test strip Ql (U)NegativeNormal Negativemg/dLFT UA Auto SSpH (U)5.5 *NA* (08/27/23 8:52 PM)Invalid Interpretation Code5.0 - 9.0FT UA Auto SSProtein Ql (U)NegativeNormalNegativemg/dLFT UA Auto SSRBC Ql (U)0-3 graded/HPFNormal 0-3graded/HPFFT UA Auto SSSpecific gravity (U) [Rel density]1.018 *NA* (08/27/23 8:52 PM)Invalid Interpretation Code1.005 - 1.030FT UA Auto SS Urobilinogen (U) [Mass/Vol]NegativeNormalNegativemg/dLFTMC UA Auto SSWBC Auto (Urine sed) [#/Area]0-5 graded/HPFNormal0-5graded/HPFWEATHERF[facility] UA Auto SSURINALYSIS Ordered By: Peter Lopez on 32-67-1188QK Spec DescClean Catch (08/27/23 8:52 PM)NormalWEATHERFORD [facility]IONAL [facility] UA Auto SS eGFRon 44-42-1298cBRS583 mL/min/1.73 v6Iogpze>=59[facility] HospitalComment on above:Order Comment: Order added by Discern Expert.Performed By: #### [id number] #### [facility] [address] [place], [place] [address]ED Clinical Summaryon [id number] Clinical SummaryED Clinical Summary [address] [address] ED Clinical Summary Person Information Name: TRACIE SAMUELS Floresita/[facility] Age: 33 Years : 1990 Sex: Female Language: Bangladeshi PCP: KATLIN FERNANDEZ DO Marital Status: Single [...] 08/26/2023 11:11:08 08/26/2023 11:11:08 08/26/2023 11:11:08 ADDRESS: [address] [place] [address] [address] [facility] [id number] [facility] DOC NOTES: MEDICAL INFORMATION: Prescriptions Given: [...] 3 Milliliter Nebulized inhalation (aerosol) every 6 hoursas needed Shortness of breath or wheezing. albuterol [...] Follow up: With: Address: When: KATLIN FERNANDEZ [address] [place], [place] [id number] [employer] (more content not included)...[facility] CenterED Note-Physicianon 79-63-1671OV Note-PhysicianED Note-Physician Basic Information Time Seen: Jax Lassiter [...] vomiting. Does have photophobia. She been taking zpxy-mru-hpagorb Aleve without relief. No precipitating trauma. She [...] altered mentation. Discharged home with PCP follow-up. Patientwas encouraged to return to the ED if [...] IntraMuscular, Once, Stop date 08/26/23 9:29:00 EDT, STAT,Start date 08/26/23 9:29:00 EDT, 08/26/23 9:29:00 EDT [...] FERNANDEZ In 3 days 08/29/2023 EDT [address] [id number] [facility] (1) Additional Instructions: Patient Education Chronic Migraine [...] made to ensure accuracy, however, inadvertently computerized veterinarian mistakes may be present. Appropriate healthcare PPE was used in evaluating this patient. Problem List/Past Medical History Ongoing Abdominal pain Bipolar Chronic gastritis Diabetes mellitus Extreme obesity 28-AUG-2013 12:48:08<$> Loose stools Lower abdominal pain Smoker Vomiting Historical ADHD (attention deficit hyperactivity disorder) Antral ulcer Asthma Kidney stone Seizure Procedure/Surgical History section, Cholecystectomy, EGD (esophagogastroduodenoscopy) gastric outlet reduction, Tuballigation. Medications Inpatient No active inpatient medications Home [...] Daily metformin 500 mg (more content not included)...[facility] Comment on above:Result Comment: Electronically Signed By: Jax Lassiter PA-C\.br\Date and Time Signed: 08/25/2410:35 EDT\.br\Electronically Co-Signed By: Jass Meek DO.br\Date and Time Co-Signed: 08/25/2414:01 EDTED Patient Summaryon [id number] Patient SummaryED Patient Summary [address] [address] Patient Discharge Instructions Person Information Name: TRACIE SAMUELS Age: 33 Years Arrival Date: 08/26/2023 09:11:14 Discharge Diagnosis: Migraine headache Primary Care Physician: KATLIN FERNANDEZ DO Provider Information Primary Provider: Jass Meek DO Advanced Sanding Line Operator:Jax Lassiter PA-C The exam and treatment you received in the Emergency Department were for an urgent problem and are not intended as complete care. It is important that you follow up with a doctor, nurse practitioner,or physician?s religious assistant for ongoing care. If your symptoms [...] Follow-up Instructions: With: Address: When: KATLIN FERNANDEZ [address] [place], [place] [phone] [facility] (1) In 3 days 08/29/2023 In the event that this physician does not participate in your insurance network, please consult with your insurance company to find a nearby participating provider. Patient Education Materials: Chronic Migraine Headache A MESSAGE TO ALL PATIENTS REGARDING OPIOIDS PRESCRIPTION OPIOIDS: WHAT YOU NEED TO KNOW Prescription opioids can be used to help relieve txcukotq-cm-tjauug pain and are often prescribed following a [...] and have fewer risks and side effects. Optionsmay include: ? Pain relievers such as acetaminophen, [...] unused prescription opioids: Find your community drug take- back program or yourpharmacy mail-back program, or flush them down the toilet, following guidance from the Food and Drug Administration (www.fda.gov/Drugs/ResourcesForYou). ? Visit www.cdc.gov/drugoverdose to learn about the risks of opioids abuse and overdose. ? If you believe you may be struggling with addiction, tell your health respiratory care assistant and ask for guidance or call [employer]?S National Helpline at 9-315-292-AZXI. (more content not included)...[facility] HealthAlanine aminotransferase [Enzymatic activity/volume] in Serum or PlasmaOrdered By: Kanu Brush on 45-88-4870EDN [Catalytic activity/Vol]18 U/LNormal7-52[facility] SystemComment on above:Performed By: #### JEFF NIEVES, ADDONUAPLUS #### [place] [address] USAAlbumin [Mass/volume] in Serum or Plasma by Bromocresol green (BCG) dye binding methoOrdered By: Kanu Brush on 13-10-4301Kfrntem BCG dye [Mass/Vol]3.9 g/dL3.5-5.7FAvita Health System Galion HospitalAlkaline phosphatase [Enzymatic activity/volume] in Serum or PlasmaOrdered By: Kanu Brush on 82-14-9361AJG [Catalytic activity/Vol]109 U/UWtrd38-433XupszfwrvMemorial Health SystemComment on above:Performed By: #### JEFF NIEVES, JARETTONUAPLUS #### [place] [address] USAAspartate aminotransferase [Enzymatic activity/volume] in Serum or PlasmaOrdered By: Kanu Brush on 39-27-6535KWK [Catalytic activity/Vol] 16 U/YRbmmjb34-07NfalncrwpMemorial Health SystemComment on above:Performed By: #### JEFF NIEVES, ADDONUAPLUS #### [place] [address] USAAutomated basophil %Ordered By: Kanu Brush on 07-21-2023 Basophils/100 WBC (Bld)0.7 %Normal.[facility] Health SystemComment on above:Performed By: #### JEFF NIEVES, ADDONUAPLUS #### [place] [address] USAAutomated basophil countOrdered By: Kanu Brush on 72-56-5858Nfmmaturr (Bld) [#/Vol]0.1 10*3/uLNormal0.0-0.2FAvita Health System Galion HospitalComment on above:Result Comment: PERFORMED BY: [place] [address] PATHOLOGIST PHYSICIAN SPECIALIST JL PERKINS M.D.Performed By: #### CUU, UHCG, ADDONUAPLUS #### [place] [address] USAAutomated blood monocyte countOrdered By: Kanu Brush on 83-91-4206Hpfzumlsc (Bld) [#/Vol]0.6 10*3/uLNormal0.0-0.8[facility] Health SystemComment on above:Performed By: #### CUU, UHCG, ADDONUAPLUS #### [place] [address] USAAutomated eosinophil %Ordered By: Kanu Brush on 07-21-2023 Eosinophils/100 WBC (Bld)2.4 %Normal.[facility] Health SystemComment on above:Performed By: #### CUU, UHCG, ADDONUAPLUS #### [place] [address] USAAutomated eosinophil countOrdered By: Kanu Brush on 69-39-9068Vhxkvbnqdyo (Bld) [#/Vol]0.2 10*3/uLNormal0.0-0.45[facility] Health SystemComment on above:Performed By: #### CUU, UHCG, ADDONUAPLUS #### [place] [address] USAAutomated epithelial cells count in urine sediment (number/area)Ordered By: Kanu Brush on 33-52-1970Pzbxfbbjxf cells Auto (Urine sed) [#/Area]1-2 [HPF]0-2FAvita Health System Galion HospitalAutomated monocyte % Ordered By: Kanu Brush on 50-91-5014Jgxjnnlyi/100 WBC (Bld)5.7 %Normal.[facility] SystemComment on above:Performed By: #### CUU, UHCG, ADDONUAPLUS #### [place] [address] USAAutomated neutrophil %Ordered By: Kanu Brush on 07-21-2023 Neutrophils/100 WBC (Bld)55.4 %Normal.[facility] SystemComment on above:Performed By: #### CUU, UHCG, ADDONUAPLUS #### [facility] [address] [place] [address] USABacteria [Presence] in Urine by AutomatedOrdered By: Kanu Brush on 29-27-5247Wxvmsqpj Auto Ql (U)None seen [HPF]None SeenMemorial Health SystemBasic Metabolic Panelon 59-60-0144Fllshnnqcg Clr Calc Gxzyygtv85.28NormMedical Center Clinic Physician GroupComment on above:Performed By: #### CUU, UHCG, ADDONUAPLUS #### [facility] [address] [place] [address] USAGFR/1.73 sq M.predicted MDRD (S/P/Bld) [Vol rate/Area] mL/min/{1.73_m2}NormalThe [facility] Physician [facility] CenterComment on above:Performed By: #### CUAnastasia, LAKHWINDERCG, ADDONUAPLUS #### [place] [address] USABilirubin Test strip Ql (U)Ordered By: Kanu Brush on 03-40-4099Qaxmjpyst Ql (U)NegativeNegativeMemorial Health System Bilirubin.direct [Mass/volume] in Serum or PlasmaOrdered By: Kanu Brush on 34-70-9338Qduatwlvu.direct [Mass/Vol]0.10 mg/dL0.03-0.18FAvita Health System Galion HospitalBilirubin.total [Mass/volume] in Serum or PlasmaOrdered By: Kanu Brush on 28-51-7017Qowlfvqhg [Mass/Vol]0.3 mg/dLNormal0.3-1.0[facility] Health SystemComment on above:Performed By: #### CUU, UHCG, ADDONUAPLUS #### [facility] [address] [place] [address] USACalcium [Mass/volume] in Serum or PlasmaOrdered By: Kanu Brush on 17-52-9680Uzrjqrg [Mass/Vol]8.8 mg/dLNormal8.6-10.3FAvita Health System Galion HospitalComment on above:Performed By: #### CUU, UHCG, ADDONUAPLUS #### [facility] [address] [place] [address] USACarbon dioxide, total [Moles/volume] in Serum or Plasma Ordered By: Kanu Brush on 41-90-2498FK2 [Moles/Vol]25.4 mmol/LRbctod11.0-31.0 [facility] SystemComment on above:Performed By: #### CUU, UHCG, ADDONUAPLUS #### [facility] [address] [place] [address] USAChloride [Moles/volume] in Serum or PlasmaOrdered By: Kanu Brush on 17-98-7621Qmwghocr [Moles/Vol]107 mmol/TQxasnk00-121AcmhzfuhvMemorial Health SystemComment on above:Performed By: #### CUU, UHCG, ADDONUAPLUS #### [place] [address] USAColor of Urine by AutoOrdered By: Kanu Brush on 07-21-2023 Color (U)YellowNormalYellowMemorial Health SystemComment on above: Order Comment: Name Collection Type:: Clean-Voided MidstreamPerformed By: #### CUU, UHCG, ADDONUAPLUS #### [place] [address] USAComplete Blood Count Auto Diffon 89-34-7596Opyx Corpuscular HGB Conc33.8 g/bRYwgxjm57.0-35.0The [facility] Physician GroupComment on above:Performed By: #### CUU, UHCG, ADDONUAPLUS #### [place] [id number] USAMonocytes/100 WBC (Bld)19.26 %Normal0.00-20.00The [facility] Physician GroupComment on above:Performed By: #### CUU, UHCG, ADDONUAPLUS #### [facility] [address] [place] [address] USANRBC%0.1 /100{WBC}Normal0-0.5The [facility] Physician Group Comment on above:Performed By: #### CUU, UHCG, ADDONUAPLUS #### [facility] [address] [place] [address] USACreatinine [Mass/volume] in Serum or PlasmaOrdered By: Kanu Brush on 24-02-0937Tgcvzelokc [Mass/Vol]0.89 mg/dLNormal0.60-1.20[facility] Health SystemComment on above:Performed By: #### CUU, UHCG, ADDONUAPLUS #### [facility] [address] [place] [address] USADipstick and Microscopicon 41-89-3542Tyrqdvquko (U)Clear NormalClearThe [facility] Physician GroupComment on above:Order Comment: Name Collection Type:: Clean-Voided MidstreamPerformed By: #### CUU, UHCG, ADDONUAPLUS #### [facility] [address] [place] [address] USABacteria,UrineNone SeenNormalNone SeenThe [facility] Physician GroupComment on above:Order Comment: Name Collection Type:: Clean- Voided MidstreamPerformed By: #### CUU, UHCG, ADDONUAPLUS #### [facility] [address] [place] [address] USABilirubin,UrineNegativeNormalNegativeThe [facility] Physician GroupComment on above:Order Comment: Name Collection Type:: Clean- Voided MidstreamPerformed By: #### CUU, UHCG, ADDONUAPLUS #### [facility] [address] [place] [address] USAGlucose Ql (U)NormalNormalNormalThe [facility] Physician GroupComment on above:Order Comment: Name Collection Type:: Clean-Voided MidstreamPerformed By: #### CUU, UHCG, ADDONUAPLUS #### [facility] [address] [place] [address] USAHyaline Casts,Knpjr6-1Ekirvl4-5Jfk [facility] Physician GroupComment on above:Order Comment: Name Collection Type:: Clean-Voided MidstreamPerformed By: #### CUU, UHCG, ADDONUAPLUS #### [place] [address] USAKetones Ql (U)NegativeNormalNegativeThe [facility] Physician GroupComment on above:Order Comment: Name Collection Type:: Clean- Voided MidstreamPerformed By: #### CUU, UHCG, ADDONUAPLUS #### [place] [address] USALeukocyte esterase Test strip Ql (U)2+HighNegativeThe [facility] Hospital Physician GroupComment on above:Order Comment: Name Collection Type:: Clean-Voided MidstreamPerformed By: #### CUU, UHCG, ADDONUAPLUS #### [place] [address] USANitrite,UrineNegativeNormalNegativeThe [facility] Physician GroupComment on above:Order Comment: Name Collection Type:: Clean-Voided MidstreamPerformed By: #### CUU, UHCG, ADDONUAPLUS #### [place] [address] USAOccult Blood,UrineTraceHighNegativeThe [facility] Physician GroupComment on above:Order Comment: Name Collection Type:: Clean-Voided MidstreamPerformed By: #### CUU, UHCG, ADDONUAPLUS #### [place] [address] USAProtein,UrineNegativeNormalNegativeThe [facility] Physician GroupComment on above:Order Comment: Name Collection Type:: Clean-Voided MidstreamPerformed By: #### CUU, UHCG, ADDONUAPLUS #### [place] [address] USARBC,Apgzx1-1Wuvs4-2Gmh [facility] Physician GroupComment on above:Order Comment: Name Collection Type:: Clean-Voided MidstreamPerformed By: #### CUU, UHCG, ADDONUAPLUS #### [place] [address] USASpecificy [place],Urine1.077Umpakw0.001-1.030[facility] Physician GroupComment on above:Order Comment: Name Collection Type:: Clean- Voided MidstreamPerformed By: #### CUU, UHCG, ADDONUAPLUS #### [facility] [address] [place] [address] USASquamous Epithelial Cell,Hapbh2-8Dcvtvs9-3Vzf [facility] Physician GroupComment on above:Order Comment: Name Collection Type:: Clean- Voided MidstreamPerformed By: #### CUU, UHCG, ADDONUAPLUS #### [facility] [address] [place] [address] USAUrobilinogen,UrineNormalNormalNormalThe [facility] Physician GroupComment on above:Order Comment: Name Collection Type:: Clean- Voided MidstreamPerformed By: #### CUU, UHCG, ADDONUAPLUS #### [facility] [address] [place] [address] USAWBC,Biztv9-1Wbwror9-8Tdm [facility] Physician GroupComment on above:Order Comment: Name Collection Type:: Clean-Voided MidstreamPerformed By: #### CUU, UHCG, ADDONUAPLUS #### [facility] [address] [place] [address] USAErythrocyte distribution width [Ratio] by Automated count Ordered By: Kanu Brush on 36-51-0523Xtvinxitpnz distribution width (RBC) [Ratio] 13.3 %Zwalyr27.9-15.3FAvita Health System Galion HospitalComment on above:Performed By: #### CUU, UHCG, ADDONUAPLUS #### [facility] [address] [place] [address] USAErythrocytes [#/area] in Urine sediment by Automated count Ordered By: Kanu Brush on 40-79-1093WIG Auto (Urine sed) [#/Area]5-9 [HPF]High 0-4FAvita Health System Galion HospitalErythrocytes [#/volume] in Blood by Automated countOrdered By: Kanu Brush on 63-89-5643FOS (Bld) [#/Vol]3.99 10*6/uL Normal3.60-5.00Memorial Health SystemComment on above:Performed By: #### CUU, UHCG, ADDONUAPLUS #### [facility] [address] [place] [id number] USAGlucose [Mass/volume] in Serum or PlasmaOrdered By: Kanu Brush on 28-46-2090Nvonnqy [Mass/Vol]98 mg/aVPeoqwx16-250ShoianecbMemorial Health SystemComment on above:ADA recommended reference rangeRandom Glucose Reference Range is dependent on time and content of last meal. Glucose of more than 200 mg/dL in a nonstressed, ambulatory subject supports the diagnosisof Diabetes Mellitus.Result Comment: Random Glucose Reference Range is dependent on time and content of last meal. Glucose of more than 200 mg/dL in a nonstressed, ambulatory subject supports the diagnosis of Diabetes Mellitus. ADA recommended reference rangePerformed By: #### CUU, UHCG, ADDONUAPLUS #### [place] [id number] USAHCG ( test) IA.rapid Ql (U)Ordered By: Kanu Brush on 93-92-9146BHS ( test) Ql (U)NegativeMemorial Health SystemHCG,Urineon 82-92-6701Mjzl HCG ( test) Ql (U)NegativeTGH Brooksville Physician GroupComment on above:Order Comment: Name Collection Type:: Clean-Voided MidstreamResult Comment: PERFORMED BY: [place] [address] PATHOLOGIST PHYSICIAN SPECIALIST JL PERKINS M.D.Performed By: #### CUU, UHCG, ADDONUAPLUS #### [facility] [address] [place] [address] USAHematocrit [Volume Fraction] of Blood by Automated count Ordered By: Kanu Brush on 09-42-1055Pdonesvmgh (Bld) [Volume fraction]35.5 % Dxdnaa51.0-46.4FAvita Health System Galion HospitalComment on above:Performed By: #### CUU, UHCG, ADDONUAPLUS #### [place] [id number] USAHemoglobin [Mass/volume] in BloodOrdered By: Kanu Brush on 96-73-2056Tmamqijllq (Bld) [Mass/Vol]12.0 g/qLNixyaa56.8-15.4FAvita Health System Galion HospitalComment on above:Performed By: #### CUU, UHCG, ADDONUAPLUS #### [facility] [address] [place] [address] USAHepatic Panelon 94-78-8721Uvgxosl [Mass/Vol]3.9 g/dLNormal 3.5-5.7The [facility] Physician GroupComment on above:Performed By: #### CUU, UHCG, ADDONUAPLUS #### [facility] [address] [place] [address] USABilirubin,Indirect0.2 mg/dLNormalThe [facility] Physician GroupComment on above:Performed By: #### CUU, UHCG, ADDONUAPLUS #### [facility] [address] [place] [address] USABilirubin.indirect [Mass/Vol]0.10 mg/dLNormal0.03-0.18The [facility] Physician GroupComment on above:Performed By: #### CUU, UHCG, ADDONUAPLUS #### [place] [address] USAKetones Auto test strip (U) [Mass/Vol]Ordered By: Kanu Brush on 66-69-9055Dljfdfb (U) [Mass/Vol]NegativeNegativeMemorial Health SystemLaboratory - UrinalysisOrdered By: Kanu Brush on 65-63-5167Tddqyvi casts LM Ql (Urine sed)0-8 [LPF]0-8Memorial Health SystemLeukocytes [#/area] in Urine sediment by Automated countOrdered By: Kanu Brush on 26-06-0544UMP Auto (Urine sed) [#/Area]3-4 [HPF]0-4FAvita Health System Galion HospitalLeukocytes [#/volume] corrected for nucleated erythrocytes in Blood by Automated counOrdered By: Kanu Brush on 64-22-6241SAA corrected for nucl RBC Auto (Bld) [#/Vol]10.2 10*3/uL3.8-11.6FAvita Health System Galion Hospital Leukocytes [#/volume] in Blood by Automated countOrdered By: Kanu Brush on 93-22-9663LAP (Bld) [#/Vol]10.2 10*3/uLNormal3.8-11.6FAvita Health System Galion HospitalComment on above:Performed By: #### JEFF NIEVES, ADDONUAPLUS #### [facility] [address] [place] [address] USALipase [Enzymatic activity/volume] in Serum or Plasma Ordered By: Kanu Brush on 50-74-2479Drdnlg [Catalytic activity/Vol]20.0 U/L Mmoeba67.0-82.0Memorial Health SystemComment on above:Result Comment: PERFORMED BY: [place] [address] PATHOLOGIST PHYSICIAN SPECIALIST JL PERKINS M.D.Performed By: #### JEFF NIEVES, ADDONUAPLUS #### [place] [address] USALymphocytes [#/volume] in Blood by Automated countOrdered By: Kanu Brush on 27-81-1464Unhpqjiftsr (Bld) [#/Vol]3.6 10*3/uLNormal1.00-4.8 [facility] Health SystemComment on above:Performed By: #### JEFF NIEVES, ADDONUAPLUS #### [facility] [address] [place] [address] USALymphocytes/100 leukocytes in Blood by Automated count Ordered By: Kanu Brush on 52-71-9648Cpqvqasrnwa/100 WBC (Bld)35.8 %Normal. Memorial Health SystemComment on above:Performed By: #### EZEQUIEL, LAKHWINDERCG, ADDONUAPLUS #### [facility] [address] [place], [place] [phone] USAMCH [Entitic mass] by Automated countOrdered By: Kanu Brush on 24-03-6304XEF (RBC) [Entitic mass]30.0 hpAdbtot28.7-34.3FAvita Health System Galion HospitalComment on above:Performed By: #### EZEQUIEL, JEFF, ADDONUAPLUS #### [facility] [address] [place] [address] USAHC Auto (RBC) [Mass/Vol]Ordered By: Kanu Brush on 62-59-8334JESS (RBC) [Mass/Vol]33.8 g/dL32.0-35.0Memorial Health SystemMCV [Entitic volume] by Automated countOrdered By: Kanu Brush on 27-40-0371FXP (RBC) [Entitic vol]88.9 aTGojmsg08-785YkpbqthplMemorial Health SystemComment on above:Performed By: #### JEFF NIEVES, JARETTONUAPLUS #### [facility] [address] [place] [address] USAMonocyte distribution width [Entitic volume] in Blood by AutomatedOrdered By: Kanu Brush on 53-29-3017Oqetgjmh distribution width Auto (Bld) [Entitic vol]19.26 %0.00-20.00Memorial Health SystemNeutrophils [#/volume] in Blood by Automated countOrdered By: Kanu Brush on 07-21-2023 Neutrophils (Bld) [#/Vol]5.6 10*3/uLNormal1.8-7.7FAvita Health System Galion HospitalComment on above:Performed By: #### JEFF NIEVES, ADDONUAPLUS #### [facility] [address] [place] [address] USANitrite Test strip Ql (U)Ordered By: Kanu Brush on 11-38-6166Egaedji Ql (U)NegativeNegativeMemorial Health SystemNo Panel InformationOrdered By: Kanu Brush on 39-35-6957Zuqsbdjen GFR (CKD-EPI)> 60.0 mL/MinMemorial Health SystemPharmacy Creatinine Clearance (Chem 89.28Memorial Health SystemNucleated erythrocytes [Presence] in Blood by Automated countOrdered By: Kanu Brush on 61-81-9601Fanwubjqa RBC Auto Ql (Bld)0.1 /100{WBC}0-0.5FAvita Health System Galion HospitalPlatelet mean volume [Entitic volume] in Blood by Automated countOrdered By: Kanu Brush on 07-21-2023 Platelet mean volume (Bld) [Entitic vol]7.3 fLNormal6.3-10.7FAvita Health System Galion HospitalComment on above:Performed By: #### CUU, UHCG, ADDONUAPLUS #### [facility] [address] [place] [address] USAPlatelets [#/volume] in Blood by Automated countOrdered By: Kanu Brush on 75-57-5885Qtrcdhtjy (Bld) [#/Vol]262 10*3/nYDhliwz067-693 [facility] SystemComment on above:Performed By: #### CUU, LAKHWINDERCG, ADDONUAPLUS #### [place] [address] USAPotassium [Moles/volume] in Serum or PlasmaOrdered By: Kanu Brush on 79-44-6592Jozlcnurv [Moles/Vol]3.8 mmol/LNormal3.5-5.1FAvita Health System Galion HospitalComment on above:Performed By: #### CUU, LAKHWINDERCG, ADDONUAPLUS #### [facility] [address] [place] [address] USAProtein Auto test strip (U) [Mass/Vol]Ordered By: Kanu Brush on 04-46-4168Yfrnjfh (U) [Mass/Vol]NegativeNegativeMemorial Health SystemProtein [Mass/volume] in Serum or PlasmaOrdered By: Kanu Brush on 33-41-5008Juvymyx [Mass/Vol]7.3 g/dLNormal6.4-8.9Mem[facility] Health SystemComment on above:Performed By: #### CUU, UHCG, ADDONUAPLUS #### [facility] [address] [place] [address] USASerum globulin measurement by calculation (mass/volume) Ordered By: Kanu Brush on 34-73-4730Tgyccdit (S) [Mass/Vol]3.4 g/dLNormal [facility] Health SystemComment on above:Performed By: #### CUU, UHCG, ADDONUAPLUS #### [facility] [address] [place] [address] USASerum or plasma albumin/globulin mass ratioOrdered By: Kanu Brush on 57-73-5033Yvmbjjy/Globulin [Mass ratio]1.1 {ratio}NormalMemorial Health SystemComment on above:Performed By: #### CUU, UHCG, ADDONUAPLUS #### [facility] [address] [place] [address] USASerum or plasma anion gap determinationOrdered By: Kanu Brush on 33-91-4170Pctli gap [Moles/Vol]9.4 mmol/LNormal6.0-15.0Mem[facility] Health SystemComment on above:Performed By: #### CUU, UHCG, ADDONUAPLUS #### [place] [address] USASerum or plasma non-glucuronidated bilirubin measurement (mass/volume)Ordered By: Kanu Brush on 53-12-5700Ifmqrwbad.indirect [Mass/Vol] 0.2 mg/dLKettering Health Prebleodium [Moles/volume] in Serum or PlasmaOrdered By: Kanu Brush on 82-97-6048Sjdiny [Moles/Vol]138 mmol/LNormal 136-145Memorial Health SystemComment on above:Performed By: #### CUU, UHCG, ADDONUAPLUS #### [place] [address] USASpecific gravity Auto test strip (U) [Rel density]Ordered By: Kanu Brush on 28-63-1672Sxepdmch gravity (U) [Rel density]1.0151.001-1.030 [facility] Health SystemUrea nitrogen [Mass/volume] in Serum or Plasma Ordered By: Kanu Brush on 76-42-9990Ucbj nitrogen [Mass/Vol]11 mg/dLNormal09-19 [facility] SystemComment on above:Performed By: #### CUU, UHCG, ADDONUAPLUS #### [place] [address] USAUrine clarity by refractometry automatedOrdered By: Kanu Brush on 38-27-6142Aqjqqjt Refractometry automated (U)ClearCleOhioHealth Dublin Methodist HospitalUrine glucose measurement by automated test strip (mass/volume)Ordered By: Kanu Brush on 20-15-6944Wlpqnmj Auto test strip (U) [Mass/Vol]Normal mg/dLTriHealth McCullough-Hyde Memorial HospitalUrine hemoglobin detection by automated test stripOrdered By: Kanu Brush on 75-97-7207Vtmkifbxnt Auto test strip Ql (U)TraceHighNegSelect Medical Specialty Hospital - YoungstownUrine leukocyte esterase detection by automated test stripOrdered By: Kanu Brush on 27-15-2695Ekyuqputh esterase Auto test strip Ql (U)2+HighNegSelect Medical Specialty Hospital - YoungstownUrine pH measurement by automated test stripOrdered By: Kanu Brush on 81-12-8593iP (U)6.5 [pH]Normal5.0-9.0Mem[facility] Health SystemComment on above:Order Comment: Name Collection Type:: Clean-Voided MidstreamPerformed By: #### CUU, UHCG, ADDONUAPLUS #### [place] [address] USAUrobilinogen Auto test strip (U) [Mass/Vol]Ordered By: Kanu Brush on 55-04-5827Jrcsfxrepotd (U) [Mass/Vol]Normal mg/dLTriHealth McCullough-Hyde Memorial HospitalXR acute abdomen serieson 77-56-2893ME acute abdomen seriesFORT [place] [address] XRay Report Signed Patient: Tracie Samuels MR#: [id number] 640 : 1990 Acct:[id number] Age/Sex: 33 / F ADM Date: 07/21/23 Loc: ER Room: Type: [facility] ER Attending Dr: Copies to: Kanu [...] Taylor Wiley M.D.07/21/2023 5:13 PM Dictation Location: [place] [address] Transcribed By: [facility] 07/21/231712 Dictated By: Taylor Wiley MD 07/21/231710 Signed By: 07/21/231712TGH [facility] Physician GroupAlanine aminotransferase [Enzymatic activity/volume] in Serum or PlasmaOrdered By: Roya German on 46-72-5497PDF [Catalytic activity/Vol]17 U/LNormal7-52Memorial Health SystemComment on above:Performed By: #### JEFF NIEVES, ADDONUAPLUS #### [facility] [address] [place] [address] USAAlbumin [Mass/volume] in Serum or Plasma by Bromocresol green (BCG) dye binding methoOrdered By: Roya German on 99-68-7388Tiwgswd BCG dye [Mass/Vol]3.9 g/dL3.5-5.7FAvita Health System Galion HospitalAlkaline phosphatase [Enzymatic activity/volume] in Serum or PlasmaOrdered By: Roya German on 15-72-9525MYR [Catalytic activity/Vol]98 U/DPghktb19-033XjxigvzjjMemorial Health SystemComment on above:Performed By: #### JEFF NIEVES, ADDONUAPLUS #### [facility] [address] [place] [id number] USAAspartate aminotransferase [Enzymatic activity/volume] in Serum or PlasmaOrdered By: Roya German on 15-99-5148FMG [Catalytic activity/Vol]13 U/OKgeohg53-29UbhqxhxnkMemorial Health SystemComment on above: Performed By: #### JEFF NIEVES, ADDONUAPLUS #### [facility] [address] [place] [address] USAAutomated basophil %Ordered By: Roya German on 18-98-2151Fpblqisgd/100 WBC (Bld)0.6 %Normal.[facility] Comment on above:Performed By: #### CUU, UHCG, ADDONUAPLUS #### [place] [address] USAAutomated basophil countOrdered By: Roya German on 26-15-6250Lregkuybc (Bld) [#/Vol]0.1 10*3/uLNormal0.0-0.2FAvita Health System Galion HospitalComment on above:Result Comment: PERFORMED BY: [place] [address] PATHOLOGIST PHYSICIAN SPECIALIST JL PERKINS M.D.Performed By: #### CUU, UHCG, ADDONUAPLUS #### [place] [address] USAAutomated blood monocyte countOrdered By: Roya German on 41-32-3537Jjqrqqbcc (Bld) [#/Vol]0.7 10*3/uLNormal0.0-0.8Mem[facility] Health SystemComment on above:Performed By: #### CUU, UHCG, ADDONUAPLUS #### [place] [address] USAAutomated eosinophil %Ordered By: Roya German on 06-85-1706Fufwhcdvdvx/100 WBC (Bld)2.0 %Normal.[facility] Comment on above:Performed By: #### CUU, UHCG, ADDONUAPLUS #### [place] [address] USAAutomated eosinophil countOrdered By: Roya German on 09-96-4644Fskpkoskwei (Bld) [#/Vol]0.2 10*3/uLNormal0.0-0.45Mem[facility] Health SystemComment on above:Performed By: #### CUU, UHCG, ADDONUAPLUS #### [place] [address] USAAutomated monocyte %Ordered By: Roya German on 75-91-2278Ahaklnowx/100 WBC (Bld)7.9 %Normal.[facility] Comment on above:Performed By: #### CUU, UHCG, ADDONUAPLUS #### [facility] [address] [place] [address] USAAutomated neutrophil %Ordered By: Roya German on 74-94-3982Sbovxfgjxjj/100 WBC (Bld)53.6 %Normal.[facility] Health SystemComment on above:Performed By: #### CUU, UHCG, ADDONUAPLUS #### [facility] [address] [place] [address] USABasic Metabolic Panelon 56-20-6472Ofsikuzcfz Clr Calc Rfmvvezw[address] [place] [address] Physician GroupComment on above:Performed By: #### CUU, UHCG, ADDONUAPLUS #### [facility] [address] [place] [address] USAGFR/1.73 sq M.predicted MDRD (S/P/Bld) [Vol rate/Area] mL/min/{1.73_m2}NormalThe [facility]ly [facility] Physician [facility] Medical CenterComment on above:Performed By: #### CUU, UHCG, ADDONUAPLUS #### [place] [address] USABilirubin Test strip Ql (U)Ordered By: Roya German on 30-98-2354Skwokcmod Ql (U)NegativeNegativeMemorial Health System Bilirubin.direct [Mass/volume] in Serum or PlasmaOrdered By: Roya German on 80-39-1757Ecfxcdqhq.direct [Mass/Vol]0.10 mg/dL0.03-0.18FAvita Health System Galion HospitalBilirubin.total [Mass/volume] in Serum or PlasmaOrdered By: Roya German on 84-38-5517Skjqbiota [Mass/Vol]0.4 mg/dLNormal0.3-1.0[facility] Health SystemComment on above:Performed By: #### CUU, UHCG, ADDONUAPLUS #### [facility] [address] [place] [address] USACT abdomen pelvis w conon 77-71-4646DJ abdomen pelvis w [facility] [address] [place] [address] CT Scan Report Signed Patient: Tracie Samuels MR#: [id number] 640 : 1990 Acct:[id number] Age/Sex: 33 / F ADM Date: 07/14/23 Loc: ER Room: Type: [facility] ER Attending Dr: Copies to: Roya [...] Uterus is grossly unremarkable. No adnexal mass.] Peritoneum/Retroperitoneum:Trace free fluid seen within the pelvis. No free air. No lymphadenopathy.[ Abd wall/Bones:Abdominal wall demonstrates no acute findings. Osseous structures demonstrate degenerative change.[ CT/CT abdomen pelvis w con IMPRESSION: No acute findings. Left nephrolithiasis. Impression dictated by: Dale Huerta Jr., D.OCheryl07/14/2023 5:40 PM Dictation Location: [place] [address] Transcribed By: [facility] 07/14/23 1740 Dictated By: Dale Huerta Jr, DO 07/14/23 1737 Signed By: 07/14/23 1740T[facility] Physician GroupCalcium [Mass/volume] in Serum or PlasmaOrdered By: Roya German on 49-34-0474Rzocblw [Mass/Vol]8.9 mg/dL Normal8.6-10.3FAvita Health System Galion HospitalComment on above:Performed By: #### CUU, UHCG, ADDONUAPLUS #### [facility] [address] [place] [address] USACarbon dioxide, total [Moles/volume] in Serum or Plasma Ordered By: Roya German on 58-02-6981DI1 [Moles/Vol]23.7 mmol/LNormal 21.0-31.0Mem[facility] Health SystemComment on above:Performed By: #### CUU, UHCG, ADDONUAPLUS #### [place] [address] USAChloride [Moles/volume] in Serum or PlasmaOrdered By: Roya German on 30-72-9040Zrcompgq [Moles/Vol]109 mmol/ZHzxb10-713WiokfrdscMemorial Health SystemComment on above:Performed By: #### CUU, UHCG, ADDONUAPLUS #### [place] [address] USAColor of Urine by AutoOrdered By: Roya German on 10-88-3650Ugbpn (U)YellowNormalYellowMemorial Health SystemComment on above:Order Comment: Name Collection Type:: Clean-Voided MidstreamPerformed By: #### CUU, UHCG, ADDONUAPLUS #### [place] [address] USAComplete Blood Count Auto Diffon 80-60-7588Wppj Corpuscular HGB Conc33.6 g/qNIklidl42.0-35.0The [facility] Physician GroupComment on above:Performed By: #### CUU, UHCG, ADDONUAPLUS #### [place] [address] USAMonocytes/100 WBC (Bld)19.10 %Normal0.00-20.00The [facility] Physician GroupComment on above:Performed By: #### CUU, UHCG, ADDONUAPLUS #### [place] [address] USANRBC%0.0 /100{WBC}Normal0-0.5The [facility] Physician Group Comment on above:Performed By: #### CUU, UHCG, ADDONUAPLUS #### [facility] [address] [place] [address] USACreatinine [Mass/volume] in Serum or PlasmaOrdered By: Roya German on 22-40-7179Mcdxygpjaq [Mass/Vol]0.69 mg/dLNormal0.60-1.20 [facility] SystemComment on above:Performed By: #### CUU, UHCG, ADDONUAPLUS #### [place] [address] USAErythrocyte distribution width [Ratio] by Automated count Ordered By: Roya German on 27-11-9207Xxiplungsxo distribution width (RBC) [Ratio]13.4 %Qfhlgd28.9-15.3FAvita Health System Galion HospitalComment on above: Performed By: #### CUU, UHCG, ADDONUAPLUS #### [place] [address] USAErythrocytes [#/volume] in Blood by Automated countOrdered By: Roya German on 57-57-6752QGE (Bld) [#/Vol]4.10 10*6/uLNormal3.60-5.00 [facility] SystemComment on above:Performed By: #### CUU, UHCG, ADDONUAPLUS #### [place] [address] USAGlucose [Mass/volume] in Serum or PlasmaOrdered By: Roya German on 94-57-4464Pfpsyhc [Mass/Vol]99 mg/eBZkiilp94-831RgenjjgyzMemorial Health SystemComment on above:ADA recommended reference rangeRandom Glucose Reference Range is dependent on time and content of last meal. Glucose of more than 200 mg/dL in a nonstressed, ambulatory subject supports the diagnosisof Diabetes Mellitus.Result Comment: Random Glucose Reference Range is dependent on time and content of last meal. Glucose of more than 200 mg/dL in a nonstressed, ambulatory subject supports the diagnosis of Diabetes Mellitus. ADA recommended reference rangePerformed By: #### CUU, UHCG, ADDONUAPLUS #### [place] [address] USAHCG ( test) IA.rapid Ql (U)Ordered By: Roya German on 06-59-6607FSX ( test) Ql (U)NegativeFirEast Ohio Regional HospitalHCG,Urineon 00-10-5470Lhjh HCG ( test) Ql (U)Negative NormalThe [facility] Physician GroupComment on above:Order Comment: Name Collection Type:: Clean-Voided MidstreamResult Comment: PERFORMED BY: [place] [address] PATHOLOGIST PHYSICIAN SPECIALIST JL PERKINS M.D.Performed By: #### CUU, UHCG, ADDONUAPLUS #### [place] [address] USAHematocrit [Volume Fraction] of Blood by Automated count Ordered By: Roya German on 04-40-4408Ytypijzlis (Bld) [Volume fraction]36.1 % Qvmygy42.0-46.4FAvita Health System Galion HospitalComment on above:Performed By: #### CUU, UHCG, ADDONUAPLUS #### [place] [address] USAHemoglobin [Mass/volume] in BloodOrdered By: Roya German on 19-05-5704Ovgjdpcmls (Bld) [Mass/Vol]12.1 g/nQYpeoow21.8-15.4FAvita Health System Galion HospitalComment on above:Performed By: #### CUU, UHCG, ADDONUAPLUS #### [facility] [address] [place], [place] [id number] USAHepatic Panelon 61-65-1684Rmthoqd [Mass/Vol]3.9 g/dLNormal 3.5-5.7The [facility] Physician GroupComment on above:Performed By: #### CUU, UHCG, ADDONUAPLUS #### [place] [address] USABilirubin,Indirect0.3 mg/dLNormalThe [facility] Physician GroupComment on above:Performed By: #### CUU, UHCG, ADDONUAPLUS #### [place] [address] USABilirubin.indirect [Mass/Vol]0.10 mg/dLNormal0.03-0.18The [facility] Physician [facility] Medical CenterComment on above:Performed By: #### CUU, UHCG, ADDONUAPLUS #### [place] [address] USAKetones Auto test strip (U) [Mass/Vol]Ordered By: Roya German on 47-80-0590Qmssapd (U) [Mass/Vol]NegativeNegativeMemorial Health SystemLeukocytes [#/volume] corrected for nucleated erythrocytes in Blood by Automated counOrdered By: Roya German on 00-46-2938SXH corrected for nucl RBC Auto (Bld) [#/Vol]8.8 10*3/uL3.8-11.6FAvita Health System Gal[facility] Hospital Leukocytes [#/volume] in Blood by Automated countOrdered By: Roya German on 09-29-3023WKW (Bld) [#/Vol]8.8 10*3/uLNormal3.8-11.6FAvita Health System Galion HospitalComment on above:Performed By: #### CUU, UHCG, ADDONUAPLUS #### [place] [address] USALipase [Enzymatic activity/volume] in Serum or Plasma Ordered By: Roya German on 19-31-5155Yvcpmp [Catalytic activity/Vol]20.0 U/L Jfzaqf30.0-82.0Memorial Health SystemComment on above:Result Comment: PERFORMED BY: [place] [address] PATHOLOGIST PHYSICIAN SPECIALIST JL PERKINS M.D.Performed By: #### CUU, UHCG, ADDONUAPLUS #### [place] [address] USALymphocytes [#/volume] in Blood by Automated countOrdered By: Roya German on 08-10-7527Uweqouaephn (Bld) [#/Vol]3.2 10*3/uLNormal 1.00-4.8Memorial Health SystemComment on above:Performed By: #### CUU, UHCG, ADDONUAPLUS #### [facility] [address] [place] [address] USALymphocytes/100 leukocytes in Blood by Automated count Ordered By: Roya German on 19-49-9362Smeibkkxvch/100 WBC (Bld)35.9 %Normal. Memorial Health SystemComment on above:Performed By: #### CUU, UHCG, ADDONUAPLUS #### [facility] [address] [Entitic mass] by Automated countOrdered By: Roya German on 32-53-6655VHC (RBC) [Entitic mass]29.7 ooMoxzim74.7-34.3FAvita Health System Galion HospitalComment on above:Performed By: #### CUU, UHCG, ADDONUAPLUS #### [facility] [address] [place], [place] [address]MCHC Auto (RBC) [Mass/Vol]Ordered By: Roya German on 36-10-5725OBTR (RBC) [Mass/Vol]33.6 g/dL32.0-35.0Memorial Health SystemMCV [Entitic volume] by Automated countOrdered By: Roya German on 07-99-8724PMW (RBC) [Entitic vol]88.2 jAQsuvrt78-016EbgkwweiuMemorial Health SystemComment on above:Performed By: #### CUU, UHCG, ADDONUAPLUS #### [facility] [address] [place] [address] USAMonocyte distribution width [Entitic volume] in Blood by AutomatedOrdered By: Roya German on 76-20-9909Kfbtkpox distribution width Auto (Bld) [Entitic vol]19.10 %0.00-20.00[facility] Neutrophils [#/volume] in Blood by Automated countOrdered By: Roya German on 69-10-4731Hvlekyinpsm (Bld) [#/Vol]4.7 10*3/uLNormal1.8-7.7FAvita Health System Galion HospitalComment on above:Performed By: #### JEFF NIEVES, JARETTONUAPLUS #### [facility] [address] [place] [address] USANitrite Test strip Ql (U)Ordered By: Roya German on 49-04-2999Tygpeqe Ql (U)NegativeNegativeMemorial Health SystemNo Panel InformationOrdered By: Roya German on 13-16-5439Kfztfdywd GFR (CKD-EPI) > 60.0 mL/MinMemorial Health SystemPharmacy Creatinine Clearance (Oors049.34Memorial Health SystemNucleated erythrocytes [Presence] in Blood by Automated countOrdered By: Roya German on 00-02-1278Tdxlvgtln RBC Auto Ql (Bld)0.0 /100{WBC}0-0.5FAvita Health System Galion HospitalPlatelet mean volume [Entitic volume] in Blood by Automated countOrdered By: Roya German on 34-23-1393Wlkqvhfe mean volume (Bld) [Entitic vol]7.2 fLNormal6.3-10.7FAvita Health System Galion HospitalComment on above:Performed By: #### JEFF NIEVES, JARETTONUAPLUS #### [facility] [address] [place] [address] USAPlatelets [#/volume] in Blood by Automated countOrdered By: Roya German on 76-21-7979Jbwxbengi (Bld) [#/Vol]231 10*3/tHFinyvt216-534 [facility] SystemComment on above:Performed By: #### JEFF NIEVES, ADDONUAPLUS #### [facility] [address] [place] [address] USAPotassium [Moles/volume] in Serum or PlasmaOrdered By: oRya Geramn on 42-55-2112Cjuqvmsie [Moles/Vol]3.9 mmol/LNormal3.5-5.1 [facility] SystemComment on above:Performed By: #### JEFF NIEVES, ADDONUAPLUS #### [facility] [address] [place] [address] USAProtein Auto test strip (U) [Mass/Vol]Ordered By: Roya German on 34-31-2156Rbsjgac (U) [Mass/Vol]NegativeNegativeMemorial Health SystemProtein [Mass/volume] in Serum or PlasmaOrdered By: Roya German on 71-18-5433Bdpfesj [Mass/Vol]7.1 g/dLNormal6.4-8.9[facility] Health SystemComment on above:Performed By: #### CUU, UHCG, ADDONUAPLUS #### [place] [address] USASerum globulin measurement by calculation (mass/volume) Ordered By: Roya German on 74-83-9042Saefzllg (S) [Mass/Vol]3.2 g/dLNormal [facility] SystemComment on above:Performed By: #### CUU, LAKHWINDERCG, ADDONUAPLUS #### [place] [address] USASerum or plasma albumin/globulin mass ratioOrdered By: Roya German on 75-09-4636Qgxeqom/Globulin [Mass ratio]1.2 {ratio}Normal [facility] Health SystemComment on above:Performed By: #### SULEMAU, UHCG, ADDONUAPLUS #### [place] [address] USASerum or plasma anion gap determinationOrdered By: Roya German on 63-16-6056Nfhuw gap [Moles/Vol]8.2 mmol/LNormal6.0-15.0[facility] Health SystemComment on above:Performed By: #### CUU, UHCG, ADDONUAPLUS #### [place] [address] USASerum or plasma non-glucuronidated bilirubin measurement (mass/volume)Ordered By: Roya German on 86-48-9451Exhnzkjqp.indirect [Mass/Vol]0.3 mg/dLKettering Health Prebleodium [Moles/volume] in Serum or PlasmaOrdered By: Roya German on 70-72-5012Mulape [Moles/Vol]137 mmol/ROcyxib033-654SjrxpsxakMemorial Health SystemComment on above:Performed By: #### CUU, UHCG, ADDONUAPLUS #### [facility] [address] [place] [address] USASpecific gravity Auto test strip (U) [Rel density]Ordered By: Roya German on 24-87-6125Vyvwqkxa gravity (U) [Rel density]1.023 1.001-1.030Mem[facility] Health SystemUrea nitrogen [Mass/volume] in Serum or PlasmaOrdered By: Roya German on 78-76-3553Tjnw nitrogen [Mass/Vol]10 mg/dLNormal7-25Mem[facility] Health SystemComment on above:Performed By: #### CUU, UHCG, ADDONUAPLUS #### [facility] [address] [place] [address] USAUrinalysison 00-06-1788Gfkzjbbvuj (U)ClearNormalClearThe Formerly [facility], [facility] Physician GroupComment on above:Order Comment: Name Collection Type:: Clean-Voided MidstreamPerformed By: #### CUU, UHCG, ADDONUAPLUS #### [facility] [address] [place] [address] USABilirubin,UrineNegativeNormalNegativeJackson West Medical Center Physician GroupComment on above:Order Comment: Name Collection Type:: Clean- Voided MidstreamPerformed By: #### CUU, UHCG, ADDONUAPLUS #### [facility] [address] [place] [address] USAGlucose Ql (U)NormalNormalNormalThe Formerly [facility], [facility] Physician GroupComment on above:Order Comment: Name Collection Type:: Clean-Voided MidstreamPerformed By: #### CUU, UHCG, ADDONUAPLUS #### [facility] [address] [place] [address] USAKetones Ql (U)NegativeNormalNegativeThe Formerly [facility], [facility] Physician GroupComment on above:Order Comment: Name Collection Type:: Clean- Voided MidstreamPerformed By: #### CUU, UHCG, ADDONUAPLUS #### [place] [address] USALeukocyte esterase Test strip Ql (U)NegativeNormalNegative The [facility], [facility] Physician GroupComment on above:Order Comment: Name Collection Type:: Clean-Voided MidstreamPerformed By: #### CUU, UHCG, ADDONUAPLUS #### [place] [address] USANitrite,UrineNegativeNormalNegativeThe [facility]ly [facility] Physician GroupComment on above:Order Comment: Name Collection Type:: Clean-Voided MidstreamPerformed By: #### CUU, UHCG, ADDONUAPLUS #### [place] [address] USAOccult Blood,UrineNegativeNormalNegativeThe [facility]ly [facility] Physician GroupComment on above:Order Comment: Name Collection Type:: Clean- Voided MidstreamPerformed By: #### CUU, UHCG, ADDONUAPLUS #### [place] [address] USAProtein,UrineNegativeNormalNegativeThe [facility]ly [facility] Physician GroupComment on above:Order Comment: Name Collection Type:: Clean-Voided MidstreamPerformed By: #### CUU, UHCG, ADDONUAPLUS #### [place] [address] USASpecificy [place],Urine1.492Nrpuud7.001-1.030The [facility] Physician GroupComment on above:Order Comment: Name Collection Type:: Clean- Voided MidstreamPerformed By: #### CUU, UHCG, ADDONUAPLUS #### [place] [address] USAUrobilinogen,UrineNormalNormalNormalThe [facility]ly [facility] Physician GroupComment on above:Order Comment: Name Collection Type:: Clean- Voided MidstreamPerformed By: #### CUU, UHCG, ADDONUAPLUS #### [place] [address] USAUrine clarity by refractometry automatedOrdered By: Roya German on 75-94-2555Xbhqrjj Refractometry automated (U)ClearClear Memorial Health SystemUrine glucose measurement by automated test strip (mass/volume)Ordered By: Roya German on 16-41-8308Wpjpjmd Auto test strip (U) [Mass/Vol]Normal mg/dLTriHealth McCullough-Hyde Memorial HospitalUrine hemoglobin detection by automated test stripOrdered By: Roya German on 73-90-4499Twyqqacqdh Auto test strip Ql (U)NegativeNegSelect Medical Specialty Hospital - YoungstownUrine leukocyte esterase detection by automated test stripOrdered By: Roya German on 07-25-2419Rjuwqeola esterase Auto test strip Ql (U) NegativeNegSelect Medical Specialty Hospital - YoungstownUrine pH measurement by automated test stripOrdered By: Roya German on 81-41-0631uO (U)7.0 [pH]Normal 5.0-9.0[facility] Health SystemComment on above:Order Comment: Name Collection Type:: Clean-Voided MidstreamPerformed By: #### CUU, UHCG, ADDONUAPLUS #### [facility] [address] [place] [address] USAUrobilinogen Auto test strip (U) [Mass/Vol]Ordered By: Roya German on 98-44-9523Arqqatadjycz (U) [Mass/Vol]Normal mg/dLBethesda North HospitalAlanine aminotransferase [Enzymatic activity/volume] in Serum or PlasmaOrdered By: Jason Benton on 82-78-4554WDM [Catalytic activity/Vol]27 U/LNormal7-52[facility] Health SystemComment on above:Performed By: #### LIPASE, CMP, CBC #### [facility] [address] [place] [address] USAAlbumin [Mass/volume] in Serum or Plasma by Bromocresol green (BCG) dye binding methoOrdered By: Jason Benton on 65-53-9430Igzphgs BCG dye [Mass/Vol]4.1 g/dL3.5-5.7FAvita Health System Galion HospitalAlkaline phosphatase [Enzymatic activity/volume] in Serum or PlasmaOrdered By: Jason Benton on 45-77-8896GYS [Catalytic activity/Vol]113 U/MVsce64-879QogefvjmcMemorial Health SystemComment on above:Performed By: #### LIPASE, CMP, CBC #### [place] [address] USAAspartate aminotransferase [Enzymatic activity/volume] in Serum or PlasmaOrdered By: Jason Benton on 47-01-8827QYG [Catalytic activity/Vol]17 U/BAfbgkw42-45UtvtqoyldMemorial Health SystemComment on above: Performed By: #### LIPASE, CMP, CBC #### [place] [address] USAAutomated basophil %Ordered By: Jason Benton on 07-06-2023 Basophils/100 WBC (Bld)0.7 %Normal.[facility] Health SystemComment on above:Performed By: #### LIPASE, CMP, CBC #### [place] [address] USAAutomated basophil countOrdered By: Jason Benton on 95-81-2730Xxxymvmej (Bld) [#/Vol]0.1 10*3/uLNormal0.0-0.2FAvita Health System Galion HospitalComment on above:Result Comment: PERFORMED BY: [place] [address] PATHOLOGIST PHYSICIAN SPECIALIST JL PERKINS M.D.Performed By: #### LIPASE, CMP, CBC #### [place] [address] USAAutomated blood monocyte countOrdered By: Jason Benton on 65-30-4882Yrohmbppw (Bld) [#/Vol]0.6 10*3/uLNormal0.0-0.8Mem[facility] Health SystemComment on above:Performed By: #### LIPASE, CMP, CBC #### [place] [address] USAAutomated eosinophil %Ordered By: Jason Benton on 82-15-7142Tonxrpkpgwx/100 WBC (Bld)2.7 %Normal.[facility] Comment on above:Performed By: #### LIPASE, CMP, CBC #### [address] [place] [address] USAAutomated eosinophil countOrdered By: Jason Benton on 83-22-9676Acuekdtdkgf (Bld) [#/Vol]0.3 10*3/uLNormal0.0-0.45[facility] Health SystemComment on above:Performed By: #### LIPASE, CMP, CBC #### [place] [address] USAAutomated monocyte %Ordered By: Jason Benton on 07-06-2023 Monocytes/100 WBC (Bld)4.8 %Normal.[facility] Health SystemComment on above:Performed By: #### LIPASE, CMP, CBC #### [place] [address] USAAutomated neutrophil %Ordered By: Jason Benton on 39-42-2016Jljkepuavfl/100 WBC (Bld)75.2 %Normal.[facility] Health SystemComment on above:Performed By: #### LIPASE, CMP, CBC #### [place] [address] USABilirubin.total [Mass/volume] in Serum or PlasmaOrdered By: Jason Benton on 04-58-1761Qsevcqdrj [Mass/Vol]0.3 mg/dLNormal0.3-1.0 [facility] SystemComment on above:Performed By: #### LIPASE, CMP, CBC #### [place] [address] USACT head/brain wo conon 87-63-9325IF head/brain wo con [facility] [place] [address] CT Scan Report Signed Patient: Tracie Samuels MR#: [id number] 640 : 1990 Acct:[id number] Age/Sex: 33 / F ADM Date: 07/06/23 Loc: ER Room: Type: [facility] ER Attending Dr: Copies to: Jason [...] Quique Lai M.D.07/06/2023 8:06 AM Dictation Location: [place] [address] Transcribed By: [facility] 07/06/23805 Dictated By: Quique Lai DO 07/06/23803 Signed By: 07/06/23805[facility] Physician GroupCalcium [Mass/volume] in Serum or PlasmaOrdered By: Jason Benton on 45-91-9222Rsptyzs [Mass/Vol]8.8 mg/dLNormal 8.6-10.3FAvita Health System Galion HospitalComment on above:Performed By: #### LIPASE, CMP, CBC #### [facility] [address] [place] [address] USACarbon dioxide, total [Moles/volume] in Serum or Plasma Ordered By: Jason Benton on 18-81-2601DK6 [Moles/Vol]25.2 mmol/NJxyvpp19.0-31.0 [facility] Health SystemComment on above:Performed By: #### LIPASE, CMP, CBC #### [facility] [address] [place] [address] USAChloride [Moles/volume] in Serum or PlasmaOrdered By: Jason Benton on 76-94-3805Suaedaqp [Moles/Vol]106 mmol/HHshcyq73-116OjuekvymeMemorial Health SystemComment on above:Performed By: #### LIPASE, CMP, CBC #### [place] [address] USAComplete Blood Count Auto Diffon 17-19-9361Lvms Corpuscular HGB Conc33.5 g/hTRciyga34.0-35.0The [facility] Physician GroupComment on above:Performed By: #### LIPASE, CMP, CBC #### [place] [address] USAMonocytes/100 WBC (Bld)21.15 %High0.00-20.00The [facility] Physician GroupComment on above:Result Comment: For adults in ED, MDW > 20.0 may be associated with a higher risk of sepsis during the first 12 hrs of hospital admissionPerformed By: #### LIPASE, CMP, CBC #### [place] [address] USANRBC%0.0 /100{WBC}Normal0-0.5The [facility] Comment on above:Performed By: #### LIPASE, CMP, CBC #### [place] [address] USAComprehensive Metabolic Panelon 23-43-8538Sskegts [Mass/Vol]4.1 g/dLNormal3.5-5.7The [facility] Physician GroupComment on above: Performed By: #### LIPASE, CMP, CBC #### [place] [address] USACreatinine Clr Calc Jdukacrn273.38NormalThe [facility]ly [facility] Physician GroupComment on above:Performed By: #### LIPASE, CMP, CBC #### [place] [address] USAGFR/1.73 sq M.predicted MDRD (S/P/Bld) [Vol rate/Area] mL/min/{1.73_m2}NormalThe [facility]ly [facility] Physician GroupComment on above:Performed By: #### LIPASE, CMP, CBC #### [place] [address] USACreatinine [Mass/volume] in Serum or PlasmaOrdered By: Jason Benton on 44-68-2045Rhganwvbep [Mass/Vol]0.74 mg/dLNormal0.60-1.20 [facility] SystemComment on above:Performed By: #### LIPASE, CMP, CBC #### [facility] [address] [place] [address] USAErythrocyte distribution width [Ratio] by Automated count Ordered By: Jason Benton on 54-81-0083Nbuvvdepupe distribution width (RBC) [Ratio]13.2 %Tjdpoi17.9-15.3FAvita Health System Galion HospitalComment on above: Performed By: #### LIPASE, CMP, CBC #### [facility] [address] [place] [address] USAErythrocytes [#/volume] in Blood by Automated countOrdered By: Jason Benton on 11-07-9272KHB (Bld) [#/Vol]4.15 10*6/uLNormal3.60-5.00 [facility] SystemComment on above:Performed By: #### LIPASE, CMP, CBC #### [facility] [address] [place] [address] USAGlucose [Mass/volume] in Serum or PlasmaOrdered By: Jason Benton on 42-95-4220Hbahpkw [Mass/Vol]96 mg/pTIwspff12-275BucxuklosMemorial Health SystemComment on above:ADA recommended reference rangeRandom Glucose Reference Range is dependent on time and content of last meal. Glucose of more than 200 mg/dL in a nonstressed, ambulatory subject supports the diagnosisof Diabetes Mellitus.Result Comment: Random Glucose Reference Range is dependent on time and content of last meal. Glucose of more than 200 mg/dL in a nonstressed, ambulatory subject supports the diagnosis of Diabetes Mellitus. ADA recommended reference rangePerformed By: #### LIPASE, CMP, CBC #### [facility] [address] [place] [address] USAHematocrit [Volume Fraction] of Blood by Automated count Ordered By: Jason Benton on 38-95-6116Tbjxqfgole (Bld) [Volume fraction]36.8 % Kgthia96.0-46.4FAvita Health System Galion HospitalComment on above:Performed By: #### LIPASE, CMP, CBC #### [place] [id number] USAHemoglobin [Mass/volume] in BloodOrdered By: Jason Benton on 69-63-2955Ucwfbnhcjl (Bld) [Mass/Vol]12.3 g/iQDlftfv45.8-15.4FAvita Health System Galion HospitalComment on above:Performed By: #### LIPASE, CMP, CBC #### [facility] [address] [place] [address] USALeukocytes [#/volume] corrected for nucleated erythrocytes in Blood by Automated counOrdered By: Jason Benton on 75-68-8396KTF corrected for nucl RBC Auto (Bld) [#/Vol]12.9 10*3/uLHigh3.8-11.6FAvita Health System Galion HospitalLeukocytes [#/volume] in Blood by Automated countOrdered By: Jason Benton on 96-39-7874YSY (Bld) [#/Vol]12.9 10*3/uLHigh3.8-11.6FAvita Health System Galion HospitalComment on above:Performed By: #### LIPASE, CMP, CBC #### [place] [id number] USALipase [Enzymatic activity/volume] in Serum or Plasma Ordered By: Jason Benton on 72-16-0095Quldsh [Catalytic activity/Vol]25.0 U/L Yqiuna26.0-82.0[facility] Health SystemComment on above:Result Comment: PERFORMED BY: [place] [address] PATHOLOGIST PHYSICIAN SPECIALIST JL PERKINS M.D.Performed By: #### LIPASE, CMP, CBC #### [place] [address] USALymphocytes [#/volume] in Blood by Automated countOrdered By: Jason Benton on 28-34-4394Chiipwezwpi (Bld) [#/Vol]2.1 10*3/uLNormal1.00-4.8 [facility] SystemComment on above:Performed By: #### LIPASE, CMP, CBC #### [facility] [address] [place] [address] USALymphocytes/100 leukocytes in Blood by Automated count Ordered By: Jason Benton on 72-73-4563Zbzqphvfzwu/100 WBC (Bld)16.6 %Normal. [facility] Health SystemComment on above:Performed By: #### LIPASE, CMP, CBC #### [address] [Entitic mass] by Automated countOrdered By: Jason Benton on 59-16-3373OBQ (RBC) [Entitic mass]29.6 oxGfmzpm05.7-34.3FAvita Health System Galion HospitalComment on above:Performed By: #### LIPASE, CMP, CBC #### [place] [address] USAHC Auto (RBC) [Mass/Vol]Ordered By: Jason Benton on 33-23-6468NQVB (RBC) [Mass/Vol]33.5 g/dL32.0-35.0Mem[facility] Health SystemMCV [Entitic volume] by Automated countOrdered By: Jason Benton on 51-87-3600OPC (RBC) [Entitic vol]88.6 rZGcwxgy53-692AclugcbruMemorial Health SystemComment on above:Performed By: #### LIPASE, CMP, CBC #### [place] [address] USAMonocyte distribution width [Entitic volume] in Blood by AutomatedOrdered By: Jason Benton on 11-74-2787Hnpdpiny distribution width Auto (Bld) [Entitic vol]21.15 %High0.00-20.00[facility] Health SystemComment on above:For adults in ED, MDW > 20.0 may be associated with a higher risk of sepsis during the first 12 hrs of hospital admissionNeutrophils [#/volume] in Blood by Automated countOrdered By: Jason Benton on 32-50-7456Zdsfwszlfrp (Bld) [#/Vol]9.7 10*3/uLHigh1.8-7.7Firelands Regional Medical CenterComment on above: Performed By: #### LIPASE, CMP, CBC #### [facility] [address] [place] [address] USANo Panel InformationOrdered By: Jason Benton on 07-06-2023 Estimated GFR (CKD-EPI)> 60.0 mL/MinMemorial Health SystemPharmacy Creatinine Clearance (Yuzs245.38Memorial Health SystemNucleated erythrocytes [Presence] in Blood by Automated countOrdered By: Jason Benton on 87-29-1704Oqudkcipt RBC Auto Ql (Bld)0.0 /100{WBC}0-0.5FAvita Health System Galion HospitalPlatelet mean volume [Entitic volume] in Blood by Automated count Ordered By: Jason Benton on 74-32-0186Anxvjcec mean volume (Bld) [Entitic vol] 7.2 fLNormal6.3-10.7FAvita Health System Galion HospitalComment on above:Performed By: #### LIPASE, CMP, CBC #### [place] [address] USAPlatelets [#/volume] in Blood by Automated countOrdered By: Jason Benton on 10-25-4334Cpjhocsal (Bld) [#/Vol]241 10*3/wCEycqcy379-195 [facility] SystemComment on above:Performed By: #### LIPASE, CMP, CBC #### [place] [address] USAPotassium [Moles/volume] in Serum or PlasmaOrdered By: Jason Benton on 32-19-3216Ywtwigkhk [Moles/Vol]3.7 mmol/LNormal3.5-5.1FAvita Health System Galion HospitalComment on above:Performed By: #### LIPASE, CMP, CBC #### [place] [address] USAProtein [Mass/volume] in Serum or PlasmaOrdered By: Jason Benton on 02-31-6377Teltudf [Mass/Vol]7.6 g/dLNormal6.4-8.9[facility] Health SystemComment on above:Performed By: #### LIPASE, CMP, CBC #### [place] [address] USASerum globulin measurement by calculation (mass/volume) Ordered By: Jason Benton on 92-41-7496Vlstpjdm (S) [Mass/Vol]3.5 g/dLNormal [facility] SystemComment on above:Performed By: #### LIPASE, CMP, CBC #### [place] [address] USASerum or plasma albumin/globulin mass ratioOrdered By: Jason Benton on 72-25-2377Iymcinn/Globulin [Mass ratio]1.2 {ratio}Normal [facility] SystemComment on above:Performed By: #### LIPASE, CMP, CBC #### [place] [address] USASerum or plasma anion gap determinationOrdered By: Jason Benton on 36-31-2304Zkuqw gap [Moles/Vol]8.5 mmol/LNormal6.0-15.0[facility] SystemComment on above:Performed By: #### LIPASE, CMP, CBC #### [place] [address] USASodium [Moles/volume] in Serum or PlasmaOrdered By: Jason Benton on 73-16-5856Baptsg [Moles/Vol]136 mmol/TCqkoyw711-529JmmhxemxrMemorial Health SystemComment on above:Performed By: #### LIPASE, CMP, CBC #### [place] [address] USAUrea nitrogen [Mass/volume] in Serum or PlasmaOrdered By: Jason Benton on 82-11-8582Btfa nitrogen [Mass/Vol]10 mg/dLNormal7-25Mem[facility] Health SystemComment on above:Performed By: #### LIPASE, CMP, CBC #### [place] [address] USAActivated partial thromboplastin time (aPTT) in platelet poor plasma by coagulation aOrdered By: Tate Marcial on 15-94-0436nTMC Coag (PPP) [Time]28.3 s25.1-36.5Firelands Regional Medical CenterComment on above:A hematocrit value greater than 55% may lead to inaccurate results in coagulation testing. Patientshaving hematocrit values >55% require a special collection tube for coagulation studies. Please contact the laboratory at [phone] for redraw instructions.Alanine aminotransferase [Enzymatic activity/volume] in Serum or PlasmaOrdered By: Tate Marcial on 27-84-6650ZFZ [Catalytic activity/Vol] 11 U/L7-52Mem[facility] Health SystemAlbumin [Mass/volume] in Serum or Plasma by Bromocresol green (BCG) dye binding methoOrdered By: Tate Marcial on 84-01-7594Sgmvxrx BCG dye [Mass/Vol]3.8 g/dL3.5-5.7FAvita Health System Galion HospitalAlkaline phosphatase [Enzymatic activity/volume] in Serum or PlasmaOrdered By: Tate Marcial on 48-01-0191DGL [Catalytic activity/Vol]101 U/Y00-182HbofvlkiwMemorial Health SystemAspartate aminotransferase [Enzymatic activity/volume] in Serum or PlasmaOrdered By: Tate Marcial on 23-84-8984IBQ [Catalytic activity/Vol] 15 U/O30-34JtpdlmknjMemorial Health SystemAutomated erythrocytes count in urine sediment (number/area)Ordered By: Tate Marcial on 78-78-1403ZZA Auto (Urine sed) [#/Area]0-1 [HPF]0-4FAvita Health System Galion HospitalAutomated leukocytes count in urine sediment (number/area)Ordered By: Tate Marcial on 24-19-8729AXO Auto (Urine sed) [#/Area]5-9 [HPF]0-4FAvita Health System Galion HospitalBasophils Auto (Bld) [#/Vol]Ordered By: Tate Marcial on 21-48-1779Udfifkvts (Bld) [#/Vol] 0.1 10*3/uL0.0-0.2FAvita Health System Galion HospitalBasophils/100 WBC Auto (Bld) Ordered By: Tate Marcial on 16-70-3691Auprdgifb/100 WBC (Bld)0.9 %.Memorial Health SystemBilirubin Test strip Ql (U)Ordered By: Tate Marcial on 93-85-1031Clvhtzzjt Ql (U)NegativeNegativeMemorial Health System Bilirubin.direct [Mass/volume] in Serum or PlasmaOrdered By: Tate Marcial on 08-88-1645Akbwrjzml.direct [Mass/Vol]0.10 mg/dL0.03-0.18FAvita Health System Galion HospitalBilirubin.total [Mass/volume] in Serum or PlasmaOrdered By: Tate Marcial on 39-97-5808Aairdnena [Mass/Vol]0.2 mg/dL0.3-1.0[facility] SystemCalcium [Mass/volume] in Serum or PlasmaOrdered By: Tate Marcial on 99-14-9031Vsxvtqm [Mass/Vol]8.7 mg/dL8.6-10.3FAvita Health [facility] Carbon dioxide, total [Moles/volume] in Serum or PlasmaOrdered By: Tate Marcial on 80-10-7581TV7 [Moles/Vol]24.4 mmol/L21.0-31.0[facility] SystemChloride [Moles/volume] in Serum or PlasmaOrdered By: Tate Marcial on 40-56-3155Vvjwtcqd [Moles/Vol]108 mmol/R27-199YtelzeoloMemorial Health System Color Auto (U)Ordered By: Tate Marcial on 90-95-1509Cejld (U)YellowYellow [facility] SystemCreatinine [Mass/volume] in Serum or Plasma Ordered By: Tate Marcial on 73-41-4890Ixbiggzeid [Mass/Vol]0.70 mg/dL0.60-1.20 [facility] SystemEosinophils Auto (Bld) [#/Vol]Ordered By: Tate Marcial on 07-54-2664Dnipaaawyxw (Bld) [#/Vol]0.2 10*3/uL0.0-0.45[facility] SystemEosinophils/100 WBC Auto (Bld)Ordered By: Tate Marcial on 53-19-6806Ceugwfxnmbc/100 WBC (Bld)2.5 %.[facility] Erythrocyte distribution width Auto (RBC) [Ratio]Ordered By: Tate Marcial on 77-83-4975Atcgrlnksbj distribution width (RBC) [Ratio]13.2 %11.9-15.3FAvita Health System Galion HospitalGlobulin Calc (S) [Mass/Vol]Ordered By: Tate Marcial on 94-98-2273Mzzvvejl (S) [Mass/Vol]3.4 g/dLMemorial Health System Glucose [Mass/volume] in Serum or PlasmaOrdered By: Tate Marcial on 06-13-2023 Glucose [Mass/Vol]99 mg/zJ10-597TygdydtrlMemorial Health SystemComment on above:ADA recommended reference rangeRandom Glucose Reference Range is dependent on time and content of last meal. Glucose of more than 200 mg/dL in a nonstressed, ambulatory subject supports the diagnosisof Diabetes Mellitus.HCG ( test) IA.rapid Ql (U)Ordered By: Tate Marcial on 15-68-2303FEB ( test) Ql (U)NegativeMemorial Health SystemHematocrit Auto (Bld) [Volume fraction]Ordered By: Tate Marcial on 34-82-3446Rmiokgykux (Bld) [Volume fraction]36.2 %34.0-46.4FAvita Health System Galion HospitalHemoglobin [Mass/volume] in BloodOrdered By: Tate Marcial on 95-76-3798Yugugecliz (Bld) [Mass/Vol]12.1 g/dL11.8-15.4FAvita Health System Galion HospitalINR in Platelet poor plasma by Coagulation assayOrdered By: Tate Marcial on 06-21-8010CGT Coag (PPP) [Relative time]0.9 {INR}[facility] SystemComment on above: INR Therapeutic Range A) Pre- and Peroperative [...] By: Tate Marcial on 06-13-2023 Ketones (U) [Mass/Vol]NegativeNegativeMemorial Health System Laboratory - UrinalysisOrdered By: Tate Marcial on 55-44-8897Wnksrle casts LM Ql (Urine sed)None seen [LPF]0-8[facility] SystemLeukocytes [#/volume] corrected for nucleated erythrocytes in Blood by Automated coun Ordered By: Tate Marcial on 01-30-3624HRW corrected for nucl RBC Auto (Bld) [#/Vol]8.6 10*3/uL3.8-11.6FAvita Health System Galion HospitalLipase [Enzymatic activity/volume] in Serum or PlasmaOrdered By: Tate Marcial on 19-36-9128Toyvlm [Catalytic activity/Vol]24.0 U/L11.0-82.0[facility] Lymphocytes Auto (Bld) [#/Vol]Ordered By: Tate Marcial on 43-60-0269Zkxgfqvokym (Bld) [#/Vol]2.8 10*3/uL1.00-4.8[facility] SystemLymphocytes/100 WBC Auto (Bld)Ordered By: Tate Marcial on 71-66-4776Wstptbtalys/100 WBC (Bld) 33.0 %.[facility] AndersonH Auto (RBC) [Entitic mass]Ordered By: Tate Marcial on 97-96-0771LTI (RBC) [Entitic mass]29.5 pg24.7-34.3FAvita Health System Galion HospitalMCHC Auto (RBC) [Mass/Vol]Ordered By: Tate Marcial on 83-25-2637KAYJ (RBC) [Mass/Vol]33.4 g/dL32.0-35.0[facility] SystemMCV Auto (RBC) [Entitic vol]Ordered By: Tate Marcial on 76-72-4940QOS (RBC) [Entitic vol]88.1 dD70-858UpmsqrasrMemorial Health SystemMonocyte distribution width [Entitic volume] in Blood by AutomatedOrdered By: Tate Marcial on 20-90-9167Tmmvxuep distribution width Auto (Bld) [Entitic vol]18.81 %0.00-20.00 [facility] SystemMonocytes Auto (Bld) [#/Vol]Ordered By: Tate Marcial on 10-37-7201Zsufacvto (Bld) [#/Vol]0.6 10*3/uL0.0-0.8[facility] SystemMonocytes/100 WBC Auto (Bld)Ordered By: Tate Marcial on 06-13-2023 Monocytes/100 WBC (Bld)7.2 %.[facility] SystemNeutrophils Auto (Bld) [#/Vol]Ordered By: Tate Marcial on 12-97-9796Dgvfktjixcy (Bld) [#/Vol]4.9 10*3/uL1.8-7.7FAvita Health System Galion HospitalNeutrophils/100 WBC Auto (Bld) Ordered By: Tate Marcial on 45-28-9953Kxrdnviltga/100 WBC (Bld)56.4 %.[facility] SystemNitrite Test strip Ql (U)Ordered By: Tate Marcial on 87-87-0662Cwfwbpz Ql (U)NegativeNegativeMemorial Health SystemNo Panel InformationOrdered By: Tate Marcial on 33-08-8524Notscprem GFR (CKD-EPI)> 60.0 mL/MinMemorial Health SystemPharmacy Creatinine Clearance (Chem 118.47[facility] SystemNucleated erythrocytes [Presence] in Blood by Automated countOrdered By: Tate Marcial on 40-34-5204Agruekrga RBC Auto Ql (Bld)0.0 /100{WBC}0-0.5FAvita Health System Galion HospitalPlatelet mean volume Auto (Bld) [Entitic vol]Ordered By: Tate Marcial on 67-04-5831Zgkyhbdp mean volume (Bld) [Entitic vol]7.2 fL6.3-10.7FAvita Health System Gal[facility] Hospital Platelets Auto (Bld) [#/Vol]Ordered By: Tate Marcial on 17-45-8542Wfgrnzxzu (Bld) [#/Vol]238 10*3/yY950-648AkpkqeutdMemorial Health SystemPotassium [Moles/volume] in Serum or PlasmaOrdered By: Tate Marcial on 26-72-2250Tdujxnyey [Moles/Vol]4.4 mmol/L3.5-5.1FAvita Health System Galion HospitalPotassium [Moles/Vol]See comment3.5-5.1FAvita Health System Galion HospitalComment on above: Specimen hemolyzed, redraw requestedProtein Auto test strip (U) [Mass/Vol] Ordered By: Tate Marcial on 24-69-1509Ntxtolw (U) [Mass/Vol]NegativeNegative [facility] SystemProtein [Mass/volume] in Serum or PlasmaOrdered By: Tate Marcial on 96-89-4861Wippzmq [Mass/Vol]7.2 g/dL6.4-8.9[facility] SystemProthrombin time (PT)Ordered By: Tate Marcial on 92-60-0427ZG Coag (PPP) [Time]10.5 s9.0-12.9[facility] Comment on above:A hematocrit value greater than 55% may lead to inaccurate results in coagulation testing. Patientshaving hematocrit values >55% require a special collection tube for coagulation studies. Please contact the laboratory at [phone] for redraw instructions.RBC Auto (Bld) [#/Vol]Ordered By: Tate Marcial on 91-79-3773DQV (Bld) [#/Vol]4.10 10*6/uL3.60-5.00[facility] Prebleerum or plasma albumin/globulin mass ratioOrdered By: Tate Marcial on 42-62-1134Hcyoyti/Globulin [Mass ratio]1.1 {ratio}[facility] Prebleerum or plasma anion gap determinationOrdered By: Tate Marcial on 61-92-2770Aqslp gap [Moles/Vol][facility] HospitalComment on above:Test not performedSerum or plasma non-glucuronidated bilirubin measurement (mass/volume)Ordered By: Tate Marcial on 02-53-5766Yazhgkrfi.indirect [Mass/Vol] [facility] HospitalComment on above:Test not performedSodium [Moles/volume] in Serum or PlasmaOrdered By: Tate Marcial on 50-49-8028Qnvaic [Moles/Vol]137 mmol/Y517-080TwoeolhmnKettering Health Preblepecific gravity Auto test strip (U) [Rel density]Ordered By: Tate Marcial on 84-79-0842Nvasujxw gravity (U) [Rel density]1.0181.001-1.030[facility] Squamous epithelial cells detection in urine sediment by light microscopyOrdered By: Tate Marcial on 51-48-3361Fszmhfjhek cells.squamous LM Ql (Urine sed)10-19 [HPF]0-2FAvita Health System Galion HospitalUrea nitrogen [Mass/volume] in Serum or PlasmaOrdered By: Tate Marcial on 76-37-1678Vyco nitrogen [Mass/Vol]8 mg/dL7-25 [facility] SystemUrine bacteria detection by automated method Ordered By: Tate Marcial on 84-18-1086Jsgnslen Auto Ql (U)1+None SeenMemorial Health SystemUrine clarity by refractometry automatedOrdered By: Tate Marcial on 70-16-0645Jedywte Refractometry automated (U)CloudyClearFAvita Health System Galion HospitalUrine culture routineOrdered By: Tate Marcial on 04-67-9266Gxxhbgnr identified Cx Nom (U)2 DaysMemorial Health System Urine glucose measurement by automated test strip (mass/volume)Ordered By: Tate Marcial on 07-20-6106Lpbxnnf Auto test strip (U) [Mass/Vol]Normal mg/dLNormal [facility] SystemUrine hemoglobin detection by automated test stripOrdered By: Tate Marcial on 71-70-1719Zyztpqkpmw Auto test strip Ql (U)1+ NegativeMemorial Health SystemUrine leukocyte esterase detection by automated test stripOrdered By: Tate Marcial on 10-76-8950Xfxfpteyt esterase Auto test strip Ql (U)1+NegativeMemorial Health SystemUrobilinogen Auto test strip (U) [Mass/Vol]Ordered By: Tate Marcial on 52-68-2105Fxjyvgfdqbxg (U) [Mass/Vol]Normal mg/dLNormAshtabula County Medical CenterWBC Auto (Bld) [#/Vol]Ordered By: Tate Marcial on 98-86-4964GWV (Bld) [#/Vol]8.6 10*3/uL3.8-11.6 [facility] SystempH Auto test strip (U)Ordered By: Tate Marcial on 14-18-7097pL (U)6.0 [pH]5.0-9.0[facility] SystemHCG ( test) IA.rapid Ql (U)Ordered By: JAELYN HARRINGTON on 52-33-0643IOY ( test) Ql (U)NegativeMemorial Health SystemAlanine aminotransferase [Enzymatic activity/volume] in Serum or PlasmaOrdered By: Tate Marcial on 96-88-1151HBT [Catalytic activity/Vol]11 U/L7-52[facility] SystemAlbumin [Mass/volume] in Serum or Plasma by Bromocresol green (BCG) dye binding methoOrdered By: Tate Marcial on 48-33-7336Mxpjnsd BCG dye [Mass/Vol]4.1 g/dL3.5-5.7FAvita Health System Galion HospitalAlkaline phosphatase [Enzymatic activity/volume] in Serum or PlasmaOrdered By: Tate Marcial on 09-57-4074AGZ [Catalytic activity/Vol]89 U/U60-110YokbnvnbdMemorial Health SystemAspartate aminotransferase [Enzymatic activity/volume] in Serum or Plasma Ordered By: Tate Marcial on 00-04-5389JCW [Catalytic activity/Vol]13 U/L13-39 [facility] SystemAutomated erythrocytes count in urine sediment (number/area)Ordered By: Tate Marcial on 16-23-9539GKK Auto (Urine sed) [#/Area] 5-9 [HPF]0-4FAvita Health System Galion HospitalAutomated leukocytes count in urine sediment (number/area)Ordered By: Tate Marcial on 44-89-5611YNX Auto (Urine sed) [#/Area]10-19 [HPF]0-4FAvita Health System Galion HospitalBasophils Auto (Bld) [#/Vol]Ordered By: Tate Marcial on 33-68-0980Xgednpaxl (Bld) [#/Vol]0.1 10*3/uL 0.0-0.2FAvita Health System Galion HospitalBasophils/100 WBC Auto (Bld)Ordered By: Tate Marcial on 29-00-6215Fuywkvjbv/100 WBC (Bld)0.4 %.[facility] SystemBilirubin Test strip Ql (U)Ordered By: Tate Marcial on 90-17-6247Ixotbzonr Ql (U)NegativeNegativeMemorial Health SystemBilirubin.direct [Mass/volume] in Serum or PlasmaOrdered By: Tate Marcial on 05-16-2023 Bilirubin.direct [Mass/Vol]0.10 mg/dL0.03-0.18FA[facility] Bilirubin.total [Mass/volume] in Serum or PlasmaOrdered By: Tate Marcial on 35-49-6775Clkmohtby [Mass/Vol]0.4 mg/dL0.3-1.0[facility] COVID CepheidOrdered By: Tate Marcial on 08-38-9742RADQ-CoV-2 (COVID-19) Ab IA Ql NegativeNegativeMemorial Health SystemComment on above:This is a duplicate [employer] Xpert Xpress CoV-2/Flu/RSV Plus RNA by RT-PCR result to be used for statistical tracking purpose only.SARS-CoV-2 (COVID-19) RNA JUANA+probe Ql (Unsp spec)[facility] SystemCalcium [Mass/volume] in Serum or PlasmaOrdered By: Tate Marcial on 54-00-1691Jzbtjgu [Mass/Vol]8.8 mg/dL8.6-10.3 [facility] SystemCarbon dioxide, total [Moles/volume] in Serum or PlasmaOrdered By: Tate Marcial on 00-39-6797ZH7 [Moles/Vol]23.7 mmol/L 21.0-31.0[facility] SystemChloride [Moles/volume] in Serum or PlasmaOrdered By: Tate Marcial on 76-13-6580Dnnkuega [Moles/Vol]107 mmol/L98-107 [facility] SystemColor Auto (U)Ordered By: Tate Marcial on 43-82-1912Byxtm (U)YellowYellowMemorial Health SystemCreatinine [Mass/volume] in Serum or PlasmaOrdered By: Tate Marcial on 22-12-2837Lveerosgtn [Mass/Vol]0.67 mg/dL0.60-1.20[facility] SystemEosinophils Auto (Bld) [#/Vol]Ordered By: Tate Marcial on 29-18-1299Hayjhedbhli (Bld) [#/Vol]0.4 10*3/uL0.0-0.45[facility] SystemEosinophils/100 WBC Auto (Bld) Ordered By: Tate Marcial on 76-15-5459Jtjcfvicnxk/100 WBC (Bld)3.3 %.[facility] SystemErythrocyte distribution width Auto (RBC) [Ratio]Ordered By: Tate Marcial on 81-42-9840Jndkjoesaud distribution width (RBC) [Ratio]12.4 % 11.9-15.3FAvita Health System Galion HospitalGlobulin Calc (S) [Mass/Vol]Ordered By: Tate Marcial on 73-13-0083Qpdueyvm (S) [Mass/Vol]3.4 g/dLMemorial Health SystemGlucose [Mass/volume] in Serum or PlasmaOrdered By: Tate Marcial on 19-54-5998Wtlerqd [Mass/Vol]114 mg/uT00-780XcsfwujzqMemorial Health System Comment on above:ADA recommended reference rangeRandom Glucose Reference Range is dependent on time and content of last meal. Glucose of more than 200 mg/dL in a nonstressed, ambulatory subject supports the diagnosisof Diabetes Mellitus. HCG ( test) IA.rapid Ql (U)Ordered By: Tate Marcial on 54-39-1477GFM ( test) Ql (U)NegativeMemorial Health SystemHematocrit Auto (Bld) [Volume fraction]Ordered By: Tate Marcial on 80-01-1768Vozwkcjbzy (Bld) [Volume fraction]37.4 %34.0-46.4FAvita Health System Galion HospitalHemoglobin [Mass/volume] in BloodOrdered By: Tate Marcial on 60-97-9993Padqichpkl (Bld) [Mass/Vol]12.4 g/dL11.8-15.4FAvita Health System Galion HospitalKetones Auto test strip (U) [Mass/Vol]Ordered By: Tate Marcial on 73-70-0538Djojsdl (U) [Mass/Vol] NegativeNegativeMemorial Health SystemLaboratory - UrinalysisOrdered By: Tate Marcial on 01-47-9474Dcxorkt casts LM Ql (Urine sed)None seen [LPF]0-8 [facility] SystemLeukocytes [#/volume] corrected for nucleated erythrocytes in Blood by Automated counOrdered By: Tate Marcial on 28-07-7764NWR corrected for nucl RBC Auto (Bld) [#/Vol]13.0 10*3/uL3.8-11.6FAvita Health System Galion HospitalLipase [Enzymatic activity/volume] in Serum or PlasmaOrdered By: Tate Marcial on 52-04-3184Vcgzws [Catalytic activity/Vol]8.0 U/L11.0-82.0 [facility] SystemLymphocytes Auto (Bld) [#/Vol]Ordered By: Tate Marcial on 20-12-3595Bgpxvpqzuff (Bld) [#/Vol]1.8 10*3/uL1.00-4.8[facility] SystemLymphocytes/100 WBC Auto (Bld)Ordered By: Tate Marcial on 88-77-6637Qwpdyobwjwv/100 WBC (Bld)14.1 %.[facility] SystemMCH Auto (RBC) [Entitic mass]Ordered By: Tate Marcial on 13-69-4466PQM (RBC) [Entitic mass]29.2 pg24.7-34.3FAvita Health System Galion HospitalMCHC Auto (RBC) [Mass/Vol]Ordered By: Tate Marcial on 78-58-4563OXRQ (RBC) [Mass/Vol]33.1 g/dL 32.0-35.0[facility] SystemMCV Auto (RBC) [Entitic vol]Ordered By: Tate Marcial on 36-08-8160HOJ (RBC) [Entitic vol]88.3 zL25-760HyiaorarvMemorial Health SystemMonocyte distribution width [Entitic volume] in Blood by AutomatedOrdered By: Tate Marcial on 54-16-0985Xwanfpnr distribution width Auto (Bld) [Entitic vol]21.09 %0.00-20.00[facility] SystemComment on above:For adults in ED, MDW > 20.0 may be associated with a higher risk of sepsis during the first 12 hrs of hospital admissionMonocytes Auto (Bld) [#/Vol] Ordered By: Tate Marcial on 85-96-7266Bvfwpnpfz (Bld) [#/Vol]0.8 10*3/uL0.0-0.8 [facility] SystemMonocytes/100 WBC Auto (Bld)Ordered By: Tate Marcial on 56-06-7778Quchlktcp/100 WBC (Bld)6.0 %.[facility] SystemNeutrophils Auto (Bld) [#/Vol]Ordered By: Tate Marcial on 05-16-2023 Neutrophils (Bld) [#/Vol]9.9 10*3/uL1.8-7.7FAvita Health [facility] Neutrophils/100 WBC Auto (Bld)Ordered By: aTte Marcial on 05-16-2023 Neutrophils/100 WBC (Bld)76.2 %.[facility] SystemNitrite Test strip Ql (U)Ordered By: Tate Marcial on 63-40-8385Ghudskz Ql (U)NegativeNegative [facility] SystemNo Panel InformationOrdered By: Tate Marcial on 99-56-2925Xvpankddh GFR (CKD-EPI)> 60.0 mL/MinMemorial Health System Pharmacy Creatinine Clearance (Vxmy001.04[facility] Nucleated erythrocytes [Presence] in Blood by Automated countOrdered By: Tate Marcial on 07-27-6896Yyexlivuk RBC Auto Ql (Bld)0.1 /100{WBC}0-0.5FAvita Health System Galion HospitalPlatelet mean volume Auto (Bld) [Entitic vol]Ordered By: Tate Marcial on 30-97-6696Efuxdurr mean volume (Bld) [Entitic vol]7.3 fL6.3-10.7 [facility] SystemPlatelets Auto (Bld) [#/Vol]Ordered By: Tate Marcial on 83-09-6953Nzgcrcanw (Bld) [#/Vol]249 10*3/kW061-110JsbyghbrvMemorial Health SystemPotassium [Moles/volume] in Serum or PlasmaOrdered By: Tate Marcial on 93-09-2482Uktvzfzqw [Moles/Vol]3.7 mmol/L3.5-5.1FAvita Health System Galion HospitalProtein Auto test strip (U) [Mass/Vol]Ordered By: Tate Marcial on 12-78-5035Wqmrhyp (U) [Mass/Vol]NegativeNegativeMemorial Health SystemProtein [Mass/volume] in Serum or PlasmaOrdered By: Tate Marcial on 49-35-6050Uarmkkm [Mass/Vol]7.5 g/dL6.4-8.9[facility] SystemRBC Auto (Bld) [#/Vol]Ordered By: Tate Marcial on 13-98-8482LXT (Bld) [#/Vol]4.24 10*6/uL3.60-5.00[facility] Prebleerum or plasma albumin/globulin mass ratioOrdered By: Tate Marcial on 15-26-9016Ehscedw/Globulin [Mass ratio]1.2 {ratio}[facility] Prebleerum or plasma anion gap determinationOrdered By: Tate Marcial on 32-37-5947Xifoy gap [Moles/Vol]12.0 mmol/L6.0-15.0[facility] Prebleerum or plasma non- glucuronidated bilirubin measurement (mass/volume)Ordered By: Tate Marcial on 64-49-6181Axlhgouif.indirect [Mass/Vol]0.3 mg/dLKettering Health Prebleodium [Moles/volume] in Serum or PlasmaOrdered By: Tate Marcial on 65-13-4788Dsiosm [Moles/Vol]139 mmol/W789-055MsntxeozrMemorial Health System Specific gravity Auto test strip (U) [Rel density]Ordered By: Tate Marcial on 37-94-5695Jtpnmmmn gravity (U) [Rel density]> 1.0501.001-1.030[facility] Preblequamous epithelial cells detection in urine sediment by light microscopyOrdered By: Tate Marcial on 05-54-1893Eycwypobny cells.squamous LM Ql (Urine sed)5-9 [HPF]0-2FAvita Health System Galion HospitalUrea nitrogen [Mass/volume] in Serum or PlasmaOrdered By: Tate Marcial on 19-79-2351Fvar nitrogen [Mass/Vol]9 mg/dL7-25[facility] SystemUrine bacteria detection by automated methodOrdered By: Tate Marcial on 41-61-5838Jakzeetg Auto Ql (U)None seenNone SeenMemorial Health SystemUrine clarity by refractometry automatedOrdered By: Tate Marcial on 91-04-4553Ewuoafv Refractometry automated (U)ClearClearFAvita Health System Galion HospitalUrine glucose measurement by automated test strip (mass/volume)Ordered By: Tate Marcial on 95-49-0162Vefjroh Auto test strip (U) [Mass/Vol]Normal mg/dLNoKettering Health Washington TownshipUrine hemoglobin detection by automated test stripOrdered By: Tate Marcial on 68-84-1087Vidsbyzkwx Auto test strip Ql (U)1+Negative [facility] SystemUrine leukocyte esterase detection by automated test stripOrdered By: Tate Marcial on 44-63-8092Qlytvvonx esterase Auto test strip Ql (U)NegativeNegativeMemorial Health SystemUrobilinogen Auto test strip (U) [Mass/Vol]Ordered By: Tate Marcial on 51-80-7180Iprqunjjvwnt (U) [Mass/Vol]Normal mg/dLTriHealth McCullough-Hyde Memorial HospitalWBC Auto (Bld) [#/Vol]Ordered By: Tate Marcial on 39-15-1728GPZ (Bld) [#/Vol]13.0 10*3/uL 3.8-11.6FAvita Health System Galion HospitalpH Auto test strip (U)Ordered By: Tate Marcial on 93-81-5020hN (U)6.5 [pH]5.0-9.0[facility] Alanine aminotransferase [Enzymatic activity/volume] in Serum or PlasmaOrdered By: Elpidio Myles on 32-35-1701XIP [Catalytic activity/Vol]11 U/L7-52[facility] SystemAlbumin [Mass/volume] in Serum or Plasma by Bromocresol green (BCG) dye binding methoOrdered By: Elpidio Myles on 16-91-7773Jmdopqo BCG dye [Mass/Vol]4.2 g/dL3.5-5.7FAvita Health System Galion HospitalAlkaline phosphatase [Enzymatic activity/volume] in Serum or PlasmaOrdered By: Elpidio Myles on 86-41-9922ZCR [Catalytic activity/Vol]99 U/E31-499UjaaolhatMemorial Health SystemAspartate aminotransferase [Enzymatic activity/volume] in Serum or PlasmaOrdered By: Elpidio Myles on 15-02-8481NOS [Catalytic activity/Vol]12 U/L 13-39[facility] SystemAutomated erythrocytes count in urine sediment (number/area)Ordered By: Elpidio Myles on 88-25-0811WLC Auto (Urine sed) [#/Area]5-9 [HPF]0-4FAvita Health System Galion HospitalAutomated leukocytes count in urine sediment (number/area)Ordered By: Elpidio Myles on 81-50-0229ONW Auto (Urine sed) [#/Area]5-9 [HPF]0-4FAvita Health System Galion HospitalBasophils Auto (Bld) [#/Vol]Ordered By: Elpidio Myles on 22-78-9267Pygkwupoe (Bld) [#/Vol]0.1 10*3/uL0.0-0.2FAvita Health System Galion HospitalBasophils/100 WBC Auto (Bld) Ordered By: Elpidio Myles on 77-38-4521Asdyeylbs/100 WBC (Bld)0.6 %.[facility] SystemBilirubin Test strip Ql (U)Ordered By: Elpidio Myles on 32-18-7626Frmucxoci Ql (U)NegativeNegativeMemorial Health System Bilirubin.direct [Mass/volume] in Serum or PlasmaOrdered By: Elpidio Myles on 39-90-6259Nkoctnfgl.direct [Mass/Vol]0.10 mg/dL0.03-0.18FAvita Health System Galion HospitalBilirubin.total [Mass/volume] in Serum or PlasmaOrdered By: Elpidio Myles 75-69-2092Ejvwkmqrn [Mass/Vol]0.6 mg/dL0.3-1.0[facility] SystemCalcium [Mass/volume] in Serum or PlasmaOrdered By: Elpidio Myles 63-29-8174Nbqhpnb [Mass/Vol]9.0 mg/dL8.6-10.3FAvita Health System Galion HospitalCarbon dioxide, total [Moles/volume] in Serum or PlasmaOrdered By: Elpidio Myles 66-72-3871AJ4 [Moles/Vol]26.7 mmol/L21.0-31.0[facility] SystemChloride [Moles/volume] in Serum or PlasmaOrdered By: Elpidio Myles on 76-16-4920Udcnlglm [Moles/Vol]106 mmol/H14-671WrzenktqhMemorial Health System Color Auto (U)Ordered By: Elpidio Myles on 17-90-4752Pitcf (U)YellowYellow [facility] SystemCreatinine [Mass/volume] in Serum or Plasma Ordered By: Elpidio Myles on 38-78-7824Ravmxjtles [Mass/Vol]0.68 mg/dL0.60-1.20 [facility] SystemEosinophils Auto (Bld) [#/Vol]Ordered By: Elpidio Myles on 33-02-7049Hriwnoecxiw (Bld) [#/Vol]0.2 10*3/uL0.0-0.45[facility] SystemEosinophils/100 WBC Auto (Bld)Ordered By: Elpidio Myles on 80-15-9746Inetpgkxtck/100 WBC (Bld)1.7 %.[facility] Erythrocyte distribution width Auto (RBC) [Ratio]Ordered By: Elpidio Myles on 41-02-3605Hmwsflvcodb distribution width (RBC) [Ratio]12.5 %11.9-15.3FAvita Health System Galion HospitalGlobulin Calc (S) [Mass/Vol]Ordered By: Elpidio Myles on 14-61-6202Smkevqfw (S) [Mass/Vol]3.7 g/dLMemorial Health System Glucose [Mass/volume] in Serum or PlasmaOrdered By: Elpidio Myles on 05-12-2023 Glucose [Mass/Vol]86 mg/fF06-951GlimrlmdwMemorial Health SystemComment on above:ADA recommended reference rangeRandom Glucose Reference Range is dependent on time and content of last meal. Glucose of more than 200 mg/dL in a nonstressed, ambulatory subject supports the diagnosisof Diabetes Mellitus.HCG ( test) IA.rapid Ql (U)Ordered By: Elpidio Myles on 73-65-1189IXU ( test) Ql (U)NegativeMemorial Health SystemHematocrit Auto (Bld) [Volume fraction]Ordered By: Elpidio Myles on 58-12-9716Iolfdbvedb (Bld) [Volume fraction]39.5 %34.0-46.4FAvita Health System Galion HospitalHemoglobin [Mass/volume] in BloodOrdered By: Elpidio Myles on 25-60-3265Uamyftatex (Bld) [Mass/Vol]12.8 g/dL11.8-15.4FAvita Health System Galion HospitalKetones Auto test strip (U) [Mass/Vol]Ordered By: Elpidio Myles on 37-87-4604Stqyzua (U) [Mass/Vol] NegativeNegativeMemorial Health SystemLaboratory - UrinalysisOrdered By: Elpidio Myles on 11-36-9428Pzlmpco casts LM Ql (Urine sed)0-8 [LPF]0-8 [facility] SystemLeukocytes [#/volume] corrected for nucleated erythrocytes in Blood by Automated counOrdered By: Elpidio Myles on 25-70-4597YEU corrected for nucl RBC Auto (Bld) [#/Vol]13.1 10*3/uL3.8-11.6FAvita Health System Galion HospitalLipase [Enzymatic activity/volume] in Serum or PlasmaOrdered By: Elpidio Myles on 49-95-4606Dxxbmv [Catalytic activity/Vol]10.0 U/L11.0-82.0 [facility] SystemLymphocytes Auto (Bld) [#/Vol]Ordered By: Elpidio Myles on 13-12-6143Yhbeugqtnfn (Bld) [#/Vol]2.9 10*3/uL1.00-4.8[facility] Health SystemLymphocytes/100 WBC Auto (Bld)Ordered By: Elpidio Myles on 50-19-1002Tjumtrcxrna/100 WBC (Bld)21.8 %.[facility] Auto (RBC) [Entitic mass]Ordered By: Elpidio Myles on 54-73-4469PCO (RBC) [Entitic mass]28.9 pg24.7-34.3FAvita Health System Galion HospitalMCHC Auto (RBC) [Mass/Vol]Ordered By: Elpidio Myles on 24-00-2287KWAV (RBC) [Mass/Vol]32.5 g/dL 32.0-35.0[facility] SystemMCV Auto (RBC) [Entitic vol]Ordered By: Elpidio Myles on 13-85-3930UKL (RBC) [Entitic vol]88.7 jW93-109ObnnhceluMemorial Health SystemMonocyte distribution width [Entitic volume] in Blood by AutomatedOrdered By: Elpidio Myles on 73-58-2082Erczyiwh distribution width Auto (Bld) [Entitic vol]18.29 %0.00-20.00[facility] Health SystemMonocytes Auto (Bld) [#/Vol]Ordered By: Elpidio Myles on 66-22-9993Awduwpeoj (Bld) [#/Vol] 0.8 10*3/uL0.0-0.8[facility] Health SystemMonocytes/100 WBC Auto (Bld) Ordered By: Elpidio Myles on 18-95-1880Zrhgsmjqo/100 WBC (Bld)6.1 %.[facility] Health SystemNeutrophils Auto (Bld) [#/Vol]Ordered By: Elpidio Myles on 65-40-0596Prxikqzdbdc (Bld) [#/Vol]9.1 10*3/uL1.8-7.7FAvita Health System Galion HospitalNeutrophils/100 WBC Auto (Bld)Ordered By: Elpidio Myles on 05-12-2023 Neutrophils/100 WBC (Bld)69.8 %.[facility] Health SystemNitrite Test strip Ql (U)Ordered By: Elpidio Myles on 39-09-9189Jmfpfqq Ql (U)NegativeNegative [facility] Health SystemNo Panel InformationOrdered By: Elpidio Myles on 35-02-4739Agpskxktx GFR (CKD-EPI)> 60.0 mL/MinMemorial Health System Pharmacy Creatinine Clearance (Dbtn878.96[facility] Nucleated erythrocytes [Presence] in Blood by Automated countOrdered By: Elpidio Myles on 75-15-1705Aadtkdcic RBC Auto Ql (Bld)0.1 /100{WBC}0-0.5FAvita Health System Galion HospitalPlatelet mean volume Auto (Bld) [Entitic vol]Ordered By: Elpidio Myles on 90-48-9570Kbzflcvd mean volume (Bld) [Entitic vol]7.4 fL6.3-10.7 [facility] Health SystemPlatelets Auto (Bld) [#/Vol]Ordered By: Elpidio Myles on 15-48-0978Lfagtmtmv (Bld) [#/Vol]254 10*3/zQ472-568FeatfiqanMemorial Health SystemPotassium [Moles/volume] in Serum or PlasmaOrdered By: Elpidio Myles on 73-17-5449Pzzoagfin [Moles/Vol]4.2 mmol/L3.5-5.1FAvita Health System Galion HospitalProtein Auto test strip (U) [Mass/Vol]Ordered By: Elpidio Myles on 40-51-7859Xczgcjw (U) [Mass/Vol]NegativeNegativeMemorial Health SystemProtein [Mass/volume] in Serum or PlasmaOrdered By: Elpidio Myles on 50-86-6862Isjtaie [Mass/Vol]7.9 g/dL6.4-8.9[facility] Health SystemRBC Auto (Bld) [#/Vol]Ordered By: Elpidio Myles on 85-46-9934RCD (Bld) [#/Vol]4.45 10*6/uL3.60-5.00[facility] Prebleerum or plasma albumin/globulin mass ratioOrdered By: Elpidio Myles on 05-12-2023 Albumin/Globulin [Mass ratio]1.1 {ratio}[facility] Prebleerum or plasma anion gap determinationOrdered By: Elpidio yMles on 30-95-7767Oalgc gap [Moles/Vol]See comment6.0-15.0[facility] Health SystemComment on above: Specimen hemolyzed, redraw requestedSerum or plasma non-glucuronidated bilirubin measurement (mass/volume)Ordered By: Elpidio Myles on 05-12-2023 Bilirubin.indirect [Mass/Vol]See commentMemorial Health SystemComment on above:Specimen hemolyzed, redraw requestedSodium [Moles/volume] in Serum or PlasmaOrdered By: Elpidio Myles on 41-96-6667Yrrkzq [Moles/Vol]139 mmol/B903-725 [facility] Preblepecific gravity Auto test strip (U) [Rel density]Ordered By: Elpidio Myles on 66-03-0112Zajgenot gravity (U) [Rel density] 1.0111.001-1.030[facility] Preblequamous epithelial cells detection in urine sediment by light microscopyOrdered By: Elpidio Myles on 14-37-1581Sqvwoqtfyv cells.squamous LM Ql (Urine sed)5-9 [HPF]0-2FAvita Health System Galion HospitalUrea nitrogen [Mass/volume] in Serum or PlasmaOrdered By: Elpidio Myles on 41-47-2121Kagq nitrogen [Mass/Vol]12 mg/dL7-25Memorial Health SystemUrine bacteria detection by automated methodOrdered By: Elpidio Myles on 17-58-9444Gdwltmwl Auto Ql (U)None seenNone SeenMemorial Health SystemUrine clarity by refractometry automatedOrdered By: Elpidio Myles on 45-75-5918Vsyebsh Refractometry automated (U)ClearCleOhioHealth Dublin Methodist HospitalUrine culture routineOrdered By: Elpidio Myles on 99-94-2417Teoinrvf identified Cx Nom (U)2 DaysMemorial Health System Urine glucose measurement by automated test strip (mass/volume)Ordered By: Elpidio Myles on 75-11-5455Apexvuf Auto test strip (U) [Mass/Vol]Normal mg/dL NormalMemorial Health SystemUrine hemoglobin detection by automated test stripOrdered By: Elpidio Myles on 38-26-4638Mytfmernnu Auto test strip Ql (U)TraceNegativeMemorial Health SystemUrine leukocyte esterase detection by automated test stripOrdered By: Elpidio Myles on 10-76-4807Ouilibngc esterase Auto test strip Ql (U)1+NegativeMemorial Health System Urobilinogen Auto test strip (U) [Mass/Vol]Ordered By: Elpidio Myles on 08-88-6998Rswfnzzvjiqm (U) [Mass/Vol]Normal mg/dLNormalMemorial Health SystemWBC Auto (Bld) [#/Vol]Ordered By: Elpidio Myles on 96-33-7354APB (Bld) [#/Vol]13.1 10*3/uL3.8-11.6FAvita Health System Galion HospitalpH Auto test strip (U)Ordered By: Elpidio Myles on 29-66-9402dT (U)7.5 [pH]5.0-9.0Mem[facility] Health SystemMR CERVICAL SPINE WO CONTRASTon 53-28-3949GV CERVICAL SPINE WO CONTRASTEXAMINATION: MR CERVICAL SPINE WO CONTRAST HISTORY: Cervical [...] disc bulge. Endplate osteophytes. Facet/uncovertebral degenerative changes. Mildcanal narrowing with moderate bilateral foraminal narrowing. C6-C7: Tiny disc bulge. Endplate osteophytes. Facet degenerative changes. No significant canal or foraminal narrowing. C7-T1: No significant canal or foraminal narrowing. Upper thoracic spine: Visualized upper thoracic canal and foramina are without significant narrowing. IMPRESSION: Degenerative changes cervical spine especially involving C5-C6. ELECTRONICALLY SIGNED BY: Giselle Sant[facility] LOWER EXTREMITY VENOUS DUPLEX RIGHTon 53-71-7878YPEF US LOWER EXTREMITY VENOUS DUPLEX RIGHTEXAM: [facility] LOWER EXTREMITY VENOUS DUPLEX RIGHT TECHNIQUE: RIGHT [...] the right lower extremity. ELECTRONICALLY SIGNED BY: David Newsome AvailableConsent for Treatmenton 33-32-6490Qwkhsbb for Treatment [id number]#1.00TIFFPremier HealthDischarge Instructionson 71-86-3777Hdttvprhv Instructions [id number]#1.00TIFFNormalHerb [facility] ED Clinical Summaryon 15-77-9263PZ Clinical Summary [address] [address] ED Clinical Summary Person Information Name: TRACIE SAMUELS [place] Age: 32 Years : 1990 Sex: Female Language: Bangladeshi PCP: KATLIN FERNANDEZ DO Marital Status: Single [...] 01/26/2023 17:23:16 01/26/2023 17:23:16 01/26/2023 17:23:16 ADDRESS: [address] [place] [address] [address] [facility] [phone] PHYS DOC NOTES: MEDICAL INFORMATION: Prescriptions Given: [...] 3 Milliliter Nebulized inhalation (aerosol) every 6 hoursas needed Shortness of breath or wheezing. albuterol [...] Pain Follow up: With: Address: When: KATLIN WICK [place] [employer] (1) In 3 days 01/29/2023 DIAGNOSIS: Right shoulder painNormalFisher Wyatt Medical CenterED Note-Physicianon 64-80-6355FO Note-PhysicianBasic Information Time Seen: Jass Meek DO 01/26/2023 [...] previously. She states she has not taken pzgd-gjq-mrhuwky Motrin. No new injuries. Noacute weakness or paresthesias. No chest pain or [...] Information KATLIN FERNANDEZ In 3 days 01/29/2023 [place], [place] Business (1) Additional Instructions: Patient Education Shoulder Pain Attestation Patient seen and evaluated by the physician religious assistant. Attending physician was present in the emergency department and supervised care. This visit was performed by both the physician and an APC. I performed all aspects of the MDM as documented. This report was transcribed using voice recognition software. Every effort was made to ensure accuracy, however, inadvertently computerized veterinarian mistakes may be present. Appropriate healthcare PPE [...] stone Seizure Procedure/Surgical History section, Cholecystectomy, EGD (esophagogastroduodenoscopy) gastric outlet reduction, Tuballigation. Medications Inpatient No active inpatient medications Home [...] 5 mg-325 mg oral (more content not included)...Premier HealthComment on above:Result Comment: Electronically Signed By: Jax Lassiter PA-C\.br\Date and Time Signed: 01/26/2317:45 EST\.br\Electronically Co-Signed By: Jass Meek DO\.br\Date and Time Co- Signed: 01/26/2318:19 MARIED Patient Education Noteon 69-82-8536AX Patient Education NoteOrthopedics Shoulder Pain Many things can cause shoulder [...] strengthen the arm. General instructions ? Take lqyc-gtk-jwxfrkw and prescription medicines only as told by [...] provider. Document Revised: 10/28/2021 Document Reviewed: 10/28/2021 ElsePHRQL Patient Education ? 2022 [email or web address] ED Patient Summaryon 79-11-1665UF Patient Summary [place] [id number] Patient Discharge Instructions Person Information Name: TRACIE SAMUELS Age: 32 Years Arrival Date: 01/26/2023 16:22:11 Discharge Diagnosis: Right shoulder pain Primary Care Physician: KATLIN FERNANDEZ DO Provider Information Primary Provider: Jass Meek DO Advanced Sanding Line Operator:Jax Lassiter PA-C The exam and treatment you received in the Emergency Department were for an urgent problem and are not intended as complete care. It is important that you follow up with a doctor, nurse practitioner,or physician?s religious assistant for ongoing care. If your symptoms [...] Follow-up Instructions: With: Address: When: KATLIN FERNANDEZ [place], [place] [facility] (1) In 3 days 01/29/2023 In the event that this physician does not participate in your insurance network, please consult with your insurance company to find a nearby participating provider. Patient Education Materials: Shoulder Pain A MESSAGE TO ALL PATIENTS REGARDING OPIOIDS PRESCRIPTION OPIOIDS: WHAT YOU NEED TO KNOW Prescription opioids can be used to help relieve eveqeood-yf-sfewac pain and are often prescribed following a [...] and have fewer risks and side effects. Optionsmay include: ? Pain relievers such as acetaminophen, [...] unused prescription opioids: Find your community drug take- back program or yourpharmacy mail-back program, or flush them down the toilet, following guidance from the Food and Drug Administration (www.fda.gov/Drugs/ResourcesForYou). ? Visit www.cdc.gov/drugoverdose to learn about the risks of opioids abuse and overdose. ? If you believe you may be struggling with addiction, tell your health respiratory care assistant and ask for guidance or call [employer]?S National Helpline at 6-129-770-HELP. v Source: US Department of Health and Human Ser (more content not included)... [facility] CenterED Note-Physicianon 80-67-9644EW Note-Physician Basic Information Time Seen: Klaudia POWER Sushila BreenCheryl 01/21/2023 15:49 Chief Complaint pt c\o R upper arm and shoulder pain x5 days after falling off step stool History of Present Illness Patient is a 32-year-old female with history of asthma, ADHD, T2DM, bipolar that presents to the EDwith female family member for evaluation of right shoulder pain x5 days. Patient states that 5 daysago she was moving a TV and she stretched wrong causing right shoulder pain. She said 3 days ago she was trying to get chemicals off the top of her refrigerator and fell causing her to bump her rightshoulder onto the corner of the counter. Since then pain is gotten progressively worse. She rates pain 10/10. It is aggravated by movement and touch. Localizes it to right shoulder over humeral head.She took 400 mg of ibuprofen at 10 [...] head. No ecchymosis, erythema nor edema. 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 No pain with isolated passive ROM [...] needed for pain, 6 tab(s), Refill(s) 0, [facility] [address], 149, cm, 01/21/23 13:50:00 EST, Height/Length [...] ORT In 3 days 01/24/2023 EST [address] [place] [address]- Additional Instructions: Additional Instructions: Call the office of your primary care doctor to arrange for follow-up within the above-stated timeframe. Follow-up with your primary care doctor aboutthis ED visit. You should review your labs, imaging, and diagnoses from this ED visit with your primary care physician. If you were prescribed medications you should discuss possible side- effects anddrug interactions with your pharmacist. Call 911 or go to the nearest Emergency Department if you develop (more content not included)...Premier HealthComment on above:Result Comment: Electronically Signed By: Sushila Rudolph PA-C\.br\Date and Time Signed: 01/21/23 16:30 EST\.br\Electronically Co-Signed By: Juan Antonio Hooper MD\.br\Date and Time Co-Signed: 01/25/23 20:56 ESTConsent for Treatmenton 17-30-5939Kkotszw for Treatment [id number]#1.00[facility] HospitalDischarge Instructionson 98-10-2191Hntrmvrub Instructions [id number] Health Perrysburg Hospital Clinical Summaryon 50-04-1363KU Clinical Summary [facility] [address] [place], [place] [address] ED Clinical Summary Person Information Name: TRACIE SAMUELS [place] Age: 32 Years : 1990 Sex: Female Language: Bangladeshi PCP: KATLIN FERNANDEZ DO Marital Status: Single [...] 01/21/2023 16:41:20 01/21/2023 16:41:20 01/21/2023 16:41:20 ADDRESS: [address] [place] [address] [address] [facility] [phone] PHYS DOC NOTES: MEDICAL INFORMATION: Prescriptions Given: Medications to Continue Taking That Have Changed [facility] [address], [address] [place], [place] [id number], [phone] START: acetaminophen-oxycodone (Percocet 5 mg-325 mg oral tablet) 1 Tablets By Mouth every 6 hours as needed as needed for pain. Refills: 0. Other Medications START: acetaminophen-oxycodone (Percocet 5 mg-325 mg oral tablet) 1 Tablets By Mouth every 6 hours.Refills: 0. Medications to Continue with No Changes Other Medications albuterol (albuterol 0.083% Inh Claire 3 mL UD) 3 Milliliter Inhalation every 6 hours. Refills: 0. albuterol (albuterol 0.083% Inh Claire 3 mL) 3 Milliliter Nebulized inhalation (aerosol) every 6 hoursas needed Shortness of breath or wheezing. albuterol [...] as needed for nausea/vomitin (more content not included)...NormalFisher Wyatt Medical CenterED Patient Education Noteon [id number] Patient Education Note Orthopedics Shoulder Pain Many [...] possible. This prevents swelling in the shoulder. Italso helps to strengthen the arm. General instructions ? Take kizk-zju-qnoxcev and prescription medicines only as told by [...] include injury, moving the shoulder in the sameaway again and again, and joint pain. ? Watch for changes in your symptoms. Let your doctor know about them. ? This condition may be treated with a sling, ice, and pain medicine. ? Contact your doctor if the pain gets worse or you have new pain. Get help right away if your arm,hand, or fingers tingle or get numb, swollen, or painful. ? Keep all follow-up visits as told by your doctor. This is important. This information is not intended to replace advice given to you by your health care provider. Make sure you discuss any questions you have with your health care provider. Document Revised: 10/28/2021 Document Reviewed: 10/28/2021 Elsevier Patient Education ? 2022 [email or web address].[facility] ED Patient Summaryon 65-38-1075VD Patient Summary [facility] [address], [place] [address] Patient Discharge Instructions Person Information Name: TRACIE SAMUELS Age: 32 Years Arrival Date: 01/21/2023 13:24:05 Discharge Diagnosis: 1:Pain in right shoulder Primary Care Physician: KATLIN FERNANDEZ DO Provider Information Primary Provider: Advanced Sanding Line Operator:Sushila Rudolph PA-C The exam and treatment you received in the Emergency Department were for an urgent problem and are not intended as complete care. It is important that you follow up with a doctor, nurse practitioner,or physician?s religious assistant for ongoing care. If your symptoms [...] Address: When: Roya Rosario DO, ORT [address] [place] [address] In 3 days 01/24/2023 In the event that this physician does not participate in your insurance network, please consult with your insurance company to find a nearby participating provider. Patient Education Materials: Shoulder Pain, Bfjb-rv-Fgjk A MESSAGE TO ALL PATIENTS REGARDING OPIOIDS PRESCRIPTION OPIOIDS: WHAT YOU NEED TO KNOW Prescription opioids can be used to help relieve roombmuq-zm-esapfe pain and are often prescribed following a [...] and have fewer risks and side effects. Optionsmay include: ? Pain relievers such as acetaminophen, [...] unused prescription opioids: Find your community drug take- back program or yourpharmacy mail-back program, or flush them down the toilet, following guidance from the Food and Drug Administration (www.fda.gov/Drugs/ResourcesForYou). ? Visit www.cdc.gov/drugoverdose to learn about the risks of opioids abuse and overdose. ? If you believe you may be struggling with addiction, tell your health respiratory care assistant and ask for guidance or call [facility]S National Helpline at 3-821-236-VGST. l Source: [employer] Department (more content not included)...Premier HealthPrescriptions/Work Noteson 22-20-3010Zttsgkjgzknrl/Work Notes [id number]#1.00TIFFNoGalion Community HospitalXR Shoulder Complete Righton 87-01-4569DS Shoulder Complete RightExam Date/Time: 01/21/2023 14:10 EST Reason for Exam: [...] FATIMAH Technologist: ISIDRA Technical Comments Radiation Dose: Kajulito in mGy = na DAP = naNorUniversity Hospitals Cleveland Medical CenterCHEMISTRYOrdered By: SYSTEM SYSTEM on 04-37-0725Jivybao [Mass/Vol]4.2 g/dLNormal3.3 - 5.0 gm/dLFTMC Remisol Albumin/Globulin [Mass ratio]1.0 {ratio}Low1.1 - 2.2FT[facility] RemisolALP [Catalytic activity/Vol]93 [iU]/nWcaqgv54 - 98 Int._Unit/LFTMC RemisolALT No additional P-5'-P [Catalytic activity/Vol]25 [iU]/dNormal6 - 46 Int._Unit/LFTMC Remisol Anion gap [Moles/Vol]16 mmol/LNormal6 - 16 mEq/LFTMC RemisolAST [Catalytic activity/Vol]24 [iU]/dNormal5 - 43 Int._Unit/LFTMC RemisolBilirubin [Mass/Vol] 0.6 mg/dLNormal0.0 - 1.1 mg/dLFTMC RemisolCalcium [Mass/Vol]9.2 mg/dLNormal8.9 - 11.1 mg/dLFTMC RemisolChloride [Moles/Vol]104 mmol/MSctnhp747 - 111 mmol/LFTMC RemisolCO2 [Moles/Vol]20 mmol/LLow21 - 31 mmol/LFTMC RemisolCreatinine [Mass/Vol]0.8 mg/dLNormal0.5 - 1.3 mg/dLFTMC RemisolGFR/1.73 sq M.predicted among non-blacks MDRD (S/P/Bld) [Vol rate/Area]99 mL/min/1.73 s0Vzqadw >=59mL/min/1.73 m2FTMC Chem SGlobulin (S) [Mass/Vol]4.2 g/dLHigh1.4 - 4.0 gm/dL [facility] RemisolGlucose [Mass/Vol]92 mg/aGOhkboy87 - 199 mg/dLFTMC RemisolLipase [Catalytic activity/Vol]22 U/ZBiutpo26 - 58 unit/LFTMC RemisolPotassium [Moles/Vol]3.4 mmol/LLow3.5 - 5.3 mmol/LFTMC RemisolProtein [Mass/Vol]8.4 g/dL High6.0 - 7.8 gm/dLFTMC RemisolSodium [Moles/Vol]137 mmol/YVuhlkv469 - 145 mmol/LFTMC RemisolUrea nitrogen [Mass/Vol]10 mg/dLNormal5 - 21 mg/dLFTMC Remisol Urea nitrogen/Creatinine [Mass ratio]12 mg/flQbacfp46 - 20FTMC RemisolHEMATOLOGY Ordered By: SYSTEM SYSTEM on 73-10-0144Nuummzlic/100 WBC (Bld)0.6 %Normal0.0 - 2.0 %[facility] HemeAutoSSBasophils/Leukocytes Auto (Bld) [Pure # fraction]0.0 E9/L Normal0.0 - 0.2 E9/LFTMC HemeAutoSSEosinophils/100 WBC (Bld)0.3 %Normal0.0 - 8.0 %[facility] HemeAutoSSEosinophils/Leukocytes Auto (Bld) [Pure # fraction]0.0 E9/L Normal0.0 - 0.5 E9/LFTMC HemeAutoSSLymphocytes/100 WBC (Bld)24.7 %Udecfx17.0 - 50.0 %[facility] HemeAutoSSLymphocytes/Leukocytes Auto (Bld) [Pure # fraction]1.5 E9/L Normal1.0 - 4.0 E9/LFTMC HemeAutoSSMonocytes/100 WBC (Bld)14.1 %High4.0 - 14.0 % [facility] HemeAutoSSMonocytes/Leukocytes Auto (Bld) [Pure # fraction]0.8 E9/LNormal 0.2 - 1.0 E9/LFTMC HemeAutoSSNeutrophils/100 WBC (Bld)60.3 %Zcmznd51.0 - 75.0 % [facility] HemeAutoSSNeutrophils/Leukocytes Auto (Bld) [Pure # fraction]3.6 E9/LNormal 2.0 - 7.5 E9/LFTMC HemeAutoSSHEMATOLOGYOrdered By: Sanju Escobedo on 04-17-2008Igqherqdgpl distribution width (RBC) [Ratio]13.0 %Uriove52.9 - 14.2 % [facility] HemeAutoSSHematocrit (Bld) [Volume fraction]39.5 %Lbanff16.0 - 46.0 %[facility] HemeAutoSSHemoglobin (Bld) [Mass/Vol]13.3 g/dVSbonfi32.0 - 16.0 gm/dLFTMC HemeAutoSSMCH (RBC) [Entitic mass]29.2 vsPfzbxb84.0 - 34.0 pgFTMC HemeAutoSSMCHC (RBC) [Mass/Vol]33.7 g/xQBnautp34.4 - 36.0 gm/dLFTMC HemeAutoSSMCV (RBC) [Entitic vol]86.9 tDBoxqee37.0 - 100.0 fLWEATHERFORD REGIONAL HOSPITAL – [place] HemeAutoSSPlatelet mean volume (Bld) [Entitic vol]7.5 fLNormal6.4 - 10.8 fLFT HemeAutoSSPlatelets (Bld) [#/Vol]229.0 E9/DFwnwff069.0 - 500.0 E9/LFTMC HemeAutoSSRBC (Bld) [#/Vol]4.6 E12/LNormal4.3 - 5.9 E12/LFTMC HemeAutoSSWBC corrected for nucl RBC Auto (Bld) [#/Vol]6.0 E9/LNormal4.0 - 11.0 E9/LFTMC HemeAutoSSSEROLOGYOrdered By: Sanju Escobedo on 14-60-2968Mkic hCG QlNegative (08/25/22 7:09 PM)NormalWEATHERFORD REGIONAL HOSPITAL – [facility]ER[facility] Man XkkqY6Z HEMOGLOBINon 81-14-2455RgF2t (Bld) [Mass fraction]5.3 %[facility] [employer] Other COVID + FLU Quick Testingon 89-04-9626CMZS-CoV-2 (COVID-19) RNA JUANA+probe Ql (Unsp spec)NegativePlaistow [employer] Other COVID + FLU Quick TestingNegativePlaistow [employer] Other Quick Strepon 04-11-2022S. pyogenes Org specific cx Ql (Throat)NegativePlaistow [employer] Other quick [employer] Other CHEMISTRYOrdered By: SYSTEM SYSTEM on 03-10-2022 Acetaminophen [Mass/Vol]microgram/mLLow15 - 30 mcg/mLFTMC RemisolAlbumin [Mass/Vol]4.2 g/dLNormal3.3 - 5.0 gm/dLFTMC RemisolAlbumin/Globulin [Mass ratio] 1.0 {ratio}Low1.1 - 2.2FT[facility] RemisolALP [Catalytic activity/Vol]111 [iU]/dHigh21 - 98 Int._Unit/LFTMC RemisolALT No additional P-5'-P [Catalytic activity/Vol]24 [iU]/dNormal6 - 46 Int._Unit/LFTMC RemisolAnion gap [Moles/Vol]9 mmol/LNormal6 - 16 mEq/LFTMC RemisolAST [Catalytic activity/Vol]22 [iU]/dNormal5 - 43 Int._Unit/LFTMC RemisolBilirubin [Mass/Vol]0.6 mg/dLNormal0.0 - 1.1 mg/dLFTMC RemisolCalcium [Mass/Vol]8.8 mg/dLLow8.9 - 11.1 mg/dLFTMC RemisolChloride [Moles/Vol]105 mmol/TLttbid733 - 111 mmol/LFTMC RemisolCO2 [Moles/Vol]24 mmol/L Nwxfjm95 - 31 mmol/LFTMC RemisolCreatinine [Mass/Vol]0.8 mg/dLNormal0.5 - 1.3 mg/dLFTMC RemisolEthanol [Mass/Vol]mg/dLNormal<=7mg/dLFTMC RemisolGFR/1.73 sq M.predicted among blacks MDRD (S/P/Bld) [Vol rate/Area]mL/min/1.73 x9Evbybc >=59mL/min/1.73 m2[facility] Chem SGFR/1.73 sq M.predicted among non-blacks MDRD (S/P/Bld) [Vol rate/Area]mL/min/1.73 a2Soplaw>=59mL/min/1.73 m2[facility] Chem S Globulin (S) [Mass/Vol]4.3 g/dLHigh1.4 - 4.0 gm/dLFTMC RemisolGlucose [Mass/Vol] 106 mg/eVIezyud88 - 199 mg/dLFTMC RemisolPotassium [Moles/Vol]3.6 mmol/LNormal 3.5 - 5.3 mmol/LFTMC RemisolProtein [Mass/Vol]8.5 g/dLHigh6.0 - 7.8 gm/dLFTMC RemisolSalicylates [Mass/Vol]mg/dLLow6 - 29 mg/dLFTMC RemisolSodium [Moles/Vol] 134 mmol/CMau852 - 145 mmol/LFTMC RemisolUrea nitrogen [Mass/Vol]12 mg/dLNormal5 - 21 mg/dLFTMC RemisolUrea nitrogen/Creatinine [Mass ratio]15 mg/ghNmrsyr81 - 20FT[facility] RemisolAmphetamines Screen method >1000 ng/mL Ql (U)Negative (03/10/22 8:40 PM)NormalNegativeFTMC RemisolBarbiturates Screen Ql (U)Negative (03/10/22 8:40 PM)NormalNegativeFTMC RemisolBenzodiazepines Ql (U)Negative (03/10/22 8:40 PM)NormalNegativeFTMC RemisolCocaine Ql (U)Negative (03/10/22 8:40 PM)NormalNegativeFTMC RemisolOpiates Screen Ql (U)Negative (03/10/22 8:40 PM)NormalNegativeFTMC RemisolPhencyclidine Screen method >25 ng/mL Ql (U)Negative (03/10/22 8:40 PM)NormalNegativeFTMC RemisolTetrahydrocannabinol Screen method >50 ng/mL Ql (U)Positive 1 *ABN* (03/10/22 8:40 PM)Invalid Interpretation CodeNegativeFTMC RemisolComment on above:Result Comment: Critical Result verified by repeat analysis\Critical Result UD_THC:POS Called to SAE MARTIN AT ER by LUCILLE ARANA And Read Back For Confirmation at: 03/10/2022 21:29:59HEMATOLOGYOrdered By: SYSTEM SYSTEM on 96-59-8022Jeilanrjv/100 WBC (Bld)0.8 %Normal0.0 - 2.0 %[facility] HemeAutoSS Basophils/Leukocytes Auto (Bld) [Pure # fraction]0.1 E9/LNormal0.0 - 0.2 E9/L [facility] HemeAutoSSEosinophils/100 WBC (Bld)0.6 %Normal0.0 - 8.0 %[facility] HemeAutoSS Eosinophils/Leukocytes Auto (Bld) [Pure # fraction]0.1 E9/LNormal0.0 - 0.5 E9/L [facility] HemeAutoSSLymphocytes/100 WBC (Bld)16.0 %Emcden90.0 - 50.0 %[facility] HemeAutoSS Lymphocytes/Leukocytes Auto (Bld) [Pure # fraction]2.2 E9/LNormal1.0 - 4.0 E9/L [facility] HemeAutoSSMonocytes/100 WBC (Bld)3.8 %Low4.0 - 14.0 %[facility] HemeAutoSS Monocytes/Leukocytes Auto (Bld) [Pure # fraction]0.5 E9/LNormal0.2 - 1.0 E9/L [facility] HemeAutoSSNeutrophils/100 WBC (Bld)78.8 %High36.0 - 75.0 %[facility] HemeAutoSS Neutrophils/Leukocytes Auto (Bld) [Pure # fraction]11.0 E9/LHigh2.0 - 7.5 E9/L [facility] HemeAutoSSHEMATOLOGYOrdered By: Lucille Arana on 35-26-8567Hnrpbfnfsmb distribution width (RBC) [Ratio]13.0 %Fjzual80.9 - 14.2 %[facility] HemeAutoSS Hematocrit (Bld) [Volume fraction]40.5 %Oyevpl30.0 - 46.0 %[facility] HemeAutoSS Hemoglobin (Bld) [Mass/Vol]13.1 g/lZFtajkg67.0 - 16.0 gm/dLFTMC HemeAutoSSMCH (RBC) [Entitic mass]29.0 yhLlcxku08.0 - 34.0 pgFTMC HemeAutoSSMCHC (RBC) [Mass/Vol]32.4 g/pGCirtkt26.4 - 36.0 gm/dLFTMC HemeAutoSSMCV (RBC) [Entitic vol] 89.6 iRIvghru08.0 - 100.0 fLFTMC HemeAutoSSPlatelet mean volume (Bld) [Entitic vol]7.2 fLNormal6.4 - 10.8 fLFTMC HemeAutoSSPlatelets (Bld) [#/Vol]298.0 E9/L Nndzgn659.0 - 500.0 E9/LFT[facility] HemeAutoSSRBC (Bld) [#/Vol]4.5 E12/LNormal4.3 - 5.9 E12/LFT[facility] HemeAutoSSWBC corrected for nucl RBC Auto (Bld) [#/Vol]13.9 E9/LHigh 4.0 - 11.0 E9/LFT[facility] HemeAutoSSSEROLOGYOrdered By: Pedro Pablo Montero on 79-62-8298Wcnz hCG QlNegative (03/10/22 9:06 PM)NormalFTMC Man SeroCHEMISTRYOrdered By: SYSTEM SYSTEM on 96-01-1731Xztrehu [Mass/Vol]3.8 g/dLNormal3.3 - 5.0 gm/dLFT[facility] Remisol Albumin/Globulin [Mass ratio]1.1 {ratio}Normal1.1 - 2.2[facility] RemisolALP [Catalytic activity/Vol]101 [iU]/dHigh21 - 98 Int._Unit/LFT[facility] RemisolALT No additional P-5'-P [Catalytic activity/Vol]40 [iU]/dNormal6 - 46 Int._Unit/LFT[facility] RemisolAnion gap [Moles/Vol]12 mmol/LNormal6 - 16 mEq/L[facility] RemisolAST [Catalytic activity/Vol]29 [iU]/dNormal5 - 43 Int._Unit/L[facility] RemisolBilirubin [Mass/Vol]0.3 mg/dLNormal0.0 - 1.1 mg/dLFTMC RemisolBilirubin.direct [Mass/Vol] mg/dLNormal0.1 - 0.4 mg/dLFTMC RemisolBilirubin.indirect [Mass or moles/Vol] Unable to Calculate mg/dLInvalid Interpretation Code0.1 - 0.9 mg/dLFT[facility] Remisol Calcium [Mass/Vol]8.9 mg/dLNormal8.9 - 11.1 mg/dLFT[facility] RemisolChloride [Moles/Vol]105 mmol/XPgimht519 - 111 mmol/LFT[facility] RemisolCO2 [Moles/Vol]24 mmol/L Dcwaqq56 - 31 mmol/LFT[facility] RemisolCreatinine [Mass/Vol]0.7 mg/dLNormal0.5 - 1.3 mg/dLFT[facility] RemisolGFR/1.73 sq M.predicted among blacks MDRD (S/P/Bld) [Vol rate/Area]mL/min/1.73 o6Sbzboj>=59mL/min/1.73 m2[facility] Chem SGFR/1.73 sq M.predicted among non-blacks MDRD (S/P/Bld) [Vol rate/Area]mL/min/1.73 a1Nwjkuv >=59mL/min/1.73 m2[facility] Chem SGlobulin (S) [Mass/Vol]3.6 g/dLNormal1.4 - 4.0 gm/dLFT[facility] RemisolGlucose [Mass/Vol]96 mg/tFZnkhmk47 - 199 mg/dLFT[facility] Remisol Lipase [Catalytic activity/Vol]34 U/GVchchf13 - 58 unit/LFT[facility] RemisolMagnesium [Mass/Vol]1.9 mg/dLNormal1.3 - 2.4 mg/dLFT[facility] RemisolPotassium [Moles/Vol]3.6 mmol/LNormal3.5 - 5.3 mmol/LFT[facility] RemisolProtein [Mass/Vol]7.4 g/dLNormal6.0 - 7.8 gm/dLFT[facility] RemisolSodium [Moles/Vol]137 mmol/CBuliic979 - 145 mmol/LFT[facility] RemisolUrea nitrogen [Mass/Vol]13 mg/dLNormal5 - 21 mg/dLFT[facility] RemisolUrea nitrogen/Creatinine [Mass ratio]19 mg/rcUctokq23 - 20[facility] RemisolHEMATOLOGY Ordered By: SYSTEM SYSTEM on 76-68-5727Fhoaalpfz/100 WBC (Bld)1.0 %Normal0.0 - 2.0 %[facility] HemeAutoSSBasophils/Leukocytes Auto (Bld) [Pure # fraction]0.1 E9/L Normal0.0 - 0.2 E9/LFT[facility] HemeAutoSSEosinophils/100 WBC (Bld)3.5 %Normal0.0 - 8.0 %[facility] HemeAutoSSEosinophils/Leukocytes Auto (Bld) [Pure # fraction]0.3 E9/L Normal0.0 - 0.5 E9/LFT[facility] HemeAutoSSLymphocytes/100 WBC (Bld)36.9 %Nixupz56.0 - 50.0 %[facility] HemeAutoSSLymphocytes/Leukocytes Auto (Bld) [Pure # fraction]3.1 E9/L Normal1.0 - 4.0 E9/LFT[facility] HemeAutoSSMonocytes/100 WBC (Bld)8.1 %Normal4.0 - 14.0 %[facility] HemeAutoSSMonocytes/Leukocytes Auto (Bld) [Pure # fraction]0.7 E9/LNormal 0.2 - 1.0 E9/LFT[facility] HemeAutoSSNeutrophils/100 WBC (Bld)50.5 %Xqywdr15.0 - 75.0 % [facility] HemeAutoSSNeutrophils/Leukocytes Auto (Bld) [Pure # fraction]4.2 E9/LNormal 2.0 - 7.5 E9/LFT[facility] HemeAutoSSHEMATOLOGYOrdered By: Tamica Chowdhury on 01-25-2022 Erythrocyte distribution width (RBC) [Ratio]12.8 %Ouispf33.9 - 14.2 %[facility] HemeAutoSSHematocrit (Bld) [Volume fraction]36.0 %Jnzbty59.0 - 46.0 %[facility] HemeAutoSSHemoglobin (Bld) [Mass/Vol]12.4 g/ySRsnqtm23.0 - 16.0 gm/dLFTMC HemeAutoSSMCH (RBC) [Entitic mass]29.5 yrJlwkmp44.0 - 34.0 pgFTMC HemeAutoSSMCHC (RBC) [Mass/Vol]34.5 g/pQHsoakt63.4 - 36.0 gm/dLFTMC HemeAutoSSMCV (RBC) [Entitic vol]85.5 hVCjrisb91.0 - 100.0 fLFTMC HemeAutoSSPlatelet mean volume (Bld) [Entitic vol]8.0 fLNormal6.4 - 10.8 fLFT[facility] HemeAutoSSPlatelets (Bld) [#/Vol]225.0 E9/QVklqzs421.0 - 500.0 E9/L[facility] HemeAutoSSRBC (Bld) [#/Vol]4.2 E12/LLow4.3 - 5.9 E12/L[facility] HemeAutoSSWBC corrected for nucl RBC Auto (Bld) [#/Vol]8.3 E9/LNormal4.0 - 11.0 E9/L[facility] HemeAutoSSSEROLOGYOrdered By: Tamica Chowdhury on 48-15-2784Jhci hCG QlNegative (01/25/22 12:06 AM)NormalWE[facility]ERF[facility] [place] SeroURINALYSISOrdered By: Tamica Chowdhury on 90-75-9674Sryntvhh LM Ql (Urine sed)Trace /HPFNormalTrace/HPFWEATHERFORD [facility] [place] UA Auto SS Bilirubin Ql (U)Negative (01/25/22 12:54 AM)NormalNegativeWEATHERF[facility] [place] [facility] Auto SSClarity (U)Cloudy *ABN* (01/25/22 12:54 AM)Invalid Interpretation CodeClearFTM UA Auto SSColor (U) Yellow (01/25/22 12:54 AM)NormalYellowWEATHERFORD [facility] [place] U[facility] Auto SSCrystals LM Ql (Urine sed)Present (01/25/22 12:54 AM)NormalWEATHERFORD [facility] [place] [facility] Auto SSEpithelial cells.squamous LM.HPF (Urine sed) [#/Area]/[HPF]Normal0-2/HPFWEATHERFORD [facility] [place] [facility] Auto SSGlucose Test strip (U) [Mass/Vol] Negative (01/25/22 12:54 AM)NormalNegativeWEATHERF[facility] [place] [facility] Auto SSHemoglobin Ql (U)1+ *ABN* (01/25/22 12:54 AM)Invalid Interpretation CodeNegativeWEATHERF[facility] [place] [facility] Auto SSKetones (U) [Mass/Vol]Negative (01/25/22 12:54 AM)NormalNegativeWE[facility]ER[facility] [place] [facility] Auto SSLithium.plasma/[place].RBC (Bld) [Mass ratio]4-20 /HPFNormal0-3/HPFWEATHERFORD [facility] [place] [facility] Auto SSNitrite Ql (U)Negative (01/25/22 12:54 AM)NormalNegativeWE[facility]ER[facility] [place] [facility] Auto SSpH (U)6.5 *NA* (01/25/22 12:54 AM)Invalid Interpretation Code5.0 - 9.0[facility] [place] [facility] Auto SSProtein (U) [Mass/Vol]Negative (01/25/22 12:54 AM)NormalNegativeWE[facility]ER[facility] [place] [facility] Auto SSSpecific gravity (U) [Rel density]1.025 *NA* (01/25/22 12:54 AM)Invalid Interpretation Code1.005 - 1.030[facility] [place] U[facility] Auto SSUA Spec DescClean Catch (01/25/22 12:54 AM)NormalWEATHERFORD [facility] [place] [facility] Auto SSUrobilinogen Qn (U)0.6055378 {Ag'U}/dLNormal0.0 - 1.0 EU/dLFTMC UA Auto SSWBC Auto Ql (U)Negative (01/25/22 12:54 AM)NormalNegativeFT[facility] UA Auto SSWBC LM.HPF (Urine sed) [#/Area] 0-5 /HPFNormal0-5/HPFFTMC UA Auto SSCHEMISTRYOrdered By: SYSTEM SYSTEM on 58-53-4114Rnzwfjy [Mass/Vol]3.9 g/dLNormal3.3 - 5.0 gm/dL[facility] Remisol Albumin/Globulin [Mass ratio]1.0 {ratio}Low1.1 - 2.2[facility] RemisolALP [Catalytic activity/Vol]123 [iU]/dHigh21 - 98 Int._Unit/L[facility] RemisolALT No additional P-5'-P [Catalytic activity/Vol]40 [iU]/dNormal6 - 46 Int._Unit/L[facility] Remisol Anion gap [Moles/Vol]14 mmol/LNormal6 - 16 mEq/L[facility] RemisolAST [Catalytic activity/Vol]47 [iU]/dHigh5 - 43 Int._Unit/L[facility] RemisolBilirubin [Mass/Vol]0.5 mg/dLNormal0.0 - 1.1 mg/dLFT[facility] RemisolBilirubin.direct [Mass/Vol]mg/dLNormal0.1 - 0.4 mg/dLFT[facility] RemisolBilirubin.indirect [Mass or moles/Vol]Unable to Calculate mg/dLInvalid Interpretation Code0.1 - 0.9 mg/dLFT[facility] RemisolCalcium [Mass/Vol]9.0 mg/dLNormal8.9 - 11.1 mg/dLFT[facility] RemisolChloride [Moles/Vol]103 mmol/CXauksr703 - 111 mmol/L[facility] RemisolCO2 [Moles/Vol]23 mmol/CZlvdjx93 - 31 mmol/LFT[facility] Remisol Creatinine [Mass/Vol]1.0 mg/dLNormal0.5 - 1.3 mg/dLFT[facility] RemisolGFR/1.73 sq M.predicted among blacks MDRD (S/P/Bld) [Vol rate/Area]mL/min/1.73 x8Csjxzg >=59mL/min/1.73 m2FT Chem SGFR/1.73 sq M.predicted among non-blacks MDRD (S/P/Bld) [Vol rate/Area]mL/min/1.73 x2Zwaqlz>=59mL/min/1.73 m2FT Chem S Globulin (S) [Mass/Vol]4.0 g/dLNormal1.4 - 4.0 gm/dLFT[facility] RemisolGlucose [Mass/Vol]110 mg/oAMwgyyw18 - 199 mg/dLFT[facility] RemisolLipase [Catalytic activity/Vol]31 U/JHmrfpx43 - 58 unit/L[facility] RemisolPotassium [Moles/Vol]3.8 mmol/LNormal3.5 - 5.3 mmol/L[facility] RemisolProtein [Mass/Vol]7.9 g/dLHigh6.0 - 7.8 gm/dLFT[facility] RemisolSodium [Moles/Vol]136 mmol/TVhfttw539 - 145 mmol/L[facility] Remisol Urea nitrogen [Mass/Vol]15 mg/dLNormal5 - 21 mg/dLFT[facility] RemisolUrea nitrogen/Creatinine [Mass ratio]15 mg/vtXdkhfu32 - 20[facility] RemisolHEMATOLOGY Ordered By: SYSTEM SYSTEM on 99-56-0924Zrqoozyrj/100 WBC (Bld)1.2 %Normal0.0 - 2.0 %[facility] HemeAutoSSBasophils/Leukocytes Auto (Bld) [Pure # fraction]0.1 E9/L Normal0.0 - 0.2 E9/LFT[facility] HemeAutoSSEosinophils/100 WBC (Bld)1.8 %Normal0.0 - 8.0 %[facility] HemeAutoSSEosinophils/Leukocytes Auto (Bld) [Pure # fraction]0.2 E9/L Normal0.0 - 0.5 E9/LFT[facility] HemeAutoSSLymphocytes/100 WBC (Bld)31.5 %Sekrpg47.0 - 50.0 %[facility] HemeAutoSSLymphocytes/Leukocytes Auto (Bld) [Pure # fraction]3.9 E9/L Normal1.0 - 4.0 E9/LFT[facility] HemeAutoSSMonocytes/100 WBC (Bld)5.1 %Normal4.0 - 14.0 %[facility] HemeAutoSSMonocytes/Leukocytes Auto (Bld) [Pure # fraction]0.6 E9/LNormal 0.2 - 1.0 E9/LFT[facility] HemeAutoSSNeutrophils/100 WBC (Bld)60.4 %Fjbbnz77.0 - 75.0 % [facility] HemeAutoSSNeutrophils/Leukocytes Auto (Bld) [Pure # fraction]7.5 E9/LNormal 2.0 - 7.5 E9/LFT[facility] HemeAutoSSHEMATOLOGYOrdered By: Lucille Arana on 16-71-0069Gplljxuadog distribution width (RBC) [Ratio]12.3 %Powanv83.9 - 14.2 % [facility] HemeAutoSSHematocrit (Bld) [Volume fraction]37.9 %Epgzse30.0 - 46.0 %[facility] HemeAutoSSHemoglobin (Bld) [Mass/Vol]12.6 g/kRBagacp37.0 - 16.0 gm/dLFTMC HemeAutoSSMCH (RBC) [Entitic mass]29.1 lhDdcxkj79.0 - 34.0 pgFTMC HemeAutoSSMCHC (RBC) [Mass/Vol]33.3 g/aERjxzhr55.4 - 36.0 gm/dLFTMC HemeAutoSSMCV (RBC) [Entitic vol]87.3 aHApdryi52.0 - 100.0 fLFT[facility] HemeAutoSSPlatelet mean volume (Bld) [Entitic vol]7.4 fLNormal6.4 - 10.8 fLFT[facility] HemeAutoSSPlatelets (Bld) [#/Vol]241.0 E9/TMgfnpy742.0 - 500.0 E9/LFT[facility] HemeAutoSSRBC (Bld) [#/Vol]4.3 E12/LNormal4.3 - 5.9 E12/L[facility] HemeAutoSSWBC corrected for nucl RBC Auto (Bld) [#/Vol]12.4 E9/LHigh4.0 - 11.0 E9/LFT[facility] HemeAutoSSSEROLOGYOrdered By: Sanju Escobedo on 54-44-4152RVM.beta subunit (U) [Moles/Vol]NegativeNormalWEATHERFORD [facility] [place] Man SeroURINALYSISOrdered By: Sanju Escobedo on 98-43-4292Vwrkfgyl LM Ql (Urine sed)Trace /HPFNormalTrace/HPFFTMC UA Auto SSBilirubin Ql (U)Negative (12/27/21 8:55 PM)NormalNegativeFT UA Auto SSClarity (U)Clear (12/27/21 8:55 PM)NormalClearFTMC UA Auto SSColor (U)Yellow (12/27/21 8:55 PM)NormalYellowFT UA Auto SSEpithelial cells.squamous LM.HPF (Urine sed) [#/Area]5-8 /HPFNormal0-2/HPFFTMC UA Auto SSGlucose Test strip (U) [Mass/Vol]Negative (12/27/21 8:55 PM)NormalNegativeWE[facility]ERF[facility] [place] [facility] Auto SSHemoglobin Ql (U)1+ *ABN* (12/27/21 8:55 PM)Invalid Interpretation CodeNegativeWEATHERF[facility] [place] [facility] Auto SSKetones (U) [Mass/Vol]Negative (12/27/21 8:55 PM)NormalNegativeWEATHERF[facility] [place] [facility] Auto SSLithium.plasma/[place].RBC (Bld) [Mass ratio]0-3 /HPFNormal0-3/HPFFTMC UA Auto SSNitrite Ql (U)Negative (12/27/21 8:55 PM)NormalNegativeWE[facility]ERF[facility] [place] [facility] Auto SSpH (U)6.5 *NA* (12/27/21 8:55 PM)Invalid Interpretation Code5.0 - 9.0FT UA Auto SSProtein (U) [Mass/Vol]Negative (12/27/21 8:55 PM)NormalNegativeWEATHERF[facility] [place] [facility] Auto SSSpecific gravity (U) [Rel density] 1.025 *NA* (12/27/21 8:55 PM)Invalid Interpretation Code1.005 - 1.030FT UA Auto SSUA Spec DescClean Catch (12/27/21 8:55 PM)NormalFT UA Auto SSUrobilinogen Qn (U)0.4512859 {Ag'U}/dLNormal0.0 - 1.0 EU/dLFTMC UA Auto SSWBC Auto Ql (U)Negative (12/27/21 8:55 PM)NormalNegativeWE[facility]ERF[facility] [place] [facility] Auto SSWBC LM.HPF (Urine sed) [#/Area]0-5 /HPFNormal0-5/HPFFT UA Auto SSUrinalysis - AUTOMATEDon 50-27-4268Lzqftqztkr (U)clearQualvu Other Bilirubin Ql (U)[employer] Other Color (U)yellowQualvu Other Glucose Ql (U)[employer] Other Hemoglobin Ql (U)2[employer] Other Ketones Ql (U)[employer] Other Leukocyte esterase Test strip Ql (U)traceDrive Other Nitrite Ql (U)negtaiveNcrossroads [facility] [employer] Other pH (U)6.0 [pH]Drive Other Protein Ql (U)[employer] Other Specific gravity (U) [Rel density]>=1.030[place] [employer] Other Urobilinogen (U) [Mass/Vol]0.2 mg/dLVirtual Restaurants [employer] Other Urinalysis - AUTOMATEDDrive Other CHEMISTRYOrdered By: SYSTEM SYSTEM on 71-25-4067Qkgal gap [Moles/Vol]10 mmol/LNormal6 - 16 mEq/LFT[facility] RemisolCalcium [Mass/Vol]8.5 mg/dLLow8.9 - 11.1 mg/dLFTMC RemisolChloride [Moles/Vol]108 mmol/VDseugb372 - 111 mmol/LFT[facility] RemisolCO2 [Moles/Vol]24 mmol/YGypewu99 - 31 mmol/LFT[facility] Remisol Creatinine [Mass/Vol]0.8 mg/dLNormal0.5 - 1.3 mg/dLFT[facility] RemisolGFR/1.73 sq M.predicted among blacks MDRD (S/P/Bld) [Vol rate/Area]mL/min/1.73 j5Zfibgr >=59mL/min/1.73 m2FT Chem SGFR/1.73 sq M.predicted among non-blacks MDRD (S/P/Bld) [Vol rate/Area]mL/min/1.73 v8Svxkbi>=59mL/min/1.73 m2[facility] [place] Chem S Glucose [Mass/Vol]106 mg/vZBwxubt55 - 199 mg/dLFT RemisolPotassium [Moles/Vol] 3.8 mmol/LNormal3.5 - 5.3 mmol/LFT[facility] RemisolSodium [Moles/Vol]138 mmol/LNormal 135 - 145 mmol/LFT[facility] RemisolUrea nitrogen [Mass/Vol]13 mg/dLNormal5 - 21 mg/dL [facility] [place] RemisolUrea nitrogen/Creatinine [Mass ratio]16 mg/zgMnkqnx86 - 20FT RemisolHEMATOLOGYOrdered By: SYSTEM SYSTEM on 59-01-7257Ddhdnnytm/100 WBC (Bld) 0.3 %Normal0.0 - 2.0 %[facility] [place] HemeAutoSSBasophils/Leukocytes Auto (Bld) [Pure # fraction]0.0 E9/LNormal0.0 - 0.2 E9/LFTMC HemeAutoSSEosinophils/100 WBC (Bld)2.6 %Normal0.0 - 8.0 %[facility] HemeAutoSSEosinophils/Leukocytes Auto (Bld) [Pure # fraction]0.3 E9/LNormal0.0 - 0.5 E9/LFTMC HemeAutoSSLymphocytes/100 WBC (Bld) 35.8 %Rcecsw20.0 - 50.0 %[facility] HemeAutoSSLymphocytes/Leukocytes Auto (Bld) [Pure # fraction]4.0 E9/LNormal1.0 - 4.0 E9/LFT[facility] HemeAutoSSMonocytes/100 WBC (Bld)6.2 %Normal4.0 - 14.0 %[facility] HemeAutoSSMonocytes/Leukocytes Auto (Bld) [Pure # fraction]0.7 E9/LNormal0.2 - 1.0 E9/LFTMC HemeAutoSSNeutrophils/100 WBC (Bld) 55.1 %Pyshhp33.0 - 75.0 %[facility] HemeAutoSSNeutrophils/Leukocytes Auto (Bld) [Pure # fraction]6.2 E9/LNormal2.0 - 7.5 E9/LFTMC HemeAutoSSHEMATOLOGYOrdered By: Roya Mendes on 73-79-1987Bwwobmyfzod distribution width (RBC) [Ratio]12.8 %Oixslz99.9 - 14.2 %FT HemeAutoSSHematocrit (Bld) [Volume fraction]34.3 % Kozmba54.0 - 46.0 %FT HemeAutoSSHemoglobin (Bld) [Mass/Vol]11.2 g/dLLow12.0 - 16.0 gm/dLFT HemeAutoSSMCH (RBC) [Entitic mass]28.9 ybUfrdgi71.0 - 34.0 pgFTMC HemeAutoSSMCHC (RBC) [Mass/Vol]32.8 g/xRGwamaa76.4 - 36.0 gm/dLFTMC HemeAutoSS MCV (RBC) [Entitic vol]88.1 mAVpyvwk04.0 - 100.0 fLFT HemeAutoSSPlatelet mean volume (Bld) [Entitic vol]7.7 fLNormal6.4 - 10.8 fLFTMC HemeAutoSSPlatelets (Bld) [#/Vol]250.0 E9/WSzzcbb942.0 - 500.0 E9/LFTMC HemeAutoSSRBC (Bld) [#/Vol] 3.9 E12/LLow4.3 - 5.9 E12/LFTMC HemeAutoSSWBC corrected for nucl RBC Auto (Bld) [#/Vol]11.2 E9/LHigh4.0 - 11.0 E9/LFTMC HemeAutoSSSEROLOGYOrdered By: Sushila Jacobson on 86-52-3318Lmhc hCG QlNegative (11/08/21 6:40 AM)NormalFT Man SeroURINALYSISOrdered By: Sushila Jacobson on 16-53-3188Wkbmyroq LM Ql (Urine sed)Trace /HPFNormalTrace/HPFWEATHERFORD [facility] [place] U[facility] Auto SS Bilirubin Ql (U)Negative (11/08/21 7:34 AM)NormalNegativeWEATHERF[facility] [place] [facility] Auto SSClarity (U)Cloudy *ABN* (11/08/21 7:34 AM)Invalid Interpretation CodeClearFTM UA Auto SSColor (U)Yellow (11/08/21 7:34 AM)NormalYellowWEATHERFORD [facility]ION[facility] [place] [facility] Auto SSEpithelial cells.squamous LM.HPF (Urine sed) [#/Area]/[HPF]Normal0-2/HPFWEATHERFORD [facility] [place] [facility] Auto SSGlucose Test strip (U) [Mass/Vol]Negative (11/08/21 7:34 AM)NormalNegativeWEATHERF[facility] [place] [facility] Auto SSHemoglobin Ql (U)1+ *ABN* (11/08/21 7:34 AM)Invalid Interpretation CodeNegativeWEATHERFORD [facility] [place] [facility] Auto SSKetones (U) [Mass/Vol]Negative (11/08/21 7:34 AM)NormalNegativeWEATHERF[facility] [place] [facility]A Auto SSLithium.plasma/[place].RBC (Bld) [Mass ratio]4-20 /HPFNormal0-3/HPFWEATHERFORD [facility] [place] [facility] Auto SSNitrite Ql (U)Negative (11/08/21 7:34 AM)NormalNegativeWE[facility]ERF[facility] [place] [facility] Auto SSpH (U)6.0 *NA* (11/08/21 7:34 AM)Invalid Interpretation Code5.0 - 9.0[facility] [place] [facility] Auto SSProtein (U) [Mass/Vol]Negative (11/08/21 7:34 AM)NormalNegativeWEATHERF[facility] [place] [facility] Auto SSSpecific gravity (U) [Rel density] 1.025 *NA* (11/08/21 7:34 AM)Invalid Interpretation Code1.005 - 1.030[facility] [place] [facility] Auto SS Trichomonas sp LM.HPF (Urine sed) [#/Area]Present (11/08/21 7:34 AM)NormalWEATHERFORD [facility] [place] [facility] Auto SSUA Spec DescClean Catch (11/08/21 7:34 AM)NormalWEATHERFORD [facility] [place] [facility] Auto SSUrobilinogen Qn (U)0.4642753 {Ag'U}/dLNormal0.0 - 1.0 EU/dLFT UA Auto SSWBC Auto Ql (U)1+ *ABN* (11/08/21 7:34 AM)Invalid Interpretation CodeNegativeFT UA Auto SSWBC LM.HPF (Urine sed) [#/Area]6-15 /HPFInvalid Interpretation Code0-5/HPFFT UA Auto SS SEROLOGYOrdered By: Tamica Chowdhury on 34-03-3148SOC.beta subunit (U) [Moles/Vol] NegativeNormalWEATHERFORD [facility] [place] Man SeroURINALYSISOrdered By: Pedro Pablo Montero on 10-24-2021 Bacteria LM Ql (Urine sed)1+ /HPFInvalid Interpretation CodeTrace/HPFMC UA Auto SSBilirubin Ql (U)Negative (10/24/21 8:10 PM)NormalNegativeWE[facility]ER[facility] [place] [facility] Auto SSClarity (U)SL CLOUDYInvalid Interpretation CodeWEATHERFORD REGIONAL [facility]OSPITAL [facility] [place] U[facility] Auto SSColor (U)Yellow (10/24/21 8:10 PM)NormalYellowWEATHERFORD [facility]IONAL [facility] [place] [facility] Auto SSCrystals LM Ql (Urine sed)Present (10/24/21 8:10 PM)NormalWEATHERFORD [facility] [place] [facility] Auto SSEpithelial cells.squamous LM.HPF (Urine sed) [#/Area]/[HPF]Normal0-2/HPFWEATHERFORD [facility]IONAL [facility] [place] [facility]A Auto SSGlucose Test strip (U) [Mass/Vol] Negative (10/24/21 8:10 PM)NormalNegativeWEATHERF[facility] [place] [facility] Auto SSHemoglobin Ql (U)1+ *ABN* (10/24/21 8:10 PM)Invalid Interpretation CodeNegativeWEATHERFORD [facility] [place] [facility] Auto SSKetones (U) [Mass/Vol]Negative (10/24/21 8:10 PM)NormalNegativeWEATHERF[facility] [place] UA Auto SSLithium.plasma/[place].RBC (Bld) [Mass ratio]4-20 /HPFNormal0-3/HPFWEATHERFORD [facility] [place] [facility]A Auto SSMucus Ql (Urine sed)1+ (10/24/21 8:10 PM)NormalWEATHERFORD [facility] [place] [facility] Auto SSNitrite Ql (U)Negative (10/24/21 8:10 PM)NormalNegativeWE[facility]ER[facility] [place] [facility] Auto SSpH (U)6.5 *NA* (10/24/21 8:10 PM)Invalid Interpretation Code5.0 - 9.0[facility] [place] [facility] Auto SSProtein (U) [Mass/Vol]Negative (10/24/21 8:10 PM)NormalNegativeWEATHERF[facility] [place] UA Auto SSSpecific gravity (U) [Rel density] 1.025 *NA* (10/24/21 8:10 PM)Invalid Interpretation Code1.005 - 1.030[facility] [place] [facility] Auto SS Trichomonas sp LM.HPF (Urine sed) [#/Area]Present (10/24/21 8:10 PM)NormalWEATHERFORD [facility] [place] Auto SSUA Spec DescClean Catch (10/24/21 8:10 PM)NormalWEATHERFORD [facility] [place] Auto SSUrobilinogen Qn (U)[id number] {Ag'U}/dLNormal0.0 - 1.0 EU/dLWEATHERFORD REGIONAL [facility]OSP[facility] [place] Auto SSWBC Auto Ql (U)Negative (10/24/21 8:10 PM)NormalNegativeWEATHERF[facility] [place] Auto SSWBC LM.HPF (Urine sed) [#/Area]6- 15 /HPFInvalid Interpretation Code0-5/HPFWEATHERFORD REGIONAL [facility] [place] U[place] Auto SSMICRO OTHER TESTSOrdered By: Eva Adames on [id number] COV Int NEG CtlPass (07/20/21 11:46 PM)NormalWEATHERFORD [facility] [place] Man SeroRapid COV Int POS CtlPass (07/20/21 11:46 PM)NormalWEATHERFORD [facility] [place] Man SeroS. pyogenes Ag IA.rapid Ql (Throat)Positive *ABN* (07/20/21 11:46 PM)Invalid Interpretation CodeNegativeWEATHERF[facility] [place] Man Sero SARS-CoV+SARS-CoV-2 (COVID-19) Ag IA.rapid Ql (Resp)Not Detected (07/20/21 11:46 PM)NormalNot DetectedWEATHERFORD REGIONAL [facility] [place] Man SeroCOVID + FLU Quick Testingon [id number]-CoV-2 (COVID-19) RNA JUANA+probe Ql (Unsp spec)NegativeNosaint john's [facility] [employer] Other COVID + FLU Quick TestingPositiveNoQualvu Other COVID + FLU Quick TestingNegativeQualvu Other CBC Auto Differentialon [id number] (Bld) [#/Vol]0.04 10*3/[facility]- [place], [place]Basophils/100 WBC (Bld)0 %0 - 2 %[facility], KYDifferential TypeNOT REPORTEDC[facility]- [place], KYEosinophils (Bld) [#/Vol]0.29 10*3/[facility]- [place], KYEosinophils/100 WBC (Bld)2 %1 - 4 %[facility]- [place], KYErythrocyte distribution width (RBC) [Ratio]12.7 %11.8 - 14.4 % [facility]- [place], KYHematocrit (Bld) [Volume fraction]38.0 %36.3 - 47.1 %[facility]- [place], KYHemoglobin (Bld) [Mass/Vol]12.7 g/dL11.9 - 15.1 g/dLGeorgetown Behavioral Hospital, KYImmature granulocytes (Bld) [#/Vol]1 %Uliw6SqacbOhiohealth [facility] [place], KYImmature granulocytes (Bld) [#/Vol]0.07 10*3/[facility]- [place], KYInterpretation and review of laboratory resultsAbnormKettering Health [facility] [place], KYLymphocytes (Bld) [#/Vol]4.16 10*3/uLZanesville City Hospital- [place], KYLymphocytes/100 WBC (Bld)35 %24 - 43 %[facility], KYMCH (RBC) [Entitic mass]30.8 pg25.2 - 33.5 pgOhiohealth Grady [facility] [place], KYMCHC (RBC) [Mass/Vol]33.4 g/dL28.4 - 34.8 g/dLOhiohealth Grady [facility] Hospital [place], KYMCV (RBC) [Entitic vol]92.0 fL82.6 - 102.9 fLCleveland Clinic Lutheran Hospital- [place], KYMonocytes (Bld) [#/Vol]0.57 10*3/[facility]- [place], [place]Monocytes/100 WBC (Bld)5 %3 - 12 %[facility]- [place], KYPlatelet mean volume (Bld) [Entitic vol]9.1 fL8.1 - 13.5 fLMercy Health- [place], KYPlatelets (Bld) [#/Vol]262 10*3/uLGeorgetown Behavioral Hospital, SCPlatelets (Bld) [#/Vol]NOT REPORTEDHouse, KYRBC (Bld) [#/Vol]4.13 10*6/uL3.95 - 5.11 m/[facility] morphology finding Nom (Bld)NOT REPORTEDMercy Health St. Elizabeth Boardman Hospitalented neutrophils/100 WBC (Bld)57 %36 - 65 %House, KYSegs Absolute6.80House, KYWBC (Bld) [#/Vol]11.9 10*3/uLHighHouse, KYWBC (Bld) [#/Vol]0.0 10*3/uL0.0 per 100 WBCGeorgetown Behavioral Hospital, [facility] MorphologyNOT REPORTEDSelect [facility]ty [facility] [place] with Diffon [id number]. Basophil0.04 k/uLNormal0.00-0.20German HospitalComment on above: Performed By: #### LIP, CDP, CMPX #### [facility] [address] [place] [phone] Physical Therapist Aide: Kylie Sher.Imm.Granulocyte0.07 k/uLNormal0.00-0.30 German HospitalComment on above:Performed By: #### LIP, CDP, CMPX #### [facility] [address] [place] [id number] Physical Therapist Aide: Kylie Sher.Neutrophil (Seg)6.80 k/uLNormal1.50-8.10 [facility] HospitalComment on above:Performed By: #### LIP, CDP, CMPX #### [facility] [address] [place] [id number] Physical Therapist Aide: William Shersophils/100 WBC (Bld)0 %Normal0-2Mer[facility] HospitalComment on above:Performed By: #### LIP, CDP, CMPX #### [facility] [address] [place] [address] Physical Therapist Aide: HEMALATHA Sherosinophils (Bld) [#/Vol]0.29 10*3/uLNormal 0.00-0.44MerDoctors HospitalComment on above:Performed By: #### LIP, CDP, CMPX #### [facility] [address] [place] [id number] Physical Therapist Aide: HEMALATHA Sherosinophils/100 WBC (Bld)2 %Normal1-4German HospitalComment on above:Performed By: #### LIP, CDP, CMPX #### [facility] [address] [place] [address] Physical Therapist Aide: Freedom Fong MDErythrocyte distribution width (RBC) [Ratio] 12.7 %Gbujah14.8-14.4German HospitalComment on above:Performed By: #### LIP, CDP, CMPX #### [facility] [address] [place] [address] Physical Therapist Aide: Freedom Fong MDHematocrit (Bld) [Volume fraction]38.0 %Normal 36.3-47.1Mer[facility]noqualmie Valley HospitalComment on above:Performed By: #### LIP, CDP, CMPX #### [facility] [address] [place] [address] Physical Therapist Aide: Freedom Fong MDHemoglobin (Bld) [Mass/Vol]12.7 g/dLNormal 11.9-15.1Mer[facility] HospitalComment on above:Performed By: #### LIP, CDP, CMPX #### [facility] [address] [facility] [address] Physical Therapist Aide: Freedom Fong MDImmature granulocytes (Bld) [#/Vol]1 %High0 [facility]Comp[facility] on above:Performed By: #### LIP, CDP, CMPX #### [facility] [address] [place] [address]. [place] [address] Physical Therapist Aide: Freedom Fong MDLymphocytes (Bld) [#/Vol]4.16 10*3/uLHigh 1.10-3.70[facility] HospitalComprom[facility] on above:Performed By: #### LIP, CDP, CMPX #### [facility] [address] [place] [address] Physical Therapist Aide: Shannan Sherhocytes/100 WBC (Bld)35 %Ljthsd81-83IgacjGerman HospitalCompromedica char[facility] on above:Performed By: #### LIP, CDP, CMPX #### [facility] [address] [place] [address] Physical Therapist Aide: YEIMY SherCH (RBC) [Entitic mass]30.8 wvAbmxox49.2-33.5 [facility]Comp[facility] on above:Performed By: #### LIP, CDP, CMPX #### [facility] [address] [place] [address]. [place] [address] Physical Therapist Aide: YEIMY SherCHC (RBC) [Mass/Vol]33.4 g/zQJxtnht73.4-34.8 [facility]Comp[facility] on above:Performed By: #### LIP, CDP, CMPX #### [facility] [address] [place] [address]. [place] [address] Physical Therapist Aide: YEIMY SherCV (RBC) [Entitic vol]92.0 aEEtmupy48.6-102.9 [facility] HospitalComp[facility] on above:Performed By: #### LIP, CDP, CMPX #### [facility] [address] [place] [address]. [place] [address] Physical Therapist Aide: YEIMY Sheronocytes (Bld) [#/Vol]0.57 10*3/uLNormal 0.10-1.20MerDoctors HospitalCompromedica char[facility] on above:Performed By: #### LIP, CDP, CMPX #### [facility] [address] [place] [address] Physical Therapist Aide: YEIMY Sheronocytes/100 WBC (Bld)5 %Normal3-12[facility] HospitalComp[facility] on above:Performed By: #### LIP, CDP, CMPX #### [facility] [address] [place] [address]. [place] [address] Physical Therapist Aide: Freedom Fong MDNeutrophil (Seg)57 %Htcttu58-70AsmdpDoctors HospitalCompromedica char[facility] on above:Performed By: #### LIP, CDP, CMPX #### [facility] [address] [place] [address]. [place] [address] Physical Therapist Aide: Freedom Fong MDNRBC Automated0.0 per 100 WBCNormal0.0[facility] HospitalCompromed[facility] on above:Performed By: #### LIP, CDP, CMPX #### [facility] [address] [place] [address]. [place] [address] Physical Therapist Aide: TAMICA Sherlatelet mean volume (Bld) [Entitic vol]9.1 fL Normal8.1-13.5MerDoctors HospitalCompromedica char[facility] on above:Performed By: #### LIP, CDP, CMPX #### [facility] [address] [place] [address]. [place] [address] Physical Therapist Aide: Tommie Sher (Bld) [#/Vol]262 10*3/aVNepgxa718-466 [facility] on above:Performed By: #### LIP, CDP, CMPX #### [facility] [address] [place] [address] Physical Therapist Aide: WALI Sher (Bld) [#/Vol]4.13 10*6/uLNormal3.95-5.11 [facility] on above:Performed By: #### LIP, CDP, CMPX #### [facility] [address] [place] [address]. [place] [address] Physical Therapist Aide: RAE Sher (Bld) [#/Vol]11.9 10*3/uLHigh3.5-11.3MTrinity Health System [facility] on above:Performed By: #### LIP, CDP, CMPX #### [facility] [address] [place] [address]. [place] [address] Physical Therapist Aide: Courtney Sher PerformedNOT REPORTEDNormalMerDeer Park Hospital on above:Performed By: #### LIP, CDP, CMPX #### [facility] [address] [place] [address]. [place] [address] Physical Therapist Aide: Tommie Sher (Bld) [#/Vol]NOT REPORTEDNormalMercy St. [facility] on above:Performed By: #### LIP, CDP, CMPX #### [facility] [address] [place] [address]. [place] [address] Physical Therapist Aide: WALI Sher morphology finding Nom (Bld)NOT REPORTED NormalSelect Medical [facility]Health [facility] on above:Performed By: #### LIP, CDP, CMPX #### [facility] [address] [place] [address] Physical Therapist Aide: Freedom Fong MDBLYTHEDALE [facility]IL[facility] MorphologyNOT REPORTEDNormBrown Memorial HospitalComment on above:Performed By: #### LIP, CDP, CMPX #### [facility] [address] [place] [address] Physical Therapist Aide: ROS Sher ABDOMEN PELVIS WO CONTRASTon [id number] ABDOMEN PELVIS WO CONTRASTEXAMINATION: CT OF THE ABDOMEN AND PELVIS WITHOUT [...] unremarkable. No adnexal mass. Bladder is unremarkable. Peritoneum/Retroperitoneum: Trace free fluid within the dependent pelvis. No free air. The aorta is unremarkable caliber. Bones/Soft Tissues: No suspicious osseous lesion. IMPRESSION: Negative nephrolithiasis or obstructive uropathy. Mild scattered colonic diverticulosis. Interpreted by: Giorgio Lucas MD Signed by: Giorgio Lucas MD 03/10/20 Final resultNoRegency Hospital CompanyCT ABDOMEN PELVIS WO CONTRAST Additional Contrast? Noneon [id number] nephrolithiasis or obstructive uropathy. Mild scattered colonic diverticulosis.[facility], Elidia Barba Incoming Radiant Results From [employer] - 03/10/2020 1:55 AM EST EXAMINATION: CT [...] unremarkable. No adnexal mass. Bladder is unremarkable. Peritoneum/Retroperitoneum: Trace free fluid within the dependent pelvis. No free air. The aorta is unremarkable caliber. Bones/Soft Tissues: No suspicious osseous lesion. IMPRESSION: Negative nephrolithiasis or obstructive uropathy. Mild scattered colonic diverticulosis. [facility], KYEXAMINATION: CT OF THE ABDOMEN AND PELVIS WITHOUT [...] ORDERING SYSTEM PROVIDED HISTORY: left flank pain TECHNOLOGISTPROVIDED HISTORY: left flank pain Is the patient ?->No Reason for Exam: Left flank pain,vomiting, nausea, Hx: diabetes, htn, asthma, tubal ligation, [...] unremarkable. No adnexal mass. Bladder is unremarkable. Peritoneum/Retroperitoneum: Trace free fluid within the dependent pelvis. No free air. The aorta is unremarkable caliber. Bones/Soft Tissues: No suspicious osseous lesion.[facility], [facility] Metabolic Pr/rfx MGon 03-10-2020(cont.) NormalGerman HospitalComment on above:Result Comment: Average GFR for 30-39 years old: 107 mL/min/1.73sq m Chronic Kidney Disease: <60 mL/min/1.73sq m Kidney failure: <15 mL/min/1.73sq m eGFR calculated using average adult body mass. Additional eGFR calculator available at: http://www.Animal Kingdom/multiple_crcl_2012.htmPerformed By: #### LIP, CDP, CMPX #### [facility] [address] [place] [address]. [place] [address] Physical Therapist Aide: Freedom Fong MDAlbumin [Mass/Vol]3.6 g/dLNormal3.5-5.2MPullman Regional HospitalComment on above:Performed By: #### LIP, CDP, CMPX #### [facility] [address] [place] [address]. [place] [address] Physical Therapist Aide: Amy Sherline Mzmv823 U/SLzrd22-469CiesyGerman HospitalCompromedica charles [facility] on above:Performed By: #### LIP, CDP, CMPX #### [facility] [address] [place] [address]. [place] [address] Physical Therapist Aide: Freedom Fong MDALT [Catalytic activity/Vol]U/LLow5-33[facility] HospitalCompromedica [facility] on above:Performed By: #### LIP, CDP, CMPX #### [facility] [address] [place], [place] [address], [place] [address] Physical Therapist Aide: Freedom Fong MDAniabrahan gap [Moles/Vol]11 mmol/LNormal9-17MerDoctors HospitalComment on above:Performed By: #### LIP, CDP, CMPX #### [facility] [address] [place] [address]. [place] [address] Physical Therapist Aide: Freedom Fong MDAST [Catalytic activity/Vol]U/LNormal<32MerDoctors HospitalComment on above:Performed By: #### LIP, CDP, CMPX #### [facility] [address] [place] [address] Physical Therapist Aide: Freedom Fong MDBilirubin Ql (U)0.11 mg/dLLow0.3-1.2Mer[facility] HospitalComment on above:Performed By: #### LIP, CDP, CMPX #### [facility] [address] [place] [address] Physical Therapist Aide: GAUDENCIO Sher/CRE Cmevg28Hngm1-29YktvpGerman Hospital Comment on above:Performed By: #### LIP, CDP, CMPX #### [facility] [address] [place] [address] Physical Therapist Aide: GURPREET Sheralcium [Mass/Vol]8.6 mg/dLNormal8.6-10.4MerDoctors HospitalComment on above:Performed By: #### LIP, CDP, CMPX #### [facility] [address] [place] [address] Physical Therapist Aide: GURPREET Sherhloride [Moles/Vol]102 mmol/RGcfpkc94-060QcrlaDoctors HospitalComment on above:Performed By: #### LIP, CDP, CMPX #### [facility] [address] [place] [address] Physical Therapist Aide: Freedom Fong MDCO2 [Moles/Vol]21 mmol/TNwjesy13-33MfjnfGerman HospitalComment on above:Performed By: #### LIP, CDP, CMPX #### [facility] [address] [place] [address] Physical Therapist Aide: GURPREET Sherreatinine [Mass/Vol]0.61 mg/dLNormal0.50-0.90 German HospitalComment on above:Performed By: #### LIP, CDP, CMPX #### [facility] [address] [place] [address] Physical Therapist Aide: Freedom Fong MDGFR, Amer>60Normal>60[facility] HospitalCompromedica char[facility] on above:Performed By: #### LIP, CDP, CMPX #### [facility] [address] [place] [address] Physical Therapist Aide: Freedom Fong MDGFR,non Amer>60Normal>60[facility] HospitalCompromedica [facility] on above:Performed By: #### LIP, CDP, CMPX #### [facility] [address] [place] [address] Physical Therapist Aide: Freedom Fong MDGlucose [Mass/Vol]102 mg/yFEegy26-80Rkimy [facility] HospitalCompromedica [facility] on above:Performed By: #### LIP, CDP, CMPX #### [facility] [address] [place] [address] Physical Therapist Aide: Freedom Fong MDPotassium [Moles/Vol]3.9 mmol/LNormal3.7-5.3 [facility] HospitalCompromedica [facility] on above:Performed By: #### LIP, CDP, CMPX #### [facility] [address] [place] [address] Physical Therapist Aide: Freedom Fong MDProtein [Mass/Vol]7.2 g/dLNormal6.4-8.3MPullman Regional HospitalComment on above:Performed By: #### LIP, CDP, CMPX #### [facility] [address] [place] [address]. [place] [address] Physical Therapist Aide: MARGARITA Sherodium [Moles/Vol]134 mmol/YMny593-874WfqvtGerman HospitalComment on above:Performed By: #### LIP, CDP, CMPX #### [facility] [address] [place] [address] Physical Therapist Aide: Freedom Fong MDUrea nitrogen [Mass/Vol]13 mg/dLNormal6-20MerDoctors HospitalComment on above:Performed By: #### LIP, CDP, CMPX #### [facility] [address] [place] [address]. [place] [address] Physical Therapist Aide: Freedom Fong MDAlbumin/Globulin [Mass ratio]NOT REPORTEDNormal 1.0-2.5German HospitalComment on above:Performed By: #### LIP, CDP, CMPX #### [facility] [address] [place] [address]. [place] [address] Physical Therapist Aide: MARGARITA Shertaging:NOT REPORTEDNormalGerman HospitalCompromedica [facility] on above:Performed By: #### LIP, CDP, CMPX #### [facility] [address] [place] [address] Physical Therapist Aide: GURPREET Sheromprehensive Metabolic Panel w/ Reflex to MGon [id number] [Mass/Vol]3.6 g/dL3.5 - 5.2 g/dLMercy Health- [place], [place] Albumin/Globulin [Mass ratio]NOT REPORTEDGe[facility]al Hospital, KYALP [Catalytic activity/Vol]140 U/LHigh35 - 104 U/[facility] [place], KYALT [Catalytic activity/Vol]U/LLow5 - 33 U/[facility] [place], KYAnion gap [Moles/Vol]11 mmol/L9 - 17 mmol/[facility] [place], KYAST [Catalytic activity/Vol]U/L<32 U/[facility], KYBilirubin Ql (U)0.11 mg/dLLow0.3 - 1.2 mg/dLGeorgetown Behavioral Hospital, [place] Bun/Cre Cvwne20RmfuAxlwk Health- [place], KYCalcium [Mass/Vol]8.6 mg/dL8.6 - 10.4 mg/dLGeorgetown Behavioral Hospital, KYChloride [Moles/Vol]102 mmol/L98 - 107 mmol/[facility], KYCO2 [Moles/Vol]21 mmol/L20 - 31 mmol/[facility], [place] Creatinine [Mass/Vol]0.61 mg/dL0.5 - 0.9 mg/dLGeorgetown Behavioral Hospital, KYGFR >60>60 mL/minGeorgetown Behavioral Hospital, KYGFR Non->60>60 mL/min [facility], KYGFR/1.73 sq M predicted among non-blacks MDRD (S/P/Bld) [Vol rate/Area][facility], KYComment on above:Average GFR for 30-39 years old: 107 mL/min/1.73sq m Chronic Kidney Disease: <60 mL/min/1.73sq m Kidney failure: <15 mL/min/1.73sq m eGFR calculated using average adult body mass. Additional eGFR calculator available at: http://www.[employer]/multiple_crcl_2012.htm GFR/1.73 sq M predicted among non-blacks MDRD (S/P/Bld) [Vol rate/Area]NOT REPORTEDGe[facility]al Hospital, SCGlucose [Mass/Vol]102 mg/cOMwab76 - 99 mg/dLMercy Health- [place], KYInterpretation and review of laboratory resultsAbnormalMercy Health- [place], KYPotassium [Moles/Vol]3.9 mmol/L3.7 - 5.3 mmol/LMercy Health- [place], KYProtein [Mass/Vol]7.2 g/dL6.4 - 8.3 g/dLMercy Health- [place], KYSodium [Moles/Vol] 134 mmol/ILtn456 - 144 mmol/LMercy Health- [place], KYUrea nitrogen [Mass/Vol]13 mg/dL6 - 20 mg/dLMercy Health- [place], KYLipaseon [id number] [Catalytic activity/Vol]25 U/PTptjey98-57XbvrvGerman HospitalComment on above:Performed By: #### LIP, CDP, CMPX #### [facility] [address] [place] [address] Physical Therapist Aide: Freedom Fong MDLipase [Catalytic activity/Vol]25 U/L13 - 60 U/LMercy Health- [place], KYMicroscopic Urinalysison [id number], UANOT REPORTEDNoneMey Health- [place], KYBacteria, UAMODERATEAbnormalNoneMey Health- [place], KYCasts UANOT REPORTED/LPFMercy Health- [place], KYCrystals, UANOT REPORTEDNone /HPFMercy Health- [place], KYEpithelial Cells UA2 TO 5[facility]- [place], [place] Interpretation and review of laboratory resultsAbnormalTrinity Health System Twin [facility] Centercy Health- [place], [place] Mucus, UANOT REPORTEDNoneMercy Health- [place], KYOther Observations UANOT REPORTED NOT REQ.[facility]- [place], KYRBC (U) [#/Vol]TOO NUMEROUS TO COUNTMercy Health- [place], KYRenal Epithelial, UANOT REPORTED0 /HPFMercy Health- [place], KYTrichomonas, UA NOT REPORTEDNoneMercy Health- [place], KYWBC, UA5 TO 10[facility]- [place], KYYeast, UA NOT REPORTEDNoneMercy Health- [place], [place]-[facility]- [place], KYPOCT Urine Pregnancyon [id number] and review of laboratory resultsNormalMercy Health- [place], KYPreg Test, UrNegativeMerProsser Memorial Hospital- [place], KYQC OK?okMercy [facility]- [place], KYUA w/Reflex Cultureon [id number] Acid,UrNegativeNormalNEGMercy Snoqualmie Valley HospitalComment on above:Performed By: #### UAX, UMICAO #### [facility] [address] [place] [address] Physical Therapist Aide: Freedom Fong MDBilirubin, SemiQt,UrNegativeNormalNEGMercy Snoqualmie Valley HospitalComment on above:Performed By: #### UAX, UMICAO #### [facility] [address] [place] [address] Physical Therapist Aide: GURPREET Sherolor (U)REDAbnormalYELMerDoctors Hospital Comment on above:Performed By: #### UAX, UMICAO #### [facility] [address] [place] [address] Physical Therapist Aide: Freedom Fong MDGlucose Ql (U)NegativeNormalNEGMerDoctors HospitalCompromedica [facility] on above:Performed By: #### UAX, UMICAO #### [facility] [address] [place] [address] Physical Therapist Aide: Freedom Fong MDHemoglobin, Ur3+AbnormalNEGMerDoctors HospitalComment on above:Performed By: #### UAX, UMICAO #### [facility] [address] [place] [address] Physical Therapist Aide: Freedom Fong MDLeukocyte esterase Test strip Ql (U)TRACE AbnormalNEGMercy Snoqualmie Valley HospitalCompromedica [facility] on above:Performed By: #### UAX, UMICAO #### [facility] [address] [place] [address] Physical Therapist Aide: Elisha Shertrite,UrNegativeNormalNEGSelect Medical [facility] Hospital on above:Performed By: #### MILAGRO ENAMORADO #### [facility] [address] [place] [address] Physical Therapist Aide: Tamica SherH (U)6.0 [pH]Normal5.0-8.0[facility] on above:Performed By: #### DAVID ENAMORADOO #### [facility] [address] [place] [address] Physical Therapist Aide: TAMICA Sherrotein Ql (U)1+AbnormalNEGSelect Medical [facility]Health Rehabilitation Hospital on above:Performed By: #### MILAGRO ENAMORADO #### [facility] [address] [place] [address] Physical Therapist Aide: MARGARITA Sherpecific gravity (U) [Rel density]1.029Normal 1.005-1.030MerDeer Park Hospital on above:Performed By: #### DAVID ENAMORADOO #### [facility] [address] [place] [address] Physical Therapist Aide: SUYAPA SherurbidityCLOUDYAbnormalCLEARSelect Medical [facility] on above:Performed By: #### FEI UMCHRISTINEO #### [facility] [address] [place] [address] Physical Therapist Aide: Karissa Sher,UrNormalNormalNORMSelect [facility] on above:Performed By: #### FEI UMICAO #### [facility] [address] [place] [address] Physical Therapist Aide: GURPREET SherommentNOT REPORTEDNormalGerman HospitalComment on above:Performed By: #### MILAGRO ENAMORADO #### [facility] [address] [place] [address] Physical Therapist Aide: Freedom Fong MDUrinalysis Reflex to Cultureon 03-10-2020 Bilirubin UrineNegativeNEGATIVEMercy Health- [place], KYColor, UAREDAbnormalYELLOW [facility]- [place], KYGlucose, UrNegativeNEGATIVEMercy Health- [place], [place] Interpretation and review of laboratory resultsAbnormalMercy Health- [place], [place] Ketones Ql (U)NegativeNEGATIVEMercy Health- [place], KYLeukocyte esterase Test strip Ql (U)TRACEAbnormalNEGATIVEMercy Health- [place], KYNitrite, UrineNegativeNEGATIVE [facility]- [place], KYpH, UA6.0[facility]- [place], KYProtein (U) [Mass/Vol]1+ AbnormalNEGATIVEMercy Health- [place], KYSpecific [place], UA1.029[facility]- [place], KYTurbidity UACLOUDYAbnormalCLEARMercy Health- [place], KYUrinalysis CommentsNOT REPORTEDMercy Health- [place], KYUrine Hgb3+AbnormalNEGATIVEMercy Health- [place], [place] Urobilinogen, UrineNormalNormalMercy Health- [place], KYUrinalysis,Microon 03-10-2020 -----NormalMercy Snoqualmie Valley HospitalComment on above:Performed By: #### MILAGRO ENAMORADO #### [facility] [address] [place] [address] Physical Therapist Aide: Freedom Fong MDBacteria LM.HPF (Urine sed) [#/Area]MODERATE AbnormalNONEMercy Snoqualmie Valley HospitalComment on above:Performed By: #### MILAGRO ENAMORADO #### [facility] [address] [place] [address] Physical Therapist Aide: Freedom Fong MDEpithelial cells LM.HPF (Urine sed) [#/Area]2 TO 3Nrwqwn4-7Ciwuz [facility] HospitalComment on above:Performed By: #### UAX, UMICAO #### [facility] [address] [place], [place] [address] [facility] [place] [address] Physical Therapist Aide: WALI Sher (U) [#/Vol]TOO NUMEROUS TO COUNTNormal0-2 German HospitalCompromedica [facility] on above:Performed By: #### UAX, UMICAO #### [facility] [address] [place] [address]. [place] [address] Physical Therapist Aide: OVI SherBC (U) [#/Vol]5 TO 01Ifvwot7-4Xdeae [facility] HospitalComment on above:Performed By: #### UAX, UMICAO #### [facility] [address] [place] [address]. [place] [address] Physical Therapist Aide: Amanda Sher sediment LM Ql (Urine sed)NOT REPORTEDNormalNONEMercy Snoqualmie Valley HospitalComment on above:Performed By: #### UAX, UMICAO #### [facility] [address] [place] [address]. [place] [address] Physical Therapist Aide: Evita Sher LM.LPF (Urine sed) [#/Area]NOT REPORTED NormalMercy Snoqualmie Valley HospitalComment on above:Performed By: #### UAX, UMICAO #### [facility] [address] [place], [place] [address] [facility] [address] Physical Therapist Aide: Ciirlo Sherstanthony LM Nom (Urine sed)NOT REPORTEDNormal NONEMercy Snoqualmie Valley HospitalComment on above:Performed By: #### UAX, UMICAO #### [facility] [address] [place], [place] [address] [facility] [place] [address] Physical Therapist Aide: Freedom Fong MDEpithelial, RenalNOT QYBDCYLDEoccjx2FqaglGerman HospitalComment on above:Performed By: #### UAX, UMICAO #### [facility] [address] [place] [address] Physical Therapist Aide: YEIMY Sherucus StrandsNOT REPORTEDNormalNONEMercy Snoqual[facility] Valley HospitalCompromedica [facility] on above:Performed By: #### UAX, UMICAO #### [facility] [address] [place] [address] Physical Therapist Aide: Freedom Fong MDOther ObservationsNOT REPORTEDNormalNREQGerman HospitalCompromedica [facility] on above:Performed By: #### FEI, UMICAO #### [facility] [address] [place] [address] Physical Therapist Aide: Freedom Fong MDTrichomonasNOT REPORTEDNormalNONEMeSummit Pacific Medical CenterCompromedica char[facility] on above:Performed By: #### MARIA VICTORIAX, UMICAO #### [facility] [address] [place] [address] Physical Therapist Aide: Freedom Fong MDYeast LM Ql (Urine sed)NOT REPORTEDNormalNONE German HospitalCompromedica char[facility] on above:Performed By: #### MARIA VICTORIAX, UMICAO #### [facility] [address] [place] [address] Physical Therapist Aide: Andrea Sher Metabolic Panelon [id number] gap [Moles/Vol]11 mmol/L9 - 17 mmol/LMChillicothe Hospital [place], KYBun/Cre RatioNOT REPORTED [facility], KYCalcium [Mass/Vol]8.9 mg/dL8.6 - 10.4 mg/dLOhiohealth Grady Memorial Hospital [place], KYChloride [Moles/Vol]105 mmol/L98 - 107 mmol/LMtrumbull memorial hospital Health- [place], KYCO2 [Moles/Vol]24 mmol/L20 - 31 mmol/LMtrumbull memorial hospital Health- [place], KYCreatinine [Mass/Vol]0.67 mg/dL0.5 - 0.9 mg/dLCleveland Clinic Luther[facility] Hospital- [place], KYGFR >60>60 mL/minOhiohealth Grady Memorial Hospital [place], KYGFR Non->60>60 mL/minOhiohealth Grady Memorial Hospital [place], KYGFR/1.73 sq M predicted among non-blacks MDRD (S/P/Bld) [Vol rate/Area][facility], KYComment on above:Average GFR for 30-39 years old: 107 mL/min/1.73sq m Chronic Kidney Disease: <60 mL/min/1.73sq m Kidney failure: <15 mL/min/1.73sq m eGFR calculated using average adult body mass. Additional eGFR calculator available at: http://www.[employer] Kingdom/multiple_crcl_2012.htm GFR/1.73 sq M predicted among non-blacks MDRD (S/P/Bld) [Vol rate/Area]NOT REPORTEDGeorgetown Behavioral Hospital, KYGlucose [Mass/Vol]110 mg/iEFkff75 - 99 mg/dLGeorgetown Behavioral Hospital, KYInterpretation and review of laboratory resultsAbnormalGeorgetown Behavioral Hospital, KYPotassium [Moles/Vol]3.9 mmol/L3.7 - 5.3 mmol/[facility]- [place], KYSodium [Moles/Vol]140 mmol/L135 - 144 mmol/[facility]- [place], KYUrea nitrogen [Mass/Vol]12 mg/dL6 - 20 mg/dLGeorgetown Behavioral Hospital, KYCBC With Auto Differentialon [id number] (Bld) [#/Vol]0.05 10*3/uLCleveland Clinic Luther[facility]- [place], KYBasophils/100 WBC (Bld)1 %0 - 2 %[facility]- [place], KYDifferential TypeNOT REPORTEDGeorgetown Behavioral Hospital, KYEosinophils (Bld) [#/Vol]0.27 10*3/uLCleveland Clinic [facility]- [place], [place] Eosinophils/100 WBC (Bld)3 %1 - 4 %[facility]- [place], KYErythrocyte distribution width (RBC) [Ratio]12.6 %11.8 - 14.4 %[facility]- [place], KYHematocrit (Bld) [Volume fraction]40.9 %36.3 - 47.1 %[facility]- [place], KYHemoglobin (Bld) [Mass/Vol]12.8 g/dL11.9 - 15.1 g/dLCleveland Clinic Luther[facility] Hospital- [place], KYImmature granulocytes (Bld) [#/Vol]0.04 10*3/uLC[facility]- [place], KYImmature granulocytes (Bld) [#/Vol] 0 %0[facility]- [place], KYLymphocytes (Bld) [#/Vol]2.84 10*3/[facility]- [place], KYLymphocytes/100 WBC (Bld)27 %24 - 43 %[facility]- [place], KYMCH (RBC) [Entitic mass]29.0 pg25.2 - 33.5 pgC[facility]- [place], KYMCHC (RBC) [Mass/Vol]31.3 g/dL28.4 - 34.8 g/dLC[facility] Clinic [facility]- [place], KYMCV (RBC) [Entitic vol]92.5 fL82.6 - 102.9 fL [facility]- [place], KYMonocytes (Bld) [#/Vol]0.75 10*3/[facility]- [place], [place] Monocytes/100 WBC (Bld)7 %3 - 12 %[facility]- [place], KYPlatelet mean volume (Bld) [Entitic vol]9.1 fL8.1 - 13.5 fLCleveland Clinic [facility] Hospital- [place], KYPlatelets (Bld) [#/Vol]262 10*3/[facility]- [place], KYPlatelets (Bld) [#/Vol]NOT REPORTEDC[facility]- [place], KYRBC (Bld) [#/Vol]4.42 10*6/uL3.95 - 5.11 m/[facility]- [place], KYRBC morphology finding Nom (Bld)NOT REPORTEDC[facility] Clinic [facility]- [place], KYSegmented neutrophils/100 WBC (Bld)62 %36 - 65 %[facility]- [place], KYSegs Absolute6.55[facility]- [place], KYWBC (Bld) [#/Vol]0.0 10*3/uL0.0 per 100 [facility]CTrumbull [facility]- [place], [place] WBC (Bld) [#/Vol]10.5 10*3/uLMercy Health- [place], KYWBC MorphologyNOT REPORTEDMer Health- [place], KYMicroscopic Urinalysison [id number], UANOT REPORTEDNone [facility]- [place], KYBacteria, UANOT REPORTEDNoneMey Health- [place], KYCasts UA10 TO 20 HYALINE Reference range defined for non-centrifuged specimen.[facility]- [place], KYCrystals, UANOT REPORTEDNone /HPFMercy Health- [place], KYEpithelial Cells UA5 TO 10[facility]- [place], KYMucus, UANOT REPORTEDNoneMercy Health- [place], KYOther Observations UANOT REPORTEDNOT REQ.[facility]- [place], KYRBC (U) [#/Vol]2 TO 5 [facility]- [place], KYComment on above:Reference range defined for non-centrifuged specimen.Renal Epithelial, UANOT REPORTED0 /HPFMercy Health- [place], KYTrichomonas, UANOT REPORTEDNoneMer[facility]- [place], KYWBC, UA20 TO 50[facility]- [place], KYYeast, UANOT REPORTEDNoneMercy [facility]- [place], [place]-[facility]- [place], KYUrinalysis Reflex to Cultureon [id number] UrineNegativeNEGATIVEMercy Health- [place], KYColor, UAYELLOWYELLOWMercy Health- [place], KYGlucose, UrNegativeNEGATIVEMercy Health- [place], KYInterpretation and review of laboratory resultsAbnormalMercy Health- [place], [place] Ketones Ql (U)NegativeNEGATIVEMercy Health- [place], KYLeukocyte esterase Test strip Ql (U)TRACEAbnormalNEGATIVEMercy Health- [place], KYNitrite, UrineNegativeNEGATIVE [facility]- [place], KYpH, UA5.0[facility]- [place], KYProtein (U) [Mass/Vol]Negative NEGATIVEMercy Health- [place], KYSpecific [place], UA1.034HighMercy Health- [place], [place] Turbidity UACLOUDYAbnormalCLEARMercy Health- [place], KYUrinalysis CommentsNOT REPORTEDC[facility]- [place], KYUrine HgbNegativeNEGATIVECleveland [facility]- [place], [place] Urobilinogen, UrineNormalNormalGeorgetown Behavioral Hospital, KYBasic Metabolic Panel w/ Reflex to MGon [id number] gap [Moles/Vol]10 mmol/L9 - 17 mmol/LMdiley ridge medical centery Health- [place], KYBun/Cre RatioNOT REPORTEDMerProsser Memorial Hospital- [place], KYCalcium [Mass/Vol]8.7 mg/dL8.6 - 10.4 mg/dLOhiohealth Grady Memorial [facility] [place], KYChloride [Moles/Vol]105 mmol/L98 - 107 mmol/LMercy Health- [place], KYCO2 [Moles/Vol]24 mmol/L20 - 31 mmol/LMercy [facility]- [place], KYCreatinine [Mass/Vol]0.54 mg/dL0.5 - 0.9 mg/dLCleveland Clinic Luther[facility] Hospital- [place], KYGFR >60>60 mL/minOhiohealth Grady Memorial Hospital [place], KYGFR Non->60>60 mL/minOhiohealth Grady Memorial Hospital [place], KYGFR/1.73 sq M predicted among non-blacks MDRD (S/P/Bld) [Vol rate/Area]NOT REPORTEDGeorgetown Behavioral Hospital, KYGFR/1.73 sq M predicted among non-blacks MDRD (S/P/Bld) [Vol rate/Area][facility], KYComment on above:Average GFR for 30-39 years old: 107 mL/min/1.73sq m Chronic Kidney Disease: <60 mL/min/1.73sq m Kidney failure: <15 mL/min/1.73sq m eGFR calculated using average adult body mass. Additional eGFR calculator available at: http://www.Appreciation Engine.[employer]/multiple_crcl_2012.htm Glucose [Mass/Vol]85 mg/dL70 - 99 mg/dLCleveland Clinic Luther[facility] Hospital- [place], KYPotassium [Moles/Vol] 3.8 mmol/L3.7 - 5.3 mmol/LMtrumbull memorial hospital Health- [place], KYSodium [Moles/Vol]139 mmol/L135 - 144 mmol/LMercy Health- [place], KYUrea nitrogen [Mass/Vol]7 mg/dL6 - 20 mg/dLCleveland Clinic Luther[facility] Hospital- [place], KYCBC auto differentialon [id number] (Bld) [#/Vol]0.03 10*3/uLC[facility]- [place], KYBasophils/100 WBC (Bld)0 %0 - 2 %[facility]- [place], [place] Differential TypeNOT REPORTEDC[facility]- [place], KYEosinophils (Bld) [#/Vol]0.20 10*3/[facility]- [place], KYEosinophils/100 WBC (Bld)2 %1 - 4 %[facility]- [place], KYErythrocyte distribution width (RBC) [Ratio]11.9 %11.8 - 14.4 %[facility]- [place], KYHematocrit (Bld) [Volume fraction]33.1 %Low36.3 - 47.1 %[facility]- [place], KYHemoglobin (Bld) [Mass/Vol]10.5 g/dLLow11.9 - 15.1 g/dLCleveland Clinic [facility]- [place], [place] Immature granulocytes (Bld) [#/Vol]0.04 10*3/[facility]- [place], KYImmature granulocytes (Bld) [#/Vol]0 %0[facility]- [place], KYInterpretation and review of laboratory resultsAbnormalC[facility]- [place], KYLymphocytes (Bld) [#/Vol]3.58 10*3/[facility]- [place], KYLymphocytes/100 WBC (Bld)35 %24 - 43 %[facility]- [place], KYMCH (RBC) [Entitic mass]29.6 pg25.2 - 33.5 pgC[facility]- [place], KYMCHC (RBC) [Mass/Vol]31.7 g/dL28.4 - 34.8 g/dLC[facility]- [place], KYMCV (RBC) [Entitic vol]93.2 fL82.6 - 102.9 fLCleveland Clinic [facility]- [place], KYMonocytes (Bld) [#/Vol]0.64 10*3/uLC[facility]- [place], KYMonocytes/100 WBC (Bld)6 %3 - 12 %[facility]- [place], KYPlatelet mean volume (Bld) [Entitic vol]9.4 fL8.1 - 13.5 fLCleveland Clinic [facility]- [place], KYPlatelets (Bld) [#/Vol]195 10*3/uLC[facility]- [place], KYPlatelets (Bld) [#/Vol] NOT REPORTEDOhiohealth [facility]ady [facility] Hospital [place], KYRBC (Bld) [#/Vol]3.55 10*6/uLLow3.95 - 5.11 m/uL [facility]- [place], KYRBC morphology finding Nom (Bld)NOT REPORTEDC[facility]- [place], KYSegmented neutrophils/100 WBC (Bld)57 %36 - 65 %[facility]- [place], KYSegs Absolute5.63[facility]- [place], KYWBC (Bld) [#/Vol]0.0 10*3/uL0.0 per 100 WBCCleveland Clinic [facility]- [place], KYWBC (Bld) [#/Vol]10.1 10*3/uLC[facility]- [place], KYWBC Morphology NOT REPORTEDGeorgetown Behavioral Hospital, SCBasi Metabolic Panel w/ Reflex to MGon [id number] gap [Moles/Vol]9 mmol/L9 - 17 mmol/LMtrumbull memorial hospital Health- [place], KYBun/Cre RatioNOT REPORTEDC[facility]- [place], KYCalcium [Mass/Vol]8.7 mg/dL8.6 - 10.4 mg/dL [facility]- [place], KYChloride [Moles/Vol]105 mmol/L98 - 107 mmol/LMtrumbull memorial hospital Health- [place], KYCO2 [Moles/Vol]22 mmol/L20 - 31 mmol/LMtrumbull memorial hospital [facility]- [place], KYCreatinine [Mass/Vol]0.63 mg/dL0.5 - 0.9 mg/dLCleveland Clinic [facility]- [place], KYGFR >60 >60 mL/minC[facility] Clinic [facility]- [place], KYGFR Non->60>60 mL/minTrumbull Regional Medical Center [facility]- [place], KYGFR/1.73 sq M predicted among non-blacks MDRD (S/P/Bld) [Vol rate/Area] [facility], SCComment on above:Average GFR for 30-39 years old: 107 mL/min/1.73sq m Chronic Kidney Disease: <60 mL/min/1.73sq m Kidney failure: <15 mL/min/1.73sq m eGFR calculated using average adult body mass. Additional eGFR calculator available at: http://www.Animal Kingdom/multiple_crcl_2012.htm GFR/1.73 sq M predicted among non-blacks MDRD (S/P/Bld) [Vol rate/Area]NOT REPORTEDC[facility]- [place], KYGlucose [Mass/Vol]87 mg/dL70 - 99 mg/dLC[facility] Clinic [facility]- [place], KYPotassium [Moles/Vol]4.1 mmol/L3.7 - 5.3 mmol/LMFire[facility]- [place], KYSodium [Moles/Vol]136 mmol/L135 - 144 mmol/LMFirelands Regional [facility]- [place], KYUrea nitrogen [Mass/Vol]7 mg/dL6 - 20 mg/dLCleveland Clinic [facility]- [place], KYCBC auto differentialon [id number] (Bld) [#/Vol]0.05 10*3/uLC[facility]- [place], KYBasophils/100 WBC (Bld)1 %0 - 2 %[facility], KYDifferential TypeNOT REPORTEDOhiohealth [facility]ady [facility] [place], KYEosinophils (Bld) [#/Vol]0.19 10*3/uLC[facility]- [place], [place] Eosinophils/100 WBC (Bld)2 %1 - 4 %[facility]- [place], KYErythrocyte distribution width (RBC) [Ratio]12.1 %11.8 - 14.4 %[facility] [place], KYHematocrit (Bld) [Volume fraction]34.6 %Low36.3 - 47.1 %[facility]- [place], KYHemoglobin (Bld) [Mass/Vol]10.6 g/dLLow11.9 - 15.1 g/dLOhiohealth Grady Memorial Hospital [place], KYImmature granulocytes (Bld) [#/Vol]0 %0[facility]- [place], KYImmature granulocytes (Bld) [#/Vol]0.04 10*3/uLC[facility]- [place], KYInterpretation and review of laboratory results AbnormalOhiohealth Grady [facility] Hospital [place], KYLymphocytes (Bld) [#/Vol]3.78 10*3/uLHighCleveland Clinic [facility] Hospital- [place], SCLymphocytes/100 WBC (Bld)39 %24 - 43 %[facility]- [place], SAULMCH (RBC) [Entitic mass]29.2 pg25.2 - 33.5 pgC[facility]- [place], SCMCHC (RBC) [Mass/Vol]30.6 g/dL28.4 - 34.8 g/dLC[facility]- [place], SAULMCV (RBC) [Entitic vol] 95.3 fL82.6 - 102.9 fLGeorgetown Behavioral Hospital, SAULMonocytes (Bld) [#/Vol]0.64 10*3/uL [facility]- [place], SAULMonocytes/100 WBC (Bld)7 %3 - 12 %[facility]- [place], [place] Platelet mean volume (Bld) [Entitic vol]9.2 fL8.1 - 13.5 fLGeorgetown Behavioral Hospital, [place] Platelets (Bld) [#/Vol]NOT REPORTEDGeorgetown Behavioral Hospital, SAULPlatelets (Bld) [#/Vol] 199 10*3/uLC[facility]- [place], SCRBC (Bld) [#/Vol]3.63 10*6/uLLow3.95 - 5.11 m/uL [facility], [facility] morphology finding Nom (Bld)NOT REPORTEDGeorgetown Behavioral Hospital SCSegmented neutrophils/100 WBC (Bld)51 %36 - 65 %[facility], SAULSegs Absolute5.05[facility]- [place], SCWBC (Bld) [#/Vol]9.8 10*3/uLGeorgetown Behavioral Hospital, [place] WBC (Bld) [#/Vol]0.0 10*3/uL0.0 per 100 WBCGeorgetown Behavioral Hospital, SCWBC MorphologyNOT REPORTEDC[facility]- [place], SCBasi Metabolic Panel w/ Reflex to MGon 12-15-2019 Anion gap [Moles/Vol]10 mmol/L9 - 17 mmol/LMFirelands [facility]- [place], SCBun/Cre RatioNOT REPORTEDGeorgetown Behavioral Hospital, SCCalcium [Mass/Vol]8.2 mg/dLLow8.6 - 10.4 mg/dLMercy Health- [place], KYChloride [Moles/Vol]105 mmol/L98 - 107 mmol/LMtrumbull memorial hospital Health- [place], [place] CO2 [Moles/Vol]22 mmol/L20 - 31 mmol/LMdiley ridge medical centery [facility]- [place], KYCreatinine [Mass/Vol] 0.63 mg/dL0.5 - 0.9 mg/dLC[facility] Clinic [facility]- [place], KYGFR >60>60 mL/min [facility] [place], KYGFR Non->60>60 mL/minOhiohealth Grady Memorial Hospital [place], [place] GFR/1.73 sq M predicted among non-blacks MDRD (S/P/Bld) [Vol rate/Area][facility], KYComment on above:Average GFR for 30-39 years old: 107 mL/min/1.73sq m Chronic Kidney Disease: <60 mL/min/1.73sq m Kidney failure: <15 mL/min/1.73sq m eGFR calculated using average adult body mass. Additional eGFR calculator available at: http://www.Animal Kingdom/multiple_crcl_2012.htm GFR/1.73 sq M predicted among non-blacks MDRD (S/P/Bld) [Vol rate/Area]NOT REPORTEDGeorgetown Behavioral Hospital, KYGlucose [Mass/Vol]102 mg/tPXnvh22 - 99 mg/dLGeorgetown Behavioral Hospital, KYInterpretation and review of laboratory resultsAbnormalGeorgetown Behavioral Hospital, KYPotassium [Moles/Vol]3.6 mmol/LLow3.7 - 5.3 mmol/LMFirelands [facility]- [place], KYSodium [Moles/Vol]137 mmol/L135 - 144 mmol/LMtrumbull memorial hospital Health- [place], KYUrea nitrogen [Mass/Vol]10 mg/dL6 - 20 mg/dLGeorgetown Behavioral Hospital, KYCBC auto differential on [id number] (Bld) [#/Vol]0.05 10*3/uLMer Health- [place], [place] Basophils/100 WBC (Bld)1 %0 - 2 %[facility]- [place], KYDifferential TypeNOT REPORTEDC[facility]- [place], KYEosinophils (Bld) [#/Vol]0.24 10*3/uLMercy Health- [place], SCEosinophils/100 WBC (Bld)2 %1 - 4 %House, KYErythrocyte distribution width (RBC) [Ratio]12.7 %11.8 - 14.4 %[place], [place] Hematocrit (Bld) [Volume fraction]33.6 %Low36.3 - 47.1 %[place], [place] Hemoglobin (Bld) [Mass/Vol]10.2 g/dLLow11.9 - 15.1 g/dLHouse, [place] Immature granulocytes (Bld) [#/Vol]0 %0House, KYImmature granulocytes (Bld) [#/Vol]0.03 10*3/[place], KYInterpretation and review of laboratory resultsAbnormalHouse, KYLymphocytes (Bld) [#/Vol]3.59 10*3/[facility], SCLymphocytes/100 WBC (Bld)34 %24 - 43 %House, KYMCH (RBC) [Entitic mass]29.4 pg25.2 - 33.5 pgHouse, KYMCHC (RBC) [Mass/Vol]30.4 g/dL28.4 - 34.8 g/dLHouse, KYMCV (RBC) [Entitic vol]96.8 fL82.6 - 102.9 fLHouse, KYMonocytes (Bld) [#/Vol]0.54 10*3/[facility], SCMonocytes/100 WBC (Bld)5 %3 - 12 %House, KYPlatelet mean volume (Bld) [Entitic vol]9.1 fL8.1 - 13.5 fLHouse, KYPlatelets (Bld) [#/Vol]213 10*3/[facility], SCPlatelets (Bld) [#/Vol] NOT REPORTEDC[facility] (Bld) [#/Vol]3.47 10*6/uLLow3.95 - 5.11 m/uL [facility]- [place], KYRBC morphology finding Nom (Bld)NOT REPORTEDTrumbull Regional [facility]- [place], KYSegmented neutrophils/100 WBC (Bld)58 %36 - 65 %[facility]- [place], KYSegs Absolute6.11[facility]- [place], KYWBC (Bld) [#/Vol]0.0 10*3/uL0.0 per 100 WBCCleveland Clinic [facility] Hospital- [place], KYWBC (Bld) [#/Vol]10.6 10*3/uLTrumbull Regional Medical Center [facility]- [place], KYWBC Morphology NOT REPORTEDTrumbull Regional Medical [facility]- [place], KYCalcium, Random Urineon [id number], Ur 22.2 mg/dLCleveland Clinic Luther[facility] Hospital- [place], KYComment on above:No normal range established.EKG 12 leadon [id number] Dmrn71NLTVhxqd Health- [place], KYP Pasd88hgqolomGqiuf Health- [place], KYP-R [id number] [facility]- [place], KYQ-T Fvjmyjdf515 [facility]- [place], KYQRS Rypiasjo76 msMtrumbull memorial hospital Health- [place], KYQTc Calculation (Bazett)450 msMdiley ridge medical centery Health- [place], KYR Tmcd94xmoazzwFivbq Health- [place], KYT Aayg34agiancoHhqls Health- [place], KYVentricular [id number] Health- [place], KYNormal sinus rhythm Normal ECG When compared with ECG of 20-NOV-2014 00:15, No significant change wa s foundTrumbull Regional Medical Center [facility]- [place], KYEdi, Mhpn Incoming Ekg Results From [facility] - 12/15/2019 1:33 PM EDT Normal sinus rhythm Normal ECG When compared with ECG of 20-NOV-2014 00:15, No significant change was foundTrumbull Regional Medical Center [facility]- [place], KYOtheron [id number] pelvic ultrasound. Normal Doppler flow within the ovaries.[facility]- [place], [place] Michael, Mhpn Incoming Radiant Results From [facility] - 12/15/2019 12:35 PM EDT EXAMINATION: PELVIC [...] ultrasound. Normal Doppler flow within the ovaries. YohobuySAULEXAMINATION: PELVIC ULTRASOUND; DOPPLER EVALUATION 12/15/2019 TECHNIQUE: Transvaginal [...] within normal limits. There is normal arterial andvenous doppler flow. Free Fluid: Small amount of free fluid cul-de-sac likely physiologic in nature.YohobuyERICA RENAL COMPLETEon [id number]: RETROPERITONEAL ULTRASOUND OF THE KIDNEYS AND URINARY BLADDER 12/15/2019 COMPARISON: 12/13/2019 CT HISTORY: ORDERING SYSTEM PROVIDED HISTORY: follow up TECHNOLOGIST PROVIDED HISTORY: follow up FINDINGS: Kidneys: The right kidney measures 10.6 cm in length and the left kidney measures 10.9 cm in length. Kidneys demonstrate normal cortical echogenicity. No evidence of hydronephrosis orintrarenal stones. Bladder: Unremarkable appearance of the bladder.YohobuyFreda Mhpn Incoming Radiant Results From [employer] - 12/15/2019 12:33 PM EDT EXAMINATION: RETROPERITONEAL [...] ultrasound of the kidneys and urinary bladder. [facility], KYUnremarkable ultrasound of the kidneys and urinary bladder. [facility], KYBasic Metabolic Panel w/ Reflex to MGon [id number] gap [Moles/Vol]8 mmol/LLow9 - 17 mmol/LMMercy Health [address] [facility], KYBun/Cre RatioNOT REPORTED [facility], KYCalcium [Mass/Vol]8.4 mg/dLLow8.6 - 10.4 mg/dLGeorgetown Behavioral Hospital, KYChloride [Moles/Vol]106 mmol/L98 - 107 mmol/[facility], KYCO2 [Moles/Vol]24 mmol/L20 - 31 mmol/[facility], KYCreatinine [Mass/Vol]0.74 mg/dL0.5 - 0.9 mg/dLGeorgetown Behavioral Hospital, KYGFR >60>60 mL/minGeorgetown Behavioral Hospital, KYGFR Non->60>60 mL/minGeorgetown Behavioral Hospital, KYGFR/1.73 sq M predicted among non-blacks MDRD (S/P/Bld) [Vol rate/Area]NOT REPORTEDGeorgetown Behavioral Hospital, KYGFR/1.73 sq M predicted among non-blacks MDRD (S/P/Bld) [Vol rate/Area][facility], KYComment on above:Average GFR for 30-39 years old: 107 mL/min/1.73sq m Chronic Kidney Disease: <60 mL/min/1.73sq m Kidney failure: <15 mL/min/1.73sq m eGFR calculated using average adult body mass. Additional eGFR calculator available at: http://www.Appreciation Engine.[employer]/multiple_crcl_2011.htm Glucose [Mass/Vol]96 mg/dL70 - 99 mg/dLGeorgetown Behavioral Hospital, KYInterpretation and review of laboratory resultsAbnormOhioHealth Doctors Hospital- [place], KYPotassium [Moles/Vol]3.8 mmol/L3.7 - 5.3 mmol/LMFirelands [facility]- [place], KYSodium [Moles/Vol]138 mmol/L135 - 144 mmol/LMFirelands [facility]- [place], KYUrea nitrogen [Mass/Vol]15 mg/dL6 - 20 mg/dLGeorgetown Behavioral Hospital, KYCBC auto differentialon [id number] (Bld) [#/Vol]0.23 10*3/uLCleveland Clinic [facility] [place], KYBasophils/100 WBC (Bld)2 %0 - 2 %[facility], KYDifferential TypeNOT REPORTEDGeorgetown [facility]al Hospital, KYEosinophils (Bld) [#/Vol] 0.57 10*3/uLC[facility] [place], KYEosinophils/100 WBC (Bld)5 %High1 - 4 %[facility], KYErythrocyte distribution width (RBC) [Ratio]12.6 %11.8 - 14.4 % [facility], KYHematocrit (Bld) [Volume fraction]37.2 %36.3 - 47.1 %[facility], KYHemoglobin (Bld) [Mass/Vol]11.5 g/dLLow11.9 - 15.1 g/dLGeorgetown Behavioral Hospital, KYImmature granulocytes (Bld) [#/Vol]0.00 10*3/uLC[facility]- [place], KYImmature granulocytes (Bld) [#/Vol]0 %0[facility], KYInterpretation and review of laboratory resultsAbnoCommunity Regional Medical Center [place], KYLymphocytes (Bld) [#/Vol]4.10 10*3/uLC[facility]- [place], KYLymphocytes/100 WBC (Bld)36 %24 - 44 % [facility]- [place], KYMCH (RBC) [Entitic mass]29.3 pg25.2 - 33.5 pgCleveland Clinic [facility]- [place], KYMCHC (RBC) [Mass/Vol]30.9 g/dL28.4 - 34.8 g/dLGeorgetown Behavioral Hospital, KYMCV (RBC) [Entitic vol]94.7 fL82.6 - 102.9 fLGeorgetown Behavioral Hospital, KYMonocytes (Bld) [#/Vol]0.80 10*3/uLGeorgetown Behavioral Hospital, KYMonocytes/100 WBC (Bld)7 %1 - 7 %[facility], KYMorphology Rudy (Bld) [Interp]NormalGeorgetown Behavioral Hospital, KYPlatelet mean volume (Bld) [Entitic vol]9.2 fL8.1 - 13.5 fLGeorgetown Behavioral Hospital, KYPlatelets (Bld) [#/Vol]238 10*3/uLGeorgetown Behavioral Hospital, KYPlatelets (Bld) [#/Vol]NOT REPORTED [facility], KYRBC (Bld) [#/Vol]3.93 10*6/uLLow3.95 - 5.11 m/uLGeorgetown Behavioral Hospital, KYRBC morphology finding Nom (Bld)NOT REPORTEDGeorgetown Behavioral Hospital, [place] Segmented neutrophils/100 WBC (Bld)50 %36 - 66 %[facility], KYSegs Absolute5.70[facility], KYWBC (Bld) [#/Vol]11.4 10*3/uLHighGeorgetown Behavioral Hospital, KYWBC (Bld) [#/Vol]0.0 10*3/uL0.0 per 100 WBCGeorgetown Behavioral Hospital, KYWBC MorphologyNOT REPORTEDGeorgetown Behavioral Hospital, KYCT ABDOMEN PELVIS WO CONTRASTon [id number], [facility] Incoming Radiant Results From [employer] - 12/14/2019 12:08 AM EDT EXAMINATION: CT [...] nondistended. Uterus and adnexal regions appear normal. Peritoneum/Retroperitoneum: Trace amount of free fluid is seen within the cul-de-sac, likely physiologic. No aneurysm formation is present. No pathological adenopathy is present. Bones/Soft Tissues: No acute osseous abnormality is present. IMPRESSION: 1. Faint medullary calcinosis noted bilaterally, without discrete calculi or hydronephrosis 2. Prior cholecystectomy 3. Trace amount of free fluid seen within the cul-de-sac, likely physiologic 4. Normal appendix [facility], [facility] CT OF THE ABDOMEN AND PELVIS WITHOUT CONTRAST 12/13/2019 10:32 pm TECHNIQUE: CT of theabdomen and pelvis was performed without the administration of intravenous contrast. Multiplanar reformatted images are provided for review. Dose modulation, iterative reconstruction, and/or weight ba sed adjustment of the mA/kV was utilized to reduce the radiation dose to as low as reasonably achievable. COMPARISON: January 10, 2019 HISTORY: ORDERING SYSTEM PROVIDED HISTORY: Query stones TECHNOLOGIST PROVIDED HISTORY: Query stones Is the patient ?->No Reason for Exam: query stones Acuity: Acute Type of Exam: Initial Abdominal pain FINDINGS: Lower Chest: The lung bases are clear. Or gómez: The liver, spleen, pancreas, and adrenal glands [...] nondistended. Uterus and adnexal regions appear normal. Perit oneum/Retroperitoneum: Trace amount of free fluid is seen within the cul-de-sac, likely physiologic. No aneurysm formation is present. No pathological adenopathy is present. Bones/Soft Tissues: No acute osseous abnormality is present.[facility], SC1. Faint medullary calcinosis noted bilaterally, without discrete calculi or hydronephrosis 2. Prior cholecystectomy 3. Trace amount of free fluid seen within the cul-de-sac, likely physiologic 4. Normal appendixHouse, KYCulture, Urineon [id number] SIGNIFICANT GROWTHHouse, KYSpecial RequestsNOT REPORTEDHouse, [place] Specimen Description.Random UrineHouse, KYPOC Glucose Fingerstickon [id number] [Mass/Vol]110 mg/qZWchd45 - 105 mg/dLHouse, [place] Interpretation and review of laboratory resultsAbnormalHouse, KYPTH, [place] [id number] Ptdhah87.28 pg/mL15 - 65 pg/mLHouse, KYComment on above:SAMPLES FROM PATIENTS ROUTINELY RECEIVING HIGH DOSE BIOTIN THERAPY MAY SHOW FALSELY DEPRESSED RESULTS. ADDITIONAL INFORMATION MAY BE REQUIRED FOR DIAGNOSIS. Procalcitoninon [id number] ng/mL<0.09House, [place] Comment on above: Suspected Sepsis: <0.50 ng/mL Low likelihood of sepsis. 0.50-2.00 ng/mL Increased likelihood of sepsis. Antibiotics encouraged. >2.00 ng/mL High risk of sepsis/shock. Antibiotics strongly encouraged. Suspected Lower Resp Tract Infections: <0.24 ng/mL Low likelihood of bacterial infection. >0.24 ng/mL Increased likelihood of bacterial infection. Antibiotics encouraged. With successful antibiotic therapy, PCT levels should decrease rapidly. (Half- life of 24 to 36 hours.) Procalcitonin values from samples collected within the first 6 hours of systemic infection may still be low. Retesting may be indicated. Values from day 1 and day 4 can be entered into the Change in Procalcitonin Calculator (www.agsawe-hge-hpxfkshhvj.com) to determine the patient's Mortality Risk Prognosis In healthy neonates, plasma Procalcitonin (PCT) concentrations increase gradually after , reaching peak values at about 24 hours of age then decrease to normal values below 0.5 ng/mL by 48-72 hours of age. Vitamin D 25 Hydroxyon 39-85-8214Wweagoxfqpbblj and review of laboratory results AbnormalMerPropanc Health- [place], KYVit D, 25-Koflopv93.7 ng/mLLow30 - 100 ng/mLMercy Health- [place], KYComment on above: Reference Range: Vitamin D status Range Deficiency <20 ng/mL Mild Deficiency 20-30 ng/mL Sufficiency 30-100 ng/mL Toxicity >100 ng/mL BASIC METABOLIC PANELon 22-93-3069Ckdht gap [Moles/Vol]8 mmol/LLow9 - 17 mmol/L [facility] [place], KYBun/Cre RatioNOT REPORTEDMercy Health- [place], KYCalcium [Mass/Vol]8.7 mg/dL8.6 - 10.4 mg/dLMercy Health- [place], KYChloride [Moles/Vol]104 mmol/L98 - 107 mmol/LMercy Health- [place], KYCO2 [Moles/Vol]25 mmol/L20 - 31 mmol/L [facility] [place], KYCreatinine [Mass/Vol]0.62 mg/dL0.5 - 0.9 mg/dLMercy Health- [place], KYGFR >60>60 mL/minMercy Health- [place], KYGFR Non->60>60 mL/minMercy Health- [place], KYGFR/1.73 sq M predicted among non- blacks MDRD (S/P/Bld) [Vol rate/Area]NOT REPORTEDMercy Health- [place], KYGFR/1.73 sq M predicted among non-blacks MDRD (S/P/Bld) [Vol rate/Area][facility] [place], [place] Comment on above:Average GFR for 30-39 years old: 107 mL/min/1.73sq m Chronic Kidney Disease: <60 mL/min/1.73sq m Kidney failure: <15 mL/min/1.73sq m eGFR calculated using average adult body mass. Additional eGFR calculator available at: http://www.[place]/multiple_crcl_2012.htm Glucose [Mass/Vol]95 mg/dL70 - 99 mg/dLMercy Health- [place], KYInterpretation and review of laboratory resultsAbnormalMercy Health- [place], KYPotassium [Moles/Vol]4.0 mmol/L3.7 - 5.3 mmol/LMFirelands [facility]- [place], KYSodium [Moles/Vol]137 mmol/L135 - 144 mmol/LMFirelands Regional Medical [facility]- [place], KYUrea nitrogen [Mass/Vol]13 mg/dL6 - 20 mg/dLGeorgetown Behavioral Hospital, KYCBC WITH AUTO DIFFERENTIALon 49-54-9958Llrieiaar (Bld) [#/Vol]0.04 10*3/uLOhiohealth Grady [facility] [place], KYBasophils/100 WBC (Bld)0 %0 - 2 %[facility], KYDifferential TypeNOT REPORTEDCleveland [facility]- [place], KYEosinophils (Bld) [#/Vol]0.24 10*3/uLOhiohealth Grady Memorial Hospital [place], KYEosinophils/100 WBC (Bld)2 %1 - 4 %[facility], SCErythrocyte distribution width (RBC) [Ratio]12.6 %11.8 - 14.4 %[facility], KYHematocrit (Bld) [Volume fraction]37.7 %36.3 - 47.1 %[facility], [place] Hemoglobin (Bld) [Mass/Vol]12.1 g/dL11.9 - 15.1 g/dLGeorgetown Behavioral Hospital, KYImmature granulocytes (Bld) [#/Vol]0.05 10*3/[facility], KYImmature granulocytes (Bld) [#/Vol]0 %0[facility], KYInterpretation and review of laboratory resultsAbnoAvita Health System [facility], KYLymphocytes (Bld) [#/Vol]4.14 10*3/uLHigh [facility], KYLymphocytes/100 WBC (Bld)36 %24 - 43 %[facility], [place] MCH (RBC) [Entitic mass]29.7 pg25.2 - 33.5 pgOhiohealth Grady [facility] Hospital [place], KYMCHC (RBC) [Mass/Vol]32.1 g/dL28.4 - 34.8 g/dLGeorgetown Behavioral Hospital, KYMCV (RBC) [Entitic vol] 92.6 fL82.6 - 102.9 fLCleveland Clinic Lutheran Hospital- [place], KYMonocytes (Bld) [#/Vol]0.70 10*3/uL [facility]- [place], KYMonocytes/100 WBC (Bld)6 %3 - 12 %[facility]- [place], [place] Platelet mean volume (Bld) [Entitic vol]9.1 fL8.1 - 13.5 fLCleveland Clinic Luther[facility] Hospital- [place], [place] Platelets (Bld) [#/Vol]NOT REPORTEDOhiohealth [facility]ady [facility] Hospital [place], KYPlatelets (Bld) [#/Vol] 261 10*3/uLCleveland Clinic [facility]- [place], KYRBC (Bld) [#/Vol]4.07 10*6/uL3.95 - 5.11 m/uL [facility]- [place], SAULRBC morphology finding Nom (Bld)NOT REPORTEDOhiohealth [facility]ady [facility] Hospital [place], SAULSegmented neutrophils/100 WBC (Bld)56 %36 - 65 %[facility]- [place], SAULSegs Absolute6.48[facility]- [place], KYWBC (Bld) [#/Vol]11.7 10*3/uLHighCleveland Clinic [facility] Hospital- [place], KYWBC (Bld) [#/Vol]0.0 10*3/uL0.0 per 100 WBCCleveland Clinic Luther[facility]- [place], KYWBC MorphologyNOT REPORTEDCleveland Clinic [facility]- [place], KYHCG Qualitative, Serumon 28-29-9406jQE QualNegativeNEGATIVEOhiohealth Grady Memorial Hospital [place], SAULComment on above:Specimens with hCG levels near the threshold of the test (25 mIU/mL) may give a negative or indeterminate result. In such cases, another test should be performed with a new specimen in 48-72 hours. If early is suspected clinically in this setting, correlation with quantitative serum b-hCG level is suggested. Parature has confirmed the use of plasma for this test. This has not been cleared or approved by the U.S. Food and Drug Administration. The FDA has determined that such clearance is not necessary. Microscopic Urinalysison 22-45-5139Lsnetfmnq, UANOT REPORTEDNoneMetoledo hospital Health- [place], KYBacteria, UANOT REPORTEDNoneMeMercy Health [facility]- [place], KYCasts UANOT REPORTEDOhiohealth [facility] [place], KYCrystals, UAFEWAbnormalNone /HPFMercy Health- [place], KYCrystals, UA CALCIUM OXALATEAbnormalNone /HPFMercy Health- [place], KYEpithelial Cells UANoneMercy Health- [place], KYInterpretation and review of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 specimen.[facility]- [place], KYColor, UAYELLOWYELLOWMercy Health- [place], KYCrystals UANOT REPORTEDNone /HPFMercy Health- [place], KYEpithelial Cells UA50 TO 100[facility]- [place], KYGlucose, UrNegativeNEGATIVEMercy Health- [place], [place] Interpretation and review of laboratory resultsAbnormalMercy Health- [place], [place] Ketones Ql (U)TRACEAbnormalNEGATIVEMercy Health- [place], KYLeukocyte esterase Test strip Ql (U)MODERATEAbnormalNEGATIVEMercy Health- [place], KYMucus, UANOT REPORTED NoneMercy Health- [place], KYNitrite, UrineNegativeNEGATIVEMercy Health- [place], KYOther Observations UANOT REPORTEDNOT REQ.[facility]- [place], KYpH, UA6.5[facility] [place], KYProtein (U) [Mass/Vol]TRACEAbnormalNEGATIVEMercy Health- [place], KYRBC (U) [#/Vol]2 TO 5[facility] [place], KYComment on above:Reference range defined for non-centrifuged specimen.Renal Epithelial, UrineNOT REPORTED0 /HPFMercy Health- [place], KYSpecific [place], UA1.028[facility]- [place], KYTrichomonas, UANOT REPORTED NoneMercy Health- [place], KYTurbidity UATURBIDAbnormalCLEARMercy Health- [place], KYUrine HgbTRACEAbnormalNEGATIVEMercy Health- [place], KYUrobilinogen, UrineNormalNormal [facility] [place], KYWBC, UA50 TO 100[facility]- [place], KYYeast, UANOT REPORTED NoneMercy Health- [place], KY-[facility]- [place], KYVAGINITIS DNA PROBEon 01-08-2019 Direct ExamMethod of testing is a DNA probe intended for detection and identification of Judi species, Gardnerella vaginalis, and Trichomonas vaginalis nucleic acid in vaginal fluid specimens from patients with symptoms of vaginitis/vaginosis.[facility]- [place], KYDirect ExamPositiveAbnormalMercy Health- [place], SCInterpretation and review of laboratory resultsAbnoAvita Health System Bucy[facility], SCSpecial RequestsNOT [facility], SAULSpecimen Description.VAGINAGeorgetown Behavioral Hospital, SCCBC WITH AUTO DIFFERENTIALon 12-19-2018 Basophils (Bld) [#/Vol]0.06 10*3/[facility], KYBasophils/100 WBC (Bld)0 %0 - 2 %[facility], SCDifferential TypeNOT [facility], SC Eosinophils (Bld) [#/Vol]0.15 10*3/[facility], SCEosinophils/100 WBC (Bld)1 %1 - 4 %[facility], SCErythrocyte distribution width (RBC) [Ratio] 12.7 %11.8 - 14.4 %[facility], SCHematocrit (Bld) [Volume fraction]41.6 % 36.3 - 47.1 %[facility], SCHemoglobin (Bld) [Mass/Vol]13.6 g/dL11.9 - 15.1 g/dLGeorgetown Behavioral Hospital, SCImmature granulocytes (Bld) [#/Vol]0 %0[facility]- [place], SCImmature granulocytes (Bld) [#/Vol]0.06 10*3/[facility], [place] Interpretation and review of laboratory resultsAbnoAvita Health System Bucy[facility], [place] Lymphocytes (Bld) [#/Vol]2.73 10*3/[facility], SAULLymphocytes/100 WBC (Bld)16 %Low24 - 43 %[facility], KYMCH (RBC) [Entitic mass]29.9 pg25.2 - 33.5 pgGeorgetown Behavioral Hospital, SCMCHC (RBC) [Mass/Vol]32.7 g/dL28.4 - 34.8 g/dLGeorgetown Behavioral Hospital, SCMCV (RBC) [Entitic vol]91.4 fL82.6 - 102.9 fLGeorgetown Behavioral Hospital, [place] Monocytes (Bld) [#/Vol]0.95 10*3/uLMercy Health- [place], KYMonocytes/100 WBC (Bld)6 %3 - 12 %[facility] [place], KYPlatelet mean volume (Bld) [Entitic vol]9.3 fL8.1 - 13.5 fLMercy Health- [place], KYPlatelets (Bld) [#/Vol]288 10*3/uLMercy Health- [place], KYPlatelets (Bld) [#/Vol]NOT REPORTEDTrumbull [facility]- [place], KYRBC (Bld) [#/Vol]4.55 10*6/uL3.95 - 5.11 m/uLMercy Health- [place], KYRBC morphology finding Nom (Bld)NOT REPORTEDTrumbull Regional Medical Center Health- [place], KYSegmented neutrophils/100 WBC (Bld)77 %High36 - 65 % [facility]- [place], KYSegs Sysaayju45.04HighMer Health- [place], KYWBC (Bld) [#/Vol] 0.0 10*3/uL0.0 per 100 WBCTrumbull Regional [facility] Center [facility]- [place], KYWBC (Bld) [#/Vol]17.0 10*3/uLHigh [facility]- [place], KYWBC MorphologyNOT REPORTEDMer Health- [place], KYComprehensive Metabolic Panelon [id number] [Mass/Vol]3.9 g/dL3.5 - 5.2 g/dLTrinity Health System Twin [facility] Centercy [facility]- [place], KYAlbumin/Globulin [Mass ratio]0.9 {ratio}LowMer Health- [place], KYALP [Catalytic activity/Vol]123 U/LHigh35 - 104 U/LMercy Health- [place], KYALT [Catalytic activity/Vol]13 U/L5 - 33 U/LMercy Health- [place], KYAnion gap [Moles/Vol]12 mmol/L9 - 17 mmol/LMercy Health- [place], KYAST [Catalytic activity/Vol]13 U/L<32[facility] [place], KYBilirubin Ql (U)0.62 mg/dL0.3 - 1.2 mg/dLMercy Health- [place], KYBun/Cre RatioNOT REPORTEDMer Health- [place], KYCalcium [Mass/Vol]9.4 mg/dL8.6 - 10.4 mg/dLTrinity Health System [facility] Centercy [facility]- [place], KYChloride [Moles/Vol]104 mmol/L98 - 107 mmol/LMMercy Health St. [facility], KYCO2 [Moles/Vol]19 mmol/LLow20 - 31 mmol/LMChillicothe Hospital [place], KYCreatinine [Mass/Vol]0.63 mg/dL0.5 - 0.9 mg/dLGeorgetown Behavioral Hospital, KYGFR >60>60 mL/minGeorgetown Behavioral Hospital, KYGFR Non- >60>60 mL/minGeorgetown Behavioral Hospital, KYGFR/1.73 sq M predicted among non-blacks MDRD (S/P/Bld) [Vol rate/Area]NOT REPORTEDGe[facility], [place] GFR/1.73 sq M predicted among non-blacks MDRD (S/P/Bld) [Vol rate/Area][facility], KYComment on above:Average GFR for 30-39 years old: 107 mL/min/1.73sq m Chronic Kidney Disease: <60 mL/min/1.73sq m Kidney failure: <15 mL/min/1.73sq m eGFR calculated using average adult body mass. Additional eGFR calculator available at: http://www.[place]/multiple_crcl_2012.htm Glucose [Mass/Vol]115 mg/iSJiui62 - 99 mg/dLGeorgetown Behavioral Hospital, KYInterpretation and review of laboratory resultsAbnormalGeorgetown Behavioral Hospital, KYPotassium [Moles/Vol]4.2 mmol/L3.7 - 5.3 mmol/LMMercy Health St. Charles [facility], KYProtein [Mass/Vol]8.4 g/dLHigh6.4 - 8.3 g/dLGeorgetown Behavioral Hospital, KYSodium [Moles/Vol]135 mmol/L135 - 144 mmol/LMMercy Health St. [facility], KYUrea nitrogen [Mass/Vol]9 mg/dL6 - 20 mg/dLGeorgetown Behavioral Hospital, KYHCG Qualitative, Serumon [id number] QualNegativeNEGATIVEGeorgetown Behavioral Hospital, KYComment on above:Specimens with hCG levels near the threshold of the test (25 mIU/mL) may give a negative or indeterminate result. In such cases, another test should be performed with a new specimen in 48-72 hours. If early is suspected clinically in this setting, correlation with quantitative serum b-hCG level is suggested. Parature has confirmed the use of plasma for this test. This has not been cleared or approved by the U.S. Food and Drug Administration. The FDA has determined that such clearance is not necessary. Microscopic Urinalysison [id number], UANOT REPORTEDNoneMercy Health- [place], KYBacteria, UAMODERATEAbnormalNoneMercy Health- [place], KYCasts UAMercy Health- [place], KYCrystals UANOT REPORTEDNone /HPFMercy Health- [place], KYEpithelial Cells UA2 TO 5[facility] [place], KYInterpretation and review of laboratory resultsAbnormal [facility] [place], KYMucus, UANOT REPORTEDNoneMer[facility]- [place], KYOther Observations UANOT REPORTEDNOT REQ.[facility]- [place], KYRBC (U) [#/Vol]5 TO 10 [facility]- [place], KYComment on above:Reference range defined for non-centrifuged specimen.Renal Epithelial, UrineNOT REPORTED0 /HPFMercy Health- [place], [place] Trichomonas, UANOT REPORTEDNoneMercy Health- [place], KYWBC, UATOO NUMEROUS TO COUNT [facility] [place], KYYeast, UANOT REPORTEDNoneMercy [facility]- [place], KY-[facility]- [place], KYUrinalysis Reflex to Cultureon [id number] UrineNegativeNEGATIVE [facility]- [place], KYColor, UAYELLOWYELLOWMercy Health- [place], KYGlucose, UrNegative NEGATIVEMercy Health- [place], KYInterpretation and review of laboratory results AbnormalMercy Health- [place], KYKetones Ql (U)NegativeNEGATIVEMercy Health- [place], [place] Leukocyte esterase Test strip Ql (U)MODERATEAbnormalNEGATIVEMercy Health- [place], [place] Nitrite, UrinePositiveAbnormalNEGATIVEMercy Health- [place], KYpH, UA5.5[facility] [place], KYProtein (U) [Mass/Vol]3+AbnormalNEGATIVEMercy Health- [place], KYSpecific [place], UA1.017[facility]- [place], KYTurbidity UATURBIDAbnormalCLEARMercy Health- [place], KYUrinalysis CommentsNOT REPORTEDMercy Health- [place], KYUrine HgbLARGEAbnormal NEGATIVETrumbull Regional Medical Center Health- [place], KYUrobilinogen, UrineNormalNormalTrumbull Regional Medical Center [facility]- [place], [place] Vital Signs Date TimeVital SignValuePerforming [id number] 11:18-0400 Diastolic blood klqiyeyc01 mm[Hg]Katlin Porterers DO Work Phone: [facility]03-27-2025 11:18-0400 Heart rate77 /minRoxanne Fernandez DO Work Phone: [phone] [place], [place] 3654903-27-2025 11:18-0400 Respiratory rate18 /minRoxsimone Fernandez DO Work Phone: [phone] [place], [place] 3654903-27-2025 11:18-0400 SaO2% (BldA) [Mass fraction]98 %Katlin Porterers DO Work Phone: [phone]03-27-2025 11:18-0400 Systolic blood uxahqqmo542 mm[Hg]Katlin Fernandez DO Work Phone: [phone] [place], [place] 3654903-27-2025 08:38-0400 Body mbbwyj999.86 cmRoxanne Fernandez DO Work Phone: [phone] [place], [place] 3654903-27-2025 08:38-0400 Body douikr56.7 kgRoxanne Fernandez DO Work Phone: [phone]02-26-2025 09:42-0500 Body guwzhd358.86 cmMemorial Health System02-26-2025 09:42-0500Body mass index (BMI) [Ratio]44.6 kg/x2SsarjqrimMemorial Health System02-26-2025 09:42-0500Body tjallt935.2 kgMemorial Health System12-11-2024 13:24-0500Body mass index (BMI) [Ratio]43.42 kg/l3Vjtjnee Visci DO Work Phone: [facility] CenterFvnwnxsrqf31-12-4049 13:24-0500Body vbxlyw01.52 kgRichard Visci DO Work Phone: [facility] CenterJqtxsqzspu64-17-4235 13:24-0500Diastolic blood senglbnz09 mm[Hg]Anthony Visci DO Work Phone: [facility] CenterWqlrexihdw58-99-7214 13:24-0500Systolic blood rriawdon020 mm[Hg]Anthony Visci DO Work Phone: [facility] CenterXgsgxmczdr65-47-0493 14:46-0500Body vughst794.86 cmMemorial Health System12-03-2024 14:46-0500Body mass index (BMI) [Ratio]44.5 kg/e8CbhdlcredMemorial Health System12-03-2024 14:46-0500Body yjxhbzhwwqp71.1 [degF][facility]12-03-2024 14:46-0500Body bnqiqn93.96 kgMemorial Health System12-03-2024 14:46-0500Diastolic blood dzelpiua11 mm[Hg][facility]12-03-2024 14:46-0500 SaO2% (BldA) [Mass fraction]99 %[facility]12-03-2024 14:46-0500Systolic blood zdwoirpx003 mm[Hg][facility] 01-10-2024 12:17-0500Body mass index (BMI) [Ratio]43.42 kg/g5Inykxjj Visci DO Work Phone: [facility] CenterMouqaqzjxk92-73-0061 12:17-0500Body .52 kgAnthony Visci DO Work Phone: [facility] CenterZxotlrzuaf40-85-9093 12:17-0500Diastolic blood atjdsmkt13 mm[Hg]Anthony Visci DO Work Phone: [facility] CenterLyakmmjasj65-05-5383 12:17-0500Systolic blood qpoeivvz069 mm[Hg]Anthony Visci DO Work Phone: [facility] CenterZsxflvpxpe76-22-0828 08:31-0500Body mass index (BMI) [Ratio]43.42 kg/h8Cuegzta Visci DO Work Phone: [facility] CenterZqmeaivoeq03-66-9823 08:31-0500Body htbali65.52 kgAnthony Visci DO Work Phone: [facility] CenterTmijejaxmv33-35-6405 08:31-0500Diastolic blood hjljdexc92 mm[Hg]Anthony Visci DO Work Phone: [facility] CenterNkasnmvxzl67-62-9502 08:31-0500Systolic blood grngpbpa653 mm[Hg]Anthony Visci DO Work Phone: [facility] CenterDwwuxoowii54-02-8987 12:00-0400Body temperature 97.9 [degF]Jaelyn Renae MD Work Phone: [facility]08-31-2024 12:00-0400Diastolic blood jaskanhi76 mm[Hg]Jaelyn Renae MD Work Phone: [facility]08-31-2024 12:00-0400Heart rate77 /Everardo Renae MD Work Phone: [facility]08-31-2024 12:00-0400 Respiratory rate18 /Everardo Renae MD Work Phone: [facility]08-31-2024 12:00-5243VfH9% (BldA) [Mass fraction]96 %Jaelyn Renae MD Work Phone: [facility]08-31-2024 12:00-0400Systolic blood ajloxmry966 mm[Hg]Jaelyn Renae MD Work Phone: [facility]08-08-2024 02:51-0400Diastolic blood bexkuoay13 mm[Hg]DO Katlin Fernandez Work Phone: [facility]08-08-2024 02:51-0400 Heart rate82 /minDO Katlin Fernandez Work Phone: [facility]08-08-2024 02:51-0400 Respiratory rate16 /minDO Katlin Fernandez Work Phone: [facility]08-08-2024 02:51-0400 SaO2% (BldA) [Mass fraction]98 %DO Katlin Fernandez Work Phone: [phone] [place], [place] 9190108-08-2024 02:51-0400 Systolic blood mm[Hg]DO Katlin Fernandez Work Phone: [phone] [place], [place] 9190108-07-2024 22:46-0400 Body dmucoz077.86 cmDO Katlin Fernandez Work Phone: [phone] [place], [place] 9190108-07-2024 22:46-0400 Body tnhhbytjxqk45.7 [degF]DO Katlin Fernandez Work Phone: [phone] [place], [place] 9190108-07-2024 22:46-0400 Body cttohc54.4 kgDO Katlin Fernandez Work Phone: [phone] [place], [place] 9190107-25-2024 03:00-0400 Diastolic blood ziiywzec20 mm[Hg]DO Katlin Fernandez Work Phone: [phone] [place], [place] 9190107-25-2024 03:00-0400 Heart rate77 /minDO Katlin Fernandez Work Phone: [phone] [place], [place] 9190107-25-2024 03:00-0400 Respiratory rate14 /minDO Katlin Fernandez Work Phone: [phone] [place], [place] 9190107-25-2024 03:00-0400 SaO2% (BldA) [Mass fraction]97 %DO Katlin Fernandez Work Phone: [phone] [place], [place] 9190107-25-2024 03:00-0400 Systolic blood cmrorflu871 mm[Hg]DO Katlin Fernandez Work Phone: [phone] [place], [place] 9190107-25-2024 00:21-0400 Body .86 cmDO Katlin Fernandez Work Phone: [phone] [place], [place] 9190107-25-2024 00:21-0400 Body [degF]DO Katlin Fernandez Work Phone: [phone] [place], [place] 9190107-25-2024 00:21-0400 Body phziak41.1 kgDO Katlin Fernandez Work Phone: [facility]07-08-2024 22:00-0400 Diastolic blood ziubuzfz09 mm[Hg]Kaylinn Dokken [address] [place], [place] 1650107-08-2024 22:00-0400Heart rate76 /minKaylinn Dokken [address] [place], [place] 1650107-08-2024 22:00-0400Mean blood ellssost601 mm[Hg]Kaylinn Dokken [address] [place], [place] 1650107-08-2024 22:00-0400 Respiratory rate18 /minKaylinn Dokken [address] [place], [place] 1650107-08-2024 22:00-2894FsP7% (BldA) [Mass fraction]99 %Kaylinn Dokken [address] [place], [place] 1650107-08-2024 22:00-0400 Systolic blood sgqyzhlp078 mm[Hg]Kaylinn Dokken [address] [place], [place] 1650107-08-2024 21:30-0400 Diastolic blood mxgxaqbk177 mm[Hg]Kaylinn Dokken [address] [place], [place] 1650107-08-2024 21:30-0400Heart rate77 /minKaylinn Dokken [address] [place], [place] 4758407-08-2024 21:30-0400Mean blood mm[Hg]Kaylinn Dokken [address] [place], [place] 1650107-08-2024 21:30-0400 Respiratory rate20 /minKaylinn Dokken [address] [place], [place] 1650107-08-2024 21:30-4186OiQ7% (BldA) [Mass fraction]100 %Kaylinn Dokken [address] [place], [place] 1650107-08-2024 21:30-0400 Systolic blood lfzajztn145 mm[Hg]Kaylinn Dokken [address] [place], [place] 1650107-08-2024 21:00-0400Heart rate82 /minKaylinn Dokken [address] [place], [place] 1650107-08-2024 20:43-0400Body yfxhlsahhrx91.88 [degF]Kaylinn Dokken [address] [place], [place] 1650107-08-2024 20:43-0400 Diastolic blood wupxvgwp21 mm[Hg]Kaylinn Dokken [address] [place], [place] 1650107-08-2024 20:43-0400Heart rate89 /minKaylinn Dokken [address] [place], [place] 1650107-08-2024 20:43-0400 Systolic blood azcorvpd249 mm[Hg]Kaylinn Dokken [address] [place], [place] 1650107-01-2024 23:12-0400 Diastolic blood hxneuqqh759 mm[Hg]Kaylinn Dokken [address] [place], [place] 1650107-01-2024 23:12-0400Heart rate76 /minKaylinn Dokken [address] [place], [place] 1650107-01-2024 23:12-0400 Respiratory rate18 /minKaylinn Dokken [address] [place], [place] 1650107-01-2024 23:12-7925OdQ7% (BldA) [Mass fraction]97 %Kaylinn Dokken [address] [place], [place] 1650107-01-2024 23:12-0400 Systolic blood uxtjaloo317 mm[Hg]Kaylinn Dokken [address] [place], [place] 1650107-01-2024 22:24-0400 Diastolic blood mqufbamc434 mm[Hg]Kaylinn Dokken [address] [place], [place] 1650107-01-2024 22:24-0400Heart rate69 /minKaylinn Dokken [address] [place], [place] 1650107-01-2024 22:24-0400Mean blood syrraxcv353 mm[Hg]Kaylinn Dokken [address] [place], [place] 1650107-01-2024 22:24-0400 Respiratory rate17 /minKaylinn Dokken [address] [place], [place] 1650107-01-2024 22:24-6980BmT9% (BldA) [Mass fraction]99 %Kaylinn Dokken [address] [place], [place] 1650107-01-2024 22:24-0400 Systolic blood mm[Hg]Kaylinn Dokken [address] [place], [place] 1650107-01-2024 20:30-0400 Diastolic blood ugnafweb62 mm[Hg]Kaylinn Dokken [address] [place], [place] 1650107-01-2024 20:30-0400Heart rate73 /minKaylinn Dokken [address] [place], [place] 1650107-01-2024 20:30-0400Mean blood mm[Hg]Kaylinn Dokken [address] [place], [place] 1650107-01-2024 20:30-0400 Respiratory rate18 /minKaylinn Dokken [address] [place], [place] 1650107-01-2024 20:30-7194YkP3% (BldA) [Mass fraction]98 %Jorge Oliva [address]07-01-2024 20:30-0400 Systolic blood [id number] mm[Hg]Jorge Oliva [address] [place], [place] 1650107-01-2024 19:05-0400Body fmiujkhgucf44.7 [degF]Jorge Oliva [address] [place], [place] 1650107-01-2024 19:05-0400Heart rate95 /minJorge Oliva [address] [place], [place] 1650106-30-2024 09:17-0400Body olajwqpofwz13.6 [degF]Jass Meek [address] [place], [place] 1650106-30-2024 09:17-0400 Diastolic blood ejxfwkzn321 mm[Hg]Jass Meek [address] [place], [place] 1650106-30-2024 09:17-0400Heart rate95 /sherylJass Meek [address] [place], [place] 1650106-30-2024 09:17-0400 Respiratory rate18 /Michelle Meek [address] [place], [place] 1650106-30-2024 09:17-9816PhD4% (BldA) [Mass fraction]99 %Jass Meek [address] [place], [place] 1650106-30-2024 09:17-0400 Systolic blood fkzpsszi132 mm[Hg]Jass Meek [address] [place], [place] 1650105-25-2024 08:04-0400Body vzbgty206.67 cmDO Katlin Fernandez Work Phone: [facility]05-25-2024 08:04-0400 Body qcykoj29 kgDO Katlin Fernandez Work Phone: [facility]05-25-2024 08:02-0400 Body lbmaofiuytu09 [degF]DO Katlin Fernandez Work Phone: 1(125)[address] [place], [place] 9190105-25-2024 08:02-0400 Diastolic blood ibyvicza60 mm[Hg]DO Katlin Fernandez Work Phone: 1(065)[address] [place], [place] 9190105-25-2024 08:02-0400 Heart rate72 /minDO Katlin Fernandez Work Phone: 1419)[address] [place], [place] 9190105-25-2024 08:02-0400 Respiratory rate18 /minDO Katlin Fernandez Work Phone: 1(814)[address] [place], [place] 9190105-25-2024 08:02-0400 SaO2% (BldA) [Mass fraction]99 %DO Katlin Fernandez Work Phone: 1(576)[address] [place], [place] 9190105-25-2024 08:02-0400 Systolic blood pgaukoiv222 mm[Hg]DO Katlin Fernandez Work Phone: 1(024)[address] [place], [place] 9190105-18-2024 18:13-0400 Diastolic blood solvnaxs95 mm[Hg]DO Katlin Fernandez Work Phone: 1(718)[address] [place], [place] 9190105-18-2024 18:13-0400 Heart rate82 /minDO Katlin Fernandez Work Phone: 1(476)[address] [place], [place] 9190105-18-2024 18:13-0400 Respiratory rate20 /minDO Katlin Fernandez Work Phone: 1(895)[address] [place], [place] 9190105-18-2024 18:13-0400 SaO2% (BldA) [Mass fraction]98 %DO Katlin Fernandez Work Phone: 1(008)[address] [place], [place] 9190105-18-2024 18:13-0400 Systolic blood pfvzdmku976 mm[Hg]DO Katlin Fernandez Work Phone: 1(973)[address] [place], [place] 9190105-18-2024 15:40-0400 Body jqvboj806.86 cmDO Katlin Fernandez Work Phone: 1(098)[address] [place], [place] 9190105-18-2024 15:40-0400 Body gmxymeolhzw43 [degF]DO Katlin Fernandez Work Phone: 1(739)[address]05-18-2024 15:40-0400 Body jbzqfi79.25 kgDO Katlin Fernandez Work Phone: 1(122)[address] [place], [place] 9190105-10-2024 02:57-0400 Diastolic blood mm[Hg]DO Katlin Fernandez Work Phone: 1(283)[address]05-10-2024 02:57-0400 Heart rate88 /minDO Katlin Fernandez Work Phone: 1(895)[address] [place], [place] 9190105-10-2024 02:57-0400 Respiratory rate16 /minDO Katlin Fernandez Work Phone: 1(772)[address] [place], [place] 9190105-10-2024 02:57-0400 SaO2% (BldA) [Mass fraction]98 %DO Katlin Fernandez Work Phone: 1(194)[address] [place], [place] 9190105-10-2024 02:57-0400 Systolic blood openobtz529 mm[Hg]DO Katlinaleena Fernandez Work Phone: 1(773)[address] [place], [place] 9190105-10-2024 00:47-0400 Body zpseig803.86 cmDO Katlin Fernandez Work Phone: 1(165)[address]05-10-2024 00:47-0400 Body .6 [degF]DO Katlin Fernandez Work Phone: 1(106)[address]05-10-2024 00:47-0400 Body .5 kgDO Katlin Fernandez Work Phone: 1(326)[address]04-17-2024 13:03-0400 Diastolic blood frzovtes55 mm[Hg]DO Katlin Fernandez Work Phone: 1(225)[address]04-17-2024 13:03-0400 Heart rate64 /minDO Katlin Fernandez Work Phone: 1(532)[address]04-17-2024 13:03-0400 Respiratory rate12 /minDO Katlin Fernandez Work Phone: 1(258)[address] [place], [place] 9190104-17-2024 13:03-0400 SaO2% (BldA) [Mass fraction]99 %DO Katlin Fernandez Work Phone: 1(297)[address] [place], [place] 9190104-17-2024 13:03-0400 Systolic blood ejagyppt477 mm[Hg]DO Katlin Fernandez Work Phone: 1(657)[address] [place], [place] 9190104-17-2024 10:55-0400 Body qcpbdy123.86 cmDO Katlin Fernandez Work Phone: 1(433)[address] [place], [place] 9190104-17-2024 10:55-0400 Body pnnoglglroi56 [degF]DO Katlin Fernandez Work Phone: 1(908)[address] [place], [place] 9190104-17-2024 10:55-0400 Body gtoisx13 kgDO Katlin Fernandez Work Phone: 1(147)[address] [place], [place] 9190103-26-2024 16:30-0400 Diastolic blood mdyclnzb51 mm[Hg]DO Katlin Fernandez Work Phone: 1(596)[address] [place], [place] 9190103-26-2024 16:30-0400 Heart rate83 /minDO Katlin Fernandez Work Phone: 1(898)[address] [place], [place] 9190103-26-2024 16:30-0400 Respiratory rate16 /minDO Katlin Fernandez Work Phone: 1(991)[address] [place], [place] 9190103-26-2024 16:30-0400 SaO2% (BldA) [Mass fraction]94 %DO Katlin Fernandez Work Phone: 1(239)[address] [place], [place] 9190103-26-2024 16:30-0400 Systolic blood pvguiptv280 mm[Hg]DO Katlin Fernandez Work Phone: 1(173)[address] [place], [place] 9190103-26-2024 15:39-0400 Body hrreoxwoywf05.4 [degF]DO Katlin Fernandez Work Phone: 1(728)[address]03-26-2024 15:04-0400 Inhaled oxygen flow rate8 L/minDO Katlin Fernandez Work Phone: 1(056)[address] [place], [place] 9190103-26-2024 13:30-0400 Body eumssr451.86 cmDO Katlin Fernandez Work Phone: 1(306)[address] [place], [place] 9190103-26-2024 13:30-0400 Body mass index (BMI) [Ratio]40.4 kg/m2DO Katlin Fernandez Work Phone: 1(592)[address] [place], [place] 9190103-26-2024 13:30-0400 Body doakkb00.71 kgDO Katlin Fernandez Work Phone: 1(685)[address] [place], [place] 9190103-20-2024 13:00-0400 Body vxulcczsmog59.2 [degF]DO Katlin Fernandez Work Phone: 1(121)[address] [place], [place] 9190103-20-2024 13:00-0400 Diastolic blood ypmpseff99 mm[Hg]DO Katlin Fernandez Work Phone: 1(979)[address] [place], [place] 9190103-20-2024 13:00-0400 Heart rate91 /JonoO Katlin Fernandez Work Phone: 1(883)[address] [place], [place] 9190103-20-2024 13:00-0400 Respiratory rate20 /JonoO Katlin Fernandez Work Phone: 1(625)[address] [place], [place] 9190103-20-2024 13:00-0400 SaO2% (BldA) [Mass fraction]96 %DO Katlin Fernandez Work Phone: 1(170)[address] [place], [place] 9190103-20-2024 13:00-0400 Systolic blood djbrzdme713 mm[Hg]DO Katlin Fernandez Work Phone: 1(648)[address] [place], [place] 9190103-20-2024 11:05-0400 Body njqepr311.86 cmDO Katlin Fernandez Work Phone: 1(709)[address] [place], [place] 9190103-20-2024 11:05-0400 Body yvirrj12.6 kgDO Katlin Fernandez Work Phone: 1(991)[address] [place], [place] 9190103-16-2024 17:30-0400 Diastolic blood zivbgjyg24 mm[Hg]DO Katlin Fernandez Work Phone: 1(462)[address] [place], [place] 9190103-16-2024 17:30-0400 Heart rate79 /minDO Katlin Fernandez Work Phone: 1(050)[address] [place], [place] 9190103-16-2024 17:30-0400 Respiratory rate18 /minDO Katlin Fernandez Work Phone: 1(097)[address] [place], [place] 9190103-16-2024 17:30-0400 SaO2% (BldA) [Mass fraction]97 %DO Katlin Fernandez Work Phone: 1(349)[address] [place], [place] 9190103-16-2024 17:30-0400 Systolic blood zuyfinnn652 mm[Hg]DO Katlin Fernandez Work Phone: 1(076)[address] [place], [place] 9190103-16-2024 12:55-0400 Body vrnggo688.86 cmDO Katlinaleena Porterers Work Phone: 1(765)[address] [place], [place] 9190103-16-2024 12:55-0400 Body icpggaomjyn09.6 [degF]DO Katlin Fernandez Work Phone: 1(681)[address] [place], [place] 9190103-16-2024 12:55-0400 Body .15 kgDO Katlin Fernandez Work Phone: 1(239)[address] [place], [place] 9190102-20-2024 10:54-0500 Body hybqao153.86 cmDO Katlin Fernandez Work Phone: 1(322)[address] [place], [place] 9190102-20-2024 10:54-0500 Body kzeirgjdgsb51.5 [degF]DO Katlin Fernandez Work Phone: 1(199)[address] [place], [place] 9190102-20-2024 10:54-0500 Body jkemoa39.7 kgDO Katlin Fernandez Work Phone: 1(958)[address] [place], [place] 9190102-20-2024 10:54-0500 Diastolic blood mm[Hg]DO Katlin Fernandez Work Phone: 1(728)517-19[facility]02-20-2024 10:54-0500 Heart rate80 /minDO Katlin Fernandez Work Phone: 1(989)978-92[facility]02-20-2024 10:54-0500 Respiratory rate16 /minDO Katlin Fernandez Work Phone: 1(776)950-[address] [place], [place] 3654902-20-2024 10:54-0500 SaO2% (BldA) [Mass fraction]99 %DO Katlin Fernandez Work Phone: 1(171)853-[address] [place], [place] 3654902-20-2024 10:54-0500 Systolic blood dhxbkqiw973 mm[Hg]DO Katlin Fernandez Work Phone: 1(522)869-[address] [place], [place] 3654902-09-2024 11:51-0500 Body nocysd573.86 cmDO Katlin Fernandez Work Phone: 1(756)[address]02-09-2024 11:51-0500 Body wbgypseekgd34.6 [degF]DO Katlin Fernandez Work Phone: 1(932)462-[address] [place], [place] 3654902-09-2024 11:51-0500 Body zzunnh70.55 kgDO Katlin Fernandez Work Phone: 1(305)967-[address] [place], [place] 3654902-09-2024 11:51-0500 Diastolic blood mm[Hg]DO Katlin Fernandez Work Phone: 1(177)616-[address] [place], [place] 3654902-09-2024 11:51-0500 Heart rate77 /minDO Katlin Fernandez Work Phone: 1(432)959-[address] [place], [place] 3654902-09-2024 11:51-0500 Respiratory rate20 /minDO Katlin Fernandez Work Phone: 1(718)[phone]02-09-2024 11:51-0500 SaO2% (BldA) [Mass fraction]95 %DO Katlin Fernandez Work Phone: [facility]02-09-2024 11:51-0500 Systolic blood nzboqtsf424 mm[Hg]DO Katlin Fernandez Work Phone: [facility]12-01-2023 16:24-0500 Body skhpqugswvz89.7 [degF]Jass Fantasma [facility]12-01-2023 16:24-0500 Diastolic blood qlfdpruc37 mm[Hg]Jass Meek [facility]12-01-2023 16:24-0500Heart rate74 /minJass Meek [facility]12-01-2023 16:24-0500 Respiratory rate16 /minJass Meek [facility]12-01-2023 16:24-7226FvR0% (BldA) [Mass fraction]99 %Jass Meek [facility]12-01-2023 16:24-0500 Systolic blood lpcrfhho015 mm[Hg]Jass Meek [facility]11-26-2023 13:48-0500Body ntooumlunjs44.24 [degF]Juan Antonio Hooper [facility]11-26-2023 13:48-0500 Diastolic blood mm[Hg]Juan Antonio Hooper [address] [place], [place] 4758411-26-2023 13:48-0500Heart rate75 /minTim Rufus [facility]11-26-2023 13:48-0500 Respiratory rate14 /minTim Rufus [facility]11-26-2023 13:48-3657OxT4% (BldA) [Mass fraction]100 %Juan Antonio Hooper [address] [place], [place] 4758411-26-2023 13:48-0500 Systolic blood mm[Hg]Juan Antonio Rufus [facility]09-11-2023 16:31-0400Body jychmh379.86 cmDO Katlin Fernandez Work Phone: 1([phone]09-11-2023 16:31-0400 Body lipnkzocjnv71.8 [degF]DO Katlin Fernandez Work Phone: 1(237)[address]09-11-2023 16:31-0400 Body juvqcg21.9 kgDO Katlin Fernandez Work Phone: 1(623)[address]09-11-2023 16:31-0400 Diastolic blood qlwnuvvc49 mm[Hg]DO Katlin Fernandez Work Phone: 1(021)850[facility]40[facility]09-11-2023 16:31-0400 Heart rate84 /minDClair Fernandez Work Phone: 1(710)450-[address] [place], [place] 3654909-11-2023 16:31-0400 Respiratory rate16 /JonoO Katlin Fernandez Work Phone: 1(923)497-[address] [place], [place] 3654909-11-2023 16:31-0400 SaO2% (BldA) [Mass fraction]97 %DO Katlin Fernandez Work Phone: 1(842)[phone]09-11-2023 16:31-0400 Systolic blood adcvxzwl167 mm[Hg]DO Katlin Fernandez Work Phone: 1(381)695-[address] [place], [place] 3654906-30-2023 22:11-0400 Diastolic blood obohtvdw23 mm[Hg]Curt Joaquín [facility]06-30-2023 22:11-0400Heart rate88 /minNoah Joaquín [facility]06-30-2023 22:11-0400Mean blood zkwhlhry776 mm[Hg]Curt Joaquín [address] [place], [place] 1650106-30-2023 22:11-0400 Respiratory rate15 /minNoah Joaquín [address] [place], [place] 1650106-30-2023 22:11-2021KwZ3% (BldA) [Mass fraction]97 %Curt Joaquín [address] [place], [place] 1650106-30-2023 22:11-0400 Systolic blood lpctolsp825 mm[Hg]Curt Joaquín [address] [place], [place] 1650106-30-2023 21:00-0400 Diastolic blood cnatvofu35 mm[Hg]Curt Joaquín [address] [place], [place] 1650106-30-2023 21:00-0400Heart rate89 /minNoah Joaquín [address] [place], [place] 1650106-30-2023 21:00-0400Mean blood dvcuauwe13 mm[Hg]Curt Joaquín [address] [place], [place] 1650106-30-2023 21:00-0400 Respiratory rate16 /minNoah Joaquín [address] [place], [place] 1650106-30-2023 21:00-0400 Systolic blood sqshsgno199 mm[Hg]Curt Joaquín [address] [place], [place] 1650106-30-2023 17:35-0400Body rikntvgeqnn80.6 [degF]Curt Joaquín [address] [place], [place] 1650106-30-2023 17:35-0400 Diastolic blood mm[Hg]Curt Joaquín [address] [place], [place] 1650106-30-2023 17:35-0400Heart rate93 /minNoah Joaquín [address] [place], [place] 1650106-30-2023 17:35-0400 Respiratory rate18 /minNoah Joaquín [address] [place] [address] Obzzdi79-17-9151 17:35-3036UwE6% (BldA) [Mass fraction]97 %Curt Joaquín [facility]06-30-2023 17:35-0400 Systolic blood mm[Hg]Curt Joaquín [facility]05-08-2023 13:00-0400Body fqntux924.94 cmRoxanne Jim Other [facility] [employer] Other [id number] 13:00-0400Body mass index (BMI) [Ratio] 39.41 kg/r7Hdkkipgaleena Fernandez Other [facility] Other 05-08-2023 13:00-0400Body bzuovcoerug95.6 [degF] Katlin Fernandez Other [place] [employer] Other [id number] 13:00-0400Body tuovig92.[address] Other [id number] 13:00-0400Diastolic blood macnhyhp31 mm[Hg] Katlinaleena Fernandez Other [facility] Other 05-08-2023 13:00-0400Respiratory rate18 /minKatlin Fernandez Other Drive Other 05-08-2023 13:00-5577IjX6% (BldA) [Mass fraction]98 % Katlin Fernandez Other Drive Other 05-08-2023 13:00-0400Systolic blood qvymqbhf435 mm[Hg] Katlin Fernandez Other Drive Other [id number] 17:48-0400Body ohzwwpgxggb97.06 [degF]Jass Meek [address] [place], [place] 4758405-03-2023 17:48-0400 Diastolic blood xonsiacm94 mm[Hg]Jass Meek [address] [place], [place] 4758405-03-2023 17:48-0400Heart tefd105 /minJass Meek [address] [place], [place] 4758405-03-2023 17:48-0400 Respiratory rate16 /minJass Meek [address] [place], [place] 4758405-03-2023 17:48-0295EuZ0% (BldA) [Mass fraction]99 %Jass Meek [address] [place], [place] 4758405-03-2023 17:48-0400 Systolic blood fsunhjag167 mm[Hg]Jass Meek [address] [place], [place] 4758404-27-2023 16:05-0400 Diastolic blood brobodrr39 mm[Hg]Juan Antonio Hooper [address] [place], [place] 4758404-27-2023 16:05-0400Heart rate77 /minTim Rufus [address] [place], [place] 4758404-27-2023 16:05-0400Mean blood bgejzlqf508 mm[Hg]Juan Antonio Hooper [address] [place], [place] 4758404-27-2023 16:05-0400 Respiratory rate16 /minTim Rufus [address] [place], [place] 4758404-27-2023 16:05-0778RwW6% (BldA) [Mass fraction]97 %Juan Antonio Rufus [address] [place], [place] 4758404-27-2023 16:05-0400 Systolic blood mm[Hg]Juan Antonio Rufus [address] [place], [place] 4758404-27-2023 13:00-0400 Diastolic blood ioadqljs10 mm[Hg]Juan Antonio Hooper [address]04-27-2023 13:00-0400Heart rate78 /minJuan Antonio Hooper [address] [place], [place] 4758404-27-2023 13:00-0400Mean blood mm[Hg]Juan Antonio Hooper [address]04-27-2023 13:00-0400 Respiratory rate18 /[facility]Un[facility]uf[facility] [address]04-27-2023 13:00-9031HrV1% (BldA) [Mass fraction]95 %Juan Antonio Hooper [address]04-27-2023 13:00-0400 Systolic blood ykgfgkvs491 mm[Hg]Juan Antonio Hooper [address]04-27-2023 11:43-0400Body vopphpmkxae76.42 [degF]Juan Antonio Hooper [address]04-27-2023 11:43-0400 Diastolic blood theahcdi71 mm[Hg]Juan Antonio Hooper [address]04-27-2023 11:43-0400Heart rate88 /minJuan Antonio Hooper [address] [place], [place] 4758404-27-2023 11:43-0400 Respiratory rate20 /minJuan Antonio Hooper [address] [place], [place] 4758404-27-2023 11:43-7733FcE4% (BldA) [Mass fraction]94 %Juan Antonio Hooper [address] [place], [place] 4758404-27-2023 11:43-0400 Systolic blood gjtkgzna055 mm[Hg]Juan Antonio Hooper [address] [place], [place] 4758404-04-2023 10:30-0400Body dmgykv334.94 cmRoxanne Fernandez Other [facility] [employer] Other 04-04-2023 10:30-0400Body mass index (BMI) [Ratio] 40.05 kg/j0IxqphcyKatlin Fernandez Other [place] [employer] Other 04-04-2023 10:30-0400Body drtvbmgdgan92.3 [degF] Katlin Fernandez Other [place] [employer] Other 04-04-2023 10:30-0400Body hsrhab91.16 kgRoxaleena Fernandez Other [place] [employer] Other 04-04-2023 10:30-0400Diastolic blood mm[Hg] Katlin Fernandez Other [place] [employer] Other 04-04-2023 10:30-0400Respiratory rate20 /minKatlin Fernandez Other [place] [employer] Other 04-04-2023 10:30-7390FyT8% (BldA) [Mass fraction]98 % Katlin Fernandez Other [place] [employer] Other 04-04-2023 10:30-0400Systolic blood owrlftbn195 mm[Hg] Katlin Fernandez Other [place] [employer] Other [id number] 11:09-0500Body svikgtmdcby75.88 [degF]Kanu Kelly [facility]03-07-2023 11:09-0500 Diastolic blood mm[Hg]Kanu Kelly [facility]03-07-2023 11:09-0500Heart rate91 /minKanu Robe [facility]03-07-2023 11:09-0500 Respiratory rate20 /Malena Kelly [facility]03-07-2023 11:09-0730XuY5% (BldA) [Mass fraction]99 %Kanu Kelly [facility]03-07-2023 11:09-0500 Systolic blood caoclmia549 mm[Hg]Kanu Kelly [facility]02-14-2023 10:15-0500Body rilojn775.94 cmRoxanmike Fernandez Other [facility] Other [id number] 10:15-0500Body mass index (BMI) [Ratio] 40.05 kg/g1Lxrtitfaleena Fernandez Other [employer] Other 02-14-2023 10:15-0500Body zgupogudsxi22.7 [degF] Katlin Fernandez Other [employer] Other 02-14-2023 10:15-0500Body repjcn99.16 kgKatlin Fernandez Other [facility] Other 02-14-2023 10:15-0500Diastolic blood pxkbkjqa46 mm[Hg] Katlin Fernandez Other Drive Other 02-14-2023 10:15-0500Respiratory rate22 /minKatlin Fernandez Other Drive Other 02-14-2023 10:15-6717KnR2% (BldA) [Mass fraction]97 % Katlin Fernandez Other Drive Other 02-14-2023 10:15-0500Systolic blood qxegbdvz064 mm[Hg] Katlin Fernandez Other [employer] Other 01-14-2023 00:01-0500Nursing Progress Note Reason Other: medicated for headache. lights dim. [facility]01[facility]2023 23:06-0500Diastolic blood gicdeick83 mm[Hg] [facility]01-13-2023 23:06-0500Heart rate94 /minUniversity [facility]01-13-2023 23:06-0500Nursing Progress Note ReasonOther: care assumed at this time. pt medicated for anxiety and agitation. [facility] vit[facility] done[facility]01-13-2023 23:06-0500Respiratory rate16 /[facility]20[facility] 23:06-9364SbZ3% (BldA) [Mass fraction]98 %[facility]01-13-2023 23:06-0500Systolic blood myhnfswk460 mm[Hg][facility]01-13-2023 23:00-0500Hourly RoundingUniversity [facility]als [facility]01-13-2023 23:00-0500Promise to ReturnUniversity [facility]als [facility]01-13-2023 22:00-0500Hourly RoundingUniversity [facility]01-13-2023 22:00-0500Promise to ReturnUniversity [facility]01-13-2023 21:00-0500Hourly RoundingUniversity [facility]01-13-2023 21:00-0500Promise to ReturnUniversity [facility]01-13-2023 18:23-0500Body xqnxfazfogz17.88 [degF][facility]01-13-2023 18:23-0500Heart rate89 /minUniversity [facility]01-13-2023 18:23-0500Respiratory rate21 /minUniversity [facility]01-13-2023 18:23-3733TlZ5% (BldA) [Mass fraction]95 %[facility]11-30-2022 14:00-0500Diastolic blood jgmoomde37 mm[Hg][facility]11-30-2022 14:00-0500Heart rate92 /[facility]11-30-2022 14:00-0500[facility]2022 14:00-0500Promise to ReturnUniversity [facility]als [facility]11-30-2022 14:00-0500Respiratory rate18 /[facility] 01-25-2022 14:00-3058MeA6% (BldA) [Mass fraction]99 %[facility]11-30-2022 14:00-0500Systolic blood oflwvpmb053 mm[Hg][facility]11-30-2022 01:00-0500Diastolic blood onkyzzdv04 mm[Hg][facility]11-30-2022 01:00-0500Heart rate99 /[facility]11-30-2022 01:00-0500Hourly RoundingUniversity [facility]als [facility]11-30-2022 01:00-0500Promise to ReturnUniversity [facility]als [facility]11-30-2022 01:00-3307YaW9% (BldA) [Mass fraction]100 %[facility]11-30-2022 01:00-0500Systolic blood mpzezdrx237 mm[Hg][facility]11-30-2022 00:55-0500Heart rate95 /[facility]11-30-2022 00:55-0500Respiratory rate20 /minUniversity [facility]11-30-2022 00:55-8679AgB1% (BldA) [Mass fraction]98 %[facility]11-30-2022 00:03-0500 Body vevjdwkzdii80.96 [degF][facility] 01-25-2022 00:03-0500Diastolic blood mm[Hg][facility]11-30-2022 00:03-0500Heart txff027 /minUniversity [facility]11-30-2022 00:03-0500Systolic blood mm[Hg] [facility]11-14-2022 18:45-0500Blood Pressure LocationClaire Remedios [phone]-Obzvc[address] [place] [address] [employer] Ldsv10-91-8420 18:45-0500Body yyqgtabmjwm96.24 [degF]Olivia Whittaker [phone]-Lircv[address] [place] [address] [employer] Wxsy14-95-7554 18:45-0500Diastolic blood rhyfutsf81 mm[Hg]Olivia Whittaker [phone]-Lmbap[address] [place] [address] [employer] Lsfg11-29-0791 18:45-0500Heart rate83 /minOlivia Whittaker [phone]-Qjnwv[address] [place] [address] [employer] Lxyp40-48-3170 18:45-6103LtK9% (BldA) [Mass fraction]97 %Olivia Whittaker [phone]-QzzmaC[facility]11-14-2022 18:45-0500Systolic blood txybrkyz962 mm[Hg]Olivia Cogar [phone]-QzahwC[facility]11-01-2022 23:40-0400Diastolic blood mm[Hg]Curt Joaquín [facility]11-01-2022 23:40-0400Heart rate86 /minNoah Joaquín [address] [place], [place] 4758411-01-2022 23:40-0400Mean blood qujvxreh596 mm[Hg]Curt Joaquín [address] [place], [place] 4758411-01-2022 23:40-0400 Respiratory rate17 /minNoah Joaquín [facility]11-01-2022 23:40-9061MrK8% (BldA) [Mass fraction]95 %Curt Joaquín [facility]11-01-2022 23:40-0400 Systolic blood bgozpwhm798 mm[Hg]Curt Joaquín [address] [place], [place] 4758411-01-2022 21:15-0400 Diastolic blood hczbtncu81 mm[Hg]Curt Joaquín [facility]11-01-2022 21:15-0400Heart rate90 /minNoah Joaquín [address] [place], [place] 4758411-01-2022 21:15-0400Mean blood oaynsxhl738 mm[Hg]Curt Joaquín [address] [place], [place] 4758411-01-2022 21:15-0400 Respiratory rate19 /minNoah Joaquín [facility]11-01-2022 21:15-7939HuN7% (BldA) [Mass fraction]93 %Curt Joaquín [facility]11-01-2022 21:15-0400 Systolic blood pofjxojy882 mm[Hg]Curt Joaquín [address] [place], [place] 4758411-01-2022 20:31-0400Body jduoonpqtcb69.42 [degF]Curt Joaquín [address] [place], [place] 4758411-01-2022 20:31-0400 Diastolic blood ydcicmlx60 mm[Hg]Crut Joaquín [address] [place], [place] 4758411-01-2022 20:31-0400Heart rate83 /minCurt Joaquín [address] [place], [place] 4758411-01-2022 20:31-0400 Respiratory rate18 /minNohuang Joaquín [address] [place], [place] 4758411-01-2022 20:31-4193LeX5% (BldA) [Mass fraction]98 %Curt Joaquín [facility]11-01-2022 20:31-0400 Systolic blood sftzgmiy183 mm[Hg]Curt Joaquín [address] [place], [place] 4758410-06-2022 10:30-0400Body .94 cmRoxanmike Jim Other [facility] [employer] Other 10-06-2022 10:30-0400Body mass index (BMI) [Ratio] 39.94 kg/v7Izgaytm Rogers Other [place] [employer] Other 10-06-2022 10:30-0400Body brzcarzjwpb46.9 [degF] Katlinaleena Fernandez [facility] [employer] Other 10-06-2022 10:30-0400Body irejqj22.89 kgKatlin Fernandez [facility] [employer] Other 10-06-2022 10:30-0400Diastolic blood xhxrgtid87 mm[Hg] Katlin [facility] [facility] [employer] Other 10-06-2022 10:30-0400Respiratory rate18 /minRoxaleena Fernandez Other [facility] [employer] Other 10-06-2022 10:30-3643ReQ8% (BldA) [Mass fraction]98 % Katlin Fernandez [facility] [employer] Other 10-06-2022 10:30-0400Systolic blood exebnkrb291 mm[Hg] Katlin Fernandez Other [place] [employer] Other [id number] 10:15-0400Diastolic blood taimfxlh17 mm[Hg] Kanu Kelly [facility]09-13-2022 10:15-0400Heart rate76 /minKanu Kelly [facility]09-13-2022 10:15-0400Mean blood dzetvnwa34 mm[Hg]Kanu Kelly [facility]09-13-2022 10:15-0400 Respiratory rate16 /minJorosanna Robe [facility]09-13-2022 10:15-7857QoZ2% (BldA) [Mass fraction]98 %Kanu Kelly [facility]09-13-2022 10:15-0400 Systolic blood oyquyyxt020 mm[Hg]Kanu Kelly [facility]09-13-2022 09:30-0400 Diastolic blood nmrouimv22 mm[Hg]Kanu Kelly [address] [place], [place] 4758409-13-2022 09:30-0400Heart rate75 /minKanu Robe [address] [place], [place] 4758409-13-2022 09:30-0400 Hourly RoundingKanu Robe [address] [place], [place] 4758409-13-2022 09:30-0400 Promise to ReturnKanu Robe [address] [place], [place] 4758409-13-2022 09:30-0400 Respiratory rate18 /minKanu Robe [address]09-13-2022 09:30-2575AaI2% (BldA) [Mass fraction]100 %Kanu Kelly [address]09-13-2022 09:30-0400 Systolic blood mm[Hg]Kanu Kelly [address]09-13-2022 08:45-0402NgV8% (BldA) [Mass fraction]98 %Kanu Kelly [address]09-13-2022 08:30-0400 Diastolic blood rkpikljy39 mm[Hg]Kanu Kelly [address]09-13-2022 08:30-0400Heart rate80 /minKanu Robe [address]09-13-2022 08:30-0400 Hourly RoundingKanu Robe [address] [place], [place] 4758409-13-2022 08:30-0400Mean blood dpaxhcwn68 mm[Hg]Kanu Kelly [address] [place], [place] 4758409-13-2022 08:30-0400 Promise to ReturnKanu Robin [address] [place], [place] 4758409-13-2022 08:30-0400 Respiratory rate16 /minKanu Kelly [address] [place], [place] 4758409-13-2022 08:30-0400 Systolic blood xiubbkef220 mm[Hg]Kanu Kelly [address]09-13-2022 07:45-0400Mean blood mfittnxk53 mm[Hg]Kanu Kelly [address]09-13-2022 07:30-0400 Hourly RoundingKanu Kelly [address] [place], [place] 4758409-13-2022 07:30-0400 Promise to ReturnKanu Kelly [address]09-13-2022 06:44-0400Body .06 [degF]Kanu Kelly [address]08-29-2022 21:12-0400 Diastolic blood wekranxn88 mm[Hg]Curt Joaquín [address] [place], [place] 4758408-29-2022 21:12-0400Heart rate75 /minNoah Joaquín [address] [place], [place] 4758408-29-2022 21:12-0400 Respiratory rate17 /minNoah Joaquín [address] [place], [place] 4758408-29-2022 21:12-0696BmE3% (BldA) [Mass fraction]99 %Curt Joaquín [address] [place], [place] 4758408-29-2022 21:12-0400 Systolic blood znyyeowi124 mm[Hg]Curt Joaquín [address] [place], [place] 4758408-29-2022 19:05-0400Body bjznhyitusj57.6 [degF]Curt Joaquín [address] [place], [place] 4758408-29-2022 19:05-0400 Diastolic blood myktxrvp42 mm[Hg]Curt Joaquín [address] [place], [place] 4758408-29-2022 19:05-0400Heart rate79 /minNoah Joaquín [facility]08-29-2022 19:05-0400 Respiratory rate16 /minNoah Joaquín [address] [place], [place] 4758408-29-2022 19:05-8340OhE0% (BldA) [Mass fraction]97 %Curt Joaquín [address] [place], [place] 4758408-29-2022 19:05-0400 Systolic blood mm[Hg]Curt Joaquín [address] [place], [place] 4758408-29-2022 18:20-0400Blood Pressure LocationClaire Cogar [phone]-Hzizx[address] [place] [address] Con[employer]ient Ldif51-34-3209 18:20-0400Body ogulcckjdyb73.42 [degF]Olivia Cogar [phone]-Jstrh[address] [place] [address] Convenient Amxx77-48-0158 18:20-0400Diastolic blood xlwqooas80 mm[Hg]Olivia Cogar [phone]-Rxscl[address] [place] [address] Con[employer]ient Pucz82-19-7050 18:20-0400Heart rate83 /minClaire Cogar [phone]-Rxeab[address] [place] [address] Con[employer]ient Tqia59-74-6667 18:20-4672QaN7% (BldA) [Mass fraction]98 %Olivia Cogar 110-7261Giqvms-Txkrs[address] [place] [address] Convenient Okwy03-23-0390 18:20-0400Systolic blood rugysguo607 mm[Hg]Olivia Cogar [phone]-Haqxl[address] [place] [address] Convenient Ntxg07-28-4413 09:06-0400Body sprerwstesv96.6 [degF]Kanu [facility]07-26-2022 09:06-0400 Diastolic blood xkatwvcz83 mm[Hg]Kanu Kelly [address] [place], [place] 4758407-26-2022 09:06-0400Heart rate76 /minKanu Kelly [address] [place], [place] 4758407-26-2022 09:06-0400 Respiratory rate18 /minKanu Kelly [address] [place], [place] 4758407-26-2022 09:06-0199LwS3% (BldA) [Mass fraction]99 %Kanu Kelly [address] [place], [place] 4758407-26-2022 09:06-0400 Systolic blood nwbizcxs825 mm[Hg]Kanu Kelly [address]07-19-2022 10:04-0400Body upenwjfbgfa60.42 [degF]Kanu Kelly [address] [place], [place] 4758407-19-2022 10:04-0400 Diastolic blood biaxlsnq77 mm[Hg]Kanu Kelly [address] [place], [place] 4758407-19-2022 10:04-0400Heart rate75 /Malena Kelly [address] [place], [place] 4758407-19-2022 10:04-0400 Respiratory rate16 /minKanu Kelly [address] [place], [place] 4758407-19-2022 10:04-4378MxZ3% (BldA) [Mass fraction]98 %Kanu Kelly [address] [place], [place] 4758407-19-2022 10:04-0400 Systolic blood qhbhgwem286 mm[Hg]Kanu Kelly Machinio [address] [place], [place] 4758405-27-2022 23:29-0400 Nursing Progress Note ReasonOther: discharge instructions given. pt verbalized understanding.Curt Juan [address]05-27-2022 23:29-7577LnM1% (BldA) [Mass fraction]98 %Curt Joaquín [address] [place], [place] 1650105-27-2022 23:28-0400 Diastolic blood tyzcccna80 mm[Hg]Curt Joaquín [address] [place], [place] 1650105-27-2022 23:28-0400Heart rate81 /minNoah Joaquín [address] [place], [place] 1650105-27-2022 23:28-0400 Respiratory rate16 /minNoah Joaquín [address] [place], [place] 1650105-27-2022 23:28-2421GtH8% (BldA) [Mass fraction]98 %Curt Joaquín [address] [place], [place] 1650105-27-2022 23:28-0400 Systolic blood mm[Hg]Curt Joaquín [address] [place], [place] 1650105-27-2022 22:39-0400 Diastolic blood jidofjhp45 mm[Hg]Curt Joaquín [address] [place], [place] 1650105-27-2022 22:39-0400Heart wiah804 /minNoah Joaquín [address] [place], [place] 1650105-27-2022 22:39-0400Mean blood wnpwejey98 mm[Hg]Curt Joaquín [address] [place], [place] 1650105-27-2022 22:39-0400 Respiratory rate18 /minNoah Joaquín [address] [place], [place] 1650105-27-2022 22:39-9276BgB8% (BldA) [Mass fraction]99 %Curt Joaqíun [address] [place], [place] 1650105-27-2022 22:39-0400 Systolic blood bynpkvxg074 mm[Hg]Curt Joaquín [address]05-27-2022 21:30-0400 Diastolic blood vedqvoaz57 mm[Hg]Curt Joaquín [address] [place], [place] 1650105-27-2022 21:30-0400Heart rate97 /minNoah Joaquín [address] [place], [place] 1650105-27-2022 21:30-0400Mean blood iorxpawf32 mm[Hg]Curt Joaquín [address] [place], [place] 1650105-27-2022 21:30-0400 Respiratory rate19 /minNoah Joaquín [address] [place], [place] 1650105-27-2022 21:30-0400 Systolic blood ysshmqpb373 mm[Hg]Curt Joaquín [address] [place], [place] 1650105-27-2022 20:21-0400Body zjzyqhrncey32.7 [degF]Curt Joaquín [address] [place], [place] 1650105-27-2022 20:21-0400Mean blood clgxkusu170 mm[Hg]Curt Joaquín [address] [place], [place] 1650105-26-2022 00:00-0400 Diastolic blood dmqcdqtu11 mm[Hg]Curt Joaquín [address] [place], [place] 4758405-26-2022 00:00-0400Heart rate78 /minNoah Joaquín [address] [place], [place] 4758405-26-2022 00:00-0400Mean blood mm[Hg]Curt Joaquín [address] [place], [place] 1650105-26-2022 00:00-0400 Respiratory rate16 /minNoah Joaquín [address] [place], [place] 1650105-26-2022 00:00-8285BlP1% (BldA) [Mass fraction]96 %Curt Joaquín [address] [place], [place] 4758405-26-2022 00:00-0400 Systolic blood xmkfvyhi252 mm[Hg]Curt Joaquín [address] [place], [place] 4758405-25-2022 23:15-0400Body sxhbtypkkkq98.6 [degF]Curt Joaquín [address]05-25-2022 23:15-0400 Diastolic blood sdoctiny98 mm[Hg]Curt Joaquín [address]05-25-2022 23:15-0400Heart rate81 /minNoah Joaquín [address]05-25-2022 23:15-0400 Respiratory rate20 /minNoah Joaquín [address]05-25-2022 23:15-8327MeP2% (BldA) [Mass fraction]94 %Curt Joaquín [address] [place], [place] 4758405-25-2022 23:15-0400 Systolic blood sbirisbg968 mm[Hg]Curt Joaquín [address] [place], [place] 4758404-20-2022 12:12-0400Blood Pressure LocationBe Lacey [phone]-AwrxiBrecksville [facility] 460328-14-7235 12:12-0400Body bvpwyozzxoo21.88 [degF]Diandra Guzmanz 130-5819Nutjfl-CmpsuBrecksville [facility] 04-20-2022 12:12-0400Diastolic blood qqzkylfz43 mm[Hg] Diandra Guzmanz 215-1549Svazev-SzhcbBrecksville [facility] 04-20-2022 12:12-0400Heart rate86 /minBeth Lacey [phone]-LynioBrecksville [facility] 04-20-2022 12:12-5725OsV6% (BldA) [Mass fraction]95 % Diandra Rahman [phone]-PjnuyBrecksville [facility] 04-20-2022 12:12-0400Systolic blood slzpkibr238 mm[Hg] Diandra Rahman [phone]-YulrtBrecksville [facility] 04-20-2022 10:00-0400Body .94 cmAndra Rowe Other [place] [employer] Other 04-20-2022 10:00-0400Body mass index (BMI) [Ratio] 40.43 kg/l6Ljmfcra Rowe Other [place] [employer] Other 04-20-2022 10:00-0400Body lvuczgqxtsh09.7 [degF]Claudiara Rowe Other [place] [employer] Other 04-20-2022 10:00-0400Body gkcbwe86.07 kgAndra Rowe Other [place] [employer] Other 04-20-2022 10:00-0400Diastolic blood iozpngup29 mm[Hg] Claudiara Rowe Other [place] [employer] Other 04-20-2022 10:00-0400Respiratory rate18 /minClaudia Rowe Other [place] [employer] Other 04-20-2022 10:00-0451FnI4% (BldA) [Mass fraction]98 % Claudiara Rowe Other [employer] Other 04-20-2022 10:00-0400Systolic blood fetkrcgd762 mm[Hg] Claudia Rowe Other [employer] Other 09-29-2021 09:30-0400Body [address]jbxu046.[address] Other 09-29-2021 09:30-0400Body mass index (BMI) [Ratio]39.3 kg/m2Aleena Ryder Other Drive Other 09-29-2021 09:30-0400Body mwoujwhiffn30.9 [degF]Aleena Ryder Other Drive Other 09-29-2021 09:30-0400Body enomcs53.[address] Other 09-29-2021 09:30-0400Diastolic blood pylbnhrj92 mm[Hg] Aleena Ryder Other Drive Other 09-29-2021 09:30-0400Respiratory rate18 /minAleena Ryder Other Drive Other 09-29-2021 09:30-2932XjZ4% (BldA) [Mass fraction]98 % Aleena Ryder Other Drive Other 09-29-2021 09:30-0400Systolic blood niyiookd777 mm[Hg] Aleena Ryder Other Drive Other 08-17-2021 16:00-0400Body ehqnax930.94 cmRoxanmike Fernandez Other [place] [employer] Other 08-17-2021 16:00-0400Body mass index (BMI) [Ratio] 39.86 kg/z2RqyspzlKatlin Fernandez Other [place] [employer] Other 08-17-2021 16:00-0400Body xvfoondecum25 [degF]Katlin Fernandez Other [place] [employer] Other 08-17-2021 16:00-0400Body .71 kgKatlin Fernandez Other [place] [employer] Other 08-17-2021 16:00-0400Diastolic blood ummulgnw35 mm[Hg] Katlin Fernandez Other [place] [employer] Other 08-17-2021 16:00-0400Respiratory rate18 /minKatlin Fernandez Other [place] [employer] Other 08-17-2021 16:00-9431XvH0% (BldA) [Mass fraction]98 % Katlin Fernandez Other [place] [employer] Other 08-17-2021 16:00-0400Systolic blood mm[Hg] Katlin Fernandez Other [place] [employer] Other 01-12-2021 23:21-0500BP Ugsxjfput88 mm[Hg][facility], LP16-37-7358 23:21-0500BP Dhxjrfup054 mm[Hg][facility], TG70-35-8415 23:13-0500BMI (Body Mass Index)39.39 kg/t7Hdszmx Roscoe [facility], AW46-24-3045 23:13-0500Body Gbdvorspeef01.91 [degF]Dale Montoya [facility], JA86-63-9879 23:13-0500Body wvtora91.45 kgJoanshu [facility], UP40-75-0739 23:13-8471Wnhfbw180.9 cmC[facility], [place] 03-09-2020 23:13-0500Pulse (Heart Rate)87 /[facility], [place] 03-09-2020 23:13-0500Pulse Ctyjeahb40 %[facility], SM63-17-3967 23:13-0500Respiratory Rate20 /[facility], XL54-37-8761 08:27-0400Body Bciirserkat26.4 [degF][facility] 12-17-2019 08:27-0400BP Jsxkxkxbj15 mm[Hg][facility] 12-17-2019 08:27-0400BP Pavqwngi782 mm[Hg][facility] 12-17-2019 08:27-0400Pulse (Heart Rate)76 /[facility], [place] 12-17-2019 08:27-0400Pulse Lhiwatpa90 %[facility] 12-17-2019 08:27-0400Respiratory Rate18 /[facility], [place] 12-15-2019 06:15-0400BMI (Body Mass Index)44.35 kg/f5KcwrkdczTrumbull Memorial Hospital, CH72-63-5524 06:15-0400Body .61 kgTrumbull Memorial Hospital, QP29-41-0746 17:30-8822Oagmfc197.9 cmTrumbull [facility], [place] 10-29-2019 17:52-0400Body Egeacehspkw19.1 [degF]Maximo FlahertySelect Medical [facility], TC17-80-5270 17:49-0400BMI (Body Mass Index)36.36 kg/u1AhzhkAd[facility]Health [facility], SO14-70-3178 17:49-0400Body yybccy98.65 kgron [facility], AT79-76-1115 17:49-0400BP Qpagnjtml73 mm[Hg][facility], CO86-50-2698 17:49-0400BP Rjmiqmyo357 mm[Hg][facility], [place] 10-29-2019 17:49-6543Gwmdbh896.9 cmAaron [facility], ML95-87-8050 17:49-0400Pulse (Heart Rate)79 /minAdventHealth [facility], QC58-15-8701 17:49-0400Pulse Iiyawehq39 %[facility], OS05-45-8170 17:49-0400Respiratory Rate16 /minAdventHealth [facility], LG32-36-5307 21:03-0400Body Uxctqaqwcec06.8 [degF][facility], NS59-20-8114 09:14-0500BMI (Body Mass Index)36.15 kg/r3CdnxpxrHugh [facility], [place] 01-14-2019 09:14-0500Body Znepynifslg53.6 [degF]Roya [facility], ZM46-63-2381 09:14-0500Body zhwheq30.19 kgMicMetroHealth [facility], [place] 01-14-2019 09:14-0500BP Vhijlwrsv58 mm[Hg][facility], [place] 01-14-2019 09:14-0500BP Mwjmlrkx354 mm[Hg][facility] 01-14-2019 09:14-0466Gvganu683.9 cmHugh [facility], UX03-24-4109 09:14-0500Pulse (Heart Rate)76 /minHugh [facility], BI79-47-4965 09:14-0500Pulse Laxvigfl88 %Roya [facility], AY62-58-9150 09:14-0500Respiratory Rate16 /minHugh [facility], NI99-24-5907 07:47-0500Body Vtkgaqqryqc26.8 [degF][facility], HW95-16-3497 07:47-0500BP Xogxckxsw80 mm[Hg][facility], DN61-01-3645 07:47-0500BP Pdqccuej363 mm[Hg][facility], NV83-78-0175 07:47-0500Pulse (Heart Rate)61 /minGe[facility] Behavioral [facility], HD16-64-8775 07:47-0500Pulse Eczkmoof84 %[facility], RN74-47-8354 07:47-0500Respiratory Rate16 /minGe[facility]al [facility], QF81-17-3792 12:45-8216Ycmjkl274.4 cmGeorgetown [facility]al [facility], SQ87-66-5743 18:20-0500 BMI (Body Mass Index)35.15 kg/k3IdgudlnGeorgetown Behavioral Hospital, KM61-13-4228 18:20-0500Body aliamo80.65 kgGeorgetown Behavioral Hospital, QS28-41-1442 10:32-0400Pulse (Heart Rate)94 /[facility], SL98-25-2581 09:39-0400BP Wkpqatzqt59 mm[Hg][facility], JG47-14-5807 09:39-0400BP Xndscokq640 mm[Hg][facility], MV72-35-0896 09:37-0400Pulse Mdsneauu04 %[facility], KA31-56-4740 09:37-0400 Respiratory Rate20 /[facility], KR89-41-1496 09:36-0400BMI (Body Mass Index)40.4 kg/m2[facility], XJ08-34-1782 09:36-0400 Body Hheragijsfp08.5 [degF]Lupe [facility], OH41-57-9323 09:36-0400 Body rslyrb73.72 kgLupe [facility], SAUL Encounters Encounter DateEncounter TypeCare ProviderFacilityStart: 12-28-2024 End: 13-97-6509Nuojuaxal department patient visitAmaury Galindo [facility]: 12-26-2024 End: 89-93-2327Ofmqkwsyw department patient visitROXANNE ROGERSFacility:[facility] Start: 12-14-2024 End: 17-54-7948Jnawnqlil department patient visitROXANNE ROGERSFacility:[facility] Start: 10-20-2024 End: 42-95-1363Sjhzuylfx department patient visitJohn ParenteFacility:[facility]art: 10-07-2024 End: 78-18-9880Bpdyrqluk department patient visitJohn ParenteFacility:[facility]art: 08-11-2024 End: 45-83-4386Mtejuzejw department patient visitJohn Robin [facility] Start: 07-28-2024 End: 70-31-5003rbjzvekzidOqpza M. LueFacility:[place]walkStart: 07-28-2024 End: 44-66-6906Xycenot encounter procedureLois Lucas [facility] Start: 07-22-2024 End: 37-53-2956Gtigahtvf department patient visitJohn Robin [facility] Start: 13-15-4408Npr-patient / Non-visitRoxanne Fernandez DO Work Phone: [facility] Work Phone: Start: 05-22-2024 End: 03-04-9240Kqjfwhxcz to same day surgery centerRoxaleena Fernandez DO Work Phone: [facility] Work Phone: Start: 05-22-2024 End: 68-60-2468hzcmebodfuNxkafgq Vida Fernandez DO Work Phone: [facility] Work Phone: Start: 05-21-2024 End: 08-10-0942Kuvgkuu encounter procedureKatlin Fernandez DO Work Phone: [facility] Work Phone: Start: 05-21-2024 End: 66-22-7576bskjesrvfyDlhprmt Vida Fernandez DO Work Phone: [facility] Work Phone: Start: 04-23-2024 End: 70-92-7745utijbygeraJawsriwuiOur [facility] of [facility] Work Phone: Start: 04-23-2024 End: 88-54-3313Jugeqvj encounter procedureAnn [facility] Work Phone: Start: 02-06-2024 End: 55-52-2819Ygsvby outpatient visit 25 minutesRichard A Visci DO Work Phone: [facility] SWS OBComment on above:Pelvic pain in female; Left ovarian cyst; Menometrorrhagia; Dysmenorrhea; AdenomyosisStart: 02-06-2024 End: 60-72-8593vxerxrdsauZLWYMTP A VISCINot AvailableStart: 01-29-2024 End: 80-70-9755Rejtegq encounter procedureChongmartinsville memorial hospital [facility] Work Phone: Start: 01-19-2024 End: 35-65-5580Nshrgxwis department patient visitCoyvonne Rogers Facility:[facility]: 01-10-2024 End: 30-35-7808Cviovb flowsheetRichard A Visci DO Work Phone: [facility] OBStart: 01-10-2024 End: 90-10-5919Wipdvd flowsheetRichard A Visci DO Work Phone: [facility] OBStart: 01-10-2024 End: 65-36-1320Yhcezv outpatient visit 25 minutesRichard A Visci DO Work Phone: [facility] OBComment on above:Pelvic pain in female; Left ovarian cyst; Menometrorrhagia; Dysmenorrhea; Dyspareunia, female; Screening for malignant neoplasm of cervix; Screening for HPV (human papillomavirus)Start: 01-10-2024 End: 70-59-0615wnceokuhveHGPKZDV A VISCINot AvailableStart: 01-02-2024 End: 53-02-3940Obypkd outpatient visit 25 minutesRichard A Visci DO Work Phone: [facility]oms [facility] OBComment on above:Pelvic pain in female; Menometrorrhagia; Dysmenorrhea; Dyspareunia, female; Left ovarian cystStart: 01-02-2024 End: 61-62-0119uhixbmlwiaMMCCQIF A VISCINot AvailableStart: 12-28-2023 End: 13-49-0374Jdahbqajk encounterRichard A Visci DO Work Phone: [facility] OBStart: 10-27-2023 End: 44-70-8280Unitkcqxk department patient visitKATLIN FERNANDEZSENTARA OBICI HOSPITALComment on above:Left flank pain (Primary Dx)Start: 10-03-2023 End: 51-18-3586Rjpdizywq department patient visitDO Katlin Fernandez Work Phone: [facility] Work Phone: Start: 18-08-3507Ktt-patient / Non-visitDO Katlin Fernandez Work Phone: [facility] Work Phone: Start: 09-20-2023 End: 22-25-4310Ihxagcchg department patient visitDO Katlin Fernandez Work Phone: [facility] Work Phone: Start: 59-17-2389Nyc-patient / Non-visitDO Katlin Fernandez Work Phone: [facility] Work Phone: Start: 09-03-2023 End: 72-38-6469Opfvblwmn department patient visitJorge Oliva [facility] Start: 47-09-3274Lkg-patient / Non-visitDO Katlin Fernandez Work Phone: [facility] Work Phone: Start: 60-23-7032Lrs-patient / Non-visitDO Katlin Fernandez Work Phone: [facility] Work Phone: Start: 08-27-2023 End: 69-94-3867Ihdnlmino department patient visitJorge Oliva [facility] Start: 08-26-2023 End: 52-51-3165Tsnzwtlfs department patient visitJsas Meek [facility] Start: 07-21-2023 End: 94-93-7512Ewansdzrl department patient visitDO Katlin Fernandez Work Phone: [facility] Work Phone: Start: 07-14-2023 End: 75-36-6360Hblunuivp department patient visitDO Katlin Fernandez Work Phone: [facility] Work Phone: Start: 85-29-3752Iyk-patient / Non-visitDO Katlin Fernandez Work Phone: [facility] Work Phone: Start: 07-06-2023 End: 36-19-2667Puhfmclcd department patient visitDO Katlin Fernandez Work Phone: [facility] Work Phone: Start: 06-20-2023 End: 04-07-9585fekqumfpqaZLAXJZX A VISCINot AvailableStart: 06-13-2023 End: 19-80-5566Mnynwvbht department patient visitDO Katlin Fernandez Work Phone: [facility] Work Phone: Start: 06-05-2023 End: 39-61-3275qdnpbftdknWSFA D HILLSNot AvailableStart: 05-22-2023 End: 05-14-7638Guzsensta to same day surgery centerDO Katlin Fernandez Work Phone: [facility] CampusStart: 05-22-2023 End: 02-30-1025mfotvxoivhCL Katlin Fernandez Work Phone: [facility] Work Phone: Start: 05-17-2023 End: 00-61-9126xakzahvpijAQLBZIZ A VISCINot AvailableStart: 05-16-2023 End: 50-84-9569Vhhgovrls department patient visitDO Katlin Fernandez Work Phone: [facility] Work Phone: Start: 05-12-2023 End: 57-35-9335Dscfuebzv department patient visitDO Katlin Fernandez Work Phone: [facility] Work Phone: Start: 05-08-2023 End: 37-34-7051iwgbubvxdrLYDC D HILLSNot AvailableStart: 05-01-2023 End: 14-88-5057vvplcwvmdfXWQV D HILLSNot AvailableStart: 05-01-2023 End: 91-66-6296tfcppzizscMWXM D HILLSNot AvailableStart: 04-17-2023 End: 84-54-0592Mlnqxtoiu department patient visitDO Katlin Fernandez Work Phone: [facility] Work Phone: Start: 49-81-6963Hnkay abstractingNichole L Dauch- [place] [facility] Work Phone: noms SWS PTStart: 10-96-7544Cywssd flowsheetBrittany Wengerd PTANOMS [facility] PTStart: 81-43-0840Ldgxmi flowsheetBrittany Wengerd PTANOMS [facility] PTStart: 04-10-2023 End: 85-83-9020zeihrpoazaVnxaamud Wengerd PTANOMS SWS PTComment on above: Radicular pain of right upper extremity (Primary Dx); Acute pain of right shoulderStart: 04-09-2023 End: 99-54-4307ggrlcedzshCfpobkr Rogers Other Drive Other Start: 77-77-0189Eigfwwyfs encounterRoxaleena Shore Primary CareStart: 04-06-2023 End: 92-84-3175Hdeuvykmj department patient visitDO Katlin Fernandez Work Phone: [facility] Work Phone: Start: 04-03-2023 End: 14-85-2483maectzntrcPZNVWNMA DEPOYNot AvailableStart: 35-98-1706Pnhudreog encounterRoxaleena Shore Primary CareStart: 03-28-2023 End: 74-63-8501azffatiughIEQOEYB L DAUCH-REDDINGNoRed Loop Media Other Start: 62-06-2198Fls-patient / Non-visitDO Katlin Fernandez Work Phone: [facility] Work Phone: Start: 03-21-2023 End: 35-22-8362jysbmwdcdeLPHM D HILLSNot AvailableStart: 02-21-2023 End: 55-82-5295klnxxxpafhGHNW D HILLSNot AvailableStart: 01-26-2023 End: 68-43-7056Hrchrthbc department patient visitJass NahedCheryl Meek [facility] Start: 01-21-2023 End: 51-96-5539Qpqoszmjl department patient visitJuan Antonio Ruf[facility] Start: 12-19-2022 End: 09-56-1779ikeixxzawhMcdjfpz Rogers Other [employer] Other Start: 67-27-8323Usegcrzmd encounterRoxaleena JumaEdgardo Shore Primary CareStart: 11-10-2022 End: 12-75-6025wirjltkkqxXkjmbcb Rogers Other Actively Learnsaint [facility] [employer] Other Start: 87-61-6874Ouflpvsnz encounterRoxanne JumaEdgardo Shore Primary CareStart: 11-07-2022 End: 87-19-5862uijkfxlxtzFeizxgd Rogers Other Drive Other Start: 69-75-4165Wdrtxgglr encounterRoxaleena Shore Primary CareStart: 11-06-2022 End: 18-31-4674Mnxibjqoz department patient visitDO Katlin Fernandez Work Phone: [facility] Work Phone: Start: 08-28-2022 End: 17-26-5453Xho-admission assessmentTodomingo Pinedo fishMer[facility] Start: 08-25-2022 End: 67-27-3951Baidojsvn department patient visitVioletahuang Naranjo Joaquín [facility] Start: 08-09-2022 End: 16-23-4297jzrwxispfiKgmjm Kurtz Other no[employer] Other Start: 19-04-9781Bsczevbyi encounterAndra Nitin [facility] Primary CareStart: 07-03-2022 End: 89-54-4961iqazyryhucBerctnq Rogers Other Drive Other Start: 75-55-5726Ekivwh outpatient visit 25 minutes Katlin Teddy [facility] Primary CareStart: 06-30-2022 End: 02-82-9620shpysrxoirYpjwqdm Rogers Other [employer] Other Start: 24-34-0103Jyzrdryav encounterRoxanne HolleyG Mone Primary CareStart: 06-28-2022 End: 11-73-6437Drabqqdal department patient visitJass Meek [facility] Start: 06-26-2022 End: 97-60-6885lkcfdbxcbqYmvzifo Rogers Other Drive Other Start: 50-48-8839Ittlmefja encounterRoxanne JumanereidaDONNIEG Mone Primary CareStart: 06-22-2022 End: 88-56-7773Cpyckytvq department patient visitTim Rufus [facility] start: 06-15-2022 End: 91-73-7701zikymhzbxmHhloqop Fernandez Other Drive Other start: 93-15-1419Ggjxfpxkg encounterRoxanne RogersFPG Mone Primary CareStart: 05-30-2022 End: 04-78-4658lmikphkrelIbsbscz Fernandez Other [employer] Other Start: 93-19-3194Imyojf outpatient visit 25 minutes Katlin RogWillG Mone Primary CareStart: 05-03-2022 End: 65-21-6515dmshshmcmbPqzpmol Fernandez Other Drive Other Start: 07-81-4089Xdureguke encounterRoxanne RognereidaFPG Mone Primary CareStart: 05-02-2022 End: 04-66-5250ssmrgvoajrTfmxmcn Fernandez Other Drive Other Start: 02-36-7481Kzzhmtsam encounterRoxanne RogWillG Mone Primary CareStart: 05-02-2022 End: 93-62-5902Gjfnlvqen department patient visitJorosanna Kelly [facility] Start: 04-11-2022 End: 84-30-6113zcuwdsonxmTixtydf Fernandez Other Drive Other start: 35-31-6830Vjkurh outpatient visit 25 minutes Katlin RogersFPG Mone Primary CareStart: 04-05-2022 End: 51-48-9934qsyhdqenawLtzxwdm Fernandez Other Drive Other Start: 25-51-2821Asiazyasg encounterRoxalenea Shore Primary CareStart: 03-14-2022 End: 33-57-2094ayjlovzloiSblpayx Rogers Other [employer] Other Start: 28-17-4898Owkdwhqbb encounterRoxannnuha Shore Primary CareStart: 03-10-2022 End: 34-60-1885Kawphplmi department patient visitAstrit [facility] Start: 03-02-2022 End: 80-50-4622xxahpirhmwLevdbmn Rogers Other [employer] Other Start: 59-97-4188Xbfalqnkj encounterRoxannnuha Shore Primary CareStart: 02-14-2022 End: 86-80-8236zchuharmdhWarmgxd Jim Other [employer] Other Start: 12-94-6659Zwtvcfvor encounterRoxaleena Shore Primary CareStart: 01-25-2022 End: 74-30-4788jasjkfgvnsGwlkgge Rogers Other Drive Other Start: 13-51-3877Rxmfrptic encounterRoxannnuha Shore Primary CareStart: 01-25-2022 End: 03-39-4184Vjswziqwr department patient visitAstrit [facility] Start: 01-09-2022 End: 12-93-0217Jgqrskm encounter procedureClramón Whittaker [phone]-SdwdsBrecksville [facility] Start: 12-27-2021 End: 47-61-0212Ltxbtissb department patient visitNohuang Yanes [facility] Start: 69-87-0610Iruowb outpatient visit 25 minutes Katlin Teddy [place] [facility] CareStart: 12-01-2021 End: 58-46-7790itxcijyqxeFT Katlin Vida PorterFernandez Work Phone: [place] [employer] Other Start: 12-01-2021 End: 59-24-2457Fsbyzhb encounter procedureDO Katlin Fernandez Work Phone: [facility] [place]onStart: 11-08-2021 End: 39-02-3140Dgvfymnlv department patient visitJohn Robin [facility] Start: 10-25-2021 End: 38-14-7129htgcvmwfuvNfoabkb Fernandez Other Actively Lear[facility]aint [facility] [employer] Other Start: 03-43-7048Mskgcxqag encounterKatlin JumanereidaBRADEN Referral CoordinatorStart: 10-24-2021 End: 69-99-3577Xltmwtdhl department patient visitNohuang Yanes [facility] Start: 10-24-2021 End: 02-70-0792Lsalijj encounter procedureClaire Nahed Chongar [phone]-MikuyBrecksville [facility] Start: 09-21-2021 End: 09-55-2733Sycopef encounter procedureMa SALAM [phone]-CubpbBrecksville [facility] Start: 09-20-2021 End: 09-01-0607Rniodfixk department patient visitJohn Robin [facility] start: 09-14-2021 End: 55-07-3172dgxxxolwrzMxdmovk Rogers Other [employer] Other Start: 22-48-8172Sgskhuvzu encounterRoxaleena Shore Primary CareStart: 09-13-2021 End: 43-24-7513Jzefwfcwh department patient visitJorosanna Kelly [facility] Start: 07-27-2021 End: 64-37-1145hwukaibnteVmzvotv Rogers Other nosaint [facility] [employer] Other Start: 28-22-0516Ovdqoalad encounterRoxaleena Shore Primary [facility]Start: 07-22-2021 End: 70-12-4366Jjnqranrh department patient visitNohuang Yanes [facility] Start: 07-20-2021 End: 39-31-0064Odmtuohpi department patient visitNohuang Yanes [facility] Start: 07-05-2021 End: 32-76-1245Pmz Drop offMaher TOSHIA [facility] start: 06-15-2021 End: 63-25-9481qiubflcktjNpsmn Kurtz Other [place] [employer] Other Start: 90-36-2960Aiddko outpatient visit 15 minutes Claudia ChrisZachery Shore Primary CareStart: 06-15-2021 End: 34-41-2136JmlswtiiiBelhe SALAM [facility] Start: 06-15-2021 End: 73-35-9132Ncoxvsp encounter procedureDiandra Rahman [phone]-NmpwzBrecksville [facility] Start: 06-14-2021 End: 73-50-7648Quwupri encounter procedureBemelvi Rahman [phone]-KyckhBrecksville Va [facility] Start: 05-12-2021 End: 66-06-0703avfdxfonjpJzoruoh Rogers Other [employer] Other Start: 10-36-4553Puioomwvh encounterRoxannnuha Shore Primary CareStart: 04-20-2021 End: 74-56-9679dbfqhhlsrrJqftsfb Fernandez Other [employer] Other Start: 11-52-3647Ubndskvcl encounterRoxannnuha Shore Primary CareStart: 03-28-2021 End: 88-37-5229gmvaunbvdwEinpvgm Fernandez Other [employer] Other Start: 30-95-1108Vghjdlkid encounterRoxanne RogEdgardo Shore Primary CareStart: 03-02-2021 End: 95-65-9667uhmqbuindaEejirdx Fernandez Other [employer] Other Start: 12-28-6653Abvyffvmm encounterRoxannnuha Shore Primary CareStart: 12-27-2020 End: 77-30-6782mzuivycldiPwnwjzx Fernandez Other Drive Other Start: 03-59-3093Ormyoldqz encounterRoxaleena Shore Primary CareStart: 26-39-2099Aipbvcnei encounterRoxaleena Shore Primary CareStart: 05-06-8961Zexbjyyer encounterKatlin Shore Primary CareStart: 05-81-4822Aufypu outpatient visit 25 minutesAnnnuha Shore Primary CareStart: 91-06-3151Ocrqvd outpatient visit 15 minutesRoxaleena Shore Primary CareStart: 03-10-2020 End: 50-30-0329Sfjvcaurm department patient visitROXAELENA Mcpherson JIMProMedica Defiance Regional Hospitaltart: 03-10-2020 End: 84-54-3773Qlfxbviux department patient visitJoliza Barrett Roscoe Work Phone: [facility] EDComment on above:Undifferentiated abdominal pain (Primary Dx)Start: 12-31-2019 End: 52-40-9277Sjrojxhish hospital visit by physicianKatlin Rodriguez LaboratoryComment on above:Acute pyelonephritis; Complicated UTI (urinary tract infection)Start: 12-13-2019 End: 81-91-9775Ryzbayptnn and management of inpatientMitchell H Tikadank Work Phone: stvZ Onc/Med SurgComment on above:Complicated UTI (urinary tract infection) (Primary Dx); Acute pyelonephritisStart: 10-29-2019 End: 29-58-5954Exrxcllbg [facility] visitOz[facility] EDComment on above:Right arm pain (Primary Dx)Start: 10-28-2019 End: 90-93-8353Fprwkbekd department patient visitOzarks [facility] Hospital EDStart: 01-14-2019 End: 96-45-1454Yuhxtkrzaj and management of inpatientMichael J Nadira Work Phone: [facility] EDComment on above:Flank pain (Primary Dx); Intractable nausea and vomitingStart: 01-08-2019 End: 65-37-8632Vncxnvhuae and management of inpatientMichael C Plewa Work Phone: stVZ 2C Ortho/Med SurgComment on above:Pyelonephritis (Primary Dx); BV (bacterial vaginosis)Start: 12-19-2018 End: 34-94-1973Tspqpsflr department patient visitSlyndon Davila Work Phone: [facility] EDComment on above: Pyelonephritis (Primary Dx); Cyst of left ovaryStart: 03-21-2017 End: 07-81-3204efnavcgvvjILCDG PRAMercy Health St[facility] Procedures DateProcedureProcedure DetailPerforming ClinicianStart: 05-22-2024 EsophagogastroduodenoscopyKatlin Fernandez DO Work Phone: Start: 01-96-1423Evcxgfhhxtkf gastric emptying study Katlin Fernandez DO Work Phone: Start: 02-83-6346LOP, APT HPV,RFX 16/18,45Richard A Visci DO Work Phone: start: 93-56-1543Da abdomen & pelvis w/contrast materialSera Turner MD Work Phone: Start: 74-25-8640Xjz-scan artl monique abdl/pel/scrot&/rpr orgn lmtSera Turner MD Work Phone: Start: 84-81-6328Lt transvaginalSera Turner MD Work Phone: Start: 00-14-5955Bjmsg dip stick/tablet reagent auto microscopySera Turner MD Work Phone: Start: 62-45-8187Mfgyl metabolic panel calcium total Sera Turner MD Work Phone: Start: 87-74-8908Vcerr cultureDO Katlin Fernandez Work Phone: Start: 25-80-0274KV of abdomen and pelvis without contrastDO Katlin Fernandez Work Phone: Start: 58-04-3415Bmtrmprrbt radiography of abdomenDO Katlin Fernandez Work Phone: start: 18-98-1177Redqyjpo tomography of abdomen and pelvis with contrastDO Katlin Fernandez Work Phone: start: 96-56-0288QP of head without contrastDO Katlin Fernandez Work Phone: start: 91-85-9268Rscnv cultureDO Katlin Fernandez Work Phone: start: 92-82-4098Ixtdzudr tomography of abdomen and pelvis with contrastDO Katlin Fernandez Work Phone: start: 33-10-5198Spskpbdyccyk procedureDO Katlin Fernandez Work Phone: start: 78-62-8325Uxqstvsk procedureDO Katlin Fernandez Work Phone: start: 10-41-7869QTYR-CoV-2, Influenza & RSV (PCR)DO Katlin Fernandez Work Phone: start: 39-45-8521Jpkuzqbd tomography of abdomen and pelvis with contrastDO Katlin Fernandez Work Phone: start: 76-77-6603Lsmbupbx tomography of abdomen and pelvis with contrastDO Katlin Fernandez Work Phone: start: 61-46-7607Dszvs cultureDO Katlin Fernandez Work Phone: start: 24-50-4460Fptib X-ray of right shoulderDO Katlin Fernandez Work Phone: start: 54-48-3978W-ray of lumbar spine, four or more viewsDO Katlin Fernandez Work Phone: start: 11-42-0192Q-ray of right ankleDO Katlin Fernandez Work Phone: start: 11-34-8320Xfzep X-ray of right shoulderDO Katiln Fernandez Work Phone: start: 60-76-0238Eqokfivmudz of thoracic spineDO Katlin Fernandez Work Phone: Start: 06-98-1304B-ray of cervical spineDO Katlin Fernandez Work Phone: Start: 60-56-3978Cjjzl test visual color cmprsn methsJoseph R Pale Work Phone: Start: 26-01-9874Xzjpoynrdz microscopic onlyJoseph R Pale Work Phone: Start: 16-74-0594Whibu dip stick/tablet rgnt auto w/o microscopyJoseph R Pale Work Phone: Start: 79-87-7970Zc abdomen & pelvis w/o contrast materialJoseph R Pale Work Phone: Start: 29-91-1322Yirce of lipaseJoseph R Pale Work Phone: Start: 44-35-5423Sgtce count complete auto&auto difrntl wbcJoseph R Pale Work Phone: Start: 50-72-1962Zwrhmerlch microscopic onlyPhi Mcleod Work Phone: Start: 09-99-5448Mkukc dip stick/tablet rgnt auto w/o microscopyPhi Mcleod Work Phone: Start: 90-32-9307Zpxgx metabolic panel calcium total Phi Mcleod Work Phone: Start: 93-83-9570Pvxpu count complete auto&auto difrntl wbcPhi Mcleod Work Phone: Start: 32-29-8695YAWIK METABOLIC PANEL W/ REFLEX TO MG FOR LOW KRavina Spivey Work Phone: Start: 80-74-5152Xgcny count complete auto&auto difrntl wbcRavina Spivey Work Phone: Start: 24-21-6003QYYAS METABOLIC PANEL W/ REFLEX TO MG FOR LOW KRavina Spivey Work Phone: Start: 46-04-8724Jrvnn count complete auto&auto difrntl wbcRavina Spivey Work Phone: [phone]: 72-22-4822Aqt-scan artl monique abdl/pel/scrot&/rpr orgn lmtRetootie Zee Work Phone: [phone]: 09-51-1187Sm transvaginalRetootie Zee Work Phone: [phone]: 73-68-7613Xs retroperitoneal real time w/image completeMtathew Spivey Work Phone: [phone]: 73-07-6979NTPXC METABOLIC PANEL W/ REFLEX TO MG FOR LOW Kesha Spivey Work Phone: [phone]: 50-58-4098Gukhg count complete auto&auto difrntl wbcMatthew Spivey Work Phone: [phone]: 40-76-9700Nhetlwl blood reagent stripWacalin Kelley Work Phone: Start: 54-14-568906 hydroxy includes fractions if performedMatthew Spivey Work Phone: [phone]: 58-52-2450Hohmn of parathormoneMatthew Spivey Work Phone: [phone]: 91-86-9801FAEOH METABOLIC PANEL W/ REFLEX TO MG FOR LOW Kesha Spivey Work Phone: Start: 26-44-9346Gknox count complete auto&auto difrntl wbcMatthew Spivey Work Phone: [phone]: 13-58-8528Arx routine ecg w/least 12 lds i&r onlyMatthew Spivey Work Phone: [phone]: 43-26-9828AEG REPORTHpf ScanningStart: 55-85-7708Ip abdomen & pelvis w/o contrast materialE Hayden Mattson Work Phone: Start: 00-60-7381Vxofo metabolic panel calcium totalE Hayden Mattson Work Phone: [phone]: 97-02-7177Jkcjv count complete auto&auto difrntl wbcE Hayden Mattson Work Phone: Start: 64-45-5289Unkubziztini chorionic qualitativeE Hayden Mattson Work Phone: Start: 26-74-3087Ibronlglwvebr (pct)E Hayden Mattsno Work Phone: Start: 15-46-8484Cwseick urine quantitative timed specimenE Hayden Mattson Work Phone: Start: 80-02-0573Mtijgpo bacterial quanttative colony count urineMitchell H Bruss Work Phone: Start: 41-88-6822Amaetzokyx microscopic onlyE Hayden Mattson Work Phone: Start: 02-68-4215Pccgg test visual color cmprsn methsE Hayden Mattson Work Phone: Start: 16-58-7865Fhpuk dip stick/tablet rgnt auto w/o microscopyE Hayden Mattson Work Phone: Start: 94-34-1858Kxjpk forearm 2 viewsZaradames Hooper Work Phone: Start: 18-94-4752Cwgor humerus minimum 2 viewsMandiry T Rufus Work Phone: Start: 05-73-3877Pguaz wrist complete minimum 3 views Darrion Hooper Work Phone: Start: 86-18-9062Errfp dip stick/tablet reagent auto microscopyBrejojo Nu Work Phone: Start: 28-07-4970Hxcyx metabolic panel calcium total Demetri Nu Work Phone: Start: 53-86-3292Donda count complete auto&auto difrntl wbcBret Nu Work Phone: Start: 42-57-4520Xeijy metabolic panel calcium total Negro de [place] Work Phone: Start: 19-98-3000Uhene count complete auto&auto difrntl wbcPaul de [place] Work Phone: Start: 02-28-9487S-reactive proteinPaul de Saint [place] Work Phone: Start: 07-32-7344Du abdomen & pelvis w/contrast materialArlette T Aouad Work Phone (unformatted): [phone]: 78-69-9572K-reactive proteinArlette T Aouad Work Phone (unformatted): [phone]: 64-97-8727BLEKJDCDPV DISEASE INTERVENTIONArlette T Aouad Work Phone (unformatted): [phone]: 39-20-5474Ouuzw judi species direct probe tqMichael C Plewa Work Phone: Start: 70-57-7086Tszuq multiple organisms amplified probe tqMichael C Plewa Work Phone: Start: 17-41-9575Gtb-scan artl monique abdl/pel/scrot&/rpr orgn lmtWillianahed Zachery Goncharow Work Phone: Start: 39-40-7411Sv transvaginalWillloraine Zachery Goncharow Work Phone: Start: 15-61-6734Obcfb count complete automatedMichael C Plewa Work Phone: Start: 26-08-4212J-reactive proteinMichael C Plewa Work Phone: Start: 64-02-5127Klposrzvppno chorionic quantitative Roya C Plewa Work Phone: Start: 40-21-3190Ozyzplhpha glycosylated i5sFjkevra C Plewa Work Phone: Start: 64-04-9587Swxholz bacterial quanttative colony count urineWillloraine Zachery Raineycharow Work Phone: Start: 55-47-9390Iimeq test visual color cmprsn methsWilliam Zachery Goncharow Work Phone: Start: 53-28-9143Bwreq dip stick/tablet reagent auto microscopyWillianahed Zachery Goncharow Work Phone: Start: 04-82-2862Gr abdomen & pelvis w/contrast materialRobert Deveny Work Phone: Start: 89-43-5912Pknvphylde microscopic onlyRobert Deveny Work Phone: Start: 49-03-7179Tctlo dip stick/tablet rgnt auto w/o microscopyRobert Deveny Work Phone: Start: 80-31-9772Vinwj count complete auto&auto difrntl wbcRobert Deveny Work Phone: Start: 28-89-4312Aammnqqcfwbdo metabolic panelRobert Deveny Work Phone: Start: 96-86-4375Jykqrslqrbyl chorionic qualitative Harvey Pia Work Phone: cesarean sectionBemelvi LundyLacey CholecystectomyDiandra Guzmanz Esophagogastroduodenoscopy gastric outlet reductionBemelvi Lacey Ligation of fallopian tubeBemelvi Rahman Plan of Treatment DateCare ActivityDetailAuthorStart: 03-67-3302OKjW/Tdap/Td vaccine (3 - Td or Tdap)DTaP/Tdap/Td vaccine (3 - Td or Tdap)PETE YARBROUGHOHIOHEALTH PICKERINGTON METHODIST HOSPITALStart: 44-56-8962WMaV/Tdap/Td vaccine (3 - Td)DTaP/Tdap/Td vaccine (3 - Td)[facility]: 21-10-6927EmbeciabhKettering Health Prebletart: 2024 End: 40-43-5801Dpugqyn encounter vnxmqezug18/30/2024 10:15 AM EST Office Visit [facility] [address] [place] [address] Anthony Huang, DO [address] [place] [address] [facility] SWS OBStart: 2024 End: 05-26-9178Xtpeqeqhiqup / ancillary services uigjuoubry64/30/2024 9:30 AM EST Ancillary Procedure [facility] [address] [place] [address] [facility] OBStart: 02-06-2024 End: 10-70-2816Vjuxwtz encounter xxrzsmamp60/11/2024 1:15 PM EST Office Visit [facility] [address] [place] [address] Anthony Huang, DO [address] [place] [address] [facility] SWS OBStart: 02-06-2024 End: 27-14-0621Djhexouwfnhw / ancillary services uenhzidqwu00/11/2024 12:30 PM EST Ancillary Procedure [facility] [address] [place] [address] XBXV [facility] OBStart: 09-87-3293Axddlji referralSelect Medical [facility] Work Phone: Start: 01-02-2024 End: 74-69-0702Olfbuit encounter lhyxtoufi81/06/2024 8:45 AM EST Office Visit [facility] [address] [place] [address] Anthony Huang, DO [address] [place] [address] [facility] OBStart: 92-18-4335Fvllho Wellness Visit (Medicare) Annual Wellness Visit (Medicare)[facility]: [facility]2023 Bacteria identified in Urine by CultureUrine [facility] Hospitaltart: 23-39-3473FG Abdomen and Pelvis WO contrastKettering Health Prebletart: 22-85-2855UJ of abdomen and pelvis without contrastCT abdomen pelvis wo [facility] Systemtart: 78-08-3729Ezzduwegt vaccinationFlu vaccine (#1)[facility]ITALStart: 07-80-3536Honvvqxd identified in Urine by CultureUrine [facility] Start: 97-58-0481VI Abdomen and Pelvis WO contrastKettering Health Prebletart: 14-09-4772UP of abdomen and pelvis without contrastCT abdomen pelvis wo [facility] Systemtart: 79-98-5503Akucohlary radiography of abdomenXR acute abdomen seriesMemorial Health System Start: 62-73-3757FC Abdomen ViewsKettering Health Prebletart: 33-25-0687Xfpdnxzs identified in Urine by CultureKettering Health Prebletart: 19-95-9120JrlxseqirKettering Health Prebletart: 05-22-2023 [facility]: 55-81-1983LyilvjgxqKettering Health Prebletart: 59-83-2276Nmkwebrs identified in Urine by CultureUrine Culture [facility]: 05-01-2023 End: 32-36-6683Fqcnlcw encounter /05/2024 11:00 AM EST Office Visit [facility] ORTHOAO [address] [place] [address] Kayleen Pinedo PA [address] [place] [address] [facility] ORTHOAOStart: 04-27-2023 End: 86-53-7240ejqoevzbjr89/01/2024 12:00 PM EST Treatment [facility] PT [address] [place] [address] Jessica Stevenson, PT [address] [place] [address] [facility] PTStart: 04-24-2023 End: 41-72-6752xflxofaiws00/27/2024 12:30 PM EST Treatment [facility] PT [address] [place] [address] Lin Morse, [facility] [address] [place] [address] [facility] PTStart: 04-20-2023 End: 00-56-5096oyrkimxoig25/23/2024 12:00 PM EST Treatment [facility] PT [address] [place] [address] Lin Morse, [facility] [address] [place] [address] [facility] PTStart: 04-17-2023 End: 99-88-1643gnmptpnonk86/20/2024 1:00 PM EST Treatment [facility] [address] [place] [address] Jessica Stevenson L, PT [address] [place] [address] [facility] PTStart: 04-13-2023 End: 17-94-3631mqqblzugoj51/16/2024 12:00 PM EST Treatment [facility] PT [address] [place] [address] Jessica Stevenson, PT [address] [place] [address] [facility] PTStart: 04-10-2023 End: 99-34-8918bpsnvtivse74/13/2024 12:00 PM EST Treatment [facility] PT [address] [place] [address] Yariel Elam, SOURAV ArrivedANDALUSIA HEALTH PTComment on above:ArrivedStart: 65-79-5325Pqoclu scan of lower limb veinsUS venous duplex LE [facility] CenterStart: 49-08-4323TR Lower extremity vein - [facility] Centertart: 91-43-3712YKXCP-19 Vaccine ( season)COVID-19 Vaccine ( season)PTEE YARBROUGHOVERTON BR[facility] HEALTHStart: 12-24-2019 End: 32-68-7586Vaxyx metabolic 2000 panelBasic Metabolic Panel Lab Routine Acute pyelonephritis Complicated UTI (urinary tract infection) Expected: 12/24/2019, Expires: 12/16/2020[facility] SAULComment on above:Expected: 12/24/2019, Expires: 12/16/2020tart: 12-24-2019 End: 05-32-8654OLJ With Auto DifferentialCBC With Auto Differential Lab Routine Acute pyelonephritis Complicated UTI (urinary tract infection) Expected: 12/24/2019, Expires: 12/16/2020[facility] SCComment on above:Expected: 12/24/2019, Expires: 12/16/2020tart: 12-24-2019 End: 29-79-4232Sqomwfgsrd Reflex to CultureUrinalysis Reflex to Culture Lab Routine Acute pyelonephritis Complicated UTI (urinary tract infection) Expected: 12/24/2019, Expires: 12/16/2020[facility] HospitalSAULComment on above:Expected: 12/24/2019, Expires: 12/16/2020tart: 45-13-4020Zbgkegfgy vaccinationFlu vaccine (#1)[facility]: 39-40-4810Anistyazu vaccinationFlu vaccine (#1) [facility]: 18-72-4515Zypvme Wellness Visit (AWV)Annual Wellness Visit (AWV)[facility]: 88-96-6731Vgyqtyxfe for malignant neoplasm of cervixLifePoint Health: 46-83-1093Ygxzfncg cancer screen Cervical cancer screenMercy Hospital: 87-07-2594Axiyaccsf for malignant neoplasm of cervixLifePoint Health: 02-24-2007 DTaP/Tdap/Td vaccine (1 - Tdap)DTaP/Tdap/Td vaccine (1 - Tdap)[facility]: 28-66-5716Cqmbuksem C screeningHepatitis C [facility]: 62-34-3548ZFS screenHIV screenMercy Hospital: 02-24-[address] HIV screening[address] [facility]: 01-45-3320Lqbkdwddx B vaccine (3 of 3 - 3-dose primary series)Hepatitis B vaccine (3 of 3 - 3-dose primary series)[facility]: 98-99-7072Zdirgjorp B vaccine (3 of 3 - 3-dose series)Hepatitis B vaccine (3 of 3 - 3-dose series)[facility]: 75-05-1525Huhrknpsd Vaccine (1 of 2 - 13+ 2-dose series)Varicella Vaccine (1 of 2 - 13+ 2-dose series)BON [facility]: 2000 Depression MonitoringDepression MonitoringLifePoint Health: 72-48-4889Weauljikqkva 0-64 years Vaccine (1 of 1 - PPSV23)Pneumococcal 0-64 years Vaccine (1 of 1 - PPSV23)[facility]: 03-64-8843Twtfjaaguqtv 0-64 years Vaccine (1 of 2 - PCV)Pneumococcal 0-64 years Vaccine (1 of 2 - PCV) [facility]: 32-07-7724Jsvdrpyjp Vaccine (1 of 2 - 2-dose childhood series)Varicella Vaccine (1 of 2 - 2-dose childhood series)[facility]: 92-00-5040Yedijmppw C screeningHepatitis C screenHouse, [place] End: 81-56-6823Eoczfgpj identified Cx Nom (U)Urine Culture Microbiology Routine Once for 1 Occurrences starting 12/19/2018 until 12/19/2018[place] Comment on above:Once for 1 Occurrences starting 12/19/2018 until 12/19/2018 Bacteria identified Cx Nom (U)[facility]Bacteria identified in Urine by CultureMemorial Health SystemBacteria identified in Urine by CultureMemorial Health SystemBasic Metabolic Panel w/ Reflex to MGBasic Metabolic Panel w/ Reflex to MG Lab Routine Daily until discontinued starting 12/14/2019, 4 completedHouse, [place]Comment on above:Daily until discontinued starting 12/14/2019, 4 completed End: 12-14-2019C.trachomatis N.gonorrhoeae DNAC.trachomatis N.gonorrhoeae DNA Microbiology Routine One Time for 1 Occurrences starting 12/14/2019until 12/14/2019[place], [place] above:One Time for 1 Occurrences starting 12/14/2019 until 12/14/2019 End: 58-05-0868STOTSYC, RANDOM URINECALCIUM, RANDOM URINE Lab Routine One Time for 1 Occurrences starting 12/14/2019 until 12/14/2019[facility] on above:One Time for 1 Occurrences starting 12/14/2019 until 12/14/2019 CBC auto differentialCBC auto differential Lab Routine Daily until discontinued starting 12/14/2019, 4 completedGe[facility] Behavioral HospitalSAULComment on above:Daily until discontinued starting 12/14/2019, 4 completedCT ABDOMEN PELVIS W IV CONTRAST Additional Contrast? NoneCT ABDOMEN PELVIS W IV CONTRAST Additional Contrast? None Imaging STAT 12/19/2018 10:50 AM [facility] End: 08-54-0367Fwvcfam, Blood 1Culture, Blood 1 Microbiology STAT One Time for 1 Occurrences starting 12/14/2019 until 12/14/2019[facility]Comment on above:One Time for 1 Occurrences starting 12/14/2019 until 12/14/2019 End: 34-68-8545Ssxxcdb, UrineCulture, Urine Microbiology Routine Once for 1 Occurrences starting 12/31/2019 until 12/31/2019[facility]SAULComment on above:Once for 1 Occurrences starting 12/31/2019 until 12/31/2019 End: 21-30-5022Gtbasoh, UrineBON [facility]ITALComment on above:One Time for 1 Occurrences starting 10/27/2023 until 4Dup-scan artl monique abdl/pel/scrot&/rpr orgn lmtUS DUP ABD PEL RETRO SCROT LIMITED Imaging STAT 10/27/2023 1:17 PM [facility] [employer] End: 50-72-4861Enauifnjuc Disease InterventionInfectious Disease Intervention Microbiology Routine One Time for 1 Occurrences starting 01/10/2019until 01/10/2019[facility] HospitalSAULComradha on above:One Time for 1 Occurrences starting 01/10/2019 until 01/10/2019 End: 87-57-9238PHHGDA BLOOD SCREENOCCULT BLOOD SCREEN Lab Routine One Time for 1 Occurrences starting 12/14/2019 until 12/14/2019[facility]SAULComment on above:One Time for 1 Occurrences starting 12/14/2019 until 12/14/2019Oxygen therapy [Minimum Data Set]Initiate Oxygen Therapy Protocol Respiratory Care Routine Daily until discontinued starting 12/14/2019[facility] HospitalSAULComradha on above:Daily until discontinued starting 12/14/2019[facility] EducationDay[facility] Work Phone: Patient referralDayton Children'[facility] Work Phone: Radionuclide gastric emptying studyMemorial Health SystemUS PelvisUS PELVIS COMPLETE Imaging STAT 10/27/2023 1:17 PM EDTBON Off Track PlanetUS Pelvis transvaginalUS NON OB TRANSVAGINAL Imaging STAT 10/27/2023 1:17 PM EDTBON [facility] Immunizations Immunization DateImmunizationNotesCare BcnkwtxoTqsyycjy25-32-7565MRVLVPHGIAFD (Phenergan) up to [address] Other [id number] toxoid, reduced diphtheria toxoid, and acellular pertussis vaccine, adsorbedClaire Cogar [phone]-ElyodBrecksville [facility] Bijg82-64-6611 influenza, seasonal, injectableAnne Ryder Other Drive Other [id number] toxoid, reduced diphtheria toxoid, and acellular pertussis vaccine, adsorbedMemorial Health System 21-79-2871qdgijro toxoid, reduced diphtheria toxoid, and acellular pertussis vaccine, adsorbed; Translations:[Adacel (Tdap)]Diandra Rahman [phone]-KjigzBrecksville [facility] [id number] B vaccine, pediatric or pediatric/adolescent dosageClaire Cogar [phone]-SvywbBrecksville Va [facility] Uojx25-82-8991 hepatitis B vaccine, pediatric or pediatric/adolescent dosageClaire Cogar [phone]-AiuebBrecksville [facility] Rqtr51-38-8457 measles, mumps and rubella virus vaccineClaire Arlettear [phone]-SegebBrecksville [facility] CareNEGATED: Highlighted row has not occurred!40-55-6696vedpgfzob, seasonal, injectable Katlin Fernandez Other [facility] [employer] Other Payers DatePayer CategoryPayerPolicy [id number] 2020Medicaid [id number] 2019MedicaidMEDICAID [place] MEDICAID [facility] DEPT OF JOB xxxxxxxxxxxx 2018-Present [phone] [address] [place], [place] [address]veocbskdjjvg [id number] [id number] 2015Medicare MEDICARE MEDICARE PART A AND B xxxxxxxxxxx 2014-Present [phone] [place], [id number] [id number] 2008Medicare1.2.840.6226[id number] 2008Medicare [id number] 1.2.840.157440.1.13.239.2.7.3.671[id number] 2.16.840.1.231571.3.579.[id number] 2.16.840.1.803454.3.579.2.56653-16-4181Zbxaiey14497510 2.16.840.1.266884.3.57[id number] 2.16.840.1.608329.3.57[id number] 2.16.840.1.264815.3.57[id number] 2.16.840.1.553070.3.579.2.55472-70-1620Moyvtpl74586512 2.16.840.1.521311.3.579.2.10854-08-5037Hstnoqz965649927 2.840.1.879167.3.579.2.46649-46-3031Fokryjf0023671 2..840.1.465660.3.579.2.893603-58-2589Mzazppg4330162 2..840.1.011816.3.579.2.722119-48-4577Jovdnkz9378137 2..840.1.485899.3.579.2.041270-69-7598Rowuung9985903 2.840.1.780876.3.579.2.330966-55-8423Vcvcavq3578540 2..840.1.576330.3.579.2.551850-97-3838Zrftktp3754404 2.16.840.1.653895.3.579.2.930795-10-6259Reqbihg8790327 2..840.1.282215.3.579.2.027649-20-4455Femcjnr1714407 2.16.840.1.674803.3.579.2.697053-76-7764Iulepon5501432 2.16.840.1.940566.3.579.2.961701-92-2746Csnarpe6432706 2.16.840.1.111485.3.579.2.852367-21-7199Pcffmts8781541 2.16.840.1.462775.3.579.2.917754-08-0743Knufyul3862471 2.16.840.1.510710.3.579.2.269780-33-7336Qraijcp4781780 2.0.1.634306.3.579.2.097884-65-4237Jqxdwqm8746760 2.16840.1.790400.3.579.2.927247-96-0225Gddwpgc8191631 2.0.1.288513.3.579.2.530968-10-7538Vgcexxf3643773 2.160.1.246728.3.579.2.274809-53-7211Mnnvnhg754200 2.16840.1.702957.3.579.2.896380-12-0260Utkmhxk911338 2.160.1.435653.3.579.2.692079-94-2198Klungmr908225 2.16840.1.924860.3.579.2.363281-82-1007Dtscegc26124831 2.16840.1.718235.3.579.2.75472-85-0946Qihjdit71083799 2.16840.1.637720.3.579.2.22024-65-7110Bnknipk04220061 2.16840.1.412074.3.579.2.70067-90-6421Sprldxa53284190 2.16.840.1.969702.3.579.2.09832-90-6073Eevviwd20038862 2.0.1.794444.3.579.2.65831-48-7693Pljfqva52952323 2.0.1.496022.3.579.2.56998-28-9697Zcxvita74285217 2.0.1.260450.3.579.2.38966-48-5813Aclmmgg90260974 2..1.870641.3.579.2.59286-89-6076Yuqyguf82434320 2.0.1.736839.3.579.2.38859-36-7087Hybwxyo57971078 2..1.344715.3.579.2.00493-30-2773Rtmimvw34623840 2.0.1.289750.3.579.2.01670-79-7278Omhgaxv47951812 2..1.400105.3.579.2.86595-18-4947Kbhpika59755483 2..1.447152.3.579.2.34071-42-0328Kncenui01280636 2..1.606620.3.579.2.24291-91-8935Ymvpgke11501526 2.840.1.782162.3.579.2.727MedicareMedicare [id number] 3l3019rk-5nhx-7s36-197s-70h422vn388vSwohwyj57198074 2.840.1.660437.3.579.2.679Layajvz14893115 2.840.1.416997.3.579.2.531 Ygookjg40921575 2.16.840.1.559530.3.579.2.674Phofnfv52838910 2.16.840.1.517964.3.579.2.939Pmbfzmq48909483 2.16.840.1.660845.3.579.2.531 Ggyijsz86143652 2.16.840.1.109624.3.579.2.539Ljyvgzm55573021 2.16.840.1.570258.3.579.2.414Oxhyznj70345214 2.16.840.1.008816.3.579.2.531 Worker's [id number] 3rbg4r30-7zvj-8t23-7u59-28461m4n4r77 Social History DateTypeDetailFacilityStart: 12-19-2018 End: 21-02-2708Qlgrtao smoking status NHISCurrent every day smokerNOThree [facility] End: 08-70-9819Vwxfjmc of tobacco useCigar SmokerMer[facility] Hospital: 12-19-2018 End: 81-35-9462Onemeav intakeNoMercy Hospital: 63-43-2371Ljd Assigned At BirthNot on [facility]: 12-19-2018 End: 40-61-1783Tzfgrjr intakeCurrent non-drinker of alcohol (finding)[facility]2019 End: 74-82-2427Chgcmnx smoking status NHISFormer smokerHouse, [place] Start: 11-06-2022 End: 26-42-6977Ggdzjwu of tobacco useCurrent smokerMcCullough-Hyde Memorial Hospitalart: 10-29-2019 End: 56-56-5684Wielyhe use and exposureNever usedHouse, [place]Exposure to SARS-CoV-2 (event)Not sureMcCullough-Hyde Memorial Hospitalart: 03-09-2020 End: 27-32-3452Raamumc smoking status NHISCurrent some day smokerMercy Hospital: 03-09-2020 End: 23-01-2843Mzbyqwp intakeCurrent drinker of alcohol (finding)[facility]: 65-29-0975Pipcbsk CommentoccMercy Hospital: 06-15-2021 End: 70-23-8443Wuiukqu smoking statusLight tobacco smoker (finding)[facility] Tobacco smoking statusNeverBrecks[facility] Start: 79-96-3012Dhyuglg smoking statusHeavy tobacco smoker (finding)[facility]: 41-53-9171Szk [facility] HospitalTobaccoCurrent vaping or e-cigarette use Smokeless Tobacco Use:.[facility] HospitalT[facility] smoking status [facility] HospitalHistory of tobacco useCigarette SmokerNOMS HealthcareStart: 03-21-2023 End: 90-66-4503Yvkfwms of Social functionNOMS HealthcareStart: 54-86-6480Jmtnkrt CommentSmokes 1-/19 cigarettes/dayNOMS HealthcareStart: 73-69-8834Wcyzqzr Commentcaffeine 1-2 cups/dayNOMS HealthcareStart: 71-02-4579Ygprsxz smoking status NHISNever smoked tobacco (finding)[facility]: 06-19-2023 End: 46-84-4136Iwdhtnzgh beverage intakeLifetime non-drinker (finding)[facility] HealthcareHow often to you have a drink containing alcohol?NeverBON SECOURS [facility] CENTERStart: 05-16-2018 End: 97-75-7803HgmXcdcws (finding)[facility] SystemNEGATED: Highlighted rowThe [facility] Hospital [facility]woods Goals DatePatient GoalDesired Activity/State Functional Status RynpOuokzlabypTyhvyqBpvwqhvb70-46-6353Jcshoajgxa StatusN/[facility]07-01-2024Functional StatusN/[facility]06-30-2024 Functional StatusN/[facility]12-01-2023Functional StatusN/A [facility]11-26-2023Functional StatusN/[facility]06-30-2023Functional StatusN/[facility] 53-69-5252Hzcgzcumwa StatusN/[facility]04-27-2023Functional StatusN/[facility]03-07-2023Functional StatusN/[facility]01-13-2023Functional StatusN/[facility] 92-56-5641Bdzkwilwda StatusN/[facility]11-14-2022Functional StatusN/[facility] Epjb11-27-0474Jxcaffanoe Status N/[facility]09-13-2022N/[facility] 73-83-9342Rhrtucslby StatusN/[facility]07-26-2022Functional StatusN/[facility]07-19-2022Functional StatusN/[facility] Clinical Notes 10-12-2020 to 12-29-2024 Note Date & EeofWomcQelthikm06-89-5036 NoteED Patient Education Note Abdominal Pain During Abdominal pain is common during and has many possible causes. Some causes are more serious than others, and sometimes the cause is not known. Abdominal pain can be a sign that labor is starting. It can also be caused by normal growth of yourbaby causing stretching of muscles and ligaments during . Always tell your health care provider if you have any abdominal pain. Follow these instructions at home: ??? Do not have sex or put anything in your vagina until your pain goes away completely. ??? Get plenty of rest until your pain improves. ??? Drink enough fluid to keep your urine pale yellow. ??? Take gfzu-bif-advasqt and prescription medicines only as told by your health care provider. ??? Keep all follow-up visits. This is important. Contact a health care provider if: ??? Your pain continues or gets worse after resting. ??? You have lower abdominal pain that: ? Comes and goes at regular intervals. ? Spreads to your back. ? Is similar to menstrual cramps. ??? You have pain or burning when you urinate. Get help right away if: ??? You have a fever, chills, or shortness of breath. ??? You have vaginal bleeding. ??? You are leaking fluid or passing tissue from your vagina. ??? You have vomiting or diarrhea that lasts for more than 24 hours. ??? Your baby is moving less than usual. ??? You feel very weak or faint. ??? You develop severe pain in your upper abdomen. Summary ??? Abdominal pain is common during and has many possible causes. ??? If you experience abdominal pain during , tell your health care provider right away. ??? Follow your health care provider's home care instructions and keep all follow-up visits as told. This information is not intended to replace advice given to you by your health care provider. Make sure you discuss any questions you have with your health care provider. Document Revised: 10/26/2020 Document Reviewed: 10/26/2020 Else[employer]QL Patient Education ? 2023 [email or web address]. Gastroenterology Cannabinoid Hyperemesis Syndrome Cannabinoid hyperemesis syndrome (CHS) is a condition that causes repeated nausea, vomiting, and abdominal pain after long-term use of marijuana (cannabis). People with CHS typically use marijuana 3?5 times a day for many years before they have symptoms, although it is possible to develop CHS with far less daily use. Symptoms of CHS may be mild at first but can get worse and more frequent. In some cases, CHS may cause severe daily vomiting, which can lead to weight loss and dehydration. What are the causes? The exact cause of CHS is not known. Long-term use of marijuana may overstimulate certain proteins in the brain and digestive tract that react with chemicals in marijuana (cannabinoid receptors). This overstimulation may cause CHS. What are the signs or symptoms? Symptoms of CHS are often mild during the first few episodes, but they can get worse over time. Symptoms may include: ??? Frequent nausea, especially early in the morning. ??? Vomiting. This can become severe. ??? Abdominal pain. ??? Feeling very tired (lethargic). ??? Headaches. CHS may go away and come back many times (recur). People may not have symptoms or may otherwise be healthy in between CHS episodes. Taking hot showers can relieve the symptoms of CHS, so feeling the need to take several hot showers throughout the day can be a sign of this condition. How is this diagnosed? CHS may be diagnosed based on: ??? Your symptoms and medical history, including any drug use. ??? A physical exam. You may have tests done to rule out other problems that could cause your symptoms. These tests may include: ??? Blood tests. ??? Urine tests. ??? Imaging tests, such as an X-ray or a CT scan. How is this treated? Treatment for this condition involves stopping marijuana use. Treatment may include: ??? A drug rehab program, if you have trouble stopping marijuana use. ??? Medicines for nausea. These may be given at the hospital through an IV inserted into one of your veins, or they may be medicines that you take by mouth (orally). ??? Certain creams that contain a substance called capsaicin. These may improve symptoms when applied to the abdomen. ??? Hot showers to help relieve symptoms. In severe cases, you may need treatment at a hospital. You may be given IV fluids to prevent or treat dehydration as well as medicines to treat nausea, vomiting, and pain. Follow these instructions at home: During an episode of CHS ??? Stay in bed and rest in a dark, quiet room. ??? Take anti-nausea medicine as told by your health care provider. ??? Try taking hot showers to relieve your symptoms. After an episode of CHS ??? Drink small amounts of clear fluids. Slowly add more if you can keep the fluids down without vomiting. ??? Once you ar (more content not included)...[facility] 12-26-2024 NoteED Patient Education Note Pulmonary Medicine Bronchospasm, Adult Bronchospasm is when the small airways in the lungs narrow. This can make it very hard to breathe. Swelling and more mucus than normal can add to this problem. What are the causes? Having a cold. ??? Exercise. ??? The smell from sprays, perfumes, candles, and fisheries director. ??? Cold air. ??? Stress or strong feelings such as laughing or crying. What increases the risk? Having asthma. ??? Smoking. ??? Being around someone who smokes (secondhand smoke). ??? Having allergies. ??? Being allergic to certain foods, medicine, or bug bites or stings. What are the signs or symptoms? Making a high-pitched whistling sound when you breathe, most often when you breathe out (wheezing). ??? Coughing. ??? A tight feeling in your chest. ??? Feeling like you cannot catch your breath. ??? Feeling like you have no energy to exercise. ??? Breathing that is noisy. ??? A cough that has a high pitch. How is this treated? Using medicines that you breathe in (inhale). These open up the airways and help you breathe. Medicines can be taken with a metered dose inhaler or a nebulizer device. ??? Taking medicines to reduce swelling. ??? Getting rid of what started the bronchospasm. Follow these instructions at home: Medicines ??? Take qxoa-ask-ovrtmta and prescription medicines only as told by your doctor. ??? If you need to use an inhaler or nebulizer to take your medicine, ask your doctor how to use it. ??? You may be given a spacer to use with your inhaler. This makes it easier to get the medicine from the inhaler into your lungs. Lifestyle ??? Do not smoke or use any products that contain nicotine or tobacco. If you need help quitting, ask your doctor. ??? Keep track of things that start your bronchospasm. Avoid these if you can. ??? When pollen, air pollution, or humidity is bad, keep windows closed. Use an air conditioner if you have one. ??? Find ways to cope with stress and your feelings. Activity Some people have bronchospasm when they exercise. This is called exercise- induced bronchoconstriction (EIB). If you have this problem, talk with your doctor about how to deal with EIB. Some tips include: ??? Use your inhaler before exercise. ??? Exercise indoors if it is very cold or humid, or if the pollen and mold counts are high. ??? Warm up and cool down before and after exercise. ??? Stop your exercise right away if your symptoms start or get worse. General instructions ??? If you have asthma, make sure you have an asthma action plan. ??? Stay up to date on your shots (immunizations). ??? Keep all follow-up visits. Get help right away if: ??? You have trouble breathing. ??? You wheeze and cough and this does not get better after you take medicine. ??? You have chest pain. ??? You have trouble speaking more than one word in a sentence. These symptoms may be an emergency. Get help right away. Call 911. ??? Do not wait to see if the symptoms will go away. ??? Do not drive yourself to the hospital. Summary ??? Bronchospasm is when the small airways in the lungs narrow. Swelling and more mucus than normalcan add to this problem. This can make it very hard to breathe. ??? Do not smoke or use any products that contain nicotine or tobacco. If you need help quitting, ask your doctor. ??? Get help right away if you wheeze and cough and this does not get better after you take medicine. This information is not intended to replace advice given to you by your health care provider. Make sure you discuss any questions you have with your health care provider. Document Revised: 09/05/2021 Document Reviewed: 09/05/2021 TRAN[employer]SL Patient Education ? 2023 [email or web address] 12-15-2024 NoteED Patient Education Note Gastroenterology Nausea and Vomiting, [...] ? Low-calorie sports drinks. ??? Eat bland, zbur-yx-vhqdmj foods in small amounts as you are able, such as: ? Bananas. ? Applesauce. ? Rice. ? Low-fat (lean) meats. ? Donnellson. ? Crackers. ??? Avoid drinking fluids that have a lot of sugar or caffeine in them. This includes energy drinks, sports drinks, and soda. ??? Avoid alcohol. ??? Avoid spicy or fatty foods. General instructions ??? Take rlkl-ugg-caluehn and prescription medicines only as told by your doctor. ??? Drink enough fluid to keep your pee (urine) pale yellow. ??? Wash your hands often with soap and water for at least 20 seconds. If you cannot use soap and water, use hand eviscerator. ??? Make sure that everyone in your [...] doctor about eating and drinking. ??? Take jrbg-oaz-ifxmbgb and prescription medicines only as told by your doctor. ??? Contact your doctor if your symptoms get worse or you have new symptoms. ??? Keep all follow-up visits. This information is not intended to replace advice given to you by your health care provider. Make sure you discuss any questions you have with your health care provider. Document Revised: 08/19/2021 Document Reviewed: 08/19/2021 TRAN.SL Patient Education ? 2023 [email or web address] 10-20-2024 NoteED Patient Education Note Gastroenterology Nausea and Vomiting, [...] ? Low-calorie sports drinks. ??? Eat bland, bvkn-hv-ceukyt foods in small amounts as you are able, such as: ? Bananas. ? Applesauce. ? Rice. ? Low-fat (lean) meats. ? Donnellson. ? Crackers. ??? Avoid drinking fluids that have a lot of sugar or caffeine in them. This includes energy drinks, sports drinks, and soda. ??? Avoid alcohol. ??? Avoid spicy or fatty foods. General instructions ??? Take ozrg-ykq-vkspmwl and prescription medicines only as told by your doctor. ??? Drink enough fluid to keep your pee (urine) pale yellow. ??? Wash your hands often with soap and water for at least 20 seconds. If you cannot use soap and water, use hand eviscerator. ??? Make sure that everyone in your [...] doctor about eating and drinking. ??? Take ezvy-xfo-sfnxfdm and prescription medicines only as told by your doctor. ??? Contact your doctor if your symptoms get worse or you have new symptoms. ??? Keep all follow-up visits. This information is not intended to replace advice given to you by your health care provider. Make sure you discuss any questions you have with your health care provider. Document Revised: 08/19/2021 Document Reviewed: 08/19/2021 TRAN.SL Patient Education ? 2023 [email or web address]. Pulmonary Medicine Acute Bronchitis, Adult Acute bronchitis [...] cough may last longer. Allergies, asthma, and exposureto smoke may make the condition worse. What are the causes? This condition can be caused by germs and by substances that irritate the lungs, including: ??? Cold and flu viruses. The most common cause of this condit (more content not included)...[facility]08-12-2025 NoteED Patient Education Note Gastroenterology Abdominal Pain, Adult [...] these instructions at home: Medicines ??? Take kyld-qnk-icouykt and prescription medicines only as told by [...] provider. Document Revised: 11/29/2022 Document Reviewed: 11/29/2022 TRAN.SL Patient Education ? 2023 [email or web address] 08-11-2024 Hospital Discharge instructions Patient Education 08/11/2024 20:40:33 Flank Pain, Adult, Lwrj-ch-Kwgx Flank Pain, Adult Flank pain is pain [...] Rest as told by your doctor. Take tqhv-klt-qlibsch and prescription medicines only as told by [...] away. Call your local emergency services (911 int [place] Do not wait to see if [...] provider. Document Revised: 04/25/2021 Document Reviewed: 04/25/2021 TRAN.SL Patient Education 2023 [email or web address]. 08/11/2024 20:40:33 Urinary Tract Infection, Adult, Ioat-vc-Qerw Urinary Tract Infection, Adult A urinary tract infection (UTI) is an infection of any part of the urinary tract. The urinary tractincludes: The kidneys. The ureters. The bladder. The [...] Follow these instructions at home: Medicines Take ksqw-vyn-nfzbayn and prescription medicines only as told by [...] a female. Use each tissue one time whenyou wipe. Drink enough fluid to keep your [...] provider. Document Revised: 09/19/2020 Document Reviewed: 09/24/2020 TRAN.SL Patient Education 2023 [email or web address]. 08/11/2024 20:40:33 Nausea and Vomiting, Adult, Ijis-ue-Poji Nausea and Vomiting, Adult Nausea is feeling [...] fruit juice). ?Low-calorie sports drinks. Eat bland, qwxb-lc-wtkkfq foods in small amounts as you are able, such as: ?Bananas. ?Applesauce. ?Rice. ?Low-fat (lean) meats. ?Donnellson. ?Crackers. Avoid drinking fluids that have a lot of sugar or caffeine in them. This includes energy drinks, sports drinks, and soda. Avoid alcohol. Avoid spicy or fatty foods. General instructions Take denp-qbi-tiwvlpm and prescription medicines only as told by your doctor. Drink enough fluid to keep your pee (urine) pale yellow. Wash your hands often with soap and water for at least 20 seconds. If you cannot use soap and water, use hand eviscerator. Make sure that everyone in your home [...] your doctor about eating and drinking. Take ccgk-uqu-bqtjdbf and prescription medicines only as told by your doctor. Contact your doctor if your symptoms get worse or you have new symptoms. Keep all follow-up visits. This information is not intended to replace advice given to you by your health care provider. Make sure you discuss any questions you have with your health care provider. Document Revised: 08/19/2021 Document Reviewed: 08/19/2021 TRAN.SL Patient Education 2023 [email or web address]. Follow Up Care 08/11/2024 17:52:32 With:KATLIN FERNANDEZ Address: [address] [place], [place] [id number] Business (1) When:08/14/2024 20:26:58 Comments:Call Dr for diagnosis based follow up [facility] 06-16-2025 NoteED Patient Education Note Gastroenterology Nausea and Vomiting, [...] ? Low-calorie sports drinks. ??? Eat bland, qpgi-vx-rhqbmo foods in small amounts as you are able, such as: ? Bananas. ? Applesauce. ? Rice. ? Low-fat (lean) meats. ? Donnellson. ? Crackers. ??? Avoid drinking fluids that have a lot of sugar or caffeine in them. This includes energy drinks, sports drinks, and soda. ??? Avoid alcohol. ??? Avoid spicy or fatty foods. General instructions ??? Take fxmv-cpw-srrdqsc and prescription medicines only as told by your doctor. ??? Drink enough fluid to keep your pee (urine) pale yellow. ??? Wash your hands often with soap and water for at least 20 seconds. If you cannot use soap and water, use hand eviscerator. ??? Make sure that everyone in your [...] doctor about eating and drinking. ??? Take hpfx-rgz-mfimzhv and prescription medicines only as told by your doctor. ??? Contact your doctor if your symptoms get worse or you have new symptoms. ??? Keep all follow-up visits. This information is not intended to replace advice given to you by your health care provider. Make sure you discuss any questions you have with your health care provider. Document Revised: 08/19/2021 Document Reviewed: 08/19/2021 TRAN.SL Patient Education ? 2023 [email or web address]. Obstetrics and Gynecology Urinary Tract Infection, Adult A urinary tract infection (UTI) is an infection of any part of the urinary tract. The urinary tractincludes: ??? The kidneys. ??? The ureters. ??? [...] ??? Not being a (more content not included)...[facility] 08-11-2024 Evaluation + Plan note Diagnostic Tests Pending * Urine Culture 08/11/24 [facility] 05-28-2025 Hospital Discharge instructions Follow Up Care 07/23/2024 10:48:50 With:Lance BENTON, ZOEY Leyva, URO Address: When: Unknown [facility] 05-27-2025 Hospital Discharge instructions Patient Education 07/22/2024 21:46:42 Colic, Rjny-oh-Lorx Colic Colic refers to times when a baby cries for long periods of time for no reason. The crying usually starts in the afternoon or evening. Your baby may become fussy. He or she may also scream. Colic canlast until your baby is 3 or 4 [...] Drinks that have caffeine include coffee, tea, andcertain sodas. If you formula feed or bottle [...] an electric fan, washing machine, or vacuum shoe cleaner. Think about giving your baby a [...] your baby's doctor before giving your baby umpn-hwl-pnzkaqn colic drops. If you are asked to [...] the symptoms will go away. Get help rightaway. Call your local emergency services (911 in [...] provider. Document Revised: 12/27/2020 Document Reviewed: 12/27/2020 ElsePHRQL Patient Education 2023 [email or web address]. Follow Up Care 07/22/2024 17:09:14 With:Troy BOLIVAR Address: [address] [address]- Business (1) When:07/25/2024 21:46:25 Comments:Call to schedule a follow-up appointment with urology. Use the medications as prescribed. [facility] with any new or worsening symptoms. With:KATLIN FERNANDEZ Address: [address] [place] [address]- Business (1) When:Within 3 Day(s) [facility] 05-27-2025 NoteED Patient Education Note Pediatrics Colic Colic refers to times when a baby cries for long periods of time for no reason. The crying usually starts in the afternoon or evening. Your baby may become fussy. He or she may also scream. Colic canlast until your baby is 3 or 4 [...] caffeine. Drinks that have caffeine include coffee, tea,and certain sodas. ??? If you formula feed or bottle feed, burp your baby after every ounce of formula or breast milk.If you are , burp your baby every [...] be rocking, putting him or her in aswing, or taking him or her for a car or stroller ride. ? Do not place a baby who is in a car seat on top of any rocking or moving surface. For example, donot place the baby on top of a [...] sound could be from an electric fan, washingmachine, or vacuum shoe cleaner. ??? Think about giving your baby [...] time during the day. This helps your babysleep better at night. ??? Always put your baby on his or her back to sleep. Do not put your baby face down or on his or her stomach to sleep. ??? Do not shake or hit your baby. ??? Talk to your baby's doctor before giving your baby nxgk-jmv-vosuwba colic drops. ??? If you are asked [...] the symptoms will go away. Get help rightaway. Call your local emergency services (911 in the [place] Summary ??? Colic is when a baby cries for a long time for no reason. ??? If you formula feed or bottle feed, burp your baby after every ounce of formula or breast milk.If you are , burp your baby every 5 minutes. ??? Do a soothing, rhythmic activity with your baby. This could be rocking, putting him or her in aswing, or taking him or her for a [...] Document Reviewed: 12/27/2020 E (more content not included)...[facility]05-27-2025 Evaluation + Plan note Diagnostic Tests Pending * Urine Culture 07/22/24 [facility] 03-27-2025 [place] [address] Colonoscopy Procedure Report Signed Patient: Tracie Samuels MR#: [id number] : 1990 Acct:[id number] Age/Sex: 34 / F Adm Date: Loc: Room: Type: [facility] Attending Dr: Olga Fernandez DO Copies to: DO Katlin Bay DO~ Colonoscopy Date/Provider 05/22/2024 Olga Fernandez DO Narrative Procedure: Colonoscopy with biopsy Indication: abdominal pain, diarrhea. Last colonoscopy 5 yrs ago per pt Pre-operative diagnosis: abdominal pain, diarrhea Post-operative diagnosis: normal colon and TI s/p random colon bx obtained. Sedation: propofol per anesthesia dept O2 oximetry, hemodynamic monitoring was performed pre, during, and post procedure. Patient was identified, H&P completed, patient was given full explanation of the procedure as well as associatedrisks and written consent wasobtained prior to procedure. Patient expressed complete understanding of the procedure as well as alternatives to the procedure and to anesthesia and agreed to proceed with the procedure as indicated. Patient was immediately reassessed prior to IV sedation. Under IV sedation, patient was placed in the left lateral decubitus position. Digital rectal exam was performed and normal. Colonoscope was inserted and passed proximally to the cecum, which was identified by the ileocecal valve, appendiceal orifice and cecal floor. Terminal ileum was intubated andexamined. Colonoscope was slowly withdrawn with the findings as below. Rome bowel prep score was adequate. Findings: Terminal ileum: normal Cecum: Normal. Ascending colon: Normal. Hepatic flexure: Normal. Transverse colon: Normal. Splenic flexure: Normal. Descending colon: Normal. Sigmoid colon: Normal. Rectum: Normal. Retroflexed views: Normal Biopsy taken: Yes Complications: None EBL: Minimal Recommendations: -Repeat colonoscopy at 45 yrs for screening -Follow up pathology -Fiber rich diet. -Follow up in the office in 3-4 months -Follow up with PCP Following a period of recovery, patient was seen and given full explanation of the procedure. Patient tolerated the procedure well and will be discharged in satisfactory, stable condition. Olga Fernandez DO Documented By: Olga Fernandez DO 05/22/24 1014 Signed By: 05/22/24 1046 [facility]03-27-2025 [place] [id number] EGD Procedure Note Signed Patient: Tracie Samuels MR#: [id number] : 1990 Acct:[id number] Age/Sex: 34 / F Adm Date: 5 Loc: Room: Type: [facility] Attending Dr: Olga Fernandez DO Copies to: DO Katlin Bay DO~ Esophagogastroduodenoscopy Date/Provider Date: 05/22/2024 Olga Fernandez DO Narrative Narrative: Procedure: EGD with biopsy Indication: Nausea, vomiting, hematemesis, history of peptic ulcer disease, abd pain, diarrhea Pre-operative diagnosis: Nausea, vomiting, hematemesis, history of peptic ulcer disease, abd pain, diarrhea Post-operative diagnosis: LA grade A esophagitis s/p biopsy, lesion in mid esophagus s/p removed (suspect squamous papilloma), gastritis and gastric erosions, otherwise normal EGD Sedation: propofol per anesthesia dept O2 oximetry, hemodynamic monitoring was performed pre, during, and post procedure. Patient was identified, H&P completed, patient was given full explanation of the procedure as well as associatedrisks and written consent wasobtained prior to procedure. Patient expressed complete understanding of the procedure as well as alternatives to the procedure and to anesthesia and agreed to proceed with the procedure as indicated. Patient was immediately reassessed prior to IV sedation. Following IV sedation, patient was placed in the left lateral decubitus position. Bite block was inserted. Endoscope was passed through the mouth, into the esophagus. Endoscope was advanced into the stomach through the pyloricchannel and into the 2nd portion of duodenum by direct visualization. Endoscopewas withdrawn into the stomach and retroflexion was performed. The endoscope was straightened,the stomach was decompressed. Endoscope was withdrawn into the esophagus then completely removed with the findings as below. Findings: DUODENUM: The bulb and descending portion appeared normal. Biopsies were obtained from the small bowel for histology and to rule out Celiac disease. STOMACH: There was moderate erythema and few scattered small gastric erosions inthe gastric antrum.The stomach including retroflexed views was otherwise normal. Biopsies were obtained from the gastric antrum and body for histology and to rule out H. Pylori. ESOPHAGUS: GE junction (upper margin of gastric folds) was at 37 cm from incisors. There was LA grade a esophagitis at the GE junction status post biopsies with cold forceps obtained and sent to pathology. Esophagus otherwise normal Biopsy taken: Yes Complications: None EBL: Minimal Recommendations: -Follow up pathology -Resume normal diet -Continue PPI and lifestyle mod for GERD -Repeat EGD as needed only -Follow up in the office in 3-4 months -Follow up with PCP Following a period of recovery, patient was seen and given full explanation of the procedure. Patient tolerated the procedure well and will be discharged in satisfactory, stable condition. Olga Fernandez DO Documented By: Olga Fernnadez DO 05/22/24 1013 Signed By: 05/22/24 1042 [facility]03-27-2025 [place] [address] Gastroenterology H&P Signed Patient: Tracie Samuels MR#: [id number] : 1990 Acct:[id number] Age/Sex: 34 / F Adm Date: 5 Loc: Room: Type: [facility] Attending Dr: Olga Fernandez DO Copies to: DO Katlin [place] DO~ Date of Service: 05/22/2024 HISTORY & PHYSICAL: Patient's history with special attention to the cardiovascular, pulmonary systems and the current problem was reviewed with the patient immediately prior to the procedure. Present medications and doses reviewed in the EMR. Allergies and pertinent laboratory tests were also re viewedat this time in the EMR. The physical examination, as below, was then performed. Indication, assessment and HPI: 34-year-old female who presents for EGD and colonoscopy for nausea,vomiting, hematemesis, history of peptic ulcer disease, diarrhea, abdominal pain. Last EGD in 2018 and last colonoscopy 5 years ago. Family [...] Olga Fernandez DO 05/22/24 1012 Signed By: 05/22/24 1013 [facility]03-26-2025 Nuclear medicine Diagnostic study [facility] [address] [place] [address] Nuclear Medicine Report Signed Patient: Tracie Samuels MR#: [id number] : 1990 Acct:[id number] Age/Sex: 34 / F ADM Date: 5 Loc: [place] Room: Type: [facility] Attending Dr: Olga Fernandez DO Copies to: DO [place] Jeffrey S DO~ Ordering Provider: Olga Fernandez DO Date of Service: 05/21/24 [place] gastric emptying study: K92.0 - Hematemesis Nuclear medicine gastric emptying study TECHNIQUE: Patient ingested eggs containing 1.1 mCi of technetium 99m labeled sulfur colloid HISTORY: Hematemesis. Diarrhea. Stomach pain. Cholecystectomy. COMPARISON: None The 30 minute percent retention is 78%. The one-hour percent retention at 62%. The 2 hour percent retention is 56%. The three-hour percent retention is 25%. The 4% retention is 1%. [place] gastric emptying study IMPRESSION: Adequate gastric emptying. Impression dictated by: Quique Lai M.D.05/21/2024 3:21 PM Dictation Location: [place] [address] Transcribed By: OCTAVIANO 05/21/24 152 Dictated By: Quique Lai DO 05/21/24 1515 Signed By: 05/21/24 1521 [facility]02-26-2025 Evaluation note* Diagnosis Onset Date Resolution Status Admit Date Diarrhea acuteFebruary 2024 9:40amHematemesisacuteFebruary 2024 9:40am VomitinginactiveFebruary 2024 9:40am [facility] Work Phone: 1(719) 979-258912-11-2024 History of Present illness Narrative* Lluvia Mccarty, X RAY PHYSICIAN - 02/06/2024 1:15 PM EST Images from [...] Findings: No rash. Exam conducted with a mechanical intern present. Procedures ICD-10-CM 1. Pelvic pain in female R10.2 2. Left ovarian cyst N83.202 3. Menometrorrhagia N92.1 4. Dysmenorrhea N94.6 5. Adenomyosis N80.03 She was originally scheduled to return in January for repeat U/S and re- evaluate symptoms but her pain is persistent and she has gone back to [place] due to severity of pain. U/S [...] starting BCPs to prevent cyst formation. LMP 12/09- admits to severe cramping with menses and [...] and the decisions I made. Signature: Anthony Huang, DO Assessment & Plan documented in this encounterJohn J. Pershing VA Medical [id number] Evaluation note* Diagnosis Onset Date Resolution Status Admit Date Abdominal pain acuteDecember 2023 2:43pmUTI (urinary tract infection)acuteDecember 2023 2:43pmGERD (gastroesophageal reflux disease)noneactiveDecember 2023 2:43pmDiarrheaacuteFebruary 2024 9:40amHematemesisacuteFebruary 2024 9:40amVomitinginactiveFebruary 2024 9:40am [facility] Work Phone: 1(608) 450-794511-14-2024 History of Present illness Narrative* Anthony Blanton Montrellderek, DO - 01/10/2024 12:00 PM EST Images from the original note were not included. Subjective Tracie Samuels is a 33 y.o. female Chief Complaint Patient presents with Gynecologic Exam Pt presents for cyst. patient stated she was seen @ the ER ([facility]). She was advised by the ER [...] persistent and she has gone back to [place] due to severity of pain. Revisited U/S [...] DO Assessment & Plan documented in this encounterJohn J. Pershing VA Medical [id number] History of Present illness Narrative* Anthony Huang, DO - 01/02/2024 8:45 AM EST Images from the original note were not included. Subjective Tracie Samuels is a 33 y.o. female Chief Complaint Patient presents with Gynecologic Exam Pt presents for left ovary cyst. Patient states she went to [facility] as well as [facility] in [place] both telling her nothing was wrong. Patient states she was in too much pain and went to [facility] and that's when she found out [...] partial, right salpingectomy- endometriosis OTHER SURGICAL HISTORY 2012 tubes tied PELVIC LAPAROSCOPY 05/22/2023 op lap [...] hard time walking, sleeping. She went to [place] and was advised no cause found for pain. She then went to [place] and was dx with LOC. She states she has been in severe pain for 3 months. She is adamant she would like cyst removed. Discussed starting m edication to resolve cyst. LMP 12/09- admits to severe cramping with menses and [...] DO Assessment & Plan documented in this encounterJohn J. Pershing VA Medical [id number] Telephone encounter Note* Telephone Encounter - Carey Steve - 12/28/2023 9:44 AM EDT Patient called stating she was seen at [facility] this past Sunday. The patient said that they had found a cyst on the left ovary. She is in a lot of pain. The Er gave her 500 mg of citromloxicin, nausea pills and tramadol. The paitent was told she had a bacteria infection as well. She would like the soonest apt with . [facility] Pers[facility] Medical [id number] Miscellaneous Notes* Telephone Encounter - Carey Steve - 12/28/2023 9:44 AM EDT Patient called stating she was seen at [facility] this past Sunday. The patient said that they had found a cyst on the left ovary. She is in a lot of pain. The Er gave her 500 mg of citromloxicin, nausea pills and tramadol. The paitent was told she had a bacteria infection as well. She would like the soonest apt with . documented in this encounterJohn J. Pershing VA Medical CenterReddmlehfe60-72-2631 Hospital Discharge instructions* Discharge Instructions* Sera Turner [...] care or concern. [facility] Discharge instructions Patient Education 09/03/2023 22:12:36 Constipation, Adult, Gldh-dl-Uodd Constipation, Adult Constipation is when a person [...] high in fat and sugar, such as: ?Burmese fries. ?Hamburgers. ?Cookies. ?Candy. ?Soda. Drink enough fluid to keep your pee (urine) pale yellow. General instructions Exercise regularly or as told by your doctor. Try to do 150 minutes of exercise each week. Go to the restroom when you feel like you need to poop. Do not hold it in. Take tptx-dlo-oswafuc and prescription medicines only as told by [...] keep your pee (urine) pale yellow. Take zeit-ypp-czpdegw and prescription medicines only as told by your doctor. These include any fiber supplements. This information is not intended to replace advice given to you by your health care provider. Make sure you discuss any questions you have with your health care provider. Document Revised: 12/31/2019 Document Reviewed: 12/31/2019 TRAN.SL Patient Education 2022 [email or web address]. Follow Up Care 09/03/2023 20:40:38 With:Yanick Bolivar Address: [address] [place] [address] When:09/06/2023 21:57:30 With:KATLIN FERNANDEZ Address: [address] [place] [address] [facility] (1) When:09/06/2023 21:56:58 Comments:Take the Flomax once [...] ED for any new or worsening symptoms. [facility]07-08-2024 NoteED Patient Education Note Gastroenterology Constipation, [...] in fat and sugar, such as: ? Burmese fries. ? Hamburgers. ? Cookies. ? Candy. ? Soda. ? Drink enough fluid to keep your pee (urine) pale yellow. General instructions ? Exercise regularly or as told by your doctor. Try to do 150 minutes of exercise each week. ? Go to the restroom when you feel like you need to poop. Do not hold it in. ? Take gooz-rez-hnqsjvs and prescription medicines only as told by [...] your pee (urine) pale yellow. ? Take bbnh-psz-xtjcoss and prescription medicines only as told by your doctor. These include any fiber supplements. This information is not intended to replace advice given to you by your health care provider. Make sure you discuss any questions you have with your health care provider. Document Revised: 12/31/2019 Document Reviewed: 12/31/2019 TRAN.SL Patient Education ? 2022 [email or web address].[facility] 09-03-2023 Evaluation + Plan noteExtracted from:Title:ED NoteAuthor:Jorge Oliva DO ADate:09/03/23 Constipation (K59.00: Consti pation, unspecified) Flank pain [...] mL, IV, 983.61 mL/hr, for 30 day(s), Stopdate 10/03/23 20:54:00 EDT, STAT, Start date 09/03/23 20:55:00 EDT, 61 minute(s), Total volume (mL): 1,000, 97.7 kg, 2.02, m2 tamsulosin, 0.4 mg = 1 cap(s), Oral, Daily, # 10 cap(s), Refills(s) 0 Basic Metabolic Panel Beta hCG Quantitative CBC w/ Auto Diff eGFR Extra Blue Tube Extra SST Tube UA with Cult Rflx XR Abdomen 1 View [facility]07-02-2024 Hospital Discharge instructions Patient Education 08/27/2023 [...] told by your health care provider. Take cgfm-byd-txvbwgn and prescription medicines only as told by [...] provider. Document Revised: 04/25/2021 Document Reviewed: 04/25/2021 TRAN.SL Patient Education 2022 [email or web address]. Follow Up Care 08/27/2023 19:05:02 With:KATLIN FERNANDEZ Address: [address] [place] [address] [employer] (1) When:08/30/2023 Comments:Call Dr for diagnosis based follow up [facility]07-01-2024 NoteED Patient Education Note Orthopedics Flank [...] by your health care provider. ? Take nizg-wql-jkgwrml and prescription medicines only as told by [...] provider. Document Revised: 04/25/2021 Document Reviewed: 04/25/2021 Elsevier Patient Education ? 2022 [email or web address].[facility] 08-26-2023 Evaluation + Plan noteExtracted from:Title:ED NoteAuthor:Maikol POWER, JansenDate:08/26/23 Migraine headache (G43.909: Migraine, unspecified, not intractable, [...] IntraMuscular, Once, Stop date 08/26/23 9:29:00 EDT, STAT,Start date 08/26/23 9:29:00 EDT, 08/26/23 9:29:00 EDT [facility]06-30-2024 Hospital Discharge instructions Patient Education 08/26/2023 [...] Follow these instructions at home: Medicines Take osea-msm-hweuwss and prescription medicines only as told by [...] for Headache and Migraine Patients (CHAMP): headachemigraine.org [place] Migraine Foundation: americanmigrainefoundation.org National Headache Foundation: headaches.org [...] provider. Document Revised: 03/31/2020 Document Reviewed: 03/31/2020 TRAN.SL Patient Education 2022 [email or web address]. Follow Up Care 08/26/2023 09:12:23 With:KATLIN FERNANDEZ Address: [address] [place] [address] [facility] (1) When:08/29/2023 11:03:51 [facility]06-30-2024 NoteED Patient Education Note Neurology Chronic [...] these instructions at home: Medicines ? Take ohar-sqq-gwcbqoj and prescription medicines only as told by [...] For example, write d (more content not included)...[facility]02-09-2024 Hospital Discharge instructions Additional Instructions Ice to sore areas Take the ketorolac every 6 hours for pain take with food You can still take rmsb-jmx-ivtfuzp Tylenol every 4 hours Take tizanidine 3 times a day as needed May apply 1-2 lidocaine patches over sorest areas daily Follow-up with your family doctor Return to the ER for worsening pain additional injuries or any other concerns [facility] [facility] Work Phone: 1(355) 332-874312-01-2023 Hospital Discharge instructions Patient Education 01/26/2023 17:23:16 [...] to strengthen the arm. General instructions Take uirh-xet-nkvyftb and prescription medicines only as told by [...] provider. Document Revised: 10/28/2021 Document Reviewed: 10/28/2021 [employer] Patient Education 2022 [email or web address]. Follow Up Care 01/26/2023 16:23:01 With:KATLIN FERNANDEZ Address: [place] Business (1) When:01/29/2023 16:50:01 [facility]12-01-2023 Evaluation + Plan noteExtracted from: Title:ED NoteAuthor:Maikol POWER, JansenDate:01/26/23 Right shoulder pain (M25.511 : Pain in right shoulder) Orders: acetaminophen-oxycodone, 1 tab(s), Tab, Oral, Once, Stop date 01/26/23 17:13:00 EST, STAT, Start date 01/26/23 17:13:00 EST ketorolac, 60 mg = 2 mL, Injection, IntraMuscular, Once, Stop date 01/26/23 16:43:00 EST, STAT, Start date 01/26/23 16:43:00 EST, 01/26/23 16:43:00 EST [facility]11-26-2023 Hospital Discharge instructions Patient Education 01/21/2023 16:21:41 Shoulder Pain, Gbhy-nk-Psau Shoulder Pain Many things can cause shoulder [...] to strengthen the arm. General instructions Take ubln-wyn-ggfupby and prescription medicines only as told by [...] provider. Document Revised: 10/28/2021 Document Reviewed: 10/28/2021 [employer] Patient Education 2022 [employer] Follow Up Care 01/21/2023 13:25:00 With:Abraham LEE, AKASH Crain Address: [address] [place], [place] [address]- When:01/24/[address]15-2023 Evaluation note* Encounter Date Diagnosis Assessment Notes Treatment Notes Treatment Clinical Notes Oct, Asthma exacerbation (ICD-10 - J4 5.901) Oct,sthma (ICD-10 - J45.909) Drive Other 07-01-2023 Hospital Discharge instructions Patient Education [...] water added (diluted fruit juice). Eat bland, hdkx-qj-dzrmit foods in small amounts as you are able. These foods include bananas, applesauce, rice, lean meats, toast, and crackers. Avoid fluids that contain a lot of sugar or caffeine, such as energy drinks, sports drinks, and soda. Avoid alcohol. Avoid spicy or fatty foods. General instructions Take nwop-bwu-mludhab and prescription medicines only as told by your health care provider. Drink enough fluid to keep your urine pale yellow. Wash your hands often using soap and water for at least 20 seconds. If soap and water are not available, use hand eviscerator. Make sure that everyone in your household [...] eating and drinking to prevent dehydration. Take eboo-eoc-racsmcu and prescription medicines only as told by [...] provider. Document Revised: 08/19/2021 Document Reviewed: 08/19/2021 [employer] Patient Education 2022 [employer]. Follow Up Care 08/25/2022 17:16:58 With:KATLIN FERNANDEZ Address: [place], [place] Business (1) When:08/28/2022 21:41:55 [facility]06-30-2023 Evaluation + Plan noteExtracted from: Title:ED NoteAuthor:Curt Yanes DODate:08/25/22 N&V (nausea and vomiting) (R 11.2: Nausea [...] PRN Nausea/Vomiting, # 20 tab(s), Refills(s) 0, Pharmacy[id number], 149, cm, 08/25/22 17:36:00 EDT, Height/Length Dosing, [...] 6 EA, Refills(s) 0, [facility]acy: [facility] #[id number], 149, cm, 08/25/22 17:36:00 EDT, Height/Length Dosing, 70, kg, 08/25/22 17:36:00 EDT, Weight Dosing Future Scheduled Tests Radiology* XR Hand 3+ Views Left 10/24/21 [facility]06-14-2023 Evaluation note* Encounter Date Diagnosis Assessment Notes Treatment Notes Treatment Clinical Notes Jul, Depression with anxiety (ICD-10 - F41.8) Drive Other 05-08-2023 Evaluation note* Encounter Date Diagnosis Assessment Notes Treatment Notes Treatment Clinical Notes June, Gastroesophageal ref lux disease, esophagitis presence not specified (ICD-10 - [...] already had workup with GI and is e stablished with dr ponce. June,OtherPatient to follow up with ortho as noted in HPI for orthopedic concerns. Drive Other 05-03-2023 Hospital Discharge instructions Patient Education [...] sitting or lying down. General instructions Take gqqh-kci-gllzdmo and prescription medicines only as told by [...] provider. Document Revised: 01/02/2020 Document Reviewed: 01/02/2020 [employer] Patient Education 2022 [email or web address]. Follow Up Care 06/28/2022 17:33:35 With:KATLIN FERNANDEZ Address: [place], [place] [facility] (1) When:07/01/2022 19:16:17 Comments:Call the office of [...] you develop any new or worsening symptoms. [facility]04-27-2023 Hospital Discharge instructions Patient Education 06/22/2022 15:58:39 Crutch Use, Adult, Ealc-zu-Geij Crutch Use, Adult Crutches are used to [...] you. Keep your weight over the hand biomedical engineering aide. 3.Bring the good leg forward to meet the crutches or to land a little bit ahead of them. 4.Repeat. Going up steps If there is no handrail: 1.Walk up to steps and put weight on hand biomedical engineering aide to step up. 2.Step up with your [...] provider. Document Revised: 09/03/2019 Document Reviewed: 09/03/2019 [employer] Patient Education 2022 [employer]. 06/22/2022 15:58:39 Contusion, Nvyu-bs-Crur Contusion A contusion is a deep bruise. [...] sitting or lying down. General instructions Take smie-xkf-jgsywsx and prescription medicines only as told by [...] is also called RICE. Youmay be given lcmx-koy-jwewnev medicines for pain. Contact a doctor if [...] provider. Document Revised: 12/08/2021 Document Reviewed: 12/08/2021 [employer] Patient Education 2022 [email or web address]. Follow Up Care 06/22/2022 11:39:29 With:KATLIN FERNANDEZ Address: [place], [place] Business (1) When:06/25/2022 15:58:10 only if needed [facility]04-27-2023 Evaluation + Plan noteExtracted from: Title:ED NoteAuthor:Rufus BENTON, TimDate:06/22/22 1. Contusion of left lower e xtremity [...] 14 tab(s), Refills(s) 0, [facility]acy: [facility] #[id number], 149, cm, 06/22/22 11:45:00 EDT, Height/Length Dosing, 70, kg, 06/22/22 11:45:00 EDT, Weight Dosing tramadol, 50 mg = 1 tab(s), Tab, Oral, Once, Stop date 06/22/22 14:46:00 EDT, STAT, Start date 06/22/22 14:46:00 EDT, 06/22/22 14:46:00 EDT XR Femur Min 2 Views Left XR Foot 3+ Views Left XR Tib/Fib Left 2 View Future Scheduled Tests Radiology* XR Hand 3+ Views Left 10/24/21 [facility]04-04-2023 Evaluation note* Encounter Date Diagnosis Assessment Notes Treatment Notes Treatment Clinical Notes May, Depression with anxiety (ICD-10 - F41.8) Patient states the zoloft helps but she only remembers to take it sometimes. May,Musculoskeletal back pain (ICD-10 - M54.9)Patient to cont tylenol PRN, will give toradol injection in office today for antiinflammatory. Rest, gentle stretching. Recheck/consider xrays if not improving. No bruising noted on exam. May,astroesophageal reflux disease, esophagitis presence not specified (ICD-10 - K21.9)Patient complains of frequent nausea. Of note, she has not been taking her PPI. She also smokes marijuana daily for long period of time so possibly could be cannabinoid hyperemesis syndrome. She is not interested in stopping marijuana. Advised to resume her PPI. May,Noncompliance (ICD-10 - Z91.199)Lengthy discussion with patient in office today. She told nursing staff she was taking all her medsbut on closer questioning she is really not taking anything consistently at all. She cites transportation as her biggest barrier as she doesnt drive so cant go roller picker her meds. Philip coord Marry will reach out to patient regarding starting pill pack to help. May,Seizure disorder (ICD-10 - P94.015)Patient states she only takes her oxtellar when she feels a seizure coming on. She is aware this is not the correct way to take it Drive Other 03-07-2023 Hospital Discharge instructions Patient Education [...] risk for lung collapse and pneumonia. Medicines. Ekjp-lgo-xdbtewb or prescription medicines may be given to control pain. Injection of a numbing medicine around the nerve near your injury (nerve block). Follow these instructions at home: Medicines Take zjen-kjd-qssbzik and prescription medicines only as told by [...] as fried or sweet foods. ?Take an fgna-fim-lfhwdcw or prescription medicine for constipation. Managing pain, [...] 11/07/2001 Document Revised: 03/13/2018 Document Reviewed: 03/13/2018 [employer].SL Patient Education 2020 [employer] Inc. Follow Up Care 05/02/2022 11:08:23 With:KATLIN JIM Address: [place], [place] Business (1) When:05/05/2022 12:11:05 [facility]03-07-2023 Evaluation + Plan noteExtracted from: Title:ED NoteAuthor:Maikol POWER, JansenDate:05/02/22 Fall from standing (W19.XXXA : Unspecified fall, [...] Radiology* XR Hand 3+ Views Left 10/24/21 [facility]02-14-2023 Evaluation note* Encounter Date Diagnosis Assessment Notes Treatment Notes Treatment Clinical Notes Mar, Depression with anxiety (ICD-10 - F41.8) Patient was hospitalized for 1 week [place], she was started on zoloft and trazodone. She feelsthese are helping and would like to continue. She declined their recommendation to see psychiatristfor follow up, is not seeing counselor, declines referral. Will cont zoloft and see back in 3 months. 14 Mar,cute bronchitis (ICD-10 - J20.9) Mar,Sore throat (ICD-10 - J02.9) Mar,ough (ICD-10 - R05.9) Mar,sthma (ICD-10 - J45.909)Again reiterated to patient that she is to stay on her breo continuously to avoid flare ups/bronchitis. Mar,Insomnia (ICD-10 - G47.00)Discussed healthy sleep habits. Mar,History of diabetes mellitus (ICD-10 - Z86.39)Discussed with patient that she does not have diabetes or prediabetes based on her lab results hereboth today and in recent past. will cont to monitor. Drive Other 01-13-2023 Evaluation + Plan noteExtracted from:Title: ED NoteAuthor:Urban Verdin PA-C CDate:03/10/22 Suicidal ideation (R45.851: Suicidal ideations) Orders: Automated [...] Radiology* XR Hand 3+ Views Left 10/24/21 [facility]11-30-2022 Evaluation + Plan noteExtracted from: Title:ED NoteAuthor:Bret Eckert JDate:01/25/22 1. Nausea and vomiting (R11. 2: Nausea with vomiting, unspecified) 2. Acute asthma exacerbation (J45.901: Unspecified asthma with (acute) exacerbation) Orders: albuterol-ipratropium, 3 mL, Soln-Inh, Inhalation, Once, Stop date 01/25/22 0:51:00 EST, STAT, Start date 01/25/22 0:51:00 EST predniSONE, 40 mg = 2 tab(s), Oral, Daily, X 5 day(s), # 10 tab(s), Refills(s) 0, Pharmacy: [facility] #[id number], 150, cm, 01/25/22 0:07:00 EST, Height/Length Dosing, 96, kg, 01/25/22 0:07:00 EST, Weight Dosing promethazine, 12.5 mg = 0.5 mL, Injection, IV Push, Once, Stop date 01/25/22 0:51:00 EST, STAT, Start date 01/25/22 0:51:00 EST, 01/25/22 0:51:00 EST promethazine, 25 mg = 1 tab(s), Oral, q6hr, PRN as needed for nausea/vomiting, # 12 tab(s), Refills(s) 0, [facility]: [facility] #[id number], 150, cm, 01/25/22 0:07:00 EST, Height/Length Dosing, [...] Radiology* XR Hand 3+ Views Left 10/24/21 [facility]11-30-2022 Hospital Discharge instructions Patient Education 01/25/2022 [...] water added (diluted fruit juice). Eat bland, fotq-lo-uhprhq foods in small amounts as you are able. These foods include bananas, applesauce, rice, lean meats, toast, and crackers. Avoid fluids that contain a lot of sugar or caffeine, such as energy drinks, sports drinks, and soda. Avoid alcohol. Avoid spicy or fatty foods. General instructions Take xerm-umy-rrysuqh and prescription medicines only as told by your health care provider. Drink enough fluid to keep your urine pale yellow. Wash your hands often using soap and water. If soap and water are not available, use hand eviscerator. Make sure that all people in your [...] eating and drinking to prevent dehydration. Take yhpk-dpb-jbgewzj and prescription medicines only as told by [...] 02/12/2006 Document Revised: 06/06/2019 Document Reviewed: 07/23/2018 [employer]SL Patient Education 2020 [employer]. 01/25/2022 02:47:12 Asthma Attack Asthma Attack Acute [...] smoke. Air pollutants such as dust, household fisheries director, hair sprays, aerosol sprays, paint fumes, strong [...] Follow these instructions at home: Medicines Take zobr-mig-iryrmgp and prescription medicines only as told by your health care provider. Keep your medicines up-to-date and available. If you are more than 24 weeks and you are prescribed any new medicines, tell your tooling mechanic about those medicines. If you were prescribed [...] 05/30/2007 Document Revised: 06/03/2019 Document Reviewed: 03/16/2017 [employer] Patient Education 2020 [employer]. Follow Up Care 01/25/2022 00:01:17 With:KATLIN FERNANDEZ Address: [place], [place] [facility] (1) When:01/28/2022 Comments:Return to the emergency room if your vomiting recurs, shortness of breath recurs or any new symptoms. [facility]11-14-2022 Hospital Discharge instructions Patient Education 01/09/2022 [...] height. This can be done either in [place]hi ([place] or metric measurements. Note that charts are available to help you find your BMI quickly and easily without having to do these calculations yourself. To calculate your BMI in [place]hi ([place] measurements, your health care provider will: [...] medical problems. BMI can be measured using Bangladeshi measurements or metric measurements. To interpret your [...] 10/24/2004 Document Revised: 01/25/2018 Document Reviewed: 12/26/2017 [employer].SL Patient Education 2020 [employer]. 01/09/2022 19:06:01 Sinusitis, Adult Sinusitis, Adult Sinusitis [...] at home: Medicines Take, use, or apply imqx-ynx-bblbewb and prescription medicines only as told by [...] and water are not available, use hand eviscerator. Do not smoke. Avoid being around people [...] 02/12/2006 Document Revised: 07/15/2018 Document Reviewed: 07/15/2018 Elsevier Patient Education 2020 [employer] Follow Up Care 01/09/2022 16:53:22 With:KATLIN FERNANDEZ DO Address: [place], [place] When: Unknown [facility] 11-02-2022 Hospital Discharge instructions [...] told by your health care provider. Take qmsz-jkc-jjluvxq and prescription medicines only as told by [...] 04/05/2006 Document Revised: 01/25/2018 Document Reviewed: 04/27/2017 [employer] Patient Education 2020 [employer]. Follow Up Care 12/27/2021 20:30:57 With:KATLIN PORTERERS Address: [place], [place] Business (1) When:Within 3 Day(s) [facility]11-01-2022 Evaluation + Plan noteExtracted from: Title:ED NoteAuthor:Curt Yanes DO.Date:12/27/21 Flank pain (R10.9: Unspecifi ed abdominal pain) Orders: lidocaine topical, 1 patch(es), Patch, TransDermal, Once, Stop date 12/27/21 23:25:00 EDT, STAT, Start date 12/27/21 23:25:00 EDT lidocaine topical, 1 patch(es), Topical, Daily, 7 patch(es), Refill(s) 0, apply 12 hours on and 12 hours off daily, [facility] #[id number], 150, cm, 12/27/21 20:34:00 EDT, Height/Length Dosing, 75, kg, 12/27/21 20:34:00 EDT, Weight Dosing Sodium Chloride 0.9% intravenous solution, Soln-IV, Misc, Once, Stop date 12/27/21 20:49:53 EDT, Physician Stop, 12/27/21 20:49:53 EDT Sodium Chloride 0.9% intravenous solution, 1,000 mL, Soln-IV, IV, Once, Stop date 12/27/21 20:48:00EDT, STAT, Start date 12/27/21 20:48:00 EDT, mL/hr, [...] Radiology* XR Hand 3+ Views Left 10/24/21 [facility]10-06-2022 Evaluation note* Encounter Date Diagnosis Assessment Notes Treatment Notes Treatment Clinical Notes 06 Oct, 2022 Dysuria (ICD-10 - R30.0) Nov,UTI (urinary tract infection) (ICD-10 - N39.0)Increase water intake. Will call with culture results. Nov,Insomnia (ICD-10 - G47.00)Reviewed proper sleep habits/schedule. Drive Other 09-13-2022 Evaluation + Plan noteExtracted from:Title: ED NoteAuthor:Urban Verdin PA-C, CDate:11/08/21 Urinary tract infection (N39 .0: Urinary tract infection, site not specified) Diagnostic Tests Pending * Urine Culture 11/08/21 Future Scheduled Tests Laboratory* Fecal WBC Lactoferrin 06/15/21 * Giardia lamblia, Direct Detection EIA 06/15/21 * O & P Exam, Routine 06/15/21 * Clostridium difficile by PCR 06/15/21 * Enteric Panel by PCR 06/15/21 Radiology* XR Hand 3+ Views Left 10/24/21 [facility] Hospital Discharge instructions Patient Education 11/08/2021 [...] Treatment for this condition includes: Antibiotic medicine. Sdza-itd-okanckr medicines to treat discomfort. Drinking enough water [...] Follow these instructions at home: Medicines Take vlms-cjl-wvukzaw and prescription medicines only as told by [...] 11/22/2005 Document Revised: 01/30/2019 Document Reviewed: 08/22/2018 [employer]SL Patient Education 2020 [employer]. Follow Up Care 11/08/2021 06:44:01 With:KATLIN FERNANDEZ Address: [place], [place] Business (1) When:11/11/2021 10:07:12 [facility]08[facility]29[facility] Hospital Discharge instructions Patient Education 10/24/2021 [...] discomfort: Managing pain, stiffness, and swelling Take alul-myy-nukgdqb and prescription medicines only as told by [...] 03/10/2016 Document Revised: 11/08/2018 Document Reviewed: 11/08/2018 [employer].SL Patient Education 2020 [employer]. Follow Up Care 10/24/2021 18:59:06 With:Roya Rosario Address: [address] [place] [address] Business (1) When:10/27/2021 21:03:45 With:KATLIN FERNANDEZ Address: [place], [place] Business (1) When:Within 3 Day(s) [facility] Hospital Discharge instructions Patient Education 10/24/2021 [...] height. This can be done either in Bangladeshi ([place].S[place] or metric measurements. Note that charts are available to help you find your BMI quickly and easily without having to do these calculations yourself. To calculate your BMI in [place]hi ([place] measurements, your health care provider will: [...] medical problems. BMI can be measured using Bangladeshi measurements or metric measurements. To interpret your [...] 10/24/2004 Document Revised: 01/25/2018 Document Reviewed: 12/26/2017 [employer] Patient Education 2020 [employer]. 10/24/2021 18:39:22 Hand Pain Hand Pain Many [...] discomfort: Managing pain, stiffness, and swelling Take ttqe-mra-ksihenw and prescription medicines only as told by [...] 03/10/2016 Document Revised: 11/08/2018 Document Reviewed: 11/08/2018 TRAN.SL Patient Education [employer]. Follow Up Care 10/24/2021 18:06:06 With:KATLIN FERNANDEZ DO Address: [place], [place] When: Unknown [facility] [id number] Evaluation + Plan noteExtracted from:Title: ED NoteAuthor:Curt Yanes DODate:10/24/21 Hand pain (M79.643: Pain in unspecified hand) [...] Radiology* XR Hand 3+ Views Left 10/24/21 [facility] Evaluation + Plan note Future Scheduled Tests Radiology* XR Hand 3+ Views Left 10/24/21 [facility]07-26-2022 Evaluation + Plan noteExtracted from: Title:ED NoteAuthor:Maikol POWER, JansenDate:09/20/21 Fall (W19.XXXA: Unspecified fall, initial encounter) Finger sprain (S63.619A: Unspecified sprain of unspecified finger, initial encounter) Orders: Finger Splint Application XR Hand 3+ Views Left Future Appointments Appointment Date:09/21/2021 09:30:00 AM Scheduled Provider:Brayden POPE MD Location:[facility] App[facility] Type:[facility] Follow Up Future Scheduled Tests Laboratory* Fecal WBC Lactoferrin 06/15/21 * Giardia lamblia, Direct Detection EIA 06/15/21 * O & P Exam, Routine 06/15/21 * Clostridium difficile by PCR 06/15/21 * Enteric Panel by PCR 06/15/21 [facility] Hospital Discharge instructions Patient Education 09/20/2021 [...] are sitting or lying down. Medicines Take afqs-emq-izghiwx and prescription medicines only as told by [...] 03/22/2005 Document Revised: 01/25/2018 Document Reviewed: 05/04/2017 TRAN.SL Patient Education [facility]. Follow Up Care 09/20/2021 09:04:52 With:KATLIN FERNANDEZ Address: [place], [place] Business (1) When:09/23/2021 10:02:19 [facility]07-19-2022 Evaluation + Plan noteExtracted from: Title:ED NoteAuthor:Kanu Kelly DODate:09/13/21 Carpal tunnel syndrome, bila teral (G56.03: Carpal [...] Date:09/21/2021 09:30:00 AM Scheduled Provider:Brayden POPE MD Location:[facility] Appointment Type:[facility] Follow Up Future Scheduled Tests Laboratory* Fecal WBC Lactoferrin 06/15/21 * Giardia lamblia, Direct Detection EIA 06/15/21 * O & P Exam, Routine 06/15/21 * Clostridium difficile by PCR 06/15/21 * Enteric Panel by PCR 06/15/21 [facility] Hospital Discharge instructions Follow Up Care 09/13/2021 10:02:01 With:Roya Rosario Address: [address] [place] [address]- Business (1) When:09/16/2021 10:53:07 With:Lars Maldonado Address: [facility] [address] [employer] (1) When:09/16/2021 10:53:03 [facility]05-28-[facility] Hospital Discharge instructions Patient Education 07/22/2021 [...] water added (diluted fruit juice). Eat bland, rdfx-ui-qvejwz foods in small amounts as you are able. These foods include bananas, applesauce, rice, lean meats, toast, and crackers. Avoid fluids that contain a lot of sugar or caffeine, such as energy drinks, sports drinks, and soda. Avoid alcohol. Avoid spicy or fatty foods. General instructions Take xdmz-dmk-subfgsk and prescription medicines only as told by your health care provider. Drink enough fluid to keep your urine pale yellow. Wash your hands often using soap and water. If soap and water are not available, use hand eviscerator. Make sure that all people in your [...] eating and drinking to prevent dehydration. Take kndz-jhd-rmprdhs and prescription medicines only as told by [...] 02/12/2006 Document Revised: 06/06/2019 Document Reviewed: 07/23/2018 TRAN.SL Patient Education 2020 [employer] Follow Up Care 07/22/2021 20:11:40 With:KATLNI FERNANDEZ Address: [place] Business (1) When:Within 3 Day(s) [facility]05-27-20[facility] Evaluation + Plan noteExtracted from: Title:ED NoteAuthor:Curt Yanes DODate:07/22/21 Nausea and vomiting (R11.2: Nausea with vomiting, unspecified) Orders: Al hydroxide/Mg hydroxide/simethicone, 30 mL, Susp-Oral, Oral, Once, Stop date 07/22/21 22:22:00 EDT, STAT, Start date 07/22/21 22:22:00 EDT atropine/hyoscyamine/PB/scopolamine, 10 mL, Elixir, Oral, Once, Stop date 07/22/21 22:22:00 EDT, STAT, Start date 07/22/21 22:22:00 EDT famotidine, 20 mg = 1 tab(s), Oral, BID, # 60 tab(s), Refills(s) 0, Pharmacy: [facility] [id number] [address], 150, cm, 07/22/21 20:23:00 EDT, Height/Length Dosing, 70, kg, 07/22/21 20:23:00 EDT, Weight Dosing lidocaine topical, 200 mg, 10 mL, Soln-Oral, Oral, Once, Stop date 07/22/21 22:22:00 EDT, STAT, Start date 07/22/21 22:22:00 EDT promethazine, 12.5 mg = 1 supp, Rectal, q8hr, # 6 EA, Refills(s) 0, Pharmacy: [facility] [address], 150, cm, 07/22/21 20:23:00 EDT, Height/Length Dosing, 70, kg, 07/22/21 20:23:00 EDT, Weight Dosing promethazine, 25 mg = 1 supp, Supp, Rectal, Once, Stop date 07/22/21 21:10:00 EDT, STAT, Start date07/22/21 21:10:00 EDT, 07/22/21 21:10:00 EDT Future Appointments Appointment Date:09/21/2021 09:30:00 AM Scheduled Provider:Brayden POPE MD Location:[facility] App[facility] Type:[facility] Follow Up Future Scheduled Tests Laboratory* Fecal WBC Lactoferrin 06/15/21 * Giardia lamblia, Direct Detection EIA 06/15/21 * O & P Exam, Routine 06/15/21 * Clostridium difficile by PCR 06/15/21 * Enteric Panel by PCR 06/15/21 [facility]05-26-20[facility] Evaluation + Plan noteExtracted from: Title:ED NoteAuthor:Danette Marcial PA-CDate:07/21/21 1. Strep throat (J02.0: Stre ptococcal pharyngitis) Ordered: clindamycin, 300 mg = 1 cap(s), Oral, q8hr, X 10 day(s), # 30 cap(s), Refills(s) 0, Pharmacy: [facility] [address], 150, cm, 07/20/21 23:23:00 EDT, Height/Length Dosing, [...] Date:09/21/2021 09:30:00 AM Scheduled Provider:Brayden POPE MD Location:[facility] App[facility]ment Type:[facility] Follow Up Future Scheduled Tests Laboratory* Fecal WBC Lactoferrin 06/15/21 * Giardia lamblia, Direct Detection EIA 06/15/21 * O & P Exam, Routine 06/15/21 * Clostridium difficile by PCR 06/15/21 * Enteric Panel by PCR 06/15/21 [facility] Hospital Discharge instructions Patient Education 07/21/2021 [...] Follow these instructions at home: Medicines Take weiz-zuh-hjqhrml and prescription medicines only as told by [...] 02/09/2001 Document Revised: 05/02/2019 Document Reviewed: 05/02/2019 TRAN.SL Patient Education 2019 [email or web address]. Follow Up Care 07/20/2021 22:26:00 With:KATLIN FERNANDEZ DO Address: [place], [place] When:07/24/2021 [facility]04-20-2022 Hospital Discharge instructions Patient Education 06/15/2021 [...] medicines. These include steroids, antibiotics, and some bfgy-ywm-xqryucn medicines, such as aspirin or ibuprofen. Having [...] Follow these instructions at home: Medicines Take wejb-ksa-vjuhtpn and prescription medicines only as told by [...] 02/06/2002 Document Revised: 07/02/2018 Document Reviewed: 07/02/2018 TRAN.SL Patient Education 2020 [email or web address]. Follow Up Care 06/14/2021 12:44:31 With:TOSHIA BENTON, LORAINE Owen, [facility] Address: [address] [place] [address]. [address] [place] [phone] When:3 months Comments:Elevated liver enzyme. [facility] [phone] Evaluation + Plan note Future Scheduled Tests Laboratory* Fecal WBC Lactoferrin 06/15/21 * Giardia lamblia, Direct Detection EIA 06/15/21 * O & P Exam, Routine 06/15/21 * Clostridium difficile by PCR 06/15/21 * Enteric Panel by PCR 06/15/21 [facility]04-20-2022 Evaluation + Plan note Future Scheduled Tests Laboratory* Fecal WBC Lactoferrin 06/15/21 * Giardia lamblia, Direct Detection EIA 06/15/21 * O & P Exam, Routine 06/15/21 * Clostridium difficile by PCR 06/15/21 * Enteric Panel by PCR 06/15/21 [facility] 04-20-2022 Evaluation + Plan note Future Scheduled Tests Laboratory* Fecal WBC Lactoferrin 06/15/21 * Giardia lamblia, Direct Detection EIA 06/15/21 * O & P Exam, Routine 06/15/21 * Clostridium difficile by PCR 06/15/21 * Enteric Panel by PCR 06/15/21 Radiology* XR Hand 3+ Views Left 10/24/21 [facility] 04-20-2022 Evaluation note* Encounter Date Diagnosis Assessment Notes Treatment Notes Treatment Clinical Notes May, Cough (ICD-10 - R05.9) May,Influenza A (ICD-10 - J10.1)She is positive for flu but outside treatment [...] the office if symptoms do not resolve. Drive Other 01-05-2022 Evaluation note* Encounter Date Diagnosis Assessment Notes Treatment Notes Treatment Clinical Notes Feb, Cough (ICD-10 - R05.9) Drive Other 09-29-2021 Evaluation note* Encounter Date Diagnosis Assessment Notes Treatment Notes Treatment Clinical Notes Oct, Toe fracture, left (ICD-10 - S92 .912A) Foot fracture home care material was printed [...] only. She will be following-up with ortho. Oct,naphylactic reaction to bee sting (ICD-10 - T63.441A) Hx of bee anaphylaxis. Area is localized, no systemic sx or infection at this time, airway patent, breahting normal. Advised patient to have epi on hand in case of future stings. Follow-up if any future reactions occur. Oct,sthma (ICD-10 - J45.909) Patient requesting refill of breo. Asthma remains well controlled on current regimen. Drive Other 08-17-2021 Evaluation note* Encounter Date Diagnosis Assessment Notes Treatment Notes Treatment Clinical Notes Sep, Carpal tunnel syndrome (ICD-10 - G56.00) Rx given for cock up wrist splints to wear at night. Advised if not improving over next 2-4 W and would send to ortho for possible injections. Drive Other Evaluation + Plan note Future Appointments Appointment Date:06/15/2021 12:20:00 PM Scheduled Provider:Diandra Rahman CNP Location:[facility] Appointment Type:[facility] Follow Up [facility] Evaluation + Plan note Future Appointments Appointment Date:06/28/2021 11:00:00 AM Scheduled Provider: Location:[facility] Appointment Type:Surgery PAT COVID Testing Future Scheduled Tests Laboratory* Fecal WBC Lactoferrin 06/15/21 * Giardia lamblia, Direct Detection EIA 06/15/21 * O & P Exam, Routine 06/15/21 * Clostridium difficile by PCR 06/15/21 * Enteric Panel by PCR 06/15/21 Radiology* US Abdomen Complete 06/15/21 [facility] Evaluation noteNo InformationNort [employer] Other evaluubbcr noteNo assessment information available [facility] Work Phone: Evaluegzyk note* Diagnosis Radicular pain of right upper extremity- Primary Acute pain of right shoulder documented [facility] this encounter [facility]* Diagnosis Pelvic pain in female Unspecified symptom associated with female genital organs Menometrorrhagia Excessive or frequent menstruation Dysmenorrhea Dyspareunia, female Left ovarian cyst Other and unspecified ovarian cyst documented in this encounter [facility]* [...] human papillomavirus (HPV) documented in this encounter [facility]* Diagnosis Pelvic pain in female Unspecified symptom associated with female genital organs Left ovarian cyst Other and unspecified ovarian cyst Menometrorrhagia Excessive or frequent menstruation Dysmenorrhea Adenomyosis Endometriosis of uterus documented in this encounter [facility] HealthcareEvaluation note* Diagnosis Left flank pain- Primary Abdominal pain, unspecified site documented in this encounter [facility] Author Olga Fernandez Memorial Health SystemNote Date/TimeMarch 2024 10:13[place] [address] Gastroenterology H&P Signed Patient: Tracie Samuels MR#: [id number] : 1990 Acct:[id number] Age/Sex: 34 / F Adm Date: 5 Loc: Room: Type: [facility] Attending Dr: Olga Fernandez DO Copies to: DO Katlin Bay DO~ Date of Service: 05/22/2024 HISTORY & PHYSICAL: Patient's history with special attention to the cardiovascular, pulmonary systems and the current problem was reviewed with the patient immediately prior to the procedure. Present medications and doses reviewed in the EMR. Allergies and pertinent laboratory tests were also re viewedat this time in the EMR. The physical examination, as below, was then performed. Indication, assessment and HPI: 34-year-old female who presents for EGD and colonoscopy for nausea,vomiting, hematemesis, history of peptic ulcer disease, diarrhea, abdominal pain. Last EGD in 2018 and last colonoscopy 5 years ago. Family [...] signed by Olga Fernandez DO> 05/22/24 1013 [facility] Work Phone: Hiswumm general Narrative - Reported* Type Description Date Medical History Ectopic Medical HistoryasthmaMedical Historyabdominal adhesionsMedical Historychronic stomach painMedical HistoryADHDMedical HistoryBi-polarSurgical Historyexpl lap, salpingectomy for rt ectopic pregnancySurgical HistoryGALLBLADDERSurgical HistoryTONSILLECTOMYHospitalization Ahdteyehymyibvj5201Tcsaebckhqguqag History SEE ABOVEHospitalization Historyasthma, djotnaloxr5-61-42Svuwvonvtqdvhnp History asthma, jrjczvclko9-86-02 [facility] [employer] Other History general Narrative - ReportedNortGrand View Health [employer] Other History general Narrative - Reported* Type Description Date Medical History Ectopic Medical HistoryasthmaMedical Historyabdominal adhesionsMedical Historychronic stomach painMedical HistoryADHDMedical HistoryBi-polarMedical HistorySeizures Surgical Historyexpl lap, salpingectomy for rt ectopic pregnancy6-2009Surgical HistoryGALLBLADDERSurgical HistoryTONSILLECTOMYHospitalization Historycesarean 2008Hospitalization HistorySEE ABOVEHospitalization Historyasthma, bronchitis 8-63-72Updvrpjfrqbwwsc Historyasthma, qtjynroyci1-49-14 Drive Other History general Narrative - Reported* Type Description Date Medical History Ectopic Medical HistoryasthmaMedical Historyabdominal adhesionsMedical Historychronic stomach painMedical HistoryADHDMedical HistoryBi-polarMedical HistorySeizures Medical HistoryDepressionSurgical Historyexpl lap, salpingectomy for rt ectopic pregnancy6-2009Surgical HistoryGALLBLADDERSurgical HistoryTONSILLECTOMY Hospitalization Opcktroqfxkjagg1376Hkzkotkmsgepdre HistorySEE ABOVE Hospitalization Historyasthma, -78-39Geqdfpglpbqzldx Historyasthma, nkkddiejmj5-04-78Imxyzelmnwyjxsz HistoryPsyciatric-depression, suicidal03/17/22 Drive Other Hospital course Narrative No data available for this section [facility] Hospital Discharge instructions No data available for this section [facility] Hospital Discharge instructions Additional Instructions Ice to sore areas Rest ice elevate your ankle Wear the Aircast for support stability Take the ketorolac every 6 hours for pain You can take the tizanidine muscle relaxer 3 times a day for pain Follow-up with family doctor for recheck Return to the ER for worsening pain additional injuries or any other concerns [facility] Work Phone: Hospital Discharge instructions Additional Instructions Follow up with your primary care doctor and 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 Please call [phone] from 9 A.M. to 4 P.M. for an appointment. [ ][facility] Work Phone: Hospital Discharge instructions Additional Instructions Follow-up with your primary care doctor Return to ED if develop worsening symptoms or [facility] Work Phone: Hospital Discharge instructions Additional Instructions Take Bactrim as prescribed for your Kidney infection. Increase your intake of fluids and rest. Take Zofran as prescribed for nausea vomiting. Follow-up with PCP for recheck next few days.[facility] Work Phone: Hospital Discharge instructions Additional Instructions Take ciprofloxacin as prescribed for your kidney infection. Follow-up with your PCP for recheck in the next few days. Take Motrin Tylenol as needed for painDayton [facility] Work Phone: Hospital Discharge instructions Additional [...] -Follow up with PCP. - Office number [phone]. [facility] Work Phone: Progress note No data available for this section [facility] for visit NarrativeER f/u [facility], med refills, [facility] [employer] Other Discharge Instructions * Instructions* Harvey Palacio [...] with your primary care physician and/or your BOX ICER with regards to your ovarian cyst. Zofran as needed for nausea. If you are unable to tolerate oral intake please return to the emergency department. * Attachments The following attachments cannot be sent through Care Everywhere. * Ovarian Cyst: Ruptured (Bangladeshi) * Pyelonephritis (Bangladeshi) documented in this encounter* Instructions* Demetri Judge, DO - 01/14/2019 You are offered admission however [...] through Care Everywhere. * Nausea and Vomiting (Bangladeshi) documented in this encounter* Instructions* Darrion Hooper, DO - 10/29/2019 THANK YOU!!! From [facility] Emergency Department On behalf of the Emergency Department staff at [facility]'s Emergency Department, I would like to thank you for giving [facility] the opportunity to address your health care needs and concerns. We hope that during your visit, our service was delivered in a professional and caring manner. Please keep [facility] in mind as we walk with you [...] needed for pain. You may also try bqui-oxs-gvkeugf lidocaine patch. * Attachments The following attachments cannot be sent through Care Everywhere. * RICE: General Info (Bangladeshi) documented in this encounter* Instructions* Phi [facility] [...] sent through Care Everywhere. * Kidney Stone (Bangladeshi) documented in this encounter* Instructions* Dale Montoya MD - 03/10/2020 Return to this emergency room immediately if your symptoms persist, worsen or if new ones form. Make sure you follow-up with your primary care doctor within the next 1-2 business days. * Attachments The following attachments cannot be sent through Care Everywhere. * Abdominal Pain (Bangladeshi) documented in this encounter* Discharge Instr - Activity* Andrade Fleming DO - 01/12/2019 2:06 PM EST Dear or Tracie was excused from work secondary to hospitalization from 01/08/2019 through 01/12/2019. * Discharge Instr - Other Orders* Andrade Fleming DO - 01/12/2019 2:10 PM EST Emergency Department [address] [address] 01/12/2019 Patient: Tracie Samuels Date of : 02/24/2019 To Whom It May Concern: Tracie Samuels was seen and treated in the hospital from 01/08/2019-01/12/2019. She may return to work on 01/13/2019. Thank you for your understanding, Signature: Andrade Fleming Jr., DO, MS, RD PGY-1 * Additional Instructions* RufusDarrionDO - 01/12/2019 Please feel free return to [...] Where can you learn more? Go to [email or web address] and sign in to your My True Fit account. Enter E877 in the Search Health Information box to learn more about Kidney Infection: Care Instructions. If you do not have an account, please click on the Sign Up Now link. Current as of: December 26, 2017 Content Version: [id number] [employer]. Care instructions adapted under license by [employer]. If youhave questions about a medical condition or this instruction, always ask your healthcare professional. [employer] disclaims any warranty or liability for your use of this information. * Attachments The following attachments cannot be sent through Care Everywhere. * Pyelonephritis (Bangladeshi) * levofloxacin (oral) (Bangladeshi) * metronidazole (Bangladeshi) * acetaminophen and oxycodone (Bangladeshi) documented in this encounter Assessments Diagnosis Pyelonephritis- [...] No Advanced Directives Records FoundDocuments on File TypeDate RecordedPatient RepresentativeExplanationAdvance Directives and Living WillPower of AttorneyCode StatusDate ActivatedDate InactivatedCommentsFull Code 12/19/2014 8:30 12/22/2014 9:35 AMCode StatusDate ActivatedDate Inactivated CommentsFull Code01/09/2019 3:25 AM01/12/2019 5:55 PMFull Code12/19/2014 8:30 PM 12/22/2014 9:35 AMTypeDate RecordedPatient RepresentativeExplanationACP-Advance DirectiveACP-Power of AttorneyCode StatusDate ActivatedDate InactivatedComments Full Code12/14/2019 3:31 AMFull Code01/09/2019 3:25 AM01/12/2019 5:55 PMCode StatusDate ActivatedDate InactivatedCommentsFull Code12/14/2019 3:31 AM 12/17/2019 3:42 PMCode StatusDate ActivatedDate InactivatedCommentsFull Code 01/09/2019 3:25 AM Advance Directive Response Recorded Date/ Time Advance Directives No November 26, 2016 12:32pm Advance Directive Response Recorded Date/ Time Advance Directives No November 26, 2016 11:32am Date ActivatedDate XdvuuxqcfzoDxrfxmdx19/18/2020 3:31 AM12/17/2019 3:42 PMDate ActivatedDate AtfvwtxranwVyjdkwhs82/14/2019 3:25 AM01/12/2019 5:55 PMDate ActivatedDate SwwarhmkusyUdxltlwn63/24/2015 8:30 12/22/2014 9:35 AM Summary Purpose Family History No Family History Records Found Relationship Condition Age at Onset Recorded Date/T emilie family member Malignant neoplasm Unknown History of ovarian cancerUnknownfamily memberHeart diseaseUnknownFamily history of lung cancerUnknownfatherDiabetes mellitusUnknownHeart diseaseUnknownMalignant neoplasmUnknowngrandparentHeart diseaseUnknownDiabetes mellitusUnknown grandparentMalignant neoplasmUnknownMalignant neoplasm of stomachUnknown grandparentDeceasedUnknowngrandparentDiabetes mellitusUnknownDeceasedUnknownNot SpecifiedMalignant neoplasmUnknownsisterMalignant neoplasmUnknown Relationship Condition Age at Onset Recorded Date/T emilie Not Specified Malignant neoplasm Unknown family memberHistory of ovarian cancerUnknownfamily memberHeart diseaseUnknown family memberFamily history of lung cancerUnknownfatherDiabetes mellitusUnknown Heart diseaseUnknowngrandparentDiabetes mellitusUnknowngrandparentMalignant neoplasm of stomachUnknownsisterHistory of ovarian cancerUnknown Relationship Condition Age at Onset Recorded Date/T emilie Not Specified Malignant neoplasm Unknown auntHistory of ovarian cancerUnknownauntHeart diseaseUnknownauntFamily history of lung cancerUnknownfatherDiabetes mellitusUnknownHeart diseaseUnknown grandparentDiabetes mellitusUnknowngrandparentMalignant neoplasm of stomach UnknownsisterHistory of ovarian cancerUnknown Relationship Condition Age at Onset Recorded Date/T emilie aunt History of ovarian cancer Unknown auntHeart diseaseUnknownauntFamily history of lung cancerUnknownfatherDiabetes mellitusUnknownHeart diseaseUnknowngrandparentDiabetes mellitusUnknown grandparentMalignant neoplasm of stomachUnknownDiabetes mellitusUnknownsister History of ovarian cancerUnknown History of Present Illness * Jennifer Gaston [...] later, she said it doesn't work. Physician honing machine set up operator notified via perfect schoox. * Tracie Rausch RN - 12/17/2019 12:34 AM EDT Pt refusing telemetry, states that the telemetry patches are making her chest all itchy . Pt education provided. Internal med on-call resident notified via perfect schoox. * Ryan Nielson MD - 12/16/2019 12:22 PM EDT [facility] Internal Medicine Teaching Residency Program Inpatient Daily Progress Note Patient: Tracie Samuels Date of : 1990 Acct: [id number] Room: 0440/0440- Admit date: 12/13/2019 Today's date: 12/16/19 Number [...] Infusions: lactated ringers 100 mL/hr at 12/15/19 2116 PRN Medicationsalbuterol sulfate HFA, 2 puff, PRN ondansetron, 4 mg, Q8H PRN sodium chloride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
[2025-02-05] MEDS: KETOROLAC TROMETHAMINE 60 MG/2 ML VIAL IM (18:11)
[2025-02-05 18:34] LABS: Glucose Urine UA NEGATIVE (NEGATIVE)
[2025-02-05 18:41] LABS: Cast Seen? NONE SEEN #/LPF (NONE SEEN); Crystals Seen? None Seen #/HPF (None Seen); Urine Culture Indicated YES-FRMC
[2025-02-05] MEDS: ACETAMINOPHEN 300 MG/ 30 MG CODEINE TABLET 1 TAB PO (19:22)
[2025-02-05] MEDS: CEPHALEXIN 500 MG CAPSULE PO (19:22)
--- NOTE | 2025-02-05 19:28 | PC.NURSE ---
i gave this patient verbal and written discharge orders along with 2 e-scripts, and this patient voices yes to understanding these. at time of discharge this patient voices no concenrs, needs and shows no signs of distress. i informed since you took the pain medication do not operate any automobile, machinery and working tonight
== END 2025-02-05 19:27 | disposition home or self-care (01) ==
PROVIDERS: Emergency Provider Emergency Medicine; PCP Student in an Organized Health Care Education/Training Program
DX: S30.0XXA Contusion of lower back and pelvis, initial encounter (principal); W00.0XXA Fall on same level due to ice and snow, initial encounter; N39.0 Urinary tract infection, site not specified
CPT/HCPCS: 72100; 81001; 87086; 96372; 99284; J1885